=== PATIENT | female | born 1945 | race Hispanic/Latino ===

== ENCOUNTER 2019-03-25 00:47 | Emergency (ER) | payer MEDICARE, BC ==
[~2019-03-25] VITALS: Ht 154.9 cm; Wt 83.5 kg
--- OUTSIDE RECORDS SUMMARY | ~2019-03-25 | XMS | Clinical Summary ---
Demographics + + + | Address | [address] [place] [address] | | | [place], [place] [address] | + + + | Home Phone | | + + + | Preferred Language | Unknown | + + + | Marital Status | D | + + + | Scientologist Affiliation | Unknown | + + + | Race | White | + + + | Ethnic Group | or | + + + Author + + + | Author | [facility] | + + + | Organization | [facility] | + + + | Address | [address] | | | [place] [address] | + + + | Phone | Unavailable | + + + Care Team Providers + + + + | Care Beater Room Supervisor Name | Role | Phone | + + + + Unavailable | Unavailable | + + + + Conditions or Problems +---------+---------+---------+---------+---------+---------+---------+---------+---------+ | Problem | Problem | Onset | Status | Entry | Provide | Comment | Standar | Annotat | | Name | Code | Date | | Date | r | | d | e | | | | | | | | | Descrip | | | | | | | | | | tion | | +---------+---------+---------+---------+---------+---------+---------+---------+---------+ | VOLUME | E86.9 | | Inactiv | | Edward | | Volume | | | DEPLETI | (ICD-10 | /16 | e | /16 | Ottenhe | | depleti | | | ON | -) | | | | sheila MD | | on, | | | UNSPECI | | | | | | | unspeci | | | FIED | | | | | | | fied | | +---------+---------+---------+---------+---------+---------+---------+---------+---------+ | DIABETE | [id number] | | Active | | David | | Periphe | | | S | 05 | /02 | | /02 | [place] | | ral | | | MELLITU | (SNOMED | | | | DO | | circula | | | S, TYPE | CT) | | | | | | tory | | | II | | | | | | | disorde | | | WITH | | | | | | | r | | | PERIPHE | | | | | | | associa | | | RAL | | | | | | | bryce | | | ANGIOPA | | | | | | | with | | | THY, | | | | | | | type 2 | | | WITHOUT | | | | | | | diabete | | | | | | | | | | s | | | GANGREN | | | | | | | mellitu | | | E | | | | | | | s | | +---------+---------+---------+---------+---------+---------+---------+---------+---------+ | NAUSEA | [id number] | | Resolve | | Geetha | | Nausea | | | ALONE | | | d | | Patrick | | | | | | (SNOMED | | | | [facility] | | | | | | CT) | | | | | | | | +---------+---------+---------+---------+---------+---------+---------+---------+---------+ | VACCINA | [id number] | | Resolve | | Geetha | | Medicat | | | TION | 02 | | d | 03 | Patrick | | ion | | | FOR | (SNOMED | | | | [facility] | | given | | | STREP | CT) | | | | | | | | | PNEUMON | | | | | | | | | | IA WITH | | | | | | | | | | | | | | | | | | | | PREVNAR | | | | | | | | | | 13 | | | | | | | | | +---------+---------+---------+---------+---------+---------+---------+---------+---------+ | FLANK | [id number] | | Active | | Geetha | | Flank | | | PAIN | 05 | /01 | | /01 | [place] | | pain | | | | (SNOMED | | | | [facility] | | | | | | CT) | | | | | | | | +---------+---------+---------+---------+---------+---------+---------+---------+---------+ | VACCINA | [id number] | | Removed | | [facility] | | Medicat | | | TION | 02 | /03 | | /03 | [facility] | | ion | | | FOR | (SNOMED | | | | DNP PSYCHOMETRICIAN | | given | | | STREP | CT) | | | | | | | | | PNEUMON | | | | | | | | | | IA WITH | | | | | | | | | | | | | | | | | | | | PREVNAR | | | | | | | | | | 13 | | | | | | | | | +---------+---------+---------+---------+---------+---------+---------+---------+---------+ | OSTEOAR | [id number] | | Active | | Edna | | Osteoar | | | THRITIS | 07 | /16 | | /18 | [facility] | | thritis | | | , KNEE, | (SNOMED | | | | [facility] | | of | | | RIGHT | CT) | | | | | | knee | | +---------+---------+---------+---------+---------+---------+---------+---------+---------+ | CONSTIP | [id number] | | Active | | [facility] | | Constip | | | ATION | 8 | /13 | | /13 | [place] | | ation | | | | (SNOMED | | | | DNP PSYCHOMETRICIAN | | | | | | CT) | | | | | | | | +---------+---------+---------+---------+---------+---------+---------+---------+---------+ | TYPE 2 | E11.21 | | Active | | [facility] | | Type 2 | | | DIABETE | (ICD-10 | /19 | | /19 | [facility] | | diabete | | | S | -CM) | | | | DNP PSYCHOMETRICIAN | | s | | | MELLITU | | | | | | | mellitu | | | S WITH | | | | | | | s with | | | DIABETI | | | | | | | diabeti | | | C | | | | | | | c | | | NEPHROP | | | | | | | nephrop | | | ATHY | | | | | | | athy | | +---------+---------+---------+---------+---------+---------+---------+---------+---------+ | DIABETE | [id number] | | Inactiv | | [facility] | | Type 2 | | | S | 6 | /08 | e | /08 | [place] | | diabete | | | MELLITU | (SNOMED | | | | DNP PSYCHOMETRICIAN | | s | | | S, TYPE | CT) | | | | | | mellitu | | | II, ON | | | | | | | s | | | | | | | | | | | | | INSULIN | | | | | | | | | +---------+---------+---------+---------+---------+---------+---------+---------+---------+ | DEHYDRA | [id number] | | Resolve | | [facility] | | Dehydra | | | TION | 6 | / | d | /08 | [place] | | tion | | | | (SNOMED | | | | DNP PSYCHOMETRICIAN | | | | | | CT) | | | | | | | | +---------+---------+---------+---------+---------+---------+---------+---------+---------+ | DIZZINE | [id number] | | Inactiv | | [facility] | | Dizzine | | | SS | 03 | /08 | e | /08 | [place] | | ss | | | | (SNOMED | | | | DNP PSYCHOMETRICIAN | | | | | | CT) | | | | | | | | +---------+---------+---------+---------+---------+---------+---------+---------+---------+ | ANEMIA | [id number] | | Inactiv | | [facility] | | Anemia | | | | 00 | /10 | e | /10 | [place] | | | | | | (SNOMED | | | | DNP PSYCHOMETRICIAN | | | | | | CT) | | | | | | | | +---------+---------+---------+---------+---------+---------+---------+---------+---------+ | CONSTIP | [id number] | | Inactiv | | [facility] | | Constip | | | ATION | 8 | / | e | /13 | [place] | | ation | | | | (SNOMED | | | | DNP PSYCHOMETRICIAN | | | | | | CT) | | | | | | | | +---------+---------+---------+---------+---------+---------+---------+---------+---------+ | SYNCOPE | [id number] | | Resolve | | [facility] | | Syncope | | | | 07 | /07 | d | /10 | [place] | | | | | | (SNOMED | | | | DNP PSYCHOMETRICIAN | | | | | | CT) | | | | | | | | +---------+---------+---------+---------+---------+---------+---------+---------+---------+ | DYSPHAG | R13.10 | | Resolve | | [facility] | | Dysphag | | | IA | (ICD-10 | / | d | | [place] | | ia, | | | UNSPECI | -CM) | | | | DNP PSYCHOMETRICIAN | | unspeci | | | FIED | | | | | | | fied | | +---------+---------+---------+---------+---------+---------+---------+---------+---------+ | PARESTH | [id number] | | Inactiv | | [facility] | | Paresth | | | ESIA, | | | e | | [place] | | esia of | | | HANDS | (SNOMED | | | | DNP PSYCHOMETRICIAN | | hand | | | | CT) | | | | | | | | +---------+---------+---------+---------+---------+---------+---------+---------+---------+ | DIABETI | [id number] | | Inactiv | | [facility] | | Diabeti | | | C | 06 | | e | | [place] | | c | | | PERIPHE | (SNOMED | | | | DNP PSYCHOMETRICIAN | | periphe | | | RAL | CT) | | | | | | ral | | | NEUROPA | | | | | | | neuropa | | | THY | | | | | | | thy | | +---------+---------+---------+---------+---------+---------+---------+---------+---------+ | DYSPHAG | R13.10 | | Resolve | | [facility] | | Dysphag | | | IA | (ICD-10 | | d | /14 | [place] | | ia, | | | UNSPECI | -CM) | | | | DNP PSYCHOMETRICIAN | | unspeci | | | FIED | | | | | | | fied | | +---------+---------+---------+---------+---------+---------+---------+---------+---------+ | VAGINIT | [id number] | | Resolve | | [facility] | | Vaginit | | | IS | 1 | /31 | d | /31 | [place] | | is | | | | (SNOMED | | | | DNP PSYCHOMETRICIAN | | | | | | CT) | | | | | | | | +---------+---------+---------+---------+---------+---------+---------+---------+---------+ | DYSURIA | [id number] | | Resolve | | [facility] | | Dysuria | | | | 1 | /31 | d | /31 | [place] | | | | | | (SNOMED | | | | DNP PSYCHOMETRICIAN | | | | | | CT) | | | | | | | | +---------+---------+---------+---------+---------+---------+---------+---------+---------+ | EDEMA | [id number] | | Inactiv | | [facility] | | Edema | | | | 08 | | e | / | [place] | | | | | | (SNOMED | | | | DNP PSYCHOMETRICIAN | | | | | | CT) | | | | | | | | +---------+---------+---------+---------+---------+---------+---------+---------+---------+ | RENAL | [id number] | | Inactiv | | [facility] | | Acute | | | FAILURE | | | e | / | [place] | | renal | | | , ACUTE | (SNOMED | | | | DNP PSYCHOMETRICIAN | | failure | | | | CT) | | | | | | | | | | | | | | | | syndrom | | | | | | | | | | e | | +---------+---------+---------+---------+---------+---------+---------+---------+---------+ | DIABETE | [id number] | | Inactiv | | [facility] | | Periphe | | | S | | | e | | [place] | | ral | | | MELLITU | (SNOMED | | | | DNP PSYCHOMETRICIAN | | vascula | | | S, WITH | CT) | | | | | | r | | | | | | | | | | disorde | | | VASCULA | | | | | | | r due | | | R | | | | | | | to | | | COMPLIC | | | | | | | diabete | | | ATIONS | | | | | | | s | | | | | | | | | | mellitu | | | | | | | | | | s | | +---------+---------+---------+---------+---------+---------+---------+---------+---------+ | 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 | | [facility] | | Type 2 | | | ROPATHY | (ICD- | | e | / | [place] | | diabete | | | - | -CM) | | | | DNP PSYCHOMETRICIAN | | s | | | DIABETI | | | | | | | mellitu | | | C | | | | | | | s with | | | | | | | | | | diabeti | | | | | | | | | | c | | | | | | | | | | polyneu | | | | | | | | | | ropathy | | +---------+---------+---------+---------+---------+---------+---------+---------+---------+ | LOCALIZ | [id number] | | Resolve | | [facility] | | Disorde | | | ED | 09 | / | d | / | [place] | | r of | | | SWELLIN | (SNOMED | | | | DNP PSYCHOMETRICIAN | | forearm | | | G ON | CT) | | | | | | | | | BILATER | | | | | | | | | | AL | | | | | | | | | | FOREARM | | | | | | | | | | S | | | | | | | | | +---------+---------+---------+---------+---------+---------+---------+---------+---------+ | UTI | [id number] | | Resolve | | [facility] | | Urinary | | | | 5 | /13 | d | /13 | [place] | | tract | | | | (SNOMED | | | | DNP PSYCHOMETRICIAN | | infecti | | | | CT) | | | | | | ous | | | | | | | | | | disease | | +---------+---------+---------+---------+---------+---------+---------+---------+---------+ | TYPE 2 | E11.21 | | Inactiv | | [facility] | | Type 2 | | | DIABETE | (ICD-10 | / | e | / | [place] | | diabete | | | S | -CM) | | | | DNP PSYCHOMETRICIAN | | s | | | MELLITU | | | | | | | mellitu | | | S WITH | | | | | | | s with | | | DIABETI | | | | | | | diabeti | | | C | | | | | | | c | | | NEPHROP | | | | | | | nephrop | | | ATHY | | | | | | | athy | | +---------+---------+---------+---------+---------+---------+---------+---------+---------+ | DEMENTI | [id number] | | Inactiv | | [facility] | | Procedu | | | A | | | e | | [place] | | re | | | SCREENI | (SNOMED | | | | DNP PSYCHOMETRICIAN | | carried | | | NG | CT) | | | | | | out on | | | | | | | | | | | | | | | | | | | | subject | | +---------+---------+---------+---------+---------+---------+---------+---------+---------+ | CHANGE | [id number] | | Inactiv | | [facility] | | Altered | | | IN | 9 | /13 | e | /13 | [place] | | bowel | | | BOWEL | (SNOMED | | | | DNP PSYCHOMETRICIAN | | functio | | | HABITS | CT) | | | | | | n | | +---------+---------+---------+---------+---------+---------+---------+---------+---------+ | MILD | [id number] | | Inactiv | | [facility] | | Mild | | | COGNITI | | | e | | [place] | | cogniti | | | VE | (SNOMED | | | | DNP PSYCHOMETRICIAN | | ve | | | IMPAIRM | CT) | | | | | | disorde | | | ENT | | | | | | | r | | +---------+---------+---------+---------+---------+---------+---------+---------+---------+ | DIABETE | [id number] | | Inactiv | | [facility] | | Periphe | | | S | [id number] | /11 | e | / | [place] | | ral | | | MELLITU | (SNOMED | | | | DNP PSYCHOMETRICIAN | | neuropa | | | S, TYPE | CT) | | | | | | 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 | | | 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 | | | PERIPHE | | | | | | | diabete | | | RAL | | | | | | | s | | | NEUROPA | | | | | | | | | | THY, | | | | | | | | | | UNCONTR | | | | | | | | | | OLLED | | | | | | | | | +---------+---------+---------+---------+---------+---------+---------+---------+---------+ | IRON | D50.9 | | Active | | Julia | | Iron | | | DEFICIE | (ICD-10 | | | | Gabriele | | deficie | | | NCY | -CM) | | | | | | ncy | | | ANEMIA, | | | | | | | anemia, | | | | | | | | | | | | | UNSPECI | | | | | | | unspeci | | | FIED | | | | | | | fied | | +---------+---------+---------+---------+---------+---------+---------+---------+---------+ | DIABETE | [id number] | | Active | | David Paez | | Periphe | | | S | [id number] | /15 | | /15 | [facility] | | ral | | | MELLITU | (SNOMED | | | | MD FACE | | neuropa | | | S, TYPE | CT) | | | | FACP | | 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 | | | 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 | | | PERIPHE | | | | | | | diabete | | | RAL | | | | | | | s | | | NEUROPA | | | | | | | | | | THY, | | | | | | | | | | UNCONTR | | | | | | | | | | OLLED | | | | | | | | | +---------+---------+---------+---------+---------+---------+---------+---------+---------+ | MUSCLE | [id number] | | Active | | Christen | | Muscle | | | PAIN | 1 | | | / | J. | | pain | | | | (SNOMED | | | | [place] | | | | | | CT) | | | | ta PSYCHOMETRICIAN | | | | +---------+---------+---------+---------+---------+---------+---------+---------+---------+ | DIABETE | [id number] | | Removed | | David W | | Periphe | | | S | [id number] | /11 | | /12 | [facility] | | ral | | | MELLITU | (SNOMED | | | | MD FACE | | neuropa | | | S, TYPE | CT) | | | | FACP | | 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 | | | 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 | | | PERIPHE | | | | | | | diabete | | | RAL | | | | | | | s | | | NEUROPA | | | | | | | | | | THY, | | | | | | | | | | UNCONTR | | | | | | | | | | OLLED | | | | | | | | | +---------+---------+---------+---------+---------+---------+---------+---------+---------+ | MILD | [id number] | | Removed | | Maulik | | Mild | | | COGNITI | 03 | | | | Mendels | | cogniti | | | VE | (SNOMED | | | | on MD | | ve | | | IMPAIRM | CT) | | | | | | disorde | | | ENT | | | | | | | r | | +---------+---------+---------+---------+---------+---------+---------+---------+---------+ | HYSTERE | Z90.710 | | Active | | Maulik | | Acquire | | | CTOMY, | | | | | Mendels | | d | | | SURVEIL | (ICD-10 | | | | on MD | | absence | | | ANDERSON | -CM) | | | | | | of | | | | | | | | | | both | | | | | | | | | | cervix | | | | | | | | | | and | | | | | | | | | | uterus | | +---------+---------+---------+---------+---------+---------+---------+---------+---------+ | COLONIC | [id number] | | Active | | Emeka | | Adenoma | | | | 06 | / | | | Petre | | tous | | | POLYPS, | (SNOMED | | | | MD | | polyp | | | | CT) | | | | | | of | | | ADENOMA | | | | | | | colon | | | TOUS | | | | | | | | | +---------+---------+---------+---------+---------+---------+---------+---------+---------+ | CONSTIP | [id number] | | Removed | | Emeka | | Constip | | | ATION | 8 | / | | / | Petre | | ation | | | | (SNOMED | | | | MD | | | | | | CT) | | | | | | | | +---------+---------+---------+---------+---------+---------+---------+---------+---------+ | CHANGE | [id number] | | Removed | | Emeka | | Altered | | | IN | 9 | /13 | | /13 | Petre | | bowel | | | BOWEL | (SNOMED | | | | MD | | functio | | | HABITS | CT) | | | | | | n | | +---------+---------+---------+---------+---------+---------+---------+---------+---------+ | DECREAS | [id number] | | Active | | Emeka | | Decreas | | | ED | 6 | | | 13 | Petre | | e in | | | APPETIT | (SNOMED | | | | MD | | appetit | | | E | CT) | | | | | | e | | +---------+---------+---------+---------+---------+---------+---------+---------+---------+ | WEIGHT | [id number] | | Active | | Emeka | | Abnorma | | | LOSS | 01 | | | | Petre | | l | | | ABNORMA | (SNOMED | | | | MD | | weight | | | L | CT) | | | | | | loss | | +---------+---------+---------+---------+---------+---------+---------+---------+---------+ | NAUSEA | [id number] | | Removed | | Emeka | | Nausea | | | ALONE | 07 | /13 | | /13 | Petre | | | | | | (SNOMED | | | | MD | | | | | | CT) | | | | | | | | +---------+---------+---------+---------+---------+---------+---------+---------+---------+ | RECTAL | [id number] | | Active | | Emeka | | Rectal | | | BLEEDIN | 2 | | | | Petre | | hemorrh | | | G | (SNOMED | | | | MD | | age | | | | CT) | | | | | | | | +---------+---------+---------+---------+---------+---------+---------+---------+---------+ | DEMENTI | [id number] | | Active | | Christen | | Dementi | | | A | 6 | /10 | | /10 | J. | | a | | | WITHOUT | (SNOMED | | | | [place] | | | | | | CT) | | | | ta PSYCHOMETRICIAN | | | | | BEHAVIO | | | | | | | | | | RAL | | | | | | | | | | DISTURB | | | | | | | | | | ANCE | | | | | | | | | +---------+---------+---------+---------+---------+---------+---------+---------+---------+ | CHRONIC | [id number] | | Active | | Christen | | Chronic | | | | 03 | /10 | | /10 | J. | | | | | PROGRES | (SNOMED | | | | [place] | | progres | | | SIVE | CT) | | | | ta PSYCHOMETRICIAN | | sive | | | RENAL | | | | | | | renal | | | FAILURE | | | | | | | failure | | +---------+---------+---------+---------+---------+---------+---------+---------+---------+ | ANEMIA | [id number] | | Removed | | Christ[facility] | | Anemia | | | | 00 | /10 | | /10 | J. | | | | | | (SNOMED | | | | [place] | | | | | | CT) | | | | ta PSYCHOMETRICIAN | | | | +---------+---------+---------+---------+---------+---------+---------+---------+---------+ | DEMENTI | [id number] | | Removed | | Christen | | Procedu | | | A | 03 | / | | | J. | | re | | | SCREENI | (SNOMED | | | | [place] | | carried | | | NG | CT) | | | | ta PSYCHOMETRICIAN | | out on | | | | | | | | | | | | | | | | | | | | subject | | +---------+---------+---------+---------+---------+---------+---------+---------+---------+ | FALL | [id number] | | Active | | Christen | | At risk | | | RISK | 07 | /21 | | /22 | J. | | for | | | | (SNOMED | | | | [place] | | falls | | | | CT) | | | | ta PSYCHOMETRICIAN | | | | +---------+---------+---------+---------+---------+---------+---------+---------+---------+ | DIABETE | [id number] | | Resolve | | Christen | | Periphe | | | S | [id number] | /14 | d | /15 | J. | | ral | | | MELLITU | (SNOMED | | | | [place] | | neuropa | | | S, TYPE | CT) | | | | ta PSYCHOMETRICIAN | | 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 | | | 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 | | | PERIPHE | | | | | | | diabete | | | RAL | | | | | | | s | | | NEUROPA | | | | | | | | | | THY, | | | | | | | | | | UNCONTR | | | | | | | | | | OLLED | | | | | | | | | +---------+---------+---------+---------+---------+---------+---------+---------+---------+ | CORNS | [id number] | | Inactiv | | Kali | | Corns | | | AND | 00 | / | e | / | [facility] | | and | | | CALLOSI | (SNOMED | | | | DPM | | callus | | | TIES | CT) | | | | | | | | +---------+---------+---------+---------+---------+---------+---------+---------+---------+ | HAMMER | [id number] | | Active | | Kali | | Hammer | | | TOE, | 08 | | | | [facility] | | toe | | | OTHER, | (SNOMED | | | | DPM | | | | | ACQUIRE | CT) | | | | | | | | | D | | | | | | | | | +---------+---------+---------+---------+---------+---------+---------+---------+---------+ | HALLUX | [id number] | | Active | | [facility]ali | | Acquire | | | VALGUS, | | | | | [facility] | | d | | | | (SNOMED | | | | DPM | | hallux | | | ACQUIRE | CT) | | | | | | valgus | | | D | | | | | | | | | +---------+---------+---------+---------+---------+---------+---------+---------+---------+ | POLYNEU | E11.42 | | Removed | | Kali | | 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 | | | | [facility] | | diabete | | | - | -CM) | | | | DPM | | s | | | DIABETI | | | | | | | mellitu | | | C | | | | | | | s with | | | | | | | | | | diabeti | | | | | | | | | | c | | | | | | | | | | polyneu | | | | | | | | | | ropathy | | +---------+---------+---------+---------+---------+---------+---------+---------+---------+ | DIABETE | [id number] | | Removed | | Kali | | Periphe | | | S | 02 | | | | [facility] | | ral | | | MELLITU | (SNOMED | | | | DPM | | vascula | | | S, WITH | CT) | | | | | | r | | | | | | | | | | disorde | | | VASCULA | | | | | | | r due | | | R | | | | | | | to | | | COMPLIC | | | | | | | diabete | | | ATIONS | | | | | | | s | | | | | | | | | | mellitu | | | | | | | | | | s | | +---------+---------+---------+---------+---------+---------+---------+---------+---------+ | ONYCHOM | [id number] | | Active | | Kali | | Onychom | | | YCOSIS | 08 | /01 | | /01 | [facility] | | ycosis | | | | (SNOMED | | | | DPM | | | | | | CT) | | | | | | | | +---------+---------+---------+---------+---------+---------+---------+---------+---------+ | HEARTBU | [id number] | | Active | | Tiesha | | Heartbu | | | RN | 0 | / | | /19 | | | rn | | | | (SNOMED | | | | Maria Isabel | | | | | | CT) | | | | MD | | | | +---------+---------+---------+---------+---------+---------+---------+---------+---------+ | TYPE 2 | [id number] | | Active | | Tiesha | | Disorde | | | DIABETE | 03 | /19 | | /19 | | | r due | | | S | (SNOMED | | | | Maria Isabel | | to type | | | MELLITU | CT) | | | | MD | | 2 | | | S WITH | | | | | | | diabete | | | HYPERGL | | | | | | | s | | | YCEMIA | | | | | | | mellitu | | | | | | | | | | s | | +---------+---------+---------+---------+---------+---------+---------+---------+---------+ | TYPE 2 | E11.21 | | Removed | | Tiesha | | Type 2 | | | DIABETE | (ICD-10 | /19 | | /19 | | | diabete | | | S | -CM) | | | | [place] | | s | | | MELLITU | | | | | MD | | mellitu | | | S WITH | | | | | | | s with | | | DIABETI | | | | | | | diabeti | | | C | | | | | | | c | | | NEPHROP | | | | | | | nephrop | | | ATHY | | | | | | | athy | | +---------+---------+---------+---------+---------+---------+---------+---------+---------+ | UTI | [id number] | | Removed | | [facility] | | Urinary | | | | 5 | /13 | | /13 | [place] | | tract | | | | (SNOMED | | | | auff | | infecti | | | | CT) | | | | PSYCHOMETRICIAN | | ous | | | | | | | | | | disease | | +---------+---------+---------+---------+---------+---------+---------+---------+---------+ | LOCALIZ | [id number] | | Removed | | [place] | | Disorde | | | ED | 09 | | | | [place] | | r of | | | SWELLIN | (SNOMED | | | | RN | | forearm | | | G ON | CT) | | | | | | | | | BILATER | | | | | | | | | | AL | | | | | | | | | | FOREARM | | | | | | | | | | S | | | | | | | | | +---------+---------+---------+---------+---------+---------+---------+---------+---------+ | LIPOMA | [id number] | | Active | | Lauranc | | Lipoma | | | | 2 | /14 | | /14 | e W | | (clinic | | | | (SNOMED | | | | Lila | | al) | | | | CT) | | | | MD | | | | +---------+---------+---------+---------+---------+---------+---------+---------+---------+ | VITAMIN | [id number] | | Active | | David W | | Vitamin | | | D | 6 | /14 | | /15 | [facility] | | D | | | DEFICIE | (SNOMED | | | | MD FACE | | deficie | | | [facility] | CT) | | | | FACP | | ncy | | +---------+---------+---------+---------+---------+---------+---------+---------+---------+ | OBESITY | [id number] | | Active | | David Paez | | Obesity | | | , BMI | 01 | /14 | | /15 | [facility] | | | | | 35-39.9 | (SNOMED | | | | MD FACE | | | | | , ADULT | CT) | | | | FACP | | | | +---------+---------+---------+---------+---------+---------+---------+---------+---------+ | DIABETE | [id number] | | Removed | | David Paez | | Periphe | | | S | [id number] | /14 | | /15 | [facility] | | ral | | | MELLITU | (SNOMED | | | | MD FACE | | neuropa | | | S, TYPE | CT) | | | | FACP | | 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 | | | 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 | | | PERIPHE | | | | | | | diabete | | | RAL | | | | | | | s | | | NEUROPA | | | | | | | | | | THY, | | | | | | | | | | UNCONTR | | | | | | | | | | OLLED | | | | | | | | | +---------+---------+---------+---------+---------+---------+---------+---------+---------+ | HALLUX | [id number] | | Inactiv | | Kali | | Acquire | | | VALGUS, | 1 | / | e | /01 | [facility] | | d | | | | (SNOMED | | | | DPM | | hallux | | | ACQUIRE | CT) | | | | | | valgus | | | D | | | | | | | | | +---------+---------+---------+---------+---------+---------+---------+---------+---------+ | HAMMER | [id number] | | Inactiv | | Kali | | Hammer | | | TOE, | 08 | | e | / | [facility] | | toe | | | OTHER, | (SNOMED | | | | DPM | | | | | ACQUIRE | CT) | | | | | | | | | D | | | | | | | | | +---------+---------+---------+---------+---------+---------+---------+---------+---------+ | ONYCHOM | [id number] | | Inactiv | | Kali | | Onychom | | | YCOSIS | 08 | / | e | / | [facility] | | ycosis | | | | (SNOMED | | | | DPM | | | | | | CT) | | | | | | | | +---------+---------+---------+---------+---------+---------+---------+---------+---------+ | 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 | | Kali | | 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 | / | Palacio | | diabete | | | - | -CM) | | | | DPM | | s | | | DIABETI | | | | | | | mellitu | | | C | | | | | | | s with | | | | | | | | | | diabeti | | | | | | | | | | c | | | | | | | | | | polyneu | | | | | | | | | | ropathy | | +---------+---------+---------+---------+---------+---------+---------+---------+---------+ | DIABETE | [id number] | | Inactiv | | Kali | | Periphe | | | S | 02 | | e | / | Palacio | | ral | | | MELLITU | (SNOMED | | | | DPM | | vascula | | | S, WITH | CT) | | | | | | r | | | | | | | | | | disorde | | | VASCULA | | | | | | | r due | | | R | | | | | | | to | | | COMPLIC | | | | | | | diabete | | | ATIONS | | | | | | | s | | | | | | | | | | mellitu | | | | | | | | | | s | | +---------+---------+---------+---------+---------+---------+---------+---------+---------+ | SCREENI | [id number] | | Resolve | | Lauranc | | Depress | | | NG FOR | 06 | /10 | d | /10 | e W | | ion | | | DEPRESS | (SNOMED | | | | Lila | | screeni | | | ION | CT) | | | | MD | | ng | | +---------+---------+---------+---------+---------+---------+---------+---------+---------+ | SCREENI | [id number] | | Resolve | | Lauranc | | Screeni | | | NG FOR | 05 | /10 | d | /10 | e W | | ng for | | | UNSPECI | (SNOMED | | | | Lila | | disorde | | | FIED | CT) | | | | MD | | r | | | CONDITI | | | | | | | | | | ON | | | | | | | | | +---------+---------+---------+---------+---------+---------+---------+---------+---------+ | SCREENI | [id number] | | Resolve | | Lauranc | | Alcohol | | | NG FOR | 01 | /10 | d | /10 | e W | | | | | ALCOHOL | (SNOMED | | | | Lila | | consump | | | ISM | CT) | | | | MD | | tion | | | | | | | | | | screeni | | | | | | | | | | ng | | +---------+---------+---------+---------+---------+---------+---------+---------+---------+ | SCREENI | [id number] | | Removed | | Geetha | | Alcohol | | | NG FOR | 01 | /10 | | /10 | Patrick | | | | | ALCOHOL | (SNOMED | | | | [facility] | | consump | | | ISM | CT) | | | | | | tion | | | | | | | | | | screeni | | | | | | | | | | ng | | +---------+---------+---------+---------+---------+---------+---------+---------+---------+ | SCREENI | [id number] | | Removed | | Geetha | | Screeni | | | NG FOR | 05 | /10 | | /10 | Patrick | | ng for | | | UNSPECI | (SNOMED | | | | [facility] | | disorde | | | FIED | CT) | | | | | | r | | | CONDITI | | | | | | | | | | ON | | | | | | | | | +---------+---------+---------+---------+---------+---------+---------+---------+---------+ | SCREENI | [id number] | | Removed | 2015/12 | Geetha | | Depress | | | NG FOR | 06 | /10 | | /10 | Patrick | | ion | | | DEPRESS | (SNOMED | | | | [facility] | | screeni | | | ION | CT) | | | | | | ng | | +---------+---------+---------+---------+---------+---------+---------+---------+---------+ | RENAL | [id number] | | Removed | | Lauranc | | Acute | | | FAILURE | 1 | | | | e W | | renal | | | , ACUTE | (SNOMED | | | | Lila | | failure | | | | CT) | | | | MD | | | | | | | | | | | | syndrom | | | | | | | | | | e | | +---------+---------+---------+---------+---------+---------+---------+---------+---------+ | EDEMA | [id number] | | Removed | | Lauranc | | Edema | | | | 08 | / | | / | e W | | | | | | (SNOMED | | | | Lila | | | | | | CT) | | | | MD | | | | +---------+---------+---------+---------+---------+---------+---------+---------+---------+ | RENAL | [id number] | | Active | | Luz | | 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 | | /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 | | | CIENCY | (SNOMED | | | | RN | | | | | | CT) | | | | | | syndrom | | | | | | | | | | e | | +---------+---------+---------+---------+---------+---------+---------+---------+---------+ | PERIPHE | [id number] | | Active | | Lauranc | | Periphe | | | RAL | 06 | /15 | | /15 | e W | | ral | | | VASCULA | (SNOMED | | | | Lila | | vascula | | | R | CT) | | | | MD | | r | | | DISEASE | | | | | | | disease | | +---------+---------+---------+---------+---------+---------+---------+---------+---------+ | CANDIDI | [id number] | | Active | | Susanna | | Candidi | | | ASIS, | 6 | / | | / | Medel | | asis of | | | SKIN | (SNOMED | | | | MD | | skin | | | | CT) | | | | | | | | +---------+---------+---------+---------+---------+---------+---------+---------+---------+ | DYSURIA | [id number] | | Removed | | Erica | | Dysuria | | | | 1 | /31 | | /31 | Paul | | | | | | (SNOMED | | | | MA | | | | | | CT) | | | | | | | | +---------+---------+---------+---------+---------+---------+---------+---------+---------+ | VAGINIT | [id number] | | Removed | | Erica | | Vaginit | | | IS | 1 | / | | / | Paul | | is | | | | (SNOMED | | | | MA | | | | | | CT) | | | | | | | | +---------+---------+---------+---------+---------+---------+---------+---------+---------+ | RLQ | [id number] | | Resolve | | Lauranc | | Right | | | PAIN | 02 | | d | /11 | e W | | lower | | | | (SNOMED | | | | Lila | | quadran | | | | CT) | | | | MD | | t pain | | +---------+---------+---------+---------+---------+---------+---------+---------+---------+ | ABDOMIN | [id number] | | Resolve | | Lauranc | | Abdomin | | | AL | 1 | | d | /11 | e W | | al pain | | | PAIN, | (SNOMED | | | | Lila | | | | | UNSPECI | CT) | | | | MD | | | | | FIED | | | | | | | | | | SITE | | | | | | | | | +---------+---------+---------+---------+---------+---------+---------+---------+---------+ | NEED | Z23 | | Resolve | | Lauranc | | Encount | | | PROPHYL | (ICD-10 | | d | | e W | | er for | | | ACTIC | -CM) | | | | Lila | | immuniz | | | VACCINA | | | | | MD | | ation | | | TION&IN | | | | | | | | | | OCULATI | | | | | | | | | | ON FLU | | | | | | | | | +---------+---------+---------+---------+---------+---------+---------+---------+---------+ | KNEE | [id number] | | Active | | Lauranc | | Knee | | | PAIN | 3 | / | | /14 | e W | | pain | | | | (SNOMED | | | | Lila | | | | | | CT) | | | | MD | | | | +---------+---------+---------+---------+---------+---------+---------+---------+---------+ | Questio | [id number] | | Correct | | Lauranc | | Vertebr | | | n of | 08 | /25 | ion | /25 | e W | | obasila | | | VERTEBR | (SNOMED | | | | Lila | | r | | | OBASILA | CT) | | | | MD | | artery | | | R | | | | | | | syndrom | | | ARTERY | | | | | | | e | | | SYNDROM | | | | | | | | | | E | | | | | | | | | +---------+---------+---------+---------+---------+---------+---------+---------+---------+ | VERTEBR | | | Active | | Lauranc | | Vertebr | | | OBASILA | 08 | /14 | | /14 | e W | | obasila | | | R | (SNOMED | | | | Lila | | r | | | ARTERY | CT) | | | | MD | | artery | | | SYNDROM | | | | | | | 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 | | | | | | | e | | +---------+---------+---------+---------+---------+---------+---------+---------+---------+ | VERTIGO | [id number] | | Active | | Luz | | Vertigo | | | | 01 | /28 | | /03 | Asad | | | | | | (SNOMED | | | | RN | | | | | | CT) | | | | | | | | +---------+---------+---------+---------+---------+---------+---------+---------+---------+ | CHEST | [id number] | | Inactiv | | Genny | | Chest | | | PAIN | 9 | | e | /02 | Kaufman | | pain | | | | (SNOMED | | | | | | | | | | CT) | | | | | | | | +---------+---------+---------+---------+---------+---------+---------+---------+---------+ | CHEST | [id number] | | Inactiv | | Lauranc | | Acute | | | PAIN, | 01 | /14 | e | /14 | e W | | chest | | | ACUTE | (SNOMED | | | | Lila | | pain | | | | CT) | | | | MD | | | | +---------+---------+---------+---------+---------+---------+---------+---------+---------+ | DYSPHAG | R13.10 | | Removed | | Patricia | | Dysphag | | | IA | (ICD-10 | | | /14 | | | ia, | | | UNSPECI | -CM) | | | | Stewart | | unspeci | | | FIED | | | | | [facility] | | fied | | +---------+---------+---------+---------+---------+---------+---------+---------+---------+ | CEREBRO | [id number] | | Active | | Rogers | | Cerebro | | | VASCULA | 0 | / | | | Laith | | vascula | | | R | (SNOMED | | | | MD | | r | | | DISEASE | CT) | | | | | | disease | | +---------+---------+---------+---------+---------+---------+---------+---------+---------+ | History | [id number] | | Active | | Rogers | | Cerebra | | | of | 07 | 16 | | /16 | Laith | | l | | | CEREBRA | (SNOMED | | | | MD | | infarct | | | L | CT) | | | | | | ion due | | | EMBOLIS | | | | | | | to | | | M WITH | | | | | | | embolis | | | CEREBRA | | | | | | | m of | | | L | | | | | | | cerebra | | | INFARCT | | | | | | | l | | | ION | | | | | | | arterie | | | | | | | | | | s | | +---------+---------+---------+---------+---------+---------+---------+---------+---------+ | NEED | Z23 | | Removed | | Lauranc | | Encount | | | PROPHYL | (ICD-10 | | | / | e W | | er for | | | ACTIC | -CM) | | | | Lila | | immuniz | | | VACCINA | | | | | MD | | ation | | | TION&IN | | | | | | | | | | OCULATI | | | | | | | | | | ON FLU | | | | | | | | | +---------+---------+---------+---------+---------+---------+---------+---------+---------+ | DIABETI | [id number] | | Removed | | Rogers | | Diabeti | | | C | | | | | Laith | | c | | | PERIPHE | (SNOMED | | | | MD | | periphe | | | RAL | CT) | | | | | | ral | | | NEUROPA | | | | | | | neuropa | | | THY | | | | | | | thy | | +---------+---------+---------+---------+---------+---------+---------+---------+---------+ | HYPERLI | [id number] | | Active | | Rogers | | Hyperli | | | PIDEMIA | 4 | | | | Laith | | pidemia | | | | (SNOMED | | | | MD | | | | | | CT) | | | | | | | | +---------+---------+---------+---------+---------+---------+---------+---------+---------+ | History | [id number] | | Active | | Rogers | | Brainst | | | of | 05 | /25 | | /25 | Laith | | em | | | BRAIN | (SNOMED | | | | MD | | stroke | | | STEM | CT) | | | | | | syndrom | | | STROKE | | | | | | | e | | +---------+---------+---------+---------+---------+---------+---------+---------+---------+ | CEREBRA | [id number] | | Correct | | Rogers | | Cerebra | | | L | 07 | /16 | ion | /16 | Laith | | l | | | EMBOLIS | (SNOMED | | | | MD | | infarct | | | M WITH | CT) | | | | | | ion due | | | CEREBRA | | | | | | | to | | | L | | | | | | | embolis | | | INFARCT | | | | | | | m of | | | ION | | | | | | | cerebra | | | | | | | | | | l | | | | | | | | | | arterie | | | | | | | | | | s | | +---------+---------+---------+---------+---------+---------+---------+---------+---------+ | ABDOMIN | [id number] | | Removed | | Patricia | | Abdomin | | | AL | 1 | | | /11 | | | al pain | | | PAIN, | (SNOMED | | | | Stewart | | | | | UNSPECI | CT) | | | | [facility] | | | | | FIED | | | | | | | | | | SITE | | | | | | | | | +---------+---------+---------+---------+---------+---------+---------+---------+---------+ | RLQ | [id number] | | Removed | | Patricia | | Right | | | PAIN | 02 | | | /11 | | | lower | | | | (SNOMED | | | | Stewart | | quadran | | | | CT) | | | | [facility] | | t pain | | +---------+---------+---------+---------+---------+---------+---------+---------+---------+ | DYSPHAG | R13.10 | | Removed | | Lauranc | | Dysphag | | | IA | (ICD-10 | | | / | e W | | ia, | | | UNSPECI | -CM) | | | | Lila | | unspeci | | | FIED | | | | | MD | | fied | | +---------+---------+---------+---------+---------+---------+---------+---------+---------+ | CARPAL | [id number] | | Active | | Rogers | | Carpal | | | TUNNEL | 9 | /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 | | | | MD | | 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, LEFT | CT) | | | | | | e | | +---------+---------+---------+---------+---------+---------+---------+---------+---------+ | Questio | [id number] | | Removed | | Rogers | | Vertebr | | | n of | 08 | / | | / | Laith | | obasila | | | VERTEBR | (SNOMED | | | | MD | | r | | | OBASILA | CT) | | | | | | artery | | | R | | | | | | | syndrom | | | ARTERY | | | | | | | e | | | SYNDROM | | | | | | | | | | E | | | | | | | | | +---------+---------+---------+---------+---------+---------+---------+---------+---------+ | GAIT | [id number] | | Active | | Rogers | | Abnorma | | | IMBALAN | 2 | / | | / | Laith | | l gait | | | CE | (SNOMED | | | | MD | | | | | | CT) | | | | | | | | +---------+---------+---------+---------+---------+---------+---------+---------+---------+ | BRAIN | [id number] | | Correct | | Rogers | | Brainst | | | STEM | 05 | | ion | | Laith | | em | | | STROKE | (SNOMED | | | | MD | | stroke | | | | CT) | | | | | | syndrom | | | | | | | | | | e | | +---------+---------+---------+---------+---------+---------+---------+---------+---------+ | PARESTH | [id number] | | Removed | | Rogers | | Paresth | | | ESIA, | | | | | Laith | | esia of | | | HANDS | (SNOMED | | | | MD | | hand | | | | CT) | | | | | | | | +---------+---------+---------+---------+---------+---------+---------+---------+---------+ | PERIPHE | [id number] | | Correct | | Rogers | | Periphe | | | RAL | | | ion | /25 | Laith | | ral | | | NEUROPA | (SNOMED | | | | MD | | nerve | | | THY | CT) | | | | | | disease | | +---------+---------+---------+---------+---------+---------+---------+---------+---------+ | THYROID | [id number] | | Active | | Luz | | Thyroid | | | NODULE | 05 | /20 | | /20 | [place] | | nodule | | | | (SNOMED | | | | [facility] | | | | | | CT) | | | | | | | | +---------+---------+---------+---------+---------+---------+---------+---------+---------+ | TIA | [id number] | | Active | | Lauranc | | Transie | | | | 00 | /07 | | /10 | e W | | nt | | | | (SNOMED | | | | Lila | | cerebra | | | | CT) | | | | MD | | l | | | | | | | | | | ischemi | | | | | | | | | | a | | +---------+---------+---------+---------+---------+---------+---------+---------+---------+ | SYNCOPE | [id number] | | Removed | | Lauranc | | Syncope | | | | 07 | /07 | | /10 | e W | | | | | | (SNOMED | | | | Lila | | | | | | CT) | | | | MD | | | | +---------+---------+---------+---------+---------+---------+---------+---------+---------+ | GASTROP | [id number] | | Active | | Lauranc | | 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 | | | | (SNOMED | | | | Lila | | syndrom | | | | CT) | | | | MD | | e | | +---------+---------+---------+---------+---------+---------+---------+---------+---------+ | CONSTIP | [id number] | | Active | | Lauranc | | Chronic | | | ATION, | | / | | 08 | e W | | | | | CHRONIC | (SNOMED | | | | Lila | | constip | | | | CT) | | | | MD | | ation | | +---------+---------+---------+---------+---------+---------+---------+---------+---------+ | POSTHER | [id number] | | Active | | Lauranc | | Posther | | | 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 | (SNOMED | | | | Lila | | neuralg | | | IA | CT) | | | | MD | | ia | | +---------+---------+---------+---------+---------+---------+---------+---------+---------+ | DIZZINE | [id number] | | Removed | | Lauranc | | Dizzine | | | SS | 03 | /08 | | /08 | e W | | ss | | | | (SNOMED | | | | Lila | | | | | | CT) | | | | MD | | | | +---------+---------+---------+---------+---------+---------+---------+---------+---------+ | DEHYDRA | [id number] | | Removed | | Lauranc | | Dehydra | | | TION | 6 | /08 | | /08 | e W | | tion | | | | (SNOMED | | | | Lila | | | | | | CT) | | | | MD | | | | +---------+---------+---------+---------+---------+---------+---------+---------+---------+ | DIABETE | [id number] | | Removed | | Lauranc | | Type 2 | | | S | 6 | /08 | | /08 | e W | | diabete | | | MELLITU | (SNOMED | | | | Lila | | s | | | S, TYPE | CT) | | | | MD | | mellitu | | | II, ON | | | | | | | s | | | | | | | | | | | | | INSULIN | | | | | | | | | +---------+---------+---------+---------+---------+---------+---------+---------+---------+ | HYPERTE | [id number] | | Active | | Lauranc | | Hyperte | | | NSION | 3 | /08 | | /08 | e W | | nsive | | | | (SNOMED | | | | Lila | | disorde | | | | CT) | | | | MD | | r | | +---------+---------+---------+---------+---------+---------+---------+---------+---------+ Medications + + + + + + + + | Medication | Instructio | Start Date | Stop Date | Generic | NDC | Provider | | | ns | | | Name | | | + + + + + + + + | RELION | Use to | | | INSULIN | [id number] | [facility] | | INSULIN | inject | | | SYRINGE-NE | 2 | Ankur DNP | | SYRINGE | insulin 5 | | | EDLE U-100 | | PSYCHOMETRICIAN | | 31G X | times | | | | | | | 10/09" 0.5 | daily Dx | | | | | | | ML | Code | | | | | | | | E11.40 | | | | | | + + + + + + + + | HUMALOG | 12 Units | | | INSULIN | [id number] | [facility] | | KWIKPEN | before | | | LISPRO | 9 | Ankur DNP | | 100 | meals | | | | | PSYCHOMETRICIAN | | UNIT/ML | SS:150-175 | | | | | | | SOPN | :2U,176-20 | | | | | | | | 0:4U, | | | | | | | | 201-250: | | | | | | | | 6U, | | | | | | | | 251-300: | | | | | | | | 8U, If | | | | | | | | greater | | | | | | | | than 300 | | | | | | | | please | | | | | | | | call. Max | | | | | | | | daily 70 | | | | | | | | units | | | | | | + + + + + + + + | LINZESS | Take one | | | LINACLOTID | [id number] | [facility] | | 145 MCG | tablet | | | E | 0 | Ankur DNP | | CAPS | daily as | | | | | PSYCHOMETRICIAN | | | needed for | | | | | | | | | | | | | | | | constipati | | | | | | | | on. | | | | | | + + + + + + + + | COLACE 100 | 1 pill | | | DOCUSATE | [id number] | [facility] | | MG CAPS | twice | | | SODIUM | 0 | Ankur DNP | | | daily for | | | | | PSYCHOMETRICIAN | | | soft | | | | | | | | stools | | | | | | + + + + + + + + | VITAMIN D | Take one | | | CHOLECALCI | [id number] | [facility] | | 1000 UNIT | tablet | | | FEROL | 1 | Ankur DNP | | TABS | daily in | | | | | PSYCHOMETRICIAN | | | the AM | | | | | | + + + + + + + + | VOLTAREN 1 | apply 3-4 | | | DICLOFENAC | [id number] | [facility] | | % GEL | times QD | | | SODIUM | 7 | Ankur DNP | | | PRN pain, | | | | | PSYCHOMETRICIAN | | | max 4 | | | | | | | | grams per | | | | | | | | applicatio | | | | | | | | n | | | | | | + + + + + + + + | CLONAZEPAM | Take one | | | CLONAZEPAM | [id number] | [facility] | | 0.5 MG | tablet | | | | 1 | Ankur DNP | | TABS | every 24 | | | | | PSYCHOMETRICIAN | | | hours as | | | | | | | | needed for | | | | | | | | anxiety | | | | | | + + + + + + + + | LASIX 80 | 1 tab by | | | FUROSEMIDE | [id number] | [facility] | | MG TABS | mouth one | | | | 5 | Ankur DNP | | | time per | | | | | PSYCHOMETRICIAN | | | day in the | | | | | | | | AM | | | | | | + + + + + + + + | LYRICA 100 | TAKE 1 | | | PREGABALIN | [id number] | [facility] | | MG CAPS | CAPSULE BY | | | | 8 | Ankur DNP | | | MOUTH | | | | | PSYCHOMETRICIAN | | | THREE | | | | | | | | TIMES | | | | | | | | DAILY FOR | | | | | | | | | | | | | | | | NEUROPATHY | | | | | | + + + + + + + + | IRBESARTAN | TAKE 1 | | | IRBESARTAN | [id number] | [facility] | | 300 MG | TABLET BY | | | | 3 | Ankur DNP | | TABS | MOUTH ONCE | | | | | PSYCHOMETRICIAN | | | DAILY | | | | | | + + + + + + + + | EQ STOOL | TAKE 1 | | | DOCUSATE | [id number] | [facility] | | SOFTENER | CAPSULE BY | | | SODIUM | 5 | Ankur DNP | | 100 MG | MOUTH | | | | | PSYCHOMETRICIAN | | CAPS | TWICE | | | | | | | | DAILY FOR | | | | | | | | SOFT | | | | | | | | STOOLS | | | | | | + + + + + + + + | BASAGLAR | INJECT 68 | | | INSULIN | [id number] | [facility] | | KWIKPEN | UNITS | | | GLARGINE | 9 | Ankur DNP | | 100 | SUBCUTANEO | | | | | PSYCHOMETRICIAN | | UNIT/ML | USLY IN | | | | | | | SOPN | THE | | | | | | | | MORNING(34 | | | | | | | | UNITS ON | | | | | | | | EACH SIDE) | | | | | | + + + + + + + + | PANTOPRAZO | Take one | | | PANTOPRAZO | [id number] | [facility] | | LE SODIUM | tablet by | | | LE SODIUM | 8 | Ankur DNP | | 40 MG TBEC | mouth once | | | | | PSYCHOMETRICIAN | | | daily | | | | | | + + + + + + + + | NYSTATIN-T | Apply thin | | | NYSTATIN-T | 9195104976 | [facility] | | RIAMCINOLO | layer to | | | RIAMCINOLO | 5 | Ankur DNP | | NE | affected | | | NE | | PSYCHOMETRICIAN | | 898628-2.1 | area BID | | | | | | | UNIT/GM-% | prn for | | | | | | | CREA | itching | | | | | | + + + + + + + + | LINZESS | Take one | | | LINACLOTID | [id number] | [facility] | | 145 MCG | tablet | | | E | 0 | Ankur DNP | | CAPS | daily for | | | | | PSYCHOMETRICIAN | | | constipati | | | | | | | | on. | | | | | | + + + + + + + + | FUROSEMIDE | TAKE 1 | | | FUROSEMIDE | [id number] | [facility] | | 80 MG | TABLET BY | | | | 5 | Ankur DNP | | TABS | MOUTH ONCE | | | | | PSYCHOMETRICIAN | | | DAILY IN | | | | | | | | THE | | | | | | | | MORNING | | | | | | + + + + + + + + | VOLTAREN 1 | apply 3-4 | | | DICLOFENAC | [id number] | [facility]y | | % GEL | times QD | | | SODIUM | 7 | Attila MD | | | PRN pain, | | | | | | | | max 4 | | | | | | | | grams per | | | | | | | | applicatio | | | | | | | | n | | | | | | + + + + + + + + | VITAMIN D3 | TAKE 1 | | | CHOLECALCI | [id number] | [facility] | | 1000 UNIT | TABLET BY | | | FEROL | 0 | Ankur DNP | | TABS | MOUTH ONCE | | | | | PSYCHOMETRICIAN | | | DAILY IN | | | | | | | | THE | | | | | | | | MORNING | | | | | | + + + + + + + + | ONETOUCH | Use to | | | BLOOD | [id number] | [facility] | | VERIO | test | | | GLUCOSE | 1 | Ankur DNP | | w/Device | glucose | | | MONITORING | | PSYCHOMETRICIAN | | KIT | four times | | | SUPPL | | | | | daily Dx | | | | | | | | 11.65, | | | | | | | | SMITH: 99 | | | | | | | | years | | | | | | + + + + + + + + | RELION | use with | | | BLOOD | [id number] | [facility] | | PRIME | test | | | GLUCOSE | 2 | [facility] | | MONITOR | strips to | | | MONITORING | | | | DYLAN | test BG | | | SUPPL | | | | | daily | | | | | | + + + + + + + + | ONETOUCH | Use strip | | | GLUCOSE | [id number] | [facility] | | ULTRA BLUE | to checl | | | BLOOD | 0 | Ankur DNP | | STRP | glucose | | | | | PSYCHOMETRICIAN | | | four times | | | | | | | | daily. | | | | | | | | Dx: 11.65 | | | | | | | | SMITH: 89 | | | | | | | | years | | | | | | + + + + + + + + | RELION | USE | | | INSULIN | [id number] | [facility] | | INSULIN | SYRINGE 4 | | | SYRINGE-NE | 2 | Ankur DNP | | SYRINGE | TIMES | | | EDLE U-100 | | PSYCHOMETRICIAN | | 31G X | DAILYDx | | | | | | | 10/09" 0.5 | Code | | | | | | | ML | E11.40 | | | | | | + + + + + + + + | BD PEN | USE PEN | | | INSULIN | [id number] | [facility] | | NEEDLE | NEEDLE(S) | | | PEN NEEDLE | 9 | Ankur DNP | | SHORT U/F | 4 TIMES | | | | | PSYCHOMETRICIAN | | 31G X 8 MM | DAILYDx | | | | | | | | Code | | | | | | | | E11.40 | | | | | | + + + + + + + + | ONETOUCH | Use strip | | | GLUCOSE | [id number] | [facility] | | TERRELL STRP | to checl | | | BLOOD | 0 | Ankur DNP | | | glucose | | | | | PSYCHOMETRICIAN | | | four times | | | | | | | | daily. | | | | | | | | Dx: 11.65 | | | | | | | | SMITH: 89 | | | | | | | | years | | | | | | + + + + + + + + | RELION | Use to | | | GLUCOSE | [id number] | [facility] | | BLOOD | check | | | BLOOD | 4 | [facility] | | GLUCOSE | blood | | | | | | | TEST STRP | sugars | | | | | | | | four times | | | | | | | | per day | | | | | | | | DX: | | | | | | | | E11.65 | | | | | | | | SMITH: 99 | | | | | | | | MONTHS | | | | | | + + + + + + + + | IRBESARTAN | Take one | | | IRBESARTAN | [id number] | [facility] | | 300 MG | tablet | | | | 3 | Ankur DNP | | TABS | daily | | | | | PSYCHOMETRICIAN | + + + + + + + + | BD INSULIN | Use to | | | INSULIN | [id number] | [facility] | | SYRINGE | inject | | | SYRINGE-NE | 6 | Ankur DNP | | ULTRAFINE | insulin 5 | | | EDLE U-100 | | PSYCHOMETRICIAN | | 29G X /2" | times per | | | | | | | 0.5 ML | day | | | | | | + + + + + + + + | RELION | Use to | | | GLUCOSE | [id number] | [facility] | | BLOOD | check | | | BLOOD | 4 | Ankur DNP | | GLUCOSE | blood | | | | | PSYCHOMETRICIAN | | TEST STRP | sugars | | | | | | | | four times | | | | | | | | per day | | | | | | | | DX: | | | | | | | | E11.65 | | | | | | | | SMITH: 99 | | | | | | | | MONTHS | | | | | | + + + + + + + + | RELION | use with | | | BLOOD | [id number] | [facility] | | PRIME | test | | | GLUCOSE | 2 | Ankur DNP | | MONITOR | strips to | | | MONITORING | | PSYCHOMETRICIAN | | DYLAN | test BG | | | SUPPL | | | | | daily | | | | | | + + + + + + + + | RELION | use when | | | GLUCOSE | [phone] | [facility] | | BLOOD | testing BG | | | BLOOD | 4 | Ankur DNP | | GLUCOSE | | | | | | PSYCHOMETRICIAN | | TEST STRP | | | | | | | + + + + + + + + | BIOTIN 1 | Take one | | | BIOTIN | [id number] | [facility] | | MG CAPS | daily in | | | | 2 | Prabhakar | | | the AM | | | | | NCMA | + + + + + + + + | BASAGLAR | 68 Units | | | INSULIN | [id number] | [facility] | | KWIKPEN | every | | | GLARGINE | 9 | Ankur DNP | | 100 | morning | | | | | PSYCHOMETRICIAN | | UNIT/ML | (34 units | | | | | | | SOPN | on each | | | | | | | | side) | | | | | | + + + + + + + + | BASAGLAR | 65 Units | | | INSULIN | [id number] | [facility] | | KWIKPEN | every | | | GLARGINE | 9 | Ankur DNP | | 100 | morning | | | | | PSYCHOMETRICIAN | | UNIT/ML | | | | | | | | SOPN | | | | | | | + + + + + + + + | BASAGLAR | 60 Units | | | INSULIN | [id number] | [facility] | | KWIKPEN | every | | | GLARGINE | 9 | Ankur DNP | | 100 | morning | | | | | PSYCHOMETRICIAN | | UNIT/ML | | | | | | | | SOPN | | | | | | | + + + + + + + + | RELION | Use daily | | | GLUCOSE | [id number] | [facility] | | BLOOD | to check | | | BLOOD | 4 | Ankur DNP | | GLUCOSE | blood | | | | | PSYCHOMETRICIAN | | TEST STRP | sugar | | | | | | + + + + + + + + | DIABETIC | 1 pair per | | | DIABETIC | | [facility] | | ORTHOTIC | custom | | | ORTHOTIC | | Ankur DNP | | SHOES | fit from | | | SHOES | | PSYCHOMETRICIAN | | | podiatry | | | | | | | | E11.65, | | | | | | | | e11.21 | | | | | | + + + + + + + + | DIABETIC | 1 pair per | | | FOOT CARE | [phone] | [facility] | | INSOLES | custom | | | PRODUCTS | 1 | Ankur DNP | | | fit from | | | | | PSYCHOMETRICIAN | | | podiatry | | | | | | | | Dx. | | | | | | | | E11.65, | | | | | | | | e11.21 | | | | | | + + + + + + + + | BD INSULIN | Use 5 | | | INSULIN | [id number] | [facility] | | SYRINGE | times | | | SYRINGE-NE | 1 | Ankur DNP | | ULTRAFINE | daily to | | | EDLE U-100 | | PSYCHOMETRICIAN | | 29G X 1/2" | inject | | | | | | | 1 ML | insulin | | | | | | | | Dx: e11.21 | | | | | | | | SMITH: 99 | | | | | | | | months | | | | | | + + + + + + + + | BD PEN | Use daily | | | INSULIN | 9578875977 | [facility] | | NEEDLE | to inject | | | PEN NEEDLE | 0 | Ankur DNP | | ORIGINAL | insulin | | | | | PSYCHOMETRICIAN | | U/F 29G X | | | | | | | | 12.7MM | | | | | | | + + + + + + + + | RELION PEN | | | | INSULIN | [id number] | [facility] | | NEEDLES | | | | PEN NEEDLE | 4 | Ankur DNP | | 31G X 8 MM | | | | | | PSYCHOMETRICIAN | + + + + + + + + | MISC | | | | MISC | | [facility] | | | | | | | | Ankur DNP | | | | | | | | PSYCHOMETRICIAN | + + + + + + + + | NERVE | | | | NERVE | | [facility] | | PAIN | | | | PAIN | | Ankur DNP | | | | | | | | PSYCHOMETRICIAN | + + + + + + + + | HEARTBU | | | | HEARTBU | | [facility] | | RN/NAUSEA* | | | | RN/NAUSEA* | | Ankur DNP | | | | | | | | PSYCHOMETRICIAN | + + + + + + + + | STROKE | | | | STROKE | | [facility] | | PREVENTION | | | | PREVENTION | | Ankur DNP | | | | | | | | PSYCHOMETRICIAN | + + + + + + + + | BLOOD | | | | BLOOD | | [facility] | | PRESSURE | | | | PRESSURE | | Ankur DNP | | * | | | | * | | PSYCHOMETRICIAN | + + + + + + + + | DIABETE | | | | DIABETE | | [facility] | | S | | | | S | | Ankur DNP | | | | | | | | PSYCHOMETRICIAN | + + + + + + + + | MIRALAX | 17 gm | | | POLYETHYLE | [id number] | [facility] | | POWD | daily | | | NE GLYCOL | 2 | Ankur DNP | | | stirred | | | 3350 | | PSYCHOMETRICIAN | | | into 4-8 | | | | | | | | ounces of | | | | | | | | water, | | | | | | | | juice or | | | | | | | | other | | | | | | | | liquid | | | | | | + + + + + + + + | COLACE 100 | 1 pill | | | DOCUSATE | [id number] | [facility] | | MG CAPS | twice | | | SODIUM | 0 | Ankur DNP | | | daily for | | | | | PSYCHOMETRICIAN | | | soft | | | | | | | | stools | | | | | | + + + + + + + + | NOVOLOG | 12 Units | | | INSULIN | [id number] | [facility] | | 100 | before | | | ASPART | 1 | Ankur DNP | | UNIT/ML | meals | | | | | PSYCHOMETRICIAN | | SOLN | SS:150-175 | | | | | | | | :2U,176-20 | | | | | | | | 0:4U, | | | | | | | | 201-250: | | | | | | | | 6U, | | | | | | | | 251-300: | | | | | | | | 8U, If | | | | | | | | greater | | | | | | | | than 300 | | | | | | | | please | | | | | | | | call | | | | | | | | provider | | | | | | + + + + + + + + | LYRICA 100 | 1 capsule | | | PREGABALIN | [id number] | [facility] | | MG CAPS | three | | | | 8 | Ankur DNP | | | times | | | | | PSYCHOMETRICIAN | | | daily for | | | | | | | | neuropathy | | | | | | + + + + + + + + | LYRICA 100 | 1 tab | | | PREGABALIN | 6040399625 | [facility] | | MG CAPS | three | | | | 8 | Ankur DNP | | | times per | | | | | PSYCHOMETRICIAN | | | day. Pt | | | | | | | | states as | | | | | | | | needed | | | | | | + + + + + + + + | PROCHLORPE | Insert one | | | PROCHLORPE | [id number] | [facility] | | RAZINE 25 | | | | RAZINE | 0 | Ankur DNP | | MG SUPP | suppositor | | | | | PSYCHOMETRICIAN | | | y rectally | | | | | | | | every 24 | | | | | | | | hours as | | | | | | | | needed | | | | | | + + + + + + + + | VICTOZA 18 | .6 mg x 1 | | | LIRAGLUTID | [id number] | [facility] | | MG/3ML | week then | | | E | 2 | Ankur DNP | | SOPN | 1.2 mg | | | | | PSYCHOMETRICIAN | | | daily per | | | | | | | | week | | | | | | + + + + + + + + | RELION PEN | | | | INSULIN | 1926799406 | David | | NEEDLES | | | | PEN NEEDLE | 4 | Hoyne DO | | 31G X 8 MM | | | | | | | + + + + + + + + | NOVOLOG | 3U before | | | INSULIN | 2983302140 | Scarlett | | 100 | lunch and | | | ASPART | 1 | Farias | | UNIT/ML | 5U before | | | | | CCMA | | SOLN | Dinner | | | | | | | | SS:150-175 | | | | | | | | :1U,176-20 | | | | | | | | 0:2U, | | | | | | | | 201-225: | | | | | | | | 3U, | | | | | | | | 226-250: | | | | | | | | 4U, | | | | | | | | 251-275: | | | | | | | | 5U, | | | | | | | | 276-300: | | | | | | | | 6U, | | | | | | | | 301-325: | | | | | | | | 7U, | | | | | | | | 326-350: 8 | | | | | | | | U, | | | | | | | | 351-400: | | | | | | | | 9U, over | | | | | | | | 400:10U. | | | | | | + + + + + + + + | LYRICA 100 | 1 tid | | | PREGABALIN | [id number] | Christen Ramirez | | MG CAPS | | | | | 8 | [place] | | | | | | | | PSYCHOMETRICIAN | + + + + + + + + | PROMETHAZI | Take one | | | PROMETHAZI | 5239175345 | [facility] | | NE HCL 25 | tablet by | | | NE HCL | 1 | Hope CCMA | | MG TABS | mouth | | | | | | | | every 4 | | | | | | | | hours as | | | | | | | | needed for | | | | | | | | nausea | | | | | | | | and | | | | | | | | vomiting | | | | | | + + + + + + + + | PROCHLORPE | Insert one | | | PROCHLORPE | 0620179342 | [facility] | | RAZINE 25 | | | | RAZINE | 0 | Charity CCMA | | MG SUPP | suppositor | | | | | | | | y rectally | | | | | | | | every 24 | | | | | | | | hours as | | | | | | | | needed | | | | | | + + + + + + + + | CLONAZEPAM | Take one | | | CLONAZEPAM | [id number] | [facility] | | 0.5 MG | tablet | | | | 1 | Charity PERSAUDA | | TABS | every 24 | | | | | | | | hours as | | | | | | | | needed for | | | | | | | | anxiety | | | | | | + + + + + + + + | PANTOPRAZO | Take one | | | PANTOPRAZO | 8577386313 | [facility] | | LE SODIUM | tablet by | | | LE SODIUM | 8 | Ankur DNP | | 40 MG TBEC | mouth once | | | | | PSYCHOMETRICIAN | | | daily | | | | | | + + + + + + + + | NITROFURAN | Take one | | | NITROFURAN | 2718430459 | [facility] | | TOIN | capsule | | | TOIN | 1 | [facility] | | MONOHYD | every 12 | | | MONOHYD | | | | MACRO 100 | hours | | | MACRO | | | | MG CAPS | until | | | | | | | | completed | | | | | | | | for UTI | | | | | | + + + + + + + + | VICTOZA 18 | .6 mg x 1 | | | LIRAGLUTID | 8849129448 | Christen Ramirez | | MG/3ML | week then | | | E | 2 | [place] | | SOPN | 1.2 mg | | | | | PSYCHOMETRICIAN | | | daily per | | | | | | | | week | | | | | | + + + + + + + + | VICTOZA 18 | Inject 0.6 | | | LIRAGLUTID | [id number] | Christen Escudero. | | MG/3ML | mg daily | | | E | 2 | [place] | | SOPN | | | | | | PSYCHOMETRICIAN | + + + + + + + + | DRAMAMINE | take 1-2 | | | DIMENHYDRI | 6788443603 | Christen Ramirez | | 50 MG TABS | tabs 4 | | | MARCELA | 2 | [place] | | | times per | | | | | PSYCHOMETRICIAN | | | day as | | | | | | | | needed | | | | | | + + + + + + + + | NEURONTIN | take 1 tab | | | GABAPENTIN | 9203222128 | Christen Escudero. | | 300 MG | po tid . | | | | 4 | [place] | | CAPS | Pt states | | | | | PSYCHOMETRICIAN | | | as needed | | | | | | + + + + + + + + | PIOGLITAZO | Take 1 tab | | | PIOGLITAZO | 0210517944 | Christen James | | NE HCL 15 | by mouth | | | NE HCL | 6 | [place] | | MG TABS | one time | | | | | PSYCHOMETRICIAN | | | per day in | | | | | | | | the AM | | | | | | + + + + + + + + | NITROFURAN | Take one | | | NITROFURAN | 2942209047 | [facility] | | TOIN | capsule | | | TOIN | 1 | [facility] | | MONOHYD | every 12 | | | MONOHYD | | | | MACRO 100 | hours | | | MACRO | | | | MG CAPS | until | | | | | | | | completed | | | | | | | | for UTI | | | | | | + + + + + + + + | NITROFURAN | | | | NITROFURAN | 3675813797 | [facility] | | TOIN | | | | TOIN | 1 | [facility] | | MONOHYD | | | | MONOHYD | | | | MACRO 100 | | | | MACRO | | | | MG CAPS | | | | | | | + + + + + + + + | GLIPIZIDE | Take 1 | | | GLIPIZIDE | 3075623114 | [facility] | | XL 2.5 MG | tablet | | | | 1 | Ankur DNP | | [id number] | p.o. | | | | | PSYCHOMETRICIAN | | | q.a.m. | | | | | | + + + + + + + + | NOVOLOG | 3U before | | | INSULIN | 1877191879 | David | | 100 | lunch and | | | ASPART | 1 | Hoyne DO | | UNIT/ML | 5U before | | | | | | | SOLN | Katelynner | | | | | | | | SS:150-175 | | | | | | | | :1U,176-20 | | | | | | | | 0:2U, | | | | | | | | 201-225: | | | | | | | | 3U, | | | | | | | | 226-250: | | | | | | | | 4U, | | | | | | | | 251-275: | | | | | | | | 5U, | | | | | | | | 276-300: | | | | | | | | 6U, | | | | | | | | 301-325: | | | | | | | | 7U, | | | | | | | | 326-350: 8 | | | | | | | | U, | | | | | | | | 351-400: | | | | | | | | 9U, over | | | | | | | | 400:10U | | | | | | + + + + + + + + | HUMALOG | 3U before | | | INSULIN | 9558445309 | Christen J. | | 100 | lunch and | | | LISPRO | 1 | [place] | | UNIT/ML | 5U before | | | | | PSYCHOMETRICIAN | | SOLN | Dinner | | | | | | | | SS:150-175 | | | | | | | | :1U,176-20 | | | | | | | | 0:2U, | | | | | | | | 201-225: | | | | | | | | 3U, | | | | | | | | 226-250: | | | | | | | | 4U, | | | | | | | | 251-275: | | | | | | | | 5U, | | | | | | | | 276-300: | | | | | | | | 6U, | | | | | | | | 301-325: | | | | | | | | 7U, | | | | | | | | 326-350: 8 | | | | | | | | U, | | | | | | | | 351-400: | | | | | | | | 9U, over | | | | | | | | 400:10U | | | | | | + + + + + + + + | HUMALOG | BS <150 - | | | INSULIN | [id number] | Christen Ramirez | | 100 | No insulin | | | LISPRO | 1 | [place] | | UNIT/ML | BS | | | (HUMAN) | | PSYCHOMETRICIAN | | SOLN | 150-200 | | | | | | | | use 3 | | | | | | | | units BS | | | | | | | | 201-250 us | | | | | | | | 4 units | | | | | | | | BS 251-300 | | | | | | | | use 6 | | | | | | | | units BS | | | | | | | | 301-350 | | | | | | | | use 8 | | | | | | | | units BS | | | | | | | | > 350 use | | | | | | | | 10 units | | | | | | | | and call | | | | | | | | PCP | | | | | | + + + + + + + + | BYETTA 5 | Take as | | | EXENATIDE | [id number] | Christen Ramirez | | MCG PEN 5 | directed | | | | 1 | [place] | | MCG/0.02ML | once daily | | | | | PSYCHOMETRICIAN | | SOPN | in the AM | | | | | | + + + + + + + + | BASAGLAR | 1 pen | | | INSULIN | 4264129955 | Christen Ramirez | | KWIKPEN | every 3 | | | GLARGINE | 9 | [place] | | 100 | days 56 | | | | | PSYCHOMETRICIAN | | UNIT/ML | units q | | | | | | | SOPN | Day | | | | | | + + + + + + + + | BASAGLAR | 56 Units | | | INSULIN | 9589849780 | David | | KWIKPEN | every | | | GLARGINE | 9 | Hoyne DO | | 100 | morning | | | | | | | UNIT/ML | | | | | | | | SOPN | | | | | | | + + + + + + + + | VICTOZA 18 | Inject 0.6 | | | LIRAGLUTID | [id number] | Christen J. | | MG/3ML | mg daily | | | E | 2 | [place] | | SOPN | | | | | | PSYCHOMETRICIAN | + + + + + + + + | VICTOZA 18 | 5 unit AM | | | LIRAGLUTID | [id number] | Christen J. | | MG/3ML | and 5 | | | E | 2 | [place] | | SOPN | units PM | | | | | PSYCHOMETRICIAN | + + + + + + + + | BASAGLAR | 1 pen | | | INSULIN | 5589140746 | Christen Ramirez | | KWIKPEN | every 3 | | | GLARGINE | 9 | [place] | | 100 | days 56 | | | | | PSYCHOMETRICIAN | | UNIT/ML | units q | | | | | | | SOPN | Day | | | | | | + + + + + + + + | MECLIZINE | One tab by | | | MECLIZINE | 1870053315 | [facility] | | HCL 25 MG | mouth | | | HCL | 0 | Ankur DNP | | TABS | three | | | | | PSYCHOMETRICIAN | | | times per | | | | | | | | day | | | | | | + + + + + + + + | PEN | Use one | | | PEN | | David | | NEEDLES | pen needle | | | NEEDLES | | Hoyne DO | | FOR | every | | | FOR | | | | BASAGLAR | morning | | | BASAGLAR | | | | KWIKPEN | with | | | KWIKPEN | | | | | Basaglar | | | | | | | | Kwikpen | | | | | | + + + + + + + + | BASAGLAR | 56 Units | | | INSULIN | [id number] | Christen Ramirez | | KWIKPEN | by mouth | | | GLARGINE | 9 | [place] | | 100 | every | | | | | PSYCHOMETRICIAN | | UNIT/ML | morning | | | | | | | SOPN | | | | | | | + + + + + + + + | SUPREP | mix and | | | NA | [phone] | Maulik | | BOWEL PREP | drink one | | | SULFATE-K | 1 | Lilia | | KIT | bottle at | | | SULFATE-MG | | MD | | 17.5-3.13- | 5pm day | | | SULF | | | | 1.6 | before | | | | | | | GM/177ML | procedure. | | | | | | | SOLN | mix and | | | | | | | | drink 2nd | | | | | | | | bottle 4 | | | | | | | | hours | | | | | | | | before | | | | | | | | check in | | | | | | | | time. | | | | | | + + + + + + + + | SUPREP | mix and | | | NA | [phone] | Emeka | | BOWEL PREP | drink one | | | SULFATE-K | 1 | Petre MD | | KIT | bottle at | | | SULFATE-MG | | | | 17.5-3.13- | 5pm day | | | SULF | | | | 1.6 | before | | | | | | | GM/177ML | procedure. | | | | | | | SOLN | mix and | | | | | | | | drink 2nd | | | | | | | | bottle 4 | | | | | | | | hours | | | | | | | | before | | | | | | | | check in | | | | | | | | time. | | | | | | + + + + + + + + | COLACE 100 | 1 pill BID | | | DOCUSATE | [id number] | [facility] | | MG CAPS | | | | SODIUM | 0 | Ankur DNP | | | | | | | | PSYCHOMETRICIAN | + + + + + + + + | RELION | Use daily | | | GLUCOSE | 8455083617 | Tiesha | | BLOOD | to check | | | BLOOD | 4 | Maria Isabel MD | | GLUCOSE | blood | | | | | | | TEST STRP | sugar | | | | | | + + + + + + + + | DIABETIC | 1 pair per | | | DIABETIC | | Tiesha | | ORTHOTIC | custom | | | ORTHOTIC | | [place] MD | | SHOES | fit from | | | SHOES | | | | | podiatry | | | | | | | | E11.65, | | | | | | | | e11.21 | | | | | | + + + + + + + + | DIABETIC | 1 pair per | | | FOOT CARE | [id number] | Tiesha | | INSOLES | custom | | | PRODUCTS | 1 | Maria Isabel MD | | | fit from | | | | | | | | podiatry | | | | | | | | Dx. | | | | | | | | E11.65, | | | | | | | | e11.21 | | | | | | + + + + + + + + | KEFLEX 500 | 1 pill | | | CEPHALEXIN | 2819362838 | Tiesha | | MG CAPS | twice a | | | | 1 | [place] MD | | | day for 7 | | | | | | | | days | | | | | | + + + + + + + + | BD INSULIN | Use 5 | | | INSULIN | 8820773374 | [facility] | | SYRINGE | times | | | SYRINGE-NE | 1 | Ankur DNP | | ULTRAFINE | daily to | | | EDLE U-100 | | PSYCHOMETRICIAN | | 29G X /2" | inject | | | | | | | 1 ML | insulin | | | | | | | | Dx: e11.21 | | | | | | | | SMITH: 99 | | | | | | | | months | | | | | | + + + + + + + + | LANTUS 100 | 56 units | | | INSULIN | 0193272785 | Kaykay | | UNIT/ML | qAM | | | GLARGINE | 3 | Mora DO | | GEOVANI | | | | | | | + + + + + + + + | KEFLEX 500 | 1 pill | | | CEPHALEXIN | 9710214229 | Pako | | MG CAPS | twice a | | | | 1 | Middlekauf | | | day for 7 | | | | | f PSYCHOMETRICIAN | | | days | | | | | | + + + + + + + + | LANTUS 100 | 50 units | | | INSULIN | 8910180484 | [facility] | | UNIT/ML | once per | | | GLARGINE | 3 | [place] | | SOLN | day. Pt | | | | | f PSYCHOMETRICIAN | | | states she | | | | | | | | is taking | | | | | | | | 56 units | | | | | | | | every AM | | | | | | + + + + + + + + | BIOTIN 1 | Take one | | | BIOTIN | 4501489167 | [facility] | | MG CAPS | daily in | | | | 2 | Ankur DNP | | | the AM | | | | | PSYCHOMETRICIAN | + + + + + + + + | VICTOZA 18 | | | | LIRAGLUTID | [id number] | Jesus | | MG/3ML | | | | E | 2 | Ethan MD | | SOPN | | | | | | | + + + + + + + + | BYETTA 5 | Take as | | | EXENATIDE | 4421982316 | Christen Ramirez | | MCG PEN 5 | directed | | | | 1 | [place] | | MCG/0.02ML | once daily | | | | | PSYCHOMETRICIAN | | SOPN | in the AM | | | | | | + + + + + + + + | VITAMIN D | Take one | | | CHOLECALCI | 2459372872 | [facility] | | 1000 UNIT | tablet | | | FEROL | 1 | Ankur DNP | | TABS | daily in | | | | | PSYCHOMETRICIAN | | | the AM | | | | | | + + + + + + + + | POTASSIUM | Take one | | | POTASSIUM | 6669856459 | [facility] | | CHLORIDE | cap daily | | | CHLORIDE | 1 | Ankur DNP | | ER 10 MEQ | in the AM | | | | | PSYCHOMETRICIAN | | CR-CAPS | | | | | | | + + + + + + + + | NEURONTIN | take 1 tab | | | GABAPENTIN | 8148466679 | Jesus | | 300 MG | po tid . | | | | 4 | Ethna MD | | CAPS | Pt states | | | | | | | | as needed | | | | | | + + + + + + + + | LASIX 80 | 1 tab by | | | FUROSEMIDE | 0283061159 | [facility] | | MG TABS | mouth one | | | | 5 | Ankur DNP | | | time per | | | | | PSYCHOMETRICIAN | | | day in the | | | | | | | | AM | | | | | | + + + + + + + + | LYRICA 100 | 1 tab | | | PREGABALIN | 3395787543 | Christen Escudero. | | MG CAPS | three | | | | 8 | [place] | | | times per | | | | | PSYCHOMETRICIAN | | | day. Pt | | | | | | | | states as | | | | | | | | needed | | | | | | + + + + + + + + | OMEPRAZOLE | Take one | | | OMEPRAZOLE | 0465745800 | [facility] | | 40 MG | by mouth | | | | 0 | Ankur DNP | | CPDR | one time | | | | | PSYCHOMETRICIAN | | | per day | | | | | | | | 30-60 | | | | | | | | minutes | | | | | | | | before | | | | | | | | breakfast | | | | | | | | as needed | | | | | | + + + + + + + + | PLAVIX 75 | 1 tab by | | | CLOPIDOGRE | 9976790755 | [facility] | | MG TABS | mouth one | | | L | 1 | Ankur DNP | | | time per | | | BISULFATE | | PSYCHOMETRICIAN | | | day in the | | | | | | | | evening | | | | | | + + + + + + + + | LIPITOR 20 | take 1 | | | ATORVASTAT | 7692415860 | [facility] | | MG TABS | tablet by | | | IN CALCIUM | 3 | Ankur DNP | | | mouth | | | | | PSYCHOMETRICIAN | | | daily in | | | | | | | | the | | | | | | | | evening | | | | | | + + + + + + + + | VALSARTAN | Take one | | | VALSARTAN | 3075139225 | [facility] | | 160 MG | tablet | | | | 7 | Ankur DNP | | TABS | daily in | | | | | PSYCHOMETRICIAN | | | the AM | | | | | | + + + + + + + + | PIOGLITAZO | Take 1 tab | | | PIOGLITAZO | 7665491597 | Jesus | | NE HCL 15 | by mouth | | | NE HCL | 6 | Ethan MD | | MG TABS | one time | | | | | | | | per day in | | | | | | | | the AM | | | | | | + + + + + + + + | LANTUS 100 | 25 units | | | INSULIN | 1768970534 | Jesus | | UNIT/ML | two times | | | GLARGINE | 3 | Ethan MD | | SOLN | per day. | | | | | | | | Pt states | | | | | | | | she is | | | | | | | | taking 56 | | | | | | | | units | | | | | | | | every AM | | | | | | + + + + + + + + | VICTOZA 18 | | | | LIRAGLUTID | [id number] | Bailey W | | MG/3ML | | | | E | 2 | Lila MD | | SOPN | | | | | | | + + + + + + + + | BYETTA 5 | 0.02 ml | | | EXENATIDE | 5593547275 | Bailey W | | MCG PEN 5 | injection | | | | 1 | Lila MD | | MCG/0.02ML | two times | | | | | | | SOPN | per day | | | | | | + + + + + + + + | DRAMAMINE | take 1-2 | | | DIMENHYDRI | 3207202604 | Bailey W | | 50 MG TABS | tabs 4 | | | MARCELA | 2 | Lila MD | | | times per | | | | | | | | day as | | | | | | | | needed | | | | | | + + + + + + + + | BIOTIN 1 | | | | BIOTIN | [id number] | Kali | | MG CAPS | | | | | 2 | Hakeem DPM | + + + + + + + + | VITAMIN D | | | | CHOLECALCI | [id number] | Kali | | 1000 UNIT | | | | FEROL | 1 | Hakeem DPM | | TABS | | | | | | | + + + + + + + + | POTASSIUM | | | | POTASSIUM | [id number] | Kali | | CHLORIDE | | | | CHLORIDE | 1 | Palacio DPM | | ER 10 MEQ | | | | | | | | CR-CAPS | | | | | | | + + + + + + + + | BUSPIRONE | 1 TAB | | | BUSPIRONE | [id number] | Kali | | HCL 7.5 MG | three | | | HCL | 1 | Palacio DPM | | TABS | times per | | | | | | | | day | | | | | | + + + + + + + + | COLACE 100 | 1 tab by | | | DOCUSATE | [id number] | Kali | | MG CAPS | mouth | | | SODIUM | 0 | Palacio DPM | | | daily at | | | | | | | | bedtime | | | | | | + + + + + + + + | RELION | Use to | | | GLUCOSE | [id number] | Kali | | BLOOD | test BG | | | BLOOD | 4 | Palacio DPM | | GLUCOSE | one time | | | | | | | TEST STRP | per day | | | | | | + + + + + + + + | ONDANSETRO | 1 tab | | | ONDANSETRO | [id number] | Kali | | N HCL 4 MG | every 4 | | | N HCL | 3 | Hakeem DPM | | TABS | hours | | | | | | + + + + + + + + | CILOSTAZOL | 1 tab two | | | CILOSTAZOL | [id number] | Kali | | 100 MG | times per | | | | 1 | Hakeem DPM | | TABS | day | | | | | | + + + + + + + + | LANTUS 100 | 25 units | | | INSULIN | [id number] | Laurance W | | UNIT/ML | two times | | | GLARGINE | 3 | Lila MD | | SOLN | per day | | | | | | + + + + + + + + | NEURONTIN | take 1 tab | | | GABAPENTIN | [id number] | Laurance W | | 300 MG | po tid | | | | 4 | Lila MD | | CAPS | | | | | | | + + + + + + + + | CLINDAMYCI | take 1 cap | | | CLINDAMYCI | | Laurance W | | N 300 MG | po q 6 | | | N 300 MG | | Lila MD | | CAP | hrs for 7 | | | CAP | | | | | days | | | | | | + + + + + + + + | LASIX 80 | 1 tab by | | | FUROSEMIDE | [id number] | Laurance W | | MG TABS | mouth one | | | | 5 | Lila MD | | | time per | | | | | | | | day | | | | | | + + + + + + + + | FUROSEMIDE | 1 tab one | | | FUROSEMIDE | [id number] | Laurance W | | 40 MG | time per | | | | 5 | Lila MD | | TABS | day | | | | | | + + + + + + + + | BUSPIRONE | 1 TAB | | | BUSPIRONE | [id number] | Laurance W | | HCL 7.5 MG | three | | | HCL | 1 | Lila MD | | TABS | times per | | | | | | | | day | | | | | | + + + + + + + + | COLACE 100 | 1 tab by | | | DOCUSATE | [id number] | Laurance W | | MG CAPS | mouth | | | SODIUM | 0 | Lila MD | | | daily at | | | | | | | | bedtime | | | | | | + + + + + + + + | LYRICA 100 | 1 tab | | | PREGABALIN | [id number] | Laurance W | | MG CAPS | three | | | | 8 | Lila MD | | | times per | | | | | | | | day | | | | | | + + + + + + + + | GABAPENTIN | Take 2 | | | GABAPENTIN | [id number] | Laurance W | | 300 MG | capsules | | | | 5 | Lila MD | | CAPS | in the | | | | | | | | morning, 2 | | | | | | | | capsules | | | | | | | | in the | | | | | | | | evening, | | | | | | | | and 3 | | | | | | | | capsules | | | | | | | | at bedtime | | | | | | + + + + + + + + | BACTRIM DS | 1 by mouth | | | TRIMETHOPR | [id number] | Laurance W | | 800-160 | twice a | | | IM-SULFAME | 1 | Lila MD | | MG TABS | day for 3 | | | THOXAZOLE | | | | | days | | | | | | + + + + + + + + | BACTRIM DS | 1 by mouth | | | TRIMETHOPR | [id number] | Laurance W | | 800-160 | twice a | | | IM-SULFAME | 1 | Lila MD | | MG TABS | day for 3 | | | THOXAZOLE | | | | | days | | | | | | + + + + + + + + | CLINDAMYCI | take 1 cap | | | CLINDAMYCI | | Laurance W | | N 300 MG | po q 6 | | | N 300 MG | | Lila MD | | CAP | hrs for 7 | | | CAP | | | | | days | | | | | | + + + + + + + + | MECLIZINE | 1 tab | | | MECLIZINE | [id number] | Laurance W | | HCL 25 MG | three | | | HCL | 0 | Lila MD | | TABS | times per | | | | | | | | day | | | | | | + + + + + + + + | GLUCOPHAGE | 1 tab one | | | METFORMIN | [id number] | Laurance W | | XR 500 MG | time per | | | HCL | 3 | Lila MD | | [id number]-MFL | day | | | | | | + + + + + + + + | BD INSULIN | Use 5 | | | INSULIN | [id number] | Bailey W | | SYRINGE | times | | | SYRINGE-NE | 1 | Lila MD | | ULTRAFINE | daily to | | | EDLE U-100 | | | | 29G X 05/28" | inject | | | | | | | 1 ML | insulin | | | | | | | | Dx: 250.00 | | | | | | | | SMITH: 99 | | | | | | | | months | | | | | | + + + + + + + + | MISC | | | | MISC | | Laurance W | | | | | | | | Lila MD | + + + + + + + + | NERVE | | | | NERVE | | Laurance W | | PAIN | | | | PAIN | | Lila MD | + + + + + + + + | HEARTBU | | | | HEARTBU | | Laurance W | | RN/NAUSEA* | | | | RN/NAUSEA* | | Lila MD | | | | | | | | | + + + + + + + + | STROKE | | | | STROKE | | Laurance W | | PREVENTION | | | | PREVENTION | | Lila MD | | | | | | | | | + + + + + + + + | BLOOD | | | | BLOOD | | Laurance W | | PRESSURE | | | | PRESSURE | | Lila MD | | * | | | | * | | | + + + + + + + + | DIABETE | | | | DIABETE | | Bailey W | | S | | | | S | | Lila MD | + + + + + + + + | LYRICA 50 | Take 1 tab | | | PREGABALIN | [id number] | Bailey W | | MG CAPS | by mouth | | | | 8 | Lila MD | | | three | | | | | | | | times per | | | | | | | | day | | | | | | + + + + + + + + | BD PEN | Use daily | | | INSULIN | [id number] | Ambrose | | NEEDLE | to inject | | | PEN NEEDLE | 0 | Ankur DNP | | ORIGINAL | insulin | | | | | PSYCHOMETRICIAN | | U/F 29G X | | | | | | | | 12.7MM | | | | | | | + + + + + + + + | PIOGLITAZO | Take 1 tab | | | PIOGLITAZO | [id number] | Laurance W | | NE HCL 15 | by mouth | | | NE HCL | 6 | Lila MD | | MG TABS | one time | | | | | | | | per day | | | | | | + + + + + + + + | FLUCONAZOL | take one | | | FLUCONAZOL | [id number] | Laurance W | | E 150 MG | tablet PO | | | E | 1 | Lila MD | | TABS | x 1 repeat | | | | | | | | in 3 days | | | | | | + + + + + + + + | LYRICA 50 | TAKE ONE | | | PREGABALIN | [id number] | Kesha | | MG CAPS | CAPSULE BY | | | | 8 | Eric | | | MOUTH | | | | | CCMA | | | THREE | | | | | | | | TIMES | | | | | | | | DAILY | | | | | | + + + + + + + + | GABAPENTIN | Take 2 | | | GABAPENTIN | [id number] | Laurance W | | 300 MG | capsules | | | | 5 | Lila MD | | CAPS | in the | | | | | | | | morning, 2 | | | | | | | | capsules | | | | | | | | in the | | | | | | | | evening, | | | | | | | | and 3 | | | | | | | | capsules | | | | | | | | at bedtime | | | | | | + + + + + + + + | BYETTA 5 | 0.02 ml | | | EXENATIDE | [id number] | Bailey W | | MCG PEN 5 | injection | | | | 1 | Lila MD | | MCG/0.02ML | two times | | | | | | | SOPN | per day | | | | | | + + + + + + + + | BYETTA 5 | 0.2 ml | | | EXENATIDE | [id number] | Bailey W | | MCG PEN 5 | injection | | | | 1 | Lila MD | | MCG/0.02ML | two times | | | | | | | SOPN | per day | | | | | | + + + + + + + + | LYRICA 50 | TAKE ONE | | | PREGABALIN | [id number] | Bailey W | | MG CAPS | CAPSULE BY | | | | 8 | Lila MD | | | MOUTH | | | | | | | | THREE | | | | | | | | TIMES | | | | | | | | DAILY | | | | | | + + + + + + + + | MECLIZINE | 1 tab | | | MECLIZINE | [id number] | Laurance W | | HCL 25 MG | three | | | HCL | 0 | Lila MD | | TABS | times per | | | | | | | | day | | | | | | + + + + + + + + | CILOSTAZOL | 1 tab two | | | CILOSTAZOL | [id number] | Laurance W | | 100 MG | times per | | | | 1 | Lila MD | | TABS | day | | | | | | + + + + + + + + | ONDANSETRO | 1 tab | | | ONDANSETRO | [id number] | Laurance W | | N HCL 4 MG | every 4 | | | N HCL | 3 | Lila MD | | TABS | hours | | | | | | + + + + + + + + | LYRICA 50 | 1 tab | | | PREGABALIN | [id number] | Laurance W | | MG CAPS | three | | | | 8 | Lila MD | | | times per | | | | | | | | day | | | | | | + + + + + + + + | KEFLEX 500 | one po TID | | | CEPHALEXIN | [id number] | Susanna | | MG CAPS | | | | | 1 | Gianfranco MD | + + + + + + + + | NYSTATIN-T | Apply thin | | | NYSTATIN-T | [id number] | Ambrose | | RIAMCINOLO | layer to | | | RIAMCINOLO | 5 | Ankur DNP | | NE | affected | | | NE | | PSYCHOMETRICIAN | | 310125-6.1 | area BID | | | | | | | UNIT/GM-% | prn for | | | | | | | CREA | itching | | | | | | + + + + + + + + | FLUCONAZOL | take one | | | FLUCONAZOL | [id number] | Susanna | | E 150 MG | tablet PO | | | E | 1 | Gianfranco LUIS | | TABS | x 1 repeat | | | | | | | | in 3 days | | | | | | + + + + + + + + | ASPIRIN | take 1 | | | ASPIRIN | [id number] | Bailey W | | 325 MG | tablet by | | | | 1 | Lila LUIS | | TABS | mouth | | | | | | | | daily for | | | | | | | | stroke | | | | | | | | prevention | | | | | | | | . | | | | | | + + + + + + + + | PLAVIX 75 | 1 tab by | | | CLOPIDOGRE | [id number] | Laurance W | | MG TABS | mouth one | | | L | 1 | Lila MD | | | time per | | | BISULFATE | | | | | day | | | | | | + + + + + + + + | LYRICA 50 | 1 tab | | | PREGABALIN | [id number] | Laurance W | | MG CAPS | three | | | | 8 | Lila MD | | | times per | | | | | | | | day | | | | | | + + + + + + + + | GLUCOPHAGE | 1 tab one | | | METFORMIN | 6857710467 | Laurance W | | XR 500 MG | time per | | | HCL | 3 | Lila MD | | [id number] | day | | | | | | + + + + + + + + | MECLIZINE | One tab by | | | MECLIZINE | [id number] | Laurance W | | HCL 25 MG | mouth | | | HCL | 0 | Lila MD | | TABS | every 6 | | | | | | | | hours as | | | | | | | | needed | | | | | | + + + + + + + + | RIOMET 500 | 10ml's two | | | METFORMIN | [id number] | Laurance W | | MG/5ML | times per | | | HCL | 1 | Lila MD | | SOLN | day. | | | | | | | | Liquid | | | | | | | | form due | | | | | | | | to | | | | | | | | dysphagia | | | | | | + + + + + + + + | GABAPENTIN | Take 2 | | | GABAPENTIN | [id number] | Laurance W | | 300 MG | capsules | | | | 5 | Lila MD | | CAPS | in the | | | | | | | | morning, 2 | | | | | | | | capsules | | | | | | | | in the | | | | | | | | evening, | | | | | | | | and 3 | | | | | | | | capsules | | | | | | | | at bedtime | | | | | | + + + + + + + + | VALSARTAN | 1 TAB one | | | VALSARTAN | [id number] | Bailey W | | 160 MG | time per | | | | 8 | Lila MD | | TABS | day | | | | | | + + + + + + + + | DULOXETINE | 1 tab one | | | DULOXETINE | [id number] | Franciscoance W | | HCL 30 MG | time per | | | HCL | 6 | Lila MD | | CPEP | day | | | | | | + + + + + + + + | GABAPENTIN | take 2 | | | GABAPENTIN | [id number] | Laurance W | | 300 MG | caps in | | | | 5 | Lila MD | | CAPS | am, 2 caps | | | | | | | | in pm and | | | | | | | | 3 caps at | | | | | | | | bedtime. | | | | | | + + + + + + + + | DULOXETINE | 1 tab one | | | DULOXETINE | [id number] | Laurance W | | HCL 30 MG | time per | | | HCL | 6 | Lila MD | | CPEP | day | | | | | | + + + + + + + + | VICTOZA 18 | 1.2 mg | | | LIRAGLUTID | 5983414981 | Laurance W | | MG/3ML | injected | | | E | 2 | Lila MD | | SOPN | martin | | | | | | + + + + + + + + | DIOVAN 320 | 1 TAB one | | | VALSARTAN | 5833279168 | Laurance W | | MG TABS | time per | | | | 4 | Lila MD | | | day | | | | | | + + + + + + + + | MECLIZINE | One tab by | | | MECLIZINE | [id number] | Bailey W | | HCL 25 MG | mouth | | | HCL | 0 | Lila MD | | TABS | every 6 | | | | | | | | hours as | | | | | | | | needed | | | | | | + + + + + + + + | DIOVAN 160 | one time | | | VALSARTAN | 8511212111 | Mariano | | MG TABS | per day | | | | 4 | Ariella | | | | | | | | CCMA | + + + + + + + + | GABAPENTIN | take 2 | | | GABAPENTIN | 5106247054 | Mariano | | 300 MG | caps in | | | | 5 | Ariella | | CAPS | am, 2 caps | | | | | CCMA | | | in pm and | | | | | | | | 3 caps at | | | | | | | | bedtime. | | | | | | + + + + + + + + | OMEPRAZOLE | Take one | | | OMEPRAZOLE | [id number] | Laurance W | | 40 MG | by mouth | | | | 0 | Lila MD | | CPDR | one time | | | | | | | | per day | | | | | | | | 30-60 | | | | | | | | minutes | | | | | | | | before | | | | | | | | breakfast | | | | | | + + + + + + + + | CIPRO | 1 p.o. bid | | | CIPRO | | Laurance W | | | unknown | | | | | Lila MD | | | strength | | | | | | + + + + + + + + | GABAPENTIN | take 2 | | | GABAPENTIN | [id number] | Laurance W | | 300 MG | caps in | | | | 5 | Lila MD | | CAPS | am, 2 caps | | | | | | | | in pm and | | | | | | | | 3 caps at | | | | | | | | bedtime. | | | | | | + + + + + + + + | MECLIZINE | two times | | | MECLIZINE | [id number] | Laurance W | | HCL 25 MG | per day | | | HCL | 0 | Lila MD | | TABS | | | | | | | + + + + + + + + | DIOVAN 320 | 1 tab one | | | VALSARTAN | [id number] | Laurance W | | MG TABS | time per | | | | 4 | Lila MD | | | day | | | | | | + + + + + + + + | VICTOZA 18 | 0.6 mg | | | LIRAGLUTID | [id number] | Laurance W | | MG/3ML | injected | | | E | 2 | Lila MD | | SOPN | daily X 1 | | | | | | | | week 1.2 | | | | | | | | mg | | | | | | | | injected | | | | | | | | martin | | | | | | + + + + + + + + | ASPIRIN | take 1 | | | ASPIRIN | [id number] | Rogers | | 325 MG | tablet by | | | | 1 | Laith LUIS | | TABS | mouth | | | | | | | | daily for | | | | | | | | stroke | | | | | | | | prevention | | | | | | | | . | | | | | | + + + + + + + + | JANUVIA | 1 tab one | | | SITAGLIPTI | 5300376166 | Bailey W | | 100 MG | time per | | | N | 2 | Lila MD | | TABS | day | | | PHOSPHATE | | | + + + + + + + + | DIOVAN 160 | 1 by mouth | | | VALSARTAN | [id number] | Laurance W | | MG TABS | every day | | | | 4 | Lila MD | + + + + + + + + | GABAPENTIN | 2 tabs two | | | GABAPENTIN | 3105300346 | Laurance W | | 300 MG | times per | | | | 5 | Lila MD | | CAPS | day | | | | | | + + + + + + + + | LANTUS 100 | 56 units | | | INSULIN | [id number] | Laurance W | | UNIT/ML | in the | | | GLARGINE | 3 | Lila MD | | SOLN | morning | | | | | | + + + + + + + + | RIOMET 500 | 10ml's two | | | METFORMIN | [id number] | Laurance W | | MG/5ML | times per | | | HCL | 1 | Lila MD | | SOLN | day. | | | | | | | | Liquid | | | | | | | | form due | | | | | | | | to | | | | | | | | dysphagia | | | | | | + + + + + + + + | GABAPENTIN | 1 tab at | | | GABAPENTIN | [id number] | Laurance W | | 100 MG | bedtime | | | | 1 | Lila MD | | CAPS | and slowly | | | | | | | | increase | | | | | | | | as | | | | | | | | tolerated | | | | | | | | to 3 tabs | | | | | | | | three | | | | | | | | times per | | | | | | | | day | | | | | | + + + + + + + + | LANTUS 100 | 28 units | | | INSULIN | 7524510012 | Bailey W | | UNIT/ML | two times | | | GLARGINE | 3 | Lila MD | | SOLN | per day | | | | | | + + + + + + + + | LISINOPRIL | take 1 | | | LISINOPRIL | [id number] | Rogers | | 20 MG | tablet by | | | | 1 | Laith LUIS | | TABS | mouth | | | | | | | | daily | | | | | | + + + + + + + + | MECLIZINE | two times | | | MECLIZINE | 8988986788 | Mariano | | HCL 25 MG | per day | | | HCL | 0 | Ariella | | TABS | | | | | | CCMA | + + + + + + + + | ERGOCALCIF | One | | | ERGOCALCIF | 6728328114 | Mariano | | QUANG 16687 | capsule by | | | QUANG | 3 | Ariella | | UNIT CAPS | mouth | | | | | CCMA | | | once a | | | | | | | | week for 8 | | | | | | | | weeks | | | | | | + + + + + + + + | GABAPENTIN | two times | | | GABAPENTIN | 0765446303 | Mariano | | 100 MG | per day | | | | 1 | Ariella | | CAPS | | | | | | CCMA | + + + + + + + + | METFORMIN | two times | | | METFORMIN | [id number] | Mariano | | HCL 1000 | per day | | | HCL | 5 | Ariella | | MG TABS | | | | | | CCMA | + + + + + + + + | RIOMET 500 | 10ml QAM | | | METFORMIN | 7779489488 | Mariano | | MG/5ML | Liquid due | | | HCL | 1 | Ariella | | SOLN | to | | | | | CCMA | | | Dysphagia | | | | | | + + + + + + + + | ASPIRIN EC | take 1 | | | ASPIRIN | 4264408172 | Mariano | | 325 MG | tablet | | | | 1 | Ariella | | TBEC | daily | | | | | CCMA | + + + + + + + + | ASPIRIN 81 | one time | | | ASPIRIN | 4585111157 | Mariano | | MG ORAL | per day | | | | 5 | Ariella | | TABLET | | | | | | CCMA | + + + + + + + + | GABAPENTIN | 1 by mouth | | | GABAPENTIN | 1402807576 | Laurance W | | 100 MG | one time | | | | 1 | Lila MD | | CAPS | per day | | | | | | | | increase | | | | | | | | slowly to | | | | | | | | 3 by mouth | | | | | | | | three | | | | | | | | times per | | | | | | | | day | | | | | | + + + + + + + + | LIPITOR 20 | take 1 | | | ATORVASTAT | [id number] | Laurance W | | MG TABS | tablet by | | | IN CALCIUM | 3 | Lila MD | | | mouth | | | | | | | | daily | | | | | | + + + + + + + + | ASPIRIN EC | take 1 | | | ASPIRIN | 3698245511 | Rogers | | 325 MG | tablet | | | | 1 | Laith MD | | TBEC | daily | | | | | | + + + + + + + + | RELION | Use to | | | GLUCOSE | [id number] | Bailey W | | BLOOD | test BG | | | BLOOD | 4 | Lila MD | | GLUCOSE | one time | | | | | | | TEST STRP | per day | | | | | | + + + + + + + + | RIOMET 500 | 10ml QAM | | | METFORMIN | 1095664779 | Bailey W | | MG/5ML | Liquid due | | | HCL | 1 | Lila MD | | SOLN | to | | | | | | | | Dysphagia | | | | | | + + + + + + + + | ERGOCALCIF | One | | | ERGOCALCIF | 9233726490 | Laurance W | | QUANG 48018 | capsule by | | | QUANG | 3 | Lila MD | | UNIT CAPS | mouth | | | | | | | | once a | | | | | | | | week for 8 | | | | | | | | weeks | | | | | | + + + + + + + + | COLACE 100 | one tablet | | | DOCUSATE | [id number] | Laurance W | | MG CAPS | by mouth | | | SODIUM | 0 | Lila MD | | | at bedtime | | | | | | + + + + + + + + | GABAPENTIN | one tablet | | | GABAPENTIN | 2298334433 | Laurance W | | 100 MG | by mouth | | | | 1 | Lila MD | | CAPS | three | | | | | | | | times | | | | | | | | daily | | | | | | + + + + + + + + | MECLIZINE | 1 by mouth | | | MECLIZINE | 8860320764 | Laurance W | | HCL 25 MG | 3 times a | | | HCL | 0 | Lila MD | | TABS | day as | | | | | | | | needed for | | | | | | | | Vertigo | | | | | | + + + + + + + + | LISINOPRIL | 1 by mouth | | | LISINOPRIL | 1831972101 | Laurance W | | 5 MG TABS | one time | | | | 1 | Lila MD | | | per day | | | | | | + + + + + + + + | COLACE 100 | one tablet | | | DOCUSATE | [id number] | Laurance W | | MG CAPS | by mouth | | | SODIUM | 0 | Lila MD | | | at bedtime | | | | | | + + + + + + + + | MECLIZINE | 1 by mouth | | | MECLIZINE | 7599305769 | Laurance W | | HCL 25 MG | 3 times a | | | HCL | 0 | Lila MD | | TABS | day as | | | | | | | | needed for | | | | | | | | Vertigo | | | | | | + + + + + + + + | GABAPENTIN | one tablet | | | GABAPENTIN | 3329963665 | Franciscoance W | | 100 MG | by mouth | | | | 1 | Lila MD | | CAPS | three | | | | | | | | times | | | | | | | | daily | | | | | | + + + + + + + + | METFORMIN | one tablet | | | METFORMIN | [id number] | Laurance W | | HCL 1000 | by mouth | | | HCL | 5 | Lila MD | | MG TABS | twice a | | | | | | | | day | | | | | | + + + + + + + + | ASPIRIN 81 | 1 by mouth | | | ASPIRIN | 6153698249 | Laurance W | | MG ORAL | every day | | | | 5 | Lila MD | | TABLET | | | | | | | + + + + + + + + | HUMALOG | BS <150 - | | | INSULIN | [id number] | Tiesha | | 100 | No insulin | | | LISPRO | 1 | Maria Isabel MD | | UNIT/ML | BS | | | (HUMAN) | | | | SOLN | 150-200 | | | | | | | | use 3 | | | | | | | | units BS | | | | | | | | 201-250 us | | | | | | | | 4 units | | | | | | | | BS 251-300 | | | | | | | | use 6 | | | | | | | | units BS | | | | | | | | 301-350 | | | | | | | | use 8 | | | | | | | | units BS | | | | | | | | > 350 use | | | | | | | | 10 units | | | | | | | | and call | | | | | | | | PCP | | | | | | + + + + + + + + | LANTUS 100 | 56 units | | | INSULIN | [id number] | Bailey W | | UNIT/ML | daily | | | GLARGINE | 3 | Lila MD | | SOLN | | | | | | | + + + + + + + + Medications Administered No information available. Allergies, Adverse Reactions, Alerts + + + + + + + | Allergy Name | Reaction | Start Date | Severity | Status | Provider | | | Description | | | | | + + + + + + + | CIPRO IV | Pt states | | Critical | | Lorri Prabhakar | | | she had | | | | NCMA | | | redness | | | | | | | going up her | | | | | | | veins and | | | | | | | was told she | | | | | | | may be | | | | | | | having an | | | | | | | allergic | | | | | | | reaction to | | | | | | | the med | | | | | + + + + + + + | CIPRO IV | Pt states | | Critical | No Longer | David Paez | | | she had | | | Active | Clemente LUIS | | | redness | | | | FACE FACP | | | going up her | | | | | | | veins and | | | | | | | was told she | | | | | | | may be | | | | | | | having an | | | | | | | allergic | | | | | | | reaction to | | | | | | | the med | | | | | + + + + + + + | CIPRO | | | Critical | No Longer | Christen Ramirez | | | | | | Active | [place] | | | | | | | PSYCHOMETRICIAN | + + + + + + + | GABAPENTIN | UNKNOWN | | Mild | No Longer | Bailey W | | | | | | Active | Lila MD | + + + + + + + | GABAPENTIN | UNKNOWN | | Mild | No Longer | Moira | | | | | | Active | Cathy CCMA | + + + + + + + | GABAPENTIN | Vertigo | | Moderate | No Longer | Laurance W | | | | | | Active | Lila MD | + + + + + + + | LISINOPRIL | cough | | Moderate | | Laurance W | | | | | | | Lila MD | + + + + + + + | GABAPENTIN | Vertigo | | Moderate | No Longer | Laurance W | | | | | | Active | Lila MD | + + + + + + + | MECLIZINE | Made her | | Moderate | | Laurance W | | | vertigo | | | | Lila MD | | | worse | | | | | + + + + + + + | MORPHINE | hallucinatio | | Critical | | Laurance W | | | ns | | | | Lila MD | + + + + + + + | VICODIN | Hallucinatio | | Critical | | Laurance W | | | ns | | | | Lila MD | + + + + + + + Results +------+------+-------+------+-------+------+ + | Date | Name | Value | Unit | Range | Flag | Descriptio | | | | | | | | n | +------+------+-------+------+-------+------+ + + + | Office Visit: 3 mo DM f/u | + + + + +---+---+---+---+ + | | BLDGLUCMON | 4 | | | | blood | | | IT | | | | | glucose | | | | | | | | monitoring | + + +---+---+---+---+ + Plan of Care + + + + | Type | Date | Detail | + + + + | Appointment | 01:15 PM | Hector Armendariz DPM, [address] | | | | [address] [facility] [address], | | | | [place], [address], | | | | | + + + + | Referral | | Ophthalmology Consult | | | | [facility] Rose, | | | | [address], [place], | | | | [place], [address] | | | | | + + + + | Referral | | Ophthalmology Consult | | | | [facility] Rose, | | | | [address], [place], | | | | [place], [address] | | | | | + + + + | Referral | | Orthopedic Consult | | | | [facility] | | | | [facility], [address], | | | | [place], [address] | | | | | + + + + | Referral | | Ophthalmology Consult | | | | Huong Rose, | | | | [address], [place], | | | | [place], [address] | | | | | + + + + | Referral | | Physical Therapy Evaluation | | | | [facility], [address] | | | [address] | | | | [address], [place], [address] | | | | | | | | | + + + + | Referral | | Podiatry Consult | | | | Hector Armendariz, | | | | [address] | | | | [address], [place], [place], | | | | [address] | | | | | + + + + | Referral | | [facility] | | | | Dian Atkins, [address] | | | [address], | | | | [place], [address] | | | | | + + + + +---+ + | | Referral excluded from report: | +---+ + + + + + | Referral | | [facility] | | | | Dian Atkins, [address] | | | | [address], | | | | [place], [address] | | | | | + + + + | Pending order | | Glyco Hemoglobin, A1C | + + + + | Pending order | | Glyco Hemoglobin, A1C | + + + + | Pending order | | Urinalysis Culture If | | | | Indicat | + + + + | Pending order | | Glyco Hemoglobin, A1C | + + + + | Pending order | | Glyco Hemoglobin, A1C | + + + + | Pending order | | Glyco Hemoglobin, A1C | + + + + | Patient education | | HYPOKALEMIA | + + + + | Patient education | | HYPOKALEMIA | + + + + | Patient education | | FOOT%20CARE%20FOR%20PEOPLE% | | | | 20WITH%20DIABETES | + + + + | Patient education | | type%202%20diabetes%20in%20 | | | | adults | + + + + Procedures + + + + + | Code | Procedure Name | Date | Entry Date | + + + + + | [id number] | Overweight | | | + + + + + | [id number] | Overweight | | | + + + + + | [id number] | Overweight | | | + + + + + | [id number] | Overweight | | | + + + + + | CPT-82362 | Glucose by monitor | | | + + + + + | [id number] | Overweight | | | + + + + + | UA CULT IF MULTIPLE | Urinalysis Culture | | | | | If Indicat | | | + + + + + | GLYCO HGB 27043 | Glyco Hemoglobin, | | | | | A1C | | | + + + + + | CPT-02978 | UA Dipstick | | | + + + + + | CPT-40459 83629 | XR Knee WgtB Bilat | | | | | AP W 1-2V-Rt | | | + + + + + | [id number] | Overweight | | | + + + + + | GLYCO HGB 57193 | Glyco Hemoglobin, | | | | | A1C | | | + + + + + | CPT-21852 | Adm 1st Inj No | | | | | counseling or >18 | | | + + + + + | CPT-87328 | Prevnar 13 | | | | | (Pneumococcal >7 | | | + + + + + | [id number] | Overweight | | | + + + + + | CPT-85457 | Physical Therapy | | | | | Evaluation | | | + + + + + | CPT-09759 | Glucose by monitor | | | + + + + + | [id number] | Overweight | | | + + + + + | [id number] | Overweight | | | + + + + + | GLYCO HGB 54471 | Glyco Hemoglobin, | | | | | A1C | | | + + + + + | GLYCO HGB 05682 | Glyco Hemoglobin, | | | | | A1C | | | + + + + + | SCT-[id number] | Overweight | | | + + + + + | RISK 58379 | Lipid Profile | | | + + + + + | GLYCO HGB 57459 | Glyco Hemoglobin, | | | | | A1C | | | + + + + + | CPT-32335 | IV infusion -1st hr | | | | | (Rehydration) | | | + + + + + | CPT-85931 | Glucose by monitor | | | + + + + + | CPT-47117 | UA Dipstick | | | + + + + + | CPT-45327 | UA Dipstick | | | + + + + + +---+ + | | Order excluded from report: | +---+ + + + + + + | VIT D HYDR 50639 | Vit D, 25 hydroxy | | | + + + + + Vital Signs + + +-------+---------+ + | Date | Name | Value | Unit | Description | + + +-------+---------+ + | | BMI (Body Mass | 36.65 | kg/m2 | Body Mass Index | | | Index) | | | [Ratio] | + + +-------+---------+ + | | BP Diastolic | 64 | mm[Hg] | blood pressure, | | | | | | diastolic | + + +-------+---------+ + | | BP Diastolic | 64 | mm[Hg] | blood pressure, | | | | | | diastolic, | | | | | | second | | | | | | observation | + + +-------+---------+ + | | BP Systolic | 128 | mm[Hg] | blood pressure, | | | | | | systolic, | | | | | | second | | | | | | observation | + + +-------+---------+ + | | BP Systolic | 128 | mm[Hg] | blood pressure, | | | | | | systolic | + + +-------+---------+ + | | Body | 98.7 | [degF] | temperature E&M | | | Temperature | | | | + + +-------+---------+ + | | Heart Rate | 83 | /min | pulse rate E&M | + + +-------+---------+ + | | Height | 60 | [in_us] | height E&M | + + +-------+---------+ + | | Weight Measured | 187 | [lb_av] | weight E&M | + + +-------+---------+ + | | BMI (Body Mass | 35.91 | kg/m2 | Body Mass Index | | | Index) | | | [Ratio] | + + +-------+---------+ + | | BP Diastolic | 70 | mm[Hg] | blood pressure, | | | | | | diastolic | + + +-------+---------+ + | | BP Diastolic | 70 | mm[Hg] | blood pressure, | | | | | | diastolic, | | | | | | second | | | | | | observation | + + +-------+---------+ + | | BP Systolic | 132 | mm[Hg] | blood pressure, | | | | | | systolic | + + +-------+---------+ + | | BP Systolic | 132 | mm[Hg] | blood pressure, | | | | | | systolic, | | | | | | second | | | | | | observation | + + +-------+---------+ + | | Body | 97.7 | [degF] | temperature E&M | | | Temperature | | | | + + +-------+---------+ + | | Heart Rate | 84 | /min | pulse rate E&M | + + +-------+---------+ + | | Height | 60 | [in_us] | height E&M | + + +-------+---------+ + | | Respiratory | 15 | /min | respiratory | | | Rate | | | rate E&M | + + +-------+---------+ + | | Weight Measured | 183.2 | [lb_av] | weight E&M | + + +-------+---------+ + | | BMI (Body Mass | 36.57 | kg/m2 | Body Mass Index | | | Index) | | | [Ratio] | + + +-------+---------+ + | | BP Diastolic | 71 | mm[Hg] | blood pressure, | | | | | | diastolic, | | | | | | second | | | | | | observation | + + +-------+---------+ + | | BP Diastolic | 71 | mm[Hg] | blood pressure, | | | | | | diastolic | + + +-------+---------+ + | | BP Systolic | 126 | mm[Hg] | blood pressure, | | | | | | systolic, | | | | | | second | | | | | | observation | + + +-------+---------+ + | | BP Systolic | 126 | mm[Hg] | blood pressure, | | | | | | systolic | + + +-------+---------+ + | | Heart Rate | 76 | /min | pulse rate E&M | + + +-------+---------+ + | | Height | 60 | [in_us] | height E&M | + + +-------+---------+ + | | Weight Measured | 186.6 | [lb_av] | weight E&M | + + +-------+---------+ + | | BMI (Body Mass | 36.16 | kg/m2 | Body Mass Index | | | Index) | | | [Ratio] | + + +-------+---------+ + | | BP Diastolic | 59 | mm[Hg] | blood pressure, | | | | | | diastolic | + + +-------+---------+ + | | BP Systolic | 134 | mm[Hg] | blood pressure, | | | | | | systolic | + + +-------+---------+ + | | Heart Rate | 75 | /min | pulse rate E&M | + + +-------+---------+ + | | Height | 60 | [in_us] | height E&M | + + +-------+---------+ + | | Weight Measured | 184.5 | [lb_av] | weight E&M | + + +-------+---------+ + | | BMI (Body Mass | 37.12 | kg/m2 | Body Mass Index | | | Index) | | | [Ratio] | + + +-------+---------+ + | | BP Diastolic | 74 | mm[Hg] | blood pressure, | | | | | | diastolic | + + +-------+---------+ + | | BP Systolic | 140 | mm[Hg] | blood pressure, | | | | | | systolic | + + +-------+---------+ + | | Heart Rate | 78 | /min | pulse rate E&M | + + +-------+---------+ + | | Height | 60 | [in_us] | height E&M | + + +-------+---------+ + | | Weight Measured | 189.4 | [lb_av] | weight E&M | + + +-------+---------+ + | | BMI (Body Mass | 36.46 | kg/m2 | Body Mass Index | | | Index) | | | [Ratio] | + + +-------+---------+ + | | BP Diastolic | 66 | mm[Hg] | blood pressure, | | | | | | diastolic | + + +-------+---------+ + | | BP Diastolic | 66 | mm[Hg] | blood pressure, | | | | | | diastolic, | | | | | | second | | | | | | observation | + + +-------+---------+ + | | BP Systolic | 130 | mm[Hg] | blood pressure, | | | | | | systolic | + + +-------+---------+ + | | BP Systolic | 130 | mm[Hg] | blood pressure, | | | | | | systolic, | | | | | | second | | | | | | observation | + + +-------+---------+ + | | Body | 98.2 | [degF] | temperature E&M | | | Temperature | | | | + + +-------+---------+ + | | Heart Rate | 86 | /min | pulse rate E&M | + + +-------+---------+ + | | Height | 60 | [in_us] | height E&M | + + +-------+---------+ + | | Weight Measured | 186.0 | [lb_av] | weight E&M | + + +-------+---------+ + | | BMI (Body Mass | 36.54 | kg/m2 | Body Mass Index | | | Index) | | | [Ratio] | + + +-------+---------+ + | | BP Diastolic | 59 | mm[Hg] | blood pressure, | | | | | | diastolic | + + +-------+---------+ + | | BP Diastolic | 59 | mm[Hg] | blood pressure, | | | | | | diastolic, | | | | | | second | | | | | | observation | + + +-------+---------+ + | | BP Systolic | 118 | mm[Hg] | blood pressure, | | | | | | systolic | + + +-------+---------+ + | | BP Systolic | 118 | mm[Hg] | blood pressure, | | | | | | systolic, | | | | | | second | | | | | | observation | + + +-------+---------+ + | | Body | 97.5 | [degF] | temperature E&M | | | Temperature | | | | + + +-------+---------+ + | | Heart Rate | 88 | /min | pulse rate E&M | + + +-------+---------+ + | | Height | 60 | [in_us] | height E&M | + + +-------+---------+ + | | Respiratory | 16 | /min | respiratory | | | Rate | | | rate E&M | + + +-------+---------+ + | | Weight Measured | 186.4 | [lb_av] | weight E&M | + + +-------+---------+ + | | BMI (Body Mass | 36.03 | kg/m2 | Body Mass Index | | | Index) | | | [Ratio] | + + +-------+---------+ + | | BP Diastolic | 88 | mm[Hg] | blood pressure, | | | | | | diastolic | + + +-------+---------+ + | | BP Systolic | 142 | mm[Hg] | blood pressure, | | | | | | systolic | + + +-------+---------+ + | | Heart Rate | 71 | /min | pulse rate E&M | + + +-------+---------+ + | | Weight Measured | 183.8 | [lb_av] | weight E&M | + + +-------+---------+ + | | BMI (Body Mass | 35.87 | kg/m2 | Body Mass Index | | | Index) | | | [Ratio] | + + +-------+---------+ + | | BP Diastolic | 72 | mm[Hg] | blood pressure, | | | | | | diastolic | + + +-------+---------+ + | | BP Systolic | 130 | mm[Hg] | blood pressure, | | | | | | systolic | + + +-------+---------+ + | | Heart Rate | 94 | /min | pulse rate E&M | + + +-------+---------+ + | | Height | 60 | [in_us] | height E&M | + + +-------+---------+ + | | Weight Measured | 183 | [lb_av] | weight E&M | + + +-------+---------+ + | | BMI (Body Mass | 34.51 | kg/m2 | Body Mass Index | | | Index) | | | [Ratio] | + + +-------+---------+ + | | BP Diastolic | 62 | mm[Hg] | blood pressure, | | | | | | diastolic, | | | | | | second | | | | | | observation | + + +-------+---------+ + | | BP Diastolic | 62 | mm[Hg] | blood pressure, | | | | | | diastolic | + + +-------+---------+ + | | BP Systolic | 106 | mm[Hg] | blood pressure, | | | | | | systolic | + + +-------+---------+ + | | BP Systolic | 106 | mm[Hg] | blood pressure, | | | | | | systolic, | | | | | | second | | | | | | observation | + + +-------+---------+ + | | Body | 98.2 | [degF] | temperature E&M | | | Temperature | | | | + + +-------+---------+ + | | Heart Rate | 84 | /min | pulse rate E&M | + + +-------+---------+ + | | Height | 61 | [in_us] | height E&M | + + +-------+---------+ + | | Respiratory | 19 | /min | respiratory | | | Rate | | | rate E&M | + + +-------+---------+ + | | Weight Measured | 182 | [lb_av] | weight E&M | + + +-------+---------+ + | | BMI (Body Mass | 34.36 | kg/m2 | Body Mass Index | | | Index) | | | [Ratio] | + + +-------+---------+ + | | BP Diastolic | 60 | mm[Hg] | blood pressure, | | | | | | diastolic | + + +-------+---------+ + | | BP Diastolic | 60 | mm[Hg] | blood pressure, | | | | | | diastolic, | | | | | | second | | | | | | observation | + + +-------+---------+ + | | BP Systolic | 108 | mm[Hg] | blood pressure, | | | | | | systolic, | | | | | | second | | | | | | observation | + + +-------+---------+ + | | BP Systolic | 108 | mm[Hg] | blood pressure, | | | | | | systolic | + + +-------+---------+ + | | Height | 61 | [in_us] | height E&M | + + +-------+---------+ + | | Weight Measured | 181.2 | [lb_av] | weight E&M | + + +-------+---------+ + | | BMI (Body Mass | 34.70 | kg/m2 | Body Mass Index | | | Index) | | | [Ratio] | + + +-------+---------+ + | | BP Diastolic | 72 | mm[Hg] | blood pressure, | | | | | | diastolic | + + +-------+---------+ + | | BP Diastolic | 72 | mm[Hg] | blood pressure, | | | | | | diastolic, | | | | | | second | | | | | | observation | + + +-------+---------+ + | | BP Systolic | 126 | mm[Hg] | blood pressure, | | | | | | systolic | + + +-------+---------+ + | | BP Systolic | 126 | mm[Hg] | blood pressure, | | | | | | systolic, | | | | | | second | | | | | | observation | + + +-------+---------+ + | | Body | 97.0 | [degF] | temperature E&M | | | Temperature | | | | + + +-------+---------+ + | | Heart Rate | 84 | /min | pulse rate E&M | + + +-------+---------+ + | | Height | 61 | [in_us] | height E&M | + + +-------+---------+ + | | Respiratory | 15 | /min | respiratory | | | Rate | | | rate E&M | + + +-------+---------+ + | | Weight Measured | 183 | [lb_av] | weight E&M | + + +-------+---------+ + | | BMI (Body Mass | 33.22 | kg/m2 | Body Mass Index | | | Index) | | | [Ratio] | + + +-------+---------+ + | | BP Diastolic | 68 | mm[Hg] | blood pressure, | | | | | | diastolic | + + +-------+---------+ + | | BP Diastolic | 68 | mm[Hg] | blood pressure, | | | | | | diastolic, | | | | | | second | | | | | | observation | + + +-------+---------+ + | | BP Systolic | 128 | mm[Hg] | blood pressure, | | | | | | systolic | + + +-------+---------+ + | | BP Systolic | 128 | mm[Hg] | blood pressure, | | | | | | systolic, | | | | | | second | | | | | | observation | + + +-------+---------+ + | | Body | 97.3 | [degF] | temperature E&M | | | Temperature | | | | + + +-------+---------+ + | | Heart Rate | 82 | /min | pulse rate E&M | + + +-------+---------+ + | | Height | 61 | [in_us] | height E&M | + + +-------+---------+ + | | Respiratory | 16 | /min | respiratory | | | Rate | | | rate E&M | + + +-------+---------+ + | | Weight Measured | 175.2 | [lb_av] | weight E&M | + + +-------+---------+ + Social History + + + +-------+ + | Concept | Observation | Observation | Units | Start Date | | Description | Name | Value | | | + + + +-------+ + | Details of drug | DRUG USE | none | | | | misuse | | | | | | behavior | | | | | + + + +-------+ + | Never smoker | SMOK STATUS | never smoker | | | + + + +-------+ + | Details of drug | DRUG USE | none | | | | misuse | | | | | | behavior | | | | | + + + +-------+ + | Never smoker | SMOK STATUS | never smoker | | | + + + +-------+ + | Never smoker | SMOK STATUS | never smoker | | | + + + +-------+ + | Never smoker | SMOK STATUS | never smoker | | | + + + +-------+ + | Never smoker | SMOK STATUS | never smoker | | | + + + +-------+ + | Details of drug | DRUG USE | none | | | | misuse | | | | | | behavior | | | | | + + + +-------+ + | Never smoker | SMOK STATUS | never smoker | | | + + + +-------+ + | Details of drug | DRUG USE | none | | | | misuse | | | | | | behavior | | | | | + + + +-------+ + | Never smoker | SMOK STATUS | never smoker | | | + + + +-------+ + | Never smoker | SMOK STATUS | never smoker | | | + + + +-------+ + | Never smoker | SMOK STATUS | never smoker | | | + + + +-------+ + | Never smoker | SMOK STATUS | never smoker | | | + + + +-------+ + | Never smoker | SMOK STATUS | never smoker | | | + + + +-------+ + | Details of drug | DRUG USE | none | | | | misuse | | | | | | behavior | | | | | + + + +-------+ + | Never smoker | SMOK STATUS | never smoker | | | + + + +-------+ + | Details of drug | DRUG USE | none | | | | misuse | | | | | | behavior | | | | | + + + +-------+ + | Never smoker | SMOK STATUS | never smoker | | | + + + +-------+ + | Details of drug | DRUG USE | none | | | | misuse | | | | | | behavior | | | | | + + + +-------+ + | Never smoker | SMOK STATUS | never smoker | | | + + + +-------+ + | Never smoker | SMOK STATUS | never smoker | | | + + + +-------+ + | Never smoker | SMOK STATUS | never smoker | | | + + + +-------+ + | Never smoker | SMOK STATUS | never smoker | | | + + + +-------+ + | Never smoker | SMOK STATUS | never smoker | | | + + + +-------+ + | Details of drug | DRUG USE | none | | | | misuse | | | | | | behavior | | | | | + + + +-------+ + | Never smoker | SMOK STATUS | never smoker | | | + + + +-------+ + | Never smoker | SMOK STATUS | never smoker | | | + + + +-------+ + | Never smoker | SMOK STATUS | never smoker | | | + + + +-------+ + | Details of drug | DRUG USE | none | | | | misuse | | | | | | behavior | | | | | + + + +-------+ + | Never smoker | SMOK STATUS | never smoker | | | + + + +-------+ + | Never smoker | SMOK STATUS | never smoker | | | + + + +-------+ + | Never smoker | SMOK STATUS | never smoker | | | + + + +-------+ + | Details of drug | DRUG USE | none | | | | misuse | | | | | | behavior | | | | | + + + +-------+ + | Never smoker | SMOK STATUS | never smoker | | | + + + +-------+ + | Never smoker | SMOK STATUS | never smoker | | | + + + +-------+ + | Never smoker | SMOK STATUS | never smoker | | | + + + +-------+ + | Never smoker | SMOK STATUS | never smoker | | | + + + +-------+ + | Details of drug | DRUG USE | none | | | | misuse | | | | | | behavior | | | | | + + + +-------+ + | Never smoker | SMOK STATUS | never smoker | | | + + + +-------+ + | Never smoker | SMOK STATUS | never smoker | | | + + + +-------+ + | Never smoker | SMOK STATUS | never smoker | | | + + + +-------+ + | Never smoker | SMOK STATUS | never smoker | | | + + + +-------+ + | Never smoker | SMOK STATUS | never smoker | | | + + + +-------+ + | Never smoker | SMOK STATUS | never smoker | | | + + + +-------+ + | Never smoker | SMOK STATUS | never smoker | | | + + + +-------+ + | Never smoker | SMOK STATUS | never smoker | | | + + + +-------+ + | Never smoker | SMOK STATUS | never smoker | | | + + + +-------+ + | Never smoker | SMOK STATUS | never smoker | | | + + + +-------+ + | Never smoker | SMOK STATUS | never smoker | | | + + + +-------+ + | Never smoker | SMOK STATUS | never smoker | | | + + + +-------+ + | Never smoker | SMOK STATUS | never smoker | | | + + + +-------+ + | Never smoker | SMOK STATUS | never smoker | | | + + + +-------+ + | Alcohol use | ETOH USE | never | | | + + + +-------+ + | Details of drug | DRUG USE | none | | | | misuse | | | | | | behavior | | | | | + + + +-------+ + | Feeling down, | PHQ9 Q2 | 0 | | | | depressed, or | | | | | | hopeless? | | | | | + + + +-------+ + | Never smoker | SMOK STATUS | never smoker | | | + + + +-------+ + | Little interest | PHQ9 Q1 | 2 | | | | or pleasure in | | | | | | doing things? | | | | | + + + +-------+ + | Never smoker | SMOK STATUS | never smoker | | | + + + +-------+ + | Never smoker | SMOK STATUS | never smoker | | | + + + +-------+ + | Never smoker | SMOK STATUS | never smoker | | | + + + +-------+ + | Never smoker | SMOK STATUS | never smoker | | | + + + +-------+ +
--- OUTSIDE RECORDS SUMMARY | ~2019-03-25 | XMS ---
Demographics + + + | Address | [facility] [address] | | | [place], [place] [address] | + + + | Home Phone | | + + + | Preferred Language | Unknown | + + + | Marital Status | D | + + + | Zoroastrian Affiliation | Unknown | + + + | Race | White | + + + | Ethnic Group | or | + + + Author + + + | Author | [facility] | + + + | Organization | [facility] | + + + | Address | [address] | | | [place], [place] [address] | + + + | Phone | Unavailable | + + + Care Team Providers + + + + | Care Pattern Developer Name | Role | Phone | + + + + Unavailable | Unavailable | + + + + Reason for Visit + + + | Reason For Visit Description | Start Date | + + + | General Notes | | + + + | | Problem List: (Reviewed) Med List: | | | (Reconciled) BASAGLAR KWIKPEN 100 UNIT/ML | | | SUBCUTANEOUS SOLUTION PEN-INJEC (INSULIN | | | GLARGINE) 68 Units every morning (34 units | | | on each side); Route: SUBCUTANEOUS | | | IRBESARTAN 300 MG ORAL TABLET (IRBESARTAN) | | | Take one tablet daily; Route: ORAL | | | LIPITOR 20 MG ORAL TABLET (ATORVASTATIN | | | CALCIUM) take 1 tablet by mouth daily in | | | the evening PLAVIX 75 MG ORAL TABLET | | | (CLOPIDOGREL BISULFATE) 1 tab by mouth one | | | time per day in the evening OMEPRAZOLE | | | 40 MG ORAL CAPSULE DELAYED RELEASE | | | (OMEPRAZOLE) Take one by mouth one time | | | per day 30-60 minutes before breakfast as | | | needed LASIX 80 MG ORAL TABLET | | | (FUROSEMIDE) 1 tab by mouth one time per | | | day in the AM; Route: ORAL POTASSIUM | | | CHLORIDE ER 10 MEQ ORAL CAPSULE EXTENDED | | | RELEASE (POTASSIUM CHLORIDE) Take one cap | | | daily in the AM; Route: ORAL VITAMIN D | | | 1000 UNIT ORAL TABLET (CHOLECALCIFEROL) | | | Take one tablet daily in the AM; Route: | | | ORAL COLACE 100 MG ORAL CAPSULE (DOCUSATE | | | SODIUM) 1 pill twice daily for soft | | | stools; Route: ORAL MECLIZINE HCL 25 MG | | | ORAL TABLET (MECLIZINE HCL) One tab by | | | mouth three times per day; Route: ORAL | | | NOVOLOG 100 UNIT/ML SUBCUTANEOUS SOLUTION | | | (INSULIN ASPART) 12 Units before meals | | | SS:150-175:2U,176-200:4U, 201-250: 6U, | | | 251-300: 8U, If greater than 300 please | | | call provider; Route: SUBCUTANEOUS | | | GLIPIZIDE XL 2.5 MG ORAL TABLET EXTENDED | | | RELEASE 24 HOUR (GLIPIZIDE) Take 1 tablet | | | p.o. q.a.m.; Route: ORAL CLONAZEPAM 0.5 | | | MG ORAL TABLET (CLONAZEPAM) Take one | | | tablet every 24 hours as needed for | | | anxiety; Route: ORAL PROMETHAZINE HCL 25 | | | MG ORAL TABLET (PROMETHAZINE HCL) Take one | | | tablet by mouth every 4 hours as needed | | | for nausea and vomiting; Route: ORAL | | | LYRICA 100 MG ORAL CAPSULE (PREGABALIN) 1 | | | capsule three times daily for neuropathy; | | | Route: ORAL MIRALAX ORAL POWDER | | | (POLYETHYLENE GLYCOL 3350) 17 gm daily | | | stirred into 4-8 ounces of water, juice or | | | other liquid; Route: ORAL BD INSULIN | | | SYRINGE ULTRAFINE 29G X 1/2" 0.5 ML | | | (INSULIN SYRINGE-NEEDLE U-100) Use to | | | inject insulin 5 times per day; Route: IN | | | VITRO ONETOUCH ULTRA BLUE IN VITRO STRIP | | | (GLUCOSE BLOOD) Use strip to checl glucose | | | four times daily. Dx: 11.65 SMITH: 99 | | | years; Route: IN VITRO BD PEN NEEDLE | | | SHORT U/F 31G X 8 MM (INSULIN PEN NEEDLE) | | | USE PEN NEEDLE(S) 4 TIMES DAILY Dx Code | | | E11.40 RELION INSULIN SYRINGE 31G X 5/16" | | | 0.5 ML (INSULIN SYRINGE-NEEDLE U-100) USE | | | SYRINGE 4 TIMES DAILY Dx Code E11.40 | | | ONETOUCH VERIO W/DEVICE KIT (BLOOD GLUCOSE | | | MONITORING SUPPL) Use to test glucose | | | four times daily Dx 11.65, SMITH: 99 years | | | VITAMIN D3 1000 UNIT TABS | | | (CHOLECALCIFEROL) TAKE 1 TABLET BY MOUTH | | | ONCE DAILY IN THE MORNING VOLTAREN 1 % | | | TRANSDERMAL GEL (DICLOFENAC SODIUM) apply | | | 3-4 times QD PRN pain, max 4 grams per | | | application; Route: TRANSDERMAL | | | FUROSEMIDE 80 MG TABS (FUROSEMIDE) TAKE 1 | | | TABLET BY MOUTH ONCE DAILY IN THE MORNING | | | LINZESS 145 MCG ORAL CAPSULE | | | (LINACLOTIDE) Take one tablet daily for | | | constipation.; Route: ORAL Allergy | | | List: (Reviewed) VICODIN (Critical) | | | MORPHINE (Critical) * CIPRO IV (Critical) | | | * MECLIZINE (Moderate) LISINOPRIL | | | (Moderate) Meaningful Use Med List: | | | (Reconciled) Patient is a | | | 72-year-old single nonsmoker who presents | | | with her daughter today for diabetic shoe | | | evaluation she is neuropathy in both feet. | | | She felt a little bit dizzy today so the | | | nurse checked her sugar and it was 198. | | | Last hemoglobin A1c was 9.6. 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 Patient's blood sugar this | | | morning was 218, but patient states she is | | | extremely dizzy and has not had anything | | | to eat today, due to "just getting up, nor | | | had any of medications today." Patient | | | states she is just dizzy, no other | | | symptoms. | | | .......................................... | | | .........................Geetha Nguyen [facility] | | | February 25, 2018 1:30 PM | | | Risk Factors Tobacco Use: never smoker | | | Alcohol Use:never Drug Use: none | | | Comments: Denies all drug use | | | .......................................... 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 Weight: 186.0 lbs. Temp: | | | 98.2deg.(tympanic) Pulse: 86(regular) | | | BMI: 36.46 Wt ch.20 Pulse | | | Oximetry: O2 sat. at rest is 97% on RA | | | BP #1: 130/66 Position:sitting Site:left | | | arm Time:1:30 PM Vitals entered by: Geetha | | | Patrick AZAR on February 25, 2018 1:30 PM | | | Health Risk Screening 1. Do you now or | | | have you ever used tobacco? Never 2. How | | | many times in the past year have you had 4 | | | or more drinks in a day? | | | None 3. Do | | | you sometimes use drugs recreationally, | | | including marijuana without a Medical | | | Marijuana Card, or prescription drugs more | | | than they are prescribed for or just for | | | the way they make you feel? None In the | | | last two weeks have you been bothered by: | | | 4. A). Little interest or pleasure in | | | doing things? No B). Feeling down, | | | depressed or hopeless? No Physical | | | exam shows an alert white female with | | | stable vital signs Diabetic Foot Exam | | | | | | (VASCULAR) | | | | RIGHT| LEFT| | | | | | | Dorsalis Pedis | | | | diminished| diminished| Posterior | | | Tibial | diminished| | | | diminished| Capillary Refill | | | | diminished| diminished| | | | | | | (SENSORY) | | | | RIGHT| LEFT| | | | | | | Monofilament | | | | diminished| diminished| | | | Temperature | normal| | | | normal| Comments: Foot exam is without | | | lesions, ulcerations, macerations, | | | calluses or corns. Office Labs Blood | | | Tests Glucose (random): 198 mg/dL | | | Comments: | | | .......................................... | | | .........................Geetha Nguyen CCM | | | February 25, 2018 3:00 PM | | | Assessment plan diabetes mellitus 2 under | | | poor control-followup with PCP Lower | | | extremity diabetic peripheral vascular | | | disease-footcare education given Lower | | | extremity diabetic neuropathy-footcare | | | education given him a prescription for | | | diabetic shoes was written. Followup with | | | PCP In 1- 2 months for recheck- | | | | + + + Assessments No information available. Chief Complaint No information available. History of Past Illness No information available.
--- OUTSIDE RECORDS SUMMARY | ~2019-03-25 | XMS | Clinical Summary ---
Demographics + + + | Address | [address] [place] [address] | | | [place] [address] | + + + | Home Phone | | + + + | Preferred Language | Unknown | + + + | Marital Status | D | + + + | Congregational Affiliation | Unknown | + + + | Race | White | + + + | Ethnic Group | or | + + + Author + + + | Author | [facility] | + + + | Organization | [facility] | + + + | Address | [address] | | | [place] [address] | + + + | Phone | Unavailable | + + + Care Team Providers + +------+ + | Care E Business Project Manager Name | Role | Phone | + +------+ + | Christen Pablo | PCP | | + +------+ + Conditions or Problems +---------+---------+---------+---------+---------+---------+---------+---------+---------+ | Problem [...] | | tion | | +---------+---------+---------+---------+---------+---------+---------+---------+---------+ | MUSCLE | [id number] | | Active | | Christen | | Muscle | | | PAIN | 1 | 07 | | /07 | J. | | pain | | | | (SNOMED | | | | [place] | | | | | | CT) | | | | ta INDEPENDENT AGENT MUSIC EDUCATION | | | | +---------+---------+---------+---------+---------+---------+---------+---------+---------+ | DIABETE | [id number] | | Active | | David W | | Diabeti | | | S | [id number] | /11 | | /12 | Theen | | c | | | MELLITU | (SNOMED | | | | MD FACE | | periphe | | | S, TYPE | CT) | | | | FACP | | ral | | | II | | | | | | | neuropa | | | WITH | | | | | | | thy | | | PERIPHE | | | | | | | associa | | | RAL | | | | | | | bryce | | | NEUROPA | | | | | | | with | | | THY, | | | | | | | type 2 | | | UNCONTR | | | | | | | diabete | | | OLLED | | | | | | | s | | | | | | | | | | mellitu | | | | | | | | | | s | | +---------+---------+---------+---------+---------+---------+---------+---------+---------+ | MILD | [id number] | | Active | | Maulik | | Mild | | | COGNITI | | / | | | Mendels | | cogniti [...] uterus | | +---------+---------+---------+---------+---------+---------+---------+---------+---------+ | COLONIC | [id number] | | Active | | Emeka | | Adenoma | | | | 06 | /13 | | /13 | Petre | | tous | | | POLYPS, | (SNOMED | | | | MD | | polyp | | | | CT) | | | | | | of | | | ADENOMA | | | | | | | colon | | | TOUS | | | | | | | | | +---------+---------+---------+---------+---------+---------+---------+---------+---------+ | CONSTIP | [id number] | | Active | | Emeka | | Constip | | | ATION | 8 | /13 | | /13 | Petre | | ation | | | | (SNOMED | | | | MD | | | | | | CT) | | | | | | | | +---------+---------+---------+---------+---------+---------+---------+---------+---------+ | CHANGE | [id number] | | Active | | Emeka | | Altered | | | IN | 9 | /13 | | /13 | Petre | | bowel | | | BOWEL | (SNOMED | | | | MD | | functio | | | HABITS | CT) | | | | | | n | | +---------+---------+---------+---------+---------+---------+---------+---------+---------+ | DECREAS | [id number] | | Active | | Emeka | | Decreas | | | ED | 6 | /13 | | /13 | Petre | | e in | | | APPETIT | (SNOMED | | | | MD | | appetit | | | E | CT) | | | | | | e | | +---------+---------+---------+---------+---------+---------+---------+---------+---------+ | WEIGHT | [id number] | | Active | | Emeka | | Abnorma | | | LOSS | 01 | | | /13 | Petre | | l | | | ABNORMA | (SNOMED | | | | MD | | weight | | | L | CT) | | | | | | loss | | +---------+---------+---------+---------+---------+---------+---------+---------+---------+ | NAUSEA | [id number] | | Active | | Emeka | | Nausea | | | ALONE | 07 | /13 | | /13 | Petre | | | | | | (SNOMED | | | | MD | | | | | | CT) | | | | | | | | +---------+---------+---------+---------+---------+---------+---------+---------+---------+ | RECTAL | [id number] | | Active | | Emeka | | Rectal | | | BLEEDIN | 2 | /13 | | /13 | Petre | | hemorrh | | | G | (SNOMED | | | | MD | | age | | | | CT) | | | | | | | | +---------+---------+---------+---------+---------+---------+---------+---------+---------+ | DEMENTI | [id number] | | Active | | Christen | | Dementi | | | A | 6 | /10 | | /10 | J. | | a | | | WITHOUT | (SNOMED | | | | [place] | | | | | | CT) | | | | ta INDEPENDENT AGENT MUSIC EDUCATION | | | | | BEHAVIO | | | | | | | | | | RAL | | | | | | | | | | DISTURB | | | | | | | | | | ANCE | | | | | | | | | +---------+---------+---------+---------+---------+---------+---------+---------+---------+ | CHRONIC | [id number] | | Active | | Christen | | Chronic | | | | 03 | /10 | | /10 | J. | | | | | PROGRES | (SNOMED | | | | [place] | | progres | | | SIVE | CT) | | | | ta INDEPENDENT AGENT MUSIC EDUCATION | | sive | | | RENAL | | | | | | | renal | | | FAILURE | | | | | | | failure | | +---------+---------+---------+---------+---------+---------+---------+---------+---------+ | ANEMIA | [id number] | | Active | | Christen | | Anemia | | | | 00 | / | | / | J. | | | | | | (SNOMED | | | | [place] | | | | | | CT) | | | | ta INDEPENDENT AGENT MUSIC EDUCATION | | | | +---------+---------+---------+---------+---------+---------+---------+---------+---------+ | DEMENTI | [id number] | | Active | | Christen | | Procedu | | | A | | | | | J. | | re | | | SCREENI | (SNOMED | | | | [place] | | carried | | | NG | CT) | | | | ta INDEPENDENT AGENT MUSIC EDUCATION | | out on | | | | | | | | | | | | | | | | | | | | subject | | +---------+---------+---------+---------+---------+---------+---------+---------+---------+ | FALL | [id number] | | Active | | Christen | | At risk | | | RISK | | | | | J. | | for | | | | (SNOMED | | | | [place] | | falls | | | | CT) | | | | ta INDEPENDENT AGENT MUSIC EDUCATION | | | | +---------+---------+---------+---------+---------+---------+---------+---------+---------+ | DIABETE | [id number] | | Resolve | | Christen | | Diabeti | | | S | [id number] | / | d | / | J. | | c | | | MELLITU | (SNOMED | | | | [place] | | periphe | | | S, TYPE | CT) | | | | ta INDEPENDENT AGENT MUSIC EDUCATION | | ral | | | II | | | | | | | neuropa | | | WITH | | | | | | | thy | | | PERIPHE | | | | | | | associa | | | RAL | | | | | | | bryce | | | NEUROPA | | | | | | | with | | | THY, | | | | | | | type 2 | | | UNCONTR | | | | | | | diabete | | | OLLED | | | | | | | s | | | | | | | | | | mellitu | | | | | | | | | | s | | +---------+---------+---------+---------+---------+---------+---------+---------+---------+ | CORNS | [id number] | | Inactiv | | Kali | | Corns | | | AND | 00 | / | e | / | [place] | | and | | | CALLOSI | (SNOMED | | | | DPM | | callus | | | TIES | CT) | | | | | | | | +---------+---------+---------+---------+---------+---------+---------+---------+---------+ | HAMMER | [id number] | | Active | | Kali | | Hammer | | | TOE, | | | | | [place] | | toe | | | OTHER, | (SNOMED | | | | DPM | | | | | ACQUIRE | CT) | | | | | | | | | D | | | | | | | | | +---------+---------+---------+---------+---------+---------+---------+---------+---------+ | HALLUX | [id number] | | Active | | Kali | [...] +---------+---------+---------+---------+---------+---------+---------+---------+---------+ | POLYNEU | E11.42 | | Active | | Kali | | 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 | | | | Hakeem | | diabete | | | - [...] ropathy | | +---------+---------+---------+---------+---------+---------+---------+---------+---------+ | DIABETE | [id number] | | Active | | Kali | | Periphe | | | S | | | | | [place] | | ral | | | MELLITU | (SNOMED | | | | DPM | | circula | | | S, WITH | CT) | | | | | | tory | | | | | | | | | | disorde | | | VASCULA | | | | | | | r | | | R | | | | | | | associa | | | COMPLIC | | | | | | | bryce | | | ATIONS | | | | | | | with | | | | | | | | | | diabete | | | | | | | | | | s | | | | | | | | | | mellitu | | | | | | | | | | s | | +---------+---------+---------+---------+---------+---------+---------+---------+---------+ | ONYCHOM | [id number] | | Active | | Kali | | Onychom | | | YCOSIS | 08 | /01 | | /01 | [place] | | ycosis | | | | (SNOMED | | | | DPM | | | | | | CT) | | | | | | | | +---------+---------+---------+---------+---------+---------+---------+---------+---------+ | HEARTBU | [id number] | | Active | | Tiesha | | Heartbu | | | RN | 0 | /19 | | /19 | | | rn | | | | (SNOMED | | | | [place] | | | | | | CT) | | | | MD | | | | +---------+---------+---------+---------+---------+---------+---------+---------+---------+ | TYPE 2 | [id number] | | Active | | Tiesha | [...] | E11.21 | | Active | | Tiesha | | Type 2 | | | DIABETE | (ICD-10 | / | | /19 | | | diabete | | | S | -CM) | | | | [place] | | s | | | MELLITU [...] athy | | +---------+---------+---------+---------+---------+---------+---------+---------+---------+ | UTI | [id number] | | Active | | Pako | | Urinary | | | | 5 | /13 | | /13 | Middlek | | tract | | | | (SNOMED | | | | auff | | infecti | | | | CT) | | | | INDEPENDENT AGENT MUSIC EDUCATION | | ous | | | | | | | | | | disease | | +---------+---------+---------+---------+---------+---------+---------+---------+---------+ | LOCALIZ | [id number] | | Active | | [place] | | Disorde | | | ED | 09 | /30 | | /30 | [place] | | r of | [...] | | | +---------+---------+---------+---------+---------+---------+---------+---------+---------+ | LIPOMA | [id number] | | Active | | Lauranc | | Lipoma | | | | 2 | /14 | | /14 | e W | | (clinic | | | | (SNOMED | | | | Lila | | al) | | | | CT) | | | | MD | | | | +---------+---------+---------+---------+---------+---------+---------+---------+---------+ | VITAMIN | [id number] | | Active | | David W | | Vitamin | | | D | 6 | /14 | | /15 | Theen | | D | | | DEFICIE | (SNOMED | | | | MD FACE | | deficie | | | NCY | CT) | | | | FACP | | ncy | | +---------+---------+---------+---------+---------+---------+---------+---------+---------+ | OBESITY | [id number] | | Active | | David Paez | | Obesity | | | , BMI | 01 | /14 | | /15 | Theen | | | | | 35-39.9 | (SNOMED | | | | MD FACE | | | | | , ADULT | CT) | | | | FACP | | | | +---------+---------+---------+---------+---------+---------+---------+---------+---------+ | DIABETE | [id number] | | Removed | | David W | | Diabeti | | | S | [id number] | / | | / | Theen | | c | | | MELLITU | (SNOMED | | | | MD FACE | | periphe | | | S, TYPE | CT) | | | | FACP | | ral | | | II | | | | | | | neuropa | | | WITH | | | | | | | thy | | | PERIPHE | | | | | | | associa | | | RAL | | | | | | | bryce | | | NEUROPA | | | | | | | with | | | THY, | | | | | | | type 2 | | | UNCONTR | | | | | | | diabete | | | OLLED | | | | | | | s | | | | | | | | | | mellitu | | | | | | | | | | s | | +---------+---------+---------+---------+---------+---------+---------+---------+---------+ | HALLUX | [id number] | | Inactiv | | Kali | | Temitope | | | HENRI, | 1 | / | e | | Pal[place] | | d | | | | (SNOMED | | | | DPM | | hallux | | | ACQUIRE | CT) | | | | | | valgus | | | D | | | | | | | | | +---------+---------+---------+---------+---------+---------+---------+---------+---------+ | HAMMER | [id number] | | Inactiv | | Kali | | Abdieler | | | TOE, | | | e | | [place] | | toe | | | OTHER, | (SNOMED | | | | DPM | | | | | ACQUIRE | CT) | | | | | | | | | D | | | | | | | | | +---------+---------+---------+---------+---------+---------+---------+---------+---------+ | ONYCHOM | [id number] | | Inactiv | | Kali | | Onychom | | | YCOSIS | | | e | | [place] | | ycosis | | | | (SNOMED | | | | DPM | | | | | | CT) | | | | | | | | +---------+---------+---------+---------+---------+---------+---------+---------+---------+ | POLYNEU | E11.42 | 2016/04 | Inactiv | | Kali | | 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 | / | e | [...] ropathy | | +---------+---------+---------+---------+---------+---------+---------+---------+---------+ | DIABETE | [id number] | | Inactiv | | Kali | | Periphe | | | S | 02 | | e | /01 | Pal[place] | | ral | | | MELLITU | (SNOMED | | | | DPM | | circula | | | S, WITH | CT) | | | | | | tory | | | | | | | | | | disorde | | | VASCULA | | | | | | | r | | | R | | | | | | | associa | | | COMPLIC | | | | | | | bryce | | | ATIONS | | | | | | | with | | | | | | | | | | diabete | | | | | | | | | | s | | | | | | | | | | mellitu | | | | | | | | | | s | | +---------+---------+---------+---------+---------+---------+---------+---------+---------+ | SCREENI | [id number] | | Resolve | | Lauranc | | Depress | | | NG FOR | 06 | /10 | d | /10 | e W | | ion | | | DEPRESS | (SNOMED | | | | Lila | | screeni | | | ION | CT) | | | | MD | | ng | | +---------+---------+---------+---------+---------+---------+---------+---------+---------+ | SCREENI | [id number] | | Resolve | | Lauranc | [...] | | | +---------+---------+---------+---------+---------+---------+---------+---------+---------+ | SCREENI | [id number] | | Resolve | | Lauranc | [...] ng | | +---------+---------+---------+---------+---------+---------+---------+---------+---------+ | SCREENI | [id number] | | Removed | | Geetha | | Alcohol | | | NG FOR | 01 | / | | /10 | [place] | | | | | ALCOHOL | (SNOMED | | | | [facility] | | consump | | | ISM | CT) | | | | | | tion | | | | | | | | | | screeni | | | | | | | | | | ng | | +---------+---------+---------+---------+---------+---------+---------+---------+---------+ | SCREENI | [id number] | | Removed | | Geetha | | Screeni | | | NG FOR | 05 | / | | / | Patrick | | ng for | | | UNSPECI | (SNOMED | | | | [facility] | | disorde | | | FIED | CT) | | | | | | r | | | CONDITI | | | | | | | | | | ON | | | | | | | | | +---------+---------+---------+---------+---------+---------+---------+---------+---------+ | SCREENI | [id number] | | Removed | | Geetha | | Depress | | | NG FOR | 06 | / | | /10 | [place] | | ion | | | DEPRESS | (SNOMED | | | | [facility] | | screeni | | | ION | CT) | | | | | | ng | | +---------+---------+---------+---------+---------+---------+---------+---------+---------+ | RENAL | [id number] | | Active | | Lauranc | | Acute | | | FAILURE | 1 | /02 | | /02 | e W | | renal | | | , ACUTE | (SNOMED | | | | Lila | | failure | | | | CT) | | | | MD | | | | | | | | | | | | syndrom | | | | | | | | | | e | | +---------+---------+---------+---------+---------+---------+---------+---------+---------+ | EDEMA | [id number] | | Active | | Lauranc | | Edema | | | | 08 | /15 | | /11 | e W | | | | | | (SNOMED | | | | Lila | | | | | | CT) | | | | MD | | | | +---------+---------+---------+---------+---------+---------+---------+---------+---------+ | RENAL | [id number] | | Active | | Luz | [...] e | | +---------+---------+---------+---------+---------+---------+---------+---------+---------+ | PERIPHE | [id number] | | Active | | Lauranc | | Periphe | | | RAL | | / | | / | e W | | ral | | | VASCULA | (SNOMED | | | | Lila | | vascula | | | R | CT) | | | | MD | | r | | | DISEASE | | | | | | | disease | | +---------+---------+---------+---------+---------+---------+---------+---------+---------+ | CANDIDI | [id number] | | Active | | Susanna | | Candidi | | | ASIS, | | | | | Medel | | asis of | | | SKIN | (SNOMED | | | | MD | | skin | | | | CT) | | | | | | | | +---------+---------+---------+---------+---------+---------+---------+---------+---------+ | DYSURIA | [id number] | | Active | | Erica | | Dysuria | | | | 1 | /31 | | /31 | Paul | | | | | | (SNOMED | | | | MA | | | | | | CT) | | | | | | | | +---------+---------+---------+---------+---------+---------+---------+---------+---------+ | VAGINIT | [id number] | | Active | | Erica | | Vaginit | | | IS | 1 | /31 | | /31 | Paul | | is | | | | (SNOMED | | | | MA | | | | | | CT) | | | | | | | | +---------+---------+---------+---------+---------+---------+---------+---------+---------+ | RLQ | [id number] | | Resolve | | Lauranc | | Right | | | PAIN | 02 | | d | /11 | e W | | lower | | | | (SNOMED | | | | Lila | | quadran | | | | CT) | | | | MD | | t pain | | +---------+---------+---------+---------+---------+---------+---------+---------+---------+ | ABDOMIN | [id number] | | Resolve | | Lauranc | [...] | | | +---------+---------+---------+---------+---------+---------+---------+---------+---------+ | KNEE | [id number] | | Active | | Lauranc | | Knee | | | PAIN | 3 | /14 | | /14 | e W | | pain | | | | (SNOMED | | | | Lila | | | | | | CT) | | | | MD | | | | +---------+---------+---------+---------+---------+---------+---------+---------+---------+ | Questio | [id number] | | Correct | | Lauranc | | Vertebr | | | n of | 08 | / | ion | /25 | e W [...] | | | +---------+---------+---------+---------+---------+---------+---------+---------+---------+ | VERTEBR | [id number] | | Active | | Lauranc | [...] e | | +---------+---------+---------+---------+---------+---------+---------+---------+---------+ | VERTIGO | 5442846 | | Active | | Luz | | Vertigo | | | | 01 | / | | /03 | Asad | | | | | | (SNOMED | | | | RN | | | | | | CT) | | | | | | | | +---------+---------+---------+---------+---------+---------+---------+---------+---------+ | CHEST | [id number] | | Inactiv | | Genny | | Chest | | | PAIN | 9 | | e | /02 | [place] | | pain | | | | (SNOMED | | | | | | | | | | CT) | | | | | | | | +---------+---------+---------+---------+---------+---------+---------+---------+---------+ | CHEST | [id number] | | Inactiv | | Lauranc | | Acute | | | PAIN, | 01 | /14 | e | /14 | e W | | chest | | | ACUTE | (SNOMED | | | | Lila | | pain | | | | CT) | | | | MD | | | | +---------+---------+---------+---------+---------+---------+---------+---------+---------+ | DYSPHAG | R13.10 | | Active | | Patricia | | Dysphag | | | IA | (ICD-10 | | | /14 | | | ia, | | | UNSPECI | -CM) | | | | Stewart | | unspeci | | | FIED | | | | | CCMA | | fied | | +---------+---------+---------+---------+---------+---------+---------+---------+---------+ | CEREBRO | [id number] | | Active | | Rogers | | 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 | (SNOMED | | | | MD | | r | | | DISEASE | CT) | | | | | | disease | | +---------+---------+---------+---------+---------+---------+---------+---------+---------+ | History | [id number] | | Active | | Rogers | | Cerebra | | | of | | | | | Laith | | l | | [...] | PROPHYL | (ICD-10 | | | | e W | | er [...] | | | +---------+---------+---------+---------+---------+---------+---------+---------+---------+ | DIABETI | [id number] | | Active | | Rogers | | Diabeti | | | C | 06 | | | | Laith | | [...] thy | | +---------+---------+---------+---------+---------+---------+---------+---------+---------+ | HYPERLI | [id number] | | Active | | Rogers | | Hyperli | | | PIDEMIA | 4 | | | | Laith | | pidemia | | | | (SNOMED | | | | MD | | | | | | CT) | | | | | | | | +---------+---------+---------+---------+---------+---------+---------+---------+---------+ | History | [id number] | | Active | | Rogers | [...] e | | +---------+---------+---------+---------+---------+---------+---------+---------+---------+ | CEREBRA | [id number] | | Correct | | Rogers | | Cerebra | | | L | | | ion | / | Laith | | l | | [...] s | | +---------+---------+---------+---------+---------+---------+---------+---------+---------+ | ABDOMIN | [id number] | | Removed | | Patricai | | Abdomin | | | AL [...] | | | +---------+---------+---------+---------+---------+---------+---------+---------+---------+ | RLQ | [id number] | | Removed | | Patricia | | Right | | | PAIN | 02 | | | /11 | | | lower | | | | (SNOMED | | | | Stewart | | quadran | | | | CT) | | | | [facility] | | t pain | | +---------+---------+---------+---------+---------+---------+---------+---------+---------+ | DYSPHAG | R13.10 | | Active | | Lauranc | | Dysphag | | | IA | (ICD-10 | / | | / | e W | | ia, | | | UNSPECI | -CM) | | | | Lila | | unspeci | | | FIED | | | | | MD | | fied | | +---------+---------+---------+---------+---------+---------+---------+---------+---------+ | CARPAL | [id number] | | Active | | Rogers | | Carpal | | | TUNNEL | 9 | /25 | | /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 | | | | MD | | 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, LEFT | CT) | | | | | | e | | +---------+---------+---------+---------+---------+---------+---------+---------+---------+ | Questio | [id number] | | Removed | | Rogers | [...] | | | +---------+---------+---------+---------+---------+---------+---------+---------+---------+ | GAIT | [id number] | | Active | | Rogers | | Abnorma | | | IMBALAN | 2 | /25 | | /25 | Laith | | l gait | | | CE | (SNOMED | | | | MD | | | | | | CT) | | | | | | | | +---------+---------+---------+---------+---------+---------+---------+---------+---------+ | BRAIN | [id number] | | Correct | | Rogers | | Brainst | | | STEM | 05 | / | ion | /25 | Laith | | em | | | STROKE | (SNOMED | | | | MD | | stroke | | | | CT) | | | | | | syndrom | | | | | | | | | | e | | +---------+---------+---------+---------+---------+---------+---------+---------+---------+ | PARESTH | [id number] | | Active | | Rogers | | Paresth | | | ESIA, | 04 | | | / | Laith | | esia of | | | HANDS | (SNOMED | | | | MD | | hand | | | | CT) | | | | | | | | +---------+---------+---------+---------+---------+---------+---------+---------+---------+ | PERIPHE | [id number] | | Correct | | Rogers | | Periphe | | | RAL | | / | ion | /25 | Laith | | ral | | | NEUROPA | (SNOMED | | | | MD | | nerve | | | THY | CT) | | | | | | disease | | +---------+---------+---------+---------+---------+---------+---------+---------+---------+ | THYROID | [id number] | | Active | | Luz | | Thyroid | | | NODULE | 05 | /20 | | /20 | [place] | | nodule | | | | (SNOMED | | | | [facility] | | | | | | CT) | | | | | | | | +---------+---------+---------+---------+---------+---------+---------+---------+---------+ | TIA | [id number] | | Active | | Lauranc | | Transie | | | | 00 | / | | / | e W | | nt | | | | (SNOMED | | | | Lila | | cerebra | | | | CT) | | | | MD | | l | | | | | | | | | | ischemi | | | | | | | | | | a | | +---------+---------+---------+---------+---------+---------+---------+---------+---------+ | SYNCOPE | [id number] | | Active | | Lauranc | | Syncope | | | | 07 | / | | /10 | e W | | | | | | (SNOMED | | | | Lila | | | | | | CT) | | | | MD | | | | +---------+---------+---------+---------+---------+---------+---------+---------+---------+ | GASTROP | [id number] | | Active | | Lauranc | | 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 | | | | (SNOMED | | | | Lila | | syndrom | | | | CT) | | | | MD | | e | | +---------+---------+---------+---------+---------+---------+---------+---------+---------+ | CONSTIP | [id number] | | Active | | Lauranc | | Chronic | | | ATION, | 09 | /08 | | /08 | e W | | | | | CHRONIC | (SNOMED | | | | Lila | | constip | | | | CT) | | | | MD | | ation | | +---------+---------+---------+---------+---------+---------+---------+---------+---------+ | POSTHER | [id number] | | Active | | Lauranc | | Posther | | | 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 | (SNOMED | | | | Lila | | neuralg | | | IA | CT) | | | | MD | | ia | | +---------+---------+---------+---------+---------+---------+---------+---------+---------+ | DIZZINE | [id number] | | Active | | Lauranc | | Dizzine | | | SS | 03 | /08 | | /08 | e W | | ss | | | | (SNOMED | | | | Lila | | | | | | CT) | | | | MD | | | | +---------+---------+---------+---------+---------+---------+---------+---------+---------+ | DEHYDRA | [id number] | | Active | | Lauranc | | Dehydra | | | TION | 6 | /08 | | /08 | e W | | tion | | | | (SNOMED | | | | Lila | | | | | | CT) | | | | MD | | | | +---------+---------+---------+---------+---------+---------+---------+---------+---------+ | DIABETE | [id number] | | Active | | Lauranc | | Type 2 [...] | | | +---------+---------+---------+---------+---------+---------+---------+---------+---------+ | HYPERTE | [id number] | | Active | | Lauranc | | Hyperte | | | NSION | | | | | e W | | nsive | [...] take 1-2 | | | DIMENHYDRI | [id number] | Christen Ramirez | | 50 MG TABS | tabs 4 | | | MARCELA | 1 | [place] | | | times per | | | | | INDEPENDENT [employer]UCATION | | | day as | | | | | | | | needed | | | | | | + + + + + + + + | VICTOZA 18 | | | | LIRAGLUTID | [id number] | Jesus | | MG/3ML | | | | E | 2 | Ethan MD | | SOPN | | | | | | | + + + + + + + + | BASAGLAR | 1 pen | | | INSULIN | [id number] | Christen Ramirez | | KWIKPEN | every 3 | | | GLARGINE | 9 | [place] | | 100 | days 56 | | | | | INDEPENDENT [employer]UCATION | | UNIT/ML | units q | | | | | | | SOPN | Day | | | | | | + + + + + + + + | NERVE | | | | NERVE | | Bailey W | | PAIN | | | | PAIN | | Lila MD | + + + + + + + + | MECLIZINE | 1 by mouth | | | MECLIZINE | [id number] | Bailey W | | HCL 25 [...] mix and | | | NA | [id number] | Maulik | | BOWEL PREP | drink one | | | SULFATE-K | 1 | Lilia | | SOLN | bottle at | | | SULFATE-MG | | MD | | | 5pm day | | | SULF | | | | | before | | | | | | | | procedure. | | | | | | | | mix and | | | | [...] take 2 | | | GABAPENTIN | [id number] | Bailey W | | 300 MG | caps in | | | | 0 | Lila MD | | CAPS | [...] Inject 0.6 | | | LIRAGLUTID | [id number] | Christen Ramirez | | MG/3ML | mg daily | | | E | 2 | [place] | | SOPN | | | | | | [employer] | + + + + + + + + | ONDANSETRO | 1 tab | | | ONDANSETRO | [id number] | Kali | | N HCL 4 MG | every 4 | | | N HCL | 3 | Palacio DPM | | TABS | hours | | | | | | + + + + + + + + | VICTOZA 18 | | | | LIRAGLUTID | 1035906119 | Bailey W | | MG/3ML | [...] 1 tab | | | GABAPENTIN | 2384535208 | Jesus | | 300 MG | po tid . | | | | 0 | Ethan MD | | CAPS | Pt states | | | | | | | | as needed | | | | | | + + + + + + + + | COLACE 100 | 1 tab by | | | DOCUSATE | [id number] | Kali | | MG CAPS | mouth | | | SODIUM | 0 | Hakeem DPM | | | daily at | | | | | | | | bedtime | | | | | | + + + + + + + + | CLONAZEPAM | Take one | | | CLONAZEPAM | [id number] | Edna | | 0.5 MG | tablet | | | | 8 | Hope CCMA | | TABS | every 24 | | | | | | | | hours as | | | | | | | | needed for | | | | | | | | anxiety | | | | | | + + + + + + + + | ASPIRIN | take 1 | | | ASPIRIN | [id number] | Rogers | | 325 MG | [...] 1 tab | | | PREGABALIN | 0416640327 | Bailey W | | MG CAPS | three | | | | 3 | Lila MD | | | times per | | | | | | | | day | | | | | | + + + + + + + + | GLUCOPHAGE | 1 tab one | | | METFORMIN | 8258168137 | Bailey W | | XR 500 MG | time per | | | HCL | 0 | Lila MD | | [id number] | day | | | | | | + + + + + + + + | HUMALOG | BS <150 - | | | INSULIN | 8398662139 | Christen Ramirez | | 100 | No insulin | | | LISPRO | 1 | [place] | | UNIT/ML | BS | | | (HUMAN) | | [employer] | | SOLN | 150-200 | | [...] bid | | | CIPRO | | Bailey W | | | unknown | | | | | Lila MD | | | strength | | | | | | + + + + + + + + | LANTUS 100 | 50 units | | | INSULIN | 0615874395 | Pako | | UNIT/ML | once per | | | GLARGINE | 3 | Shirauf | | ANGYN | mikaela. Pt | | | | | f [employer]END[employer] | | | states she | | | | | | | | is taking | | | | | | | | 56 units | | | | | | | | every AM | | | | | | + + + + + + + + | NITROFURAN | Take one | | | NITROFURAN | 9673096126 | Edna | | TOIN | capsule [...] | One | | | ERGOCALCIF | 5920334218 | Mariano | | QUANG 01757 | capsule by | | | QUANG | 2 | Ariella | | UNIT CAPS | mouth | | | | | CCMA | | | once a | | | | | | | | week for 8 | | | | | | | | weeks | | | | | | + + + + + + + + | GABAPENTIN | take 2 | | | GABAPENTIN | 4275029058 | Mariano | | 300 MG | caps in | | | | 0 | Ariella | | CAPS | am, [...] 10ml QAM | | | METFORMIN | 5221219081 | Mariano | | MG/5ML | Liquid due | | | HCL | 2 | Ariella | | SOLN | to | | | | | CCMA | | | Dysphagia | | | | | | + + + + + + + + | ASPIRIN EC | take 1 | | | ASPIRIN | 0477746384 | Rogers | | 325 MG | tablet | | | | 0 | Laith LUIS | | TBEC | daily | | | | | | + + + + + + + + | RELION | Use to | | | GLUCOSE | 7643360435 | Kali | | BLOOD | test BG | | | BLOOD | 4 | Palacio DPM | | GLUCOSE | one time | | | | | | | TEST STRP | per day | | | | | | + + + + + + + + | NITROFURAN | | | | NITROFURAN | 7812979654 | Edna | | TOIN | | [...] one tablet | | | DOCUSATE | [id number] | Laurance W | | MG CAPS | by mouth | | | SODIUM | 0 | Lila MD | | | at bedtime | | | | | | + + + + + + + + | BIOTIN 1 | Take one | | | BIOTIN | 4085832946 | Jesus | | MG CAPS | daily in | | | | 2 | Ethan MD | | | the AM | | | | | | + + + + + + + + | BACTRIM DS | 1 by mouth | | | TRIMETHOPR | 4161548955 | Bailey W | | 800-160 | twice a | | | IM-SULFAME | 1 | Lila MD | | MG TABS | day for 3 | | | THOXAZOLE | | | | | days | | | | | | + + + + + + + + | ASPIRIN 81 | one time | | | ASPIRIN | 0410926055 | Mariano | | MG TABS | per day | | | | 5 | Ariella | | | | | | | | CCMA | + + + + + + + + | GABAPENTIN | two times | | | GABAPENTIN | 2642162017 | Mariano | | 100 MG | per day | | | | 1 | Ariella | | CAPS | | | | | | CCMA | + + + + + + + + | BIOTIN 1 | | | | BIOTIN | 2828820829 | Kali | | MG CAPS | | | | | 2 | Palacio DPM | + + + + + + + + | PIOGLITAZO | Take 1 tab | | | PIOGLITAZO | 9342325475 | Jesus | | NE HCL 15 | by mouth | | | NE HCL | 0 | Ethan MD | | MG TABS | one time | | | | | | | | per day in | | | | | | | | the AM | | | | | | + + + + + + + + | MECLIZINE | two times | | | MECLIZINE | 4603783352 | Mariano | | HCL 25 MG | per day | | | HCL | 2 | Ariella | | TABS | | | | | | CCMA | + + + + + + + + | CLINDAMYCI | take 1 cap | | | CLINDAMYCI | | Franciscoance W | | N 300 MG | po q 6 | | | N 300 MG | | Lila MD | | CAP | hrs for 7 | | | CAP | | | | | days | | | | | | + + + + + + + + | ASPIRIN EC | take 1 | | | ASPIRIN | 1857941607 | Mariano | | 325 MG | tablet | | | | 0 | Ariella | | TBEC | daily | | | | | CCMA | + + + + + + + + | PIOGLITAZO | Take 1 tab | | | PIOGLITAZO | 6428965281 | Christen Ramirez | | NE HCL 15 | by mouth | | | NE HCL | 0 | [place] | | MG TABS | one time | | | | | [employer] | | | per day in | | | | | | | | the AM | | | | | | + + + + + + + + | NEURONTIN | take 1 tab | | | GABAPENTIN | 2636642903 | Bailey W | | 300 MG | po tid | | | | 0 | Lila MD | | CAPS | | | | | | | + + + + + + + + | DIOVAN 160 | one time | | | VALSARTAN | 5191132187 | Mariano | | MG TABS | per day | | | | 0 | Ariella | | | | | | | | CCMA | + + + + + + + + | ASPIRIN | take 1 | | | ASPIRIN | 6466360648 | Bailey W | | 325 MG | tablet by | | | | 1 | Lila MD | | TABS | mouth | | [...] Take one | | | POTASSIUM | 6907689705 | Jeuss | | CHLORIDE | cap daily | | | CHLORIDE | 5 | Ethan MD | | ER 10 MEQ | in the AM | | | | | | | CR-CAPS | | | | | | | + + + + + + + + | KEFLEX 500 | 1 pill | | | CEPHALEXIN | 0810525703 | Tiesha | | MG CAPS | twice a | | | | 0 | Maria Isabel MD | | | day for 7 | | | | | | | | days | | | | | | + + + + + + + + | GABAPENTIN | one tablet | | | GABAPENTIN | 1453618197 | Bailey W | | 100 MG | by mouth | | | | 6 | Lila MD | | CAPS | [...] 1 tab | | | MECLIZINE | 8988793148 | Laurance W | | HCL 25 MG | three | | | HCL | 1 | Lila MD | | TABS | times per | | | | | | | | day | | | | | | + + + + + + + + | NITROFURAN | Take one | | | NITROFURAN | 2245059828 | Edna | | TOIN | capsule [...] 0.02 ml | | | EXENATIDE | 0480053902 | Laurance W | | MCG PEN 5 | injection | | | | 1 | Lila MD | | MCG/0.02ML | two times | | | | | | | SOPN | per day | | | | | | + + + + + + + + | FLUCONAZOL | take one | | | FLUCONAZOL | 2076843853 | Laurance W | | E 150 MG | tablet PO | | | E | 0 | Lila MD | | [...] tab two | | | CILOSTAZOL | 8489263573 | Kali | | 100 MG | times per | | | | 1 | Hakeem DPM | | TABS | day | | | | | | + + + + + + + + | RIOMET 500 | 10ml's two | | | METFORMIN | 1903135825 | Bailey W | | MG/5ML | times per | | | HCL | 2 | Lila MD | | SOLN | [...] D | | | | CHOLECALCI | 7912631367 | Kali | | 1000 UNIT | | | | FEROL | 0 | Hakeem DPM | | TABS | | | | | | | + + + + + + + + | NEURONTIN | take 1 tab | | | GABAPENTIN | 8800816654 | Christen Ramirez | | 300 MG | po tid . | | | | 0 | [place] | | CAPS | Pt states | | | | | [employer] | | | as needed | | | | | | + + + + + + + + | PANTOPRAZO | Take one | | | PANTOPRAZO | 5923780839 | Edna | | LE SODIUM | tablet by | | | LE SODIUM | 0 | Hope CCMA | | 40 MG TBEC | mouth once | | | | | | | | daily | | | | | | + + + + + + + + | BYETTA 5 | Take as | | | EXENATIDE | 2313961937 | Christen Ramirez | | MCG PEN 5 | directed | | | | 1 | [place] | | MCG/0.02ML | once daily | | | | | [employer] | | SOPN | in the AM | | | | | | + + + + + + + + | STROKE | | | | STROKE | | Bailey Paez | | PREVENTION | | | | PREVENTION | | Lila LUIS | | | | | | | | | + + + + + + + + | METFORMIN | two times | | | METFORMIN | 4711081903 | Mariano | | HCL 1000 | per day | | | HCL | 1 | Ariella | | MG TABS | | | | | | CCMA | + + + + + + + + | GABAPENTIN | Take 2 | | | GABAPENTIN | 9556104421 | Bailey W | | 300 MG | capsules | | | | 1 | Lila [...] TAKE ONE | | | PREGABALIN | 2468720126 | Eksha | | MG CAPS | CAPSULE BY | | | | 3 | Eric | | | MOUTH | | | | | CCMA | | | THREE | | | | | | | | TIMES | | | | | | | | DAILY | | | | | | + + + + + + + + | BUSPIRONE | 1 TAB | | | BUSPIRONE | 7652720276 | Kali | | HCL 7.5 MG | three | | | HCL | 5 | Palacio DPM | | TABS | times per | | | | | | | | day | | | | | | + + + + + + + + | LANTUS 100 | 25 units | | | INSULIN | 0511623185 | Jesus | | UNIT/ML | two [...] two times | | | MECLIZINE | 5970194842 | Laurance W | | HCL 25 MG | per day | | | HCL | 2 | Lila MD | | TABS | | | | | | | + + + + + + + + | MECLIZINE | One tab by | | | MECLIZINE | 6242906231 | Laurance W | | HCL 25 [...] Take one | | | PROMETHAZI | 3403766314 | Edna | | NE HCL 25 | tablet by | | | NE HCL | 0 | Hope CCMA | | MG TABS [...] Take one | | | CHOLECALCI | 7787649752 | Jesus | | 1000 UNIT | tablet | | | FEROL | 0 | Ethan MD | | TABS | daily in | | | | | | | | the AM | | | | | | + + + + + + + + | POTASSIUM | | | | POTASSIUM | 4125703583 | Kali | | CHLORIDE | | | | CHLORIDE | 5 | Palacio DPM | | ER 10 MEQ | | | | | | | | CR-CAPS | | | | | | | + + + + + + + + | DULOXETINE | 1 tab one | | | DULOXETINE | 4548412486 | Bailey W | | HCL 30 MG | time per | | | HCL | 6 | Lila MD | | CPEP | day | | | | | | + + + + + + + + | PROCHLORPE | Insert one | | | PROCHLORPE | 1177453042 | Edna | | RAZINE 25 | | | | RAZINE | 2 | Hope CCMA | | MG SUPP | suppositor [...] 56 Units | | | INSULIN | 7955245009 | Christen Escudero. | | KWIKPEN | every | | | GLARGINE | 9 | [place] | | 100 | morning | | | | | [employer] | | UNIT/ML | | | | | | | | SOPN | | | | | | | + + + + + + + + | PLAVIX 75 | 1 tab by | | | CLOPIDOGRE | 4930367946 | Christen Ramirez | | MG TABS | mouth one | | | L | 0 | [place] | | | time per | | | BISULFATE | | [employer] | | | day in the | | | | | | | | evening | | | | | | + + + + + + + + | VICTOZA 18 | .6 mg x 1 | | | LIRAGLUTID | 2642153491 | Christen Ramirez | | MG/3ML | week then | | | E | 2 | Raum[place]ita | | SOPN | 1.2 mg | | | | | [employer] | | | daily per | | | | | | | | week | | | | | | + + + + + + + + | LYRICA 100 | 1 tab | | | PREGABALIN | 7350827850 | Christen Escudero. | | MG CAPS | three | | | | 1 | Raum[place]ita | | | times per | | | | | IN[employer] | | | day. Pt | | | | | | | | states as | | | | | | | | needed | | | | | | + + + + + + + + | OMEPRAZOLE | Take one | | | OMEPRAZOLE | 4744729651 | Christen Ramirez | | 40 MG | by mouth | | | | 5 | [place] | | CPDR | one time | | | | | [employer] | | | per day | | [...] Take 1 | | | GLIPIZIDE | 7643027785 | Christen Ramirez | | XL 2.5 MG | tablet | | | | 1 | [place] | | [id number] | p.o. | | | | | [employer] | | | q.a.m. | | | | | | + + + + + + + + | BD INSULIN | Use 5 | | | INSULIN | 3234527091 | Christen Ramirez | | SYRINGE | times | | | SYRINGE-NE | 1 | [place] | | ULTRAFINE | daily to | | | EDLE U-100 | | [employer] | | 29G X 1/2" | inject | | | | | | | 1 ML MISC | insulin | | | | | | | | Dx: e11.21 | | | | | | | | SMITH: 99 | | | | | | | | months | | | | | | + + + + + + + + | NOVOLOG | 3U before | | | INSULIN | 3107541755 | Christen Ramirez | | 100 | lunch and | | | ASPART | 1 | Ra[place] | | UNIT/ML | 5U before | | | | | [employer] | | SOLN | Dinner | | [...] 3U before | | | INSULIN | 7162450417 | Christen Ramirez | | 100 | lunch and | | | LISPRO | 0 | Raum[place]ita | | UNIT/ML | 5U before | | | | | [employer] | | SOLN | Dinner | | [...] Inject 0.6 | | | LIRAGLUTID | 5763807573 | Christen Ramirez | | MG/3ML | mg daily | | | E | 2 | [place] | | SOPN | | | | | | [employer]UC[employer] | + + + + + + + + | LIPITOR 20 | take 1 | | | ATORVASTAT | 9512444342 | Christen J. | | MG TABS | tablet by | | | IN CALCIUM | 0 | [place] | | | mouth | | | | | [employer] | | | daily in | | | | | | | | the | | | | | | | | evening | | | | | | + + + + + + + + | BASAGLAR | 56 Units | | | INSULIN | 4259762874 | Christen J. | | KWIKPEN | by mouth | | | GLARGINE | 9 | Raum[place]ita | | 100 | every | | | | | [employer] | | UNIT/ML | morning | | | | | | | SOPN | | | | | | | + + + + + + + + | VICTOZA 18 | 5 unit AM | | | LIRAGLUTID | 2913740641 | Christen J. | | MG/3ML | and 5 | | | E | 2 | [place]ita | | SOPN | units PM | | | | | [employer]UC[employer] | + + + + + + + + | BASAGLAR | 1 pen | | | INSULIN | 3533795965 | Christen Ramirez | | KWIKPEN | every 3 | | | GLARGINE | 9 | Raum[place]ita | | 100 | days 56 | | | | | IN[employer]UCATION | | UNIT/ML | units q | | | | | | | SOPN | Day | | | | | | + + + + + + + + | MECLIZINE | One tab by | | | MECLIZINE | 7791208397 | Christen Ramirez | | HCL 25 MG | mouth | | | HCL | 0 | Raum[place]ita | | TABS | three | | | | | [employer]END[employer]UC[employer] | | | times per | | | | | | | | day | | | | | | + + + + + + + + | PEN | Use one | | | PEN | | Christen J. | | NEEDLES | pen needle | | | NEEDLES | | [place] | | FOR | every | | | FOR | | [employer] | | BASAGLAR | morning | | | BASAGLAR | | | | KWIKPEN | with | | | KWIKPEN | | | | | Basaglar | | | | | | | | Kwikpen | | | | | | + + + + + + + + | BYETTA 5 | Take as | | | EXENATIDE | 8304062332 | Christen Ramirez | | MCG PEN 5 | directed | | | | 1 | [place] | | MCG/0.02ML | once daily | | | | | IN[employer]UC[employer] | | SOPN | in the AM | | | | | | + + + + + + + + | LANTUS 100 | 56 units | | | INSULIN | 7982264614 | Kaykay | | UNIT/ML | qAM | | | GLARGINE | 3 | Mora DO | | SOLN | | | | | | | + + + + + + + + | VALSARTAN | Take one | | | VALSARTAN | 9570691374 | Christen Ramirez | | 160 MG | tablet | | | | 2 | [place] | | TABS | daily in | | | | | [employer]UC[employer] | | | the AM | | | | | | + + + + + + + + | SUPREP | mix and | | | NA | 5853917219 | Emeka | | BOWEL PREP | drink one | | | SULFATE-K | 1 | Petre MD | | SOLN | bottle at | | | SULFATE-MG | | | | | 5pm day | | | SULF | | | | | before | | | | | | | | procedure. | | | | | | | | mix and | | | | [...] pill BID | | | DOCUSATE | 9907654274 | Christen Ramirez | | MG CAPS | | | | SODIUM | 0 | [place] | | | | | | | | [employer]UC[employer] | + + + + + + + + | HUMALOG | BS <150 - | | | INSULIN | 6028305840 | Tiesha | | 100 | No insulin | | | LISPRO | 1 | Aurora MD | | UNIT/ML | BS | [...] Use daily | | | GLUCOSE | 2691033118 | Tiesha | | BLOOD | to check | | | BLOOD | 4 | Maria Isabel MD | | GLUCOSE | blood | | | | | | | TEST STRP | sugar | | | | | | + + + + + + + + | BD PEN | Use daily | | | INSULIN | 6443390974 | Tiesha | | NEEDLE | to inject | | | PEN NEEDLE | 3 | Maria Isabel MD | | ULTRAFINE | insulin | | | | | | | 29G X | | | | | | | | 12.7MM | | | | | | | | MISC | | | | | | | + + + + + + + + | LASIX 80 | 1 tab by | | | FUROSEMIDE | 8944436560 | Tiesha | | MG TABS | mouth one | | | | 5 | Aurora MD | | | time per | | | | | | | | day in the | | | | | | | | AM | | | | | | + + + + + + + + | DIABETIC | 1 pair per | | | DIABETIC | | Tiesha | | ORTHOTIC | custom | | | ORTHOTIC | | Maria Isabel MD | | SHOES | fit from | | | SHOES | | | | | podiatry | | | | | | | | E11.65, | | | | | | | | e11.21 | | | | | | + + + + + + + + | DIABETIC | 1 pair per | | | FOOT CARE | 2612624026 | Tiesha | | INSOLES | custom | | | PRODUCTS | 2 | Aurora MD | | MISC | fit from | | | | [...] 1 pill | | | CEPHALEXIN | 2677216523 | Pako | | MG CAPS | twice a | | | | 0 | Middlekauf | | | day for 7 | | | | | f [employer]UC[employer] | | | days | | | | | | + + + + + + + + | BYETTA 5 | 0.02 ml | | | EXENATIDE | 7994921213 | Bailey W | | MCG PEN 5 | injection | | | | 1 | Lila MD | | MCG/0.02ML | two times | | | | | | | SOPN | per day | | | | | | + + + + + + + + | LYRICA 100 | 1 tab | | | PREGABALIN | 3122933307 | Bailey W | | MG CAPS | three | | | | 8 | Lila MD | | | times per | | | | | | | | day | | | | | | + + + + + + + + | DRAMAMINE | take 1-2 | | | DIMENHYDRI | 6855730286 | Bailey W | | 50 MG TABS | tabs 4 | | | MARCELA | 1 | Lila MD | | | times per | | | | | | | | day as | | | | | | | | needed | | | | | | + + + + + + + + | BD INSULIN | Use 5 | | | INSULIN | 9401905821 | Bailey W | | SYRINGE | times | | | SYRINGE-NE | 1 | Lila MD | | ULTRAFINE | daily to | | | EDLE U-100 | | | | 29G X /2" | inject | | | | | | | 1 ML MISC | insulin | | | | | | | | Dx: 250.00 | | | | | | | | SMITH: 99 | | | | | | | | months | | | | | | + + + + + + + + | PLAVIX 75 | 1 tab by | | | CLOPIDOGRE | 5709585684 | Laurance W | | MG TABS | mouth one | | | L | 4 | Lila MD | | | time per | | | BISULFATE | | | | | day | | | | | | + + + + + + + + | LANTUS 100 | 25 units | | | INSULIN | 3749321308 | Laurance W | | UNIT/ML | two times | | | GLARGINE | 3 | Lila MD | | SOLN | per day | | | | | | + + + + + + + + | LASIX 80 | 1 tab by | | | FUROSEMIDE | 1883892919 | Laurance W | | MG TABS | mouth one | | | | 5 | Lila MD | | | time per | | | | | | | | day | | | | | | + + + + + + + + | FUROSEMIDE | 1 tab one | | | FUROSEMIDE | 3475351208 | Laurance W | | 40 MG | time per | | | | 0 | Lila MD | | TABS | day | | | | | | + + + + + + + + | BUSPIRONE | 1 TAB | | | BUSPIRONE | 1203232678 | Laurance W | | HCL 7.5 MG | three | | | HCL | 5 | Lila MD | | TABS | times per | | | | | | | | day | | | | | | + + + + + + + + | COLACE 100 | 1 tab by | | | DOCUSATE | 7747808946 | Laurance W | | MG CAPS | mouth | | | SODIUM | 0 | Lila MD | | | daily at | | | | | | | | bedtime | | | | | | + + + + + + + + | BACTRIM DS | 1 by mouth | | | TRIMETHOPR | 7718657582 | Laurance W | | 800-160 | twice a | | | IM-SULFAME | 1 | Lila MD | | MG TABS | day for 3 | | | THOXAZOLE | | | | | days | | | | | | + + + + + + + + | LYRICA 50 | Take 1 tab | | | PREGABALIN | 2761168839 | Bailey W | | MG CAPS | by mouth | | | | 2 | Lila MD | | | three | | | | | | | | times per | | | | | | | | day | | | | | | + + + + + + + + | GLUCOPHAGE | 1 tab one | | | METFORMIN | 1993738197 | Bailey W | | XR 500 MG | time per | | | HCL | 0 | Lila MD | | IH95G-TAC | day | | | | | | + + + + + + + + | PIOGLITAZO | Take 1 tab | | | PIOGLITAZO | 8737934460 | Laurance W | | NE HCL 15 | by mouth | | | NE HCL | 0 | Lila MD | | MG TABS | one time | | | | | | | | per day | | | | | | + + + + + + + + | NYSTATIN-T | Apply thin | | | NYSTATIN-T | [id number] | Laurance W | | RIAMCINOLO | layer to | | | RIAMCINOLO | 0 | Lila MD | | NE | affected | | | NE | | | | 537572-8.1 | area BID | | | | | | | UNIT/GM-% | prn for | | | | | | | CREA | itching | | | | | | + + + + + + + + | CILOSTAZOL | 1 tab two | | | CILOSTAZOL | 7482427157 | Laurance W | | 100 MG | times per | | | | 1 | Lila MD | | TABS | day | | | | | | + + + + + + + + | OMEPRAZOLE | Take one | | | OMEPRAZOLE | 0273387788 | Laurance W | | 40 MG | by mouth | | | | 5 | Lila MD | | CPDR | [...] take 1 | | | ATORVASTAT | 9405098134 | Laurance W | | MG TABS | tablet by | | | IN CALCIUM | 0 | Lila MD | | | mouth | | | | | | | | daily | | | | | | + + + + + + + + | MECLIZINE | 1 tab | | | MECLIZINE | 3769734930 | Laurance W | | HCL 25 MG | three | | | HCL | 1 | Lila MD | | TABS | times per | | | | | | | | day | | | | | | + + + + + + + + | LANTUS 100 | 56 units | | | INSULIN | 3561383773 | Laurance W | | UNIT/ML | in the | | | GLARGINE | 3 | Lila MD | | SOLN | morning | | | | | | + + + + + + + + | ONDANSETRO | 1 tab | | | ONDANSETRO | 8256141083 | Bailey W | | N HCL 4 MG | every 4 | | | N HCL | 3 | Lila MD | | TABS | hours | | | | | | + + + + + + + + | RELION | Use to | | | GLUCOSE | 4451856314 | Bailey W | | BLOOD | test BG | | | BLOOD | 4 | Lila MD | | GLUCOSE | one time | | | | | | | TEST STRP | per day | | | | | | + + + + + + + + | GABAPENTIN | Take 2 | | | GABAPENTIN | [id number] | Franciscoance W | | 300 MG | capsules | | | | 1 | Lila [...] TAB one | | | VALSARTAN | [id number] | Bailey W | | 160 MG | time per | | | | 2 | Lila MD | | TABS | day | | | | | | + + + + + + + + | LYRICA 50 | TAKE ONE | | | PREGABALIN | [id number] | Laurance W | | MG CAPS | CAPSULE BY | | | | 3 | Lila MD | | | MOUTH | | | | | | | | THREE | | | | | | | | TIMES | | | | | | | | DAILY | | | | | | + + + + + + + + | BYETTA 5 | 0.2 ml | | | EXENATIDE | [id number] | Baliey W | | MCG PEN 5 | injection | | | | 1 | Lila MD | | MCG/0.02ML | two times | | | | | | | SOPN | per day | | | | | | + + + + + + + + | VICTOZA 18 | 1.2 mg | | | LIRAGLUTID | [id number] | Bailey W | | MG/3ML | injected | | | E | 3 | Lila MD | | SOPN | martin | | | | | | + + + + + + + + | KEFLEX 500 | one po TID | | | CEPHALEXIN | [id number] | Susanna | | MG CAPS | | | | | 0 | Gianfranco LUIS | + + + + + + + + | FLUCONAZOL | take one | | | FLUCONAZOL | [id number] | Susanna | | E 150 MG | tablet PO | | | E | 0 | Gianfranco LUIS | | TABS | x 1 repeat | | | | | | | | in 3 days | | | | | | + + + + + + + + | LYRICA 50 | 1 tab | | | PREGABALIN | [id number] | Laurance W | | MG CAPS | three | | | | 3 | Lila MD | | | times per | | | | | | | | day | | | | | | + + + + + + + + | GABAPENTIN | Take 2 | | | GABAPENTIN | [id number] | Laurance W | | 300 MG | capsules | | | | 1 | Lila [...] tab one | | | DULOXETINE | [id number] | Laurance W | | HCL 30 MG | time per | | | HCL | 6 | Lila MD | | CPEP | day | | | | | | + + + + + + + + | RIOMET 500 | 10ml's two | | | METFORMIN | [id number] | Laurance W | | MG/5ML | times per | | | HCL | 2 | Lila MD | | SOLN | [...] TAB one | | | VALSARTAN | [id number] | Laurance W | | MG TABS | time per | | | | 0 | Lila MD | | | day | | | | | | + + + + + + + + | MECLIZINE | One tab by | | | MECLIZINE | [id number] | Laurance W | | HCL 25 [...] take 2 | | | GABAPENTIN | [id number] | Bailey W | | 300 MG | caps in | | | | 3 | Lila MD | | CAPS | [...] tab one | | | VALSARTAN | [id number] | Bailey W | | MG TABS | time per | | | | 4 | Lila MD | | | day | | | | | | + + + + + + + + | VICTOZA 18 | 0.6 mg | | | LIRAGLUTID | [id number] | Bailey W | | MG/3ML | injected | | | E | 3 | Lila MD | | SOPN | [...] tab one | | | SITAGLIPTI | [id number] | Laurance W | | 100 MG | time per | | | N | 8 | Lila MD | | TABS | day | | | PHOSPHATE | | | + + + + + + + + | DIOVAN 160 | 1 by mouth | | | VALSARTAN | [id number] | Laurance W | | MG TABS | every day | | | | 0 | Lila MD | + + + + + + + + | GABAPENTIN | 2 tabs two | | | GABAPENTIN | [id number] | Laurance W | | 300 MG | times per | | | | 0 | Lila MD | | CAPS | day | | | | | | + + + + + + + + | GABAPENTIN | 1 tab at | | | GABAPENTIN | 6368784939 | Laurance W | | 100 MG [...] 28 units | | | INSULIN | 2542130853 | Bailey W | | UNIT/ML | two times | | | GLARGINE | 0 | Lila MD | | SOLN | per day | | | | | | + + + + + + + + | LISINOPRIL | take 1 | | | LISINOPRIL | [id number] | Rogers | | 20 MG | tablet by | | | | 1 | Laith MD | | TABS | mouth | | | | | | | | daily | | | | | | + + + + + + + + | LANTUS 100 | 56 units | | | INSULIN | [id number] | Laurance W | | UNIT/ML | daily | | | GLARGINE | 0 | Lila MD | | SOLN | | | | | | | + + + + + + + + | GABAPENTIN | 1 by mouth | | | GABAPENTIN | 4601762547 | Franciscoance W | | 100 MG | one [...] | One | | | ERGOCALCIF | 9286343460 | Laurance W | | QUANG 46247 | capsule by | | | QUANG | 2 | Lila MD | | UNIT CAPS [...] by mouth | | | LISINOPRIL | [id number] | Laurance W | | 5 MG TABS | one time | | | | 0 | Lila MD | | | per day | | | | | | + + + + + + + + | RIOMET 500 | 10ml QAM | | | METFORMIN | [id number] | Laurance W | | MG/5ML | Liquid due | | | HCL | 2 | Lila MD | | SOLN | to | | | | | | | | Dysphagia | | | | | | + + + + + + + + | COLACE 100 | one tablet | | | DOCUSATE | [id number] | Laurance W | | MG CAPS | by mouth | | | SODIUM | 0 | Lila MD | | | at bedtime | | | | | | + + + + + + + + | MECLIZINE | 1 by mouth | | | MECLIZINE | [id number] | Laurance W | | HCL 25 [...] by mouth | | | ASPIRIN | 6870640248 | Laurance W | | MG TABS | every day | | | | 5 | Lila MD | + + + + + + + + | METFORMIN | one tablet | | | METFORMIN | 3176308783 | Laurance W | | HCL 1000 | by mouth | | | HCL | 0 | Lila MD | | MG TABS | twice a | | | | | | | | day | | | | | | + + + + + + + + | GABAPENTIN | one tablet | | | GABAPENTIN | [id number] | Bailey W | | 100 MG | by mouth | | | | 6 | Lila MD | | CAPS | [...] | CIPRO | | | Critical | | Christen Ramirez | | | | | | | Gautam | | | | | | | INDEPENDENT AGENT MUSIC EDUCATION | + + + + + + + | GABAPENTIN | UNKNOWN | | Mild | No Longer | Laurance W | | | | | | Active | Lila MD | + + + + + + + | GABAPENTIN | UNKNOWN | | Mild | No Longer | Moira | | | | | | Active | Morgan CCMA | + + + + + [...] +------+------+-------+------+-------+------+ + + + | Office Visit: Est Care/ Dizzy | + + + + +----+---+---+---+ + | | CULT MRSA | No | | | | Culture, | | | | | | | | Methicilli | | | | | | | | n | | | | | | | | Resistant | | | | | | | | Staphyloco | | | | | | | | ccus | | | | | | | | aureus | + + +----+---+---+---+ + + + | Lab Report: CBC With Differential/Platelet | + + + + + + + +---+ + | | ALB/GLOB | 1.5 | | 1.1-2.5 | | albumin/gl | | | S*R | | | | | obulin | | | | | | | | ratio, | | | | | | | | serum, | | | | | | | | from | | | | | | | | reference | | | | | | | | lab | + + + + + +---+ + | | NEUTRO | 2.6 | 10*3/mm3 | 1.8-7.8 | | neutrophil | | | COUNT | X10E3/UL | | | | count, | | | | | | | | blood | + + + + + +---+ + | | MCHC | 32.9 G/DL | % | 31.5-35.7 | | mean | | | | | | | | corpuscula | | | | | | | | r | | | | | | | | hemoglobin | | | | | | | | | | | | | | | | concentrat | | | | | | | | ion, RBC | + + + + + +---+ + + + | Lab Report: Urinalysis, Routine | + + + + + +--------+ +---+ + | | D-DIMER | 0.74 MG/L | ng/mL | <0.50 | H | FIBRIN | | | TITR | FEU | | | | FRAGMENTS | | | | | | | | (PT; PPP; | | | | | | | | QN; ) | + + + +--------+ +---+ + | | MUCUS | Present | | Not Estab. | | mucus on | | | URINE | | | | | urinalysis | + + + +--------+ +---+ + | | CAST TYP | Hyaline | | N/A | | cast type, | | | URN | casts | | | | | | | | | | | | urinalysis | + + + +--------+ +---+ + | | CASTS | Present | /[LPF] | None seen | A | casts, | | | URINE | | | | | urine | + + + +--------+ +---+ + | | URINE | See below: | | | | urinalysis | | | MICRO | | | | | , | | | | | | | | microscopi | | | | | | | | c | | | | | | | | examinatio | | | | | | | | n | + + + +--------+ +---+ + | | OCC BLD UR | Negative | | Negative | | Occult | | | | | | | | Blood, | | | | | | | | urine | + + + +--------+ +---+ + + + | Lab Report: CBC w/ Diff - w/ platelets | + + + + + +---+--------+---+ + | | PLATELT(ES | Normal | | Normal | | platelet | | | T) | | | | | count, | | | | | | | | estimate | + + + +---+--------+---+ + | | POIKILOCYT | NOT SEEN | | 0-1+ | | poikilocyt | | | E | | | | | osis | + + + +---+--------+---+ + | | ANISOCYTOS | NOT SEEN | | 0-1+ | | ANISOCYTOS | | | IS | | | | | IS | + + + +---+--------+---+ + + + | Lab Report: Platelet Function Assay | + + + + + +---+--------+---+ + | | COLLAGEN | 158 | s | 50-106 | H | collagen | | | ADP | | | | | adenosine | | | | | | | | diphosphat | | | | | | | | e | + + + +---+--------+---+ + | | COLLAGEN | >300 sec | s | 55-207 | H | collagen | | | EPI | | | | | epinephrin | | | | | | | | e | + + + +---+--------+---+ + + + | Lab Report: Erythro Sed RateTerry | + + + +-----+----+------+------+---+ + | | ESR | 34 | mm/h | 0-30 | H | erythrocyt | | | | | | | | e | | | | | | | | sedimentat | | | | | | | | ion rate | + +-----+----+------+------+---+ + + + | Lab Report: SPEP with JESÚS if indicated | + + + + + +------+ +---+ + | | SPE | SEE BELOW | | | | serum | | | COMMENT | | | | | protein | | | | | | | | electropho | | | | | | | | resis, | | | | | | | | interpreta | | | | | | | | tion/comme | | | | | | | | nt | + + + +------+ +---+ + | | GAMMA% | 12.5 | % | 7.5-24.0 | | gamma | | | | | | | | globulin, | | | | | | | | serum as | | | | | | | | percentage | | | | | | | | of total | | | | | | | | serum | | | | | | | | protein | + + + +------+ +---+ + | | ALPHA 2% | 12.3 | % | 6.0-17.0 | | alpha-2 | | | | | | | | globulin, | | | | | | | | serum, as | | | | | | | | percent of | | | | | | | | total | | | | | | | | serum | | | | | | | | protein | + + + +------+ +---+ + | | ALPHA 1% | 2.5 | % | 1.0-6.0 | | alpha 1 | | | | | | | | globulin, | | | | | | | | serum, as | | | | | | | | percent of | | | | | | | | total | | | | | | | | serum | | | | | | | | protein | + + + +------+ +---+ + | | ALBUMIN % | 58.8 | % | 45.0-80.0 | | albumin as | | | | | | | | | | | | | | | | percentage | | | | | | | | of total | | | | | | | | serum | | | | | | | | protein | + + + +------+ +---+ + | | GAMMA SER | 0.8 | g/dL | 0.6-1.5 | | gamma | | | PE | | | | | globulin, | | | | | | | | serum by | | | | | | | | protein | | | | | | | | electropho | | | | | | | | resis | + + + +------+ +---+ + | | [id number] | 0.4 | g/dL | 0.2-0.5 | | beta 2 | | | LN | | | | | globulin | + + + +------+ +---+ + | | [id number] | 0.6 | g/dL | 0.4-0.8 | | beta 1 | | | LN | | | | | globulin | + + + +------+ +---+ + | | ALPH-2 SR | 0.8 | g/dL | 0.5-1.1 | | alpha-2 | | | PE | | | | | globulin, | | | | | | | | serum, by | | | | | | | | protein | | | | | | | | electropho | | | | | | | | resis | + + + +------+ +---+ + | | ALPH-1 SR | 0.2 | g/dL | 0.1-0.4 | | alpha-1 | | | PE | | | | | globulin, | | | | | | | | serum, by | | | | | | | | protein | | | | | | | | electropho | | | | | | | | resis | + + + +------+ +---+ + | | TOT PROT | 6.8 | g/dL | 6.1-7.8 | | protein, | | | PE | | | | | total, | | | | | | | | serum by | | | | | | | | protein | | | | | | | | electropho | | | | | | | | resis | + + + +------+ +---+ + + + | Lab Report: Vitamin D, 25-Hydroxy, Rheumatoid Factor (Quant), Cyclic Cit ... | + + + + + +---------+-----+---+ + | | CYCCITRULP | <16 | U | <20 | | cyclic | | | EP | | | | | citrulline | | | | | | | | peptide, | | | | | | | | IgG | + + + +---------+-----+---+ + | | RA FACTOR | <20 IU/mL | [iU]/mL | <20 | | rheumatoid | | | | | | | | factor | + + + +---------+-----+---+ + + + | Lab Report: Antinuclear Antibodies (IVANA) | + + + +-----+ +---+ +---+ + | | IVANA | Negative | | Negative | | antinuclea | | | | | | | | r antibody | + +-----+ +---+ +---+ + + + | Office Visit: Cardiology Office Visit | + + + + + +---+---+---+ + | | ECHOINTERP | Transesoph | | | | echocardio | | | | ageal | | | | gram | | | | echo:Findi | | | | interpreta | | | | ngs:1. | | | | tion | | | | Thoracic | | | | | | | | aorta: No | | | | | | | | significan | | | | | | | | t | | | | | | | | atheromato | | | | | | | | us | | | | | | | | disease.2. | | | | | | | | Left | | | | | | | | ventricle: | | | | | | | | Normal | | | | | | | | size and | | | | | | | | systolic | | | | | | | | function; | | | | | | | | concentric | | | | | | | | LVH, | | | | | | | | withpromin | | | | | | | | ent | | | | | | | | papillary | | | | | | | | muscles.3. | | | | | | | | Right | | | | | | | | ventricle: | | | | | | | | Normal | | | | | | | | size and | | | | | | | | systolic | | | | | | | | function.4 | | | | | | | | . Left | | | | | | | | atrium: | | | | | | | | Mild | | | | | | | | enlargemen | | | | | | | | t; no left | | | | | | | | atrial or | | | | | | | | left | | | | | | | | atrial | | | | | | | | appendaget | | | | | | | | hrombus; | | | | | | | | preserved | | | | | | | | left | | | | | | | | atrial | | | | | | | | appendage | | | | | | | | contractil | | | | | | | | ity, with | | | | | | | | normalvelo | | | | | | | | cities.5. | | | | | | | | Right | | | | | | | | atrium: | | | | | | | | Normal; | | | | | | | | prominent | | | | | | | | eustachian | | | | | | | | valve | | | | | | | | remnant | | | | | | | | (normalvar | | | | | | | | iant).6. | | | | | | | | Mitral | | | | | | | | valve: | | | | | | | | Trivial | | | | | | | | regurgitat | | | | | | | | ion. There | | | | | | | | is a | | | | | | | | small | | | | | | | | independen | | | | | | | | tlymobile | | | | | | | | highly | | | | | | | | echogenic | | | | | | | | oval-shape | | | | | | | | d mass | | | | | | | | attached | | | | | | | | to the | | | | | | | | ventricula | | | | | | | | r side | | | | | | | | ofthe | | | | | | | | anterior | | | | | | | | mitral | | | | | | | | leaflet.7. | | | | | | | | Tricuspid | | | | | | | | valve: | | | | | | | | Trivial | | | | | | | | regurgitat | | | | | | | | ion.8. | | | | | | | | Aortic | | | | | | | | valve: | | | | | | | | Sclerotic, | | | | | | | | without | | | | | | | | stenosis; | | | | | | | | no | | | | | | | | significan | | | | | | | | t | | | | | | | | regurgitat | | | | | | | | ion.9. | | | | | | | | Pulmonic | | | | | | | | valve: Not | | | | | | | | well | | | | | | | | visualized | | | | | | | | .10. | | | | | | | | Interatria | | | | | | | | l septum: | | | | | | | | No shunts | | | | | | | | by color | | | | | | | | and bubble | | | | | | | | | | | | | | | | studies.*I | | | | | | | | nitial | | | | | | | | Impression | | | | | | | | :Questiona | | | | | | | | ble | | | | | | | | papillary | | | | | | | | fibroelast | | | | | | | | shasta on | | | | | | | | anterior | | | | | | | | mitral | | | | | | | | valve | | | | | | | | leaflet.*A | | | | | | | | ddendum: | | | | | | | | Images | | | | | | | | sent to | | | | | | | | [facility] for a | | | | | | | | | | | | | | | | consultati | | | | | | | | on with | | | | | | | | echocardio | | | | | | | | graphyserv | | | | | | | | ice. The | | | | | | | | preliminar | | | | | | | | y | | | | | | | | impression | | | | | | | | is a | | | | | | | | redundant | | | | | | | | mitral | | | | | | | | valve | | | | | | | | chord | | | | | | | | ratherthan | | | | | | | | a | | | | | | | | papillary | | | | | | | | fibroelast | | | | | | | | shasta; | | | | | | | | official | | | | | | | | reading | | | | | | | | pending.*T | | | | | | | | ransthorac | | | | | | | | ic echo:1. | | | | | | | | Normal LV | | | | | | | | size and | | | | | | | | systolic | | | | | | | | function; | | | | | | | | EF 66%.2. | | | | | | | | There is a | | | | | | | | small | | | | | | | | mobile | | | | | | | | mass | | | | | | | | associated | | | | | | | | with the | | | | | | | | ventricula | | | | | | | | r aspect | | | | | | | | ofthe | | | | | | | | anterior | | | | | | | | mitral | | | | | | | | leaflet, | | | | | | | | suggestive | | | | | | | | of a | | | | | | | | possible | | | | | | | | papillaryf | | | | | | | | ibroelasto | | | | | | | | ma; | | | | | | | | consider | | | | | | | | ANDRE for | | | | | | | | further | | | | | | | | evaluation | | | | | | | | if | | | | | | | | clinically | | | | | | | | | | | | | | | | warranted. | | | | | | | | *Signature | | | | | | | [...] | | | | | | | -- | | | | | | | | Electronic | | | | | | | | ally | | | | | | | | signed by | | | | | | | | Sumeet | | | | | | | | Pelon, | | | | | | | | | | | | | | | | MD(Interpr | | | | | | | | eting | | | | | | | | Physician) | | | | | | | | on | | | | | | | | 01/13/2013 | | | | | | | | 11:53 | | | | | | | | AM-------- | | | | | | | | | | | | | | | | | | | | | | | | ------ | | | | | + + + +---+---+---+ + + + | Replaced Document: CMP (Comprehensive Metabolic Panel), CK with CKMB, Troponin I | + + + +--------+-----+-------+---------+---+ + | | CK/MB | 1.8 | | 0.0-4.0 | | creatine | | | INDEX | | | | | kinase/cre | | | | | | | | atine | | | | | | | | kinase MB | | | | | | | | fraction | | | | | | | | index | + +--------+-----+-------+---------+---+ + | | CK-MB | 1.7 | ng/mL | 0.0-3.6 | | creatine | | | ISOENZ | | | | | kinase MB | | | | | | | | isoenzyme | | | | | | | | (band), | | | | | | | | serum | + +--------+-----+-------+---------+---+ + | | CPK | 94 | U/L | 26-192 | | creatine | | | | | | | | kinase, | | | | | | | | serum | + +--------+-----+-------+---------+---+ + + + | Office Visit: blood sugars elevated | + + + + +---+---+---+---+ + | | BLDGLUCMON | 2 | | | | blood | | | IT | | | | | glucose | | | | | | | | monitoring | + + +---+---+---+---+ + + + | Lab Report: TSH, Triiodothyronine (T3), Free, T4 free | + + + + +------+-------+ +---+ + | | T4, FREE | 0.98 | ng/dL | 0.70-1.60 | | thyroxine, | | | | | | | | serum, | | | | | | | | free | + + +------+-------+ +---+ + | | T3 FREE | 2.97 | pg/mL | 2.18-3.98 | | triiodothy | | | | | | | | ronine, | | | | | | | | free, | | | | | | | | serum | + + +------+-------+ +---+ + + + | Lab Report: Prothrombin Time, PTT-Partial Thromboplastin Time | + + + +---------+------+---+ +---+---------+ | | PTT | 23.4 | s | 25.0-34.0 | L | PTT | | | PATIENT | | | | | patient | + +---------+------+---+ +---+---------+ + + | EKG Report: 12 Lead ECG | + + + + + +---+---+---+ + | | EKG INTERP | Normal | | | | electrocar | | | | sinus | | | | diogram | | | | rhythmNons | | | | interpreta | | | | pecific ST | | | | tion | | | | | | | | | | | | abnormalit | | | | | | | | yAbnormal | | | | | | | | ECGWhen | | | | | | | | compared | | | | | | | | with ECG | | | | | | | | of | | | | | | | | | | | | | | | | 5 | | | | | | | | 22:35,Crit | | | | | | | | eria for | | | | | | | | Inferior | | | | | | | | infarct | | | | | | | | are no | | | | | | | | longer | | | | | | | | Present | | | | | + + + +---+---+---+ + + + | Replaced Document: Urinalysis Culture If Indicat, Urinalysis, Microscopic | + + + + +-----+---+---------+---+ + | | UA | Mod | | 0-Heavy | | urinalysis | | | AMORPHOUS | | | | | , | | | | | | | | amorphous | | | | | | | | material | + + +-----+---+---------+---+ + + + | Lab Report: VITAMIN D,25-HYDROXY | + + + +--------+ +-------+---+---+ + | | VIT D | 10.4 (?) | ng/mL | | L | vitamin D | | | 25-OH | | | | | 25-hydroxy | | | | | | | | , serum | + +--------+ +-------+---+---+ + + + | Lab Report: TSH | + + + + +-------+ + +---+ + | | TSH ULTRA | 1.290 | u[iU]/mL | 0.360-4.80 | | thyroid | | | | | | 0 | | stimulatin | | | | | | | | g hormone | | | | | | | | (TSH), | | | | | | | | ultra | | | | | | | | sensitive | + + +-------+ + +---+ + + + | Append: hospital f/u kidney failure | + + + +--------+ +---+---+---+ + | | PHQ-9 | 11 | | | | PHQ-9 | | | SCORE | | | | | quick | | | | | | | | depression | | | | | | | | | | | | | | | | assessment | | | | | | | | panel | | | | | | | | [Reported. | | | | | | | | PHQ] | + +--------+ +---+---+---+ + | | PHQ-9 | 2|0|3|3||0 | | | | Adolescent | | | | |3|0|0|Not | | | | | | | | difficult | | | | depression | | | | at all | | | | screening | | | | | | | | | | | | | | | | assessment | + +--------+ +---+---+---+ + + + | Office Visit: hospital f/u | + + + + + +---+---+---+ + | | [facility] | [facility] | | | | [facility] | | | IND | 160 MG | | | | Therapy | | | | TABS 1 TAB | | | | Indicated | | | | one time | | | | | | | | per day | | | | | + + + +---+---+---+ + + + | Lab Report: VITAMIN B12, FOLATE, FERRITIN | + + + +--------+-------+-------+---+---+ + | | FOLATE | >24.8 | ng/mL | | | folate, | | | | | | | | serum | + +--------+-------+-------+---+---+ + | | B12 | 528 | pg/mL | | | vitamin | | | | | | | | b12, serum | + +--------+-------+-------+---+---+ + + + | Lab Report: CMP (Comprehensive Metabolic Panel), Magnesium Level | + + + + +-----+-------+---------+---+ + | | MAGNESIUM | 2.0 | mg/dL | 1.6-2.4 | | magnesium, | | | | | | | | serum | + + +-----+-------+---------+---+ + + + | EKG Report | + + + + +---------+ +---+---+ + | | EKG T AXIS | 54 | deg | | | T wave | | | | | | | | axis, | | | | | | | | electrocar | | | | | | | | diogram | + + +---------+ +---+---+ + | | EKG QRS | -28 | deg | | | QRS axis, | | | AXIS | | | | | electrocar | | | | | | | | diogram | + + +---------+ +---+---+ + | | EKG | 69 | deg | | | P wave | | | PWAVAXIS | | | | | axis, | | | | | | | | electrocar | | | | | | | | diogram | + + +---------+ +---+---+ + | | QT/QTC | 512 | ms | | | QT | | | | | | | | interval/Q | | | | | | | | T interval | | | | | | | | | | | | | | | | (corrected | | | | | | | | for heart | | | | | | | | rate), | | | | | | | | electrocar | | | | | | | | diogram | + + +---------+ +---+---+ + | | QT | 390 | ms | | | QT | | | INTERVAL | | | | | interval, | | | | | | | | electrocar | | | | | | | | diogram | + + +---------+ +---+---+ + | | QRS | 88 | ms | | | QRS | | | INTERVAL | | | | | duration, | | | | | | | | electrocar | | | | | | | | diogram | + + +---------+ +---+---+ + | | AR | 156 | ms | | | AR | | | INTERVAL | | | | | interval, | | | | | | | | electrocar | | | | | | | | diogram | + + +---------+ +---+---+ + | | ATRIAL | 104 | {beats}/mi | | | atrial | | | RATE | | n | | | rate, | | | | | | | | electrocar | | | | | | | | diogram | + + +---------+ +---+---+ + | | VENT RATE | 104 BPM | | | | ventilator | | | | | | | | rate | | | | | | | | setting | + + +---------+ +---+---+ + + + | Lab Report: Immunofixation, Serum | + + + + +-----+-------+ +---+ + | | IGM SERUM | 218 | mg/dL | 26-217 | H | IgM, serum | + + +-----+-------+ +---+ + | | IGA SERUM | 249 | mg/dL | 87-352 | | IgA, serum | + + +-----+-------+ +---+ + | | IGG SERUM | 920 | mg/dL | 700-1600 | | IgG, serum | + + +-----+-------+ +---+ + + + | Lab Report: Protein Electro, Random Urine, Immunofixation, Urine | + + + + + +---+ +---+ + | | MNCL SP % | Not | % | Not | | gamma | | | UR | Observed | | Observed | | globulin, | | | | | | | | monoclonal | | | | | | | | spike, | | | | | | | | percent, | | | | | | | | urine | + + + +---+ +---+ + | | BETA UR PE | 11.6 | % | | | beta | | | | | | | | globulin, | | | | | | | | urine, by | | | | | | | | electropho | | | | | | | | resis | + + + +---+ +---+ + | | ALPH-2 UR | 2.7 | % | | | alpha-2 | | | PE | | | | | globulin, | | | | | | | | urine by | | | | | | | | electropho | | | | | | | | resis | + + + +---+ +---+ + | | ALPH-1 UR | 0.8 | % | | | alpha-1 | | | PE | | | | | globulin, | | | | | | | | urine, by | | | | | | | | electropho | | | | | | | | resis | + + + +---+ +---+ + | | ALB UR PE | 76.9 | % | | | albumin, | | | | | | | | urine by | | | | | | | | electropho | | | | | | | | resis | + + + +---+ +---+ + + + | Lab Report: Protein Electro.,S | + + + + +------+-------+ +---+ + | | M.SPIKE | 0.2 | | Not | H | gamma | | | | | | Observed | | globulin, | | | | | | | | serum, | | | | | | | | monoclonal | | | | | | | | spike | + + +------+-------+ +---+ + | | GAMMA GLOB | 1000 | mg/dL | Units | | gamma | | | | | | converted. | | globulin, | | | | | | See lab | | serum | | | | | | report for | | | | | | | | original | | | | | | | | value. | | | + + +------+-------+ +---+ + | | BETA | 1.0 | g/dL | 0.6-1.3 | | beta | | | GLOBUL | | | | | globulin, | | | | | | | | serum | + + +------+-------+ +---+ + | | ALPHA 2 | 0.9 | g/dL | 0.4-1.2 | | alpha-2 | | | GLOB | | | | | globulin, | | | | | | | | serum | + + +------+-------+ +---+ + | | ALPHA 1 | 0.2 | g/dL | 0.1-0.4 | | alpha-1 | | | GLOB | | | | | globulin, | | | | | | | | serum | + + +------+-------+ +---+ + | | ALBUM SER | 3.4 | g/dL | 3.2-5.6 | | albumin, | | | PE | | | | | serum by | | | | | | | | protein | | | | | | | | electropho | | | | | | | | resis | + + +------+-------+ +---+ + + + | Replaced Document: PROTEIN,UR,24 HR | + + + + +-----+--------+-------+---+ + | | ALO PER U | 24 | h | | | collection | | | | | | | | period, | | | | | | | | timed, | | | | | | | | urine | + + +-----+--------+-------+---+ + | | PROT 24H | 738 | mg/24h | 0-150 | H | protein, | | | URN | | | | | total, | | | | | | | | urine, 24 | | | | | | | | hour | + + +-----+--------+-------+---+ + + + | Replaced Document: MICROALBUMIN,UR,24 HR | + + + + +---------+--------+---+---+ + | | MICROALB | 1475 ML | mg/L | | | Microalbum | | | URN | | | | | in | | | | | | | | [Mass/volu | | | | | | | | me] in | | | | | | | | Urine | + + +---------+--------+---+---+ + | | [id number] | 386 | mg/24h | | H | Microalbum | | | U | | | | | in | | | | | | | | [Mass/volu | | | | | | | | me] in 24 | | | | | | | | hour Urine | + + +---------+--------+---+---+ + + + | Lab Report: Coronary Risk Panel | + + + + +-----+-------+--------+---+ + | | C-LDL/C-HD | 1.3 | | | N | LDL/HDL | | | L | | | | | ratio, | | | | | | | | serum | + + +-----+-------+--------+---+ + | | CHOL/HDL | 3.2 | | | N | cholestero | | | | | | | | l/HDL | | | | | | | | ratio, | | | | | | | | serum | + + +-----+-------+--------+---+ + | | VLDL | 47 | mg/dL | 6-32 | H | very low | | | | | | | | density | | | | | | | | lipoprotei | | | | | | | | ns | + + +-----+-------+--------+---+ + | | LDL | 62 | mg/dL | 0-110 | N | Cholestero | | | | | | | | l in LDL | | | | | | | | [Mass/volu | | | | | | | | me] in | | | | | | | | Serum or | | | | | | | | Plasma | + + +-----+-------+--------+---+ + | | HDL | 49 | mg/dL | >39 | N | Cholestero | | | | | | | | l in HDL | | | | | | | | [Mass/volu | | | | | | | | me] in | | | | | | | | Serum or | | | | | | | | Plasma | + + +-----+-------+--------+---+ + | | TRIGLYCERI | 238 | mg/dL | 30-160 | H | Triglyceri | | | DE | | | | | de | | | | | | | | [Mass/volu | | | | | | | | me] in | | | | | | | | Serum or | | | | | | | | Plasma | + + +-----+-------+--------+---+ + | | CHOLESTERO | 159 | mg/dL | 50-200 | N | Cholestero | | | L | | | | | l | | | | | | | | [Mass/volu | | | | | | | | me] in | | | | | | | | Serum or | | | | | | | | Plasma | + + +-----+-------+--------+---+ + + + | Podiatry Visit: Diabetic Foot Care Visit- | + + + +---------+-----+---+---+---+ + | | DIET | yes | | | | Dietary | | | HOME VISITOR | | | | | management | | | | | | | | | | | | | | | | education, | | | | | | | | guidance, | | | | | | | | and | | | | | | | | counseling | | | | | | | | | | | | | | | | (procedure | | | | | | | | ) | + +---------+-----+---+---+---+ + + + | Lab Report: Chem 8 with HGB + HCT (ISTAT) | + + + + +--------+-------+ +---+ + | | CALCIUM | 1.13 | mg/dL | 1.10-1.46 | N | calcium, | | | ION. | MMOL/L | | | | serum, | | | | | | | | ionized | + + +--------+-------+ +---+ + + + | Office Visit: DAISY f/u | + + + +------+----+---+---+---+ + | | MMSE | 23 | | | | Assessment | | | | | | | | and | | | | | | | | interpreta | | | | | | | | tion of | | | | | | | | higher | | | | | | | | cerebral | | | | | | | | function, | | | | | | | | cognitive | | | | | | | | testing | | | | | | | | (procedure | | | | | | | | ) | + +------+----+---+---+---+ + + + | Lab Report: COMPLETE BLOOD COUNT WITH AUTOMATED DIFFERENTIAL | + + + + +-----+ +---------+---+ + | | BASOPH | 0.0 | 10*3/mm3 | 0.0-0.2 | | basophil | | | COUNT | | | | | count, | | | | | | | | blood | + + +-----+ +---------+---+ + | | EOS COUNT | 0.0 | 10*3/mm3 | 0.0-0.5 | | eosinophil | | | | | | | | count, | | | | | | | | blood | + + +-----+ +---------+---+ + | | MONOCYTE | 0.2 | 10*3/mm3 | 0.2-1.0 | | monocyte | | | CNT | | | | | count, | | | | | | | | blood | + + +-----+ +---------+---+ + | | LYMPH | 1.2 | 10*3/mm3 | 1.0-3.5 | | lymphocyte | | | COUNT | | | | | count, | | | | | | | | blood | + + +-----+ +---------+---+ + + + | Lab Report: RENAL FUNCTION PANEL, HEPATIC FUNCTION PANEL, AMYLASE, LIPASE | + + + +---------+----+-----+--------+---+ + | | AMYLASE | 76 | U/L | 23-103 | | amylase, | | | | | | | | serum | + +---------+----+-----+--------+---+ + + + | Lab Report: Prothrombin Time | + + + + +------+---+ +---+ + | | INR | 1.01 | | | N | internatio | | | | | | | | nal | | | | | | | | normalized | | | | | | | | ratio | | | | | | | | (INR) | + + +------+---+ +---+ + | | PT PATIENT | 10.5 | s | 9.7-11.5 | N | prothrombi | | | | | | | | n time | | | | | | | | (patient) | + + +------+---+ +---+ + + + | Lab Report: Comprehensive Metabolic Panel, Troponin I, Lipase, Blood | + + + +---------+-----+-----+--------+---+ + | | LIPASE | 299 | U/L | 73-393 | N | lipase, | | | SERUM | | | | | serum | + +---------+-----+-----+--------+---+ + + + | Lab Report: B-Type Natriuretic Peptide | + + + + +----+-------+-------+---+ + | | BNP PG/ML | 11 | pg/mL | 0-100 | N | B-type | | | | | | | | natriureti | | | | | | | | c peptide | + + +----+-------+-------+---+ + + + | Lab Report: Urinalysis, Culture If Indicat, Urinalysis, Microscopic | + + + + +-----+--------+-----+---+ + | | HYAL CAST | 2-5 | /[LPF] | 0-2 | H | hyaline | | | UR | | | | | casts, | | | | | | | | urine | + + +-----+--------+-----+---+ + + + | Lab Report: RENAL FUNCTION PANEL, HEPATIC FUNCTION PANEL | + + + +--------+-----+-------+---------+---+ + | | BILI | 0.1 | mg/dL | 0.0-0.3 | | bilirubin, | | | DIRECT | | | | | serum, | | | | | | | | direct | + +--------+-----+-------+---------+---+ + + + | Lab Report: HEPATITIS C VIRUS ANTIBODY | + + + + + +---+ +---+ + | | HEP C AB | Negative | | Negative | | hepatitis | | | | | | | | C | | | | | | | | antibody, | | | | | | | | serum | + + + +---+ +---+ + + + | Lab Report: Iron Deficiency Panel | + + + + +------+-------+ +---+ + | | IRON SATUR | 20.6 | % | 15.0-50.0 | N | iron | | | % | | | | | saturation | | | | | | | | percent, | | | | | | | | serum | + + +------+-------+ +---+ + | | TIBC | 296 | ug/dL | 250-450 | N | iron | | | | | | | | binding | | | | | | | | capacity, | | | | | | | | total | + + +------+-------+ +---+ + | | IRON | 61 | ug/dL | 50-170 | N | iron, | | | | | | | | serum | + + +------+-------+ +---+ + + + | Mental Health Visit: Psychiatric Diagnostic Interview Progress Note | + + + + +----+---+---+---+--------+ | | MMSE SCORE | 24 | | | | Total | | | | | | | | score | | | | | | | | [MMSE] | + + +----+---+---+---+--------+ + + | Lab Report: Glyco Hemoglobin, A1C | + + + +--------+-----+---+---------+---+ + | | HGBA1C | 8.6 | % | 4.6-6.2 | H | Hemoglobin | | | | | | | | | | | | | | | | A1c/Hemogl | | | | | | | | obin.total | | | | | | | | in Blood | + +--------+-----+---+---------+---+ + + + | Lab Report: Ammonia | + + + + +----+--------+-------+---+ + | | AMMONIA(BL | 19 | umol/L | 11-35 | N | ammonia, | | | D) | | | | | serum | + + +----+--------+-------+---+ + + + | Lab Report: Ferritin, Serum | + + + + +-----+-------+-------+---+ + | | FERRITIN | 226 | ng/mL | 8-252 | N | ferritin, | | | | | | | | serum | + + +-----+-------+-------+---+ + + + | Replaced Document: Urinalysis, Culture If Indicat | + + + + +-----+---+-----+---+ + | | REFURINCLT | Yes | | No | H | reflex | | | IN | | | | | urine | | | | | | | | culture | | | | | | | | indicated | + + +-----+---+-----+---+ + | | BLOOD | Neg | | Neg | N | RBC, | | | URINE | | | | | urine, | | | | | | | | dipstick | + + +-----+---+-----+---+ + + + | Replaced Document: Urinalysis, Culture If Indicat, Urinalysis, Microscopic | + + + + + + +------+---+ + | | UR | NOTE: | | | H | URINALYSIS | | | COMMENTS | | | | | COMMENTS | + + + + +------+---+ + | | BACTERIA | Mod | | None | H | bacteria, | | | URN | | | | | urine | | | | | | | | microscopy | + + + + +------+---+ + | | EPI | Few | /[HPF] | Few | N | epithelial | | | CELL/HPF | | | | | cells, | | | | | | | | urine, per | | | | | | | | | | | | | | | | microscopy | + + + + +------+---+ + | | RBCS MICRO | 0-2 | | 0-2 | N | RBC urine | | | U | | | | | by | | | | | | | | microscopy | + + + + +------+---+ + | | WBCS MICRO | 2-5 /hpf | {Cells}/[H | 0-5 | N | WBC urine | | | U | | PF] | | | on | | | | | | | | microscopy | + + + + +------+---+ + + + | Office Visit: F/u DM | + + + + + +-------+---+---+ + | | PH URINE | 5.0 | | | | pH, urine, | | | | | | | | | | | | | | | | semiquanti | | | | | | | | tative | + + + +-------+---+---+ + | | SPEC GR | 1.010 | | | | specific | | | URIN | | | | | gravity, | | | | | | | | urine | + + + +-------+---+---+ + | | APPEARANCE | hazy | | | | appearance | | | U | | | | | , urine | + + + +-------+---+---+ + | | UA COLOR | yellow | | | | urine | | | | | | | | color | + + + +-------+---+---+ + | | GLUCOSE, | 1+ | | | | glucose, | | | URN | | | | | urine, | | | | | | | | semiquanti | | | | | | | | tative | + + + +-------+---+---+ + | | BILIRUBIN | negative | | | | bilirubin, | | | UR | | | | | urine | + + + +-------+---+---+ + | | KETONES | negative | | | | ketones, | | | URN | | | | | urine, by | | | | | | | | test strip | + + + +-------+---+---+ + | | BLOOD UR | non-hemoly | | | | blood in | | | DIP | zed trace | | | | urine | | | | | | | | (hemoglobi | | | | | | | | n) by | | | | | | | | dipstick | + + + +-------+---+---+ + | | PROTEIN, | negative | | | | Albumin | | | URN | | | | | [Presence] | | | | | | | | in Urine | + + + +-------+---+---+ + | | UROBILINOG | negative | | | | urobilinog | | | EN | | | | | en, urine, | | | | | | | | | | | | | | | | semiquanti | | | | | | | | tative | | | | | | | | (dipstick) | + + + +-------+---+---+ + | | NITRITE | negative | | | | nitrite, | | | URN | | | | | urine, | | | | | | | | semiquanti | | | | | | | | tative | + + + +-------+---+---+ + | | WBC DIPSTK | 2+ | | | | leukocyte | | | U | | | | | esterase, | | | | | | | | urine, by | | | | | | | | dipstick | + + + +-------+---+---+ + | | BG RANDOM | 224 | mg/dL | | | blood | | | | | | | | glucose, | | | | | | | | random | + + + +-------+---+---+ + + + | Lab Report: CBC with Auto Diff | + + + + +------+ + +---+ + | | ABSOLUTE | 0.03 | 10*3/uL | 0.00-0.23 | N | Absolute | | | BAS | | | | | Basophils | + + +------+ + +---+ + | | EOS ABSLT | 0.24 | 10*3/uL | 0.00-0.68 | N | Eosinophil | | | | | | | | Absolute | | | | | | | | Count | + + +------+ + +---+ + | | ABSOLUTE | 0.23 | 10*3/uL | 0.16-1.47 | N | Absolute | | | MON | | | | | Monocytes | + + +------+ + +---+ + | | LYMPHOCYTA | 1.84 | 10*3/uL | 0.84-5.20 | N | lymphocyte | | | BS | | | | | s, | | | | | | | | absolute | + + +------+ + +---+ + | | ANC | 1.92 | 10*3/mm3 | 1.96-9.15 | L | neutrophil | | | | | | | | count, | | | | | | | | blood | + + +------+ + +---+ + | | NRBCS/100W | 0.0 | % | 0.0-0.2 | N | nucleated | | | BC | | | | | red blood | | | | | | | | cells as | | | | | | | | percent of | | | | | | | | blood | | | | | | | | leukocytes | + + +------+ + +---+ + | | IMM GRANU | 0 | % | 0-1 | N | immature | | | % | | | | | granulocyt | | | | | | | | es, | | | | | | | | percentage | | | | | | | | of total | | | | | | | | cells, | | | | | | | | blood | + + +------+ + +---+ + | | BASOPHIL % | 1 | % | 0-2 | N | basophils | | | | | | | | as percent | | | | | | | | of blood | | | | | | | | leukocytes | + + +------+ + +---+ + | | EOSINOPHIL | 6 | % | 0-6 | N | eosinophil | | | % | | | | | s as | | | | | | | | percent of | | | | | | | | blood | | | | | | | | leukocytes | + + +------+ + +---+ + | | MONOCYTE % | 5 | % | 4-13 | N | monocytes | | | | | | | | as percent | | | | | | | | of blood | | | | | | | | leukocytes | + + +------+ + +---+ + | | LYMPHS % | 43 | % | 21-46 | N | lymphocyte | | | | | | | | s as | | | | | | | | percent of | | | | | | | | blood | | | | | | | | leukocytes | + + +------+ + +---+ + | | PMN % | 45 | % | 41-73 | N | neutrophil | | | | | | | | s as | | | | | | | | percent of | | | | | | | | blood | | | | | | | | leukocytes | + + +------+ + +---+ + | | MPV | 12.2 | fL | 9.1-12.4 | N | mean | | | | | | | | platelet | | | | | | | | volume | + + +------+ + +---+ + | | PLATELETS | 126 | 10*3/mm3 | 150-400 | L | platelet | | | | | | | | count | + + +------+ + +---+ + | | RDW | 13.2 | % | 11.7-14.2 | N | red blood | | | | | | | | cell | | | | | | | | distributi | | | | | | | | on width | + + +------+ + +---+ + | | RDW-SD | 42.2 | fL | 35.1-46.3 | N | red blood | | | | | | | | cell | | | | | | | | distributi | | | | | | | | on width, | | | | | | | | size | | | | | | | | density | + + +------+ + +---+ + | | MCHC RBC | 34.5 | g/dL | 31.5-36.5 | N | mean | | | | | | | | corpuscula | | | | | | | | r | | | | | | | | hemoglobin | | | | | | | | | | | | | | | | concentrat | | | | | | | | ion, RBC | + + +------+ + +---+ + | | MCH | 31.3 | pg | 26.0-34.0 | N | mean | | | | | | | | corpuscula | | | | | | | | r | | | | | | | | hemoglobin | | | | | | | | , RBC | + + +------+ + +---+ + | | MCV | 91 | fL | 80-100 | N | mean | | | | | | | | corpuscula | | | | | | | | r volume, | | | | | | | | RBC | + + +------+ + +---+ + | | HCT | 28.4 | % | 33.0-51.0 | L | hematocrit | | | | | | | | , blood | + + +------+ + +---+ + | | HGB | 9.8 | g/dL | 11.5-16.0 | L | hemoglobin | | | | | | | | , blood | + + +------+ + +---+ + | | RBC | 3.13 | 10*6/mm3 | 3.80-5.20 | L | erythrocyt | | | | | | | | e (RBC) | | | | | | | | count | + + +------+ + +---+ + | | WBC | 4.27 | 10*3/mm3 | 4.00-11.30 | N | leukocyte | | | | | | | | count, | | | | | | | | blood | + + +------+ + +---+ + + + | Lab Report: Comprehensive Metabolic Panel | + + + + +-----+--------+---------+---+ + | | SGPT (ALT) | 43 | U/L | 12-78 | N | alanine | | | | | | | | aminotrans | | | | | | | | ferase | | | | | | | | (SGPT), | | | | | | | | serum | + + +-----+--------+---------+---+ + | | SGOT (AST) | 44 | U/L | 12-37 | H | aspartate | | | | | | | | aminotrans | | | | | | | | ferase | | | | | | | | (SGOT), | | | | | | | | serum | + + +-----+--------+---------+---+ + | | ALK PHOS | 168 | U/L | 50-136 | H | alkaline | | | | | | | | phosphatas | | | | | | | | e, serum | + + +-----+--------+---------+---+ + | | BILI TOTAL | 0.2 | mg/dL | 0.1-1.0 | N | bilirubin, | | | | | | | | serum, | | | | | | | | total | + + +-----+--------+---------+---+ + | | A/G RATIO | 0.9 | | 0.8-1.8 | N | albumin/gl | | | | | | | | obulin | | | | | | | | ratio, | | | | | | | | serum | + + +-----+--------+---------+---+ + | | GLOBULIN | 3.6 | g/dL | 2.2-4.0 | N | globulins, | | | TOT | | | | | serum, | | | | | | | | total | + + +-----+--------+---------+---+ + | | PROTEIN, | 6.9 | g/dL | 6.4-8.2 | N | protein, | | | TOT | | | | | total, | | | | | | | | serum | + + +-----+--------+---------+---+ + | | ANION GAP | 10 | mmol/L | 6-16 | N | anion gap, | | | | | | | | serum | + + +-----+--------+---------+---+ + + + | Lab Report: Troponin I | + + + + +--------+-------+ +---+ + | | TROPONIN I | <0.017 | ng/mL | 0.000-0.04 | N | troponin I | | | | | | 0 | | | + + +--------+-------+ +---+ + + + | Lab Report: COPY RECEIVED FROM:, RENAL FUNCTION PANEL | + + + + + + + +---+ + | | ALBUMIN | 3.8 | g/dL | 3.6-5.1 | N | albumin, | | | | | | | | serum | + + + + + +---+ + | | PO4 | 3.4 | mg/dL | 2.1-4.3 | N | phosphate, | | | | | | | | serum | + + + + + +---+ + | | CALCIUM | 9.5 | mg/dL | 8.6-10.4 | N | calcium, | | | | | | | | serum | + + + + + +---+ + | | CO2 | 26 | mmol/L | 20-31 | N | carbon | | | | | | | | dioxide, | | | | | | | | venous | | | | | | | | blood | + + + + + +---+ + | | CHLORIDE | 106 | mmol/L | 98-110 | N | chloride, | | | | | | | | serum | + + + + + +---+ + | | POTASSIUM | 5.2 | mmol/L | 3.5-5.3 | N | potassium, | | | | | | | | serum | + + + + + +---+ + | | SODIUM | 139 | mmol/L | 135-146 | N | sodium, | | | | | | | | serum | + + + + + +---+ + | | BUN/CREAT | 17 (calc) | | 6-22 | N | urea | | | | | | | | nitrogen/c | | | | | | | | reatinine | | | | | | | | ratio, | | | | | | | | serum | + + + + + +---+ + | | EGFR | 32 | mL/min/1.7 | > OR = 60 | L | Estimated | | | | | 3m2 | | | Glomerular | | | | | | | | | | | | | | | | Filtration | | | | | | | | Rate | | | | | | | | (calc) | + + + + + +---+ + | | GFRC | 28 | mL/min/1.7 | > OR = 60 | L | Glomerular | | | | | 3m2 | | | | | | | | | | | Filtration | | | | | | | | Rate | | | | | | | | Calculatio | | | | | | | | n | + + + + + +---+ + | | CREATININE | 1.80 | mg/dL | 0.60-0.93 | H | creatinine | | | | | | | | , serum | + + + + + +---+ + | | BUN | 31 | mg/dL | 7-25 | H | urea | | | | | | | | nitrogen, | | | | | | | | blood | + + + + + +---+ + | | GLUCOSE | 241 | mg/dL | 65-99 | H | blood | | | SER | | | | | glucose | + + + + + +---+ + | | ZZ-GE-UNK | * | | | | GE use | | | | | | | | only - for | | | | | | | | LinkLogic | | | | | | | | import | | | | | | | | when terms | | | | | | | | are not | | | | | | | | otherwise | | | | | | | | specified | + + + + + +---+ + + + | Rx Refill: eRx Request for CLOPIDOGREL 75MG TAB | + + + +--------+ +---+---+---+ + | | ESM_RR | [id number] | | | B | e-scripts | | | | 2`CLOPIDOG | | | | messenger | | | | REL 75MG | | | | refill | | | | | | | | request | | | | TAB`75MG`` | | | | | | | | 30 | | | | | | | | Tablet`30` | | | | | | | | TAKE ONE | | | | | | | | TABLET BY | | | | | | | | MOUTH ONCE | | | | | | | | DAILY IN | | | | | | | | THE | | | | | | | | EVENING``1 | | | | | | | | `0`08/27/ | | | | | | | | 017`09/30/ | | | | | | | | 2016`Walma | | | | | | | | rt - | | | | | | | | [place]*` | | | | | | | | [id number] | | | | | | | | `[id number] | | | | | | | | 10``CLOPID | | | | | | | | OGREL 75MG | | | | | | | | TAB | | | | | | | | Quantity: | | | | | | | | 30 Tablet | | | | | | | | | | | | | | | | Instructio | | | | | | | | ns: TAKE | | | | | | | | ONE TABLET | | | | | | | | BY MOUTH | | | | | | | | ONCE DAILY | | | | | | | | IN THE | | | | | | | | EVENING | | | | | + +--------+ +---+---+---+ + + + | Office Visit: ED f/u | + + + +--------+--------+---+---+---+ + | | MEDS | Done | | | | Documentat | | | REVIEW | | | | | ion of | | | | | | | | current | | | | | | | | medication | | | | | | | | s | | | | | | | | (procedure | | | | | | | | ) | + +--------+--------+---+---+---+ + | | SMOK | never | | | | Tobacco | | | STATUS | smoker | | | | use [facility] | + +--------+--------+---+---+---+ + Plan of Care + + + + | Type | Date | Detail | + + + + | Appointment | 03:30 PM | David ACEVEDO FACP, | | | | [address], [place], [address], | | | | | + + + + | Appointment | 04:30 PM | David Cornejo MD FACE FACP, | | | | [address], [place], [address], | | | | | + + + + | Appointment | 12:30 PM | Christen GORDON, | | | | [address], [place], [address], | | | | | + + + + | Appointment | 12:30 PM | Christen GORDON, | | | | [address], [place], [address], | | | | | + + + + | Referral | | Physical Therapy Evaluation | + + + + | Referral | | GI Consult | | | | Emeka Clark MD, [address] | | | | [address], | | | | [place], [address] | | | | | + + + + | Referral | | GI Consult | | | | Emeka Clark MD, [address] | | | | [address], | | | | [place], [address] | | | | | + + + + | Referral | | Nephrology Evaluation | | | | Anisa Reeves MD, | | | | [address] [facility] | | | | [address] [place], [address] | | | | | | | | | + + + + | Referral | | Nephrology Evaluation | | | | MD Iraj Juarez, | | | | [address], | | | | [address], [place], [address] | | | | | | | | | + + + + | Referral | | Surgical Consult | | | | Jesus Long, [address] | | | [address], | | | | [place], [address] | | | | | + + + + | Referral | | Surgical Consult | | | | Jesus Long, [address] | | | [address], | | | | [place], [address] | | | | | + + + + | Referral | | Endocrinology Consult | + + + + | Referral | | Podiatry Consult | | | | Kali Palacio, [address] | | | | [place], | | | | [place], [address] | | | | | + + + + | Referral | | Nephrology Evaluation | | | | MD Iraj Juarez, | | | | [address], | | | | [address], [place], [place], [address] | | | | | | | | | + + + + | Referral | | Podiatry Consult | | | | Kali Palacio, [address] | | | | [place], | | | | [place], [address] | | | | | + + + + | Referral | | Nephrology Evaluation | | | | MD Irja Juarez, | | | | [address], | | | | [address], [place], [place], [address] | | | | | | | | | + + + + | Referral | | Neurology Consult | | | | [employer] Phone #, | | | | [address] | | | | , [place], [address] | | | | | + + + + | Referral | | Neurology Consult | | | | [employer] Phone #, | | | | [address] [facility] | | | | [place], [place], [address] | | | | | + + + + | Referral | | MRA Head-WO Con | | | | Dian Atkins, [address] | | | | [facility], | | | | [place], [address] | | | | | + + + + | Referral | | MRA Head-WO Con | | | | Dian Atkins, [address] | | | | [address], | | | | [place], [address] | | | | | + + + + | Referral | | MRA Head-WWO Con | | | | Dian Atkins, [address] | | | | [address], | | | | [place], [address] | | | | | + + + + | Referral | | MRA Head-WWO Con | | | | Dian Atkins, [address] | | | | [address], | | | | [place], [address] | | | | | + + + + +---+ + | | Referral excluded from report: | +---+ + + + + + | Referral | | Physical Therapy Evaluation | | | | [facility], [address] | [address] | | | [address], [place], [address] | | | | | | | | | + + + + | Referral | | Neurology Consult | | | | MD August Bourne, [address] | | | | [address], [place], | | | | [place], [address] | | | | | + + + + | Referral | | Neurology Consult | | | | Rogers Ozuna, [address] | | | | [address], [place], | | | | [place], [address] | | | | | + + + + | Referral | | Cardiology Consult | | | | MD Pelon Fay, | | | | [address] | | | | [address], [place], [address] | | | | | | | | | + + + + | Referral | | GI Consult | | | | [address] | | | | [address], [place], [address] | | | | | | | | | + + + + | Referral | | Physical Therapy Evaluation | | | | [facility], [address] | | | | [address] [email or web address] | | | | [address], [place], [address] | | | | | | | | | + + + + | Referral | | Diabetic Education - | | | | Individual | | | | [facility], | | | | [address], | | | | [place], [address] | | | | | + + + + | Referral | | GI Consult | | | | [address] | | | | [address], [place], [address] | | | | | | | | | + + + + | Referral | | US Soft Tissue Head/Neck | | | | Exam Dian | | | | Scheduling, [address] | | | | [place], [place], | | | | [address] | | | | | + + + + | Referral | | Neurology Consult | | | | [place] [facility] | | | | [facility], [address] [facility], | | | | [place], [address] | | | | | + + + + | Referral | | VL Carotid-Cerebral Duplex | | | | Dian | | | | Milly, [address] | | | | [place], [place], | | | | [address] | | | | | + + + + | Referral | | Holter Monitor | | | | Dian Atkins, [address] | | | | [address], | | | | [place], [address] | | | | | + + + + | Pending order | | Comprehensive Metabolic | | | | Panel | + + + + | Pending order | | Glyco Hemoglobin, A1C | + + + + | Pending order | | Ammonia | + + + + | Pending order | | Ferritin Level | + + + + | Pending order | | EGD | + + + + | Pending order | | Colonoscopy diagnostic | + + + + | Pending order | | Iron Deficiency Panel | | | | (Iron, TIBC, %Sat, | | | | Ferritin) | + + + + | Pending order | | Microalb/Creat Ratio UR, | | | | Sandia | + + + + | Pending order | | CBC w/ Auto Diff | + + + + | Pending order | | Glyco Hemoglobin, A1C | + + + + | Pending order | | Lipid Profile | + + + + | Pending order | | US Extrem-Lt | + + + + | Pending order | | Urinalysis Culture If | | | | Indicat | + + + + | Pending order | | US Extrem-Rt | + + + + | Pending order | | Glyco Hemoglobin, A1C | + + + + | Pending order | | Glyco Hemoglobin, A1C | + + + + | Pending order | | Urinalysis Culture If | | | | Indicat | + + + + | Pending order | | Renal Function | + + + + | Pending order | | Renal Function | + + + + | Pending order | | HgbA1C | + + + + | Pending order | | Renal Function | + + + + | Pending order | | Culture Genital | + + + + | Pending order | | Urinalysis Culture If | | | | Indicat | + + + + | Pending order | | HgbA1C | + + + + | Pending order | | T4 Free | + + + + | Pending order | | T3 Free | + + + + | Pending order | | TSH | + + + + | Pending order | | Barium Swallow MBS with | | | | Speech | + + + + | Pending order | | Barium Swallow MBS with | | | | Speech | + + + + | Pending order | | HgbA1C | + + + + | Pending order | | Glomerular Filtration Rate | + + + + | Pending order | | CMP (Comprehensive | | | | Metabolic Panel) | + + + + | Pending order | | Lipid Profile | + + + + | Pending order | | HgbA1C | + + + + | Pending order | | Vit D, 25 hydroxy | + + + + | Pending order | | Cyclic Citrullinated Pept | | | | IgG | + + + + | Pending order | | Rheumatoid Factor (quant) | + + + + | Pending order | | TSH | + + + + | Pending order | | IVANA | + + + + | Pending order | | ANDRE | + + + + | Pending order | | Holter Monitor 48H Panel | + + + + | Pending order | | Holter Monitor 72H Panel | + + + + | Pending order | | Barium Swallow MBS with | | | | Speech | + + + + | Pending order | | US Abdomen-Cmplt and | | | | Pelvic-Lmtd | + + + + | Pending order | | Motor nerve testing - each | | | | nerve | + + + + | Pending order | | Lipid Profile | + + + + | Pending order | | Sedimentation Rate (ESR) | + + + + | Pending order | | SPEP with JESÚS if indicated | + + + + | Pending order | | B-12 - Folate | + + + + | Pending order | | Platelet Function Assay | + + + + | Pending order | | MRA Head-WO Con | + + + + | Pending order | | MR Head-WO Con | + + + + | Pending order | | Urinalysis | + + + + | Pending order | | D-dimer (tyrese) | + + + + | Pending order | | CT Head-WWO Con | + + + + | Pending order | | Vit D, 25 hydroxy | + + + + | Pending order | | TSH | + + + + | Pending order | | B-12 - Folate | + + + + | Pending order | | CMP (Comprehensive | | | | Metabolic Panel) | + + + + | Pending order | | CBC w/ Diff - w/ platelets | + + + + | Pending order | | HgbA1C | + + + + | Pending order | | TSH | + + + + | Pending order | | Vit D, 25 hydroxy | + + + + Procedures + + + + + | Code | Procedure Name | Date | Entry Date | + + + + + | CPT-19929 | Glucose by monitor | | | + + + + + | CPT-23393 | UA Dipstick | | | + + + + + | CPT-50091 | UA Dipstick | | | + + + + + | CPT-10704 | Initial Psych | | | | | Evaluation | | | + + + + + | CPT-43371 | Debride Nail, 6 or | | | | | more [address] | | | + + + + + | CPT-1036F | Current Non tabacco | | | | | User | | | + + + + + | CPT-G8417 | BMI Above Normal, | | | | | Documented Follow | | | | | Up Plan | | | + + + + + | CPT-G9226 | Foot Examination | | | | | Performed | | | + + + + + | CPT-65724 | Trim Skin Lesions | | | | | [address] | | | + + + + + | CPT-89680 | UA Dipstick | | | + + + + + | CPT-24641 | Pawel Leos or | | | | | more [address] | | | + + + + + | CPT-1036F | Current Non tabacco | | | | | User | | | + + + + + | CPT-G8417 | BMI Above Normal, | | | | | Documented Follow | | | | | Up Plan | | | + + + + + | CPT-G9226 | Foot Examination | | | | | Performed | | | + + + + + | CPT-01879 | [facility], 6 or | | | | | more [address] | | | + + + + + | CPT-1036F | Current Non tabacco | | | | | User | | | + + + + + | CPT-G8417 | BMI Above Normal, | | | | | Documented Follow | | | | | Up Plan | | | + + + + + | CPT-G9226 | Foot Examination | | | | | Performed | | | + + + + + | CPT-G8427 | Current Medications | | | | | Documented | | | + + + + + | CPT-G8427 | Current Medications | | | | | Documented | | | + + + + + | CPT-52174 | MRA Head-WWO Con | | | + + + + + +---+ + | | Order excluded from report: | +---+ + + + + + + | CPT-11634 | Physical Therapy | | | | | Evaluation | | | + + + + + | [id number] | [facility] Generic Patient | | | | | Encounter Service | | | | | (from patch) | | | + + + + + | [id number] | [Recorded for [facility]] | | | | | Documentation of | | | | | current medications | | | | | (procedure) | | | + + + + + | [id number] | [Recorded for [facility]] | | | | | Documentation of | | | | | current medications | | | | | (procedure) | | | + + + + + | [id number] | [Recorded for [facility]] | | | | | Documentation of | | | | | current medications | | | | | (procedure) | | | + + + + + | [id number] | [Recorded for [facility]] | | | | | Documentation of | | | | | current medications | | | | | (procedure) | | | + + + + + | FREE T4 48810 | T4 Free | | | + + + + + | T3 FREE 34795 | T3 Free | | | + + + + + | TSH 40648 | TSH | | | + + + + + | GLYCO HGB 25327 | HgbA1C | | | + + + + + | [id number] | [facility] Generic Patient | | | | | Encounter Service | | | | | (from patch) | | | + + + + + | [id number] | [Recorded for [facility]] | | | | | Documentation of | | | | | current medications | | | | | (procedure) | | | + + + + + | [id number] | [facility] Generic Patient | | | | | Encounter Service | | | | | (from patch) | | | + + + + + | CPT-37724 | EKG- tracing with | | | | | report (55787) | | | + + + + + | [id number] | [Recorded for [facility]] | | | | | Documentation of | | | | | current medications | | | | | (procedure) | | | + + + + + | [id number] | [facility] Generic Patient | | | | | Encounter Service | | | | | (from patch) | | | + + + + + | CPT-Troponin l | Troponin I | | | | 19411 | | | | + + + + + | [id number] | [Recorded for [facility]] | | | | | Documentation of | | | | | current medications | | | | | (procedure) | | | + + + + + | CPT-77705 | Physical Therapy | | | | | Evaluation | | | + + + + + | CPT-G8427 | Current Medications | | | | | Documented | | | + + + + + | [id number] | [Recorded for CQM] | | | | | Documentation of | | | | | current medications | | | | | (procedure) | | | + + + + + | CPT-G8427 | Current Medications | | | | | Documented | | | + + + + + | [id number] | [Recorded for CQM] | | | | | Documentation of | | | | | current medications | | | | | (procedure) | | | + + + + + | CPT-G0008 | Admin of Flu Vac | | | | | (Mdc/Atrio) | | | + + + + + | GFR | Glomerular | | | | | Filtration Rate | | | + + + + + | CHEM PROF 99811 | CMP (Comprehensive | | | | | Metabolic Panel) | | | + + + + + | GLYCO HGB 10765 | HgbA1C | | | + + + + + | CPT-Q2037 | Fluvirin | | | | | (Influenza) | | | | | Med/Atrio | | | + + + + + | RISK 27961 | Lipid Profile | | | + + + + + | VIT D HYDR 92783 | Vit D, 25 hydroxy | | | + + + + + | CYC CITRU 38469 | Cyclic | | | | | Citrullinated Pept | | | | | IgG | | | + + + + + | RA QUANT 24510 | Rheumatoid Factor | | | | | (quant) | | | + + + + + | TSH 67733 | TSH | | | + + + + + | IVANA 57900 | IVANA | | | + + + + + | GLYCO HGB 68677 | HgbA1C | | | + + + + + | CPT-68954 | EKG- tracing with | | | | | report (02293) | | | + + + + + | CPT-33337 | ANDRE | | | + + + + + | 68836 03892 | Holter Monitor 48H | | | | | Panel | | | + + + + + | 85116 23070 | Holter Monitor 72H | | | | | Panel | | | + + + + + | CPT-86331 | Barium Swallow MBS | | | | | with Speech | | | + + + + + | 76862 21168 | US Abdomen-Cmplt | | | | | and Pelvic-Lmtd | | | + + + + + | CPT-24083 | US Soft Tissue | | | | | Head/Neck Exam | | | + + + + + | CPT-47808 | Motor nerve testing | | | | | - each nerve | | | + + + + + | RISK 93063 | Lipid Profile | | | + + + + + | ESR 53289 | Sedimentation Rate | | | | | (ESR) | | | + + + + + | SPEP IF 49743 | SPEP with JESÚS if | | | | | indicated | | | + + + + + | B12+FOLATE MULTIPLE | B-12 - Folate | | | + + + + + | PFA 92339 | Platelet Function | | | | | Assay | | | + + + + + | 09804 | MRA Head-WO Con | | | + + + + + | 44024 | MR Head-WO Con | | | + + + + + | CPT-25075 | VL Carotid-Cerebral | | | | | Duplex | | | + + + + + | CPT-57590 | Holter Monitor | | | + + + + + | D DIMER 65448 | D-dimer (tyrese) | | | + + + + + | 13580 | CT Head-WWO Con | | | + + + + + | VIT D HYDR 99581 | Vit D, 25 hydroxy | | | + + + + + | TSH 57994 | TSH | | | + + + + + | B12+FOLATE MULTIPLE | B-12 - Folate | | | + + + + + | UA 02496 | Urinalysis | | | + + + + + | CHEM PROF 45672 | CMP (Comprehensive | | | | | Metabolic Panel) | | | + + + + + | CBC 41673 | CBC w/ Diff - w/ | | | | | platelets | | | + + + + + | GLYCO HGB 87999 | HgbA1C | | | + + + + + | TSH 98415 | TSH | | | + + + + + | VIT D HYDR 52912 | Vit D, 25 hydroxy | | | + + + + + Vital Signs + + +-------+---------+ + | Date | Name | Value | Unit | Description | + + +-------+---------+ + | | BMI (Body Mass | 32.24 | kg/m2 | Body Mass Index | | | Index) | | | [Ratio] | + + +-------+---------+ + | | BP Diastolic | 80 | mm[Hg] | blood pressure, | | | | | | diastolic, | | | | | | second | | | | | | observation | + + +-------+---------+ + | | BP Diastolic | 80 | mm[Hg] | blood pressure, | | | | | | diastolic - | | | | | | 8462-4 | + + +-------+---------+ + | | BP Systolic | 148 | mm[Hg] | blood pressure, | | | | | | systolic - | | | | | | 8480-6 | + + +-------+---------+ + | | BP Systolic | 148 | mm[Hg] | blood pressure, | | | | | | systolic, | | | | | | second | | | | | | observation | + + +-------+---------+ + | | Body | 97.2 | [degF] | temperature E&M | | | Temperature | | | | + + +-------+---------+ + | | Heart Rate | 82 | /min | pulse rate E&M | | | | | | - 8867-4 | + + +-------+---------+ + | | Height | 61 | [in_us] | height E&M - | | | | | | 8302-2 | + + +-------+---------+ + | | O2 % BldC | 98 | % | oxygen | | | Oximetry | | | saturation, | | | | | | oximetry | + + +-------+---------+ + | | Respiratory | 20 | /min | respiratory | | | Rate | | | rate E&M - | | | | | | 9279-1 | + + +-------+---------+ + | | Weight Measured | 170 | [lb_av] | weight E&M - | | | | | | 3141-9 | + + +-------+---------+ + | | BP Diastolic | 82 | mm[Hg] | blood pressure, | | | | | | diastolic, | | | | | | third | | | | | | observation | + + +-------+---------+ + | | BP Systolic | 141 | mm[Hg] | blood pressure, | | | | | | systolic, | | | | | | third | | | | | | observation | + + +-------+---------+ + | | BSA (Body | 1.84 | | body surface | | | Surface Area) | | | area | + + +-------+---------+ + | | BP Diastolic | 79 | mm[Hg] | blood pressure, | | | | | | diastolic, | | | | | | left arm | + + +-------+---------+ + | | BP Diastolic | 82 | mm[Hg] | blood pressure, | | | | | | diastolic, | | | | | | right arm | + + +-------+---------+ + | | BP Systolic | 118 | mm[Hg] | blood pressure, | | | | | | systolic, left | | | | | | arm | + + +-------+---------+ + | | BP Systolic | 123 | mm[Hg] | blood pressure, | | | | | | systolic, | | | | | | right arm | + + +-------+---------+ + Social History [...] + + + +-------+ + | Alcohol intake | ETOH USE | never | | [...] + + + +-------+ + | Alcohol intake | ETOH USE | previous | | | + + + +-------+ + | Alcohol intake | ALCOHOL COMM | seldom | | | + + + +-------+ + | Alcohol intake | ETOH USE | current | | | + + + +-------+ + | Alcohol intake | ETOH USE | never | | | + + + +-------+ + | Details of drug | DRUG USE | never | | | | misuse | | | | | | behavior | | | | | + + + +-------+ + | Health-related | HIV RSK EVAL | No | | | | behavior | | | | | + + + +-------+ + | Never smoker | SMOK STATUS | never smoker | | | + + + +-------+ +
--- OUTSIDE RECORDS SUMMARY | ~2019-03-25 | XMS | Continuity of Care Document ---
Demographics + + + | Address | [address] | | | [place] [address] | + + + | Home Phone | | + + + | Preferred Language | Unknown | + + + | Marital Status | Unknown | + + + | Episcopalian Affiliation | Unknown | + + + | Race | Unknown | + + + | Ethnic Group | Unknown | + + + Author + + + | Author | [facility] | + + + | Organization | [facility] | + + + | Address | [address] | | | [place] [address] | + + + | Phone | | + + + Support + + + + + | Name | Relationship | Address | Phone | + + + + + | EVAN Florez | Caregiver | [facility] | | | [place] | | Medical | | | | | [place] | | | | | [address] | | + + + + + | Franck Palacio MD | Caregiver | ER | | | | | [place] [address] | | + + + + + | DOLORES DIANA | [facility] | [address] | | | | | [place] [address] | | + + + + + Care Team Providers + + + + | Care Hair Baler Name | Role | Phone | + + + + | EVAN Florez | aTlita | | + + + + Insurance Providers + + + + + | Payer Name | Policy Number | Subscriber Name | Relationship | + + + + + | [employer] | [id number] | JULI DIANA | SELF | | PLAN | | | | + + + + + | [employer] | [id number] | JULI DIANA | SELF | | PPO | | | | + + + + + Chief Complaint and Reason for Visit + + + | Reason for Visit | HIGH BLOOD SUGAR | + + + Problems Active Medical Problems + + + +--------+ | Problem | Onset Date | Recorded Date | Status | + + + +--------+ | Neurological | Unknown | 06/07/14 | Active | | symptoms | | | | + + + +--------+ | Vertigo | Unknown | 07/25/14 | Active | + + + +--------+ | Pyelonephritis | Unknown | 09/14/14 | Active | + + + +--------+ | Constipation | Unknown | 09/19/14 | Active | + + + +--------+ | SOB (shortness of | Unknown | 04/21/15 | Active | | breath) | | | | + + + +--------+ | ARF (acute renal | Unknown | 04/21/15 | Active | | failure) | | | | + + + +--------+ | Acute worsening of | Unknown | 04/22/15 | Active | | stage 3 chronic | | | | | kidney disease | | | | + + + +--------+ | 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, unspecified | | | | + + + +--------+ | Prophylactic use of | Unknown | 04/22/15 | Active | | low molecular | | | | | weight heparin for | | | | | venous | | | | | thromboembolism | | | | + + + +--------+ | GI bleed | Unknown | 04/30/15 | Active | + + + +--------+ | Nausea & vomiting | Unknown | 05/08/15 | Active | + + + +--------+ | Pain due to dental | Unknown | 05/08/15 | Active | | caries | | | | + + + +--------+ | Dizziness | Unknown | 09/09/15 | Active | + + + +--------+ | Dehydration | Unknown | 09/09/15 | Active | + + + +--------+ | UTI (urinary tract | Unknown | 07/11/16 | Active | | infection) | | | | + + + +--------+ | Vomiting | Unknown | 07/16/16 | Active | + + + +--------+ | Altered mental | Unknown | 07/21/16 | Active | | state | | | | + + + +--------+ | Weakness | Unknown | 07/29/16 | Active | + + + +--------+ | Chronic renal | Unknown | 07/29/16 | Active | | disease | | | | + + + +--------+ | Hyperglycemia | Unknown | 10/08/16 | Active | + + + +--------+ | Diabetes mellitus | Unknown | 10/08/16 | Active | + + + +--------+ Medications Current Home Medications + + +-------+ + + + +--------+ | Medicati | Dose | Units | Route | Directio | Days/Qty | Instruct | Start | | on | | | | ns | | ions | Date | + + +-------+ + + + +--------+ | Atorvast | 1 | TAB | ORAL | Daily | 30 | | | | atin | | | | | | | | | (Lipitor | | | | | | | | | ) 20 MG | | | | | | | | | TAB | | | | | | | | + + +-------+ + + + +--------+ | BIOTIN 1 | 1 | MG | ORAL | | | | | | MG | | | | | | | | | CAPSULE | | | | | | | | + + +-------+ + + + +--------+ | Cholecal | 1,000 | UNIT | | | | | | | ciferol | | | | | | | | | (VITAMIN | | | | | | | | | D3) | | | | | | | | | 1,000 | | | | | | | | | UNIT | | | | | | | | | TABLET | | | | | | | | + + +-------+ + + + +--------+ | Clopidog | 75 | MG | ORAL | Daily | | | | | rel | | | | | | | | | Bisulfat | | | | | | | | | e | | | | | | | | | (Plavix) | | | | | | | | | 75 MG | | | | | | | | | TABLET | | | | | | | | + + +-------+ + + + +--------+ | Furosemi | 80 | MG | ORAL | Daily | | | | | de | | | | | | | | | (Lasix) | | | | | | | | | 80 MG | | | | | | | | | TAB | | | | | | | | + + +-------+ + + + +--------+ | INSULIN | | | | | | MEDIUM | | | LISPRO | | | | | | SLIDING | | | (HUMALOG | | | | | | SCALE | | | ) 100 | | | | | | | | | UNIT/1 | | | | | | | | | ML VIAL | | | | | | | | + + +-------+ + + + +--------+ | Insulin | 300 | UNIT | Subcutan | | | | | | Glargine | | | eously | | | | | | ,Hum.rec | | | | | | | | | .anlog | | | | | | | | | (Basagla | | | | | | | | | r | | | | | | | | | Kwikpen | | | | | | | | | U-100) | | | | | | | | | 100 | | | | | | | | | UNIT/1 | | | | | | | | | ML | | | | | | | | | INSULN.P | | | | | | | | | EN | | | | | | | | + + +-------+ + + + +--------+ | Potassiu | 10 | MEQ | ORAL | | | 2-3 TABS | | | m | | | | | | EVERY | | | Chloride | | | | | | WEEK | | | 10 MEQ | | | | | | | | | CAPCR | | | | | | | | + + +-------+ + + + +--------+ | Pregabal | Unknown | | | | | | | | in | Dose | | | | | | | | (Lyrica) | | | | | | | | | | | | | | | | | | (Unknown | | | | | | | | | | | | | | | | | | Strength | | | | | | | | | ) CAP | | | | | | | | + + +-------+ + + + +--------+ | Valsarta | 160 | MG | ORAL | Daily | | | | | n | | | | | | | | | (Diovan) | | | | | | | | | 160 MG | | | | | | | | | TABLET | | | | | | | | + + +-------+ + + + +--------+ Past Home Medications + + + + + | Medication | Directions | Ordered | Status | + + + + + | Albuterol (Ventolin | Every 4 Hours as | 05/30/13 | Discontinued | | Hfa) 90 Mcg Inh | Needed as needed | | | | Inh, 2 Puff | for Difficulty | | | | Inhalation | Breathing | | | + + + + + | Amoxicillin | | Unknown | Discontinued | | (Unknown Strength) | | | | | Cap Cap, Unknown | | | | | Dose | | | | + + + + + | Aspirin 325 Mg Tab | | Unknown | Discontinued | | Tab, | | | | + + + + + | Aspirin 81 Mg Tabec | Daily | Unknown | Discontinued | | Tabec, 325 Mg Oral | | | | + + + + + | Biotin (Unknown | | Unknown | Discontinued | | Strength) Capsule | | | | | Capsule, Unknown | | | | | Dose | | | | + + + + + | Biotin 5 Mg Capsule | Daily | Unknown | Discontinued | | Capsule, 5 Mg Oral | | | | + + + + + | Cilostazol 100 Mg | Twice Each Day | Unknown | Discontinued | | Tablet Tablet, 100 | | | | | Mg Oral | | | | + + + + + | Ciprofloxacin Hcl | Twice Each Day for | 07/11/16 | Discontinued | | (Cipro) 250 Mg | infection | | | | Tablet Tablet, 250 | | | | | Mg Oral | | | | + + + + + | Cefpodoxime | Twice Each Day | 07/16/16 | Discontinued | | Proxetil (Vantin) | | | | | 200 Mg Tab Tab, 200 | | | | | Mg Oral | | | | + + + + + | Cephalexin | Four Times a Day | 09/14/14 | Discontinued | | Monohydrate | | | | | (Keflex) 500 Mg Cap | | | | | Cap, 500 Mg Oral | | | | + + + + + | Ciprofloxacin | Twice Each Day | Unknown | Discontinued | | (Cipro) 250 Mg Tab | | | | | Tab, 250 Mg Oral | | | | + + + + + | Ciprofloxacin | Twice Each Day | 06/28/13 | Discontinued | | (Cipro) 500 Mg Tab | | | | | Tab, 1 Tab Oral | | | | + + + + + | Clindamycin Hcl | Every 6 Hours for | 05/08/15 | Discontinued | | (Cleocin Hcl) 300 | infection | | | | Mg Capsule Capsule, | | | | | 300 Mg Oral | | | | + + + + + | Clindamycin Hcl | Q6H | Unknown | Discontinued | | (Cleocin) 300 Mg | | | | | Cap Cap, 300 Mg | | | | | Oral | | | | + + + + + | Clindamycin Hcl | | Unknown | Discontinued | | (Cleocin) 300 Mg | | | | | Cap Cap, 300 Mg | | | | | Oral | | | | + + + + + | Clonazepam | as needed for | Unknown | Discontinued | | (Klonopin) 0.5 Mg | ANXIETY | | | | Tab Tab, 0.5 Mg | | | | | Oral | | | | + + + + + | Clonazepam | | Unknown | Discontinued | | (Klonopin) 0.5 Mg | | | | | Tab Tab, 0.5 Mg | | | | | Oral | | | | + + + + + | Clopidogrel | Daily | Unknown | Discontinued | | Bisulfate (Plavix) | | | | | 75 Mg Tab Tab, 75 | | | | | Mg Oral | | | | + + + + + | Dipyridamole/Aspiri | Twice Each Day | Unknown | Discontinued | | n (Aggrenox) 200 | | | | | Mg/25 Mg Capcr | | | | | Capcr, 1 Cap Oral | | | | + + + + + | Docusate Sodium | Twice Each Day | Unknown | Discontinued | | (Colace) 100 Mg Cap | | | | | Cap, 200 Mg Oral | | | | + + + + + | Exenatide (Byetta) | Twice Each Day | Unknown | Discontinued | | 600 Mcg/2.4 Ml | | | | | Pensyr Pensyr, 5 | | | | | Mcg Subcutaneously | | | | + + + + + | Furosemide (Lasix) | Daily | Unknown | Discontinued | | 40 Mg Tab Tab, 40 | | | | | Mg Oral | | | | + + + + + | Gabapentin | At Bedtime | Unknown | Discontinued | | (Neurontin) 100 Mg | | | | | Cap Cap, 300 Mg | | | | | Oral | | | | + + + + + | Gabapentin | Twice each day | Unknown | Discontinued | | (Neurontin) 300 Mg | before meals | | | | Cap Cap, 2 Cap Oral | | | | + + + + + | Gabapentin | At Bedtime | Unknown | Discontinued | | (Neurontin) 300 Mg | | | | | Cap Cap, 3 Cap Oral | | | | + + + + + | Glipizide | | Unknown | Discontinued | | (Glucotrol Xl) 5 Mg | | | | | Tabcr Tabcr, 5 Mg | | | | | Oral | | | | + + + + + | Insulin | Once a day in the | Unknown | Discontinued | | Glargine,Hum.rec.an | morning | | | | log (Lantus | | | | | Solostar) 100 | | | | | Unit/Ml Insuln.pen | | | | | Insuln.pen, 50 | | | | | UnitSubcutaneously | | | | + + + + + | Insulin | Daily | Unknown | Discontinued | | Glargine,Hum.rec.an | | | | | log (Lantus) 100 | | | | | Unit/Ml Vial Vial, | | | | | 56 Units | | | | | Subcutaneously | | | | + + + + + | Insulin Human | As Directed | Unknown | Discontinued | | Lispro (Humalog) | | | | | 100 Unit/Ml Inj | | | | | Inj, Units | | | | | Subcutaneously | | | | + + + + + | Liraglutide | Before Dinner | Unknown | Discontinued | | (Victoza 2-Hira) 0.6 | | | | | Mg/0.1 Ml | | | | | Pen.injctr | | | | | Pen.injctr, 0 Mg | | | | | Subcutaneously | | | | + + + + + | Lisinopril | Daily | Unknown | Discontinued | | (Zestril) 5 Mg Tab | | | | | Tab, 1 Tab Oral | | | | + + + + + | Meclizine Hcl | Every 6 Hours as | 12/06/15 | Discontinued | | (Antivert) 25 Mg | needed for | | | | Tablet Tablet, 25 | Dizziness | | | | Mg Oral | | | | + + + + + | Meclizine Hcl | Every 6 Hours for | 09/09/15 | Discontinued | | (Antivert) 25 Mg | vertigo | | | | Tablet Tablet, 25 | | | | | Mg Oral | | | | + + + + + | Meclizine Hcl | Every 6 Hours as | Unknown | Discontinued | | (Antivert) 25 Mg | Needed as needed | | | | Tablet Tablet, 25 | for DIZZINESS | | | | Mg Oral | | | | + + + + + | Meclizine Hcl | Every 6 Hours for | 07/25/14 | Discontinued | | (Antivert) 25 Mg | Dizziness | | | | Tablet Tablet, 25 | | | | | Mg Oral | | | | + + + + + | Meclizine Hcl | Every 6 Hours for | 10/21/13 | Discontinued | | (Antivert) 25 Mg | Dizziness | | | | Tablet Tablet, 25 | | | | | Mg Oral | | | | + + + + + | Meclizine Hcl | Q8H for dizziness | 07/29/16 | Discontinued | | (Motion Sickness) | | | | | 25 Mg Tablet | | | | | Tablet, 25 Mg Oral | | | | + + + + + | Meclizine Hcl | Four Times a Day as | Unknown | Discontinued | | (Antivert) 25 Mg | Needed | | | | Tab Tab, 25 Mg Oral | | | | + + + + + | Metformin | Daily | Unknown | Discontinued | | (Glucophage) | | | | | (Unknown Strength) | | | | | Tab Tab, 500 Mg | | | | | Oral | | | | + + + + + | Metformin | Twice Each Day | Unknown | Discontinued | | (Glucophage) 500 Mg | | | | | Tab Tab, 2 Tab | | | | | Oral | | | | + + + + + | Metformin Hcl | Twice Each Day | Unknown | Discontinued | | (Glucophage Xr) 500 | | | | | Mg Tabcr Tabcr, | | | | | 500 Mg Oral | | | | + + + + + | [place], Disposable | | Unknown | Discontinued | | (B-D | | | | | Precisionglide | | | | | Needle) 1 Each | | | | | Dis.needle | | | | | Dis.needle, 1 Each | | | | | Miscell | | | | + + + + + | Nitrofurantoin/Nitr | Twice Each Day | 10/27/12 | Discontinued | | ofuran Mac | | | | | (Macrobid) 100 Mg | | | | | Cap Cap, 1 Cap Oral | | | | + + + + + | Nystatin/Triamcin | Two Times A Day As | Unknown | Discontinued | | (Mycolog-Ii Cream) | Needed as needed | | | | 30 Gm Cr Cr, 1 | for Fungal | | | | Applic Topical | Infection | | | + + + + + | Ondansetron | Every 6 Hours as | 05/08/15 | Discontinued | | (Zofran) 4 Mg | Needed as needed | | | | Tablet Tablet, 4 Mg | for NAUSEA AND | | | | Oral | VOMITING. | | | + + + + + | Omeprazole | Daily | Unknown | Discontinued | | (Prilosec) 40 Mg | | | | | Capsule.dr | | | | | Capsule.dr, 40 Mg | | | | | Oral | | | | + + + + + | Ondansetron (Zofran | Every 8 Hours as | 07/16/16 | Discontinued | | Odt) 4 Mg | needed for Nausea | | | | Tabdaquan | | | | | Tabdaquan, 1 Tab | | | | | Sublingual | | | | + + + + + | Ondansetron (Zofran | Every 6 Hours as | 09/09/15 | Discontinued | | Odt) 4 Mg | needed for Nausea | | | | Tab.elizabeth | | | | | Tab.elizabeth, 1 Tab | | | | | Sublingual | | | | + + + + + | Ondansetron (Zofran | Every 8 Hours as | 09/14/14 | Discontinued | | Odt) 8 Mg | Needed as needed | | | | Tab.elizabeth | for NAUSEA | | | | Tab.elizabeth, 1 Tab | | | | | Sublingual | | | | + + + + + | Ondansetron Hcl | Every 4 Hours as | Unknown | Discontinued | | (Zofran Tab) 4 Mg | Needed as needed | | | | Tab Tab, 4 Mg Oral | for Nausea & | | | | | Vomiting | | | + + + + + | Oxycodone | Every 6 Hours as | 05/08/15 | Discontinued | | Hcl/Acetaminophen | Needed as needed | | | | (Percocet 5-325 Mg | for PAIN | | | | Tablet) 1 Each | | | | | Tablet Tablet, | | | | | 0.5-1 Tab Oral | | | | + + + + + | Oxycodone | Every 6 Hours as | 09/14/14 | Discontinued | | Hcl/Acetaminophen | Needed as needed | | | | (Percocet 5-325 Mg | for PAIN | | | | Tablet) 1 Each | | | | | Tablet Tablet, 1-2 | | | | | Tab Oral | | | | + + + + + | Potassium Chloride | Daily | Unknown | Discontinued | | 10 Meq Capsule.er | | | | | Capsule.er, 10 Meq | | | | | Oral | | | | + + + + + | Pioglitazone Hcl | | Unknown | Discontinued | | (Actos) 15 Mg Tab | | | | | Tab, 15 Mg Oral | | | | + + + + + | Pregabalin (Lyrica) | Three Times a Day | Unknown | Discontinued | | 100 Mg Cap Cap, | | | | | 100 Mg Oral | | | | + + + + + | Pregabalin (Lyrica) | At Bedtime | Unknown | Discontinued | | 25 Mg Cap Cap, 25 | | | | | Mg Oral | | | | + + + + + | Pregabalin (Lyrica) | Three Times a Day | Unknown | Discontinued | | 50 Mg Cap Cap, 50 | | | | | Mg Oral | | | | + + + + + | Promethazine Hcl | Q4H as needed for | 09/09/15 | Discontinued | | (Phenergan) 25 Mg | Nausea & Vomiting | | | | Tab Tab, 25 Mg Oral | | | | + + + + + | Sitagliptin | | Unknown | Discontinued | | Phosphate (Januvia) | | | | | 50 Mg Tablet | | | | | Tablet, 50 Mg Oral | | | | + + + + + | Tramadol Hcl | | Unknown | Discontinued | | (Ultram) (Unknown | | | | | Strength) Tab Tab, | | | | | Unknown Dose | | | | + + + + + | Valsartan (Diovan) | At Bedtime | Unknown | Discontinued | | 320 Mg Tablet | | | | | Tablet, 320 Mg Oral | | | | + + + + + | Valsartan (Diovan) | Daily | Unknown | Discontinued | | 80 Mg Tab Tab, 1 | | | | | Tab Oral | | | | + + + + + Social History + + + + | Problem | Response | Recorded Date | + + + + | MENTAL HEALTH PROBLEMS/ | No | 08/10/16 | + + + + + + + + + | Query | Response | Start Date | Stop Date | + + + + + | Smoking status/ | Never Smoker | | | + + + + + Hospital Discharge Instructions No hospital discharge instructions. Plan of Care + + + | Discharge Date | 11/06/16 | + + + | Disposition | HOME | + + + | Condition at Discharge | Fair | + + + | Instructions/Education Provided | Hyperglycemia | + + + | Prescriptions | See Medications Section | + + + | Referrals | Christen FlorezP - | + + + Functional Status No functional status results. Allergies, Adverse Reactions, Alerts + +---------+ + +--------+ + | Allergen | Type | Severity | Reaction | Status | Last Updated | + +---------+ + +--------+ + | hydrocodone | Allergy | Mild | HALLUCINATIO | Active | 11/06/16 | | bit | | | NS | | | + +---------+ + +--------+ + | lisinopril | Allergy | Unknown | | Active | 11/06/16 | + +---------+ + +--------+ + | morphine | Allergy | Mild | HALLUCINATIO | Active | 11/06/16 | | | | | N | | | + +---------+ + +--------+ + | ciprofloxaci | Allergy | Unknown | | Active | 11/06/16 | | n | | | | | | + +---------+ + +--------+ + Immunizations No Known History of Immunizations. Vital Signs + + + + | Vital Reading | Collection Date/Time | Result | + + + + | Blood Pressure | 11/06/16 8:28pm | 155/74 | + + + + | Blood Pressure Source | 05/01/15 10:30am | Left Arm | + + + + | Temperature | 11/06/16 8:28pm | 96.8 F | + + + + | Temperature Source | 11/06/16 8:28pm | Temporal | + + + + | Respiratory Rate | 11/06/16 8:28pm | 20 | + + + + | Pulse Rate | 11/06/16 8:28pm | 85 | + + + + | Bedside Pulse Oximetry | 11/06/16 8:28pm | 98 | + + + + | Height | 11/06/16 8:28pm | 5 ft 1 in | + + + + | Height | 11/06/16 8:28pm | 154.94 cm | + + + + | Weight | 11/06/16 8:28pm | 170 lb | + + + + | Weight | 11/06/16 8:28pm | 77.11 kg | + + + + | Body Mass Index | 11/06/16 8:28pm | 32.1 kg/m2 | + + + + Results Laboratory Results + +--------+ +-------+ + + + + | Test | Result | Units | Flags | Referenc | Collecti | Result | Comments | | Name | | | | e | on | Date/Ernesto | | | | | | | | Date/Ernesto | e | | | | | | | | e | | | + +--------+ +-------+ + + + + | POC | 269 | mg/dL | H | 70-99 | 11/06/16 | 11/06/16 | Notified | | Glucose | | | | | 9:50pm | 9:55pm | | | (mg/dL) | | | | | | | [facility] | | | | | | | | | rCAP | + +--------+ +-------+ + + + + | White | 4.77 | K/mm3 | | 4.00-11. | 11/06/16 | 11/06/16 | | | Blood | | | | 30 | 8:50pm | 9:00pm | | | Count | | | | | | | | + +--------+ +-------+ + + + + | Red | 3.68 | M/mm3 | L | 3.80-5.2 | 11/06/16 | 11/06/16 | | | Blood | | | | 0 | 8:50pm | 9:00pm | | | Count | | | | | | | | + +--------+ +-------+ + + + + | Hemoglob | 10.8 | g/dL | L | 11.5-16. | 11/06/16 | 11/06/16 | | | in | | | | 0 | 8:50pm | 9:00pm | | + +--------+ +-------+ + + + + | Hematocr | 32.8 | % | L | 33.0-51. | 11/06/16 | 11/06/16 | | | it | | | | 0 | 8:50pm | 9:00pm | | + +--------+ +-------+ + + + + | Mean | 89 | fL | | 80-100 | 11/06/16 | 11/06/16 | | | Corpuscu | | | | | 8:50pm | 9:00pm | | | lar | | | | | | | | | Volume | | | | | | | | + +--------+ +-------+ + + + + | Mean | 29.3 | pg | | 26.0-34. | 11/06/16 | 11/06/16 | | | Corpuscu | | | | 0 | 8:50pm | 9:00pm | | | lar | | | | | | | | | Hemoglob | | | | | | | | | in | | | | | | | | + +--------+ +-------+ + + + + | Mean | 32.9 | g/dL | | 31.5-36. | 11/06/16 | 11/06/16 | | | Corpuscu | | | | 5 | 8:50pm | 9:00pm | | | lar | | | | | | | | | Hemoglob | | | | | | | | | in | | | | | | | | | Concent | | | | | | | | + +--------+ +-------+ + + + + | RDW | 44.2 | fL | | 35.1-46. | 11/06/16 | 11/06/16 | | | Standard | | | | 3 | 8:50pm | 9:00pm | | | | | | | | | | | | Deviatio | | | | | | | | | n | | | | | | | | + +--------+ +-------+ + + + + | RDW | 14.1 | % | | 11.7-14. | 11/06/16 | 11/06/16 | | | Coeffici | | | | 2 | 8:50pm | 9:00pm | | | ent of | | | | | | | | | Variatio | | | | | | | | | n | | | | | | | | + +--------+ +-------+ + + + + | Platelet | 166 | K/mm3 | | 150-400 | 11/06/16 | 11/06/16 | | | Count | | | | | 8:50pm | 9:00pm | | + +--------+ +-------+ + + + + | Mean | 11.5 | fL | | 9.1-12.4 | 11/06/16 | 11/06/16 | | | Platelet | | | | | 8:50pm | 9:00pm | | | Volume | | | | | | | | + +--------+ +-------+ + + + + | Differen | Auto | | | | 11/06/16 | 11/06/16 | | | tial | | | | | 8:50pm | 9:00pm | | | Method | | | | | | | | + +--------+ +-------+ + + + + | Neutroph | 56 | % | | 41-73 | 11/06/16 | 11/06/16 | | | ils (%) | | | | | 8:50pm | 9:00pm | | | (Auto) | | | | | | | | + +--------+ +-------+ + + + + | Lymphocy | 32 | % | | 21-46 | 11/06/16 | 11/06/16 | | | serge (%) | | | | | 8:50pm | 9:00pm | | | (Auto) | | | | | | | | + +--------+ +-------+ + + + + | Monocyte | 7 | % | | 4-13 | 11/06/16 | 11/06/16 | | | s (%) | | | | | 8:50pm | 9:00pm | | | (Auto) | | | | | | | | + +--------+ +-------+ + + + + | Eosinoph | 4 | % | | 0-6 | 11/06/16 | 11/06/16 | | | ils (%) | | | | | 8:50pm | 9:00pm | | | (Auto) | | | | | | | | + +--------+ +-------+ + + + + | Basophil | 0 | % | | 0-2 | 11/06/16 | 11/06/16 | | | s (%) | | | | | 8:50pm | 9:00pm | | | (Auto) | | | | | | | | + +--------+ +-------+ + + + + | Immature | 0 | % | | 0-1 | 11/06/16 | 11/06/16 | | | | | | | | 8:50pm | 9:00pm | | | Granuloc | | | | | | | | | yte % | | | | | | | | | (Auto) | | | | | | | | + +--------+ +-------+ + + + + | Nucleate | 0.0 | /100 WBC | | 0.0-0.2 | 11/06/16 | 11/06/16 | | | d Red | | | | | 8:50pm | 9:00pm | | | Blood | | | | | | | | | Cells % | | | | | | | | + +--------+ +-------+ + + + + | Absolute | 2.66 | K/mm3 | | 1.96-9.1 | 11/06/16 | 11/06/16 | | | | | | | 5 | 8:50pm | 9:00pm | | | Neutroph | | | | | | | | | ils | | | | | | | | | (auto) | | | | | | | | + +--------+ +-------+ + + + + | Absolute | 1.54 | K/mm3 | | 0.84-5.2 | 11/06/16 | 11/06/16 | | | | | | | 0 | 8:50pm | 9:00pm | | | Lymphocy | | | | | | | | | serge | | | | | | | | | (auto) | | | | | | | | + +--------+ +-------+ + + + + | Absolute | 0.35 | K/mm3 | | 0.16-1.4 | 11/06/16 | 11/06/16 | | | | | | | 7 | 8:50pm | 9:00pm | | | Monocyte | | | | | | | | | s (auto) | | | | | | | | + +--------+ +-------+ + + + + | Absolute | 0.20 | K/mm3 | | 0.00-0.6 | 11/06/16 | 11/06/16 | | | | | | | 8 | 8:50pm | 9:00pm | | | Eosinoph | | | | | | | | | ils | | | | | | | | | (auto) | | | | | | | | + +--------+ +-------+ + + + + | Absolute | 0.02 | K/mm3 | | 0.00-0.2 | 11/06/16 | 11/06/16 | | | | | | | 3 | 8:50pm | 9:00pm | | | Basophil | | | | | | | | | s (auto) | | | | | | | | + +--------+ +-------+ + + + + | Absolute | 0.00 | K/mm3 | | 0.00-0.1 | 11/06/16 | 11/06/16 | | | | | | | 0 | 8:50pm | 9:00pm | | | Immature | | | | | | | | | | | | | | | | | | Granuloc | | | | | | | | | yte | | | | | | | | | (auto | | | | | | | | + +--------+ +-------+ + + + + | Nucleate | 0.00 | K/mm3 | | 0.00-0.0 | 11/06/16 | 11/06/16 | | | d RBC | | | | 2 | 8:50pm | 9:00pm | | | Absolute | | | | | | | | | Count | | | | | | | | | (auto) | | | | | | | | + +--------+ +-------+ + + + + | Sodium | 137 | mmol/L | | 136-145 | 11/06/16 | 11/06/16 | | | Level | | | | | 8:50pm | 9:15pm | | + +--------+ +-------+ + + + + | [place]ass[place] | 4.1 | mmol/L | | 3.5-5.5 | 11/06/16 | 11/06/16 | | | m Level | | | | | 8:50pm | 9:15pm | | + +--------+ +-------+ + + + + | Chloride | 104 | mmol/L | | 98-108 | 11/06/16 | 11/06/16 | | | Level | | | | | 8:50pm | 9:15pm | | + +--------+ +-------+ + + + + | Carbon | 25 | mmol/L | | 21-32 | 11/06/16 | 11/06/16 | | | Dioxide | | | | | 8:50pm | 9:15pm | | | Level | | | | | | | | + +--------+ +-------+ + + + + | Anion | 8 | mmol/L | | 6-16 | 11/06/16 | 11/06/16 | | | Gap | | | | | 8:50pm | 9:15pm | | + +--------+ +-------+ + + + + | Glucose | 354 | mg/dL | H | 70-99 | 11/06/16 | 11/06/16 | | | Level | | | | | 8:50pm | 9:15pm | | + +--------+ +-------+ + + + + | Blood | 47 | mg/dL | H | 8-24 | 11/06/16 | 11/06/16 | | | Urea | | | | | 8:50pm | 9:15pm | | | Nitrogen | | | | | | | | + +--------+ +-------+ + + + + | Creatini | 1.98 | mg/dL | H | 0.40-1.0 | 11/06/16 | 11/06/16 | | | ne | | | | 0 | 8:50pm | 9:15pm | | + +--------+ +-------+ + + + + | BUN/Crea | 23.7 | % | H | 12.0-20. | 11/06/16 | 11/06/16 | | | tinine | | | | 0 | 8:50pm | 9:15pm | | | Ratio | | | | | | | | + +--------+ +-------+ + + + + | Glomerul | 26 | | L | 60- | 11/06/16 | 11/06/16 | Non-Afri | | ar | | | | | 8:50pm | 9:15pm | can | | Filtrati | | | | | | | [place] | | on Rate | | | | | | | GFR | | Calc | | | | | | | CalcFor | | | | | | | | | | | | | | | | | | [place] | | | | | | | | | s, | | | | | | | | | multiply | | | | | | | | | the | | | | | | | | | calculat | | | | | | | | | ed GFR | | | | | | | | | by | | | | | | | | | 1.21Refe | | | | | | | | | rence | | | | | | | | | Range: | | | | | | | | | Above 60 | | | | | | | | | | | | | | | | | | mL/min/1 | | | | | | | | | .73m^2 | + +--------+ +-------+ + + + + | Calcium | 9.2 | mg/dL | | 8.5-10.1 | 11/06/16 | 11/06/16 | | | Level | | | | | 8:50pm | 9:15pm | | + +--------+ +-------+ + + + + | Troponin | <0.017 | ng/mL | | 0.000-0. | 10/29/16 | 10/29/16 | | | | | | | 040 | 3:10pm | 3:35pm | | + +--------+ +-------+ + + + + | Total | 6.9 | g/dL | | 6.4-8.2 | 10/28/16 | 10/28/16 | | | Protein | | | | | 1:00am | 1:24am | | + +--------+ +-------+ + + + + | Albumin | 3.3 | g/dL | L | 3.4-5.0 | 10/28/16 | 10/28/16 | | | | | | | | 1:00am | 1:24am | | + +--------+ +-------+ + + + + | Globulin | 3.6 | g/dL | | 2.2-4.0 | 10/28/16 | 10/28/16 | | | | | | | | 1:00am | 1:24am | | + +--------+ +-------+ + + + + | Albumin/ | 0.9 | | | 0.8-1.8 | 10/28/16 | 10/28/16 | | | Globulin | | | | | 1:00am | 1:24am | | | Ratio | | | | | | | | + +--------+ +-------+ + + + + | Total | 0.2 | mg/dL | | 0.1-1.0 | 10/28/16 | 10/28/16 | | | Bilirubi | | | | | 1:00am | 1:24am | | | n | | | | | | | | + +--------+ +-------+ + + + + | Alkaline | 168 | U/L | H | 50-136 | 10/28/16 | 10/28/16 | | | | | | | | 1:00am | 1:24am | | | Phosphat | | | | | | | | | ase | | | | | | | | + +--------+ +-------+ + + + + | Aspartat | 44 | U/L | H | 12-37 | 10/28/16 | 10/28/16 | | | e Amino | | | | | 1:00am | 1:24am | | | Transf | | | | | | | | | (AST/SGO | | | | | | | | | T) | | | | | | | | + +--------+ +-------+ + + + + | Alanine | 43 | U/L | | 12-78 | 10/28/16 | 10/28/16 | | | Aminotra | | | | | 1:00am | 1:24am | | | nsferase | | | | | | | | | | | | | | | | | | (ALT/SGP | | | | | | | | | T) | | | | | | | | + +--------+ +-------+ + + + + Procedures No Known History of Procedures. Encounters + + + + + + | Encounter | Location | Arrival/Admit | Discharge/Depar | Attending | | | | Date | t Date | Provider | + + + + + + | Departed | [facility] | 11/06/16 8:23pm | 11/06/16 | Franck Palacio | | Emergency | [facility] | | 10:17pm | MD | + + + + + + | Registered | [facility] | 10/29/16 3:12pm | | Abdiel Titus | | Clinical | [facility] | | | DO | + + + + + + | Registered | [facility] | 10/29/16 3:11pm | | Abdiel Titus | | Referral | [facility] | | | DO | + + + + + + | Departed | [facility] | 10/28/16 0:16am | 10/28/16 3:14am | Corky Kay | | Emergency | [facility] | | | E | + + + + + + + + + | Encounter Diagnosis | Onset Date | + + + | Hyperglycemia | | + + +"
--- OUTSIDE RECORDS SUMMARY | ~2019-03-25 | XMS | Clinical Summary ---
Demographics + + + | Address | [facility] [address] | | | [place] [address] | + + + | Home Phone | | + + + | Preferred Language | Unknown | + + + | Marital Status | D | + + + | Yarsanism Affiliation | Unknown | + + + | Race | White | + + + | Ethnic Group | or | + + + Author + + + | Author | [facility] | + + + | Organization | [facility] | + + + | Address | [address] | | | [place] [address] | + + + | Phone | Unavailable | + + + Care Team Providers + + + + | Care Casino Floorperson Name | Role | Phone | + [...] | | tion | | +---------+---------+---------+---------+---------+---------+---------+---------+---------+ | DIABETE | [id number] | | Active | | Davdi | | Periphe | | | S | 05 | / | | / | Hoyne | | ral | | [...] s | | +---------+---------+---------+---------+---------+---------+---------+---------+---------+ | NAUSEA | [id number] | | Resolve | | Geetha | | Nausea | | | ALONE | 07 | /13 | d | /13 | Patrick | | | | | | (SNOMED | | | | [facility] | | | | | | CT) | | | | | | | | +---------+---------+---------+---------+---------+---------+---------+---------+---------+ | VACCINA | [id number] | | Resolve | | Geetha | | Medicat | | | TION | 02 | /03 | d | /03 | Patrick | | ion | | [...] | | | +---------+---------+---------+---------+---------+---------+---------+---------+---------+ | FLANK | [id number] | | Active | | Geetha | | Flank | | | PAIN | 05 | /01 | | /01 | Patrick | | pain | | | | (SNOMED | | | | [facility] | | | | | | CT) | | | | | | | | +---------+---------+---------+---------+---------+---------+---------+---------+---------+ | VACCINA | [id number] | | Removed | 2018/07 | [facility] | | Medicat | | | TION | 02 | /03 | | /03 | [place] | | ion | | | FOR | (SNOMED | | | | DNP 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 | | given | | | STREP [...] | | | +---------+---------+---------+---------+---------+---------+---------+---------+---------+ | OSTEOAR | [id number] | | Active | | Edna | | Osteoar | | | THRITIS | 07 | /16 | | /18 | Hope | | thritis | | | , KNEE, | (SNOMED | | | | [facility] | | of | | | RIGHT | CT) | | | | | | knee | | +---------+---------+---------+---------+---------+---------+---------+---------+---------+ | CONSTIP | [id number] | | Active | | Ambrose | | Constip | | | ATION | 8 | /13 | | /13 | [place] | | ation | | | | (SNOMED | | | | DNP 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 | | | | | | CT) | | | | | | | | +---------+---------+---------+---------+---------+---------+---------+---------+---------+ | TYPE 2 | E11.21 | | Active | | [facility] | | Type 2 | | | DIABETE | (ICD-10 | / | | / | Ank[place] | | diabete | | | S | -CM) | | | | DNP 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 | | s | | | MELLITU [...] athy | | +---------+---------+---------+---------+---------+---------+---------+---------+---------+ | DIABETE | [id number] | | Inactiv | | [facility] | | Type 2 | | | S | 6 | | e | /08 | [place] | | diabete | | | MELLITU | (SNOMED | | | | DNP 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 | | s | | | S, TYPE | CT) | | | | | | mellitu | | | II, ON | | | | | | | s | | | | | | | | | | | | | INSULIN | | | | | | | | | +---------+---------+---------+---------+---------+---------+---------+---------+---------+ | DEHYDRA | [id number] | 2013/05 | Resolve | | [facility] | | Dehydra | | | TION | 6 | /08 | d | /08 | [place] | | tion | | | | (SNOMED | | | | DNP 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 | | | | | | CT) | | | | | | | | +---------+---------+---------+---------+---------+---------+---------+---------+---------+ | DIZZINE | [id number] | | Inactiv | | [facility] | | Dizzine | | | SS | 03 | /08 | e | /08 | [place] | | ss | | | | (SNOMED | | | | DNP 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 | | | | | | CT) | | | | | | | | +---------+---------+---------+---------+---------+---------+---------+---------+---------+ | ANEMIA | [id number] | | Inactiv | | [facility] | | Anemia | | | | 00 | /10 | e | /10 | [place] | | | | | | (SNOMED | | | | DNP 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 | | | | | | CT) | | | | | | | | +---------+---------+---------+---------+---------+---------+---------+---------+---------+ | CONSTIP | [id number] | | Inactiv | | [facility] | | Constip | | | ATION | 8 | /13 | e | /13 | [place] | | ation | | | | (SNOMED | | | | DNP 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 | | | | | | CT) | | | | | | | | +---------+---------+---------+---------+---------+---------+---------+---------+---------+ | SYNCOPE | [id number] | | Resolve | | [facility] | | Syncope | | | | 07 | | d | / | [place] | | | | | | (SNOMED | | | | DNP 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 | | | | | | CT) | | | | | | | | +---------+---------+---------+---------+---------+---------+---------+---------+---------+ | DYSPHAG | R13.10 | | Resolve | | [facility] | | Dysphag | | | IA | (ICD-10 | / | d | | [place] | | ia, | | | UNSPECI | -CM) | | | | DNP 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 | | unspeci | | | FIED | | | | | | | fied | | +---------+---------+---------+---------+---------+---------+---------+---------+---------+ | PARESTH | [id number] | | Inactiv | | [facility]rose | | Paresth | | | ESIA, | 04 | | e | | [place] | | esia of | | | HANDS | (SNOMED | | | | DNP 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 | | hand | | | | CT) | | | | | | | | +---------+---------+---------+---------+---------+---------+---------+---------+---------+ | DIABETI | [id number] | | Inactiv | | [facility] | | Diabeti | | | C | | | e | | [place] | | c | | | PERIPHE | (SNOMED | | | | DNP 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 | | periphe | | | RAL [...] IA | (ICD-10 | | d | / | Ank[place] | | ia, | | | UNSPECI | -CM) | | | | DNP 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 | | unspeci | | | FIED | | | | | | | fied | | +---------+---------+---------+---------+---------+---------+---------+---------+---------+ | VAGINIT | [id number] | | Resolve | | [facility] | | Vaginit | | | IS | 1 | /31 | d | /31 | [place] | | is | | | | (SNOMED | | | | DNP 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 | | | | | | CT) | | | | | | | | +---------+---------+---------+---------+---------+---------+---------+---------+---------+ | DYSURIA | [id number] | | Resolve | | [facility] | | Dysuria | | | | 1 | /31 | d | /31 | [place] | | | | | | (SNOMED | | | | DNP 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 | | | | | | CT) | | | | | | | | +---------+---------+---------+---------+---------+---------+---------+---------+---------+ | EDEMA | [id number] | | Inactiv | | [facility] | | Edema | | | | 08 | /15 | e | /11 | [place] | | | | | | (SNOMED | | | | DNP 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 | | | | | | CT) | | | | | | | | +---------+---------+---------+---------+---------+---------+---------+---------+---------+ | RENAL | [id number] | | Inactiv | | [facility] | | Acute | | | FAILURE | 1 | / | e | /02 | [place] | | renal | | | , ACUTE | (SNOMED | | | | DNP 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 | | failure | | | | CT) | | | | | | | | | | | | | | | | syndrom | | | | | | | | | | e | | +---------+---------+---------+---------+---------+---------+---------+---------+---------+ | DIABETE | [id number] | | Inactiv | | [facility] | | Periphe | | | S | 02 | / | e | /01 | [place] | | ral | | | MELLITU | (SNOMED | | | | DNP 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 | | circula | | | S, [...] | | | ROPATHY | (ICD-10 | /01 | e | /01 | [place] | | diabete | | | - | -CM) | | | | DNP 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 | | s | | | DIABETI [...] ropathy | | +---------+---------+---------+---------+---------+---------+---------+---------+---------+ | LOCALIZ | [id number] | | Resolve | | [facility] | | Disorde | | | ED | 09 | / | d | /30 | [place] | | r of | | | SWELLIN | (SNOMED | | | | DNP 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 | | forearm | | | G [...] | | | +---------+---------+---------+---------+---------+---------+---------+---------+---------+ | UTI | [id number] | | Resolve | | [facility] | | Urinary | | | | 5 | /13 | d | /13 | [place] | | tract | | | | (SNOMED | | | | DNP 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 | | infecti | | | | CT) | | | | | | ous | | | | | | | | | | disease | | +---------+---------+---------+---------+---------+---------+---------+---------+---------+ | TYPE 2 | E11.21 | | Inactiv | | [facility] | | Type 2 | | | DIABETE | (ICD-10 | | e | | [place] | | diabete | | | S | -CM) | | | | DNP 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 | | s | | | MELLITU [...] athy | | +---------+---------+---------+---------+---------+---------+---------+---------+---------+ | DEMENTI | [id number] | | Inactiv | | [facility] | | Procedu | | | A | 03 | | e | | [place] | | re | | | SCREENI | (SNOMED | | | | DNP 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 | | carried | | | NG | CT) | | | | | | out on | | | | | | | | | | | | | | | | | | | | subject | | +---------+---------+---------+---------+---------+---------+---------+---------+---------+ | CHANGE | [id number] | | Inactiv | | [facility] | | Altered | | | IN | 9 | /13 | e | /13 | [place] | | bowel | | | BOWEL | (SNOMED | | | | DNP 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 | | functio | | | HABITS | CT) | | | | | | n | | +---------+---------+---------+---------+---------+---------+---------+---------+---------+ | MILD | [id number] | | Inactiv | | [facility] | | Mild | | | COGNITI | | | e | | [place] | | cogniti | | | VE | (SNOMED | | | | DNP 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 | | ve | | | IMPAIRM | CT) | | | | | | disorde | | | ENT | | | | | | | r | | +---------+---------+---------+---------+---------+---------+---------+---------+---------+ | DIABETE | [id number] | | Inactiv | | [facility] | | Diabeti | | | S | 362215 | /11 | e | / | [place] | | c | | | MELLITU | (SNOMED | | | | DNP 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 | | periphe | | | S, TYPE | CT) | | | | | | ral | | | II [...] | | s | | +---------+---------+---------+---------+---------+---------+---------+---------+---------+ | IRON | D50.9 | | Active | | Julia | | Iron | | | DEFICIE | (ICD-10 | / | | | Gabriele | | deficie | | | NCY | -) | | | | | | ncy | | | ANEMIA, | | | | | | | anemia, | | | | | | | | | | | | | UNSPECI | | | | | | | unspeci | | | FIED | | | | | | | fied | | +---------+---------+---------+---------+---------+---------+---------+---------+---------+ | DIABETE | [id number] | | Active | | David W | | Diabeti | | | S | 001554 | /15 | | | Thepablo | | c | | | MELLITU [...] | | s | | +---------+---------+---------+---------+---------+---------+---------+---------+---------+ | MUSCLE | [id number] | | Active | | Christen | | Muscle | | | PAIN | 1 | /07 | | /07 | J. | | pain | | | | (SNOMED | | | | [place] | | | | | | CT) | | | | ta 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 | | | | +---------+---------+---------+---------+---------+---------+---------+---------+---------+ | DIABETE | [id number] | | Removed | | David W | | Diabeti | | | S | 566960 | /11 | | / | Theen | | [...] s | | +---------+---------+---------+---------+---------+---------+---------+---------+---------+ | MILD | [id number] | | Removed | | Maulik | | Mild | | | COGNITI | | | | | Mendels | [...] Acquire | | | CTOMY, | | /24 | | /24 | Mendels | | d | | [...] uterus | | +---------+---------+---------+---------+---------+---------+---------+---------+---------+ | COLONIC | 6473662 | | Active | | Emeka | [...] | | | +---------+---------+---------+---------+---------+---------+---------+---------+---------+ | CONSTIP | 1769490 | | Removed | | Emeka | | Constip | | | ATION | 8 | /13 | | /13 | Petre | | ation | | | | (SNOMED | | | | MD | | | | | | CT) | | | | | | | | +---------+---------+---------+---------+---------+---------+---------+---------+---------+ | CHANGE | [id number] | | Removed | | Emeka | | Altered | | | IN | 9 | /13 | | /13 | Petre | | bowel | | | BOWEL | (SNOMED | | | | MD | | functio | | | HABITS | CT) | | | | | | n | | +---------+---------+---------+---------+---------+---------+---------+---------+---------+ | DECREAS | 3231809 | | Active | | Emeka | | Decreas | | | ED | 6 | /13 | | /13 | Petre | | e in | | | APPETIT | (SNOMED | | | | MD | | appetit | | | E | CT) | | | | | | e | | +---------+---------+---------+---------+---------+---------+---------+---------+---------+ | WEIGHT | 3111778 | | Active | | Emeka | | Abnorma | | | LOSS | | | | / | Petre | | l | | | ABNORMA | (SNOMED | | | | MD | | weight | | | L | CT) | | | | | | loss | | +---------+---------+---------+---------+---------+---------+---------+---------+---------+ | NAUSEA | 3857468 | | Removed | | Emeka | | Nausea | | | ALONE | 07 | / | | /13 | Petre | | | | | | (SNOMED | | | | MD | | | | | | CT) | | | | | | | | +---------+---------+---------+---------+---------+---------+---------+---------+---------+ | RECTAL | [id number] | | Active | | Emeka | | Rectal | | | BLEEDIN | 2 | /13 | | /13 | Petre | | hemorrh | | | G | (SNOMED | | | | MD | | age | | | | CT) | | | | | | | | +---------+---------+---------+---------+---------+---------+---------+---------+---------+ | DEMENTI | 4705092 | | Active | | Christen | | Dementi | | | A | 6 | /10 | | /10 | J. | | a | | | WITHOUT | (SNOMED | | | | [place] | | | | | | CT) | | | | ta 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 | | | | | BEHAVIO | | | | | | | | | | RAL | | | | | | | | | | DISTURB | | | | | | | | | | ANCE | | | | | | | | | +---------+---------+---------+---------+---------+---------+---------+---------+---------+ | CHRONIC | 1646605 | | Active | | Christen | | Chronic | | | | 03 | /10 | | /10 | J. | | | | | PROGRES | (SNOMED | | | | [place] | | progres | | | SIVE | CT) | | | | ta 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 | | sive | | | RENAL | | | | | | | renal | | | FAILURE | | | | | | | failure | | +---------+---------+---------+---------+---------+---------+---------+---------+---------+ | ANEMIA | [id number] | | Removed | | Christen | | Anemia | | | | 00 | / | | / | J. | | | | | | (SNOMED | | | | [place] | | | | | | CT) | | | | ta 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 | | | | +---------+---------+---------+---------+---------+---------+---------+---------+---------+ | DEMENTI | [id number] | | Removed | | Christen | | Procedu | | | A | 03 | / | | / | J. | | re | | | SCREENI | (SNOMED | | | | [place] | | carried | | | NG | CT) | | | | ta 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 | | out on | | | | | | | | | | | | | | | | | | | | subject | | +---------+---------+---------+---------+---------+---------+---------+---------+---------+ | FALL | 6137916 | | Active | | Christen | | At risk | | | RISK | 07 | /21 | | /22 | J. | | for | | | | (SNOMED | | | | [place] | | falls | | | | CT) | | | | ta 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 | | | | +---------+---------+---------+---------+---------+---------+---------+---------+---------+ | DIABETE | 6206158 | | Resolve | | Christen | | Diabeti | | | S | 082271 | /14 | d | /15 | J. | | c | | | MELLITU | (SNOMED | | | | [place] | | periphe | | | S, TYPE | CT) | | | | ta 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 | | ral | | | II [...] s | | +---------+---------+---------+---------+---------+---------+---------+---------+---------+ | CORNS | [id number] | | Inactiv | | Kali | | Corns | | | AND | 00 | / | e | / | Palacio | | and | | | CALLOSI | (SNOMED | | | | DPM | | callus | | | TIES | CT) | | | | | | | | +---------+---------+---------+---------+---------+---------+---------+---------+---------+ | HAMMER | [id number] | | Active | | Kali | | Kareem | | | TOE, | | | | | Hakeem | | toe | | | OTHER, | (SNOMED | | | | DPM | | | | | ACQUIRE | CT) | | | | | | | | | D | | | | | | | | | +---------+---------+---------+---------+---------+---------+---------+---------+---------+ | HALLUX | 4732035 | | Active | | Kali | [...] ropathy | | +---------+---------+---------+---------+---------+---------+---------+---------+---------+ | DIABETE | [id number] | | Removed | | Kali | | Periphe | | | S | 02 | | | / | Palacio | | ral [...] s | | +---------+---------+---------+---------+---------+---------+---------+---------+---------+ | ONYCHOM | 7158178 | | Active | | Kali | | Onychom | | | YCOSIS | 08 | / | | /01 | Palacio | | ycosis | | | | (SNOMED | | | | DPM | | | | | | CT) | | | | | | | | +---------+---------+---------+---------+---------+---------+---------+---------+---------+ | HEARTBU | 6002797 | | Active | | Tiesha | | Heartbu | | | RN | 0 | / | | / | | | rn | | | | (SNOMED | | | | [place] | | | | | | CT) | | | | MD | | | | +---------+---------+---------+---------+---------+---------+---------+---------+---------+ | TYPE 2 | [id number] | | Active | | Tiesha | | Disorde | | | DIABETE | 03 | / | | / | | | r due | | | S | (SNOMED | | | | [place] | | to type | | | [...] S | -CM) | | | | Maria Isabel | | s | | | MELLITU [...] athy | | +---------+---------+---------+---------+---------+---------+---------+---------+---------+ | UTI | [id number] | | Removed | | Pako | | Urinary | | | | 5 | /13 | | /13 | Middlek | | tract | | | | (SNOMED | | | | auff | | infecti | | | | CT) | | | | 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 | | ous | | | | | | | | | | disease | | +---------+---------+---------+---------+---------+---------+---------+---------+---------+ | LOCALIZ | 1214360 | | Removed | | D'Elena | [...] | | | +---------+---------+---------+---------+---------+---------+---------+---------+---------+ | LIPOMA | 4519282 | | Active | | Lauranc | | Lipoma | | | | 2 | /14 | | /14 | e W | | (clinic | | | | (SNOMED | | | | Lila | | al) | | | | CT) | | | | MD | | | | +---------+---------+---------+---------+---------+---------+---------+---------+---------+ | VITAMIN | 8358388 | | Active | | David W | | Vitamin | | | D | 6 | /14 | | /15 | Theen | | D | | | DEFICIE | (SNOMED | | | | MD FACE | | deficie | | | NCY | CT) | | | | FACP | | ncy | | +---------+---------+---------+---------+---------+---------+---------+---------+---------+ | OBESITY | 1984836 | | Active | | David Paez | | Obesity | | | , BMI | 01 | /14 | | /15 | Theen | | | | | 35-39.9 | (SNOMED | | | | MD FACE | | | | | , ADULT | CT) | | | | FACP | | | | +---------+---------+---------+---------+---------+---------+---------+---------+---------+ | DIABETE | 8118924 | | Removed | | David Paez | | Diabeti | | | S | 235708 | /14 | | /15 | Theen | | c | | [...] s | | +---------+---------+---------+---------+---------+---------+---------+---------+---------+ | HALLUX | 7034765 | | Inactiv | | Kali | [...] | | | +---------+---------+---------+---------+---------+---------+---------+---------+---------+ | HAMMER | 7028515 | | Inactiv | | Kali | | Hammer | | | TOE, | 08 | / | e | / | Palacio | | toe | | | OTHER, | (SNOMED | | | | DPM | | | | | ACQUIRE | CT) | | | | | | | | | D | | | | | | | | | +---------+---------+---------+---------+---------+---------+---------+---------+---------+ | ONYCHOM | 3348235 | | Inactiv | | Kali | [...] ropathy | | +---------+---------+---------+---------+---------+---------+---------+---------+---------+ | DIABETE | 7288555 | | Inactiv | | Kali | | Periphe | | | S | 02 | / | e | / | [...] s | | +---------+---------+---------+---------+---------+---------+---------+---------+---------+ | SCREENI | 3497561 | | Resolve | | Lauranc | | Depress | | | NG FOR | 06 | /10 | d | /10 | e W | | ion | | | DEPRESS | (SNOMED | | | | Lila | | screeni | | | ION | CT) | | | | MD | | ng | | +---------+---------+---------+---------+---------+---------+---------+---------+---------+ | SCREENI | 8572193 | | Resolve | | Lauranc | [...] | | | +---------+---------+---------+---------+---------+---------+---------+---------+---------+ | SCREENI | 7245817 | | Resolve | | Lauranc | [...] ng | | +---------+---------+---------+---------+---------+---------+---------+---------+---------+ | SCREENI | 0548250 | | Removed | | Geetha | [...] ng | | +---------+---------+---------+---------+---------+---------+---------+---------+---------+ | SCREENI | 3382411 | | Removed | | Geetha | [...] | | | +---------+---------+---------+---------+---------+---------+---------+---------+---------+ | SCREENI | 7273342 | | Removed | | Geetha | | Depress | | | NG FOR | 06 | / | | /10 | [place] | | ion | | | DEPRESS | (SNOMED | | | | [facility] | | screeni | | | ION | CT) | | | | | | ng | | +---------+---------+---------+---------+---------+---------+---------+---------+---------+ | RENAL | 2430716 | | Removed | | Lauranc | [...] e | | +---------+---------+---------+---------+---------+---------+---------+---------+---------+ | EDEMA | 4360875 | | Removed | | Lauranc | | Edema | | | | 08 | /15 | | /11 | e W | | | | | | (SNOMED | | | | Lila | | | | | | CT) | | | | MD | | | | +---------+---------+---------+---------+---------+---------+---------+---------+---------+ | RENAL | 3433722 | | Active | | Luz | [...] e | | +---------+---------+---------+---------+---------+---------+---------+---------+---------+ | PERIPHE | 7980220 | | Active | | Lauranc | [...] disease | | +---------+---------+---------+---------+---------+---------+---------+---------+---------+ | CANDIDI | 1498404 | | Active | | Susanna | | Candidi | | | ASIS, | 6 | / | | / | Medel | | asis of | | | SKIN | (SNOMED | | | | MD | | skin | | | | CT) | | | | | | | | +---------+---------+---------+---------+---------+---------+---------+---------+---------+ | DYSURIA | 6748583 | | Removed | | Erica | | Dysuria | | | | 1 | /31 | | /31 | Paul | | | | | | (SNOMED | | | | MA | | | | | | CT) | | | | | | | | +---------+---------+---------+---------+---------+---------+---------+---------+---------+ | VAGINIT | 2463576 | | Removed | | Erica | | Vaginit | | | IS | 1 | /31 | | /31 | Paul | | is | | | | (SNOMED | | | | MA | | | | | | CT) | | | | | | | | +---------+---------+---------+---------+---------+---------+---------+---------+---------+ | RLQ | 4022325 | | Resolve | | Lauranc | | Right | | | PAIN | 02 | | d | /11 | e W | | lower | | | | (SNOMED | | | | Lila | | quadran | | | | CT) | | | | MD | | t pain | | +---------+---------+---------+---------+---------+---------+---------+---------+---------+ | ABDOMIN | 6381244 | | Resolve | | Lauranc | [...] | | | +---------+---------+---------+---------+---------+---------+---------+---------+---------+ | KNEE | [id number] | | Active | | Lauranc | | Knee | | | PAIN | 3 | /14 | | /14 | e W | | pain | | | | (SNOMED | | | | Lila | | | | | | CT) | | | | MD | | | | +---------+---------+---------+---------+---------+---------+---------+---------+---------+ | Questio | 9919238 | | Correct | | Lauranc | [...] e | | +---------+---------+---------+---------+---------+---------+---------+---------+---------+ | VERTIGO | 8024756 | | Active | | Luz | | Vertigo | | | | 01 | /28 | | /03 | Asad | | | | | | (SNOMED | | | | RN | | | | | | CT) | | | | | | | | +---------+---------+---------+---------+---------+---------+---------+---------+---------+ | CHEST | 7761073 | | Inactiv | | Genny | | Chest | | | PAIN | 9 | | e | / | Kaufman | | pain | | | | (SNOMED | | | | | | | | | | CT) | | | | | | | | +---------+---------+---------+---------+---------+---------+---------+---------+---------+ | CHEST | [id number] | | Inactiv | | Lauranc | | Acute | | | PAIN, | | /14 | e | /14 | [...] fied | | +---------+---------+---------+---------+---------+---------+---------+---------+---------+ | CEREBRO | 2470420 | | Active | | Rogers | | 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 | | | R | (SNOMED | | | | MD | | r | | | DISEASE | CT) | | | | | | disease | | +---------+---------+---------+---------+---------+---------+---------+---------+---------+ | History | [id number] | | Active | | Rogers | | Cerebra | | | of | 07 | /16 | | / | Laith | | [...] | Encount | | | PROPHYL | (ICD- | | | e W | | [...] | | | +---------+---------+---------+---------+---------+---------+---------+---------+---------+ | DIABETI | [id number] | | Removed | | Rogers | [...] thy | | +---------+---------+---------+---------+---------+---------+---------+---------+---------+ | HYPERLI | 6161405 | | Active | | Rogers | | Hyperli | | | PIDEMIA | 4 | /30 | | /30 | Laith | | pidemia | | | | (SNOMED | | | | MD | | | | | | CT) | | | | | | | | +---------+---------+---------+---------+---------+---------+---------+---------+---------+ | History | 1489917 | | Active | | Rogers | [...] e | | +---------+---------+---------+---------+---------+---------+---------+---------+---------+ | CEREBRA | 3656426 | | Correct | | Rogers | [...] s | | +---------+---------+---------+---------+---------+---------+---------+---------+---------+ | ABDOMIN | [id number] | | Removed | | Patricia | [...] | | | +---------+---------+---------+---------+---------+---------+---------+---------+---------+ | RLQ | [id number] | | Removed | | Patricia | [...] | | | IA | (ICD-10 | /26 | | /26 | e W | | ia, | | | UNSPECI | -CM) | | | | Lila | | unspeci | | | FIED | | | | | MD | | fied | | +---------+---------+---------+---------+---------+---------+---------+---------+---------+ | CARPAL | [id number] | | Active | | Rogers | | Carpal | | | TUNNEL | 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 | | | | MD | | 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, 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) | | | | | | e | | +---------+---------+---------+---------+---------+---------+---------+---------+---------+ | [facility] | [id number] | | Removed | | Rogers | [...] | | | +---------+---------+---------+---------+---------+---------+---------+---------+---------+ | GAIT | [id number] | | Active | | Rogers | | Abnorma | | | IMBALAN | 2 | | | | Laith | | l gait | | | CE | (SNOMED | | | | MD | | | | | | CT) | | | | | | | | +---------+---------+---------+---------+---------+---------+---------+---------+---------+ | BRAIN | [id number] | | Correct | | Rogers | [...] e | | +---------+---------+---------+---------+---------+---------+---------+---------+---------+ | PARESTH | [id number] | | Removed | | Roegrs | | Paresth | | | ESIA, | 04 | | | | Laith | | esia of | | | HANDS | (SNOMED | | | | MD | | hand | | | | CT) | | | | | | | | +---------+---------+---------+---------+---------+---------+---------+---------+---------+ | PERIPHE | [id number] | | Correct | | Rogers | | Periphe | | | RAL | 06 | /25 | ion | /25 | Laith | | ral | | | NEUROPA | (SNOMED | | | | MD | | nerve | | | THY | CT) | | | | | | disease | | +---------+---------+---------+---------+---------+---------+---------+---------+---------+ | THYROID | [id number] | | Active | | Luz | | Thyroid | | | NODULE | 05 | /20 | | /20 | Eladio | | nodule | | | | (SNOMED | | | | [facility] | | | | | | CT) | | | | | | | | +---------+---------+---------+---------+---------+---------+---------+---------+---------+ | TIA | [id number] | | Active | | Lauranc | [...] a | | +---------+---------+---------+---------+---------+---------+---------+---------+---------+ | SYNCOPE | [id number] | | Removed | | Lauranc | | Syncope | | | | 07 | /07 | | /10 | e W | | | | | | (SNOMED | | | | Lila | | | | | | CT) | | | | MD | | | | +---------+---------+---------+---------+---------+---------+---------+---------+---------+ | GASTROP | [id number] | | Active | | Lauranc | | 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 | | | | Lila | | syndrom | | | | CT) | | | | MD | | e | | +---------+---------+---------+---------+---------+---------+---------+---------+---------+ | CONSTIP | [id number] | | Active | | Lauranc | | Chronic | | | ATION, | 09 | /08 | | /08 | e W | | | | | CHRONIC | (SNOMED | | | | Lila | | constip | | | | CT) | | | | MD | | ation | | +---------+---------+---------+---------+---------+---------+---------+---------+---------+ | POSTHER | [id number] | | Active | | Lauranc | | Posther | | | 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 | (SNOMED | | | | Lila | | neuralg | | | [place] | CT) | | | | MD | | ia | | +---------+---------+---------+---------+---------+---------+---------+---------+---------+ | DIZZINE | [id number] | | Removed | | Lauranc | | Dizzine | | | SS | 03 | /08 | | /08 | e W | | ss | | | | (SNOMED | | | | Lila | | | | | | CT) | | | | MD | | | | +---------+---------+---------+---------+---------+---------+---------+---------+---------+ | DEHYDRA | [id number] | | Removed | | Lauranc | | Dehydra | | | TION | 6 | /08 | | /08 | e W | | tion | | | | (SNOMED | | | | Lila | | | | | | CT) | | | | MD | | | | +---------+---------+---------+---------+---------+---------+---------+---------+---------+ | DIABETE | [id number] | | Removed | | Lauranc | [...] | | | +---------+---------+---------+---------+---------+---------+---------+---------+---------+ | HYPERTE | [id number] | | Active | | Lauranc | [...] Take one | | | PANTOPRAZO | [id number] | [facility] | | LE SODIUM | tablet by | | | LE SODIUM | 8 | Ankur DNP | | 40 MG TBEC | mouth once | | | | | 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 | | | daily | | | | | | + + + + + + + + | NYSTATIN-T | Apply thin | | | NYSTATIN-T | [id number] | [facility] | | RIAMCINOLO | layer to | | | RIAMCINOLO | 5 | Ankur DNP | | NE | affected | | | NE | | 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 | | 920168-4.1 | area BID | | | | | | | UNIT/GM-% | prn for | | | | | | | CREA | itching | | | | | | + + + + + + + + | LINZESS | Take one | | | LINACLOTID | [id number] | [facility] | | 145 MCG | tablet | | | E | 0 | Ankur DNP | | CAPS | daily for | | | | | 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 | | | constipati | | | | | | | | on. | | | | | | + + + + + + + + | FUROSEMIDE | TAKE 1 | | | FUROSEMIDE | [id number] | [facility] | | 80 MG | TABLET BY | | | | 5 | Ankur DNP | | TABS | MOUTH ONCE | | | | | 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 | | | DAILY IN | | | | | | | | THE | | | | | | | | MORNING | | | | | | + + + + + + + + | VOLTAREN 1 | apply 3-4 | | | DICLOFENAC | [id number] | Fredy | | % GEL | [...] + + | VITAMIN D3 | TAKE | | | CHOLECALCI | [id number] | [facility] | | 1000 UNIT | TABLET BY | | | FEROL | 0 | Ankur DNP | | TABS | MOUTH ONCE | | | | | 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 | | | DAILY IN | | | | | | | | THE | | | | | | | | MORNING | | | | | | + + + + + + + + | ONETOUCH | Use to | | | BLOOD | 9236852833 | [facility] | | VERIO | test | | | GLUCOSE | 1 | Ankur DNP | | w/Device | glucose | | | MONITORING | | 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 | | KIT | four times | [...] use with | | | BLOOD | 0180386846 | [facility]na | | PRIME | test [...] Use strip | | | GLUCOSE | 8734979137 | [facility] | | ULTRA BLUE | to checl | | | BLOOD | 0 | Ankur DNP | | STRP | glucose | | | | | 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 | | | four times | | [...] | USE | | | INSULIN | [id number] | [facility] | | INSULIN | SYRINGE 4 | | | SYRINGE-NE | 2 | Ankur DNP | | SYRINGE | TIMES | | | EDLE U-100 | | 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 | | 31G X | DAILYDx | | | | | | | 10/09" 0.5 | Code | | | | | | | ML | E11.40 | | | | | | + + + + + + + + | BD PEN | USE PEN | | | INSULIN | 6102314175 | [facility] | | NEEDLE | NEEDLE(S) | | | PEN NEEDLE | 9 | Ankur DNP | | SHORT U/F | 4 TIMES | | | | | 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 | | 31G X 8 MM | DAILYDx | | | | | | | | Code | | | | | | | | E11.40 | | | | | | + + + + + + + + | ONETOUCH | Use strip | | | GLUCOSE | 1480875677 | [facility] | | VERIO STRP | to checl | | | BLOOD | 0 | Ankur DNP | | | glucose | | | | | 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 | | | four times | | [...] Use to | | | GLUCOSE | 6690360117 | Edna | | BLOOD | check [...] Take one | | | IRBESARTAN | 8298307252 | [facility] | | 300 MG | tablet | | | | 3 | Ankur DNP | | TABS | daily | | | | | 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 | + + + + + + + + | BD INSULIN | Use to | | | INSULIN | 2946292882 | [facility] | | SYRINGE | inject | | | SYRINGE-NE | 6 | Ankur DNP | | ULTRAFINE | insulin 5 | | | EDLE U-100 | | 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 | | 29G X 05/28" | times per | | | | | | | 0.5 ML | day | | | | | | + + + + + + + + | RELION | Use to | | | GLUCOSE | 3043195021 | [facility] | | BLOOD | check | | | BLOOD | 4 | Ankur DNP | | GLUCOSE | blood | | | | | 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 | | TEST STRP | sugars | [...] use with | | | BLOOD | 9611658967 | [facility] | | PRIME | test | | | GLUCOSE | 2 | Ankur DNP | | MONITOR | strips to | | | MONITORING | | 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 | | DYLAN | test BG | | | SUPPL | | | | | daily | | | | | | + + + + + + + + | RELION | use when | | | GLUCOSE | 9895314590 | [facility] | | BLOOD | testing BG | | | BLOOD | 4 | Ankur DNP | | GLUCOSE | | | | | | 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 | | TEST STRP | | | | | | | + + + + + + + + | BIOTIN 1 | Take one | | | BIOTIN | 4071506948 | Lorri | | MG CAPS | daily in | | | | 2 | Prabhakar | | | the AM | | | | | NCMA | + + + + + + + + | BASAGLAR | 68 Units | | | INSULIN | 7835228175 | [facility] | | KWIKPEN | every | | | GLARGINE | 9 | Ankur DNP | | 100 | morning | | | | | 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 | | UNIT/ML | (34 units | | | | | | | SOPN | on each | | | | | | | | side) | | | | | | + + + + + + + + | BASAGLAR | 65 Units | | | INSULIN | 2604749689 | [facility] | | KWIKPEN | every | | | GLARGINE | 9 | Ankur DNP | | 100 | morning | | | | | 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 | | UNIT/ML | | | | | | | | SOPN | | | | | | | + + + + + + + + | BASAGLAR | 60 Units | | | INSULIN | 9886190147 | [facility] | | KWIKPEN | every | | | GLARGINE | 9 | Ankur DNP | | 100 | morning | | | | | 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 | | UNIT/ML | | | | | | | | SOPN | | | | | | | + + + + + + + + | RELION | Use daily | | | GLUCOSE | 9436861513 | [facility] | | BLOOD | to check | | | BLOOD | 4 | Ankur DNP | | GLUCOSE | blood | | | | | 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 | | TEST STRP | sugar | | | | | | + + + + + + + + | DIABETIC | 1 pair per | | | DIABETIC | | [facility] | | ORTHOTIC | custom | | | ORTHOTIC | | Ankur DNP | | SHOES | fit from | | | SHOES | | 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 | | | podiatry | | | | | | | | E11.65, | | | | | | | | e11.21 | | | | | | + + + + + + + + | DIABETIC | 1 pair per | | | FOOT CARE | [id number] | [facility] | | INSOLES | custom | | | PRODUCTS | 1 | Ankur DNP | | | fit from | | | | | 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 | | | podiatry | | | | | | | | Dx. | | | | | | | | E11.65, | | | | | | | | e11.21 | | | | | | + + + + + + + + | BD INSULIN | Use 5 | | | INSULIN | 0893091015 | [facility] | | SYRINGE | times | | | SYRINGE-NE | 1 | Ankur DNP | | ULTRAFINE | daily to | | | EDLE U-100 | | 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 | | 29G X 1/2" | inject [...] Use daily | | | INSULIN | 2106958431 | [facility] | | NEEDLE | to inject | | | PEN NEEDLE | 0 | Ankur DNP | | ULTRAFINE | insulin | | | | | 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 | | 29G X | | | | | | | | 12.7MM | | | | | | | + + + + + + + + | RELION PEN | | | | INSULIN | 6980234006 | [facility] | | NEEDLES | | | | PEN NEEDLE | 4 | Ankur DNP | | 31G X 8 MM | | | | | | 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 | + + + + + + + + | MISC | | | | MISC | | [facility] | | | | | | | | Ankur DNP | | | | | | | | 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 | + + + + + + + + | NERVE | | | | NERVE | | [facility] | | PAIN | | | | PAIN | | Ankur DNP | | | | | | | | 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 | + + + + + + + + | HEARTBU | | | | HEARTBU | | [facility] | | RN/NAUSEA* | | | | RN/NAUSEA* | | Ankur DNP | | | | | | | | 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 | + + + + + + + + | STROKE | | | | STROKE | | [facility] | | PREVENTION | | | | PREVENTION | | Ankur DNP | | | | | | | | 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 | + + + + + + + + | BLOOD | | | | BLOOD | | [facility] | | PRESSURE | | | | PRESSURE | | Ankur DNP | | * | | | | * | | 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 | + + + + + + + + | DIABETE | | | | DIABETE | | [facility] | | S | | | | S | | Ankur DNP | | | | | | | | 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 | + + + + + + + + | MIRALAX | 17 gm | | | POLYETHYLE | 8216228579 | [facility] | | POWD | daily | | | NE GLYCOL | 2 | Ankur DNP | | | stirred | | | 3350 | | 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 | | | into 4-8 | | [...] 1 pill | | | DOCUSATE | [id number] | [facility] | | MG CAPS | twice | | | SODIUM | 0 | Ankur DNP | | | daily for | | | | | 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 | | | soft | | | | | | | | stools | | | | | | + + + + + + + + | NOVOLOG | 12 Units | | | INSULIN | 7345999085 | [facility] | | 100 | before | | | ASPART | 1 | Ankur DNP | | UNIT/ML | meals | | | | | 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 | | SOLN | SS:150-175 | | [...] 1 capsule | | | PREGABALIN | 6974567635 | [facility] | | MG CAPS | three | | | | 8 | Ankur DNP | | | times | | | | | 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 | | | daily for | | | | | | | | neuropathy | | | | | | + + + + + + + + | LYRICA 100 | 1 tab | | | PREGABALIN | 6251224197 | [facility] | | MG CAPS | three | | | | 8 | Ankur DNP | | | times per | | | | | 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 | | | day. Pt | | | | | | | | states as | | | | | | | | needed | | | | | | + + + + + + + + | PROCHLORPE | Insert one | | | PROCHLORPE | 4004238718 | [facility] | | RAZINE 25 | | | | RAZINE | 0 | Ankur DNP | | MG SUPP | suppositor | | | | | 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 | | | y rectally | | | | | | | | every 24 | | | | | | | | hours as | | | | | | | | needed | | | | | | + + + + + + + + | VICTOZA 18 | .6 mg x 1 | | | LIRAGLUTID | [id number] | [facility] | | MG/3ML | week then | | | E | 2 | Ankur DNP | | SOPN | 1.2 mg | | | | | 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 | | | daily per | | | | | | | | week | | | | | | + + + + + + + + | RELION PEN | | | | INSULIN | 1789803269 | David | | NEEDLES | | | | PEN NEEDLE | 4 | Hoyne DO | | 31G X 8 MM | | | | | | | + + + + + + + + | NOVOLOG | 3U before | | | INSULIN | 7268642355 | Scarlett | | 100 | lunch and | | | ASPART | 1 | Farias | | UNIT/ML | 5U before | | | | | CCMA | | SOLN | Katelynner | | [...] 1 tid | | | PREGABALIN | 0823827204 | Christen J. | | MG CAPS | | | | | 8 | Raumakita | | | | | | | | 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 | + + + + + + + + | PROMETHAZI | Take one | | | PROMETHAZI | 9716519574 | [facility] | | NE HCL 25 | tablet by | | | NE HCL | 1 | Charity CCMA | | MG TABS | mouth [...] Insert one | | | PROCHLORPE | 9160524555 | [facility] | | RAZINE 25 | [...] Take one | | | CLONAZEPAM | 4024570911 | [facility] | | 0.5 MG | tablet | | | | 1 | [facility] CCMA | | TABS | every 24 | | | | | | | | hours as | | | | | | | | needed for | | | | | | | | anxiety | | | | | | + + + + + + + + | PANTOPRAZO | Take one | | | PANTOPRAZO | 0262050957 | [facility] | | LE SODIUM | tablet by | | | LE SODIUM | 8 | Ankur DNP | | 40 MG TBEC | mouth once | | | | | 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 | | | daily | | | | | | + + + + + + + + | NITROFURAN | Take one | | | NITROFURAN | 0256261397 | [facility] | | TOIN | capsule [...] x 1 | | | LIRAGLUTID | 3636754566 | Christen J. | | MG/3ML | week then | | | E | 2 | Raumakita | | SOPN | 1.2 mg | | | | | 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 | | | daily per | | | | | | | | week | | | | | | + + + + + + + + | VICTOZA 18 | Inject 0.6 | | | LIRAGLUTID | 3806243085 | Christen J. | | MG/3ML | mg daily | | | E | 2 | Raum[place]ita | | SOPN | | | | | | 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 | + + + + + + + + | DRAMAMINE | take 1-2 | | | DIMENHYDRI | 6679894208 | Christen J. | | 50 MG TABS | tabs 4 | | | MARCELA | 2 | Raumakita | | | times per | | | | | 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 | | | day as | | | | | | | | needed | | | | | | + + + + + + + + | NEURONTIN | take 1 tab | | | GABAPENTIN | 1727110976 | Christen Ramirez | | 300 MG | po tid . | | | | 4 | [place] | | CAPS | Pt states | | | | | 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 | | | as needed | | | | | | + + + + + + + + | PIOGLITAZO | Take 1 tab | | | PIOGLITAZO | 8765820360 | Christen Ramirez | | NE HCL 15 | by mouth | | | NE HCL | 6 | Raumakita | | MG TABS | one time | | | | | 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 | | | per day in | | | | | | | | the AM | | | | | | + + + + + + + + | NITROFURAN | Take one | | | NITROFURAN | 0784890518 | [facility] | | TOIN | capsule [...] NITROFURAN | | | | NITROFURAN | 6541006771 | [facility] | | TOIN | | [...] Take 1 | | | GLIPIZIDE | 3598803636 | [facility] | | XL 2.5 MG | tablet | | | | 1 | Ankur DNP | | [id number] | p.o. | | | | | 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 | | | q.a.m. | | | | | | + + + + + + + + | NOVOLOG | 3U before | | | INSULIN | 2432561939 | David | | 100 | lunch and | | | ASPART | 1 | Hoyne DO | | UNIT/ML | 5U before | | | | | | | SOLN | Dinner | | [...] 3U before | | | INSULIN | 8255498857 | Christen J. | | 100 | lunch and | | | LISPRO | 1 | Raumakita | | UNIT/ML | 5U before | | | | | 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 | | SOLN | Dinner | | [...] <150 - | | | INSULIN | 3717340347 | Christen Ramirez | | 100 | No insulin | | | LISPRO | 1 | Raum[place]ita | | UNIT/ML | BS | | | (HUMAN) | | 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 | | SOLN | 150-200 | | [...] Take as | | | EXENATIDE | 0995359720 | Christen Ramirez | | MCG PEN 5 | directed | | | | 1 | [facility] | | MCG/0.02ML | once daily | | | | | 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 | | SOPN | in the AM | | | | | | + + + + + + + + | BASAGLAR | 1 pen | | | INSULIN | 4243292715 | Christen Ramirez | | KWIKPEN | every 3 | | | GLARGINE | 9 | Raumakita | | 100 | days 56 | | | | | 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 | | UNIT/ML | units q | | | | | | | SOPN | Day | | | | | | + + + + + + + + | BASAGLAR | 56 Units | | | INSULIN | 6306522588 | David | | KWIKPEN | every [...] Inject 0.6 | | | LIRAGLUTID | 4576879989 | Christen Ramirez | | MG/3ML | mg daily | | | E | 2 | [place] | | SOPN | | | | | | 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 | + + + + + + + + | VICTOZA 18 | 5 unit AM | | | LIRAGLUTID | 2508535156 | Christen Ramirez | | MG/3ML | and 5 | | | E | 2 | [place] | | SOPN | units PM | | | | | 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 | + + + + + + + + | BASAGLAR | 1 pen | | | INSULIN | 5575143319 | Christen Ramirez | | KWIKPEN | every 3 | | | GLARGINE | 9 | Ra[facility]ita | | 100 | days 56 | | | | | 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 | | UNIT/ML | units q | | | | | | | SOPN | Day | | | | | | + + + + + + + + | MECLIZINE | One tab by | | | MECLIZINE | 3075402542 | [facility] | | HCL 25 MG | mouth | | | HCL | 0 | Ankur DNP | | TABS | three | | | | | 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 | | | times per | | [...] 56 Units | | | INSULIN | 3739966599 | Christen Ramirez | | KWIKPEN | by mouth | | | GLARGINE | 9 | [place] | | 100 | every | | | | | 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 | | UNIT/ML | morning | | | | | | | SOPN | | | | | | | + + + + + + + + | SUPREP | mix and | | | NA | 9503275134 | Maulik | | BOWEL PREP | drink one | | | SULFATE-K | 1 | Lilia | | KIT | bottle at | | | SULFATE-MG | | MD | | 17.5-3.13- | 5pm day | | | SULF | | | | 1.6 | before | | | | | | | GM/180ML | procedure. | | | | | [...] mix and | | | NA | 8332529248 | Emeka | | BOWEL PREP | drink one | | | SULFATE-K | 1 | Petre MD | | KIT | bottle at | | | SULFATE-MG | | | | 17.5-3.13- | 5pm day | | | SULF | | | | 1.6 | before | | | | | | | GM/180ML | procedure. | | | | | [...] pill BID | | | DOCUSATE | 8672340085 | [facility] | | MG CAPS | | | | SODIUM | 0 | Ankur DNP | | | | | | | | 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 | + + + + + + + + | RELION | Use daily | | | GLUCOSE | 2306499576 | Tiesha | | BLOOD | to [...] per | | | FOOT CARE | 0386526845 | Tiesha | | INSOLES | custom | | | PRODUCTS | 1 | Mulhall MD | | | fit from | [...] 1 pill | | | CEPHALEXIN | 9236842193 | Tiesha | | MG CAPS | twice a | | | | 1 | Maria Isabel MD | | | day for 7 | | | | | | | | days | | | | | | + + + + + + + + | BD INSULIN | Use 5 | | | INSULIN | 2215593291 | [facility] | | SYRINGE | times | | | SYRINGE-NE | 1 | Ankur DNP | | ULTRAFINE | daily to | | | EDLE U-100 | | 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 | | 29G X 1/2" | inject [...] 56 units | | | INSULIN | 9872531015 | Kaykay | | UNIT/ML | qAM | | | GLARGINE | 3 | Mora DO | | SOLN | | | | | | | + + + + + + + + | KEFLEX 500 | 1 pill | | | CEPHALEXIN | 1557546015 | Pako | | MG CAPS | twice a | | | | 1 | Middlekauf | | | day for 7 | | | | | f 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 | | | days | | | | | | + + + + + + + + | LANTUS 100 | 50 units | | | INSULIN | 0643175918 | [facility] | | UNIT/ML | once per | | | GLARGINE | 3 | Middlekauf | | SOLN | day. Pt | | | | | f 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 | | | states she | | | | | | | | is taking | | | | | | | | 56 units | | | | | | | | every AM | | | | | | + + + + + + + + | BIOTIN 1 | Take one | | | BIOTIN | 4846752491 | [facility] | | MG CAPS | daily in | | | | 2 | Ankur DNP | | | the AM | | | | | 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 | + + + + + + + + | VICTOZA 18 | | | | LIRAGLUTID | 2411463575 | Jesus | | MG/3ML | | | | E | 2 | Ethan MD | | SOPN | | | | | | | + + + + + + + + | BYETTA 5 | Take as | | | EXENATIDE | 8606360563 | Christen Ramirez | | MCG PEN 5 | directed | | | | 1 | [facility] | | MCG/0.02ML | once daily | | | | | 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 | | SOPN | in the AM | | | | | | + + + + + + + + | VITAMIN D | Take one | | | CHOLECALCI | 8599911371 | [facility] | | 1000 UNIT | tablet | | | FEROL | 1 | Ankur DNP | | TABS | daily in | | | | | 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 | | | the AM | | | | | | + + + + + + + + | POTASSIUM | Take one | | | POTASSIUM | 8692511717 | [facility] | | CHLORIDE | cap daily | | | CHLORIDE | 1 | Ankur DNP | | ER 10 MEQ | in the AM | | | | | 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 | | CR-CAPS | | | | | | | + + + + + + + + | NEURONTIN | take 1 tab | | | GABAPENTIN | 8445610336 | Jesus | | 300 MG | po tid . | | | | 4 | Ethan MD | | CAPS | Pt states | | | | | | | | as needed | | | | | | + + + + + + + + | LASIX 80 | 1 tab by | | | FUROSEMIDE | 9443811226 | [facility] | | MG TABS | mouth one | | | | 5 | Ankur DNP | | | time per | | | | | 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 | | | day in the | | | | | | | | AM | | | | | | + + + + + + + + | LYRICA 100 | 1 tab | | | PREGABALIN | 4358598723 | Christen Ramirez | | MG CAPS | three | | | | 8 | [place] | | | times per | | | | | 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 | | | day. Pt | | | | | | | | states as | | | | | | | | needed | | | | | | + + + + + + + + | OMEPRAZOLE | Take one | | | OMEPRAZOLE | 4265455829 | [facility] | | 40 MG | by mouth | | | | 0 | Ankur DNP | | CPDR | one time | | | | | 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 | | | per day | | [...] tab by | | | CLOPIDOGRE | 2971882455 | [facility] | | MG TABS | mouth one | | | L | 1 | Ankur DNP | | | time per | | | BISULFATE | | 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 | | | day in the | | | | | | | | evening | | | | | | + + + + + + + + | LIPITOR 20 | take 1 | | | ATORVASTAT | 3866739798 | [facility] | | MG TABS | tablet by | | | IN CALCIUM | 3 | Ankur DNP | | | mouth | | | | | 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 | | | daily in | | | | | | | | the | | | | | | | | evening | | | | | | + + + + + + + + | VALSARTAN | Take one | | | VALSARTAN | 6652411074 | [facility] | | 160 MG | tablet | | | | 7 | Ankur DNP | | TABS | daily in | | | | | 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 | | | the AM | | | | | | + + + + + + + + | PIOGLITAZO | Take 1 tab | | | PIOGLITAZO | [id number] | Jesus | | NE HCL 15 [...] 25 units | | | INSULIN | [id number] | Jesus | | UNIT/ML | two [...] 18 | | | | LIRAGLUTID | [id number] | Franciscoance W | | MG/3ML | | | | E | 2 | Lila MD | | SOPN | | | | | | | + + + + + + + + | BYETTA 5 | 0.02 ml | | | EXENATIDE | [id number] | Laurance W | | MCG PEN 5 | injection | | | | 1 | Lila MD | | MCG/0.02ML | two times | | | | | | | SOPN | per day | | | | | | + + + + + + + + | DRAMAMINE | take 1-2 | | | DIMENHYDRI | [id number] | Franciscoance W | | 50 MG TABS | [...] 1 | | | | BIOTIN | [id number] | Kali | | MG CAPS | | | | | 2 | Palacio DPM | + + + + + + + + | VITAMIN D | | | | CHOLECALCI | [id number] | Kali | | 1000 UNIT | | | | FEROL | 1 | Hakeem DPM | | TABS | | | | | | | + + + + + + + + | POTASSIUM | | | | POTASSIUM | [id number] | Kali | | CHLORIDE | | | | CHLORIDE | 1 | Hakeem DPM | | ER 10 MEQ | | | | | | | | CR-CAPS | | | | | | | + + + + + + + + | BUSPIRONE | 1 TAB | | | BUSPIRONE | [id number] | Kali | | HCL 7.5 MG | three | | | HCL | 1 | Hakeem DICKEYM | | TABS | times per | | | | | | | | day | | | | | | + + + + + + + + | COLACE 100 | 1 tab by | | | DOCUSATE | [id number] | Kali | | MG CAPS | mouth | | | SODIUM | 0 | Palacio DPM | | | daily at | | | | | | | | bedtime | | | | | | + + + + + + + + | RELION | Use to | | | GLUCOSE | [id number] | Kali | | BLOOD | test BG | | | BLOOD | 4 | Palacio DPM | | GLUCOSE | one time | | | | | | | TEST STRP | per day | | | | | | + + + + + + + + | ONDANSETRO | 1 tab | | | ONDANSETRO | [id number] | Kali | | N HCL 4 MG | every 4 | | | N HCL | 3 | Palacio DPM | | TABS | hours | | | | | | + + + + + + + + | CILOSTAZOL | 1 tab two | | | CILOSTAZOL | [id number] | Kali | | 100 MG | times per | | | | 1 | Palacio DPM | | TABS | day | | | | | | + + + + + + + + | LANTUS 100 | 25 units | | | INSULIN | [id number] | Laurance W | | UNIT/ML | two times | | | GLARGINE | 3 | Lila MD | | SOLN | per day | | | | | | + + + + + + + + | NEURONTIN | take 1 tab | | | GABAPENTIN | [id number] | Laurance W | | 300 MG [...] tab by | | | FUROSEMIDE | 6214187145 | Laurance W | | MG TABS | mouth one | | | | 5 | Lila MD | | | time per | | | | | | | | day | | | | | | + + + + + + + + | FUROSEMIDE | 1 tab one | | | FUROSEMIDE | [id number] | Laurance W | | 40 MG | time per | | | | 5 | Lila MD | | TABS | day | | | | | | + + + + + + + + | BUSPIRONE | 1 TAB | | | BUSPIRONE | [id number] | Laurance W | | HCL 7.5 MG | three | | | HCL | 1 | Lila MD | | TABS | times per | | | | | | | | day | | | | | | + + + + + + + + | COLACE 100 | 1 tab by | | | DOCUSATE | [id number] | Laurance W | | MG CAPS | mouth | | | SODIUM | 0 | Lila MD | | | daily at | | | | | | | | bedtime | | | | | | + + + + + + + + | LYRICA 100 | 1 tab | | | PREGABALIN | [id number] | Laurance W | | MG CAPS | three | | | | 8 | Lila MD | | | times per | | | | | | | | day | | | | | | + + + + + + + + | GABAPENTIN | Take 2 | | | GABAPENTIN | [id number] | Laurance W | | 300 MG [...] by mouth | | | TRIMETHOPR | [id number] | Laurance W | | 800-160 | twice a | | | IM-SULFAME | 1 | Lila MD | | MG TABS | day for 3 | | | THOXAZOLE | | | | | days | | | | | | + + + + + + + + | BACTRIM DS | 1 by mouth | | | TRIMETHOPR | 1546898033 | Laurance W | | 800-160 | [...] 1 tab | | | MECLIZINE | [id number] | Laurance W | | HCL 25 MG | three | | | HCL | 0 | Lila MD | | TABS | times per | | | | | | | | day | | | | | | + + + + + + + + | GLUCOPHAGE | 1 tab one | | | METFORMIN | [id number] | Franciscoance W | | XR 500 MG | time per | | | HCL | 3 | Lila MD | | [id number] | day | | | | | | + + + + + + + + | BD INSULIN | Use 5 | | | INSULIN | [id number] | Bailey W | | SYRINGE | times | | | SYRINGE-NE | 1 | Lila MD | | ULTRAFINE | daily to | | | EDLE U-100 | | | | 29G X 1/2" | inject [...] | | | | DIABETE | | Laurance W | | S | | | | S | | Lila MD | + + + + + + + + | LYRICA 50 | Take 1 tab | | | PREGABALIN | [id number] | Bailey W | | MG CAPS [...] Use daily | | | INSULIN | [id number] | [facility] | | NEEDLE | to inject | | | PEN NEEDLE | 0 | Ankur DNP | | ULTRAFINE | insulin | | | | | 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.] 0.02 ml | | | EXENATIDE | [id number] | Laurance W | | MCG PEN 5 | injection | | | | 1 | Lila MD | | MCG/0.02ML | two times | | | | | | | SOPN | per day | | | | | | + + + + + + + + | BYETTA 5 | 0.2 ml | | | EXENATIDE | [id number] | Laurance W | | MCG PEN 5 | injection | | | | 1 | Lila MD | | MCG/0.02ML | two times | | | | | | | SOPN | per day | | | | | | + + + + + + + + | LYRICA 50 | TAKE ONE | | | PREGABALIN | 7255550050 | Bailey W | | MG CAPS [...] 1 tab | | | MECLIZINE | 4357396449 | Laurance W | | HCL 25 MG | three | | | HCL | 0 | Lila MD | | TABS | times per | | | | | | | | day | | | | | | + + + + + + + + | CILOSTAZOL | 1 tab two | | | CILOSTAZOL | 1096760808 | Laurance W | | 100 MG | times per | | | | 1 | Lila MD | | TABS | day | | | | | | + + + + + + + + | ONDANSETRO | 1 tab | | | ONDANSETRO | [id number] | Laurance W | | N HCL 4 MG | every 4 | | | N HCL | 3 | Lila MD | | TABS | hours | | | | | | + + + + + + + + | LYRICA 50 | 1 tab | | | PREGABALIN | [id number] | Bailey W | | MG CAPS | three | | | | 8 | Lila MD | | | times per | | | | | | | | day | | | | | | + + + + + + + + | KEFLEX 500 | one po TID | | | CEPHALEXIN | [id number] | Susanna | | MG CAPS | | | | | 1 | Gianfranco LUIS | + + + + + + + + | NYSTATIN-T | Apply thin | | | NYSTATIN-T | [id number] | Ambrose | | RIAMCINOLO | layer to | | | RIAMCINOLO | 5 | Ankur DNP | | NE | affected | | | NE | | 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 | | 122013-2.1 | area BID | | | | | | | UNIT/GM-% | prn for | | | | | | | CREA | itching | | | | | | + + + + + + + + | FLUCONAZOL | take one | | | FLUCONAZOL | [id number] | Susanna | | E 150 MG | tablet PO | | | E | 1 | Gianfranco MD | | TABS | x 1 repeat | | | | | | | | in 3 days | | | | | | + + + + + + + + | ASPIRIN | take 1 | | | ASPIRIN | [id number] | Bailey W | | 325 MG [...] tab by | | | CLOPIDOGRE | 4160495012 | Bailey W | | MG TABS | mouth one | | | L | 1 | Lila MD | | | time per | | | BISULFATE | | | | | day | | | | | | + + + + + + + + | LYRICA 50 | 1 tab | | | PREGABALIN | 8254597363 | Laurance W | | MG CAPS | three | | | | 8 | Lila MD | | | times per | | | | | | | | day | | | | | | + + + + + + + + | GLUCOPHAGE | 1 tab one | | | METFORMIN | 8181497078 | Laurance W | | XR 500 MG | time per | | | HCL | 3 | Lila MD | | [id number] | day | | | | | | + + + + + + + + | MECLIZINE | One tab by | | | MECLIZINE | 2558656502 | Laurance W | | HCL 25 [...] 10ml's two | | | METFORMIN | 0496277394 | Laurance W | | MG/5ML | [...] Take 2 | | | GABAPENTIN | 2634578725 | Laurance W | | 300 MG [...] TAB one | | | VALSARTAN | 9063160106 | Laurance W | | 160 MG | time per | | | | 8 | Lila MD | | TABS | day | | | | | | + + + + + + + + | DULOXETINE | 1 tab one | | | DULOXETINE | 0126487868 | Laurance W | | HCL 30 MG | time per | | | HCL | 6 | Lila MD | | CPEP | day | | | | | | + + + + + + + + | GABAPENTIN | take 2 | | | GABAPENTIN | 1044385971 | Laurance W | | 300 MG [...] tab one | | | DULOXETINE | 4696934956 | Laurance W | | HCL 30 MG | time per | | | HCL | 6 | Lila MD | | CPEP | day | | | | | | + + + + + + + + | VICTOZA 18 | 1.2 mg | | | LIRAGLUTID | 3182743990 | Laurance W | | MG/3ML | injected | | | E | 2 | Lila MD | | SOPN | martin | | | | | | + + + + + + + + | DIOVAN 320 | 1 TAB one | | | VALSARTAN | 4121966347 | Laurance W | | MG TABS | time per | | | | 4 | Lila MD | | | day | | | | | | + + + + + + + + | MECLIZINE | One tab by | | | MECLIZINE | 0909286363 | Laurance W | | HCL 25 [...] one time | | | VALSARTAN | 0482158953 | Mariano | | MG TABS | per day | | | | 4 | Ariella | | | | | | | | CCMA | + + + + + + + + | GABAPENTIN | take 2 | | | GABAPENTIN | 2591167789 | Mariano | | 300 MG | [...] Take one | | | OMEPRAZOLE | 1719355651 | Bailey W | | 40 MG | by [...] take 2 | | | GABAPENTIN | 4206143802 | Bailey W | | 300 MG [...] two times | | | MECLIZINE | 2059993574 | Laurance W | | HCL 25 MG | per day | | | HCL | 0 | Lila MD | | TABS | | | | | | | + + + + + + + + | DIOVAN 320 | 1 tab one | | | VALSARTAN | 5700033170 | Bailey W | | MG TABS | time per | | | | 4 | Lila MD | | | day | | | | | | + + + + + + + + | VICTOZA 18 | 0.6 mg | | | LIRAGLUTID | 2318644401 | Bailey W | | MG/3ML | [...] take 1 | | | ASPIRIN | 2823809813 | Rogers | | 325 MG | [...] tab one | | | SITAGLIPTI | 1038106849 | Laurance W | | 100 MG | time per | | | N | 2 | Lila MD | | TABS | day | | | PHOSPHATE | | | + + + + + + + + | DIOVAN 160 | 1 by mouth | | | VALSARTAN | 4104168891 | Laurance W | | MG TABS | every day | | | | 4 | Lila MD | + + + + + + + + | GABAPENTIN | 2 tabs two | | | GABAPENTIN | 3933466718 | Laurance W | | 300 MG | times per | | | | 5 | Lila MD | | CAPS | day | | | | | | + + + + + + + + | LANTUS 100 | 56 units | | | INSULIN | 7876426537 | Laurance W | | UNIT/ML | in the | | | GLARGINE | 3 | Lila MD | | SOLN | morning | | | | | | + + + + + + + + | RIOMET 500 | 10ml's two | | | METFORMIN | 1010410358 | Laurance W | | MG/5ML | [...] tab at | | | GABAPENTIN | 7004446946 | Laurance W | | 100 MG [...] 28 units | | | INSULIN | 8597389733 | Bailey W | | UNIT/ML | two times | | | GLARGINE | 3 | Lila MD | | SOLN | per day | | | | | | + + + + + + + + | LISINOPRIL | take 1 | | | LISINOPRIL | 9856412928 | Rogers | | 20 MG | tablet by | | | | 1 | Laith LUIS | | TABS | mouth | | | | | | | | daily | | | | | | + + + + + + + + | MECLIZINE | two times | | | MECLIZINE | 3270642250 | Mariano | | HCL 25 MG | per day | | | HCL | 0 | Ariella | | TABS | | | | | | CCMA | + + + + + + + + | ERGOCALCIF | One | | | ERGOCALCIF | 9499751798 | Mariano | | QUANG 95519 | capsule by | | | QUANG [...] two times | | | GABAPENTIN | 2900496355 | Mariano | | 100 MG | per day | | | | 1 | Ariella | | CAPS | | | | | | CCMA | + + + + + + + + | METFORMIN | two times | | | METFORMIN | 8214521910 | Mariano | | HCL 1000 | per day | | | HCL | 5 | Ariella | | MG TABS | | | | | | CCMA | + + + + + + + + | RIOMET 500 | 10ml QAM | | | METFORMIN | 6549281260 | Mariano | | MG/5ML | Liquid due | | | HCL | 1 | Ariella | | SOLN | to | | | | | CCMA | | | Dysphagia | | | | | | + + + + + + + + | ASPIRIN EC | take 1 | | | ASPIRIN | 5274160003 | Mariano | | 325 MG | tablet | | | | 1 | Ariella | | TBEC | daily | | | | | CCMA | + + + + + + + + | ASPIRIN 81 | one time | | | ASPIRIN | 3213751823 | Mariano | | MG ORAL | per day | | | | 5 | Ariella | | TABLET | | | | | | CCMA | + + + + + + + + | GABAPENTIN | 1 by mouth | | | GABAPENTIN | 1667222772 | Bailey W | | 100 MG | one [...] take 1 | | | ATORVASTAT | 9292095702 | Bailey W | | MG TABS | tablet by | | | IN CALCIUM | 3 | Lila MD | | | mouth | | | | | | | | daily | | | | | | + + + + + + + + | ASPIRIN EC | take 1 | | | ASPIRIN | 4906558099 | Rogers | | 325 MG | tablet | | | | 1 | Laith MD | | TBEC | daily | | | | | | + + + + + + + + | RELION | Use to | | | GLUCOSE | 7959553193 | Bailey W | | BLOOD | test BG | | | BLOOD | 4 | Lila MD | | GLUCOSE | one time | | | | | | | TEST STRP | per day | | | | | | + + + + + + + + | RIOMET 500 | 10ml QAM | | | METFORMIN | 4694315765 | Laurance W | | MG/5ML | Liquid due | | | HCL | 1 | Lila MD | | SOLN | to | | | | | | | | Dysphagia | | | | | | + + + + + + + + | ERGOCALCIF | One | | | ERGOCALCIF | 3238223239 | Laurance W | | QUANG 64388 | capsule by | | | QUANG [...] one tablet | | | DOCUSATE | [id number] | Laurance W | | MG CAPS | by mouth | | | SODIUM | 0 | Lila MD | | | at bedtime | | | | | | + + + + + + + + | GABAPENTIN | one tablet | | | GABAPENTIN | 6876736204 | Laurance W | | 100 MG [...] by mouth | | | MECLIZINE | 3239823343 | Laurance W | | HCL 25 [...] by mouth | | | LISINOPRIL | 8349663496 | Laurance W | | 5 MG TABS | one time | | | | 1 | Lila MD | | | per day | | | | | | + + + + + + + + | COLACE 100 | one tablet | | | DOCUSATE | 7735690937 | Laurance W | | MG CAPS | by mouth | | | SODIUM | 0 | Lila MD | | | at bedtime | | | | | | + + + + + + + + | MECLIZINE | 1 by mouth | | | MECLIZINE | 0146782523 | Laurance W | | HCL 25 [...] one tablet | | | GABAPENTIN | 0305181752 | Laurance W | | 100 MG [...] one tablet | | | METFORMIN | 2639701490 | Laurance W | | HCL 1000 | by mouth | | | HCL | 5 | Lila MD | | MG TABS | twice a | | | | | | | | day | | | | | | + + + + + + + + | ASPIRIN 81 | 1 by mouth | | | ASPIRIN | 6982973928 | Laurance W | | MG ORAL | every day | | | | 5 | Lila MD | | TABLET | | | | | | | + + + + + + + + | HUMALOG | BS <150 - | | | INSULIN | 3559806559 | Tiesha | | 100 | No insulin | | | LISPRO | 1 | Mulhall MD | | UNIT/ML | BS | [...] 56 units | | | INSULIN | 1958770878 | Bailey W | | UNIT/ML | daily | | | GLARGINE | 3 | Lila MD | | GEOVANI | | | | [...] + + + + + + | VINCENT IV | Pt states | | Critical [...] she had | | | Active | Theen MD | | | redness | | | [...] | | | | | | | 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 | + + + + + + [...] +------+------+-------+------+-------+------+ + + + | Office Visit: Diabetic Foot Exam- Ambrose Pascual 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 Pt | + + + + +-----+-------+---+---+ + | | BG RANDOM | 198 | mg/dL | | | blood | | | | | | | | glucose, | | | | | | | | random | + + +-----+-------+---+---+ + + + | Lab Report: Glyco Hemoglobin, A1C | + + + +--------+-----+---+---------+---+ + | | HGBA1C | 9.6 | % | 4.6-6.2 | H | Hemoglobin | | | | | | | | | | | | | | | | A1c/Hemogl | | | | | | | | obin.total | | | | | | | | in Blood | + +--------+-----+---+---------+---+ + + + | Lab Report: Urinalysis, Culture If Indicat, Urinalysis, Microscopic | + + + + + + + +---+ + | | BACTERIA | Few | | None | H | bacteria, | | | URN | | | | | urine | | | | | | | | microscopy | + + + + + +---+ + | | EPI | Few | /[HPF] | Few | N | epithelial | | | CELL/HPF | | | | | cells, | | | | | | | | urine, per | | | | | | | | | | | | | | | | microscopy | + + + + + +---+ + | | RBCS MICRO | 0-2 | | 0-2 | N | RBC urine | | | U | | | | | by | | | | | | | | microscopy | + + + + + +---+ + | | WBCS MICRO | 0-2 /hpf | {Cells}/[H | 0-5 | N | WBC urine | | | U | | PF] | | | on | | | | | | | | microscopy | + + + + + +---+ + | | BLOOD | Neg | | Neg | N | RBC, | | | URINE | | | | | urine, | | | | | | | | dipstick | + + + + + +---+ + | | BILIRUBIN | Neg | | Neg | N | bilirubin, | | | UR | | | | | urine | + + + + + +---+ + | | UROBILINOG | NORM | | Normal | N | urobilinog | | | EN | | | | | en, urine, | | | | | | | | | | | | | | | | semiquanti | | | | | | | | tative | | | | | | | | (dipstick) | + + + + + +---+ + | | KETONES | Neg | | Neg | N | ketones, | | | URN | | | | | urine, by | | | | | | | | test strip | + + + + + +---+ + | | GLUCOSE, | 1+ | | Neg | H | glucose, | | | URN | | | | | urine, | | | | | | | | semiquanti | | | | | | | | tative | + + + + + +---+ + | | PROTEIN, | 2+ | | Neg | H | Albumin | | | URN | | | | | [Presence] | | | | | | | | in Urine | + + + + + +---+ + | | NITRITE | Neg | | Neg | N | nitrite, | | | URN | | | | | urine, | | | | | | | | semiquanti | | | | | | | | tative | + + + + + +---+ + | | WBC DIPSTK | 1+ | | Neg | H | leukocyte | | | U | | | | | esterase, | | | | | | | | urine, by | | | | | | | | dipstick | + + + + + +---+ + | | PH URINE | 6.0 | | 5.0-8.0 | N | pH, urine, | | | | | | | | | | | | | | | | semiquanti | | | | | | | | tative | + + + + + +---+ + | | SPEC GR | 1.020 | | 1.003-1.02 | N | specific | | | URIN | | | 2 | | gravity, | | | | | | | | urine | + + + + + +---+ + | | APPEARANCE | Clear | | Clear | N | appearance | | | U | | | | | , urine | + + + + + +---+ + | | UA COLOR | Yellow | | P-Yellow | N | urine | | | | | | | | color | + + + + + +---+ + + + | Lab Report: COPY RECEIVED FROM:, IRON AND TOTAL IRON BINDING CAPACITY, F ... | + + + + + +-------+ +---+ + | | B12 | 471 | pg/mL | 200-1100 | N | vitamin | | | | | | | | b12, serum | + + + +-------+ +---+ + | | FOLATE | 12.8 | ng/mL | | N | folate, | | | | | | | | serum | + + + +-------+ +---+ + | | FERRITIN | 1172 | ng/mL | 20-288 | H | ferritin, | | | | | | | | serum | + + + +-------+ +---+ + | | IRON SATUR | 55 % | % | 11-50 | H | iron | | | % | (CALC) | | | | saturation | | | | | | | | percent, | | | | | | | | serum | + + + +-------+ +---+ + | | TIBC | 269 MCG/DL | ug/dL | 250-450 | N | iron | | | | (CALC) | | | | binding | | | | | | | | capacity, | | | | | | | | total | + + + +-------+ +---+ + | | IRON | 149 | ug/dL | 45-160 | N | iron, | | | | | | | | serum | + + + +-------+ +---+ + + + | Lab Report: COPY RECEIVED FROM:, RENAL FUNCTION PANEL | + + + + + + + +---+ + | | ALBUMIN | 3.7 | g/dL | 3.6-5.1 | N | albumin, | | | | | | | | serum | + + + + + +---+ + | | PO4 | 3.5 | mg/dL | 2.1-4.3 | N | phosphate, | | | | | | | | serum | + + + + + +---+ + | | CALCIUM | 8.9 | mg/dL | 8.6-10.4 | N | calcium, | | | | | | | | serum | + + + + + +---+ + | | CO2 | 22 | mmol/L | 20-32 | N | carbon | | | | | | | | dioxide, | | | | | | | | venous | | | | | | | | blood | + + + + + +---+ + | | CHLORIDE | 110 | mmol/L | 98-110 | N | chloride, | | | | | | | | serum | + + + + + +---+ + | | POTASSIUM | 4.6 | mmol/L | 3.5-5.3 | N | potassium, | | | | | | | | serum | + + + + + +---+ + | | SODIUM | 139 | mmol/L | 135-146 | N | sodium, | | | | | | | | serum | + + + + + +---+ + | | BUN/CREAT | 18 (calc) | | 6-22 | N | urea | | | | | | | | nitrogen/c | | | | | | | | reatinine | | | | | | | | ratio, | | | | | | | | serum | + + + + + +---+ + | | EGFR | 25 | mL/min/1.7 | > OR = 60 [...] + +---+ + | | GFRC | 22 | mL/min/1.7 | > OR = 60 [...] + +---+ + | | CREATININE | 2.21 | mg/dL | 0.60-0.93 | H | creatinine | | | | | | | | , serum | + + + + + +---+ + | | BUN | 40 | mg/dL | 7-25 | H | urea | | | | | | | | nitrogen, | | | | | | | | blood | + + + + + +---+ + | | GLUCOSE | 200 | mg/dL | 65-139 | H | blood | | | SER | | | | | glucose | + + + + + +---+ + + + | Lab Report: Urinalysis, Urinalysis, Microscopic | + + + + + + + +---+ + | | GRAN CAST | 2-5 | /[LPF] | 0 | H | granular | | | UR | | | | | casts, | | | | | | | | urine | + + + + + +---+ + | | TRANS CELL | Rare | | 0-Rare | N | transition | | | U | | | | | al | | | | | | | | epithelial | | | | | | | | cells, | | | | | | | | urine, by | | | | | | | | microscopy | + + + + + +---+ + | | MUCUS | Light | | 0-Heavy | N | mucus on | | | URINE | | | | | urinalysis | + + + + + +---+ + | | BACTERIA | Mod | | None | H | bacteria, | | | URN | | | | | urine | | | | | | | | microscopy | + + + + + +---+ + | | EPI | Few | /[HPF] | Few | N | epithelial | | | CELL/HPF | | | | | cells, | | | | | | | | urine, per | | | | | | | | | | | | | | | | microscopy | + + + + + +---+ + | | RBCS MICRO | 0-2 | | 0-2 | N | RBC urine | | | U | | | | | by | | | | | | | | microscopy | + + + + + +---+ + | | WBCS MICRO | 0-2 /hpf | {Cells}/[H | 0-5 | N | WBC urine | | | U | | PF] | | | on | | | | | | | | microscopy | + + + + + +---+ + | | BLOOD | 1+ | | Neg | H | RBC, | | | URINE | | | | | urine, | | | | | | | | dipstick | + + + + + +---+ + | | BILIRUBIN | Neg | | Neg | N | bilirubin, | | | UR | | | | | urine | + + + + + +---+ + | | UROBILINOG | NORM | | Normal | N | urobilinog | | | EN | | | | | en, urine, | | | | | | | | | | | | | | | | semiquanti | | | | | | | | tative | | | | | | | | (dipstick) | + + + + + +---+ + | | KETONES | Neg | | Neg | N | ketones, | | | URN | | | | | urine, by | | | | | | | | test strip | + + + + + +---+ + | | GLUCOSE, | 2+ | | Neg | H | glucose, | | | URN | | | | | urine, | | | | | | | | semiquanti | | | | | | | | tative | + + + + + +---+ + | | PROTEIN, | 2+ | | Neg | H | Albumin | | | URN | | | | | [Presence] | | | | | | | | in Urine | + + + + + +---+ + | | NITRITE | Neg | | Neg | N | nitrite, | | | URN | | | | | urine, | | | | | | | | semiquanti | | | | | | | | tative | + + + + + +---+ + | | WBC DIPSTK | Neg | | Neg | N | leukocyte | | | U | | | | | esterase, | | | | | | | | urine, by | | | | | | | | dipstick | + + + + + +---+ + | | PH URINE | 5.0 | | 5.0-8.0 | N | pH, urine, | | | | | | | | | | | | | | | | semiquanti | | | | | | | | tative | + + + + + +---+ + | | SPEC GR | 1.015 | | 1.003-1.02 | N | specific | | | URIN | | | 2 | | gravity, | | | | | | | | urine | + + + + + +---+ + | | APPEARANCE | Clear | | Clear | N | appearance | | | U | | | | | , urine | + + + + + +---+ + | | UA COLOR | Yellow | | P-Yellow | N | urine | | | | | | | | color | + + + + + +---+ + + + | Lab Report: CBC without Diff (Hemogram) | + + + + + + + +---+ + | | PLATELT(ES | Mod Dec: | | Normal | L | platelet | | | T) | 50-100 | | | | count, | | | | | | | | estimate | + + + + + +---+ + | | NRBCS/100W | [...] | | | leukocytes | + + + + + +---+ + | | MPV | 14.0 | fL | 9.1-12.4 | H | mean | | | | | | | | platelet | | | | | | | | volume | + + + + + +---+ + | | PLATELETS | 90 | 10*3/mm3 | 150-400 | L | platelet | | | | | | | | count | + + + + + +---+ + | | RDW | 14.3 | % | 11.7-14.2 | H | red blood | | | | | | | | cell | | | | | | | | distributi | | | | | | | | on width | + + + + + +---+ + | | RDW-SD | 46.5 | fL | 35.1-46.3 | H | red blood | | | | | | | | cell | | | | | | | | distributi | | | | | | | | on width, | | | | | | | | size | | | | | | | | density | + + + + + +---+ + | | MCHC RBC | 31.6 | g/dL | 31.5-36.5 | N | [...] + + + +---+ + | | MCH | 28.6 | pg | 26.0-34.0 | N | mean | | | | | | | | corpuscula | | | | | | | | r | | | | | | | | hemoglobin | | | | | | | | , RBC | + + + + + +---+ + | | MCV | 91 | fL | 80-100 | N | mean | | | | | | | | corpuscula | | | | | | | | r volume, | | | | | | | | RBC | + + + + + +---+ + | | HCT | 32.3 | % | 33.0-51.0 | L | hematocrit | | | | | | | | , blood | + + + + + +---+ + | | HGB | 10.2 | g/dL | 11.5-16.0 | L | hemoglobin | | | | | | | | , blood | + + + + + +---+ + | | RBC | 3.57 | 10*6/mm3 | 3.80-5.20 | L | erythrocyt | | | | | | | | e (RBC) | | | | | | | | count | + + + + + +---+ + | | WBC | 4.77 | 10*3/mm3 | 4.00-11.30 | N | leukocyte | | | | | | | | count, | | | | | | | | blood | + + + + + +---+ + + + | Lab Report: Comprehensive Metabolic Panel | + + + + +--------+ + +---+ + | | SGPT (ALT) | 51 | U/L | 12-78 | N | alanine | | | | | | | | aminotrans | | | | | | | | ferase | | | | | | | | (SGPT), | | | | | | | | serum | + + +--------+ + +---+ + | | SGOT (AST) | 34 | U/L | 12-37 | N | aspartate | | | | | | | | aminotrans | | | | | | | | ferase | | | | | | | | (SGOT), | | | | | | | | serum | + + +--------+ + +---+ + | | ALK PHOS | 70 | U/L | 50-136 | N | alkaline | | | | | | | | phosphatas | | | | | | | | e, serum | + + +--------+ + +---+ + | | BILI TOTAL | 0.2 | mg/dL | 0.1-1.0 | N | bilirubin, | | | | | | | | serum, | | | | | | | | total | + + +--------+ + +---+ + | | A/G RATIO | 0.8 | | 0.8-1.8 | N | albumin/gl | | | | | | | | obulin | | | | | | | | ratio, | | | | | | | | serum | + + +--------+ + +---+ + | | GLOBULIN | 3.4 | g/dL | 2.2-4.0 | N | globulins, | | | TOT | | | | | serum, | | | | | | | | total | + + +--------+ + +---+ + | | ALBUMIN | 2.6 | g/dL | 3.4-5.0 | L | albumin, | | | | | | | | serum | + + +--------+ + +---+ + | | PROTEIN, | 6.0 | g/dL | 6.4-8.2 | L | protein, | | | TOT | | | | | total, | | | | | | | | serum | + + +--------+ + +---+ + | | CALCIUM | 7.9 | mg/dL | 8.5-10.1 | L | calcium, | | | | | | | | serum | + + +--------+ + +---+ + | | GFRC | 15 (?) | mL/min/1.7 | 60- | L | Glomerular | | | | | 3m2 | | | | | | | | | | | Filtration | | | | | | | | Rate | | | | | | | | Calculatio | | | | | | | | n | + + +--------+ + +---+ + | | BUN/CREAT | 18.9 % | | 12.0-20.0 | N | urea | | | | | | | | nitrogen/c | | | | | | | | reatinine | | | | | | | | ratio, | | | | | | | | serum | + + +--------+ + +---+ + | | CREATININE | 3.17 | mg/dL | 0.40-1.00 | H | creatinine | | | | | | | | , serum | + + +--------+ + +---+ + | | BUN | 60 | mg/dL | 8-24 | H | urea | | | | | | | | nitrogen, | | | | | | | | blood | + + +--------+ + +---+ + | | GLUCOSE | 172 | mg/dL | 70-99 | H | blood | | | SER | | | | | glucose | + + +--------+ + +---+ + | | ANION GAP | 7 | mmol/L | 6-16 | N | anion gap, | | | | | | | | serum | + + +--------+ + +---+ + | | CO2 | 23 | mmol/L | 21-32 | N | carbon | | | | | | | | dioxide, | | | | | | | | venous | | | | | | | | blood | + + +--------+ + +---+ + | | CHLORIDE | 113 | mmol/L | 98-108 | H | chloride, | | | | | | | | serum | + + +--------+ + +---+ + | | POTASSIUM | 4.4 | mmol/L | 3.5-5.5 | N | potassium, | | | | | | | | serum | + + +--------+ + +---+ + | | SODIUM | 143 | mmol/L | 136-145 | N | sodium, | | | | | | | | serum | + + +--------+ + +---+ + + + | Lab Report: Urinalysis, Culture If Indicat, Urinalysis, Microscopic | + + + + + + + +---+ + | | BACTERIA | Mod | | None | H | bacteria, | | | URN | | | | | urine | | | | | | | | microscopy | + + + + + +---+ + | | EPI | Mod | /[HPF] | Few | H | epithelial | | | CELL/HPF | | | | | cells, | | | | | | | | urine, per | | | | | | | | | | | | | | | | microscopy | + + + + + +---+ + | | RBCS MICRO | 25-50 | | 0-2 | H | RBC urine | | | U | | | | | by | | | | | | | | microscopy | + + + + + +---+ + | | WBCS MICRO | 2-5 /hpf | {Cells}/[H | 0-5 | N | WBC urine | | | U | | PF] | | | on | | | | | | | | microscopy | + + + + + +---+ + | | BLOOD | 4+ | | Neg | H | RBC, | | | URINE | | | | | urine, | | | | | | | | dipstick | + + + + + +---+ + | | BILIRUBIN | 2+ | | Neg | H | bilirubin, | | | UR | | | | | urine | + + + + + +---+ + | | UROBILINOG | NORM | | Normal | N | urobilinog | | | EN | | | | | en, urine, | | | | | | | | | | | | | | | | semiquanti | | | | | | | | tative | | | | | | | | (dipstick) | + + + + + +---+ + | | KETONES | 1+ | | Neg | H | ketones, | | | URN | | | | | urine, by | | | | | | | | test strip | + + + + + +---+ + | | GLUCOSE, | Neg | | Neg | N | glucose, | | | URN | | | | | urine, | | | | | | | | semiquanti | | | | | | | | tative | + + + + + +---+ + | | PROTEIN, | 2+ | | Neg | H | Albumin | | | URN | | | | | [Presence] | | | | | | | | in Urine | + + + + + +---+ + | | NITRITE | Neg | | Neg | N | nitrite, | | | URN | | | | | urine, | | | | | | | | semiquanti | | | | | | | | tative | + + + + + +---+ + | | WBC DIPSTK | 1+ | | Neg | H | leukocyte | | | U | | | | | esterase, | | | | | | | | urine, by | | | | | | | | dipstick | + + + + + +---+ + | | PH URINE | 5.0 | | 5.0-8.0 | N | pH, urine, | | | | | | | | | | | | | | | | semiquanti | | | | | | | | tative | + + + + + +---+ + | | SPEC GR | 1.020 | | 1.003-1.02 | N | specific | | | URIN | | | 2 | | gravity, | | | | | | | | urine | + + + + + +---+ + | | APPEARANCE | Clear | | Clear | N | appearance | | | U | | | | | , urine | + + + + + +---+ + | | UA COLOR | Yellow | | P-Yellow | N | urine | | | | | | | | color | + + + + + +---+ + + + | Lab Report: Toxicology Screen, Urine | + + + + + +---+---+---+ + | | PROPOX | Not | | | N | propoxyphe | | | SCRN | Detected | | | | ne screen, | | | | | | | | urine | + + + +---+---+---+ + | | OXYCODONE | Not | | | N | Oxycodone | | | | Detected | | | | urine | | | | | | | | screening | + + + +---+---+---+ + | | TRICYCLIC | Not | | | N | tricyclic | | | UR | Detected | | | | antidrepre | | | | | | | | ssants, | | | | | | | | urine | + + + +---+---+---+ + | | CANNABIN, | Not | | | N | cannabinoi | | | UR | Detected | | | | ds, urine | + + + +---+---+---+ + | | PHENCY SCR | Not | | | N | phencyclid | | | U | Detected | | | | ine | | | | | | | | screen, | | | | | | | | urine | + + + +---+---+---+ + | | OPIATE | Not | | | N | opiate | | | URINE | Detected | | | | screen, | | | | | | | | urine | + + + +---+---+---+ + | | METHADONEU | Not | | | N | Methadone | | | RN | Detected | | | | screen, | | | | | | | | urine | + + + +---+---+---+ + | | COCAINE UR | Not | | | N | cocaine, | | | | Detected | | | | urine | + + + +---+---+---+ + | | BENZODIAZ | Not | | | N | benzodiaze | | | UR | Detected | | | | pine | | | | | | | | screen, | | | | | | | | urine | + + + +---+---+---+ + | | BARBITURA | Not | | | N | barbiturat | | | UR | Detected | | | | es screen, | | | | | | | | urine | + + + +---+---+---+ + | | METHAMP | Not | | | N | methamphet | | | SCR | Detected | | | | amine | | | | | | | | screen, | | | | | | | | urine | + + + +---+---+---+ + | | AMPHETAMI | Not | | | N | amphetamin | | | UR | Detected | | | | e screen, | | | | | | | | urine | + + + +---+---+---+ + + + | Lab Report: Lactate (Lactic Acid), Blood | + + + + +-----+--------+---------+---+ + | | LACTATE | 1.3 | mmol/L | 0.4-2.0 | N | lactate, | | | BLD | | | | | blood | + + +-----+--------+---------+---+ + + + | Lab Report: CBC with Auto Diff | + + + + + + + +---+ + | | PLATELT(ES | Mod Dec: | | Normal | L | platelet | | | T) | 50-100 | | | | count, | | | | | | | | estimate | + + + + + +---+ + | | ABSOLUTE | 0.02 | 10*3/uL | 0.00-0.23 | N | Absolute | | | BAS | | | | | Basophils | + + + + + +---+ + | | EOS ABSLT | 0.29 | 10*3/uL | 0.00-0.68 | N | Eosinophil | | | | | | | | Absolute | | | | | | | | Count | + + + + + +---+ + | | ABSOLUTE | 0.50 | 10*3/uL | 0.16-1.47 | N | Absolute | | | MON | | | | | Monocytes | + + + + + +---+ + | | LYMPHOCYTA | 0.95 | 10*3/uL | 0.84-5.20 | N | lymphocyte | | | BS | | | | | s, | | | | | | | | absolute | + + + + + +---+ + | | ANC | 4.38 | 10*3/mm3 | 1.96-9.15 | N | neutrophil | | | | | | | | count, | | | | | | | | blood | + + + + + +---+ + | | NRBCS/100W | [...] | | | leukocytes | + + + + + +---+ + | | IMM GRANU [...] + + + +---+ + | | BASOPHIL % | 0 | % | 0-2 | N | basophils | | | | | | | | as percent | | | | | | | | of blood | | | | | | | | leukocytes | + + + + + +---+ + | | EOSINOPHIL | 5 | % | 0-6 | N | eosinophil | | | % | | | | | s as | | | | | | | | percent of | | | | | | | | blood | | | | | | | | leukocytes | + + + + + +---+ + | | MONOCYTE % | 8 | % | 4-13 | N | monocytes | | | | | | | | as percent | | | | | | | | of blood | | | | | | | | leukocytes | + + + + + +---+ + | | LYMPHS % | 15 | % | 21-46 | L | lymphocyte | | | | | | | | s as | | | | | | | | percent of | | | | | | | | blood | | | | | | | | leukocytes | + + + + + +---+ + | | PMN % | 71 | % | 41-73 | N | neutrophil | | | | | | | | s as | | | | | | | | percent of | | | | | | | | blood | | | | | | | | leukocytes | + + + + + +---+ + | | MPV | 13.2 | fL | 9.1-12.4 | H | mean | | | | | | | | platelet | | | | | | | | volume | + + + + + +---+ + | | PLATELETS | 99 | 10*3/mm3 | 150-400 | L | platelet | | | | | | | | count | + + + + + +---+ + | | RDW | 14.3 | % | 11.7-14.2 | H | red blood | | | | | | | | cell | | | | | | | | distributi | | | | | | | | on width | + + + + + +---+ + | | RDW-SD | 47.6 | fL | 35.1-46.3 | H | red blood | | | | | | | | cell | | | | | | | | distributi | | | | | | | | on width, | | | | | | | | size | | | | | | | | density | + + + + + +---+ + | | MCHC RBC | 32.0 | g/dL | 31.5-36.5 | N | [...] + + + +---+ + | | MCH | 29.4 | pg | 26.0-34.0 | N | mean | | | | | | | | corpuscula | | | | | | | | r | | | | | | | | hemoglobin | | | | | | | | , RBC | + + + + + +---+ + | | MCV | 92 | fL | 80-100 | N | mean | | | | | | | | corpuscula | | | | | | | | r volume, | | | | | | | | RBC | + + + + + +---+ + | | HCT | 36.9 | % | 33.0-51.0 | N | hematocrit | | | | | | | | , blood | + + + + + +---+ + | | HGB | 11.8 | g/dL | 11.5-16.0 | N | hemoglobin | | | | | | | | , blood | + + + + + +---+ + | | RBC | 4.01 | 10*6/mm3 | 3.80-5.20 | N | erythrocyt | | | | | | | | e (RBC) | | | | | | | | count | + + + + + +---+ + | | WBC | 6.16 | 10*3/mm3 | 4.00-11.30 | N | leukocyte | | | | | | | | count, | | | | | | | | blood | + + + + + +---+ + + + | Lab Report: Comprehensive Metabolic Panel, Ethanol (Alcohol), Blood, Med | + + + + +--------+ + +---+ + | | ALCOHOL, | <3 | mg/dL | | N | alcohol, | | | BLD | | | | | blood | + + +--------+ + +---+ + | | SGPT (ALT) | 62 | U/L | 12-78 | N | alanine | | | | | | | | aminotrans | | | | | | | | ferase | | | | | | | | (SGPT), | | | | | | | | serum | + + +--------+ + +---+ + | | SGOT (AST) | 44 | U/L | 12-37 | H | aspartate | | | | | | | | aminotrans | | | | | | | | ferase | | | | | | | | (SGOT), | | | | | | | | serum | + + +--------+ + +---+ + | | ALK PHOS | 83 | U/L | 50-136 | N | alkaline | | | | | | | | phosphatas | | | | | | | | e, serum | + + +--------+ + +---+ + | | BILI TOTAL | 0.2 | mg/dL | 0.1-1.0 | N | bilirubin, | | | | | | | | serum, | | | | | | | | total | + + +--------+ + +---+ + | | A/G RATIO | 0.9 | | 0.8-1.8 | N | albumin/gl | | | | | | | | obulin | | | | | | | | ratio, | | | | | | | | serum | + + +--------+ + +---+ + | | GLOBULIN | 3.7 | g/dL | 2.2-4.0 | N | globulins, | | | TOT | | | | | serum, | | | | | | | | total | + + +--------+ + +---+ + | | ALBUMIN | 3.2 | g/dL | 3.4-5.0 | L | albumin, | | | | | | | | serum | + + +--------+ + +---+ + | | PROTEIN, | 6.9 | g/dL | 6.4-8.2 | N | protein, | | | TOT | | | | | total, | | | | | | | | serum | + + +--------+ + +---+ + | | CALCIUM | 8.7 | mg/dL | 8.5-10.1 | N | calcium, | | | | | | | | serum | + + +--------+ + +---+ + | | GFRC | 11 (?) | mL/min/1.7 | 60- | L | Glomerular | | | | | 3m2 | | | | | | | | | | | Filtration | | | | | | | | Rate | | | | | | | | Calculatio | | | | | | | | n | + + +--------+ + +---+ + | | BUN/CREAT | 15.8 % | | 12.0-20.0 | N | urea | | | | | | | | nitrogen/c | | | | | | | | reatinine | | | | | | | | ratio, | | | | | | | | serum | + + +--------+ + +---+ + | | CREATININE | 4.23 | mg/dL | 0.40-1.00 | H | creatinine | | | | | | | | , serum | + + +--------+ + +---+ + | | BUN | 67 | mg/dL | 8-24 | H | urea | | | | | | | | nitrogen, | | | | | | | | blood | + + +--------+ + +---+ + | | GLUCOSE | 72 | mg/dL | 70-99 | N | blood | | | SER | | | | | glucose | + + +--------+ + +---+ + | | ANION GAP | 12 | mmol/L | 6-16 | N | anion gap, | | | | | | | | serum | + + +--------+ + +---+ + | | CO2 | 21 | mmol/L | 21-32 | N | carbon | | | | | | | | dioxide, | | | | | | | | venous | | | | | | | | blood | + + +--------+ + +---+ + | | CHLORIDE | 110 | mmol/L | 98-108 | H | chloride, | | | | | | | | serum | + + +--------+ + +---+ + | | POTASSIUM | 3.5 | mmol/L | 3.5-5.5 | N | potassium, | | | | | | | | serum | + + +--------+ + +---+ + | | SODIUM | 143 | mmol/L | 136-145 | N | sodium, | | | | | | | | serum | + + +--------+ + +---+ + + + | Lab Report: Prothrombin Time | + + + + +------+---+ +---+ + | | INR | 0.99 | | | N | internatio | | | | | | | | nal | | | | | | | | normalized | | | | | | | | ratio | | | | | | | | (INR) | + + +------+---+ +---+ + | | PT PATIENT | 10.2 | s | 9.7-11.5 | N | prothrombi | | | | | | | | n time | | | | | | | | (patient) | + + +------+---+ +---+ + + + | Lab Report: (P) Urinalysis, Culture If Indicat | + + + + +--------+---+ +---+ + | | BLOOD | Neg | | Neg | N | RBC, | | | URINE | | | | | urine, | | | | | | | | dipstick | + + +--------+---+ +---+ + | | BILIRUBIN | Neg | | Neg | N | bilirubin, | | | UR | | | | | urine | + + +--------+---+ +---+ + | | UROBILINOG | NORM | | Normal | N | urobilinog | | | EN | | | | | en, urine, | | | | | | | | | | | | | | | | semiquanti | | | | | | | | tative | | | | | | | | (dipstick) | + + +--------+---+ +---+ + | | KETONES | Neg | | Neg | N | ketones, | | | URN | | | | | urine, by | | | | | | | | test strip | + + +--------+---+ +---+ + | | GLUCOSE, | 3+ | | Neg | H | glucose, | | | URN | | | | | urine, | | | | | | | | semiquanti | | | | | | | | tative | + + +--------+---+ +---+ + | | PROTEIN, | 1+ | | Neg | H | Albumin | | | URN | | | | | [Presence] | | | | | | | | in Urine | + + +--------+---+ +---+ + | | NITRITE | Neg | | Neg | N | nitrite, | | | URN | | | | | urine, | | | | | | | | semiquanti | | | | | | | | tative | + + +--------+---+ +---+ + | | WBC DIPSTK | 1+ | | Neg | H | leukocyte | | | U | | | | | esterase, | | | | | | | | urine, by | | | | | | | | dipstick | + + +--------+---+ +---+ + | | PH URINE | 5.0 | | 5.0-8.0 | N | pH, urine, | | | | | | | | | | | | | | | | semiquanti | | | | | | | | tative | + + +--------+---+ +---+ + | | SPEC GR | 1.010 | | 1.003-1.02 | N | specific | | | URIN | | | 2 | | gravity, | | | | | | | | urine | + + +--------+---+ +---+ + | | APPEARANCE | Clear | | Clear | N | appearance | | | U | | | | | , urine | + + +--------+---+ +---+ + | | UA COLOR | Yellow | | P-Yellow | N | urine | | | | | | | | color | + + +--------+---+ +---+ + + + | Lab Report: Urinalysis, Culture If Indicat, Urinalysis, Microscopic | + + + + + + +------+---+ + | | BACTERIA | Many | | None | H | bacteria, [...] + + +------+---+ + + + | Lab Report: CBC with Auto Diff | + + + + + + + +---+ + | | PLATELT(ES | Mod Dec: | | Normal | L | platelet | | | T) | 50-100 | | | | count, | | | | | | | | estimate | + + + + + +---+ + | | ABSOLUTE | 0.01 | 10*3/uL | 0.00-0.23 | N | Absolute | | | BAS | | | | | Basophils | + + + + + +---+ + | | EOS ABSLT | 0.38 | 10*3/uL | 0.00-0.68 | N | Eosinophil | | | | | | | | Absolute | | | | | | | | Count | + + + + + +---+ + | | ABSOLUTE | 0.39 | 10*3/uL | 0.16-1.47 | N | Absolute | | | MON | | | | | Monocytes | + + + + + +---+ + | | LYMPHOCYTA | 0.99 | 10*3/uL | 0.84-5.20 | N | lymphocyte | | | BS | | | | | s, | | | | | | | | absolute | + + + + + +---+ + | | ANC | 3.43 | 10*3/mm3 | 1.96-9.15 | N | neutrophil | | | | | | | | count, | | | | | | | | blood | + + + + + +---+ + | | NRBCS/100W | [...] | | | leukocytes | + + + + + +---+ + | | IMM GRANU [...] + + + +---+ + | | BASOPHIL % | 0 | % | 0-2 | N | basophils | | | | | | | | as percent | | | | | | | | of blood | | | | | | | | leukocytes | + + + + + +---+ + | | EOSINOPHIL | 7 | % | 0-6 | H | eosinophil | | | % | | | | | s as | | | | | | | | percent of | | | | | | | | blood | | | | | | | | leukocytes | + + + + + +---+ + | | MONOCYTE % | 8 | % | 4-13 | N | monocytes | | | | | | | | as percent | | | | | | | | of blood | | | | | | | | leukocytes | + + + + + +---+ + | | LYMPHS % | 19 | % | 21-46 | L | lymphocyte | | | | | | | | s as | | | | | | | | percent of | | | | | | | | blood | | | | | | | | leukocytes | + + + + + +---+ + | | PMN % | 66 | % | 41-73 | N | neutrophil | | | | | | | | s as | | | | | | | | percent of | | | | | | | | blood | | | | | | | | leukocytes | + + + + + +---+ + | | MPV | 13.7 | fL | 9.1-12.4 | H | mean | | | | | | | | platelet | | | | | | | | volume | + + + + + +---+ + | | PLATELETS | 97 | 10*3/mm3 | 150-400 | L | platelet | | | | | | | | count | + + + + + +---+ + | | RDW | 14.0 | % | 11.7-14.2 | N | red blood | | | | | | | | cell | | | | | | | | distributi | | | | | | | | on width | + + + + + +---+ + | | RDW-SD | 46.5 | fL | 35.1-46.3 | H | red blood | | | | | | | | cell | | | | | | | | distributi | | | | | | | | on width, | | | | | | | | size | | | | | | | | density | + + + + + +---+ + | | MCHC RBC | 31.8 | g/dL | 31.5-36.5 | N | [...] + + + +---+ + | | MCH | 29.0 | pg | 26.0-34.0 | N | mean | | | | | | | | corpuscula | | | | | | | | r | | | | | | | | hemoglobin | | | | | | | | , RBC | + + + + + +---+ + | | MCV | 91 | fL | 80-100 | N | mean | | | | | | | | corpuscula | | | | | | | | r volume, | | | | | | | | RBC | + + + + + +---+ + | | HCT | 36.8 | % | 33.0-51.0 | N | hematocrit | | | | | | | | , blood | + + + + + +---+ + | | HGB | 11.7 | g/dL | 11.5-16.0 | N | hemoglobin | | | | | | | | , blood | + + + + + +---+ + | | RBC | 4.03 | 10*6/mm3 | 3.80-5.20 | N | erythrocyt | | | | | | | | e (RBC) | | | | | | | | count | + + + + + +---+ + | | WBC | 5.22 | 10*3/mm3 | 4.00-11.30 | N | leukocyte | | | | | | | | count, | | | | | | | | blood | + + + + + +---+ + + + | Lab Report: Comprehensive Metabolic Panel, Troponin I | + + + + +--------+ + +---+ + | | TROPONIN I | <0.015 | ng/mL | 0.000-0.04 | N | troponin I | | | | | | 0 | | | + + +--------+ + +---+ + | | SGPT (ALT) | 64 | U/L | 12-78 | N | alanine | | | | | | | | aminotrans | | | | | | | | ferase | | | | | | | | (SGPT), | | | | | | | | serum | + + +--------+ + +---+ + | | SGOT (AST) | 53 | U/L | 12-37 | H | aspartate | | | | | | | | aminotrans | | | | | | | | ferase | | | | | | | | (SGOT), | | | | | | | | serum | + + +--------+ + +---+ + | | ALK PHOS | 139 | U/L | 50-136 | H | alkaline | | | | | | | | phosphatas | | | | | | | | e, serum | + + +--------+ + +---+ + | | BILI TOTAL | 0.3 | mg/dL | 0.1-1.0 | N | bilirubin, | | | | | | | | serum, | | | | | | | | total | + + +--------+ + +---+ + | | A/G RATIO | 0.8 | | 0.8-1.8 | N | albumin/gl | | | | | | | | obulin | | | | | | | | ratio, | | | | | | | | serum | + + +--------+ + +---+ + | | GLOBULIN | 4.0 | g/dL | 2.2-4.0 | N | globulins, | | | TOT | | | | | serum, | | | | | | | | total | + + +--------+ + +---+ + | | ALBUMIN | 3.3 | g/dL | 3.4-5.0 | L | albumin, | | | | | | | | serum | + + +--------+ + +---+ + | | PROTEIN, | 7.3 | g/dL | 6.4-8.2 | N | protein, | | | TOT | | | | | total, | | | | | | | | serum | + + +--------+ + +---+ + | | CALCIUM | 9.1 | mg/dL | 8.5-10.1 | N | calcium, | | | | | | | | serum | + + +--------+ + +---+ + | | GFRC | 23 (?) | mL/min/1.7 | 60- | L | Glomerular | | | | | 3m2 | | | | | | | | | | | Filtration | | | | | | | | Rate | | | | | | | | Calculatio | | | | | | | | n | + + +--------+ + +---+ + | | BUN/CREAT | 23.8 % | | 12.0-20.0 | H | urea | | | | | | | | nitrogen/c | | | | | | | | reatinine | | | | | | | | ratio, | | | | | | | | serum | + + +--------+ + +---+ + | | CREATININE | 2.23 | mg/dL | 0.40-1.00 | H | creatinine | | | | | | | | , serum | + + +--------+ + +---+ + | | BUN | 53 | mg/dL | 8-24 | H | urea | | | | | | | | nitrogen, | | | | | | | | blood | + + +--------+ + +---+ + | | GLUCOSE | 318 | mg/dL | 70-99 | H | blood | | | SER | | | | | glucose | + + +--------+ + +---+ + | | ANION GAP | 10 | mmol/L | 6-16 | N | anion gap, | | | | | | | | serum | + + +--------+ + +---+ + | | CO2 | 23 | mmol/L | 21-32 | N | carbon | | | | | | | | dioxide, | | | | | | | | venous | | | | | | | | blood | + + +--------+ + +---+ + | | CHLORIDE | 107 | mmol/L | 98-108 | N | chloride, | | | | | | | | serum | + + +--------+ + +---+ + | | POTASSIUM | 4.0 | mmol/L | 3.5-5.5 | N | potassium, | | | | | | | | serum | + + +--------+ + +---+ + | | SODIUM | 140 | mmol/L | 136-145 | N | sodium, | | | | | | | | serum | + + +--------+ + +---+ + Plan of Care + + + + | Type | Date | Detail | + + + + | Appointment | 01:00 PM | Hector Armendariz DP, [address] | | | | Souleymane Gamitchel [facility] [address], | | | | [place], [address], | | | | | + + + + | Appointment | 02:15 PM | Ambrose Pascual DNP [facility], [address] | | | | [facility] [address], | | | | [place], [address], | | | | | + + + + | Referral | | Ophthalmology Consult | | | | Huong Rose, | | | | [facility], [place], | | | | [place], [address] | | | | | + + + + | Referral | | Ophthalmology Consult | | | | Huong Rose, | | | | [address], [place], | | | | [place], [address] | | | | | + + + + | Referral | | Orthopedic Consult | | | | [facility] [place] [facility] | | | | Surg, [address], | | | | [place], [address] | | | | | + + + + | Referral | | Physical Therapy Evaluation | | | | [facility], [address] | | | | [address] [facility] | | | | [address], [place], [address] | | | | | | | | | + + + + | Referral | | Physical Therapy Evaluation | | | | [facility], [address] | | | | [address] | | | | [address], [place], [address] | | | | | | | | | + + + + | Referral | | Podiatry Consult | | | | Hectorrenetta Armendariz, | | | | [address] [facility] | | | | [address], [place], [place], | | | | [address] | | | | | + + + + | Referral | | Podiatry Consult | | | | Hector Armendariz, | | | | [address] [facility] | | | | [address], [place], [place], | | | | [address] | | | | | + + + + | Referral | | Ophthalmology Consult | | | | Huong Rose, | | | | [address], [place], | | | | [place], [address] | | | | | + + + + | Referral | | Nephrology Evaluation | | | | Larry Galo, | | | | [address], | | | | [address], [place], [address] | | | | | | | | | + + + + | Referral | | Nephrology Evaluation | | | | Larry Galo, | | | | [address], | | | | [address], [place], [address] | | | | | | | | | + + + + | Referral | | Ophthalmology Consult | | | | Huong Rose, | | | | [address], [place], | | | | [place], [address] | | | | | + + + + | Referral | | JUAN FRANCISCO [facility]s-[facility] Leigh | | | | Dian Atkins, [address] | | | [address], | | | | [place], [address] | | | | | + + + + +---+ + | | Referral excluded from report: | +---+ + + + + + | Referral | | [facility] | | | | Dian Atkins, [address] | | | | [address] [facility], | | | | [place], [address] | | | | | + + [...] + + | Pending order | | Microalbumin, Random Urine | + + + + | Pending order | | Glyco Hemoglobin, A1C | + + + + | Pending order | | Lipid Profile | + + + + | Patient education | | type%[id number]%20in%20 | | | | adults | + + + + Procedures + + + + + | Code | Procedure Name | Date | Entry Date | + + + + + | [id number] | Overweight | | | + + + + + | CPT-75646 | Glucose by monitor | | | + + + + + | [id number] | Overweight | | | + + + + + | CPT-33171 | UA Dipstick | | | + + + + + | CPT-66990 17465 | XR Knee WgtB Bilat | | | | | AP W 1-2V-Rt | | | + + + + + | [id number] | Overweight | | | + + + + + | CPT-54658 | Adm 1st Inj No | | | | | counseling or >18 | | | + + + + + | CPT-80825 | Prevnar 13 | | | | | (Pneumococcal >7 | | | + + + + + | [id number] | Overweight | | | + + + + + | CPT-13555 | Glucose by monitor | | | + + + + + | [id number] | Overweight | | | + + + + + | [id number] | Overweight | | | + + + + + | [id number] | Overweight | | | + + + + + | CPT-81877 | IV infusion -1st hr | | | | | (Rehydration) | | | + + + + + | CPT-83507 | Glucose by monitor | | | + + + + + | CPT-45881 | UA Dipstick | | | + + + + + | CPT-66122 | UA Dipstick | | | + + + + + | CPT-17629 | Initial Psych | | | | | Evaluation | | | + + + + + +---+ + | | Order excluded from report: | +---+ + + + + + + | VIT D HYDR 11533 | Vit D, 25 hydroxy | | [...] + | | BMI (Body Mass | 31.37 | kg/m2 | Body Mass Index | [...] +-------+---------+ + | | BP Systolic | 120 | mm[Hg] | blood pressure, | | | | | | systolic | + + +-------+---------+ + | | BP Systolic | 120 | mm[Hg] | blood pressure, | | | | | | systolic, | | | | | | second | | | | | | observation | + + +-------+---------+ + | | Body | 97.3 | [degF] | temperature E&M | | | Temperature | | | | + + +-------+---------+ + | | Heart Rate | 80 | /min | pulse rate E&M | + + +-------+---------+ + | | Respiratory | 14 | /min | respiratory | | | Rate | | | rate E&M | + + +-------+---------+ + | | Weight Measured | 165.4 | [lb_av] | weight E&M | + + +-------+---------+ + | | BMI (Body Mass | 31.86 | kg/m2 | Body Mass Index | | | Index) | | | [Ratio] | + + +-------+---------+ + | | BP Diastolic | 78 | mm[Hg] | blood pressure, | | | | | | diastolic | + + +-------+---------+ + | | BP Diastolic | 78 | mm[Hg] | blood pressure, | | | | | | diastolic, | | | | | | second | | | | | | observation | + + +-------+---------+ + | | BP Systolic | 138 | mm[Hg] | blood pressure, | | | | | | systolic | + + +-------+---------+ + | | BP Systolic | 138 | mm[Hg] | blood pressure, | | | | | | systolic, | | | | | | second | | | | | | observation | + + +-------+---------+ + | | Body | 97.4 | [degF] | temperature E&M | | | Temperature | | | | + + +-------+---------+ + | | Heart Rate | 85 | /min | pulse rate E&M | + + +-------+---------+ + | | Respiratory | 16 | /min | respiratory | | | Rate | | | rate E&M | + + +-------+---------+ + | | Weight Measured | 168 | [lb_av] | weight E&M | + [...] | Alcohol use | ETOH USE | previous | | | + + + +-------+ +
--- OUTSIDE RECORDS SUMMARY | ~2019-03-25 | XMS ---
Demographics + + + | Address | [address] [place] [address] | | | [place] [address] | + + + | Home Phone | | + + + | Preferred Language | Unknown | + + + | Marital Status | D | + + + | Voodoo Affiliation | Unknown | + + + | Race | White | + + + | Ethnic Group | or | + + + Author + + + | Author | [facility] | + + + | Organization | [facility] | + + + | Address | [address] | | | [place] [address] | + + + | Phone | Unavailable | + + + Care Team Providers + + + + | Care Drying Oven Attendant Name | Role | Phone | + + + + Unavailable | Unavailable | + + + + Reason for Visit + + + | Reason For Visit Description | Start Date | + + + | General Notes | | + + + | | Impression & Plan Problem 1: TYPE | | | 2 DIABETES MELLITUS WITH HYPERGLYCEMIA | | | (RMU61-F72.65) Related | | | Problem: TYPE 2 DIABETES MELLITUS WITH | | | DIABETIC NEPHROPATHY (ICD-250.40) | | | (OIV71-P66.21) Related | | | Problem: DIABETES MELLITUS- TYPE II | | | WITH PERIPHERAL NEUROPATHY- UNCONTROLLED | | | (ICD-250.62) (WYA94-Y16.40) Pt is in | | | better control of her diabetes now that | | | she has her medications. We are working | | | hard to keep her in good supply. She has | | | been directed to call the clinic if she | | | ever cannot get medications appropriately. | | | Card with contact information of the | | | clinic again given to pt. Will also | | | increase her basaglar insulin as she is | | | not quite down far enough with her fasting | | | glucoses. She does not have any episodes | | | of hypoglycemia to report at the current | | | dosing. She is directed to come back into | | | the office if she begins to develop any | | | complications with this new regimen. | | | Otherwise she will be seen in 2 months | | | again with a check of her A1C. | | | Basaglar kwikpen 100 unit/ml subcutaneous | | | solution pen-injec 68 Units every morning | | | (34 units on each side), Novolog 100 | | | unit/ml subcutaneous solution 12 Units | | | before meals SS:150-175:2U;176-200:4U; | | | 201-250: 6U; 251-300: 8U; If greater than | | | 300 please call provider, Glipizide xl 2.5 | | | mg oral tablet extended release 24 hour | | | Take 1 tablet p.o. q.a.m., Lyrica 100 mg | | | oral capsule 1 capsule three times daily | | | for neuropathy | | | ........................ Problem 2: | | | OSTEOARTHRITIS- KNEE- RIGHT (ICD-715.96) | | | (DFW68-R47.9) Pt has been referred to | | | physical therapy for futher strengthening | | | and stretching exercises. | | | ........................ Med List: | | | (Reconciled) BASAGLAR KWIKPEN 100 UNIT/ML | | | SUBCUTANEOUS SOLUTION PEN-INJEC (INSULIN | | | GLARGINE) 68 Units every morning (34 units | | | on each side) VALSARTAN 160 MG ORAL | | | TABLET (VALSARTAN) Take one tablet daily | | | in the AM LIPITOR 20 MG ORAL TABLET | | | (ATORVASTATIN CALCIUM) take 1 tablet by | | | mouth daily in the evening PLAVIX 75 MG | | | ORAL TABLET (CLOPIDOGREL BISULFATE) 1 tab | | | by mouth one time per day in the evening | | | OMEPRAZOLE 40 MG ORAL CAPSULE DELAYED | | | RELEASE (OMEPRAZOLE) Take one by mouth one | | | time per day 30-60 minutes before | | | breakfast as needed | | | NYSTATIN-TRIAMCINOLONE 853331-2.1 | | | UNIT/GM-% EXTERNAL CREAM | | | (NYSTATIN-TRIAMCINOLONE) Apply thin layer | | | to affected area BID prn for itching | | | LASIX 80 MG ORAL TABLET (FUROSEMIDE) 1 tab | | | by mouth one time per day in the AM | | | POTASSIUM CHLORIDE ER 10 MEQ ORAL CAPSULE | | | EXTENDED RELEASE (POTASSIUM CHLORIDE) Take | | | one cap daily in the AM VITAMIN D 1000 | | | UNIT ORAL TABLET (CHOLECALCIFEROL) Take | | | one tablet daily in the AM BIOTIN 1 MG | | | ORAL CAPSULE (BIOTIN) Take one daily in | | | the AM COLACE 100 MG ORAL CAPSULE | | | (DOCUSATE SODIUM) 1 pill twice daily for | | | soft stools MECLIZINE HCL 25 MG ORAL | | | TABLET (MECLIZINE HCL) One tab by mouth | | | three times per day NOVOLOG 100 UNIT/ML | | | SUBCUTANEOUS SOLUTION (INSULIN ASPART) 12 | | | Units before meals | | | SS:150-175:2U,176-200:4U, 201-250: 6U, | | | 251-300: 8U, If greater than 300 please | | | call provider GLIPIZIDE XL 2.5 MG ORAL | | | TABLET EXTENDED RELEASE 24 HOUR | | | (GLIPIZIDE) Take 1 tablet p.o. q.a.m. | | | PANTOPRAZOLE SODIUM 40 MG ORAL TABLET | | | DELAYED RELEASE (PANTOPRAZOLE SODIUM) Take | | | one tablet by mouth once daily | | | CLONAZEPAM 0.5 MG ORAL TABLET (CLONAZEPAM) | | | Take one tablet every 24 hours as needed | | | for anxiety PROMETHAZINE HCL 25 MG ORAL | | | TABLET (PROMETHAZINE HCL) Take one tablet | | | by mouth every 4 hours as needed for | | | nausea and vomiting LYRICA 100 MG ORAL | | | CAPSULE (PREGABALIN) 1 capsule three times | | | daily for neuropathy MIRALAX ORAL POWDER | | | (POLYETHYLENE GLYCOL 3350) 17 gm daily | | | stirred into 4-8 ounces of water, juice or | | | other liquid Allergy List: (Reviewed) | | | VICODIN (Critical) MORPHINE (Critical) | | | * CIPRO IV (Critical) * MECLIZINE | | | (Moderate) LISINOPRIL (Moderate) | | | Meaningful Use Med List: (Reconciled) | | | HPI Chronic A 72-year-old female | | | non-smoker here for f/u DM. Daughter | | | states her sugars were out of control | | | because she ran out of Novolog, but as | | | soon as she got it back on board her | | | sugars became under better control. Today | | | BS is 254 two hours postprandial. | | | Reports right knee pain has been worse | | | lately. Having difficulty | | | ambulating................................ | | | ....................................Edna | | | Hope CCMA September 23, 2017 4:39 PM | | | 72-year-old female non-smoker here for f/u | | | DM. Daughter states her sugars were out | | | of control because she ran out of [employer], | | | but as soon as she got it back on board | | | her sugars became under better control. | | | Today BS is 254 two hours postprandial. | | | Reports right knee pain has been worse | | | lately. Having difficulty ambulating. Her | | | knee pops and sometimes almost locks up on | | | her. | | | .......................................... | | | .........................Ambrose Pascual DNP | | | TRAINING INTERN September 23, 2017 4:53 PM | | | Diabetes: Glucoses are running in the high | | | 100s to low 200s recently. Taking | | | between 16-20 units of insulin with meals. | | | The patient's compliance with the | | | treatment plan is good. The | | | patient's compliance with the diet | | | management plan is good. The patient's | | | average fasting blood sugar is 180. | | | Previous HgbA1c: 8.8 % 08/27/2017 High | | | Previous Microalb Urn: 168.000 mg/L | | | 04/12/2017 High Medical History | | | Type 2 diabetes mellitus, probably | | | diagnosed in her 40s. Initial oral agent | | | therapy with Amaryl and possibly | | | metformin, details somewhat vague. She | | | has been on insulin for many years, | | | currently with Lantus/Basaglar and a.c. | | | meal Humalog Peripheral neuropathy, | | | painful, initially treated with gabapentin | | | but now reasonable results with p.r.n. | | | Lyrica Diabetic retinopathy with multiple | | | interventions Diabetic nephropathy with | | | renal insufficiency Hypertension, treated | | | Hyperlipidemia Hx of abnormal pap | | | Anemia Swelling Feet/Ankles Stroke | | | Memory loss Surgical History 3 | | | surgeries b/l eye Bladder lift | | | Hysterectomy rt knee repair Low back x | | | 2 colonscopy 05/10, Dr. Clark, repeat | | | 2019 Family History: Family History | | | reviewed during this update. Family | | | History of Hypertension - Mother (biol.): | | | - 08/26/2015 8:14:25 AM Family History of | | | Hypertension - Father (biol.): - | | | 08/26/2015 8:14:31 AM Family Hx General | | | Comments: Father (D) Diabetes, Heart | | | Failure Mother (D) Diabetes, Hypertension | | | No family history of colon or breast | | | cancer Social History Occupation: | | | retired person Lives At: home Lives | | | with: Daughter and Granddaughter Marital | | | Status: Number of Children: 7 | | | Mandaeism/Anabaptism: Taoism Primary | | | Language: Panamanian Use of Panamanian | | | Language: Fluent Risk Factors | | | Tobacco Use: never smoker Alcohol | | | Use:never Drug Use: none Comments: | | | Denies all drug | | | use....................................... 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 Weight: 183 lbs. | | | Temp: 97.0deg.(tympanic) Pulse: | | | 84(regular) Resp: 15 BMI: 34.70 Wt chg: | | | 7.80 Pulse Oximetry: O2 sat. at rest is | | | 98% on RA BP #1: 126/72 | | | Position:sitting Site:left arm Time:4:40 | | | PM Vitals entered by: Edna AZAR on | | | September 23, 2017 4:40 PM Physical Exam | | | General: Well developed, well nourished, | | | in no apparent distress Head: | | | Normocephalic, atraumatic Eyes: | | | conjunctiva and sclera clear, lids normal | | | Ears: Grossly normal hearing Mouth: | | | Oropharynx without deformities or lesions, | | | normal mucosa. Lungs: Clear bilaterally | | | with normal respiratory effort. Heart: | | | Regular rate and rhythm, normal S1, S2, no | | | obvious murmur Abdomen: Soft, | | | non-tender, overweight, bowel sounds | | | present MSK: No deformity to right knee | | | when compared to left. Range of motion is | | | within normal limits, Negative drawer | | | testing, normal gait and station. Skin: | | | Intact without significant lesions, or | | | rashes. Psych: Alert and oriented to | | | time, person, place. Normal mood and | | | affect, intact judgement and insight. | | | Office Labs Blood Tests Date | | | Collected: 09/23/2017 Glucose (2 hour | | | PP): 254 mg/dL Prescriptions: | | | BASAGLAR KWIKPEN 100 UNIT/ML SUBCUTANEOUS | | | SOLUTION PEN-INJEC (INSULIN GLARGINE) 68 | | | Units every morning (34 units on each | | | side) #7 x 3 Entered and Authorized by: | | | Ambrose Pascual DNP TRAINING INTERN Signed by: Ambrose | | | Ankur RAMIREZ TRAINING INTERN on 09/23/2017 Method used: | | | Electronically to [facility]* | | | (retail) [address] | | | [place], [place] [address] Ph: [phone] | | | Fax: [phone] RxID: [id number] | | | ] | + + + Assessments No information available. Chief Complaint No information available. History of Past Illness No information available."
--- OUTSIDE RECORDS SUMMARY | ~2019-03-25 | XMS | Clinical Summary ---
Demographics + + + | Address | [address] [place] [address] | | | [place] [address] | + + + | Home Phone | | + + + | Preferred Language | Unknown | + + + | Marital Status | D | + + + | Christian Affiliation | Unknown | + + + | Race | White | + + + | Ethnic Group | or | + + + Author + + + | Author | [facility] | + + + | Organization | [facility] | + + + | Address | [address] | | | [place], [place] [address] | + + + | Phone | Unavailable | + + + Care Team Providers + +------+ + | Care Refueling Ramp Supervisor Name | Role | Phone | + +------+ + | Christen Pablo | PCP | Unavailable | + +------+ + Conditions or Problems +---------+---------+---------+--------+---------+---------+---------+---------+---------+ | Problem | Problem | Onset | Status | Entry | Provide | Comment | Standar | Annotat | | Name | Code | Date | | Date | r | | d | e | | | | | | | | | Descrip | | | | | | | | | | tion | | +---------+---------+---------+--------+---------+---------+---------+---------+---------+ | CONSTIP | [id number] | | Active | | Ambrose | | Constip | | | ATION | 8 | /13 | | /13 | Ankur | | ation | | | | (SNOMED | | | | DNP PROGRAM MANUFACTURING LEADER | | | | | | CT) | | | | | | | | +---------+---------+---------+--------+---------+---------+---------+---------+---------+ | TYPE 2 | E11.21 | | Active | | Ambrose | | Type 2 | | | DIABETE | (ICD-10 | /19 | | /19 | Ankur | | diabete | | | S | -CM) | | | | DNP PROGRAM MANUFACTURING LEADER | | s | | | MELLITU [...] | | | | athy | | +---------+---------+---------+--------+---------+---------+---------+---------+---------+ | IRON | D50.9 | | Active | | Julia | | Iron | | | DEFICIE | (ICD-10 | /26 | | /07 | Gabriele | | deficie | | [...] | | | | fied | | +---------+---------+---------+--------+---------+---------+---------+---------+---------+ | DIABETE | [id number] | | Active | | David W | | Diabeti | | | S | [id number] | /15 | | /15 | Theen [...] | | | | s | | +---------+---------+---------+--------+---------+---------+---------+---------+---------+ | MUSCLE | [id number] | | Active | | Christen | | Muscle | | | PAIN | 1 | | | / | J. | | pain | | | | (SNOMED | | | | [place] | | | | | | CT) | | | | ta PROGRAM MANUFACTURING LEADER | | | | +---------+---------+---------+--------+---------+---------+---------+---------+---------+ | HYSTERE | Z90.710 | | Active [...] | | | | uterus | | +---------+---------+---------+--------+---------+---------+---------+---------+---------+ | COLONIC | [id number] | | Active | | Emeka | | Adenoma | | | | 06 | | | | Petre | | tous | | | POLYPS, | (SNOMED | | | | MD | | polyp | | | | CT) | | | | | | of | | | ADENOMA | | | | | | | colon | | | TOUS | | | | | | | | | +---------+---------+---------+--------+---------+---------+---------+---------+---------+ | DECREAS | [id number] | | Active | | Emeka | | Decreas | | | ED | 6 | / | | /13 | Petre | | e in | | | APPETIT | (SNOMED | | | | MD | | appetit | | | E | CT) | | | | | | e | | +---------+---------+---------+--------+---------+---------+---------+---------+---------+ | WEIGHT | [id number] | | Active | | Emeka | | Abnorma | | | LOSS | | | | | Petre | | l | | | ABNORMA | (SNOMED | | | | MD | | weight | | | L | CT) | | | | | | loss | | +---------+---------+---------+--------+---------+---------+---------+---------+---------+ | NAUSEA | [id number] | | Active | | Emeka | | Nausea | | | ALONE | 07 | | | /13 | Petre | | | | | | (SNOMED | | | | MD | | | | | | CT) | | | | | | | | +---------+---------+---------+--------+---------+---------+---------+---------+---------+ | RECTAL | 1440185 | | Active | | Emeka | | Rectal | | | BLEEDIN | 2 | /13 | | /13 | Petre | | hemorrh | | | G | (SNOMED | | | | MD | | age | | | | CT) | | | | | | | | +---------+---------+---------+--------+---------+---------+---------+---------+---------+ | DEMENTI | [id number] | | Active | | Christen | | Dementi | | | A | 6 | /10 | | /10 | J. | | a | | | WITHOUT | (SNOMED | | | | [place] | | | | | | CT) | | | | ta PROGRAM MANUFACTURING LEADER | | | | | BEHAVIO | | | | | | | | | | RAL | | | | | | | | | | DISTURB | | | | | | | | | | ANCE | | | | | | | | | +---------+---------+---------+--------+---------+---------+---------+---------+---------+ | CHRONIC | [id number] | | Active | | Christen | | Chronic | | | | 03 | /10 | | /10 | J. | | | | | PROGRES | (SNOMED | | | | [place] | | progres | | | SIVE | CT) | | | | ta PROGRAM MANUFACTURING LEADER | | sive | | | RENAL | | | | | | | renal | | | FAILURE | | | | | | | failure | | +---------+---------+---------+--------+---------+---------+---------+---------+---------+ | FALL | [id number] | | Active | | Christen | | At risk | | | RISK | 07 | / | | | J. | | for | | | | (SNOMED | | | | [place] | | falls | | | | CT) | | | | ta PROGRAM MANUFACTURING LEADER | | | | +---------+---------+---------+--------+---------+---------+---------+---------+---------+ | HAMMER | [id number] | | Active | | Kali | | Kareem | | | DAYNA, | 08 | / | | / | Hakeem | | toe | | | OTHER, | (SNOMED | | | | DPM | | | | | ACQUIRE | CT) | | | | | | | | | D | | | | | | | | | +---------+---------+---------+--------+---------+---------+---------+---------+---------+ | HALLUX | 4603297 | | Active | | Kali | | Acquire | | | VALGUS, | 1 | / | | / | Palacio | | d | | | | (SNOMED | | | | DPM | | hallux | | | ACQUIRE | CT) | | | | | | valgus | | | D | | | | | | | | | +---------+---------+---------+--------+---------+---------+---------+---------+---------+ | ONYCHOM | 5320084 | | Active | | Kali | | Onychom | | | YCOSIS | 08 | | | | Hakeem | | ycosis | | | | (SNOMED | | | | DPM | | | | | | CT) | | | | | | | | +---------+---------+---------+--------+---------+---------+---------+---------+---------+ | HEARTBU | [id number] | | Active | | Tiesha | | Heartbu | | | RN | 0 | /19 | | /19 | | | rn | | | | (SNOMED | | | | Maria Isabel | | | | | | CT) | | | | MD | | | | +---------+---------+---------+--------+---------+---------+---------+---------+---------+ | TYPE 2 | [id number] | | Active | | Tiesha | | Disorde | | | DIABETE | 03 | / | | / | | | r due | | | S | (SNOMED | | | | [place] | | to type | | | [...] | | | | s | | +---------+---------+---------+--------+---------+---------+---------+---------+---------+ | LIPOMA | [id number] | | Active | | Lauranc | | Lipoma | | | | 2 | /14 | | /14 | e W | | (clinic | | | | (SNOMED | | | | Lila | | al) | | | | CT) | | | | MD | | | | +---------+---------+---------+--------+---------+---------+---------+---------+---------+ | VITAMIN | [id number] | | Active | | David W | | Vitamin | | | D | 6 | /14 | | /15 | Theen | | D | | | DEFICIE | (SNOMED | | | | MD FACE | | deficie | | | NCY | CT) | | | | FACP | | ncy | | +---------+---------+---------+--------+---------+---------+---------+---------+---------+ | OBESITY | 8047403 | | Active | | David W | | Obesity | | | , BMI | 01 | /14 | | /15 | Theen | | | | | 35-39.9 | (SNOMED | | | | MD FACE | | | | | , ADULT | CT) | | | | FACP | | | | +---------+---------+---------+--------+---------+---------+---------+---------+---------+ | RENAL | 1113888 | | Active | | Luz | | 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 | | /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 | | | CIENCY | (SNOMED | | | | RN | | | | | | CT) | | | | | | syndrom | | | | | | | | | | e | | +---------+---------+---------+--------+---------+---------+---------+---------+---------+ | PERIPHE | 7468160 | | Active | | Lauranc | [...] | | | | disease | | +---------+---------+---------+--------+---------+---------+---------+---------+---------+ | CANDIDI | 7422717 | | Active | | Susanna | | Candidi | | | ASIS, | 6 | /31 | | /03 | Medel | | asis of | | | SKIN | (SNOMED | | | | MD | | skin | | | | CT) | | | | | | | | +---------+---------+---------+--------+---------+---------+---------+---------+---------+ | KNEE | 8204801 | | Active | | Lauranc | | Knee | | | PAIN | 3 | | | | e W | | pain | | | | (SNOMED | | | | Lila | | | | | | CT) | | | | MD | | | | +---------+---------+---------+--------+---------+---------+---------+---------+---------+ | VERTEBR | [id number] | | Active | | Lauranc | | Vertebr | | | OBASILA | 08 | / | | /14 | e [...] | | | | e | | +---------+---------+---------+--------+---------+---------+---------+---------+---------+ | VERTIGO | 9647113 | | Active | | Luz | | Vertigo | | | | | | | | Asad | | | | | | (SNOMED | | | | RN | | | | | | CT) | | | | | | | | +---------+---------+---------+--------+---------+---------+---------+---------+---------+ | CEREBRO | 8289431 | | Active | | Rogers | | 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 | | | R | (SNOMED | | | | MD | | r | | | DISEASE | CT) | | | | | | disease | | +---------+---------+---------+--------+---------+---------+---------+---------+---------+ | History | [id number] | | Active | | Rogers | [...] | | | | s | | +---------+---------+---------+--------+---------+---------+---------+---------+---------+ | HYPERLI | 1996740 | | Active | | Rogers | | Hyperli | | | PIDEMIA | 4 | /30 | | /30 | Laith | | pidemia | | | | (SNOMED | | | | MD | | | | | | CT) | | | | | | | | +---------+---------+---------+--------+---------+---------+---------+---------+---------+ | History | 4408751 | | Active | | Rogers | [...] | | | | e | | +---------+---------+---------+--------+---------+---------+---------+---------+---------+ | CARPAL | 0697641 | | Active | | Rogers | | Carpal | | | 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 | /25 | | /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 | | | | MD | | 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, LEFT | CT) | | | | | | e | | +---------+---------+---------+--------+---------+---------+---------+---------+---------+ | GAIT | 3646711 | | Active | | Rogers | | Abnorma | | | IMBALAN | 2 | /25 | | /25 | Laith | | l gait | | | CE | (SNOMED | | | | MD | | | | | | CT) | | | | | | | | +---------+---------+---------+--------+---------+---------+---------+---------+---------+ | THYROID | [id number] | | Active | | Luz | | Thyroid | | | NODULE | 05 | /20 | | /20 | Nemo | | nodule | | | | (SNOMED | | | | CCMA | | | | | | CT) | | | | | | | | +---------+---------+---------+--------+---------+---------+---------+---------+---------+ | TIA | 5077752 | | Active | | Lauranc | [...] | | | | a | | +---------+---------+---------+--------+---------+---------+---------+---------+---------+ | GASTROP | 0610411 | | Active | | Lauranc | | 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 | | | | (SNOMED | | | | Lila | | syndrom | | | | CT) | | | | MD | | e | | +---------+---------+---------+--------+---------+---------+---------+---------+---------+ | CONSTIP | 5789086 | | Active | | Lauranc | | Chronic | | | ATION, | | / | | | e W | | | | | CHRONIC | (SNOMED | | | | Lila | | constip | | | | CT) | | | | MD | | ation | | +---------+---------+---------+--------+---------+---------+---------+---------+---------+ | POSTHER | 2218391 | | Active | | Lauranc | | Posther | | | 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 | (SNOMED | | | | Lila | | neuralg | | | IA | CT) | | | | MD | | ia | | +---------+---------+---------+--------+---------+---------+---------+---------+---------+ | HYPERTE | 6071283 | | Active | | Lauranc | | Hyperte | | | NSION | 3 | /08 | | /08 | e W | | nsive | | | | (SNOMED | | | | Lila | | disorde | | | | CT) | | | | MD | | r | | +---------+---------+---------+--------+---------+---------+---------+---------+---------+ Medications + + + + + + + + | Medication | Instructio | Start Date | Stop Date | Generic | NDC | Provider | | | ns | | | Name | | | + + + + + + + + | CLONAZEPAM | Take one | | | CLONAZEPAM | [id number] | Edna | | 0.5 MG | tablet | | | | 1 | Hope CCMA | | TABS | every 24 | | | | | | | | hours as | | | | | | | | needed for | | | | | | | | anxiety | | | | | | + + + + + + + + | PROMETHAZI | Take one | | | PROMETHAZI | [id number] | Edna | | NE HCL 25 [...] 17 gm | | | POLYETHYLE | [id number] | Ambrose | | POWD | daily | | | NE GLYCOL | 2 | Ankur DNP | | | stirred | | | 3350 | | PROGRAM MANUFACTURING LEADER | | | into 4-8 | | [...] 1 pill | | | DOCUSATE | [id number] | Ambrose | | MG CAPS | twice | | | SODIUM | 0 | Ankur DNP | | | daily for | | | | | PROGRAM MANUFACTURING LEADER | | | soft | | | | | | | | stools | | | | | | + + + + + + + + | NOVOLOG | 12 Units | | | INSULIN | [id number] | Ambrose | | 100 | before | | | ASPART | 1 | Ankur DNP | | UNIT/ML | meals | | | | | PROGRAM MANUFACTURING LEADER | | SOLN | SS:150-175 | | [...] 1 capsule | | | PREGABALIN | [id number] | Ambrose | | MG CAPS | three | | | | 8 | Ankur DNP | | | times | | | | | PROGRAM MANUFACTURING LEADER | | | daily for | | | | | | | | neuropathy | | | | | | + + + + + + + + | VALSARTAN | Take one | | | VALSARTAN | [id number] | Ambrose | | 160 MG | tablet | | | | 7 | Ankur DNP | | TABS | daily in | | | | | PROGRAM MANUFACTURING LEADER | | | the AM | | | | | | + + + + + + + + | LIPITOR 20 | take 1 | | | ATORVASTAT | [id number] | Ambrose | | MG TABS | tablet by | | | IN CALCIUM | 3 | Ankur DNP | | | mouth | | | | | PROGRAM MANUFACTURING LEADER | | | daily in | | | | | | | | the | | | | | | | | evening | | | | | | + + + + + + + + | PLAVIX 75 | 1 tab by | | | CLOPIDOGRE | [id number] | Ambrose | | MG TABS | mouth one | | | L | 1 | Ankur DNP | | | time per | | | BISULFATE | | PROGRAM MANUFACTURING LEADER | | | day in the | | | | | | | | evening | | | | | | + + + + + + + + | OMEPRAZOLE | Take one | | | OMEPRAZOLE | [id number] | Ambrose | | 40 MG | by mouth | | | | 0 | Ankur DNP | | CPDR | one time | | | | | PROGRAM MANUFACTURING LEADER | | | per day | | [...] tab by | | | FUROSEMIDE | [id number] | Ambrose | | MG TABS | mouth one | | | | 5 | Ankur DNP | | | time per | | | | | PROGRAM MANUFACTURING LEADER | | | day in the | | | | | | | | AM | | | | | | + + + + + + + + | POTASSIUM | Take one | | | POTASSIUM | [id number] | Ambrose | | CHLORIDE | cap daily | | | CHLORIDE | 1 | Ankur DNP | | ER 10 MEQ | in the AM | | | | | PROGRAM MANUFACTURING LEADER | | CR-CAPS | | | | | | | + + + + + + + + | VITAMIN D | Take one | | | CHOLECALCI | 2424967239 | Ambrose | | 1000 UNIT | tablet | | | FEROL | 1 | Ankur DNP | | TABS | daily in | | | | | PROGRAM MANUFACTURING LEADER | | | the AM | | | | | | + + + + + + + + | MECLIZINE | One tab by | | | MECLIZINE | [id number] | Ambrose | | HCL 25 MG | mouth | | | HCL | 0 | Ankur DNP | | TABS | three | | | | | PROGRAM MANUFACTURING LEADER | | | times per | | | | | | | | day | | | | | | + + + + + + + + | GLIPIZIDE | Take 1 | | | GLIPIZIDE | [id number] | Ambrose | | XL 2.5 MG | tablet | | | | 1 | Ankur DNP | | [id number] | p.o. | | | | | PROGRAM MANUFACTURING LEADER | | | q.a.m. | | | | | | + + + + + + + + | PANTOPRAZO | Take one | | | PANTOPRAZO | [id number] | Ambrose | | LE SODIUM | tablet by | | | LE SODIUM | 8 | Ankur DNP | | 40 MG TBEC | mouth once | | | | | PROGRAM MANUFACTURING LEADER | | | daily | | | | | | + + + + + + + + | BIOTIN 1 | Take one | | | BIOTIN | [id number] | Ambrose | | MG CAPS | daily in | | | | 2 | Ankur DNP | | | the AM | | | | | PROGRAM MANUFACTURING LEADER | + + + + + + + + | NYSTATIN-T | Apply thin | | | NYSTATIN-T | [id number] | Ambrose | | RIAMCINOLO | layer to | | | RIAMCINOLO | 5 | Ankur DNP | | NE | affected | | | NE | | PROGRAM MANUFACTURING LEADER | | 621997-7.1 | area BID | | | | | | | UNIT/GM-% | prn for | | | | | | | CREA | itching | | | | | | + + + + + + + + | BASAGLAR | 56 Units | | | INSULIN | [id number] | David | | GRACEIKPEN | every | | | GLARGINE | 9 | Rayyne DO | | 100 | morning | | | | | | | UNIT/ML | | | | | | | | SOPN | | | | | | | + + + + + + + + Medications Administered No information available. Allergies, Adverse Reactions, Alerts + + + + +--------+ + | Allergy Name | Reaction | Start Date | Severity | Status | Provider | | | Description | | | | | + + + + +--------+ + | CIPRO IV | Pt states | | Critical | | David W | | | she had | | | | Clemente LUIS | | | redness [...] | | | + + + + +--------+ + | LISINOPRIL | cough | | Moderate | | Bailey W | | | | | | | Lila MD | + + + + +--------+ + | MECLIZINE | Made her | | Moderate | | Bailey W | | | vertigo | | | | Lila MD | | | worse | | | | | + + + + +--------+ + | MORPHINE | hallucinatio | | Critical | | Laurance W | | | ns | | | | Lila MD | + + + + +--------+ + | VICODIN | Hallucinatio | | Critical | | Laurance W | | | ns | | | | Lila MD | + + + + +--------+ + Results +------+------+-------+------+-------+------+ + | Date | Name | Value | Unit | Range | Flag | Descriptio | | | | | | | | n | +------+------+-------+------+-------+------+ + + + | Lab Report: Glyco Hemoglobin, A1C | + + + +--------+-----+---+---------+---+ + | | HGBA1C | 8.8 | % | 4.6-6.2 | H | Hemoglobin | | | | | | | | | | | | | | | | A1c/Hemogl | | | | | | | | obin.total | | | | | | | | in Blood | + +--------+-----+---+---------+---+ + + + | Office Visit: F/u DM & memory | + + + +--------+--------+---+---+---+ + | | SMOK | never | | | | Tobacco | | | STATUS | smoker | | | | use CPHS | + +--------+--------+---+---+---+ + | | MEDS | [...] | | ) | + +--------+--------+---+---+---+ + + + | Rx Refill: eRx Request for OMEPRAZOLE 40 MG ORAL CAPSULE DELAYED RELEASE | + + + +--------+ +---+---+---+ + | | ESM_RR | [id number] | | | B | e-scripts | | | | 93`OMEPRANigel | | | | messenger | | | | OLE 40 MG | | | | refill | | | | ORAL | | | | request | | | | CAPSULE | | | | | | | | DELAYED | | | | | | | | RELEASE`40 | | | | | | | | ``30 | | | | | | | | Unspecifie | | | | | | | | d``Take | | | | | | | | one by | | | | | | | | mouth one | | | | | | | | time per | | | | | | | | day 30-60 | | | | | | | | minutes | | | | | | | | before | | | | | | | | breakfast | | | | | | | | as | | | | | | | | needed``1` | | | | | | | | 0`07/15/19 | | | | | | | | 18` | | | | | | | | 018`Tyler | | | | | | | | t - | | | | | | | | [place]*` | | | | | | | | [id number] | | | | | | | | `[id number] | | | | | | | | 10`48089`O | | | | | | | | MEPRAZOLE | | | | | | | | DR 40MG | | | | | | | | CAP | | | | | | | | Quantity: | | | | | | | | 30 Capsule | | | | | | | | | | | | | | | | Instructio | | | | | | | | ns: TAKE 1 | | | | | | | | CAPSULE | | | | | | | | BY MOUTH | | | | | | | | ONCE DAILY | | | | | | | | 30 TO | | | | | | | | 60 | | | | | | | | MINUTES | | | | | | | | BEFORE | | | | | | | | BREAKFAST | | | | | | | | | | | | | | | | NEEDED. | | | | | | | | PLEASE | | | | | | | | MAKE | | | | | | | | APPOINTMEN | | | | | | | | T. | | | | | + +--------+ +---+---+---+ + + + | Rx Refill: Taryn Request for VALSARTAN 160MG TAB | + + + +--------+ +---+---+---+ + | | ESM_RR | [id number] | | | B | e-scripts | | | | 13`VALSART | | | | messenger | | | | AN 160MG | | | | refill | | | | TAB`160MG` | | | | request | | | | `30 | | | | | | | | Tablet``TA | | | | | | | | KE ONE | | | | | | | | TABLET BY | | | | | | | | MOUTH | | | | | | | | DAILY IN | | | | | | | | THE | | | | | | | | MORNING. | | | | | | | | NEEDS TO | | | | | | | | MAKE | | | | | | | | APPOINTMEN | | | | | | | | T WITH | | | | | | | | CLINIC``1` | | | | | | | | 0`07/02/19 | | | | | | | | 18` | | | | | | | | 018`Walmar | | | | | | | | t - | | | | | | | | [place]*` | | | | | | | | [id number] | | | | | | | | `[id number] | | | | | | | | 09``VALSAR | | | | | | | | RIVAS 160MG | | | | | | | [...] | | | | | | | MORNING. | | | | | | | | NEEDS TO | | | | | | | | MAKE | | | | | | | | APPOINTMEN | | | | | | | | T WITH | | | | | | | | CLINIC | | | | | + +--------+ +---+---+---+ + Plan of Care + + + + | Type | Date | Detail | + + + + | Appointment | 01:00 PM | Ambrose Pascual DNP [facility], [address] | | | | [facility] [address], | | | | [place], [address], | | | | | + + + + | Referral | | Podiatry Consult | + + + + | Referral | | Ophthalmology Consult | | | | Huong Rose, | | | | [address], [place], | | | | [place], [address] | | | | | + + + + | Referral | | Nephrology Evaluation | | | | Larry Galo, | | | | [address], | | | | [address], [place], [address] | | | | | | | | | + + + + | Referral | | Physical Therapy Evaluation | | | | [facility], [address] | [address], [place], [address] | | | | | | | | | + + + + | Referral | | GI Consult | | | | Emeka Clark MD, [address] | | [address], | | | | [place], [address] | | | | | + + + + | Referral | | Nephrology Evaluation | | | | Larry Galo, | | | | [address], | | | | [address], [place], [address] | | | | | | | | | + + + + | Referral | | Surgical Consult | | | | Jesus Long, [address] | | | [address] [address], | | | | [place], [address] | | | | | + + + + | Referral | | Podiatry Consult | | | | Kali Palacio, [address] | | | | [place], | | | | [place], [address] | | | | | + + + + | Referral | | Nephrology Evaluation | | | | Larry Galo, | | | | [address], | | | | [address], [place], [address] | | | | | | | | | + + + + | Referral | | Neurology Consult | | | | RAUL Gen Phone #, | | | | [address] | | | [address], [place], [address] | | | | | + + + + | Referral | | MRA Head-WO Con | | | | Dian Atkins, [address] | | [address], | | | | [place], [place], [address] | | | | | + + + + | Referral | | Neurology Consult | | | | Rogers Ozuna, [address] | | | [address] [place], | | | | [place], [address] | | | | | + + [...] Microalb/Creat Ratio UR, | | | | [place]rop | + + + + | Pending [...] | Speech | + + + + Procedures + + + + + | Code | Procedure Name | Date | Entry Date | + + + + + | [id number] | Overweight | | | + + + + + | [id number] | Overweight | | | + + + + + | CPT-58851 | IV infusion -1st hr | | | | | (Rehydration) | | | + + + + + | CPT-30554 | Glucose by monitor | | | + + + + + | CPT-03591 | UA Dipstick | | | + + + + + | CPT-20247 | DAISY Dipick | | | + + + + + | CPT-25426 | Initial Psych | | | | | Evaluation | | | + + + + + | CPT-62137 | [facility], [address] | | | | | more [address] | | | + + + + [...] | + + + + + | CPT-72735 | [facility]ions | | | | | 73493 | | | + + + + + | CPT-82990 | [facility] Dipstick | | | + + + + + | CPT-23610 | [facility] Leos or | | | | | more [address] | | | + + + + [...] | + + + + + | CPT-14033 | [facility], 6 or | | | | | more [address] | | | + + + + [...] | + + + + + | CPT-45077 | Physical Therapy | | | | | Evaluation | | | + + + + + | [id number] | [facility] Generic Patient | | | | | Encounter Service | | | | | (from patch) | | | + + + + + | [id number] | [Recorded for CQM] | | | | | Documentation of | | | | | current medications | | | | | (procedure) | | | + + + + + | [id number] | [Recorded for CQM] | | | | | Documentation of | | | | | current medications | | | | | (procedure) | | | + + + + + | [id number] | [Recorded for CQM] | | | | | Documentation of | | | | | current medications | | | | | (procedure) | | | + + + + + | [id number] | [Recorded for CQM] | | | | | Documentation of | | | | | current medications | | | | | (procedure) | | | + + + + + | FREE T4 41950 | T4 Free | | | + + + + + | T3 FREE 57729 | T3 Free | | | + + + + + | TSH 90330 | TSH | | | + + + + + | GLYCO HGB 51362 | HgbA1C | | | + + + + + | [id number] | [facility] Generic Patient | | | | | Encounter Service | | | | | (from patch) | | | + + + + + | [id number] | [Recorded for CQM] | | | | | Documentation of | | | | | current medications | | | | | (procedure) | | | + + + + + | [id number] | [facility] Generic Patient | | | | | Encounter Service | | | | | (from patch) | | | + + + + + | CPT-41238 | EKG- tracing with | | | | | report (79407) | | | + + + + + | [id number] | [Recorded for CQM] | | | | | Documentation of | | | | | current medications | | | | | (procedure) | | | + + + + + | [id number] | [facility] Generic Patient | | | | | Encounter Service | | | | | (from patch) | | | + + + + + | CPT-Troponin l | Troponin I | | | | 97533 | | | | + + + + + | [id number] | [Recorded for CQM] | | | | | Documentation of | | | | | current medications | | | | | (procedure) | | | + + + + + | CPT-37988 | Physical Therapy | | | | | Evaluation | | | + + + + + | CPT-G8427 | Current Medications | | | | | Documented | | | + + + + + | [id number] | [Recorded for CQM] | | | | | Documentation of | | | | | current medications | | | | | (procedure) | | | + + + + + | CPT-G8427 | Current Medications | | | | | Documented | | | + + + + + | [id number] | [Recorded for CQ] | | | | | Documentation of [...] + + + + | CHEM PROF 20783 | CMP (Comprehensive | | | | | Metabolic Panel) | | | + + + + + | GLYCO HGB 82343 | HgbA1C | | | + + + + + | CPT-Q2037 | Fluvirin | | | | | (Influenza) | | | | | Med/Atrio | | | + + + + + | RISK 93475 | Lipid Profile | | | + + + + + | VIT D HYDR 17714 | Vit D, 25 hydroxy | | | + + + + + | CYC CITRU 78951 | Cyclic | | | | | Citrullinated Pept | | | | | IgG | | | + + + + + | RA QUANT 86116 | Rheumatoid Factor | | | | | (quant) | | | + + + + + | TSH 11456 | TSH | | | + + + + + | IVANA 83134 | IVANA | | | + + + + + | GLYCO HGB 18362 | HgbA1C | | | + + + + + | CPT-11734 | EKG- tracing with | | | | | report (76127) | | | + + + + + | CPT-54174 | ANDRE | | | + + + + + | 50058 63686 | Holter Monitor 48H | | | | | Panel | | | + + + + + | 42925 99346 | Holter Monitor 72H | | | | | Panel | | | + + + + + | CPT-16227 | Barium Swallow MBS | | | | | with Speech | | | + + + + + | 82403 17622 | US Abdomen-Cmplt | | | | | and Pelvic-Lmtd | | | + + + + + | CPT-73420 | US Soft Tissue | | | | | Head/Neck Exam | | | + + + + + | CPT-48234 | Motor nerve testing | | | | | - each nerve | | | + + + + + | RISK 46212 | Lipid Profile | | | + + + + + | ESR 54576 | Sedimentation Rate | | | | | (ESR) | | | + + + + + | SPEP IF 75812 | SPEP with JESÚS if | | | | | indicated | | | + + + + + | B12+FOLATE MULTIPLE | B-12 - Folate | | | + + + + + | PFA 56052 | Platelet Function | | | | | Assay | | | + + + + + | 64110 | MRA Head-WO Con | | | + + + + + | 54554 | MR Head-WO Con | | | + + + + + | CPT-53362 | VL Carotid-Cerebral | | | | | Duplex | | | + + + + + | CPT-24105 | Holter Monitor | | | + + + + + | D DIMER 43721 | D-dimer (tyrese) | | | + + + + + | 39535 | CT Head-WWO Con | | | + + + + + | VIT D HYDR 52942 | Vit D, 25 hydroxy | | | + + + + + | TSH 74775 | TSH | | | + + + + + | B12+FOLATE MULTIPLE | B-12 - Folate | | | + + + + + | UA 21820 | Urinalysis | | | + + + + + | CHEM PROF 85327 | CMP (Comprehensive | | | | | Metabolic Panel) | | | + + + + + | CBC 34762 | CBC w/ Diff - w/ | | | | | platelets | | | + + + + + | GLYCO HGB 40306 | HgbA1C | | | + + + + + | TSH 68716 | TSH | | | + + + + + | VIT D HYDR 47634 | Vit D, 25 hydroxy | | [...] +-------+---------+ + | | Weight Measured | 171.6 | [lb_av] | weight E&M | + + +-------+---------+ + | | BP Diastolic | 84 | mm[Hg] | blood pressure, | | | | | | diastolic | + + +-------+---------+ + | | BP Systolic | 158 | mm[Hg] | blood pressure, | | | | | | systolic | + + +-------+---------+ + | | Heart Rate | 75 | /min | pulse rate E&M | + + +-------+---------+ + | | Height | 61 | [in_us] | height E&M | + + +-------+---------+ + | | Weight Measured | 174.2 | [lb_av] | weight E&M | + + +-------+---------+ + | | BMI (Body Mass | 32.65 | kg/m2 | Body Mass Index | [...] + +-------+---------+ + | | Body | 97.6 | [degF] | temperature E&M | | | Temperature | | | | + + +-------+---------+ + | | Heart Rate | 76 | /min | pulse rate E&M | + + +-------+---------+ + | | Respiratory | 16 | /min | respiratory | | | Rate | | | rate E&M | + + +-------+---------+ + | | Weight Measured | 172.2 | [lb_av] | weight E&M | + [...] | 170 | [lb_av] | weight E&M | + [...] + +-------+---------+ + | | Body | 97.6 | [degF] | temperature E&M | | | Temperature | | | | + + +-------+---------+ + | | Heart Rate | 86 | /min | pulse rate E&M | + + +-------+---------+ + | | Height | 61 | [in_us] | height E&M | + + +-------+---------+ + | | Respiratory | 21 | /min | respiratory | | | Rate | | | rate E&M | + + +-------+---------+ + | | Weight Measured | 170 | [lb_av] | weight E&M | + + +-------+---------+ + | | BMI (Body Mass | 32.69 | kg/m2 | Body Mass Index | [...] +-------+---------+ + | | Weight Measured | 172.4 | [lb_av] | weight E&M | + + +-------+---------+ + | | BMI (Body Mass | 31.63 | kg/m2 | Body Mass Index | [...] +-------+---------+ + | | BP Systolic | 124 | mm[Hg] | blood pressure, | | | | | | systolic, | | | | | | second | | | | | | observation | + + +-------+---------+ + | | BP Systolic | 124 | mm[Hg] | blood pressure, | | | | | | systolic | + + +-------+---------+ + | | Body | 96.8 | [degF] | temperature E&M | | | Temperature | | | | + + +-------+---------+ + | | Heart Rate | 80 | /min | pulse rate E&M | + + +-------+---------+ + | | Height | 61 | [in_us] | height E&M | + + +-------+---------+ + | | Weight Measured | 166.8 | [lb_av] | weight E&M | + + +-------+---------+ + | | BMI (Body Mass | 31.78 | kg/m2 | Body Mass Index | [...] +-------+---------+ + | | BP Systolic | 150 | mm[Hg] | blood pressure, | | [...] +-------+---------+ + | | Weight Measured | 167.6 | [lb_av] | weight E&M | + [...] | Alcohol use | ETOH USE | current | | [...] | | | + + + +-------+ +"
--- OUTSIDE RECORDS SUMMARY | ~2019-03-25 | XMS | Clinical Summary ---
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 | Phone | + [...] +---------+---------+---------+---------+---------+---------+---------+---------+---------+ | VOLUME | E86.9 | | Active | | Julia | | Volume | | | DEPLETI | (ICD-10 | | | | Gabriele | | depleti | | | ON | -CM) | | | | | | on, | | | UNSPECI | | | | | | | unspeci | | | FIED | | | | | | | fied | | +---------+---------+---------+---------+---------+---------+---------+---------+---------+ | XEROSIS | [id number] | | Active | | Hector | | Asteato | | | , SKIN | 0 | /16 | | | Armendariz | | sis | | | OF FOOT | (SNOMED | | | | DPM | | cutis | | | | CT) | | | | | | | | +---------+---------+---------+---------+---------+---------+---------+---------+---------+ | VOLUME | E86.9 | | Inactiv | | Edward | | Volume | | | DEPLETI | (ICD-10 | /16 | e | /16 | Ottenhe | | depleti | | | ON | -CM) | | | | sheila MD | | on, | | | UNSPECI | | | | | | | unspeci | | | FIED | | | | | | | fied | | +---------+---------+---------+---------+---------+---------+---------+---------+---------+ | DIABETE | [id number] | | Active | | David | [...] s | | +---------+---------+---------+---------+---------+---------+---------+---------+---------+ | NAUSEA | [id number] | | Resolve | | Geetha | | Nausea | | | ALONE | 07 | /13 | d | /13 | Sparks | | | | | | (SNOMED | | | | [facility] | | | | | | CT) | | | | | | | | +---------+---------+---------+---------+---------+---------+---------+---------+---------+ | VACCINA | [id number] | | Resolve | | Geetha | | Medicat | | | TION | 02 | / | d | /03 | Sparks | | ion | | | FOR [...] | | | +---------+---------+---------+---------+---------+---------+---------+---------+---------+ | FLANK | [id number] | | Active | | Geetha | | Flank | | | PAIN | 05 | /01 | | /01 | Sparks | | pain | | | | (SNOMED | | | | [facility] | | | | | | CT) | | | | | | | | +---------+---------+---------+---------+---------+---------+---------+---------+---------+ | VACCINA | [id number] | | Removed | | Ambrose | | Medicat | | | TION | 02 | | | /03 | Ankur | | ion | | | FOR | (SNOMED | | | | DNP PALLIATIVE CARE COORDINATOR | | given | | | STREP [...] | | | +---------+---------+---------+---------+---------+---------+---------+---------+---------+ | OSTEOAR | [id number] | | Active | | Edna | | Osteoar | | | THRITIS | 07 | /16 | | /18 | Hope | | thritis | | | , KNEE, | (SNOMED | | | | [facility] | | of | | | RIGHT | CT) | | | | | | knee | | +---------+---------+---------+---------+---------+---------+---------+---------+---------+ | CONSTIP | [id number] | | Active | | Ambrose | | Constip | | | ATION | 8 | /13 | | /13 | Ankur | | ation | | | | (SNOMED | | | | DNP PALLIATIVE CARE COORDINATOR | | | | | | CT) | | | | | | | | +---------+---------+---------+---------+---------+---------+---------+---------+---------+ | TYPE 2 | E11.21 | | Active | | Ambrose | | Type 2 | | | DIABETE | (ICD-10 | /19 | | /19 | Ankur | | diabete | | | S | -CM) | | | | DNP PALLIATIVE CARE COORDINATOR | | s | | | MELLITU [...] athy | | +---------+---------+---------+---------+---------+---------+---------+---------+---------+ | DIABETE | [id number] | | Inactiv | | Ambrose | | Type 2 | | | S | 6 | /08 | e | /08 | Ankur | | diabete | | | MELLITU | (SNOMED | | | | DNP PALLIATIVE CARE COORDINATOR | | s | | | S, TYPE | CT) | | | | | | mellitu | | | II, ON | | | | | | | s | | | | | | | | | | | | | INSULIN | | | | | | | | | +---------+---------+---------+---------+---------+---------+---------+---------+---------+ | DEHYDRA | [id number] | | Resolve | | Ambrose | | Dehydra | | | TION | 6 | /08 | d | /08 | Ankur | | tion | | | | (SNOMED | | | | DNP PALLIATIVE CARE COORDINATOR | | | | | | CT) | | | | | | | | +---------+---------+---------+---------+---------+---------+---------+---------+---------+ | DIZZINE | [id number] | | Inactiv | | Ambrose | | Dizzine | | | SS | 03 | /08 | e | /08 | Ankur | | ss | | | | (SNOMED | | | | DNP PALLIATIVE CARE COORDINATOR | | | | | | CT) | | | | | | | | +---------+---------+---------+---------+---------+---------+---------+---------+---------+ | ANEMIA | [id number] | | Inactiv | | Mabrose | | Anemia | | | | 00 | /10 | e | /10 | Ankur | | | | | | (SNOMED | | | | DNP PALLIATIVE CARE COORDINATOR | | | | | | CT) | | | | | | | | +---------+---------+---------+---------+---------+---------+---------+---------+---------+ | CONSTIP | [id number] | | Inactiv | | Ambrose | | Constip | | | ATION | 8 | / | e | /13 | Ankur | | ation | | | | (SNOMED | | | | DNP PALLIATIVE CARE COORDINATOR | | | | | | CT) | | | | | | | | +---------+---------+---------+---------+---------+---------+---------+---------+---------+ | SYNCOPE | [id number] | | Resolve | | Ambrose | | Syncope | | | | 07 | | d | / | Ankur | | | | | | (SNOMED | | | | DNP PALLIATIVE CARE COORDINATOR | | | | | | CT) | | | | | | | | +---------+---------+---------+---------+---------+---------+---------+---------+---------+ | DYSPHAG | R13.10 | | Resolve | | Ambrose | | Dysphag | | | IA | (ICD-10 | | d | | Ankur | | ia, | | | UNSPECI | -CM) | | | | DNP PALLIATIVE CARE COORDINATOR | | unspeci | | | FIED | | | | | | | fied | | +---------+---------+---------+---------+---------+---------+---------+---------+---------+ | PARESTH | [id number] | | Inactiv | | Ambrose | | Paresth | | | ESIA, | | | e | / | Ankur | | esia of | | | HANDS | (SNOMED | | | | DNP PALLIATIVE CARE COORDINATOR | | hand | | | | CT) | | | | | | | | +---------+---------+---------+---------+---------+---------+---------+---------+---------+ | DIABETI | [id number] | | Inactiv | | Ambrose | | Diabeti | | | C | | | e | | Ankur | | c | | | PERIPHE | (SNOMED | | | | DNP PALLIATIVE CARE COORDINATOR | | periphe | | | RAL [...] | -CM) | | | | DNP PALLIATIVE CARE COORDINATOR | | unspeci | | | FIED | | | | | | | fied | | +---------+---------+---------+---------+---------+---------+---------+---------+---------+ | VAGINIT | [id number] | | Resolve | | Ambrose | | Vaginit | | | IS | 1 | /31 | d | /31 | Ankur | | is | | | | (SNOMED | | | | DNP PALLIATIVE CARE COORDINATOR | | | | | | CT) | | | | | | | | +---------+---------+---------+---------+---------+---------+---------+---------+---------+ | DYSURIA | [id number] | | Resolve | | Ambrose | | Dysuria | | | | 1 | /31 | d | /31 | Ankur | | | | | | (SNOMED | | | | DNP PALLIATIVE CARE COORDINATOR | | | | | | CT) | | | | | | | | +---------+---------+---------+---------+---------+---------+---------+---------+---------+ | EDEMA | [id number] | | Inactiv | | Ambrose | | Edema | | | | 08 | /15 | e | /11 | Ankur | | | | | | (SNOMED | | | | DNP PALLIATIVE CARE COORDINATOR | | | | | | CT) | | | | | | | | +---------+---------+---------+---------+---------+---------+---------+---------+---------+ | RENAL | [id number] | | Inactiv | | Ambrose | | Acute | | | FAILURE | 1 | /02 | e | /02 | Ankur | | renal | | | , ACUTE | (SNOMED | | | | DNP PALLIATIVE CARE COORDINATOR | | failure | | | | CT) | | | | | | | | | | | | | | | | syndrom | | | | | | | | | | e | | +---------+---------+---------+---------+---------+---------+---------+---------+---------+ | DIABETE | [id number] | | Inactiv | | Ambrose | | Periphe | | | S | 02 | /01 | e | /01 | Ankur | | ral | | | MELLITU | (SNOMED | | | | DNP PALLIATIVE CARE COORDINATOR | | vascula | | | S, [...] | -CM) | | | | DNP PALLIATIVE CARE COORDINATOR | | s | | | DIABETI [...] ropathy | | +---------+---------+---------+---------+---------+---------+---------+---------+---------+ | LOCALIZ | [id number] | | Resolve | | Ambrose | | Disorde | | | ED | 09 | /30 | d | /30 | Ankur | | r of | | | SWELLIN | (SNOMED | | | | DNP PALLIATIVE CARE COORDINATOR | | forearm | | | G [...] | | | +---------+---------+---------+---------+---------+---------+---------+---------+---------+ | UTI | [id number] | | Resolve | | Ambrose | | Urinary | | | | 5 | /13 | d | /13 | Ankur | | tract | | | | (SNOMED | | | | DNP PALLIATIVE CARE COORDINATOR | | infecti | | | | [...] | -CM) | | | | DNP PALLIATIVE CARE COORDINATOR | | s | | | MELLITU [...] athy | | +---------+---------+---------+---------+---------+---------+---------+---------+---------+ | DEMENTI | [id number] | | Inactiv | | Ambrose | | Procedu | | | A | 03 | / | e | / | Ankur | | re | | | SCREENI | (SNOMED | | | | DNP PALLIATIVE CARE COORDINATOR | | carried | | | NG | CT) | | | | | | out on | | | | | | | | | | | | | | | | | | | | subject | | +---------+---------+---------+---------+---------+---------+---------+---------+---------+ | CHANGE | [id number] | | Inactiv | | Ambrose | | Altered | | | IN | 9 | /13 | e | /13 | Ankur | | bowel | | | BOWEL | (SNOMED | | | | DNP PALLIATIVE CARE COORDINATOR | | functio | | | HABITS | CT) | | | | | | n | | +---------+---------+---------+---------+---------+---------+---------+---------+---------+ | MILD | [id number] | | Inactiv | | Ambrose | | Mild | | | COGNITI | 03 | / | e | /24 | Ankur | | cogniti | | | VE | (SNOMED | | | | DNP PALLIATIVE CARE COORDINATOR | | ve | | | IMPAIRM | CT) | | | | | | disorde | | | ENT | | | | | | | r | | +---------+---------+---------+---------+---------+---------+---------+---------+---------+ | DIABETE | [id number] | | Inactiv | | Ambrose | | Periphe | | | S | [id number] | /11 | e | /12 | Ankur | | ral | | | MELLITU | (SNOMED | | | | DNP PALLIATIVE CARE COORDINATOR | | neuropa | | | S, [...] DEFICIE | (ICD-10 | / | | / | Gabriele | | deficie | | [...] fied | | +---------+---------+---------+---------+---------+---------+---------+---------+---------+ | DIABETE | [id number] | | Active | | David W | | Periphe | | | S | [id number] | /15 | | /15 | Theen [...] | | | +---------+---------+---------+---------+---------+---------+---------+---------+---------+ | MUSCLE | [id number] | | Active | | Christen | | Muscle | | | PAIN | 1 | /07 | | /07 | J. | | pain | | | | (SNOMED | | | | [place] | | | | | | CT) | | | | ta PALLIATIVE CARE COORDINATOR | | | | +---------+---------+---------+---------+---------+---------+---------+---------+---------+ | DIABETE | [id number] | | Removed | | David W | | Periphe | | | S | 549427 | /11 | | /12 | Theen [...] | | | +---------+---------+---------+---------+---------+---------+---------+---------+---------+ | MILD | [id number] | | Removed | | Maulik | | Mild | | | COGNITI | 03 | / | | 24 | Mendels | | cogniti | | [...] uterus | | +---------+---------+---------+---------+---------+---------+---------+---------+---------+ | COLONIC | [id number] | | Active | | Emeka | [...] | | | +---------+---------+---------+---------+---------+---------+---------+---------+---------+ | CONSTIP | [id number] | | Removed | | Emeka | | Constip | | | ATION | 8 | /13 | | /13 | Petre | | ation | | | | (SNOMED | | | | MD | | | | | | CT) | | | | | | | | +---------+---------+---------+---------+---------+---------+---------+---------+---------+ | CHANGE | [id number] | | Removed | | Emeka | | Altered | | | IN | 9 | /13 | | /13 | Petre | | bowel | | | BOWEL | (SNOMED | | | | MD | | functio | | | HABITS | CT) | | | | | | n | | +---------+---------+---------+---------+---------+---------+---------+---------+---------+ | DECREAS | [id number] | | Active | | Emeka | | Decreas | | | ED | 6 | /13 | | /13 | Petre | | e in | | | APPETIT | (SNOMED | | | | MD | | appetit | | | E | CT) | | | | | | e | | +---------+---------+---------+---------+---------+---------+---------+---------+---------+ | WEIGHT | 6118987 | | Active | | Emeka | | Abnorma | | | LOSS | 01 | | | 13 | Petre | | l | | | ABNORMA | (SNOMED | | | | MD | | weight | | | L | CT) | | | | | | loss | | +---------+---------+---------+---------+---------+---------+---------+---------+---------+ | NAUSEA | [id number] | | Removed | | Emeka | | Nausea | | | ALONE | 07 | /13 | | /13 | Petre | | | | | | (SNOMED | | | | MD | | | | | | CT) | | | | | | | | +---------+---------+---------+---------+---------+---------+---------+---------+---------+ | RECTAL | [id number] | | Active | | Emeka | | Rectal | | | BLEEDIN | 2 | /13 | | /13 | Petre | | hemorrh | | | G | (SNOMED | | | | MD | | age | | | | CT) | | | | | | | | +---------+---------+---------+---------+---------+---------+---------+---------+---------+ | DEMENTI | 2358660 | | Active | | Christen | | Dementi | | | A | 6 | /10 | | /10 | J. | | a | | | WITHOUT | (SNOMED | | | | [place] | | | | | | CT) | | | | ta PALLIATIVE CARE COORDINATOR | | | | | BEHAVIO | | | | | | | | | | RAL | | | | | | | | | | DISTURB | | | | | | | | | | ANCE | | | | | | | | | +---------+---------+---------+---------+---------+---------+---------+---------+---------+ | CHRONIC | [id number] | | Active | | Christen | | Chronic | | | | 03 | /10 | | /10 | J. | | | | | PROGRES | (SNOMED | | | | Raum[place] | | progres | | | SIVE | CT) | | | | ta PALLIATIVE CARE COORDINATOR | | sive | | | RENAL | | | | | | | renal | | | FAILURE | | | | | | | failure | | +---------+---------+---------+---------+---------+---------+---------+---------+---------+ | ANEMIA | 1139505 | | Removed | | Christen | | Anemia | | | | 00 | /10 | | /10 | J. | | | | | | (SNOMED | | | | [place] | | | | | | CT) | | | | ta PALLIATIVE CARE COORDINATOR | | | | +---------+---------+---------+---------+---------+---------+---------+---------+---------+ | DEMENTI | [id number] | | Removed | | Christen | | Procedu | | | A | | / | | | J. | | re | | | SCREENI | (SNOMED | | | | [place] | | carried | | | NG | CT) | | | | ta PALLIATIVE CARE COORDINATOR | | out on | | | | | | | | | | | | | | | | | | | | subject | | +---------+---------+---------+---------+---------+---------+---------+---------+---------+ | FALL | [id number] | | Active | | Christen | | At risk | | | RISK | | / | | | J. | | for | | | | (SNOMED | | | | [place] | | falls | | | | CT) | | | | ta PALLIATIVE CARE COORDINATOR | | | | +---------+---------+---------+---------+---------+---------+---------+---------+---------+ | DIABETE | [id number] | | Resolve | | Christen | | Periphe | | | S | [id number] | /14 | d | /15 | J. | | ral | | | MELLITU | (SNOMED | | | | [place] | | neuropa | | | S, TYPE | CT) | | | | ta PALLIATIVE CARE COORDINATOR | | thy | | | II [...] | | | +---------+---------+---------+---------+---------+---------+---------+---------+---------+ | CORNS | [id number] | | Inactiv | | Kali | | Naveen | | | AND | 00 | / | e | / | Palacio | | and | | | CALLOSI | (SNOMED | | | | DPM | | callus | | | TIES | CT) | | | | | | | | +---------+---------+---------+---------+---------+---------+---------+---------+---------+ | HAMMER | [id number] | | Active | | Kali | | Hammer | | | TOE, | 08 | | | / | Palacio | | toe | | | OTHER, | (SNOMED | | | | DPM | | | | | ACQUIRE | CT) | | | | | | | | | D | | | | | | | | | +---------+---------+---------+---------+---------+---------+---------+---------+---------+ | HALLUX | [id number] | | Active | | Kali | | Acquire | | | VALGUS, | 1 | | | | Palacio | | [...] ropathy | | +---------+---------+---------+---------+---------+---------+---------+---------+---------+ | DIABETE | [id number] | | Removed | | Kali | [...] s | | +---------+---------+---------+---------+---------+---------+---------+---------+---------+ | ONYCHOM | 4095143 | | Active | | Kali | | Onychom | | | YCOSIS | | | Palacio | | ycosis | | | | (SNOMED | | | | DPM | | | | | | CT) | | | | | | | | +---------+---------+---------+---------+---------+---------+---------+---------+---------+ | HEARTBU | 6492723 | | Active | | Tiesha | | Heartbu | | | RN | 0 | /19 | | /19 | | | rn | | | | (SNOMED | | | | Hollister | | | | | | CT) | | | | MD | | | | +---------+---------+---------+---------+---------+---------+---------+---------+---------+ | TYPE 2 | [id number] | | Active | | Tiesha | [...] DIABETE | (ICD-10 | /19 | | / | | | diabete | | | S | -CM) | | | | Hollister | | s | | | MELLITU [...] athy | | +---------+---------+---------+---------+---------+---------+---------+---------+---------+ | UTI | [id number] | | Removed | | Pako | | Urinary | | | | 5 | /13 | | /13 | Middlek | | tract | | | | (SNOMED | | | | auff | | infecti | | | | CT) | | | | PALLIATIVE CARE COORDINATOR | | ous | | | | | | | | | | disease | | +---------+---------+---------+---------+---------+---------+---------+---------+---------+ | LOCALIZ | [id number] | | Removed | | D'Elena | | Disorde | | | ED | 09 | /30 | | /30 | Parker | | r of | | | URIELLLIN | (SNOMED | | | | RN [...] | | | +---------+---------+---------+---------+---------+---------+---------+---------+---------+ | LIPOMA | [id number] | | Active | | Lauranc | | Lipoma | | | | 2 | /14 | | /14 | e W | | (clinic | | | | (SNOMED | | | | Lila | | al) | | | | CT) | | | | MD | | | | +---------+---------+---------+---------+---------+---------+---------+---------+---------+ | VITAMIN | 0099812 | | Active | | David Paez | | Vitamin | | | D | 6 | /14 | | /15 | Theen | | D | | | DEFICIE | (SNOMED | | | | MD FACE | | deficie | | | NCY | CT) | | | | FACP | | ncy | | +---------+---------+---------+---------+---------+---------+---------+---------+---------+ | OBESITY | 7954937 | | Active | | David W | | Obesity | | | , BMI | 01 | /14 | | /15 | Theen | | | | | 35-39.9 | (SNOMED | | | | MD FACE | | | | | , ADULT | CT) | | | | FACP | | | | +---------+---------+---------+---------+---------+---------+---------+---------+---------+ | DIABETE | 9299241 | | Removed | | David W | | Periphe | | | S | 656251 | /14 | | /15 | Theen [...] | | | +---------+---------+---------+---------+---------+---------+---------+---------+---------+ | HALLUX | 1675311 | | Inactiv | | Kali | | Acquire | | | VALGUS, | 1 | / | e | /01 | Hakeem | | d | | | | (SNOMED | | | | DPM | | hallux | | | ACQUIRE | CT) | | | | | | valgus | | | D | | | | | | | | | +---------+---------+---------+---------+---------+---------+---------+---------+---------+ | HAMMER | 3009607 | | Inactiv | | Kali | | Hammer | | | TOE, | | | e | / | Palacio | | toe | | | OTHER, | (SNOMED | | | | DPM | | | | | ACQUIRE | CT) | | | | | | | | | D | | | | | | | | | +---------+---------+---------+---------+---------+---------+---------+---------+---------+ | ONYCHOM | 1041491 | | Inactiv | | Kali | | Onychom | | | YCOSIS | | | e | / | Palacio | | ycosis | | | | (SNOMED | | | | DPM | | | | | | CT) | | | | | | | | +---------+---------+---------+---------+---------+---------+---------+---------+---------+ | 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 | | Kali | | Type 2 | | | ROPATHY | (ICD- | | e | / | Palacio [...] ropathy | | +---------+---------+---------+---------+---------+---------+---------+---------+---------+ | DIABETE | [id number] | | Inactiv | | Kali | [...] s | | +---------+---------+---------+---------+---------+---------+---------+---------+---------+ | SCREENI | 2896698 | | Resolve | | Lauranc | | Depress | | | NG FOR | 06 | /10 | d | /10 | e W | | ion | | | DEPRESS | (SNOMED | | | | Lila | | screeni | | | ION | CT) | | | | MD | | ng | | +---------+---------+---------+---------+---------+---------+---------+---------+---------+ | SCREENI | 4115355 | | Resolve | | Lauranc | [...] | | | +---------+---------+---------+---------+---------+---------+---------+---------+---------+ | SCREENI | 7717422 | | Resolve | | Lauranc | [...] ng | | +---------+---------+---------+---------+---------+---------+---------+---------+---------+ | SCREENI | 4232278 | | Removed | | Geetha | [...] ng | | +---------+---------+---------+---------+---------+---------+---------+---------+---------+ | SCREENI | [id number] | | Removed | | Geetha | | Screeni | | | NG FOR | | / | | | Sparks | | ng for | | | UNSPECI | (SNOMED | | | | [facility] | | disorde | | | FIED | CT) | | | | | | r | | | CONDITI | | | | | | | | | | ON | | | | | | | | | +---------+---------+---------+---------+---------+---------+---------+---------+---------+ | SCREENI | [id number] | | Removed | | Geetha | | Depress | | | NG FOR | | / | | | Sparks | | ion | | | DEPRESS | (SNOMED | | | | [facility] | | screeni | | | ION | CT) | | | | | | ng | | +---------+---------+---------+---------+---------+---------+---------+---------+---------+ | RENAL | [id number] | | Removed | | Lauranc | [...] e | | +---------+---------+---------+---------+---------+---------+---------+---------+---------+ | EDEMA | 8984891 | | Removed | | Lauranc | | Edema | | | | 08 | /15 | | /11 | e W | | | | | | (SNOMED | | | | Lila | | | | | | CT) | | | | MD | | | | +---------+---------+---------+---------+---------+---------+---------+---------+---------+ | RENAL | 4220250 | | Active | | Luz | [...] e | | +---------+---------+---------+---------+---------+---------+---------+---------+---------+ | PERIPHE | 4463856 | | Active | | Lauranc | | Periphe | | | RAL | 06 | / | | / | e W | | ral | | | VASCULA | (SNOMED | | | | Lila | | vascula | | | R | CT) | | | | MD | | r | | | DISEASE | | | | | | | disease | | +---------+---------+---------+---------+---------+---------+---------+---------+---------+ | CANDIDI | [id number] | | Active | | Susanna | | Candidi | | | ASIS, | 6 | | | | Medel | | asis of | | | SKIN | (SNOMED | | | | MD | | skin | | | | CT) | | | | | | | | +---------+---------+---------+---------+---------+---------+---------+---------+---------+ | DYSURIA | [id number] | | Removed | | Erica | | Dysuria | | | | 1 | /31 | | / | Paul | | | | | | (SNOMED | | | | MA | | | | | | CT) | | | | | | | | +---------+---------+---------+---------+---------+---------+---------+---------+---------+ | VAGINIT | [id number] | | Removed | | Erica | | Vaginit | | | IS | 1 | /31 | | /31 | Paul | | is | | | | (SNOMED | | | | MA | | | | | | CT) | | | | | | | | +---------+---------+---------+---------+---------+---------+---------+---------+---------+ | RLQ | 3759698 | | Resolve | | Lauranc | | Right | | | PAIN | 02 | | d | /11 | e W | | lower | | | | (SNOMED | | | | Lila | | quadran | | | | CT) | | | | MD | | t pain | | +---------+---------+---------+---------+---------+---------+---------+---------+---------+ | ABDOMIN | [id number] | | Resolve | | Lauranc | [...] | | | PROPHYL | (ICD-10 | / | d | / | e W | | [...] | | | +---------+---------+---------+---------+---------+---------+---------+---------+---------+ | KNEE | [id number] | | Active | | Lauranc | | Knee | | | PAIN | 3 | /14 | | /14 | e W | | pain | | | | (SNOMED | | | | Lila | | | | | | CT) | | | | MD | | | | +---------+---------+---------+---------+---------+---------+---------+---------+---------+ | Questio | 6078940 | | Correct | | Lauranc | | Vertebr | | | n of | 08 | | ion | | e W | | obasila | [...] | | | +---------+---------+---------+---------+---------+---------+---------+---------+---------+ | VERTEBR | [id number] | | Active | | Lauranc | | Vertebr | | | OBASILA | | | | e W | | obasila | [...] e | | +---------+---------+---------+---------+---------+---------+---------+---------+---------+ | VERTIGO | 3295885 | | Active | | Luz | | Vertigo | | | | 01 | / | | / | Asad | | | | | | (SNOMED | | | | RN | | | | | | CT) | | | | | | | | +---------+---------+---------+---------+---------+---------+---------+---------+---------+ | CHEST | [id number] | | Inactiv | | Genny | | Chest | | | PAIN | 9 | | e | /02 | Kaufman | | pain | | | | (SNOMED | | | | | | | | | | CT) | | | | | | | | +---------+---------+---------+---------+---------+---------+---------+---------+---------+ | CHEST | [id number] | | Inactiv | | Lauranc | | Acute | | | PAIN, | | | e | / | e W | | chest | | | ACUTE | (SNOMED | | | | Lila | | pain | | | | CT) | | | | MD | | | | +---------+---------+---------+---------+---------+---------+---------+---------+---------+ | DYSPHAG | R13.10 | | Removed | | Patricia | | Dysphag | | | IA | (ICD-10 | | | | | | ia, | | | UNSPECI | -CM) | | | | Stewart | | unspeci | | | FIED | | | | | CCMA | | fied | | +---------+---------+---------+---------+---------+---------+---------+---------+---------+ | CEREBRO | [id number] | | Active | | Rogers | | Cerebro | | | 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 | | /28 | Liath | | vascula | | | R | (SNOMED | | | | MD | | r | | | DISEASE | CT) | | | | | | disease | | +---------+---------+---------+---------+---------+---------+---------+---------+---------+ | History | [id number] | | Active | | Rogers | | Cerebra | | | of | | | | / | Laith | [...] | | | +---------+---------+---------+---------+---------+---------+---------+---------+---------+ | DIABETI | [id number] | | Removed | | Rogers | | Diabeti | | | C | 06 | / | | / | Laith | | c | | | PERIPHE | (SNOMED | | | | MD | | periphe | | | RAL | CT) | | | | | | ral | | | NEUROPA | | | | | | | neuropa | | | THY | | | | | | | thy | | +---------+---------+---------+---------+---------+---------+---------+---------+---------+ | HYPERLI | [id number] | | Active | | Rogers | | Hyperli | | | PIDEMIA | 4 | /30 | | /30 | Laith | | pidemia | | | | (SNOMED | | | | MD | | | | | | CT) | | | | | | | | +---------+---------+---------+---------+---------+---------+---------+---------+---------+ | History | [id number] | | Active | | Rogers | [...] e | | +---------+---------+---------+---------+---------+---------+---------+---------+---------+ | CEREBRA | [id number] | | Correct | | Rogers | [...] s | | +---------+---------+---------+---------+---------+---------+---------+---------+---------+ | ABDOMIN | [id number] | | Removed | | Patricia | [...] | | | +---------+---------+---------+---------+---------+---------+---------+---------+---------+ | RLQ | [id number] | | Removed | | Patricia | [...] fied | | +---------+---------+---------+---------+---------+---------+---------+---------+---------+ | CARPAL | [id number] | | Active | | Rogers | | Carpal | | | TUNNEL | 9 | /25 | | /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 | | | | MD | | 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, LEFT | CT) | | | | | | e | | +---------+---------+---------+---------+---------+---------+---------+---------+---------+ | Questio | [id number] | | Removed | | Rogers | [...] | | | +---------+---------+---------+---------+---------+---------+---------+---------+---------+ | GAIT | [id number] | | Active | | Rogers | | Abnorma | | | IMBALAN | 2 | | | | Laith | | l gait | | | CE | (SNOMED | | | | MD | | | | | | CT) | | | | | | | | +---------+---------+---------+---------+---------+---------+---------+---------+---------+ | BRAIN | [id number] | | Correct | | Rogers | | 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 | | | STROKE | (SNOMED | | | | MD | | stroke | | | | CT) | | | | | | syndrom | | | | | | | | | | e | | +---------+---------+---------+---------+---------+---------+---------+---------+---------+ | PARESTH | [id number] | | Removed | | Rogers | | Paresth | | | ESIA, | | | | / | Laith | | esia of | | | HANDS | (SNOMED | | | | MD | | hand | | | | CT) | | | | | | | | +---------+---------+---------+---------+---------+---------+---------+---------+---------+ | PERIPHE | [id number] | | Correct | | Rogers | | Periphe | | | RAL | | | ion | /25 | Laith | | ral | | | NEUROPA | (SNOMED | | | | MD | | nerve | | | THY | CT) | | | | | | disease | | +---------+---------+---------+---------+---------+---------+---------+---------+---------+ | THYROID | [id number] | | Active | | Luz | | Thyroid | | | NODULE | 05 | /20 | | /20 | Eladio | | nodule | | | | (SNOMED | | | | [facility] | | | | | | CT) | | | | | | | | +---------+---------+---------+---------+---------+---------+---------+---------+---------+ | TIA | [id number] | | Active | | Lauranc | | Transie | | | | 00 | / | | | e W | | nt | | | | (SNOMED | | | | Lila | | cerebra | | | | CT) | | | | MD | | l | | | | | | | | | | ischemi | | | | | | | | | | a | | +---------+---------+---------+---------+---------+---------+---------+---------+---------+ | SYNCOPE | [id number] | | Removed | | Lauranc | | Syncope | | | | 07 | / | | / | e W | | | | | | (SNOMED | | | | Lila | | | | | | CT) | | | | MD | | | | +---------+---------+---------+---------+---------+---------+---------+---------+---------+ | GASTROP | [id number] | | Active | | Lauranc | | 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 | | | | (SNOMED | | | | Lila | | syndrom | | | | CT) | | | | MD | | e | | +---------+---------+---------+---------+---------+---------+---------+---------+---------+ | CONSTIP | [id number] | | Active | | Lauranc | | Chronic | | | ATION, | | / | | 08 | e W | | | | | CHRONIC | (SNOMED | | | | Lila | | constip | | | | CT) | | | | MD | | ation | | +---------+---------+---------+---------+---------+---------+---------+---------+---------+ | POSTHER | [id number] | | Active | | Lauranc | | Posther | | | 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 | (SNOMED | | | | Lila | | neuralg | | | IA | CT) | | | | MD | | ia | | +---------+---------+---------+---------+---------+---------+---------+---------+---------+ | DIZZINE | [id number] | | Removed | | Lauranc | | Dizzine | | | SS | 03 | /08 | | /08 | e W | | ss | | | | (SNOMED | | | | Lila | | | | | | CT) | | | | MD | | | | +---------+---------+---------+---------+---------+---------+---------+---------+---------+ | DEHYDRA | [id number] | | Removed | | Lauranc | | Dehydra | | | TION | 6 | /08 | | | e W | | tion | | | | (SNOMED | | | | Lila | | | | | | CT) | | | | MD | | | | +---------+---------+---------+---------+---------+---------+---------+---------+---------+ | DIABETE | [id number] | | Removed | | Lauranc | [...] | | | +---------+---------+---------+---------+---------+---------+---------+---------+---------+ | HYPERTE | [id number] | | Active | | Lauranc | [...] Take one | | | POTASSIUM | [id number] | [facility] | | CHLORIDE | tab daily | | | CHLORIDE | 5 | Ankur DNP | | ER 10 MEQ | in the AM | | | | | PALLIATIVE CARE COORDINATOR | | CR-TABS | | | | | | | + + + + + + + + | RELION | Use to | | | INSULIN | [id number] | [facility] | | INSULIN | inject | | | SYRINGE-NE | 2 | Ankur DNP | | SYRINGE | insulin 5 | | | EDLE U-100 | | PALLIATIVE CARE COORDINATOR | | 31G X | times | | | | | | | 10/09" 0.5 | daily Dx | | | | | | | ML | Code | | | | | | | | E11.40 | | | | | | + + + + + + + + | HUMALOG | 12 Units | | | INSULIN | [id number] | [facility] | | KWIKPEN | before | | | LISPRO | 9 | Ankur DNP | | 100 | meals | | | | | PALLIATIVE CARE COORDINATOR | | UNIT/ML | SS:150-175 | | [...] Take one | | | LINACLOTID | [id number] | [facility] | | 145 MCG | tablet | | | E | 0 | Ankur DNP | | CAPS | daily as | | | | | PALLIATIVE CARE COORDINATOR | | | needed for | | | | | | | | | | | | | | | | constipati | | | | | | | | on. | | | | | | + + + + + + + + | COLACE 100 | 1 pill | | | DOCUSATE | [id number] | [facility] | | MG CAPS | twice | | | SODIUM | 0 | Ankur DNP | | | daily for | | | | | PALLIATIVE CARE COORDINATOR | | | soft | | | | | | | | stools | | | | | | + + + + + + + + | VITAMIN D | Take one | | | CHOLECALCI | [id number] | [facility] | | 1000 UNIT | tablet | | | FEROL | 1 | Ankur DNP | | TABS | daily in | | | | | PALLIATIVE CARE COORDINATOR | | | the AM | | | | | | + + + + + + + + | VOLTAREN 1 | apply 3-4 | | | DICLOFENAC | 5566231886 | [facility] | | % GEL | times QD | | | SODIUM | 7 | Ankur DNP | | | PRN pain, | | | | | PALLIATIVE CARE COORDINATOR | | | max 4 | | | | | | | | grams per | | | | | | | | applicatio | | | | | | | | n | | | | | | + + + + + + + + | CLONAZEPAM | Take one | | | CLONAZEPAM | 8914148825 | [facility] | | 0.5 MG | tablet | | | | 1 | Ankur DNP | | TABS | every 24 | | | | | PALLIATIVE CARE COORDINATOR | | | hours as | | | | | | | | needed for | | | | | | | | anxiety | | | | | | + + + + + + + + | LASIX 80 | 1 tab by | | | FUROSEMIDE | 9286929865 | [facility] | | MG TABS | mouth one | | | | 5 | Ankur DNP | | | time per | | | | | PALLIATIVE CARE COORDINATOR | | | day in the | | | | | | | | AM | | | | | | + + + + + + + + | LYRICA 100 | TAKE 1 | | | PREGABALIN | 8415952312 | [facility] | | MG CAPS | CAPSULE BY | | | | 8 | Ankur DNP | | | MOUTH | | | | | PALLIATIVE CARE COORDINATOR | | | THREE | | | [...] TAKE 1 | | | IRBESARTAN | 1307504836 | [facility] | | 300 MG | TABLET BY | | | | 3 | Ankur DNP | | TABS | MOUTH ONCE | | | | | PALLIATIVE CARE COORDINATOR | | | DAILY | | | | | | + + + + + + + + | EQ STOOL | TAKE 1 | | | DOCUSATE | [id number] | [facility] | | SOFTENER | CAPSULE BY | | | SODIUM | 5 | Ankur DNP | | 100 MG | MOUTH | | | | | PALLIATIVE CARE COORDINATOR | | CAPS | TWICE | | | | | | | | DAILY FOR | | | | | | | | SOFT | | | | | | | | STOOLS | | | | | | + + + + + + + + | BASAGLAR | INJECT 68 | | | INSULIN | 1493538317 | [facility] | | KWIKPEN | UNITS | | | GLARGINE | 9 | Ankur DNP | | 100 | SUBCUTANEO | | | | | PALLIATIVE CARE COORDINATOR | | UNIT/ML | USLY IN | [...] Take one | | | PANTOPRAZO | 0387058792 | [facility] | | LE SODIUM | tablet by | | | LE SODIUM | 8 | Ankur DNP | | 40 MG TBEC | mouth once | | | | | PALLIATIVE CARE COORDINATOR | | | daily | | | | | | + + + + + + + + | NYSTATIN-T | Apply thin | | | NYSTATIN-T | 9409547014 | [facility] | | RIAMCINOLO | layer to | | | RIAMCINOLO | 5 | Ankur DNP | | NE | affected | | | NE | | PALLIATIVE CARE COORDINATOR | | 881116-1.1 | area BID | | | | | | | UNIT/GM-% | prn for | | | | | | | CREA | itching | | | | | | + + + + + + + + | LINZESS | Take one | | | LINACLOTID | [id number] | [facility] | | 145 MCG | tablet | | | E | 0 | Ankur DNP | | CAPS | daily for | | | | | PALLIATIVE CARE COORDINATOR | | | constipati | | | | | | | | on. | | | | | | + + + + + + + + | FUROSEMIDE | TAKE 1 | | | FUROSEMIDE | 9572650695 | [facility] | | 80 MG | TABLET BY | | | | 5 | Ankur DNP | | TABS | MOUTH ONCE | | | | | PALLIATIVE CARE COORDINATOR | | | DAILY IN | | | | | | | | THE | | | | | | | | MORNING | | | | | | + + + + + + + + | VOLTAREN 1 | apply 3-4 | | | DICLOFENAC | 8329037048 | Fredy | | % GEL | [...] TAKE 1 | | | CHOLECALCI | 2581727810 | [facility] | | 1000 UNIT | TABLET BY | | | FEROL | 0 | Ankur DNP | | TABS | MOUTH ONCE | | | | | PALLIATIVE CARE COORDINATOR | | | DAILY IN | | | | | | | | THE | | | | | | | | MORNING | | | | | | + + + + + + + + | ONETOUCH | Use to | | | BLOOD | 1927673497 | [facility] | | VERIO | test | | | GLUCOSE | 1 | Ankur DNP | | w/Device | glucose | | | MONITORING | | PALLIATIVE CARE COORDINATOR | | KIT | four times | | | SUPPL | | | | | daily Dx | | | | | | | | , | | | | | | | | SMITH: 99 | | | | | | | | years | | | | | | + + + + + + + + | RELION | use with | | | BLOOD | 3767163783 | [facility] | | PRIME | test [...] Use strip | | | GLUCOSE | 6554072305 | [facility] | | ULTRA BLUE | to checl | | | BLOOD | 0 | Ankur DNP | | STRP | glucose | | | | | PALLIATIVE CARE COORDINATOR | | | four times | | | | | | | | daily. | | | | | | | | Dx: 11 | | | | | | | | SMITH: 99 | | | | | | | | years | | | | | | + + + + + + + + | RELION | USE | | | INSULIN | 4201685375 | [facility] | | INSULIN | SYRINGE 4 | | | SYRINGE-NE | 2 | Ankur DNP | | SYRINGE | TIMES | | | EDLE U-100 | | PALLIATIVE CARE COORDINATOR | | 31G X | DAILYDx | | | | | | | 10/09" 0.5 | Code | | | | | | | ML | E11.40 | | | | | | + + + + + + + + | BD PEN | USE PEN | | | INSULIN | 3670269648 | [facility] | | NEEDLE | NEEDLE(S) | | | PEN NEEDLE | 9 | Ankur DNP | | SHORT U/F | 4 TIMES | | | | | PALLIATIVE CARE COORDINATOR | | 31G X 8 MM | DAILYDx | | | | | | | | Code | | | | | | | | E11.40 | | | | | | + + + + + + + + | ONETOUCH | Use strip | | | GLUCOSE | 6833655628 | [facility] | | TERRELL STRP | to checl | | | BLOOD | 0 | Ankur DNP | | | glucose | | | | | PALLIATIVE CARE COORDINATOR | | | four times | | [...] Use to | | | GLUCOSE | 3510363587 | [facility] | | BLOOD | check [...] Take one | | | IRBESARTAN | 4627294657 | [facility] | | 300 MG | tablet | | | | 3 | Ankur DNP | | TABS | daily | | | | | PALLIATIVE CARE COORDINATOR | + + + + + + + + | BD INSULIN | Use to | | | INSULIN | 2688471058 | [facility] | | SYRINGE | inject | | | SYRINGE-NE | 6 | Ankur DNP | | ULTRAFINE | insulin 5 | | | EDLE U-100 | | PALLIATIVE CARE COORDINATOR | | 29G X 1/2" | times per | | | | | | | 0.5 ML | day | | | | | | + + + + + + + + | RELION | Use to | | | GLUCOSE | 3395146372 | [facility] | | BLOOD | check | | | BLOOD | 4 | Ankur DNP | | GLUCOSE | blood | | | | | PALLIATIVE CARE COORDINATOR | | TEST STRP | sugars | [...] use with | | | BLOOD | 1737630493 | [facility] | | PRIME | test | | | GLUCOSE | 2 | Ankur DNP | | MONITOR | strips to | | | MONITORING | | PALLIATIVE CARE COORDINATOR | | DYLAN | test BG | | | SUPPL | | | | | daily | | | | | | + + + + + + + + | RELION | use when | | | GLUCOSE | 0379112487 | [facility] | | BLOOD | testing BG | | | BLOOD | 4 | Ankur DNP | | GLUCOSE | | | | | | PALLIATIVE CARE COORDINATOR | | TEST STRP | | | | | | | + + + + + + + + | BIOTIN 1 | Take one | | | BIOTIN | 8488089251 | Lorri | | MG CAPS | daily in | | | | 2 | Prabhakar | | | the AM | | | | | NCMA | + + + + + + + + | BASAGLAR | 68 Units | | | INSULIN | 9712745965 | [facility] | | KWIKPEN | every | | | GLARGINE | 9 | Ankur DNP | | 100 | morning | | | | | PALLIATIVE CARE COORDINATOR | | UNIT/ML | (34 units | | | | | | | SOPN | on each | | | | | | | | side) | | | | | | + + + + + + + + | BASAGLAR | 65 Units | | | INSULIN | 4874240600 | [facility] | | KWIKPEN | every | | | GLARGINE | 9 | Ankur DNP | | 100 | morning | | | | | PALLIATIVE CARE COORDINATOR | | UNIT/ML | | | | | | | | SOPN | | | | | | | + + + + + + + + | BASAGLAR | 60 Units | | | INSULIN | 9094842038 | [facility] | | KWIKPEN | every | | | GLARGINE | 9 | Ankur DNP | | 100 | morning | | | | | PALLIATIVE CARE COORDINATOR | | UNIT/ML | | | | | | | | SOPN | | | | | | | + + + + + + + + | RELION | Use daily | | | GLUCOSE | 4150055646 | [facility] | | BLOOD | to check | | | BLOOD | 4 | Ankur DNP | | GLUCOSE | blood | | | | | PALLIATIVE CARE COORDINATOR | | TEST STRP | sugar | | | | | | + + + + + + + + | DIABETIC | 1 pair per | | | DIABETIC | | [facility] | | ORTHOTIC | custom | | | ORTHOTIC | | Ankur DNP | | SHOES | fit from | | | SHOES | | PALLIATIVE CARE COORDINATOR | | | podiatry | | | | | | | | E11.65, | | | | | | | | e11.21 | | | | | | + + + + + + + + | DIABETIC | 1 pair per | | | FOOT CARE | 1847384987 | [facility] | | INSOLES | custom | | | PRODUCTS | 1 | Ankur DNP | | | fit from | | | | | PALLIATIVE CARE COORDINATOR | | | podiatry | | | | | | | | Dx. | | | | | | | | E11.65, | | | | | | | | e11.21 | | | | | | + + + + + + + + | BD INSULIN | Use 5 | | | INSULIN | 7264079737 | [facility] | | SYRINGE | times | | | SYRINGE-NE | 1 | Ankur DNP | | ULTRAFINE | daily to | | | EDLE U-100 | | PALLIATIVE CARE COORDINATOR | | 29G X 1/2" | inject [...] Use daily | | | INSULIN | 4744567698 | [facility] | | NEEDLE | to inject | | | PEN NEEDLE | 0 | Ankur DNP | | ORIGINAL | insulin | | | | | PALLIATIVE CARE COORDINATOR | | U/F 29G X | | | | | | | | 12.7MM | | | | | | | + + + + + + + + | RELION PEN | | | | INSULIN | 3855158715 | [facility] | | NEEDLES | | | | PEN NEEDLE | 4 | Ankur DNP | | 31G X 8 MM | | | | | | PALLIATIVE CARE COORDINATOR | + + + + + + + + | MISC | | | | MISC | | [facility] | | | | | | | | Ankur DNP | | | | | | | | PALLIATIVE CARE COORDINATOR | + + + + + + + + | NERVE | | | | NERVE | | [facility] | | PAIN | | | | PAIN | | Ankur DNP | | | | | | | | PALLIATIVE CARE COORDINATOR | + + + + + + + + | HEARTBU | | | | HEARTBU | | [facility] | | RN/NAUSEA* | | | | RN/NAUSEA* | | Ankur DNP | | | | | | | | PALLIATIVE CARE COORDINATOR | + + + + + + + + | STROKE | | | | STROKE | | [facility] | | PREVENTION | | | | PREVENTION | | Ankur DNP | | | | | | | | PALLIATIVE CARE COORDINATOR | + + + + + + + + | BLOOD | | | | BLOOD | | [facility] | | PRESSURE | | | | PRESSURE | | Ankur DNP | | * | | | | * | | PALLIATIVE CARE COORDINATOR | + + + + + + + + | DIABETE | | | | DIABETE | | [facility] | | S | | | | S | | Ankur DNP | | | | | | | | PALLIATIVE CARE COORDINATOR | + + + + + + + + | MIRALAX | 17 gm | | | POLYETHYLE | 7334708024 | [facility] | | POWD | daily | | | NE GLYCOL | 2 | Ankur DNP | | | stirred | | | 3350 | | PALLIATIVE CARE COORDINATOR | | | into 4-8 | | [...] 1 pill | | | DOCUSATE | 0455906366 | [facility] | | MG CAPS | twice | | | SODIUM | 0 | Ankur DNP | | | daily for | | | | | PALLIATIVE CARE COORDINATOR | | | soft | | | | | | | | stools | | | | | | + + + + + + + + | NOVOLOG | 12 Units | | | INSULIN | 6399362196 | [facility] | | 100 | before | | | ASPART | 1 | Ankur DNP | | UNIT/ML | meals | | | | | PALLIATIVE CARE COORDINATOR | | SOLN | SS:150-175 | | [...] 1 capsule | | | PREGABALIN | 8945337889 | [facility] | | MG CAPS | three | | | | 8 | Ankur DNP | | | times | | | | | PALLIATIVE CARE COORDINATOR | | | daily for | | | | | | | | neuropathy | | | | | | + + + + + + + + | LYRICA 100 | 1 tab | | | PREGABALIN | 0903127777 | [facility] | | MG CAPS | three | | | | 8 | Ankur DNP | | | times per | | | | | PALLIATIVE CARE COORDINATOR | | | day. Pt | | | | | | | | states as | | | | | | | | needed | | | | | | + + + + + + + + | PROCHLORPE | Insert one | | | PROCHLORPE | 1434967977 | [facility] | | RAZINE 25 | | | | RAZINE | 0 | Ankur DNP | | MG SUPP | suppositor | | | | | PALLIATIVE CARE COORDINATOR | | | y rectally | | | | | | | | every 24 | | | | | | | | hours as | | | | | | | | needed | | | | | | + + + + + + + + | VICTOZA 18 | .6 mg x 1 | | | LIRAGLUTID | 2453667253 | [facility] | | MG/3ML | week then | | | E | 2 | Ankur DNP | | SOPN | 1.2 mg | | | | | PALLIATIVE CARE COORDINATOR | | | daily per | | | | | | | | week | | | | | | + + + + + + + + | RELION PEN | | | | INSULIN | 5222520676 | David | | NEEDLES | | | | PEN NEEDLE | 4 | Mark DO | | 31G X 8 MM | | | | | | | + + + + + + + + | NOVOLOG | 3U before | | | INSULIN | 1785702971 | Scarlett | | 100 | lunch [...] 1 tid | | | PREGABALIN | 6123979161 | Christen Ramirez | | MG CAPS | | | | | 8 | [place] | | | | | | | | PALLIATIVE CARE COORDINATOR | + + + + + + + + | PROMETHAZI | Take one | | | PROMETHAZI | 6031481947 | [facility] | | NE HCL 25 [...] Insert one | | | PROCHLORPE | 5768529799 | [facility] | | RAZINE 25 | | | | RAZINE | 0 | Charity PERSAUDA | | MG SUPP | suppositor | [...] Take one | | | CLONAZEPAM | 9035249971 | [facility] | | 0.5 MG | [...] Take one | | | PANTOPRAZO | 7536009137 | [facility] | | LE SODIUM | tablet by | | | LE SODIUM | 8 | Ankur DNP | | 40 MG TBEC | mouth once | | | | | PALLIATIVE CARE COORDINATOR | | | daily | | | | | | + + + + + + + + | NITROFURAN | Take one | | | NITROFURAN | 8385886501 | [facility] | | TOIN | capsule [...] x 1 | | | LIRAGLUTID | 7270740587 | Christen J. | | MG/3ML | week then | | | E | 2 | [place] | | SOPN | 1.2 mg | | | | | PALLIATIVE CARE COORDINATOR | | | daily per | | | | | | | | week | | | | | | + + + + + + + + | VICTOZA 18 | Inject 0.6 | | | LIRAGLUTID | 0683873746 | Christen Ramirez | | MG/3ML | mg daily | | | E | 2 | [place] | | SOPN | | | | | | PALLIATIVE CARE COORDINATOR | + + + + + + + + | DRAMAMINE | take 1-2 | | | DIMENHYDRI | 6637524906 | Christen Ramirez | | 50 MG TABS | tabs 4 | | | MARCELA | 2 | [place] | | | times per | | | | | PALLIATIVE CARE COORDINATOR | | | day as | | | | | | | | needed | | | | | | + + + + + + + + | NEURONTIN | take 1 tab | | | GABAPENTIN | 6172933183 | Christen Escudero. | | 300 MG | po tid . | | | | 4 | [place] | | CAPS | Pt states | | | | | PALLIATIVE CARE COORDINATOR | | | as needed | | | | | | + + + + + + + + | PIOGLITAZO | Take 1 tab | | | PIOGLITAZO | 2925245007 | Christen Ramirez | | NE HCL 15 | by mouth | | | NE HCL | 6 | [place] | | MG TABS | one time | | | | | PALLIATIVE CARE COORDINATOR | | | per day in | | | | | | | | the AM | | | | | | + + + + + + + + | NITROFURAN | Take one | | | NITROFURAN | 0921516349 | [facility] | | TOIN | capsule [...] NITROFURAN | | | | NITROFURAN | 2690276722 | [facility] | | TOIN | | [...] Take 1 | | | GLIPIZIDE | 1290849655 | [facility] | | XL 2.5 MG | tablet | | | | 1 | Ankur DNP | | [id number] | p.o. | | | | | PALLIATIVE CARE COORDINATOR | | | q.a.m. | | | | | | + + + + + + + + | NOVOLOG | 3U before | | | INSULIN | 3381460851 | David | | 100 | lunch and | | | ASPART | 1 | Hoyne DO | | UNIT/ML | 5U before | | | | | | | ANGYN | Rona | | | | | | | [...] 3U before | | | INSULIN | 8886734913 | Christen J. | | 100 | lunch and | | | LISPRO | 1 | [place] | | UNIT/ML | 5U before | | | | | PALLIATIVE CARE COORDINATOR | | SOLN | Dinner | | [...] <150 - | | | INSULIN | 9032003487 | Christen Ramirez | | 100 | No insulin | | | LISPRO | 1 | [place] | | UNIT/ML | BS | | | (HUMAN) | | PALLIATIVE CARE COORDINATOR | | SOLN | 150-200 | | [...] Take as | | | EXENATIDE | 6666638923 | Christen Ramirez | | MCG PEN 5 | directed | | | | 1 | [place] | | MCG/0.02ML | once daily | | | | | PALLIATIVE CARE COORDINATOR | | SOPN | in the AM | | | | | | + + + + + + + + | BASAGLAR | 1 pen | | | INSULIN | [id number] | Christen Ramirez | | KWIKPEN | every 3 | | | GLARGINE | 9 | [place] | | 100 | days 56 | | | | | PALLIATIVE CARE COORDINATOR | | UNIT/ML | units q | | | | | | | SOPN | Day | | | | | | + + + + + + + + | BASAGLAR | 56 Units | | | INSULIN | [id number] Thien Hernandez | | KWIKPEN | every | | | GLARGINE | 9 | Hoyne DO | | 100 | morning | | | | | | | UNIT/ML | | | | | | | | SOPN | | | | | | | + + + + + + + + | VICTOZA 18 | Inject 0.6 | | | LIRAGLUTID | [id number] | Christen Ramirez | | MG/3ML | mg daily | | | E | 2 | [place] | | SOPN | | | | | | PALLIATIVE CARE COORDINATOR | + + + + + + + + | VICTOZA 18 | 5 unit AM | | | LIRAGLUTID | [id number] | Christen Ramirez | | MG/3ML | and 5 | | | E | 2 | [place] | | SOPN | units PM | | | | | PALLIATIVE CARE COORDINATOR | + + + + + + + + | BASAGLAR | 1 pen | | | INSULIN | [id number] | Christen Ramirez | | KWIKPEN | every 3 | | | GLARGINE | 9 | [place] | | 100 | days 56 | | | | | PALLIATIVE CARE COORDINATOR | | UNIT/ML | units q | | | | | | | SOPN | Day | | | | | | + + + + + + + + | MECLIZINE | One tab by | | | MECLIZINE | [id number] | Ambrose | | HCL 25 MG | mouth | | | HCL | 0 | Ankur DNP | | TABS | three | | | | | PALLIATIVE CARE COORDINATOR | | | times per | | [...] 56 Units | | | INSULIN | [id number] | Christen Ramirez | | KWIKPEN | by mouth | | | GLARGINE | 9 | [place] | | 100 | every | | | | | PALLIATIVE CARE COORDINATOR | | UNIT/ML | morning | | | | | | | SOPN | | | | | | | + + + + + + + + | SUPREP | mix and | | | NA | [id number] | Maulik | | BOWEL PREP | [...] mix and | | | NA | [id number] | Emeka | | BOWEL PREP | [...] pill BID | | | DOCUSATE | [id number] | Mabrose | | MG CAPS | | | | SODIUM | 0 | Ankur DNP | | | | | | | | PALLIATIVE CARE COORDINATOR | + + + + + + + + | RELION | Use daily | | | GLUCOSE | [id number] | Tiesha | | BLOOD | to check | | | BLOOD | 4 | Hollister MD | | GLUCOSE | blood | | | | | | | TEST STRP | sugar | | | | | | + + + + + + + + | DIABETIC | 1 pair per | | | DIABETIC | | Tiesha | | ORTHOTIC | custom | | | ORTHOTIC | | Hollister MD | | SHOES | fit from | | | SHOES | | | | | podiatry | | | | | | | | E11.65, | | | | | | | | e11.21 | | | | | | + + + + + + + + | DIABETIC | 1 pair per | | | FOOT CARE | [id number] | Tiesha | | INSOLES | custom | | | PRODUCTS | 1 | Hollister MD | | | fit from | [...] 1 pill | | | CEPHALEXIN | [id number] | Tiesha | | MG CAPS | twice a | | | | 1 | Hollister MD | | | day for 7 | | | | | | | | days | | | | | | + + + + + + + + | BD INSULIN | Use 5 | | | INSULIN | [id number] | Ambrose | | SYRINGE | times | | | SYRINGE-NE | 1 | Ankur DNP | | ULTRAFINE | daily to | | | EDLE U-100 | | PALLIATIVE CARE COORDINATOR | | 29G X 1/2" | inject [...] 56 units | | | INSULIN | [id number] | Kaykay | | UNIT/ML | qAM | | | GLARGINE | 3 | Mora DO | | SOLN | | | | | | | + + + + + + + + | KEFLEX 500 | 1 pill | | | CEPHALEXIN | [id number] | Pako | | MG CAPS | twice a | | | | 1 | Middlekauf | | | day for 7 | | | | | f PALLIATIVE CARE COORDINATOR | | | days | | | | | | + + + + + + + + | LANTUS 100 | 50 units | | | INSULIN | [id number] | Pako | | UNIT/ML | once per | | | GLARGINE | 3 | Middlekauf | | SOLN | day. Pt | | | | | f PALLIATIVE CARE COORDINATOR | | | states she | | | | | | | | is taking | | | | | | | | 56 units | | | | | | | | every AM | | | | | | + + + + + + + + | BIOTIN 1 | Take one | | | BIOTIN | [id number] | Ambrose | | MG CAPS | daily in | | | | 2 | Ankur DNP | | | the AM | | | | | PALLIATIVE CARE COORDINATOR | + + + + + + + + | VICTOZA 18 | | | | LIRAGLUTID | [id number] | Jesus | | MG/3ML | | | | E | 2 | Ethan MD | | SOPN | | | | | | | + + + + + + + + | BYETTA 5 | Take as | | | EXENATIDE | [id number] | Christen Ramirez | | MCG PEN 5 | directed | | | | 1 | [place]ita | | MCG/0.02ML | once daily | | | | | PALLIATIVE CARE COORDINATOR | | SOPN | in the AM | | | | | | + + + + + + + + | VITAMIN D | Take one | | | CHOLECALCI | [id number] | Ambrose | | 1000 UNIT | tablet | | | FEROL | 1 | Ankur DNP | | TABS | daily in | | | | | PALLIATIVE CARE COORDINATOR | | | the AM | | | | | | + + + + + + + + | POTASSIUM | Take one | | | POTASSIUM | [id number] | Ambrose | | CHLORIDE | cap daily | | | CHLORIDE | 1 | Ankur DNP | | ER 10 MEQ | in the AM | | | | | PALLIATIVE CARE COORDINATOR | | CR-CAPS | | | | | | | + + + + + + + + | NEURONTIN | take 1 tab | | | GABAPENTIN | 6773113886 | Jesus | | 300 MG | po tid . | | | | 4 | Ethan MD | | CAPS | Pt states | | | | | | | | as needed | | | | | | + + + + + + + + | LASIX 80 | 1 tab by | | | FUROSEMIDE | [id number] | Ambrose | | MG TABS | mouth one | | | | 5 | Ankur DNP | | | time per | | | | | PALLIATIVE CARE COORDINATOR | | | day in the | | | | | | | | AM | | | | | | + + + + + + + + | LYRICA 100 | 1 tab | | | PREGABALIN | 1471378494 | Christen J. | | MG CAPS | three | | | | 8 | [place]um[place]ita | | | times per | | | | | PALLIATIVE CARE COORDINATOR | | | day. Pt | | | | | | | | states as | | | | | | | | needed | | | | | | + + + + + + + + | OMEPRAZOLE | Take one | | | OMEPRAZOLE | 9164811380 | Ambrose | | 40 MG | by mouth | | | | 0 | Ankur DNP | | CPDR | one time | | | | | PALLIATIVE CARE COORDINATOR | | | per day | | [...] tab by | | | CLOPIDOGRE | 5965928335 | Ambrose | | MG TABS | mouth one | | | L | 1 | Ankur DNP | | | time per | | | BISULFATE | | PALLIATIVE CARE COORDINATOR | | | day in the | | | | | | | | evening | | | | | | + + + + + + + + | LIPITOR 20 | take 1 | | | ATORVASTAT | 2387890294 | Ambrose | | MG TABS | tablet by | | | IN CALCIUM | 3 | Ankur DNP | | | mouth | | | | | PALLIATIVE CARE COORDINATOR | | | daily in | | | | | | | | the | | | | | | | | evening | | | | | | + + + + + + + + | VALSARTAN | Take one | | | VALSARTAN | 4541535181 | Ambrose | | 160 MG | tablet | | | | 7 | Ankur DNP | | TABS | daily in | | | | | PALLIATIVE CARE COORDINATOR | | | the AM | | | | | | + + + + + + + + | PIOGLITAZO | Take 1 tab | | | PIOGLITAZO | 7419432216 | Jesus | | NE HCL 15 [...] 25 units | | | INSULIN | 4522444598 | Jesus | | UNIT/ML | two [...] 18 | | | | LIRAGLUTID | [id number] | Bailey W | | MG/3ML | | | | E | 2 | Lila MD | | SOPN | | | | | | | + + + + + + + + | BYETTA 5 | 0.02 ml | | | EXENATIDE | 9984905778 | Bailey W | | MCG PEN 5 | injection | | | | 1 | Lila MD | | MCG/0.02ML | two times | | | | | | | SOPN | per day | | | | | | + + + + + + + + | DRAMAMINE | take 1-2 | | | DIMENHYDRI | 1458051860 | Bailey W | | 50 MG [...] 1 | | | | BIOTIN | 7580616165 | Kali | | MG CAPS | | | | | 2 | Hakeem DPM | + + + + + + + + | VITAMIN D | | | | CHOLECALCI | 4356101943 | Kali | | 1000 UNIT | | | | FEROL | 1 | Hakeem DPM | | TABS | | | | | | | + + + + + + + + | POTASSIUM | | | | POTASSIUM | 7290068696 | Kali | | CHLORIDE | | | | CHLORIDE | 1 | Palacio DPM | | ER 10 MEQ | | | | | | | | CR-CAPS | | | | | | | + + + + + + + + | BUSPIRONE | 1 TAB | | | BUSPIRONE | 8307136245 | Kali | | HCL 7.5 MG | three | | | HCL | 1 | Palacio DPM | | TABS | times per | | | | | | | | day | | | | | | + + + + + + + + | COLACE 100 | 1 tab by | | | DOCUSATE | [id number] | Kali | | MG CAPS | mouth | | | SODIUM | 0 | Palacio DPM | | | daily at | | | | | | | | bedtime | | | | | | + + + + + + + + | RELION | Use to | | | GLUCOSE | 9320403032 | Kali | | BLOOD | test BG | | | BLOOD | 4 | Palacio DPM | | GLUCOSE | one time | | | | | | | TEST STRP | per day | | | | | | + + + + + + + + | ONDANSETRO | 1 tab | | | ONDANSETRO | 0396375836 | Kali | | N HCL 4 MG | every 4 | | | N HCL | 3 | Palacio DPM | | TABS | hours | | | | | | + + + + + + + + | CILOSTAZOL | 1 tab two | | | CILOSTAZOL | 2200231170 | Kali | | 100 MG | times per | | | | 1 | Palacio DPM | | TABS | day | | | | | | + + + + + + + + | LANTUS 100 | 25 units | | | INSULIN | 4882730652 | Laurance W | | UNIT/ML | two times | | | GLARGINE | 3 | Lila MD | | SOLN | per day | | | | | | + + + + + + + + | NEURONTIN | take 1 tab | | | GABAPENTIN | 7557630483 | Laurance W | | 300 MG [...] tab by | | | FUROSEMIDE | 0148709750 | Laurance W | | MG TABS | mouth one | | | | 5 | Lila MD | | | time per | | | | | | | | day | | | | | | + + + + + + + + | FUROSEMIDE | 1 tab one | | | FUROSEMIDE | 4537247772 | Laurance W | | 40 MG | time per | | | | 5 | Lila MD | | TABS | day | | | | | | + + + + + + + + | BUSPIRONE | 1 TAB | | | BUSPIRONE | 0594641114 | Laurance W | | HCL 7.5 MG | three | | | HCL | 1 | Lila MD | | TABS | times per | | | | | | | | day | | | | | | + + + + + + + + | COLACE 100 | 1 tab by | | | DOCUSATE | [id number] | Laurance W | | MG CAPS | mouth | | | SODIUM | 0 | Lila MD | | | daily at | | | | | | | | bedtime | | | | | | + + + + + + + + | LYRICA 100 | 1 tab | | | PREGABALIN | 5949759367 | Laurance W | | MG CAPS | three | | | | 8 | Lila MD | | | times per | | | | | | | | day | | | | | | + + + + + + + + | GABAPENTIN | Take 2 | | | GABAPENTIN | 5413045455 | Laurance W | | 300 MG [...] by mouth | | | TRIMETHOPR | 1548755087 | Laurance W | | 800-160 | twice a | | | IM-SULFAME | 1 | Lila MD | | MG TABS | day for 3 | | | THOXAZOLE | | | | | days | | | | | | + + + + + + + + | BACTRIM DS | 1 by mouth | | | TRIMETHOPR | 5785172327 | Laurance W | | 800-160 | [...] 1 tab | | | MECLIZINE | 3276339114 | Laurance W | | HCL 25 MG | three | | | HCL | 0 | Lila MD | | TABS | times per | | | | | | | | day | | | | | | + + + + + + + + | GLUCOPHAGE | 1 tab one | | | METFORMIN | 0089530719 | Bailey W | | XR 500 MG | time per | | | HCL | 3 | Lila MD | | [id number] | day | | | | | | + + + + + + + + | BD INSULIN | Use 5 | | | INSULIN | 2489909595 | Bailey W | | SYRINGE | [...] | | | | MISC | | Bailey W | | | [...] 1 tab | | | PREGABALIN | 0359200331 | Bailey W | | MG CAPS [...] Use daily | | | INSULIN | 0248086774 | Ambrose | | NEEDLE | to inject | | | PEN NEEDLE | 0 | Ankur DNP | | ORIGINAL | insulin | | | | | PALLIATIVE CARE COORDINATOR | | U/F 29G X | | | | | | | | 12.7MM | | | | | | | + + + + + + + + | PIOGLITAZO | Take 1 tab | | | PIOGLITAZO | 9797117643 | Laurance W | | NE HCL 15 | by mouth | | | NE HCL | 6 | Lila MD | | MG TABS | one time | | | | | | | | per day | | | | | | + + + + + + + + | FLUCONAZOL | take one | | | FLUCONAZOL | 9669394033 | Franciscoance W | | E 150 MG | tablet PO | | | E | 1 | Lila MD | | TABS | x 1 repeat | | | | | | | | in 3 days | | | | | | + + + + + + + + | LYRICA 50 | TAKE ONE | | | PREGABALIN | 9561228964 | Kesha | | MG CAPS | [...] Take 2 | | | GABAPENTIN | 2006917514 | Laurance W | | 300 MG [...] 0.02 ml | | | EXENATIDE | 5450074487 | Laurance W | | MCG PEN 5 | injection | | | | 1 | Lila MD | | MCG/0.02ML | two times | | | | | | | SOPN | per day | | | | | | + + + + + + + + | BYETTA 5 | 0.2 ml | | | EXENATIDE | 2257244196 | Laurance W | | MCG PEN 5 | injection | | | | 1 | Lila MD | | MCG/0.02ML | two times | | | | | | | SOPN | per day | | | | | | + + + + + + + + | LYRICA 50 | TAKE ONE | | | PREGABALIN | 9972489939 | Laurance W | | MG CAPS [...] 1 tab | | | MECLIZINE | 9327650474 | Laurance W | | HCL 25 MG | three | | | HCL | 0 | Lila MD | | TABS | times per | | | | | | | | day | | | | | | + + + + + + + + | CILOSTAZOL | 1 tab two | | | CILOSTAZOL | 2769287992 | Laurance W | | 100 MG | times per | | | | 1 | Lila MD | | TABS | day | | | | | | + + + + + + + + | ONDANSETRO | 1 tab | | | ONDANSETRO | 2085695956 | Laurance W | | N HCL 4 MG | every 4 | | | N HCL | 3 | Lila MD | | TABS | hours | | | | | | + + + + + + + + | LYRICA 50 | 1 tab | | | PREGABALIN | 5467511744 | Laurance W | | MG CAPS | three | | | | 8 | Lila MD | | | times per | | | | | | | | day | | | | | | + + + + + + + + | KEFLEX 500 | one po TID | | | CEPHALEXIN | 9233623257 | Susanna | | MG CAPS | | | | | 1 | Medel MD | + + + + + + + + | NYSTATIN-T | Apply thin | | | NYSTATIN-T | 0515201399 | Ambrose | | RIAMCINOLO | layer to | | | RIAMCINOLO | 5 | Ankur DNP | | NE | affected | | | NE | | PALLIATIVE CARE COORDINATOR | | 797239-5.1 | area BID | | | | | | | UNIT/GM-% | prn for | | | | | | | CREA | itching | | | | | | + + + + + + + + | FLUCONAZOL | take one | | | FLUCONAZOL | 8022134792 | Susanna | | E 150 MG | tablet PO | | | E | 1 | Gianfranco LUIS | | TABS | x 1 repeat | | | | | | | | in 3 days | | | | | | + + + + + + + + | ASPIRIN | take 1 | | | ASPIRIN | 7016925178 | Bailey W | | 325 MG [...] tab by | | | CLOPIDOGRE | 6775361719 | Laurance W | | MG TABS | mouth one | | | L | 1 | Lila MD | | | time per | | | BISULFATE | | | | | day | | | | | | + + + + + + + + | LYRICA 50 | 1 tab | | | PREGABALIN | 7292797548 | Laurance W | | MG CAPS | three | | | | 8 | Lila MD | | | times per | | | | | | | | day | | | | | | + + + + + + + + | GLUCOPHAGE | 1 tab one | | | METFORMIN | 2720107067 | Laurance W | | XR 500 MG | time per | | | HCL | 3 | Lila MD | | [id number] | day | | | | | | + + + + + + + + | MECLIZINE | One tab by | | | MECLIZINE | 3416802547 | Laurance W | | HCL 25 [...] 10ml's two | | | METFORMIN | 2144646431 | Laurance W | | MG/5ML | [...] Take 2 | | | GABAPENTIN | 3621784102 | Laurance W | | 300 MG [...] TAB one | | | VALSARTAN | 7256515495 | Bailey W | | 160 MG | time per | | | | 8 | Lila MD | | TABS | day | | | | | | + + + + + + + + | DULOXETINE | 1 tab one | | | DULOXETINE | 3609268032 | Bailey W | | HCL 30 MG | time per | | | HCL | 6 | Lila MD | | CPEP | day | | | | | | + + + + + + + + | GABAPENTIN | take 2 | | | GABAPENTIN | 4381038047 | Laurance W | | 300 MG [...] tab one | | | DULOXETINE | 3868955460 | Laurance W | | HCL 30 MG | time per | | | HCL | 6 | Lila MD | | CPEP | day | | | | | | + + + + + + + + | VICTOZA 18 | 1.2 mg | | | LIRAGLUTID | 9838276990 | Laurance W | | MG/3ML | injected | | | E | 2 | Lila MD | | SOPN | martin | | | | | | + + + + + + + + | DIOVAN 320 | 1 TAB one | | | VALSARTAN | 0865521123 | Laurance W | | MG TABS | time per | | | | 4 | Lila MD | | | day | | | | | | + + + + + + + + | MECLIZINE | One tab by | | | MECLIZINE | 9390111166 | Laurance W | | HCL 25 [...] one time | | | VALSARTAN | 7320594877 | Mariano | | MG TABS | per day | | | | 4 | Ariella | | | | | | | | CCMA | + + + + + + + + | GABAPENTIN | take 2 | | | GABAPENTIN | 9348209413 | Mariano | | 300 MG | [...] Take one | | | OMEPRAZOLE | 7751082238 | Laurance W | | 40 MG [...] take 2 | | | GABAPENTIN | 7989072332 | Laurance W | | 300 MG [...] two times | | | MECLIZINE | 1360724666 | Laurance W | | HCL 25 MG | per day | | | HCL | 0 | Lila MD | | TABS | | | | | | | + + + + + + + + | DIOVAN 320 | 1 tab one | | | VALSARTAN | 3367265061 | Laurance W | | MG TABS | time per | | | | 4 | Lila MD | | | day | | | | | | + + + + + + + + | VICTOZA 18 | 0.6 mg | | | LIRAGLUTID | 9699295467 | Laurance W | | MG/3ML | [...] take 1 | | | ASPIRIN | 5089416976 | Rogers | | 325 MG | [...] tab one | | | SITAGLIPTI | 1616800557 | Bailey W | | 100 MG | time per | | | N | 2 | Lila MD | | TABS | day | | | PHOSPHATE | | | + + + + + + + + | DIOVAN 160 | 1 by mouth | | | VALSARTAN | 9425176171 | Bailey W | | MG TABS | every day | | | | 4 | Lila MD | + + + + + + + + | GABAPENTIN | 2 tabs two | | | GABAPENTIN | 1620417651 | Laurance W | | 300 MG | times per | | | | 5 | Lila MD | | CAPS | day | | | | | | + + + + + + + + | LANTUS 100 | 56 units | | | INSULIN | 4292851266 | Laurance W | | UNIT/ML | in the | | | GLARGINE | 3 | Lila MD | | SOLN | morning | | | | | | + + + + + + + + | RIOMET 500 | 10ml's two | | | METFORMIN | 2396244085 | Laurance W | | MG/5ML | [...] tab at | | | GABAPENTIN | 6288708053 | Franciscoance W | | 100 MG | bedtime [...] 28 units | | | INSULIN | 4741204896 | Bailey W | | UNIT/ML | two times | | | GLARGINE | 3 | Lila MD | | SOLN | per day | | | | | | + + + + + + + + | LISINOPRIL | take 1 | | | LISINOPRIL | 0926847676 | Rogers | | 20 MG | tablet by | | | | 1 | Laith LUIS | | TABS | mouth | | | | | | | | daily | | | | | | + + + + + + + + | MECLIZINE | two times | | | MECLIZINE | 4752533630 | Mariano | | HCL 25 MG | per day | | | HCL | 0 | Ariella | | TABS | | | | | | CCMA | + + + + + + + + | ERGOCALCIF | One | | | ERGOCALCIF | 9909007286 | Mariano | | QUANG 26850 | capsule by | | | QUANG [...] two times | | | GABAPENTIN | 9981154407 | Mariano | | 100 MG | per day | | | | 1 | Ariella | | CAPS | | | | | | CCMA | + + + + + + + + | METFORMIN | two times | | | METFORMIN | 6953429297 | Mariano | | HCL 1000 | per day | | | HCL | 5 | Ariella | | MG TABS | | | | | | CCMA | + + + + + + + + | RIOMET 500 | 10ml QAM | | | METFORMIN | 1493833564 | Mariano | | MG/5ML | Liquid due | | | HCL | 1 | Ariella | | SOLN | to | | | | | CCMA | | | Dysphagia | | | | | | + + + + + + + + | ASPIRIN EC | take 1 | | | ASPIRIN | 7163746273 | Mariano | | 325 MG | tablet | | | | 1 | Ariella | | TBEC | daily | | | | | CCMA | + + + + + + + + | ASPIRIN 81 | one time | | | ASPIRIN | 5515779781 | Mariano | | MG ORAL | per day | | | | 5 | Ariella | | TABLET | | | | | | CCMA | + + + + + + + + | GABAPENTIN | 1 by mouth | | | GABAPENTIN | 4700268192 | Laurance W | | 100 MG [...] take 1 | | | ATORVASTAT | 5464184406 | Laurance W | | MG TABS | tablet by | | | IN CALCIUM | 3 | Lila MD | | | mouth | | | | | | | | daily | | | | | | + + + + + + + + | ASPIRIN EC | take 1 | | | ASPIRIN | 7105000381 | Rogers | | 325 MG | tablet | | | | 1 | Laith MD | | TBEC | daily | | | | | | + + + + + + + + | RELION | Use to | | | GLUCOSE | 4260194912 | Bailey W | | BLOOD | test BG | | | BLOOD | 4 | Lila MD | | GLUCOSE | one time | | | | | | | TEST STRP | per day | | | | | | + + + + + + + + | RIOMET 500 | 10ml QAM | | | METFORMIN | 7359273823 | Laurance W | | MG/5ML | Liquid due | | | HCL | 1 | Lila MD | | SOLN | to | | | | | | | | Dysphagia | | | | | | + + + + + + + + | ERGOCALCIF | One | | | ERGOCALCIF | 8739574208 | Laurance W | | QUANG 00097 | capsule by | | | QUANG [...] one tablet | | | DOCUSATE | 4910001384 | Laurance W | | MG CAPS | by mouth | | | SODIUM | 0 | Lila MD | | | at bedtime | | | | | | + + + + + + + + | GABAPENTIN | one tablet | | | GABAPENTIN | 4660228887 | Laurance W | | 100 MG [...] by mouth | | | MECLIZINE | 0027780424 | Laurance W | | HCL 25 [...] by mouth | | | LISINOPRIL | 8771177850 | Laurance W | | 5 MG TABS | one time | | | | 1 | Lila MD | | | per day | | | | | | + + + + + + + + | COLACE 100 | one tablet | | | DOCUSATE | 4646631483 | Laurance W | | MG CAPS | by mouth | | | SODIUM | 0 | Lila MD | | | at bedtime | | | | | | + + + + + + + + | MECLIZINE | 1 by mouth | | | MECLIZINE | 3433444309 | Laurance W | | HCL 25 [...] one tablet | | | GABAPENTIN | 1936734623 | Laurance W | | 100 MG [...] one tablet | | | METFORMIN | 1889186170 | Laurance W | | HCL 1000 | by mouth | | | HCL | 5 | Lila MD | | MG TABS | twice a | | | | | | | | day | | | | | | + + + + + + + + | ASPIRIN 81 | 1 by mouth | | | ASPIRIN | 7327363840 | Laurance W | | MG ORAL | every day | | | | 5 | Lila MD | | TABLET | | | | | | | + + + + + + + + | HUMALOG | BS <150 - | | | INSULIN | 7980204166 | Tiesha | | 100 | No [...] 56 units | | | INSULIN | 5206334109 | Bailey W | | UNIT/ML | [...] | | | | | Active | Donkita | | | | | | | PALLIATIVE CARE COORDINATOR | + + + + + + [...] +------+------+-------+------+-------+------+ + + + | Lab Report: COPY RECEIVED FROM:, IRON AND TOTAL IRON BINDING CAPACITY, C ... | + + + + + + + +---+ + | | FERRITIN | 1057 | ng/mL | 16-288 | H | ferritin, | | | | | | | | serum | + + + + + +---+ + | | POTASSIUM | 4.7 | mmol/L | 3.5-5.3 | N | potassium, | | | | | | | | serum | + + + + + +---+ + | | EGFR | 23 | mL/min/1.7 | > OR = 60 [...] + +---+ + | | GFRC | 20 | mL/min/1.7 | > OR = 60 [...] + +---+ + | | CREATININE | 2.37 | mg/dL | 0.60-0.93 | H | creatinine | | | | | | | | , serum | + + + + + +---+ + | | IRON SATUR | 50 % | % | 16-45 | H | iron | | | % | (CALC) | | | | saturation | | | | | | | | percent, | | | | | | | | serum | + + + + + +---+ + | | TIBC | 278 MCG/DL | ug/dL | 250-450 | N | iron | | | | (CALC) | | | | binding | | | | | | | | capacity, | | | | | | | | total | + + + + + +---+ + | | IRON | 139 | ug/dL | 45-160 | N | iron, | | | | | | | | serum | + + + + + +---+ + + + | Lab Report: COPY RECEIVED FROM:, PROTEIN, TOTAL AND PROTEIN ELECTROPHORE ... | + + + + + +-------+ +---+ + | | IVANA | NEGATIVE | | NEGATIVE | N | antinuclea | | | | | | | | r antibody | + + + +-------+ +---+ + | | APO B/A1 | 48 | mg/dL | 20-275 | N | apolipopro | | | | | | | | tein | | | | | | | | B/apolipop | | | | | | | | rotein A-1 | | | | | | | | ratio, | | | | | | | | serum | + + + +-------+ +---+ + | | GAMMA SER | 0.8 | g/dL | 0.8-1.7 | N | gamma | | | PE | | | | | globulin, | | | | | | | | serum by | | | | | | | | protein | | | | | | | | electropho | | | | | | | | resis | + + + +-------+ +---+ + | | ALPH-1 SR | 0.2 | g/dL | 0.2-0.3 | N | alpha-1 | | | IE | | | | | globulin, | | | | | | | | serum, by | | | | | | | | immunoelec | | | | | | | | trophoresi | | | | | | | | s | + + + +-------+ +---+ + | | ALBUM SER | 3.8 | g/dL | 3.8-4.8 | N | albumin, | | | PE | | | | | serum by | | | | | | | | protein | | | | | | | | electropho | | | | | | | | resis | + + + +-------+ +---+ + | | IGA SERUM | * | mg/dL | | | IgA, serum | + + + +-------+ +---+ + | | PROTEIN, | 6.4 | g/dL | 6.1-8.1 | N | protein, | | | TOT | | | | | total, | | | | | | | | serum | + + + +-------+ +---+ + + + | Lab Report: COPY RECEIVED FROM:, RENAL FUNCTION PANEL, HEMOGLOBIN | + + + + + + + +---+ + | | HGB | 11.0 | g/dL | 11.7-15.5 | L | hemoglobin | | | | | | | | , blood | + + + + + +---+ + | | ALBUMIN | 3.9 | g/dL | 3.6-5.1 | N | albumin, | | | | | | | | serum | + + + + + +---+ + | | PO4 | 2.7 | mg/dL | 2.1-4.3 | N | phosphate, | | | | | | | | serum | + + + + + +---+ + | | CALCIUM | 9.2 | mg/dL | 8.6-10.4 | N | calcium, | | | | | | | | serum | + + + + + +---+ + | | CO2 | 25 | mmol/L | 20-32 | N | [...] + +---+ + | | POTASSIUM | 5.1 | mmol/L | 3.5-5.3 | N | potassium, | | | | | | | | serum | + + + + + +---+ + | | SODIUM | 137 | mmol/L | 135-146 | N | sodium, | | | | | | | | serum | + + + + + +---+ + | | BUN/CREAT | 16 (calc) | | 6-22 | N | urea | | | | | | | | nitrogen/c | | | | | | | | reatinine | | | | | | | | ratio, | | | | | | | | serum | + + + + + +---+ + | | EGFR | 22 | mL/min/1.7 | > OR [...] + +---+ + | | GFRC | 19 | mL/min/1.7 | > OR = 60 [...] + +---+ + | | CREATININE | 2.48 | mg/dL | 0.60-0.93 | H | [...] + +---+ + | | GLUCOSE | 263 | mg/dL | 65-99 | H | blood | | | SER | | | | | glucose | + + + + + +---+ + | | HGB | 11.3 | g/dL | 11.7-15.5 | L | hemoglobin | | | | | | | | , blood | + + + + + +---+ + | | ALBUMIN | 4.1 | g/dL | 3.6-5.1 | N | albumin, | | | | | | | | serum | + + + + + +---+ + | | PO4 | 3.1 | mg/dL | 2.1-4.3 | N | phosphate, | | | | | | | | serum | + + + + + +---+ + | | CALCIUM | 9.7 | mg/dL | 8.6-10.4 | N | calcium, | | | | | | | | serum | + + + + + +---+ + | | CO2 | 28 | mmol/L | 20-32 | N | carbon | | | | | | | | dioxide, | | | | | | | | venous | | | | | | | | blood | + + + + + +---+ + | | CHLORIDE | 105 | mmol/L | 98-110 | N | chloride, | | | | | | | | serum | + + + + + +---+ + | | POTASSIUM | 4.3 | mmol/L | 3.5-5.3 | N | potassium, | | | | | | | | serum | + + + + + +---+ + | | SODIUM | 140 | mmol/L | 135-146 | N | sodium, | | | | | | | | serum | + + + + + +---+ + | | BUN/CREAT | 15 (calc) | | 6-22 | N | urea | | | | | | | | nitrogen/c | | | | | | | | reatinine | | | | | | | | ratio, | | | | | | | | serum | + + + + + +---+ + | | EGFR | 21 | mL/min/1.7 | > OR = 60 [...] + +---+ + | | GFRC | 18 | mL/min/1.7 | > OR = 60 [...] + +---+ + | | CREATININE | 2.54 | mg/dL | 0.60-0.93 | H | creatinine | | | | | | | | , serum | + + + + + +---+ + | | BUN | 37 | mg/dL | 7-25 | H | urea | | | | | | | | nitrogen, | | | | | | | | blood | + + + + + +---+ + | | GLUCOSE | 194 | mg/dL | 65-99 | H | blood | | | SER | | | | | glucose | + + + + + +---+ + Plan of Care + + + + | Type | Date | Detail | + + + + | Appointment | 01:00 PM | Hector DICKEY, [address] | | | | [address] [facility] [address], | | | | [place], [address], | | | | | + + + + | Referral | | Ophthalmology Consult | | | | Huong Rose, | | | | [address], [place], | | | | [place], [address] | | | | | + + + + | Referral | | Ophthalmology Consult | | | | Huong Rose, | | | | [address], [place], | | | | [place], [address] | | | | | + + + + | Referral | | [facility] | | | | Dian Atkins, [address] | | | [address], | | | | [place], [address] | | | | | + + + + +---+ + | | Referral excluded from report: | +---+ + + + + + | Referral | | [facility] | | | | Dian Milly, [address] | | | [address] [facility], | | | | [place], [address] | | | | | + + [...] | adults | + + + + | Patient education | | IRON%[id number] | + + + + Procedures + + + + + | Code | Procedure Name | Date | Entry Date | + + + + + | [id number] | Depression | | | | | Screening | | | + + + + + | [id number] | Overweight | | | + + + + + | [id number] | Overweight | | | + + + + + | [id number] | Overweight | | | + + + + + | [id number] | Overweight | | | + + + + + | [id number] | Overweight | | | + + + + + | CPT-99518 | Glucose by monitor | | | + + + + + | [id number] | Overweight | | | + + + + + | UA CULT IF MULTIPLE | Urinalysis Culture | | | | | If Indicat | | | + + + + + | GLYCO HGB 65268 | Glyco Hemoglobin, | | | | | A1C | | | + + + + + | CPT-37596 | UA Dipstick | | | + + + + + | CPT-27150 46953 | XR Knee WgtB Bilat | | | | | AP W 1-2V-Rt | | | + + + + + | [id number] | Overweight | | | + + + + + | GLYCO HGB 34894 | Glyco Hemoglobin, | | | | | A1C | | | + + + + + | CPT-78563 | Adm 1st Inj No | | | | | counseling or >18 | | | + + + + + | CPT-05953 | Prevnar 13 | | | | | (Pneumococcal >7 | | | + + + + + | [id number] | Overweight | | | + + + + + | CPT-00504 | Physical Therapy | | | | | Evaluation | | | + + + + + | CPT-73706 | Glucose by monitor | | | + + + + + | [id number] | Overweight | | | + + + + + | [id number] | Overweight | | | + + + + + | GLYCO HGB 85547 | Glyco Hemoglobin, | | | | | A1C | | | + + + + + | GLYCO HGB 42309 | Glyco Hemoglobin, | | | | | A1C | | | + + + + + | [id number] | Overweight | | | + + + + + | RISK 76998 | Lipid Profile | | | + + + + + | GLYCO HGB 02724 | Glyco Hemoglobin, | | | | | A1C | | | + + + + + +---+ + | | Order excluded from report: | +---+ + + + + + + | VIT D HYDR 69670 | Vit D, 25 hydroxy | | | + + + + + Vital Signs + + +-------+---------+ + | Date | Name | Value | Unit | Description | + + +-------+---------+ + | | BMI (Body Mass | 36.81 | kg/m2 | Body Mass Index | | | Index) | | | [Ratio] | + + +-------+---------+ + | | BP Diastolic | 63 | mm[Hg] | blood pressure, | | [...] +-------+---------+ + | | Weight Measured | 187.8 | [lb_av] | weight E&M | + + +-------+---------+ + | | BMI (Body Mass | 36.77 | kg/m2 | Body Mass Index | [...] +-------+---------+ + | | BSA (Body | 1.82 | | body surface | | | Surface Area) | | | area | + + +-------+---------+ + | | Heart Rate | 78 | /min | pulse rate E&M | + + +-------+---------+ + | | Height | 60 | [in_us] | height E&M | + + +-------+---------+ + | | Weight Measured | 187.6 | [lb_av] | weight E&M | + + +-------+---------+ + | | BMI (Body Mass | 37.44 | kg/m2 | Body Mass Index | [...] +-------+---------+ + | | BP Systolic | 122 | mm[Hg] | blood pressure, | | | | | | systolic, | | | | | | second | | | | | | observation | + + +-------+---------+ + | | BP Systolic | 122 | mm[Hg] | blood pressure, | | | | | | systolic | + + +-------+---------+ + | | Height | 60 | [in_us] | height E&M | + + +-------+---------+ + | | Weight Measured | 191 | [lb_av] | weight E&M | + [...] | Little interest | PHQ9 Q1 | 0 | | | | or pleasure in [...]
--- OUTSIDE RECORDS SUMMARY | ~2019-03-25 | XMS ---
Demographics + + + | Address | [address] [place] [address] | | | [place] [address] | + + + | Home Phone | | + + + | Preferred Language | Unknown | + + + | Marital Status | D | + + + | Restorationism Affiliation | Unknown | + + + | Race | White | + + + | Ethnic Group | or | + + + Author + + + | Author | [facility] | + + + | Organization | [facility] | + + + | Address | [address] | | | [place] [address] | + + + | Phone | Unavailable | + + + Care Team Providers + + + + | Care Fire Support Man Name | Role | Phone | + + + + Unavailable | Unavailable | + + + + Conditions or Problems No information available. Medications + + + + + + + + | Medication | Instructio | Start Date | Stop Date | Generic | NDC | Provider | | | ns | | | Name | | | + + + + + + + + | BASAGLAR | 68 Units | | | INSULIN | [id number] | Ambrose | | KWIKPEN | every | | | GLARGINE | 9 | Ankur DNP | | 100 | morning | | | | | PARA MACHINE OPERATOR | | UNIT/ML | (34 units | | | | | | | SOPN | on each | | | | | | | | side) | | | | | | + + + + + + + + Medications Administered No information available. Allergies, Adverse Reactions, Alerts No information available. Results +------+------+-------+------+-------+------+ + | Date | Name | Value | Unit | Range | Flag | Descriptio | | | | | | | | n | +------+------+-------+------+-------+------+ + + + | Office Visit: F/u DM | + + + + +--------+-------+---+---+ + | | BG 2H PP | 254 | mg/dL | | | blood | | | | | | | | glucose, 2 | | | | | | | | hours | | | | | | | | postprandi | | | | | | | | al | + + +--------+-------+---+---+ + | | SMOK | never | | | | Tobacco | | | STATUS | smoker | | | | use status | | | | | | | | CPHS | + + +--------+-------+---+---+ + | | MEDS | Done | [...] | | | | ) | + + +--------+-------+---+---+ + Plan of Care + + + + | Type | Date | Detail | + + + + | Appointment | 01:00 PM | Hector DPM, [address] | | | | [address], | | | | [place], [address], | | | | | + + + + | Appointment | 01:00 PM | Ambrose Pascual DNP PARA MACHINE OPERATOR, [address] | | | | [address], | | | | [place], [address], | | | | | + + + + Procedures + + + + + | Code | Procedure Name | Date | Entry Date | + + + + + | CPT-26579 | Glucose by monitor | | | + + + + + | [facility]-[id number] | Overweight | | | + + [...] weight E&M | + + +-------+---------+ + Immunizations No information available. Reason for Visit + + + | Reason For Visit Description | Start Date | + + + | General Notes | | + + + | | Impression & Plan Problem 1: TYPE | | | 2 DIABETES MELLITUS WITH HYPERGLYCEMIA | | | (GMG63-E41.65) Related | | | Problem: TYPE 2 DIABETES MELLITUS WITH | | | DIABETIC NEPHROPATHY (ICD-250.40) | | | (QDS30-Y57.21) Related | | | Problem: DIABETES MELLITUS- TYPE II | | | WITH PERIPHERAL NEUROPATHY- UNCONTROLLED | | | (ICD-250.62) (EOK64-K48.40) Pt is in | | | better [...] OSTEOARTHRITIS- KNEE- RIGHT (ICD-715.96) | | | (PRZ12-S60.9) Pt has been referred to | | [...] breakfast as needed | | | NYSTATIN-TRIAMCINOLONE 251323-4.1 | | | UNIT/GM-% EXTERNAL CREAM | [...] | | because she ran out of [employer] but as | | | soon as she got it back on board her | | | sugars became under better control. Today | | | BS is 254 two hours postprandial. | | | Reports right knee pain has been worse | | | lately. Having difficulty | | | ambulating................................ | | | ....................................Edna | | | Hope [facility] September 23, 2017 4:39 PM | | | 72-year-old female non-smoker here for f/u | | | DM. Daughter states her sugars were out | | | of control because she ran out of Novolog, | | | but as soon as [...] | .........................Ambrose Pascual DNP | | | PARA MACHINE OPERATOR September 23, 2017 4:53 PM | | [...] Number of Children: 7 | | | Roman Catholic/Zoroastrianism: Taoism Primary | | | Language: Chilean Use of Chilean | | | Language: Fluent Risk Factors | | | Tobacco Use: never smoker Alcohol | | | Use:never Drug Use: none Comments: | | | Denies all drug | | | use....................................... | | | .............................Edna Hope | | | [facility], 2017 4:25 PM [...] | | PM Vitals entered by: Edna Nash [facility] on | | | September 23, 2017 [...] by: | | | Ambrose Pascual DNP PARA MACHINE OPERATOR Signed by: Ambrose | | | Ankur RAMIREZ PARA MACHINE OPERATOR on 09/23/2017 Method used: | | | Electronically to [facility] [place]* | | | (retail) [address] | | | [place] [address] Ph: [phone] | | | Fax: [phone] RxID: [id number] | | | ] | + + + Reason for Referral No information available. Advance Directives No information available. Assessments No information available. Chief Complaint No information available. Encounters + + + + + + | Code | Encounter | Date | Provider | Facility | + + + + + + | CPT-50576 | [facility] - Est | | Ambrose Pascual DNP | [facility] | | | Level III | | PARA MACHINE OPERATOR | [place] | | | ([id number]) | | | | + + + + + + Family History No information available. Functional Status Assessment No information available. History of Past Illness No information available. History of Present Illness No information available. Instructions No information available. Medical (General) History No information available. Payers + + + + | Payer | Policy | Covered [employer] Party | + + + + | [employer]OSS BLUE SHIELD | [id number] | [place] | | [phone] | | | + + + + | HEALTH NET COMMERCIAL AFTER | [id number] | [place] | | 1--18 | | | + + + + | HEALTH NET ADVANTAGE AFTER | [id number] | [place] | | 118 | | | + + + + | [place] | [id number] | [place] | | ADVANTAGE BEFORE 1- | | | + + + + | [facility] | | [place] | | SERVICES | | | + + + + | BLUE CROSS BLUE SHIELD | | [place] | | ([id number]) | | | + + + + | [place]ALTH NET [place] | [id number] | [place] | | ADVANTAGE | | | + + + + | [employer] BLUE SHIELD | [id number] | [place] | | [phone] | | | + + + + | HEALTH NET USE FOR | [id number] | [place] | | [place]([id number]) | | | + + + + | BLUE CROSS BLUE SHIELD | [id number] | [place] | | [phone] | | | + + + + | HEALTH NET ([id number]) | [id number] | [place] | + + + + | BLUE CROSS BLUE SHIELD | [id number] | [place] | | [phone] | | | + + + + | HEALTH NET MEDICARE | [id number] | [place] | | ADVANTAGE | | | + + + + | BLUE CROSS BLUE SHIELD | [id number] | [place] | | [phone] &9 | | | + + + + | HEALTH NET ([id number]) &73 | [id number] | [place] | + + + + | BLUE CROSS BLUE SHIELD | [id number] | [place] | | [phone] &9 | | | + + + + | HEALTH NET MEDICARE | [id number] | [place] | | ADVANTAGE &1821 | | | + + + + | [facility] | | [place] | | SERVICES &1145 | | | + + + + | [place] BLUE CROSS | [id number] | [place] | | &[phone] | | | + + + + | MEDICARE PART B &[id number] | | [place] | + + + + | BLUE CROSS BLUE SHIELD | [id number] | [place] | | [address] &9 | | | + + + + | BL[employer] BLUE SHIELD | | [place] | | ([phone]) | | | + + + + | MEDICARE PART B [place] | | [place] | + + + + | [facility] MEDICARE PART B | | [place] | | &3 | | | + + + + | BLUE CROSS BLUE SHIELD | [id number] | [place] | | [address] &9 | | | + + + + | MEDICARE PART B [place] | | [place] | | &3 | | | + + + + | [facility] | | [place] | | SERVICES &[phone] | | | + + + + | BLUE CROSS BLUE SHIELD | [id number] | [place] | | SECONDARY | | | + + + + | MEDICARE PART B | | [place] | + + + + | [facility] Medicare Part B | | [place] | + + + + | Medicare Part B [place] | | [place] | + + + + | Blue Cross Blue Shield | [id number] | [place] | | [address] | | | + + + + | [facility] | | [place] | | Services | | | + + + + | [facility] | | [place] | | Services | | | + + + + | HEALTH NET ADVANTAGE AFTER | | [place] | | 1-1-18 | | | + + + + | BLUE CROSS BLUE SHIELD | [id number] | [place] | | [address] | | | + + + + Physical Examination + + + + + | Date | Exam | Name | Description | + + + + + | | BP DIASTOLIC | Diastolic blood | 72 | | | | pressure | | + + + + + | | BP DIASTOLIC | BP Diastolic | 72 | + + + + + | | BP SYSTOLIC | Systolic blood | 126 | | | | pressure | | + + + + + | | BP SYSTOLIC | BP Systolic | 126 | + + + + + | | BP JOEL #2 | Diastolic blood | 72 | | | | pressure | | + + + + + | | BP JOEL #2 | BP Diastolic | 72 | + + + + + | | BP SYS #2 | Systolic blood | 126 | | | | pressure | | + + + + + | | BP SYS #2 | BP Systolic | 126 | + + + + + | | RESP RATE | Respiratory Rate | 15 | + + + + + | | PULSE RATE | Heart rate | 84 | + + + + + | | PULSE RATE | Heart Rate | 84 | + + + + + | | TEMPERATURE | Body Temperature | 97.0 | + + + + + | | BMI | Body mass index | 34.70 | | | | (BMI) [Ratio] | | + + + + + | | BMI | Body mass index | 34.70 | | | | (BMI) [Percentile] | | | | | Per age and gender | | + + + + + | | BMI | BMI (Body Mass | 34.70 | | | | Index) | | + + + + + | | WEIGHT | Body weight | 183 | | | | Measured | | + + + + + | | WEIGHT | Weight Measured | 183 | + + + + + | | HEIGHT | Body height | 61 | + + + + + | | HEIGHT | Height | 61 | + + + + + Review of Systems No information available. Social History + + + +-------+ + [...]
--- OUTSIDE RECORDS SUMMARY | ~2019-03-25 | XMS ---
Demographics + + + | Address | [address] [place] [address] | | | [place] [address] | + + + | Home Phone | | + + + | Preferred Language | Unknown | + + + | Marital Status | D | + + + | Anglican Affiliation | Unknown | + + + | Race | White | + + + | Ethnic Group | or | + + + Author + + + | Author | [facility] | + + + | Organization | [facility] | + + + | Address | [address] | | | [place] [address] | + + + | Phone | Unavailable | + + + Care Team Providers + + + + | Care Floor Coverer Apprentice Name | Role | Phone | + + + + Unavailable | Unavailable | + + + + Reason for Visit + + + | Reason For Visit Description | Start Date | + + + | General Notes | | + + + | | Impression & Plan Problem 1: TYPE 2 | | | DIABETES MELLITUS WITH DIABETIC | | | NEPHROPATHY (ICD-250.40) (ZDJ17-U12.21) | | | Related Problem: | | | DIABETES MELLITUS- TYPE II 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- UNCONTROLLED (ICD-250.62) | | | (BVZ95-V38.40) Pt is to continue her | | | modified insulin regimen per Dr. Cornejo's | | | recommendations last Fall. She was unable | | | to get some of her medications recently | | | which will cause her A1C to be elevated on | | | this next check but pt states her | | | glucoses are running between 150 & 300 | | | most of the time. She would just like to | | | make sure she has enough insulin to last | | | her all month as the current orders do not | | | support the amount that she is actually | | | taking. These were modified and pt is | | | instructed to call the office if she has | | | further difficulty getting her medications | | | when shee needs them. Will re-order | | | the lyrica which had been quite useful in | | | managing her peripheral neuropathy in the | | | past but due to insurance changes, she has | | | not had any of this in a while. Pt | | | would like to get diabetic shoes again | | | this year if possible. Will refer to | | | podiatry for evaluation of this. | | | Basaglar kwikpen 100 unit/ml subcutaneous | | | solution pen-injec 56 Units every morning, | | | Relion pen needles 31g x 8 mm, Bd pen | | | needle ultrafine 29g x 12.7mm Use daily to | | | inject insulin, Bd insulin syringe | | | ultrafine 29g x 1/2" 1 ml Use 5 times | | | daily to inject insulin Dx: e11.21 SMITH: | | | 99 months, Relion blood glucose test in | | | vitro strip Use daily to check blood | | | sugar, Novolog 100 unit/ml subcutaneous | | | solution 12 Units before meals | | | SS:150-175:2U;176-200:4U; 201-250: 6U; | | | 251-300: 8U; If greater than 300 please | | | call provider, Glipizide xl 2.5 mg oral | | | tablet extended release 24 hour Take 1 | | | tablet p.o. q.a.m., Lyrica 100 mg oral | | | capsule 1 capsule three times daily for | | | neuropathy Glyco Hemoglobin; A1C, | | | Podiatry Consult ........................ | | | Problem 2: HEARTBURN (ICD-787.1) | | | (SBB29-S65) Omeprazole 40 mg oral capsule | | | delayed release Take one by mouth one | | | time per day 30-60 minutes before | | | breakfast as needed, Pantoprazole sodium | | | 40 mg oral tablet delayed release Take one | | | tablet by mouth once daily | | | ........................ Problem 3: | | | HYPERTENSION (ICD-401.9) (ZSK41-V36) | | | Status: Controlled Valsartan 160 mg oral | | | tablet Take one tablet daily in the AM, | | | Lasix 80 mg oral tablet 1 tab by mouth one | | | time per day in the AM, Potassium | | | chloride er 10 meq oral capsule extended | | | release Take one cap daily in the AM | | | ........................ Problem 4: | | | HYPERLIPIDEMIA (ICD-272.4) | | | (PBD85-R01.5) Lipitor 20 mg oral tablet | | | take 1 tablet by mouth daily in the | | | evening ........................ | | | Problem 5: CEREBROVASCULAR DISEASE | | | (ICD-437.9) (WUT51-T12.9) Plavix 75 mg | | | oral tablet 1 tab by mouth one time per | | | day in the evening | | | ........................ Problem 6: | | | CONSTIPATION (ICD-564.00) (GXA33-U09.00) | | | Recommended pt use the colace and miralax | | | to help her have regular bowel movements. | | | She should also get into the habit of | | | sitting on the toilet and trying to have a | | | BM at least once daily to retrain her | | | body, if possible. Colace 100 mg oral | | | capsule 1 pill twice daily for soft | | | stools, Miralax oral powder 17 gm daily | | | stirred into 4-8 ounces of water; juice or | | | other liquid | | | ........................ Problem 7: | | | DEMENTIA WITHOUT BEHAVIORAL DISTURBANCE | | | (ICD-294.20) (IHF66-N07.90) Living with | | | her daughter. Things are going well for | | | now but daughter has to help with her | | | mediations. | | | ........................ Med List: | | | (Reconciled) BASAGLAR KWIKPEN 100 UNIT/ML | | | SUBCUTANEOUS SOLUTION PEN-INJEC (INSULIN | | | GLARGINE) 56 Units every morning | | | VALSARTAN 160 MG ORAL TABLET (VALSARTAN) | | | Take one tablet daily in the AM LIPITOR | | | 20 MG ORAL TABLET (ATORVASTATIN CALCIUM) | | | take 1 tablet by mouth daily in the | | | evening PLAVIX 75 MG ORAL TABLET | | | (CLOPIDOGREL BISULFATE) 1 tab by mouth one | | | time per day in the evening OMEPRAZOLE | | | 40 MG ORAL CAPSULE DELAYED RELEASE | | | (OMEPRAZOLE) Take one by mouth one time | | | per day 30-60 minutes before breakfast as | | | needed NYSTATIN-TRIAMCINOLONE 207286-9.1 | | | UNIT/GM-% EXTERNAL CREAM | [...] Med List: (Reconciled) | | | HPI Acute A 71-year-old female | | | here tof/u DM. She was recently seen in | | | the ED for Blood sugar of 511 after | | | running out of Novolog for 3 days. Pt | | | needs refills of Novolog, Basaglar and | | | Lyrica. She has not been able to get the | | | Lyrica and is unsure why. Also | | | requesting more testing | | | supplies.................................. | | | ..................................Edna | | | Hope CCMA August 27, 2017 1:50 PM | | | 71-year-old female here to f/u DM. She was | | | recently seen in the ED for Blood sugar | | | of 511 after running out of Novolog for 3 | | | days. Pt needs refills of Novolog, | | | Basaglar and Lyrica. She has not been able | | | to get the Lyrica and is unsure why. | | | Also requesting more testing supplies | | | because [facility] does not carry the right | | | needles anymore. Also having sharp | | | pains in her right knee when she steps. | | | Nothing seems to make the pain worse or | | | better. Sometimes the pain is there and | | | sometimes it is not. Pt's daughter says | | | this has been going on for about a month | | | now. | | | .......................................... | | | .........................Ambrose Pascual DNP | | | CATEGORY MANAGER August 27, 2017 1:59 PM | | | Medical History Type 2 diabetes mellitus, | | | probably diagnosed in her 40s. Initial | | | oral agent therapy with Amaryl and | | | possibly metformin, details somewhat | | | vague. She has been on insulin for many | | | years, currently with Lantus/Basaglar and | | | a.c. meal Humalog Peripheral neuropathy, | | | [...] Number of Children: 7 | | | Bahai/Quaker: Orthodoxy Primary | | | Language: Faroese Use of Faroese | | | Language: Fluent Review of Systems | | | General: History reveals negative for | | | fevers, chills, sweats, anorexia, fatigue, | | | malaise. Eyes: Saw opthalmologist last | | | month. History reveals negative for | | | blurring, diplopia, irritation. | | | Ears/Nose/Throat: History reveals negative | | | for earache, nasal congestion, sore | | | throat, hoarseness. Breast: Unknown | | | when last mammogram was. History reveals | | | negative for change in shape, swelling, | | | masses, nipple discharge, pain, skin | | | changes. Cardiovascular: History | | | reveals positive for peripheral edema. | | | History reveals negative for chest pain, | | | palpitations. Respiratory: History | | | reveals negative for cough, dyspnea, | | | wheezing. Gastrointestinal: History | | | reveals positive for constipation, | | | heartburn. Colonoscopy about a year or so | | | ago. History reveals negative for | | | nausea, vomiting, diarrhea, abdominal | | | pain, melena, hematochezia. | | | Genitourinary: History reveals positive | | | for stress incontinence. History reveals | | | negative for nocturia, dysuria, vaginal | | | discharge, vaginal puritis, vaginal odor. | | | Musculoskeletal: History reveals | | | positive for joint pain. History reveals | | | negative for back pain, joint swelling. | | | Skin: History reveals positive for | | | itching. Back and arms are itchy | | | especially at night. History reveals | | | negative for rash, dryness, suspicious | | | lesions. Neurologic: History reveals | | | positive for paresthesias. Feet are numb | | | and tingly at times. History reveals | | | negative for seizures, headaches. | | | Psychiatric: History reveals positive for | | | anxiety. Sometimes has anxiety at night | | | and has a hard time sleeping. History | | | reveals negative for depression, suicidal | | | ideation. Endocrine: History reveals | | | positive for heat intolerance. History | | | reveals negative for cold intolerance. | | | Hematologic: History reveals negative for | | | abnormal bruising, bleeding, enlarged | | | lymph nodes. Risk Factors Tobacco | | | Use: never smoker Alcohol Use:never | | | Drug Use: none Comments: Pt denies all | | | drug | | | use....................................... | | | .............................Edna Nash | | | [facility] August 27, 2017 11:44 AM Other | | | Risk Factors Caffeine use (drinks/day): 1 | | | cup coffee/soda a week Exercise | | | (times/week): 0 Seatbelt use (%): 100 | | | Sun exposure: occasionally HX of MRSA: No | | | HIV high risk behavior: No Women | | | Health Risk Factors Contraception | | | Hysterectomy Nurse Intake Height: | | | 61in. Weight: 175.2 lbs. Temp: | | | 97.3deg.(tympanic) Pulse: 82(regular) | | | Resp: 16 BMI: 33.22 Wt ch.80 | | | Pulse Oximetry: O2 sat. at rest is 98% on | | | RA BP #1: 128/68 Position:sitting | | | Site:left arm Time:1:47 PM Vitals entered | | | by: Edna Nahs [facility] on August 27, 2017 | | | 1:47 PM Neurovascular Foot Exam | | | | | | (VASCULAR) | | | | RIGHT| LEFT| | | | | | | Dorsalis Pedis | | | | normal| normal| Posterior | | | Tibial | normal| normal| | | | Capillary Refill | diminished| | | | diminished| | | | | | | (SENSORY) | | | | RIGHT| LEFT| | | | | | | Monofilament | | | | diminished| diminished| | | | Temperature | normal| | | | normal| Proprio/Vibrat | diminished| | | | diminished| Comments: No corns, | | | callouses, lacerations or ulcerations. | | | Discussed the importance of daily foot | | | exams with pt. She states she does this | | | with her bath daily. Physical Exam | | | General: Well developed, well nourished, | | | in no apparent distress Head: | | | Normocephalic, atraumatic Eyes: | | | conjunctiva and sclera clear, lids normal | | | Ears: Grossly normal hearing Lungs: | | | Clear bilaterally with normal respiratory | | | effort. Heart: Regular rate and rhythm, | | | normal S1, S2, no obvious murmur Abdomen: | | | Soft, non-tender, overweight, bowel | | | sounds present MSK: Normal gait and | | | station. Pulses: Pulses normal in all | | | extremities Skin: Intact without | | | significant lesions, or rashes. Psych: | | | Alert and oriented to time, person, place. | | | Normal mood and affect, intact judgement | | | and insight. Prescriptions: | | | MIRALAX ORAL POWDER (POLYETHYLENE GLYCOL | | | 3350) 17 gm daily stirred into 4-8 ounces | | | of water, juice or other liquid #1 x 3 | | | Entered and Authorized by: Ambrose Pascual DNP | | | CATEGORY MANAGER Signed by: Ambrose GORDON on | | | 08/27/2017 Method used: Electronically | | | to [facility]* (retail) [address] | | [place] [address] | | | Ph: [phone] Fax: [phone] RxID: | | | [id number] COLACE 100 MG ORAL | | | CAPSULE (DOCUSATE SODIUM) 1 pill twice | | | daily for soft stools #60 x 3 Entered | | | and Authorized by: Ambrose Ankur DNP CATEGORY MANAGER | | | Signed by: Ambrose Pascual DNP CATEGORY MANAGER on | | | 08/27/2017 Method used: Electronically | | | to [facility] ([facility]) [address] | [place] [address] | | | Ph: [phone] Fax: [phone] RxID: | | | [id number] NOVOLOG 100 UNIT/ML | | | SUBCUTANEOUS SOLUTION (INSULIN ASPART) 12 | | | Units before meals | | | SS:150-175:2U,176-200:4U, 201-250: 6U, | | | 251-300: 8U, If greater than 300 please | | | call provider #1 x 3 Entered and | | | Authorized by: Ambrose Pascual DNP CATEGORY MANAGER | | | Signed by: Ambrose Pascual DNP CATEGORY MANAGER on | | | 08/27/2017 Method used: Electronically | | | to [facility] ([facility]) [address] | | [address] [place] [address] | | | Ph: [phone] Fax: [phone] RxID: | | | [id number] LYRICA 100 MG ORAL | | | CAPSULE (PREGABALIN) 1 capsule three times | | | daily for neuropathy #90 Capsule x 3 | | | Entered and Authorized by: Ambrose Pascual DNP | | | CATEGORY MANAGER Signed by: Ambrose Pascual DNP CATEGORY MANAGER on | | | 08/27/2017 Method used: Printed then | | | faxed to ... [facility] [place]* | | | (retail) [address] | | | [place] [address] Ph: [phone] | | | Fax: [phone] RxID: [id number] | | | PANTOPRAZOLE SODIUM 40 MG ORAL TABLET | | | DELAYED RELEASE (PANTOPRAZOLE SODIUM) Take | | | one tablet by mouth once daily | | | #30[Tablet] x 3 Entered and Authorized | | | by: Ambrose Pascual DNP CATEGORY MANAGER Signed by: | | | Ambrose Pascual DNP CATEGORY MANAGER on 08/27/2017 Method | | | used: Electronically to [facility] - | | | [facility]) [address] | | | [place] [address] Ph: [phone] | | | Fax: [phone] RxID: [id number] | | | GLIPIZIDE XL 2.5 MG ORAL TABLET EXTENDED | | | RELEASE 24 HOUR (GLIPIZIDE) Take 1 tablet | | | p.o. q.a.m. #30[Tablet] x 6 Entered and | | | Authorized by: Ambrose Pascual DNP CATEGORY MANAGER | | | Signed by: Ambrose Pascual DNP CATEGORY MANAGER on | | | 08/27/2017 Method used: Electronically | | | to [facility]) [address] | | [place] [address] | | | Ph: [phone] Fax: [phone] RxID: | | | [id number] MECLIZINE HCL 25 MG ORAL | | | TABLET (MECLIZINE HCL) One tab by mouth | | | three times per day #90[Tablet] x 2 | | | Entered and Authorized by: Ambrose Pascual DNP | | | CATEGORY MANAGER Signed by: Ambrose Pascual DNP CATEGORY MANAGER on | | | 08/27/2017 Method used: Electronically | | | to [facility]) [address] | [place] [address] | | | Ph: [phone] Fax: [phone] RxID: | | | [id number] VITAMIN D 1000 UNIT ORAL | | | TABLET (CHOLECALCIFEROL) Take one tablet | | | daily in the AM #30[Tablet] x 3 Entered | | | and Authorized by: Ambrose Pascual DNP CATEGORY MANAGER | | | Signed by: Ambrose Pascual DNP CATEGORY MANAGER on | | | 08/27/2017 Method used: Electronically | | | to [facility]) [address] | | [place] [address] | | | Ph: [phone] Fax: [phone] RxID: | | | [id number] POTASSIUM CHLORIDE ER 10 | | | MEQ ORAL CAPSULE EXTENDED RELEASE | | | (POTASSIUM CHLORIDE) Take one cap daily in | | | the AM #30 x 3 Entered and Authorized | | | by: Ambrose Pascual DNP CATEGORY MANAGER Signed by: | | | Ambrose Pascual DNP CATEGORY MANAGER on 08/27/2017 Method | | | used: Electronically to [facility] - | | | [place]* (retail) [address] | | | [place] [address] Ph: [phone] | | | Fax: [phone] RxID: [id number] | | | LASIX 80 MG ORAL TABLET (FUROSEMIDE) 1 tab | | | by mouth one time per day in the AM | | | #30[Tablet] x 3 Entered and Authorized | | | by: Ambrose Pascual DNP CATEGORY MANAGER Signed by: | | | Ambrose Pascual DNP CATEGORY MANAGER on 08/27/2017 Method | | | used: Electronically to [facility] - | | | [place]* ([facility]) [address] | | | [place] [address] Ph: [phone] | | | Fax: [phone] Indications: EDEMA | | | RxID: [id number] BD INSULIN SYRINGE | | | ULTRAFINE 29G X 1/2" 1 ML (INSULIN | | | SYRINGE-NEEDLE U-100) Use 5 times daily to | | | inject insulin Dx: e11.21 SMITH: 99 months | | | #100 x 0 Entered and Authorized by: | | | Ambrose Pascual DNP CATEGORY MANAGER Signed by: Ambrose | | | Ankur DNP CATEGORY MANAGER on 08/27/2017 Method used: | | | Electronically to [facility]* | | | (retail) [address] | | | [place] [address] Ph: [phone] | | | Fax: [phone] RxID: [id number] | | | BD PEN NEEDLE ULTRAFINE 29G X 12.7MM | | | (INSULIN PEN NEEDLE) Use daily to inject | | | insulin #100 x 0 Entered and Authorized | | | by: Ambrose Pascual DNP CATEGORY MANAGER Signed by: | | | Ambrose Pascual DNP CATEGORY MANAGER on 08/27/2017 Method | | | used: Electronically to [facility] - | | | [place]* (retail) [address] | | | [place] [address] Ph: [phone] | | | Fax: [phone] RxID: [id number] | | | OMEPRAZOLE 40 MG ORAL CAPSULE DELAYED | | | RELEASE (OMEPRAZOLE) Take one by mouth one | | | time per day 30-60 minutes before | | | breakfast as needed #30 x 6 Entered and | | | Authorized by: Ambrose Pascual DNP CATEGORY MANAGER | | | Signed by: Ambrose Pascual DNP CATEGORY MANAGER on | | | 08/27/2017 Method used: Electronically | | | to [facility]) [address] | [place] [address] | | | Ph: [phone] Fax: [phone] RxID: | | | [id number] PLAVIX 75 MG ORAL TABLET | | | (CLOPIDOGREL BISULFATE) 1 tab by mouth | | | one time per day in the evening | | | #90[Tablet] x 3 Entered and Authorized | | | by: Ambrose Pascual DNP CATEGORY MANAGER Signed by: | | | Ambrose Pascual DNP CATEGORY MANAGER on 08/27/2017 Method | | | used: Electronically to [facility] - | | | [facility]) [address] | | | [place] [address] Ph: [phone] | | | Fax: [phone] RxID: [id number] | | | LIPITOR 20 MG ORAL TABLET (ATORVASTATIN | | | CALCIUM) take 1 tablet by mouth daily in | | | the evening #30[Tablet] x 5 Entered and | | | Authorized by: Ambrose Pascual DNP CATEGORY MANAGER | | | Signed by: Ambrose Pascual DNP CATEGORY MANAGER on | | | 08/27/2017 Method used: Electronically | | | to [facility] ([facility]) [address] [address] | | | Ph: [phone] Fax: [phone] RxID: | | | [id number] VALSARTAN 160 MG ORAL | | | TABLET (VALSARTAN) Take one tablet daily | | | in the AM #30[Tablet] x 3 Entered and | | | Authorized by: Ambrose GORDON | | | Signed by: Ambrose GORDON on | | | 08/27/2017 Method used: Electronically | | | to [facility]* (retail) [address] | | [address], [place] [address] | | | Ph: [phone] Fax: [phone] | | | Indications: DIABETES MELLITUS, TYPE II, | | | ON INSULIN;HYPERTENSION RxID: | | | [id number] ] Diabetic Rx | | | Is your patient using insulin? Yes | | | Sliding Scale: Yes # of tests per day: 3 | | | Length of need: 99 yrs Refill: x1 Year | | | Diagnosis: TYPE 2 DIABETES MELLITUS WITH | | | DIABETIC NEPHROPATHY (ICD-250.40) | | | (XDR95-D08.21), DIABETES MELLITUS- TYPE | | | II WITH PERIPHERAL NEUROPATHY- | | | UNCONTROLLED (ICD-250.62) (JTO03-V00.40), | | | TYPE 2 DIABETES MELLITUS WITH | | | HYPERGLYCEMIA (TQM41-C34.65) Test Strips: | | | 200 Syringes: 200 [place]: 100 | | | Lancets: 200 Medicare testing frequency | | | guidelines are 1 time per day if | | | non-insulin, or no more than 3 times per | | | day if using insulin. If your patient's | | | prescribed testing frequency is above | | | Medicare guidelines, it is required that | | | you have seen the patient and evaluated | | | their diabetes control within six months | | | prior to this order. Please indicate the | | | medical condition that supports the above | | | guidelines testing. Medical Conditions: | | | Hyperglycemia | + + + Assessments No information available. Chief Complaint No information available. History of Past Illness No information available.
--- OUTSIDE RECORDS SUMMARY | ~2019-03-25 | XMS ---
Demographics + + + | Address | [address] | | | [place] [address] | + + + | Home Phone [...] + + + | Author | [facility] | + + + | Organization | [facility] | + + + | Address | [address] | | | [place] [address] | + + + | Phone | Unavailable | + + + Care Team Providers + + + + | Care Machine Tool Designer Name | Role | Phone | + + + + Unavailable | Unavailable | + + + + Reason for Visit + + + | Reason For Visit Description | Start Date | + + + | General Notes | | + + + | | Chief complaint: Hydration History Of | | | Present Illness: She's here with | | | problems of volume depletion. She's been | | | seen by nephrology and recommended to | | | receive 1 L normal saline. She's had a | | | decreased oral intake recently medication | | | list is reviewed she denies any diarrhea | | | nausea vomiting she has had some | | | gastrointestinal upset recently with | | | decreased oral intake no fevers or chills | | | or night sweats seen recently by Dr. Galo | | | recommended to receive IV hydration. | | | Status post infusion yesterday overall | | | feels better less gastrointestinal | | | distress Medication list is reviewed . | | | Her past medical and surgical history are | | | reviewed and updated 12 point system | | | review is obtained and otherwise | | | unremarkable as except as noted. Physical | | | examination: General appearance alert and | | | oriented no acute distress HEENT scalp | | | unremarkable eyes pupils equal round | | | reactive oropharynx clear dry mucosal | | | membrane neck supple without adenopathy no | | | JVD lungs clear percussion auscultation | | | heart regular rate dry axillary folds | | | rhythm abdomen soft nontender no palpable | | | abnormal masses no hepatosplenomegaly | | | extremities without cyanosis clubbing or | | | edema Impression volume depletion #2 | | | chronic renal insufficiency #3 | | | gastrointestinal upset plan IV normal | | | saline 1 L Risk Factors Tobacco | | | Use: never smoker Alcohol Use:never | | | Drug Use: none Comments: Pt denies all | | | drug use. | | | .......................................... | | | .........................Anupama Isaac LUNA | | | August 26, 2018 3:30 PM Other Risk | | | Factors Caffeine use (drinks/day): 1 cup | | | coffee/soda a week Exercise (times/week): | | | 0 Seatbelt use (%): 100 Sun exposure: | | | occasionally HX of MRSA: No HIV high | | | risk behavior: No Medical History | | | Type 2 [...] | | Memory loss Surgical History 3 surgeries | | | b/l eye Bladder lift Hysterectomy rt | | | knee repair Low back x 2 colonscopy | | | 05/10, Dr. 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 Clark, repeat | | | 2020 Family History: Family History | | | reviewed during this update. Family | | | History of Hypertension - Father: - | | | 08/26/2015 8:14:31 AM Family History of | | | Hypertension - Mother: - 08/26/2015 | | | 8:14:25 AM Family Hx General | | | [...] Number of Children: 7 | | | Baptism/Voodoo: Religious Primary | | | Language: Argentine Use of Argentine | | | Language: Fluent Vital Signs | | | Height: 60in Weight: 187.8lbs Pulse: 76 | | | BP: 120/63 BMI: 36.81 Pulse Oximetry | | | O2 Sat: 98% RA Vitals entered by: Marian | | | Melony AZAR on December 10, 2018 10:52 AM | | | Meaningful Use Med List: (Reconciled) | | | | + + + Assessments No information available. Chief Complaint + + + | Chief Complaint Description | Start Date | + + + | Hydration | | + + + History of Past Illness No information available."
--- OUTSIDE RECORDS SUMMARY | ~2019-03-25 | XMS | Clinical Summary ---
Demographics + + + | Address | [address] [place] [address] | | | [place] [address] | + + + | Home Phone | | + + + | Preferred Language | Unknown | + + + | Marital Status | D | + + + | Temple Affiliation | Unknown | + + + | Race | White | + + + | Ethnic Group | or | + + + Author + + + | Author | [facility] | + + + | Organization | [facility] | + + + | Address | [address] | | | [place], [place] [address] | + + + | Phone | Unavailable | + + + Care Team Providers + +------+ + | Care Magnetic Prospector Name | Role | Phone | + [...] tion | | +---------+---------+---------+---------+---------+---------+---------+---------+---------+ | DIABETE | [id number] | | Inactiv | | Ambrose | | Type 2 | | | S | 6 | /08 | e | /08 | Ankur | | diabete | | | MELLITU | (SNOMED | | | | DNP PRESS OPERATOR PRINTING | | s | | | S, TYPE | CT) | | | | | | mellitu | | | II, ON | | | | | | | s | | | | | | | | | | | | | INSULIN | | | | | | | | | +---------+---------+---------+---------+---------+---------+---------+---------+---------+ | DEHYDRA | [id number] | | Resolve | | Ambrose | | Dehydra | | | TION | 6 | /08 | d | /08 | Ank[place] | | tion | | | | (SNOMED | | | | DNP PRESS OPERATOR PRINTING | | | | | | CT) | | | | | | | | +---------+---------+---------+---------+---------+---------+---------+---------+---------+ | DIZZINE | [id number] | | Inactiv | | Ambrose | | Dizzine | | | SS | 03 | /08 | e | /08 | Ankur | | ss | | | | (SNOMED | | | | DNP PRESS OPERATOR PRINTING | | | | | | CT) | | | | | | | | +---------+---------+---------+---------+---------+---------+---------+---------+---------+ | ANEMIA | [id number] | | Inactiv | | Ambrose | | Anemia | | | | 00 | / | e | /10 | Ankur | | | | | | (SNOMED | | | | DNP PRESS OPERATOR PRINTING | | | | | | CT) | | | | | | | | +---------+---------+---------+---------+---------+---------+---------+---------+---------+ | CONSTIP | [id number] | | Inactiv | | Ambrose | | Constip | | | ATION | 8 | /13 | e | /13 | Ankur | | ation | | | | (SNOMED | | | | DNP PRESS OPERATOR PRINTING | | | | | | CT) | | | | | | | | +---------+---------+---------+---------+---------+---------+---------+---------+---------+ | SYNCOPE | [id number] | | Resolve | | Ambrose | | Syncope | | | | 07 | / | d | /10 | Ank[place] | | | | | | (SNOMED | | | | DNP PRESS OPERATOR PRINTING | | | | | | CT) | | | | | | | | +---------+---------+---------+---------+---------+---------+---------+---------+---------+ | DYSPHAG | R13.10 | | Resolve | | Ambrose | | Dysphag | | | IA | (ICD-10 | | d | | Ankur | | ia, | | | UNSPECI | -CM) | | | | DNP PRESS OPERATOR PRINTING | | unspeci | | | FIED | | | | | | | fied | | +---------+---------+---------+---------+---------+---------+---------+---------+---------+ | PARESTH | [id number] | | Inactiv | | Ambrose | | Paresth | | | ESIA, | 04 | | e | | Ankur | | esia of | | | HANDS | (SNOMED | | | | DNP PRESS OPERATOR PRINTING | | hand | | | | CT) | | | | | | | | +---------+---------+---------+---------+---------+---------+---------+---------+---------+ | DIABETI | [id number] | | Inactiv | | Ambrose | | Diabeti | | | C | 06 | / | e | / | Ankur | | c | | | PERIPHE | (SNOMED | | | | DNP PRESS OPERATOR PRINTING | | periphe | | | RAL [...] | -CM) | | | | DNP PRESS OPERATOR PRINTING | | unspeci | | | FIED | | | | | | | fied | | +---------+---------+---------+---------+---------+---------+---------+---------+---------+ | VAGINIT | [id number] | | Resolve | | Ambrose | | Vaginit | | | IS | 1 | /31 | d | /31 | [place] | | is | | | | (SNOMED | | | | DNP PRESS OPERATOR PRINTING | | | | | | CT) | | | | | | | | +---------+---------+---------+---------+---------+---------+---------+---------+---------+ | DYSURIA | [id number] | | Resolve | | Ambrose | | Dysuria | | | | 1 | / | d | | Ankur | | | | | | (SNOMED | | | | DNP PRESS OPERATOR PRINTING | | | | | | CT) | | | | | | | | +---------+---------+---------+---------+---------+---------+---------+---------+---------+ | EDEMA | [id number] | | Inactiv | | Ambrose | | Edema | | | | 08 | | e | | Ank[place] | | | | | | (SNOMED | | | | DNP PRESS OPERATOR PRINTING | | | | | | CT) | | | | | | | | +---------+---------+---------+---------+---------+---------+---------+---------+---------+ | RENAL | [id number] | | Inactiv | | Ambrose | | Acute | | | FAILURE | 1 | / | e | /02 | Ankur | | renal | | | , ACUTE | (SNOMED | | | | DNP PRESS OPERATOR PRINTING | | failure | | | | CT) | | | | | | | | | | | | | | | | syndrom | | | | | | | | | | e | | +---------+---------+---------+---------+---------+---------+---------+---------+---------+ | DIABETE | [id number] | | Inactiv | | Ambrose | | Periphe | | | S | 02 | / | e | /01 | Ankur | | ral | | | MELLITU | (SNOMED | | | | DNP PRESS OPERATOR PRINTING | | circula | | | S, [...] (ICD-10 | | e | / | Ankur | | diabete | | | - | -CM) | | | | DNP PRESS OPERATOR PRINTING | | s | | | DIABETI [...] ropathy | | +---------+---------+---------+---------+---------+---------+---------+---------+---------+ | LOCALIZ | [id number] | | Resolve | | Ambrose | | Disorde | | | ED | 09 | /30 | d | /30 | Ankur | | r of | | | SWELLIN | (SNOMED | | | | DNP PRESS OPERATOR PRINTING | | forearm | | | G [...] | | | +---------+---------+---------+---------+---------+---------+---------+---------+---------+ | UTI | [id number] | | Resolve | | Ambrose | | Urinary | | | | 5 | / | d | /13 | Ankur | | tract | | | | (SNOMED | | | | DNP PRESS OPERATOR PRINTING | | infecti | | | | CT) | | | | | | ous | | | | | | | | | | disease | | +---------+---------+---------+---------+---------+---------+---------+---------+---------+ | TYPE 2 | E11.21 | | Inactiv | | Ambrose | | Type 2 | | | DIABETE | (ICD-10 | /19 | e | /19 | Ankur | | diabete | | | S | -CM) | | | | DNP PRESS OPERATOR PRINTING | | s | | | MELLITU [...] athy | | +---------+---------+---------+---------+---------+---------+---------+---------+---------+ | DEMENTI | [id number] | | Inactiv | | Ambrose | | Procedu | | | A | | | | | Ankur | | re | | | SCREENI | (SNOMED | | | | DNP PRESS OPERATOR PRINTING | | carried | | | NG | CT) | | | | | | out on | | | | | | | | | | | | | | | | | | | | subject | | +---------+---------+---------+---------+---------+---------+---------+---------+---------+ | CHANGE | [id number] | | Inactiv | | Ambrose | | Altered | | | IN | | | e | | Ankur | | bowel | | | BOWEL | (SNOMED | | | | DNP PRESS OPERATOR PRINTING | | functio | | | HABITS | CT) | | | | | | n | | +---------+---------+---------+---------+---------+---------+---------+---------+---------+ | MILD | [id number] | | Inactiv | | Ambrose | | Mild | | | COGNITI | 03 | /24 | e | /24 | Ankur | | cogniti | | | VE | (SNOMED | | | | DNP PRESS OPERATOR PRINTING | | ve | | | IMPAIRM | CT) | | | | | | disorde | | | ENT | | | | | | | r | | +---------+---------+---------+---------+---------+---------+---------+---------+---------+ | DIABETE | [id number] | | Inactiv | | Ambrose | | Diabeti | | | S | 224582 | /11 | e | / | Ankur | | c | | | MELLITU | (SNOMED | | | | DNP PRESS OPERATOR PRINTING | | periphe | | | S, [...] fied | | +---------+---------+---------+---------+---------+---------+---------+---------+---------+ | DIABETE | [id number] | | Active | | David W | | Diabeti | | | S | 538816 | /15 | | /15 | Theen [...] s | | +---------+---------+---------+---------+---------+---------+---------+---------+---------+ | MUSCLE | [id number] | | Active | | Christen | | Muscle | | | PAIN | 1 | /07 | | /07 | J. | | pain | | | | (SNOMED | | | | [place] | | | | | | CT) | | | | ta PRESS OPERATOR PRINTING | | | | +---------+---------+---------+---------+---------+---------+---------+---------+---------+ | DIABETE | [id number] | | Removed | | David W | | Diabeti | | | S | 905219 | /11 | | /12 | Theen [...] s | | +---------+---------+---------+---------+---------+---------+---------+---------+---------+ | MILD | [id number] | | Removed | | Maulik | [...] uterus | | +---------+---------+---------+---------+---------+---------+---------+---------+---------+ | COLONIC | [id number] | | Active | | Emeka | [...] | | | +---------+---------+---------+---------+---------+---------+---------+---------+---------+ | CONSTIP | [id number] | | Removed | | Emeka | | Constip | | | ATION | 8 | /13 | | /13 | Petre | | ation | | | | (SNOMED | | | | MD | | | | | | CT) | | | | | | | | +---------+---------+---------+---------+---------+---------+---------+---------+---------+ | CHANGE | [id number] | | Removed | | Emeka | | Altered | | | IN | 9 | /13 | | /13 | Petre | | bowel | | | BOWEL | (SNOMED | | | | MD | | functio | | | HABITS | CT) | | | | | | n | | +---------+---------+---------+---------+---------+---------+---------+---------+---------+ | DECREAS | [id number] | | Active | | Emeka | | Decreas | | | ED | 6 | /13 | | /13 | Petre | | e in | | | APPETIT | (SNOMED | | | | MD | | appetit | | | E | CT) | | | | | | e | | +---------+---------+---------+---------+---------+---------+---------+---------+---------+ | WEIGHT | [id number] | | Active | | Emeka | | Abnorma | | | LOSS | 01 | / | | /13 | Petre | | l | | | ABNORMA | (SNOMED | | | | MD | | weight | | | L | CT) | | | | | | loss | | +---------+---------+---------+---------+---------+---------+---------+---------+---------+ | NAUSEA | [id number] | | Active | | Emeka | | Nausea | | | ALONE | | | | | Petre | | | | | | (SNOMED | | | | MD | | | | | | CT) | | | | | | | | +---------+---------+---------+---------+---------+---------+---------+---------+---------+ | RECTAL | [id number] | | Active | | Emeka | | Rectal | | | BLEEDIN | 2 | /13 | | /13 | Petre | | hemorrh | | | G | (SNOMED | | | | MD | | age | | | | CT) | | | | | | | | +---------+---------+---------+---------+---------+---------+---------+---------+---------+ | DEMENTI | 4372809 | | Active | | Christen | | Dementi | | | A | 6 | /10 | | /10 | J. | | a | | | WITHOUT | (SNOMED | | | | [place] | | | | | | CT) | | | | ta PRESS OPERATOR PRINTING | | | | | BEHAVIO | | | | | | | | | | RAL | | | | | | | | | | DISTURB | | | | | | | | | | ANCE | | | | | | | | | +---------+---------+---------+---------+---------+---------+---------+---------+---------+ | CHRONIC | [id number] | | Active | | Christen | | Chronic | | | | 03 | /10 | | /10 | J. | | | | | PROGRES | (SNOMED | | | | [place] | | progres | | | SIVE | CT) | | | | ta PRESS OPERATOR PRINTING | | sive | | | RENAL | | | | | | | renal | | | FAILURE | | | | | | | failure | | +---------+---------+---------+---------+---------+---------+---------+---------+---------+ | ANEMIA | [id number] | | Removed | | Christen | | Anemia | | | | 00 | /10 | | /10 | J. | | | | | | (SNOMED | | | | [place] | | | | | | CT) | | | | ta PRESS OPERATOR PRINTING | | | | +---------+---------+---------+---------+---------+---------+---------+---------+---------+ | DEMENTI | [id number] | | Removed | | Christen | | Procedu | | | A | 03 | / | | | J. | | re | | | SCREENI | (SNOMED | | | | [place] | | carried | | | NG | CT) | | | | ta PRESS OPERATOR PRINTING | | out on | | | | | | | | | | | | | | | | | | | | subject | | +---------+---------+---------+---------+---------+---------+---------+---------+---------+ | FALL | [id number] | | Active | | Christen | | At risk | | | RISK | | / | | | J. | | for | | | | (SNOMED | | | | [place] | | falls | | | | CT) | | | | ta PRESS OPERATOR PRINTING | | | | +---------+---------+---------+---------+---------+---------+---------+---------+---------+ | DIABETE | [id number] | | Resolve | | Christen | | Diabeti | | | S | 703935 | /14 | d | / | J. | | c | | | MELLITU | (SNOMED | | | | [place] | | periphe | | | S, TYPE | CT) | | | | ta PRESS OPERATOR PRINTING | | ral | | | II [...] s | | +---------+---------+---------+---------+---------+---------+---------+---------+---------+ | CORNS | [id number] | | Inactiv | | Kali | | Corns | | | AND | 00 | | e | | Palacio | | and | | | CALLOSI | (SNOMED | | | | DPM | | callus | | | TIES | CT) | | | | | | | | +---------+---------+---------+---------+---------+---------+---------+---------+---------+ | ELHAM | [id number] | | Active | | Kali | [...] | | | +---------+---------+---------+---------+---------+---------+---------+---------+---------+ | HALLUX | 3082983 | | Active | | Kali | | Acquire | | | VALGUS, | 1 | | | | Hakeem | | d | | [...] ropathy | | +---------+---------+---------+---------+---------+---------+---------+---------+---------+ | DIABETE | [id number] | | Removed | | Kali | | Periphe | | | S | 02 | / | | / | Palacio [...] s | | +---------+---------+---------+---------+---------+---------+---------+---------+---------+ | ONYCHOM | 5675893 | | Active | | Kali | | Onychom | | | YCOSIS | | | | | Palacio | | ycosis | | | | (SNOMED | | | | DPM | | | | | | CT) | | | | | | | | +---------+---------+---------+---------+---------+---------+---------+---------+---------+ | HEARTBU | [id number] | | Active | | Tiesha | | Heartbu | | | RN | 0 | / | | / | | | rn | | | | (SNOMED | | | | Maria Isabel | | | | | | CT) | | | | MD | | | | +---------+---------+---------+---------+---------+---------+---------+---------+---------+ | TYPE 2 | [id number] | | Active | | Tiesha | | Disorde | | | DIABETE | 03 | | | | | | r [...] (ICD-10 | / | | / | | | diabete | | | S | -CM) | | | | [place] | | s | | | MELLITU [...] athy | | +---------+---------+---------+---------+---------+---------+---------+---------+---------+ | UTI | [id number] | | Removed | | Pako | | Urinary | | | | 5 | / | | /13 | Middlek | | tract | | | | (SNOMED | | | | auff | | infecti | | | | CT) | | | | PRESS OPERATOR PRINTING | | ous | | | | | | | | | | disease | | +---------+---------+---------+---------+---------+---------+---------+---------+---------+ | LOCALIZ | [id number] | | Removed | | D'Elena | [...] | | | +---------+---------+---------+---------+---------+---------+---------+---------+---------+ | LIPOMA | 3050906 | | Active | | Lauranc | | Lipoma | | | | 2 | /14 | | /14 | e W | | (clinic | | | | (SNOMED | | | | Lila | | al) | | | | CT) | | | | MD | | | | +---------+---------+---------+---------+---------+---------+---------+---------+---------+ | VITAMIN | 7330370 | | Active | | David Paez | | Vitamin | | | D | 6 | /14 | | /15 | Theen | | D | | | DEFICIE | (SNOMED | | | | MD FACE | | deficie | | | NCY | CT) | | | | FACP | | ncy | | +---------+---------+---------+---------+---------+---------+---------+---------+---------+ | OBESITY | 2767831 | | Active | | David Paez | | Obesity | | | , BMI | 01 | /14 | | /15 | Theen | | | | | 35-39.9 | (SNOMED | | | | MD FACE | | | | | , ADULT | CT) | | | | FACP | | | | +---------+---------+---------+---------+---------+---------+---------+---------+---------+ | DIABETE | 0968638 | | Removed | | David W | | Diabeti | | | S | 945002 | /14 | | /15 | Theen [...] s | | +---------+---------+---------+---------+---------+---------+---------+---------+---------+ | HALLUX | [id number] | | Inactiv | | Kali | | Acquire | | | VALGUS, | 1 | /01 | e | /01 | Palacio | | d | | | | (SNOMED | | | | DPM | | hallux | | | ACQUIRE | CT) | | | | | | valgus | | | D | | | | | | | | | +---------+---------+---------+---------+---------+---------+---------+---------+---------+ | HAMMER | [id number] | | Inactiv | | Kali | [...] | | | +---------+---------+---------+---------+---------+---------+---------+---------+---------+ | ONYCHOM | 8240068 | | Inactiv | | Kali | | Onychom | | | YCOSIS | 08 | | e | / [...] ropathy | | +---------+---------+---------+---------+---------+---------+---------+---------+---------+ | DIABETE | [id number] | | Inactiv | | Kali | | Periphe | | | S | | | e | / | [...] s | | +---------+---------+---------+---------+---------+---------+---------+---------+---------+ | SCREENI | 2849177 | | Resolve | | Lauranc | | Depress | | | NG FOR | | / | d | | e W | | ion | | | DEPRESS | (SNOMED | | | | Lila | | screeni | | | ION | CT) | | | | MD | | ng | | +---------+---------+---------+---------+---------+---------+---------+---------+---------+ | SCREENI | 8467031 | | Resolve | | Lauranc | [...] | | | +---------+---------+---------+---------+---------+---------+---------+---------+---------+ | SCREENI | [id number] | | Resolve | | Lauranc | [...] ng | | +---------+---------+---------+---------+---------+---------+---------+---------+---------+ | SCREENI | [id number] | | Removed | | Geetha | [...] ng | | +---------+---------+---------+---------+---------+---------+---------+---------+---------+ | SCREENI | 7379109 | | Removed | | Geetha | | Screeni | | | NG FOR | | / | | /10 | [place] | | ng for | | | UNSPECI | (SNOMED | | | | [facility] | | disorde | | | FIED | CT) | | | | | | r | | | CONDITI | | | | | | | | | | ON | | | | | | | | | +---------+---------+---------+---------+---------+---------+---------+---------+---------+ | SCREENI | [id number] | | Removed | | Geetha | | Depress | | | NG FOR | 06 | / | | /10 | Patrick | | ion | | | DEPRESS | (SNOMED | | | | CCMA | | screeni | | | ION | CT) | | | | | | ng | | +---------+---------+---------+---------+---------+---------+---------+---------+---------+ | RENAL | 5633446 | | Removed | | Lauranc | [...] e | | +---------+---------+---------+---------+---------+---------+---------+---------+---------+ | EDEMA | [id number] | | Removed | | Lauranc | | Edema | | | | 08 | /15 | | /11 | e W | | | | | | (SNOMED | | | | Llia | | | | | | CT) | | | | MD | | | | +---------+---------+---------+---------+---------+---------+---------+---------+---------+ | RENAL | 1574850 | | Active | | Luz | [...] e | | +---------+---------+---------+---------+---------+---------+---------+---------+---------+ | PERIPHE | 8939006 | | Active | | Lauranc | [...] disease | | +---------+---------+---------+---------+---------+---------+---------+---------+---------+ | CANDIDI | 9569965 | | Active | | Susanna | | Candidi | | | ASIS, | 6 | / | | / | Medel | | asis of | | | SKIN | (SNOMED | | | | MD | | skin | | | | CT) | | | | | | | | +---------+---------+---------+---------+---------+---------+---------+---------+---------+ | DYSURIA | 3753370 | | Removed | | Erica | | Dysuria | | | | 1 | / | | / | Paul | | | | | | (SNOMED | | | | MA | | | | | | CT) | | | | | | | | +---------+---------+---------+---------+---------+---------+---------+---------+---------+ | VAGINIT | 7113581 | | Removed | | Erica | | Vaginit | | | IS | 1 | /31 | | /31 | Paul | | is | | | | (SNOMED | | | | MA | | | | | | CT) | | | | | | | | +---------+---------+---------+---------+---------+---------+---------+---------+---------+ | RLQ | 0513323 | | Resolve | | Lauranc | | Right | | | PAIN | 02 | | d | /11 | e W | | lower | | | | (SNOMED | | | | Lila | | quadran | | | | CT) | | | | MD | | t pain | | +---------+---------+---------+---------+---------+---------+---------+---------+---------+ | ABDOMIN | 8541336 | | Resolve | | Lauranc | [...] | | | +---------+---------+---------+---------+---------+---------+---------+---------+---------+ | KNEE | 2375664 | | Active | | Lauranc | | Knee | | | PAIN | 3 | /14 | | /14 | e W | | pain | | | | (SNOMED | | | | Lila | | | | | | CT) | | | | MD | | | | +---------+---------+---------+---------+---------+---------+---------+---------+---------+ | Questio | 5210408 | | Correct | | Lauranc | [...] | | | +---------+---------+---------+---------+---------+---------+---------+---------+---------+ | VERTEBR | 0387550 | | Active | | Lauranc | | Vertebr | | | OBASILA | | | | | e W [...] e | | +---------+---------+---------+---------+---------+---------+---------+---------+---------+ | VERTIGO | 9340732 | | Active | | Luz | | Vertigo | | | | | / | | / | Asad | | | | | | (SNOMED | | | | RN | | | | | | CT) | | | | | | | | +---------+---------+---------+---------+---------+---------+---------+---------+---------+ | CHEST | 9181425 | | Inactiv | | Genny | | Chest | | | PAIN | 9 | | e | /02 | Kaufman | | pain | | | | (SNOMED | | | | | | | | | | CT) | | | | | | | | +---------+---------+---------+---------+---------+---------+---------+---------+---------+ | CHEST | 1233219 | | Inactiv | | Lauranc | [...] fied | | +---------+---------+---------+---------+---------+---------+---------+---------+---------+ | CEREBRO | 9026446 | | Active | | Rogers | | 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 | | | R | (SNOMED | | | | MD | | r | | | DISEASE | CT) | | | | | | disease | | +---------+---------+---------+---------+---------+---------+---------+---------+---------+ | History | 2379879 | | Active | | Rogers | | Cerebra | | | of | 07 | /16 | | /16 | Laith | | [...] | | | +---------+---------+---------+---------+---------+---------+---------+---------+---------+ | DIABETI | [id number] | | Removed | | Rogers | | Diabeti | | | C | 06 | / | | | Laith | | c [...] thy | | +---------+---------+---------+---------+---------+---------+---------+---------+---------+ | HYPERLI | 9883815 | | Active | | Rogers | | Hyperli | | | PIDEMIA | 4 | /30 | | /30 | Laith | | pidemia | | | | (SNOMED | | | | MD | | | | | | CT) | | | | | | | | +---------+---------+---------+---------+---------+---------+---------+---------+---------+ | History | [id number] | | Active | | Rogers | [...] e | | +---------+---------+---------+---------+---------+---------+---------+---------+---------+ | CEREBRA | [id number] | | Correct | | Rogers | [...] s | | +---------+---------+---------+---------+---------+---------+---------+---------+---------+ | ABDOMIN | 2732406 | | Removed | | Patricia | [...] | | | +---------+---------+---------+---------+---------+---------+---------+---------+---------+ | RLQ | [id number] | | Removed | | Patricia | [...] fied | | +---------+---------+---------+---------+---------+---------+---------+---------+---------+ | CARPAL | 3287132 | | Active | | Rogers | | Carpal | | | TUNNEL | 9 | /25 | | /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 | | | | MD | | 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, LEFT | CT) | | | | | | e | | +---------+---------+---------+---------+---------+---------+---------+---------+---------+ | Questio | [id number] | | Removed | | Rogers | | Vertebr | | | n of | 08 | | | | Laith | | obasila | | [...] | | | +---------+---------+---------+---------+---------+---------+---------+---------+---------+ | GAIT | [id number] | | Active | | Rogers | | Abnorma | | | IMBALAN | 2 | | | | Liath | | l gait | | | CE | (SNOMED | | | | MD | | | | | | CT) | | | | | | | | +---------+---------+---------+---------+---------+---------+---------+---------+---------+ | BRAIN | [id number] | | Correct | | Rogers | | Brainst | | | STEM | 05 | | ion | / | Laith | | em | | | STROKE | (SNOMED | | | | MD | | stroke | | | | CT) | | | | | | syndrom | | | | | | | | | | e | | +---------+---------+---------+---------+---------+---------+---------+---------+---------+ | PARESTH | 1783669 | | Removed | | Rogers | | Paresth | | | ESIA, | | | | | Laith | | esia of | | | HANDS | (SNOMED | | | | MD | | hand | | | | CT) | | | | | | | | +---------+---------+---------+---------+---------+---------+---------+---------+---------+ | PERIPHE | 4798195 | | Correct | | Rogers | | Periphe | | | RAL | | | ion | / | Laith | | ral | | | NEUROPA | (SNOMED | | | | MD | | nerve | | | THY | CT) | | | | | | disease | | +---------+---------+---------+---------+---------+---------+---------+---------+---------+ | THYROID | 5386092 | | Active | | Luz | | Thyroid | | | NODULE | 05 | /20 | | /20 | [place] | | nodule | | | | (SNOMED | | | | CCMA | | | | | | CT) | | | | | | | | +---------+---------+---------+---------+---------+---------+---------+---------+---------+ | TIA | 4854996 | | Active | | Lauranc | [...] a | | +---------+---------+---------+---------+---------+---------+---------+---------+---------+ | SYNCOPE | 2838672 | | Removed | | Lauranc | | Syncope | | | | 07 | /07 | | /10 | e W | | | | | | (SNOMED | | | | Lila | | | | | | CT) | | | | MD | | | | +---------+---------+---------+---------+---------+---------+---------+---------+---------+ | GASTROP | [id number] | | Active | | Lauranc | | 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 | | | | (SNOMED | | | | Lila | | syndrom | | | | CT) | | | | MD | | e | | +---------+---------+---------+---------+---------+---------+---------+---------+---------+ | CONSTIP | [id number] | | Active | | Lauranc | | Chronic | | | ATION, | 09 | /08 | | /08 | e W | | | | | CHRONIC | (SNOMED | | | | Lila | | constip | | | | CT) | | | | MD | | ation | | +---------+---------+---------+---------+---------+---------+---------+---------+---------+ | POSTHER | [id number] | | Active | | Lauranc | | Posther | | | 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 | (SNOMED | | | | Lila | | neuralg | | | [place] | CT) | | | | MD | | ia | | +---------+---------+---------+---------+---------+---------+---------+---------+---------+ | DIZZINE | [id number] | | Removed | | Lauranc | | Dizzine | | | SS | 03 | /08 | | /08 | e W | | ss | | | | (SNOMED | | | | Lila | | | | | | CT) | | | | MD | | | | +---------+---------+---------+---------+---------+---------+---------+---------+---------+ | DEHYDRA | [id number] | | Removed | | Lauranc | | Dehydra | | | TION | 6 | /08 | | /08 | e W | | tion | | | | (SNOMED | | | | Lila | | | | | | CT) | | | | MD | | | | +---------+---------+---------+---------+---------+---------+---------+---------+---------+ | DIABETE | [id number] | | Removed | | Lauranc | [...] | | | +---------+---------+---------+---------+---------+---------+---------+---------+---------+ | HYPERTE | [id number] | | Active | | Lauranc | | Hyperte | | | NSION | 3 | / | | /08 | e W | [...] tab one | | | DULOXETINE | [id number] | Laurance W | | HCL 30 MG | time per | | | HCL | 6 | Lila MD | | CPEP | day | | | | | | + + + + + + + + | PROCHLORPE | Insert one | | | PROCHLORPE | [id number] | Edna | | RAZINE 25 | | | | RAZINE | 0 | Hope CCMA | | MG SUPP [...] take 1-2 | | | DIMENHYDRI | 1566312312 | Christen Ramirez | | 50 MG TABS | tabs 4 | | | MARCELA | 2 | Raumakita | | | times per | | | | | PRESS OPERATOR PRINTING | | | day as | | | | | | | | needed | | | | | | + + + + + + + + | VICTOZA 18 | | | | LIRAGLUTID | 2630242169 | Jesus | | MG/3ML | | | | E | 2 | Ethan MD | | SOPN | | | | | | | + + + + + + + + | BASAGLAR | 1 pen | | | INSULIN | 3523831323 | Christen Ramirez | | KWIKPEN | every 3 | | | GLARGINE | 9 | Raumakita | | 100 | days 56 | | | | | PRESS OPERATOR PRINTING | | UNIT/ML | units q | | | | | | | SOPN | Day | | | | | | + + + + + + + + | NERVE | | | | NERVE | | Franciscoance W | | PAIN | | | | PAIN | | Lila MD | + + + + + + + + | MECLIZINE | 1 by mouth | | | MECLIZINE | 8720901706 | Bailey W | | HCL 25 [...] mix and | | | NA | [id number] | Maulik | | BOWEL PREP | [...] take 2 | | | GABAPENTIN | 5626818462 | Bailey W | | 300 MG [...] Inject 0.6 | | | LIRAGLUTID | [id number] | Christen Ramirez | | MG/3ML | mg daily | | | E | 2 | Raumakita | | SOPN | | | | | | PRESS OPER[employer] PRINTING | + + + + + + + + | ONDANSETRO | 1 tab | | | ONDANSETRO | 6386961188 | Kali | | N HCL 4 MG | every 4 | | | N HCL | 3 | Palacio DPM | | TABS | hours | | | | | | + + + + + + + + | VICTOZA 18 | | | | LIRAGLUTID | 5078208985 | Bailey W | | MG/3ML | [...] 1 tab | | | GABAPENTIN | 1760636483 | Jesus | | 300 MG | po tid . | | | | 4 | Ethan MD | | CAPS | Pt states | | | | | | | | as needed | | | | | | + + + + + + + + | COLACE 100 | 1 tab by | | | DOCUSATE | [id number] | Kali | | MG CAPS | mouth | | | SODIUM | 0 | Palacio DPM | | | daily at | | | | | | | | bedtime | | | | | | + + + + + + + + | CLONAZEPAM | Take one | | | CLONAZEPAM | 6993597797 | Edna | | 0.5 MG | [...] take 1 | | | ASPIRIN | 6683795167 | Rogers | | 325 MG | [...] 1 tab | | | PREGABALIN | 0842256400 | Bailey W | | MG CAPS | three | | | | 8 | Lila LUIS | | | times per | | | | | | | | day | | | | | | + + + + + + + + | GLUCOPHAGE | 1 tab one | | | METFORMIN | 2012797998 | Bailey W | | XR 500 MG | time per | | | HCL | 3 | Lila MD | | [id number] | day | | | | | | + + + + + + + + | HUMALOG | BS <150 - | | | INSULIN | 1125907677 | Christen Ramirez | | 100 | No insulin | | | LISPRO | 1 | Raum[place]ita | | UNIT/ML | BS | | | (HUMAN) | | PRESS OPERATOR PRINTING | | SOLN | 150-200 | | [...] 50 units | | | INSULIN | 5792054470 | Pako | | UNIT/ML | once per | | | GLARGINE | 3 | Middlekauf | | SOLN | day. Pt | | | | | f PRESS OPERATOR PRINTING | | | states she | | | | | | | | is taking | | | | | | | | 56 units | | | | | | | | every AM | | | | | | + + + + + + + + | NITROFURAN | Take one | | | NITROFURAN | 6892250357 | Edna | | TOIN | capsule [...] | One | | | ERGOCALCIF | 6370395061 | Mariano | | QUANG 51708 | capsule by | | | QUANG [...] take 2 | | | GABAPENTIN | 5299809549 | Mariano | | 300 MG | [...] 10ml QAM | | | METFORMIN | 7207438748 | Mariano | | MG/5ML | Liquid due | | | HCL | 1 | Ariella | | SOLN | to | | | | | CCMA | | | Dysphagia | | | | | | + + + + + + + + | ASPIRIN EC | take 1 | | | ASPIRIN | 7056223086 | Rogers | | 325 MG | tablet | | | | 1 | Laith MD | | TBEC | daily | | | | | | + + + + + + + + | RELION | Use to | | | GLUCOSE | 5827129071 | Kali | | BLOOD | test BG | | | BLOOD | 4 | Palacio DPM | | GLUCOSE | one time | | | | | | | TEST STRP | per day | | | | | | + + + + + + + + | NITROFURAN | | | | NITROFURAN | 0510152556 | Edna | | TOIN | | [...] one tablet | | | DOCUSATE | 7763894632 | Franciscoance W | | MG CAPS | by mouth | | | SODIUM | 0 | Lila MD | | | at bedtime | | | | | | + + + + + + + + | BACTRIM DS | 1 by mouth | | | TRIMETHOPR | 5772591892 | Franciscoance W | | 800-160 | twice a | | | IM-SULFAME | 1 | Lila MD | | MG TABS | day for 3 | | | THOXAZOLE | | | | | days | | | | | | + + + + + + + + | VICTOZA 18 | .6 mg x 1 | | | LIRAGLUTID | 0559052152 | Ambrose | | MG/3ML | week then | | | E | 2 | Ankur DNP | | SOPN | 1.2 mg | | | | | PRESS OPERATOR PRINTING | | | daily per | | | | | | | | week | | | | | | + + + + + + + + | ASPIRIN 81 | one time | | | ASPIRIN | 3057487661 | Mariano | | MG TABS | per day | | | | 5 | Ariella | | | | | | | | CCMA | + + + + + + + + | GABAPENTIN | two times | | | GABAPENTIN | 7899060799 | Mariano | | 100 MG | per day | | | | 1 | Ariella | | CAPS | | | | | | CCMA | + + + + + + + + | BIOTIN 1 | | | | BIOTIN | 4460922498 | Kali | | MG CAPS | | | | | 2 | Palacio DPM | + + + + + + + + | PIOGLITAZO | Take 1 tab | | | PIOGLITAZO | 1423109708 | Jesus | | NE HCL 15 [...] two times | | | MECLIZINE | 8679179476 | Mariano | | HCL 25 MG [...] take 1 | | | ASPIRIN | 6286581004 | Mariano | | 325 MG | tablet | | | | 1 | Ariella | | TBEC | daily | | | | | CCMA | + + + + + + + + | PIOGLITAZO | Take 1 tab | | | PIOGLITAZO | 6478599574 | Christen Ramirez | | NE HCL 15 | by mouth | | | NE HCL | 6 | Raum[place]ita | | MG TABS | one time | | | | | PRESS OPERATOR PRINTING | | | per day in | | | | | | | | the AM | | | | | | + + + + + + + + | NEURONTIN | take 1 tab | | | GABAPENTIN | 0206779656 | Bailey W | | 300 MG | po tid | | | | 4 | Lila MD | | CAPS | | | | | | | + + + + + + + + | DIOVAN 160 | one time | | | VALSARTAN | 1335633277 | Mariano | | MG TABS | per day | | | | 4 | Ariella | | | | | | | | CCMA | + + + + + + + + | ASPIRIN | take 1 | | | ASPIRIN | 4168838104 | Bailey W | | 325 MG [...] Take one | | | POTASSIUM | 8834331376 | Jesus | | CHLORIDE | cap daily | | | CHLORIDE | 1 | Ethan LUIS | | ER 10 MEQ | in the AM | | | | | | | CR-CAPS | | | | | | | + + + + + + + + | KEFLEX 500 | 1 pill | | | CEPHALEXIN | 3043962157 | Tiesha | | MG CAPS | twice a | | | | 1 | Maria Isabel LUIS | | | day for 7 | | | | | | | | days | | | | | | + + + + + + + + | GABAPENTIN | one tablet | | | GABAPENTIN | 3915299616 | Laurance W | | 100 MG | by mouth | | | | 1 | Illa MD | | CAPS | three | [...] 1 tab | | | MECLIZINE | 0695008501 | Laurance W | | HCL 25 MG | three | | | HCL | 0 | Lila MD | | TABS | times per | | | | | | | | day | | | | | | + + + + + + + + | NITROFURAN | Take one | | | NITROFURAN | 6899891322 | Edna | | TOIN | capsule [...] 0.02 ml | | | EXENATIDE | 4363003588 | Bailey W | | MCG PEN 5 | injection | | | | 1 | Lila MD | | MCG/0.02ML | two times | | | | | | | SOPN | per day | | | | | | + + + + + + + + | FLUCONAZOL | take one | | | FLUCONAZOL | 2483152714 | Bailey W | | E 150 MG | tablet PO | | | E | 1 | Lila MD | | TABS | x 1 repeat | | | | | | | | in 3 days | | | | | | + + + + + + + + | PROCHLORPE | Insert one | | | PROCHLORPE | 2888483928 | Ambrose | | RAZINE 25 | | | | RAZINE | 0 | Ankur DNP | | MG SUPP | suppositor | | | | | PRESS OPERATOR PRINTING | | | y rectally | | | | | | | | every 24 | | | | | | | | hours as | | | | | | | | needed | | | | | | + + + + + + + + | HEARTBU | | | | HEARTBU | | Bailey W | | RN/NAUSEA* | | | [...] tab two | | | CILOSTAZOL | 2583133860 | Kali | | 100 MG | times per | | | | 1 | Hakeem DPM | | TABS | day | | | | | | + + + + + + + + | RIOMET 500 | 10ml's two | | | METFORMIN | 1256833979 | Bailey W | | MG/5ML | [...] D | | | | CHOLECALCI | 4938116390 | Kali | | 1000 UNIT | | | | FEROL | 1 | Hakeem DPM | | TABS | | | | | | | + + + + + + + + | NEURONTIN | take 1 tab | | | GABAPENTIN | 6053495010 | Christen Ramirez | | 300 MG | po tid . | | | | 4 | Raum[place]ita | | CAPS | Pt states | | | | | PRESS OPERATOR PRINTING | | | as needed | | | | | | + + + + + + + + | PANTOPRAZO | Take one | | | PANTOPRAZO | 6092540344 | Edna | | LE SODIUM | tablet by | | | LE SODIUM | 1 | Hope CCMA | | 40 MG TBEC | mouth once | | | | | | | | daily | | | | | | + + + + + + + + | BYETTA 5 | Take as | | | EXENATIDE | 5369680434 | Christen Ramirez | | MCG PEN 5 | directed | | | | 1 | Raumakita | | MCG/0.02ML | once daily | | | | | PRESS OPERATOR PRINTING | | SOPN | in the AM [...] two times | | | METFORMIN | 7179488093 | Mariano | | HCL 1000 | per day | | | HCL | 5 | Ariella | | MG TABS | | | | | | CCMA | + + + + + + + + | GABAPENTIN | Take 2 | | | GABAPENTIN | 8834193701 | Bailey W | | 300 MG [...] TAKE ONE | | | PREGABALIN | 7508809726 | Kesha | | MG CAPS | [...] 1 TAB | | | BUSPIRONE | 2457524469 | Kali | | HCL 7.5 MG | three | | | HCL | 1 | Palacio DPM | | TABS | times per | | | | | | | | day | | | | | | + + + + + + + + | LANTUS 100 | 25 units | | | INSULIN | 7541880362 | Jesus | | UNIT/ML | two [...] two times | | | MECLIZINE | 1810997111 | Laurance W | | HCL 25 MG | per day | | | HCL | 0 | Lila MD | | TABS | | | | | | | + + + + + + + + | MECLIZINE | One tab by | | | MECLIZINE | 1144136432 | Laurance W | | HCL 25 [...] Take one | | | PROMETHAZI | 9080289782 | Edna | | NE HCL 25 [...] 3U before | | | INSULIN | 6670659670 | Scarlett | | 100 | lunch [...] Take one | | | CHOLECALCI | 6987146827 | Jesus | | 1000 UNIT | tablet | | | FEROL | 1 | Ethan MD | | TABS | daily in | | | | | | | | the AM | | | | | | + + + + + + + + | POTASSIUM | | | | POTASSIUM | 1152893844 | Kali | | CHLORIDE | | | | CHLORIDE | 1 | Hakeem DPM | | ER 10 MEQ | | | | | | | | CR-CAPS | | | | | | | + + + + + + + + | COLACE 100 | 1 pill BID | | | DOCUSATE | 1975696082 | Ambrose | | MG CAPS | | | | SODIUM | 0 | Ankur DNP | | | | | | | | PRESS OPERATOR PRINTING | + + + + + + + + | BIOTIN 1 | Take one | | | BIOTIN | 3125755428 | Ambrose | | MG CAPS | daily in | | | | 2 | Ankur DNP | | | the AM | | | | | PRESS OPERATOR PRINTING | + + + + + + + + | NYSTATIN-T | Apply thin | | | NYSTATIN-T | 3503987550 | Ambrose | | RIAMCINOLO | layer to | | | RIAMCINOLO | 5 | Ankur DNP | | NE | affected | | | NE | | PRESS OPERATOR PRINTING | | 852767-6.1 | area BID | | | | | | | UNIT/GM-% | prn for | | | | | | | CREA | itching | | | | | | + + + + + + + + | LASIX 80 | 1 tab by | | | FUROSEMIDE | 5669330702 | Ambrose | | MG TABS | mouth one | | | | 5 | Ankur DNP | | | time per | | | | | PRESS OPERATOR PRINTING | | | day in the | | | | | | | | AM | | | | | | + + + + + + + + | BD INSULIN | Use 5 | | | INSULIN | 2453274717 | David | | SYRINGE | times | | | SYRINGE-NE | 1 | Mark DO | | ULTRAFINE | daily to | [...] Take one | | | VALSARTAN | 4307920467 | Fela | | 160 MG | tablet | | | | 8 | Rl MARKS | | TABS | daily in | | | | | | | | the AM | | | | | | + + + + + + + + | RELION PEN | | | | INSULIN | 0601611923 | David | | NEEDLES | | | | PEN NEEDLE | 4 | Rayyne DO | | 31G X 8 MM | | | | | | | + + + + + + + + | MECLIZINE | One tab by | | | MECLIZINE | 1976114763 | David | | HCL 25 MG | mouth | | | HCL | 0 | Hoyne DO | | TABS | three | | | | | | | | times per | | | | | | | | day | | | | | | + + + + + + + + | NOVOLOG | 3U before | | | INSULIN | 7060666474 | David | | 100 | lunch [...] 56 Units | | | INSULIN | 4205006132 | David | | KWIKPEN | every [...] tab by | | | CLOPIDOGRE | 6569754978 | Christen Ramirez | | MG TABS | mouth one | | | L | 1 | Raumakita | | | time per | | | BISULFATE | | PRESS OPERATOR PRINTING | | | day in the | | | | | | | | evening | | | | | | + + + + + + + + | LYRICA 100 | 1 tab | | | PREGABALIN | 5218256984 | Christen J. | | MG CAPS | three | | | | 8 | Raumakita | | | times per | | | | | PRESS OPERATOR PRINTING | | | day. Pt | | | | | | | | states as | | | | | | | | needed | | | | | | + + + + + + + + | LYRICA 100 | 1 tid | | | PREGABALIN | 3879705374 | Christen J. | | MG CAPS | | | | | 8 | Raum[place]ita | | | | | | | | PRESS OPERATOR PRINTING | + + + + + + + + | VICTOZA 18 | .6 mg x 1 | | | LIRAGLUTID | 9662724225 | Christen J. | | MG/3ML | week then | | | E | 2 | Raumakita | | SOPN | 1.2 mg | | | | | PRESS OPERATOR PRINTING | | | daily per | | | | | | | | week | | | | | | + + + + + + + + | OMEPRAZOLE | Take one | | | OMEPRAZOLE | 3215856223 | Christen Ramirez | | 40 MG | by mouth | | | | 0 | Raum[place]ita | | CPDR | one time | | | | | PRESS OPERATOR PRINTING | | | per day | | [...] Take 1 | | | GLIPIZIDE | 9156379692 | Christen Ramirez | | XL 2.5 MG | tablet | | | | 1 | Raumakita | | [id number] | p.o. | | | | | PRESS OPERATOR PRINTING | | | q.a.m. | | | | | | + + + + + + + + | HUMALOG | 3U before | | | INSULIN | 8998927981 | Christen J. | | 100 | lunch and | | | LISPRO | 1 | Raumakita | | UNIT/ML | 5U before | | | | | PRESS OPERATOR PRINTING | | SOLN | Dinner | | [...] Inject 0.6 | | | LIRAGLUTID | 3420078069 | Christen J. | | MG/3ML | mg daily | | | E | 2 | Raumakita | | SOPN | | | | | | PRESS OPERATOR PRINTING | + + + + + + + + | LIPITOR 20 | take 1 | | | ATORVASTAT | 0514830593 | Christen Ramirez | | MG TABS | tablet by | | | IN CALCIUM | 3 | Raumakita | | | mouth | | | | | PRESS OPERATOR PRINTING | | | daily in | | | | | | | | the | | | | | | | | evening | | | | | | + + + + + + + + | BASAGLAR | 56 Units | | | INSULIN | 3021362442 | Christen Ramirez | | KWIKPEN | by mouth | | | GLARGINE | 9 | Raumakita | | 100 | every | | | | | PRESS OPERATOR PRINTING | | UNIT/ML | morning | | | | | | | SOPN | | | | | | | + + + + + + + + | VICTOZA 18 | 5 unit AM | | | LIRAGLUTID | 6179740757 | Christen Ramirez | | MG/3ML | and 5 | | | E | 2 | Raumakita | | SOPN | units PM | | | | | PRESS OPERATOR PRINTING | + + + + + + + + | BASAGLAR | 1 pen | | | INSULIN | 1756324749 | Christen Ramirez | | KWIKPEN | every 3 | | | GLARGINE | 9 | Raumakita | | 100 | days 56 | | | | | PRESS OPERATOR PRINTING | | UNIT/ML | units q | | | | | | | SOPN | Day | | | | | | + + + + + + + + | BYETTA 5 | Take as | | | EXENATIDE | 8276700101 | Christen Ramirez | | MCG PEN 5 | directed | | | | 1 | Raumakita | | MCG/0.02ML | once daily | | | | | PRESS OPERATOR PRINTING | | SOPN | in the AM | | | | | | + + + + + + + + | LANTUS 100 | 56 units | | | INSULIN | 5965270829 Thien Mccracken | | UNIT/ML | qAM | | | GLARGINE | 3 | Mora DO | | SOLN | | | | | | | + + + + + + + + | SUPREP | mix and | | | NA | 8479835603 | Emeka | | BOWEL PREP | [...] <150 - | | | INSULIN | 6115234955 | Tiesha | | 100 | No insulin | | | LISPRO | 1 | Gotebo MD | | UNIT/ML | BS | [...] Use daily | | | INSULIN | 1658328112 | Tiesha | | NEEDLE | to inject | | | PEN NEEDLE | 0 | Maria Isabel MD | | ULTRAFINE | insulin | | | | | | | 29G X | | | | | | | | 12.7MM | | | | | | | + + + + + + + + | RELION | Use daily | | | GLUCOSE | 3094644044 | Tiesha | | BLOOD | to check | | | BLOOD | 4 | Maria Isabel MD | | GLUCOSE | blood | | | | | | | TEST STRP | sugar | | | | | | + + + + + + + + | DIABETIC | 1 pair per | | | FOOT CARE | 0668001845 | Tiesha | | INSOLES | custom | | | PRODUCTS | 1 | Gotebo MD | | | fit from | [...] custom | | | ORTHOTIC | | Gotebo MD | | SHOES | fit from | | | SHOES | | | | | podiatry | | | | | | | | E11.65, | | | | | | | | e11.21 | | | | | | + + + + + + + + | KEFLEX 500 | 1 pill | | | CEPHALEXIN | 4427300932 | Pako | | MG CAPS | twice a | | | | 1 | Middlekauf | | | day for 7 | | | | | f PRESS OPERATOR PRINTING | | | days | | | | | | + + + + + + + + | BYETTA 5 | 0.02 ml | | | EXENATIDE | 1202067753 | Bailey W | | MCG PEN 5 | injection | | | | 1 | Lila MD | | MCG/0.02ML | two times | | | | | | | SOPN | per day | | | | | | + + + + + + + + | LYRICA 100 | 1 tab | | | PREGABALIN | 9272118981 | Laurance W | | MG CAPS | three | | | | 8 | Lila MD | | | times per | | | | | | | | day | | | | | | + + + + + + + + | DRAMAMINE | take 1-2 | | | DIMENHYDRI | 9617675389 | Laurance W | | 50 MG TABS | [...] Use 5 | | | INSULIN | 7921623713 | Laurance W | | SYRINGE | times | [...] tab by | | | CLOPIDOGRE | 1280575935 | Laurance W | | MG TABS | mouth one | | | L | 1 | Lila MD | | | time per | | | BISULFATE | | | | | day | | | | | | + + + + + + + + | LANTUS 100 | 25 units | | | INSULIN | 7361539117 | Laurance W | | UNIT/ML | two times | | | GLARGINE | 3 | Lila MD | | SOLN | per day | | | | | | + + + + + + + + | LASIX 80 | 1 tab by | | | FUROSEMIDE | 6805505848 | Laurance W | | MG TABS | mouth one | | | | 5 | Lila MD | | | time per | | | | | | | | day | | | | | | + + + + + + + + | FUROSEMIDE | 1 tab one | | | FUROSEMIDE | 5715902889 | Laurance W | | 40 MG | time per | | | | 5 | Lila MD | | TABS | day | | | | | | + + + + + + + + | BUSPIRONE | 1 TAB | | | BUSPIRONE | 6306509416 | Laurance W | | HCL 7.5 MG | three | | | HCL | 1 | Lila MD | | TABS | times per | | | | | | | | day | | | | | | + + + + + + + + | COLACE 100 | 1 tab by | | | DOCUSATE | 0979520764 | Laurance W | | MG CAPS | mouth | | | SODIUM | 0 | Lila MD | | | daily at | | | | | | | | bedtime | | | | | | + + + + + + + + | BACTRIM DS | 1 by mouth | | | TRIMETHOPR | 7913757961 | Laurance W | | 800-160 | twice a | | | IM-SULFAME | 1 | Lila MD | | MG TABS | day for 3 | | | THOXAZOLE | | | | | days | | | | | | + + + + + + + + | LYRICA 50 | Take 1 tab | | | PREGABALIN | 7082516021 | Laurance W | | MG CAPS [...] tab one | | | METFORMIN | 1337830501 | Laurance W | | XR 500 MG | time per | | | HCL | 3 | Lila MD | | [id number] | day | | | | | | + + + + + + + + | CILOSTAZOL | 1 tab two | | | CILOSTAZOL | 5263332434 | Laurance W | | 100 MG | times per | | | | 1 | Lila MD | | TABS | day | | | | | | + + + + + + + + | OMEPRAZOLE | Take one | | | OMEPRAZOLE | 1293018166 | Laurance W | | 40 MG [...] take 1 | | | ATORVASTAT | 5805992174 | Laurance W | | MG TABS | tablet by | | | IN CALCIUM | 3 | Lila MD | | | mouth | | | | | | | | daily | | | | | | + + + + + + + + | MECLIZINE | 1 tab | | | MECLIZINE | 5354713956 | Laurance W | | HCL 25 MG | three | | | HCL | 0 | Lila MD | | TABS | times per | | | | | | | | day | | | | | | + + + + + + + + | LANTUS 100 | 56 units | | | INSULIN | 5734170269 | Laurance W | | UNIT/ML | in the | | | GLARGINE | 3 | Lila MD | | SOLN | morning | | | | | | + + + + + + + + | ONDANSETRO | 1 tab | | | ONDANSETRO | 9373281704 | Laurance W | | N HCL 4 MG | every 4 | | | N HCL | 3 | Lila MD | | TABS | hours | | | | | | + + + + + + + + | PIOGLITAZO | Take 1 tab | | | PIOGLITAZO | 4218670890 | Bailey W | | NE HCL 15 | by mouth | | | NE HCL | 6 | Lila MD | | MG TABS | one time | | | | | | | | per day | | | | | | + + + + + + + + | RELION | Use to | | | GLUCOSE | 8706797514 | Bailey W | | BLOOD | test BG | | | BLOOD | 4 | Lila MD | | GLUCOSE | one time | | | | | | | TEST STRP | per day | | | | | | + + + + + + + + | GABAPENTIN | Take 2 | | | GABAPENTIN | 1917973695 | Bailey W | | 300 MG [...] TAB one | | | VALSARTAN | 9432690457 | Laurance W | | 160 MG | time per | | | | 8 | Lila MD | | TABS | day | | | | | | + + + + + + + + | LYRICA 50 | TAKE ONE | | | PREGABALIN | 2646045137 | Laurance W | | MG CAPS [...] 0.2 ml | | | EXENATIDE | 0676870187 | Laurance W | | MCG PEN 5 | injection | | | | 1 | Llia MD | | MCG/0.02ML | two times | | | | | | | SOPN | per day | | | | | | + + + + + + + + | VICTOZA 18 | 1.2 mg | | | LIRAGLUTID | 3960286088 | Laurance W | | MG/3ML | injected | | | E | 2 | Lila MD | | SOPN | martin | | | | | | + + + + + + + + | KEFLEX 500 | one po TID | | | CEPHALEXIN | [id number] | Susanna | | MG CAPS | | | | | 1 | Gianfranco LUIS | + + + + + + + + | FLUCONAZOL | take one | | | FLUCONAZOL | [id number] | Susanna | | E 150 MG | tablet PO | | | E | 1 | Gianfranco LUIS | | TABS | x 1 repeat | | | | | | | | in 3 days | | | | | | + + + + + + + + | LYRICA 50 | 1 tab | | | PREGABALIN | [id number] | Laurance W | | MG CAPS | three | | | | 8 | Lila MD | | | times per | | | | | | | | day | | | | | | + + + + + + + + | GABAPENTIN | Take 2 | | | GABAPENTIN | [id number] | Laurance W | | 300 MG [...] tab one | | | DULOXETINE | [id number] | Laurance W | | HCL 30 MG | time per | | | HCL | 6 | Lila MD | | CPEP | day | | | | | | + + + + + + + + | RIOMET 500 | 10ml's two | | | METFORMIN | [id number] | Laurance W | | MG/5ML | [...] TAB one | | | VALSARTAN | [id number] | Laurance W | | MG TABS | time per | | | | 4 | Lila MD | | | day | | | | | | + + + + + + + + | MECLIZINE | One tab by | | | MECLIZINE | 6472381317 | Laurance W | | HCL 25 [...] take 2 | | | GABAPENTIN | 1498119360 | Bailey W | | 300 MG [...] tab one | | | VALSARTAN | [id number] | Bailey W | | MG TABS | time per | | | | 4 | Lila MD | | | day | | | | | | + + + + + + + + | VICTOZA 18 | 0.6 mg | | | LIRAGLUTID | [id number] | Bailey W | | MG/3ML | [...] tab one | | | SITAGLIPTI | 7299203066 | Laurance W | | 100 MG | time per | | | N | 2 | Lila MD | | TABS | day | | | PHOSPHATE | | | + + + + + + + + | GABAPENTIN | 2 tabs two | | | GABAPENTIN | [id number] | Laurance W | | 300 MG | times per | | | | 5 | Lila MD | | CAPS | day | | | | | | + + + + + + + + | DIOVAN 160 | 1 by mouth | | | VALSARTAN | 4146109069 | Laurance W | | MG TABS | every day | | | | 4 | Lila MD | + + + + + + + + | GABAPENTIN | 1 tab at | | | GABAPENTIN | 9109471706 | Laurance W | | 100 MG [...] 28 units | | | INSULIN | [id number] | Bailey W | | UNIT/ML | two times | | | GLARGINE | 3 | Lila MD | | SOLN | per day | | | | | | + + + + + + + + | LISINOPRIL | take 1 | | | LISINOPRIL | 6074092054 | Rogers | | 20 MG | tablet by | | | | 1 | Laith LUIS | | TABS | mouth | | | | | | | | daily | | | | | | + + + + + + + + | LANTUS 100 | 56 units | | | INSULIN | [id number] | Laurance W | | UNIT/ML | daily | | | GLARGINE | 3 | Lila MD | | SOLN | | | | | | | + + + + + + + + | GABAPENTIN | 1 by mouth | | | GABAPENTIN | 0856936451 | Laurance W | | 100 MG [...] | One | | | ERGOCALCIF | [id number] | Laurance W | | QUANG 13914 | capsule by | | | QUANG [...] by mouth | | | LISINOPRIL | 5928829442 | Laurance W | | 5 MG TABS | one time | | | | 1 | Lila MD | | | per day | | | | | | + + + + + + + + | RIOMET 500 | 10ml QAM | | | METFORMIN | 0645618137 | Laurance W | | MG/5ML | Liquid due | | | HCL | 1 | Lila MD | | SOLN | to | | | | | | | | Dysphagia | | | | | | + + + + + + + + | COLACE 100 | one tablet | | | DOCUSATE | [id number] | Laurance W | | MG CAPS | by mouth | | | SODIUM | 0 | Lila MD | | | at bedtime | | | | | | + + + + + + + + | MECLIZINE | 1 by mouth | | | MECLIZINE | 4131291916 | Laurance W | | HCL 25 [...] one tablet | | | METFORMIN | 3855651048 | Laurance W | | HCL 1000 | by mouth | | | HCL | 5 | Lila MD | | MG TABS | twice a | | | | | | | | day | | | | | | + + + + + + + + | ASPIRIN 81 | 1 by mouth | | | ASPIRIN | 6827253768 | Laurance W | | MG TABS | every day | | | | 5 | Lila MD | + + + + + + + + | GABAPENTIN | one tablet | | | GABAPENTIN | 7976497457 | Bailey W | | 100 MG [...] she had | | | | Clemente MD | | | redness | | [...] | | | | | | | [employer]ING | + + + + + + [...] +------+------+-------+------+-------+------+ + + + | Office Visit: DM f/u | + + + +--------+--------+---+---+---+ + [...] | + +--------+--------+---+---+---+ + + + | Office Visit: Transfer Care: DM 2 | + + + +--------+--------+---+---+---+ + | | MMSE | 20 | | | | Assessment | | [...] ) | + +--------+--------+---+---+---+ + | | MEDS [...] | use CPH[facility] | + +--------+--------+---+---+---+ + + + | Lab Report: Comprehensive Metabolic Panel | + + + + +--------+ + +---+ + | | SGPT (ALT) | 55 | U/L | 12-78 | N | alanine | | | | | | | | aminotrans | | | | | | | | ferase | | | | | | | | (SGPT), | | | | | | | | serum | + + +--------+ + +---+ + | | SGOT (AST) | 47 | U/L | 12-37 | H | aspartate | | | | | | | | aminotrans | | | | | | | | ferase | | | | | | | | (SGOT), | | | | | | | | serum | + + +--------+ + +---+ + | | ALK PHOS | 184 | U/L | 50-136 | H | [...] +---+ + | | A/G RATIO | 1.0 | | 0.8-1.8 | N | albumin/gl | | | | | | | | obulin | | | | | | | | ratio, | | | | | | | | serum | + + +--------+ + +---+ + | | GLOBULIN | 3.3 | g/dL | 2.2-4.0 | N | [...] + +---+ + | | PROTEIN, | 6.5 | g/dL | 6.4-8.2 | N | protein, | | | TOT | | | | | total, | | | | | | | | serum | + + +--------+ + +---+ + | | CALCIUM | 8.2 | mg/dL | 8.5-10.1 | L | calcium, | | | | | | | | serum | + + +--------+ + +---+ + | | GFRC | 24 (?) | mL/min/1.7 | 60- | L [...] + +---+ + | | BUN/CREAT | 16.1 % | | 12.0-20.0 | N | urea | | | | | | | | nitrogen/c | | | | | | | | reatinine | | | | | | | | ratio, | | | | | | | | serum | + + +--------+ + +---+ + | | CREATININE | 2.17 | mg/dL | 0.40-1.00 | H | creatinine | | | | | | | | , serum | + + +--------+ + +---+ + | | BUN | 35 | mg/dL | 8-24 | H | urea | | | | | | | | nitrogen, | | | | | | | | blood | + + +--------+ + +---+ + | | GLUCOSE | 217 | mg/dL | 70-99 | H | blood | | | SER | | | | | glucose | + + +--------+ + +---+ + | | ANION GAP | 9 | mmol/L | 6-16 | N | anion gap, | | | | | | | | serum | + + +--------+ + +---+ + | | CO2 | 27 | mmol/L | 21-32 | N | carbon | | | | | | | | dioxide, | | | | | | | | venous | | | | | | | | blood | + + +--------+ + +---+ + | | CHLORIDE | 106 | mmol/L | 98-108 | N | chloride, | | | | | | | | serum | + + +--------+ + +---+ + | | POTASSIUM | 3.9 | mmol/L | 3.5-5.5 | N | potassium, | | | | | | | | serum | + + +--------+ + +---+ + | | SODIUM | 142 | mmol/L | 136-145 | N | sodium, | | | | | | | | serum | + + +--------+ + +---+ + + + | Lab Report: Prothrombin Time | + + + + +------+---+ +---+ + | | INR | 0.95 | | | N | internatio | | | | | | | | nal | | | | | | | | normalized | | | | | | | | ratio | | | | | | | | (INR) | + + +------+---+ +---+ + | | PT PATIENT | 9.9 | s | 9.7-11.5 | N | prothrombi | | | | | | | | n time | | | | | | | | (patient) | + + +------+---+ +---+ + + + | Lab Report: CBC with Auto Diff | + + + + + + + +---+ + | | ZZ-GE-UNK | 0.04 K/mm3 | | 0.00-0.02 | H | GE use | | | | [...] +---+ + | | EOS ABSLT | 0.12 | 10*3/uL | 0.00-0.68 | N | Eosinophil | | | | | | | | Absolute | | | | | | | | Count | + + + + + +---+ + | | ABSOLUTE | 0.43 | 10*3/uL | 0.16-1.47 | N | Absolute | | | MON | | | | | Monocytes | + + + + + +---+ + | | LYMPHOCYTA | 1.56 | 10*3/uL | 0.84-5.20 | N | lymphocyte | | | BS | | | | | s, | | | | | | | | absolute | + + + + + +---+ + | | ANC | 2.60 | 10*3/mm3 | 1.96-9.15 | N | neutrophil | | | | | | | | count, | | | | | | | | blood | + + + + + +---+ + | | NRBCS/100W | 0.8 | % | 0.0-0.2 | H | nucleated | | | BC | [...] +---+ + | | IMM GRANU | 1 | % | 0-1 | N | [...] + +---+ + | | EOSINOPHIL | 3 | % | 0-6 | N | eosinophil | | | % | | | | | s as | | | | | | | | percent of | | | | | | | | blood | | | | | | | | leukocytes | + + + + + +---+ + | | MONOCYTE % | 9 | % | 4-13 | N | monocytes | | | | | | | | as percent | | | | | | | | of blood | | | | | | | | leukocytes | + + + + + +---+ + | | LYMPHS % | 33 | % | 21-46 | N | lymphocyte | | | | | | | | s as | | | | | | | | percent of | | | | | | | | blood | | | | | | | | leukocytes | + + + + + +---+ + | | PMN % | 55 | % | 41-73 | N | neutrophil | | | | | | | | s as | | | | | | | | percent of | | | | | | | | blood | | | | | | | | leukocytes | + + + + + +---+ + | | MPV | 12.0 | fL | 9.1-12.4 | N | mean | | | | | | | | platelet | | | | | | | | volume | + + + + + +---+ + | | PLATELETS | 118 | 10*3/mm3 | 150-400 | L | platelet | | | | | | | | count | + + + + + +---+ + | | RDW | 13.6 | % | 11.7-14.2 | N | red blood | | | | | | | | cell | | | | | | | | distributi | | | | | | | | on width | + + + + + +---+ + | | RDW-SD | 44.2 | fL | 35.1-46.3 | N | [...] +---+ + | | MCHC RBC | 33.4 | g/dL | 31.5-36.5 | N | [...] + +---+ + | | MCH | 29.8 | pg | 26.0-34.0 | N | mean | | | | | | | | corpuscula | | | | | | | | r | | | | | | | | hemoglobin | | | | | | | | , RBC | + + + + + +---+ + | | MCV | 89 | fL | 80-100 | N | mean | | | | | | | | corpuscula | | | | | | | | r volume, | | | | | | | | RBC | + + + + + +---+ + | | HCT | 30.2 | % | 33.0-51.0 | L | hematocrit | | | | | | | | , blood | + + + + + +---+ + | | HGB | 10.1 | g/dL | 11.5-16.0 | L | hemoglobin | | | | | | | | , blood | + + + + + +---+ + | | RBC | 3.39 | 10*6/mm3 | 3.80-5.20 | L | erythrocyt | | | | | | | | e (RBC) | | | | | | | | count | + + + + + +---+ + | | WBC | 4.75 | 10*3/mm3 | 4.00-11.30 | N | leukocyte | | | | | | | | count, | | | | | | | | blood | + + + + + +---+ + + + | Rx Refill: eRx Request for VALSARTAN 160MG TAB | + + + +--------+ +---+---+---+ + | | ESM_RR | [phone] | | | B | e-scripts | | | | 4`VALSARTA | | | | messenger | | | | N 160MG | | | | refill | [...] | | | | | | | 0`02/15/20 | | | | | | | | 17` | | | | | | | | 017`[facility] | | | | | | | | t - | | | | | | | | [place]*` | | | | | | | | [phone] | | | | | | | | `[id number] | | | | | | | [...] +---+---+---+ + + + | Rx Refill: eRx Request for RELION PEN NEEDLE 31G/8MM MIS | + + + +--------+ +---+---+---+ + | | E[facility]_RR | [id number] | | | B | e-scripts | | | | 5`RELION | | | | messenger | | | | PEN NEEDLE | | | | refill | | | | 31G/8MM | | | | request | | | | MIS`31G/8M | | | | | | | | M``50 | | | | | | | | Unspecifie | | | | | | | | d``USE ONE | | | | | | | | PEN | | | | | | | | NEEDLE | | | | | | | | DAILY IN | | | | | | | | THE | | | | | | | | MORNING | | | | | | | | WITH | | | | | | | | BASAGLAR | | | | | | | | KWIKPEN``1 | | | | | | | | `0`01/18/ | | | | | | | | 017`01/18/ | | | | | | | | 2017`[facility] | | | | | | | | rt - | | | | | | | | [place]*` | | | | | | | | [id number] | | | | | | | | `[id number] | | | | | | | | 34`42945`R | | | | | | | | ELION PEN | | | | | | | | NEEDLE | | | | | | | | 31G/8MM | | | | | | | | MIS | | | | | | | | Quantity: | | | | | | | | 50 | | | | | | | | Unspecifie | | | | | | | | d | | | | | | | | Instructio | | | | | | | | ns: USE | | | | | | | | ONE PEN | | | | | | | | NEEDLE | | | | | | | | DAILY IN | | | | | | | | THE | | | | | | | | MORNING | | | | | | | | WITH | | | | | | | | BASAGLAR | | | | | | | | KWIKPEN | | | | | + +--------+ +---+---+---+ + + + | Rx Refill: eRx Request for VALSARTAN 160 MG TABS | + + + +--------+ +---+---+---+ + | | ESM_RR | [phone] | | | B | e-scripts | | | | 3`VALSARTA | | | | messenger | | | | N 160 MG | | | | refill | | | | TABS`160`` | | | | request | | | | 30 | | | | | | | | Unspecifie | | | | | | | | d`30`Take | | | | | | | | one tablet | | | | | | | | daily in | | | | | | | | the | | | | | | | | AM``1`0`08 | | | | | | | | `0 | | | | | | | | 01/18/2017` | | | | | | | | [facility] - | | | | | | | | [place]*` | | | | | | | | [phone] | | | | | | | | `[phone] | | | | | | | | 90`36848`V | | | | | | | | ALSARTAN | | | | | | | | 160MG TAB | | | | | | [...] | | | | | | | MORNING, | | | | | | | | PATEINT | | | | | | | | NEEDS TO | | | | | | | | MAKE | | | | | | | | APPOINTMEN | | | | | | | | T WITH | | | | | | | | CLINIC | | | | | + +--------+ +---+---+---+ + + + | Rx Refill: eRx Request for MECLIZINE 25MG TAB | + + + +--------+ +---+---+---+ + | | ESM_RR | [id number] | | | B | e-scripts | | | | 9`MECLIZIN | | | | messenger | | | | E 25MG | | | | refill | | | | | | | | request | | | | TAB`25MG`` | | | | | | | | 90 | | | | | | | [...] | | | | | | | DAILY``1`0 | | | | | | | | ` | | | | | | | | 7`09/18/19 | | | | | | | | 17`T[facility]ert | | | | | | | | - | | | | | | | | [place]*` | | | | | | | | [phone] | | | | | | | | `[id number] | | | | | | | | 06``MECLIZ | | | | | | | | INE 25MG | | | | | | | | TAB | | | | | | | | Quantity: | | | | | | | | 90 Tablet | | | | | | [...] | DAILY | | | | | + +--------+ +---+---+---+ + + + | Rx Nighat: Taryn Request for RELION ALETHA 10IJ66HT MIS | + + + +--------+ +---+---+---+ + | | ESM_RR | [id number] | | | B | e-scripts | | | | 9`RELION | | | | messenger | | | | PEN | | | | refill | | | | [id number] | | | | request | | | | MIS```50 | | | | | | | | Unspecifie | | | | | | | | d`50`USE | | | | | | | | ONE PEN | | | | | | | | NEEDLE | | | | | | | | EVERY | | | | | | | | MORNING | | | | | | | | WITH | | | | | | | | BASAGLAR | | | | | | | | KWIKPEN.`` | | | | | | | | 1`0`09/04/ | | | | | | | | 2016`10/15 | | | | | | | | /2016`[facility] | | | | | | | | art - | | | | | | | | [place]*` | | | | | | | | [phone] | | | | | | | | `[phone] | | | | | | | | 34`[id number]` | | | | | | | | RELION PEN | | | | | | | | [id number] | | | | | | | | MIS | | | | | | | | Quantity: | | | | | | | | 50 | | | | | | | | Unspecifie | | | | | | | | d | | | | | | | | Instructio | | | | | | | | ns: USE | | | | | | | | ONE PEN | | | | | | | | NEEDLE | | | | | | | | EVERY | | | | | | | | MORNING | | | | | | | | WITH | | | | | | | | BASAGLAR | | | | | | | | KWIKPEN. | | | | | + +--------+ +---+---+---+ + + + | Rx Refill: eRx Request for VALSARTAN 160MG TAB | + + + +--------+ +---+---+---+ + | | ESM_RR | [id number] | | | B | e-scripts | | | | 8`VALSARTA | | | | messenger | | | | N 160MG | | | | refill | | | | TAB`160MG` | | | | request | | | | `30 | | | | | | | | Tablet`30` | | | | | | | | TAKE ONE | | | | | | | | TABLET BY | | | | | | | | MOUTH IN | | | | | | | | THE | | | | | | | | MORNING. | | | | | | | | LAST | | | | | | | | REFILL | | | | | | | | UNTIL | | | | | | | | APPT.``1`0 | | | | | | | | `08/14/ | | | | | | | | 7`11/01/19 | | | | | | | | 17`[facility] | | | | | | | | - | | | | | | | | [place]*` | | | | | | | | [phone] | | | | | | | | `[phone] | | | | | | | [...] | | | | | | | LAST | | | | | | | | REFILL | | | | | | | | UNTIL | | | | | | | | APPT. | | | | | + +--------+ +---+---+---+ + + + | Office Visit: Office Visit/Injectafer | + + + +--------+--------+---+---+---+ + | [...] | use [facility] | + +--------+--------+---+---+---+ + + + | Rx Refill: eRx Request for CLOPIDOGREL 75MG TAB | + + + +--------+ +---+---+---+ + | | ESM_RR | [phone] | | | B | e-scripts | | | | 9`CLOPIDOG | | | | messenger | | [...] | | | | | | | `0`10/31/2 | | | | | | | | 017`10/31/ | | | | | | | | 2016`[facility]yn | | | | | | | | rt - | | | | | | | | [place]*` | | | | | | | | [phone] | | | | | | | | `[id number] | | | | | | | [...] +---+---+---+ + + + | Rx Refill: eRx Request for RELION PEN [id number] MIS | + + + +--------+ +---+---+---+ + | | E[facility]_RR | [phone] | | | B | e-scripts | | | | 0`RELION | | | | messenger | | | | PEN | | | | refill | | | | [id number] | | | | request | | | | MIS```50 | | | | | | | | Unspecifie | | | | | | | | d`50`USE | | | | | | | | ONE PEN | | | | | | | | NEEDLE | | | | | | | | EVERY | | | | | | | | MORNING | | | | | | | | WITH | | | | | | | | BASRAJI | | | | | | | | JOÃOPEN.`` | | | | | | | | 1`0`04/11/ | | | | | | | | 2016`10/15 | | | | | | | | /2016`[facility] | | | | | | | | art - | | | | | | | | [place]*` | | | | | | | | [phone] | | | | | | | | `[phone] | | | | | | | | 34`[id number]` | | | | | | | | RELION PEN | | | | | | | | [id number] | | | | | | | | MIS | | | | | | | | Quantity: | | | | | | | | 50 | | | | | | | | Unspecifie | | | | | | | | d | | | | | | | | Instructio | | | | | | | | ns: USE | | | | | | | | ONE PEN | | | | | | | | NEEDLE | | | | | | | | EVERY | | | | | | | | MORNING | | | | | | | | WITH | | | | | | | | BASAGLAR | | | | | | | | KWIKPEN. | | | | | + +--------+ +---+---+---+ + + + | Office Visit: Office Visit/Injectafer | + + + +--------+--------+---+---+---+ + | [...] | use [facility]PH[facility] | + +--------+--------+---+---+---+ + + + | Office Visit: Office Visit/Consult/Eli/Dr. Galo | + + + +--------+--------+---+---+---+ + | [...] | use [facility] | + +--------+--------+---+---+---+ + + + | Office Visit: F/U- DM2 | + + + +--------+--------+---+---+---+ + | [...] | + +--------+--------+---+---+---+ + + + | Lab Report: Basic Metabolic Panel | + + + + +--------+ + +---+ + | | CALCIUM | 9.2 | mg/dL | 8.5-10.1 | N | calcium, | | | | | | | | serum | + + +--------+ + +---+ + | | GFRC | 26 (?) | mL/min/1.7 | 60- | L [...] + +---+ + | | BUN/CREAT | 23.7 % | | 12.0-20.0 | H | urea | | | | | | | | nitrogen/c | | | | | | | | reatinine | | | | | | | | ratio, | | | | | | | | serum | + + +--------+ + +---+ + | | CREATININE | 1.98 | mg/dL | 0.40-1.00 | H | creatinine | | | | | | | | , serum | + + +--------+ + +---+ + | | BUN | 47 | mg/dL | 8-24 | H | urea | | | | | | | | nitrogen, | | | | | | | | blood | + + +--------+ + +---+ + | | GLUCOSE | 354 | mg/dL | 70-99 | H | blood | | | SER | | | | | glucose | + + +--------+ + +---+ + | | ANION GAP | 8 | mmol/L | 6-16 | N | anion gap, | | | | | | | | serum | + + +--------+ + +---+ + | | CO2 | 25 | mmol/L | 21-32 | N | carbon | | | | | | | | dioxide, | | | | | | | | venous | | | | | | | | blood | + + +--------+ + +---+ + | | CHLORIDE | 104 | mmol/L | 98-108 | N | chloride, | | | | | | | | serum | + + +--------+ + +---+ + | | POTASSIUM | 4.1 | mmol/L | 3.5-5.5 | N | potassium, | | | | | | | | serum | + + +--------+ + +---+ + | | SODIUM | 137 | mmol/L | 136-145 | N | sodium, | | | | | | | | serum | + + +--------+ + +---+ + + + | Lab Report: CBC with Auto Diff | + + + + + + + +---+ + | | ZZ-GE-UNK | 0.00 K/mm3 | | 0.00-0.02 | N | GE use | | | | [...] +---+ + | | EOS ABSLT | 0.20 | 10*3/uL | 0.00-0.68 | N | Eosinophil | | | | | | | | Absolute | | | | | | | | Count | + + + + + +---+ + | | ABSOLUTE | 0.35 | 10*3/uL | 0.16-1.47 | N | Absolute | | | MON | | | | | Monocytes | + + + + + +---+ + | | LYMPHOCYTA | 1.54 | 10*3/uL | 0.84-5.20 | N | lymphocyte | | | BS | | | | | s, | | | | | | | | absolute | + + + + + +---+ + | | ANC | 2.66 | 10*3/mm3 | 1.96-9.15 | N | [...] + +---+ + | | EOSINOPHIL | 4 | % | 0-6 | N | eosinophil | | | % | | | | | s as | | | | | | | | percent of | | | | | | | | blood | | | | | | | | leukocytes | + + + + + +---+ + | | MONOCYTE % | 7 | % | 4-13 | N | monocytes | | | | | | | | as percent | | | | | | | | of blood | | | | | | | | leukocytes | + + + + + +---+ + | | LYMPHS % | 32 | % | 21-46 | N | lymphocyte | | | | | | | | s as | | | | | | | | percent of | | | | | | | | blood | | | | | | | | leukocytes | + + + + + +---+ + | | PMN % | 56 | % | 41-73 | N | neutrophil | | | | | | | | s as | | | | | | | | percent of | | | | | | | | blood | | | | | | | | leukocytes | + + + + + +---+ + | | MPV | 11.5 | fL | 9.1-12.4 | N | mean | | | | | | | | platelet | | | | | | | | volume | + + + + + +---+ + | | PLATELETS | 166 | 10*3/mm3 | 150-400 | N | platelet | | | | | | | | count | + + + + + +---+ + | | RDW | 14.1 | % | 11.7-14.2 | N | red blood | | | | | | | | cell | | | | | | | | distributi | | | | | | | | on width | + + + + + +---+ + | | RDW-SD | 44.2 | fL | 35.1-46.3 | N | [...] +---+ + | | MCHC RBC | 32.9 | g/dL | 31.5-36.5 | N | [...] + +---+ + | | MCH | 29.3 | pg | 26.0-34.0 | N | mean | | | | | | | | corpuscula | | | | | | | | r | | | | | | | | hemoglobin | | | | | | | | , RBC | + + + + + +---+ + | | MCV | 89 | fL | 80-100 | N | mean | | | | | | | | corpuscula | | | | | | | | r volume, | | | | | | | | RBC | + + + + + +---+ + | | HCT | 32.8 | % | 33.0-51.0 | L | hematocrit | | | | | | | | , blood | + + + + + +---+ + | | HGB | 10.8 | g/dL | 11.5-16.0 | L | hemoglobin | | | | | | | | , blood | + + + + + +---+ + | | RBC | 3.68 | 10*6/mm3 | 3.80-5.20 | L | [...] + + +---+ + + + | Office Visit: ED [...] | use [facility] | + +--------+--------+---+---+---+ + + + | Rx Refill: eRx Request for CLOPIDOGREL 75MG TAB | + + + +--------+ +---+---+---+ + | | ESM_RR | [id number] | | | B | e-scripts | [...] | | | | | | | 2017`[facility] | | | | | | | | rt - | | | | | | | | [place]*` | | | | | | | | [phone] | | | | | | | | `[phone] | | | | | | | [...] + +--------+ +---+---+---+ + + + | Lab Report: COPY [...] +---+ + + + | Lab Report: Troponin [...] +---+ + | | SGPT (ALT) | 43 [...] +---+ + | | ALK PHOS | 168 [...] + +---+ + | | GLOBULIN | 3.6 | [...] + +---+ + | | CALCIUM | 9.0 | mg/dL | 8.5-10.1 | N | calcium, | | | | | | | | serum | + + +--------+ + +---+ + | | GFRC | 24 (?) | mL/min/1.7 | 60- | L [...] + +---+ + | | BUN/CREAT | 18.4 % | | 12.0-20.0 | N | urea | | | | | | | | nitrogen/c | | | | | | | | reatinine | | | | | | | | ratio, | | | | | | | | serum | + + +--------+ + +---+ + | | CREATININE | 2.12 | mg/dL | 0.40-1.00 | H | creatinine | | | | | | | | , serum | + + +--------+ + +---+ + | | BUN | 39 | mg/dL | 8-24 | H | urea | | | | | | | | nitrogen, | | | | | | | | blood | + + +--------+ + +---+ + | | GLUCOSE | 375 | mg/dL | 70-99 | H | blood | | | SER | | | | | glucose | + + +--------+ + +---+ + | | ANION GAP | 10 | mmol/L | 6-16 | N | anion gap, | | | | | | | | serum | + + +--------+ + +---+ + | | CO2 | 24 | mmol/L | 21-32 | N | carbon | | | | | | | | dioxide, | | | | | | | | venous | | | | | | | | blood | + + +--------+ + +---+ + | | CHLORIDE | 106 | mmol/L | 98-108 | N | chloride, | | | | | | | | serum | + + +--------+ + +---+ + | | POTASSIUM | 4.5 | mmol/L | 3.5-5.5 | N | [...] + +---+ + | | ZZ-GE-UNK | 0.00 K/mm3 | | 0.00-0.02 | N | GE use | | | | [...] + + +---+ + + + | Office Visit: F/u [...] random | + + + +-------+---+---+ + | | SMOK | never | | | | Tobacco | | | STATUS | smoker | | | | use [facility] | + + + +-------+---+---+ + | | MEDS | Done | [...] | | | ) | + + + +-------+---+---+ + + + | Phone Note: Rx humalog change | + + + +--------+------+---+---+---+ + | | MEDS | Done | [...] | | | | ) | + +--------+------+---+---+---+ + + + | Rx Refill: Added Humalog | + + + +--------+------+---+---+---+ + | | MEDS | Done | [...] | | | | ) | + +--------+------+---+---+---+ + + + | Rx Refill: eRx Request for DADA HERNANDEZ 100 UNIT/ML SOPN | + + + +--------+ +---+---+---+ + | | E[facility]_RR | [id number] | | | B | e-scripts | | | | 6`BASAGLAR | | | | messenger | | | | KWIKPEN | | | | refill | | | | 100 | | | | request | | | | UNIT/ML | | | | | | | | SOPN`100`` | | | | | | | | 3 | | | | | | | | Unspecifie | | | | | | | | d`26`56 | | | | | | | | Units by | | | | | | | | mouth | | | | | | | | every | | | | | | | | morning``1 | | | | | | | | `0` | | | | | | | | 017`09/14/ | | | | | | | | 2016`[facility] | | | | | | | | rt - | | | | | | | | [place]*` | | | | | | | | [phone] | | | | | | | | `[phone] | | | | | | | | 59`[id number]` | | | | | | | | BASAGLAR | | | | | | | | 100UNIT | | | | | | | | INJ | | | | | | | | Quantity: | | | | | | | | 15 | | | | | | | | Unspecifie | | | | | | | | d | | | | | | | | Instructio | | | | | | | | ns: INJECT | | | | | | | | 56 UNITS | | | | | | | | SUBCUTANEO | | | | | | | | USLY IN | | | | | | | | THE | | | | | | | | MORNING | | | | | + +--------+ +---+---+---+ + + + | Lab Report: Urinalysis, Culture If Indicat, Urinalysis, Microscopic | + + + + + + + +---+ + | | UR | NOTE: | | | H | URINALYSIS | | | COMMENTS | | | | | COMMENTS | + + + + + +---+ [...] + + + +---+ + | | REFURINCLT | Yes | | No | H | reflex | | | IN | | | | | urine | | | | | | | | culture | | | | | | | | indicated | + + + + + +---+ [...] + +---+ + | | GLUCOSE, | 4+ | | Neg | H | glucose, | | | URN | | | | | urine, | | | | | | | | semiquanti | | | | | | | | tative | + + + + + +---+ + | | PROTEIN, | 1+ [...] + +---+ + | | ZZ-GE-UNK | Clean | | | N | GE use | | | | Catch | | | | only - for [...] + | Lab Report: Comprehensive Metabolic Panel, Beta-hydroxybutyrate | + + + + +--------+ + +---+ + | | ZZ-GE-UNK | 0.8 | mg/dL | 0.2-2.8 | N | GE use | | | | [...] | | | specified | + + +--------+ + +---+ + | | SGPT (ALT) | 44 | U/L | 12-78 | N | alanine | | | | | | | | aminotrans | | | | | | | | ferase | | | | | | | | (SGPT), | | | | | | | | serum | + + +--------+ + +---+ + | | SGOT (AST) | 54 | U/L | 12-37 | H | aspartate | | | | | | | | aminotrans | | | | | | | | ferase | | | | | | | | (SGOT), | | | | | | | | serum | + + +--------+ + +---+ + | | ALK PHOS | 122 | U/L | 50-136 | N | [...] +---+ + | | A/G RATIO | 1.0 | | 0.8-1.8 | N | albumin/gl | | | | | | | | obulin | | | | | | | | ratio, | | | | | | | | serum | + + +--------+ + +---+ + | | GLOBULIN | 3.6 | g/dL | 2.2-4.0 | N | globulins, | | | TOT | | | | | serum, | | | | | | | | total | + + +--------+ + +---+ + | | ALBUMIN | 3.7 | g/dL | 3.4-5.0 | N | albumin, | | | | | | | | serum | + + +--------+ + +---+ + | | PROTEIN, | 7.3 | g/dL | 6.4-8.2 | N | protein, | | | TOT | | | | | total, | | | | | | | | serum | + + +--------+ + +---+ + | | CALCIUM | 8.8 | mg/dL | 8.5-10.1 | N | calcium, | | | | | | | | serum | + + +--------+ + +---+ + | | GFRC | 26 (?) | mL/min/1.7 | 60- | L [...] + +---+ + | | BUN/CREAT | 17.1 % | | 12.0-20.0 | N | urea | | | | | | | | nitrogen/c | | | | | | | | reatinine | | | | | | | | ratio, | | | | | | | | serum | + + +--------+ + +---+ + | | CREATININE | 1.99 | mg/dL | 0.40-1.00 | H | creatinine | | | | | | | | , serum | + + +--------+ + +---+ + | | BUN | 34 | mg/dL | 8-24 | H | urea | | | | | | | | nitrogen, | | | | | | | | blood | + + +--------+ + +---+ + | | GLUCOSE | 319 | mg/dL | 70-99 | H | blood | | | SER | | | | | glucose | + + +--------+ + +---+ + | | ANION GAP | 8 | mmol/L | 6-16 | N | anion gap, | | | | | | | | serum | + + +--------+ + +---+ + | | CO2 | 25 | mmol/L | 21-32 | N | carbon | | | | | | | | dioxide, | | | | | | | | venous | | | | | | | | blood | + + +--------+ + +---+ + | | CHLORIDE | 105 | mmol/L | 98-108 | N | chloride, | | | | | | | | serum | + + +--------+ + +---+ + | | POTASSIUM | 4.4 | mmol/L | 3.5-5.5 | N | potassium, | | | | | | | | serum | + + +--------+ + +---+ + | | SODIUM | 138 | mmol/L | 136-145 | N | [...] +---+ + | | EOS ABSLT | 0.11 | 10*3/uL | 0.00-0.68 | N | Eosinophil | | | | | | | | Absolute | | | | | | | | Count | + + +------+ + +---+ + | | ABSOLUTE | 0.36 | 10*3/uL | 0.16-1.47 | N | Absolute | | | MON | | | | | Monocytes | + + +------+ + +---+ + | | LYMPHOCYTA | 1.89 | 10*3/uL | 0.84-5.20 | N | lymphocyte | | | BS | | | | | s, | | | | | | | | absolute | + + +------+ + +---+ + | | ANC | 2.71 | 10*3/mm3 | 1.96-9.15 | N | [...] + +---+ + | | EOSINOPHIL | 2 | % | 0-6 | N | eosinophil | | | % | | | | | s as | | | | | | | | percent of | | | | | | | | blood | | | | | | | | leukocytes | + + +------+ + +---+ + | | MONOCYTE % | 7 | % | 4-13 | N | monocytes | | | | | | | | as percent | | | | | | | | of blood | | | | | | | | leukocytes | + + +------+ + +---+ + | | LYMPHS % | 37 | % | 21-46 | N | lymphocyte | | | | | | | | s as | | | | | | | | percent of | | | | | | | | blood | | | | | | | | leukocytes | + + +------+ + +---+ + | | PMN % | 53 | % | 41-73 | N | neutrophil | | | | | | | | s as | | | | | | | | percent of | | | | | | | | blood | | | | | | | | leukocytes | + + +------+ + +---+ + | | MPV | 12.7 | fL | 9.1-12.4 | H | mean | | | | | | | | platelet | | | | | | | | volume | + + +------+ + +---+ + | | PLATELETS | 146 | 10*3/mm3 | 150-400 | L | [...] + +---+ + | | RDW-SD | 42.3 | fL | 35.1-46.3 | N | [...] +---+ + | | MCHC RBC | 34.6 | g/dL | 31.5-36.5 | N | [...] + +---+ + | | MCH | 31.1 | pg | 26.0-34.0 | N | mean | | | | | | | | corpuscula | | | | | | | | r | | | | | | | | hemoglobin | | | | | | | | , RBC | + + +------+ + +---+ + | | MCV | 90 | fL | 80-100 | N | mean | | | | | | | | corpuscula | | | | | | | | r volume, | | | | | | | | RBC | + + +------+ + +---+ + | | HCT | 32.7 | % | 33.0-51.0 | L | hematocrit | | | | | | | | , blood | + + +------+ + +---+ + | | HGB | 11.3 | g/dL | 11.5-16.0 | L | hemoglobin | | | | | | | | , blood | + + +------+ + +---+ + | | RBC | 3.63 | 10*6/mm3 | 3.80-5.20 | L | erythrocyt | | | | | | | | e (RBC) | | | | | | | | count | + + +------+ + +---+ + | | WBC | 5.10 | 10*3/mm3 | 4.00-11.30 | N | leukocyte | | | | | | | | count, | | | | | | | | blood | + + +------+ + +---+ + + + | Office Visit: Endo Consult: JOSE II | + + + +--------+--------+---+---+---+ + | [...] | + +--------+--------+---+---+---+ + + + | Office Visit: F/u DM | + + + + + +---+---+---+ + | | PH URINE | 5.0 | | | | pH, urine, | | | | | | | | | | | | | | | | semiquanti | | | | | | | | tative | + + + +---+---+---+ + | | SPEC GR | 1.015 | | | | specific | | | URIN | | | | | gravity, | | | | | | | | urine | + + + +---+---+---+ + | | APPEARANCE | hazy | | | | appearance | | | U | | | | | , urine | + + + +---+---+---+ + | | UA COLOR | yellow | | | | urine | | | | | | | | color | + + + +---+---+---+ + | | GLUCOSE, | 2+ | | | | glucose, | | | URN | | | | | urine, | | | | | | | | semiquanti | | | | | | | | tative | + + + +---+---+---+ + | | BILIRUBIN | 1+ | | | | bilirubin, | | | UR | | | | | urine | + + + +---+---+---+ + | | KETONES | negative | | | | ketones, | | | URN | | | | | urine, by | | | | | | | | test strip | + + + +---+---+---+ + | | BLOOD UR | negative | | | | blood in | | | DIP | | | | | urine | | | | | | | | (hemoglobi | | | | | | | | n) by | | | | | | | | dipstick | + + + +---+---+---+ + | | PROTEIN, | 1+ | | | | Albumin | | | URN | | | | | [Presence] | | | | | | | | in Urine | + + + +---+---+---+ + | | UROBILINOG | negative | | | | urobilinog | | | EN | | | | | en, urine, | | | | | | | | | | | | | | | | semiquanti | | | | | | | | tative | | | | | | | | (dipstick) | + + + +---+---+---+ + | | NITRITE | positive | | | | nitrite, | | | URN | | | | | urine, | | | | | | | | semiquanti | | | | | | | | tative | + + + +---+---+---+ + | | WBC DIPSTK | trace | | | | leukocyte | | | U | | | | | esterase, | | | | | | | | urine, by | | | | | | | | dipstick | + + + +---+---+---+ + | | SMOK | never | | | | Tobacco | | | STATUS | smoker | | | | use [facility] | + + + +---+---+---+ + + + | Lab Report: Ferritin, Serum | + + + + +-----+-------+-------+---+ + | | FERRITIN | 226 | ng/mL | 8-252 | N | ferritin, | | | | | | | | serum | + + +-----+-------+-------+---+ + + + | Lab Report: Comprehensive Metabolic Panel | + + + + +--------+ + +---+ + | | SGPT (ALT) | 47 | U/L | 12-78 | N | alanine | | | | | | | | aminotrans | | | | | | | | ferase | | | | | | | | (SGPT), | | | | | | | | serum | + + +--------+ + +---+ + | | SGOT (AST) | 46 | U/L | 12-37 | H | aspartate | | | | | | | | aminotrans | | | | | | | | ferase | | | | | | | | (SGOT), | | | | | | | | serum | + + +--------+ + +---+ + | | ALK PHOS | 100 | U/L | 50-136 | N | [...] +---+ + | | A/G RATIO | 1.1 | | 0.8-1.8 | N | albumin/gl | | | | | | | | obulin | | | | | | | | ratio, | | | | | | | | serum | + + +--------+ + +---+ + | | GLOBULIN | 3.6 | g/dL | 2.2-4.0 | N | globulins, | | | TOT | | | | | serum, | | | | | | | | total | + + +--------+ + +---+ + | | ALBUMIN | 4.1 | g/dL | 3.4-5.0 | N | albumin, | | | | | | | | serum | + + +--------+ + +---+ + | | PROTEIN, | 7.7 | g/dL | 6.4-8.2 | N | protein, | | | TOT | | | | | total, | | | | | | | | serum | + + +--------+ + +---+ + | | CALCIUM | 9.2 | mg/dL | 8.5-10.1 | N | calcium, | | | | | | | | serum | + + +--------+ + +---+ + | | GFRC | 31 (?) | mL/min/1.7 | 60- | L [...] + +---+ + | | BUN/CREAT | 12.8 % | | 12.0-20.0 | N | urea | | | | | | | | nitrogen/c | | | | | | | | reatinine | | | | | | | | ratio, | | | | | | | | serum | + + +--------+ + +---+ + | | CREATININE | 1.72 | mg/dL | 0.40-1.00 | H | creatinine | | | | | | | | , serum | + + +--------+ + +---+ + | | BUN | 22 | mg/dL | 8-24 | N | urea | | | | | | | | nitrogen, | | | | | | | | blood | + + +--------+ + +---+ + | | GLUCOSE | 161 | mg/dL | 70-99 | H | blood | | | SER | | | | | glucose | + + +--------+ + +---+ + | | ANION GAP | 9 | mmol/L | 6-16 | N | anion gap, | | | | | | | | serum | + + +--------+ + +---+ + | | CO2 | 28 | mmol/L | 21-32 | N | carbon | | | | | | | | dioxide, | | | | | | | | venous | | | | | | | | blood | + + +--------+ + +---+ + | | CHLORIDE | 105 | mmol/L | 98-108 | N | chloride, | | | | | | | | serum | + + +--------+ + +---+ + | | POTASSIUM | 3.9 | mmol/L | 3.5-5.5 | N | potassium, | | | | | | | | serum | + + +--------+ + +---+ + | | SODIUM | 142 | mmol/L | 136-145 | N | sodium, | | | | | | | | serum | + + +--------+ + +---+ + + + | Lab Report: Ammonia | + + + + +----+--------+-------+---+ + | | AMMONIA(BL | 19 | umol/L | 11-35 | N | ammonia, | | | D) | | | | | serum | + + +----+--------+-------+---+ + + + | Lab Report: Glyco [...] +--------+-----+---+---------+---+ + + + | Office Visit: Transfer care | + + + +--------+--------+---+---+---+ + | [...] +--------+--------+---+---+---+ + + + | Rx Refill: Meclizine | + + + +--------+------+---+---+---+ + | | MEDS | Done | [...] | | | | ) | + +--------+------+---+---+---+ + + + | Phone Note: [place] formulary | + + + +--------+------+---+---+---+ + | | MEDS | Done | [...] | | | | ) | + +--------+------+---+---+---+ + + + | Rx Refill: eRx Request for CLOPIDOGREL 75MG TAB | + + + +--------+ +---+---+---+ + | | ESM_RR | [phone] | | | B | e-scripts | [...] | | | | | | | `0` | | | | | | | | 017`07/19/ | | | | | | | | 2016`[facility] | | | | | | | | rt - | | | | | | | | [place]*` | | | | | | | | [phone] | | | | | | | | `[phone] | | | | | | | [...] + +--------+ +---+---+---+ + + + | Lab Report: SODIUM, POTASSIUM, CREATININE | + + + + +------+ + +---+ + | | ZZ-GE-UNK | 30 | mL/min/1.7 | >=60 | L | GE use | | | | | 3m2 | | | only - for | [...] | | | specified | + + +------+ + +---+ + | | CREATININE | 1.91 | mg/dL | 0.44-1.03 | H | creatinine | | | | | | | | , serum | + + +------+ + +---+ + | | POTASSIUM | 4.7 | mmol/L | 3.5-5.2 | | potassium, | | | | | | | | serum | + + +------+ + +---+ + | | SODIUM | 136 | mmol/L | 135-145 | | sodium, | | | | | | | | serum | + + +------+ + +---+ + + + | Lab Report: HEMOGLOBIN | + + + +-----+------+------+ +---+ + | | HGB | 10.6 | g/dL | 11.5-15.0 | L | hemoglobin | | | | | | | | , blood | + +-----+------+------+ +---+ + + + | Mental Health Visit: Psychiatric Diagnostic Interview Progress Note | + + + + +--------+---+---+---+ + | | MMSE SCORE | 24 | | | | Total | | | | | | | | score | | | | | | | | [MMSE] | + + +--------+---+---+---+ + | | MEDS | Done | [...] | | | ) | + + +--------+---+---+---+ + | | SMOK | never | | | | Tobacco | | | STATUS | smoker | | | | use [facility] | + + +--------+---+---+---+ + + + | Rx Refill: eRx Request for OMEPRAZOLE DR 40MG CAP | + + + +--------+ +---+---+---+ + | | ESM_RR | [phone] | | | B | e-scripts | | | | 1`OMEPRAZO | | | | messenger | | | | LE DR 40MG | | | | refill | | | | | | | | request | | | | CAP`40MG`` | | | | | | | | 30 | | | | | | | | Capsule`30 | | | | | | | | `TAKE ONE | | | | | | | | CAPSULE BY | | | | | | | | MOUTH | | | | | | | | ONCE DAILY | | | | | | | | 30 TO 60 | | | | | | | | MINUTES | | | | | | | | BEFORE | | | | | | | | BREAKFAST | | | | | | | | NEEDED. | | | | | | | | NEEDS TO | | | | | | | | SCHEDULE | | | | | | | | | | | | | | | | APPOINTMEN | | | | | | | | T FOR | | | | | | | | REFILLS.`` | | | | | | | | 1`0`04/09/ | | | | | | | | 2015`06/11 | | | | | | | | /2016`[facility] | | | | | | | | art - | | | | | | | | [place]*` | | | | | | | | [phone] | | | | | | | | `[id number] | | | | | | | | 00``OMEPRA | | | | | | | | ZOLE DR | | | | | | | | 40MG CAP | | | | | | | | Quantity: | | | | | | | | 30 | | | | | | | | Capsule | | | | | | | | Instructio | | | | | | | | ns: TAKE | | | | | | | | ONE | | | | | | | | CAPSULE BY | | | | | | | | MOUTH | | | | | | | | ONCE DAILY | | | | | | | | 30 TO 60 | | | | | | | | MINUTES | | | | | | | | BEFORE | | | | | | | | BREAKFAST | | | | | | | | NEEDED. | | | | | | | | NEEDS TO | | | | | | | | SCHEDULE | | | | | | | | | | | | | | | | APPOINTMEN | | | | | | | | T FOR | | | | | | | | REFILLS. | | | | | + +--------+ +---+---+---+ + + + | Rx Refill: eRx Request for VALSARTAN 160MG TAB | + + + +--------+ +---+---+---+ + | | ESM_RR | [phone] | | | B | e-scripts | | | | 7`VALSARTA | | | | messenger | | | | N 160MG | | | | refill | [...] | | | | | | | MORNING``1 | | | | | | | | `0` | | | | | | | | 017`07/09/ | | | | | | | | 2016`[place] | | | | | | | | rt - | | | | | | | | [place]*` | | | | | | | | [phone] | | | | | | | | `[phone] | | | | | | | [...] | | | | | | | LAST | | | | | | | | REFILL | | | | | | | | UNTIL | | | | | | | | APPT. | | | | | + +--------+ +---+---+---+ + + + | Office Visit | + + + +--------+--------+---+---+---+ + | [...] | use [facility] | + +--------+--------+---+---+---+ + + + | Lab Report: Iron Deficiency Panel | + + + + +------+-------+ +---+ + | | FERRITIN | 178 | ng/mL | 8-252 | N | [...] +---+ + + + | Lab Report: HBS AG CONFIRMATION | + + + + + +---+ +---+ + | | ZZ-GE-UNK | Non | | Non | | GE use | | | | Confirmed | | Confirmed | | only - for | | [...] | | specified | + + + +---+ +---+ + + + | Office Visit: ER follow up | + + + +--------+--------+---+---+---+ + | [...] | + +--------+--------+---+---+---+ + + + | Lab Report: HEPATITIS [...] +---+ + + + | Lab Report: RENAL FUNCTION PANEL, HEPATIC FUNCTION PANEL | + + + + +------+--------+ +---+ + | | SGOT (AST) | 28 | U/L | 15-41 | | aspartate | | | | | | | | aminotrans | | | | | | | | ferase | | | | | | | | (SGOT), | | | | | | | | serum | + + +------+--------+ +---+ + | | SGPT (ALT) | 25 | U/L | 15-54 | | alanine | | | | | | | | aminotrans | | | | | | | | ferase | | | | | | | | (SGPT), | | | | | | | | serum | + + +------+--------+ +---+ + | | ALK PHOS | 66 | U/L | 30-110 | | alkaline | | | | | | | | phosphatas | | | | | | | | e, serum | + + +------+--------+ +---+ + | | BILI | 0.1 | mg/dL | 0.0-0.3 | | bilirubin, | | | DIRECT | | | | | serum, | | | | | | | | direct | + + +------+--------+ +---+ + | | BILI TOTAL | 0.6 | mg/dL | 0.1-1.2 | | bilirubin, | | | | | | | | serum, | | | | | | | | total | + + +------+--------+ +---+ + | | PROTEIN, | 7.2 | g/dL | 6.2-8.4 | | protein, | | | TOT | | | | | total, | | | | | | | | serum | + + +------+--------+ +---+ + | | PO4 | 2.8 | mg/dL | 2.4-4.7 | | phosphate, | | | | | | | | serum | + + +------+--------+ +---+ + | | CALCIUM | 9.0 | mg/dL | 8.6-10.2 | | calcium, | | | | | | | | serum | + + +------+--------+ +---+ + | | ALBUMIN | 3.7 | g/dL | 3.5-5.0 | | albumin, | | | | | | | | serum | + + +------+--------+ +---+ + | | CREATININE | 1.52 | mg/dL | 0.44-1.03 | H | creatinine | | | | | | | | , serum | + + +------+--------+ +---+ + | | BUN | 23 | mg/dL | 6-20 | H | urea | | | | | | | | nitrogen, | | | | | | | | blood | + + +------+--------+ +---+ + | | GLUCOSE | 94 | mg/dL | 70-99 | | blood | | | SER | | | | | glucose | + + +------+--------+ +---+ + | | ANION GAP | 7 | mmol/L | 3-12 | | anion gap, | | | | | | | | serum | + + +------+--------+ +---+ + | | CO2 | 28 | mmol/L | 22-32 | | carbon | | | | | | | | dioxide, | | | | | | | | venous | | | | | | | | blood | + + +------+--------+ +---+ + | | CHLORIDE | 107 | mmol/L | 95-109 | | chloride, | | | | | | | | serum | + + +------+--------+ +---+ + | | POTASSIUM | 4.4 | mmol/L | 3.5-5.2 | | potassium, | | | | | | | | serum | + + +------+--------+ +---+ + | | SODIUM | 142 | mmol/L | 135-145 | | sodium, | | | | | | | | serum | + + +------+--------+ +---+ + + + | Lab Report: HEMOGLOBIN | + + + +-----+------+------+ +---+ + | | HGB | 10.9 | g/dL | 11.5-15.0 | L | hemoglobin | | | | | | | | , blood | + +-----+------+------+ +---+ + + + | Office Visit: Office Visit/Hydration | + + + +--------+--------+---+---+---+ + | [...] | use [facility] | + +--------+--------+---+---+---+ + + + | Lab Report: Urinalysis, Culture If Indicat, Urinalysis, Microscopic | + + + + + + + +---+ + | | HYAL CAST | 2-5 | /[LPF] | 0-2 | H | hyaline | | | UR | | | | | casts, | | | | | | | | urine | + + + + + +---+ + | | BACTERIA | Many | [...] + + + +---+ + | | REFURINCLT | Yes | | No | H | reflex | | | IN | | | | | urine | | | | | | | | culture | | | | | | | | indicated | + + + + + +---+ + | | BLOOD | 2+ | | Neg | H | RBC, [...] +---+ + | | WBC DIPSTK | 2+ | | Neg | H | leukocyte [...] + +---+ + | | ZZ-GE-UNK | Unknown | | | N | GE use | | | | [...] +---+ + + + | Lab Report: B-Type Natriuretic Peptide | + + + + +----+-------+-------+---+ + | | BNP PG/ML | 11 | pg/mL | 0-100 | N | B-type | | | | | | | | natriureti | | | | | | | | c peptide | + + +----+-------+-------+---+ + + + | Lab Report: Comprehensive Metabolic Panel, Troponin I, Lipase, Blood | + + + + +--------+ + +---+ + | | LIPASE | 299 | [...] +---+ + | | SGPT (ALT) | 46 | U/L | 12-78 | N | alanine | | | | | | | | aminotrans | | | | | | | | ferase | | | | | | | | (SGPT), | | | | | | | | serum | + + +--------+ + +---+ + | | SGOT (AST) | 51 | U/L | 12-37 | H | aspartate | | | | | | | | aminotrans | | | | | | | | ferase | | | | | | | | (SGOT), | | | | | | | | serum | + + +--------+ + +---+ + | | ALK PHOS | 88 | U/L | 50-136 | N | alkaline | | | | | | | | phosphatas | | | | | | | | e, serum | + + +--------+ + +---+ + | | BILI TOTAL | 0.5 | mg/dL | 0.1-1.0 | N | bilirubin, | | | | | | | | serum, | | | | | | | | total | + + +--------+ + +---+ + | | A/G RATIO | 1.1 | | 0.8-1.8 | N | albumin/gl [...] + +---+ + | | ALBUMIN | 4.0 | g/dL | 3.4-5.0 | N | albumin, | | | | | | | | serum | + + +--------+ + +---+ + | | PROTEIN, | 7.7 | g/dL | 6.4-8.2 | N | protein, | | | TOT | | | | | total, | | | | | | | | serum | + + +--------+ + +---+ + | | CALCIUM | 9.8 | mg/dL | 8.5-10.1 | N | [...] + +---+ + | | BUN/CREAT | 19.2 % | | 12.0-20.0 | N | urea | | | | | | | | nitrogen/c | | | | | | | | reatinine | | | | | | | | ratio, | | | | | | | | serum | + + +--------+ + +---+ + | | CREATININE | 2.24 | mg/dL | 0.40-1.00 | H | creatinine | | | | | | | | , serum | + + +--------+ + +---+ + | | BUN | 43 | mg/dL | 8-24 | H | urea | | | | | | | | nitrogen, | | | | | | | | blood | + + +--------+ + +---+ + | | GLUCOSE | 169 | mg/dL | 70-99 | H | [...] | CO2 | 28 | mmol/L | 21-32 | N | carbon | | | | | | | | dioxide, | | | | | | | | venous | | | | | | | | blood | + + +--------+ + +---+ + | | CHLORIDE | 102 | mmol/L | 98-108 | N | chloride, | | | | | | | | serum | + + +--------+ + +---+ + | | POTASSIUM | 3.8 | mmol/L | 3.5-5.5 | N | potassium, | | | | | | | | serum | + + +--------+ + +---+ + | | SODIUM | 142 | mmol/L | 136-145 | N | [...] + +---+ + | | ZZ-GE-UNK | 0.00 K/mm3 | | 0.00-0.02 | N | GE use | | | | [...] +---+ + | | EOS ABSLT | 0.06 | 10*3/uL | 0.00-0.68 | N | Eosinophil | | | | | | | | Absolute | | | | | | | | Count | + + + + + +---+ + | | ABSOLUTE | 0.66 | 10*3/uL | 0.16-1.47 | N | Absolute | | | MON | | | | | Monocytes | + + + + + +---+ + | | LYMPHOCYTA | 1.51 | 10*3/uL | 0.84-5.20 | N | lymphocyte | | | BS | | | | | s, | | | | | | | | absolute | + + + + + +---+ + | | ANC | 6.85 | 10*3/mm3 | 1.96-9.15 | N | [...] + +---+ + | | EOSINOPHIL | 1 | % | 0-6 | N | eosinophil | | | % | | | | | s as | | | | | | | | percent of | | | | | | | | blood | | | | | | | | leukocytes | + + + + + +---+ + | | MONOCYTE % | 7 | % | 4-13 | N | monocytes | | | | | | | | as percent | | | | | | | | of blood | | | | | | | | leukocytes | + + + + + +---+ + | | LYMPHS % | 17 | % | 21-46 | L | lymphocyte | | | | | | | | s as | | | | | | | | percent of | | | | | | | | blood | | | | | | | | leukocytes | + + + + + +---+ + | | PMN % | 75 | % | 41-73 | H | neutrophil | | | | | [...] + +---+ + | | PLATELETS | 192 | 10*3/mm3 | 150-400 | N | platelet | | | | | | | | count | + + + + + +---+ + | | RDW | 13.5 | % | 11.7-14.2 | N | red blood | | | | | | | | cell | | | | | | | | distributi | | | | | | | | on width | + + + + + +---+ + | | RDW-SD | 42.9 | fL | 35.1-46.3 | N | [...] +---+ + | | MCHC RBC | 33.8 | g/dL | 31.5-36.5 | N | [...] + +---+ + | | MCH | 29.7 | pg | 26.0-34.0 | N | mean | | | | | | | | corpuscula | | | | | | | | r | | | | | | | | hemoglobin | | | | | | | | , RBC | + + + + + +---+ + | | MCV | 88 | fL | 80-100 | D | mean | | | | | | | | corpuscula | | | | | | | | r volume, | | | | | | | | RBC | + + + + + +---+ + | | HCT | 36.4 | % | 33.0-51.0 | N | hematocrit | | | | | | | | , blood | + + + + + +---+ + | | HGB | 12.3 | g/dL | 11.5-16.0 | N | hemoglobin | | | | | | | | , blood | + + + + + +---+ + | | RBC | 4.14 | 10*6/mm3 | 3.80-5.20 | N | erythrocyt | | | | | | | | e (RBC) | | | | | | | | count | + + + + + +---+ + | | WBC | 9.11 | 10*3/mm3 | 4.00-11.30 | N | [...] +---+ + | | SGOT (AST) | 68 | U/L | 12-37 | H | aspartate | | | | | | | | aminotrans | | | | | | | | ferase | | | | | | | | (SGOT), | | | | | | | | serum | + + +--------+ + +---+ + | | ALK PHOS | 74 | U/L | 50-136 | N | [...] +---+ + | | A/G RATIO | 1.0 | | 0.8-1.8 | N | albumin/gl | | | | | | | | obulin | | | | | | | | ratio, | | | | | | | | serum | + + +--------+ + +---+ + | | GLOBULIN | 3.2 | g/dL | 2.2-4.0 | N | globulins, | | | TOT | | | | | serum, | | | | | | | | total | + + +--------+ + +---+ + | | ALBUMIN | 3.1 | g/dL | 3.4-5.0 | L | albumin, | | | | | | | | serum | + + +--------+ + +---+ + | | PROTEIN, | 6.3 | g/dL | 6.4-8.2 | L | [...] + +---+ + | | GFRC | 29 (?) | mL/min/1.7 | 60- | L [...] + +---+ + | | BUN/CREAT | 11.7 % | | 12.0-20.0 | L | urea | | | | | | | | nitrogen/c | | | | | | | | reatinine | | | | | | | | ratio, | | | | | | | | serum | + + +--------+ + +---+ + | | CREATININE | 1.80 | mg/dL | 0.40-1.00 | H | creatinine | | | | | | | | , serum | + + +--------+ + +---+ + | | BUN | 21 | mg/dL | 8-24 | N | urea | | | | | | | | nitrogen, | | | | | | | | blood | + + +--------+ + +---+ + | | GLUCOSE | 246 | mg/dL | 70-99 | H | blood | | | SER | | | | | glucose | + + +--------+ + +---+ + | | ANION GAP | 7 | mmol/L | 6-16 | N | anion gap, | | | | | | | | serum | + + +--------+ + +---+ + | | CO2 | 24 | mmol/L | 21-32 | N | [...] | POTASSIUM | 4.3 | mmol/L | 3.5-5.5 | N | potassium, | | | | | | | | serum | + + +--------+ + +---+ + | | SODIUM | 144 | mmol/L | 136-145 | N | sodium, | | | | | | | | serum | + + +--------+ + +---+ + + + | Lab Report: CBC with Auto Diff | + + + + + + + +---+ + | | ZZ-GE-UNK | 0.00 K/mm3 | | 0.00-0.02 | N | GE use | | | | [...] +---+ + | | EOS ABSLT | 0.08 | 10*3/uL | 0.00-0.68 | N | Eosinophil | | | | | | | | Absolute | | | | | | | | Count | + + + + + +---+ + | | ABSOLUTE | 0.42 | 10*3/uL | 0.16-1.47 | N | Absolute | | | MON | | | | | Monocytes | + + + + + +---+ + | | LYMPHOCYTA | 1.43 | 10*3/uL | 0.84-5.20 | N | lymphocyte | | | BS | | | | | s, | | | | | | | | absolute | + + + + + +---+ + | | ANC | 2.91 | 10*3/mm3 | 1.96-9.15 | N | [...] + +---+ + | | EOSINOPHIL | 2 | % | 0-6 | N | eosinophil | | | % | | | | | s as | | | | | | | | percent of | | | | | | | | blood | | | | | | | | leukocytes | + + + + + +---+ + | | MONOCYTE % | 9 | % | 4-13 | N | monocytes | | | | | | | | as percent | | | | | | | | of blood | | | | | | | | leukocytes | + + + + + +---+ + | | LYMPHS % | 29 | % | 21-46 | N | lymphocyte | | | | | | | | s as | | | | | | | | percent of | | | | | | | | blood | | | | | | | | leukocytes | + + + + + +---+ + | | PMN % | 60 | % | 41-73 | N | neutrophil | | | | | | | | s as | | | | | | | | percent of | | | | | | | | blood | | | | | | | | leukocytes | + + + + + +---+ + | | MPV | 11.9 | fL | 9.1-12.4 | N | mean | | | | | | | | platelet | | | | | | | | volume | + + + + + +---+ + | | PLATELETS | 131 | 10*3/mm3 | 150-400 | L | [...] + +---+ + | | RDW-SD | 39.9 | fL | 35.1-46.3 | N | [...] +---+ + | | MCHC RBC | 33.5 | g/dL | 31.5-36.5 | N | [...] + +---+ + | | MCH | 28.5 | pg | 26.0-34.0 | N | mean | | | | | | | | corpuscula | | | | | | | | r | | | | | | | | hemoglobin | | | | | | | | , RBC | + + + + + +---+ + | | MCV | 85 | fL | 80-100 | N | mean | | | | | | | | corpuscula | | | | | | | | r volume, | | | | | | | | RBC | + + + + + +---+ + | | HCT | 31.6 | % | 33.0-51.0 | L | hematocrit | | | | | | | | , blood | + + + + + +---+ + | | HGB | 10.6 | g/dL | 11.5-16.0 | L | hemoglobin | | | | | | | | , blood | + + + + + +---+ + | | RBC | 3.72 | 10*6/mm3 | 3.80-5.20 | L | erythrocyt | | | | | | | | e (RBC) | | | | | | | | count | + + + + + +---+ + | | WBC | 4.86 | 10*3/mm3 | 4.00-11.30 | N | leukocyte | | | | | | | | count, | | | | | | | | blood | + + + + + +---+ + + + | Lab Report: URINE CULTURE | + + + + + +---+---+---+ + | | ZZ-GE-UNK | See Report | | | | GE use | [...] | | specified | + + + +---+---+---+ + + + | Lab Report: Comprehensive Metabolic Panel | + + + + +--------+ + +---+ + | | SGPT (ALT) | 53 | U/L | 12-78 | N | alanine | | | | | | | | aminotrans | | | | | | | | ferase | | | | | | | | (SGPT), | | | | | | | | serum | + + +--------+ + +---+ + | | SGOT (AST) | 64 | U/L | 12-37 | H | aspartate | | | | | | | | aminotrans | | | | | | | | ferase | | | | | | | | (SGOT), | | | | | | | | serum | + + +--------+ + +---+ + | | ALK PHOS | 89 | U/L | 40-126 | N | alkaline | | | | | | | | phosphatas | | | | | | | | e, serum | + + +--------+ + +---+ + | | BILI TOTAL | 0.4 | mg/dL | 0.1-1.0 | N | bilirubin, | | | | | | | | serum, | | | | | | | | total | + + +--------+ + +---+ + | | A/G RATIO | 1.0 | | 0.8-1.8 | N | albumin/gl | | | | | | | | obulin | | | | | | | | ratio, | | | | | | | | serum | + + +--------+ + +---+ + | | GLOBULIN | 3.8 | g/dL | 2.2-4.0 | N | globulins, | | | TOT | | | | | serum, | | | | | | | | total | + + +--------+ + +---+ + | | ALBUMIN | 3.8 | g/dL | 3.4-5.0 | N | albumin, | | | | | | | | serum | + + +--------+ + +---+ + | | PROTEIN, | 7.6 | g/dL | 6.4-8.2 | N | protein, | | | TOT | | | | | total, | | | | | | | | serum | + + +--------+ + +---+ + | | CALCIUM | 9.0 | mg/dL | 8.5-10.1 | N | calcium, | | | | | | | | serum | + + +--------+ + +---+ + | | GFRC | 30 (?) | mL/min/1.7 | 60- | L [...] + +---+ + | | BUN/CREAT | 0.6 % | | 12.0-20.0 | L | urea | | | | | | | | nitrogen/c | | | | | | | | reatinine | | | | | | | | ratio, | | | | | | | | serum | + + +--------+ + +---+ + | | CREATININE | 1.69 | mg/dL | 0.40-1.00 | H | creatinine | | | | | | | | , serum | + + +--------+ + +---+ + | | BUN | 1 | mg/dL | 8-24 | L | urea | | | | | | | | nitrogen, | | | | | | | | blood | + + +--------+ + +---+ + | | GLUCOSE | 198 | mg/dL | 70-99 | H | blood | | | SER | | | | | glucose | + + +--------+ + +---+ + | | ANION GAP | 11 | mmol/L | 6-16 | N | anion gap, | | | | | | | | serum | + + +--------+ + +---+ + | | CO2 | 26 | mmol/L | 21-32 | N | carbon | | | | | | | | dioxide, | | | | | | | | venous | | | | | | | | blood | + + +--------+ + +---+ + | | CHLORIDE | 105 | mmol/L | 98-108 | N | chloride, | | | | | | | | serum | + + +--------+ + +---+ + | | POTASSIUM | 4.3 | mmol/L | 3.5-5.5 | N | potassium, | | | | | | | | serum | + + +--------+ + +---+ + | | SODIUM | 142 | mmol/L | 136-145 | N | sodium, | | | | | | | | serum | + + +--------+ + +---+ + + + | Lab Report: CBC with Auto Diff | + + + + + + + +---+ + | | ZZ-GE-UNK | 0.00 K/mm3 | | 0.00-0.02 | N | GE use | | | | [...] +---+ + | | EOS ABSLT | 0.08 | 10*3/uL | 0.00-0.68 | N | Eosinophil | | | | | | | | Absolute | | | | | | | | Count | + + + + + +---+ + | | ABSOLUTE | 0.27 | 10*3/uL | 0.16-1.47 | N | Absolute | | | MON | | | | | Monocytes | + + + + + +---+ + | | LYMPHOCYTA | 1.29 | 10*3/uL | 0.84-5.20 | N | lymphocyte | | | BS | | | | | s, | | | | | | | | absolute | + + + + + +---+ + | | ANC | 3.31 | 10*3/mm3 | 1.96-9.15 | N | [...] + +---+ + | | EOSINOPHIL | 2 | % | 0-6 | N | [...] +---+ + | | LYMPHS % | 26 | % | 21-46 | N | [...] + +---+ + | | PLATELETS | 150 | 10*3/mm3 | 150-400 | N | platelet | | | | | | | | count | + + + + + +---+ + | | RDW | 12.8 | % | 11.7-14.2 | N | red blood | | | | | | | | cell | | | | | | | | distributi | | | | | | | | on width | + + + + + +---+ + | | RDW-SD | 38.5 | fL | 35.1-46.3 | N | [...] +---+ + | | MCHC RBC | 34.1 | g/dL | 31.5-36.5 | N | [...] + +---+ + | | MCH | 28.7 | pg | 26.0-34.0 | N | mean | | | | | | | | corpuscula | | | | | | | | r | | | | | | | | hemoglobin | | | | | | | | , RBC | + + + + + +---+ + | | MCV | 84 | fL | 80-100 | N | mean | | | | | | | | corpuscula | | | | | | | | r volume, | | | | | | | | RBC | + + + + + +---+ + | | HCT | 35.8 | % | 33.0-51.0 | N | hematocrit | | | | | | | | , blood | + + + + + +---+ + | | HGB | 12.2 | g/dL | 11.5-16.0 | N | hemoglobin | | | | | | | | , blood | + + + + + +---+ + | | RBC | 4.25 | 10*6/mm3 | 3.80-5.20 | N | erythrocyt | | | | | | | | e (RBC) | | | | | | | | count | + + + + + +---+ + | | WBC | 5.00 | 10*3/mm3 | 4.00-11.30 | N | leukocyte | | | | | | | | count, | | | | | | | | blood | + + + + + +---+ + + + | Lab Report: RENAL FUNCTION PANEL, HEPATIC FUNCTION PANEL, AMYLASE, LIPASE | + + + + +------+--------+ +---+ + | | MARLENY-GE-SHANKARK | 48 | U/L | 22-51 | | GE use | | | [...] | | | specified | + + +------+--------+ +---+ + | | AMYLASE | 76 | U/L | 23-103 | | amylase, | | | | | | | | serum | + + +------+--------+ +---+ + | | SGOT (AST) | 63 | U/L | 15-41 | H | aspartate | | | | | | | | aminotrans | | | | | | | | ferase | | | | | | | | (SGOT), | | | | | | | | serum | + + +------+--------+ +---+ + | | SGPT (ALT) | 46 | U/L | 15-54 | | alanine | | | | | | | | aminotrans | | | | | | | | ferase | | | | | | | | (SGPT), | | | | | | | | serum | + + +------+--------+ +---+ + | | ALK PHOS | 84 | U/L | 30-110 | | alkaline | | | | | | | | phosphatas | | | | | | | | e, serum | + + +------+--------+ +---+ + | | BILI | 0.1 | mg/dL | 0.0-0.3 | | bilirubin, | | | DIRECT | | | | | serum, | | | | | | | | direct | + + +------+--------+ +---+ + | | BILI TOTAL | 0.9 | mg/dL | 0.1-1.2 | | bilirubin, | | | | | | | | serum, | | | | | | | | total | + + +------+--------+ +---+ + | | PROTEIN, | 8.1 | g/dL | 6.2-8.4 | | protein, | | | TOT | | | | | total, | | | | | | | | serum | + + +------+--------+ +---+ + | | PO4 | 2.6 | mg/dL | 2.4-4.7 | | phosphate, | | | | | | | | serum | + + +------+--------+ +---+ + | | CALCIUM | 9.5 | mg/dL | 8.6-10.2 | | calcium, | | | | | | | | serum | + + +------+--------+ +---+ + | | ALBUMIN | 4.5 | g/dL | 3.5-5.0 | | albumin, | | | | | | | | serum | + + +------+--------+ +---+ + | | CREATININE | 1.90 | mg/dL | 0.44-1.03 | H | creatinine | | | | | | | | , serum | + + +------+--------+ +---+ + | | BUN | 25 | mg/dL | 6-20 | H | urea | | | | | | | | nitrogen, | | | | | | | | blood | + + +------+--------+ +---+ + | | GLUCOSE | 223 | mg/dL | 70-99 | H | blood | | | SER | | | | | glucose | + + +------+--------+ +---+ + | | ANION GAP | 10 | mmol/L | 3-12 | | anion gap, | | | | | | | | serum | + + +------+--------+ +---+ + | | CO2 | 27 | mmol/L | 22-32 | | carbon | | | | | | | | dioxide, | | | | | | | | venous | | | | | | | | blood | + + +------+--------+ +---+ + | | CHLORIDE | 101 | mmol/L | 95-109 | | chloride, | | | | | | | | serum | + + +------+--------+ +---+ + | | POTASSIUM | 4.5 | mmol/L | 3.5-5.2 | | potassium, | | | | | | | | serum | + + +------+--------+ +---+ + | | SODIUM | 138 | mmol/L | 135-145 | | sodium, | | | | | | | | serum | + + +------+--------+ +---+ + + + | Lab Report: COMPLETE BLOOD COUNT WITH AUTOMATED DIFFERENTIAL | + + + + + + + +---+ + | | BASOPH | 0.0 | 10*3/mm3 | 0.0-0.2 | | basophil | | | COUNT | | | | | count, | | | | | | | | blood | + + + + + +---+ + | | EOS COUNT | 0.0 | 10*3/mm3 | 0.0-0.5 | | eosinophil | | | | | | | | count, | | | | | | | | blood | + + + + + +---+ + | | MONOCYTE | 0.2 | 10*3/mm3 | 0.2-1.0 | | monocyte | | | CNT | | | | | count, | | | | | | | | blood | + + + + + +---+ + | | LYMPH | 1.2 | 10*3/mm3 | 1.0-3.5 | | lymphocyte | | | COUNT | | | | | count, | | | | | | | | blood | + + + + + +---+ + | | ANC | 3.6 | 10*3/mm3 | 1.5-8.0 | | neutrophil | | | | | | | | count, | | | | | | | | blood | + + + + + +---+ + | | BASOPHIL % | 0.6 | % | | | basophils | | | | | | | | as percent | | | | | | | | of blood | | | | | | | | leukocytes | + + + + + +---+ + | | EOSINOPHIL | 0.4 | % | | | eosinophil | | | % | | | | | s as | | | | | | | | percent of | | | | | | | | blood | | | | | | | | leukocytes | + + + + + +---+ + | | MONOCYTE % | 3.2 | % | | | monocytes | | | | | | | | as percent | | | | | | | | of blood | | | | | | | | leukocytes | + + + + + +---+ + | | LYMPHS % | 23.4 | % | | | lymphocyte | | | | | | | | s as | | | | | | | | percent of | | | | | | | | blood | | | | | | | | leukocytes | + + + + + +---+ + | | PMN % | 72.2 | % | | | neutrophil | | | | | | | | s as | | | | | | | | percent of | | | | | | | | blood | | | | | | | | leukocytes | + + + + + +---+ + | | MPV | 12.0 | fL | 8.5-12.4 | | mean | | | | | | | | platelet | | | | | | | | volume | + + + + + +---+ + | | PLATELETS | 129 | 10*3/mm3 | 150-400 | L | platelet | | | | | | | | count | + + + + + +---+ + | | RDW | 12.9 | % | 11.5-14.2 | | red blood | | | | | | | | cell | | | | | | | | distributi | | | | | | | | on width | + + + + + +---+ + | | MCHC RBC | 34.0 | g/dL | 31.5-36.5 | | mean | | | | [...] + +---+ + | | MCH | 29.1 | pg | 25.9-34.2 | | mean | | | | | | | | corpuscula | | | | | | | | r | | | | | | | | hemoglobin | | | | | | | | , RBC | + + + + + +---+ + | | MCV | 85.6 | fL | 80.0-100.0 | | mean | | | | | | | | corpuscula | | | | | | | | r volume, | | | | | | | | RBC | + + + + + +---+ + | | HCT | 36.8 | % | 34.8-45.0 | | hematocrit | | | | | | | | , blood | + + + + + +---+ + | | HGB | 12.5 | g/dL | 11.5-15.0 | | hemoglobin | | | | | | | | , blood | + + + + + +---+ + | | RBC | 4.30 M/UL | 10*6/mm3 | 3.75-5.07 | | erythrocyt | | | | | | | | e (RBC) | | | | | | | | count | + + + + + +---+ + | | WBC | 5.0 | 10*3/mm3 | 4.0-11.0 | | leukocyte | | | | | | | | count, | | | | | | | | blood | + + + + + +---+ + + + | Office Visit: DAISY araya/hammad | + + + +--------+--------+---+---+---+ + | | [facility] | 23 | [...] | + +--------+--------+---+---+---+ + + + | Lab Report: Urinalysis, Culture If Indicat, Urinalysis, Microscopic | + + + + + + + +---+ + | | BACTERIA | Rare | | None | H | bacteria, [...] + + + +---+ + | | REFURINCLT | Yes | | No | H | reflex | | | IN | | | | | urine | | | | | | | | culture | | | | | | | | indicated | + + + + + +---+ [...] + +---+ + | | GLUCOSE, | 3+ | | Neg | H | glucose, | | | URN | | | | | urine, | | | | | | | | semiquanti | | | | | | | | tative | + + + + + +---+ + | | PROTEIN, | 3+ | | Neg | H | Albumin [...] +---+ + | | PH URINE | 8.0 | | 5.0-8.0 | H | pH, urine, | | | | [...] +---+ + | | UA COLOR | Pale | | P-Yellow | N | urine | | | | Yellow | | | | color | + + + + + +---+ + | | ZZ-GE-UNK | Voided | | | N | GE use | | | | [...] +---+ + | | SGPT (ALT) | 49 | U/L | 12-78 | N | alanine | | | | | | | | aminotrans | | | | | | | | ferase | | | | | | | | (SGPT), | | | | | | | | serum | + + +--------+ + +---+ + | | SGOT (AST) | 46 | U/L | 12-37 | H | aspartate | | | | | | | | aminotrans | | | | | | | | ferase | | | | | | | | (SGOT), | | | | | | | | serum | + + +--------+ + +---+ + | | ALK PHOS | 113 | U/L | 50-136 | N | [...] +---+ + | | A/G RATIO | 1.0 | | 0.8-1.8 | N | albumin/gl | | | | | | | | obulin | | | | | | | | ratio, | | | | | | | | serum | + + +--------+ + +---+ + | | GLOBULIN | 4.1 | g/dL | 2.2-4.0 | H | globulins, | | | TOT | | | | | serum, | | | | | | | | total | + + +--------+ + +---+ + | | ALBUMIN | 4.0 | g/dL | 3.4-5.0 | N | albumin, | | | | | | | | serum | + + +--------+ + +---+ + | | PROTEIN, | 8.1 | g/dL | 6.4-8.2 | N | protein, | | | TOT | | | | | total, | | | | | | | | serum | + + +--------+ + +---+ + | | CALCIUM | 9.3 | mg/dL | 8.5-10.1 | N | calcium, | | | | | | | | serum | + + +--------+ + +---+ + | | GFRC | 27 (?) | mL/min/1.7 | 60- | L [...] + +---+ + | | BUN/CREAT | 19.7 % | | 12.0-20.0 | N | urea | | | | | | | | nitrogen/c | | | | | | | | reatinine | | | | | | | | ratio, | | | | | | | | serum | + + +--------+ + +---+ + | | CREATININE | 1.93 | mg/dL | 0.40-1.00 | H | creatinine | | | | | | | | , serum | + + +--------+ + +---+ + | | BUN | 38 | mg/dL | 8-24 | H | urea | | | | | | | | nitrogen, | | | | | | | | blood | + + +--------+ + +---+ + | | GLUCOSE | 175 | mg/dL | 70-99 | H | blood | | | SER | | | | | glucose | + + +--------+ + +---+ + | | ANION GAP | 11 | mmol/L | 6-16 | N | anion gap, | | | | | | | | serum | + + +--------+ + +---+ + | | CO2 | 25 | mmol/L | 21-32 | N | carbon | | | | | | | | dioxide, | | | | | | | | venous | | | | | | | | blood | + + +--------+ + +---+ + | | CHLORIDE | 104 | mmol/L | 98-108 | N | chloride, | | | | | | | | serum | + + +--------+ + +---+ + | | POTASSIUM | 4.3 | mmol/L | 3.5-5.5 | N | [...] + +---+ + | | ZZ-GE-UNK | 0.00 K/mm3 | | 0.00-0.02 | N | GE use | | | | [...] +---+ + | | EOS ABSLT | 0.09 | 10*3/uL | 0.00-0.68 | N | Eosinophil | | | | | | | | Absolute | | | | | | | | Count | + + + + + +---+ + | | ABSOLUTE | 0.33 | 10*3/uL | 0.16-1.47 | N | Absolute | | | MON | | | | | Monocytes | + + + + + +---+ + | | LYMPHOCYTA | 1.59 | 10*3/uL | 0.84-5.20 | N | lymphocyte | | | BS | | | | | s, | | | | | | | | absolute | + + + + + +---+ + | | ANC | 3.64 | 10*3/mm3 | 1.96-9.15 | N | [...] + +---+ + | | EOSINOPHIL | 2 | % | 0-6 | N | eosinophil | | | % | | | | | s as | | | | | | | | percent of | | | | | | | | blood | | | | | | | | leukocytes | + + + + + +---+ + | | MONOCYTE % | 6 | % | 4-13 | N | monocytes | | | | | | | | as percent | | | | | | | | of blood | | | | | | | | leukocytes | + + + + + +---+ + | | LYMPHS % | 28 | % | 21-46 | N | lymphocyte | | | | | | | | s as | | | | | | | | percent of | | | | | | | | blood | | | | | | | | leukocytes | + + + + + +---+ + | | PMN % | 64 | % | 41-73 | N | neutrophil | | | | | | | | s as | | | | | | | | percent of | | | | | | | | blood | | | | | | | | leukocytes | + + + + + +---+ + | | MPV | 12.7 | fL | 9.1-12.4 | H | mean | | | | | | | | platelet | | | | | | | | volume | + + + + + +---+ + | | PLATELETS | 138 | 10*3/mm3 | 150-400 | L | platelet | | | | | | | | count | + + + + + +---+ + | | RDW | 13.1 | % | 11.7-14.2 | N | red blood | | | | | | | | cell | | | | | | | | distributi | | | | | | | | on width | + + + + + +---+ + | | RDW-SD | 39.8 | fL | 35.1-46.3 | N | [...] +---+ + | | MCHC RBC | 34.0 | g/dL | 31.5-36.5 | N | [...] + +---+ + | | MCH | 28.9 | pg | 26.0-34.0 | N | mean | | | | | | | | corpuscula | | | | | | | | r | | | | | | | | hemoglobin | | | | | | | | , RBC | + + + + + +---+ + | | MCV | 85 | fL | 80-100 | N | mean | | | | | | | | corpuscula | | | | | | | | r volume, | | | | | | | | RBC | + + + + + +---+ + | | HCT | 37.9 | % | 33.0-51.0 | N | hematocrit | | | | | | | | , blood | + + + + + +---+ + | | HGB | 12.9 | g/dL | 11.5-16.0 | N | hemoglobin | | | | | | | | , blood | + + + + + +---+ + | | RBC | 4.47 | 10*6/mm3 | 3.80-5.20 | N | erythrocyt | | | | | | | | e (RBC) | | | | | | | | count | + + + + + +---+ + | | WBC | 5.69 | 10*3/mm3 | 4.00-11.30 | N | leukocyte | | | | | | | | count, | | | | | | | | blood | + + + + + +---+ + + + | Lab Report: Chem 8 with HGB + HCT (ISTAT) | + + + + +--------+-------+ +---+ + | | ZZ-GE-UNK | 34.0 % | | 36.0-46.0 | L | GE use | | | | [...] | | | specified | + + +--------+-------+ +---+ + | | [...] + +---+ + | | BACTERIA | Many | | None | H | bacteria, | | | URN | | | | | urine | | | | | | | | microscopy | + + + + + +---+ + | | EPI | Rare | /[HPF] | Few | N | [...] +---+ + | | WBCS MICRO | 10-25 /hpf | {Cells}/[H | 0-5 | H | WBC urine | | | U | | PF] | | | on | | | | | | | | microscopy | + + + + + +---+ + | | REFURINCLT | Yes | | No | H | reflex | | | IN | | | | | urine | | | | | | | | culture | | | | | | | | indicated | + + + + + +---+ [...] + +---+ + | | GLUCOSE, | 4+ | | Neg | H | glucose, | | | URN | | | | | urine, | | | | | | | | semiquanti | | | | | | | | tative | + + + + + +---+ + | | PROTEIN, | Neg | | Neg | N | Albumin | | | URN | | | | | [Presence] | | | | | | | | in Urine | + + + + + +---+ + | | NITRITE | Pos | | Neg | H | nitrite, | | | URN | [...] + +---+ + | | APPEARANCE | Hazy | | Clear | H | appearance | | | U | | | | | , urine | + + + + + +---+ + | | UA COLOR | Pale | | P-Yellow | N | urine | | | | Yellow | | | | color | + + + + + +---+ + | | ZZ-GE-UNK | Clean | | | N | GE use | | | | Catch | | | | only - for [...] +---+ + + + | Lab Report: Ammonia | + + + + +----+--------+-------+---+ + | | AMMONIA(BL | 27 | umol/L | 11-35 | N | ammonia, | | | D) | | | | | serum | + + +----+--------+-------+---+ + + + | Lab Report: Comprehensive Metabolic Panel | + + + + +--------+ + +---+ + | | SGPT (ALT) | 63 | U/L | 12-78 | N | alanine | | | | | | | | aminotrans | | | | | | | | ferase | | | | | | | | (SGPT), | | | | | | | | serum | + + +--------+ + +---+ + | | SGOT (AST) | 67 | U/L | 12-37 | H | aspartate | | | | | | | | aminotrans | | | | | | | | ferase | | | | | | | | (SGOT), | | | | | | | | serum | + + +--------+ + +---+ + | | ALK PHOS | 116 | U/L | 50-136 | N | [...] + +---+ + | | GLOBULIN | 3.8 | g/dL | 2.2-4.0 | N | globulins, | | | TOT | | | | | serum, | | | | | | | | total | + + +--------+ + +---+ + | | ALBUMIN | 3.4 | g/dL | 3.4-5.0 | N | albumin, | | | | | | | | serum | + + +--------+ + +---+ + | | PROTEIN, | 7.2 | g/dL | 6.4-8.2 | N | protein, | | | TOT | | | | | total, | | | | | | | | serum | + + +--------+ + +---+ + | | CALCIUM | 9.5 | mg/dL | 8.5-10.1 | N | calcium, | | | | | | | | serum | + + +--------+ + +---+ + | | GFRC | 25 (?) | mL/min/1.7 | 60- | L [...] + +---+ + | | BUN/CREAT | 20.0 % | | 12.0-20.0 | N | urea | | | | | | | | nitrogen/c | | | | | | | | reatinine | | | | | | | | ratio, | | | | | | | | serum | + + +--------+ + +---+ + | | CREATININE | 2.10 | mg/dL | 0.40-1.00 | H | creatinine | | | | | | | | , serum | + + +--------+ + +---+ + | | BUN | 42 | mg/dL | 8-24 | H | urea | | | | | | | | nitrogen, | | | | | | | | blood | + + +--------+ + +---+ + | | GLUCOSE | 333 | mg/dL | 70-99 | H | blood | | | SER | | | | | glucose | + + +--------+ + +---+ + | | ANION GAP | 11 | mmol/L | 6-16 | N | anion gap, | | | | | | | | serum | + + +--------+ + +---+ + | | CO2 | 27 | mmol/L | 21-32 | N | carbon | | | | | | | | dioxide, | | | | | | | | venous | | | | | | | | blood | + + +--------+ + +---+ + | | CHLORIDE | 102 | mmol/L | 98-108 | N | chloride, | | | | | | | | serum | + + +--------+ + +---+ + | | POTASSIUM | 4.3 | mmol/L | 3.5-5.5 | N | [...] + +---+ + | | ZZ-GE-UNK | 0.00 K/mm3 | | 0.00-0.02 | N | GE use | | | | [...] +---+ + | | EOS ABSLT | 0.14 | 10*3/uL | 0.00-0.68 | N | Eosinophil | | | | | | | | Absolute | | | | | | | | Count | + + + + + +---+ + | | ABSOLUTE | 0.32 | 10*3/uL | 0.16-1.47 | N | Absolute | | | MON | | | | | Monocytes | + + + + + +---+ + | | LYMPHOCYTA | 1.33 | 10*3/uL | 0.84-5.20 | N | lymphocyte | | | BS | | | | | s, | | | | | | | | absolute | + + + + + +---+ + | | ANC | 2.41 | 10*3/mm3 | 1.96-9.15 | N | [...] + +---+ + | | EOSINOPHIL | 3 | % | 0-6 | N | [...] +---+ + | | LYMPHS % | 32 | % | 21-46 | N | lymphocyte | | | | | | | | s as | | | | | | | | percent of | | | | | | | | blood | | | | | | | | leukocytes | + + + + + +---+ + | | PMN % | 57 | % | 41-73 | N | neutrophil | | | | | | | | s as | | | | | | | | percent of | | | | | | | | blood | | | | | | | | leukocytes | + + + + + +---+ + | | MPV | 12.9 | fL | 9.1-12.4 | H | mean | | | | | | | | platelet | | | | | | | | volume | + + + + + +---+ + | | PLATELETS | 118 | 10*3/mm3 | 150-400 | L | platelet | | | | | | | | count | + + + + + +---+ + | | RDW | 13.3 | % | 11.7-14.2 | N | red blood | | | | | | | | cell | | | | | | | | distributi | | | | | | | | on width | + + + + + +---+ + | | RDW-SD | 41.1 | fL | 35.1-46.3 | N | [...] +---+ + | | MCHC RBC | 33.6 | g/dL | 31.5-36.5 | N | [...] + +---+ + | | MCH | 28.9 | pg | 26.0-34.0 | N | mean | | | | | | | | corpuscula | | | | | | | | r | | | | | | | | hemoglobin | | | | | | | | , RBC | + + + + + +---+ + | | MCV | 86 | fL | 80-100 | N | mean | | | | | | | | corpuscula | | | | | | | | r volume, | | | | | | | | RBC | + + + + + +---+ + | | HCT | 34.8 | % | 33.0-51.0 | N | hematocrit | | | | | | | | , blood | + + + + + +---+ + | | HGB | 11.7 | g/dL | 11.5-16.0 | N | hemoglobin | | | | | | | | , blood | + + + + + +---+ + | | RBC | 4.05 | 10*6/mm3 | 3.80-5.20 | N | erythrocyt | | | | | | | | e (RBC) | | | | | | | | count | + + + + + +---+ + | | WBC | 4.22 | 10*3/mm3 | 4.00-11.30 | N | leukocyte | | | | | | | | count, | | | | | | | | blood | + + + + + +---+ + + + | Rx Refill: eRx Request for VALSARTAN 160MG TAB | + + + +--------+ +---+---+---+ + | | [facility] | [id number] | | | B | e-scripts | | | | 6`CATHYSASUSSY | | | | messenger | | | | N 160MG | | | | refill | [...] | | | | | | | MORNING``1 | | | | | | | | `0`04/30/ | | | | | | | | 016`05/10/ | | | | | | | | 2015`[facility] | | | | | | | | rt - | | | | | | | | [place]*` | | | | | | | | [phone] | | | | | | | | `[phone] | | | | | | | [...] | MORNING | | | | | + +--------+ +---+---+---+ + + + | Rx Refill: eRx Request for INSULIN [id number] MIS | + + + +--------+ +---+---+---+ + | | [facility] | [id number] | | | B | e-scripts | | | | 7`INSULIN | | | | messenger | | | | [id number] | | | | refill | | | | G | | | | request | | | | MIS`1ML/29 | | | | | | | | G``100 | | | | | | | | Unspecifie | | | | | | | | d`20`USE | | | | | | | | SYRINGES | | | | | | | | TO INJECT | | | | | | | | INSULIN 5 | | | | | | | | TIMES | | | | | | | | DAILY.``1` | | | | | | | | 0`04/30/20 | | | | | | | | 16` | | | | | | | | 016`[facility] | | | | | | | | t - | | | | | | | | [place]*` | | | | | | | | [id number] | | | | | | | | `[id number] | | | | | | | | 01`05812`I | | | | | | | | NSULIN | | | | | | | | [id number]/ | | | | | | | | G MIS | | | | | | | | Quantity: | | | | | | | | 100 | | | | | | | | Unspecifie | | | | | | | | d | | | | | | | | Instructio | | | | | | | | ns: USE | | | | | | | | SYRINGES | | | | | | | | TO INJECT | | | | | | | | INSULIN 5 | | | | | | | | TIMES | | | | | | | | DAILY. | | | | | + +--------+ +---+---+---+ + + + | Rx Refill: eRx Request for LYRICA 100MG CAP | + + + +--------+ +---+---+---+ + | | [facility] | [phone] | | | B | e-scripts | | | | 9`LYRICA | | | | messenger | | | | 100MG | | | | refill | | | | | | | | request | | | | CAP`100MG` | | | | | | | | `90 | | | | | | | | Capsule`30 | | | | | | | | `TAKE ONE | | | | | | | | CAPSULE BY | | | | | | | | MOUTH | | | | | | | | THREE | | | | | | | | TIMES PER | | | | | | | | DAY. | | | | | | | | PATIENT | | | | | | | | STATES | | | | | | | | NEEDED.``1 | | | | | | | | `0`// | | | | | | | | 016`/18/ | | | | | | | | 2016`Walma | | | | | | | | rt - | | | | | | | | [place]*` | | | | | | | | [phone] | | | | | | | | `[id number] | | | | | | | | 568`[id number]` | | | | | | | | LYRICA | | | | | | | | 100MG | | | | | | | | CAP | | | | | | | | Quantity: | | | | | | | | 90 Capsule | | | | | | | | | | | | | | | | Instructio | | | | | | | | ns: TAKE | | | | | | | | ONE | | | | | | | | CAPSULE BY | | | | | | | | MOUTH | | | | | | | | THREE | | | | | | | | TIMES PER | | | | | | | | DAY. | | | | | | | | PATIENT | | | | | | | | STATES | | | | | | | | NEEDED. | | | | | + +--------+ +---+---+---+ + + + | Rx Refill: eRx Request for ATORVASTATIN 20MG TAB | + + + +--------+ +---+---+---+ + | | [facility] | [phone] | | | B | e-scripts | | | | 1`ATORVAST | | | | messenger | | | | ATIN 20MG | | | | refill | | | | | | | | request | | | | TAB`20MG`` | | | | | | | [...] | | | | | | | `0`12/25/ | | | | | | | | 016`04/18/ | | | | | | | | 2015`[facility] | | | | | | | | rt - | | | | | | | | [place]*` | | | | | | | | [id number] | | | | | | | | `[id number] | | | | | | | | 70``ATORVA | | | | | | | | STATIN | | | | | | | | 20MG TAB | | | | | | [...] Detail | + + + + | Referral | | Ophthalmology Consult | | | | Huong Rose, | | | | [address], [place], | | | | [place], [address] | | | | | + + + + | Referral | | Ophthalmology Consult | | | | Huong Rose, | | | | [address], [place], | | | | [place], [address] | | | | | + + + + | Referral | | Physical Therapy Evaluation | | | | [facility], [address] | | | [address] | | | | [address], [place], [address] | | | | | | | | | + + + + | Referral | | Physical Therapy Evaluation | | | | [facility], [address] | | | | [address] | | | | [address], [place], [address] | | | | | | | | | + + + + | Referral | | GI Consult | | | | Emeka Clark MD, [address] | | | | [address], | | | | [place], [address] | | | | | + + + + | Referral | | GI Consult | | | | Emeka Clark MD, [address] | | | | [address], | | | | [place], [address] | | | | | + + + + | Referral | | Nephrology Evaluation | | | | Anisa Reeves, | | | | [address] [facility] | | | | [address], [place], [address] | | | | | | | | | + + + + | Referral | | Nephrology Evaluation | | | | Larry Galo, | | | | [address], | | | | [address], [place], [address] | | | | | | | | | + + + + | Referral | | Surgical Consult | | | | Jesus Long, [address] | | | [address], | | | | [place], [address] | | | | | + + + + | Referral | | Surgical Consult | | | | Jesus Long, [address] | | | | [address], | | | | [place], [address] | | | | | + + + + | Referral | | Endocrinology Consult | + + + + | Referral | | Podiatry Consult | | | | Kali Palacio, [address] | | | | [place], | | | | [place], [address] | | | | | + + + + | Referral | | Nephrology Evaluation | | | | Larry Galo, | | | | [address], | | | | [address], [place], [address] | | | | | | | | | + + + + | Referral | | Podiatry Consult | | | | Kali Palacio, [address] | | | | [place], | | | | [place], [address] | | | | | + + + + | Referral | | Nephrology Evaluation | | | | Larry Galo, | | | | [address], | | | | [address], [place], [address] | | | | | | | | | + + + + | Referral | | Neurology Consult | | | | [employer] Gen Phone #, | | | | [phone] [facility] | | | | , [place], [address] | | | | | + + + + | Referral | | Neurology Consult | | | | [employer] Gen Phone #, | | | | [address] [facility] | | | | , [place], [address] | | | | | + + + + | Referral | | MRA Head-WO Con | | | | Dian Atkins, [address] | | | | [address], | | | | [place], [address] | | | | | + + + + | Referral | | MRA Head-WO Con | | | | Dian Scheduling, [address] | | | | [address], | | | | [place], [address] | | | | | + + + + | Referral | | MRA Head-WWO Con | | | | Mercy Scheduling, [address] | | | | [address], | | | | [place], [address] | | | | | + + + + | Referral | | MRA Head-WWO Con | | | | Dian Scheduling, [address] | | | | [address], | | | | [place], [address] | | | | | + + + + +---+ + | | Referral excluded from report: | +---+ + + + + + | Referral | | Physical Therapy Evaluation | | | | [facility], [address] | | | | [address] | | | | [address], [place], [address] | | | | | | | | | + + + + | Referral | | Neurology Consult | | | | MD August Bourne, [address] | | | | [address] [place], | | | | [place], [address] | | | | | + + + + | Referral | | Neurology Consult | | | | Rogers Ozuna, [address] | | | | [address] [place], | | | | [place], [address] | | | | | + + + + | Referral | | Cardiology Consult | | | | MD Pelon Fay, | | | | [address] | | | | [address], [place], [address] | | | | | | | | | + + + + | Referral | | GI Consult | | | | [address] | | | | [address], [place], [address] | | | | | | | | | + + + + | Referral | | Physical Therapy Evaluation | | | | [facility], [address] | | | | [address] | | | | [address], [place], [address] | | | | | | | | | + + + + | Referral | | Diabetic Education - | | | | Individual | | | | [facility], | | | | [address], | | | | [place], [address] | | | | | + + + + | Referral | | GI Consult | | | | [address] | | | | [address], [place], [address] | | | | | | | | | + + + + | Referral | | US Soft Tissue Head/Neck | | | | Exam Dian | | | | Scheduling, [address] | | | | [address], [place], [place], | | | | [address] | | | | | + + + + | Referral | | Neurology Consult | | | | [place] [facility] | | | | [facility], [address] [facility], | | | | [place], [address] | | | | | + + + + | Referral | | VL Carotid-Cerebral Duplex | | | | Dian | | | | Scheduling, [address] [facility] | | | | [place], [place], | | | | [address] | | | | | + + + + | Referral | | Holter Monitor | | | | Dian Scheduling, [address] | | | | [address] [facility], | | | | [place], [address] | | | | | + + [...] Microalb/Creat Ratio UR, | | | | Katy | + + + + | Pending [...] | + + + + + | [id number] | Overweight | | | + + + + + | CPT-28075 | IV infusion -1st hr | | | | | (Rehydration) | | | + + + + + | CPT-48286 | Glucose by monitor | | | + + + + + | CPT-56772 | UA Dipstick | | | + + + + + | CPT-05118 | UA Dipstick | | | + + + + + | CPT-80112 | Initial Psych | | | | | Evaluation | | | + + + + + | CPT-23497 | Debride Nail, [address] or | | | | | more [address] | | | + + + + [...] | + + + + + | CPT-29898 | Trim Skin Lesions | | | | | [address] | | | + + + + + | CPT-81144 | UA Dipstick | | | + + + + + | CPT-55392 | [facility], [address] or | | | | | more [address] | | | + + + + [...] | + + + + + | CPT-60065 | [facility], [address] | | | | | more [address] | | | + + + + [...] | + + + + + | CPT-29873 | MRA Head-WWO Con | | | + + + + + +---+ + | | Order excluded from report: | +---+ + + + + + + | CPT-98153 | Physical Therapy | | | | | Evaluation | | | + + + + + | [id number] | [facility] Generic Patient | | | | | Encounter Service | | | | | (from patch) | | | + + + + + | [id number] | [Recorded for [facility]] | | | | | Documentation of | | | | | current medications | | | | | (procedure) | | | + + + + + | [id number] | [Recorded for [facility]] | | | | | Documentation of | | | | | current medications | | | | | (procedure) | | | + + + + + | [id number] | [Recorded for [facility]] | | | | | Documentation of | | | | | current medications | | | | | (procedure) | | | + + + + + | [id number] | [Recorded for [facility]] | | | | | Documentation of | | | | | current medications | | | | | (procedure) | | | + + + + + | FREE T4 70010 | T4 Free | | | + + + + + | T3 FREE 93392 | T3 Free | | | + + + + + | TSH 53974 | TSH | | | + + + + + | GLYCO HGB 10814 | HgbA1C | | | + + + + + | [id number] | [facility] Generic Patient | | | | | Encounter Service | | | | | (from patch) | | | + + + + + | [id number] | [Recorded for [facility]] | | | | | Documentation of | | | | | current medications | | | | | (procedure) | | | + + + + + | [id number] | [facility] Generic Patient | | | | | Encounter Service | | | | | (from patch) | | | + + + + + | CPT-33458 | EKG- tracing with | | | | | report (40904) | | | + + + + + | [id number] | [Recorded for [facility]] | | | | | Documentation of | | | | | current medications | | | | | (procedure) | | | + + + + + | [id number] | [facility] Generic Patient | | | | | Encounter Service | | | | | (from patch) | | | + + + + + | CPT-Troponin l | Troponin I | | | | 54419 | | | | + + + + + | [id number] | [Recorded for [facility]] | | | | | Documentation of | | | | | current medications | | | | | (procedure) | | | + + + + + | CPT-47124 | Physical Therapy | | | | | Evaluation | | | + + + + + | CPT-G8427 | Current Medications | | | | | Documented | | | + + + + + | [id number] | [Recorded for [facility]] | | | | | Documentation of | | | | | current medications | | | | | (procedure) | | | + + + + + | CPT-G8427 | Current Medications | | | | | Documented | | | + + + + + | [id number] | [Recorded for [facility]] | | | [...] + + + + | CHEM PROF 62313 | CMP (Comprehensive | | | | | Metabolic Panel) | | | + + + + + | GLYCO HGB 26612 | HgbA1C | | | + + + + + | CPT-Q2037 | Fluvirin | | | | | (Influenza) | | | | | Med/Atrio | | | + + + + + | RISK 32708 | Lipid Profile | | | + + + + + | VIT D HYDR 02184 | Vit D, 25 hydroxy | | | + + + + + | CYC CITRU 00664 | Cyclic | | | | | Citrullinated Pept | | | | | IgG | | | + + + + + | RA QUANT 52219 | Rheumatoid Factor | | | | | (quant) | | | + + + + + | TSH 79186 | TSH | | | + + + + + | IVANA 61179 | IVANA | | | + + + + + | GLYCO HGB 93380 | HgbA1C | | | + + + + + | CPT-85192 | EKG- tracing with | | | | | report (81396) | | | + + + + + | CPT-15869 | ANDRE | | | + + + + + | 48105 15439 | Holter Monitor 48H | | | | | Panel | | | + + + + + | 31137 37041 | Holter Monitor 72H | | | | | Panel | | | + + + + + | CPT-21764 | Barium Swallow MBS | | | | | with Speech | | | + + + + + | 19214 28477 | US Abdomen-Cmplt | | | | | and Pelvic-Lmtd | | | + + + + + | CPT-73914 | US Soft Tissue | | | | | Head/Neck Exam | | | + + + + + | CPT-72850 | Motor nerve testing | | | | | - each nerve | | | + + + + + | RISK 47661 | Lipid Profile | | | + + + + + | ESR 94134 | Sedimentation Rate | | | | | (ESR) | | | + + + + + | SPEP IF 45963 | SPEP with JESÚS if | | | | | indicated | | | + + + + + | B12+FOLATE MULTIPLE | B-12 - Folate | | | + + + + + | PFA 57132 | Platelet Function | | | | | Assay | | | + + + + + | 76274 | MRA Head-WO Con | | | + + + + + | 88490 | MR Head-WO Con | | | + + + + + | CPT-05528 | VL Carotid-Cerebral | | | | | Duplex | | | + + + + + | CPT-45576 | Holter Monitor | | | + + + + + | D DIMER 64921 | D-dimer (tyrese) | | | + + + + + | 66146 | CT Head-WWO Con | | | + + + + + | VIT D HYDR 98970 | Vit D, 25 hydroxy | | | + + + + + | TSH 35431 | TSH | | | + + + + + | B12+FOLATE MULTIPLE | B-12 - Folate | | | + + + + + | UA 13210 | Urinalysis | | | + + + + + | CHEM PROF 90262 | CMP (Comprehensive | | | | | Metabolic Panel) | | | + + + + + | CBC 49192 | CBC w/ Diff - w/ | | | | | platelets | | | + + + + + | GLYCO HGB 02869 | HgbA1C | | | + + + + + | TSH 68514 | TSH | | | + + + + + | VIT D HYDR 31410 | Vit D, 25 hydroxy | | [...] + | | BMI (Body Mass | 32.12 | kg/m2 | Body Mass Index | [...] +-------+---------+ + | | Weight Measured | 169.4 | [lb_av] | weight E&M | + + +-------+---------+ + | | BMI (Body Mass | 32.24 | kg/m2 | Body Mass Index | | | Index) | | | [Ratio] | + + +-------+---------+ + | | BP Diastolic | 701 | mm[Hg] | blood pressure, | | | | | | diastolic | + + +-------+---------+ + | | BP Systolic | 132 | mm[Hg] | blood pressure, | | | | | | systolic | + + +-------+---------+ + | | Heart Rate | 68 | /min | pulse rate E&M | + + +-------+---------+ + | | Height | 61 | [in_us] | height E&M | + + +-------+---------+ + | | Weight Measured | 170 | [lb_av] | weight E&M | + + +-------+---------+ + | | BMI (Body Mass | 32.46 | kg/m2 | Body Mass Index | | | Index) | | | [Ratio] | + + +-------+---------+ + | | BP Diastolic | 76 | mm[Hg] | blood pressure, | | | | | | diastolic | + + +-------+---------+ + | | BP Diastolic | 76 | mm[Hg] | blood pressure, | | [...] + +-------+---------+ + | | Body | 97.8 | [degF] | temperature E&M | | | Temperature | | | | + + +-------+---------+ + | | Heart Rate | 87 | /min | pulse rate E&M | + + +-------+---------+ + | | Weight Measured | 171.2 | [lb_av] | weight E&M | + + +-------+---------+ + | | BMI (Body Mass | 34.51 | kg/m2 | Body Mass Index | | | Index) | | | [Ratio] | + + +-------+---------+ + | | BP Diastolic | 76 | mm[Hg] | blood pressure, | | | | | | diastolic, | | | | | | second | | | | | | observation | + + +-------+---------+ + | | BP Diastolic | 76 | mm[Hg] | blood pressure, | | [...] + +-------+---------+ + | | Body | 96.7 | [degF] | temperature E&M | | [...]
--- OUTSIDE RECORDS SUMMARY | ~2019-03-25 | XMS | Continuity of Care Document ---
Demographics + + + | Address | [address] | | | [place] [address] | + + + | Home Phone | | + + + | Preferred Language | Unknown | + + + | Marital Status | Unknown | + + + | Church Affiliation | Unknown | + + + | Race | Unknown | + + + | Ethnic Group | Unknown | + + + Author + + + | Author | [facility] | + + + | Organization | [facility] | + + + | Address | [address] | | | [place] [address] | + + + | Phone | | + + + Support + + + + + | Name | Relationship | Address | Phone | + + + + + | Dhaval Flores DO | Caregiver | [address] | | | | | [place] | | | | | [address] | | + + + + + | Larry Galo MD | Caregiver | Kidney & | | | | | Hypertension | | | | | [place] | | | | | [address] | | + + + + + | DOLORES DIANA | Next Of Wilfred | [address] | | | | | [place] [address] | | + + + + + Care Team Providers + + + + | Care Single Needle 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 Machine 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 Name | Role | Phone | + + + + | Larry Galo MD | Unavailable | | + + + + Insurance Providers + + + + + | Payer Name | Policy Number | Subscriber Name | Relationship | + + + + + | [employer] | [id number] | JULI DIANA | SELF | | PLAN | | | | + + + + + | [employer] | [id number] | JULI DIANA | SELF | | PPO | | | | + + + + + Chief Complaint and Reason for Visit + + + | Reason for Visit | BLURRY VISION IN R EYE CANT SEE | + + + Problems Active Medical [...] Active | + + + +--------+ | Blurred vision, | Unknown | 03/17/17 | Active | | right eye | | | | + + + +--------+ | Diabetic | Unknown | 03/17/17 | Active | | retinopathy | | | | + + + +--------+ Medications Current Home Medications + +------+-------+ + + + +--------+ | Medicati | Dose | Units | Route | Directio | Days/Qty | Instruct | Start | | on | | | | ns | | ions | Date | + +------+-------+ + + + +--------+ | Atorvast | 1 | TAB | ORAL | Daily | 30 | | | | atin | | | | | | | | | (Lipitor | | | | | | | | | ) 20 MG | | | | | | | | | TAB | | | | | | | | + +------+-------+ + + + +--------+ | Insulin | | | Subcutan | Three | | | | | Aspart | | | eously | Times a | | | | | (Novolog | | | | Day with | | | | | Flex | | | | Meals | | | | | Pen) 100 | | | | | | | | | UNIT/1 | | | | | | | | | ML | | | | | | | | | INSULN.P | | | | | | | | | EN | | | | | | | | + +------+-------+ + + + +--------+ | Insulin | [...] | | | | | | + +------+-------+ + + + +--------+ | Potassiu | 10 | MEQ | ORAL | | | 2-3 TABS | | | m | | | | | | EVERY | | | Chloride | | | | | | WEEK | | | 10 MEQ | | | | | | | | | CAPCR | | | | | | | | + +------+-------+ + + + +--------+ | Valsarta | 160 | MG | ORAL | Daily | | | | | n | | | | | | | | | (Ynes) | | | | | | | | | 160 MG | | | | | | | | | TABLET | | | | | | | | + +------+-------+ + + + +--------+ Past Home Medications [...] + + + + + | Biotin 1 Mg Capsule | | Unknown | Discontinued | | Capsule, 1 Mg Oral | | | | + [...] | + + + + + | Cholecalciferol | | Unknown | Discontinued | | (Vitamin D3) 1,000 | | | | | Unit Tablet Tablet, | | | | | 1,000 Unit | | | | + + + [...] | | | | | 75 Mg Tablet | | | | | Tablet, 75 Mg Oral | | | | + [...] Discontinued | | 80 Mg Tab Tab, 80 | | | | | Mg Oral [...] | + + + + + | [place], Disposable | | Unknown | Discontinued | [...] | Tabdaquan | | | | | Haw[place], 1 Tab | | | | | Sublingual | | | | + + + + + | Ondansetron (Zofran | Every 8 Hours as | 09/14/14 | Discontinued | | Odt) 8 Mg | Needed as needed | | | | Tab.rapdis | for NAUSEA | | | | Tab.rapdis, 1 Tab | | | | | [...] + + + | Pregabalin (Lyrica) | | Unknown | Discontinued | | [...] + + + | Discharge Date | 03/17/17 | + + + | Disposition | HOME | + + + | Condition at Discharge | Good | + + + | Instructions/Education Provided | Diabetic Retinopathy | | | Hyperglycemia | + + + | Forms Provided | ARCHITRAVE CONSENT | + + + | Prescriptions | See Medications Section | + + + | Referrals | Larry Galo MD - | + + + | Additional Instructions/Education | 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 Allergies, Adverse Reactions, Alerts + +---------+ + +--------+ + | Allergen | Type | Severity | Reaction | Status | Last Updated | + +---------+ + +--------+ + | hydrocodone | Allergy | Mild | HALLUCINATIO | Active | 03/16/17 | | bit | | | NS | | | + +---------+ + +--------+ + | lisinopril | Allergy | Unknown | | Active | 03/16/17 | + +---------+ + +--------+ + | morphine | Allergy | Mild | HALLUCINATIO | Active | 03/16/17 | | | | | N | | | + +---------+ + +--------+ + | ciprofloxaci | Allergy | Unknown | | Active | 03/16/17 | | n | | | | | | + +---------+ + +--------+ + Immunizations No Known History of Immunizations. Vital Signs + + + + | Vital Reading | Collection Date/Time | Result | + + + + | Blood Pressure | 03/17/17 0:28am | 135/83 | + + + + | Blood Pressure Source | 05/01/15 10:30am | Left Arm | + + + + | Temperature | 03/17/17 0:28am | 98.8 F | + + + + | Temperature Source | 03/16/17 10:13pm | Temporal | + + + + | Respiratory Rate | 03/17/17 0:28am | 14 | + + + + | Pulse Rate | 03/17/17 0:28am | 91 | + + + + | Bedside Pulse Oximetry | 03/17/17 0:28am | 95 | + + + + | Height | 03/16/17 10:13pm | 5 ft 1 in | + + + + | Height | 03/16/17 10:13pm | 154.94 cm | + + + + | Weight | 03/16/17 10:13pm | 175 lb | + + + + | Weight | 03/16/17 10:13pm | 79.38 kg | + + + + | Body Mass Index | 03/16/17 10:13pm | 33.1 kg/m2 | + + + + Results [...] + + + + | White | 4.75 | K/mm3 | | 4.00-11. | 03/16/17 | 03/16/17 | | | Blood | | | | 30 | 10:45pm | 11:03pm | | | Count | | | | | | | | + +--------+ +-------+ + + + + | Red | 3.39 | M/mm3 | L | 3.80-5.2 | 03/16/17 | 03/16/17 | | | Blood | | | | 0 | 10:45pm | 11:03pm | | | Count | | | | | | | | + +--------+ +-------+ + + + + | Hemoglob | 10.1 | g/dL | L | 11.5-16. | 03/16/17 | 03/16/17 | | | in | | | | 0 | 10:45pm | 11:03pm | | + +--------+ +-------+ + + + + | Hematocr | 30.2 | % | L | 33.0-51. | 03/16/17 | 03/16/17 | | | it | | | | 0 | 10:45pm | 11:03pm | | + +--------+ +-------+ + + + + | Mean | 89 | fL | | 80-100 | 03/16/17 | 03/16/17 | | | Corpuscu | | | | | 10:45pm | 11:03pm | | | lar | | | | | | | | | Volume | | | | | | | | + +--------+ +-------+ + + + + | Mean | 29.8 | pg | | 26.0-34. | 03/16/17 | 03/16/17 | | | Corpuscu | | | | 0 | 10:45pm | 11:03pm | | | lar | | | | | | | | | Hemoglob | | | | | | | | | in | | | | | | | | + +--------+ +-------+ + + + + | Mean | 33.4 | g/dL | | 31.5-36. | 03/16/17 | 03/16/17 | | | Corpuscu | | | | 5 | 10:45pm | 11:03pm | | | lar | | | | | | | | | Hemoglob | | | | | | | | | in | | | | | | | | | Concent | | | | | | | | + +--------+ +-------+ + + + + | RDW | 44.2 | fL | | 35.1-46. | 03/16/17 | 03/16/17 | | | Standard | | | | 3 | 10:45pm | 11:03pm | | | | | | | | | | | | Deviatio | | | | | | | | | n | | | | | | | | + +--------+ +-------+ + + + + | RDW | 13.6 | % | | 11.7-14. | 03/16/17 | 03/16/17 | | | Coeffici | | | | 2 | 10:45pm | 11:03pm | | | ent of | | | | | | | | | Variatio | | | | | | | | | n | | | | | | | | + +--------+ +-------+ + + + + | Platelet | 118 | K/mm3 | L | 150-400 | 03/16/17 | 03/16/17 | | | Count | | | | | 10:45pm | 11:03pm | | + +--------+ +-------+ + + + + | Mean | 12.0 | fL | | 9.1-12.4 | 03/16/17 | 03/16/17 | | | Platelet | | | | | 10:45pm | 11:03pm | | | Volume | | | | | | | | + +--------+ +-------+ + + + + | Differen | Auto | | | | 03/16/17 | 03/16/17 | | | tial | | | | | 10:45pm | 11:03pm | | | Method | | | | | | | | + +--------+ +-------+ + + + + | Neutroph | 55 | % | | 41-73 | 03/16/17 | 03/16/17 | | | ils (%) | | | | | 10:45pm | 11:03pm | | | (Auto) | | | | | | | | + +--------+ +-------+ + + + + | Lymphocy | 33 | % | | 21-46 | 03/16/17 | 03/16/17 | | | serge (%) | | | | | 10:45pm | 11:03pm | | | (Auto) | | | | | | | | + +--------+ +-------+ + + + + | Monocyte | 9 | % | | 4-13 | 03/16/17 | 03/16/17 | | | s (%) | | | | | 10:45pm | 11:03pm | | | (Auto) | | | | | | | | + +--------+ +-------+ + + + + | Eosinoph | 3 | % | | 0-6 | 17 | 17 | | | ils (%) | | | | | 10:45pm | 11:03pm | | | (Auto) | | | | | | | | + +--------+ +-------+ + + + + | Basophil | 0 | % | | 0-2 | 03/16/ | 03/16/17 | | | s (%) | | | | | 10:45pm | 11:03pm | | | (Auto) | | | | | | | | + +--------+ +-------+ + + + + | Immature | 1 | % | | 0-1 | 03/16/17 | 03/16/17 | | | | | | | | 10:45pm | 11:03pm | | | Granuloc | | | | | | | | | yte % | | | | | | | | | (Auto) | | | | | | | | + +--------+ +-------+ + + + + | Nucleate | 0.8 | /100 WBC | H | 0.0-0.2 | 03/16/17 | 03/16/17 | | | d Red | | | | | 10:45pm | 11:03pm | | | Blood | | | | | | | | | Cells % | | | | | | | | + +--------+ +-------+ + + + + | Absolute | 2.60 | K/mm3 | | 1.96-9.1 | 03/16/17 | 03/16/17 | | | | | | | 5 | 10:45pm | 11:03pm | | | Neutroph | | | | | | | | | ils | | | | | | | | | (auto) | | | | | | | | + +--------+ +-------+ + + + + | Absolute | 1.56 | K/mm3 | | 0.84-5.2 | 03/16/17 | 03/16/17 | | | | | | | 0 | 10:45pm | 11:03pm | | | Lymphocy | | | | | | | | | serge | | | | | | | | | (auto) | | | | | | | | + +--------+ +-------+ + + + + | Absolute | 0.43 | K/mm3 | | 0.16-1.4 | 03/16/17 | 03/16/17 | | | | | | | 7 | 10:45pm | 11:03pm | | | Monocyte | | | | | | | | | s (auto) | | | | | | | | + +--------+ +-------+ + + + + | Absolute | 0.12 | K/mm3 | | 0.00-0.6 | 03/16/17 | 03/16/17 | | | | | | | 8 | 10:45pm | 11:03pm | | | Eosinoph | | | | | | | | | ils | | | | | | | | | (auto) | | | | | | | | + +--------+ +-------+ + + + + | Absolute | 0.01 | K/mm3 | | 0.00-0.2 | 03/16/17 | 03/16/17 | | | | | | | 3 | 10:45pm | 11:03pm | | | Basophil | | | | | | | | | s (auto) | | | | | | | | + +--------+ +-------+ + + + + | Absolute | 0.03 | K/mm3 | | 0.00-0.1 | 03/16/17 | 03/16/17 | | | | | | | 0 | 10:45pm | 11:03pm | | | Immature | | | | | | | | | | | | | | | | | | Granuloc | | | | | | | | | yte | | | | | | | | | (auto | | | | | | | | + +--------+ +-------+ + + + + | Nucleate | 0.04 | K/mm3 | H | 0.00-0.0 | 03/16/17 | 03/16/17 | | | d RBC | | | | 2 | 10:45pm | 11:03pm | | | Absolute | | | | | | | | | Count | | | | | | | | | (auto) | | | | | | | | + +--------+ +-------+ + + + + | Prothrom | 9.9 | Sec | | 9.7-11.5 | 03/16/17 | 03/16/17 | | | bin Time | | | | | 10:45pm | 11:09pm | | + +--------+ +-------+ + + + + | INR | 0.95 | | | | 03/16/17 | 03/16/17 | RECOMMEN | | Internat | | | | | 10:45pm | 11:09pm | DED | | ional | | | | | | | RANGES | | Normaliz | | | | | | | FOR | | ed Ratio | | | | | | | PROTIME | | | | | | | | | INR: | | | | | | | | | 2.0 - | | | | | | | | | 3.0 for | | | | | | | | | most | | | | | | | | | medical | | | | | | | | | and | | | | | | | | | surgical | | | | | | | | | | | | | | | | | | thromboe | | | | | | | | | mbolic | | | | | | | | | states. | | | | | | | | | 2.5 - | | | | | | | | | 3.5 for | | | | | | | | | artifici | | | | | | | | | al heart | | | | | | | | | valves | | | | | | | | | and | | | | | | | | | recurren | | | | | | | | | t | | | | | | | | | embolism | | | | | | | | | . | + +--------+ +-------+ + + + + | Sodium | 142 | mmol/L | | 136-145 | 03/16/17 | 03/16/17 | | | Level | | | | | 10:45pm | 11:18pm | | + +--------+ +-------+ + + + + | Potassiu | 3.9 | mmol/L | | 3.5-5.5 | 03/16/17 | 03/16/17 | 1+ | | m Level | | | | | 10:45pm | 11:18pm | hemolysi | | | | | | | | | s:Subopt | | | | | | | | | imal | | | | | | | | | specimen | | | | | | | | | due to | | | | | | | | | the | | | | | | | | | presence | | | | | | | | | of | | | | | | | | | 1+hemoly | | | | | | | | | sis. | | | | | | | | | Results | | | | | | | | | may be | | | | | | | | | falsely | | | | | | | | | increase | | | | | | | | | d. | + +--------+ +-------+ + + + + | Chloride | 106 | mmol/L | | 98-108 | 03/16/17 | 03/16/17 | | | Level | | | | | 10:45pm | 11:18pm | | + +--------+ +-------+ + + + + | Carbon | 27 | mmol/L | | 21-32 | 03/16/17 | 03/16/17 | | | Dioxide | | | | | 10:45pm | 11:18pm | | | Level | | | | | | | | + +--------+ +-------+ + + + + | Anion | 9 | mmol/L | | 6-16 | 03/16/17 | 03/16/17 | | | Gap | | | | | 10:45pm | 11:18pm | | + +--------+ +-------+ + + + + | Glucose | 217 | mg/dL | H | 70-99 | 03/16/17 | 03/16/17 | | | Level | | | | | 10:45pm | 11:18pm | | + +--------+ +-------+ + + + + | Blood | 35 | mg/dL | H | 8-24 | 03/16/17 | 03/16/17 | | | Urea | | | | | 10:45pm | 11:18pm | | | Nitrogen | | | | | | | | + +--------+ +-------+ + + + + | Creatini | 2.17 | mg/dL | H | 0.40-1.0 | 03/16/17 | 03/16/17 | | | ne | | | | 0 | 10:45pm | 11:18pm | | + +--------+ +-------+ + + + + | BUN/Crea | 16.1 | % | | 12.0-20. | 03/16/17 | 03/16/17 | | | tinine | | | | 0 | 10:45pm | 11:18pm | | | Ratio | | | | | | | | + +--------+ +-------+ + + + + | Glomerul | 24 | | L | 60- | 03/16/17 | 03/16/17 | Non-Afri | | ar | | | | | 10:45pm | 11:18pm | can | | Filtrati | | | | | | | [place] | | on Rate | | | | | | | GFR | | Calc | | | | | | | CalcFor | | | | | | | | | | | | | | | | | | [place] | | | | | | | [...] + + + + | Calcium | 8.2 | mg/dL | L | 8.5-10.1 | 03/16/17 | 03/16/17 | | | Level | | | | | 10:45pm | 11:18pm | | + +--------+ +-------+ + + + + | Total | 6.5 | g/dL | | 6.4-8.2 | 03/16/17 | 03/16/17 | | | Protein | | | | | 10:45pm | 11:18pm | | + +--------+ +-------+ + + + + | Albumin | 3.2 | g/dL | L | 3.4-5.0 | 03/16/17 | 03/16/17 | | | | | | | | 10:45pm | 11:18pm | | + +--------+ +-------+ + + + + | Globulin | 3.3 | g/dL | | 2.2-4.0 | 03/16/17 | 03/16/17 | | | | | | | | 10:45pm | 11:18pm | | + +--------+ +-------+ + + + + | Albumin/ | 1.0 | | | 0.8-1.8 | 03/16/17 | 03/16/17 | | | Globulin | | | | | 10:45pm | 11:18pm | | | Ratio | | | | | | | | + +--------+ +-------+ + + + + | Total | 0.2 | mg/dL | | 0.1-1.0 | 03/16/17 | 03/16/17 | | | Bilirubi | | | | | 10:45pm | 11:18pm | | | n | | | | | | | | + +--------+ +-------+ + + + + | Alkaline | 184 | U/L | H | 50-136 | 03/16/17 | 03/16/17 | | | | | | | | 10:45pm | 11:18pm | | | Phosphat | | | | | | | | | ase | | | | | | | | + +--------+ +-------+ + + + + | Aspartat | 47 | U/L | H | 12-37 | 03/16/17 | 03/16/17 | 1+ | | e Amino | | | | | 10:45pm | 11:18pm | hemolysi | | Transf | | | | | | | s:Subopt | | (AST/SGO | | | | | | | imal | | T) | | | | | | | specimen | | | | | | | | | due to | | | | | | | | | the | | | | | | | | | presence | | | | | | | | | of | | | | | | | | | 1+hemoly | | | | | | | | | sis. | | | | | | | | | Results | | | | | | | | | may be | | | | | | | | | falsely | | | | | | | | | increase | | | | | | | | | d. | + +--------+ +-------+ + + + + | Alanine | 55 | U/L | | 12-78 | 03/16/17 | 03/16/17 | | | Aminotra | | | | | 10:45pm | 11:18pm | | | nsferase | | | [...] + + + + | Departed | [facility] | 03/16/17 | 03/17/17 0:29am | Dhaval Flores | | Emergency | [facility] | 10:09pm | | D DO | + + + + + + + + + | Encounter Diagnosis | Onset Date | + + + | Chronic renal disease | | + + + | Hyperglycemia | | + + + | Blurred vision, right eye | | + + + | Diabetic retinopathy | | + + +"
--- OUTSIDE RECORDS SUMMARY | ~2019-03-25 | XMS ---
Demographics + + + | Address | [address] [place] [address] | | | [place] [address] | + + + | Home Phone | | + + + | Preferred Language | Unknown | + + + | Marital Status | D | + + + | Christianity Affiliation | Unknown | + + + | Race | Unspecified | + + + | Ethnic Group | or | + + + Author + + + | Author | [facility] | + + + | Organization | [facility] | + + + | Address | [address] [facility] [place] | | | [place], [place] [address] | + + + | Phone | Unavailable | + + + Care Team Providers + + + + | Care Carpenter Repair Name | Role | Phone | + + + + Unavailable | Unavailable | + + + + Reason for Visit + + + | Reason For Visit Description | Start Date | + + + | General Notes | | + + + | | HPI Chief Complaint: Diabetic Foot Exam | | | Referring Provider: Ankur GORDON | | | HgbA1c: 7.8% Patient is Diabetic Current | | | Shoe Gear: [employer] Susanna is here | | | with her son today for a diabetic foot | | | check. Her last A1C was 8.8 on 05/28/18. She | | | says she is doing well. She saw Dr. Galo | | | yesterday and her kidneys are improving. | | | Her glucose has been between 100-200. She | | | checks this 3 times daily. The numbness | | | does not bother her when she takes the | | | Lyrica. They state that they are moving to | | | [place], [place] but are not sure when. It | | | will be as soon as they are able to sell | | | her house. Current Medications | | | BASAGLAR 100UNIT INJ (INSULIN GLARGINE) | | | INJECT 68 UNITS SUBCUTANEOUSLY IN THE | | | MORNING(34 UNITS ON EACH SIDE) IRBESARTAN | | | 300MG TAB (IRBESARTAN) TAKE 1 TABLET | | | BY MOUTH ONCE DAILY LIPITOR 20 MG ORAL | | | TABLET (ATORVASTATIN CALCIUM) take 1 | | | tablet by mouth daily in the evening | | | PLAVIX 75 MG ORAL TABLET (CLOPIDOGREL | | | BISULFATE) 1 tab by mouth one time per day | | | in the evening OMEPRAZOLE 40 MG ORAL | | | CAPSULE DELAYED RELEASE (OMEPRAZOLE) Take | | | one by mouth one time per day 30-60 | | | minutes before breakfast as needed | | | POTASSIUM CHLORIDE ER 10 MEQ ORAL CAPSULE | | | EXTENDED RELEASE (POTASSIUM CHLORIDE) Take | | | one cap daily in the AM; Route: ORAL | | | MECLIZINE HCL 25 MG ORAL TABLET (MECLIZINE | | | HCL) One tab by mouth three times per | | | day; Route: ORAL HUMALOG KWIKPEN 100 | | | UNIT/ML SUBCUTANEOUS SOLUTION PEN-INJECTOR | | | (INSULIN LISPRO) 12 Units before meals | | | SS:150-175:2U,176-200:4U, 201-250: 6U, | | | 251-300: 8U, If greater than 300 please | | | call. Max daily 70 units; Route: | | | SUBCUTANEOUS GLIPIZIDE XL 2.5 MG ORAL | | | TABLET EXTENDED RELEASE 24 HOUR | | | (GLIPIZIDE) Take 1 tablet p.o. q.a.m.; | | | Route: ORAL PROMETHAZINE HCL 25 MG ORAL | | | TABLET (PROMETHAZINE HCL) Take one tablet | | | by mouth every 4 hours as needed for | | | nausea and vomiting; Route: ORAL LYRICA | | | 100 MG CAPS (PREGABALIN) TAKE 1 CAPSULE BY | | | MOUTH THREE TIMES DAILY FOR NEUROPATHY | | | MIRALAX ORAL POWDER (POLYETHYLENE GLYCOL | | | 3350) 17 gm daily stirred into 4-8 ounces | | | of water, juice or other liquid; Route: | | | ORAL BD INSULIN SYRINGE ULTRAFINE 29G X | | | 1/2" 0.5 ML (INSULIN SYRINGE-NEEDLE U-100) | | | Use to inject insulin 5 times per day; | | | Route: IN VITRO ONETOUCH ULTRA BLUE IN | | | VITRO STRIP (GLUCOSE BLOOD) Use strip to | | | checl glucose four times daily. Dx: 11.65 | | | SMITH: 89 years; Route: IN VITRO BD PEN | | | NEEDLE SHORT U/F 31G X 8 MM (INSULIN PEN | | | NEEDLE) USE PEN NEEDLE(S) 4 TIMES DAILY | | | Dx Code E11.40 RELION INSULIN SYRINGE 31G | | | X 5/16" 0.5 ML (INSULIN SYRINGE-NEEDLE | | | U-100) Use to inject insulin 5 times daily | | | Dx Code E11.40 ONETOUCH VERIO W/DEVICE | | | KIT (BLOOD GLUCOSE MONITORING SUPPL) Use | | | to test glucose four times daily Dx 11.65, | | | SMITH: 89 years VITAMIN D3 1000 UNIT TABS | | | (CHOLECALCIFEROL) TAKE 1 TABLET BY MOUTH | | | ONCE DAILY IN THE MORNING FUROSEMIDE 80 | | | MG TABS (FUROSEMIDE) TAKE 1 TABLET BY | | | MOUTH ONCE DAILY IN THE MORNING LINZESS | | | 145 MCG ORAL CAPSULE (LINACLOTIDE) Take | | | one tablet daily as needed for | | | constipation.; Route: ORAL EQ STOOL | | | SOFTENER 100 MG CAPS (DOCUSATE SODIUM) | | | TAKE 1 CAPSULE BY MOUTH TWICE DAILY FOR | | | SOFT STOOLS Current Allergies VICODIN | | | (Critical) MORPHINE (Critical) * CIPRO | | | IV (Critical) * MECLIZINE (Moderate) | | | LISINOPRIL (Moderate) | | | .......................................... | | | .........................Ambrose Peña [employer] | | | October 09, 2018 10:02 AM Medical | | | History Type 2 [...] Number of Children: 7 | | | [employer]: [employer] | | | Language: Lithuanian Use of Lithuanian | | | Language: Fluent Nurse Intake | | | Height: 60in. Weight: 191 lbs. BMI: | | | 37.44 Wt ch Nutrition and Physical | | | Activity Counseling - Nutrition BMI | | | Recommendation: Nutrition Counseling BP | | | #1: 122/66 Position:sitting Site:left arm | | | Vitals entered by: Ambrose Peña [facility] on | | | October 09, 2018 10:03 AM Review of | | | Symptoms None marked. All other systems | | | are reviewed and are negative. Risk | | | Factors Tobacco Use: never smoker | | | Alcohol Use:never Drug Use: none | | | Comments: Pt denies all drug use. | | | .......................................... | | | .........................Anupama Gray LPN | | | August 26, 2018 3:30 PM Other Risk | | | Factors Caffeine use (drinks/day): 1 cup | | | coffee/soda a week Exercise (times/week): | | | 0 Seatbelt use (%): 100 Sun exposure: | | | occasionally HX of MRSA: No HIV high | | | risk behavior: No Physical Exam | | | General: Well developed, well nourished, | | | in no apparent distress Pysch: Alert and | | | cooperative, normal mood and affect, | | | normal attention span and concentration | | | Cardiovascular: Dorsalis pedis and | | | posterior tibial arteries are palpable and | | | normal. Capillary filling time is less | | | than three seconds. Temperature is warm | | | to the touch, and is normal to the foot | | | and ankle. There is normal hair growth to | | | the digits and dorsal foot. Neurologic: | | | She felt 6/10 via SWMF to the RIGHT foot. | | | She felt 10/10 via SWMF to the LEFT foot. | | | Decreased sensation of dorsum of feet | | | pinprick, decreased sensation to light | | | touch bilaterally. MSK: There are no | | | signs of infection. There is no erythema | | | or cellulitis BILATERALLY. There is no | | | ecchymosis BILATERALLY. There is 1+ | | | pitting edema BILATERALLY to the pretibial | | | area. Arthritis to the RIGHT STJ. Hallux | | | valgus deformity noted to the RIGHT foot. | | | Skin: Skin is xerotic but intact with no | | | unusual lesions or changes. Toe Nails | | | Patient nails appear with discoloration, | | | thickening, thick/yellow/mycotic, | | | subungal debris, elongated bilaterally on | | | digits 1-5. Fungal changes noted | | | BILATERALLY. Diabetic shoe insole | | | qualifying conditions: Peripheral | | | neuropathy with eveidence of callus | | | formation of either foot, Poor circulation | | | in either foot, Foot deformity | | | Assessment/Plan Diagnosis: DIABETES | | | MELLITUS- TYPE II 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- UNCONTROLLED (ICD-250.62) | | | (QQK67-Y66.40) Related Problem: XEROSIS- | | | SKIN OF FOOT (ICD-706.8) (RTC00-M53.3) | | | The patient will be weightbearing The | | | patient was told to ice their affected | | | foot for 20 minutes at least twice daily. | | | The patient was told to elevate their | | | affected foot while at rest. The | | | patient was told to wear good, supportive | | | shoes. The patient was told to avoid | | | flip-flop sandals, high heels, and other | | | non-supportive shoes at all times while | | | ambulating. The patient was told to | | | avoid barefoot walking. The patient was | | | also told to maintain optimal blood | | | glucose control. The patient was told to | | | check their feet daily. If that cannot be | | | done, they should have someone else check | | | their feet daily for any abnormalities, | | | sores or infections. We have discussed | | | non-surgical options such as lotion daily, | | | wear supportive shoes, avoid barefoot | | | walking, control diabetes, check feet | | | daily, vitamin D. She says she is | | | moving to [place], [place]. I have given her | | | the name of a provider to see once she | | | gets there. Dr. Pedro Kraus. I have told | | | her to make sure and sign consent to send | | | medical records before she leaves so we | | | can send them once she is established | | | there. She expressed understanding. | | | She will follow up in 3 months for | | | re-evaluation. No radiographs needed. | | | Meaningful Use Med List: (Reconciled) | | | Sood Fall Scale 1. History of | | | falling; immediate or within 3 months. No | | | 2. Secondary diagnosis. No 4. | | | IV/Heparin Lock. No 6. Mental status. | | | Oriented to own ability MFS Score: 0 | | | Risk Level: No Risk | | | .......................................... | | | ............................Alicia | | | Mikel DELANEY is transcribing for Hector | | | ENA Armendariz. | + + + Assessments No information available. Chief Complaint + + + | Chief Complaint Description | Start Date | + + + | Diabetic Foot Exam | | + + + History of Past Illness No information available.
--- OUTSIDE RECORDS SUMMARY | ~2019-03-25 | XMS | Clinical Summary ---
Demographics + + + | Address | [address] | | | [place] [address] | + + + | Home Phone | | + + + | Preferred Language | Unknown | + + + | Marital Status | D | + + + | Uatsdin Affiliation | Unknown | + + + | Race | Unspecified | + + + | Ethnic Group | or | + + + Author + + + | Author | [facility] | + + + | Organization | [facility] | + + + | Address | [address] | | | [place], [place] [address] | + + + | Phone | Unavailable | + + + Care Team Providers + +------+ + | Care Director Of District Office Name | Role | Phone | + [...] | | tion | | +---------+---------+---------+---------+---------+---------+---------+---------+---------+ | OSTEOAR | [phone] | | Active | | Edna | | Osteoar | | | THRITIS | | | | /18 | Hope | | thritis | | | , KNEE, | (SNOMED | | | | CCMA | | of | | | RIGHT | CT) | | | | | | knee | | +---------+---------+---------+---------+---------+---------+---------+---------+---------+ | CONSTIP | [id number] | | Active | | [place] | | Constip | | | ATION | 8 | /13 | | /13 | [place] | | ation | | | | (SNOMED | | | | DNP CARPET INSTALLER HELPER | | | | | | CT) | | | | | | | | +---------+---------+---------+---------+---------+---------+---------+---------+---------+ | TYPE 2 | E11.21 | | Active | | [place] | | Type 2 | | | DIABETE | (ICD-10 | /19 | | /19 | Ankur | | diabete | | | S | -CM) | | | | DNP CARPET INSTALLER HELPER | | s | | | MELLITU [...] athy | | +---------+---------+---------+---------+---------+---------+---------+---------+---------+ | DIABETE | [id number] | | Inactiv | | [place]rose | | Type 2 | | | S | 6 | / | e | /08 | Ankur | | diabete | | | MELLITU | (SNOMED | | | | DNP CARPET INSTALLER HELPER | | s | | | S, TYPE | CT) | | | | | | mellitu | | | II, ON | | | | | | | s | | | | | | | | | | | | | INSULIN | | | | | | | | | +---------+---------+---------+---------+---------+---------+---------+---------+---------+ | DEHYDRA | [id number] | | Resolve | | [place] | | Dehydra | | | TION | 6 | /08 | d | /08 | [place] | | tion | | | | (SNOMED | | | | DNP CARPET INSTALLER HELPER | | | | | | CT) | | | | | | | | +---------+---------+---------+---------+---------+---------+---------+---------+---------+ | DIZZINE | [id number] | | Inactiv | | [place] | | Dizzine | | | SS | 03 | /08 | e | /08 | [place] | | ss | | | | (SNOMED | | | | DNP CARPET INSTALLER HELPER | | | | | | CT) | | | | | | | | +---------+---------+---------+---------+---------+---------+---------+---------+---------+ | ANEMIA | [id number] | | Inactiv | | [place] | | Anemia | | | | 00 | /10 | e | /10 | Ank[place] | | | | | | (SNOMED | | | | DNP CARPET INSTALLER HELPER | | | | | | CT) | | | | | | | | +---------+---------+---------+---------+---------+---------+---------+---------+---------+ | CONSTIP | [id number] | | Inactiv | | [place]rose | | Constip | | | ATION | 8 | /13 | e | /13 | Ank[place] | | ation | | | | (SNOMED | | | | DNP CARPET INSTALLER HELPER | | | | | | CT) | | | | | | | | +---------+---------+---------+---------+---------+---------+---------+---------+---------+ | SYNCOPE | [id number] | | Resolve | | [place] | | Syncope | | | | 07 | / | d | /10 | [place] | | | | | | (SNOMED | | | | DNP CARPET INSTALLER HELPER | | | | | | CT) | | | | | | | | +---------+---------+---------+---------+---------+---------+---------+---------+---------+ | DYSPHAG | R13.10 | | Resolve | | [place] | | Dysphag | | | IA | (ICD-10 | | d | / | [place] | | ia, | | | UNSPECI | -CM) | | | | DNP CARPET INSTALLER HELPER | | unspeci | | | FIED | | | | | | | fied | | +---------+---------+---------+---------+---------+---------+---------+---------+---------+ | PARESTH | [id number] | | Inactiv | | [place]rose | | Paresth | | | ESIA, | 04 | | e | | [place] | | esia of | | | HANDS | (SNOMED | | | | DNP CARPET INSTALLER HELPER | | hand | | | | CT) | | | | | | | | +---------+---------+---------+---------+---------+---------+---------+---------+---------+ | DIABETI | [id number] | | Inactiv | | [place] | | Diabeti | | | C | 06 | /25 | e | / | [place] | | c | | | PERIPHE | (SNOMED | | | | DNP CARPET INSTALLER HELPER | | periphe | | | RAL [...] | -CM) | | | | DNP CARPET INSTALLER HELPER | | unspeci | | | FIED | | | | | | | fied | | +---------+---------+---------+---------+---------+---------+---------+---------+---------+ | VAGINIT | [id number] | | Resolve | | [place] | | Vaginit | | | IS | 1 | /31 | d | /31 | [place] | | is | | | | (SNOMED | | | | DNP CARPET INSTALLER HELPER | | | | | | CT) | | | | | | | | +---------+---------+---------+---------+---------+---------+---------+---------+---------+ | DYSURIA | [id number] | | Resolve | | [place] | | Dysuria | | | | 1 | / | d | | [place] | | | | | | (SNOMED | | | | DNP CARPET INSTALLER HELPER | | | | | | CT) | | | | | | | | +---------+---------+---------+---------+---------+---------+---------+---------+---------+ | EDEMA | [id number] | | Inactiv | | [place] | | Edema | | | | 08 | / | e | | [place] | | | | | | (SNOMED | | | | DNP CARPET INSTALLER HELPER | | | | | | CT) | | | | | | | | +---------+---------+---------+---------+---------+---------+---------+---------+---------+ | RENAL | [id number] | | Inactiv | | [place] | | Acute | | | FAILURE | 1 | / | e | / | [place] | | renal | | | , ACUTE | (SNOMED | | | | DNP CARPET INSTALLER HELPER | | failure | | | | CT) | | | | | | | | | | | | | | | | syndrom | | | | | | | | | | e | | +---------+---------+---------+---------+---------+---------+---------+---------+---------+ | DIABETE | [id number] | | Inactiv | | [place] | | Periphe | | | S | 02 | | e | | [place] | | ral | | | MELLITU | (SNOMED | | | | DNP CARPET INSTALLER HELPER | | circula | | | S, [...] ROPATHY | (ICD-10 | | e | | Ankur | | diabete | | | - | -CM) | | | | DNP CARPET INSTALLER HELPER | | s | | | DIABETI [...] ropathy | | +---------+---------+---------+---------+---------+---------+---------+---------+---------+ | LOCALIZ | [id number] | | Resolve | | [place] | | Disorde | | | ED | 09 | | d | | [place] | | r of | | | SWELLIN | (SNOMED | | | | DNP CARPET INSTALLER HELPER | | forearm | | | G [...] | | | +---------+---------+---------+---------+---------+---------+---------+---------+---------+ | UTI | [id number] | | Resolve | | [place] | | Urinary | | | | 5 | /13 | d | /13 | [place] | | tract | | | | (SNOMED | | | | DNP CARPET INSTALLER HELPER | | infecti | | | | [...] | -CM) | | | | DNP CARPET INSTALLER HELPER | | s | | | MELLITU [...] athy | | +---------+---------+---------+---------+---------+---------+---------+---------+---------+ | DEMENTI | [id number] | | Inactiv | | [place] | | Procedu | | | A | | | e | | [place] | | re | | | SCREENI | (SNOMED | | | | DNP CARPET INSTALLER HELPER | | carried | | | NG | CT) | | | | | | out on | | | | | | | | | | | | | | | | | | | | subject | | +---------+---------+---------+---------+---------+---------+---------+---------+---------+ | CHANGE | [id number] | | Inactiv | | [place] | | Altered | | | IN | 9 | /13 | e | /13 | [place] | | bowel | | | BOWEL | (SNOMED | | | | DNP CARPET INSTALLER HELPER | | functio | | | HABITS | CT) | | | | | | n | | +---------+---------+---------+---------+---------+---------+---------+---------+---------+ | MILD | [id number] | | Inactiv | | [place] | | Mild | | | COGNITI | | | e | / | Ankur | | cogniti | | | VE | (SNOMED | | | | DNP CARPET INSTALLER HELPER | | ve | | | IMPAIRM | CT) | | | | | | disorde | | | ENT | | | | | | | r | | +---------+---------+---------+---------+---------+---------+---------+---------+---------+ | DIABETE | [id number] | | Inactiv | | [place]rose | | Diabeti | | | S | 861180 | /11 | e | / | [place] | | c | | | MELLITU | (SNOMED | | | | DNP CARPET INSTALLER HELPER | | periphe | | | S, [...] fied | | +---------+---------+---------+---------+---------+---------+---------+---------+---------+ | DIABETE | [id number] | | Active | | David W | | Diabeti | | | S | 823982 | /15 | | /15 | Theen [...] s | | +---------+---------+---------+---------+---------+---------+---------+---------+---------+ | MUSCLE | [id number] | | Active | | Christen | | Muscle | | | PAIN | 1 | | | /07 | J. | | pain | | | | (SNOMED | | | | [place] | | | | | | CT) | | | | ta CARPET INSTALLER HELPER | | | | +---------+---------+---------+---------+---------+---------+---------+---------+---------+ | DIABETE | [id number] | | Removed | | David W | | Diabeti | | | S | 646273 | /11 | | /12 | Theen [...] s | | +---------+---------+---------+---------+---------+---------+---------+---------+---------+ | MILD | [id number] | | Removed | | Maulik | [...] uterus | | +---------+---------+---------+---------+---------+---------+---------+---------+---------+ | COLONIC | 5566114 | | Active | | Emeka | [...] | | | +---------+---------+---------+---------+---------+---------+---------+---------+---------+ | CONSTIP | [id number] | | Removed | | Emeka | | Constip | | | ATION | 8 | | | | Petre | | ation | | | | (SNOMED | | | | MD | | | | | | CT) | | | | | | | | +---------+---------+---------+---------+---------+---------+---------+---------+---------+ | CHANGE | 5806217 | | Removed | | Emeka | | Altered | | | IN | 9 | /13 | | /13 | Petre | | bowel | | | BOWEL | (SNOMED | | | | MD | | functio | | | HABITS | CT) | | | | | | n | | +---------+---------+---------+---------+---------+---------+---------+---------+---------+ | DECREAS | [id number] | | Active | | Emeka | | Decreas | | | ED | 6 | | | /13 | Petre | | e in | | | APPETIT | (SNOMED | | | | MD | | appetit | | | E | CT) | | | | | | e | | +---------+---------+---------+---------+---------+---------+---------+---------+---------+ | WEIGHT | 3468936 | | Active | | Emeka | | Abnorma | | | LOSS | 01 | | | | Petre | | l | | | ABNORMA | (SNOMED | | | | MD | | weight | | | L | CT) | | | | | | loss | | +---------+---------+---------+---------+---------+---------+---------+---------+---------+ | NAUSEA | 5624626 | | Active | | Emeka | | Nausea | | | ALONE | | | | /13 | Petre | | | | | | (SNOMED | | | | MD | | | | | | CT) | | | | | | | | +---------+---------+---------+---------+---------+---------+---------+---------+---------+ | RECTAL | 4409207 | | Active | | Emeka | | Rectal | | | BLEEDIN | 2 | /13 | | /13 | Petre | | hemorrh | | | G | (SNOMED | | | | MD | | age | | | | CT) | | | | | | | | +---------+---------+---------+---------+---------+---------+---------+---------+---------+ | DEMENTI | 5781505 | | Active | | Christen | | Dementi | | | A | 6 | /10 | | /10 | J. | | a | | | WITHOUT | (SNOMED | | | | [place] | | | | | | CT) | | | | ta CARPET INSTALLER HELPER | | | | | BEHAVIO | | | | | | | | | | RAL | | | | | | | | | | DISTURB | | | | | | | | | | ANCE | | | | | | | | | +---------+---------+---------+---------+---------+---------+---------+---------+---------+ | CHRONIC | 9883372 | | Active | | Christen | | Chronic | | | | 03 | /10 | | /10 | J. | | | | | PROGRES | (SNOMED | | | | [place] | | progres | | | SIVE | CT) | | | | ta CARPET INSTALLER HELPER | | sive | | | RENAL | | | | | | | renal | | | FAILURE | | | | | | | failure | | +---------+---------+---------+---------+---------+---------+---------+---------+---------+ | ANEMIA | 4954958 | | Removed | | Hcristen | | Anemia | | | | 00 | /10 | | /10 | J. | | | | | | (SNOMED | | | | [place] | | | | | | CT) | | | | ta CARPET INSTALLER HELPER | | | | +---------+---------+---------+---------+---------+---------+---------+---------+---------+ | DEMENTI | 5476190 | | Removed | | Christen | | Procedu | | | A | | / | | | J. | | re | | | SCREENI | (SNOMED | | | | [place] | | carried | | | NG | CT) | | | | ta CARPET INSTALLER HELPER | | out on | | | | | | | | | | | | | | | | | | | | subject | | +---------+---------+---------+---------+---------+---------+---------+---------+---------+ | FALL | 5535044 | | Active | | Christen | | At risk | | | RISK | | | | | J. | | for | | | | (SNOMED | | | | [place] | | falls | | | | CT) | | | | ta CARPET INSTALLER HELPER | | | | +---------+---------+---------+---------+---------+---------+---------+---------+---------+ | DIABETE | 4502476 | | Resolve | | Christen | | Diabeti | | | S | 165919 | /14 | d | / | J. | | c | | | MELLITU | (SNOMED | | | | [place] | | periphe | | | S, TYPE | CT) | | | | ta CARPET INSTALLER HELPER | | ral | | | II [...] s | | +---------+---------+---------+---------+---------+---------+---------+---------+---------+ | CORNS | [id number] | | Inactiv | | Kali | | Corns | | | AND | 00 | | e | | Palacio | | and | | | CALLOSI | (SNOMED | | | | DPM | | callus | | | TIES | CT) | | | | | | | | +---------+---------+---------+---------+---------+---------+---------+---------+---------+ | HAMMER | 6805330 | | Active | | Kali | [...] | | | +---------+---------+---------+---------+---------+---------+---------+---------+---------+ | HALLUX | 8877894 | | Active | | Kali | [...] | ROPATHY | (ICD-10 | | | / | Palacio | | diabete [...] ropathy | | +---------+---------+---------+---------+---------+---------+---------+---------+---------+ | DIABETE | [id number] | | Removed | | Kali | | Periphe | | | S | | | | | Hakeem | | ral | | | MELLITU [...] s | | +---------+---------+---------+---------+---------+---------+---------+---------+---------+ | ONYCHOM | 5920844 | | Active | | Kali | | Onychom | | | YCOSIS | | | | | Hakeem | | ycosis | | | | (SNOMED | | | | DPM | | | | | | CT) | | | | | | | | +---------+---------+---------+---------+---------+---------+---------+---------+---------+ | HEARTBU | 5956107 | | Active | | Tiesha | | Heartbu | | | RN | 0 | /19 | | /19 | | | rn | | | | (SNOMED | | | | Kihei | | | | | | CT) | | | | MD | | | | +---------+---------+---------+---------+---------+---------+---------+---------+---------+ | TYPE 2 | 6697514 | | Active | | Tiesha | | Disorde | | | DIABETE | 03 | / | | | | | r due | | | S | (SNOMED | | | | Kihei | | to type | | | [...] S | -CM) | | | | Kihei | | s | | | MELLITU [...] athy | | +---------+---------+---------+---------+---------+---------+---------+---------+---------+ | UTI | 1702278 | | Removed | | Pako | | Urinary | | | | 5 | /13 | | /13 | Middlek | | tract | | | | (SNOMED | | | | auff | | infecti | | | | CT) | | | | CARPET INSTALLER HELPER | | ous | | | | | | | | | | disease | | +---------+---------+---------+---------+---------+---------+---------+---------+---------+ | LOCALIZ | 1698908 | | Removed | | D'Elena | | Disorde | | | ED | 09 | | | /30 | Canales | | [...] | | | +---------+---------+---------+---------+---------+---------+---------+---------+---------+ | LIPOMA | 4000864 | | Active | | Lauranc | | Lipoma | | | | 2 | /14 | | /14 | e W | | (clinic | | | | (SNOMED | | | | Lila | | al) | | | | CT) | | | | MD | | | | +---------+---------+---------+---------+---------+---------+---------+---------+---------+ | VITAMIN | 9557787 | | Active | | David Paez | | Vitamin | | | D | 6 | /14 | | /15 | Theen | | D | | | DEFICIE | (SNOMED | | | | MD FACE | | deficie | | | NCY | CT) | | | | FACP | | ncy | | +---------+---------+---------+---------+---------+---------+---------+---------+---------+ | OBESITY | 4943460 | | Active | | David Paez | | Obesity | | | , BMI | 01 | /14 | | /15 | Theen | | | | | 35-39.9 | (SNOMED | | | | MD FACE | | | | | , ADULT | CT) | | | | FACP | | | | +---------+---------+---------+---------+---------+---------+---------+---------+---------+ | DIABETE | 0757984 | | Removed | | David W | | Diabeti | | | S | 756674 | /14 | | /15 | Theen [...] s | | +---------+---------+---------+---------+---------+---------+---------+---------+---------+ | HALLUX | 1748074 | | Inactiv | | Kali | | Acquire | | | VALGUS, | 1 | / | e | / | Hakeem | | d | | | | (SNOMED | | | | DPM | | hallux | | | ACQUIRE | CT) | | | | | | valgus | | | D | | | | | | | | | +---------+---------+---------+---------+---------+---------+---------+---------+---------+ | HAMMER | 7547306 | | Inactiv | | Kali | [...] | | | +---------+---------+---------+---------+---------+---------+---------+---------+---------+ | ONYCHOM | 0565801 | | Inactiv | | Kali | | Onychom | | | YCOSIS | | e | | Palacio | | ycosis | | | | (SNOMED | | | | DPM | | | | | | CT) | | | | | | | | +---------+---------+---------+---------+---------+---------+---------+---------+---------+ | 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 | | Kali | | Type 2 | | | ROPATHY | (ICD- | e | / | Palacio | [...] ropathy | | +---------+---------+---------+---------+---------+---------+---------+---------+---------+ | DIABETE | 7609672 | | Inactiv | | Kali | [...] s | | +---------+---------+---------+---------+---------+---------+---------+---------+---------+ | SCREENI | 0393089 | | Resolve | 2015/12 | Lauranc | | Depress | | | NG FOR | 06 | /10 | d | /10 | e W | | ion | | | DEPRESS | (SNOMED | | | | Lila | | screeni | | | ION | CT) | | | | MD | | ng | | +---------+---------+---------+---------+---------+---------+---------+---------+---------+ | SCREENI | 9728274 | | Resolve | | Lauranc | [...] | | | +---------+---------+---------+---------+---------+---------+---------+---------+---------+ | SCREENI | 4410672 | | Resolve | | Lauranc | [...] ng | | +---------+---------+---------+---------+---------+---------+---------+---------+---------+ | SCREENI | 3381452 | | Removed | | Geetha | | Alcohol | | | NG FOR | 01 | /10 | | /10 | [place] | | | | | ALCOHOL | (SNOMED | | | | [facility] | | consump | | | ISM | CT) | | | | | | tion | | | | | | | | | | screeni | | | | | | | | | | ng | | +---------+---------+---------+---------+---------+---------+---------+---------+---------+ | SCREENI | [id number] | | Removed | | Geetha | | Screeni | | | NG FOR | 05 | /10 | | /10 | [place] | | ng for | | | UNSPECI | (SNOMED | | | | [facility]MA | | disorde | | | FIED | CT) | | | | | | r | | | CONDITI | | | | | | | | | | ON | | | | | | | | | +---------+---------+---------+---------+---------+---------+---------+---------+---------+ | SCREENI | [id number] | | Removed | | Geetha | | Depress | | | NG FOR | 06 | /10 | | /10 | Patrick | | ion | | | DEPRESS | (SNOMED | | | | CCMA | | screeni | | | ION | CT) | | | | | | ng | | +---------+---------+---------+---------+---------+---------+---------+---------+---------+ | RENAL | 6120855 | | Removed | | Lauranc | [...] e | | +---------+---------+---------+---------+---------+---------+---------+---------+---------+ | EDEMA | 9761930 | | Removed | | Lauranc | | Edema | | | | 08 | /15 | | / | e W | | | | | | (SNOMED | | | | Lila | | | | | | CT) | | | | MD | | | | +---------+---------+---------+---------+---------+---------+---------+---------+---------+ | RENAL | 0476513 | | Active | | Luz | [...] e | | +---------+---------+---------+---------+---------+---------+---------+---------+---------+ | PERIPHE | 7374215 | | Active | | Lauranc | | Periphe | | | RAL | | | | | e W | | ral | | | VASCULA | (SNOMED | | | | Lila | | vascula | | | R | CT) | | | | MD | | r | | | DISEASE | | | | | | | disease | | +---------+---------+---------+---------+---------+---------+---------+---------+---------+ | CANDIDI | 8638814 | | Active | | Susanna | | Candidi | | | ASIS, | | | | | Medel | | asis of | | | SKIN | (SNOMED | | | | MD | | skin | | | | CT) | | | | | | | | +---------+---------+---------+---------+---------+---------+---------+---------+---------+ | DYSURIA | 7755311 | | Removed | | Erica | | Dysuria | | | | 1 | /31 | | /31 | Paul | | | | | | (SNOMED | | | | MA | | | | | | CT) | | | | | | | | +---------+---------+---------+---------+---------+---------+---------+---------+---------+ | VAGINIT | 6458805 | | Removed | | Erica | | Vaginit | | | IS | 1 | /31 | | /31 | Paul | | is | | | | (SNOMED | | | | MA | | | | | | CT) | | | | | | | | +---------+---------+---------+---------+---------+---------+---------+---------+---------+ | RLQ | 8494566 | | Resolve | | Lauranc | | Right | | | PAIN | 02 | | d | /11 | e W | | lower | | | | (SNOMED | | | | Lila | | quadran | | | | CT) | | | | MD | | t pain | | +---------+---------+---------+---------+---------+---------+---------+---------+---------+ | ABDOMIN | 5693427 | | Resolve | | Lauranc | [...] | | | +---------+---------+---------+---------+---------+---------+---------+---------+---------+ | KNEE | 5855927 | | Active | | Lauranc | | Knee | | | PAIN | 3 | /14 | | /14 | e W | | pain | | | | (SNOMED | | | | Lila | | | | | | CT) | | | | MD | | | | +---------+---------+---------+---------+---------+---------+---------+---------+---------+ | [facility] | 5271187 | | Correct | | Lauranc | | Vertebr | | | n of | 08 | / | ion | / | e W | | obasila | [...] e | | +---------+---------+---------+---------+---------+---------+---------+---------+---------+ | VERTIGO | 0999221 | | Active | | Luz | | Vertigo | | | | | / | | /03 | Asad | | | | | | (SNOMED | | | | RN | | | | | | CT) | | | | | | | | +---------+---------+---------+---------+---------+---------+---------+---------+---------+ | CHEST | 1203200 | | Inactiv | | Genny | | Chest | | | PAIN | 9 | | e | /02 | Kaufman | | pain | | | | (SNOMED | | | | | | | | | | CT) | | | | | | | | +---------+---------+---------+---------+---------+---------+---------+---------+---------+ | CHEST | 3325199 | | Inactiv | | Lauranc | [...] fied | | +---------+---------+---------+---------+---------+---------+---------+---------+---------+ | CEREBRO | 5112795 | | Active | | Rogers | | 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 | (SNOMED | | | | MD | | r | | | DISEASE | CT) | | | | | | disease | | +---------+---------+---------+---------+---------+---------+---------+---------+---------+ | History | 2080175 | | Active | | Rogers | [...] | | | +---------+---------+---------+---------+---------+---------+---------+---------+---------+ | DIABETI | [id number] | | Removed | | Rogers | [...] thy | | +---------+---------+---------+---------+---------+---------+---------+---------+---------+ | HYPERLI | 6391081 | | Active | | Rogers | | Hyperli | | | PIDEMIA | | | | | Laith | | pidemia | | | | (SNOMED | | | | MD | | | | | | CT) | | | | | | | | +---------+---------+---------+---------+---------+---------+---------+---------+---------+ | History | [id number] | | Active | | Rogers | [...] e | | +---------+---------+---------+---------+---------+---------+---------+---------+---------+ | CEREBRA | [id number] | | Correct | | Rogers | [...] s | | +---------+---------+---------+---------+---------+---------+---------+---------+---------+ | ABDOMIN | 1821626 | | Removed | | Patricia | [...] | | | +---------+---------+---------+---------+---------+---------+---------+---------+---------+ | RLQ | [id number] | | Removed | | Patricia | [...] IA | (ICD-10 | / | | /26 | e W | | ia, | | | UNSPECI | -CM) | | | | Lila | | unspeci | | | FIED | | | | | MD | | fied | | +---------+---------+---------+---------+---------+---------+---------+---------+---------+ | CARPAL | 5108011 | | Active | | Rogers | | Carpal | | | TUNNEL | 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 | | | | MD | | 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, LEFT | CT) | | | | | | e | | +---------+---------+---------+---------+---------+---------+---------+---------+---------+ | [facility] | [id number] | | Removed | | Rogers | [...] | | | +---------+---------+---------+---------+---------+---------+---------+---------+---------+ | GAIT | 0099492 | | Active | | Rogers | | Abnorma | | | IMBALAN | 2 | / | | / | Laith | | l gait | | | CE | (SNOMED | | | | MD | | | | | | CT) | | | | | | | | +---------+---------+---------+---------+---------+---------+---------+---------+---------+ | BRAIN | 6670602 | | Correct | | Rogers | [...] e | | +---------+---------+---------+---------+---------+---------+---------+---------+---------+ | PARESTH | 0585975 | | Removed | | Rogers | | Paresth | | | ESIA, | 04 | | | / | Laith | | esia of | | | HANDS | (SNOMED | | | | MD | | hand | | | | CT) | | | | | | | | +---------+---------+---------+---------+---------+---------+---------+---------+---------+ | PERIPHE | [id number] | | Correct | | Rogers | | Periphe | | | RAL | | | ion | /25 | Laith | | ral | | | NEUROPA | (SNOMED | | | | MD | | nerve | | | THY | CT) | | | | | | disease | | +---------+---------+---------+---------+---------+---------+---------+---------+---------+ | THYROID | [id number] | | Active | | Luz | | Thyroid | | | NODULE | 05 | /20 | | /20 | Childs | | nodule | | | | (SNOMED | | | | [facility] | | | | | | CT) | | | | | | | | +---------+---------+---------+---------+---------+---------+---------+---------+---------+ | TIA | [id number] | | Active | | Lauranc | [...] a | | +---------+---------+---------+---------+---------+---------+---------+---------+---------+ | SYNCOPE | [id number] | | Removed | | Lauranc | | Syncope | | | | 07 | /07 | | /10 | e W | | | | | | (SNOMED | | | | Lila | | | | | | CT) | | | | MD | | | | +---------+---------+---------+---------+---------+---------+---------+---------+---------+ | GASTROP | [id number] | | Active | | Lauranc | | 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 | | | | (SNOMED | | | | Lila | | syndrom | | | | CT) | | | | MD | | e | | +---------+---------+---------+---------+---------+---------+---------+---------+---------+ | CONSTIP | [id number] | | Active | | Lauranc | | Chronic | | | ATION, | 09 | /08 | | /08 | e W | | | | | CHRONIC | (SNOMED | | | | Lila | | constip | | | | CT) | | | | MD | | ation | | +---------+---------+---------+---------+---------+---------+---------+---------+---------+ | POSTHER | [id number] | | Active | | Lauranc | | Posther | | | 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 | (SNOMED | | | | Lila | | neuralg | | | [place] | CT) | | | | MD | | ia | | +---------+---------+---------+---------+---------+---------+---------+---------+---------+ | DIZZINE | [id number] | | Removed | | Lauranc | | Dizzine | | | SS | 03 | /08 | | /08 | e W | | ss | | | | (SNOMED | | | | Lila | | | | | | CT) | | | | MD | | | | +---------+---------+---------+---------+---------+---------+---------+---------+---------+ | DEHYDRA | [id number] | | Removed | | Lauranc | | Dehydra | | | TION | 6 | /08 | | /08 | e W | | tion | | | | (SNOMED | | | | Lila | | | | | | CT) | | | | MD | | | | +---------+---------+---------+---------+---------+---------+---------+---------+---------+ | DIABETE | [id number] | | Removed | | Lauranc | [...] | | | +---------+---------+---------+---------+---------+---------+---------+---------+---------+ | HYPERTE | [id number] | | Active | | Lauranc | | Hyperte | | | NSION | 3 | | | | e [...] 1 TAB | | | BUSPIRONE | [id number] | Kali | | HCL 7.5 MG | three | | | HCL | 1 | Palacio DPM | | TABS | times per | | | | | | | | day | | | | | | + + + + + + + + | LANTUS 100 | 25 units | | | INSULIN | 3467733101 | Jesus | | UNIT/ML | two [...] two times | | | MECLIZINE | 6173958409 | Bailey W | | HCL 25 MG | per day | | | HCL | 0 | Lila MD | | TABS | | | | | | | + + + + + + + + | MECLIZINE | One tab by | | | MECLIZINE | 5820165785 | Bailey W | | HCL 25 [...] 1 tab | | | PREGABALIN | 5010380014 | Ambrose | | MG CAPS | three | | | | 8 | Ankur DNP | | | times per | | | | | CARPET INSTALLER HELPER | | | day. Pt | | | | | | | | states as | | | | | | | | needed | | | | | | + + + + + + + + | PROMETHAZI | Take one | | | PROMETHAZI | 9378741607 | Edna | | NE HCL 25 [...] 3U before | | | INSULIN | 3490759401 | Scarlett | | 100 | lunch [...] POTASSIUM | | | | POTASSIUM | [id number] | Kali | | CHLORIDE | | | | CHLORIDE | 1 | Palacio DPM | | ER 10 MEQ | | | | | | | | CR-CAPS | | | | | | | + + + + + + + + | DULOXETINE | 1 tab one | | | DULOXETINE | 1311922858 | Bailey W | | HCL 30 MG | time per | | | HCL | 6 | Lila MD | | CPEP | day | | | | | | + + + + + + + + | PROCHLORPE | Insert one | | | PROCHLORPE | [id number] | Edna | | RAZINE 25 | [...] Use daily | | | INSULIN | 0680364770 | [facility] | | NEEDLE | to inject | | | PEN NEEDLE | 0 | Ankur DNP | | ULTRAFINE | insulin | | | | | CARPET INSTALLER HELPER | | 29G X | | | | | | | | 12.7MM | | | | | | | + + + + + + + + | DRAMAMINE | take 1-2 | | | DIMENHYDRI | 3423430913 | Christen Ramirez | | 50 MG TABS | tabs 4 | | | MARCELA | 2 | [place] | | | times per | | | | | CARPET INSTALLER HELPER | | | day as | | | | | | | | needed | | | | | | + + + + + + + + | MADISONZA 18 | | | | LIRAGLUTID | [id number] | Jesus | | MG/3ML | | [...] | | | | * | | CARPET INSTALLER HELPER | + + + + + + + + | BASAGLAR | 1 pen | | | INSULIN | 7249895090 | Christen Ramirez | | KWIKPEN | every 3 | | | GLARGINE | 9 | [place] | | 100 | days 56 | | | | | CARPET INSTALLER HELPER | | UNIT/ML | units q | | | | | | | SOPN | Day | | | | | | + + + + + + + + | NERVE | | | | NERVE | | Bailey Paez | | PAIN | | | | PAIN | | Lila MD | + + + + + + + + | MECLIZINE | 1 by mouth | | | MECLIZINE | 8087986620 | Bailey W | | HCL 25 [...] mix and | | | NA | [id number] | Maulik | | BOWEL PREP | [...] take 2 | | | GABAPENTIN | 1697367038 | Bailey W | | 300 MG [...] Inject 0.6 | | | LIRAGLUTID | 7565933840 | Christen Ramirez | | MG/3ML | mg daily | | | E | 2 | [place] | | SOPN | | | | | | CARPET INSTALLER HELPER | + + + + + + + + | ONDANSETRO | 1 tab | | | ONDANSETRO | 9524719394 | Kali | | N HCL 4 MG | every 4 | | | N HCL | 3 | Palacio DPM | | TABS | hours | | | | | | + + + + + + + + | VICTOZA 18 | | | | LIRAGLUTID | 2947651164 | Bailey W | | MG/3ML | | | | E | 2 | Lila MD | | SOPN | | | | | | | + + + + + + + + | DIABETE | | | | DIABETE | | Franciscoance W | | S | | | | S | | Lila MD | + + + + + + + + | NEURONTIN | take 1 tab | | | GABAPENTIN | 9109217328 | Jesus | | 300 MG | po tid . | | | | 4 | Ethan MD | | CAPS | Pt states | | | | | | | | as needed | | | | | | + + + + + + + + | COLACE 100 | 1 tab by | | | DOCUSATE | 1464281785 | Kali | | MG CAPS | mouth | | | SODIUM | 0 | Palacio DPM | | | daily at | | | | | | | | bedtime | | | | | | + + + + + + + + | CLONAZEPAM | Take one | | | CLONAZEPAM | 0640777004 | Edna | | 0.5 MG | [...] | | | | | | | CARPET INSTALLER HELPER | + + + + + + + + | ASPIRIN | take 1 | | | ASPIRIN | 2686952601 | Rogers | | 325 MG | [...] per | | | FOOT CARE | 0908042315 | [facility] | | INSOLES | custom | | | PRODUCTS | 1 | Ankur DNP | | | fit from | | | | | CARPET INSTALLER HELPER | | | podiatry | | | | | | | | Dx. | | | | | | | | E11.65, | | | | | | | | e11.21 | | | | | | + + + + + + + + | LYRICA 50 | 1 tab | | | PREGABALIN | 1349618397 | Bailey W | | MG CAPS | three | | | | 8 | Lila MD | | | times per | | | | | | | | day | | | | | | + + + + + + + + | GLUCOPHAGE | 1 tab one | | | METFORMIN | 6972181917 | Bailey W | | XR 500 MG | time per | | | HCL | 3 | Lila MD | | [id number] | day | | | | | | + + + + + + + + | HUMALOG | BS <150 - | | | INSULIN | 0738176662 | Christen Ramirez | | 100 | No insulin | | | LISPRO | 1 | [place] | | UNIT/ML | BS | | | (HUMAN) | | CARPET INSTALLER HELPER | | SOLN | 150-200 | | [...] Use 5 | | | INSULIN | 8864945045 | Ambrose | | SYRINGE | times | | | SYRINGE-NE | 1 | Ankur DNP | | ULTRAFINE | daily to | | | EDLE U-100 | | CARPET INSTALLER HELPER | | 29G X 05/28" | inject [...] 50 units | | | INSULIN | 1865283086 | Pako | | UNIT/ML | once per | | | GLARGINE | 3 | Francoiskauf | | SOLN | day. Pt | | | | | f CARPET INSTALLER HELPER | | | states she | | [...] | | | | | | | CARPET INSTALLER HELPER | + + + + + + + + | NITROFURAN | Take one | | | NITROFURAN | 2015066896 | Edna | | TOIN | capsule [...] Use daily | | | GLUCOSE | 2350386837 | Ambrose | | BLOOD | to check | | | BLOOD | 4 | Ankur DNP | | GLUCOSE | blood | | | | | CARPET INSTALLER HELPER | | TEST STRP | sugar | | | | | | + + + + + + + + | ERGOCALCIF | One | | | ERGOCALCIF | 7952529829 | Mariano | | QUANG 14157 | capsule by | | | QUANG [...] take 2 | | | GABAPENTIN | 9238616631 | Mariano | | 300 MG | [...] 10ml QAM | | | METFORMIN | 6246289148 | Mariano | | MG/5ML | Liquid due | | | HCL | 1 | Ariella | | SOLN | to | | | | | CCMA | | | Dysphagia | | | | | | + + + + + + + + | ASPIRIN EC | take 1 | | | ASPIRIN | 7152683863 | Rogers | | 325 MG | tablet | | | | 1 | Laith MD | | TBEC | daily | | | | | | + + + + + + + + | RELION | Use to | | | GLUCOSE | 0309906657 | Kali | | BLOOD | test BG | | | BLOOD | 4 | Palacio DPM | | GLUCOSE | one time | | | | | | | TEST STRP | per day | | | | | | + + + + + + + + | NITROFURAN | | | | NITROFURAN | 3382157982 | Edna | | TOIN | | [...] one tablet | | | DOCUSATE | 5564495152 | Laurance W | | MG CAPS | by mouth | | | SODIUM | 0 | Lila MD | | | at bedtime | | | | | | + + + + + + + + | BACTRIM DS | 1 by mouth | | | TRIMETHOPR | 1983546237 | Laurance W | | 800-160 | twice a | | | IM-SULFAME | 1 | Lila MD | | MG TABS | day for 3 | | | THOXAZOLE | | | | | days | | | | | | + + + + + + + + | RELION PEN | | | | INSULIN | 4174799755 | Ambrose | | NEEDLES | | | | PEN NEEDLE | 4 | Ankur DNP | | 31G X 8 MM | | | | | | CARPET INSTALLER HELPER | + + + + + + + + | VICTOZA 18 | .6 mg x 1 | | | LIRAGLUTID | 5667180156 | Ambrose | | MG/3ML | week then | | | E | 2 | Ankur DNP | | SOPN | 1.2 mg | | | | | CARPET INSTALLER HELPER | | | daily per | | | | | | | | week | | | | | | + + + + + + + + | ASPIRIN 81 | one time | | | ASPIRIN | 1411158128 | Mariano | | MG TABS | [...] | | | | | | | CARPET INSTALLER HELPER | + + + + + + + + | DIABETIC | 1 pair per | | | DIABETIC | | [facility] | | ORTHOTIC | custom | | | ORTHOTIC | | Ankur DNP | | SHOES | fit from | | | SHOES | | CARPET INSTALLER HELPER | | | podiatry | | | | | | | | E11.65, | | | | | | | | e11.21 | | | | | | + + + + + + + + | GABAPENTIN | two times | | | GABAPENTIN | 9658124205 | Mariano | | 100 MG | per day | | | | 1 | Ariella | | CAPS | | | | | | CCMA | + + + + + + + + | MISC | | | | MISC | | Ambrose | | | | | | | | Ankur DNP | | | | | | | | CARPET INSTALLER HELPER | + + + + + + + + | BIOTIN 1 | | | | BIOTIN | 3458256499 | Kali | | MG CAPS | | | | | 2 | Palacio DPM | + + + + + + + + | PIOGLITAZO | Take 1 tab | | | PIOGLITAZO | 5082365706 | Jesus | | NE HCL 15 [...] two times | | | MECLIZINE | 3143025546 | Mariano | | HCL 25 MG | per day | | | HCL | 0 | Ariella | | TABS | | | | | | CCMA | + + + + + + + + | CLINDAMYCI | take 1 cap | | | CLINDAMYCI | | Bailey W | | N 300 MG | po q 6 | | | N 300 MG | | Lila MD | | CAP | hrs for 7 | | | CAP | | | | | days | | | | | | + + + + + + + + | ASPIRIN EC | take 1 | | | ASPIRIN | 9715948145 | Mariano | | 325 MG | tablet | | | | 1 | Ariella | | TBEC | daily | | | | | CCMA | + + + + + + + + | PIOGLITAZO | Take 1 tab | | | PIOGLITAZO | 3199920669 | Christen Ramirez | | NE HCL 15 | by mouth | | | NE HCL | 6 | [place] | | MG TABS | one time | | | | | CARPET INSTALLER HELPER | | | per day in | | | | | | | | the AM | | | | | | + + + + + + + + | NEURONTIN | take 1 tab | | | GABAPENTIN | 2424698819 | Bailey W | | 300 MG | po tid | | | | 4 | Lila MD | | CAPS | | | | | | | + + + + + + + + | DIOVAN 160 | one time | | | VALSARTAN | 5320628532 | Mariano | | MG TABS | per day | | | | 4 | Ariella | | | | | | | | CCMA | + + + + + + + + | ASPIRIN | take 1 | | | ASPIRIN | 6371912151 | Bailey W | | 325 MG [...] 1 pill | | | CEPHALEXIN | 6826805991 | Tiesha | | MG CAPS | twice a | | | | 1 | Kihei MD | | | day for 7 | | | | | | | | days | | | | | | + + + + + + + + | GABAPENTIN | one tablet | | | GABAPENTIN | 1158270394 | Laurance W | | 100 MG [...] 1 tab | | | MECLIZINE | 3576268125 | Laurance W | | HCL 25 MG | three | | | HCL | 0 | Lila MD | | TABS | times per | | | | | | | | day | | | | | | + + + + + + + + | NITROFURAN | Take one | | | NITROFURAN | 6609630821 | Edna | | TOIN | capsule [...] 0.02 ml | | | EXENATIDE | 4529911797 | Bailey W | | MCG PEN 5 | injection | | | | 1 | Lila MD | | MCG/0.02ML | two times | | | | | | | SOPN | per day | | | | | | + + + + + + + + | FLUCONAZOL | take one | | | FLUCONAZOL | 7110095539 | Bailey W | | E 150 MG | tablet PO | | | E | 1 | Lila MD | | TABS | x 1 repeat | | | | | | | | in 3 days | | | | | | + + + + + + + + | PROCHLORPE | Insert one | | | PROCHLORPE | 3550897210 | Ambrose | | RAZINE 25 | | | | RAZINE | 0 | Ankur DNP | | MG SUPP | suppositor | | | | | CARPET INSTALLER HELPER | | | y rectally | | [...] tab two | | | CILOSTAZOL | 8509859984 | Kali | | 100 MG | times per | | | | 1 | Hakeem DPM | | TABS | day | | | | | | + + + + + + + + | RIOMET 500 | 10ml's two | | | METFORMIN | 2826664282 | Franciscoance W | | MG/5ML | times per [...] D | | | | CHOLECALCI | 3000626676 | Kali | | 1000 UNIT | | | | FEROL | 1 | Hakeem DICKEYM | | TABS | | | | | | | + + + + + + + + | NEURONTIN | take 1 tab | | | GABAPENTIN | 6772370881 | Christen Ramirez | | 300 MG | po tid . | | | | 4 | [place] | | CAPS | Pt states | | | | | CARPET INSTALLER HELPER | | | as needed | | | | | | + + + + + + + + | BYETTA 5 | Take as | | | EXENATIDE | 9257415122 | Christen Ramirez | | MCG PEN 5 | directed | | | | 1 | [place] | | MCG/0.02ML | once daily | | | | | CARPET INSTALLER HELPER | | SOPN | in the AM | | | | | | + + + + + + + + | STROKE | | | | STROKE | | Bailey W | | PREVENTION | | | | PREVENTION | | Lila LUIS | | | | | | | | | + + + + + + + + | METFORMIN | two times | | | METFORMIN | 6460160581 | Mariano | | HCL 1000 | per day | | | HCL | 5 | Ariella | | MG TABS | | | | | | CCMA | + + + + + + + + | GABAPENTIN | Take 2 | | | GABAPENTIN | 4837820293 | Bailey W | | 300 MG [...] | | | | | | | CARPET INSTALLER HELPER | + + + + + + + + | LYRICA 50 | TAKE ONE | | | PREGABALIN | 3374046805 | Kesha | | MG CAPS | [...] Take one | | | BIOTIN | 6404678811 | Lorri | | MG CAPS | daily in | | | | 2 | Prabhakar | | | the AM | | | | | NCMA | + + + + + + + + | VALSARTAN | Take one | | | VALSARTAN | 0550413166 | Ambrose | | 160 MG | tablet | | | | 7 | Ankur DNP | | TABS | daily in | | | | | CARPET INSTALLER HELPER | | | the AM | | | | | | + + + + + + + + | BASAGLAR | 68 Units | | | INSULIN | 9451723401 | Ambrose | | KWIKPEN | every | | | GLARGINE | 9 | Ankur DNP | | 100 | morning | | | | | CARPET INSTALLER HELPER | | UNIT/ML | (34 units | | | | | | | SOPN | on each | | | | | | | | side) | | | | | | + + + + + + + + | NOVOLOG | 12 Units | | | INSULIN | 6422455578 | Ambrose | | 100 | before | | | ASPART | 1 | Ankur DNP | | UNIT/ML | meals | | | | | CARPET INSTALLER HELPER | | SOLN | [id number] | | [...] 65 Units | | | INSULIN | 0739162689 | Ambrose | | KWIKPEN | every | | | GLARGINE | 9 | Ankur DNP | | 100 | morning | | | | | CARPET INSTALLER HELPER | | UNIT/ML | | | | | | | | SOPN | | | | | | | + + + + + + + + | BASAGLAR | 60 Units | | | INSULIN | 7187109008 | Ambrose | | GRACEIKPEN | every | | | GLARGINE | 9 | Ankur DNP | | 100 | morning | | | | | CARPET INSTALLER HELPER | | UNIT/ML | | | | | | | | SOPN | | | | | | | + + + + + + + + | MIRALAX | 17 gm | | | POLYETHYLE | 0904804598 | Ambrose | | POWD | daily | | | NE GLYCOL | 2 | Ankur DNP | | | stirred | | | 3350 | | CARPET INSTALLER HELPER | | | into 4-8 | | [...] 1 pill | | | DOCUSATE | 1155481613 | Ambrose | | MG CAPS | twice | | | SODIUM | 0 | Ankur DNP | | | daily for | | | | | CARPET INSTALLER HELPER | | | soft | | | | | | | | stools | | | | | | + + + + + + + + | LYRICA 100 | 1 capsule | | | PREGABALIN | 4458376316 | Ambrose | | MG CAPS | three | | | | 8 | Ankur DNP | | | times | | | | | CARPET INSTALLER HELPER | | | daily for | | | | | | | | neuropathy | | | | | | + + + + + + + + | LASIX 80 | 1 tab by | | | FUROSEMIDE | 1135862202 | Ambrose | | MG TABS | mouth one | | | | 5 | Ankur DNP | | | time per | | | | | CARPET INSTALLER HELPER | | | day in the | | | | | | | | AM | | | | | | + + + + + + + + | POTASSIUM | Take one | | | POTASSIUM | 8417512464 | Ambrose | | CHLORIDE | cap daily | | | CHLORIDE | 1 | Ankur DNP | | ER 10 MEQ | in the AM | | | | | CARPET INSTALLER HELPER | | CR-CAPS | | | | | | | + + + + + + + + | VITAMIN D | Take one | | | CHOLECALCI | 8051794520 | Ambrose | | 1000 UNIT | tablet | | | FEROL | 1 | Ankur DNP | | TABS | daily in | | | | | CARPET INSTALLER HELPER | | | the AM | | | | | | + + + + + + + + | PLAVIX 75 | 1 tab by | | | CLOPIDOGRE | 0575018407 | Ambrose | | MG TABS | mouth one | | | L | 1 | Ankur DNP | | | time per | | | BISULFATE | | CARPET INSTALLER HELPER | | | day in the | | | | | | | | evening | | | | | | + + + + + + + + | BD PEN | Use daily | | | INSULIN | 9805839164 | Ambrose | | NEEDLE | to inject | | | PEN NEEDLE | 0 | Ankur DNP | | ULTRAFINE | insulin | | | | | CARPET INSTALLER HELPER | | 29G X | | | | | | | | 12.7MM | | | | | | | + + + + + + + + | MECLIZINE | One tab by | | | MECLIZINE | 8525768839 | Ambrose | | HCL 25 MG | mouth | | | HCL | 0 | Ankur DNP | | TABS | three | | | | | CARPET INSTALLER HELPER | | | times per | | | | | | | | day | | | | | | + + + + + + + + | PANTOPRAZO | Take one | | | PANTOPRAZO | 4949030756 | Ambrose | | LE SODIUM | tablet by | | | LE SODIUM | 8 | Ankur DNP | | 40 MG TBEC | mouth once | | | | | CARPET INSTALLER HELPER | | | daily | | | | | | + + + + + + + + | GLIPIZIDE | Take 1 | | | GLIPIZIDE | 2649945326 | Ambrose | | XL 2.5 MG | tablet | | | | 1 | Ankur DNP | | [id number] | p.o. | | | | | CARPET INSTALLER HELPER | | | q.a.m. | | | | | | + + + + + + + + | LIPITOR 20 | take 1 | | | ATORVASTAT | 9649853016 | Ambrose | | MG TABS | tablet by | | | IN CALCIUM | 3 | Ankur DNP | | | mouth | | | | | CARPET INSTALLER HELPER | | | daily in | | | | | | | | the | | | | | | | | evening | | | | | | + + + + + + + + | BD INSULIN | Use 5 | | | INSULIN | 1122320992 | Ambrose | | SYRINGE | times | | | SYRINGE-NE | 1 | Ankur DNP | | ULTRAFINE | daily to | | | EDLE U-100 | | CARPET INSTALLER HELPER | | 29G X 2" | inject | | | | | [...] Take one | | | OMEPRAZOLE | 7741238054 | Ambrose | | 40 MG | by mouth | | | | 0 | Ankur DNP | | CPDR | one time | | | | | CARPET INSTALLER HELPER | | | per day | | [...] pill BID | | | DOCUSATE | 1837613706 | Ambrose | | MG CAPS | | | | SODIUM | 0 | Ankur DNP | | | | | | | | CARPET INSTALLER HELPER | + + + + + + + + | BIOTIN 1 | Take one | | | BIOTIN | 0460893596 | Ambrose | | MG CAPS | daily in | | | | 2 | Ankur DNP | | | the AM | | | | | CARPET INSTALLER HELPER | + + + + + + + + | NYSTATIN-T | Apply thin | | | NYSTATIN-T | 5742055629 | Ambrose | | RIAMCINOLO | layer to | | | RIAMCINOLO | 5 | Ankur DNP | | NE | affected | | | NE | | CARPET INSTALLER HELPER | | 449443-4.1 | area BID | | | | | | | UNIT/GM-% | prn for | | | | | | | CREA | itching | | | | | | + + + + + + + + | RELION PEN | | | | INSULIN | 0006002439 | David | | NEEDLES | | | | PEN NEEDLE | 4 | Mark DO | | 31G X 8 MM | | | | | | | + + + + + + + + | NOVOLOG | 3U before | | | INSULIN | 7776828064 | David | | 100 | lunch [...] 56 Units | | | INSULIN | 2396012790 | David | | KWIKPEN | every [...] 1 tab | | | PREGABALIN | 7716658923 | Christen J. | | MG CAPS | three | | | | 8 | [place]um[place]ita | | | times per | | | | | CARPET INSTALLER HELPER | | | day. Pt | | | | | | | | states as | | | | | | | | needed | | | | | | + + + + + + + + | LYRICA 100 | 1 tid | | | PREGABALIN | 1431814146 | Christen J. | | MG CAPS | | | | | 8 | [place] | | | | | | | | CARPET INSTALLER HELPER | + + + + + + + + | VICTOZA 18 | .6 mg x 1 | | | LIRAGLUTID | 0762638298 | Christen J. | | MG/3ML | week then | | | E | 2 | [place] | | SOPN | 1.2 mg | | | | | CARPET INSTALLER HELPER | | | daily per | | | | | | | | week | | | | | | + + + + + + + + | HUMALOG | 3U before | | | INSULIN | 5665171891 | Christen Ramirez | | 100 | lunch and | | | LISPRO | 1 | [place] | | UNIT/ML | 5U before | | | | | CARPET INSTALLER HELPER | | SOLN | Dinner | | [...] Inject 0.6 | | | LIRAGLUTID | 9159406064 | Christen Ramirez | | MG/3ML | mg daily | | | E | 2 | [place] | | SOPN | | | | | | CARPET INSTALLER HELPER | + + + + + + + + | BASAGLAR | 56 Units | | | INSULIN | 3006624507 | Christen J. | | KWIKPEN | by mouth | | | GLARGINE | 9 | [place] | | 100 | every | | | | | CARPET INSTALLER HELPER | | UNIT/ML | morning | | | | | | | SOPN | | | | | | | + + + + + + + + | VICTOZA 18 | 5 unit AM | | | LIRAGLUTID | 2125958748 | Christen Escudero. | | MG/3ML | and 5 | | | E | 2 | [place] | | SOPN | units PM | | | | | CARPET INSTALLER HELPER | + + + + + + + + | BASAGLAR | 1 pen | | | INSULIN | 8537610187 | Christen J. | | KWIKPEN | every 3 | | | GLARGINE | 9 | [place] | | 100 | days 56 | | | | | CARPET INSTALLER HELPER | | UNIT/ML | units q | | | | | | | SOPN | Day | | | | | | + + + + + + + + | BYETTA 5 | Take as | | | EXENATIDE | 5811617097 | Christen Ramirez | | MCG PEN 5 | directed | | | | 1 | [place] | | MCG/0.02ML | once daily | | | | | CARPET INSTALLER HELPER | | SOPN | in the AM | | | | | | + + + + + + + + | LANTUS 100 | 56 units | | | INSULIN | 2639808254 | Kaykay | | UNIT/ML | qAM | | | GLARGINE | 3 | Mora DO | | SOLN | | | | | | | + + + + + + + + | SUPREP | mix and | | | NA | [id number] | Emeka | | BOWEL PREP | [...] <150 - | | | INSULIN | 3911724180 | Tiesha | | 100 | No [...] Use daily | | | GLUCOSE | [id number] | Tiesha | | BLOOD | to check | | | BLOOD | 4 | Maria Isabel MD | | GLUCOSE | blood | | | | | | | TEST STRP | sugar | | | | | | + + + + + + + + | DIABETIC | 1 pair per | | | FOOT CARE | [id number] | Tiesha | | INSOLES | custom [...] custom | | | ORTHOTIC | | Kihei MD | | SHOES | fit from | | | SHOES | | | | | podiatry | | | | | | | | E11.65, | | | | | | | | e11.21 | | | | | | + + + + + + + + | KEFLEX 500 | 1 pill | | | CEPHALEXIN | [id number] | Pako | | MG CAPS | twice a | | | | 1 | Middlekauf | | | day for 7 | | | | | f [employer] | | | days | | | | | | + + + + + + + + | BYETTA 5 | 0.02 ml | | | EXENATIDE | [id number] | Bailey W | | MCG PEN 5 | injection | | | | 1 | Lila MD | | MCG/0.02ML | two times | | | | | | | SOPN | per day | | | | | | + + + + + + + + | LYRICA 100 | 1 tab | | | PREGABALIN | 1496317365 | Bailey W | | MG CAPS | three | | | | 8 | Lila MD | | | times per | | | | | | | | day | | | | | | + + + + + + + + | DRAMAMINE | take 1-2 | | | DIMENHYDRI | 7129543757 | Laurance W | | 50 MG [...] Use 5 | | | INSULIN | 8095570323 | Laurance W | | SYRINGE | [...] tab by | | | CLOPIDOGRE | 3620380048 | Laurance W | | MG TABS | mouth one | | | L | 1 | Lila MD | | | time per | | | BISULFATE | | | | | day | | | | | | + + + + + + + + | LANTUS 100 | 25 units | | | INSULIN | [id number] | Laurance W | | UNIT/ML | two times | | | GLARGINE | 3 | Lila MD | | SOLN | per day | | | | | | + + + + + + + + | LASIX 80 | 1 tab by | | | FUROSEMIDE | 7845464171 | Laurance W | | MG TABS | mouth one | | | | 5 | Lila MD | | | time per | | | | | | | | day | | | | | | + + + + + + + + | FUROSEMIDE | 1 tab one | | | FUROSEMIDE | 2752271026 | Laurance W | | 40 MG | time per | | | | 5 | Lila MD | | TABS | day | | | | | | + + + + + + + + | BUSPIRONE | 1 TAB | | | BUSPIRONE | 2006986089 | Laurance W | | HCL 7.5 MG | three | | | HCL | 1 | Lila MD | | TABS | times per | | | | | | | | day | | | | | | + + + + + + + + | COLACE 100 | 1 tab by | | | DOCUSATE | [id number] | Laurance W | | MG CAPS | mouth | | | SODIUM | 0 | Lila MD | | | daily at | | | | | | | | bedtime | | | | | | + + + + + + + + | BACTRIM DS | 1 by mouth | | | TRIMETHOPR | 5735579580 | Laurance W | | 800-160 | twice a | | | IM-SULFAME | 1 | Lila MD | | MG TABS | day for 3 | | | THOXAZOLE | | | | | days | | | | | | + + + + + + + + | LYRICA 50 | Take 1 tab | | | PREGABALIN | 2278882146 | Laurance W | | MG CAPS [...] tab one | | | METFORMIN | 5897614236 | Laurance W | | XR 500 MG | time per | | | HCL | 3 | Lila MD | | [id number] | day | | | | | | + + + + + + + + | CILOSTAZOL | 1 tab two | | | CILOSTAZOL | 0362475376 | Laurance W | | 100 MG | times per | | | | 1 | Lila MD | | TABS | day | | | | | | + + + + + + + + | OMEPRAZOLE | Take one | | | OMEPRAZOLE | 9312133521 | Laurance W | | 40 MG [...] take 1 | | | ATORVASTAT | 2808063807 | Bailey W | | MG TABS | tablet by | | | IN CALCIUM | 3 | Lila MD | | | mouth | | | | | | | | daily | | | | | | + + + + + + + + | MECLIZINE | 1 tab | | | MECLIZINE | 8866459368 | Laurance W | | HCL 25 MG | three | | | HCL | 0 | Lila MD | | TABS | times per | | | | | | | | day | | | | | | + + + + + + + + | LANTUS 100 | 56 units | | | INSULIN | 0930940777 | Laurance W | | UNIT/ML | in the | | | GLARGINE | 3 | Lila MD | | SOLN | morning | | | | | | + + + + + + + + | ONDANSETRO | 1 tab | | | ONDANSETRO | 3183434852 | Bailey W | | N HCL 4 MG | every 4 | | | N HCL | 3 | Lila MD | | TABS | hours | | | | | | + + + + + + + + | PIOGLITAZO | Take 1 tab | | | PIOGLITAZO | 5333809315 | Bailey W | | NE HCL 15 | by mouth | | | NE HCL | 6 | Lila MD | | MG TABS | one time | | | | | | | | per day | | | | | | + + + + + + + + | RELION | Use to | | | GLUCOSE | 1612932418 | Bailey W | | BLOOD | test BG | | | BLOOD | 4 | Lila MD | | GLUCOSE | one time | | | | | | | TEST STRP | per day | | | | | | + + + + + + + + | GABAPENTIN | Take 2 | | | GABAPENTIN | [id number] | Laurance W | | 300 MG [...] TAB one | | | VALSARTAN | [id number] | Laurance W | | 160 MG | time per | | | | 8 | Lila MD | | TABS | day | | | | | | + + + + + + + + | LYRICA 50 | TAKE ONE | | | PREGABALIN | [id number] | Laurance W | | MG CAPS [...] 0.2 ml | | | EXENATIDE | [id number] | Bailey W | | MCG PEN 5 | injection | | | | 1 | Lila MD | | MCG/0.02ML | two times | | | | | | | SOPN | per day | | | | | | + + + + + + + + | VICTOZA 18 | 1.2 mg | | | LIRAGLUTID | [id number] | Bailey W | | MG/3ML | injected | | | E | 2 | Lila MD | | SOPN | martin | | | | | | + + + + + + + + | KEFLEX 500 | one po TID | | | CEPHALEXIN | [id number] | Susanna | | MG CAPS | | | | | 1 | Gianfranco MD | + + + + + + + + | FLUCONAZOL | take one | | | FLUCONAZOL | [id number] | Susanna | | E 150 MG | tablet PO | | | E | 1 | Gianfranco MD | | TABS | x 1 repeat | | | | | | | | in 3 days | | | | | | + + + + + + + + | LYRICA 50 | 1 tab | | | PREGABALIN | [id number] | Bailey W | | MG CAPS | three | | | | 8 | Lila MD | | | times per | | | | | | | | day | | | | | | + + + + + + + + | GABAPENTIN | Take 2 | | | GABAPENTIN | 7326039426 | Laurance W | | 300 MG [...] tab one | | | DULOXETINE | [id number] | Laurance W | | HCL 30 MG | time per | | | HCL | 6 | Lila MD | | CPEP | day | | | | | | + + + + + + + + | RIOMET 500 | 10ml's two | | | METFORMIN | [id number] | Laurance W | | MG/5ML | [...] TAB one | | | VALSARTAN | [id number] | Laurance W | | MG TABS | time per | | | | 4 | Lila MD | | | day | | | | | | + + + + + + + + | MECLIZINE | One tab by | | | MECLIZINE | [id number] | Laurance W | | HCL 25 [...] take 2 | | | GABAPENTIN | 7661340705 | Franciscoance W | | 300 MG | caps [...] tab one | | | VALSARTAN | [id number] | Laurance W | | MG TABS | time per | | | | 4 | Lila MD | | | day | | | | | | + + + + + + + + | VICTOZA 18 | 0.6 mg | | | LIRAGLUTID | [id number] | Laurance W | | MG/3ML | [...] tab one | | | SITAGLIPTI | 2194926943 | Laurance W | | 100 MG | time per | | | N | 2 | Lila MD | | TABS | day | | | PHOSPHATE | | | + + + + + + + + | GABAPENTIN | 2 tabs two | | | GABAPENTIN | 2979429624 | Laurance W | | 300 MG | times per | | | | 5 | Lila MD | | CAPS | day | | | | | | + + + + + + + + | DIOVAN 160 | 1 by mouth | | | VALSARTAN | [id number] | Laurance W | | MG TABS | every day | | | | 4 | Lila MD | + + + + + + + + | GABAPENTIN | 1 tab at | | | GABAPENTIN | 5561869830 | Laurance W | | 100 MG [...] 28 units | | | INSULIN | 1916926044 | Laurance W | | UNIT/ML | two times | | | GLARGINE | 3 | Lila MD | | SOLN | per day | | | | | | + + + + + + + + | LISINOPRIL | take 1 | | | LISINOPRIL | 1032219924 | Rogers | | 20 MG | tablet by | | | | 1 | Laith LUIS | | TABS | mouth | | | | | | | | daily | | | | | | + + + + + + + + | LANTUS 100 | 56 units | | | INSULIN | 7028030768 | Laurporfirio W | | UNIT/ML | daily | | | GLARGINE | 3 | Lila MD | | SOLN | | | | | | | + + + + + + + + | GABAPENTIN | 1 by mouth | | | GABAPENTIN | 6657916257 | Laurance W | | 100 MG [...] | One | | | ERGOCALCIF | 6082965030 | Laurance W | | QUANG 85066 | capsule by | | | QUANG [...] by mouth | | | LISINOPRIL | 1223990126 | Laurance W | | 5 MG TABS | one time | | | | 1 | Lila MD | | | per day | | | | | | + + + + + + + + | RIOMET 500 | 10ml QAM | | | METFORMIN | 4504141901 | Laurance W | | MG/5ML | Liquid due | | | HCL | 1 | Lila MD | | SOLN | to | | | | | | | | Dysphagia | | | | | | + + + + + + + + | COLACE 100 | one tablet | | | DOCUSATE | [id number] | Laurance W | | MG CAPS | by mouth | | | SODIUM | 0 | Lila MD | | | at bedtime | | | | | | + + + + + + + + | MECLIZINE | 1 by mouth | | | MECLIZINE | 5740069060 | Laurance W | | HCL 25 [...] one tablet | | | METFORMIN | 9457395668 | Laurance W | | HCL 1000 | by mouth | | | HCL | 5 | Lila MD | | MG TABS | twice a | | | | | | | | day | | | | | | + + + + + + + + | ASPIRIN 81 | 1 by mouth | | | ASPIRIN | 0587506560 | Laurance W | | MG TABS | every day | | | | 5 | Lila MD | + + + + + + + + | GABAPENTIN | one tablet | | | GABAPENTIN | 6566400137 | Laurance W | | 100 MG [...] she had | | | Active | Santosen MD | | | redness | | [...] | | | | | | | [employer] | + + + + + + [...] + + + | MECLIZINE | Made | | Moderate | | Laurance W [...] n | +------+------+-------+------+-------+------+ + + + | Podiatry Visit: [facility] Diabetic Foot Exam | + + + +--------+--------+---+---+---+ + | [...] | | | | CPHS | + +--------+--------+---+---+---+ + + + [...] | ) | + + +--------+-------+---+---+ + + + | Rx Refill: eRx Request for VALSARTAN 160MG TAB | + + + +--------+ +---+---+---+ + | | ESM_RR | [id number] | | | B | e-scripts | | | | 31`VALSART | | | | messenger | | [...] | | | | | | | 0`08/06/19 | | | | | | | | 18` | | | | | | | | 018`Tyler | | | | | | | | t - | | | | | | | | [place]*` | | | | | | | | [phone] | | | | | | | | `[id number] | | | | | | | [...] +---+---+---+ + + + | Lab Report: Glyco [...] | | | | CPHS | + +--------+--------+---+---+---+ + | | [...] | | ) | + +--------+--------+---+---+---+ + Plan of Care + + + + | Type | Date | Detail | + + + + | Appointment | 01:00 PM | Hector DPM, [address] | | | | [address], | | | | [place], [address], | | | | | + + + + | Appointment | 01:00 PM | Ambrose Pascual DNP [facility], [address] | | | | [facility] [address], | | | | [place], [address], | | | | | + + + + | Referral | | Physical Therapy Evaluation | | | | [facility], [address] | | | [address], [place], [address] | | | | | | | | | + + + + | Referral | | Physical Therapy Evaluation | | | | [facility], [address] | | | | [address], [place], [address] | | | | | | | | | + + + + | Referral | | Podiatry Consult | | | | Hector Armendariz, | | | | [address] [facility] | | | | [address], [place], [place], | | | | [address] | | | | | + + + + | Referral | | Podiatry Consult | | | | Hector Armendariz, | | | | [address] [facility] | | | | [address], [place], [place], | | | | [address] | | | | | + + + + | Referral | | Ophthalmology Consult | | | | Huong Rose, | | | | [address], [place], | | | | [place], [address] | | | | | + + + + | Referral | | Nephrology Evaluation | | | | Larry Galo, | | | | [address], | | | | [address], [place], [address] | | | | | | | | | + + + + | Referral | | Nephrology Evaluation | | | | Larry Galo, | | | | [address], | | | | [address], [place], [address] | | | | | | | | | + + + + | Referral | | Ophthalmology Consult | | | | Huong Rose, | | | | [address], [place], | | | | [place], [address] | | | | | + + + + | Referral | | Physical Therapy Evaluation | | | | [facility], [address] | | | [address] | | | | [address], [place], [address] | | | | | | | | | + + + + | Referral | | Physical Therapy Evaluation | | | | [facility], [address] | | | | [address] | | | | [address], [place], [address] | | | | | | | | | + + + + | Referral | | [facility] | | | | Dian Atkins, [address] | | | [facility], | | | | [place], [address] | | | | | + + + + | Referral | | [facility] | | | | Dian Atkins, [address] | | | | [facility], | | | | [place], [address] | | | | | + + + + +---+ + | | Referral excluded from report: | +---+ + + + + + | Pending order [...] | + + + + + | [id number] | Overweight | | | + + + + + | CPT-90376 | Glucose by monitor | | | + + + + + | [id number] | Overweight | | | + + + + + | [id number] | Overweight | | | + + + + + | [id number] | Overweight | | | + + + + + | CPT-98396 | IV infusion -1st hr | | | | | (Rehydration) | | | + + + + + | CPT-68721 | Glucose by monitor | | | + + + + + | CPT-83843 | UA Dipstick | | | + + + + + | CPT-89815 | UA Dipstick | | | + + + + + | CPT-89910 | Initial Psych | | | | | Evaluation | | | + + + + + | CPT-89567 | Debride Nail, [address] or | | | | | more [address] | | | + + + + [...] | + + + + + | CPT-31463 | Trim Skin Lesions | | | | | [address] | | | + + + + + | CPT-13760 | DAISY Linick | | | + + + + + | CPT-19604 | [facility], [address] or | | | | | more [address] | | | + + + + [...] + + + | VIT D HYDR 35205 | Vit D, 25 hydroxy | | [...]
--- OUTSIDE RECORDS SUMMARY | ~2019-03-25 | XMS | Clinical Summary ---
Demographics + + + | Address | [address] [place] [address] | | | [place], [place] [address] | + + + | Home Phone | | + + + | Preferred Language | Unknown | + + + | Marital Status | S | + + + | Cheondoism Affiliation | Unknown | + + + | Race | White | + + + | Ethnic Group | or | + + + Author + + + | Author | [facility] | + + + | Organization | [facility] | + + + | Address | [address] | | | [place] [address] | + + + | Phone | Unavailable | + + + Care Team Providers + +------+ + | Care Fusing Machine Tender Name | Role | Phone | + +------+ + | Ambrose Doyle DNP | PCP | | + +------+ + [...] | | tion | | +---------+---------+---------+---------+---------+---------+---------+---------+---------+ | VACCINA | [id number] | | Active | | Ambrose | | Medicat | | | TION | 02 | /03 | | /03 | Ankur | | ion | | | FOR | (SNOMED | | | | DNP EVP | | given | | | STREP [...] | | | +---------+---------+---------+---------+---------+---------+---------+---------+---------+ | OSTEOAR | [id number] | | Active | | Edna | | Osteoar | | | THRITIS | 07 | /16 | | /18 | Hope | | thritis | | | , KNEE, | (SNOMED | | | | CCMA | | of | | | RIGHT | CT) | | | | | | knee | | +---------+---------+---------+---------+---------+---------+---------+---------+---------+ | CONSTIP | [id number] | | Active | | Ambrose | | Constip | | | ATION | 8 | /13 | | /13 | Ankur | | ation | | | | (SNOMED | | | | DNP EVP | | | | | | CT) | | | | | | | | +---------+---------+---------+---------+---------+---------+---------+---------+---------+ | TYPE 2 | E11.21 | | Active | | Ambrose | | Type 2 | | | DIABETE | (ICD-10 | / | | | Ankur | | diabete | | | S | -CM) | | | | DNP EVP | | s | | | MELLITU [...] athy | | +---------+---------+---------+---------+---------+---------+---------+---------+---------+ | DIABETE | [id number] | | Inactiv | | Ambrose | | Type 2 | | | S | 6 | / | e | /08 | Ankur | | diabete | | | MELLITU | (SNOMED | | | | DNP EVP | | s | | | S, TYPE | CT) | | | | | | mellitu | | | II, ON | | | | | | | s | | | | | | | | | | | | | INSULIN | | | | | | | | | +---------+---------+---------+---------+---------+---------+---------+---------+---------+ | DEHYDRA | [id number] | | Resolve | | Ambrose | | Dehydra | | | TION | 6 | | d | | [place] | | tion | | | | (SNOMED | | | | DNP EVP | | | | | | CT) | | | | | | | | +---------+---------+---------+---------+---------+---------+---------+---------+---------+ | DIZZINE | [id number] | | Inactiv | | Ambrose | | Dizzine | | | SS | 03 | | e | | Ank[place] | | ss | | | | (SNOMED | | | | DNP EVP | | | | | | CT) | | | | | | | | +---------+---------+---------+---------+---------+---------+---------+---------+---------+ | ANEMIA | [id number] | | Inactiv | | Ambrose | | Anemia | | | | 00 | /10 | e | /10 | Ank[place] | | | | | | (SNOMED | | | | DNP EVP | | | | | | CT) | | | | | | | | +---------+---------+---------+---------+---------+---------+---------+---------+---------+ | CONSTIP | [id number] | | Inactiv | | Ambrose | | Constip | | | ATION | 8 | | e | | Ankur | | ation | | | | (SNOMED | | | | DNP EVP | | | | | | CT) | | | | | | | | +---------+---------+---------+---------+---------+---------+---------+---------+---------+ | SYNCOPE | [id number] | | Resolve | | Ambrose | | Syncope | | | | 07 | / | d | / | [place] | | | | | | (SNOMED | | | | DNP EVP | | | | | | CT) | | | | | | | | +---------+---------+---------+---------+---------+---------+---------+---------+---------+ | DYSPHAG | R13.10 | | Resolve | | Ambrose | | Dysphag | | | IA | (ICD-10 | / | d | / | Ankur | | ia, | | | UNSPECI | -CM) | | | | DNP EVP | | unspeci | | | FIED | | | | | | | fied | | +---------+---------+---------+---------+---------+---------+---------+---------+---------+ | PARESTH | [id number] | | Inactiv | | Ambrose | | Paresth | | | ESIA, | | | e | | Ankur | | esia of | | | HANDS | (SNOMED | | | | DNP EVP | | hand | | | | CT) | | | | | | | | +---------+---------+---------+---------+---------+---------+---------+---------+---------+ | DIABETI | [id number] | | Inactiv | | Ambrose | | Diabeti | | | C | | | e | | Ankur | | c | | | PERIPHE | (SNOMED | | | | DNP EVP | | periphe | | | RAL [...] | -CM) | | | | DNP EVP | | unspeci | | | FIED | | | | | | | fied | | +---------+---------+---------+---------+---------+---------+---------+---------+---------+ | VAGINIT | [id number] | | Resolve | | Ambrose | | Vaginit | | | IS | 1 | /31 | d | /31 | [place] | | is | | | | (SNOMED | | | | DNP EVP | | | | | | CT) | | | | | | | | +---------+---------+---------+---------+---------+---------+---------+---------+---------+ | DYSURIA | [id number] | | Resolve | | Ambrose | | Dysuria | | | | 1 | /31 | d | /31 | Ank[place] | | | | | | (SNOMED | | | | DNP EVP | | | | | | CT) | | | | | | | | +---------+---------+---------+---------+---------+---------+---------+---------+---------+ | EDEMA | [id number] | | Inactiv | | Ambrose | | Edema | | | | 08 | / | e | / | [place] | | | | | | (SNOMED | | | | DNP EVP | | | | | | CT) | | | | | | | | +---------+---------+---------+---------+---------+---------+---------+---------+---------+ | RENAL | [id number] | | Inactiv | | Ambrose | | Acute | | | FAILURE | 1 | / | e | / | Ankur | | renal | | | , ACUTE | (SNOMED | | | | DNP EVP | | failure | | | | CT) | | | | | | | | | | | | | | | | syndrom | | | | | | | | | | e | | +---------+---------+---------+---------+---------+---------+---------+---------+---------+ | DIABETE | [id number] | | Inactiv | | Ambrose | | Periphe | | | S | 02 | / | e | / | Ankur | | ral | | | MELLITU | (SNOMED | | | | DNP EVP | | circula | | | S, [...] | -CM) | | | | DNP EVP | | s | | | DIABETI [...] ropathy | | +---------+---------+---------+---------+---------+---------+---------+---------+---------+ | LOCALIZ | [id number] | | Resolve | | Ambrose | | Disorde | | | ED | 09 | / | d | / | [place] | | r of | | | SWELLIN | (SNOMED | | | | DNP EVP | | forearm | | | G [...] | | | +---------+---------+---------+---------+---------+---------+---------+---------+---------+ | UTI | [id number] | | Resolve | | Ambrose | | Urinary | | | | 5 | /13 | d | /13 | Ankur | | tract | | | | (SNOMED | | | | DNP EVP | | infecti | | | | CT) | | | | | | ous | | | | | | | | | | disease | | +---------+---------+---------+---------+---------+---------+---------+---------+---------+ | TYPE 2 | E11.21 | | Inactiv | | Ambrose | | Type 2 | | | DIABETE | (ICD-10 | | e | / | Ankur | | diabete | | | S | -CM) | | | | DNP EVP | | s | | | MELLITU [...] athy | | +---------+---------+---------+---------+---------+---------+---------+---------+---------+ | DEMENTI | [id number] | | Inactiv | | Ambrose | | Procedu | | | A | | | e | | Ankur | | re | | | SCREENI | (SNOMED | | | | DNP EVP | | carried | | | NG | CT) | | | | | | out on | | | | | | | | | | | | | | | | | | | | subject | | +---------+---------+---------+---------+---------+---------+---------+---------+---------+ | CHANGE | [id number] | | Inactiv | | Ambrose | | Altered | | | IN | 9 | /13 | e | /13 | [place] | | bowel | | | BOWEL | (SNOMED | | | | DNP EVP | | functio | | | HABITS | CT) | | | | | | n | | +---------+---------+---------+---------+---------+---------+---------+---------+---------+ | MILD | [id number] | | Inactiv | | Ambrose | | Mild | | | COGNITI | | | e | | Ankur | | cogniti | | | VE | (SNOMED | | | | DNP EVP | | ve | | | IMPAIRM | CT) | | | | | | disorde | | | ENT | | | | | | | r | | +---------+---------+---------+---------+---------+---------+---------+---------+---------+ | DIABETE | [id number] | | Inactiv | | Ambrose | | Diabeti | | | S | 929110 | /11 | e | /12 | Ankur | | c | | | MELLITU | (SNOMED | | | | DNP EVP | | periphe | | | S, [...] fied | | +---------+---------+---------+---------+---------+---------+---------+---------+---------+ | DIABETE | 2999360 | | Active | | David W | | Diabeti | | | S | 731674 | /15 | | /15 | Theen [...] s | | +---------+---------+---------+---------+---------+---------+---------+---------+---------+ | MUSCLE | [id number] | | Active | | Christen | | Muscle | | | PAIN | 1 | /07 | | /07 | J. | | pain | | | | (SNOMED | | | | [place] | | | | | | CT) | | | | ta EVP | | | | +---------+---------+---------+---------+---------+---------+---------+---------+---------+ | DIABETE | [id number] | | Removed | | David W | | Diabeti | | | S | 638750 | | | | Theen | | c | | [...] s | | +---------+---------+---------+---------+---------+---------+---------+---------+---------+ | MILD | [id number] | | Removed | | Maulik | [...] uterus | | +---------+---------+---------+---------+---------+---------+---------+---------+---------+ | COLONIC | 3097910 | | Active | | Emeka | [...] | | | +---------+---------+---------+---------+---------+---------+---------+---------+---------+ | CONSTIP | [id number] | | Removed | | Emeka | | Constip | | | ATION | 8 | /13 | | /13 | Petre | | ation | | | | (SNOMED | | | | MD | | | | | | CT) | | | | | | | | +---------+---------+---------+---------+---------+---------+---------+---------+---------+ | CHANGE | 0005497 | | Removed | | Emeka | | Altered | | | IN | 9 | /13 | | /13 | Petre | | bowel | | | BOWEL | (SNOMED | | | | MD | | functio | | | HABITS | CT) | | | | | | n | | +---------+---------+---------+---------+---------+---------+---------+---------+---------+ | DECREAS | 5012094 | | Active | | Emeka | | Decreas | | | ED | 6 | | | | Petre | | e in | | | APPETIT | (SNOMED | | | | MD | | appetit | | | E | CT) | | | | | | e | | +---------+---------+---------+---------+---------+---------+---------+---------+---------+ | WEIGHT | 8086259 | | Active | | Emeka | | Abnorma | | | LOSS | 01 | | | | Petre | | l | | | ABNORMA | (SNOMED | | | | MD | | weight | | | L | CT) | | | | | | loss | | +---------+---------+---------+---------+---------+---------+---------+---------+---------+ | NAUSEA | 8729146 | | Active | | Emeka | | Nausea | | | ALONE | 07 | /13 | | /13 | Petre | | | | | | (SNOMED | | | | MD | | | | | | CT) | | | | | | | | +---------+---------+---------+---------+---------+---------+---------+---------+---------+ | RECTAL | 6693672 | | Active | | Emeka | | Rectal | | | BLEEDIN | 2 | / | | / | Petre | | hemorrh | | | G | (SNOMED | | | | MD | | age | | | | CT) | | | | | | | | +---------+---------+---------+---------+---------+---------+---------+---------+---------+ | DEMENTI | 0189185 | | Active | | Christen | | Dementi | | | A | 6 | /10 | | /10 | J. | | a | | | WITHOUT | (SNOMED | | | | [place] | | | | | | CT) | | | | ta EVP | | | | | BEHAVIO | | | | | | | | | | RAL | | | | | | | | | | DISTURB | | | | | | | | | | ANCE | | | | | | | | | +---------+---------+---------+---------+---------+---------+---------+---------+---------+ | CHRONIC | 0124469 | | Active | | Christen | | Chronic | | | | 03 | / | | /10 | J. | | | | | PROGRES | (SNOMED | | | | [place] | | progres | | | SIVE | CT) | | | | ta EVP | | sive | | | RENAL | | | | | | | renal | | | FAILURE | | | | | | | failure | | +---------+---------+---------+---------+---------+---------+---------+---------+---------+ | ANEMIA | 6784328 | | Removed | | Christen | | Anemia | | | | 00 | / | | / | J. | | | | | | (SNOMED | | | | [place] | | | | | | CT) | | | | ta EVP | | | | +---------+---------+---------+---------+---------+---------+---------+---------+---------+ | DEMENTI | 2324976 | | Removed | | Christen | | Procedu | | | A | 03 | / | | / | J. | | re | | | SCREENI | (SNOMED | | | | [place] | | carried | | | NG | CT) | | | | ta EVP | | out on | | | | | | | | | | | | | | | | | | | | subject | | +---------+---------+---------+---------+---------+---------+---------+---------+---------+ | FALL | [id number] | | Active | | Christen | | At risk | | | RISK | | | | | J. | | for | | | | (SNOMED | | | | [place] | | falls | | | | CT) | | | | ta EVP | | | | +---------+---------+---------+---------+---------+---------+---------+---------+---------+ | DIABETE | 3118365 | | Resolve | | Christen | | Diabeti | | | S | 409042 | /14 | d | /15 | J. | | c | | | MELLITU | (SNOMED | | | | [place] | | periphe | | | S, TYPE | CT) | | | | ta EVP | | ral | | | II [...] s | | +---------+---------+---------+---------+---------+---------+---------+---------+---------+ | CORNS | [id number] | | Inactiv | | Kali | | Corns | | | AND | | | e | | Palacio | | and | | | CALLOSI | (SNOMED | | | | DPM | | callus | | | TIES | CT) | | | | | | | | +---------+---------+---------+---------+---------+---------+---------+---------+---------+ | HAMMER | [id number] | | Active | | Kali | | Kareem | | | TOE, | 08 | / | | / | [place] | | toe | | | OTHER, | (SNOMED | | | | DPM | | | | | ACQUIRE | CT) | | | | | | | | | D | | | | | | | | | +---------+---------+---------+---------+---------+---------+---------+---------+---------+ | ETIENNE | 4909240 | | Active | | Kali | | Acquire | | | VALGUS, | 1 | / | | | Hakeem | | d [...] ropathy | | +---------+---------+---------+---------+---------+---------+---------+---------+---------+ | DIABETE | 7383996 | | Removed | | Kali | | Periphe | | | S | 02 | | | | Hakeem | | [...] s | | +---------+---------+---------+---------+---------+---------+---------+---------+---------+ | ONYCHOM | 2764020 | | Active | | Kali | | Onychom | | | YCOSIS | 08 | /01 | | /01 | Palacio | | ycosis | | | | (SNOMED | | | | DPM | | | | | | CT) | | | | | | | | +---------+---------+---------+---------+---------+---------+---------+---------+---------+ | HEARTBU | 6732193 | | Active | | Tiesha | | Heartbu | | | RN | 0 | /19 | | /19 | | | rn | | | | (SNOMED | | | | Maria Isabel | | | | | | CT) | | | | MD | | | | +---------+---------+---------+---------+---------+---------+---------+---------+---------+ | TYPE 2 | 5577571 | | Active | | Tiesha | | Disorde | | | DIABETE | 03 | / | | | | | r due | | | S | (SNOMED | | | | [place] | | to type | | | [...] athy | | +---------+---------+---------+---------+---------+---------+---------+---------+---------+ | UTI | 1465695 | | Removed | | Pako | | Urinary | | | | 5 | /13 | | /13 | Middlek | | tract | | | | (SNOMED | | | | auff | | infecti | | | | CT) | | | | EVP | | ous | | | | | | | | | | disease | | +---------+---------+---------+---------+---------+---------+---------+---------+---------+ | LOCALIZ | 1490291 | | Removed | | [place]lena | [...] | | | +---------+---------+---------+---------+---------+---------+---------+---------+---------+ | LIPOMA | 9658360 | | Active | | Lauranc | | Lipoma | | | | 2 | /14 | | /14 | e W | | (clinic | | | | (SNOMED | | | | Lila | | al) | | | | CT) | | | | MD | | | | +---------+---------+---------+---------+---------+---------+---------+---------+---------+ | VITAMIN | 0433039 | | Active | | David Paez | | Vitamin | | | D | 6 | /14 | | /15 | Theen | | D | | | DEFICIE | (SNOMED | | | | MD FACE | | deficie | | | NCY | CT) | | | | FACP | | ncy | | +---------+---------+---------+---------+---------+---------+---------+---------+---------+ | OBESITY | 2179811 | | Active | | David Paez | | Obesity | | | , BMI | 01 | /14 | | /15 | Theen | | | | | 35-39.9 | (SNOMED | | | | MD FACE | | | | | , ADULT | CT) | | | | FACP | | | | +---------+---------+---------+---------+---------+---------+---------+---------+---------+ | DIABETE | 7879234 | | Removed | | David Paez | | Diabeti | | | S | 236819 | /14 | | /15 | Theen [...] s | | +---------+---------+---------+---------+---------+---------+---------+---------+---------+ | HALLUX | 9077976 | | Inactiv | | Kali | | Acquire | | | VALGUS, | 1 | / | e | / | Palacio | | d | | | | (SNOMED | | | | DPM | | hallux | | | ACQUIRE | CT) | | | | | | valgus | | | D | | | | | | | | | +---------+---------+---------+---------+---------+---------+---------+---------+---------+ | HAMMER | 6356721 | | Inactiv | | Kali | | Hammer | | | TOE, | 08 | / | e | /01 | Palacio | | toe | | | OTHER, | (SNOMED | | | | DPM | | | | | ACQUIRE | CT) | | | | | | | | | D | | | | | | | | | +---------+---------+---------+---------+---------+---------+---------+---------+---------+ | ONYCHOM | [id number] | | Inactiv | | Kali | [...] | (ICD-10 | | e | | Palacio | | diabete | [...] ropathy | | +---------+---------+---------+---------+---------+---------+---------+---------+---------+ | DIABETE | [id number] | | Inactiv | | Kali | | Periphe | | | S | | | e | | Palacio | | ral | [...] s | | +---------+---------+---------+---------+---------+---------+---------+---------+---------+ | SCREENI | 6060730 | | Resolve | | Lauranc | | Depress | | | NG FOR | | | d | /10 | e W | | ion | | | DEPRESS | (SNOMED | | | | Lila | | screeni | | | ION | CT) | | | | MD | | ng | | +---------+---------+---------+---------+---------+---------+---------+---------+---------+ | SCREENI | 7679550 | | Resolve | | Lauranc | [...] | | | +---------+---------+---------+---------+---------+---------+---------+---------+---------+ | SCREENI | 2876943 | | Resolve | | Lauranc | [...] ng | | +---------+---------+---------+---------+---------+---------+---------+---------+---------+ | SCREENI | 0717397 | | Removed | | Geetha | | Alcohol | | | NG FOR | 01 | /10 | | /10 | [place] | | | | | ALCOHOL | (SNOMED | | | | [facility] | | consump | | | ISM | CT) | | | | | | tion | | | | | | | | | | screeni | | | | | | | | | | ng | | +---------+---------+---------+---------+---------+---------+---------+---------+---------+ | SCREENI | 7125440 | | Removed | | Geetha | [...] | | | +---------+---------+---------+---------+---------+---------+---------+---------+---------+ | SCREENI | 3245072 | | Removed | | Geetha | | Depress | | | NG FOR | 06 | /10 | | /10 | [place] | | ion | | | DEPRESS | (SNOMED | | | | [facility]MA | | screeni | | | ION | CT) | | | | | | ng | | +---------+---------+---------+---------+---------+---------+---------+---------+---------+ | RENAL | 9705431 | | Removed | | Lauranc | [...] e | | +---------+---------+---------+---------+---------+---------+---------+---------+---------+ | EDEMA | 2677596 | | Removed | | Lauranc | | Edema | | | | 08 | /15 | | /11 | e W | | | | | | (SNOMED | | | | Lila | | | | | | CT) | | | | MD | | | | +---------+---------+---------+---------+---------+---------+---------+---------+---------+ | RENAL | 7358148 | | Active | | Luz | [...] e | | +---------+---------+---------+---------+---------+---------+---------+---------+---------+ | PERIPHE | 9393535 | | Active | | Lauranc | [...] disease | | +---------+---------+---------+---------+---------+---------+---------+---------+---------+ | CANDIDI | 4636465 | | Active | | Susanna | | Candidi | | | ASIS, | 6 | / | | /03 | Medel | | asis of | | | SKIN | (SNOMED | | | | MD | | skin | | | | CT) | | | | | | | | +---------+---------+---------+---------+---------+---------+---------+---------+---------+ | DYSURIA | 2276950 | | Removed | | Erica | | Dysuria | | | | 1 | / | | /31 | Paul | | | | | | (SNOMED | | | | MA | | | | | | CT) | | | | | | | | +---------+---------+---------+---------+---------+---------+---------+---------+---------+ | VAGINIT | 5565724 | | Removed | | Erica | | Vaginit | | | IS | 1 | /31 | | /31 | Paul | | is | | | | (SNOMED | | | | MA | | | | | | CT) | | | | | | | | +---------+---------+---------+---------+---------+---------+---------+---------+---------+ | RLQ | 2458823 | | Resolve | | Lauranc | | Right | | | PAIN | 02 | | d | /11 | e W | | lower | | | | (SNOMED | | | | Lila | | quadran | | | | CT) | | | | MD | | t pain | | +---------+---------+---------+---------+---------+---------+---------+---------+---------+ | ABDOMIN | 4658778 | | Resolve | | Lauranc | [...] (ICD-10 | / | d | | e [...] | | | +---------+---------+---------+---------+---------+---------+---------+---------+---------+ | KNEE | [id number] | | Active | | Lauranc | | Knee | | | PAIN | 3 | /14 | | /14 | e W | | pain | | | | (SNOMED | | | | Lila | | | | | | CT) | | | | MD | | | | +---------+---------+---------+---------+---------+---------+---------+---------+---------+ | Questio | 5964020 | | Correct | | Lauranc | [...] e | | +---------+---------+---------+---------+---------+---------+---------+---------+---------+ | VERTIGO | 2085863 | | Active | | Luz | | Vertigo | | | | | / | | /03 | Asad | | | | | | (SNOMED | | | | RN | | | | | | CT) | | | | | | | | +---------+---------+---------+---------+---------+---------+---------+---------+---------+ | CHEST | 6783345 | | Inactiv | | Genny | | Chest | | | PAIN | 9 | | e | /02 | Kaufman | | pain | | | | (SNOMED | | | | | | | | | | CT) | | | | | | | | +---------+---------+---------+---------+---------+---------+---------+---------+---------+ | CHEST | 4609870 | | Inactiv | | Lauranc | [...] fied | | +---------+---------+---------+---------+---------+---------+---------+---------+---------+ | CEREBRO | 7611130 | | Active | | Rogers | | 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 | (SNOMED | | | | MD | | r | | | DISEASE | CT) | | | | | | disease | | +---------+---------+---------+---------+---------+---------+---------+---------+---------+ | History | 7071170 | | Active | | Rogers | [...] | | | +---------+---------+---------+---------+---------+---------+---------+---------+---------+ | DIABETI | 4575538 | | Removed | | Rogers | [...] thy | | +---------+---------+---------+---------+---------+---------+---------+---------+---------+ | HYPERLI | 3415197 | | Active | | Rogers | | Hyperli | | | PIDEMIA | 4 | / | | /30 | Laith | | pidemia | | | | (SNOMED | | | | MD | | | | | | CT) | | | | | | | | +---------+---------+---------+---------+---------+---------+---------+---------+---------+ | History | 3393025 | | Active | | Rogers | | Brainst | | | of | 05 | / | | / | Laith | | em | | | BRAIN | (SNOMED | | | | MD | | stroke | | | STEM | CT) | | | | | | syndrom | | | STROKE | | | | | | | e | | +---------+---------+---------+---------+---------+---------+---------+---------+---------+ | CEREBRA | 5957075 | | Correct | | Rogers | [...] s | | +---------+---------+---------+---------+---------+---------+---------+---------+---------+ | ABDOMIN | 0612658 | | Removed | | Patricia | [...] | | | +---------+---------+---------+---------+---------+---------+---------+---------+---------+ | RLQ | 8756868 | | Removed | | Patricia | [...] IA | (ICD-10 | | | | e W | | ia, | | | UNSPECI | -CM) | | | | Lila | | unspeci | | | FIED | | | | | MD | | fied | | +---------+---------+---------+---------+---------+---------+---------+---------+---------+ | CARPAL | [id number] | | Active | | Rogers | | Carpal | | | 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 | | | | MD | | 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, LEFT | CT) | | | | | | e | | +---------+---------+---------+---------+---------+---------+---------+---------+---------+ | Questio | 4549718 | | Removed | | Rogers | [...] | | | +---------+---------+---------+---------+---------+---------+---------+---------+---------+ | GAIT | 8523045 | | Active | | Rogers | | Abnorma | | | IMBALAN | 2 | | | / | Laith | | l gait | | | CE | (SNOMED | | | | MD | | | | | | CT) | | | | | | | | +---------+---------+---------+---------+---------+---------+---------+---------+---------+ | BRAIN | 9677092 | | Correct | | Rogers | [...] e | | +---------+---------+---------+---------+---------+---------+---------+---------+---------+ | PARESTH | 4588419 | | Removed | | Rogers | | Paresth | | | ESIA, | 04 | /25 | | /25 | Laith | | esia of | | | HANDS | (SNOMED | | | | MD | | hand | | | | CT) | | | | | | | | +---------+---------+---------+---------+---------+---------+---------+---------+---------+ | PERIPHE | 4951158 | | Correct | | Rogers | | Periphe | | | RAL | | | ion | /25 | Laith | | ral | | | NEUROPA | (SNOMED | | | | MD | | nerve | | | THY | CT) | | | | | | disease | | +---------+---------+---------+---------+---------+---------+---------+---------+---------+ | THYROID | [id number] | | Active | | Luz | | Thyroid | | | NODULE | 05 | /20 | | /20 | [place] | | nodule | | | | (SNOMED | | | | [facility] | | | | | | CT) | | | | | | | | +---------+---------+---------+---------+---------+---------+---------+---------+---------+ | TIA | [id number] | | Active | | Lauranc | [...] a | | +---------+---------+---------+---------+---------+---------+---------+---------+---------+ | SYNCOPE | [id number] | | Removed | | Lauranc | | Syncope | | | | | | | /10 | e W | | | | | | (SNOMED | | | | Lila | | | | | | CT) | | | | MD | | | | +---------+---------+---------+---------+---------+---------+---------+---------+---------+ | GASTROP | [id number] | | Active | | Lauranc | | 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 | | | | (SNOMED | | | | Lila | | syndrom | | | | CT) | | | | MD | | e | | +---------+---------+---------+---------+---------+---------+---------+---------+---------+ | CONSTIP | [id number] | | Active | | Lauranc | | Chronic | | | ATION, | 09 | /08 | | /08 | e W | | | | | CHRONIC | (SNOMED | | | | Lila | | constip | | | | CT) | | | | MD | | ation | | +---------+---------+---------+---------+---------+---------+---------+---------+---------+ | POSTHER | [id number] | | Active | | Lauranc | | Posther | | | 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 | (SNOMED | | | | Lila | | neuralg | | | [place] | CT) | | | | MD | | ia | | +---------+---------+---------+---------+---------+---------+---------+---------+---------+ | DIZZINE | [id number] | | Removed | | Lauranc | | Dizzine | | | SS | 03 | /08 | | /08 | e W | | ss | | | | (SNOMED | | | | Lila | | | | | | CT) | | | | MD | | | | +---------+---------+---------+---------+---------+---------+---------+---------+---------+ | DEHYDRA | [id number] | | Removed | | Lauranc | | Dehydra | | | TION | 6 | /08 | | /08 | e W | | tion | | | | (SNOMED | | | | Lila | | | | | | CT) | | | | MD | | | | +---------+---------+---------+---------+---------+---------+---------+---------+---------+ | DIABETE | [id number] | | Removed | | Lauranc | [...] | | | +---------+---------+---------+---------+---------+---------+---------+---------+---------+ | HYPERTE | [id number] | | Active | | Lauranc | [...] 1 TAB | | | BUSPIRONE | [id number] | Kali | | HCL 7.5 MG | three | | | HCL | 1 | Palacio DPM | | TABS | times per | | | | | | | | day | | | | | | + + + + + + + + | LANTUS 100 | 25 units | | | INSULIN | [id number] | Jesus | | UNIT/ML | two [...] two times | | | MECLIZINE | 8537600672 | Laurance W | | HCL 25 MG | per day | | | HCL | 0 | Lila MD | | TABS | | | | | | | + + + + + + + + | MECLIZINE | One tab by | | | MECLIZINE | 9610457624 | Laurance W | | HCL 25 [...] 1 tab | | | PREGABALIN | 9900044585 | Ambrose | | MG CAPS | three | | | | 8 | Ankur DNP | | | times per | | | | | EVP | | | day. Pt | | | | | | | | states as | | | | | | | | needed | | | | | | + + + + + + + + | PROMETHAZI | Take one | | | PROMETHAZI | 2540746511 | Edna | | NE HCL 25 [...] 3U before | | | INSULIN | 6343700812 | Scarlett | | 100 | lunch [...] POTASSIUM | | | | POTASSIUM | [id number] | Kali | | CHLORIDE | | | | CHLORIDE | 1 | Palacio DPM | | ER 10 MEQ | | | | | | | | CR-CAPS | | | | | | | + + + + + + + + | DULOXETINE | 1 tab one | | | DULOXETINE | 9013729599 | Franciscoporfirio W | | HCL 30 MG | time per | | | HCL | 6 | Lila MD | | CPEP | day | | | | | | + + + + + + + + | PROCHLORPE | Insert one | | | PROCHLORPE | 0875655132 | Edna | | RAZINE 25 | [...] Use daily | | | INSULIN | 7657535996 | Ambrose | | NEEDLE | to inject | | | PEN NEEDLE | 0 | Ankur DNP | | ULTRAFINE | insulin | | | | | EVP | | 29G X | | | | | | | | 12.7MM | | | | | | | + + + + + + + + | DRAMAMINE | take 1-2 | | | TAYLER | 9623181459 | Christen Ramirez | | 50 MG TABS | tabs 4 | | | MARCELA | 2 | [place] | | | times per | | | | | EVP | | | day as | | | | | | | | needed | | | | | | + + + + + + + + | VICTOZA 18 | | | | LIRAGLUTID | 3565696542 | Jesus | | MG/3ML | | | | E | 2 | Ethan LUIS | | SOPN | | | | | | | + + + + + + + + | BLOOD | | | | BLOOD | | Ambrose | | PRESSURE | | | | PRESSURE | | Ankur DNP | | * | | | | * | | EVP | + + + + + + + + | BASAGLAR | 1 pen | | | INSULIN | 9603271070 | Christen Ramirez | | KWIKPEN | every 3 | | | GLARGINE | 9 | [place] | | 100 | days 56 | | | | | EVP | | UNIT/ML | units q | [...] by mouth | | | MECLIZINE | 7215800589 | Bailey W | | HCL 25 [...] mix and | | | NA | [id number] | Maulik | | BOWEL PREP | [...] take 2 | | | GABAPENTIN | 1625578579 | Bailey W | | 300 MG [...] Inject 0.6 | | | LIRAGLUTID | 8122957591 | Christen Ramirez | | MG/3ML | mg daily | | | E | 2 | [place] | | SOPN | | | | | | EVP | + + + + + + + + | ONDANSETRO | 1 tab | | | ONDANSETRO | 7395239902 | Kali | | N HCL 4 MG | every 4 | | | N HCL | 3 | Palacio DPM | | TABS | hours | | | | | | + + + + + + + + | MADISONZA 18 | | | | LIRAGLUTID | 0190292124 | Laurance W | | MG/3ML | | | [...] 1 tab | | | GABAPENTIN | 7106172013 | Jesus | | 300 MG | po tid . | | | | 4 | Ethan MD | | CAPS | Pt states | | | | | | | | as needed | | | | | | + + + + + + + + | COLACE 100 | 1 tab by | | | DOCUSATE | 7316519493 | Kali | | MG CAPS | mouth | | | SODIUM | 0 | Palacio DPM | | | daily at | | | | | | | | bedtime | | | | | | + + + + + + + + | CLONAZEPAM | Take one | | | CLONAZEPAM | 7299455800 | Edna | | 0.5 MG | [...] | | | | | | | EVP | + + + + + + + + | ASPIRIN | take 1 | | | ASPIRIN | 2090591638 | Rogers | | 325 MG | [...] per | | | FOOT CARE | 1248716237 | [facility] | | INSOLES | custom | | | PRODUCTS | 1 | Ankur DNP | | | fit from | | | | | EVP | | | podiatry | | | | | | | | Dx. | | | | | | | | E11.65, | | | | | | | | e11.21 | | | | | | + + + + + + + + | LYRICA 50 | 1 tab | | | PREGABALIN | 4631127425 | Laurance W | | MG CAPS | three | | | | 8 | Lila MD | | | times per | | | | | | | | day | | | | | | + + + + + + + + | GLUCOPHAGE | 1 tab one | | | METFORMIN | 0090871996 | Franciscoance W | | XR 500 MG | time per | | | HCL | 3 | Lila MD | | [id number] | day | | | | | | + + + + + + + + | HUMALOG | BS <150 - | | | INSULIN | 6637439310 | Christen Ramirez | | 100 | No insulin | | | LISPRO | 1 | [place] | | UNIT/ML | BS | | | (HUMAN) | | EVP | | SOLN | 150-200 | | [...] Use 5 | | | INSULIN | 3969404880 | Ambrose | | SYRINGE | times | | | SYRINGE-NE | 1 | Ankur DNP | | ULTRAFINE | daily to | | | EDLE U-100 | | EVP | | 29G X 05/28" | inject [...] 50 units | | | INSULIN | 9698239440 | Pako | | UNIT/ML | once per | | | GLARGINE | 3 | Middlekauf | | SOLN | day. Pt | | | | | f EVP | | | states she | | [...] | | | | | | | EVP | + + + + + + + + | NITROFURAN | Take one | | | NITROFURAN | 7202162043 | Edna | | TOIN | capsule [...] Use daily | | | GLUCOSE | 5792905727 | Ambrose | | BLOOD | to check | | | BLOOD | 4 | Ankur DNP | | GLUCOSE | blood | | | | | EVP | | TEST STRP | sugar | | | | | | + + + + + + + + | ERGOCALCIF | One | | | ERGOCALCIF | 0223217328 | Mariano | | QUANG 04275 | capsule by | | | QUANG [...] take 2 | | | GABAPENTIN | 3015388693 | Mariano | | 300 MG | [...] 10ml QAM | | | METFORMIN | 2227371574 | Mariano | | MG/5ML | Liquid due | | | HCL | 1 | Ariella | | SOLN | to | | | | | CCMA | | | Dysphagia | | | | | | + + + + + + + + | ASPIRIN EC | take 1 | | | ASPIRIN | 1496587932 | Rogers | | 325 MG | tablet | | | | 1 | Laith LUIS | | TBEC | daily | | | | | | + + + + + + + + | RELION | Use to | | | GLUCOSE | 1721313685 | Kali | | BLOOD | test BG | | | BLOOD | 4 | Palacio DPM | | GLUCOSE | one time | | | | | | | TEST STRP | per day | | | | | | + + + + + + + + | NITROFURAN | | | | NITROFURAN | 4405571865 | Edna | | TOIN | | [...] one tablet | | | DOCUSATE | 3306070726 | Laurance W | | MG CAPS | by mouth | | | SODIUM | 0 | Lila MD | | | at bedtime | | | | | | + + + + + + + + | BACTRIM DS | 1 by mouth | | | TRIMETHOPR | 4039635294 | Laurance W | | 800-160 | twice a | | | IM-SULFAME | 1 | Lila MD | | MG TABS | day for 3 | | | THOXAZOLE | | | | | days | | | | | | + + + + + + + + | RELION PEN | | | | INSULIN | 2246363225 | Ambrose | | NEEDLES | | | | PEN NEEDLE | 4 | Ankur DNP | | 31G X 8 MM | | | | | | EVP | + + + + + + + + | VICTOZA 18 | .6 mg x 1 | | | LIRAGLUTID | 9429984172 | Ambrose | | MG/3ML | week then | | | E | 2 | Ankur DNP | | SOPN | 1.2 mg | | | | | EVP | | | daily per | | | | | | | | week | | | | | | + + + + + + + + | ASPIRIN 81 | one time | | | ASPIRIN | 8021760230 | Mariano | | MG ORAL | [...] | | | | | | | EVP | + + + + + + + + | DIABETIC | 1 pair per | | | DIABETIC | | [facility] | | ORTHOTIC | custom | | | ORTHOTIC | | Ankur DNP | | SHOES | fit from | | | SHOES | | EVP | | | podiatry | | | | | | | | E11.65, | | | | | | | | e11.21 | | | | | | + + + + + + + + | GABAPENTIN | two times | | | GABAPENTIN | 9865470201 | Mariano | | 100 MG | per day | | | | 1 | Ariella | | CAPS | | | | | | CCMA | + + + + + + + + | MISC | | | | MISC | | Ambrose | | | | | | | | Ankur DNP | | | | | | | | EVP | + + + + + + + + | BIOTIN 1 | | | | BIOTIN | 1899209362 | Kali | | MG CAPS | | | | | 2 | Hakeem DPM | + + + + + + + + | PIOGLITAZO | Take 1 tab | | | PIOGLITAZO | 8767499294 | Jesus | | NE HCL 15 [...] two times | | | MECLIZINE | 3973110910 | Mariano | | HCL 25 MG [...] take 1 | | | ASPIRIN | 7519249787 | Mariano | | 325 MG | tablet | | | | 1 | Ariella | | TBEC | daily | | | | | CCMA | + + + + + + + + | PIOGLITAZO | Take 1 tab | | | PIOGLITAZO | 8235743716 | Christen Ramirez | | NE HCL 15 | by mouth | | | NE HCL | 6 | [place] | | MG TABS | one time | | | | | EVP | | | per day in | | | | | | | | the AM | | | | | | + + + + + + + + | NEURONTIN | take 1 tab | | | GABAPENTIN | 8389324218 | Bailey W | | 300 MG | po tid | | | | 4 | Lila MD | | CAPS | | | | | | | + + + + + + + + | DIOVAN 160 | one time | | | VALSARTAN | 2270578149 | Mariano | | MG TABS | per day | | | | 4 | Ariella | | | | | | | | CCMA | + + + + + + + + | ASPIRIN | take 1 | | | ASPIRIN | 1016518757 | Laurance W | | 325 MG | tablet [...] 1 pill | | | CEPHALEXIN | 1995893664 | Tiesha | | MG CAPS | twice a | | | | 1 | Maria Isabel MD | | | day for 7 | | | | | | | | days | | | | | | + + + + + + + + | GABAPENTIN | one tablet | | | GABAPENTIN | 2495901483 | Laurance W | | 100 MG [...] 1 tab | | | MECLIZINE | 3377961799 | Franciscoance W | | HCL 25 MG | three | | | HCL | 0 | Lila MD | | TABS | times per | | | | | | | | day | | | | | | + + + + + + + + | NITROFURAN | Take one | | | NITROFURAN | 7967780664 | Edna | | TOIN | capsule [...] 0.02 ml | | | EXENATIDE | 9395688686 | Bailey W | | MCG PEN 5 | injection | | | | 1 | Lila MD | | MCG/0.02ML | two times | | | | | | | SOPN | per day | | | | | | + + + + + + + + | FLUCONAZOL | take one | | | FLUCONAZOL | 9442304093 | Franciscoance W | | E 150 MG | tablet PO | | | E | 1 | Lila MD | | TABS | x 1 repeat | | | | | | | | in 3 days | | | | | | + + + + + + + + | PROCHLORPE | Insert one | | | PROCHLORPE | 2999145538 | Ambrose | | RANDYINE 25 | | | | RAZINE | 0 | Ankur DNP | | MG SUPP | suppositor | | | | | EVP | | | y rectally | | [...] tab two | | | CILOSTAZOL | 3818101724 | Kali | | 100 MG | times per | | | | 1 | Palacio DPM | | TABS | day | | | | | | + + + + + + + + | RIOMET 500 | 10ml's two | | | METFORMIN | 8652343883 | Bailey W | | MG/5ML | [...] D | | | | CHOLECALCI | 9280941633 | Kali | | 1000 UNIT | | | | FEROL | 1 | Palacio DPM | | TABS | | | | | | | + + + + + + + + | NEURONTIN | take 1 tab | | | GABAPENTIN | 8196776463 | Christen Ramirez | | 300 MG | po tid . | | | | 4 | [place] | | CAPS | Pt states | | | | | EVP | | | as needed | | | | | | + + + + + + + + | BYETTA 5 | Take as | | | EXENATIDE | 5302762543 | Christen Ramirez | | MCG PEN 5 | directed | | | | 1 | [place] | | MCG/0.02ML | once daily | | | | | EVP | | SOPN | in the AM | | | | | | + + + + + + + + | STROKE | | | | STROKE | | Franciscoance W | | PREVENTION | | | | PREVENTION | | Lila MD | | | | | | | | | + + + + + + + + | METFORMIN | two times | | | METFORMIN | 0926538694 | Mariano | | HCL 1000 | per day | | | HCL | 5 | Ariella | | MG TABS | | | | | | CCMA | + + + + + + + + | GABAPENTIN | Take 2 | | | GABAPENTIN | 4052336240 | Bailey W | | 300 MG [...] | | | | | | | EVP | + + + + + + + + | LYRICA 50 | TAKE ONE | | | PREGABALIN | 9039750240 | Kesha | | MG CAPS | [...] Take one | | | BIOTIN | 1603151538 | Lorri | | MG CAPS | daily in | | | | 2 | Prabhakar | | | the AM | | | | | NCMA | + + + + + + + + | LIPITOR 20 | take 1 | | | ATORVASTAT | 5659911596 | Ambrose | | MG TABS | tablet by | | | IN CALCIUM | 3 | Ankur DNP | | | mouth | | | | | EVP | | | daily in | | | | | | | | the | | | | | | | | evening | | | | | | + + + + + + + + | BD INSULIN | Use to | | | INSULIN | 4810360647 | Ambrose | | SYRINGE | inject | | | SYRINGE-NE | 6 | Ankur DNP | | ULTRAFINE | insulin 5 | | | EDLE U-100 | | EVP | | 29G X 1/2" | times per | | | | | | | 0.5 ML | day | | | | | | + + + + + + + + | RELION | Use to | | | GLUCOSE | 1725688338 Thien Boggs | | BLOOD | check | | | BLOOD | 4 | Ankur DNP | | GLUCOSE | blood | | | | | EVP | | TEST STRP | sugars | [...] use with | | | BLOOD | 3524709491 | Ambrose | | PRIME | test | | | GLUCOSE | 2 | Ankur DNP | | MONITOR | strips to | | | MONITORING | | EVP | | DYLAN | test BG | | | SUPPL | | | | | daily | | | | | | + + + + + + + + | RELION | use when | | | GLUCOSE | 9049736217 | Ambrose | | BLOOD | testing BG | | | BLOOD | 4 | Ankur DNP | | GLUCOSE | | | | | | EVP | | TEST STRP | | | | | | | + + + + + + + + | VALSARTAN | Take one | | | VALSARTAN | 7194464127 | Ambrose | | 160 MG | tablet | | | | 7 | Ankur DNP | | TABS | daily in | | | | | EVP | | | the AM | | | | | | + + + + + + + + | BASAGLAR | 68 Units | | | INSULIN | 5308893685 | Ambrose | | KWIKPEN | every | | | GLARGINE | 9 | Ankur DNP | | 100 | morning | | | | | EVP | | UNIT/ML | (34 units | | | | | | | SOPN | on each | | | | | | | | side) | | | | | | + + + + + + + + | NOVOLOG | 12 Units | | | INSULIN | 3926313662 | Ambrose | | 100 | before | | | ASPART | 1 | Ankur DNP | | UNIT/ML | meals | | | | | EVP | | SOLN | [id number] | | [...] 65 Units | | | INSULIN | 6044024925 | Amb[facility] | | KWIKPEN | every | | | GLARGINE | 9 | Ankur DNP | | 100 | morning | | | | | EVP | | UNIT/ML | | | | | | | | SOPN | | | | | | | + + + + + + + + | BASAGLAR | 60 Units | | | INSULIN | 1764333606 | Ambrose | | KWIKPEN | every | | | GLARGINE | 9 | Ankur DNP | | 100 | morning | | | | | EVP | | UNIT/ML | | | | | | | | SOPN | | | | | | | + + + + + + + + | MIRALAX | 17 gm | | | POLYETHYLE | 5837811796 | Ambrose | | POWD | daily | | | NE GLYCOL | 2 | Ankur DNP | | | stirred | | | 3350 | | EVP | | | into 4-8 | | [...] 1 pill | | | DOCUSATE | 9797895674 | Ambrose | | MG CAPS | twice | | | SODIUM | 0 | Ankur DNP | | | daily for | | | | | EVP | | | soft | | | | | | | | stools | | | | | | + + + + + + + + | LYRICA 100 | 1 capsule | | | PREGABALIN | 8952046196 | Ambrose | | MG CAPS | three | | | | 8 | Ankur DNP | | | times | | | | | EVP | | | daily for | | | | | | | | neuropathy | | | | | | + + + + + + + + | LASIX 80 | 1 tab by | | | FUROSEMIDE | 9524090635 | Ambrose | | MG TABS | mouth one | | | | 5 | Ankur DNP | | | time per | | | | | EVP | | | day in the | | | | | | | | AM | | | | | | + + + + + + + + | VITAMIN D | Take one | | | CHOLECALCI | 3528063883 | Ambrose | | 1000 UNIT | tablet | | | FEROL | 1 | Ankur DNP | | TABS | daily in | | | | | EVP | | | the AM | | | | | | + + + + + + + + | PLAVIX 75 | 1 tab by | | | CLOPIDOGRE | 8058206133 | Ambrose | | MG TABS | mouth one | | | L | 1 | Ankur DNP | | | time per | | | BISULFATE | | EVP | | | day in the | | | | | | | | evening | | | | | | + + + + + + + + | MECLIZINE | One tab by | | | MECLIZINE | 2210264754 | Ambrose | | HCL 25 MG | mouth | | | HCL | 0 | Ankur DNP | | TABS | three | | | | | EVP | | | times per | | | | | | | | day | | | | | | + + + + + + + + | POTASSIUM | Take one | | | POTASSIUM | 2292476052 | Ambrose | | CHLORIDE | cap daily | | | CHLORIDE | 1 | Ankur DNP | | ER 10 MEQ | in the AM | | | | | EVP | | CR-CAPS | | | | | | | + + + + + + + + | GLIPIZIDE | Take 1 | | | GLIPIZIDE | 9897738886 | Ambrose | | XL 2.5 MG | tablet | | | | 1 | Ankur DNP | | [id number] | p.o. | | | | | EVP | | | q.a.m. | | | | | | + + + + + + + + | BD INSULIN | Use 5 | | | INSULIN | 1053417621 | [facility]rose | | SYRINGE | times | | | SYRINGE-NE | 1 | Ankur DNP | | ULTRAFINE | daily to | | | EDLE U-100 | | EVP | | 29G X 1/2" | inject [...] Use daily | | | INSULIN | 8804665031 | Ambrose | | NEEDLE | to inject | | | PEN NEEDLE | 0 | Ankur DNP | | ULTRAFINE | insulin | | | | | EVP | | 29G X | | | | | | | | 12.7MM | | | | | | | + + + + + + + + | PANTOPRAZO | Take one | | | PANTOPRAZO | 5110083908 | Ambrose | | LE SODIUM | tablet by | | | LE SODIUM | 8 | Ankur DNP | | 40 MG TBEC | mouth once | | | | | EVP | | | daily | | | | | | + + + + + + + + | OMEPRAZOLE | Take one | | | OMEPRAZOLE | 7348084781 | Ambrose | | 40 MG | by mouth | | | | 0 | Ankur DNP | | CPDR | one time | | | | | EVP | | | per day | | [...] Take one | | | BIOTIN | 6842879577 | Ambrose | | MG CAPS | daily in | | | | 2 | Ankur DNP | | | the AM | | | | | EVP | + + + + + + + + | COLACE 100 | 1 pill BID | | | DOCUSATE | 9172395178 | Ambrose | | MG CAPS | | | | SODIUM | 0 | Ankur DNP | | | | | | | | EVP | + + + + + + + + | NYSTATIN-T | Apply thin | | | NYSTATIN-T | 0131634019 | Ambrose | | RIAMCINOLO | layer to | | | RIAMCINOLO | 5 | Ankur DNP | | NE | affected | | | NE | | EVP | | 690271-3.1 | area BID | | | | | | | UNIT/GM-% | prn for | | | | | | | CREA | itching | | | | | | + + + + + + + + | RELION PEN | | | | INSULIN | 0182389195 | David | | NEEDLES | | | | PEN NEEDLE | 4 | Mark DO | | 31G X 8 MM | | | | | | | + + + + + + + + | NOVOLOG | 3U before | | | INSULIN | 2575439397 | David | | 100 | lunch [...] 56 Units | | | INSULIN | 3208755053 | David | | GRACEIKPEN | every | | | GLARGINE | 9 | Mark SRIVASTAVA | | 100 | morning | | | | | | | UNIT/ML | | | | | | | | SOPN | | | | | | | + + + + + + + + | PEN | Use one | | | PEN | | David | | NEEDLES | pen needle | | | NEEDLES | | Mark DO | | FOR | every | [...] 1 tab | | | PREGABALIN | 4484148243 | Christen Escudero. | | MG CAPS | three | | | | 8 | [place] | | | times per | | | | | EVP | | | day. Pt | | | | | | | | states as | | | | | | | | needed | | | | | | + + + + + + + + | LYRICA 100 | 1 tid | | | PREGABALIN | 4380420580 | Christen Escudero. | | MG CAPS | | | | | 8 | [place] | | | | | | | | EVP | + + + + + + + + | VICTOZA 18 | .6 mg x 1 | | | LIRAGLUTID | 9830054078 | Christen Escudero. | | MG/3ML | week then | | | E | 2 | [place] | | SOPN | 1.2 mg | | | | | EVP | | | daily per | | | | | | | | week | | | | | | + + + + + + + + | HUMALOG | 3U before | | | INSULIN | 3934039780 | Christen Ramirez | | 100 | lunch and | | | LISPRO | 1 | [place] | | UNIT/ML | 5U before | | | | | EVP | | SOLN | Dinner | | [...] Inject 0.6 | | | LIRAGLUTID | 5857539381 | Christen Ramirez | | MG/3ML | mg daily | | | E | 2 | [place] | | SOPN | | | | | | EVP | + + + + + + + + | BASAGLAR | 56 Units | | | INSULIN | 6246949846 | Christen Ramirez | | KWIKPEN | by mouth | | | GLARGINE | 9 | [place] | | 100 | every | | | | | EVP | | UNIT/ML | morning | | | | | | | SOPN | | | | | | | + + + + + + + + | VICTOZA 18 | 5 unit AM | | | LIRAGLUTID | 7332195443 | Christen Ramirez | | MG/3ML | and 5 | | | E | 2 | [place] | | SOPN | units PM | | | | | EVP | + + + + + + + + | BASAGLAR | 1 pen | | | INSULIN | 6148088010 | Christen Ramirez | | KWIKPEN | every 3 | | | GLARGINE | 9 | [place] | | 100 | days 56 | | | | | EVP | | UNIT/ML | units q | | | | | | | SOPN | Day | | | | | | + + + + + + + + | BYETTA 5 | Take as | | | EXENATIDE | 9792826213 | Christen Ramirez | | MCG PEN 5 | directed | | | | 1 | [place] | | MCG/0.02ML | once daily | | | | | EVP | | SOPN | in the AM | | | | | | + + + + + + + + | LANTUS 100 | 56 units | | | INSULIN | 5733073026 | Kaykay | | UNIT/ML | qAM | | | GLARGINE | 3 | Mora DO | | SOLN | | | | | | | + + + + + + + + | SUPREP | mix and | | | NA | 0628104732 | Emeka | | BOWEL PREP | [...] <150 - | | | INSULIN | 9892391525 | Tiesha | | 100 | No [...] Use daily | | | GLUCOSE | 2657895834 | Tiesha | | BLOOD | to [...] per | | | FOOT CARE | 9566902937 | Tiesha | | INSOLES | custom [...] 1 pill | | | CEPHALEXIN | 6689564991 | Pako | | MG CAPS | twice a | | | | 1 | Middlekauf | | | day for 7 | | | | | f EVP | | | days | | | | | | + + + + + + + + | BYETTA 5 | 0.02 ml | | | EXENATIDE | [id number] | Bailey W | | MCG PEN 5 | injection | | | | 1 | Lila MD | | MCG/0.02ML | two times | | | | | | | SOPN | per day | | | | | | + + + + + + + + | LYRICA 100 | 1 tab | | | PREGABALIN | [id number] | Bailey W | | MG CAPS | three | | | | 8 | Lila MD | | | times per | | | | | | | | day | | | | | | + + + + + + + + | DRAMAMINE | take 1-2 | | | DIMENHYDRI | [id number] | Bailey W | | 50 MG [...] Use 5 | | | INSULIN | [id number] | Bailey W | | SYRINGE | times | | | SYRINGE-NE | 1 | Lila MD | | ULTRAFINE | daily to | | | EDLE U-100 | | | | 29G X /" | inject | | | | | [...] tab by | | | CLOPIDOGRE | [id number] | Bailey W | | MG TABS | mouth one | | | L | 1 | Lila MD | | | time per | | | BISULFATE | | | | | day | | | | | | + + + + + + + + | LANTUS 100 | 25 units | | | INSULIN | [id number] | Laurance W | | UNIT/ML | two times | | | GLARGINE | 3 | Lila MD | | SOLN | per day | | | | | | + + + + + + + + | LASIX 80 | 1 tab by | | | FUROSEMIDE | [id number] | Laurance W | | MG TABS | mouth one | | | | 5 | Lila MD | | | time per | | | | | | | | day | | | | | | + + + + + + + + | FUROSEMIDE | 1 tab one | | | FUROSEMIDE | 2051658731 | Laurance W | | 40 MG | time per | | | | 5 | Lila MD | | TABS | day | | | | | | + + + + + + + + | BUSPIRONE | 1 TAB | | | BUSPIRONE | 7831129724 | Laurance W | | HCL 7.5 MG | three | | | HCL | 1 | Lila MD | | TABS | times per | | | | | | | | day | | | | | | + + + + + + + + | COLACE 100 | 1 tab by | | | DOCUSATE | [id number] | Laurance W | | MG CAPS | mouth | | | SODIUM | 0 | Lila MD | | | daily at | | | | | | | | bedtime | | | | | | + + + + + + + + | BACTRIM DS | 1 by mouth | | | TRIMETHOPR | 1269796810 | Laurance W | | 800-160 | twice a | | | IM-SULFAME | 1 | Lila MD | | MG TABS | day for 3 | | | THOXAZOLE | | | | | days | | | | | | + + + + + + + + | LYRICA 50 | Take 1 tab | | | PREGABALIN | [id number] | Laurance W | | MG CAPS [...] tab one | | | METFORMIN | 4417612563 | Laurance W | | XR 500 MG | time per | | | HCL | 3 | Lila MD | | VY27G-FEG | day | | | | | | + + + + + + + + | CILOSTAZOL | 1 tab two | | | CILOSTAZOL | [id number] | Laurance W | | 100 MG | times per | | | | 1 | Lila MD | | TABS | day | | | | | | + + + + + + + + | OMEPRAZOLE | Take one | | | OMEPRAZOLE | 1583285498 | Laurance W | | 40 MG [...] take 1 | | | ATORVASTAT | 8192356607 | Laurance W | | MG TABS | tablet by | | | IN CALCIUM | 3 | Lila MD | | | mouth | | | | | | | | daily | | | | | | + + + + + + + + | MECLIZINE | 1 tab | | | MECLIZINE | 2485213706 | Laurance W | | HCL 25 MG | three | | | HCL | 0 | Lila MD | | TABS | times per | | | | | | | | day | | | | | | + + + + + + + + | LANTUS 100 | 56 units | | | INSULIN | [id number] | Laurance W | | UNIT/ML | in the | | | GLARGINE | 3 | Lila MD | | SOLN | morning | | | | | | + + + + + + + + | ONDANSETRO | 1 tab | | | ONDANSETRO | 2461219356 | Laurance W | | N HCL 4 MG | every 4 | | | N HCL | 3 | Lila MD | | TABS | hours | | | | | | + + + + + + + + | PIOGLITAZO | Take 1 tab | | | PIOGLITAZO | 1040827730 | Franciscoance W | | NE HCL 15 | by mouth | | | NE HCL | 6 | Lila MD | | MG TABS | one time | | | | | | | | per day | | | | | | + + + + + + + + | RELION | Use to | | | GLUCOSE | [id number] | Bailey W | | BLOOD | test BG | | | BLOOD | 4 | Lila MD | | GLUCOSE | one time | | | | | | | TEST STRP | per day | | | | | | + + + + + + + + | GABAPENTIN | Take 2 | | | GABAPENTIN | 5263029924 | Laurance W | | 300 MG | capsules | | | | 5 | Lial MD | | CAPS | in the [...] TAB one | | | VALSARTAN | 8438945489 | Franciscoance W | | 160 MG | time per | | | | 8 | Lila MD | | TABS | day | | | | | | + + + + + + + + | LYRICA 50 | TAKE ONE | | | PREGABALIN | 0196369539 | Laurance W | | MG CAPS [...] 0.2 ml | | | EXENATIDE | 8660502972 | Laurance W | | MCG PEN 5 | injection | | | | 1 | Lila MD | | MCG/0.02ML | two times | | | | | | | SOPN | per day | | | | | | + + + + + + + + | VICTOZA 18 | 1.2 mg | | | LIRAGLUTID | [id number] | Laurance W | | MG/3ML | injected | | | E | 2 | Lila MD | | SOPN | martin | | | | | | + + + + + + + + | KEFLEX 500 | one po TID | | | CEPHALEXIN | [id number] | Susanna | | MG CAPS | | | | | 1 | Gianfranco MD | + + + + + + + + | FLUCONAZOL | take one | | | FLUCONAZOL | 5784792081 | Susanna | | E 150 MG | tablet PO | | | E | 1 | Gianfranco MD | | TABS | x 1 repeat | | | | | | | | in 3 days | | | | | | + + + + + + + + | LYRICA 50 | 1 tab | | | PREGABALIN | [id number] | Bailey W | | MG CAPS | three | | | | 8 | Lila MD | | | times per | | | | | | | | day | | | | | | + + + + + + + + | GABAPENTIN | Take 2 | | | GABAPENTIN | [id number] | Bailey W | | 300 MG [...] tab one | | | DULOXETINE | [id number] | Laurance W | | HCL 30 MG | time per | | | HCL | 6 | Lila MD | | CPEP | day | | | | | | + + + + + + + + | RIOMET 500 | 10ml's two | | | METFORMIN | [id number] | Laurance W | | MG/5ML | [...] TAB one | | | VALSARTAN | [id number] | Laurance W | | MG TABS | time per | | | | 4 | Lila MD | | | day | | | | | | + + + + + + + + | MECLIZINE | One tab by | | | MECLIZINE | [id number] | Laurance W | | HCL 25 [...] take 2 | | | GABAPENTIN | [id number] | Laurance W | | 300 MG [...] tab one | | | VALSARTAN | [id number] | Laurance W | | MG TABS | time per | | | | 4 | Lila MD | | | day | | | | | | + + + + + + + + | VICTOZA 18 | 0.6 mg | | | LIRAGLUTID | [id number] | Laurance W | | MG/3ML | [...] tab one | | | SITAGLIPTI | [id number] | Laurance W | | 100 MG | time per | | | N | 2 | Lila MD | | TABS | day | | | PHOSPHATE | | | + + + + + + + + | GABAPENTIN | 2 tabs two | | | GABAPENTIN | [id number] | Laurance W | | 300 MG | times per | | | | 5 | Lila MD | | CAPS | day | | | | | | + + + + + + + + | DIOVAN 160 | 1 by mouth | | | VALSARTAN | [id number] | Laurance W | | MG TABS | every day | | | | 4 | Lila MD | + + + + + + + + | GABAPENTIN | 1 tab at | | | GABAPENTIN | [id number] | Laurance W | | 100 MG [...] 28 units | | | INSULIN | 7992276817 | Laurance W | | UNIT/ML | two times | | | GLARGINE | 3 | Llia MD | | SOLN | per day | | | | | | + + + + + + + + | LISINOPRIL | take 1 | | | LISINOPRIL | [id number] | Rogers | | 20 MG | tablet by | | | | 1 | Laith LUIS | | TABS | mouth | | | | | | | | daily | | | | | | + + + + + + + + | LANTUS 100 | 56 units | | | INSULIN | [id number] | Bailey W | | UNIT/ML | daily | | | GLARGINE | 3 | Lila MD | | SOLN | | | | | | | + + + + + + + + | GABAPENTIN | 1 by mouth | | | GABAPENTIN | 9036976261 | Bailey W | | 100 MG [...] | One | | | ERGOCALCIF | [id number] | Laurance W | | QUANG 87456 | capsule by | | | QUANG [...] by mouth | | | LISINOPRIL | [id number] | Laurance W | | 5 MG TABS | one time | | | | 1 | Lila MD | | | per day | | | | | | + + + + + + + + | RIOMET 500 | 10ml QAM | | | METFORMIN | [id number] | Laurance W | | MG/5ML | Liquid due | | | HCL | 1 | Lila MD | | SOLN | to | | | | | | | | Dysphagia | | | | | | + + + + + + + + | COLACE 100 | one tablet | | | DOCUSATE | [id number] | Laurance W | | MG CAPS | by mouth | | | SODIUM | 0 | Lila MD | | | at bedtime | | | | | | + + + + + + + + | MECLIZINE | 1 by mouth | | | MECLIZINE | 2532963046 | Laurance W | | HCL 25 [...] one tablet | | | METFORMIN | [id number] | Laurance W | | HCL 1000 | by mouth | | | HCL | 5 | Lila MD | | MG TABS | twice a | | | | | | | | day | | | | | | + + + + + + + + | ASPIRIN 81 | 1 by mouth | | | ASPIRIN | [id number] | Laurance W | | MG ORAL | every day | | | | 5 | Lila MD | | TABLET | | | | | | | + + + + + + + + | GABAPENTIN | one tablet | | | GABAPENTIN | [id number] | Laurance W | | 100 MG [...] states | | Critical | | Lorri Aki | | | she had | | [...] | | | | | Active | Raumakitcarolyn | | | | | | | EVP | + + + + + + [...] +------+------+-------+------+-------+------+ + + + | Office Visit: Ortho [facility] R Knee Pain | + + + + + +---+---+---+ + | | ULTRASNDRS | [facility] | | | | Ultrasound | | | LT | Orthopedic | | | | | | | | s EXAM: | | | | (unspecifi | | | | Right Knee | | | | ed) | | | | | | | | results | | | | Ultrasound | | | | | | | | Guided | | | | | | | | InjectionI | | | | | | | | NDICATION: | | | | | | | | Right | | | | | | | | knee pain | | | | | | | | secondary | | | | | | | | to OA | | | | | | | | PROCEDURE: | | | | | | | | The | | | | | | | | risks, | | | | | | | | benefits, | | | | | | | | alternativ | | | | | | | | es and the | | | | | | | | | | | | | | | | complicati | | | | | | | | ons of the | | | | | | | | | | | | | | | | injections | | | | | | | | were | | | | | | | | discussed | | | | | | | | with | | | | | | | | patient. | | | | | | | | The area | | | | | | | | was | | | | | | | | cleaned | | | | | | | | with | | | | | | | | chlorhexid | | | | | | | | ine and | | | | | | | | alcohol. | | | | | | | | Under the | | | | | | | | ultrasound | | | | | | | | guidance | | | | | | | | about 25 | | | | | | | | cc of the | | | | | | | | normal | | | | | | | | synovial | | | | | | | | fluid was | | | | | | | | aspirated | | | | | | | | and then | | | | | | | | 8-cc of | | | | | | | | 0.5 % | | | | | | | | bupivacain | | | | | | | | e without | | | | | | | | epinephrin | | | | | | | | e and 2-cc | | | | | | | | of | | | | | | | | Kenalog 40 | | | | | | | | mg per mL | | | | | | | | | | | | | | | | (total-10c | | | | | | | | c) was | | | | | | | | injected | | | | | | | | in the | | | | | | | | right knee | | | | | | | | joint by | | | | | | | | a lateral | | | | | | | | approach. | | | | | | | | Patient | | | | | | | | tolerated | | | | | | | | the | | | | | | | | procedure | | | | | | | | without | | | | | | | | any | | | | | | | | complicati | | | | | | | | ons. | | | | | + + + +---+---+---+ + | | SMOK | never | | | | Tobacco | | | STATUS | smoker | | | | use status | | | | | | | | CPHS | + + + +---+---+---+ + | | MEDS | Done | [...] | | ) | + + + +---+---+---+ + | | ORTHIMAGIN | [facility] | | | | Imaging | | | G | Orthopedic | | | | test | | | | s XR | | | | results | | | | 12/26/2017 | | | | pertinent | | | | Right | | | | to | | | | Knee | | | | orthopedic | | | | 4VINDICATI | | | | s | | | | ON: Right | | | | | | | | Knee | | | | | | | | PainFINDIN | | | | | | | | GS:No | | | | | | | | acute | | | | | | | | fractures/ | | | | | | | | dislocatio | | | | | | | | ns are | | | | | | | | identified | | | | | | | | .No opaque | | | | | | | | | | | | | | | | intraartic | | | | | | | | ular loose | | | | | | | | body is | | | | | | | | seenThere | | | | | | | | is | | | | | | | | ___moderat | | | | | | | | e__ joint | | | | | | | | space | | | | | | | | narrowing | | | | | | | | mainly | | | | | | | | over the | | | | | | | | ____medial | | | | | | | | __ | | | | | | | | compartmen | | | | | | | | t of the | | | | | | | | right | | | | | | | | knee.No | | | | | | | | acute soft | | | | | | | | tissue | | | | | | | | abnormalit | | | | | | | | ies are | | | | | | | | detected.N | | | | | | | | o definite | | | | | | | | | | | | | | | | suprapatel | | | | | | | | lar | | | | | | | | effusion | | | | | | | | of the | | | | | | | | ___right__ | | | | | | | | _ knee is | | | | | | | | seen on | | | | | | | | lateral | | | | | | | | view.IMPRE | | | | | | | | SSION: | | | | | | | | __There is | | | | | | | | | | | | | | | | moderate__ | | | | | | | | _ | | | | | | | | degenerati | | | | | | | | ve changes | | | | | | | | in the | | | | | | | | right knee | | | | | | | | as | | | | | | | | discussed | | | | | | | | above... | | | | | + + + +---+---+---+ + + + | Rx Refill: eRx Request for ATORVASTATIN 20MG TAB | + + + +--------+ +---+---+---+ + | | ESM_RR | [id number] | | | B | e-scripts | | | | 43`ATORVAS | | | | messenger | | | | TATIN 20MG | | | | refill | [...] | | | | | | | `0`05/21/ | | | | | | | | 017`11/12/ | | | | | | | | 2017`Madisyn | | | | | | | | rt - | | | | | | | | [place]*` | | | | | | | | [id number] | | | | | | | | `[id number] | | | | | | | | 54``ATORVA | | | | | | | [...] + +--------+-----+---+---------+---+ + | | HGBA1C | 7.1 | % | 4.6-6.2 | H | Hemoglobin | | | | | | | | | | | | | | | | A1c/Hemogl | | | | | | | | obin.total | | | | | | | | in Blood | + +--------+-----+---+---------+---+ + + + | Office Visit: 3 mo f/u DM | + + + + +--------+---+---+---+ + | | MMSE | 0 | | | | Assessment | | [...] | + + +--------+---+---+---+ + | | BLDGLUCMON | 4 | | | | blood | | | IT | | | | | glucose | | | | | | | | monitoring | + + +--------+---+---+---+ + | | SMOK | never | | | | Tobacco | | | STATUS | smoker | | | | use status | | | | | | | | CPHS | + + +--------+---+---+---+ + Plan of Care + + + + | Type | Date | Detail | + + + + | Appointment | 01:00 PM | Hector Armendariz DPM, [address] | | | | [address], | | | | [place], [address], | | | | | + + + + | Appointment | 02:15 PM | Ambrose Pascual DNP EVP, [address] | | | | [facility] [address], | | | | [place], [address], | | | | | + + + + | Referral | | Ophthalmology Consult | | | | Huong Rose, | | | | [address] [place] [address], | | | | [place], [address] | | | | | + + + + | Referral | | Orthopedic Consult | | | | Jae Osullivan | | | | Surg, [address], | | | | [place], [address] | | | | | + + + + | Referral | | Ophthalmology Consult | | | | Huong Rose, | | | | [address], [place], | | | | [place], [address] | | | | | + + + + | Referral | | Orthopedic Consult | | | | [facility] [place] [facility] | | | | Surg, [address], | | | | [place], [address] | | | | | + + + + | Referral | | Physical Therapy Evaluation | | | | [facility], [address] | [address], [place], [address] | | | | | | | | | + + + + | Referral | | Physical Therapy Evaluation | | | | [facility], [address] | | | [address], [place], [address] | | | | | | | | | + + + + | Referral | | Podiatry Consult | | | | Hector Armendariz, | | | | [address] | | | | [address], [place], [place], | | | | [address] | | | | | + + + + | Referral | | Podiatry Consult | | | | Hector Armendariz, | | | | [address] | | | | [address], [place], [place], | | | | [address] | | | | | + + + + | Referral | | Ophthalmology Consult | | | | Huong Rose, | | | | [address], [place], | | | | [place], [address] | | | | | + + + + | Referral | | Nephrology Evaluation | | | | Larry Galo, | | | | [address], | | | | [address], [place], [address] | | | | | | | | | + + + + | Referral | | Nephrology Evaluation | | | | Larry Galo, | | | | [address], | | | | [address], [place], [address] | | | | | | | | | + + + + | Referral | | Ophthalmology Consult | | | | Huong Rose, | | | | [address], [place], | | | | [place], [address] | | | | | + + + + | Referral | | [facility] Head-WWO Con | | | | Dian Atkins, [address], | | | | [place], [address] | | | | | + + + + | Referral | | JUAN FRANCISCO Leigh | | | | Dian Atkins, [address] | | | [address], | | | | [place], [address] | | | | | + + [...] | + + + + + | CPT-80661 10429 | XR Knee WgtB Bilat | | | | | AP W 1-2V-Rt | | | + + + + + | [id number] | Overweight | | | + + + + + | CPT-05706 | Adm 1st Inj No | | | | | counseling or >18 | | | + + + + + | CPT-10146 | Prevnar 13 | | | | | (Pneumococcal >7 | | | + + + + + | [id number] | Overweight | | | + + + + + | CPT-09751 | Glucose by monitor | | | + + + + + | [id number] | Overweight | | | + + + + + | [id number] | Overweight | | | + + + + + | [id number] | Overweight | | | + + + + + | CPT-97202 | IV infusion -1st hr | | | | | (Rehydration) | | | + + + + + | CPT-64181 | Glucose by monitor | | | + + + + + | CPT-72999 | UA Dipstick | | | + + + + + | CPT-36476 | UA Dipstick | | | + + + + + | CPT-35584 | Initial Psych | | | | | Evaluation | | | + + + + + | CPT-87479 | [facility], [address] or | | | | | more [address] | | | + + + + [...] | + + + + + | CPT-25518 | Trim Skin Lesions | | | | | [address] | | | + + + + + +---+ + | | Order excluded from report: | +---+ + + + + + + | VIT D HYDR 52462 | Vit D, 25 hydroxy | | [...]
--- OUTSIDE RECORDS SUMMARY | ~2019-03-25 | XMS | Continuity of Care Document ---
Demographics + + + | Address | [address] | | | [place] [address] | + + + | Home Phone | | + + + | Preferred Language | Unknown | + + + | Marital Status | Unknown | + + + | Roman Catholic Affiliation | Unknown | + + + | Race | Unknown | + + + | Ethnic Group | Unknown | + + + Author + + + | Author | [facility] | + + + | Organization | [facility] | + + + | Address | [address] | | | [place] [address] | + + + | Phone | Unavailable | + + + Support + + + + + | Name | Relationship | Address | Phone | + + + + + | Provider, ED | Caregiver | [address] | | | | [place] | | | | | [address] | | + + + + + | Mahamed Duke | Caregiver | Emergency | | | DO | | [facility], | | | | | [place] [address] | | + + + + + | EVAN Florez | Caregiver | [facility] | | | [place] | | Medical | | | | | [facility], [place] | | | | | [address] | | + + + + + | DOLORES DIANA | Next Of Kin | [address] | | | | | [place] [address] | | + + + + + Care Team Providers + + + + | Care Screed Person Name | Role | Phone | + + + + | EVAN Florez | Unavailable | | + + + + Insurance Providers + + + + + | Payer Name | Policy Number | Subscriber Name | Relationship | + + + + + | [employer] | [id number] | JULI DIANA | SELF | | PLAN | | | | + + + + + | [employer] | [id number] | JULI DIANA | SELF | | PPO | | | | + + + + + Chief Complaint and Reason for Visit + + + | Reason for Visit | SUGAR LEVELS KEEP JUMPING HIGH | + + + Problems Active Medical [...] + +--------+ Medications Current Home Medications + +------+-------+-------+ + + +--------+ | Medicati | Dose | Units | Route | Directio | Days/Qty | Instruct | Start | | on | | | | ns | | ions | Date | + +------+-------+-------+ + + +--------+ | Atorvast | 1 | TAB | PO | Daily | 30 | | | | atin | | | | | | | | | (Lipitor | | | | | | | | | ) 20 MG | | | | | | | | | TAB | | | | | | | | + +------+-------+-------+ + + +--------+ | Clopidog | 75 | MG | PO | Daily | | | | | [...] | | | | | | + +------+-------+-------+ + + +--------+ | Furosemi | 80 | MG | PO | Daily | | | | | de | | | | | | | | | (Lasix) | | | | | | | | | 80 MG | | | | | | | | | TAB | | | | | | | | + +------+-------+-------+ + + +--------+ | Gabapent | 2 | CAP | PO | Twice | | | | | in | | | | each day | | | | | (Neuront | | | | before | | | | | in) 300 | | | | meals | | | | | MG CAP | | | | | | | | + +------+-------+-------+ + + +--------+ | INSULIN | | [...] | | | | | | + +------+-------+-------+ + + +--------+ | Insulin | 50 | UNIT | SC | Once a | | | | | Glargine | | | | day in | | | | | ,Hum.Rec | | | | the | | | | | .Anlog | | | | morning | | | | | (LANTUS | | | | | | | | | SOLOSTAR | | | | | | | | | ) 100 | | | | | | | | | UNIT/ML | | | | | | | | | INSULN.P | | | | | | | | | EN | | | | | | | | + +------+-------+-------+ + + +--------+ | Potassiu | 10 | MEQ | PO | | | 2-3 TABS | | | m | | | | | | EVERY | | | Chloride | | | | | | WEEK | | | 10 MEQ | | | | | | | | | CAPCR | | | | | | | | + +------+-------+-------+ + + +--------+ | Pregabal | 100 | MG | PO | Three | | | | | in | | | | Times a | | | | | (Lyrica) | | | | Day | | | | | 100 MG | | | | | | | | | CAP | | | | | | | | + +------+-------+-------+ + + +--------+ | Valsarta | 160 | MG | PO | Daily | | | | | n | | | | | | | | | (Diovan) | | | | | | | | | 160 MG | | | | | | | | | TABLET | | | | | | | | + +------+-------+-------+ + + +--------+ Past Home Medications + + + + + | Medication | Directions | Ordered | Status | + + + + + | Albuterol (Ventolin | Every 4 Hours as | 05/30/13 | Discontinued | | Hfa) 90 Mcg Inh | Needed PRN | | | | Inh, 2 Puff Inh | Difficulty | | | | | Breathing | | | + + [...] | Discontinued | | Tabec, 325 Mg Po | | | | + + + + + | Biotin (Unknown | | Unknown | Discontinued | | Strength) Capsule | | | | | Capsule, Unknown | | | | | Dose | | | | + + + + + | Biotin 5 Mg Capsule | Daily | Unknown | Discontinued | | Capsule, 5 Mg Po | | | | + + + + + | Cilostazol 100 Mg | Twice Each Day | Unknown | Discontinued | | Tablet Tablet, 100 | | | | | Mg Po | | | | + + + + + | Ciprofloxacin Hcl | Twice Each Day For | 07/11/16 | Discontinued | | (Cipro) 250 Mg | infection | | | | Tablet Tablet, 250 | | | | | Mg Po | | | | + + + + + | Cefpodoxime | Twice Each Day | 07/16/16 | Discontinued | | Proxetil (Vantin) | | | | | 200 Mg Tab Tab, 200 | | | | | Mg Po | | | | + + + + + | Cephalexin | Four Times a Day | 09/14/14 | Discontinued | | Monohydrate | | | | | (Keflex) 500 Mg Cap | | | | | Cap, 500 Mg Po | | | | + + + + + | Ciprofloxacin | Twice Each Day | Unknown | Discontinued | | (Cipro) 250 Mg Tab | | | | | Tab, 250 Mg Po | | | | + + + + + | Ciprofloxacin | Twice Each Day | 06/28/13 | Discontinued | | (Cipro) 500 Mg Tab | | | | | Tab, 1 Tab Po | | | | + + + + + | Clindamycin Hcl | Every 6 Hours For | 05/08/15 | Discontinued | | (Cleocin Hcl) 300 | infection | | | | Mg Capsule Capsule, | | | | | 300 Mg Po | | | | + + + + + | Clindamycin Hcl | Q6H | Unknown | Discontinued | | (Cleocin) 300 Mg | | | | | Cap Cap, 300 Mg Po | | | | + + + + + | Clindamycin Hcl | | Unknown | Discontinued | | (Cleocin) 300 Mg | | | | | Cap Cap, 300 Mg Po | | | | + + + + + | Clonazepam | PRN ANXIETY | Unknown | Discontinued | | (Klonopin) 0.5 Mg | | | | | Tab Tab, 0.5 Mg Po | | | | + + + + + | Clonazepam | | Unknown | Discontinued | | (Klonopin) 0.5 Mg | | | | | Tab Tab, 0.5 Mg Po | | | | + + + + + | Dipyridamole/Aspiri | Twice Each Day | Unknown | Discontinued | | n (Aggrenox) 200 | | | | | Mg/25 Mg Capcr | | | | | Capcr, 1 Cap Po | | | | + + + + + | Docusate Sodium | Twice Each Day | Unknown | Discontinued | | (Colace) 100 Mg Cap | | | | | Cap, 200 Mg Po | | | | + + + + + | Exenatide (Byetta) | Twice Each Day | Unknown | Discontinued | | 600 Mcg/2.4 Ml | | | | | Pensyr Pensyr, 5 | | | | | Mcg Sc | | | | + + + + + | Furosemide (Lasix) | Daily | Unknown | Discontinued | | 40 Mg Tab Tab, 40 | | | | | Mg Po | | | | + + + + + | Gabapentin | At Bedtime | Unknown | Discontinued | | (Neurontin) 100 Mg | | | | | Cap Cap, 300 Mg Po | | | | + + + + + | Gabapentin | At Bedtime | Unknown | Discontinued | | (Neurontin) 300 Mg | | | | | Cap Cap, 3 Cap Po | | | | + + + + + | Insulin | Daily | Unknown | Discontinued | | Glargine,Hum.rec.an | | | | | log (Lantus) 100 | | | | | Unit/Ml Vial Vial, | | | | | 56 Units Subq | | | | + + + + + | Insulin Human | As Directed | Unknown | Discontinued | | Lispro (Humalog) | | | | | 100 Unit/Ml Inj | | | | | Inj, Units Subq | | | | + + + + + | Liraglutide | Before Dinner | Unknown | Discontinued | | (Victoza 2-Hira) 0.6 | | | | | Mg/0.1 Ml | | | | | Pen.injctr | | | | | Pen.injctr, 0 Mg Sc | | | | + + + + + | Lisinopril | Daily | Unknown | Discontinued | | (Zestril) 5 Mg Tab | | | | | Tab, 1 Tab Po | | | | + + + + + | Meclizine Hcl | Every 6 Hours PRN | 12/06/15 | Discontinued | | (Antivert) 25 Mg | Dizziness | | | | Tablet Tablet, 25 | | | | | Mg Po | | | | + + + + + | Meclizine Hcl | Every 6 Hours For | 09/09/15 | Discontinued | | (Antivert) 25 Mg | vertigo | | | | Tablet Tablet, 25 | | | | | Mg Po | | | | + + + + + | Meclizine Hcl | Every 6 Hours as | Unknown | Discontinued | | (Antivert) 25 Mg | Needed PRN | | | | Tablet Tablet, 25 | DIZZINESS | | | | Mg Po | | | | + + + + + | Meclizine Hcl | Every 6 Hours For | 07/25/14 | Discontinued | | (Antivert) 25 Mg | Dizziness | | | | Tablet Tablet, 25 | | | | | Mg Po | | | | + + + + + | Meclizine Hcl | Every 6 Hours For | 10/21/13 | Discontinued | | (Antivert) 25 Mg | Dizziness | | | | Tablet Tablet, 25 | | | | | Mg Po | | | | + + + + + | Meclizine Hcl | Q8H For dizziness | 07/29/16 | Discontinued | | (Motion Sickness) | | | | | 25 Mg Tablet | | | | | Tablet, 25 Mg Po | | | | + + + + + | Meclizine Hcl | Four Times a Day as | Unknown | Discontinued | | (Antivert) 25 Mg | Needed | | | | Tab Tab, 25 Mg Po | | | | + + + + + | Metformin | Daily | Unknown | Discontinued | | (Glucophage) | | | | | (Unknown Strength) | | | | | Tab Tab, 500 Mg Po | | | | + + + + + | Metformin | Twice Each Day | Unknown | Discontinued | | (Glucophage) 500 Mg | | | | | Tab Tab, 2 Tab Po | | | | + + + + + | Metformin Hcl | Twice Each Day | Unknown | Discontinued | | (Glucophage Xr) 500 | | | | | Mg Tabcr Tabcr, | | | | | 500 Mg Po | | | | + + + + + | [place], Disposable | | Unknown | Discontinued | | (B-D | | | | | Precisionglide | | | | | Needle) 1 Each | | | | | Dis.needle | | | | | Dis.needle, 1 Each | | | | | Mc | | | | + + + + + | Nitrofurantoin/Nitr | Twice Each Day | 10/27/12 | Discontinued | | ofuran Mac | | | | | (Macrobid) 100 Mg | | | | | Cap Cap, 1 Cap Po | | | | + + + + + | Nystatin/Triamcin | Two Times A Day As | Unknown | Discontinued | | (Mycolog-Ii Cream) | Needed PRN Fungal | | | | 30 Gm Cr Cr, 1 | Infection | | | | Applic Top | | | | + + + + + | Ondansetron | Every 6 Hours as | 05/08/15 | Discontinued | | (Zofran) 4 Mg | Needed PRN NAUSEA | | | | Tablet Tablet, 4 Mg | AND VOMITING. | | | | Po | | | | + + + + + | Omeprazole | Daily | Unknown | Discontinued | | (Prilosec) 40 Mg | | | | | Capsule.dr | | | | | Capsule.dr, 40 Mg | | | | | Po | | | | + + + + + | Ondansetron (Zofran | Every 8 Hours PRN | 07/16/16 | Discontinued | | Odt) 4 Mg | Nausea | | | | Tab.elizabeth | | | | | Tab.elizabeth, 1 Tab | | | | | Sl | | | | + + + + + | Ondansetron (Zofran | Every 6 Hours PRN | 09/09/15 | Discontinued | | Odt) 4 Mg | Nausea | | | | Tab.elizabeth | | | | | Tabdaquan, 1 Tab | | | | | Sl | | | | + + + + + | Ondansetron (Zofran | Every 8 Hours as | 09/14/14 | Discontinued | | Odt) 8 Mg | Needed PRN NAUSEA | | | | Tab.rapdis | | | | | Tab.elizabeth, 1 Tab | | | | | Sl | | | | + + + + + | Ondansetron Hcl | Every 4 Hours as | Unknown | Discontinued | | (Zofran Tab) 4 Mg | Needed PRN Nausea & | | | | Tab Tab, 4 Mg Po | Vomiting | | | + + + + + | Oxycodone | Every 6 Hours as | 05/08/15 | Discontinued | | Hcl/Acetaminophen | Needed PRN PAIN | | | | (Percocet 5-325 Mg | | | | | Tablet) 1 Each | | | | | Tablet Tablet, | | | | | 0.5-1 Tab Po | | | | + + + + + | Oxycodone | Every 6 Hours as | 09/14/14 | Discontinued | | Hcl/Acetaminophen | Needed PRN PAIN | | | | (Percocet 5-325 Mg | | | | | Tablet) 1 Each | | | | | Tablet Tablet, 1-2 | | | | | Tab Po | | | | + + + + + | Potassium Chloride | Daily | Unknown | Discontinued | | 10 Meq Capsule.er | | | | | Capsule.er, 10 Meq | | | | | Po | | | | + + + + + | Pioglitazone Hcl | | Unknown | Discontinued | | (Actos) 15 Mg Tab | | | | | Tab, 15 Mg Po | | | | + + + + + | Pregabalin (Lyrica) | At Bedtime | Unknown | Discontinued | | 25 Mg Cap Cap, 25 | | | | | Mg Po | | | | + + + + + | Pregabalin (Lyrica) | Three Times a Day | Unknown | Discontinued | | 50 Mg Cap Cap, 50 | | | | | Mg Po | | | | + + + + + | Promethazine Hcl | Q4H PRN Nausea & | 09/09/15 | Discontinued | | (Phenergan) 25 Mg | Vomiting | | | | Tab Tab, 25 Mg Po | | | | + + + + + | Sitagliptin | | Unknown | Discontinued | | Phosphate (Januvia) | | | | | 50 Mg Tablet | | | | | Tablet, 50 Mg Po | | | | + + + [...] | | | | Tablet, 320 Mg Po | | | | + + + + + | Valsartan (Diovan) | Daily | Unknown | Discontinued | | 80 Mg Tab Tab, 1 | | | | | Tab Po | | | | + + + [...] + + + | Discharge Date | 10/08/16 | + + + | Disposition | HOME | + + + | Condition at Discharge | Good | + + + | Instructions/Education Provided | Hyperglycemia | | | Diabetes Mellitus and Food | + + + | Forms Provided | ARCHITRAVE CONSENT | + + + | Prescriptions | See Medications Section | + + + | Referrals | DoncharlesChristen leon Kena DOG BOARDER - | + + + | Additional Instructions/Education | aloe up with PMD as planned tomorrow | | | morning. Return to ED if | | | worseningsymptoms. Drink plenty of fluids. | | | Avoid sugary food and drinks. | + + + Functional Status No functional status results. Allergies, Adverse Reactions, Alerts + +---------+ + +--------+ + | Allergen | Type | Severity | Reaction | Status | Last Updated | + +---------+ + +--------+ + | hydrocodone | Allergy | Mild | HALLUCINATIO | Active | 10/07/16 | | bit | | | NS | | | + +---------+ + +--------+ + | lisinopril | Allergy | Unknown | | Active | 10/07/16 | + +---------+ + +--------+ + | morphine | Allergy | Mild | HALLUCINATIO | Active | 10/07/16 | | | | | N | | | + +---------+ + +--------+ + | ciprofloxaci | Allergy | Unknown | | Active | 10/07/16 | | n | | | | | | + +---------+ + +--------+ + Immunizations No Known History of Immunizations. Vital Signs + + + + | Vital Reading | Collection Date/Time | Result | + + + + | Blood Pressure | 10/08/16 1:04am | 134/76 | + + + + | Blood Pressure Source | 05/01/15 10:30am | Left Arm | + + + + | Patient Temperature | 10/07/16 9:51pm | 97.0 | + + + + | Temperature Source | 10/07/16 9:51pm | Tympanic | + + + + | Respiratory Rate | 10/08/16 1:04am | 20 | + + + + | Pulse Rate | 10/08/16 1:04am | 80 | + + + + | Bedside Pulse Oximetry | 10/08/16 1:04am | 99 | + + + + | Height | 10/07/16 9:51pm | 5 ft 1 in | + + + + | Weight | 10/07/16 9:51pm | 79.83 kg | + + + + | Weight | 10/07/16 9:51pm | 176 lb | + + + + | Body Mass Index | 10/07/16 9:51pm | 33.3 | + + + + Results Laboratory [...] +--------+ +-------+ + + + + | Urine | Clean | | | | 10/07/16 | 10/08/16 | | | Source | Catch | | | | 11:42pm | 2:12am | | + +--------+ +-------+ + + + + | Urine | Yellow | | | P-Yellow | 10/07/16 | 10/08/16 | | | Color | | | | | 11:42pm | 2:12am | | + +--------+ +-------+ + + + + | Urine | Clear | | | Clear | 10/07/16 | 10/08/16 | | | Appearan | | | | | 11:42pm | 2:12am | | | ce | | | | | | | | + +--------+ +-------+ + + + + | Urine | 1.010 | | | 1.003-1. | 10/07/16 | 10/08/16 | | | Specific | | | | 022 | 11:42pm | 2:12am | | | [place] | | | | | | | | + +--------+ +-------+ + + + + | Urine pH | 5.0 | | | 5.0-8.0 | 10/07/16 | 10/08/16 | | | | | | | | 11:42pm | 2:12am | | + +--------+ +-------+ + + + + | Urine | 1+ | | * | Neg | 10/07/16 | 10/08/16 | | | Leukocyt | | | | | 11:42pm | 2:12am | | | e | | | | | | | | | Esterase | | | | | | | | + +--------+ +-------+ + + + + | Urine | Neg | | | Neg | 10/07/16 | 10/08/16 | | | Nitrite | | | | | 11:42pm | 2:12am | | + +--------+ +-------+ + + + + | Urine | 1+ | | * | Neg | 10/07/16 | 10/08/16 | | | Protein | | | | | 11:42pm | 2:12am | | + +--------+ +-------+ + + + + | Urine | 4+ | | * | Neg | 10/07/16 | 10/08/16 | | | Glucose | | | | | 11:42pm | 2:12am | | + +--------+ +-------+ + + + + | Urine | Neg | | | Neg | 10/07/16 | 10/08/16 | | | Ketones | | | | | 11:42pm | 2:12am | | + +--------+ +-------+ + + + + | Urine | NORM | | | Normal | 10/07/16 | 10/08/16 | | | Urobilin | | | | | 11:42pm | 2:12am | | | ogen | | | | | | | | + +--------+ +-------+ + + + + | Urine | Neg | | | Neg | 10/07/16 | 10/08/16 | | | Bilirubi | | | | | 11:42pm | 2:12am | | | n | | | | | | | | + +--------+ +-------+ + + + + | Urine | Neg | | | Neg | 10/07/16 | 10/08/16 | | | Blood | | | | | 11:42pm | 2:12am | | + +--------+ +-------+ + + + + | Urine | 2-5 | /hpf | | 0-5 | 10/07/16 | 10/08/16 | | | WBC | | | | | 11:42pm | 2:13am | | + +--------+ +-------+ + + + + | Urine | 0-2 | /hpf | | 0-2 | 17 | 17 | | | RBC | | | | | 11:42pm | 2:13am | | + +--------+ +-------+ + + + + | Urine | Few | /hpf | | Few | 10/07/16 | 10/08/16 | | | Squamous | | | | | 11:42pm | 2:13am | | | | | | | | | | | | Epitheli | | | | | | | | | al Cells | | | | | | | | + +--------+ +-------+ + + + + | Urine | Mod | /hpf | * | None | 10/07/16 | 10/08/16 | | | Bacteria | | | | | 11:42pm | 2:13am | | + +--------+ +-------+ + + + + | Urine | Yes | | * | No | 10/07/16 | 10/08/16 | | | Culture | | | | | 11:42pm | 2:12am | | | Indicate | | | | | | | | | d | | | | | | | | + +--------+ +-------+ + + + + | Urine | NOTE: | | * | | 10/07/16 | 10/08/16 | The | | Comment | | | | | 11:42pm | 2:13am | specimen | | | | | | | | | is | | | | | | | | | suboptim | | | | | | | | | al | | | | | | | | | because | | | | | | | | | 6 mLs of | | | | | | | | | urine | | | | | | | | | wassubmi | | | | | | | | | tted | | | | | | | | | versus | | | | | | | | | the | | | | | | | | | recommen | | | | | | | | | ded 12 | | | | | | | | | mls. | | | | | | | | | Interpre | | | | | | | | | t | | | | | | | | | resultsw | | | | | | | | | ith | | | | | | | | | caution. | + +--------+ +-------+ + + + + | White | 5.10 | K/mm3 | | 4.00-11. | 10/07/16 | 10/07/16 | | | Blood | | | | 30 | 10:20pm | 11:25pm | | | Count | | | | | | | | + +--------+ +-------+ + + + + | Red | 3.63 | M/mm3 | L | 3.80-5.2 | 10/07/16 | 10/07/16 | | | Blood | | | | 0 | 10:20pm | 11:25pm | | | Count | | | | | | | | + +--------+ +-------+ + + + + | Hemoglob | 11.3 | g/dL | L | 11.5-16. | 10/07/16 | 10/07/16 | | | in | | | | 0 | 10:20pm | 11:25pm | | + +--------+ +-------+ + + + + | Hematocr | 32.7 | % | L | 33.0-51. | 10/07/16 | 10/07/16 | | | it | | | | 0 | 10:20pm | 11:25pm | | + +--------+ +-------+ + + + + | Mean | 90 | fL | | 80-100 | 10/07/16 | 10/07/16 | | | Corpuscu | | | | | 10:20pm | 11:25pm | | | lar | | | | | | | | | Volume | | | | | | | | + +--------+ +-------+ + + + + | Mean | 31.1 | pg | | 26.0-34. | 10/07/16 | 10/07/16 | | | Corpuscu | | | | 0 | 10:20pm | 11:25pm | | | lar | | | | | | | | | Hemoglob | | | | | | | | | in | | | | | | | | + +--------+ +-------+ + + + + | Mean | 34.6 | g/dL | | 31.5-36. | 10/07/16 | 10/07/16 | | | Corpuscu | | | | 5 | 10:20pm | 11:25pm | | | lar | | | | | | | | | Hemoglob | | | | | | | | | in | | | | | | | | | Concent | | | | | | | | + +--------+ +-------+ + + + + | RDW | 42.3 | fL | | 35.1-46. | 10/07/16 | 10/07/16 | | | Standard | | | | 3 | 10:20pm | 11:25pm | | | | | | | | | | | | Deviatio | | | | | | | | | n | | | | | | | | + +--------+ +-------+ + + + + | RDW | 13.2 | % | | 11.7-14. | 10/07/16 | 10/07/16 | | | Coeffici | | | | 2 | 10:20pm | 11:25pm | | | ent of | | | | | | | | | Variatio | | | | | | | | | n | | | | | | | | + +--------+ +-------+ + + + + | Platelet | 146 | K/mm3 | L | 150-400 | 10/07/16 | 10/07/16 | | | Count | | | | | 10:20pm | 11:25pm | | + +--------+ +-------+ + + + + | Mean | 12.7 | fL | H | 9.1-12.4 | 10/07/16 | 10/07/16 | | | Platelet | | | | | 10:20pm | 11:25pm | | | Volume | | | | | | | | + +--------+ +-------+ + + + + | Differen | Auto | | | | 10/07/16 | 10/07/16 | | | tial | | | | | 10:20pm | 11:25pm | | | Method | | | | | | | | + +--------+ +-------+ + + + + | Neutroph | 53 | % | | 41-73 | 10/07/16 | 10/07/16 | | | ils (%) | | | | | 10:20pm | 11:25pm | | | (Auto) | | | | | | | | + +--------+ +-------+ + + + + | Lymphocy | 37 | % | | 21-46 | 10/07/16 | 10/07/16 | | | serge (%) | | | | | 10:20pm | 11:25pm | | | (Auto) | | | | | | | | + +--------+ +-------+ + + + + | Monocyte | 7 | % | | 4-13 | 10/07/16 | 10/07/16 | | | s (%) | | | | | 10:20pm | 11:25pm | | | (Auto) | | | | | | | | + +--------+ +-------+ + + + + | Eosinoph | 2 | % | | 0-6 | 10/07/16 | 10/07/16 | | | ils (%) | | | | | 10:20pm | 11:25pm | | | (Auto) | | | | | | | | + +--------+ +-------+ + + + + | Basophil | 0 | % | | 0-2 | 10/07/16 | 10/07/16 | | | s (%) | | | | | 10:20pm | 11:25pm | | | (Auto) | | | | | | | | + +--------+ +-------+ + + + + | Immature | 0 | % | | 0-1 | 10/07/16 | 10/07/16 | | | | | | | | 10:20pm | 11:25pm | | | Granuloc | | | | | | | | | yte % | | | | | | | | | (Auto) | | | | | | | | + +--------+ +-------+ + + + + | Nucleate | 0.0 | /100 WBC | | 0.0-0.2 | 10/07/16 | 10/07/16 | | | d Red | | | | | 10:20pm | 11:25pm | | | Blood | | | | | | | | | Cells % | | | | | | | | + +--------+ +-------+ + + + + | Absolute | 2.71 | K/mm3 | | 1.96-9.1 | 10/07/16 | 10/07/16 | | | | | | | 5 | 10:20pm | 11:25pm | | | Neutroph | | | | | | | | | ils | | | | | | | | | (auto) | | | | | | | | + +--------+ +-------+ + + + + | Absolute | 1.89 | K/mm3 | | 0.84-5.2 | 10/07/16 | 10/07/16 | | | | | | | 0 | 10:20pm | 11:25pm | | | Lymphocy | | | | | | | | | serge | | | | | | | | | (auto) | | | | | | | | + +--------+ +-------+ + + + + | Absolute | 0.36 | K/mm3 | | 0.16-1.4 | 10/07/16 | 10/07/16 | | | | | | | 7 | 10:20pm | 11:25pm | | | Monocyte | | | | | | | | | s (auto) | | | | | | | | + +--------+ +-------+ + + + + | Absolute | 0.11 | K/mm3 | | 0.00-0.6 | 10/07/16 | 10/07/16 | | | | | | | 8 | 10:20pm | 11:25pm | | | Eosinoph | | | | | | | | | ils | | | | | | | | | (auto) | | | | | | | | + +--------+ +-------+ + + + + | Absolute | 0.02 | K/mm3 | | 0.00-0.2 | 10/07/16 | 10/07/16 | | | | | | | 3 | 10:20pm | 11:25pm | | | Basophil | | | | | | | | | s (auto) | | | | | | | | + +--------+ +-------+ + + + + | Absolute | 0.01 | K/mm3 | | 0.00-0.1 | 05/14/17 | 10/07/16 | | | | | | | 0 | 10:20pm | 11:25pm | | | Immature | | | [...] 0.00 | K/mm3 | | 0.00-0.0 | 10/07/16 | 10/07/16 | | | d RBC | | | | 2 | 10:20pm | 11:25pm | | | Absolute | | | | | | | | | Count | | | | | | | | | (auto) | | | | | | | | + +--------+ +-------+ + + + + | Sodium | 138 | mmol/L | | 136-145 | 10/07/16 | 10/07/16 | | | Level | | | | | 10:20pm | 11:49pm | | + +--------+ +-------+ + + + + | Potassiu | 4.4 | mmol/L | | 3.5-5.5 | 10/07/16 | 10/07/16 | | | m Level | | | | | 10:20pm | 11:49pm | | + +--------+ +-------+ + + + + | Chloride | 105 | mmol/L | | 98-108 | 10/07/16 | 10/07/16 | | | Level | | | | | 10:20pm | 11:49pm | | + +--------+ +-------+ + + + + | Carbon | 25 | mmol/L | | 21-32 | 10/07/16 | 10/07/16 | | | Dioxide | | | | | 10:20pm | 11:49pm | | | Level | | | | | | | | + +--------+ +-------+ + + + + | Anion | 8 | mmol/L | | 6-16 | 10/07/16 | 10/07/16 | | | Gap | | | | | 10:20pm | 11:49pm | | + +--------+ +-------+ + + + + | Glucose | 319 | mg/dL | H | 70-99 | 10/07/16 | 10/07/16 | | | Level | | | | | 10:20pm | 11:49pm | | + +--------+ +-------+ + + + + | Blood | 34 | mg/dL | H | 8-24 | 10/07/16 | 10/07/16 | | | Urea | | | | | 10:20pm | 11:49pm | | | Nitrogen | | | | | | | | + +--------+ +-------+ + + + + | Creatini | 1.99 | mg/dL | H | 0.40-1.0 | 10/07/16 | 10/07/16 | | | ne | | | | 0 | 10:20pm | 11:49pm | | + +--------+ +-------+ + + + + | BUN/Crea | 17.1 | % | | 12.0-20. | 10/07/16 | 10/07/16 | | | tinine | | | | 0 | 10:20pm | 11:49pm | | | Ratio | | | | | | | | + +--------+ +-------+ + + + + | Glomerul | 26 | | L | 60- | 10/07/16 | 10/07/16 | Non-Afri | | ar | | | | | 10:20pm | 11:49pm | can | | Filtrati | | | | | | | [place] | | on Rate | | | | | | | GFR | | Calc | | | | | | | CalcFor | | | | | | | | | | | | | | | | | | [place] | | | | | | | [...] + + + + | Calcium | 8.8 | mg/dL | | 8.5-10.1 | 10/07/16 | 10/07/16 | | | Level | | | | | 10:20pm | 11:49pm | | + +--------+ +-------+ + + + + | Total | 7.3 | g/dL | | 6.4-8.2 | 10/07/16 | 10/07/16 | | | Protein | | | | | 10:20pm | 11:49pm | | + +--------+ +-------+ + + + + | Albumin | 3.7 | g/dL | | 3.4-5.0 | 10/07/16 | 10/07/16 | | | | | | | | 10:20pm | 11:49pm | | + +--------+ +-------+ + + + + | Globulin | 3.6 | g/dL | | 2.2-4.0 | 10/07/16 | 10/07/16 | | | | | | | | 10:20pm | 11:49pm | | + +--------+ +-------+ + + + + | Albumin/ | 1.0 | | | 0.8-1.8 | 10/07/16 | 10/07/16 | | | Globulin | | | | | 10:20pm | 11:49pm | | | Ratio | | | | | | | | + +--------+ +-------+ + + + + | Total | 0.2 | mg/dL | | 0.1-1.0 | 10/07/16 | 10/07/16 | | | Bilirubi | | | | | 10:20pm | 11:49pm | | | n | | | | | | | | + +--------+ +-------+ + + + + | Alkaline | 122 | U/L | | 50-136 | 10/07/16 | 10/07/16 | | | | | | | | 10:20pm | 11:49pm | | | Phosphat | | | | | | | | | ase | | | | | | | | + +--------+ +-------+ + + + + | Aspartat | 54 | U/L | H | 12-37 | 10/07/16 | 10/07/16 | | | e Amino | | | | | 10:20pm | 11:49pm | | | Transf | | | | | | | | | (AST/SGO | | | | | | | | | T) | | | | | | | | + +--------+ +-------+ + + + + | Alanine | 44 | U/L | | 12-78 | 10/07/16 | 10/07/16 | | | Aminotra | | | | | 10:20pm | 11:49pm | | | nsferase | | | | | | | | | | | | | | | | | | (ALT/SGP | | | | | | | | | T) | | | | | | | | + +--------+ +-------+ + + + + | Beta-Hyd | 0.8 | mg/dL | | 0.2-2.8 | 10/07/16 | 10/07/16 | | | roxybuty | | | | | 10:20pm | 11:49pm | | | rate | | | | | | | | | (Chem | | | | | | | | | panel) | | | | | | | | + +--------+ +-------+ + + + + | POC | 337 | mg/dL | H | 70-99 | 10/07/16 | 10/07/16 | TITI | | Glucose | | | | | 10:17pm | 10:20pm | | | (mg/dL) | | | | | | | | + +--------+ +-------+ + + + + Procedures No Known History of Procedures. Encounters + + + + + + | Encounter | Location | Arrival/Admit | Discharge/Depar | Attending | | | | Date | t Date | Provider | + + + + + + | Departed | [facility] | 10/07/16 9:34pm | 10/08/16 2:24am | [facility] | | Emergency | [facility] | | | J DO | + + + + + + + + | Encounter Diagnosis | + + | Hyperglycemia | + + | Diabetes mellitus | + +"
--- OUTSIDE RECORDS SUMMARY | ~2019-03-25 | XMS | Continuity of Care Document ---
Demographics + + + | Address | [address] | | | [place] [address] | + + + | Home Phone | | + + + | Preferred Language | Unknown | + + + | Marital Status | Unknown | + + + | Denominational Affiliation | Unknown | + + + | Race | Unknown | + + + | Ethnic Group | Unknown | + + + Author + + + | Author | [facility] | + + + | Organization | [facility] | + + + | Address | [address] | | | [place] [address] | + + + | Phone | | + + + Support + + + + + | Name | Relationship | Address | Phone | + + + + + | Corky Kay MD | Caregiver | Emergency Services | | | | | [place] [address] | | + + + + + | EVAN Florez | Caregiver | [facility] | | | [place] | | Medical | | | | | [place] | | | | | [phone] | | + + + + + | DOLORES DIANA | Next Of Wilfred | [address] | | | | | [place] [address] | | + + + + + Care Team Providers + + + + | Care Exhibit Specialist Name | Role | Phone | + + + + | EVAN Florez | Unavailable | | + + + + Insurance Providers + + + + + | Payer Name | Policy Number | Subscriber Name | Relationship | + + + + + | [employer] | [id number] | JULI DIANA | SELF | | PLAN | | | | + + + + + | [employer] | [id number] | JULI DIANA | SELF | | PPO | | | | + + + + + Chief Complaint and Reason for Visit + + + | Reason for Visit | HIGH BLOOD SUGAR PAIN ON RIGHT SIDE | + + + Problems Active Medical [...] + +--------+ Medications Current Home Medications + +-------+-------+ + + + +--------+ | Medicati | Dose | Units | Route | Directio | Days/Qty | Instruct | Start | | on | | | | ns | | ions | Date | + +-------+-------+ + + + +--------+ | Atorvast | 1 | TAB | ORAL | Daily | 30 | | | | atin | | | | | | | | | (Lipitor | | | | | | | | | ) 20 MG | | | | | | | | | TAB | | | | | | | | + +-------+-------+ + + + +--------+ | BIOTIN 1 | 1 | MG | ORAL | | | | | | MG | | | | | | | | | CAPSULE | | | | | | | | + +-------+-------+ + + + +--------+ | Cholecal | [...] | | | | | | + +-------+-------+ + + + +--------+ | Clopidog | [...] | | | | | | + +-------+-------+ + + + +--------+ | Furosemi | 80 | MG | ORAL | Daily | | | | | de | | | | | | | | | (Lasix) | | | | | | | | | 80 MG | | | | | | | | | TAB | | | | | | | | + +-------+-------+ + + + +--------+ | Gabapent | 2 | CAP | ORAL | Twice | | | | | in | | | | each day | | | | | (Neuront | | | | before | | | | | in) 300 | | | | meals | | | | | MG CAP | | | | | | | | + +-------+-------+ + + + +--------+ | Glipizid | 5 | MG | ORAL | | | | | | e | | | | | | | | | (Glucotr | | | | | | | | | ol Xl) 5 | | | | | | | | | MG | | | | | | | | | TABCR | | | | | | | | + +-------+-------+ + + + +--------+ | INSULIN | [...] | | | | | | + +-------+-------+ + + + +--------+ | Insulin | [...] | | | | | | + +-------+-------+ + + + +--------+ | Potassiu | 10 | MEQ | ORAL | | | 2-3 TABS | | | m | | | | | | EVERY | | | Chloride | | | | | | WEEK | | | 10 MEQ | | | | | | | | | CAPCR | | | | | | | | + +-------+-------+ + + + +--------+ | Valsarta | 160 | MG | ORAL | Daily | | | | | n | | | | | | | | | (Diovan) | | | | | | | | | 160 MG | | | | | | | | | TABLET | | | | | | | | + +-------+-------+ + + + +--------+ Past Home Medications [...] | + + + + + | [place], Disposable | | Unknown | Discontinued | [...] + + + | Discharge Date | 10/28/16 | + + + | Disposition | HOME | + + + | Condition at Discharge | Fair | + + + | Instructions/Education Provided | Hyperglycemia | | | Dehydration, Adult | + + + | Prescriptions | See Medications Section | + + + | Referrals | Christen Florez [facility] - | + + + | Additional Instructions/Education | Please follow up with your PCP as soon as | | | possible and return to the ER forworsening | | | symptoms. Check your blood sugar | | | regularly and drink plenty of fluids. | + + + Functional Status No functional status results. Allergies, Adverse Reactions, Alerts + +---------+ + +--------+ + | Allergen | Type | Severity | Reaction | Status | Last Updated | + +---------+ + +--------+ + | hydrocodone | Allergy | Mild | HALLUCINATIO | Active | 10/28/16 | | bit | | | NS | | | + +---------+ + +--------+ + | lisinopril | Allergy | Unknown | | Active | 10/28/16 | + +---------+ + +--------+ + | morphine | Allergy | Mild | HALLUCINATIO | Active | 10/28/16 | | | | | N | | | + +---------+ + +--------+ + | ciprofloxaci | Allergy | Unknown | | Active | 10/28/16 | | n | | | | | | + +---------+ + +--------+ + Immunizations No Known History of Immunizations. Vital Signs + + + + | Vital Reading | Collection Date/Time | Result | + + + + | Blood Pressure | 10/28/16 3:00am | 189/84 | + + + + | Blood Pressure Source | 05/01/15 10:30am | Left Arm | + + + + | Temperature | 10/28/16 3:00am | 97.1 F | + + + + | Temperature Source | 10/28/16 0:34am | Temporal | + + + + | Respiratory Rate | 10/28/16 3:00am | 16 | + + + + | Pulse Rate | 17 3:00am | 82 | + + + + | Bedside Pulse Oximetry | 10/28/16 3:00am | 99 | + + + + | Height | 10/28/16 0:34am | 5 ft 1 in | + + + + | Height | 10/28/16 0:34am | 154.94 cm | + + + + | Weight | 10/28/16 0:34am | 170 lb | + + + + | Weight | 10/28/16 0:34am | 77.11 kg | + + + + | Body Mass Index | 10/28/16 0:34am | 32.1 kg/m2 | + + + [...] + + + + | POC | 257 | mg/dL | H | 70-99 | 10/28/16 | 10/28/16 | Notified | | Glucose | | | | | 2:57am | 3:00am | | | (mg/dL) | | | | | | | [facility] | | | | | | | | | rMonitor | | | | | | | | | per | | | | | | | | | orderCAP | + +--------+ +-------+ + + + + | White | 4.27 | K/mm3 | | 4.00-11. | 10/28/16 | 10/28/16 | | | Blood | | | | 30 | 1:00am | 1:20am | | | Count | | | | | | | | + +--------+ +-------+ + + + + | Red | 3.13 | M/mm3 | L | 3.80-5.2 | 10/28/16 | 10/28/16 | | | Blood | | | | 0 | 1:00am | 1:20am | | | Count | | | | | | | | + +--------+ +-------+ + + + + | Hemoglob | 9.8 | g/dL | L | 11.5-16. | 10/28/16 | 10/28/16 | | | in | | | | 0 | 1:00am | 1:20am | | + +--------+ +-------+ + + + + | Hematocr | 28.4 | % | L | 33.0-51. | 10/28/16 | 10/28/16 | | | it | | | | 0 | 1:00am | 1:20am | | + +--------+ +-------+ + + + + | Mean | 91 | fL | | 80-100 | 10/28/16 | 10/28/16 | | | Corpuscu | | | | | 1:00am | 1:20am | | | lar | | | | | | | | | Volume | | | | | | | | + +--------+ +-------+ + + + + | Mean | 31.3 | pg | | 26.0-34. | 10/28/16 | 10/28/16 | | | Corpuscu | | | | 0 | 1:00am | 1:20am | | | lar | | | | | | | | | Hemoglob | | | | | | | | | in | | | | | | | | + +--------+ +-------+ + + + + | Mean | 34.5 | g/dL | | 31.5-36. | 10/28/16 | 10/28/16 | | | Corpuscu | | | | 5 | 1:00am | 1:20am | | | lar | | | | | | | | | Hemoglob | | | | | | | | | in | | | | | | | | | Concent | | | | | | | | + +--------+ +-------+ + + + + | RDW | 42.2 | fL | | 35.1-46. | 10/28/16 | 10/28/16 | | | Standard | | | | 3 | 1:00am | 1:20am | | | | | | | | | | | | Deviatio | | | | | | | | | n | | | | | | | | + +--------+ +-------+ + + + + | RDW | 13.2 | % | | 11.7-14. | 10/28/16 | 10/28/16 | | | Coeffici | | | | 2 | 1:00am | 1:20am | | | ent of | | | | | | | | | Variatio | | | | | | | | | n | | | | | | | | + +--------+ +-------+ + + + + | Platelet | 126 | K/mm3 | L | 150-400 | 10/28/16 | 10/28/16 | | | Count | | | | | 1:00am | 1:20am | | + +--------+ +-------+ + + + + | Mean | 12.2 | fL | | 9.1-12.4 | 10/28/16 | 10/28/16 | | | Platelet | | | | | 1:00am | 1:20am | | | Volume | | | | | | | | + +--------+ +-------+ + + + + | Differen | Auto | | | | 10/28/16 | 10/28/16 | | | tial | | | | | 1:00am | 1:20am | | | Method | | | | | | | | + +--------+ +-------+ + + + + | Neutroph | 45 | % | | 41-73 | 10/28/16 | 10/28/16 | | | ils (%) | | | | | 1:00am | 1:20am | | | (Auto) | | | | | | | | + +--------+ +-------+ + + + + | Lymphocy | 43 | % | | 21-46 | 10/28/16 | 10/28/16 | | | serge (%) | | | | | 1:00am | 1:20am | | | (Auto) | | | | | | | | + +--------+ +-------+ + + + + | Monocyte | 5 | % | | 4-13 | 10/28/16 | 10/28/16 | | | s (%) | | | | | 1:00am | 1:20am | | | (Auto) | | | | | | | | + +--------+ +-------+ + + + + | Eosinoph | 6 | % | | 0-6 | 10/28/16 | 10/28/16 | | | ils (%) | | | | | 1:00am | 1:20am | | | (Auto) | | | | | | | | + +--------+ +-------+ + + + + | Basophil | 1 | % | | 0-2 | 10/28/16 | 10/28/16 | | | s (%) | | | | | 1:00am | 1:20am | | | (Auto) | | | | | | | | + +--------+ +-------+ + + + + | Immature | 0 | % | | 0-1 | 10/28/16 | 10/28/16 | | | | | | | | 1:00am | 1:20am | | | Granuloc | | | | | | | | | yte % | | | | | | | | | (Auto) | | | | | | | | + +--------+ +-------+ + + + + | Nucleate | 0.0 | /100 WBC | | 0.0-0.2 | 10/28/16 | 10/28/16 | | | d Red | | | | | 1:00am | 1:20am | | | Blood | | | | | | | | | Cells % | | | | | | | | + +--------+ +-------+ + + + + | Absolute | 1.92 | K/mm3 | L | 1.96-9.1 | 10/28/16 | 10/28/16 | | | | | | | 5 | 1:00am | 1:20am | | | Neutroph | | | | | | | | | ils | | | | | | | | | (auto) | | | | | | | | + +--------+ +-------+ + + + + | Absolute | 1.84 | K/mm3 | | 0.84-5.2 | 10/28/16 | 10/28/16 | | | | | | | 0 | 1:00am | 1:20am | | | Lymphocy | | | | | | | | | serge | | | | | | | | | (auto) | | | | | | | | + +--------+ +-------+ + + + + | Absolute | 0.23 | K/mm3 | | 0.16-1.4 | 10/28/16 | 10/28/16 | | | | | | | 7 | 1:00am | 1:20am | | | Monocyte | | | | | | | | | s (auto) | | | | | | | | + +--------+ +-------+ + + + + | Absolute | 0.24 | K/mm3 | | 0.00-0.6 | 10/28/16 | 10/28/16 | | | | | | | 8 | 1:00am | 1:20am | | | Eosinoph | | | | | | | | | ils | | | | | | | | | (auto) | | | | | | | | + +--------+ +-------+ + + + + | Absolute | 0.03 | K/mm3 | | 0.00-0.2 | 10/28/16 | 10/28/16 | | | | | | | 3 | 1:00am | 1:20am | | | Basophil | | | | | | | | | s (auto) | | | | | | | | + +--------+ +-------+ + + + + | Absolute | 0.01 | K/mm3 | | 0.00-0.1 | 10/28/16 | 10/28/16 | | | | | | | 0 | 1:00am | 1:20am | | | Immature | | | [...] 0.00 | K/mm3 | | 0.00-0.0 | 10/28/16 | 10/28/16 | | | d RBC | | | | 2 | 1:00am | 1:20am | | | Absolute | | | | | | | | | Count | | | | | | | | | (auto) | | | | | | | | + +--------+ +-------+ + + + + | Sodium | 140 | mmol/L | | 136-145 | 10/28/16 | 10/28/16 | | | Level | | | | | 1:00am | 1:24am | | + +--------+ +-------+ + + + + | Potassiu | 4.5 | mmol/L | | 3.5-5.5 | 10/28/16 | 10/28/16 | | | m Level | | | | | 1:00am | 1:24am | | + +--------+ +-------+ + + + + | Chloride | 106 | mmol/L | | 98-108 | 10/28/16 | 10/28/16 | | | Level | | | | | 1:00am | 1:24am | | + +--------+ +-------+ + + + + | Carbon | 24 | mmol/L | | 21-32 | 10/28/16 | 10/28/16 | | | Dioxide | | | | | 1:00am | 1:24am | | | Level | | | | | | | | + +--------+ +-------+ + + + + | Anion | 10 | mmol/L | | 6-16 | 10/28/16 | 10/28/16 | | | Gap | | | | | 1:00am | 1:24am | | + +--------+ +-------+ + + + + | Glucose | 375 | mg/dL | H | 70-99 | 10/28/16 | 10/28/16 | | | Level | | | | | 1:00am | 1:24am | | + +--------+ +-------+ + + + + | Blood | 39 | mg/dL | H | 8-24 | 10/28/16 | 10/28/16 | | | Urea | | | | | 1:00am | 1:24am | | | Nitrogen | | | | | | | | + +--------+ +-------+ + + + + | Creatini | 2.12 | mg/dL | H | 0.40-1.0 | 10/28/16 | 10/28/16 | | | ne | | | | 0 | 1:00am | 1:24am | | + +--------+ +-------+ + + + + | BUN/Crea | 18.4 | % | | 12.0-20. | 10/28/16 | 10/28/16 | | | tinine | | | | 0 | 1:00am | 1:24am | | | Ratio | | | | | | | | + +--------+ +-------+ + + + + | Glomerul | 24 | | L | 60- | 10/28/16 | 10/28/16 | Non-Afri | | ar | | | | | 1:00am | 1:24am | can | | Filtrati | | | | | | | Serbian | | on Rate | | | | | | | GFR | | Calc | | | | | | | CalcFor | | | | | | | | | | | | | | | | | | Serbian | | | | | | | [...] + + + + | Calcium | 9.0 | mg/dL | | 8.5-10.1 | 10/28/16 | 10/28/16 | | | Level | | | | | 1:00am | [...] + + + + | Departed | [facility] | 10/28/16 0:16am | 10/28/16 3:14am | Corky Kay | | Emergency | [facility] [place] | | | E MD | + + + + + + + + + | Encounter Diagnosis | Onset Date | + + + | Dehydration | | + + + | Hyperglycemia | | + + +"
--- OUTSIDE RECORDS SUMMARY | ~2019-03-25 | XMS ---
Demographics + + + | Address | [address] | | | [place] [address] | + + + | Home Phone | | + + + | Preferred Language | Unknown | + + + | Marital Status | D | + + + | Denominational Affiliation | Unknown | + + + | Race | Unspecified | + + + | Ethnic Group | or | + + + Author + + + | Author | [facility] | + + + | Organization | [facility] | + + + | Address | [address] | | | [place] [address] | + + + | Phone | Unavailable | + + + Care Team Providers + + + + | Care Blood Tester Name | Role | Phone | + + + + Unavailable | Unavailable | + + + + Reason for Visit + + + | Reason For Visit Description | Start Date | + + + | General Notes | | + + + | | Chief complaint: OV/Hydration/Iraj | | | History Of Present Illness: She's here | | | with problems of volume depletion. She's | | | been seen by nephrology and recommended to | [...] | | | recommended to receive IV hydration | | | Medication list is reviewed . Her past | | | medical and surgical history are reviewed | | | and updated 12 point system review is | | | obtained and otherwise unremarkable as | | | except as noted. Physical examination: | | | General appearance alert and oriented no | | | acute distress HEENT scalp unremarkable | | | eyes pupils equal round reactive | | | oropharynx clear dry mucosal membrane neck | | | supple without adenopathy no JVD lungs | | | clear percussion auscultation heart | | | regular rate dry axillary folds rhythm | | | abdomen soft nontender no palpable | | | abnormal masses no hepatosplenomegaly | | | extremities without cyanosis clubbing or | | | edema Impression volume depletion #2 | | | chronic renal insufficiency #3 | | | gastrointestinal upset plan IV normal | | | saline 1 L Review of Systems General: | | | Patient complains of: weight loss. | | | Eyes: Patient complains of: blurring. | | | Skin: Patient complains of: itching, dry | | | skin. Review of systems was | | | self-reported by the patient, entered by | | | staff, and reviewed by the physician | | | during the encounter, with additional | | | information added as appropriate. Risk | | | Factors Tobacco Use: [...] high | | | risk behavior: No Patient Health | | | Questionnaire-9 Over the last 2 weeks, | | | how often have you been bothered by any of | | | the following problems: 1. Little | | | interest or pleasure in doing things? 0 | | | 2. Feeling down, depressed, or hopeless? | | | 0 3. Trouble falling or staying asleep, | | | or sleeping too much? 0 4. Feeling | | | tired or having little energy? 2 5. | | | Poor appetite or overeating? 0 6. | | | Feeling bad about yourself/or that you are | | | a failure or have let yourself or your | | | family down? 0 7. Trouble concentrating | | | on things, such as reading the newspaper | | | or watching television? 3 8. Moving or | | | speaking so slowly that other people could | | | have noticed? Or the opposite---being so | | | fidgety or restless that you have been | | | moving around a lot more than usual? 0 | | | 9. Thoughts that you would be better off | | | or of hurting yourself in some way? | | | 0 If you checked off any problems, how | | | difficult have these problems made it for | | | you to do your work, take care of things | | | at home, or get along with other people? | | | Somewhat Difficult PHQ-9 Score: 5 | | | Score Interpretation: Mild Depression | | | Intervention: No Intervention Medical | | | History Type 2 [...] Number of Children: 7 | | | Jewish/Restorationist: Religious Primary | | | Language: Hungarian Use of Hungarian | | | Language: Fluent Vital Signs | | | Height: 60in Weight: 187.6lbs Pulse: 78 | | | BP: 128/78 BMI: 36.77 Pulse Oximetry | | | O2 Sat: 96% RA Vitals entered by: Marian | | | Melony AZAR on December 09, 2018 12:54 PM | | | Meaningful Use Med List: (Reconciled) | | | | + + + Assessments No information available. Chief Complaint + + + | Chief Complaint Description | Start Date | + + + | BISI/Hira/Iraj | | + + + History of Past Illness No information available."
--- OUTSIDE RECORDS SUMMARY | ~2019-03-25 | XMS | Clinical Summary ---
Demographics + + + | Address | [address] [place] [address] | | | [place] [address] | + + + | Home Phone | | + + + | Preferred Language | Unknown | + + + | Marital Status | D | + + + | Latter-Day Affiliation | Unknown | + + + | Race | White | + + + | Ethnic Group | or | + + + Author + + + | Author | [facility] | + + + | Organization | [facility] | + + + | Address | [address] | | | [place], [place] [address] | + + + | Phone | Unavailable | + + + Care Team Providers + +------+ + | Care Cad Design Engineer Name | Role | Phone | + [...] tion | | +---------+---------+---------+---------+---------+---------+---------+---------+---------+ | VACCINA | [id number] | | Active | | [facility] | | Medicat | | | TION | 02 | / | | /03 | [place] | | ion | | | FOR | (SNOMED | | | | DNP 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 | | given | | | STREP [...] | | | +---------+---------+---------+---------+---------+---------+---------+---------+---------+ | OSTEOAR | [id number] | | Active | | Edna | | Osteoar | | | THRITIS | 07 | /16 | | /18 | Hope | | thritis | | | , KNEE, | (SNOMED | | | | [facility]MA | | of | | | RIGHT | CT) | | | | | | knee | | +---------+---------+---------+---------+---------+---------+---------+---------+---------+ | CONSTIP | [id number] | | Active | | [facility]rose | | Constip | | | ATION | 8 | / | | /13 | [place] | | ation | | | | (SNOMED | | | | DNP 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 | | | | | | CT) | | | | | | | | +---------+---------+---------+---------+---------+---------+---------+---------+---------+ | TYPE 2 | E11.21 | | Active | | [facility] | | Type 2 | | | DIABETE | (ICD-10 | / | | | [place]ur | | diabete | | | S | -CM) | | | | DNP 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 | | s | | | MELLITU [...] athy | | +---------+---------+---------+---------+---------+---------+---------+---------+---------+ | DIABETE | [id number] | | Inactiv | | Ambrose | | Type 2 | | | S | 6 | /08 | e | /08 | [place] | | diabete | | | MELLITU | (SNOMED | | | | DNP 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 | | s | | | S, TYPE | CT) | | | | | | mellitu | | | II, ON | | | | | | | s | | | | | | | | | | | | | INSULIN | | | | | | | | | +---------+---------+---------+---------+---------+---------+---------+---------+---------+ | DEHYDRA | [id number] | | Resolve | | Ambrose | | Dehydra | | | TION | 6 | / | d | /08 | [place] | | tion | | | | (SNOMED | | | | DNP 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 | | | | | | CT) | | | | | | | | +---------+---------+---------+---------+---------+---------+---------+---------+---------+ | DIZZINE | [id number] | | Inactiv | | Ambrose | | Dizzine | | | SS | 03 | /08 | e | /08 | [place] | | ss | | | | (SNOMED | | | | DNP 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 | | | | | | CT) | | | | | | | | +---------+---------+---------+---------+---------+---------+---------+---------+---------+ | ANEMIA | [id number] | | Inactiv | | [facility] | | Anemia | | | | 00 | /10 | e | /10 | [place] | | | | | | (SNOMED | | | | DNP 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 | | | | | | CT) | | | | | | | | +---------+---------+---------+---------+---------+---------+---------+---------+---------+ | CONSTIP | [id number] | | Inactiv | | Ambrose | | Constip | | | ATION | 8 | / | e | / | [place] | | ation | | | | (SNOMED | | | | DNP 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 | | | | | | CT) | | | | | | | | +---------+---------+---------+---------+---------+---------+---------+---------+---------+ | SYNCOPE | [id number] | | Resolve | | Ambrose | | Syncope | | | | 07 | | d | / | [place] | | | | | | (SNOMED | | | | DNP 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 | | | | | | CT) | | | | | | | | +---------+---------+---------+---------+---------+---------+---------+---------+---------+ | DYSPHAG | R13.10 | | Resolve | | Ambrose | | Dysphag | | | IA | (ICD-10 | | d | /26 | [place] | | ia, | | | UNSPECI | -CM) | | | | DNP 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 | | unspeci | | | FIED | | | | | | | fied | | +---------+---------+---------+---------+---------+---------+---------+---------+---------+ | PARESTH | [id number] | | Inactiv | | Ambrose | | Paresth | | | ESIA, | | | e | | [place] | | esia of | | | HANDS | (SNOMED | | | | DNP 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 | | hand | | | | CT) | | | | | | | | +---------+---------+---------+---------+---------+---------+---------+---------+---------+ | DIABETI | [id number] | | Inactiv | | Ambrose | | Diabeti | | | C | | | e | | [place] | | c | | | PERIPHE | (SNOMED | | | | DNP 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 | | periphe | | | RAL [...] | -CM) | | | | DNP 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 | | unspeci | | | FIED | | | | | | | fied | | +---------+---------+---------+---------+---------+---------+---------+---------+---------+ | VAGINIT | [id number] | | Resolve | | Ambrose | | Vaginit | | | IS | 1 | /31 | d | /31 | [place] | | is | | | | (SNOMED | | | | DNP 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 | | | | | | CT) | | | | | | | | +---------+---------+---------+---------+---------+---------+---------+---------+---------+ | DYSURIA | [id number] | | Resolve | | Ambrose | | Dysuria | | | | 1 | /31 | d | /31 | Ank[place] | | | | | | (SNOMED | | | | DNP 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 | | | | | | CT) | | | | | | | | +---------+---------+---------+---------+---------+---------+---------+---------+---------+ | EDEMA | [id number] | | Inactiv | | Ambrose | | Edema | | | | 08 | | e | / | [place] | | | | | | (SNOMED | | | | DNP 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 | | | | | | CT) | | | | | | | | +---------+---------+---------+---------+---------+---------+---------+---------+---------+ | RENAL | [id number] | | Inactiv | | [facility] | | Acute | | | FAILURE | 1 | | e | / | [place] | | renal | | | , ACUTE | (SNOMED | | | | DNP 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 | | failure | | | | CT) | | | | | | | | | | | | | | | | syndrom | | | | | | | | | | e | | +---------+---------+---------+---------+---------+---------+---------+---------+---------+ | DIABETE | [id number] | | Inactiv | | Ambrose | | Periphe | | | S | 02 | / | e | / | [place] | | ral | | | MELLITU | (SNOMED | | | | DNP 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 | | circula | | | S, [...] | -CM) | | | | DNP 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 | | s | | | DIABETI [...] ropathy | | +---------+---------+---------+---------+---------+---------+---------+---------+---------+ | LOCALIZ | [id number] | | Resolve | | [facility] | | Disorde | | | ED | 09 | /30 | d | /30 | [place] | | r of | | | SWELLIN | (SNOMED | | | | DNP 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 | | forearm | | | G [...] | | | +---------+---------+---------+---------+---------+---------+---------+---------+---------+ | UTI | [id number] | | Resolve | | [facility] | | Urinary | | | | 5 | /13 | d | /13 | [place] | | tract | | | | (SNOMED | | | | DNP 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 | | infecti | | | | [...] | -CM) | | | | DNP 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 | | s | | | MELLITU [...] athy | | +---------+---------+---------+---------+---------+---------+---------+---------+---------+ | DEMENTI | [id number] | | Inactiv | | [facility]rose | | Procedu | | | A | | / | e | | [place] | | re | | | SCREENI | (SNOMED | | | | DNP 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 | | carried | | | NG | CT) | | | | | | out on | | | | | | | | | | | | | | | | | | | | subject | | +---------+---------+---------+---------+---------+---------+---------+---------+---------+ | CHANGE | [id number] | | Inactiv | | [facility] | | Altered | | | IN | 9 | / | e | /13 | [place] | | bowel | | | BOWEL | (SNOMED | | | | DNP 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 | | functio | | | HABITS | CT) | | | | | | n | | +---------+---------+---------+---------+---------+---------+---------+---------+---------+ | MILD | [id number] | | Inactiv | | [facility] | | Mild | | | COGNITI | | | e | | [place] | | cogniti | | | VE | (SNOMED | | | | DNP 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 | | ve | | | IMPAIRM | CT) | | | | | | disorde | | | ENT | | | | | | | r | | +---------+---------+---------+---------+---------+---------+---------+---------+---------+ | DIABETE | [id number] | | Inactiv | | Ambrose | | Diabeti | | | S | 884933 | /11 | e | / | [place] | | c | | | MELLITU | (SNOMED | | | | DNP 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 | | periphe | | | S, [...] fied | | +---------+---------+---------+---------+---------+---------+---------+---------+---------+ | DIABETE | [id number] | | Active | | David W | | Diabeti | | | S | [id number] | /15 | | /15 | Theen [...] s | | +---------+---------+---------+---------+---------+---------+---------+---------+---------+ | MUSCLE | 1429723 | | Active | | Christen | | Muscle | | | PAIN | 1 | 07 | | /07 | J. | | pain | | | | (SNOMED | | | | [place] | | | | | | CT) | | | | ta 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 | | | | +---------+---------+---------+---------+---------+---------+---------+---------+---------+ | DIABETE | [id number] | | Removed | | David W | | Diabeti | | | S | 940950 | | | | Theen | | [...] s | | +---------+---------+---------+---------+---------+---------+---------+---------+---------+ | MILD | [id number] | | Removed | | Maulik | | Mild | | | COGNITI | | | | Mendels | | [...] | | CTOMY, | | | | / | Marks | | d | | | SURVEIL [...] uterus | | +---------+---------+---------+---------+---------+---------+---------+---------+---------+ | COLONIC | [id number] | | Active | | Emeka | | Adenoma | | | | 06 | / | | /13 | Petre [...] | | | +---------+---------+---------+---------+---------+---------+---------+---------+---------+ | CONSTIP | [id number] | | Removed | | Emeka | | Constip | | | ATION | 8 | /13 | | /13 | Petre | | ation | | | | (SNOMED | | | | MD | | | | | | CT) | | | | | | | | +---------+---------+---------+---------+---------+---------+---------+---------+---------+ | CHANGE | [id number] | | Removed | | Emeka | | Altered | | | IN | 9 | /13 | | /13 | Petre | | bowel | | | BOWEL | (SNOMED | | | | MD | | functio | | | HABITS | CT) | | | | | | n | | +---------+---------+---------+---------+---------+---------+---------+---------+---------+ | DECREAS | [id number] | | Active | | Emeka | | Decreas | | | ED | 6 | 13 | | 13 | Petre | | e in | | | APPETIT | (SNOMED | | | | MD | | appetit | | | E | CT) | | | | | | e | | +---------+---------+---------+---------+---------+---------+---------+---------+---------+ | WEIGHT | [id number] | | Active | | Emeka | | Abnorma | | | LOSS | 01 | | | 13 | Petre | | l | | | ABNORMA | (SNOMED | | | | MD | | weight | | | L | CT) | | | | | | loss | | +---------+---------+---------+---------+---------+---------+---------+---------+---------+ | NAUSEA | 8693122 | | Active | | Emeka | | Nausea | | | ALONE | 07 | /13 | | /13 | Petre | | | | | | (SNOMED | | | | MD | | | | | | CT) | | | | | | | | +---------+---------+---------+---------+---------+---------+---------+---------+---------+ | RECTAL | 7885764 | | Active | | Emeka | | Rectal | | | BLEEDIN | 2 | /13 | | /13 | Petre | | hemorrh | | | G | (SNOMED | | | | MD | | age | | | | CT) | | | | | | | | +---------+---------+---------+---------+---------+---------+---------+---------+---------+ | DEMENTI | 8377419 | | Active | | Christen | | Dementi | | | A | 6 | /10 | | /10 | J. | | a | | | WITHOUT | (SNOMED | | | | [place] | | | | | | CT) | | | | ta 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 | | | | | BEHAVIO | | | | | | | | | | RAL | | | | | | | | | | DISTURB | | | | | | | | | | ANCE | | | | | | | | | +---------+---------+---------+---------+---------+---------+---------+---------+---------+ | CHRONIC | 7430125 | | Active | | Christen | | Chronic | | | | 03 | /10 | | /10 | J. | | | | | PROGRES | (SNOMED | | | | [place] | | progres | | | SIVE | CT) | | | | ta 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 | | sive | | | RENAL | | | | | | | renal | | | FAILURE | | | | | | | failure | | +---------+---------+---------+---------+---------+---------+---------+---------+---------+ | ANEMIA | [id number] | | Removed | | Christen | | Anemia | | | | 00 | /10 | | /10 | J. | | | | | | (SNOMED | | | | [place] | | | | | | CT) | | | | ta 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 | | | | +---------+---------+---------+---------+---------+---------+---------+---------+---------+ | DEMENTI | [id number] | | Removed | | Christen | | Procedu | | | A | 03 | / | | / | J. | | re | | | SCREENI | (SNOMED | | | | [place] | | carried | | | NG | CT) | | | | ta 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 | | out on | | | | | | | | | | | | | | | | | | | | subject | | +---------+---------+---------+---------+---------+---------+---------+---------+---------+ | FALL | [id number] | | Active | | Christen | | At risk | | | RISK | | | | | J. | | for | | | | (SNOMED | | | | [place] | | falls | | | | CT) | | | | ta 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 | | | | +---------+---------+---------+---------+---------+---------+---------+---------+---------+ | DIABETE | [id number] | | Resolve | | Christen | | Diabeti | | | S | 710122 | /14 | d | /15 | J. | | c | | | MELLITU | (SNOMED | | | | [place] | | periphe | | | S, TYPE | CT) | | | | ta 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 | | ral | | | II [...] s | | +---------+---------+---------+---------+---------+---------+---------+---------+---------+ | CORNS | [id number] | | Inactiv | | Kali | | Corns | | | AND | | | e | | Palacio | | and | | | CALLOSI | (SNOMED | | | | DPM | | callus | | | TIES | CT) | | | | | | | | +---------+---------+---------+---------+---------+---------+---------+---------+---------+ | HAMMER | [id number] | | Active | | Kali | | Abdieler | | | TOE, | 08 | / | | /01 | Hakeem | | toe | | | OTHER, | (SNOMED | | | | DPM | | | | | ACQUIRE | CT) | | | | | | | | | D | | | | | | | | | +---------+---------+---------+---------+---------+---------+---------+---------+---------+ | ETIENNE | 8630296 | | Active | | Kali | | Acquire | | | VALGUS, | 1 | / | | / | Hakeem | | d [...] ropathy | | +---------+---------+---------+---------+---------+---------+---------+---------+---------+ | DIABETE | 5483668 | | Removed | | Kali | [...] s | | +---------+---------+---------+---------+---------+---------+---------+---------+---------+ | ONYCHOM | 7882358 | | Active | | Kali | | Onychom | | | YCOSIS | 08 | /01 | | /01 | Palacio | | ycosis | | | | (SNOMED | | | | DPM | | | | | | CT) | | | | | | | | +---------+---------+---------+---------+---------+---------+---------+---------+---------+ | HEARTBU | 5601614 | | Active | | Tiesha | | Heartbu | | | RN | 0 | /19 | | /19 | | | rn | | | | (SNOMED | | | | [place] | | | | | | CT) | | | | MD | | | | +---------+---------+---------+---------+---------+---------+---------+---------+---------+ | TYPE 2 | [id number] | | Active | | Tiesha | | Disorde | | | DIABETE | 03 | /19 | | /19 | | | r due | | | S | (SNOMED | | | | [place] | | to type | | | [...] athy | | +---------+---------+---------+---------+---------+---------+---------+---------+---------+ | UTI | [id number] | | Removed | | Pako | | Urinary | | | | 5 | /13 | | /13 | Middlek | | tract | | | | (SNOMED | | | | auff | | infecti | | | | CT) | | | | 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 | | ous | | | | | | | | | | disease | | +---------+---------+---------+---------+---------+---------+---------+---------+---------+ | LOCALIZ | 3404896 | | Removed | | [place] | [...] | | | +---------+---------+---------+---------+---------+---------+---------+---------+---------+ | LIPOMA | 3768625 | | Active | | Lauranc | | Lipoma | | | | 2 | /14 | | /14 | e W | | (clinic | | | | (SNOMED | | | | Lila | | al) | | | | CT) | | | | MD | | | | +---------+---------+---------+---------+---------+---------+---------+---------+---------+ | VITAMIN | 2401089 | | Active | | David Paez | | Vitamin | | | D | 6 | / | | / | Theen | | D | | | DEFICIE | (SNOMED | | | | MD FACE | | deficie | | | NCY | CT) | | | | FACP | | ncy | | +---------+---------+---------+---------+---------+---------+---------+---------+---------+ | OBESITY | 4793928 | | Active | | David Paez | | Obesity | | | , BMI | 01 | | | | Theen | | | | | 35-39.9 | (SNOMED | | | | MD FACE | | | | | , ADULT | CT) | | | | FACP | | | | +---------+---------+---------+---------+---------+---------+---------+---------+---------+ | DIABETE | 5690354 | | Removed | | David aPez | | Diabeti | | | S | 138388 | /14 | | | Theen | | c [...] s | | +---------+---------+---------+---------+---------+---------+---------+---------+---------+ | HALLUX | 9464763 | | Inactiv | | Kali | [...] | | | +---------+---------+---------+---------+---------+---------+---------+---------+---------+ | HAMMER | 3563692 | | Inactiv | | Kali | [...] | | | +---------+---------+---------+---------+---------+---------+---------+---------+---------+ | ONYCHOM | 8025645 | | Inactiv | | Kali | [...] ropathy | | +---------+---------+---------+---------+---------+---------+---------+---------+---------+ | DIABETE | 9688349 | | Inactiv | | Kali | | Periphe | | | S | 02 | | e | | Palacio | [...] s | | +---------+---------+---------+---------+---------+---------+---------+---------+---------+ | SCREENI | 8070723 | | Resolve | | Lauranc | | Depress | | | NG FOR | 06 | /10 | d | /10 | e W | | ion | | | DEPRESS | (SNOMED | | | | Lila | | screeni | | | ION | CT) | | | | MD | | ng | | +---------+---------+---------+---------+---------+---------+---------+---------+---------+ | SCREENI | 4728769 | | Resolve | | Lauranc | [...] | | | +---------+---------+---------+---------+---------+---------+---------+---------+---------+ | SCREENI | 7027363 | | Resolve | | Lauranc | [...] ng | | +---------+---------+---------+---------+---------+---------+---------+---------+---------+ | SCREENI | 9900378 | | Removed | | Geetha | | Alcohol | | | NG FOR | 01 | /10 | | /10 | [facility] | | | | | ALCOHOL | (SNOMED | | | | [facility] | | consump | | | ISM | CT) | | | | | | tion | | | | | | | | | | screeni | | | | | | | | | | ng | | +---------+---------+---------+---------+---------+---------+---------+---------+---------+ | SCREENI | 9781578 | | Removed | | Geetha | | Screeni | | | NG FOR | 05 | / | | /10 | Patrick [...] | | | +---------+---------+---------+---------+---------+---------+---------+---------+---------+ | SCREENI | 8812598 | | Removed | | Geetha | | Depress | | | NG FOR | 06 | | | | [place] | | ion | | | DEPRESS | (SNOMED | | | | [facility] | | screeni | | | ION | CT) | | | | | | ng | | +---------+---------+---------+---------+---------+---------+---------+---------+---------+ | RENAL | 2700413 | | Removed | | Lauranc | | Acute | | | FAILURE | 1 | / | | / | e W | | renal | | | , ACUTE | (SNOMED | | | | Lila | | failure | | | | CT) | | | | MD | | | | | | | | | | | | syndrom | | | | | | | | | | e | | +---------+---------+---------+---------+---------+---------+---------+---------+---------+ | EDEMA | 5751687 | | Removed | | Lauranc | | Edema | | | | 08 | /15 | | /11 | e W | | | | | | (SNOMED | | | | Lila | | | | | | CT) | | | | MD | | | | +---------+---------+---------+---------+---------+---------+---------+---------+---------+ | RENAL | 0743318 | | Active | | Luz | [...] e | | +---------+---------+---------+---------+---------+---------+---------+---------+---------+ | PERIPHE | 1165169 | | Active | | Lauranc | [...] disease | | +---------+---------+---------+---------+---------+---------+---------+---------+---------+ | CANDIDI | 7175137 | | Active | | Susanna | | Candidi | | | ASIS, | 6 | / | | / | Medel | | asis of | | | SKIN | (SNOMED | | | | MD | | skin | | | | CT) | | | | | | | | +---------+---------+---------+---------+---------+---------+---------+---------+---------+ | DYSURIA | 2377021 | | Removed | | Erica | | Dysuria | | | | 1 | / | | | Paul | | | | | | (SNOMED | | | | MA | | | | | | CT) | | | | | | | | +---------+---------+---------+---------+---------+---------+---------+---------+---------+ | VAGINIT | 9634203 | | Removed | | Erica | | Vaginit | | | IS | 1 | / | | / | Paul | | is | | | | (SNOMED | | | | MA | | | | | | CT) | | | | | | | | +---------+---------+---------+---------+---------+---------+---------+---------+---------+ | RLQ | 8725981 | | Resolve | | Lauranc | | Right | | | PAIN | 02 | | d | /11 | e W | | lower | | | | (SNOMED | | | | Lila | | quadran | | | | CT) | | | | MD | | t pain | | +---------+---------+---------+---------+---------+---------+---------+---------+---------+ | ABDOMIN | 3731632 | | Resolve | | Lauranc | | Abdomin | | | AL | 1 | | d | 11 | e W | | al pain [...] | | | +---------+---------+---------+---------+---------+---------+---------+---------+---------+ | KNEE | 0003206 | | Active | | Lauranc | | Knee | | | PAIN | 3 | /14 | | /14 | e W | | pain | | | | (SNOMED | | | | Lila | | | | | | CT) | | | | MD | | | | +---------+---------+---------+---------+---------+---------+---------+---------+---------+ | Questio | 4721266 | | Correct | | Lauranc | [...] e | | +---------+---------+---------+---------+---------+---------+---------+---------+---------+ | VERTIGO | 1240457 | | Active | | Luz | | Vertigo | | | | | / | | / | Asad | | | | | | (SNOMED | | | | RN | | | | | | CT) | | | | | | | | +---------+---------+---------+---------+---------+---------+---------+---------+---------+ | CHEST | [id number] | | Inactiv | | Genny | | Chest | | | PAIN | 9 | | e | / | [place] | | pain | | | | (SNOMED | | | | | | | | | | CT) | | | | | | | | +---------+---------+---------+---------+---------+---------+---------+---------+---------+ | CHEST | [id number] | | Inactiv | | Lauranc | | Acute | | | PAIN, | | | e | /14 | e W [...] fied | | +---------+---------+---------+---------+---------+---------+---------+---------+---------+ | CEREBRO | [id number] | | Active | | Rogers | | 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 | | | R | (SNOMED | | | | MD | | r | | | DISEASE | CT) | | | | | | disease | | +---------+---------+---------+---------+---------+---------+---------+---------+---------+ | History | [id number] | | Active | | Rogers | | Cerebra | | | of | | /16 | | /16 | Laith [...] | PROPHYL | (ICD-10 | / | | | e W [...] | | | +---------+---------+---------+---------+---------+---------+---------+---------+---------+ | DIABETI | [id number] | | Removed | | Rogers | [...] thy | | +---------+---------+---------+---------+---------+---------+---------+---------+---------+ | HYPERLI | 3576807 | | Active | | Rogers | | Hyperli | | | PIDEMIA | 4 | /30 | | /30 | Laith | | pidemia | | | | (SNOMED | | | | MD | | | | | | CT) | | | | | | | | +---------+---------+---------+---------+---------+---------+---------+---------+---------+ | History | [id number] | | Active | | Rogers | [...] e | | +---------+---------+---------+---------+---------+---------+---------+---------+---------+ | CEREBRA | 4632137 | | Correct | | Rogers | [...] s | | +---------+---------+---------+---------+---------+---------+---------+---------+---------+ | ABDOMIN | 4270041 | | Removed | | Patricia | [...] | | | +---------+---------+---------+---------+---------+---------+---------+---------+---------+ | RLQ | 9814232 | | Removed | | Patricia | [...] fied | | +---------+---------+---------+---------+---------+---------+---------+---------+---------+ | CARPAL | 6337735 | | Active | | Rogers | | Carpal | | | 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 | | | | MD | | 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, LEFT | CT) | | | | | | e | | +---------+---------+---------+---------+---------+---------+---------+---------+---------+ | Questio | [id number] | | Removed | | Rogers | [...] | | | +---------+---------+---------+---------+---------+---------+---------+---------+---------+ | GAIT | 3314210 | | Active | | Rogers | | Abnorma | | | IMBALAN | | | | | Laith | | l gait | | | CE | (SNOMED | | | | MD | | | | | | CT) | | | | | | | | +---------+---------+---------+---------+---------+---------+---------+---------+---------+ | BRAIN | 2004729 | | Correct | | Rogers | | Brainst | | | STEM | | | ion | | Laith | | em | | | STROKE | (SNOMED | | | | MD | | stroke | | | | CT) | | | | | | syndrom | | | | | | | | | | e | | +---------+---------+---------+---------+---------+---------+---------+---------+---------+ | PARESTH | [id number] | | Removed | | Rogers | | Paresth | | | ESIA, | 04 | /25 | | /25 | Laith | | esia of | | | HANDS | (SNOMED | | | | MD | | hand | | | | CT) | | | | | | | | +---------+---------+---------+---------+---------+---------+---------+---------+---------+ | PERIPHE | [id number] | | Correct | | Rogers | | Periphe | | | RAL | 06 | / | ion | /25 | Laith | | ral | | | NEUROPA | (SNOMED | | | | MD | | nerve | | | THY | CT) | | | | | | disease | | +---------+---------+---------+---------+---------+---------+---------+---------+---------+ | THYROID | [id number] | | Active | | Luz | | Thyroid | | | NODULE | 05 | /20 | | /20 | Eladio | | nodule | | | | (SNOMED | | | | [facility] | | | | | | CT) | | | | | | | | +---------+---------+---------+---------+---------+---------+---------+---------+---------+ | TIA | [id number] | | Active | | Lauranc | [...] a | | +---------+---------+---------+---------+---------+---------+---------+---------+---------+ | SYNCOPE | [id number] | | Removed | | Lauranc | | Syncope | | | | | | | | e W | | | | | | (SNOMED | | | | Lila | | | | | | CT) | | | | MD | | | | +---------+---------+---------+---------+---------+---------+---------+---------+---------+ | GASTROP | [id number] | | Active | | Lauranc | | 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 | | | | (SNOMED | | | | Lila | | syndrom | | | | CT) | | | | MD | | e | | +---------+---------+---------+---------+---------+---------+---------+---------+---------+ | CONSTIP | [id number] | | Active | | Lauranc | | Chronic | | | ATION, | 09 | /08 | | /08 | e W | | | | | CHRONIC | (SNOMED | | | | Lila | | constip | | | | CT) | | | | MD | | ation | | +---------+---------+---------+---------+---------+---------+---------+---------+---------+ | POSTHER | [id number] | | Active | | Lauranc | | Posther | | | 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 | (SNOMED | | | | Lila | | neuralg | | | [place] | CT) | | | | MD | | ia | | +---------+---------+---------+---------+---------+---------+---------+---------+---------+ | DIZZINE | [id number] | | Removed | | Lauranc | | Dizzine | | | SS | 03 | /08 | | /08 | e W | | ss | | | | (SNOMED | | | | Lila | | | | | | CT) | | | | MD | | | | +---------+---------+---------+---------+---------+---------+---------+---------+---------+ | DEHYDRA | [id number] | | Removed | | Lauranc | | Dehydra | | | TION | 6 | /08 | | /08 | e W | | tion | | | | (SNOMED | | | | Lila | | | | | | CT) | | | | MD | | | | +---------+---------+---------+---------+---------+---------+---------+---------+---------+ | DIABETE | [id number] | | Removed | | Lauranc | [...] | | | +---------+---------+---------+---------+---------+---------+---------+---------+---------+ | HYPERTE | [id number] | | Active | | Lauranc | [...] 1 TAB | | | BUSPIRONE | [id number] | Kali | | HCL 7.5 MG | three | | | HCL | 1 | Palacio DPM | | TABS | times per | | | | | | | | day | | | | | | + + + + + + + + | LANTUS 100 | 25 units | | | INSULIN | 1616990997 | Jesus | | UNIT/ML | two [...] two times | | | MECLIZINE | 5364080334 | Laurance W | | HCL 25 MG | per day | | | HCL | 0 | Lila MD | | TABS | | | | | | | + + + + + + + + | MECLIZINE | One tab by | | | MECLIZINE | 9841190358 | Laurance W | | HCL 25 [...] 1 tab | | | PREGABALIN | 6062700842 | Ambrose | | MG CAPS | three | | | | 8 | Ankur DNP | | | times per | | | | | 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 | | | day. Pt | | | | | | | | states as | | | | | | | | needed | | | | | | + + + + + + + + | PROMETHAZI | Take one | | | PROMETHAZI | 3285141831 | Edna | | NE HCL 25 [...] 3U before | | | INSULIN | 5655659880 | Scarlett | | 100 | lunch [...] POTASSIUM | | | | POTASSIUM | [id number] | Kali | | CHLORIDE | | | | CHLORIDE | 1 | Palacio DPM | | ER 10 MEQ | | | | | | | | CR-CAPS | | | | | | | + + + + + + + + | DULOXETINE | 1 tab one | | | DULOXETINE | 1288851272 | Bailey W | | HCL 30 MG | time per | | | HCL | 6 | Lila MD | | CPEP | day | | | | | | + + + + + + + + | PROCHLORPE | Insert one | | | PROCHLORPE | 8903742761 | Edna | | RAZINE 25 | [...] Use daily | | | INSULIN | 1498759703 | Ambrose | | NEEDLE | to inject | | | PEN NEEDLE | 0 | Ankur DNP | | ULTRAFINE | insulin | | | | | 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 | | 29G X | | | | | | | | 12.7MM | | | | | | | + + + + + + + + | DRAMAMINE | take 1-2 | | | TAYLER | 8731350916 | Christen Ramirez | | 50 MG TABS | tabs 4 | | | MARCELA | 2 | Raumakita | | | times per | | | | | 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 | | | day as | | | | | | | | needed | | | | | | + + + + + + + + | VICTOZA 18 | | | | LIRAGLUTID | [id number] | Jesus | | MG/3ML | | [...] | | | | * | | 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 | + + + + + + + + | BASAGLAR | 1 pen | | | INSULIN | 9666704797 | Christen Ramirez | | KWIKPEN | every 3 | | | GLARGINE | 9 | Raumakita | | 100 | days 56 | | | | | 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 | | UNIT/ML | units q | [...] by mouth | | | MECLIZINE | 0711003650 | Bailey W | | HCL 25 [...] mix and | | | NA | 6626122043 | Maulik | | BOWEL PREP | [...] take 2 | | | GABAPENTIN | 8501951828 | Bailey W | | 300 MG [...] Inject 0.6 | | | LIRAGLUTID | 7857151210 | Christen Ramirez | | MG/3ML | mg daily | | | E | 2 | Raumakita | | SOPN | | | | | | 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 | + + + + + + + + | ONDANSETRO | 1 tab | | | ONDANSETRO | 8167743996 | Kali | | N HCL 4 MG | every 4 | | | N HCL | 3 | Palacio DPM | | TABS | hours | | | | | | + + + + + + + + | VICTOZA 18 | | | | LIRAGLUTID | 7522778318 | Bailey W | | MG/3ML | [...] 1 tab | | | GABAPENTIN | 8918182341 | Jesus | | 300 MG | po tid . | | | | 4 | Ethan MD | | CAPS | Pt states | | | | | | | | as needed | | | | | | + + + + + + + + | COLACE 100 | 1 tab by | | | DOCUSATE | 6905537196 | Kali | | MG CAPS | mouth | | | SODIUM | 0 | Palacio DPM | | | daily at | | | | | | | | bedtime | | | | | | + + + + + + + + | CLONAZEPAM | Take one | | | CLONAZEPAM | 0025869039 | Edna | | 0.5 MG | [...] | | | | | | | 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 | + + + + + + + + | ASPIRIN | take 1 | | | ASPIRIN | 7090792469 | Rogers | | 325 MG | [...] per | | | FOOT CARE | 1948374873 | Ambrose | | INSOLES | custom | | | PRODUCTS | 1 | Ankur DNP | | | fit from | | | | | 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 | | | podiatry | | | | | | | | Dx. | | | | | | | | E11.65, | | | | | | | | e11.21 | | | | | | + + + + + + + + | LYRICA 50 | 1 tab | | | PREGABALIN | 4622613072 | Bailey W | | MG CAPS | three | | | | 8 | Lila MD | | | times per | | | | | | | | day | | | | | | + + + + + + + + | GLUCOPHAGE | 1 tab one | | | METFORMIN | 1649672315 | Bailey W | | XR 500 MG | time per | | | HCL | 3 | Lila MD | | [id number] | day | | | | | | + + + + + + + + | HUMALOG | BS <150 - | | | INSULIN | 1123686829 | Christen Ramirez | | 100 | No insulin | | | LISPRO | 1 | Raum[place]ita | | UNIT/ML | BS | | | (HUMAN) | | 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 | | SOLN | 150-200 | | [...] Use 5 | | | INSULIN | 1929375388 | Ambrose | | SYRINGE | times | | | SYRINGE-NE | 1 | Ankur DNP | | ULTRAFINE | daily to | | | EDLE U-100 | | 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 | | 29G X /" | inject [...] 50 units | | | INSULIN | 9110105636 | Pako | | UNIT/ML | once per | | | GLARGINE | 3 | Middlekauf | | SOLN | day. Pt | | | | | f 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 | | | states she | | [...] | | | | | | | 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 | + + + + + + + + | NITROFURAN | Take one | | | NITROFURAN | 8780187954 | Edna | | TOIN | capsule [...] Use daily | | | GLUCOSE | 3955453737 | Ambrose | | BLOOD | to check | | | BLOOD | 4 | Ankur DNP | | GLUCOSE | blood | | | | | 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 | | TEST STRP | sugar | | | | | | + + + + + + + + | ERGOCALCIF | One | | | ERGOCALCIF | 6293337929 | Mariano | | QUANG 51517 | capsule by | | | QUANG [...] take 2 | | | GABAPENTIN | 1664838894 | Mariano | | 300 MG | [...] 10ml QAM | | | METFORMIN | 0008664557 | Mariano | | MG/5ML | Liquid due | | | HCL | 1 | Ariella | | ANGYN | to | | | | | CCMA | | | Dysphagia | | | | | | + + + + + + + + | ASPIRIN EC | take 1 | | | ASPIRIN | 3448926165 | Rogers | | 325 MG | tablet | | | | 1 | Laith MD | | TBEC | daily | | | | | | + + + + + + + + | RELION | Use to | | | GLUCOSE | 6607112536 | Kali | | BLOOD | test BG | | | BLOOD | 4 | Palacio DPM | | GLUCOSE | one time | | | | | | | TEST STRP | per day | | | | | | + + + + + + + + | NITROFURAN | | | | NITROFURAN | 9550221391 | Edna | | TOIN | | [...] one tablet | | | DOCUSATE | 0993494100 | Laurance W | | MG CAPS | by mouth | | | SODIUM | 0 | Lila MD | | | at bedtime | | | | | | + + + + + + + + | BACTRIM DS | 1 by mouth | | | TRIMETHOPR | 4060091102 | Laurance W | | 800-160 | twice a | | | IM-SULFAME | 1 | Lila MD | | MG TABS | day for 3 | | | THOXAZOLE | | | | | days | | | | | | + + + + + + + + | RELION PEN | | | | INSULIN | 4853177730 | Ambrose | | NEEDLES | | | | PEN NEEDLE | 4 | Ankur DNP | | 31G X 8 MM | | | | | | 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 | + + + + + + + + | VICTOZA 18 | .6 mg x 1 | | | LIRAGLUTID | 0151228102 | Ambrose | | MG/3ML | week then | | | E | 2 | Ankur DNP | | SOPN | 1.2 mg | | | | | 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 | | | daily per | | | | | | | | week | | | | | | + + + + + + + + | ASPIRIN 81 | one time | | | ASPIRIN | 5289680380 | Mariano | | MG ORAL | [...] | | | | | | | 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 | + + + + + + + + | DIABETIC | 1 pair per | | | DIABETIC | | [facility]rose | | ORTHOTIC | custom | | | ORTHOTIC | | Ankur DNP | | SHOES | fit from | | | SHOES | | 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 | | | podiatry | | | | | | | | E11.65, | | | | | | | | e11.21 | | | | | | + + + + + + + + | GABAPENTIN | two times | | | GABAPENTIN | 2727949901 | Mariano | | 100 MG | per day | | | | 1 | Ariella | | CAPS | | | | | | CCMA | + + + + + + + + | MISC | | | | MISC | | Ambrose | | | | | | | | Ankur DNP | | | | | | | | 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 | + + + + + + + + | BIOTIN 1 | | | | BIOTIN | 7463375350 | Kali | | MG CAPS | | | | | 2 | Palacio DPM | + + + + + + + + | PIOGLITAZO | Take 1 tab | | | PIOGLITAZO | 0354320511 | Jesus | | NE HCL 15 [...] two times | | | MECLIZINE | 8505582468 | Mariano | | HCL 25 MG [...] take 1 | | | ASPIRIN | 4737183116 | Mariano | | 325 MG | tablet | | | | 1 | Ariella | | TBEC | daily | | | | | CCMA | + + + + + + + + | PIOGLITAZO | Take 1 tab | | | PIOGLITAZO | 2844718458 | Christen Ramirez | | NE HCL 15 | by mouth | | | NE HCL | 6 | Raumakita | | MG TABS | one time | | | | | 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 | | | per day in | | | | | | | | the AM | | | | | | + + + + + + + + | NEURONTIN | take 1 tab | | | GABAPENTIN | 8334999544 | Bailey W | | 300 MG | po tid | | | | 4 | Lila MD | | CAPS | | | | | | | + + + + + + + + | DIOVAN 160 | one time | | | VALSARTAN | 8821051518 | Mariano | | MG TABS | per day | | | | 4 | Ariella | | | | | | | | CCMA | + + + + + + + + | ASPIRIN | take 1 | | | ASPIRIN | 9405261146 | Franciscoance W | | 325 MG | tablet [...] 1 pill | | | CEPHALEXIN | 9368162549 | Tiesha | | MG CAPS | twice a | | | | 1 | Maria Isabel MD | | | day for 7 | | | | | | | | days | | | | | | + + + + + + + + | GABAPENTIN | one tablet | | | GABAPENTIN | 2414178995 | Franciscoance W | | 100 MG [...] 1 tab | | | MECLIZINE | 2665802512 | Laurance W | | HCL 25 MG | three | | | HCL | 0 | Lila MD | | TABS | times per | | | | | | | | day | | | | | | + + + + + + + + | NITROFURAN | Take one | | | NITROFURAN | 0162540704 | Edna | | TOIN | capsule [...] 0.02 ml | | | EXENATIDE | 2636678722 | Laurance W | | MCG PEN 5 | injection | | | | 1 | Lila MD | | MCG/0.02ML | two times | | | | | | | SOPN | per day | | | | | | + + + + + + + + | FLUCONAZOL | take one | | | FLUCONAZOL | 8301662705 | Franciscoance W | | E 150 MG | tablet PO | | | E | 1 | Lila MD | | TABS | x 1 repeat | | | | | | | | in 3 days | | | | | | + + + + + + + + | PROCHLORPE | Insert one | | | PROCHLORPE | 4367741139 | Ambrose | | RAZINE 25 | | | | RAZINE | 0 | Ankur DNP | | MG SUPP | suppositor | | | | | 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 | | | y rectally | | | | | | | | every 24 | | | | | | | | hours as | | | | | | | | needed | | | | | | + + + + + + + + | HEARTBU | | | | HEARTBU | | Franciscoance W | | RN/NAUSEA* | | | [...] tab two | | | CILOSTAZOL | 6719500885 | Kali | | 100 MG | times per | | | | 1 | Palacio DPM | | TABS | day | | | | | | + + + + + + + + | RIOMET 500 | 10ml's two | | | METFORMIN | 3929207054 | Laurance W | | MG/5ML | [...] D | | | | CHOLECALCI | 0141388192 | Kali | | 1000 UNIT | | | | FEROL | 1 | Palacio DPM | | TABS | | | | | | | + + + + + + + + | NEURONTIN | take 1 tab | | | GABAPENTIN | 3055597813 | Christen Ramirez | | 300 MG | po tid . | | | | 4 | Raumakita | | CAPS | Pt states | | | | | 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 | | | as needed | | | | | | + + + + + + + + | BYETTA 5 | Take as | | | EXENATIDE | 1757623524 | Christen Ramirez | | MCG PEN 5 | directed | | | | 1 | Raumakita | | MCG/0.02ML | once daily | | | | | 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 | | SOPN | in the AM [...] two times | | | METFORMIN | 4161880765 | Mariano | | HCL 1000 | per day | | | HCL | 5 | Ariella | | MG TABS | | | | | | CCMA | + + + + + + + + | GABAPENTIN | Take 2 | | | GABAPENTIN | 1458337762 | Bailey W | | 300 MG [...] | | | | | | | 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 | + + + + + + + + | LYRICA 50 | TAKE ONE | | | PREGABALIN | 3589448623 | Kesha | | MG CAPS | [...] Take one | | | BIOTIN | 3813986461 | Lorri | | MG CAPS | daily in | | | | 2 | Prabhakar | | | the AM | | | | | NCMA | + + + + + + + + | BD INSULIN | Use to | | | INSULIN | 4098168087 | Ambrose | | SYRINGE | inject | | | SYRINGE-NE | 6 | Ankur DNP | | ULTRAFINE | insulin 5 | | | EDLE U-100 | | 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 | | 29G X /2" | times per | | | | | | | 0.5 ML | day | | | | | | + + + + + + + + | RELION | Use to | | | GLUCOSE | 0112238826 | Ambrose | | BLOOD | check | | | BLOOD | 4 | Ankur DNP | | GLUCOSE | blood | | | | | 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 | | TEST STRP | sugars | [...] use with | | | BLOOD | 1204121296 | Ambrose | | PRIME | test | | | GLUCOSE | 2 | Ankur DNP | | MONITOR | strips to | | | MONITORING | | 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 | | DYLNA | test BG | | | SUPPL | | | | | daily | | | | | | + + + + + + + + | RELION | use when | | | GLUCOSE | 4852589160 | Ambrose | | BLOOD | testing BG | | | BLOOD | 4 | Ankur DNP | | GLUCOSE | | | | | | 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 | | TEST STRP | | | | | | | + + + + + + + + | VALSARTAN | Take one | | | VALSARTAN | 5512801865 | Ambrose | | 160 MG | tablet | | | | 7 | Ankur DNP | | TABS | daily in | | | | | 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 | | | the AM | | | | | | + + + + + + + + | BASAGLAR | 68 Units | | | INSULIN | 4541119953 | Ambrose | | KWIKPEN | every | | | GLARGINE | 9 | Ankur DNP | | 100 | morning | | | | | 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 | | UNIT/ML | (34 units | | | | | | | SOPN | on each | | | | | | | | side) | | | | | | + + + + + + + + | NOVOLOG | 12 Units | | | INSULIN | 9680626097 | Ambrose | | 100 | before | | | ASPART | 1 | Ankur DNP | | UNIT/ML | meals | | | | | 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 | | SOLN | [id number] | | [...] 65 Units | | | INSULIN | 6584545043 | Ambrose | | KWIKPEN | every | | | GLARGINE | 9 | Ankur DNP | | 100 | morning | | | | | 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 | | UNIT/ML | | | | | | | | SOPN | | | | | | | + + + + + + + + | BASAGLAR | 60 Units | | | INSULIN | 7188904119 | Ambrose | | KWIKPEN | every | | | GLARGINE | 9 | Ankur DNP | | 100 | morning | | | | | 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 | | UNIT/ML | | | | | | | | SOPN | | | | | | | + + + + + + + + | MIRALAX | 17 gm | | | POLYETHYLE | 3800468950 | Ambrose | | POWD | daily | | | NE GLYCOL | 2 | Ankur DNP | | | stirred | | | 3350 | | 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 | | | into 4-8 | | [...] 1 pill | | | DOCUSATE | 6123642161 | Ambrose | | MG CAPS | twice | | | SODIUM | 0 | Ankur DNP | | | daily for | | | | | 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 | | | soft | | | | | | | | stools | | | | | | + + + + + + + + | LYRICA 100 | 1 capsule | | | PREGABALIN | 8211446679 | Ambrose | | MG CAPS | three | | | | 8 | Ankur DNP | | | times | | | | | 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 | | | daily for | | | | | | | | neuropathy | | | | | | + + + + + + + + | LIPITOR 20 | take 1 | | | ATORVASTAT | 1223173876 | Ambrose | | MG TABS | tablet by | | | IN CALCIUM | 3 | Aknur DNP | | | mouth | | | | | 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 | | | daily in | | | | | | | | the | | | | | | | | evening | | | | | | + + + + + + + + | GLIPIZIDE | Take 1 | | | GLIPIZIDE | 2519759490 | Ambrose | | XL 2.5 MG | tablet | | | | 1 | Ankur DNP | | [id number]-TOO | p.o. | | | | | 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 | | | q.a.m. | | | | | | + + + + + + + + | OMEPRAZOLE | Take one | | | OMEPRAZOLE | 4710902381 | Ambrose | | 40 MG | by mouth | | | | 0 | Ankur DNP | | CPDR | one time | | | | | 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 | | | per day | | [...] tab by | | | MECLIZINE | 6582373671 | Ambrose | | HCL 25 MG | mouth | | | HCL | 0 | Ankur DNP | | TABS | three | | | | | 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 | | | times per | | | | | | | | day | | | | | | + + + + + + + + | PLAVIX 75 | 1 tab by | | | CLOPIDOGRE | 3937656144 | Ambrose | | MG TABS | mouth one | | | L | 1 | Ankur DNP | | | time per | | | BISULFATE | | 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 | | | day in the | | | | | | | | evening | | | | | | + + + + + + + + | VITAMIN D | Take one | | | CHOLECALCI | 9564393614 | Ambrose | | 1000 UNIT | tablet | | | FEROL | 1 | Ankur DNP | | TABS | daily in | | | | | 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 | | | the AM | | | | | | + + + + + + + + | PANTOPRAZO | Take one | | | PANTOPRAZO | 7185761224 | Ambrose | | LE SODIUM | tablet by | | | LE SODIUM | 8 | Ankur DNP | | 40 MG TBEC | mouth once | | | | | 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 | | | daily | | | | | | + + + + + + + + | LASIX 80 | 1 tab by | | | FUROSEMIDE | 6609415173 | Ambrose | | MG TABS | mouth one | | | | 5 | Ankur DNP | | | time per | | | | | 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 | | | day in the | | | | | | | | AM | | | | | | + + + + + + + + | POTASSIUM | Take one | | | POTASSIUM | 0102125485 | Ambrose | | CHLORIDE | cap daily | | | CHLORIDE | 1 | Ankur DNP | | ER 10 MEQ | in the AM | | | | | 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 | | CR-CAPS | | | | | | | + + + + + + + + | BD PEN | Use daily | | | INSULIN | 2607272479 | Ambrose | | NEEDLE | to inject | | | PEN NEEDLE | 0 | Ankur DNP | | ULTRAFINE | insulin | | | | | 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 | | 29G X | | | | | | | | 12.7MM | | | | | | | + + + + + + + + | BD INSULIN | Use 5 | | | INSULIN | 8171893119 | Ambrose | | SYRINGE | times | | | SYRINGE-NE | 1 | Ankur DNP | | ULTRAFINE | daily to | | | EDLE U-100 | | 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 | | 29G X 1/2" | inject [...] Take one | | | BIOTIN | 2639726018 | Ambrose | | MG CAPS | daily in | | | | 2 | Ankur DNP | | | the AM | | | | | 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 | + + + + + + + + | COLACE 100 | 1 pill BID | | | DOCUSATE | 5518766959 | Ambrose | | MG CAPS | | | | SODIUM | 0 | Aknur DNP | | | | | | | | 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 | + + + + + + + + | NYSTATIN-T | Apply thin | | | NYSTATIN-T | 6184921217 | Ambrose | | RIAMCINOLO | layer to | | | RIAMCINOLO | 5 | Ankur DNP | | NE | affected | | | NE | | 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 | | 448241-2.1 | area BID | | | | | | | UNIT/GM-% | prn for | | | | | | | CREA | itching | | | | | | + + + + + + + + | RELION PEN | | | | INSULIN | 2748000013 | David | | NEEDLES | | | | PEN NEEDLE | 4 | Mark DO | | 31G X 8 MM | | | | | | | + + + + + + + + | NOVOLOG | 3U before | | | INSULIN | 4155692518 | David | | 100 | lunch and | | | ASPART | 1 | Mark DO | | UNIT/ML | 5U before [...] 56 Units | | | INSULIN | 4201114146 | David | | GRACEIKPEN | every | | | GLARGINE | 9 | Mark DO | | 100 | morning | | | | | | | UNIT/ML | | | | | | | | SOPN | | | | | | | + + + + + + + + | PEN | Use one | | | PEN | | David | | NEEDLES | pen needle | | | NEEDLES | | Rayyne DO | | FOR | every | [...] 1 tid | | | PREGABALIN | 6030096812 | Christen Escudero. | | MG CAPS | | | | | 8 | Raumakita | | | | | | | | 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 | + + + + + + + + | LYRICA 100 | 1 tab | | | PREGABALIN | 3157346590 | Christen Ramirez | | MG CAPS | three | | | | 8 | Raumakita | | | times per | | | | | 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 | | | day. Pt | | | | | | | | states as | | | | | | | | needed | | | | | | + + + + + + + + | VICTOZA 18 | .6 mg x 1 | | | LIRAGLUTID | 3073742635 | Christen Ramirez | | MG/3ML | week then | | | E | 2 | Raumakita | | SOPN | 1.2 mg | | | | | 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 | | | daily per | | | | | | | | week | | | | | | + + + + + + + + | HUMALOG | 3U before | | | INSULIN | 2012739652 | Christen Ramirez | | 100 | lunch and | | | LISPRO | 1 | Raumakita | | UNIT/ML | 5U before | | | | | 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 | | SOLN | Dinner | | [...] Inject 0.6 | | | LIRAGLUTID | 1005767594 | Christen Ramirez | | MG/3ML | mg daily | | | E | 2 | Raumakita | | SOPN | | | | | | 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 | + + + + + + + + | BASAGLAR | 56 Units | | | INSULIN | 9159246801 | Christen Ramirez | | KWIKPEN | by mouth | | | GLARGINE | 9 | [place] | | 100 | every | | | | | 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 | | UNIT/ML | morning | | | | | | | SOPN | | | | | | | + + + + + + + + | VICTOZA 18 | 5 unit AM | | | LIRAGLUTID | [id number] | Christen Ramirez | | MG/3ML | and 5 | | | E | 2 | [place] | | SOPN | units PM | | | | | 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 | + + + + + + + + | BASAGLAR | 1 pen | | | INSULIN | [id number] | Christen Ramirez | | KWIKPEN | every 3 | | | GLARGINE | 9 | [place] | | 100 | days 56 | | | | | 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 | | UNIT/ML | units q | | | | | | | SOPN | Day | | | | | | + + + + + + + + | BYETTA 5 | Take as | | | EXENATIDE | [id number] | Christen Ramirez | | MCG PEN 5 | directed | | | | 1 | [place] | | MCG/0.02ML | once daily | | | | | 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 | | SOPN | in the AM | | | | | | + + + + + + + + | LANTUS 100 | 56 units | | | INSULIN | [id number] | Kaykay | | UNIT/ML | qAM | | | GLARGINE | 3 | Mora DO | | SOLN | | | | | | | + + + + + + + + | SUPREP | mix and | | | NA | [phone] | Emeka | | BOWEL PREP | [...] <150 - | | | INSULIN | [id number] | Tiesha | | 100 | No [...] Use daily | | | GLUCOSE | [id number] | Tiesha | | BLOOD | to check | | | BLOOD | 4 | [place] MD | | GLUCOSE | blood | | | | | | | TEST STRP | sugar | | | | | | + + + + + + + + | DIABETIC | 1 pair per | | | DIABETIC | | Tiesha | | ORTHOTIC | custom | | | ORTHOTIC | | [place] MD | | SHOES | fit from | | | SHOES | | | | | podiatry | | | | | | | | E11.65, | | | | | | | | e11.21 | | | | | | + + + + + + + + | DIABETIC | 1 pair per | | | FOOT CARE | [id number] | Tiesha | | INSOLES | custom [...] 1 pill | | | CEPHALEXIN | [id number] | Pako | | MG CAPS | twice a | | | | 1 | [place] | | | day for 7 | | | | | f 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 | | | days | | | | | | + + + + + + + + | BYETTA 5 | 0.02 ml | | | EXENATIDE | [id number] | Laurance W | | MCG PEN 5 | injection | | | | 1 | Lila MD | | MCG/0.02ML | two times | | | | | | | SOPN | per day | | | | | | + + + + + + + + | LYRICA 100 | 1 tab | | | PREGABALIN | [id number] | Laurance W | | MG CAPS | three | | | | 8 | Lila MD | | | times per | | | | | | | | day | | | | | | + + + + + + + + | DRAMAMINE | take 1-2 | | | DIMENHYDRI | [id number] | Laurance W | | 50 MG TABS | tabs 4 | | | MARCELA | 2 | Illa MD | | | times per | | | | | | | | day as | | | | | | | | needed | | | | | | + + + + + + + + | BD INSULIN | Use 5 | | | INSULIN | [id number] | Bailey W | | SYRINGE | [...] tab by | | | CLOPIDOGRE | [phone] | Bailey W | | MG TABS | mouth one | | | L | 1 | Lila MD | | | time per | | | BISULFATE | | | | | day | | | | | | + + + + + + + + | LANTUS 100 | 25 units | | | INSULIN | [id number] | Laurance W | | UNIT/ML | two times | | | GLARGINE | 3 | Lila MD | | SOLN | per day | | | | | | + + + + + + + + | LASIX 80 | 1 tab by | | | FUROSEMIDE | 8649763902 | Laurance W | | MG TABS | mouth one | | | | 5 | Lila MD | | | time per | | | | | | | | day | | | | | | + + + + + + + + | FUROSEMIDE | 1 tab one | | | FUROSEMIDE | 7204650272 | Laurance W | | 40 MG | time per | | | | 5 | Lila MD | | TABS | day | | | | | | + + + + + + + + | BUSPIRONE | 1 TAB | | | BUSPIRONE | 4597789240 | Laurance W | | HCL 7.5 MG | three | | | HCL | 1 | Lila MD | | TABS | times per | | | | | | | | day | | | | | | + + + + + + + + | COLACE 100 | 1 tab by | | | DOCUSATE | [id number] | Laurance W | | MG CAPS | mouth | | | SODIUM | 0 | Lila MD | | | daily at | | | | | | | | bedtime | | | | | | + + + + + + + + | BACTRIM DS | 1 by mouth | | | TRIMETHOPR | [id number] | Laurance W | | 800-160 | twice a | | | IM-SULFAME | 1 | Lila MD | | MG TABS | day for 3 | | | THOXAZOLE | | | | | days | | | | | | + + + + + + + + | LYRICA 50 | Take 1 tab | | | PREGABALIN | [id number] | Laurance W | | MG CAPS [...] tab one | | | METFORMIN | [phone] | Laurance W | | XR 500 MG | time per | | | HCL | 3 | Lila MD | | [id number] | day | | | | | | + + + + + + + + | CILOSTAZOL | 1 tab two | | | CILOSTAZOL | [id number] | Laurance W | | 100 MG | times per | | | | 1 | Lila MD | | TABS | day | | | | | | + + + + + + + + | OMEPRAZOLE | Take one | | | OMEPRAZOLE | [phone] | Laurance W | | 40 MG [...] take 1 | | | ATORVASTAT | [id number] | Laurance W | | MG TABS | tablet by | | | IN CALCIUM | 3 | Lila MD | | | mouth | | | | | | | | daily | | | | | | + + + + + + + + | MECLIZINE | 1 tab | | | MECLIZINE | [id number] | Laurance W | | HCL 25 MG | three | | | HCL | 0 | Lila MD | | TABS | times per | | | | | | | | day | | | | | | + + + + + + + + | LANTUS 100 | 56 units | | | INSULIN | [id number] | Laurance W | | UNIT/ML | in the | | | GLARGINE | 3 | Lila MD | | SOLN | morning | | | | | | + + + + + + + + | ONDANSETRO | 1 tab | | | ONDANSETRO | [id number] | Laurance W | | N HCL 4 MG | every 4 | | | N HCL | 3 | Lila MD | | TABS | hours | | | | | | + + + + + + + + | PIOGLITAZO | Take 1 tab | | | PIOGLITAZO | [id number] | Franciscoance W | | NE HCL 15 | by mouth | | | NE HCL | 6 | Lila MD | | MG TABS | one time | | | | | | | | per day | | | | | | + + + + + + + + | RELION | Use to | | | GLUCOSE | [id number] | Bailey W | | BLOOD | test BG | | | BLOOD | 4 | Lila MD | | GLUCOSE | one time | | | | | | | TEST STRP | per day | | | | | | + + + + + + + + | GABAPENTIN | Take 2 | | | GABAPENTIN | [id number] | Laurance W | | 300 MG [...] TAB one | | | VALSARTAN | [id number] | Bailey W | | 160 MG | time per | | | | 8 | Lila MD | | TABS | day | | | | | | + + + + + + + + | LYRICA 50 | TAKE ONE | | | PREGABALIN | [id number] | Laurance W | | MG CAPS [...] 0.2 ml | | | EXENATIDE | [id number] | Laurance W | | MCG PEN 5 | injection | | | | 1 | Lila MD | | MCG/0.02ML | two times | | | | | | | SOPN | per day | | | | | | + + + + + + + + | VICTOZA 18 | 1.2 mg | | | LIRAGLUTID | [id number] | Laurance W | | MG/3ML | injected | | | E | 2 | Lila MD | | SOPN | martin | | | | | | + + + + + + + + | KEFLEX 500 | one po TID | | | CEPHALEXIN | [id number] | Susanna | | MG CAPS | | | | | 1 | Gianfranco MD | + + + + + + + + | FLUCONAZOL | take one | | | FLUCONAZOL | [id number] | Susanna | | E 150 MG | tablet PO | | | E | 1 | Gianfranco MD | | TABS | x 1 repeat | | | | | | | | in 3 days | | | | | | + + + + + + + + | LYRICA 50 | 1 tab | | | PREGABALIN | [id number] | Bailey W | | MG CAPS | three | | | | 8 | Lila MD | | | times per | | | | | | | | day | | | | | | + + + + + + + + | GABAPENTIN | Take 2 | | | GABAPENTIN | 4489585375 | Bailey W | | 300 MG [...] tab one | | | DULOXETINE | [id number] | Laurance W | | HCL 30 MG | time per | | | HCL | 6 | Lila MD | | CPEP | day | | | | | | + + + + + + + + | RIOMET 500 | 10ml's two | | | METFORMIN | [id number] | Laurance W | | MG/5ML | [...] TAB one | | | VALSARTAN | [id number] | Laurance W | | MG TABS | time per | | | | 4 | Lila MD | | | day | | | | | | + + + + + + + + | MECLIZINE | One tab by | | | MECLIZINE | [id number] | Laurance W | | HCL 25 [...] take 2 | | | GABAPENTIN | 9827909333 | Laurance W | | 300 MG [...] tab one | | | VALSARTAN | [id number] | Laurance W | | MG TABS | time per | | | | 4 | Lila MD | | | day | | | | | | + + + + + + + + | VICTOZA 18 | 0.6 mg | | | LIRAGLUTID | 5952483939 | Laurance W | | MG/3ML | [...] tab one | | | SITAGLIPTI | [id number] | Laurance W | | 100 MG | time per | | | N | 2 | Lila MD | | TABS | day | | | PHOSPHATE | | | + + + + + + + + | GABAPENTIN | 2 tabs two | | | GABAPENTIN | 1666159158 | Laurance W | | 300 MG | times per | | | | 5 | Lila MD | | CAPS | day | | | | | | + + + + + + + + | DIOVAN 160 | 1 by mouth | | | VALSARTAN | 4475495273 | Laurance W | | MG TABS | every day | | | | 4 | Lila MD | + + + + + + + + | GABAPENTIN | 1 tab at | | | GABAPENTIN | 5747842296 | Laurance W | | 100 MG [...] 28 units | | | INSULIN | 6193506430 | Laurance W | | UNIT/ML | two times | | | GLARGINE | 3 | Lila MD | | SOLN | per day | | | | | | + + + + + + + + | LISINOPRIL | take 1 | | | LISINOPRIL | 3137434182 | Rogers | | 20 MG | tablet by | | | | 1 | Laith LUIS | | TABS | mouth | | | | | | | | daily | | | | | | + + + + + + + + | LANTUS 100 | 56 units | | | INSULIN | 1128052938 | Bailey W | | UNIT/ML | daily | | | GLARGINE | 3 | Lila MD | | SOLN | | | | | | | + + + + + + + + | GABAPENTIN | 1 by mouth | | | GABAPENTIN | 3912371347 | Bailey W | | 100 MG [...] | One | | | ERGOCALCIF | 6177522033 | Laurance W | | QUANG 58533 | capsule by | | | QUANG [...] by mouth | | | LISINOPRIL | 7410421167 | Laurance W | | 5 MG TABS | one time | | | | 1 | Lila MD | | | per day | | | | | | + + + + + + + + | RIOMET 500 | 10ml QAM | | | METFORMIN | 9946316060 | Laurance W | | MG/5ML | Liquid due | | | HCL | 1 | Lila MD | | SOLN | to | | | | | | | | Dysphagia | | | | | | + + + + + + + + | COLACE 100 | one tablet | | | DOCUSATE | [id number] | Laurance W | | MG CAPS | by mouth | | | SODIUM | 0 | Lila MD | | | at bedtime | | | | | | + + + + + + + + | MECLIZINE | 1 by mouth | | | MECLIZINE | 8948051054 | Laurance W | | HCL 25 [...] one tablet | | | METFORMIN | 5128832136 | Laurance W | | HCL 1000 | by mouth | | | HCL | 5 | Lila MD | | MG TABS | twice a | | | | | | | | day | | | | | | + + + + + + + + | ASPIRIN 81 | 1 by mouth | | | ASPIRIN | 0363629301 | Laurance W | | MG ORAL | every day | | | | 5 | Lila MD | | TABLET | | | | | | | + + + + + + + + | GABAPENTIN | one tablet | | | GABAPENTIN | 9230792151 | Laurance W | | 100 MG [...] had | | | Active | Clemente MD | | | redness [...] | | | | | | | 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 | + + + + + + [...] | CPHS | + + +--------+---+---+---+ + + + | Rx Refill: eRx Request for INSULIN [id number]/29G MIS | + + + +--------+ +---+---+---+ + | | ESM_RR | [id number] | | | B | e-scripts | | | | 82`INSULIN | | | | messenger | | | | | | | | refill | | | | [id number]/29 | | | | request | | | | G | | | | | | | | MIS`1ML/29 | | | | | | | | G``100 | | | | | | | | Unspecifie | | | | | | | | d``USE | | | | | | | | SYRINGE 5 | | | | | | | | TIMES | | | | | | | | DAILY TO | | | | | | | | INJECT | | | | | | | | INSULIN``1 | | | | | | | | `0`08/27/2 | | | | | | | | 018`08/27/ | | | | | | | | 2017`Walma | | | | | | | | rt - | | | | | | | | [place]*` | | | | | | | | [id number] | | | | | | | | `[id number] | | | | | | | | 01``INSULI | | | | | | | | N | | | | | | | | MPCX9GA/29 | | | | | | | [...] | | | | | | | SYRINGE 5 | | | | | | | | TIMES | | | | | | | | DAILY TO | | | | | | | | INJECT | | | | | | | | INSULIN | | | | | + +--------+ +---+---+---+ + Plan of Care + + + + | Type | Date | Detail | + + + + | Appointment | 01:00 PM | Hector Armendariz DPM, [address] | | | [address], | | | | [place], [address], | | | | | + + + + | Appointment | 02:15 PM | Ambrose Pascual [facility], [address] | | | | [facility] [address], | | | | [place], [address], | | | | | + + + + | Referral | | Ophthalmology Consult | + + + + | Referral | | Orthopedic Consult | + + + + | Referral | | Physical Therapy Evaluation | | | | [facility], [address] | | | [address] | | | | [address], [place], [address] | | | | | | | | | + + + + | Referral | | Physical Therapy Evaluation | | | | [facility], [address] | | | | [address] | | | | [address], [place], [address] | | | | | | | | | + + + + | Referral | | Podiatry Consult | | | | Hector Armendariz, | | | | [address] [facility] | | | | [address], [place], [place], | | | | [address] | | | | | + + + + | Referral | | Podiatry Consult | | | | Hector Armendariz, | | | | [address] [facility] | | | | [address], [place], [place], | | | | [address] | | | | | + + + + | Referral | | Ophthalmology Consult | | | | Huong Rose, | | | | [address] [facility] | | | | [place], [address] | | | | | + + + + | Referral | | Nephrology Evaluation | | | | Larry Galo, | | | | [address], | | | | [address], [place], [address] | | | | | | | | | + + + + | Referral | | Nephrology Evaluation | | | | Larry Galo, | | | | [address], | | | | [address], [place], [address] | | | | | | | | | + + + + | Referral | | Ophthalmology Consult | | | | Huong Rose, | | | | [address], [place], | | | | [place], [address] | | | | | + + + + | Referral | | [facility] Head-[facility] Con | | | | Dian Atkins, [address] | | | | [address], | | | | [place], [address] | | | | | + + + + | Referral | | JUAN FRANCISCO Griffiths-PAL[facility] Leigh | | | | Dian Milly, [address] | | | | [address] [place], | | | | [place], [address] | | | | | + + [...] | + + + + + | [id number] | Overweight | | | + + + + + | CPT-22676 | Adm 1st Inj No | | | | | counseling or >18 | | | + + + + + | CPT-14016 | Prevnar 13 | | | | | (Pneumococcal >7 | | | + + + + + | [id number] | Overweight | | | + + + + + | CPT-80111 | Glucose by monitor | | | + + + + + | [id number] | Overweight | | | + + + + + | [id number] | Overweight | | | + + + + + | [id number] | Overweight | | | + + + + + | CPT-43550 | IV infusion -1st hr | | | | | (Rehydration) | | | + + + + + | CPT-75635 | Glucose by monitor | | | + + + + + | CPT-75199 | UA Dipstick | | | + + + + + | CPT-50288 | DAISY Linick | | | + + + + + | CPT-85749 | Initial Psych | | | | | Evaluation | | | + + + + + | CPT-33536 | [facility], [address] or | | | | | more [address] | | | + + + + [...] | + + + + + | CPT-35316 | Trim Skin Lesions | | | | | [address] | | | + + + + + | CPT-48237 | UA Dipstick | | | + + + + + +---+ + | | Order excluded from report: | +---+ + + + + + + | VIT D HYDR 31898 | Vit D, 25 hydroxy | | [...]
--- OUTSIDE RECORDS SUMMARY | ~2019-03-25 | XMS | Continuity of Care Document ---
Demographics + + + | Address | [address] | | | [place] [address] | + + + | Home Phone | | + + + | Preferred Language | Unknown | + + + | Marital Status | Unknown | + + + | Catholic Affiliation | Unknown | + + + | Race | Unknown | + + + | Ethnic Group | Unknown | + + + Author + + + | Author | [facility] | + + + | Organization | [facility] | + + + | Address | [address] | | | [place] [address] | + + + | Phone | | + + + Support + + + + + | Name | Relationship | Address | Phone | + + + + + | EVAN Pascual | Caregiver | [address] | | | | | [place] [address] | | + + + + + | EVAN Pascual | Caregiver | [address] | | | | | [place] [address] | | + + + + + | DOLORES DIANA | [facility] | [address] | | | | | [place] [address] | | + + + + + Care Team Providers + + + + | Care Mycology Teacher Name | Role | Phone | + + + + | EVAN Pascual | Talita | | + + + + Insurance Providers + + + + + | Payer Name | Policy Number | Subscriber Name | Relationship | + + + + + | [employer] | [id number] | JULI DIANA | SELF | | CLAIMS | | | | + + + + + | [employer] | [id number] | JULI DIANA | SELF | | PPO | | | | + + + + + Problems Active Medical Problems [...] + + + +--------+ | Atorvast | Unknown | | ORAL | Daily | | | | | atin | Dose | | | | | | | | (Lipitor | | | | | | | | | ) | | | | | | | | | (Unknown | | | | | | | | | | | | | | | | | | Strength | | | | | | | | | ) TAB | | | | | | | | + + +-------+ + + + +--------+ | Clonazep | Unknown | | ORAL | | | | | | am | Dose | | | | | | | | (Klonopi | | | | | | | | | n) | | | | | | | | | (Unknown | | | | | | | | | | | | | | | | | | Strength | | | | | | | | | ) TAB | | | | | | [...] | + + + + + | Atorvastatin | Daily | Unknown | Discontinued | | (Lipitor) 20 Mg Tab | | | | | [...] | + + + + + | [place], Disposable | | Unknown | Discontinued | [...] 40 Mg | | | | | Capsule. | | | | | Capsule., 40 Mg | | | | | [...] No hospital discharge instructions. Plan of Care No plan of care. Functional Status No functional status results. Allergies, Adverse Reactions, Alerts + +---------+ + +--------+ + | Allergen | Type | Severity | Reaction | Status | Last Updated | + +---------+ + +--------+ + | hydrocodone | Allergy | Mild | HALLUCINATIO | Active | 08/25/17 | | bit | | | NS | | | + +---------+ + +--------+ + | lisinopril | Allergy | Unknown | | Active | 08/25/17 | + +---------+ + +--------+ + | morphine | Allergy | Mild | HALLUCINATIO | Active | 08/25/17 | | | | | N | | | + +---------+ + +--------+ + | ciprofloxaci | Allergy | Unknown | | Active | 08/25/17 | | n | | | | | | + +---------+ + +--------+ + Immunizations No Known History of Immunizations. Vital Signs No Known Vital Signs Results. Results No known relevant diagnostic tests, laboratory data and/or discharge summary. Procedures No Known History of Procedures. Encounters + + + + + + | Encounter | Location | Arrival/Admit | Discharge/Depar | Attending | | | | Date | t Date | Provider | + + + + + + | Discharged | [facility] | 10/15/17 | 10/24/17 | EVAN Pascual | | Recurring | [facility] [place] | 12:16pm | | Ambrose | + + + + + +"
--- OUTSIDE RECORDS SUMMARY | ~2019-03-25 | XMS ---
Demographics + + + | Address | [address] [place] [address] | | | [place] [address] | + + + | Home Phone | | + + + | Preferred Language | Unknown | + + + | Marital Status | D | + + + | Gnosticism Affiliation | Unknown | + + + | Race | White | + + + | Ethnic Group | or | + + + Author + + + | Author | [facility] | + + + | Organization | [facility] | + + + | Address | [address] | | | [place] [address] | + + + | Phone | Unavailable | + + + Care Team Providers + + + + | Care Parent Coach Name | Role | Phone | + + + + Unavailable | Unavailable | + + + + Reason for Visit + + + | Reason For Visit Description | Start Date | + + + | General Notes | | + + + | | Impression & Plan Problem 1: | | | DIABETES MELLITUS- TYPE II WITH PERIPHERAL | | | ANGIOPATHY- WITHOUT GANGRENE (ICD-250.70) | | | (LUV58-B74.51) Status: Unchanged Pt | | | checks her glucoses regularly and follows | | | the recommended scale for correction | | | insulin. She is not a reliable historian | | | but her children monitor her closely. Will | | | check an A1C to see where her glucose | | | control has been over the last 3 months | | | and let her know the results when they | | | become available. I have re-ordered all | | | her medications to [facility] as her family | | | has been unhappy with the service at | | | [facility] and they will be moving soon. | | | [facility] has a location in the [facility] town they | | | will be living in . Basaglar 100unit | | | inj INJECT 68 UNITS SUBCUTANEOUSLY IN | | | THE MORNING(34 UNITS ON EACH SIDE), | | | Humalog kwikpen 100 unit/ml subcutaneous | | | solution pen-injector 12 Units before | | | meals SS:150-175:2U;176-200:4U; 201-250: | | | 6U; 251-300: 8U; If greater than 300 | | | please call. Max daily 70 units, Glipizide | | | xl 2.5 mg oral tablet extended release 24 | | | hour Take 1 tablet p.o. q.a.m., Lyrica | | | 100 mg caps TAKE 1 CAPSULE BY MOUTH THREE | | | TIMES DAILY FOR NEUROPATHY, Bd insulin | | | syringe ultrafine 29g x 1/2" 0.5 ml Use to | | | inject insulin 5 times per day, Onetouch | | | ultra blue in vitro strip Use strip to | | | checl glucose four times daily. Dx: 11.65 | | | SMITH: 89 years, Bd pen needle short u/f 31g | | | x 8 mm USE PEN NEEDLE(S) 4 TIMES DAILY | | | Dx Code E11.40, Relion insulin syringe 31g | | | x 5/16" 0.5 ml Use to inject insulin 5 | | | times daily Dx Code E11.40, Onetouch | | | verio w/device kit Use to test glucose | | | four times daily Dx 11.65; SMITH: 89 years | | | Glyco Hemoglobin; A1C, Ofc Vst - | | | Est Level III (24934) | | | ........................ Problem 2: | | | CONSTIPATION (ICD-564.00) (SCG31-O22.00) | | | Recommended that pt only use the stool | | | softners as needed but especially she | | | should only use the Linzess if she has not | | | had a BM in a couple days. She is | | | over-correcting her tendency to | | | constipation by using these medications | | | daily Miralax oral powder 17 gm daily | | | stirred into 4-8 ounces of water; juice or | | | other liquid, Linzess 145 mcg oral | | | capsule Take one tablet daily as needed | | | for constipation., Eq stool softener 100 | | | mg caps TAKE 1 CAPSULE BY MOUTH TWICE | | | DAILY FOR SOFT STOOLS Ofc Vst - | | | Est Level III (30493) | | | ........................ Pt's has been | | | seeing Dr. Galo and has begun discussing | | | what may happen if her kidney function | | | continues to decline. She is thinking | | | that she will go on hemodialysis, though | | | her son is encouraging her to consider | | | peritoneal dialysis but this would require | | | her to move in with him and his and | | | she is not willing to do this. I also | | | offered up another alternative which would | | | be hospice if she chose to do neither. | | | She and her son are not at the point of | | | making this decision yet but she will be | | | needing to make some difficulty decision | | | in the near future regarding her kidney | | | function. Cutting salt out of her diet | | | will help preserve her kidney function for | | | a time and she should focus on this as | | | her immediate goal but then discuss with | | | her family and clergy and other health | | | care providers what her goals of care are | | | and will be in the future. - Labs | | | Reviewed Problem List: (Reviewed) | | | Med List: (Reconciled) BASAGLAR 100UNIT | | | INJ (INSULIN GLARGINE) INJECT 68 UNITS | | | SUBCUTANEOUSLY IN THE MORNING(34 UNITS ON | | | EACH SIDE) IRBESARTAN 300MG TAB | | | (IRBESARTAN) TAKE 1 TABLET BY MOUTH ONCE | | | DAILY LIPITOR 20 MG ORAL TABLET | | [...] before | | | breakfast as needed POTASSIUM CHLORIDE ER | | | 10 MEQ ORAL CAPSULE EXTENDED RELEASE | | | (POTASSIUM CHLORIDE) Take one cap daily in | | | the AM; Route: ORAL MECLIZINE HCL 25 MG | | | ORAL TABLET (MECLIZINE HCL) One tab by | | | mouth three times per day; Route: ORAL | | | HUMALOG KWIKPEN 100 UNIT/ML SUBCUTANEOUS | | | SOLUTION PEN-INJECTOR (INSULIN LISPRO) 12 | | | Units before meals [...] DAILY FOR | | | SOFT STOOLS Allergy List: (Reviewed) | | | VICODIN (Critical) MORPHINE (Critical) * | | | CIPRO IV (Critical) * MECLIZINE | | | (Moderate) LISINOPRIL (Moderate) | | | Meaningful Use Med List: (Reconciled) | | | HPI Chronic 72 y/o female | | | non-smoker is here tody for 3 mo DM f/u. | | | Pt reports her b/s this morning was 139. | | | but she forgot to bring b/s log with her | | | today. Pt wants to know if she needs to | | | contimue taking stool softerner. She | | | requests if there is small pill for | | | Potassiu becuase it it difficult for her | | | to | | | swollen................................... | | | .................................Aree | | | Isaac LUNA August 26, 2018 3:33 PM 72 | | | year old female non-smoker here to follow | | | up diabetes. Her glucose this morning | | | was 139 but she did not bring in her log | | | of glucoses and she has early dementia. | | | Her family monitors her medications quite | | | closely. She has been having some | | | difficulty with diarrhea at times lately | | | and wonders which medications she should | | | take every day and which she should only | | | take as needed for constipation. She | | | generally has constipation. She also | | | requests a smaller pill of potassium as | | | the one she has is difficult to swallow. | | | .......................................... | | | .........................Ambrose Pascual DNP | | | NURSERYMAN ASSISTANT August 26, 2018 4:43 PM Diabetes: | | | Trying to get in with another dentist as | | | she has missed too many appointments. | | | Saw Dr. Washington last month. The diabetes | | | type is Type II: Insulin dependent. The | | | patient's compliance with the treatment | | | plan is good. The patient's compliance | | | with the diet management plan is good. | | | The patient does a blood sugar check 4 | | | times per day. The patient denies all | | | symptoms of hypoglycemia. Symptoms of | | | hyperglycemia include polyuria, blurred | | | vision and occur fairly frequently. | | | Previous HgbA1c: 8.8 % 05/28/2018 High | | | Previous Microalb Urn: [...] | | | Number of Children: 7 Baptism/Bahai: | | | Jewish Primary Language: Icelandic Use | | | of Icelandic Language: Fluent Review of | | | Systems General: History reveals | | | negative for fevers, chills, sweats, | | | anorexia, fatigue, malaise. | | | Ears/Nose/Throat: Got hearing aids | | | recently. History reveals negative for | | | earache, nasal congestion, sore throat, | | | hoarseness. Cardiovascular: History | | | reveals negative for chest pain, | | | palpitations, peripheral edema. | | | Respiratory: History reveals negative for | | | cough, dyspnea, wheezing. | | | Gastrointestinal: History reveals negative | | | for nausea, vomiting, diarrhea, | | | constipation. Genitourinary: History | | | reveals negative for dysuria, hematuria, | | | vaginal discharge, vaginal puritis, | | | vaginal odor. Musculoskeletal: History | | | reveals negative for back pain, joint | | | pain, joint swelling. Skin: History | | | reveals negative for rash, itching, | | | dryness. Risk Factors Tobacco Use: | | | never smoker Alcohol Use:never Drug | | | Use: none Comments: Pt denies all drug | | | use. | | | .......................................... | | [...] high | | | risk behavior: No Nurse Intake | | | Height: 60in. Weight: 187 lbs. Temp: | | | 98.7deg.(tympanic) Pulse: 83(regular) | | | BMI: 36.65 Wt ch.80 Pulse | | | Oximetry: O2 sat. at rest is 95% on RA | | | BP #1: 128/64 Position:sitting Site:left | | | arm Physical Exam General: Well | | | developed, well nourished, in no apparent | | | distress Head: Normocephalic, atraumatic | | | Eyes: conjunctiva and sclera clear, lids | | | normal Ears: Grossly normal hearing | | | Mouth: Oropharynx without deformities or | | | lesions, normal mucosa. Neck: No masses, | | | no thyromegaly, no abnormal cervical | | | nodes, trachea midline. Lungs: Clear | | | bilaterally with normal respiratory | | | effort. Heart: Regular rate and rhythm, | | | normal S1, S2, no obvious murmur Abdomen: | | | Soft, non-tender, bowel sounds present | | | MSK: grossly normal gait and station. | | | Pulses: Pulses normal in all extremities | | | Neurologic: Pt is forgetful Skin: Visible | | | skin is intact without significant | | | lesions, or rashes. Psych: Alert and | | | oriented to person, place. Normal mood and | | | affect. Mini Mental State | | | Examination Total Score 0 | | | Diabetic Support Tools *EXAMS* DM Foot | | | Exam: Abnormal (02/25/2018) *BLOOD | | | PRESSURE* BP Systolic: 128 (08/26/2018) | | | BP Diastolic: 64 (08/26/2018) *LABS* | | | Cholesterol: 144 (04/12/2017) LDL: 55 | | | (04/12/2017) HDL: 49 (04/12/2017) | | | Triglycerides: 202 (04/12/2017) | | | Creatinine: 2.37 (06/13/2018) HgbA1c: | | | 8.8 (05/28/2018) Urine Micro Alb: | | | 168.000 (04/12/2017) *RENAL* On | | | CRISTINO/ARB? Yes VALSARTAN 160 MG TABS 1 TAB | | | one time per day Was a Trauma Coordinator | | | Consulted? Yes Medications: EQ | | | STOOL SOFTENER 100 MG CAPS (DOCUSATE | | | SODIUM) TAKE 1 CAPSULE BY MOUTH TWICE | | | DAILY FOR SOFT STOOLS #180[Capsule] x 3 | | | Entered and Authorized by: Ambrose Pascual | | | DNP NURSERYMAN ASSISTANT Signed by: Ambrose Pascual DNP NURSERYMAN ASSISTANT | | | on 08/26/2018 Method used: | | | Electronically to [facility] [place]* | | | (retail) [address] [place] [address] BLVD | | | [place], [place] [facility] Ph: [phone] | | | Fax: [phone] RxID: [id number] | | | LINZESS 145 MCG ORAL CAPSULE (LINACLOTIDE) | | | Take one tablet daily as needed for | | | constipation. #45[Capsule] x 0 | | | Route:ORAL Entered and Authorized by: | | | Ambrose Pascual DNP NURSERYMAN ASSISTANT Signed by: Ambrose | | | Ankur DNP NURSERYMAN ASSISTANT on 08/26/2018 Method used: | | | Electronically to [facility] [place]* | | | (retail) [address] [place] [address] BLVD | | | [place], [place] [facility] Ph: [phone] | | | Fax: [phone] Note to Pharmacy: Route: | | | ORAL; RxID: [id number] | | | FUROSEMIDE 80 MG TABS (FUROSEMIDE) TAKE 1 | | | TABLET BY MOUTH ONCE DAILY IN THE MORNING | | | #90[Tablet] x 3 Entered and Authorized | | | by: Ambrose Pascual DNP NURSERYMAN ASSISTANT Signed by: | | | Ambrose Pascual DNP NURSERYMAN ASSISTANT on 08/26/2018 Method | | | used: Electronically to [facility] | | | [place]* (retail) [address] [place] [address] | | | [place] [address] Ph: | | | [phone] Fax: [phone] RxID: | | | [id number] VITAMIN D3 1000 UNIT | | | TABS (CHOLECALCIFEROL) TAKE 1 TABLET BY | | | MOUTH ONCE DAILY IN THE MORNING | | | #90[Tablet] x 3 Entered and Authorized | | | by: Ambrose Pascual DNP NURSERYMAN ASSISTANT Signed by: | | | Ambrose Pascual DNP NURSERYMAN ASSISTANT on 08/26/2018 Method | | | used: Electronically to [facility] | | | [place]* (retail) [address] | | | [place] [address] Ph: | | | [phone] Fax: [phone] RxID: | | | [id number] ONETOUCH VERIO W/DEVICE | | | KIT (BLOOD GLUCOSE MONITORING SUPPL) Use | | | to test glucose four times daily Dx 11.65, | | | SMITH: 89 years #1[Kit] x 0 Entered and | | | Authorized by: Ambrose Pascual DNP NURSERYMAN ASSISTANT | | | Signed by: Ambrose Pascual DNP NURSERYMAN ASSISTANT on | | | 08/26/2018 Method used: Electronically | | | to [facility]* (retail) [address] | | | [place] [address] | | | Ph: [phone] Fax: [phone] RxID: | | | [id number] RELION INSULIN SYRINGE | | | 31G X 5/16" 0.5 ML (INSULIN SYRINGE-NEEDLE | | | U-100) Use to inject insulin 5 times | | | daily Dx Code E11.40 #360[Unspecified] | | | x 3 Entered and Authorized by: Ambrose | | | Ankur RAMIREZ NURSERYMAN ASSISTANT Signed by: Ambrose Pascual DNP | | | NURSERYMAN ASSISTANT on 08/26/2018 Method used: | | | [facility] | | | (retail) [address] [facility] | | | [place] [address] Ph: [phone] | | | Fax: [phone] RxID: [id number] | | | BD PEN NEEDLE SHORT U/F 31G X 8 MM | | | (INSULIN PEN NEEDLE) USE PEN NEEDLE(S) 4 | | | TIMES DAILY Dx Code E11.40 | | | #360[Unspecified] x 3 Entered and | | | Authorized by: Ambrose Pascual DNP NURSERYMAN ASSISTANT | | | Signed by: Ambrose Pascual DNP NURSERYMAN ASSISTANT on | | | 08/26/2018 Method used: Electronically | | | to [facility]* (retail) [address] | | | [place] [address] | | | Ph: [phone] Fax: [phone] RxID: | | | [id number] ONETOUCH ULTRA BLUE IN | | | VITRO STRIP (GLUCOSE BLOOD) Use strip to | | | checl glucose four times daily. Dx: 11.65 | | | SMITH: 89 years #200[Strip] x 4 Route:IN | | | VITRO Entered and Authorized by: Ambrose | | | Ankur DNP NURSERYMAN ASSISTANT Signed by: Ambrose Pascual DNP | | | NURSERYMAN ASSISTANT on 08/26/2018 Method used: | | | Electronically to [facility]* | | | (retail) [address] | | | [facility] [place] [address] Ph: [phone] | | | Fax: [phone] Note to Pharmacy: Route: | | | INVITR; RxID: [id number] BD | | | INSULIN SYRINGE ULTRAFINE 29G X 1/2" 0.5 | | | ML (INSULIN SYRINGE-NEEDLE U-100) Use to | | | inject insulin 5 times per day | | | #100[Unspecified] x 4 Route:IN VITRO | | | Entered and Authorized by: Ambrose Pascual DNP | | | NURSERYMAN ASSISTANT Signed by: Ambrose Pascual DNP NURSERYMAN ASSISTANT on | | | 08/26/2018 Method used: Electronically | | | to [facility]* (retail) [address] | | | [address] [facility] [place] [address] | | | Ph: [phone] Fax: [phone] Note | | | to Pharmacy: Route: INVITR; RxID: | | | [id number] MIRALAX ORAL POWDER | | | (POLYETHYLENE GLYCOL 3350) 17 gm daily | | | stirred into 4-8 ounces of water, juice or | | | other liquid #1[Container] x 3 | | | Route:ORAL Entered and Authorized by: | | | Ambrose Pascual DNP NURSERYMAN ASSISTANT Signed by: Ambrose | | | Ankur DNP NURSERYMAN ASSISTANT on 08/26/2018 Method used: | | | Electronically to [facility]* | | | (retail) [address] | | | [facility] [place] [address] Ph: [phone] | | | Fax: [phone] Note to Pharmacy: Route: | | | ORAL; RxID: [id number] LYRICA | | | 100 MG CAPS (PREGABALIN) TAKE 1 CAPSULE BY | | | MOUTH THREE TIMES DAILY FOR NEUROPATHY | | | #90 x 3 Entered and Authorized by: | | | Ambrose Pascual DNP NURSERYMAN ASSISTANT Signed by: Ambrose | | | Ankur RAMIREZ NURSERYMAN ASSISTANT on 08/26/2018 Method used: | | | Print then Give to Patient RxID: | | | [id number] GLIPIZIDE XL 2.5 MG ORAL | | | TABLET EXTENDED RELEASE 24 HOUR | | | (GLIPIZIDE) Take 1 tablet p.o. q.a.m. | | | #30[Tablet] x 6 Route:ORAL Entered and | | | Authorized by: Ambrose Pascual DNP NURSERYMAN ASSISTANT | | | Signed by: Ambrose aPscual DNP NURSERYMAN ASSISTANT on | | | 08/26/2018 Method used: [facility] | [facility] [address] | | | [place] [address] | | | Ph: [phone] Fax: [phone] Note | | | to Pharmacy: Route: ORAL; RxID: | | | [id number] HUMALOG KWIKPEN 100 | | | UNIT/ML SUBCUTANEOUS SOLUTION PEN-INJECTOR | | | (INSULIN LISPRO) 12 Units before meals | | | SS:150-175:2U,176-200:4U, 201-250: 6U, | | | 251-300: 8U, If greater than 300 please | | | call. Max daily 70 units #20[Prefilled | | | Pen Syrnge] x 3 Route:SUBCUTANEOUS | | | Entered and Authorized by: Ambrose Pascual DNP | | | NURSERYMAN ASSISTANT Signed by: Ambrose Pascual DNP NURSERYMAN ASSISTANT on | | | 08/26/2018 Method used: Electronically | | | to [facility]) [address] | | | [place] [address] | | | Ph: [phone] Fax: [phone] Note | | | to Pharmacy: Route: SC; RxID: | | | [id number] MECLIZINE HCL 25 MG ORAL | | | TABLET (MECLIZINE HCL) One tab by mouth | | | three times per day #90[Tablet] x 2 | | | Route:ORAL Entered and Authorized by: | | | Ambrose Pascual DNP NURSERYMAN ASSISTANT Signed by: Ambrose | | | Ankur RAMIREZ NURSERYMAN ASSISTANT on 08/26/2018 Method used: | | | Electronically to [facility]* | | | (retail) [address] | | | [place] [address] Ph: [phone] | | | Fax: [phone] Note to Pharmacy: Route: | | | ORAL; RxID: [id number] | | | POTASSIUM CHLORIDE ER 10 MEQ ORAL CAPSULE | | | EXTENDED RELEASE (POTASSIUM CHLORIDE) Take | | | one cap daily in the AM #30[Capsule] x 3 | | | Route:ORAL Entered and Authorized by: | | | Ambrose Pascual DNP NURSERYMAN ASSISTANT Signed by: Ambrose | | | Ankur RAMIREZ NURSERYMAN ASSISTANT on 08/26/2018 Method used: | | | Electronically to [facility]* | | | (retail) [address] [facility] | | | [place], [place] [facility] Ph: [phone] | | | Fax: [phone] Note to Pharmacy: Route: | | | ORAL; RxID: [id number] | | | OMEPRAZOLE 40 MG ORAL CAPSULE DELAYED | | | RELEASE (OMEPRAZOLE) Take one by mouth one | | | time per day 30-60 minutes before | | | breakfast as needed #30[Capsule] x 6 | | | Entered and Authorized by: Ambrose Pascual DNP | | | NURSERYMAN ASSISTANT Signed by: Ambrose Pascual DNP NURSERYMAN ASSISTANT on | | | 08/26/2018 Method used: Electronically | | | to [facility]* (retail) [address] | | | [place] [address] | | | Ph: [phone] Fax: [phone] RxID: | | | [id number] PLAVIX 75 MG ORAL TABLET | | | (CLOPIDOGREL BISULFATE) 1 tab by mouth | | | one time per day in the evening | | | #90[Tablet] x 3 Entered and Authorized | | | by: Ambrose Pascual DNP NURSERYMAN ASSISTANT Signed by: | | | Ambrose Pascual DNP NURSERYMAN ASSISTANT on 08/26/2018 Method | | | used: Electronically to [facility] | | | [place]* (retail) [address] | | | [place] [address] Ph: | | | [phone] Fax: [phone] RxID: | | | [id number] LIPITOR 20 MG ORAL | | | TABLET (ATORVASTATIN CALCIUM) take 1 | | | tablet by mouth daily in the evening | | | #90[Tablet] x 2 Entered and Authorized | | | by: Ambrose Pascual DNP NURSERYMAN ASSISTANT Signed by: | | | Ambrose Pascual DNP NURSERYMAN ASSISTANT on 08/26/2018 Method | | | used: Electronically to [facility] | | | [place]* (retail) [address] [place] [address] | | | [facility] [place] [address] Ph: | | | [phone] Fax: [phone] RxID: | | | [id number] IRBESARTAN 300MG TAB | | | (IRBESARTAN) TAKE 1 TABLET BY MOUTH ONCE | | | DAILY #90[Tablet] x 3 Entered and | | | Authorized by: Ambrose Pascual DNP NURSERYMAN ASSISTANT | | | Signed by: Ambrose Pascual DNP NURSERYMAN ASSISTANT on | | | 08/26/2018 Method used: Electronically | | | to [facility]* (retail) [address] | | | [facility] [place] [facility] | | | Ph: [phone] Fax: [phone] RxID: | | | [id number] BASAGLAR 100UNIT INJ | | | (INSULIN GLARGINE) INJECT 68 UNITS | | | SUBCUTANEOUSLY IN THE MORNING(34 UNITS ON | | | EACH SIDE) #21[Prefilled Pen Syrnge] x 3 | | | Entered and Authorized by: Ambrose Pascual | | | DNP NURSERYMAN ASSISTANT Signed by: Ambrose Pascual DNP NURSERYMAN ASSISTANT | | | on 08/26/2018 Method used: | | | Electronically to [facility]* | | | (retail) [address] [place] [address] | | | [place] [address] Ph: [phone] | | | Fax: [phone] RxID: [id number] | | | | + + + Assessments No information available. Chief Complaint No information available. History of Past Illness No information available.
--- OUTSIDE RECORDS SUMMARY | ~2019-03-25 | XMS ---
Demographics + + + | Address | [address] | | | [place] [address] | + + + | Home Phone | | + + + | Preferred Language | Unknown | + + + | Marital Status | D | + + + | Oriental Orthodox Affiliation | Unknown | + + + | Race | Unspecified | + + + | Ethnic Group | or | + + + Author + + + | Author | [facility] | + + + | Organization | [facility] | + + + | Address | [address] | | | [place] [address] | + + + | Phone | Unavailable | + + + Care Team Providers + + + + | Care Email Operations Manager Name | Role | Phone | [...] | NEUROPATHY- UNCONTROLLED (ICD-250.62) | | | (OWN61-Z25.40) Status: Unchanged | | | Encouraged pt to take the glipizide daily | | | as ordered instead of only if her glucoses | | | get above 400. Otherwise, she should | | | continue on as she has been doing. We | | | will check her A1C today and let her know | | | the results when they are available. would | | | like to get another pair of diabetic | | | shoes. She will have to make an | | | appointment with Dr. 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 Jean Marie | | | kwikpen 100 unit/ml subcutaneous solution | | | pen-injec 68 Units every morning (34 units | | | on each side), Novolog 100 unit/ml | | | subcutaneous solution 12 Units before | | | meals SS:150-175:2U;176-200:4U; 201-250: | | | 6U; 251-300: 8U; If greater than 300 | | | please call provider, Glipizide xl 2.5 mg | | | oral tablet extended release 24 hour Take | | | 1 tablet p.o. q.a.m., Lyrica 100 mg oral | | | capsule 1 capsule three times daily for | | | neuropathy, Bd insulin syringe ultrafine | | | 29g x 1/2" 0.5 ml Use to inject insulin 5 | | | times per day, Onetouch ultra blue in | | | vitro strip Use strip to checl glucose | | | four times daily. Dx: 11. SMITH: 89 years, | | | Bd pen needle short u/f 31g x 8 mm USE | | | PEN NEEDLE(S) 4 TIMES DAILY Dx Code | | | E11.40, Relion insulin syringe 31g x 5/16" | | | 0.5 ml USE SYRINGE 4 TIMES DAILY Dx Code | | | E11.40, Onetouch verio w/device kit Use | | | to test glucose four times daily Dx 11.65; | | | SMITH: 89 years Glyco Hemoglobin; | | | A1C ........................ Problem | | | 2: FLANK PAIN (ICD-789.09) (YAK65-W06.9) | | | Pt has been experiencing a bit of flank | | | pain and would like to rule out a UTI. | | | Will check and sent off for culture. When | | | the culture comes back, will order | | | antibiotics if needed. Otherwise, she is | | | encouraged to drink plenty of water and | | | may use over the counter AZO until the | | | antibiotics are available. UA | | | Dipstick, Urinalysis Culture If Indicat | | | ........................ Problem 3: | | | CONSTIPATION (ICD-564.00) (IQW25-W85.00) | | | Will add Linzess as she is doing all the | | | other options I would have suggested to | | | her. She really needs to make sure she is | | | getting enough fiber and fluid in her | | | system but the Linzess should help. | | | Colace 100 mg oral capsule 1 pill twice | | | daily for soft stools, Miralax oral powder | | | 17 gm daily stirred into 4-8 ounces of | | | water; juice or other liquid, Linzess 145 | | | mcg oral capsule Take one tablet daily for | | | constipation. | | | ........................ Med List: | [...] | | | four times daily. Dx: SMITH: 89 | | | years; Route: [...] | | | four times daily Dx , SMITH: 89 years | | | VITAMIN [...] Use Med List: | | | (Reconciled) HPI Chronic A | | | 72-year-old female, never smoker, here for | | | hospital f/u after being admitted for | | | encephalopathy and increased blood sugars. | | | Patient notes she is dizzy "all the | | | time", except while sitting. Notes she | | | has been severely constipated, even with | | | taking Miralax, Docusate, laxatives and | | | coffee "day and | | | night".................................... | | | ................................Edna | | | [facility] February 24, 2018 2:20 PM | | | 72-year-old female, never smoker, here for | | | hospital follow up after being admitted | | | for encephalopathy and increased blood | | | sugars. Patient notes she is dizzy | | | "all the time", except while sitting. She | | | uses a walker when she walks outside. | | | Pt's daughter is requesting a bath bench | | | to help with showering. 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 Previous HgbA1c: 7.1 % | | | 11/26/2017 High Previous Microalb Urn: | | | 168.000 mg/L 04/12/2017 High | | | Medical History Type 2 [...] | | | Number of Children: 7 Latter-Day/Sikhism: | | | Hinduism Primary Language: [place] Use | | | of [place] Language: Fluent Review of | | | Systems General: History reveals | | | positive for fatigue, malaise. History | | | reveals negative for fevers, chills, | | | sweats, anorexia. Ears/Nose/Throat: | | | History reveals positive for dysphagia. | | | Cardiovascular: History reveals positive | | | for chest pain. History reveals negative | | | for palpitations, peripheral edema. | | | Respiratory: History reveals positive for | | | dyspnea. History reveals negative for | | | cough, wheezing. Gastrointestinal: | | | History reveals positive for constipation. | | | History reveals negative for nausea, | | | vomiting, diarrhea. Risk Factors | | | Tobacco Use: never smoker Alcohol | | | Use:never Drug Use: none Comments: | | | Denies all drug | | | use....................................... | | | .............................Edna Nash | | | [facility] February 24, 2018 2:05 PM Other | | | Risk Factors Caffeine [...] Intake Height: | | | 60in. Weight: 186.4 lbs. Temp: | | | 97.5deg.(tympanic) Pulse: 88(regular) | | | Resp: 16 BMI: 36.54 Wt ch.60 | | | Pulse Oximetry: O2 sat. at rest is 98% on | | | RA BP #1: 118/59 Position:sitting | | | Site:left arm Time:2:18 PM Vitals entered | | | by: Edna Nash [facility] on February 24, 2018 | | | 2:18 PM Health Risk Screening 1. Do you | | | now or have you ever used tobacco? Never | | | 2. How many times in the past year have | | | you had 4 or more drinks in a day? | | | | | | None 3. Do you sometimes use drugs | | | recreationally, including marijuana | | | without a Medical Marijuana Card, or | | | prescription drugs more than they are | | | prescribed for or just for the way they | | | make you feel? None In the last two | | | weeks have you been bothered by: 4. A). | | | Little interest or pleasure in doing | | | things? No B). Feeling down, depressed | | | or hopeless? No Physical Exam | | | General: [...] murmur Abdomen: Soft, | | | non-tender, bowel sounds present MSK: | | | walks with assistance of her daughter | | | Neurologic: Pt is forgetful Skin: Intact | | | without significant lesions, or rashes. | | | Psych: Alert and oriented to time, person, | | | place. Normal mood and affect, intact | | | judgement and insight. Office Labs | | | Routine Urinalysis Date Collected: | | | 02/24/2018 Color: yellow Appearance: | | | clear Spec. [place]: 1.025 pH: 5.0 | | | Leukocytes: 1+ Nitrite: negative | | | Protein: 1+ Glucose: negative Ketone: | | | negative Urobilinogen: negative | | | Bilirubin: negative Blood: negative | | | Diabetic Support Tools *EXAMS* DM | | | Foot Exam: Abnormal (08/27/2017) | | | *BLOOD PRESSURE* BP Systolic: 118 | | | (02/24/2018) BP Diastolic: 59 | | | (02/24/2018) *LABS* Cholesterol: 144 | | | (04/12/2017) LDL: 55 (04/12/2017) HDL: | | | 49 (04/12/2017) Triglycerides: 202 | | | (04/12/2017) Creatinine: 2.21 | | | (02/21/2018) HgbA1c: 7.1 (11/26/2017) | | | Urine Micro Alb: 168.000 (04/12/2017) | | | *RENAL* On CRISTINO/ARB? Yes VALSARTAN 160 | | | MG TABS 1 TAB one time per day Was a | | | Perfect Binder Feeder Offbearer Consulted? Yes | | | Medications: LINZESS 145 MCG ORAL CAPSULE | | | (LINACLOTIDE) Take one tablet daily for | | | constipation. #30[Capsule] x 3 | | | Route:ORAL Entered and Authorized by: | | | Ambrose Pascual DNP FILM MASKER Signed by: Ambrose | | | nAkur RAMIREZ FILM MASKER on 02/24/2018 Method used: | | | Electronically to [facility]* | | | (retail) [address] [place] [address] [address] | | | [place] [address] Ph: [phone] | | | Fax: [phone] Note to Pharmacy: Route: | | | ORAL; RxID: [id number] | | | General Rx Order #1 Supplies: bath | | | bench Length of need: 89 yrs Diagnosis: | | | DEMENTIA WITHOUT BEHAVIORAL DISTURBANCE | | | (ICD-294.20) (JHF86-C69.90), FALL RISK | | | (ICD-V15.88) (UZR43-M73.81) | | | | + + + Assessments No information available. Chief Complaint No information available. History of Past Illness No information available.
--- OUTSIDE RECORDS SUMMARY | ~2019-03-25 | XMS | Clinical Summary ---
Demographics + + + | Address | [address] [place] [address] | | | [place] [address] | + + + | Home Phone | | + + + | Preferred Language | Unknown | + + + | Marital Status | D | + + + | Restorationist Affiliation | Unknown | + + + | Race | Unspecified | + + + | Ethnic Group | or | + + + Author + + + | Author | [facility] | + + + | Organization | [facility] | + + + | Address | [address] | | | [place] [address] | + + + | Phone | Unavailable | + + + Care Team Providers + + + + | Care Hadoop Infrastructure Architect Name | Role | Phone | + [...] | | tion | | +---------+---------+---------+---------+---------+---------+---------+---------+---------+ | XEROSIS | [id number] | | Active | | Hector | | Asteato | | | , SKIN | 0 | | | | Armendariz | | sis | | | OF FOOT | (SNOMED | | | | DPM | | cutis | | | | CT) | | | | | | | | +---------+---------+---------+---------+---------+---------+---------+---------+---------+ | VOLUME | E86.9 | | Inactiv | | Edward | | Volume | | | DEPLETI | (ICD-10 | | e | | Ottcandacee | | depleti | | | ON | -CM) | | | | sheila MD | | on, | | | UNSPECI | | | | | | | unspeci | | | FIED | | | | | | | fied | | +---------+---------+---------+---------+---------+---------+---------+---------+---------+ | DIABETE | [id number] | | Active | | David | [...] s | | +---------+---------+---------+---------+---------+---------+---------+---------+---------+ | NAUSEA | [id number] | | Resolve | | Geetha | | Nausea | | | ALONE | | | d | | Patrick | | | | | | (SNOMED | | | | CCMA | | | | | | CT) | | | | | | | | +---------+---------+---------+---------+---------+---------+---------+---------+---------+ | VACCINA | [id number] | | Resolve | | Geetha | | Medicat | | | TION | 02 | | d | | Superior | | ion | | | FOR [...] | | | +---------+---------+---------+---------+---------+---------+---------+---------+---------+ | FLANK | [id number] | | Active | | Geetha | | Flank | | | PAIN | 05 | /01 | | /01 | Patrick | | pain | | | | (SNOMED | | | | CCMA | | | | | | CT) | | | | | | | | +---------+---------+---------+---------+---------+---------+---------+---------+---------+ | VACCINA | [id number] | | Removed | | Ambrose | | Medicat | | | TION | 02 | /03 | | /03 | Ankur | | ion | | | FOR | (SNOMED | | | | DNP FUTURES TRADER | | given | | | STREP [...] | | | +---------+---------+---------+---------+---------+---------+---------+---------+---------+ | OSTEOAR | [id number] | | Active | | Edna | | Osteoar | | | THRITIS | 07 | /16 | | /18 | Hope | | thritis | | | , KNEE, | (SNOMED | | | | CCMA | | of | | | RIGHT | CT) | | | | | | knee | | +---------+---------+---------+---------+---------+---------+---------+---------+---------+ | CONSTIP | [id number] | | Active | | Ambrose | | Constip | | | ATION | 8 | /13 | | /13 | Ankur | | ation | | | | (SNOMED | | | | DNP FUTURES TRADER | | | | | | CT) | | | | | | | | +---------+---------+---------+---------+---------+---------+---------+---------+---------+ | TYPE 2 | E11.21 | | Active | | Ambrose | | Type 2 | | | DIABETE | (ICD-10 | / | | / | Ankur | | diabete | | | S | -CM) | | | | DNP FUTURES TRADER | | s | | | MELLITU [...] athy | | +---------+---------+---------+---------+---------+---------+---------+---------+---------+ | DIABETE | [id number] | | Inactiv | | Ambrose | | Type 2 | | | S | 6 | /08 | e | /08 | Ankur | | diabete | | | MELLITU | (SNOMED | | | | DNP FUTURES TRADER | | s | | | S, TYPE | CT) | | | | | | mellitu | | | II, ON | | | | | | | s | | | | | | | | | | | | | INSULIN | | | | | | | | | +---------+---------+---------+---------+---------+---------+---------+---------+---------+ | DEHYDRA | [id number] | | Resolve | | Ambrose | | Dehydra | | | TION | 6 | /08 | d | /08 | Ankur | | tion | | | | (SNOMED | | | | DNP FUTURES TRADER | | | | | | CT) | | | | | | | | +---------+---------+---------+---------+---------+---------+---------+---------+---------+ | DIZZINE | [id number] | | Inactiv | | Ambrose | | Dizzine | | | SS | 03 | /08 | e | /08 | Ankur | | ss | | | | (SNOMED | | | | DNP FUTURES TRADER | | | | | | CT) | | | | | | | | +---------+---------+---------+---------+---------+---------+---------+---------+---------+ | ANEMIA | [id number] | | Inactiv | | Ambrose | | Anemia | | | | 00 | /10 | e | /10 | Aknur | | | | | | (SNOMED | | | | DNP FUTURES TRADER | | | | | | CT) | | | | | | | | +---------+---------+---------+---------+---------+---------+---------+---------+---------+ | CONSTIP | [id number] | | Inactiv | | Ambrose | | Constip | | | ATION | 8 | /13 | e | /13 | Ankur | | ation | | | | (SNOMED | | | | DNP FUTURES TRADER | | | | | | CT) | | | | | | | | +---------+---------+---------+---------+---------+---------+---------+---------+---------+ | SYNCOPE | [id number] | | Resolve | | Ambrose | | Syncope | | | | 07 | | d | /10 | Ank[facility] | | | | | | (SNOMED | | | | DNP FUTURES TRADER | | | | | | CT) | | | | | | | | +---------+---------+---------+---------+---------+---------+---------+---------+---------+ | DYSPHAG | R13.10 | | Resolve | | Ambrose | | Dysphag | | | IA | (ICD-10 | | d | | Ankur | | ia, | | | UNSPECI | -CM) | | | | DNP FUTURES TRADER | | unspeci | | | FIED | | | | | | | fied | | +---------+---------+---------+---------+---------+---------+---------+---------+---------+ | PARESTH | [id number] | | Inactiv | | Ambrose | | Paresth | | | ESIA, | 04 | | e | | Ankur | | esia of | | | HANDS | (SNOMED | | | | DNP FUTURES TRADER | | hand | | | | CT) | | | | | | | | +---------+---------+---------+---------+---------+---------+---------+---------+---------+ | DIABETI | [id number] | | Inactiv | | Ambrose | | Diabeti | | | C | 06 | /25 | e | / | Ankur | | c | | | PERIPHE | (SNOMED | | | | DNP FUTURES TRADER | | periphe | | | RAL [...] | -CM) | | | | DNP FUTURES TRADER | | unspeci | | | FIED | | | | | | | fied | | +---------+---------+---------+---------+---------+---------+---------+---------+---------+ | VAGINIT | [id number] | | Resolve | | Ambrose | | Vaginit | | | IS | 1 | /31 | d | /31 | Ankur | | is | | | | (SNOMED | | | | DNP FUTURES TRADER | | | | | | CT) | | | | | | | | +---------+---------+---------+---------+---------+---------+---------+---------+---------+ | DYSURIA | [id number] | | Resolve | | Ambrose | | Dysuria | | | | 1 | /31 | d | / | Ankur | | | | | | (SNOMED | | | | DNP FUTURES TRADER | | | | | | CT) | | | | | | | | +---------+---------+---------+---------+---------+---------+---------+---------+---------+ | EDEMA | [id number] | | Inactiv | | Ambrose | | Edema | | | | 08 | | e | / | Ankur | | | | | | (SNOMED | | | | DNP FUTURES TRADER | | | | | | CT) | | | | | | | | +---------+---------+---------+---------+---------+---------+---------+---------+---------+ | RENAL | [id number] | | Inactiv | | Ambrose | | Acute | | | FAILURE | 1 | / | e | /02 | Ankur | | renal | | | , ACUTE | (SNOMED | | | | DNP FUTURES TRADER | | failure | | | | CT) | | | | | | | | | | | | | | | | syndrom | | | | | | | | | | e | | +---------+---------+---------+---------+---------+---------+---------+---------+---------+ | DIABETE | [id number] | | Inactiv | | Ambrose | | Periphe | | | S | 02 | / | e | /01 | Ankur | | ral | | | MELLITU | (SNOMED | | | | DNP FUTURES TRADER | | vascula | | | S, [...] | -CM) | | | | DNP FUTURES TRADER | | s | | | DIABETI [...] ropathy | | +---------+---------+---------+---------+---------+---------+---------+---------+---------+ | LOCALIZ | [id number] | | Resolve | | Ambrose | | Disorde | | | ED | 09 | /30 | d | /30 | Ank[facility] | | r of | | | SWELLIN | (SNOMED | | | | DNP FUTURES TRADER | | forearm | | | G [...] | | | +---------+---------+---------+---------+---------+---------+---------+---------+---------+ | UTI | [id number] | | Resolve | | Ambrose | | Urinary | | | | 5 | / | d | /13 | Ank[facility] | | tract | | | | (SNOMED | | | | DNP FUTURES TRADER | | infecti | | | | [...] | -CM) | | | | DNP FUTURES TRADER | | s | | | MELLITU [...] athy | | +---------+---------+---------+---------+---------+---------+---------+---------+---------+ | DEMENTI | [id number] | | Inactiv | | Ambrose | | Procedu | | | A | | / | e | | Ankur | | re | | | SCREENI | (SNOMED | | | | DNP FUTURES TRADER | | carried | | | NG | CT) | | | | | | out on | | | | | | | | | | | | | | | | | | | | subject | | +---------+---------+---------+---------+---------+---------+---------+---------+---------+ | CHANGE | 5094489 | | Inactiv | | Ambrose | | Altered | | | IN | 9 | / | e | / | Ankur | | bowel | | | BOWEL | (SNOMED | | | | DNP FUTURES TRADER | | functio | | | HABITS | CT) | | | | | | n | | +---------+---------+---------+---------+---------+---------+---------+---------+---------+ | MILD | [id number] | | Inactiv | | Amb[facility] | | Mild | | | COGNITI | 03 | /24 | e | /24 | Ankur | | cogniti | | | VE | (SNOMED | | | | DNP FUTURES TRADER | | ve | | | IMPAIRM | CT) | | | | | | disorde | | | ENT | | | | | | | r | | +---------+---------+---------+---------+---------+---------+---------+---------+---------+ | DIABETE | [id number] | | Inactiv | | Ambrose | | Periphe | | | S | 830308 | /11 | e | /12 | Ankur | | ral | | | MELLITU | (SNOMED | | | | DNP FUTURES TRADER | | neuropa | | | S, [...] fied | | +---------+---------+---------+---------+---------+---------+---------+---------+---------+ | DIABETE | [id number] | | Active | | David W | | Periphe | | | S | 385766 | /15 | | / | Theen | | ral | | [...] | | | +---------+---------+---------+---------+---------+---------+---------+---------+---------+ | MUSCLE | 9865800 | | Active | | Christen | | Muscle | | | PAIN | 1 | /07 | | /07 | J. | | pain | | | | (SNOMED | | | | [place] | | | | | | CT) | | | | ta FUTURES TRADER | | | | +---------+---------+---------+---------+---------+---------+---------+---------+---------+ | DIABETE | 7303374 | | Removed | | David W | | Periphe | | | S | 566687 | | | | Theen | | ral | | [...] | | | +---------+---------+---------+---------+---------+---------+---------+---------+---------+ | MILD | 2188076 | | Removed | | Maulik | [...] Acquire | | | CTOMY, | | / | | / | Mendels | | d | | [...] uterus | | +---------+---------+---------+---------+---------+---------+---------+---------+---------+ | COLONIC | 0234207 | | Active | | Emeka | | Adenoma | | | | 06 | / | | / | Petre | | tous | | | POLYPS, | (SNOMED | | | | MD | | polyp | | | | CT) | | | | | | of | | | ADENOMA | | | | | | | colon | | | TOUS | | | | | | | | | +---------+---------+---------+---------+---------+---------+---------+---------+---------+ | CONSTIP | 9125770 | | Removed | | Emeka | | Constip | | | ATION | 8 | /13 | | /13 | Petre | | ation | | | | (SNOMED | | | | MD | | | | | | CT) | | | | | | | | +---------+---------+---------+---------+---------+---------+---------+---------+---------+ | CHANGE | [id number] | | Removed | | Emeka | | Altered | | | IN | 9 | /13 | | /13 | Petre | | bowel | | | BOWEL | (SNOMED | | | | MD | | functio | | | HABITS | CT) | | | | | | n | | +---------+---------+---------+---------+---------+---------+---------+---------+---------+ | DECREAS | 3882075 | | Active | | Emeka | | Decreas | | | ED | 6 | /13 | | /13 | Petre | | e in | | | APPETIT | (SNOMED | | | | MD | | appetit | | | E | CT) | | | | | | e | | +---------+---------+---------+---------+---------+---------+---------+---------+---------+ | WEIGHT | 5470845 | | Active | | Emeka | | Abnorma | | | LOSS | 01 | / | | /13 | Petre | | l | | | ABNORMA | (SNOMED | | | | MD | | weight | | | L | CT) | | | | | | loss | | +---------+---------+---------+---------+---------+---------+---------+---------+---------+ | NAUSEA | 8128851 | | Removed | | Emeka | | Nausea | | | ALONE | 07 | | | 13 | Petre | | | | | | (SNOMED | | | | MD | | | | | | CT) | | | | | | | | +---------+---------+---------+---------+---------+---------+---------+---------+---------+ | RECTAL | 6243628 | | Active | | Emeka | | Rectal | | | BLEEDIN | 2 | | | | Petre | | hemorrh | | | G | (SNOMED | | | | MD | | age | | | | CT) | | | | | | | | +---------+---------+---------+---------+---------+---------+---------+---------+---------+ | DEMENTI | 8874681 | | Active | | Christen | | Dementi | | | A | 6 | / | | /10 | J. | | a | | | WITHOUT | (SNOMED | | | | [place] | | | | | | CT) | | | | ta FUTURES TRADER | | | | | BEHAVIO | | | | | | | | | | RAL | | | | | | | | | | DISTURB | | | | | | | | | | ANCE | | | | | | | | | +---------+---------+---------+---------+---------+---------+---------+---------+---------+ | CHRONIC | 0587630 | | Active | | Christen | | Chronic | | | | 03 | | | / | J. | | | | | PROGRES | (SNOMED | | | | [place] | | progres | | | SIVE | CT) | | | | ta FUTURES TRADER | | sive | | | RENAL | | | | | | | renal | | | FAILURE | | | | | | | failure | | +---------+---------+---------+---------+---------+---------+---------+---------+---------+ | ANEMIA | 0865315 | | Removed | | Christen | | Anemia | | | | 00 | / | | / | J. | | | | | | (SNOMED | | | | [place] | | | | | | CT) | | | | ta FUTURES TRADER | | | | +---------+---------+---------+---------+---------+---------+---------+---------+---------+ | DEMENTI | 2176336 | | Removed | | Christen | | Procedu | | | A | 03 | / | | / | J. | | re | | | SCREENI | (SNOMED | | | | [place] | | carried | | | NG | CT) | | | | ta FUTURES TRADER | | out on | | | | | | | | | | | | | | | | | | | | subject | | +---------+---------+---------+---------+---------+---------+---------+---------+---------+ | FALL | 5344180 | | Active | | Christen | | At risk | | | RISK | | | | | J. | | for | | | | (SNOMED | | | | [place] | | falls | | | | CT) | | | | ta FUTURES TRADER | | | | +---------+---------+---------+---------+---------+---------+---------+---------+---------+ | DIABETE | 3824176 | | Resolve | | Christen | | Periphe | | | S | 358581 | /14 | d | /15 | J. | | ral | | | MELLITU | (SNOMED | | | | [place] | | neuropa | | | S, TYPE | CT) | | | | ta FUTURES TRADER | | thy | | | II [...] | | | +---------+---------+---------+---------+---------+---------+---------+---------+---------+ | CORNS | [id number] | | Inactiv | | Kali | | Corns | | | AND | | | e | | Palacio | | and | | | CALLOSI | (SNOMED | | | | DPM | | callus | | | TIES | CT) | | | | | | | | +---------+---------+---------+---------+---------+---------+---------+---------+---------+ | HAMMER | 3049043 | | Active | | Kali | | Abdieler | | | TOE, | 08 | | | / | Hakeem | | toe | | | OTHER, | (SNOMED | | | | DPM | | | | | ACQUIRE | CT) | | | | | | | | | D | | | | | | | | | +---------+---------+---------+---------+---------+---------+---------+---------+---------+ | HALLUX | 5425773 | | Active | | Kali | [...] ropathy | | +---------+---------+---------+---------+---------+---------+---------+---------+---------+ | DIABETE | 2665968 | | Removed | | Kali | [...] s | | +---------+---------+---------+---------+---------+---------+---------+---------+---------+ | ONYCHOM | 8747342 | | Active | | Kali | | Onychom | | | YCOSIS | 08 | /01 | | /01 | Palacio | | ycosis | | | | (SNOMED | | | | DPM | | | | | | CT) | | | | | | | | +---------+---------+---------+---------+---------+---------+---------+---------+---------+ | HEARTBU | 7553813 | | Active | | Tiesha | | Heartbu | | | RN | 0 | /19 | | /19 | | | rn | | | | (SNOMED | | | | Maria Isabel | | | | | | CT) | | | | MD | | | | +---------+---------+---------+---------+---------+---------+---------+---------+---------+ | TYPE 2 | 5279295 | | Active | | Tiesha | | Disorde | | | DIABETE | 03 | / | | /19 | | | r due | | | S | (SNOMED | | | | [place] | | to type | | | [...] athy | | +---------+---------+---------+---------+---------+---------+---------+---------+---------+ | UTI | 4367500 | | Removed | | Pako | | Urinary | | | | 5 | /13 | | /13 | Middlek | | tract | | | | (SNOMED | | | | auff | | infecti | | | | CT) | | | | FUTURES TRADER | | ous | | | | | | | | | | disease | | +---------+---------+---------+---------+---------+---------+---------+---------+---------+ | LOCALIZ | 8543458 | | Removed | | D'Elena | [...] | | | +---------+---------+---------+---------+---------+---------+---------+---------+---------+ | LIPOMA | 1172310 | | Active | | Lauranc | | Lipoma | | | | 2 | /14 | | /14 | e W | | (clinic | | | | (SNOMED | | | | Lila | | al) | | | | CT) | | | | MD | | | | +---------+---------+---------+---------+---------+---------+---------+---------+---------+ | VITAMIN | 0593963 | | Active | | David Paez | | Vitamin | | | D | 6 | /14 | | /15 | Theen | | D | | | DEFICIE | (SNOMED | | | | MD FACE | | deficie | | | NCY | CT) | | | | FACP | | ncy | | +---------+---------+---------+---------+---------+---------+---------+---------+---------+ | OBESITY | 2662136 | | Active | | David Paez | | Obesity | | | , BMI | 01 | /14 | | /15 | Theen | | | | | 35-39.9 | (SNOMED | | | | MD FACE | | | | | , ADULT | CT) | | | | FACP | | | | +---------+---------+---------+---------+---------+---------+---------+---------+---------+ | DIABETE | 8936837 | | Removed | | David Paez | | Periphe | | | S | 105909 | /14 | | /15 | Theen [...] | | | +---------+---------+---------+---------+---------+---------+---------+---------+---------+ | HALLUX | 1853779 | | Inactiv | | Kali | [...] | | | +---------+---------+---------+---------+---------+---------+---------+---------+---------+ | HAMMER | 5356137 | | Inactiv | | Kali | [...] | | | +---------+---------+---------+---------+---------+---------+---------+---------+---------+ | ONYCHOM | 3697689 | | Inactiv | | Kali | [...] ropathy | | +---------+---------+---------+---------+---------+---------+---------+---------+---------+ | DIABETE | 5889331 | | Inactiv | | Kali | [...] s | | +---------+---------+---------+---------+---------+---------+---------+---------+---------+ | SCREENI | 2094046 | | Resolve | | Lauranc | | Depress | | | NG FOR | 06 | / | d | /10 | e W | | ion | | | DEPRESS | (SNOMED | | | | Lila | | screeni | | | ION | CT) | | | | MD | | ng | | +---------+---------+---------+---------+---------+---------+---------+---------+---------+ | SCREENI | 8541285 | | Resolve | | Lauranc | [...] | | | +---------+---------+---------+---------+---------+---------+---------+---------+---------+ | SCREENI | 9358668 | | Resolve | | Lauranc | [...] ng | | +---------+---------+---------+---------+---------+---------+---------+---------+---------+ | SCREENI | 1572936 | | Removed | | Geetha | | Alcohol | | | NG FOR | 01 | /10 | | /10 | Superior | | | | | ALCOHOL | (SNOMED | | | | [facility] | | consump | | | ISM | CT) | | | | | | tion | | | | | | | | | | screeni | | | | | | | | | | ng | | +---------+---------+---------+---------+---------+---------+---------+---------+---------+ | SCREENI | 8253166 | | Removed | | Geetha | [...] | | | +---------+---------+---------+---------+---------+---------+---------+---------+---------+ | SCREENI | 8329460 | | Removed | | Geetha | | Depress | | | NG FOR | | | | | Superior | | ion | | | DEPRESS | (SNOMED | | | | [facility]MA | | screeni | | | ION | CT) | | | | | | ng | | +---------+---------+---------+---------+---------+---------+---------+---------+---------+ | RENAL | 1130081 | | Removed | | Lauranc | | Acute | | | FAILURE | 1 | / | | | e W [...] e | | +---------+---------+---------+---------+---------+---------+---------+---------+---------+ | EDEMA | 2106969 | | Removed | | Lauranc | | Edema | | | | 08 | /15 | | /11 | e W | | | | | | (SNOMED | | | | Lila | | | | | | CT) | | | | MD | | | | +---------+---------+---------+---------+---------+---------+---------+---------+---------+ | RENAL | 5787956 | | Active | | Luz | [...] e | | +---------+---------+---------+---------+---------+---------+---------+---------+---------+ | PERIPHE | 3245525 | | Active | | Lauranc | [...] disease | | +---------+---------+---------+---------+---------+---------+---------+---------+---------+ | CANDIDI | 8787026 | | Active | | Susanna | | Candidi | | | ASIS, | 6 | | | | Medel | | asis of | | | SKIN | (SNOMED | | | | MD | | skin | | | | CT) | | | | | | | | +---------+---------+---------+---------+---------+---------+---------+---------+---------+ | DYSURIA | 8758568 | | Removed | | Erica | | Dysuria | | | | 1 | | | | Paul | | | | | | (SNOMED | | | | MA | | | | | | CT) | | | | | | | | +---------+---------+---------+---------+---------+---------+---------+---------+---------+ | VAGINIT | 0436542 | | Removed | | Erica | | Vaginit | | | IS | 1 | | | | Paul | | is | | | | (SNOMED | | | | MA | | | | | | CT) | | | | | | | | +---------+---------+---------+---------+---------+---------+---------+---------+---------+ | RLQ | 4718476 | | Resolve | | Lauranc | | Right | | | PAIN | 02 | | d | /11 | e W | | lower | | | | (SNOMED | | | | Lila | | quadran | | | | CT) | | | | MD | | t pain | | +---------+---------+---------+---------+---------+---------+---------+---------+---------+ | ABDOMIN | 8850312 | | Resolve | | Lauranc | | Abdomin | | | AL | 1 | | d | | e W | | al pain [...] | | | +---------+---------+---------+---------+---------+---------+---------+---------+---------+ | KNEE | 3625589 | | Active | | Lauranc | | Knee | | | PAIN | 3 | /14 | | /14 | e W | | pain | | | | (SNOMED | | | | Lila | | | | | | CT) | | | | MD | | | | +---------+---------+---------+---------+---------+---------+---------+---------+---------+ | Questio | 6707474 | | Correct | | Lauranc | [...] e | | +---------+---------+---------+---------+---------+---------+---------+---------+---------+ | VERTIGO | 0656985 | | Active | | Luz | | Vertigo | | | | | | | | Asad | | | | | | (SNOMED | | | | RN | | | | | | CT) | | | | | | | | +---------+---------+---------+---------+---------+---------+---------+---------+---------+ | CHEST | 6539694 | | Inactiv | | Genny | | Chest | | | PAIN | 9 | | e | / | Kaufman | | pain | | | | (SNOMED | | | | | | | | | | CT) | | | | | | | | +---------+---------+---------+---------+---------+---------+---------+---------+---------+ | CHEST | 5785754 | | Inactiv | | Lauranc | | Acute | | | PAIN, | | | e | | e W | | chest | [...] fied | | +---------+---------+---------+---------+---------+---------+---------+---------+---------+ | CEREBRO | 3430711 | | Active | | Rogers | | Cerebro | | | VASCULA | 0 | / | | / | Laith | | vascula | | | R | (SNOMED | | | | MD | | r | | | DISEASE | CT) | | | | | | disease | | +---------+---------+---------+---------+---------+---------+---------+---------+---------+ | History | [id number] | | Active | | Rogers | [...] | PROPHYL | (ICD- | | | | e W | [...] | | | +---------+---------+---------+---------+---------+---------+---------+---------+---------+ | DIABETI | [id number] | | Removed | | Rogers | [...] thy | | +---------+---------+---------+---------+---------+---------+---------+---------+---------+ | HYPERLI | 9200438 | | Active | | Rogers | [...] of | 05 | / | | /25 | Laith | | em | | | BRAIN | (SNOMED | | | | MD | | stroke | | | STEM | CT) | | | | | | syndrom | | | STROKE | | | | | | | e | | +---------+---------+---------+---------+---------+---------+---------+---------+---------+ | CEREBRA | 5321297 | | Correct | | Rogers | | Cerebra | | | L | 07 | / | ion | /16 | Laith | [...] s | | +---------+---------+---------+---------+---------+---------+---------+---------+---------+ | ABDOMIN | 1800503 | | Removed | | Patricia | [...] | | | +---------+---------+---------+---------+---------+---------+---------+---------+---------+ | RLQ | 7593429 | | Removed | | Patricia | [...] IA | (ICD-10 | /26 | | / | e W | | ia, | | | UNSPECI | -CM) | | | | Lila | | unspeci | | | FIED | | | | | MD | | fied | | +---------+---------+---------+---------+---------+---------+---------+---------+---------+ | CARPAL | 4770647 | | Active | | Rogers | | Carpal | | | 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 | | | | MD | | 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, LEFT | CT) | | | | | | e | | +---------+---------+---------+---------+---------+---------+---------+---------+---------+ | Questio | [id number] | | Removed | | Rogers | [...] | | | +---------+---------+---------+---------+---------+---------+---------+---------+---------+ | GAIT | [phone] | | Active | | Rogers | | Abnorma | | | IMBALAN | 2 | / | | / | Laith | | l gait | | | CE | (SNOMED | | | | MD | | | | | | CT) | | | | | | | | +---------+---------+---------+---------+---------+---------+---------+---------+---------+ | BRAIN | [id number] | | Correct | | Rogers | [...] e | | +---------+---------+---------+---------+---------+---------+---------+---------+---------+ | PARESTH | [id number] | | Removed | | Rogers | | Paresth | | | ESIA, | 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 | Laith | | esia of | | | HANDS | (SNOMED | | | | MD | | hand | | | | CT) | | | | | | | | +---------+---------+---------+---------+---------+---------+---------+---------+---------+ | PERIPHE | [id number] | | Correct | | Rogers | | Periphe | | | RAL | | | ion | /25 | Laith | | ral | | | NEUROPA | (SNOMED | | | | MD | | nerve | | | THY | CT) | | | | | | disease | | +---------+---------+---------+---------+---------+---------+---------+---------+---------+ | THYROID | [id number] | | Active | | Luz | | Thyroid | | | NODULE | 05 | /20 | | /20 | Eladio | | nodule | | | | (SNOMED | | | | [facility] | | | | | | CT) | | | | | | | | +---------+---------+---------+---------+---------+---------+---------+---------+---------+ | TIA | [id number] | | Active | | Lauranc | | Transie | | | | 00 | / | | /10 | e [...] a | | +---------+---------+---------+---------+---------+---------+---------+---------+---------+ | SYNCOPE | [id number] | | Removed | | Lauranc | | Syncope | | | | | | | / | e W | | | | | | (SNOMED | | | | Lila | | | | | | CT) | | | | MD | | | | +---------+---------+---------+---------+---------+---------+---------+---------+---------+ | GASTROP | [id number] | | Active | | Lauranc | | 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 | | | | (SNOMED | | | | Lila | | syndrom | | | | CT) | | | | MD | | e | | +---------+---------+---------+---------+---------+---------+---------+---------+---------+ | CONSTIP | [id number] | | Active | | Lauranc | | Chronic | | | ATION, | 09 | /08 | | /08 | e W | | | | | CHRONIC | (SNOMED | | | | Lila | | constip | | | | CT) | | | | MD | | ation | | +---------+---------+---------+---------+---------+---------+---------+---------+---------+ | POSTHER | [id number] | | Active | | Lauranc | | Posther | | | 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 | (SNOMED | | | | Lila | | neuralg | | | [place] | CT) | | | | MD | | ia | | +---------+---------+---------+---------+---------+---------+---------+---------+---------+ | DIZZINE | [id number] | | Removed | | Lauranc | | Dizzine | | | SS | 03 | /08 | | /08 | e W | | ss | | | | (SNOMED | | | | Lila | | | | | | CT) | | | | MD | | | | +---------+---------+---------+---------+---------+---------+---------+---------+---------+ | DEHYDRA | [id number] | | Removed | | Lauranc | | Dehydra | | | TION | 6 | /08 | | /08 | e W | | tion | | | | (SNOMED | | | | Lila | | | | | | CT) | | | | MD | | | | +---------+---------+---------+---------+---------+---------+---------+---------+---------+ | DIABETE | [id number] | | Removed | | Lauranc | [...] | | | +---------+---------+---------+---------+---------+---------+---------+---------+---------+ | HYPERTE | [id number] | | Active | | Lauranc | [...] Use to | | | INSULIN | [id number] | [facility] | | INSULIN | inject | | | SYRINGE-NE | 2 | Ankur DNP | | SYRINGE | insulin 5 | | | EDLE U-100 | | FUTURES TRADER | | 31G X | times | | | | | | | 10/09" 0.5 | daily Dx | | | | | | | ML | Code | | | | | | | | E11.40 | | | | | | + + + + + + + + | HUMALOG | 12 Units | | | INSULIN | [id number] | [facility] | | KWIKPEN | before | | | LISPRO | 9 | Ankur DNP | | 100 | meals | | | | | FUTURES TRADER | | UNIT/ML | SS:150-175 | | [...] Take one | | | LINACLOTID | [id number] | [facility] | | 145 MCG | tablet | | | E | 0 | Ankur DNP | | CAPS | daily as | | | | | FUTURES TRADER | | | needed for | | | | | | | | | | | | | | | | constipati | | | | | | | | on. | | | | | | + + + + + + + + | COLACE 100 | 1 pill | | | DOCUSATE | [id number] | [facility] | | MG CAPS | twice | | | SODIUM | 0 | Ankur DNP | | | daily for | | | | | FUTURES TRADER | | | soft | | | | | | | | stools | | | | | | + + + + + + + + | VITAMIN D | Take one | | | CHOLECALCI | [id number] | [facility] | | 1000 UNIT | tablet | | | FEROL | 1 | Ankur DNP | | TABS | daily in | | | | | FUTURES TRADER | | | the AM | | | | | | + + + + + + + + | VOLTAREN 1 | apply 3-4 | | | DICLOFENAC | [id number] | [facility] | | % GEL | times QD | | | SODIUM | 7 | Ankur DNP | | | PRN pain, | | | | | FUTURES TRADER | | | max 4 | | | | | | | | grams per | | | | | | | | applicatio | | | | | | | | n | | | | | | + + + + + + + + | CLONAZEPAM | Take one | | | CLONAZEPAM | [id number] | [facility] | | 0.5 MG | tablet | | | | 1 | Ankur DNP | | TABS | every 24 | | | | | FUTURES TRADER | | | hours as | | | | | | | | needed for | | | | | | | | anxiety | | | | | | + + + + + + + + | LASIX 80 | 1 tab by | | | FUROSEMIDE | [id number] | [facility] | | MG TABS | mouth one | | | | 5 | Ankur DNP | | | time per | | | | | FUTURES TRADER | | | day in the | | | | | | | | AM | | | | | | + + + + + + + + | LYRICA 100 | TAKE 1 | | | PREGABALIN | 3640259465 | [facility] | | MG CAPS | CAPSULE BY | | | | 8 | Ankur DNP | | | MOUTH | | | | | FUTURES TRADER | | | THREE | | | [...] TAKE 1 | | | IRBESARTAN | 7127939578 | [facility] | | 300 MG | TABLET BY | | | | 3 | Ankur DNP | | TABS | MOUTH ONCE | | | | | FUTURES TRADER | | | DAILY | | | | | | + + + + + + + + | EQ STOOL | TAKE 1 | | | DOCUSATE | [id number] | [facility] | | SOFTENER | CAPSULE BY | | | SODIUM | 5 | Ankur DNP | | 100 MG | MOUTH | | | | | FUTURES TRADER | | CAPS | TWICE | | | | | | | | DAILY FOR | | | | | | | | SOFT | | | | | | | | STOOLS | | | | | | + + + + + + + + | BASAGLAR | INJECT 68 | | | INSULIN | 1356348507 | [facility] | | KWIKPEN | UNITS | | | GLARGINE | 9 | Ankur DNP | | 100 | SUBCUTANEO | | | | | FUTURES TRADER | | UNIT/ML | USLY IN | [...] Take one | | | PANTOPRAZO | 0547424880 | [facility] | | LE SODIUM | tablet by | | | LE SODIUM | 8 | Ankur DNP | | 40 MG TBEC | mouth once | | | | | FUTURES TRADER | | | daily | | | | | | + + + + + + + + | NYSTATIN-T | Apply thin | | | NYSTATIN-T | 3025230926 | [facility] | | RIAMCINOLO | layer to | | | RIAMCINOLO | 5 | Ankur DNP | | NE | affected | | | NE | | FUTURES TRADER | | 845108-7.1 | area BID | | | | | | | UNIT/GM-% | prn for | | | | | | | CREA | itching | | | | | | + + + + + + + + | LINZESS | Take one | | | LINACLOTID | [id number] | [facility] | | 145 MCG | tablet | | | E | 0 | Ankur DNP | | CAPS | daily for | | | | | FUTURES TRADER | | | constipati | | | | | | | | on. | | | | | | + + + + + + + + | FUROSEMIDE | TAKE 1 | | | FUROSEMIDE | 6292935174 | [facility] | | 80 MG | TABLET BY | | | | 5 | Ankur DNP | | TABS | MOUTH ONCE | | | | | FUTURES TRADER | | | DAILY IN | | | | | | | | THE | | | | | | | | MORNING | | | | | | + + + + + + + + | VOLTAREN 1 | apply 3-4 | | | DICLOFENAC | 1903804135 | Fredy | | % GEL | [...] TAKE 1 | | | CHOLECALCI | 1765561431 | [facility] | | 1000 UNIT | TABLET BY | | | FEROL | 0 | Ankur DNP | | TABS | MOUTH ONCE | | | | | FUTURES TRADER | | | DAILY IN | | | | | | | | THE | | | | | | | | MORNING | | | | | | + + + + + + + + | ONETOUCH | Use to | | | BLOOD | 0708574838 | [facility] | | VERIO | test | | | GLUCOSE | 1 | Ankur DNP | | w/Device | glucose | | | MONITORING | | FUTURES TRADER | | KIT | four times | [...] use with | | | BLOOD | 9845865627 | [facility] | | PRIME | test [...] Use strip | | | GLUCOSE | 2852626944 | [facility] | | ULTRA BLUE | to checl | | | BLOOD | 0 | Ankur DNP | | STRP | glucose | | | | | FUTURES TRADER | | | four times | | [...] | USE | | | INSULIN | [id number] | [facility] | | INSULIN | SYRINGE 4 | | | SYRINGE-NE | 2 | Ankur DNP | | SYRINGE | TIMES | | | EDLE U-100 | | FUTURES TRADER | | 31G X | DAILYDx | | | | | | | 10/09" 0.5 | Code | | | | | | | ML | E11.40 | | | | | | + + + + + + + + | BD PEN | USE PEN | | | INSULIN | 1384482575 | [facility] | | NEEDLE | NEEDLE(S) | | | PEN NEEDLE | 9 | Ankur DNP | | SHORT U/F | 4 TIMES | | | | | FUTURES TRADER | | 31G X 8 MM | DAILYDx | | | | | | | | Code | | | | | | | | E11.40 | | | | | | + + + + + + + + | ONETOUCH | Use strip | | | GLUCOSE | 7598475141 | [facility] | | VERIO STRP | to checl | | | BLOOD | 0 | Ankur DNP | | | glucose | | | | | FUTURES TRADER | | | four times | | [...] Use to | | | GLUCOSE | 3561360717 | [facility] | | BLOOD | check [...] Take one | | | IRBESARTAN | 2230420786 | [facility] | | 300 MG | tablet | | | | 3 | Ankur DNP | | TABS | daily | | | | | FUTURES TRADER | + + + + + + + + | BD INSULIN | Use to | | | INSULIN | 4247404674 | [facility] | | SYRINGE | inject | | | SYRINGE-NE | 6 | Ankur DNP | | ULTRAFINE | insulin 5 | | | EDLE U-100 | | FUTURES TRADER | | 29G X 05/28" | times per | | | | | | | 0.5 ML | day | | | | | | + + + + + + + + | RELION | Use to | | | GLUCOSE | 5780104583 | [facility] | | BLOOD | check | | | BLOOD | 4 | Ankur DNP | | GLUCOSE | blood | | | | | FUTURES TRADER | | TEST STRP | sugars | [...] use with | | | BLOOD | 4018371587 | [facility] | | PRIME | test | | | GLUCOSE | 2 | Ankur DNP | | MONITOR | strips to | | | MONITORING | | FUTURES TRADER | | DYLAN | test BG | | | SUPPL | | | | | daily | | | | | | + + + + + + + + | RELION | use when | | | GLUCOSE | 4810135874 | [facility] | | BLOOD | testing BG | | | BLOOD | 4 | Ankur DNP | | GLUCOSE | | | | | | FUTURES TRADER | | TEST STRP | | | | | | | + + + + + + + + | BIOTIN 1 | Take one | | | BIOTIN | 7416267991 | Lorri | | MG CAPS | daily in | | | | 2 | Prabhakar | | | the AM | | | | | NCMA | + + + + + + + + | BASAGLAR | 68 Units | | | INSULIN | 7205452943 | [facility] | | KWIKPEN | every | | | GLARGINE | 9 | Ankur DNP | | 100 | morning | | | | | FUTURES TRADER | | UNIT/ML | (34 units | | | | | | | SOPN | on each | | | | | | | | side) | | | | | | + + + + + + + + | BASAGLAR | 65 Units | | | INSULIN | 4161686426 | [facility] | | KWIKPEN | every | | | GLARGINE | 9 | Ankur DNP | | 100 | morning | | | | | FUTURES TRADER | | UNIT/ML | | | | | | | | SOPN | | | | | | | + + + + + + + + | BASAGLAR | 60 Units | | | INSULIN | 8250316871 | [facility] | | KWIKPEN | every | | | GLARGINE | 9 | Ankur DNP | | 100 | morning | | | | | FUTURES TRADER | | UNIT/ML | | | | | | | | SOPN | | | | | | | + + + + + + + + | RELION | Use daily | | | GLUCOSE | 7013674416 | [facility] | | BLOOD | to check | | | BLOOD | 4 | Ankur DNP | | GLUCOSE | blood | | | | | FUTURES TRADER | | TEST STRP | sugar | | | | | | + + + + + + + + | DIABETIC | 1 pair per | | | DIABETIC | | [facility] | | ORTHOTIC | custom | | | ORTHOTIC | | Ankur DNP | | SHOES | fit from | | | SHOES | | FUTURES TRADER | | | podiatry | | | | | | | | E11.65, | | | | | | | | e11.21 | | | | | | + + + + + + + + | DIABETIC | 1 pair per | | | FOOT CARE | [id number] | [facility] | | INSOLES | custom | | | PRODUCTS | 1 | Ankur DNP | | | fit from | | | | | FUTURES TRADER | | | podiatry | | | | | | | | Dx. | | | | | | | | E11.65, | | | | | | | | e11.21 | | | | | | + + + + + + + + | BD INSULIN | Use 5 | | | INSULIN | 7535766120 | [facility] | | SYRINGE | times | | | SYRINGE-NE | 1 | Ankur DNP | | ULTRAFINE | daily to | | | EDLE U-100 | | FUTURES TRADER | | 29G X 1/2" | inject [...] Use daily | | | INSULIN | 5048778782 | [facility] | | NEEDLE | to inject | | | PEN NEEDLE | 0 | Ankur DNP | | ORIGINAL | insulin | | | | | FUTURES TRADER | | U/F 29G X | | | | | | | | 12.7MM | | | | | | | + + + + + + + + | RELION PEN | | | | INSULIN | 2825536200 Thien Boggs | | NEEDLES | | | | PEN NEEDLE | 4 | Ankur DNP | | 31G X 8 MM | | | | | | FUTURES TRADER | + + + + + + + + | MISC | | | | MISC | | [facility] | | | | | | | | Ankur DNP | | | | | | | | FUTURES TRADER | + + + + + + + + | NERVE | | | | NERVE | | [facility] | | PAIN | | | | PAIN | | Ankur DNP | | | | | | | | FUTURES TRADER | + + + + + + + + | HEARTBU | | | | HEARTBU | | [facility] | | RN/NAUSEA* | | | | RN/NAUSEA* | | Ankur DNP | | | | | | | | FUTURES TRADER | + + + + + + + + | STROKE | | | | STROKE | | [facility] | | PREVENTION | | | | PREVENTION | | Ankur DNP | | | | | | | | FUTURES TRADER | + + + + + + + + | BLOOD | | | | BLOOD | | [facility] | | PRESSURE | | | | PRESSURE | | Ankur DNP | | * | | | | * | | FUTURES TRADER | + + + + + + + + | DIABETE | | | | DIABETE | | [facility] | | S | | | | S | | Ankur DNP | | | | | | | | FUTURES TRADER | + + + + + + + + | MIRALAX | 17 gm | | | POLYETHYLE | 8346866124 | [facility] | | POWD | daily | | | NE GLYCOL | 2 | Ankur DNP | | | stirred | | | 3350 | | FUTURES TRADER | | | into 4-8 | | [...] 1 pill | | | DOCUSATE | 4573780908 | [facility] | | MG CAPS | twice | | | SODIUM | 0 | Ankur DNP | | | daily for | | | | | FUTURES TRADER | | | soft | | | | | | | | stools | | | | | | + + + + + + + + | NOVOLOG | 12 Units | | | INSULIN | 9253156492 | [facility] | | 100 | before | | | ASPART | 1 | Ankur DNP | | UNIT/ML | meals | | | | | FUTURES TRADER | | SOLN | SS:150-175 | | [...] 1 capsule | | | PREGABALIN | 1714148100 | [facility] | | MG CAPS | three | | | | 8 | Ankur DNP | | | times | | | | | FUTURES TRADER | | | daily for | | | | | | | | neuropathy | | | | | | + + + + + + + + | LYRICA 100 | 1 tab | | | PREGABALIN | 8619028978 | [facility] | | MG CAPS | three | | | | 8 | Ankur DNP | | | times per | | | | | FUTURES TRADER | | | day. Pt | | | | | | | | states as | | | | | | | | needed | | | | | | + + + + + + + + | PROCHLORPE | Insert one | | | PROCHLORPE | 0634183441 | [facility] | | RAZINE 25 | | | | RAZINE | 0 | Ankur DNP | | MG SUPP | suppositor | | | | | FUTURES TRADER | | | y rectally | | | | | | | | every 24 | | | | | | | | hours as | | | | | | | | needed | | | | | | + + + + + + + + | VICTOZA 18 | .6 mg x 1 | | | LIRAGLUTID | 3963026136 | [facility] | | MG/3ML | week then | | | E | 2 | Ankur DNP | | SOPN | 1.2 mg | | | | | FUTURES TRADER | | | daily per | | | | | | | | week | | | | | | + + + + + + + + | RELION PEN | | | | INSULIN | 3056644016 | David | | NEEDLES | | | | PEN NEEDLE | 4 | Mark DO | | 31G X 8 MM | | | | | | | + + + + + + + + | NOVOLOG | 3U before | | | INSULIN | 4609572981 | Scarlett | | 100 | lunch [...] 1 tid | | | PREGABALIN | 3534469625 | Christen Ramirez | | MG CAPS | | | | | 8 | [place] | | | | | | | | FUTURES TRADER | + + + + + + + + | PROMETHAZI | Take one | | | PROMETHAZI | 9627463401 | [facility] | | NE HCL 25 [...] Insert one | | | PROCHLORPE | 5436908589 | [facility] | | RAZINE 25 | [...] Take one | | | CLONAZEPAM | 9029697382 | [facility] | | 0.5 MG | [...] Take one | | | PANTOPRAZO | 5440514251 | [facility] | | LE SODIUM | tablet by | | | LE SODIUM | 8 | Ankur DNP | | 40 MG TBEC | mouth once | | | | | FUTURES TRADER | | | daily | | | | | | + + + + + + + + | NITROFURAN | Take one | | | NITROFURAN | 7977651754 | [facility] | | TOIN | capsule | | | TOIN | 1 | [facility] | | MONOHYD | every 12 [...] x 1 | | | LIRAGLUTID | [id number] | Christen Kena. | | MG/3ML | week then | | | E | 2 | [place] | | SOPN | 1.2 mg | | | | | FUTURES TRADER | | | daily per | | | | | | | | week | | | | | | + + + + + + + + | VICTOZA 18 | Inject 0.6 | | | LIRAGLUTID | 4565771135 | Christen J. | | MG/3ML | mg daily | | | E | 2 | [place] | | SOPN | | | | | | FUTURES TRADER | + + + + + + + + | DRAMAMINE | take 1-2 | | | DIMENHYDRI | 8964724485 | Christen Kena. | | 50 MG TABS | tabs 4 | | | MARCELA | 2 | [place] | | | times per | | | | | FUTURES TRADER | | | day as | | | | | | | | needed | | | | | | + + + + + + + + | NEURONTIN | take 1 tab | | | GABAPENTIN | 3835813129 | Christen Ramirez | | 300 MG | po tid . | | | | 4 | [place] | | CAPS | Pt states | | | | | FUTURES TRADER | | | as needed | | | | | | + + + + + + + + | PIOGLITAZO | Take 1 tab | | | PIOGLITAZO | 2401352533 | Christen Ramirez | | NE HCL 15 | by mouth | | | NE HCL | 6 | [place] | | MG TABS | one time | | | | | FUTURES TRADER | | | per day in | | | | | | | | the AM | | | | | | + + + + + + + + | NITROFURAN | Take one | | | NITROFURAN | 3280695147 | [facility] | | TOIN | capsule [...] NITROFURAN | | | | NITROFURAN | 6579097826 | [facility] | | TOIN | | [...] Take 1 | | | GLIPIZIDE | 7294387928 | [facility] | | XL 2.5 MG | tablet | | | | 1 | Ankur DNP | | [id number] | p.o. | | | | | FUTURES TRADER | | | q.a.m. | | | | | | + + + + + + + + | NOVOLOG | 3U before | | | INSULIN | 6314178169 | David | | 100 | lunch [...] 3U before | | | INSULIN | 4062348511 | Christen Ramirez | | 100 | lunch and | | | LISPRO | 1 | [place] | | UNIT/ML | 5U before | | | | | FUTURES TRADER | | SOLN | Dinner | | [...] <150 - | | | INSULIN | 5298705196 | Christen Ramirez | | 100 | No insulin | | | LISPRO | 1 | [place] | | UNIT/ML | BS | | | (HUMAN) | | FUTURES TRADER | | SOLN | 150-200 | | [...] Take as | | | EXENATIDE | 9705869973 | Christen Ramirez | | MCG PEN 5 | directed | | | | 1 | [place] | | MCG/0.02ML | once daily | | | | | FUTURES TRADER | | SOPN | in the AM | | | | | | + + + + + + + + | BASAGLAR | 1 pen | | | INSULIN | 6174917427 | Christen Ramirez | | KWIKPEN | every 3 | | | GLARGINE | 9 | [place] | | 100 | days 56 | | | | | FUTURES TRADER | | UNIT/ML | units q | | | | | | | SOPN | Day | | | | | | + + + + + + + + | BASAGLAR | 56 Units | | | INSULIN | 8596760367 | David | | KWIKPEN | every [...] Inject 0.6 | | | LIRAGLUTID | 4392841830 | Christen Ramirez | | MG/3ML | mg daily | | | E | 2 | [place] | | SOPN | | | | | | FUTURES TRADER | + + + + + + + + | VICTOZA 18 | 5 unit AM | | | LIRAGLUTID | [id number] | Christen Escudero. | | MG/3ML | and 5 | | | E | 2 | [place] | | SOPN | units PM | | | | | FUTURES TRADER | + + + + + + + + | BASAGLAR | 1 pen | | | INSULIN | 5370037581 | Christen Ramirez | | KWIKPEN | every 3 | | | GLARGINE | 9 | [place] | | 100 | days 56 | | | | | FUTURES TRADER | | UNIT/ML | units q | | | | | | | SOPN | Day | | | | | | + + + + + + + + | MECLIZINE | One tab by | | | MECLIZINE | 0277679115 | [facility] | | HCL 25 MG | mouth | | | HCL | 0 | Ankur DNP | | TABS | three | | | | | FUTURES TRADER | | | times per | | [...] 56 Units | | | INSULIN | 0114640301 | Christen Ramirez | | KWIKPEN | by mouth | | | GLARGINE | 9 | [place] | | 100 | every | | | | | FUTURES TRADER | | UNIT/ML | morning | | | | | | | SOPN | | | | | | | + + + + + + + + | SUPREP | mix and | | | NA | 4748426824 | Maulik | | BOWEL PREP | [...] mix and | | | NA | 7280912760 | Emeka | | BOWEL PREP | [...] pill BID | | | DOCUSATE | [id number] | [facility] | | MG CAPS | | | | SODIUM | 0 | Ankur DNP | | | | | | | | FUTURES TRADER | + + + + + + + + | RELION | Use daily | | | GLUCOSE | 9797588550 | Tiesha | | BLOOD | to [...] custom | | | ORTHOTIC | | [place] MD | | SHOES | fit from | | | SHOES | | | | | podiatry | | | | | | | | E11.65, | | | | | | | | e11.21 | | | | | | + + + + + + + + | DIABETIC | 1 pair per | | | FOOT CARE | 8063526938 | Tiesha | | INSOLES | custom [...] 1 pill | | | CEPHALEXIN | 3841336599 | Tiesha | | MG CAPS | twice a | | | | 1 | Maria Isabel MD | | | day for 7 | | | | | | | | days | | | | | | + + + + + + + + | BD INSULIN | Use 5 | | | INSULIN | 5819652346 | [facility] | | SYRINGE | times | | | SYRINGE-NE | 1 | Ankur DNP | | ULTRAFINE | daily to | | | EDLE U-100 | | FUTURES TRADER | | 29G X /2" | inject [...] 56 units | | | INSULIN | 9357522900 | Kaykay | | UNIT/ML | qAM | | | GLARGINE | 3 | Mora DO | | SOLN | | | | | | | + + + + + + + + | KEFLEX 500 | 1 pill | | | CEPHALEXIN | 6699248099 | Pako | | MG CAPS | twice a | | | | 1 | Middlekauf | | | day for 7 | | | | | f FUTURES TRADER | | | days | | | | | | + + + + + + + + | LANTUS 100 | 50 units | | | INSULIN | 7579640536 | [facility] | | UNIT/ML | once per | | | GLARGINE | 3 | Middlekauf | | SOLN | day. Pt | | | | | f FUTURES TRADER | | | states she | | | | | | | | is taking | | | | | | | | 56 units | | | | | | | | every AM | | | | | | + + + + + + + + | BIOTIN 1 | Take one | | | BIOTIN | 9817317359 | [facility] | | MG CAPS | daily in | | | | 2 | Ankur DNP | | | the AM | | | | | FUTURES TRADER | + + + + + + + + | VICTOZA 18 | | | | LIRAGLUTID | 3813482827 | Jesus | | MG/3ML | | | | E | 2 | Ethan MD | | SOPN | | | | | | | + + + + + + + + | BYETTA 5 | Take as | | | EXENATIDE | 5894588160 | Christen Ramirez | | MCG PEN 5 | directed | | | | 1 | [place] | | MCG/0.02ML | once daily | | | | | FUTURES TRADER | | SOPN | in the AM | | | | | | + + + + + + + + | VITAMIN D | Take one | | | CHOLECALCI | 3268810160 | [facility] | | 1000 UNIT | tablet | | | FEROL | 1 | Ankur DNP | | TABS | daily in | | | | | FUTURES TRADER | | | the AM | | | | | | + + + + + + + + | POTASSIUM | Take one | | | POTASSIUM | [id number] | Ambrose | | CHLORIDE | cap daily | | | CHLORIDE | 1 | Ankur DNP | | ER 10 MEQ | in the AM | | | | | FUTURES TRADER | | CR-CAPS | | | | | | | + + + + + + + + | NEURONTIN | take 1 tab | | | GABAPENTIN | [id number] | Jesus | | 300 MG | po tid . | | | | 4 | Ethan MD | | CAPS | Pt states | | | | | | | | as needed | | | | | | + + + + + + + + | LASIX 80 | 1 tab by | | | FUROSEMIDE | [id number] | Ambrose | | MG TABS | mouth one | | | | 5 | Ankur DNP | | | time per | | | | | FUTURES TRADER | | | day in the | | | | | | | | AM | | | | | | + + + + + + + + | LYRICA 100 | 1 tab | | | PREGABALIN | [id number] | Christen Ramirez | | MG CAPS | three | | | | 8 | [place]um[place]ita | | | times per | | | | | FUTURES TRADER | | | day. Pt | | | | | | | | states as | | | | | | | | needed | | | | | | + + + + + + + + | OMEPRAZOLE | Take one | | | OMEPRAZOLE | [id number] | Ambrose | | 40 MG | by mouth | | | | 0 | Ankur DNP | | CPDR | one time | | | | | FUTURES TRADER | | | per day | | [...] tab by | | | CLOPIDOGRE | [phone] | Ambrose | | MG TABS | mouth one | | | L | 1 | Ankur DNP | | | time per | | | BISULFATE | | FUTURES TRADER | | | day in the | | | | | | | | evening | | | | | | + + + + + + + + | LIPITOR 20 | take 1 | | | ATORVASTAT | [phone] | Ambrose | | MG TABS | tablet by | | | IN CALCIUM | 3 | Ankur DNP | | | mouth | | | | | FUTURES TRADER | | | daily in | | | | | | | | the | | | | | | | | evening | | | | | | + + + + + + + + | VALSARTAN | Take one | | | VALSARTAN | [phone] | Ambrose | | 160 MG | tablet | | | | 7 | Ankur DNP | | TABS | daily in | | | | | FUTURES TRADER | | | the AM | | | | | | + + + + + + + + | PIOGLITAZO | Take 1 tab | | | PIOGLITAZO | [id number] | Jesus | | NE HCL 15 [...] 25 units | | | INSULIN | [id number] | Jesus | | UNIT/ML | two [...] 18 | | | | LIRAGLUTID | [phone] | Bailey W | | MG/3ML | | | | E | 2 | Lila MD | | SOPN | | | | | | | + + + + + + + + | BYETTA 5 | 0.02 ml | | | EXENATIDE | [id number] | Laurance W | | MCG PEN 5 | injection | | | | 1 | Lila MD | | MCG/0.02ML | two times | | | | | | | SOPN | per day | | | | | | + + + + + + + + | DRAMAMINE | take 1-2 | | | DIMENHYDRI | [id number] | Laurance W | | 50 MG [...] 1 | | | | BIOTIN | [id number] | Kali | | MG CAPS | | | | | 2 | Palacio DPM | + + + + + + + + | VITAMIN D | | | | CHOLECALCI | [id number] | Kali | | 1000 UNIT | | | | FEROL | 1 | Hakeem DPM | | TABS | | | | | | | + + + + + + + + | POTASSIUM | | | | POTASSIUM | [phone] | Kali | | CHLORIDE | | | | CHLORIDE | 1 | Hakeem DICKEYM | | ER 10 MEQ | | | | | | | | CR-CAPS | | | | | | | + + + + + + + + | BUSPIRONE | 1 TAB | | | BUSPIRONE | [phone] | Kali | | HCL 7.5 MG | three | | | HCL | 1 | Hakeem DICKEYM | | TABS | times per | | | | | | | | day | | | | | | + + + + + + + + | COLACE 100 | 1 tab by | | | DOCUSATE | [phone] | Kali | | MG CAPS | mouth | | | SODIUM | 0 | Palacio DPM | | | daily at | | | | | | | | bedtime | | | | | | + + + + + + + + | RELION | Use to | | | GLUCOSE | [id number] | Kali | | BLOOD | test BG | | | BLOOD | 4 | Palacio DPM | | GLUCOSE | one time | | | | | | | TEST STRP | per day | | | | | | + + + + + + + + | ONDANSETRO | 1 tab | | | ONDANSETRO | [phone] | Kali | | N HCL 4 MG | every 4 | | | N HCL | 3 | Palacio DPM | | TABS | hours | | | | | | + + + + + + + + | CILOSTAZOL | 1 tab two | | | CILOSTAZOL | [id number] | Kali | | 100 MG | times per | | | | 1 | Palacio DPM | | TABS | day | | | | | | + + + + + + + + | LANTUS 100 | 25 units | | | INSULIN | [id number] | Laurance W | | UNIT/ML | two times | | | GLARGINE | 3 | Lila MD | | SOLN | per day | | | | | | + + + + + + + + | NEURONTIN | take 1 tab | | | GABAPENTIN | 3110662961 | Laurance W | | 300 MG [...] tab by | | | FUROSEMIDE | [id number] | Laurance W | | MG TABS | mouth one | | | | 5 | Lila MD | | | time per | | | | | | | | day | | | | | | + + + + + + + + | FUROSEMIDE | 1 tab one | | | FUROSEMIDE | [phone] | Laurance W | | 40 MG | time per | | | | 5 | Lila MD | | TABS | day | | | | | | + + + + + + + + | BUSPIRONE | 1 TAB | | | BUSPIRONE | [id number] | Laurance W | | HCL 7.5 MG | three | | | HCL | 1 | Lila MD | | TABS | times per | | | | | | | | day | | | | | | + + + + + + + + | COLACE 100 | 1 tab by | | | DOCUSATE | [id number] | Franciscoance W | | MG CAPS | mouth | | | SODIUM | 0 | Lila MD | | | daily at | | | | | | | | bedtime | | | | | | + + + + + + + + | LYRICA 100 | 1 tab | | | PREGABALIN | 8954370111 | Franciscoance W | | MG CAPS | three | | | | 8 | Lila MD | | | times per | | | | | | | | day | | | | | | + + + + + + + + | GABAPENTIN | Take 2 | | | GABAPENTIN | 6017578183 | Laurance W | | 300 MG [...] by mouth | | | TRIMETHOPR | 5283655742 | Laurance W | | 800-160 | twice a | | | IM-SULFAME | 1 | Lila MD | | MG TABS | day for 3 | | | THOXAZOLE | | | | | days | | | | | | + + + + + + + + | BACTRIM DS | 1 by mouth | | | TRIMETHOPR | 5365527548 | Laurance W | | 800-160 | [...] 1 tab | | | MECLIZINE | 8049857778 | Bailey W | | HCL 25 MG | three | | | HCL | 0 | Lila MD | | TABS | times per | | | | | | | | day | | | | | | + + + + + + + + | GLUCOPHAGE | 1 tab one | | | METFORMIN | 8663595163 | Bailey W | | XR 500 MG | time per | | | HCL | 3 | Lila MD | | [id number] | day | | | | | | + + + + + + + + | BD INSULIN | Use 5 | | | INSULIN | 4310307423 | Bailey W | | SYRINGE | [...] 1 tab | | | PREGABALIN | 4911853522 | Bailey W | | MG CAPS [...] Use daily | | | INSULIN | [id number] | Ambrose | | NEEDLE | to inject | | | PEN NEEDLE | 0 | Ankur DNP | | ORIGINAL | insulin | | | | | FUTURES TRADER | | U/F 29G X | | | | | | | | 12.7MM | | | | | | | + + + + + + + + | PIOGLITAZO | Take 1 tab | | | PIOGLITAZO | 9570209828 | Franciscoance W | | NE HCL 15 | by mouth | | | NE HCL | 6 | Lila MD | | MG TABS | one time | | | | | | | | per day | | | | | | + + + + + + + + | FLUCONAZOL | take one | | | FLUCONAZOL | 2432959704 | Laurance W | | E 150 MG | tablet PO | | | E | 1 | Lila MD | | TABS | x 1 repeat | | | | | | | | in 3 days | | | | | | + + + + + + + + | LYRICA 50 | TAKE ONE | | | PREGABALIN | 9962617088 | Kesha | | MG CAPS | [...] Take 2 | | | GABAPENTIN | 9201911790 | Bailey W | | 300 MG [...] 0.02 ml | | | EXENATIDE | 4119797413 | Laurance W | | MCG PEN 5 | injection | | | | 1 | Lila MD | | MCG/0.02ML | two times | | | | | | | SOPN | per day | | | | | | + + + + + + + + | BYETTA 5 | 0.2 ml | | | EXENATIDE | 8567880850 | Bailey W | | MCG PEN 5 | injection | | | | 1 | Lila MD | | MCG/0.02ML | two times | | | | | | | SOPN | per day | | | | | | + + + + + + + + | LYRICA 50 | TAKE ONE | | | PREGABALIN | 5135466629 | Bailey W | | MG CAPS [...] 1 tab | | | MECLIZINE | 4152643786 | Laurance W | | HCL 25 MG | three | | | HCL | 0 | Lila MD | | TABS | times per | | | | | | | | day | | | | | | + + + + + + + + | CILOSTAZOL | 1 tab two | | | CILOSTAZOL | 3660450592 | Laurance W | | 100 MG | times per | | | | 1 | Lila MD | | TABS | day | | | | | | + + + + + + + + | ONDANSETRO | 1 tab | | | ONDANSETRO | 5015096056 | Laurance W | | N HCL 4 MG | every 4 | | | N HCL | 3 | Lila MD | | TABS | hours | | | | | | + + + + + + + + | LYRICA 50 | 1 tab | | | PREGABALIN | 0409144597 | Laurance W | | MG CAPS | three | | | | 8 | Lila MD | | | times per | | | | | | | | day | | | | | | + + + + + + + + | KEFLEX 500 | one po TID | | | CEPHALEXIN | 4776181765 | Susanna | | MG CAPS | | | | | 1 | Gianfranco LUIS | + + + + + + + + | NYSTATIN-T | Apply thin | | | NYSTATIN-T | 0646156814 | Ambrose | | RIAMCINOLO | layer to | | | RIAMCINOLO | 5 | Ankur DNP | | NE | affected | | | NE | | FUTURES TRADER | | 670411-2.1 | area BID | | | | | | | UNIT/GM-% | prn for | | | | | | | CREA | itching | | | | | | + + + + + + + + | FLUCONAZOL | take one | | | FLUCONAZOL | 8770921497 | Susanna | | E 150 MG | tablet PO | | | E | 1 | Gianfranco LUIS | | TABS | x 1 repeat | | | | | | | | in 3 days | | | | | | + + + + + + + + | ASPIRIN | take 1 | | | ASPIRIN | 4137032044 | Laurance W | | 325 MG [...] tab by | | | CLOPIDOGRE | 0885092109 | Laurance W | | MG TABS | mouth one | | | L | 1 | Lila MD | | | time per | | | BISULFATE | | | | | day | | | | | | + + + + + + + + | LYRICA 50 | 1 tab | | | PREGABALIN | 7122735509 | Laurance W | | MG CAPS | three | | | | 8 | Lila MD | | | times per | | | | | | | | day | | | | | | + + + + + + + + | GLUCOPHAGE | 1 tab one | | | METFORMIN | 6836688489 | Laurance W | | XR 500 MG | time per | | | HCL | 3 | Lila MD | | [id number] | day | | | | | | + + + + + + + + | MECLIZINE | One tab by | | | MECLIZINE | 9320322255 | Laurance W | | HCL 25 [...] 10ml's two | | | METFORMIN | 0509313740 | Laurance W | | MG/5ML | [...] Take 2 | | | GABAPENTIN | 3440744332 | Laurance W | | 300 MG [...] TAB one | | | VALSARTAN | 4056278612 | Bailey W | | 160 MG | time per | | | | 8 | Lila MD | | TABS | day | | | | | | + + + + + + + + | DULOXETINE | 1 tab one | | | DULOXETINE | 5667735830 | Laurance W | | HCL 30 MG | time per | | | HCL | 6 | Lila MD | | CPEP | day | | | | | | + + + + + + + + | GABAPENTIN | take 2 | | | GABAPENTIN | 5556371262 | Franciscoance W | | 300 MG [...] tab one | | | DULOXETINE | 0301769136 | Laurance W | | HCL 30 MG | time per | | | HCL | 6 | Lila MD | | CPEP | day | | | | | | + + + + + + + + | VICTOZA 18 | 1.2 mg | | | LIRAGLUTID | 6621584747 | Laurance W | | MG/3ML | injected | | | E | 2 | Lila MD | | SOPN | martin | | | | | | + + + + + + + + | DIOVAN 320 | 1 TAB one | | | VALSARTAN | 2007854921 | Laurance W | | MG TABS | time per | | | | 4 | Lila MD | | | day | | | | | | + + + + + + + + | MECLIZINE | One tab by | | | MECLIZINE | 9445099730 | Laurance W | | HCL 25 [...] one time | | | VALSARTAN | 5129515519 | Mariano | | MG TABS | per day | | | | 4 | Ariella | | | | | | | | CCMA | + + + + + + + + | GABAPENTIN | take 2 | | | GABAPENTIN | 3260933259 | Mariano | | 300 MG | [...] Take one | | | OMEPRAZOLE | 0836799887 | Bailey W | | 40 MG [...] | | | CIPRO | | Bailey Paez | | | unknown | | | | | Lila MD | | | strength | | | | | | + + + + + + + + | GABAPENTIN | take 2 | | | GABAPENTIN | 3320382472 | Laurance W | | 300 MG [...] two times | | | MECLIZINE | 9480666544 | Laurance W | | HCL 25 MG | per day | | | HCL | 0 | Lila MD | | TABS | | | | | | | + + + + + + + + | DIOVAN 320 | 1 tab one | | | VALSARTAN | 0407591874 | Laurance W | | MG TABS | time per | | | | 4 | Lila MD | | | day | | | | | | + + + + + + + + | VICTOZA 18 | 0.6 mg | | | LIRAGLUTID | 5037119705 | Laurance W | | MG/3ML | [...] take 1 | | | ASPIRIN | 0277219789 | Rogers | | 325 MG | [...] tab one | | | SITAGLIPTI | 0419750972 | Bailey W | | 100 MG | time per | | | N | 2 | Lila MD | | TABS | day | | | PHOSPHATE | | | + + + + + + + + | DIOVAN 160 | 1 by mouth | | | VALSARTAN | 1307544100 | Laurance W | | MG TABS | every day | | | | 4 | Lila MD | + + + + + + + + | GABAPENTIN | 2 tabs two | | | GABAPENTIN | 1763356891 | Laurance W | | 300 MG | times per | | | | 5 | Lila MD | | CAPS | day | | | | | | + + + + + + + + | LANTUS 100 | 56 units | | | INSULIN | 8550710958 | Laurance W | | UNIT/ML | in the | | | GLARGINE | 3 | Lila MD | | SOLN | morning | | | | | | + + + + + + + + | RIOMET 500 | 10ml's two | | | METFORMIN | 2283994022 | Laurance W | | MG/5ML | [...] tab at | | | GABAPENTIN | 9973307926 | Laurance W | | 100 MG [...] 28 units | | | INSULIN | 0506203986 | Laurance W | | UNIT/ML | two times | | | GLARGINE | 3 | Lila MD | | SOLN | per day | | | | | | + + + + + + + + | LISINOPRIL | take 1 | | | LISINOPRIL | 8733857484 | Rogers | | 20 MG | tablet by | | | | 1 | Laith MD | | TABS | mouth | | | | | | | | daily | | | | | | + + + + + + + + | MECLIZINE | two times | | | MECLIZINE | 3781550130 | Mariano | | HCL 25 MG | per day | | | HCL | 0 | Ariella | | TABS | | | | | | CCMA | + + + + + + + + | ERGOCALCIF | One | | | ERGOCALCIF | 2581141963 | Mariano | | QUANG 54724 | capsule by | | | QUANG [...] two times | | | GABAPENTIN | 6275988499 | Mariano | | 100 MG | per day | | | | 1 | Ariella | | CAPS | | | | | | CCMA | + + + + + + + + | METFORMIN | two times | | | METFORMIN | 6037869281 | Mariano | | HCL 1000 | per day | | | HCL | 5 | Ariella | | MG TABS | | | | | | CCMA | + + + + + + + + | RIOMET 500 | 10ml QAM | | | METFORMIN | 4428517352 | Mariano | | MG/5ML | Liquid due | | | HCL | 1 | Ariella | | SOLN | to | | | | | CCMA | | | Dysphagia | | | | | | + + + + + + + + | ASPIRIN EC | take 1 | | | ASPIRIN | 3662912299 | Mariano | | 325 MG | tablet | | | | 1 | Ariella | | TBEC | daily | | | | | CCMA | + + + + + + + + | ASPIRIN 81 | one time | | | ASPIRIN | 5832119081 | Mariano | | MG ORAL | per day | | | | 5 | Ariella | | TABLET | | | | | | CCMA | + + + + + + + + | GABAPENTIN | 1 by mouth | | | GABAPENTIN | 6715757349 | Bailey W | | 100 MG [...] take 1 | | | ATORVASTAT | 5862773797 | Bailey Paez | | MG TABS | tablet by | | | IN CALCIUM | 3 | Lila MD | | | mouth | | | | | | | | daily | | | | | | + + + + + + + + | ASPIRIN EC | take 1 | | | ASPIRIN | 7783610414 | Rogers | | 325 MG | tablet | | | | 1 | Laith MD | | TBEC | daily | | | | | | + + + + + + + + | RELION | Use to | | | GLUCOSE | 4712902183 | Bailey W | | BLOOD | test BG | | | BLOOD | 4 | Lila MD | | GLUCOSE | one time | | | | | | | TEST STRP | per day | | | | | | + + + + + + + + | RIOMET 500 | 10ml QAM | | | METFORMIN | 1470481934 | Laurance W | | MG/5ML | Liquid due | | | HCL | 1 | Lila MD | | SOLN | to | | | | | | | | Dysphagia | | | | | | + + + + + + + + | ERGOCALCIF | One | | | ERGOCALCIF | 3522496620 | Laurance W | | QUANG 05791 | capsule by | | | QUANG [...] one tablet | | | DOCUSATE | 6678348280 | Laurance W | | MG CAPS | by mouth | | | SODIUM | 0 | Lila MD | | | at bedtime | | | | | | + + + + + + + + | GABAPENTIN | one tablet | | | GABAPENTIN | 7142217671 | Laurance W | | 100 MG [...] by mouth | | | MECLIZINE | 1902801266 | Laurance W | | HCL 25 [...] by mouth | | | LISINOPRIL | 4452002735 | Laurance W | | 5 MG TABS | one time | | | | 1 | Lila MD | | | per day | | | | | | + + + + + + + + | COLACE 100 | one tablet | | | DOCUSATE | 8173024810 | Laurance W | | MG CAPS | by mouth | | | SODIUM | 0 | Lila MD | | | at bedtime | | | | | | + + + + + + + + | MECLIZINE | 1 by mouth | | | MECLIZINE | 2316071052 | Laurance W | | HCL 25 [...] one tablet | | | GABAPENTIN | 4135922967 | Laurance W | | 100 MG | by mouth | | | | 1 | Llia MD | | CAPS | three | | | | | | | | times | | | | | | | | daily | | | | | | + + + + + + + + | METFORMIN | one tablet | | | METFORMIN | 2917997766 | Laurance W | | HCL 1000 | by mouth | | | HCL | 5 | Lila MD | | MG TABS | twice a | | | | | | | | day | | | | | | + + + + + + + + | ASPIRIN 81 | 1 by mouth | | | ASPIRIN | 3243610698 | Laurance W | | MG ORAL | every day | | | | 5 | Lila MD | | TABLET | | | | | | | + + + + + + + + | HUMALOG | BS <150 - | | | INSULIN | 5021167120 | Tiesha | | 100 | No [...] 56 units | | | INSULIN | 8108901497 | Bailey W | | UNIT/ML | [...] | Critical | No Longer | David W | | | she [...] | | | | | | | FUTURES TRADER | + + + + + + + | GABAPENTIN | UNKNOWN | | Mild | No Longer | Bailey Paez | | | | | | Active [...] | hallucinatio | | Critical | | Franciscoance W | | | ns | | [...] | HGB | 12.2 | g/dL | 11.7-15.5 | N | hemoglobin | | | | | | | | , blood | + + + + + +---+ + | | ALBUMIN | 4.3 | g/dL | 3.6-5.1 | N | [...] | CO2 | 21 | mmol/L | 20-32 | N | carbon | | | | | | | | dioxide, | | | | | | | | venous | | | | | | | | blood | + + + + + +---+ + | | CHLORIDE | 109 | mmol/L | 98-110 | N | chloride, | | | | | | | | serum | + + + + + +---+ + | | POTASSIUM | 5.2 | mmol/L | 3.5-5.3 | N | potassium, | | | | | | | | serum | + + + + + +---+ + | | SODIUM | 138 | mmol/L | 135-146 | N | sodium, | | | | | | | | serum | + + + + + +---+ + | | BUN/CREAT | 23 (calc) | | 6-22 | H | urea | | | | | | | | nitrogen/c | | | | | | | | reatinine | | | | | | | | ratio, | | | | | | | | serum | + + + + + +---+ + | | EGFR | 30 | mL/min/1.7 | > OR = 60 [...] +---+ + | | GFRC | 26 | mL/min/1.7 | > OR = 60 [...] + +---+ + | | CREATININE | 1.90 | mg/dL | 0.60-0.93 | H | creatinine | | | | | | | | , serum | + + + + + +---+ + | | BUN | 43 | mg/dL | 7-25 | H | urea | | | | | | | | nitrogen, | | | | | | | | blood | + + + + + +---+ + | | GLUCOSE | 175 | mg/dL | 65-99 | H | blood | | | SER | | | | | glucose | + + + + + +---+ + Plan of Care + + + + | Type | Date | Detail | + + + + | Appointment | 01:00 PM | Hector Armendariz DPM, [address] | | | | [address], | | | | [place], [address], | | | | | + + + + | Referral | | Ophthalmology Consult | | | | Huong Rose, | | | | [address], [place], | | | | [place], [address] | | | | | + + + + | Referral | | Ophthalmology Consult | | | | Huong Rose, | | | | [address], [place], | | | | [place], [address] | | | | | + + + + | Referral | | Orthopedic Consult | | | | Jae Osullivan | | | | Surg, [address] , | | | | [place], [address] | | | | | + + + + | Referral | | Ophthalmology Consult | | | | Huong Rose, | | | | [address], [place], | | | | [place], [address] | | | | | + + + + | Referral | | [facility] | | | | Dian Atkins, [address] | | | [address], | | | | [place], [address] | | | | | + + + + +---+ + | | Referral excluded from report: | +---+ + + + + + | Referral | | [facility] | | | | Dian Atkins, [address] | | | | [address] [facility], | | | | [place], [address] | | | | | + + [...] | + + + + + | [id number] | Overweight | | | + + + + + | [id number] | Overweight | | | + + + + + | [id number] | Overweight | | | + + + + + | [id number] | Overweight | | | + + + + + | [id number] | Overweight | | | + + + + + | CPT-84783 | Glucose by monitor | | | + + + + + | [id number] | Overweight | | | + + + + + | UA CULT IF MULTIPLE | Urinalysis Culture | | | | | If Indicat | | | + + + + + | GLYCO HGB 60413 | Glyco Hemoglobin, | | | | | A1C | | | + + + + + | CPT-60695 | UA Dipstick | | | + + + + + | CPT-11401 05154 | XR Knee WgtB Bilat | | | | | AP W 1-2V-Rt | | | + + + + + | [id number] | Overweight | | | + + + + + | GLYCO HGB 04366 | Glyco Hemoglobin, | | | | | A1C | | | + + + + + | CPT-98594 | Adm 1st Inj No | | | | | counseling or >18 | | | + + + + + | CPT-99893 | Prevnar 13 | | | | | (Pneumococcal >7 | | | + + + + + | [id number] | Overweight | | | + + + + + | CPT-39975 | Physical Therapy | | | | | Evaluation | | | + + + + + | CPT-92002 | Glucose by monitor | | | + + + + + | [id number] | Overweight | | | + + + + + | [id number] | Overweight | | | + + + + + | GLYCO HGB 53127 | Glyco Hemoglobin, | | | | | A1C | | | + + + + + | GLYCO HGB 34867 | Glyco Hemoglobin, | | | | | A1C | | | + + + + + | [facility]-[id number] | Overweight | | | + + + + + | RISK 77951 | Lipid Profile | | | + + + + + | GLYCO HGB 63082 | Glyco Hemoglobin, | | | | | A1C | | | + + + + + | CPT-70161 | IV infusion -1st hr | | | | | (Rehydration) | | | + + + + + | CPT-28788 | Glucose by monitor | | | + + + + + | CPT-32497 | UA Dipstick | | | + + + + + +---+ + | | Order excluded from report: | +---+ + + + + + + | VIT D HYDR 80871 | Vit D, 25 hydroxy | | [...]
--- OUTSIDE RECORDS SUMMARY | ~2019-03-25 | XMS ---
Demographics + + + | Address | [address] [place] [address] | | | [place] [address] | + + + | Home Phone | | + + + | Preferred Language | Unknown | + + + | Marital Status | S | + + + | Catholic Affiliation | Unknown | + + + | Race | Unspecified | + + + | Ethnic Group | or | + + + Author + + + | Author | [facility] | + + + | Organization | [facility] | + + + | Address | [address] | | | [place] [address] | + + + | Phone | Unavailable | + + + Care Team Providers + + + + | Care Linker Up Name | Role | Phone | + + + + Unavailable | Unavailable | + + + + Reason for Visit + + + | Reason For Visit Description | Start Date | + + + | General Notes | | + + + | | HPI Chronic 73 year old female | | | presents in office today for VIELKA from | | | Ambrose NOELP. At patients request she | | | was fit in to Dr. Sandy's schedule | | | due to preferring a female provider. | | | Patient was informed she would be seen | | | after the patient who arrived before her. | | | Shortly after patient left clinic without | | | any notification. No services rendered. | | | .......................................... | | | .........................Mariano Blanco MA | | | March 17, 2019 3:34 PM Per Mariano | | | notes above. I had no contact with this | | | patient. Nurse Intake | | | Height: 60in. Weight: 193.4 lbs. Pulse: | | | 78(regular) BMI: 37.91 Wt ch.60 | | | Pulse Oximetry: O2 sat. at rest is 96% on | | | RA BP #1: 126/72 Position:sitting | | | Pulse:78 Site:left arm Time:3:35 PM | | | Vitals entered by: Mariano Blanco MA on | | | March 17, 2019 3:35 PM | | | | + + + Assessments No information available. Chief Complaint No information available. History of Past Illness No information available."
--- OUTSIDE RECORDS SUMMARY | ~2019-03-25 | XMS | Clinical Summary ---
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 | Phone [...] | E86.9 | | Active | | Edward | | Volume | | | DEPLETI | (ICD-10 | /16 | | /16 | Ottenhe | | depleti | | | ON | -) | | | | sheila MD | | on, | | | UNSPECI | | | | | | | unspeci | | | FIED | | | | | | | fied | | +---------+---------+---------+---------+---------+---------+---------+---------+---------+ | DIABETE | [id number] | | Active | | David | [...] s | | +---------+---------+---------+---------+---------+---------+---------+---------+---------+ | NAUSEA | [id number] | | Resolve | | Geetha | | Nausea | | | ALONE | | | d | | Patrick | | | | | | (SNOMED | | | | [facility] | | | | | | CT) | | | | | | | | +---------+---------+---------+---------+---------+---------+---------+---------+---------+ | VACCINA | [id number] | | Resolve | | Geetha | | Medicat | | | TION | 02 | | d | /03 | Posen | | ion | | | FOR [...] | | | +---------+---------+---------+---------+---------+---------+---------+---------+---------+ | FLANK | [id number] | | Active | | Geetha | | Flank | | | PAIN | 05 | /01 | | /01 | Patrick | | pain | | | | (SNOMED | | | | [facility]MA | | | | | | CT) | | | | | | | | +---------+---------+---------+---------+---------+---------+---------+---------+---------+ | VACCINA | [id number] | | Removed | | Ambrose | | Medicat | | | TION | 02 | /03 | | /03 | Ankur | | ion | | | FOR | (SNOMED | | | | DNP BRUSH CLEANER | | given | | | STREP [...] | | | +---------+---------+---------+---------+---------+---------+---------+---------+---------+ | OSTEOAR | [id number] | | Active | | Edna | | Osteoar | | | THRITIS | 07 | /16 | | /18 | Hope | | thritis | | | , KNEE, | (SNOMED | | | | [facility] | | of | | | RIGHT | CT) | | | | | | knee | | +---------+---------+---------+---------+---------+---------+---------+---------+---------+ | CONSTIP | [id number] | | Active | | Ambrose | | Constip | | | ATION | 8 | /13 | | /13 | Ankur | | ation | | | | (SNOMED | | | | DNP BRUSH CLEANER | | | | | | CT) | | | | | | | | +---------+---------+---------+---------+---------+---------+---------+---------+---------+ | TYPE 2 | E11.21 | | Active | | Ambrose | | Type 2 | | | DIABETE | (ICD-10 | /19 | | /19 | Ankur | | diabete | | | S | -CM) | | | | DNP BRUSH CLEANER | | s | | | MELLITU [...] athy | | +---------+---------+---------+---------+---------+---------+---------+---------+---------+ | DIABETE | [id number] | | Inactiv | | Ambrose | | Type 2 | | | S | 6 | /08 | e | /08 | Ankur | | diabete | | | MELLITU | (SNOMED | | | | DNP BRUSH CLEANER | | s | | | S, TYPE | CT) | | | | | | mellitu | | | II, ON | | | | | | | s | | | | | | | | | | | | | INSULIN | | | | | | | | | +---------+---------+---------+---------+---------+---------+---------+---------+---------+ | DEHYDRA | [id number] | | Resolve | | Ambrose | | Dehydra | | | TION | 6 | /08 | d | /08 | [place] | | tion | | | | (SNOMED | | | | DNP BRUSH CLEANER | | | | | | CT) | | | | | | | | +---------+---------+---------+---------+---------+---------+---------+---------+---------+ | DIZZINE | [id number] | | Inactiv | | Ambrose | | Dizzine | | | SS | 03 | /08 | e | /08 | Ankur | | ss | | | | (SNOMED | | | | DNP BRUSH CLEANER | | | | | | CT) | | | | | | | | +---------+---------+---------+---------+---------+---------+---------+---------+---------+ | ANEMIA | [id number] | | Inactiv | | Ambrose | | Anemia | | | | 00 | /10 | e | /10 | Ankur | | | | | | (SNOMED | | | | DNP BRUSH CLEANER | | | | | | CT) | | | | | | | | +---------+---------+---------+---------+---------+---------+---------+---------+---------+ | CONSTIP | [id number] | | Inactiv | | Ambrose | | Constip | | | ATION | 8 | /13 | e | /13 | Ankur | | ation | | | | (SNOMED | | | | DNP BRUSH CLEANER | | | | | | CT) | | | | | | | | +---------+---------+---------+---------+---------+---------+---------+---------+---------+ | SYNCOPE | [id number] | | Resolve | | Ambrose | | Syncope | | | | 07 | /07 | d | /10 | Ankur | | | | | | (SNOMED | | | | DNP BRUSH CLEANER | | | | | | CT) | | | | | | | | +---------+---------+---------+---------+---------+---------+---------+---------+---------+ | DYSPHAG | R13.10 | | Resolve | | Ambrose | | Dysphag | | | IA | (ICD-10 | | d | | Ankur | | ia, | | | UNSPECI | -CM) | | | | DNP BRUSH CLEANER | | unspeci | | | FIED | | | | | | | fied | | +---------+---------+---------+---------+---------+---------+---------+---------+---------+ | PARESTH | [id number] | | Inactiv | | Ambrose | | Paresth | | | ESIA, | | | e | | Ankur | | esia of | | | HANDS | (SNOMED | | | | DNP BRUSH CLEANER | | hand | | | | CT) | | | | | | | | +---------+---------+---------+---------+---------+---------+---------+---------+---------+ | DIABETI | [id number] | | Inactiv | | Ambrose | | Diabeti | | | C | | | e | | Ankur | | c | | | PERIPHE | (SNOMED | | | | DNP BRUSH CLEANER | | periphe | | | RAL [...] | -CM) | | | | DNP BRUSH CLEANER | | unspeci | | | FIED | | | | | | | fied | | +---------+---------+---------+---------+---------+---------+---------+---------+---------+ | VAGINIT | [id number] | | Resolve | | Ambrose | | Vaginit | | | IS | 1 | /31 | d | /31 | Ank[place] | | is | | | | (SNOMED | | | | DNP BRUSH CLEANER | | | | | | CT) | | | | | | | | +---------+---------+---------+---------+---------+---------+---------+---------+---------+ | DYSURIA | [id number] | | Resolve | | Ambrose | | Dysuria | | | | 1 | /31 | d | /31 | Ankur | | | | | | (SNOMED | | | | DNP BRUSH CLEANER | | | | | | CT) | | | | | | | | +---------+---------+---------+---------+---------+---------+---------+---------+---------+ | EDEMA | [id number] | | Inactiv | | Ambrose | | Edema | | | | 08 | / | e | / | Ankur | | | | | | (SNOMED | | | | DNP BRUSH CLEANER | | | | | | CT) | | | | | | | | +---------+---------+---------+---------+---------+---------+---------+---------+---------+ | RENAL | [id number] | | Inactiv | | Ambrose | | Acute | | | FAILURE | 1 | / | e | / | Ankur | | renal | | | , ACUTE | (SNOMED | | | | DNP BRUSH CLEANER | | failure | | | | CT) | | | | | | | | | | | | | | | | syndrom | | | | | | | | | | e | | +---------+---------+---------+---------+---------+---------+---------+---------+---------+ | DIABETE | [id number] | | Inactiv | | Ambrose | | Periphe | | | S | 02 | / | e | / | Ankur | | ral | | | MELLITU | (SNOMED | | | | DNP BRUSH CLEANER | | vascula | | | S, [...] | -CM) | | | | DNP BRUSH CLEANER | | s | | | DIABETI [...] ropathy | | +---------+---------+---------+---------+---------+---------+---------+---------+---------+ | LOCALIZ | [id number] | | Resolve | | Ambrose | | Disorde | | | ED | 09 | /30 | d | /30 | Ankur | | r of | | | SWELLIN | (SNOMED | | | | DNP BRUSH CLEANER | | forearm | | | G [...] | | | +---------+---------+---------+---------+---------+---------+---------+---------+---------+ | UTI | [id number] | | Resolve | | Ambrose | | Urinary | | | | 5 | /13 | d | /13 | Ank[place] | | tract | | | | (SNOMED | | | | DNP BRUSH CLEANER | | infecti | | | | [...] | -CM) | | | | DNP BRUSH CLEANER | | s | | | MELLITU [...] athy | | +---------+---------+---------+---------+---------+---------+---------+---------+---------+ | DEMENTI | [id number] | | Inactiv | | Ambrose | | Procedu | | | A | | | e | | Ankur | | re | | | SCREENI | (SNOMED | | | | DNP BRUSH CLEANER | | carried | | | NG | CT) | | | | | | out on | | | | | | | | | | | | | | | | | | | | subject | | +---------+---------+---------+---------+---------+---------+---------+---------+---------+ | CHANGE | [id number] | | Inactiv | | Ambrose | | Altered | | | IN | 9 | /13 | e | /13 | Ankur | | bowel | | | BOWEL | (SNOMED | | | | DNP BRUSH CLEANER | | functio | | | HABITS | CT) | | | | | | n | | +---------+---------+---------+---------+---------+---------+---------+---------+---------+ | MILD | [id number] | | Inactiv | | Ambrose | | Mild | | | COGNITI | | | e | | Ankur | | cogniti | | | VE | (SNOMED | | | | DNP BRUSH CLEANER | | ve | | | IMPAIRM | CT) | | | | | | disorde | | | ENT | | | | | | | r | | +---------+---------+---------+---------+---------+---------+---------+---------+---------+ | DIABETE | [id number] | | Inactiv | | Ambrose | | Periphe | | | S | 536445 | /11 | e | / | [place] | | ral | | | MELLITU | (SNOMED | | | | DNP BRUSH CLEANER | | neuropa | | | S, [...] fied | | +---------+---------+---------+---------+---------+---------+---------+---------+---------+ | DIABETE | [id number] | | Active | | David Paez | | Periphe | | | S | 807203 | /15 | | /15 | Theen [...] | | | +---------+---------+---------+---------+---------+---------+---------+---------+---------+ | MUSCLE | 6004145 | | Active | | Christen | | Muscle | | | PAIN | 1 | | | | J. | | pain | | | | (SNOMED | | | | [place] | | | | | | CT) | | | | ta BRUSH CLEANER | | | | +---------+---------+---------+---------+---------+---------+---------+---------+---------+ | DIABETE | 6578646 | | Removed | | David W | | Periphe | | | S | 654752 | /11 | | /12 | Theen [...] | | | +---------+---------+---------+---------+---------+---------+---------+---------+---------+ | MILD | 5965399 | | Removed | | Maulik | [...] uterus | | +---------+---------+---------+---------+---------+---------+---------+---------+---------+ | COLONIC | 7336594 | | Active | | Emeka | [...] | | | +---------+---------+---------+---------+---------+---------+---------+---------+---------+ | CONSTIP | 5707851 | | Removed | | Emeka | | Constip | | | ATION | 8 | | | | Petre | | ation | | | | (SNOMED | | | | MD | | | | | | CT) | | | | | | | | +---------+---------+---------+---------+---------+---------+---------+---------+---------+ | CHANGE | 7573733 | | Removed | | Emeka | | Altered | | | IN | 9 | /13 | | /13 | Petre | | bowel | | | BOWEL | (SNOMED | | | | MD | | functio | | | HABITS | CT) | | | | | | n | | +---------+---------+---------+---------+---------+---------+---------+---------+---------+ | DECREAS | 5182184 | | Active | | Emeka | | Decreas | | | ED | 6 | | | 13 | Petre | | e in | | | APPETIT | (SNOMED | | | | MD | | appetit | | | E | CT) | | | | | | e | | +---------+---------+---------+---------+---------+---------+---------+---------+---------+ | WEIGHT | 7086765 | | Active | | Emeka | | Abnorma | | | LOSS | 01 | | | 13 | Petre | | l | | | ABNORMA | (SNOMED | | | | MD | | weight | | | L | CT) | | | | | | loss | | +---------+---------+---------+---------+---------+---------+---------+---------+---------+ | NAUSEA | 6118763 | | Removed | | Emeka | | Nausea | | | ALONE | 07 | / | | /13 | Petre | | | | | | (SNOMED | | | | MD | | | | | | CT) | | | | | | | | +---------+---------+---------+---------+---------+---------+---------+---------+---------+ | RECTAL | 3392788 | | Active | | Emeka | | Rectal | | | BLEEDIN | 2 | | | | Petre | | hemorrh | | | G | (SNOMED | | | | MD | | age | | | | CT) | | | | | | | | +---------+---------+---------+---------+---------+---------+---------+---------+---------+ | DEMENTI | 0583911 | | Active | | Christen | | Dementi | | | A | 6 | /10 | | /10 | J. | | a | | | WITHOUT | (SNOMED | | | | [place] | | | | | | CT) | | | | ta BRUSH CLEANER | | | | | BEHAVIO | | | | | | | | | | RAL | | | | | | | | | | DISTURB | | | | | | | | | | ANCE | | | | | | | | | +---------+---------+---------+---------+---------+---------+---------+---------+---------+ | CHRONIC | 9462071 | | Active | | Christen | | Chronic | | | | 03 | /10 | | /10 | J. | | | | | PROGRES | (SNOMED | | | | [place] | | progres | | | SIVE | CT) | | | | ta BRUSH CLEANER | | sive | | | RENAL | | | | | | | renal | | | FAILURE | | | | | | | failure | | +---------+---------+---------+---------+---------+---------+---------+---------+---------+ | ANEMIA | [id number] | | Removed | | Christen | | Anemia | | | | 00 | /10 | | /10 | J. | | | | | | (SNOMED | | | | [place] | | | | | | CT) | | | | ta BRUSH CLEANER | | | | +---------+---------+---------+---------+---------+---------+---------+---------+---------+ | DEMENTI | 6285088 | | Removed | | Christen | | Procedu | | | A | 03 | / | | / | J. | | re | | | SCREENI | (SNOMED | | | | [place] | | carried | | | NG | CT) | | | | ta BRUSH CLEANER | | out on | | | | | | | | | | | | | | | | | | | | subject | | +---------+---------+---------+---------+---------+---------+---------+---------+---------+ | FALL | [id number] | | Active | | Christen | | At risk | | | RISK | 07 | /21 | | /22 | J. | | for | | | | (SNOMED | | | | [place] | | falls | | | | CT) | | | | ta BRUSH CLEANER | | | | +---------+---------+---------+---------+---------+---------+---------+---------+---------+ | DIABETE | [id number] | | Resolve | | Christen | | Periphe | | | S | 733927 | /14 | d | /15 | J. | | ral | | | MELLITU | (SNOMED | | | | [place] | | neuropa | | | S, TYPE | CT) | | | | ta BRUSH CLEANER | | thy | | | II [...] | | | +---------+---------+---------+---------+---------+---------+---------+---------+---------+ | CORNS | [id number] | | Inactiv | | Kali | | Corns | | | AND | 00 | / | e | | Palacio | | and | | | CALLOSI | (SNOMED | | | | DPM | | callus | | | TIES | CT) | | | | | | | | +---------+---------+---------+---------+---------+---------+---------+---------+---------+ | HAMMER | 7555381 | | Active | | Kali | [...] | | | +---------+---------+---------+---------+---------+---------+---------+---------+---------+ | HALLUX | 1232693 | | Active | | Kali | | Acquire | | | VALGUS, | | | | | Hakeem | [...] ropathy | | +---------+---------+---------+---------+---------+---------+---------+---------+---------+ | DIABETE | 8506348 | | Removed | | Kali | | Periphe | | | S | 02 | | | /01 | Palacio | | ral [...] s | | +---------+---------+---------+---------+---------+---------+---------+---------+---------+ | ONYCHOM | 4118988 | | Active | | Kali | | Onychom | | | YCOSIS | 08 | /01 | | /01 | Palacio | | ycosis | | | | (SNOMED | | | | DPM | | | | | | CT) | | | | | | | | +---------+---------+---------+---------+---------+---------+---------+---------+---------+ | HEARTBU | 5588400 | | Active | | Tiesha | | Heartbu | | | RN | 0 | / | | /19 | | | rn | | | | (SNOMED | | | | [place] | | | | | | CT) | | | | MD | | | | +---------+---------+---------+---------+---------+---------+---------+---------+---------+ | TYPE 2 | [id number] | | Active | | Tiesha | | Disorde | | | DIABETE | 03 | /19 | | / | | | r [...] S | -CM) | | | | [place] | | s | | | MELLITU [...] athy | | +---------+---------+---------+---------+---------+---------+---------+---------+---------+ | UTI | [id number] | | Removed | | Pako | | Urinary | | | | 5 | /13 | | /13 | Middlek | | tract | | | | (SNOMED | | | | auff | | infecti | | | | CT) | | | | BRUSH CLEANER | | ous | | | | | | | | | | disease | | +---------+---------+---------+---------+---------+---------+---------+---------+---------+ | LOCALIZ | 7876715 | | Removed | | D'Elena | | Disorde | | | ED | | | | | Canales | | [...] | | | +---------+---------+---------+---------+---------+---------+---------+---------+---------+ | LIPOMA | 5978955 | | Active | | Lauranc | | Lipoma | | | | 2 | /14 | | /14 | e W | | (clinic | | | | (SNOMED | | | | Lila | | al) | | | | CT) | | | | MD | | | | +---------+---------+---------+---------+---------+---------+---------+---------+---------+ | VITAMIN | 0825299 | | Active | | David W | | Vitamin | | | D | 6 | /14 | | /15 | Theen | | D | | | DEFICIE | (SNOMED | | | | MD FACE | | deficie | | | NCY | CT) | | | | FACP | | ncy | | +---------+---------+---------+---------+---------+---------+---------+---------+---------+ | OBESITY | 9231733 | | Active | | Davdi Paez | | Obesity | | | , BMI | 01 | /14 | | /15 | Theen | | | | | 35-39.9 | (SNOMED | | | | MD FACE | | | | | , ADULT | CT) | | | | FACP | | | | +---------+---------+---------+---------+---------+---------+---------+---------+---------+ | DIABETE | 0285107 | | Removed | | David Paez | | Periphe | | | S | 746865 | /14 | | /15 | Theen [...] | | | +---------+---------+---------+---------+---------+---------+---------+---------+---------+ | HALLUX | 0632604 | | Inactiv | | Kali | [...] | | | +---------+---------+---------+---------+---------+---------+---------+---------+---------+ | HAMMER | 5755824 | | Inactiv | | Kali | [...] | | | +---------+---------+---------+---------+---------+---------+---------+---------+---------+ | ONYCHOM | 8675062 | | Inactiv | | Kali | | Onychom | | | YCOSIS | 08 | | e | /01 | Palacio | | ycosis [...] ropathy | | +---------+---------+---------+---------+---------+---------+---------+---------+---------+ | DIABETE | 9529504 | | Inactiv | | Kali | [...] s | | +---------+---------+---------+---------+---------+---------+---------+---------+---------+ | SCREENI | 8317903 | | Resolve | | Lauranc | | Depress | | | NG FOR | 06 | /10 | d | /10 | e W | | ion | | | DEPRESS | (SNOMED | | | | Lila | | screeni | | | ION | CT) | | | | MD | | ng | | +---------+---------+---------+---------+---------+---------+---------+---------+---------+ | SCREENI | 7535841 | | Resolve | | Lauranc | [...] | | | +---------+---------+---------+---------+---------+---------+---------+---------+---------+ | SCREENI | 2180598 | | Resolve | | Lauranc | [...] ng | | +---------+---------+---------+---------+---------+---------+---------+---------+---------+ | SCREENI | 3619280 | | Removed | | Geetha | [...] ng | | +---------+---------+---------+---------+---------+---------+---------+---------+---------+ | SCREENI | 0851849 | | Removed | | Geetha | [...] | | | +---------+---------+---------+---------+---------+---------+---------+---------+---------+ | SCREENI | 5609073 | | Removed | | Geetha | | Depress | | | NG FOR | 06 | /10 | | /10 | Patrick | | ion | | | DEPRESS | (SNOMED | | | | [facility] | | screeni | | | ION | CT) | | | | | | ng | | +---------+---------+---------+---------+---------+---------+---------+---------+---------+ | RENAL | 3862172 | | Removed | | Lauranc | | Acute | | | FAILURE | | | | | e W [...] e | | +---------+---------+---------+---------+---------+---------+---------+---------+---------+ | EDEMA | 1922324 | | Removed | | Lauranc | | Edema | | | | 08 | / | | | e W | | | | | | (SNOMED | | | | Lila | | | | | | CT) | | | | MD | | | | +---------+---------+---------+---------+---------+---------+---------+---------+---------+ | RENAL | 4197859 | | Active | | Luz | [...] e | | +---------+---------+---------+---------+---------+---------+---------+---------+---------+ | PERIPHE | 6251976 | | Active | | Lauranc | [...] disease | | +---------+---------+---------+---------+---------+---------+---------+---------+---------+ | CANDIDI | 1902359 | | Active | | Susanna | | Candidi | | | ASIS, | | | | / | Medel | | asis of | | | SKIN | (SNOMED | | | | MD | | skin | | | | CT) | | | | | | | | +---------+---------+---------+---------+---------+---------+---------+---------+---------+ | DYSURIA | 5552646 | | Removed | | Erica | | Dysuria | | | | 1 | /31 | | /31 | Paul | | | | | | (SNOMED | | | | MA | | | | | | CT) | | | | | | | | +---------+---------+---------+---------+---------+---------+---------+---------+---------+ | VAGINIT | 0357086 | | Removed | | Erica | | Vaginit | | | IS | 1 | /31 | | /31 | Palu | | is | | | | (SNOMED | | | | MA | | | | | | CT) | | | | | | | | +---------+---------+---------+---------+---------+---------+---------+---------+---------+ | RLQ | 3899816 | | Resolve | | Lauranc | | Right | | | PAIN | 02 | | d | /11 | e W | | lower | | | | (SNOMED | | | | Lila | | quadran | | | | CT) | | | | MD | | t pain | | +---------+---------+---------+---------+---------+---------+---------+---------+---------+ | ABDOMIN | 2964088 | | Resolve | | Lauranc | [...] ACTIC | -CM) | | | | Lial | | immuniz | | | VACCINA | | | | | MD | | ation | | | TION&IN | | | | | | | | | | OCULATI | | | | | | | | | | ON FLU | | | | | | | | | +---------+---------+---------+---------+---------+---------+---------+---------+---------+ | KNEE | 7075586 | | Active | | Lauranc | | Knee | | | PAIN | 3 | /14 | | /14 | e W | | pain | | | | (SNOMED | | | | Lila | | | | | | CT) | | | | MD | | | | +---------+---------+---------+---------+---------+---------+---------+---------+---------+ | Questio | 7108078 | | Correct | | Lauranc | [...] | | | +---------+---------+---------+---------+---------+---------+---------+---------+---------+ | VERTEBR | 9602597 | | Active | | Lauranc | [...] e | | +---------+---------+---------+---------+---------+---------+---------+---------+---------+ | VERTIGO | 2252591 | | Active | | Luz | | Vertigo | | | | 01 | /28 | | /03 | Asad | | | | | | (SNOMED | | | | RN | | | | | | CT) | | | | | | | | +---------+---------+---------+---------+---------+---------+---------+---------+---------+ | CHEST | 4802371 | | Inactiv | | Genny | | Chest | | | PAIN | 9 | | e | /02 | Kaufman | | pain | | | | (SNOMED | | | | | | | | | | CT) | | | | | | | | +---------+---------+---------+---------+---------+---------+---------+---------+---------+ | CHEST | 3062429 | | Inactiv | | Lauranc | | Acute | | | PAIN, | 01 | / | e | /14 | e W | | chest | | | ACUTE | (SNOMED | | | | Lila | | pain | | | | CT) | | | | MD | | | | +---------+---------+---------+---------+---------+---------+---------+---------+---------+ | DYSPHAG | R13.10 | | Removed | | Aptricia | | Dysphag | | | IA | (ICD-10 | | | /14 | | | ia, | | | UNSPECI | -CM) | | | | Stewart | | unspeci | | | FIED | | | | | CCMA | | fied | | +---------+---------+---------+---------+---------+---------+---------+---------+---------+ | CEREBRO | [id number] | | Active | | Rogers | | Cerebro | | | VASCULA | 0 | / | | | Laith | | vascula | | | R | (SNOMED | | | | MD | | r | | | DISEASE | CT) | | | | | | disease | | +---------+---------+---------+---------+---------+---------+---------+---------+---------+ | History | 1379759 | | Active | | Rogers | [...] PROPHYL | (ICD-10 | / | | / [...] | | | +---------+---------+---------+---------+---------+---------+---------+---------+---------+ | DIABETI | [id number] | | Removed | | Rogers | [...] thy | | +---------+---------+---------+---------+---------+---------+---------+---------+---------+ | HYPERLI | 6835744 | | Active | | Rogers | | Hyperli | | | PIDEMIA | 4 | /30 | | /30 | Laith | | pidemia | | | | (SNOMED | | | | MD | | | | | | CT) | | | | | | | | +---------+---------+---------+---------+---------+---------+---------+---------+---------+ | History | 7341936 | | Active | | Rogers | [...] e | | +---------+---------+---------+---------+---------+---------+---------+---------+---------+ | CEREBRA | [id number] | | Correct | | Rogers | [...] s | | +---------+---------+---------+---------+---------+---------+---------+---------+---------+ | ABDOMIN | 4399557 | | Removed | | Patricia | [...] | | | +---------+---------+---------+---------+---------+---------+---------+---------+---------+ | RLQ | 7069519 | | Removed | | Patricia | [...] fied | | +---------+---------+---------+---------+---------+---------+---------+---------+---------+ | CARPAL | 7298181 | | Active | | Rogers | | Carpal | | | TUNNEL | 9 | /25 | | /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 | | | | MD | | 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, LEFT | CT) | | | | | | e | | +---------+---------+---------+---------+---------+---------+---------+---------+---------+ | Quest[facility] | [id number] | | Removed | | Rogers | [...] | | | +---------+---------+---------+---------+---------+---------+---------+---------+---------+ | GAIT | 4321681 | | Active | | Rogers | | Abnorma | | | IMBALAN | 2 | / | | / | Laith | | l gait | | | CE | (SNOMED | | | | MD | | | | | | CT) | | | | | | | | +---------+---------+---------+---------+---------+---------+---------+---------+---------+ | BRAIN | [id number] | | Correct | | Rogers | [...] e | | +---------+---------+---------+---------+---------+---------+---------+---------+---------+ | PARESTH | [id number] | | Removed | | Rogers | | Paresth | | | ESIA, | | | | | Laith | | esia of | | | HANDS | (SNOMED | | | | MD | | hand | | | | CT) | | | | | | | | +---------+---------+---------+---------+---------+---------+---------+---------+---------+ | PERIPHE | [id number] | | Correct | | Rogers | | Periphe | | | RAL | | | ion | /25 | Laith | | ral | | | NEUROPA | (SNOMED | | | | MD | | nerve | | | THY | CT) | | | | | | disease | | +---------+---------+---------+---------+---------+---------+---------+---------+---------+ | THYROID | [id number] | | Active | | Luz | | Thyroid | | | NODULE | 05 | /20 | | /20 | Eladio | | nodule | | | | (SNOMED | | | | [facility] | | | | | | CT) | | | | | | | | +---------+---------+---------+---------+---------+---------+---------+---------+---------+ | TIA | [id number] | | Active | | Lauranc | [...] a | | +---------+---------+---------+---------+---------+---------+---------+---------+---------+ | SYNCOPE | [id number] | | Removed | | Lauranc | | Syncope | | | | 07 | /07 | | /10 | e W | | | | | | (SNOMED | | | | Lila | | | | | | CT) | | | | MD | | | | +---------+---------+---------+---------+---------+---------+---------+---------+---------+ | GASTROP | [id number] | | Active | | Lauranc | | 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 | | | | Lila | | syndrom | | | | CT) | | | | MD | | e | | +---------+---------+---------+---------+---------+---------+---------+---------+---------+ | CONSTIP | [id number] | | Active | | Lauranc | | Chronic | | | ATION, | 09 | /08 | | /08 | e W | | | | | CHRONIC | (SNOMED | | | | Lila | | constip | | | | CT) | | | | MD | | ation | | +---------+---------+---------+---------+---------+---------+---------+---------+---------+ | POSTHER | [id number] | | Active | | Lauranc | | Posther | | | 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 | (SNOMED | | | | Lila | | neuralg | | | [place] | CT) | | | | MD | | ia | | +---------+---------+---------+---------+---------+---------+---------+---------+---------+ | DIZZINE | [id number] | | Removed | | Lauranc | | Dizzine | | | SS | 03 | /08 | | /08 | e W | | ss | | | | (SNOMED | | | | Lila | | | | | | CT) | | | | MD | | | | +---------+---------+---------+---------+---------+---------+---------+---------+---------+ | DEHYDRA | [id number] | | Removed | | Lauranc | | Dehydra | | | TION | 6 | /08 | | /08 | e W | | tion | | | | (SNOMED | | | | Lila | | | | | | CT) | | | | MD | | | | +---------+---------+---------+---------+---------+---------+---------+---------+---------+ | DIABETE | [id number] | | Removed | | Lauranc | [...] | | | +---------+---------+---------+---------+---------+---------+---------+---------+---------+ | HYPERTE | [id number] | | Active | | Lauranc | [...] Take one | | | PANTOPRAZO | [id number] | [facility] | | LE SODIUM | tablet by | | | LE SODIUM | 8 | Ankur DNP | | 40 MG TBEC | mouth once | | | | | BRUSH CLEANER | | | daily | | | | | | + + + + + + + + | NYSTATIN-T | Apply thin | | | NYSTATIN-T | [id number] | [facility] | | RIAMCINOLO | layer to | | | RIAMCINOLO | 5 | Ankur DNP | | NE | affected | | | NE | | BRUSH CLEANER | | [id number] | area BID | | | | | | | UNIT/GM-% | prn for | | | | | | | CREA | itching | | | | | | + + + + + + + + | LINZESS | Take one | | | LINACLOTID | [id number] | [facility] | | 145 MCG | tablet | | | E | 0 | Ankur DNP | | CAPS | daily for | | | | | BRUSH CLEANER | | | constipati | | | | | | | | on. | | | | | | + + + + + + + + | FUROSEMIDE | TAKE 1 | | | FUROSEMIDE | [id number] | [facility] | | 80 MG | TABLET BY | | | | 5 | Ankur DNP | | TABS | MOUTH ONCE | | | | | BRUSH CLEANER | | | DAILY IN | | | | | | | | THE | | | | | | | | MORNING | | | | | | + + + + + + + + | VOLTAREN 1 | apply 3-4 | | | DICLOFENAC | [id number] | Fredy | | % GEL | [...] TAKE 1 | | | CHOLECALCI | 7986973680 | [facility] | | 1000 UNIT | TABLET BY | | | FEROL | 0 | Ankur DNP | | TABS | MOUTH ONCE | | | | | BRUSH CLEANER | | | DAILY IN | | | | | | | | THE | | | | | | | | MORNING | | | | | | + + + + + + + + | ONETOUCH | Use to | | | BLOOD | 6069531813 | [facility] | | VERIO | test | | | GLUCOSE | 1 | Ankur DNP | | w/Device | glucose | | | MONITORING | | BRUSH CLEANER | | KIT | four times | [...] use with | | | BLOOD | 6546838143 | Edna | | PRIME | test [...] Use strip | | | GLUCOSE | 0553491128 | [facility] | | ULTRA BLUE | to checl | | | BLOOD | 0 | Ankur DNP | | STRP | glucose | | | | | BRUSH CLEANER | | | four times | | [...] | USE | | | INSULIN | 7660308890 | [facility] | | INSULIN | SYRINGE 4 | | | SYRINGE-NE | 2 | Ankur DNP | | SYRINGE | TIMES | | | EDLE U-100 | | BRUSH CLEANER | | 31G X | DAILYDx | | | | | | | 10/09" 0.5 | Code | | | | | | | ML | E11.40 | | | | | | + + + + + + + + | BD PEN | USE PEN | | | INSULIN | 5628907227 | [facility] | | NEEDLE | NEEDLE(S) | | | PEN NEEDLE | 9 | Ankur DNP | | SHORT U/F | 4 TIMES | | | | | BRUSH CLEANER | | 31G X 8 MM | DAILYDx | | | | | | | | Code | | | | | | | | E11.40 | | | | | | + + + + + + + + | ONETOUCH | Use strip | | | GLUCOSE | 1680274341 | [facility] | | VERIO STRP | to checl | | | BLOOD | 0 | Ankur DNP | | | glucose | | | | | BRUSH CLEANER | | | four times | | [...] Use to | | | GLUCOSE | 2376542959 | Edna | | BLOOD | check [...] Take one | | | IRBESARTAN | 6971569613 | [facility] | | 300 MG | tablet | | | | 3 | Ankur DNP | | TABS | daily | | | | | BRUSH CLEANER | + + + + + + + + | BD INSULIN | Use to | | | INSULIN | 6052009727 Thien Boggs | | SYRINGE | inject | | | SYRINGE-NE | 6 | Ankur DNP | | ULTRAFINE | insulin 5 | | | EDLE U-100 | | BRUSH CLEANER | | 29G X 05/28" | times per | | | | | | | 0.5 ML | day | | | | | | + + + + + + + + | RELION | Use to | | | GLUCOSE | 6036137696 Thien Boggs | | BLOOD | check | | | BLOOD | 4 | Ankur DNP | | GLUCOSE | blood | | | | | BRUSH CLEANER | | TEST STRP | sugars | [...] use with | | | BLOOD | 0151342899 | [facility] | | PRIME | test | | | GLUCOSE | 2 | Ankur DNP | | MONITOR | strips to | | | MONITORING | | BRUSH CLEANER | | DYLAN | test BG | | | SUPPL | | | | | daily | | | | | | + + + + + + + + | RELION | use when | | | GLUCOSE | 7314787027 | [facility] | | BLOOD | testing BG | | | BLOOD | 4 | Ankur DNP | | GLUCOSE | | | | | | BRUSH CLEANER | | TEST STRP | | | | | | | + + + + + + + + | BIOTIN 1 | Take one | | | BIOTIN | 1825044168 | Lorri | | MG CAPS | daily in | | | | 2 | Prabhakar | | | the AM | | | | | NCMA | + + + + + + + + | BASAGLAR | 68 Units | | | INSULIN | 5074394321 | [facility] | | KWIKPEN | every | | | GLARGINE | 9 | Ankur DNP | | 100 | morning | | | | | BRUSH CLEANER | | UNIT/ML | (34 units | | | | | | | SOPN | on each | | | | | | | | side) | | | | | | + + + + + + + + | BASAGLAR | 65 Units | | | INSULIN | 7158900196 | [facility] | | KWIKPEN | every | | | GLARGINE | 9 | Ankur DNP | | 100 | morning | | | | | BRUSH CLEANER | | UNIT/ML | | | | | | | | SOPN | | | | | | | + + + + + + + + | BASAGLAR | 60 Units | | | INSULIN | 8571936230 | [facility] | | KWIKPEN | every | | | GLARGINE | 9 | Ankur DNP | | 100 | morning | | | | | BRUSH CLEANER | | UNIT/ML | | | | | | | | SOPN | | | | | | | + + + + + + + + | RELION | Use daily | | | GLUCOSE | 6892999110 | [facility] | | BLOOD | to check | | | BLOOD | 4 | Ankur DNP | | GLUCOSE | blood | | | | | BRUSH CLEANER | | TEST STRP | sugar | | | | | | + + + + + + + + | DIABETIC | 1 pair per | | | DIABETIC | | [facility] | | ORTHOTIC | custom | | | ORTHOTIC | | Ankur DNP | | SHOES | fit from | | | SHOES | | BRUSH CLEANER | | | podiatry | | | | | | | | E11.65, | | | | | | | | e11.21 | | | | | | + + + + + + + + | DIABETIC | 1 pair per | | | FOOT CARE | 8508997983 | [facility] | | INSOLES | custom | | | PRODUCTS | 1 | Ankur DNP | | | fit from | | | | | BRUSH CLEANER | | | podiatry | | | | | | | | Dx. | | | | | | | | E11.65, | | | | | | | | e11.21 | | | | | | + + + + + + + + | BD INSULIN | Use 5 | | | INSULIN | 2918350726 | [facility] | | SYRINGE | times | | | SYRINGE-NE | 1 | Ankur DNP | | ULTRAFINE | daily to | | | EDLE U-100 | | BRUSH CLEANER | | 29G X /2" | inject [...] Use daily | | | INSULIN | 5100008120 | [facility] | | NEEDLE | to inject | | | PEN NEEDLE | 0 | Ankur DNP | | ULTRAFINE | insulin | | | | | BRUSH CLEANER | | 29G X | | | | | | | | 12.7MM | | | | | | | + + + + + + + + | RELION PEN | | | | INSULIN | 6490486042 | [facility] | | NEEDLES | | | | PEN NEEDLE | 4 | Ankur DNP | | 31G X 8 MM | | | | | | BRUSH CLEANER | + + + + + + + + | MISC | | | | MISC | | [facility] | | | | | | | | Ankur DNP | | | | | | | | BRUSH CLEANER | + + + + + + + + | NERVE | | | | NERVE | | [facility] | | PAIN | | | | PAIN | | Ankur DNP | | | | | | | | BRUSH CLEANER | + + + + + + + + | HEARTBU | | | | HEARTBU | | [facility] | | RN/NAUSEA* | | | | RN/NAUSEA* | | Ankur DNP | | | | | | | | BRUSH CLEANER | + + + + + + + + | STROKE | | | | STROKE | | [facility] | | PREVENTION | | | | PREVENTION | | Ankur DNP | | | | | | | | BRUSH CLEANER | + + + + + + + + | BLOOD | | | | BLOOD | | [facility] | | PRESSURE | | | | PRESSURE | | Ankur DNP | | * | | | | * | | BRUSH CLEANER | + + + + + + + + | DIABETE | | | | DIABETE | | [facility] | | S | | | | S | | Ankur DNP | | | | | | | | BRUSH CLEANER | + + + + + + + + | MIRALAX | 17 gm | | | POLYETHYLE | 0736469011 | [facility] | | POWD | daily | | | NE GLYCOL | 2 | Ankur DNP | | | stirred | | | 3350 | | BRUSH CLEANER | | | into 4-8 | | [...] 1 pill | | | DOCUSATE | [id number] | [facility] | | MG CAPS | twice | | | SODIUM | 0 | Ankur DNP | | | daily for | | | | | BRUSH CLEANER | | | soft | | | | | | | | stools | | | | | | + + + + + + + + | NOVOLOG | 12 Units | | | INSULIN | 6038332317 | [facility] | | 100 | before | | | ASPART | 1 | Ankur DNP | | UNIT/ML | meals | | | | | BRUSH CLEANER | | SOLN | SS:150-175 | | [...] 1 capsule | | | PREGABALIN | 1117076861 | [facility] | | MG CAPS | three | | | | 8 | Ankur DNP | | | times | | | | | BRUSH CLEANER | | | daily for | | | | | | | | neuropathy | | | | | | + + + + + + + + | LYRICA 100 | 1 tab | | | PREGABALIN | 4586018552 | [facility] | | MG CAPS | three | | | | 8 | Ankur DNP | | | times per | | | | | BRUSH CLEANER | | | day. Pt | | | | | | | | states as | | | | | | | | needed | | | | | | + + + + + + + + | PROCHLORPE | Insert one | | | PROCHLORPE | 8075913870 | [facility] | | RAZINE 25 | | | | RAZINE | 0 | Ankur DNP | | MG SUPP | suppositor | | | | | BRUSH CLEANER | | | y rectally | | | | | | | | every 24 | | | | | | | | hours as | | | | | | | | needed | | | | | | + + + + + + + + | VICTOZA 18 | .6 mg x 1 | | | LIRAGLUTID | 7731959623 | [facility] | | MG/3ML | week then | | | E | 2 | Ankur DNP | | SOPN | 1.2 mg | | | | | BRUSH CLEANER | | | daily per | | | | | | | | week | | | | | | + + + + + + + + | RELION PEN | | | | INSULIN | 2423410253 | David | | NEEDLES | | | | PEN NEEDLE | 4 | Rayyne DO | | 31G X 8 MM | | | | | | | + + + + + + + + | NOVOLOG | 3U before | | | INSULIN | 5136921950 | Scarlett | | 100 | lunch [...] 1 tid | | | PREGABALIN | 8535086801 | Christen Ramirez | | MG CAPS | | | | | 8 | [place] | | | | | | | | BRUSH CLEANER | + + + + + + + + | PROMETHAZI | Take one | | | PROMETHAZI | 5623710790 | Edna | | NE HCL 25 [...] Insert one | | | PROCHLORPE | 8440088542 | Edna | | RAZINE 25 | [...] Take one | | | CLONAZEPAM | 7903146594 | Edna | | 0.5 MG | tablet | | | | 1 | Charity [facility] | | TABS | every 24 | | | | | | | | hours as | | | | | | | | needed for | | | | | | | | anxiety | | | | | | + + + + + + + + | PANTOPRAZO | Take one | | | PANTOPRAZO | 7567057929 | [facility] | | LE SODIUM | tablet by | | | LE SODIUM | 8 | Ankur DNP | | 40 MG TBEC | mouth once | | | | | BRUSH CLEANER | | | daily | | | | | | + + + + + + + + | NITROFURAN | Take one | | | NITROFURAN | 1525710135 | Edna | | TOIN | capsule | | | TOIN | 1 | [facility] | | MONOHYD | every 12 | [...] .6 mg x 1 | | | ZION | 6187702777 | Christen Ramirez | | MG/3ML | week then | | | E | 2 | [place] | | SOPN | 1.2 mg | | | | | BRUSH CLEANER | | | daily per | | | | | | | | week | | | | | | + + + + + + + + | VICTOZA 18 | Inject 0.6 | | | LIRAGLUTID | 0585489092 | Christen Escudero. | | MG/3ML | mg daily | | | E | 2 | [place] | | SOPN | | | | | | BRUSH CLEANER | + + + + + + + + | DRAMAMINE | take 1-2 | | | DIMENHYDRI | 5860315524 | Christen Ramirez | | 50 MG TABS | tabs 4 | | | MARCELA | 2 | [place] | | | times per | | | | | BRUSH CLEANER | | | day as | | | | | | | | needed | | | | | | + + + + + + + + | NEURONTIN | take 1 tab | | | GABAPENTIN | 8050450776 | Christen Ramirez | | 300 MG | po tid . | | | | 4 | [place] | | CAPS | Pt states | | | | | BRUSH CLEANER | | | as needed | | | | | | + + + + + + + + | PIOGLITAZO | Take 1 tab | | | PIOGLITAZO | 2295775736 | Christen Ramirez | | NE HCL 15 | by mouth | | | NE HCL | 6 | [place] | | MG TABS | one time | | | | | BRUSH CLEANER | | | per day in | | | | | | | | the AM | | | | | | + + + + + + + + | NITROFURAN | Take one | | | NITROFURAN | 8818123462 | Edna | | TOIN | capsule [...] NITROFURAN | | | | NITROFURAN | 9001427751 | Edna | | TOIN | | [...] Take 1 | | | GLIPIZIDE | 7985064562 | [facility] | | XL 2.5 MG | tablet | | | | 1 | Ankur DNP | | [id number] | p.o. | | | | | BRUSH CLEANER | | | q.a.m. | | | | | | + + + + + + + + | NOVOLOG | 3U before | | | INSULIN | 4382098903 | David | | 100 | lunch [...] 3U before | | | INSULIN | 9880283480 | Christen J. | | 100 | lunch and | | | LISPRO | 1 | [place] | | UNIT/ML | 5U before | | | | | BRUSH CLEANER | | SOLN | Dinner | | [...] <150 - | | | INSULIN | 3771909883 | Christen Ramirez | | 100 | No insulin | | | LISPRO | 1 | [place] | | UNIT/ML | BS | | | (HUMAN) | | BRUSH CLEANER | | SOLN | 150-200 | | [...] Take as | | | EXENATIDE | 1310140506 | Christen Ramirez | | MCG PEN 5 | directed | | | | 1 | [place] | | MCG/0.02ML | once daily | | | | | BRUSH CLEANER | | SOPN | in the AM | | | | | | + + + + + + + + | BASAGLAR | 1 pen | | | INSULIN | 9695767785 | Christen Ramirez | | KWIKPEN | every 3 | | | GLARGINE | 9 | [place] | | 100 | days 56 | | | | | BRUSH CLEANER | | UNIT/ML | units q | | | | | | | SOPN | Day | | | | | | + + + + + + + + | BASAGLAR | 56 Units | | | INSULIN | 4819800127 | David | | KWIKPEN | every [...] Inject 0.6 | | | LIRAGLUTID | 8368665770 | Christen Ramirez | | MG/3ML | mg daily | | | E | 2 | [place] | | SOPN | | | | | | BRUSH CLEANER | + + + + + + + + | VICTOZA 18 | 5 unit AM | | | LIRAGLUTID | 5070227102 | Christen Ramirez | | MG/3ML | and 5 | | | E | 2 | [place] | | SOPN | units PM | | | | | BRUSH CLEANER | + + + + + + + + | BASAGLAR | 1 pen | | | INSULIN | 1864962174 | Christen Ramirez | | KWIKPEN | every 3 | | | GLARGINE | 9 | [place] | | 100 | days 56 | | | | | BRUSH CLEANER | | UNIT/ML | units q | | | | | | | SOPN | Day | | | | | | + + + + + + + + | MECLIZINE | One tab by | | | MECLIZINE | 6026039816 | [facility] | | HCL 25 MG | mouth | | | HCL | 0 | Ankur DNP | | TABS | three | | | | | BRUSH CLEANER | | | times per | | [...] 56 Units | | | INSULIN | 6441635950 | Christen Ramirez | | KWIKPEN | by mouth | | | GLARGINE | 9 | [place] | | 100 | every | | | | | BRUSH CLEANER | | UNIT/ML | morning | | | | | | | SOPN | | | | | | | + + + + + + + + | SUPREP | mix and | | | NA | 6542353331 | Maulik | | BOWEL PREP | [...] mix and | | | NA | 6061609248 | Emeka | | BOWEL PREP | [...] pill BID | | | DOCUSATE | [id number] | [facility] | | MG CAPS | | | | SODIUM | 0 | Ankur DNP | | | | | | | | BRUSH CLEANER | + + + + + + + + | RELION | Use daily | | | GLUCOSE | 2729493571 | Tiesha | | BLOOD | to [...] custom | | | ORTHOTIC | | [place] MD | | SHOES | fit from | | | SHOES | | | | | podiatry | | | | | | | | E11.65, | | | | | | | | e11.21 | | | | | | + + + + + + + + | DIABETIC | 1 pair per | | | FOOT CARE | 3509504961 | Tiesha | | INSOLES | custom [...] 1 pill | | | CEPHALEXIN | 9519311162 | Tiesha | | MG CAPS | twice a | | | | 1 | [place] MD | | | day for 7 | | | | | | | | days | | | | | | + + + + + + + + | BD INSULIN | Use 5 | | | INSULIN | 8778433757 | [facility] | | SYRINGE | times | | | SYRINGE-NE | 1 | Ankur DNP | | ULTRAFINE | daily to | | | EDLE U-100 | | BRUSH CLEANER | | 29G X /" | inject [...] 56 units | | | INSULIN | 4968709343 | Kaykay | | UNIT/ML | qAM | | | GLARGINE | 3 | Mora DO | | SOLN | | | | | | | + + + + + + + + | KEFLEX 500 | 1 pill | | | CEPHALEXIN | 3660807230 | Pako | | MG CAPS | twice a | | | | 1 | Middlekauf | | | day for 7 | | | | | f BRUSH CLEANER | | | days | | | | | | + + + + + + + + | LANTUS 100 | 50 units | | | INSULIN | 3536632444 | Pako | | UNIT/ML | once per | | | GLARGINE | 3 | Middlekauf | | SOLN | day. Pt | | | | | f BRUSH CLEANER | | | states she | | | | | | | | is taking | | | | | | | | 56 units | | | | | | | | every AM | | | | | | + + + + + + + + | BIOTIN 1 | Take one | | | BIOTIN | 6637474246 | [facility] | | MG CAPS | daily in | | | | 2 | Ankur DNP | | | the AM | | | | | BRUSH CLEANER | + + + + + + + + | VICTOZA 18 | | | | LIRAGLUTID | 1101417692 | Jesus | | MG/3ML | | | | E | 2 | Ethan MD | | SOPN | | | | | | | + + + + + + + + | BYETTA 5 | Take as | | | EXENATIDE | 1225813548 | Christen Ramirez | | MCG PEN 5 | directed | | | | 1 | [place] | | MCG/0.02ML | once daily | | | | | BRUSH CLEANER | | SOPN | in the AM | | | | | | + + + + + + + + | VITAMIN D | Take one | | | CHOLECALCI | 3565003521 | [facility] | | 1000 UNIT | tablet | | | FEROL | 1 | Ankur DNP | | TABS | daily in | | | | | BRUSH CLEANER | | | the AM | | | | | | + + + + + + + + | POTASSIUM | Take one | | | POTASSIUM | 9727277162 | [facility] | | CHLORIDE | cap daily | | | CHLORIDE | 1 | Ankur DNP | | ER 10 MEQ | in the AM | | | | | BRUSH CLEANER | | CR-CAPS | | | | | | | + + + + + + + + | NEURONTIN | take 1 tab | | | GABAPENTIN | 8903348540 | Jesus | | 300 MG | po tid . | | | | 4 | Ethan MD | | CAPS | Pt states | | | | | | | | as needed | | | | | | + + + + + + + + | LASIX 80 | 1 tab by | | | FUROSEMIDE | 0492079518 | [facility] | | MG TABS | mouth one | | | | 5 | Ankur DNP | | | time per | | | | | BRUSH CLEANER | | | day in the | | | | | | | | AM | | | | | | + + + + + + + + | LYRICA 100 | 1 tab | | | PREGABALIN | 8277551587 | Christen Ramirez | | MG CAPS | three | | | | 8 | [place] | | | times per | | | | | BRUSH CLEANER | | | day. Pt | | | | | | | | states as | | | | | | | | needed | | | | | | + + + + + + + + | OMEPRAZOLE | Take one | | | OMEPRAZOLE | 7065189590 | [facility] | | 40 MG | by mouth | | | | 0 | Ankur DNP | | CPDR | one time | | | | | BRUSH CLEANER | | | per day | | [...] tab by | | | CLOPIDOGRE | 3025069473 | [facility] | | MG TABS | mouth one | | | L | 1 | Ankur DNP | | | time per | | | BISULFATE | | BRUSH CLEANER | | | day in the | | | | | | | | evening | | | | | | + + + + + + + + | LIPITOR 20 | take 1 | | | ATORVASTAT | 6570046784 | [facility] | | MG TABS | tablet by | | | IN CALCIUM | 3 | Ankur DNP | | | mouth | | | | | BRUSH CLEANER | | | daily in | | | | | | | | the | | | | | | | | evening | | | | | | + + + + + + + + | VALSARTAN | Take one | | | VALSARTAN | 7643760071 | [facility] | | 160 MG | tablet | | | | 7 | Ankur DNP | | TABS | daily in | | | | | BRUSH CLEANER | | | the AM | | | | | | + + + + + + + + | PIOGLITAZO | Take 1 tab | | | PIOGLITAZO | 9396110931 | Jesus | | NE HCL 15 [...] 25 units | | | INSULIN | 4610598215 | Jesus | | UNIT/ML | two [...] 18 | | | | LIRAGLUTID | 4808319265 | Franciscoance W | | MG/3ML | | | | E | 2 | Lila MD | | SOPN | | | | | | | + + + + + + + + | BYETTA 5 | 0.02 ml | | | EXENATIDE | 0098927640 | Laurance W | | MCG PEN 5 | injection | | | | 1 | Lila MD | | MCG/0.02ML | two times | | | | | | | SOPN | per day | | | | | | + + + + + + + + | DRAMAMINE | take 1-2 | | | DIMENHYDRI | 3805431054 | Laurance W | | 50 MG [...] 1 | | | | BIOTIN | 2405206651 | Kali | | MG CAPS | | | | | 2 | Palacio DPM | + + + + + + + + | VITAMIN D | | | | CHOLECALCI | 3214919382 | Kali | | 1000 UNIT | | | | FEROL | 1 | Hakeem DICKEYM | | TABS | | | | | | | + + + + + + + + | POTASSIUM | | | | POTASSIUM | 8641173111 | Kali | | CHLORIDE | | | | CHLORIDE | 1 | Hakeem DICKEYM | | ER 10 MEQ | | | | | | | | CR-CAPS | | | | | | | + + + + + + + + | BUSPIRONE | 1 TAB | | | BUSPIRONE | 9520098431 | Kali | | HCL 7.5 MG | three | | | HCL | 1 | Hakeem DICKEYM | | TABS | times per | | | | | | | | day | | | | | | + + + + + + + + | COLACE 100 | 1 tab by | | | DOCUSATE | [id number] | Kali | | MG CAPS | mouth | | | SODIUM | 0 | Palacio DPM | | | daily at | | | | | | | | bedtime | | | | | | + + + + + + + + | RELION | Use to | | | GLUCOSE | [id number] | Kali | | BLOOD | test BG | | | BLOOD | 4 | Palacio DPM | | GLUCOSE | one time | | | | | | | TEST STRP | per day | | | | | | + + + + + + + + | ONDANSETRO | 1 tab | | | ONDANSETRO | [id number] | Kali | | N HCL 4 MG | every 4 | | | N HCL | 3 | Palacio DPM | | TABS | hours | | | | | | + + + + + + + + | CILOSTAZOL | 1 tab two | | | CILOSTAZOL | [id number] | Kali | | 100 MG | times per | | | | 1 | Palacio DPM | | TABS | day | | | | | | + + + + + + + + | LANTUS 100 | 25 units | | | INSULIN | [id number] | Laurance W | | UNIT/ML | two times | | | GLARGINE | 3 | Lila MD | | SOLN | per day | | | | | | + + + + + + + + | NEURONTIN | take 1 tab | | | GABAPENTIN | 5338740405 | Laurance W | | 300 MG [...] tab by | | | FUROSEMIDE | [id number] | Laurance W | | MG TABS | mouth one | | | | 5 | Lila MD | | | time per | | | | | | | | day | | | | | | + + + + + + + + | FUROSEMIDE | 1 tab one | | | FUROSEMIDE | [id number] | Laurance W | | 40 MG | time per | | | | 5 | Lila MD | | TABS | day | | | | | | + + + + + + + + | BUSPIRONE | 1 TAB | | | BUSPIRONE | [id number] | Laurance W | | HCL 7.5 MG | three | | | HCL | 1 | Lila MD | | TABS | times per | | | | | | | | day | | | | | | + + + + + + + + | COLACE 100 | 1 tab by | | | DOCUSATE | [id number] | Franciscoance W | | MG CAPS | mouth | | | SODIUM | 0 | Lila MD | | | daily at | | | | | | | | bedtime | | | | | | + + + + + + + + | LYRICA 100 | 1 tab | | | PREGABALIN | [id number] | Franciscoance W | | MG CAPS | three | | | | 8 | Lila MD | | | times per | | | | | | | | day | | | | | | + + + + + + + + | GABAPENTIN | Take 2 | | | GABAPENTIN | [id number] | Laurance W | | 300 MG [...] by mouth | | | TRIMETHOPR | [id number] | Laurance W | | 800-160 | twice a | | | IM-SULFAME | 1 | Lila MD | | MG TABS | day for 3 | | | THOXAZOLE | | | | | days | | | | | | + + + + + + + + | BACTRIM DS | 1 by mouth | | | TRIMETHOPR | 1048833572 | Laurance W | | 800-160 | [...] 1 tab | | | MECLIZINE | 0575372072 | Bailey W | | HCL 25 MG | three | | | HCL | 0 | Lila MD | | TABS | times per | | | | | | | | day | | | | | | + + + + + + + + | GLUCOPHAGE | 1 tab one | | | METFORMIN | 7653425020 | Bailey W | | XR 500 MG | time per | | | HCL | 3 | Lila MD | | GL60C-QMW | day | | | | | | + + + + + + + + | BD INSULIN | Use 5 | | | INSULIN | [id number] | Bailey W | | SYRINGE | [...] 1 tab | | | PREGABALIN | 9982076530 | Bailey W | | MG CAPS [...] Use daily | | | INSULIN | 6295972452 | Ambrose | | NEEDLE | to inject | | | PEN NEEDLE | 0 | Ankur DNP | | ULTRAFINE | insulin | | | | | BRUSH CLEANER | | 29G X | | | | | | | | 12.7MM | | | | | | | + + + + + + + + | PIOGLITAZO | Take 1 tab | | | PIOGLITAZO | 6981105933 | Bailey W | | NE HCL 15 | by mouth | | | NE HCL | 6 | Lila MD | | MG TABS | one time | | | | | | | | per day | | | | | | + + + + + + + + | FLUCONAZOL | take one | | | FLUCONAZOL | 8453397839 | Bailey W | | E 150 MG | tablet PO | | | E | 1 | Lila MD | | TABS | x 1 repeat | | | | | | | | in 3 days | | | | | | + + + + + + + + | LYRICA 50 | TAKE ONE | | | PREGABALIN | 2141438784 | Kesha | | MG CAPS | [...] Take 2 | | | GABAPENTIN | 6177013269 | Laurance W | | 300 MG [...] 0.02 ml | | | EXENATIDE | 5686901209 | Laurance W | | MCG PEN 5 | injection | | | | 1 | Lila MD | | MCG/0.02ML | two times | | | | | | | SOPN | per day | | | | | | + + + + + + + + | BYETTA 5 | 0.2 ml | | | EXENATIDE | 7768764850 | Laurance W | | MCG PEN 5 | injection | | | | 1 | Lila MD | | MCG/0.02ML | two times | | | | | | | SOPN | per day | | | | | | + + + + + + + + | LYRICA 50 | TAKE ONE | | | PREGABALIN | 5690890096 | Laurance W | | MG CAPS [...] 1 tab | | | MECLIZINE | 8013801708 | Laurance W | | HCL 25 MG | three | | | HCL | 0 | Lila MD | | TABS | times per | | | | | | | | day | | | | | | + + + + + + + + | CILOSTAZOL | 1 tab two | | | CILOSTAZOL | [id number] | Laurance W | | 100 MG | times per | | | | 1 | Lila MD | | TABS | day | | | | | | + + + + + + + + | ONDANSETRO | 1 tab | | | ONDANSETRO | [id number] | Laurance W | | N HCL 4 MG | every 4 | | | N HCL | 3 | Lila MD | | TABS | hours | | | | | | + + + + + + + + | LYRICA 50 | 1 tab | | | PREGABALIN | [id number] | Laurance W | | MG CAPS | three | | | | 8 | Lila MD | | | times per | | | | | | | | day | | | | | | + + + + + + + + | KEFLEX 500 | one po TID | | | CEPHALEXIN | [id number] | Susanna | | MG CAPS | | | | | 1 | Gianfranco LUIS | + + + + + + + + | NYSTATIN-T | Apply thin | | | NYSTATIN-T | [id number] | Ambrose | | RIAMCINOLO | layer to | | | RIAMCINOLO | 5 | Ankur DNP | | NE | affected | | | NE | | BRUSH CLEANER | | [phone] | area BID | | | | | | | UNIT/GM-% | prn for | | | | | | | CREA | itching | | | | | | + + + + + + + + | FLUCONAZOL | take one | | | FLUCONAZOL | [id number] | Susanna | | E 150 MG | tablet PO | | | E | 1 | Medel MD | | TABS | x 1 repeat | | | | | | | | in 3 days | | | | | | + + + + + + + + | ASPIRIN | take 1 | | | ASPIRIN | [id number] | Laurance W | | 325 MG [...] tab by | | | CLOPIDOGRE | [id number] | Franciscoance W | | MG TABS | mouth one | | | L | 1 | Lila MD | | | time per | | | BISULFATE | | | | | day | | | | | | + + + + + + + + | LYRICA 50 | 1 tab | | | PREGABALIN | 5081501253 | Bailey W | | MG CAPS | three | | | | 8 | Lila MD | | | times per | | | | | | | | day | | | | | | + + + + + + + + | GLUCOPHAGE | 1 tab one | | | METFORMIN | 3311389849 | Laurance W | | XR 500 MG | time per | | | HCL | 3 | Lila MD | | [id number] | day | | | | | | + + + + + + + + | MECLIZINE | One tab by | | | MECLIZINE | 5408343244 | Franciscoance W | | HCL 25 [...] 10ml's two | | | METFORMIN | 2489118746 | Laurance W | | MG/5ML | [...] Take 2 | | | GABAPENTIN | 3605782627 | Laurance W | | 300 MG [...] TAB one | | | VALSARTAN | 6554811887 | Laurance W | | 160 MG | time per | | | | 8 | Lila MD | | TABS | day | | | | | | + + + + + + + + | DULOXETINE | 1 tab one | | | DULOXETINE | 0153494383 | Laurance W | | HCL 30 MG | time per | | | HCL | 6 | Lila MD | | CPEP | day | | | | | | + + + + + + + + | GABAPENTIN | take 2 | | | GABAPENTIN | 5524673044 | Laurance W | | 300 MG [...] tab one | | | DULOXETINE | 8409716059 | Laurance W | | HCL 30 MG | time per | | | HCL | 6 | Lila MD | | CPEP | day | | | | | | + + + + + + + + | VICTOZA 18 | 1.2 mg | | | LIRAGLUTID | 6309715729 | Laurance W | | MG/3ML | injected | | | E | 2 | Lila MD | | SOPN | martin | | | | | | + + + + + + + + | DIOVAN 320 | 1 TAB one | | | VALSARTAN | 4583007378 | Laurance W | | MG TABS | time per | | | | 4 | Lila MD | | | day | | | | | | + + + + + + + + | MECLIZINE | One tab by | | | MECLIZINE | 3084841502 | Laurance W | | HCL 25 [...] one time | | | VALSARTAN | 2125675563 | Mariano | | MG TABS | per day | | | | 4 | Ariella | | | | | | | | CCMA | + + + + + + + + | GABAPENTIN | take 2 | | | GABAPENTIN | 4048924650 | Mariano | | 300 MG | [...] Take one | | | OMEPRAZOLE | 3851809588 | Bailey W | | 40 MG [...] bid | | | CIPRO | | Franciscoance W | | | unknown | | | | | Lila MD | | | strength | | | | | | + + + + + + + + | GABAPENTIN | take 2 | | | GABAPENTIN | 2262281691 | Franciscoance W | | 300 MG [...] two times | | | MECLIZINE | 6269780234 | Bailey W | | HCL 25 MG | per day | | | HCL | 0 | Lila MD | | TABS | | | | | | | + + + + + + + + | DIOVAN 320 | 1 tab one | | | VALSARTAN | 9418249608 | Bailey W | | MG TABS | time per | | | | 4 | Lila MD | | | day | | | | | | + + + + + + + + | VICTOZA 18 | 0.6 mg | | | LIRAGLUTID | 0934511724 | Laurance W | | MG/3ML | [...] take 1 | | | ASPIRIN | 6799525452 | Rogers | | 325 MG | [...] tab one | | | SITAGLIPTI | 7249701897 | Laurance W | | 100 MG | time per | | | N | 2 | Lila MD | | TABS | day | | | PHOSPHATE | | | + + + + + + + + | DIOVAN 160 | 1 by mouth | | | VALSARTAN | 3941117735 | Laurance W | | MG TABS | every day | | | | 4 | Lila MD | + + + + + + + + | GABAPENTIN | 2 tabs two | | | GABAPENTIN | 6163908817 | Laurance W | | 300 MG | times per | | | | 5 | Lila MD | | CAPS | day | | | | | | + + + + + + + + | LANTUS 100 | 56 units | | | INSULIN | 6871639310 | Laurance W | | UNIT/ML | in the | | | GLARGINE | 3 | Lila MD | | SOLN | morning | | | | | | + + + + + + + + | RIOMET 500 | 10ml's two | | | METFORMIN | 8355221968 | Laurance W | | MG/5ML | [...] tab at | | | GABAPENTIN | 5631760772 | Laurance W | | 100 MG [...] 28 units | | | INSULIN | 8726627040 | Laurance W | | UNIT/ML | two times | | | GLARGINE | 3 | Lila MD | | SOLN | per day | | | | | | + + + + + + + + | LISINOPRIL | take 1 | | | LISINOPRIL | 5844146140 | Rogers | | 20 MG | tablet by | | | | 1 | Laith MD | | TABS | mouth | | | | | | | | daily | | | | | | + + + + + + + + | MECLIZINE | two times | | | MECLIZINE | 0403754015 | Mariano | | HCL 25 MG | per day | | | HCL | 0 | Ariella | | TABS | | | | | | CCMA | + + + + + + + + | ERGOCALCIF | One | | | ERGOCALCIF | 4697378660 | Mariano | | QUANG 25495 | capsule by | | | QUANG [...] two times | | | GABAPENTIN | 4257982330 | Mariano | | 100 MG | per day | | | | 1 | Ariella | | CAPS | | | | | | CCMA | + + + + + + + + | METFORMIN | two times | | | METFORMIN | 1212867590 | Mariano | | HCL 1000 | per day | | | HCL | 5 | Ariella | | MG TABS | | | | | | CCMA | + + + + + + + + | RIOMET 500 | 10ml QAM | | | METFORMIN | 5857699462 | Mariano | | MG/5ML | Liquid due | | | HCL | 1 | Ariella | | SOLN | to | | | | | CCMA | | | Dysphagia | | | | | | + + + + + + + + | ASPIRIN EC | take 1 | | | ASPIRIN | 4803361113 | Mariano | | 325 MG | tablet | | | | 1 | Ariella | | TBEC | daily | | | | | CCMA | + + + + + + + + | ASPIRIN 81 | one time | | | ASPIRIN | 8631320329 | Mariano | | MG ORAL | per day | | | | 5 | Ariella | | TABLET | | | | | | CCMA | + + + + + + + + | GABAPENTIN | 1 by mouth | | | GABAPENTIN | 2064842961 | Bailey W | | 100 MG [...] take 1 | | | ATORVASTAT | 2266742102 | Bailey W | | MG TABS | tablet by | | | IN CALCIUM | 3 | Lila MD | | | mouth | | | | | | | | daily | | | | | | + + + + + + + + | ASPIRIN EC | take 1 | | | ASPIRIN | 9024399627 | Rogers | | 325 MG | tablet | | | | 1 | Laith MD | | TBEC | daily | | | | | | + + + + + + + + | RELION | Use to | | | GLUCOSE | 1493478008 | Bailey W | | BLOOD | test BG | | | BLOOD | 4 | Lila MD | | GLUCOSE | one time | | | | | | | TEST STRP | per day | | | | | | + + + + + + + + | RIOMET 500 | 10ml QAM | | | METFORMIN | 5786144498 | Laurance W | | MG/5ML | Liquid due | | | HCL | 1 | Lila MD | | SOLN | to | | | | | | | | Dysphagia | | | | | | + + + + + + + + | ERGOCALCIF | One | | | ERGOCALCIF | 6520454263 | Laurance W | | QUANG 33026 | capsule by | | | QUANG [...] one tablet | | | DOCUSATE | 3970745102 | Laurance W | | MG CAPS | by mouth | | | SODIUM | 0 | Lila MD | | | at bedtime | | | | | | + + + + + + + + | GABAPENTIN | one tablet | | | GABAPENTIN | 2377162621 | Laurance W | | 100 MG [...] by mouth | | | MECLIZINE | 3727200910 | Laurance W | | HCL 25 [...] by mouth | | | LISINOPRIL | 0601010948 | Laurance W | | 5 MG TABS | one time | | | | 1 | Lila MD | | | per day | | | | | | + + + + + + + + | COLACE 100 | one tablet | | | DOCUSATE | 4668796372 | Laurance W | | MG CAPS | by mouth | | | SODIUM | 0 | Lila MD | | | at bedtime | | | | | | + + + + + + + + | MECLIZINE | 1 by mouth | | | MECLIZINE | 9294507225 | Laurance W | | HCL 25 [...] one tablet | | | GABAPENTIN | 9452293843 | Laurance W | | 100 MG [...] one tablet | | | METFORMIN | 7711341897 | Bailey W | | HCL 1000 | by mouth | | | HCL | 5 | Lila MD | | MG TABS | twice a | | | | | | | | day | | | | | | + + + + + + + + | ASPIRIN 81 | 1 by mouth | | | ASPIRIN | 8651720033 | Bailey W | | MG ORAL | every day | | | | 5 | Lila MD | | TABLET | | | | | | | + + + + + + + + | HUMALOG | BS <150 - | | | INSULIN | 9393850796 | Tiesha | | 100 | No [...] 56 units | | | INSULIN | 6969932637 | Laurance W | | UNIT/ML | [...] | | | | | | | BRUSH CLEANER | + + + + + + [...] | | Moderate | No Longer | Franciscoance W | | | | | | Active | Lila MD | + + + + + + + | LISINOPRIL | cough | | Moderate | | Laurance W | | | | | | | Lila MD | + + + + + + + | GABAPENTIN | Vertigo | | Moderate | No Longer | Franciscoance W | | | | | | [...] + + | Office Visit: Diabetic Foot [facility] | + + + + +-----+-------+---+---+ [...] +---+ + + + | Office Visit: Hospital f/u, DM | + + + + + +---+---+---+ + | | PH URINE | 5.0 | | | | pH, urine, | | | | | | | | | | | | | | | | semiquanti | | | | | | | | tative | + + + +---+---+---+ + | | SPEC GR | 1.025 | | | | specific | | | URIN | | | | | gravity, | | | | | | | | urine | + + + +---+---+---+ + | | APPEARANCE | clear | | | | appearance | | | U | | | | | , urine | + + + +---+---+---+ + | | UA COLOR | yellow | | | | urine | | | | | | | | color | + + + +---+---+---+ + | | GLUCOSE, | negative | | | | glucose, | | | URN | | | | | urine, | | | | | | | | semiquanti | | | | | | | | tative | + + + +---+---+---+ + | | BILIRUBIN | negative | [...] + +---+---+---+ + | | NITRITE | negative | | | | nitrite, | | | URN | | | | | urine, | | | | | | | | semiquanti | | | | | | | | tative | + + + +---+---+---+ + | | WBC DIPSTK | 1+ | | | | leukocyte | | | U | | | | | esterase, | | | | | | | | urine, by | | | | | | | | dipstick | + + + +---+---+---+ + + [...] DPM, [address] | | | | [facility] [address], | | | | [place], [address], | | | | | + + + + | Appointment | 02:15 PM | Ambrose Pascual DNP BRUSH CLEANER, [address] | | | | [facility] [address], | | | | [place], [address], | | | | | + + + + | Referral | | Orthopedic Consult | | | | Jae Osullivan | | | | Surg, [address] , | | | | [place], [address] | | | | | + + + + | Referral | | Ophthalmology Consult | | | | Huong Rose, | | | | [address], | | | | [place] | | | | | + + + + | Referral | | Physical Therapy Evaluation | | | | [facility], [address] | | | | [address], [address] | | | [address], [place], [address] | | | | | | | | | + + + + | Referral | | Physical Therapy Evaluation | | | | [facility], [address] | | | | [address], [address] | | | | [address], [place], [address] | | | | | | | | | + + + + | Referral | | Podiatry Consult | | | | Hector Armendariz, | | | | [address] | | | | [address], [place], [place], | | | | [address] | | | | | + + + + | Referral | | Podiatry Consult | | | | Hector Armendariz, | | | | [address] | | | | [address], [place], [place], | | | | [address] | | | | | + + + + | Referral | | Ophthalmology Consult | | | | Huong Rose, | | | | [address], [place], | | | | [place], [address] | | | | | + + + + | Referral | | Nephrology Evaluation | | | | Larry Galo, | | | | [address], | | | | [address], [place], [address] | | | | | | | | | + + + + | Referral | | Nephrology Evaluation | | | | Larry Galo, | | | | [address], | | | | [address], [place], [address] | | | | | | | | | + + + + | Referral | | Ophthalmology Consult | | | | Huong Rose, | | | | [address], | | | | [place], [address] | | | | | + + + + | Referral | | [facility] Head-[facility] Con | | | | Dian Atkins, [address] | | | [address], | | | | [place], [address] | | | | | + + + + +---+ + | | Referral excluded from report: | +---+ + + + + + | Referral | | [facility] Head[facility] Con | | | | Dian Atkins, [address] | | | | [address], | | | | [place], [address] | | | | | + + [...] | + + + + + | [id number] | Overweight | | | + + + + + | [id number] | Overweight | | | + + + + + | CPT-17089 | Glucose by monitor | | | + + + + + | [id number] | Overweight | | | + + + + + | CPT-32573 | DAISY Finney | | | + + + + + | CPT-37512 66902 | XR Knee WgtB Bilat | | | | | AP W 1-2V-Rt | | | + + + + + | [id number] | Overweight | | | + + + + + | CPT-96311 | Adm 1st Inj No | | | | | counseling or >18 | | | + + + + + | CPT-71869 | Prevnar 13 | | | | | (Pneumococcal >7 | | | + + + + + | [id number] | Overweight | | | + + + + + | CPT-72688 | Glucose by monitor | | | + + + + + | [id number] | Overweight | | | + + + + + | [id number] | Overweight | | | + + + + + | [id number] | Overweight | | | + + + + + | CPT-25033 | IV infusion -1st hr | | | | | (Rehydration) | | | + + + + + | CPT-74512 | Glucose by monitor | | | + + + + + | CPT-16959 | UA Dipstick | | | + + + + + | CPT-94635 | UA Dipstick | | | + + + + + | CPT-34744 | Initial Psych | | | | | Evaluation | | | + + + + + +---+ + | | Order excluded from report: | +---+ + + + + + + | VIT D HYDR 12354 | Vit D, 25 hydroxy | | [...]
--- OUTSIDE RECORDS SUMMARY | ~2019-03-25 | XMS | Clinical Summary ---
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 | | pain | | | | (SNOMED | | | | [place] | | | | | | CT) | | | | ta LINE SERVICE PERSON | | | | +---------+---------+---------+---------+---------+---------+---------+---------+---------+ | DIABETE | [id number] | | Active | | David W | | Diabeti | | | S | [id number] | /11 | | /12 | Theen [...] s | | +---------+---------+---------+---------+---------+---------+---------+---------+---------+ | MILD | [id number] | | Active | | Maulik | [...] uterus | | +---------+---------+---------+---------+---------+---------+---------+---------+---------+ | COLONIC | [id number] | | Active | | Emeka | [...] | | | +---------+---------+---------+---------+---------+---------+---------+---------+---------+ | CONSTIP | [id number] | | Active | | Emeka | | Constip | | | ATION | 8 | /13 | | /13 | Petre | | ation | | | | (SNOMED | | | | MD | | | | | | CT) | | | | | | | | +---------+---------+---------+---------+---------+---------+---------+---------+---------+ | CHANGE | [id number] | | Active | | Emeka | | Altered | | | IN | 9 | /13 | | /13 | Petre | | bowel | | | BOWEL | (SNOMED | | | | MD | | functio | | | HABITS | CT) | | | | | | n | | +---------+---------+---------+---------+---------+---------+---------+---------+---------+ | DECREAS | 6603011 | | Active | | Emeka | | Decreas | | | ED | 6 | / | | /13 | Petre | | e in | | | APPETIT | (SNOMED | | | | MD | | appetit | | | E | CT) | | | | | | e | | +---------+---------+---------+---------+---------+---------+---------+---------+---------+ | WEIGHT | [id number] | | Active | | Emeka | | Abnorma | | | LOSS | 01 | | | | Petre | | l | | | ABNORMA | (SNOMED | | | | MD | | weight | | | L | CT) | | | | | | loss | | +---------+---------+---------+---------+---------+---------+---------+---------+---------+ | NAUSEA | 7856583 | | Active | | Emeka | | Nausea | | | ALONE | 07 | /13 | | /13 | Petre | | | | | | (SNOMED | | | | MD | | | | | | CT) | | | | | | | | +---------+---------+---------+---------+---------+---------+---------+---------+---------+ | RECTAL | 3782779 | | Active | | Emeka | | Rectal | | | BLEEDIN | 2 | /13 | | /13 | Petre | | hemorrh | | | G | (SNOMED | | | | MD | | age | | | | CT) | | | | | | | | +---------+---------+---------+---------+---------+---------+---------+---------+---------+ | DEMENTI | 0160392 | | Active | | Christen | | Dementi | | | A | 6 | /10 | | /10 | J. | | a | | | WITHOUT | (SNOMED | | | | [place] | | | | | | CT) | | | | ta LINE SERVICE PERSON | | | | | BEHAVIO | | | | | | | | | | RAL | | | | | | | | | | DISTURB | | | | | | | | | | ANCE | | | | | | | | | +---------+---------+---------+---------+---------+---------+---------+---------+---------+ | CHRONIC | 7125959 | | Active | | Christen | | Chronic | | | | 03 | /10 | | /10 | J. | | | | | PROGRES | (SNOMED | | | | [place] | | progres | | | SIVE | CT) | | | | ta LINE SERVICE PERSON | | sive | | | RENAL | | | | | | | renal | | | FAILURE | | | | | | | failure | | +---------+---------+---------+---------+---------+---------+---------+---------+---------+ | ANEMIA | [id number] | | Active | | Christen | | Anemia | | | | 00 | /10 | | /10 | J. | | | | | | (SNOMED | | | | [place] | | | | | | CT) | | | | ta LINE SERVICE PERSON | | | | +---------+---------+---------+---------+---------+---------+---------+---------+---------+ | DEMENTI | 1114049 | | Active | | Christen | | Procedu | | | A | | / | | | J. | | re | | | SCREENI | (SNOMED | | | | [place] | | carried | | | NG | CT) | | | | ta LINE SERVICE PERSON | | out on | | | | | | | | | | | | | | | | | | | | subject | | +---------+---------+---------+---------+---------+---------+---------+---------+---------+ | FALL | [id number] | | Active | | Christen | | At risk | | | RISK | | / | | | J. | | for | | | | (SNOMED | | | | [place] | | falls | | | | CT) | | | | ta LINE SERVICE PERSON | | | | +---------+---------+---------+---------+---------+---------+---------+---------+---------+ | DIABETE | 7124930 | | Resolve | | Christen | | Diabeti | | | S | 925753 | /14 | d | / | J. | | c | | | MELLITU | (SNOMED | | | | [place] | | periphe | | | S, TYPE | CT) | | | | ta LINE SERVICE PERSON | | ral | | | II [...] s | | +---------+---------+---------+---------+---------+---------+---------+---------+---------+ | CORNS | [id number] | | Inactiv | | Kali | | Corns | | | AND | 00 | | e | | Palacio | | and | | | CALLOSI | (SNOMED | | | | DPM | | callus | | | TIES | CT) | | | | | | | | +---------+---------+---------+---------+---------+---------+---------+---------+---------+ | HAMMER | 5087930 | | Active | | Kali | [...] | | | +---------+---------+---------+---------+---------+---------+---------+---------+---------+ | HALLUX | 9082943 | | Active | | Kali | [...] ropathy | | +---------+---------+---------+---------+---------+---------+---------+---------+---------+ | DIABETE | 2264627 | | Active | | Kali | [...] s | | +---------+---------+---------+---------+---------+---------+---------+---------+---------+ | ONYCHOM | 7939897 | | Active | | Kali | | Onychom | | | YCOSIS | | | | | Hakeem | | ycosis | | | | (SNOMED | | | | DPM | | | | | | CT) | | | | | | | | +---------+---------+---------+---------+---------+---------+---------+---------+---------+ | HEARTBU | 0743661 | | Active | | Tiesha | | Heartbu | | | RN | 0 | /19 | | /19 | | | rn | | | | (SNOMED | | | | [place] | | | | | | CT) | | | | MD | | | | +---------+---------+---------+---------+---------+---------+---------+---------+---------+ | TYPE 2 | 5673196 | | Active | | Tiesha | [...] athy | | +---------+---------+---------+---------+---------+---------+---------+---------+---------+ | UTI | 4279295 | | Active | | Pako | | Urinary | | | | 5 | /13 | | /13 | Middlek | | tract | | | | (SNOMED | | | | auff | | infecti | | | | CT) | | | | LINE SERVICE PERSON | | ous | | | | | | | | | | disease | | +---------+---------+---------+---------+---------+---------+---------+---------+---------+ | LOCALIZ | 1518712 | | Active | | [place] | [...] | | | +---------+---------+---------+---------+---------+---------+---------+---------+---------+ | LIPOMA | 7056788 | | Active | | Lauranc | | Lipoma | | | | 2 | /14 | | /14 | e W | | (clinic | | | | (SNOMED | | | | Lila | | al) | | | | CT) | | | | MD | | | | +---------+---------+---------+---------+---------+---------+---------+---------+---------+ | VITAMIN | 2585482 | | Active | | David Paez | | Vitamin | | | D | 6 | /14 | | /15 | Theen | | D | | | DEFICIE | (SNOMED | | | | MD FACE | | deficie | | | NCY | CT) | | | | FACP | | ncy | | +---------+---------+---------+---------+---------+---------+---------+---------+---------+ | OBESITY | 3522265 | | Active | | aDvid Paez | | Obesity | | | , BMI | 01 | /14 | | /15 | Theen | | | | | 35-39.9 | (SNOMED | | | | MD FACE | | | | | , ADULT | CT) | | | | FACP | | | | +---------+---------+---------+---------+---------+---------+---------+---------+---------+ | DIABETE | 4752057 | | Removed | | David W | | Diabeti | | | S | 107133 | /14 | | /15 | Theen [...] s | | +---------+---------+---------+---------+---------+---------+---------+---------+---------+ | HALLUX | 2335007 | | Inactiv | | Kali | [...] | | | +---------+---------+---------+---------+---------+---------+---------+---------+---------+ | HAMMER | 8617109 | | Inactiv | | Kali | [...] | | | +---------+---------+---------+---------+---------+---------+---------+---------+---------+ | ONYCHOM | 8182124 | | Inactiv | | Kali | [...] | | | ROPATHY | (ICD-10 | e | / | Palacio | [...] ropathy | | +---------+---------+---------+---------+---------+---------+---------+---------+---------+ | DIABETE | 4325851 | | Inactiv | | Kali | [...] s | | +---------+---------+---------+---------+---------+---------+---------+---------+---------+ | SCREENI | 6390601 | | Resolve | | Lauranc | | Depress | | | NG FOR | 06 | /10 | d | /10 | e W | | ion | | | DEPRESS | (SNOMED | | | | Lila | | screeni | | | ION | CT) | | | | MD | | ng | | +---------+---------+---------+---------+---------+---------+---------+---------+---------+ | SCREENI | 8534981 | | Resolve | | Lauranc | [...] | | | +---------+---------+---------+---------+---------+---------+---------+---------+---------+ | SCREENI | 2848349 | | Resolve | | Lauranc | [...] ng | | +---------+---------+---------+---------+---------+---------+---------+---------+---------+ | SCREENI | 8898381 | | Removed | | Geetha | [...] ng | | +---------+---------+---------+---------+---------+---------+---------+---------+---------+ | SCREENI | 9852934 | | Removed | | Geetha | [...] | | | +---------+---------+---------+---------+---------+---------+---------+---------+---------+ | SCREENI | 2916856 | | Removed | | Geetha | | Depress | | | NG FOR | 06 | /10 | | /10 | Revere | | ion | | | DEPRESS | (SNOMED | | | | [facility] | | screeni | | | ION | CT) | | | | | | ng | | +---------+---------+---------+---------+---------+---------+---------+---------+---------+ | RENAL | 8284035 | | Active | | Lauranc | [...] e | | +---------+---------+---------+---------+---------+---------+---------+---------+---------+ | EDEMA | 1989527 | | Active | | Lauranc | | Edema | | | | 08 | /15 | | /11 | e W | | | | | | (SNOMED | | | | Lila | | | | | | CT) | | | | MD | | | | +---------+---------+---------+---------+---------+---------+---------+---------+---------+ | RENAL | 7131133 | | Active | | Luz | [...] e | | +---------+---------+---------+---------+---------+---------+---------+---------+---------+ | PERIPHE | 0389315 | | Active | | Lauranc | | Periphe | | | RAL | | / | | | e W | | ral | | | VASCULA | (SNOMED | | | | Lila | | vascula | | | R | CT) | | | | MD | | r | | | DISEASE | | | | | | | disease | | +---------+---------+---------+---------+---------+---------+---------+---------+---------+ | CANDIDI | 4893906 | | Active | | Susanna | | Candidi | | | ASIS, | | | | | Medel | | asis of | | | SKIN | (SNOMED | | | | MD | | skin | | | | CT) | | | | | | | | +---------+---------+---------+---------+---------+---------+---------+---------+---------+ | DYSURIA | 8993537 | | Active | | Erica | | Dysuria | | | | 1 | /31 | | /31 | Paul | | | | | | (SNOMED | | | | MA | | | | | | CT) | | | | | | | | +---------+---------+---------+---------+---------+---------+---------+---------+---------+ | VAGINIT | 8587435 | | Active | | Erica | | Vaginit | | | IS | 1 | /31 | | /31 | Paul | | is | | | | (SNOMED | | | | MA | | | | | | CT) | | | | | | | | +---------+---------+---------+---------+---------+---------+---------+---------+---------+ | RLQ | 2842715 | | Resolve | | Lauranc | | Right | | | PAIN | 02 | | d | /11 | e W | | lower | | | | (SNOMED | | | | Lila | | quadran | | | | CT) | | | | MD | | t pain | | +---------+---------+---------+---------+---------+---------+---------+---------+---------+ | ABDOMIN | 7613226 | | Resolve | | Lauranc | [...] | | | +---------+---------+---------+---------+---------+---------+---------+---------+---------+ | KNEE | 8372645 | | Active | | Lauranc | | Knee | | | PAIN | 3 | /14 | | /14 | e W | | pain | | | | (SNOMED | | | | Lila | | | | | | CT) | | | | MD | | | | +---------+---------+---------+---------+---------+---------+---------+---------+---------+ | Questio | 1691340 | | Correct | | Lauranc | [...] e | | +---------+---------+---------+---------+---------+---------+---------+---------+---------+ | VERTIGO | 7595701 | | Active | | Luz | | Vertigo | | | | 01 | / | | /03 | Asad | | | | | | (SNOMED | | | | RN | | | | | | CT) | | | | | | | | +---------+---------+---------+---------+---------+---------+---------+---------+---------+ | CHEST | 6750712 | | Inactiv | | Genny | | Chest | | | PAIN | 9 | | e | /02 | Kaufman | | pain | | | | (SNOMED | | | | | | | | | | CT) | | | | | | | | +---------+---------+---------+---------+---------+---------+---------+---------+---------+ | CHEST | 3397611 | | Inactiv | | Lauranc | [...] fied | | +---------+---------+---------+---------+---------+---------+---------+---------+---------+ | CEREBRO | 7054970 | | Active | | Rogers | | 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 | (SNOMED | | | | MD | | r | | | DISEASE | CT) | | | | | | disease | | +---------+---------+---------+---------+---------+---------+---------+---------+---------+ | History | 7762143 | | Active | | Rogers | [...] | | | +---------+---------+---------+---------+---------+---------+---------+---------+---------+ | DIABETI | 4945643 | | Active | | Rogers | [...] thy | | +---------+---------+---------+---------+---------+---------+---------+---------+---------+ | HYPERLI | 3436867 | | Active | | Rogers | | Hyperli | | | PIDEMIA | | | | | Laith | | pidemia | | | | (SNOMED | | | | MD | | | | | | CT) | | | | | | | | +---------+---------+---------+---------+---------+---------+---------+---------+---------+ | History | 0893117 | | Active | | Rogers | [...] e | | +---------+---------+---------+---------+---------+---------+---------+---------+---------+ | CEREBRA | 9136524 | | Correct | | Rogers | [...] s | | +---------+---------+---------+---------+---------+---------+---------+---------+---------+ | ABDOMIN | 6934677 | | Removed | | Patricia | [...] | | | +---------+---------+---------+---------+---------+---------+---------+---------+---------+ | RLQ | 5590079 | | Removed | | Patricia | [...] fied | | +---------+---------+---------+---------+---------+---------+---------+---------+---------+ | CARPAL | 2976515 | | Active | | Rogers | | Carpal | | | TUNNEL | 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 | | | | MD | | 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, LEFT | CT) | | | | | | e | | +---------+---------+---------+---------+---------+---------+---------+---------+---------+ | Questio | 7727513 | | Removed | | Rogers | [...] | | | +---------+---------+---------+---------+---------+---------+---------+---------+---------+ | GAIT | 4527021 | | Active | | Rogers | | Abnorma | | | IMBALAN | 2 | / | | / | Laith | | l gait | | | CE | (SNOMED | | | | MD | | | | | | CT) | | | | | | | | +---------+---------+---------+---------+---------+---------+---------+---------+---------+ | BRAIN | 6908330 | | Correct | | Rogers | | Brainst | | | STEM | 05 | | ion | /25 | Laith | | em | | | STROKE | (SNOMED | | | | MD | | stroke | | | | CT) | | | | | | syndrom | | | | | | | | | | e | | +---------+---------+---------+---------+---------+---------+---------+---------+---------+ | PARESTH | 6732182 | | Active | | Rogers | | Paresth | | | ESIA, | | | | | Laith | | esia of | | | HANDS | (SNOMED | | | | MD | | hand | | | | CT) | | | | | | | | +---------+---------+---------+---------+---------+---------+---------+---------+---------+ | PERIPHE | 1465168 | | Correct | | Rogers | | Periphe | | | RAL | | | ion | /25 | Laith | | ral | | | NEUROPA | (SNOMED | | | | MD | | nerve | | | THY | CT) | | | | | | disease | | +---------+---------+---------+---------+---------+---------+---------+---------+---------+ | THYROID | 9856965 | | Active | | Luz | | Thyroid | | | NODULE | 05 | /20 | | /20 | Eladio | | nodule | | | | (SNOMED | | | | [facility] | | | | | | CT) | | | | | | | | +---------+---------+---------+---------+---------+---------+---------+---------+---------+ | TIA | 4453442 | | Active | | Lauranc | [...] a | | +---------+---------+---------+---------+---------+---------+---------+---------+---------+ | SYNCOPE | 5707136 | | Active | | Lauranc | | Syncope | | | | 07 | /07 | | /10 | e W | | | | | | (SNOMED | | | | Lila | | | | | | CT) | | | | MD | | | | +---------+---------+---------+---------+---------+---------+---------+---------+---------+ | GASTROP | 7750770 | | Active | | Lauranc | | 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 | | | | (SNOMED | | | | Lila | | syndrom | | | | CT) | | | | MD | | e | | +---------+---------+---------+---------+---------+---------+---------+---------+---------+ | CONSTIP | 9294263 | | Active | | Lauranc | | Chronic | | | ATION, | 09 | /08 | | /08 | e W | | | | | CHRONIC | (SNOMED | | | | Lila | | constip | | | | CT) | | | | MD | | ation | | +---------+---------+---------+---------+---------+---------+---------+---------+---------+ | POSTHER | 2029807 | | Active | | Lauranc | | Posther | | | 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 | (SNOMED | | | | Lila | | neuralg | | | IA | CT) | | | | MD | | ia | | +---------+---------+---------+---------+---------+---------+---------+---------+---------+ | DIZZINE | 0410860 | | Active | | Lauranc | | Dizzine | | | SS | 03 | /08 | | /08 | e W | | ss | | | | (SNOMED | | | | Lila | | | | | | CT) | | | | MD | | | | +---------+---------+---------+---------+---------+---------+---------+---------+---------+ | DEHYDRA | 5296751 | | Active | | Lauranc | | Dehydra | | | TION | 6 | /08 | | /08 | e W | | tion | | | | (SNOMED | | | | Lila | | | | | | CT) | | | | MD | | | | +---------+---------+---------+---------+---------+---------+---------+---------+---------+ | DIABETE | 2077354 | | Active | | Lauranc | [...] | | | +---------+---------+---------+---------+---------+---------+---------+---------+---------+ | HYPERTE | 5469482 | | Active | | Lauranc | [...] take 1-2 | | | DIMENHYDRI | [id number] | Christen Ramirez | | 50 MG TABS | tabs 4 | | | MARCELA | 1 | [place] | | | times per | | | | | LINE SERVICE PERSON | | | day as | | | | | | | | needed | | | | | | + + + + + + + + | VICTOZA 18 | | | | LIRAGLUTID | 7696263394 | Jesus | | MG/3ML | | | | E | 2 | Ethan MD | | SOPN | | | | | | | + + + + + + + + | BASAGLAR | 1 pen | | | INSULIN | 6563050750 | Christen Ramirez | | KWIKPEN | every 3 | | | GLARGINE | 9 | [place] | | 100 | days 56 | | | | | LINE SERVICE PERSON | | UNIT/ML | units q | [...] by mouth | | | MECLIZINE | [id number] | Franciscoance W | | HCL 25 [...] mix and | | | NA | [id number] | Maulik | | BOWEL PREP | [...] take 2 | | | GABAPENTIN | 0284948122 | Bailey W | | 300 MG [...] Inject 0.6 | | | LIRAGLUTID | 9247686799 | Christen Ramirez | | MG/3ML | mg daily | | | E | 2 | [place] | | SOPN | | | | | | LINE SERVICE PERSON | + + + + + + + + | ONDANSETRO | 1 tab | | | ONDANSETRO | 8603732707 | Kali | | N HCL 4 MG | every 4 | | | N HCL | 3 | Palacio DPM | | TABS | hours | | | | | | + + + + + + + + | VICTOZA 18 | | | | LIRAGLUTID | 4642074759 | Bailey W | | MG/3ML | [...] 1 tab | | | GABAPENTIN | 1607963055 | Ejsus | | 300 MG | po tid . | | | | 0 | Ethan MD | | CAPS | Pt states | | | | | | | | as needed | | | | | | + + + + + + + + | COLACE 100 | 1 tab by | | | DOCUSATE | 8201158392 | Kali | | MG CAPS | mouth | | | SODIUM | 0 | Hakeem DPM | | | daily at | | | | | | | | bedtime | | | | | | + + + + + + + + | CLONAZEPAM | Take one | | | CLONAZEPAM | 5564724192 | Edna | | 0.5 MG | [...] take 1 | | | ASPIRIN | 5506022949 | Rogers | | 325 MG | [...] 1 tab | | | PREGABALIN | 8156741163 | Bailey W | | MG CAPS | three | | | | 3 | Lila MD | | | times per | | | | | | | | day | | | | | | + + + + + + + + | GLUCOPHAGE | 1 tab one | | | METFORMIN | 1585356970 | Bailey W | | XR 500 MG | time per | | | HCL | 0 | Lila MD | | DE19T-SXC | day | | | | | | + + + + + + + + | HUMALOG | BS <150 - | | | INSULIN | 2727785532 | Christen Ramirez | | 100 | No insulin | | | LISPRO | 1 | [place] | | UNIT/ML | BS | | | (HUMAN) | | LINE SERVICE PERSON | | SOLN | 150-200 | | [...] 50 units | | | INSULIN | 4739727269 | Pako | | UNIT/ML | once per | | | GLARGINE | 3 | Shirauf | | ANGYN | mikaela. Pt | | | | | f LINE SERVICE PERSON | | | states she | | | | | | | | is taking | | | | | | | | 56 units | | | | | | | | every AM | | | | | | + + + + + + + + | NITROFURAN | Take one | | | NITROFURAN | 3350918011 | Edna | | TOIN | capsule [...] | One | | | ERGOCALCIF | 7118586435 | Mariano | | QUANG 14155 | capsule by | | | QUANG [...] take 2 | | | GABAPENTIN | 6605617295 | Mariano | | 300 MG | [...] 10ml QAM | | | METFORMIN | 3445404032 | Mariano | | MG/5ML | Liquid due | | | HCL | 2 | Ariella | | SOLN | to | | | | | CCMA | | | Dysphagia | | | | | | + + + + + + + + | ASPIRIN EC | take 1 | | | ASPIRIN | 2096499124 | Rogers | | 325 MG | tablet | | | | 0 | Laith LUIS | | TBEC | daily | | | | | | + + + + + + + + | RELION | Use to | | | GLUCOSE | 2734759028 | Kali | | BLOOD | test BG | | | BLOOD | 4 | Palacio DPM | | GLUCOSE | one time | | | | | | | TEST STRP | per day | | | | | | + + + + + + + + | NITROFURAN | | | | NITROFURAN | 5313907813 | Edna | | TOIN | | [...] one tablet | | | DOCUSATE | 7344449768 | Laurance W | | MG CAPS | by mouth | | | SODIUM | 0 | Lila MD | | | at bedtime | | | | | | + + + + + + + + | BIOTIN 1 | Take one | | | BIOTIN | 9843013831 | Jesus | | MG CAPS | daily in | | | | 2 | Ethan MD | | | the AM | | | | | | + + + + + + + + | BACTRIM DS | 1 by mouth | | | TRIMETHOPR | 1265933701 | Bailey W | | 800-160 | twice a | | | IM-SULFAME | 1 | Lila MD | | MG TABS | day for 3 | | | THOXAZOLE | | | | | days | | | | | | + + + + + + + + | ASPIRIN 81 | one time | | | ASPIRIN | 3940208223 | Mariano | | MG TABS | per day | | | | 5 | Ariella | | | | | | | | CCMA | + + + + + + + + | GABAPENTIN | two times | | | GABAPENTIN | 7251558640 | Mariano | | 100 MG | per day | | | | 1 | Ariella | | CAPS | | | | | | CCMA | + + + + + + + + | BIOTIN 1 | | | | BIOTIN | 1779301937 | Kali | | MG CAPS | | | | | 2 | Palacio DPM | + + + + + + + + | PIOGLITAZO | Take 1 tab | | | PIOGLITAZO | 6901494789 | Jesus | | NE HCL 15 [...] two times | | | MECLIZINE | 2578037725 | Mariano | | HCL 25 MG [...] take 1 | | | ASPIRIN | 8972134783 | Mariano | | 325 MG | tablet | | | | 0 | Ariella | | TBEC | daily | | | | | CCMA | + + + + + + + + | PIOGLITAZO | Take 1 tab | | | PIOGLITAZO | 6175778472 | Christen Ramirez | | NE HCL 15 | by mouth | | | NE HCL | 0 | [place] | | MG TABS | one time | | | | | LINE SERVICE PERSON | | | per day in | | | | | | | | the AM | | | | | | + + + + + + + + | NEURONTIN | take 1 tab | | | GABAPENTIN | 0023056917 | Bailey W | | 300 MG | po tid | | | | 0 | Lila MD | | CAPS | | | | | | | + + + + + + + + | DIOVAN 160 | one time | | | VALSARTAN | 1756523746 | Mariano | | MG TABS | per day | | | | 0 | Ariella | | | | | | | | CCMA | + + + + + + + + | ASPIRIN | take 1 | | | ASPIRIN | 9573143650 | Bailey W | | 325 MG [...] Take one | | | POTASSIUM | 3621597744 | Jesus | | CHLORIDE | cap daily | | | CHLORIDE | 5 | Ethan MD | | ER 10 MEQ | in the AM | | | | | | | CR-CAPS | | | | | | | + + + + + + + + | KEFLEX 500 | 1 pill | | | CEPHALEXIN | [id number] | Tiesha | | MG CAPS | twice a | | | | 0 | Maria Isabel MD | | | day for 7 | | | | | | | | days | | | | | | + + + + + + + + | GABAPENTIN | one tablet | | | GABAPENTIN | [id number] | Bailey W | | 100 MG [...] 1 tab | | | MECLIZINE | [id number] | Laurance W | | HCL 25 MG | three | | | HCL | 1 | Lila MD | | TABS | times per | | | | | | | | day | | | | | | + + + + + + + + | NITROFURAN | Take one | | | NITROFURAN | [id number] | Edna | | TOIN | capsule [...] 0.02 ml | | | EXENATIDE | [id number] | Bailey W | | MCG PEN 5 | injection | | | | 1 | Lila MD | | MCG/0.02ML | two times | | | | | | | SOPN | per day | | | | | | + + + + + + + + | FLUCONAZOL | take one | | | FLUCONAZOL | 6611594500 | Franciscoance W | | E 150 [...] tab two | | | CILOSTAZOL | 5825694921 | Kali | | 100 MG | times per | | | | 1 | Hakeem DPM | | TABS | day | | | | | | + + + + + + + + | RIOMET 500 | 10ml's two | | | METFORMIN | 2241182171 | Bailey W | | MG/5ML | [...] D | | | | CHOLECALCI | 9606642195 | Kali | | 1000 UNIT | | | | FEROL | 0 | Hakeem DPM | | TABS | | | | | | | + + + + + + + + | NEURONTIN | take 1 tab | | | GABAPENTIN | 0443748531 | Christen Ramirez | | 300 MG | po tid . | | | | 0 | [place] | | CAPS | Pt states | | | | | LINE SERVICE PERSON | | | as needed | | | | | | + + + + + + + + | PANTOPRAZO | Take one | | | PANTOPRAZO | 2021460659 | Edna | | LE SODIUM | tablet by | | | LE SODIUM | 0 | Hope CCMA | | 40 MG TBEC | mouth once | | | | | | | | daily | | | | | | + + + + + + + + | BYETTA 5 | Take as | | | EXENATIDE | 4825181910 | Christen Ramirez | | MCG PEN 5 | directed | | | | 1 | [place] | | MCG/0.02ML | once daily | | | | | LINE SERVICE PERSON | | SOPN | in the AM [...] two times | | | METFORMIN | 3845935420 | Mariano | | HCL 1000 | per day | | | HCL | 1 | Ariella | | MG TABS | | | | | | CCMA | + + + + + + + + | GABAPENTIN | Take 2 | | | GABAPENTIN | 1230887355 | Bailey W | | 300 MG [...] TAKE ONE | | | PREGABALIN | 5549829841 | Kesha | | MG CAPS | [...] 1 TAB | | | BUSPIRONE | 1121376544 | Kali | | HCL 7.5 MG | three | | | HCL | 5 | Palacio DPM | | TABS | times per | | | | | | | | day | | | | | | + + + + + + + + | LANTUS 100 | 25 units | | | INSULIN | 2151063384 | Jesus | | UNIT/ML | two [...] two times | | | MECLIZINE | 1522801283 | Laurance W | | HCL 25 MG | per day | | | HCL | 2 | Lila MD | | TABS | | | | | | | + + + + + + + + | MECLIZINE | One tab by | | | MECLIZINE | 3470467661 | Laurance W | | HCL 25 [...] Take one | | | PROMETHAZI | 8412523077 | Edna | | NE HCL 25 [...] Take one | | | CHOLECALCI | 9009386545 | Jesus | | 1000 UNIT | tablet | | | FEROL | 0 | Ethan MD | | TABS | daily in | | | | | | | | the AM | | | | | | + + + + + + + + | POTASSIUM | | | | POTASSIUM | 0559039850 | Kali | | CHLORIDE | | | | CHLORIDE | 5 | Palacio DPM | | ER 10 MEQ | | | | | | | | CR-CAPS | | | | | | | + + + + + + + + | DULOXETINE | 1 tab one | | | DULOXETINE | 0645602923 | Bailey W | | HCL 30 MG | time per | | | HCL | 6 | Lila MD | | CPEP | day | | | | | | + + + + + + + + | PROCHLORPE | Insert one | | | PROCHLORPE | 7977516158 | Edna | | RAZINE 25 | [...] tab by | | | CLOPIDOGRE | 1231266148 | Christen Ramirez | | MG TABS | mouth one | | | L | 0 | [place] | | | time per | | | BISULFATE | | LINE SERVICE PERSON | | | day in the | | | | | | | | evening | | | | | | + + + + + + + + | LYRICA 100 | 1 tab | | | PREGABALIN | 2963825371 | Christen Escudero. | | MG CAPS | three | | | | 1 | [place] | | | times per | | | | | LINE SERVICE PERSON | | | day. Pt | | | | | | | | states as | | | | | | | | needed | | | | | | + + + + + + + + | LYRICA 100 | 1 tid | | | PREGABALIN | 9535338706 | Christen Escudero. | | MG CAPS | | | | | 1 | [place] | | | | | | | | LINE SERVICE PERSON | + + + + + + + + | MECLIZINE | One tab by | | | MECLIZINE | 7367989628 | Christen Escudero. | | HCL 25 MG | mouth | | | HCL | 0 | [place] | | TABS | three | | | | | LINE SERVICE PERSON | | | times per | | | | | | | | day | | | | | | + + + + + + + + | VALSARTAN | Take one | | | VALSARTAN | 2935719275 | Christen Escudero. | | 160 MG | tablet | | | | 2 | [place] | | TABS | daily in | | | | | LINE SERVICE PERSON | | | the AM | | | | | | + + + + + + + + | BASAGLAR | 56 Units | | | INSULIN | 3322678173 | Christen Escudero. | | KWIKPEN | every | | | GLARGINE | 9 | [place] | | 100 | morning | | | | | LINE SERVICE PERSON | | UNIT/ML | | | | | | | | SOPN | | | | | | | + + + + + + + + | LASIX 80 | 1 tab by | | | FUROSEMIDE | 5707779450 | Christen J. | | MG TABS | mouth one | | | | 5 | [place] | | | time per | | | | | LINE SERVICE PERSON | | | day in the | [...] every | | | FOR | | LINE SERVICE PERSON | | BASAGLAR | morning | | | BASAGLAR | | | | KWIKPEN | with | | | KWIKPEN | | | | | Basaglar | | | | | | | | Kwikpen | | | | | | + + + + + + + + | NOVOLOG | 3U before | | | INSULIN | 6198284706 | Christen J. | | 100 | lunch and | | | ASPART | 1 | [place] | | UNIT/ML | 5U before | | | | | LINE SERVICE PERSON | | SOLN | Dinner | | [...] x 1 | | | LIRAGLUTID | 8133132334 | Christen Ramirez | | MG/3ML | week then | | | E | 2 | [place] | | SOPN | 1.2 mg | | | | | LINE SERVICE PERSON | | | daily per | | | | | | | | week | | | | | | + + + + + + + + | OMEPRAZOLE | Take one | | | OMEPRAZOLE | 5765805855 | Christen Ramirez | | 40 MG | by mouth | | | | 5 | [place] | | CPDR | one time | | | | | LINE SERVICE PERSON | | | per day | | [...] Take 1 | | | GLIPIZIDE | 5579495922 | Christen Ramirez | | XL 2.5 MG | tablet | | | | 1 | [place] | | [id number] | p.o. | | | | | LINE SERVICE PERSON | | | q.a.m. | | | | | | + + + + + + + + | BD INSULIN | Use 5 | | | INSULIN | 8374860142 | Christen Ramirez | | SYRINGE | times | | | SYRINGE-NE | 1 | [place] | | ULTRAFINE | daily to | | | EDLE U-100 | | LINE SERVICE PERSON | | 29G X 1/2" | inject [...] 3U before | | | INSULIN | 0968065326 | Christen Ramirez | | 100 | lunch and | | | LISPRO | 0 | [place] | | UNIT/ML | 5U before | | | | | LINE SERVICE PERSON | | SOLN | Dinner | | [...] Inject 0.6 | | | LIRAGLUTID | 8961131776 | Christen Ramirez | | MG/3ML | mg daily | | | E | 2 | [place] | | SOPN | | | | | | LINE SERVICE PERSON | + + + + + + + + | LIPITOR 20 | take 1 | | | ATORVASTAT | 9050394016 | Christen Ramirez | | MG TABS | tablet by | | | IN CALCIUM | 0 | [place] | | | mouth | | | | | LINE SERVICE PERSON | | | daily in | | | | | | | | the | | | | | | | | evening | | | | | | + + + + + + + + | BASAGLAR | 56 Units | | | INSULIN | 4906830277 | Christen Escudero. | | KWIKPEN | by mouth | | | GLARGINE | 9 | [place] | | 100 | every | | | | | LINE SERVICE PERSON | | UNIT/ML | morning | | | | | | | SOPN | | | | | | | + + + + + + + + | VICTOZA 18 | 5 unit AM | | | LIRAGLUTID | 7747796924 | Christen Ramirez | | MG/3ML | and 5 | | | E | 2 | [place] | | SOPN | units PM | | | | | LINE SERVICE PERSON | + + + + + + + + | BASAGLAR | 1 pen | | | INSULIN | 1366707543 | Christen J. | | KWIKPEN | every 3 | | | GLARGINE | 9 | [place] | | 100 | days 56 | | | | | LINE SERVICE PERSON | | UNIT/ML | units q | | | | | | | SOPN | Day | | | | | | + + + + + + + + | BYETTA 5 | Take as | | | EXENATIDE | 1233182334 | Christen Ramirez | | MCG PEN 5 | directed | | | | 1 | [place] | | MCG/0.02ML | once daily | | | | | LINE SERVICE PERSON | | SOPN | in the AM | | | | | | + + + + + + + + | LANTUS 100 | 56 units | | | INSULIN | 5956205271 | Kaykay | | UNIT/ML | qAM | | | GLARGINE | 3 | Mora DO | | SOLN | | | | | | | + + + + + + + + | SUPREP | mix and | | | NA | 9816150844 | Emeka | | BOWEL PREP | [...] pill BID | | | DOCUSATE | 8593683968 | Christen Ramirez | | MG CAPS | | | | SODIUM | 0 | [place] | | | | | | | | LINE SERVICE PERSON | + + + + + + + + | BD PEN | Use daily | | | INSULIN | 2379658523 | Tiesha | | NEEDLE | to [...] <150 - | | | INSULIN | 0503937810 | Tiesha | | 100 | No [...] Use daily | | | GLUCOSE | 7568168914 | Tiesha | | BLOOD | to check | | | BLOOD | 4 | Maria Isabel MD | | GLUCOSE | blood | | | | | | | TEST STRP | sugar | | | | | | + + + + + + + + | DIABETIC | 1 pair per | | | FOOT CARE | 5309239974 | Tiesha | | INSOLES | custom | | | PRODUCTS | 2 | Maria Isabel MD | | MISC | fit from [...] custom | | | ORTHOTIC | | [place] MD | | SHOES | fit from | | | SHOES | | | | | podiatry | | | | | | | | E11.65, | | | | | | | | e11.21 | | | | | | + + + + + + + + | KEFLEX 500 | 1 pill | | | CEPHALEXIN | 2190254565 | Pako | | MG CAPS | twice a | | | | 0 | Shirauf | | | day for 7 | | | | | f LINE SERVICE PERSON | | | days | | | | | | + + + + + + + + | BYETTA 5 | 0.02 ml | | | EXENATIDE | 6846930947 | Laurance W | | MCG PEN 5 | injection | | | | 1 | Lila MD | | MCG/0.02ML | two times | | | | | | | SOPN | per day | | | | | | + + + + + + + + | LYRICA 100 | 1 tab | | | PREGABALIN | 9816913774 | Laurance W | | MG CAPS | three | | | | 8 | Lila MD | | | times per | | | | | | | | day | | | | | | + + + + + + + + | DRAMAMINE | take 1-2 | | | DIMENHYDRI | 0108412181 | Laurance W | | 50 MG [...] Use 5 | | | INSULIN | 0532102773 | Franciscoance W | | SYRINGE | times | [...] tab by | | | CLOPIDOGRE | 6179126217 | Bailey W | | MG TABS | mouth one | | | L | 4 | Lila MD | | | time per | | | BISULFATE | | | | | day | | | | | | + + + + + + + + | LANTUS 100 | 25 units | | | INSULIN | 0009626736 | Laurance W | | UNIT/ML | two times | | | GLARGINE | 3 | Lila MD | | SOLN | per day | | | | | | + + + + + + + + | LASIX 80 | 1 tab by | | | FUROSEMIDE | 1119269294 | Laurance W | | MG TABS | mouth one | | | | 5 | Lila MD | | | time per | | | | | | | | day | | | | | | + + + + + + + + | FUROSEMIDE | 1 tab one | | | FUROSEMIDE | 3656329354 | Laurance W | | 40 MG | time per | | | | 0 | Lila MD | | TABS | day | | | | | | + + + + + + + + | BUSPIRONE | 1 TAB | | | BUSPIRONE | 3545732698 | Laurance W | | HCL 7.5 MG | three | | | HCL | 5 | Lila MD | | TABS | times per | | | | | | | | day | | | | | | + + + + + + + + | COLACE 100 | 1 tab by | | | DOCUSATE | 7839746125 | Laurance W | | MG CAPS | mouth | | | SODIUM | 0 | Lila MD | | | daily at | | | | | | | | bedtime | | | | | | + + + + + + + + | BACTRIM DS | 1 by mouth | | | TRIMETHOPR | 8421426291 | Laurance W | | 800-160 | twice a | | | IM-SULFAME | 1 | Lila MD | | MG TABS | day for 3 | | | THOXAZOLE | | | | | days | | | | | | + + + + + + + + | LYRICA 50 | Take 1 tab | | | PREGABALIN | 3856444627 | Laurance W | | MG CAPS [...] tab one | | | METFORMIN | 8664040896 | Laurance W | | XR 500 MG | time per | | | HCL | 0 | Lila MD | | MI19I-WIL | day | | | | | | + + + + + + + + | PIOGLITAZO | Take 1 tab | | | PIOGLITAZO | 8675604562 | Bailey W | | NE HCL 15 | by mouth | | | NE HCL | 0 | Lila MD | | MG TABS | one time | | | | | | | | per day | | | | | | + + + + + + + + | NYSTATIN-T | Apply thin | | | NYSTATIN-T | 5469187313 | Bailey W | | RIAMCINOLO | layer to | | | RIAMCINOLO | 0 | Lila MD | | NE | affected | | | NE | | | | 275854-4.1 | area BID | | | | | | | UNIT/GM-% | prn for | | | | | | | CREA | itching | | | | | | + + + + + + + + | OMEPRAZOLE | Take one | | | OMEPRAZOLE | 4564102657 | Laurance W | | 40 MG [...] take 1 | | | ATORVASTAT | 1304632214 | Laurance W | | MG TABS | tablet by | | | IN CALCIUM | 0 | Lila MD | | | mouth | | | | | | | | daily | | | | | | + + + + + + + + | MECLIZINE | 1 tab | | | MECLIZINE | 5511903828 | Laurance W | | HCL 25 MG | three | | | HCL | 1 | Lila MD | | TABS | times per | | | | | | | | day | | | | | | + + + + + + + + | LANTUS 100 | 56 units | | | INSULIN | 6978062824 | Laurance W | | UNIT/ML | in the | | | GLARGINE | 3 | Lila MD | | SOLN | morning | | | | | | + + + + + + + + | ONDANSETRO | 1 tab | | | ONDANSETRO | 2575550009 | Laurance W | | N HCL 4 MG | every 4 | | | N HCL | 3 | Lila MD | | TABS | hours | | | | | | + + + + + + + + | CILOSTAZOL | 1 tab two | | | CILOSTAZOL | 8069351867 | Laurance W | | 100 MG | times per | | | | 1 | Lila MD | | TABS | day | | | | | | + + + + + + + + | RELION | Use to | | | GLUCOSE | 4328298206 | Laurance W | | BLOOD | test BG | | | BLOOD | 4 | Lila MD | | GLUCOSE | one time | | | | | | | TEST STRP | per day | | | | | | + + + + + + + + | GABAPENTIN | Take 2 | | | GABAPENTIN | 4014111074 | Franciscoance W | | 300 MG [...] TAB one | | | VALSARTAN | 2775995329 | Bailey W | | 160 MG | time per | | | | 2 | Lila MD | | TABS | day | | | | | | + + + + + + + + | LYRICA 50 | TAKE ONE | | | PREGABALIN | 3728236127 | Laurance W | | MG CAPS [...] 0.2 ml | | | EXENATIDE | 5355140572 | Bailey W | | MCG PEN 5 | injection | | | | 1 | Lila MD | | MCG/0.02ML | two times | | | | | | | SOPN | per day | | | | | | + + + + + + + + | VICTOZA 18 | 1.2 mg | | | LIRAGLUTID | 7268108209 | Bailey W | | MG/3ML | injected | | | E | 3 | Lila MD | | SOPN | martin | | | | | | + + + + + + + + | KEFLEX 500 | one po TID | | | CEPHALEXIN | 5957847298 | Susanna | | MG CAPS | | | | | 0 | Medel MD | + + + + + + + + | FLUCONAZOL | take one | | | FLUCONAZOL | 2137529823 | Susanna | | E 150 MG | tablet PO | | | E | 0 | Gianfranco MD | | TABS | x 1 repeat | | | | | | | | in 3 days | | | | | | + + + + + + + + | LYRICA 50 | 1 tab | | | PREGABALIN | 5073818955 | Laurance W | | MG CAPS | three | | | | 3 | Lila MD | | | times per | | | | | | | | day | | | | | | + + + + + + + + | GABAPENTIN | Take 2 | | | GABAPENTIN | 7629704313 | Laurance W | | 300 MG [...] tab one | | | DULOXETINE | 2797009746 | Franciscoance W | | HCL 30 MG | time per | | | HCL | 6 | Lila MD | | CPEP | day | | | | | | + + + + + + + + | RIOMET 500 | 10ml's two | | | METFORMIN | 4946398487 | Franciscoance W | | MG/5ML | times per | | | HCL | 2 | Lial MD | | SOLN | day. | [...] TAB one | | | VALSARTAN | 3591875157 | Bailey W | | MG TABS | time per | | | | 0 | Lila MD | | | day | | | | | | + + + + + + + + | MECLIZINE | One tab by | | | MECLIZINE | 9829147005 | Franciscoance W | | HCL 25 [...] take 2 | | | GABAPENTIN | 5857619685 | Bailey W | | 300 MG [...] tab one | | | VALSARTAN | 5626385542 | Laurance W | | MG TABS | time per | | | | 4 | Lila MD | | | day | | | | | | + + + + + + + + | VICTOZA 18 | 0.6 mg | | | LIRAGLUTID | 4387349454 | Laurance W | | MG/3ML | [...] tab one | | | SITAGLIPTI | 6471832477 | Laurance W | | 100 MG | time per | | | N | 8 | Lila MD | | TABS | day | | | PHOSPHATE | | | + + + + + + + + | GABAPENTIN | 2 tabs two | | | GABAPENTIN | 3350135521 | Laurance W | | 300 MG | times per | | | | 0 | Lila MD | | CAPS | day | | | | | | + + + + + + + + | DIOVAN 160 | 1 by mouth | | | VALSARTAN | 0150302417 | Laurance W | | MG TABS | every day | | | | 0 | Lila MD | + + + + + + + + | GABAPENTIN | 1 tab at | | | GABAPENTIN | 5557447688 | Laurance W | | 100 MG [...] 28 units | | | INSULIN | 8572903077 | Laurance W | | UNIT/ML | two times | | | GLARGINE | 0 | Lila MD | | SOLN | per day | | | | | | + + + + + + + + | LISINOPRIL | take 1 | | | LISINOPRIL | 8131145231 | Rogers | | 20 MG | tablet by | | | | 1 | Laith LUIS | | TABS | mouth | | | | | | | | daily | | | | | | + + + + + + + + | LANTUS 100 | 56 units | | | INSULIN | 2950030199 | Laurance W | | UNIT/ML | daily | | | GLARGINE | 0 | Lila MD | | SOLN | | | | | | | + + + + + + + + | GABAPENTIN | 1 by mouth | | | GABAPENTIN | 9041476364 | Laurance W | | 100 MG [...] | One | | | ERGOCALCIF | 0288030758 | Laurance W | | QUANG 15744 | capsule by | | | QUANG [...] by mouth | | | LISINOPRIL | 0811759975 | Laurance W | | 5 MG TABS | one time | | | | 0 | Lila MD | | | per day | | | | | | + + + + + + + + | RIOMET 500 | 10ml QAM | | | METFORMIN | 7353329898 | Laurance W | | MG/5ML | Liquid due | | | HCL | 2 | Lila MD | | SOLN | to | | | | | | | | Dysphagia | | | | | | + + + + + + + + | COLACE 100 | one tablet | | | DOCUSATE | 4916694722 | Laurance W | | MG CAPS | by mouth | | | SODIUM | 0 | Lila MD | | | at bedtime | | | | | | + + + + + + + + | MECLIZINE | 1 by mouth | | | MECLIZINE | 7535392452 | Laurance W | | HCL 25 [...] by mouth | | | ASPIRIN | 8234574554 | Laurance W | | MG TABS | every day | | | | 5 | Lila MD | + + + + + + + + | METFORMIN | one tablet | | | METFORMIN | 5413978891 | Laurance W | | HCL 1000 | by mouth | | | HCL | 0 | Lila MD | | MG TABS | twice a | | | | | | | | day | | | | | | + + + + + + + + | GABAPENTIN | one tablet | | | GABAPENTIN | 0334391090 | Laurance W | | 100 MG [...] | she had | | | | Thepablo MD | | | redness | | [...] | | | | | | | LINE SERVICE PERSON | + + + + + + [...] n | +------+------+-------+------+-------+------+ + + + | Rx Refill: Lorix Request for MECLIZINE 25MG TAB | + + + +--------+ +---+---+---+ + | | ESM_RR | [id number] | | | B | e-scripts | | | | 9`BREA | | | | messenger | | [...] | | | | | | | [id number] | | | | | | | | `[id number] | | | | | | | | 06``ELLIE | | | | | | | [...] Rx Refill: eRx Request for RELION PEN [id number] MIS | + + + +--------+ +---+---+---+ + | | ESM_RR | [id number] | | | B | e-scripts | | | | 9`RELION | | | | messenger | | | | PEN | | | | refill | | | | [id number] | | | | request | | [...] | | | | | | | KWJOSELINPEN.`` | | | | | | | | 1`0`09/04/ | | | | | | | | | | | | | | | | /2016`Walm | | | | | | | | art - | | | | | | | | [place]*` | | | | | | | | [id number] | | | | | | | | `[id number] | | | | | | | | 34`945865` | | | | | | | | RELION PEN | | | | | | | | [id number] | | | | | | | [...] +--------+ +---+---+---+ + + + | Rx Emmanuelill: Taryn Request for VALSARTAN 160MG TAB | + + + +--------+ +---+---+---+ + | | ESM_RR | [id number] | | | B | e-scripts | [...] | | | | | | | [place]*` | | | | | | | | [id number] | | | | | | | | `[id number] | | | | | | | [...] +--------+ +---+---+---+ + | | ESM_RR | [id number] | | | B | e-scripts | [...] | | | | | | | [place]*` | | | | | | | | [phone] | | | | | | | | `[id number] | | | | | | | [...] Rx Refill: eRx Request for RELION PEN [id number] MIS | + + + +--------+ +---+---+---+ + | | ESM_RR | [id number] | | | B | e-scripts | | | | 0`RELION | | | | messenger | | | | PEN | | | | refill | | | | [id number] | | | | request | | [...] | | | | | | | 1`0`11/ | | | | | | | | 2016`10/15 | | | | | | | | /2016`Walm | | | | | | | | art - | | | | | | | | [place]*` | | | | | | | | [phone] | | | | | | | | `[phone] | | | | | | | | 34`263274` | | | | | | | | RELION PEN | | | | | | | | [id number] | | | | | | | [...] | | | | | | | MARY. | | | | | + +--------+ [...] +--------+ +---+---+---+ + | | ESM_RR | [id number] | | | B | e-scripts | [...] | | | | | | | [id number] | | | | | | | | `[id number] | | | | | | | [...] + | Rx Refill: eRx Request for BASAGLAR KWIKPEN 100 UNIT/ML SOPN | + + + +--------+ +---+---+---+ + | | ESM_RR | [id number] | | | B | e-scripts | | | | 6`DADA | | | | messenger | | [...] | | | | | | | `0`09/14/ | | | | | | | | 017`09/14/ | | | | | | | | 2016`Madisyn | | | | | | | | rt - | | | | | | | | [place]*` | | | | | | | | [phone] | | | | | | | | `[phone] | | | | | | | | 59`417422` | | | | | | | [...] | | | | | | | LY IN | | | | | | [...] + + | Office Visit: Endo Consult: DM II | + + + +--------+--------+---+---+---+ + [...] +--------+------+---+---+---+ + + + | Rx Refill: Taryn Request for CLOPIDOGREL 75MG TAB | + + + +--------+ +---+---+---+ + | | ESM_RR | [id number] | | | B | e-scripts | [...] | | | | | | | `0`07/19/ | | | | | | | | 017`07/19/ | | | | | | | | 2016`Walma | | | | | | | | rt - | | | | | | | | [place]*` | | | | | | | | [phone] | | | | | | | | `[phone] | | | | | | | [...] +--------+ +---+---+---+ + | | ESM_RR | [id number] | | | B | e-scripts | [...] | | | | | | | /2016`August | | | | | | | | art - | | | | | | | | [place]*` | | | | | | | | [phone] | | | | | | | | `[phone] | | | | | | | [...] +--------+ +---+---+---+ + | | ESM_RR | [id number] | | | B | e-scripts | [...] | | | | | | | [place]*` | | | | | | | | [phone] | | | | | | | | `[id number] | | | | | | | [...] + + +------+--------+ +---+ + | | ZZ-GE-UNK | 48 | U/L | 22-51 | [...] + + + | Office Visit: ER f/u | + + + +--------+--------+---+---+---+ + [...] +--------+ +---+---+---+ + | | ESM_RR | [id number] | | | B | e-scripts | | | | 6`VALSARTA | | | | messenger | | [...] | | | | | | | [phone] | | | | | | | | `[id number] | | | | | | | [...] | Rx Refill: eRx Request for INSULIN [id number]/29G MIS | + + + +--------+ +---+---+---+ + | | ESM_RR | [id number] | | | B | e-scripts | | | | 7`INSULIN | | | | messenger | | | | [id number] | | | | refill | | [...] | | | | | | | 016`Tyler | | | | | | | | t - | | | | | | | | [place]*` | | | | | | | | [phone] | | | | | | | | `[phone] | | | | | | | | 01`29568`I | | | | | | | | NSULIN | | | | | | | | [id number] | | | | | | | [...] +--------+ +---+---+---+ + | | ESM_RR | [phone] | | | B | e-scripts | [...] | | | | | | | 016`04/13/ | | | | | | | | 2015`Walma | | | | | | | | rt - | | | | | | | | [place]*` | | | | | | | | [phone] | | | | | | | | `[id number] | | | | | | | | 568`[id number]` | | | | | | | [...] + | Rx Refill: Taryn Request for ATORVASTATIN 20MG TAB | + + + +--------+ +---+---+---+ + | | [facility]_RR | [id number] | | | B | e-scripts | [...] | | | | | | | [place]*` | | | | | | | | [id number] | | | | | | | | `[id number] | | | | | | | [...] + +---+ + | | ZZ-GE-UNK | 38 | mL/min/1.7 | >=60 | L | [...] + +---+ + | | CREATININE | 1.59 | mg/dL | 0.44-1.03 | H | [...] + + | Lab Report: RENAL FUNCTION PANEL | + + + + +------+ + +---+ + | | PO4 | 3.4 | mg/dL | 2.4-4.7 | | phosphate, | | | | | | | | serum | + + +------+ + +---+ + | | CALCIUM | 8.9 | mg/dL | 8.6-10.2 | | calcium, | | | | | | | | serum | + + +------+ + +---+ + | | ALBUMIN | 3.7 | g/dL | 3.5-5.0 | | albumin, | | | | | | | | serum | + + +------+ + +---+ + | | ZZ-GE-UNK | 32 | mL/min/1.7 | >=60 | L | [...] | CREATININE | 1.80 | mg/dL | 0.44-1.03 | H | creatinine | | | | | | | | , serum | + + +------+ + +---+ + | | BUN | 37 | mg/dL | 6-20 | H | urea | | | | | | | | nitrogen, | | | | | | | | blood | + + +------+ + +---+ + | | GLUCOSE | 365 | mg/dL | 70-99 | H | blood | | | SER | | | | | glucose | + + +------+ + +---+ + | | ANION GAP | 8 | mmol/L | 3-12 | | anion gap, | | | | | | | | serum | + + +------+ + +---+ + | | CO2 | 25 | mmol/L | 22-32 | | carbon | | | | | | | | dioxide, | | | | | | | | venous | | | | | | | | blood | + + +------+ + +---+ + | | CHLORIDE | 103 | mmol/L | 95-109 | | chloride, | | | | | | | | serum | + + +------+ + +---+ + | | POTASSIUM | 4.8 | mmol/L | 3.5-5.2 | | potassium, [...] +-----+------+------+ +---+ + | | HGB | 10.7 | g/dL | 11.5-15.0 | L | hemoglobin | | | | | | | | , blood | + +-----+------+------+ +---+ + + + | Podiatry Visit: Diabetic Foot Care Visit- | + + + +---------+--------+---+---+---+ + | | DIET | yes | | | | Dietary | | | 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 | | | | | management | [...] | | | | ) | + +---------+--------+---+---+---+ + | | MEDS | Done | [...] | | | | ) | + +---------+--------+---+---+---+ + | | SMOK | never | | | | Tobacco | | | STATUS | smoker | | | | use [facility] | + +---------+--------+---+---+---+ + Plan of Care + + + + | Type | Date | Detail | + + + + | Appointment | 03:30 PM | David Cornejo MD [facility], | | | | [address] [facility] | | | | [address], [place], [address], | | | | | + + + + | Referral | | Physical Therapy Evaluation | | | | [facility], [address] | | | | Fernando Arellano | | | | [address] [place] [address], [address] | | | | | | | | | + + + + | Referral | | Physical Therapy Evaluation | | | | [facility], [address] | | | | Fernando Arellano | | | | [place], [address] | | | | | | | | | + + + + | Referral | | GI Consult | | | | Emeka Clark MD, [address] | | | | [address] [employer] [address], | | | | [place], [address] | | | | | + + + + | Referral | | GI Consult | | | | Emeka Clark MD, [address] | | | | [address] [employer] [address], | | | | [place], [address] | | | | | + + + + | Referral | | Nephrology Evaluation | | | | Anisa Reeves, | | | | [address] [facility] | | | | [place], [address] | | | | | | | | | + + + + | Referral | | Nephrology Evaluation | | | | Larry Galo, | | | | [address], | | | | [address], [place], [address] | | | | | | | | | + + + + | Referral | | Surgical Consult | | | | Jesus Long, [address] | | | [address], | | | | [place], [address] | | | | | + + + + | Referral | | Surgical Consult | | | | Jesus Long, [address] | | | [address], | | | | [place], [address] | | | | | + + + + | Referral | | Endocrinology Consult | + + + + | Referral | | Podiatry Consult | | | | Kali Palacio, [address] | | | | [place], | | | | [place], [address] | | | | | + + + + | Referral | | Nephrology Evaluation | | | | Larry Galo, | | | | [address], | | | | [address], [place], [address] | | | | | | | | | + + + + | Referral | | Podiatry Consult | | | | Kali Palacio, [address] | | | | [place], | | | | [place], [address] | | | | | + + + + | Referral | | Nephrology Evaluation | | | | Larry Galo, | | | | [address], | | | | [address], [place], [address] | | | | | | | | | + + + + | Referral | | Neurology Consult | | | | Sure Chill Phone #, | | | | [address] | [address], [place], [address] | | | | | + + + + | Referral | | Neurology Consult | | | | Sure Chill Phone #, | | | | [address] | [address], [place], [address] | | | | | + + + + | Referral | | MRA Head-WO Con | | | | Dian Atkins, [address] | | | | [address], | | | | [place], [address] | | | | | + + + + | Referral | | MRA Head-WO Con | | | | Dian Atkins, [address] | | | | [address], | | | | [place], [address] | | | | | + + + + | Referral | | MRA Head-WWO Con | | | | Dian Atkins, [address] | | | | [address], | | | | [place], [address] | | | | | + + + + | Referral | | MRA Head-WWO Con | | | | Dian Scheduling, [address] | | | | [address], | | | | [place], [address] | | | | | + + + + +---+ + | | Referral excluded from report: | +---+ + + + + + | Referral | | Physical Therapy Evaluation | | | | [facility], [address] | | | | [address] | | | | [address], [place], [address] | | | | | | | | | + + + + | Referral | | Neurology Consult | | | | MD August Bourne, [address] | | | | [address], | | | | [place], [address] | | | | | + + + + | Referral | | Neurology Consult | | | | Rogers Ozuna, [address] | | | | [address] [place], | | | | [place], [address] | | | | | + + + + | Referral | | Cardiology Consult | | | | MD Pelon Fay, | | | | [address] | | | | [address], [place], [address] | | | | | | | | | + + + + | Referral | | GI Consult | | | | [address] | | | | [address], [place], [address] | | | | | | | | | + + + + | Referral | | Physical Therapy Evaluation | | | | [facility], [address] | | | | [address] | | | | [address], [place], [address] | | | | | | | | | + + + + | Referral | | Diabetic Education - | | | | Individual | | | | Dian [facility], | | | | [address], | | | | [place], [address] | | | | | + + + + | Referral | | GI Consult | | | | [address] | | | | [address], [place], [address] | | | | | | | | | + + + + | Referral | | US Soft Tissue Head/Neck | | | | Exam Dian | | | | Scheduling, [address] | | | | [address], [place], [place], | | | | [address] | | | | | + + + + | Referral | | Neurology Consult | | | | [facility] | | | | Claudia, [address], | | | | [place], [address] | | | | | + + + + | Referral | | VL Carotid-Cerebral Duplex | | | | Dian | | | | Milly [address] | | | | [place], [place], | | | | [address] | | | | | + + + + | Referral | | Holter Monitor | | | | Dian Atkins, [address] | | | | [address], | | | | [place], [address] | | | | | + + [...] Microalb/Creat Ratio UR, | | | | [place] | + + + + | Pending [...] | + + + + + | CPT-45417 | IV infusion -1st hr | | | | | (Rehydration) | | | + + + + + | CPT-19443 | Glucose by monitor | | | + + + + + | CPT-43507 | UA Dipstick | | | + + + + + | CPT-34235 | UA Dipstick | | | + + + + + | CPT-85485 | Initial Psych | | | | | Evaluation | | | + + + + + | CPT-16245 | [facility], 6 or | | | | | more [address] | | | + + + + [...] | + + + + + | CPT-51327 | Trim Skin Lesions | | | | | [address] | | | + + + + + | CPT-20530 | UA Dipstick | | | + + + + + | CPT-67874 | [facility], 6 or | | | | | more [address] | | | + + + + [...] | + + + + + | CPT-27020 | [facility], 6 or | | | | | more [address] | | | + + + + [...] | + + + + + | CPT-51752 | MRA Head-WWO Con | | | + + + + + +---+ + | | Order excluded from report: | +---+ + + + + + + | CPT-88873 | Physical Therapy | | | | | Evaluation | | | + + + + + | [id number] | [facility] Generic Patient | | | | | Encounter Service | | | | | (from patch) | | | + + + + + | [id number] | [Recorded for CQM] | | | | | Documentation of | | | | | current medications | | | | | (procedure) | | | + + + + + | [id number] | [Recorded for CQM] | | | | | Documentation of | | | | | current medications | | | | | (procedure) | | | + + + + + | [id number] | [Recorded for CQM] | | | | | Documentation of | | | | | current medications | | | | | (procedure) | | | + + + + + | [id number] | [Recorded for CQM] | | | | | Documentation of | | | | | current medications | | | | | (procedure) | | | + + + + + | FREE T4 21255 | T4 Free | | | + + + + + | T3 FREE 41920 | T3 Free | | | + + + + + | TSH 02933 | TSH | | | + + + + + | GLYCO HGB 40365 | HgbA1C | | | + + + + + | [id number] | [facility] Generic Patient | | | | | Encounter Service | | | | | (from patch) | | | + + + + + | [id number] | [Recorded for [facility]] | | | | | Documentation of | | | | | current medications | | | | | (procedure) | | | + + + + + | [id number] | [facility] Generic Patient | | | | | Encounter Service | | | | | (from patch) | | | + + + + + | CPT-79870 | EKG- tracing with | | | | | report (72253) | | | + + + + + | [id number] | [Recorded for CQM] | | | | | Documentation of | | | | | current medications | | | | | (procedure) | | | + + + + + | [id number] | [facility] Generic Patient | | | | | Encounter Service | | | | | (from patch) | | | + + + + + | CPT-Troponin l | Troponin I | | | | 23473 | | | | + + + + + | [id number] | [Recorded for CQM] | | | | | Documentation of | | | | | current medications | | | | | (procedure) | | | + + + + + | CPT-86907 | Physical Therapy | | | | | Evaluation | | | + + + + + | CPT-G8427 | Current Medications | | | | | Documented | | | + + + + + | [id number] | [Recorded for CQ] | | | | | Documentation of | | | | | current medications | | | | | (procedure) | | | + + + + + | CPT-G8427 | Current Medications | | | | | Documented | | | + + + + + | [id number] | [Recorded for CQM] | | | [...] + + + + | CHEM PROF 89226 | CMP (Comprehensive | | | | | Metabolic Panel) | | | + + + + + | GLYCO HGB 71389 | HgbA1C | | | + + + + + | CPT-Q2037 | Fluvirin | | | | | (Influenza) | | | | | Med/Atrio | | | + + + + + | RISK 76443 | Lipid Profile | | | + + + + + | VIT D HYDR 78959 | Vit D, 25 hydroxy | | | + + + + + | CYC CITRU 95952 | Cyclic | | | | | Citrullinated Pept | | | | | IgG | | | + + + + + | RA QUANT 37457 | Rheumatoid Factor | | | | | (quant) | | | + + + + + | TSH 21805 | TSH | | | + + + + + | IVANA 15074 | IVANA | | | + + + + + | GLYCO HGB 13324 | HgbA1C | | | + + + + + | CPT-65265 | EKG- tracing with | | | | | report (30064) | | | + + + + + | CPT-85269 | ANDRE | | | + + + + + | 69457 08340 | Holter Monitor 48H | | | | | Panel | | | + + + + + | 99701 26449 | Holter Monitor 72H | | | | | Panel | | | + + + + + | CPT-17857 | Barium Swallow MBS | | | | | with Speech | | | + + + + + | 82745 98070 | US Abdomen-Cmplt | | | | | and Pelvic-Lmtd | | | + + + + + | CPT-70909 | US Soft Tissue | | | | | Head/Neck Exam | | | + + + + + | CPT-31952 | Motor nerve testing | | | | | - each nerve | | | + + + + + | RISK 25867 | Lipid Profile | | | + + + + + | ESR 63332 | Sedimentation Rate | | | | | (ESR) | | | + + + + + | SPEP IF 30635 | SPEP with JESÚS if | | | | | indicated | | | + + + + + | B12+FOLATE MULTIPLE | B-12 - Folate | | | + + + + + | PFA 96810 | Platelet Function | | | | | Assay | | | + + + + + | 22394 | MRA Head-WO Con | | | + + + + + | 37379 | MR Head-WO Con | | | + + + + + | CPT-21887 | VL Carotid-Cerebral | | | | | Duplex | | | + + + + + | CPT-44586 | Holter Monitor | | | + + + + + | D DIMER 45282 | D-dimer (tyrese) | | | + + + + + | 30723 | CT Head-WWO Con | | | + + + + + | VIT D HYDR 43687 | Vit D, 25 hydroxy | | | + + + + + | TSH 71609 | TSH | | | + + + + + | B12+FOLATE MULTIPLE | B-12 - Folate | | | + + + + + | UA 90560 | Urinalysis | | | + + + + + | CHEM PROF 11702 | CMP (Comprehensive | | | | | Metabolic Panel) | | | + + + + + | CBC 01837 | CBC w/ Diff - w/ | | | | | platelets | | | + + + + + | GLYCO HGB 64233 | HgbA1C | | | + + + + + | TSH 42449 | TSH | | | + + + + + | VIT D HYDR 89661 | Vit D, 25 hydroxy | | [...]
--- OUTSIDE RECORDS SUMMARY | ~2019-03-25 | XMS | Clinical Summary ---
Demographics + + + | Address | [address] | | | [place] [address] | + + + | Home Phone | | + + + | Preferred Language | Unknown | + + + | Marital Status | D | + + + | Evangelical Affiliation | Unknown | + + + | Race | Unspecified | + + + | Ethnic Group | or | + + + Author + + + | Author | [facility] | + + + | Organization | [facility] | + + + | Address | [address] | | | [place] [address] | + + + | Phone | Unavailable | + + + Care Team Providers + +------+ + | Care Search Marketing Specialist Name | Role | Phone | [...] fied | | +---------+---------+---------+---------+---------+---------+---------+---------+---------+ | DIABETE | [id number] | | Active | | David W | | Diabeti | | | S | [id number] | /15 | | /15 | Theen [...] s | | +---------+---------+---------+---------+---------+---------+---------+---------+---------+ | MUSCLE | [id number] | | Active | | Christen | | Muscle | | | PAIN | 1 | | | /07 | J. 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 | | | | +---------+---------+---------+---------+---------+---------+---------+---------+---------+ | DIABETE | [id number] | | Active | | David W | | Diabeti | | | S | 228084 | /11 | | /12 | Theen [...] s | | +---------+---------+---------+---------+---------+---------+---------+---------+---------+ | MILD | 7592545 | | Active | | Maulik | [...] | CTOMY, | | / | | | Mendels | | d [...] uterus | | +---------+---------+---------+---------+---------+---------+---------+---------+---------+ | COLONIC | [id number] | | Active | | Emeka | [...] | | | +---------+---------+---------+---------+---------+---------+---------+---------+---------+ | CONSTIP | 8446271 | | Active | | Emeka | | Constip | | | ATION | 8 | /13 | | /13 | Petre | | ation | | | | (SNOMED | | | | MD | | | | | | CT) | | | | | | | | +---------+---------+---------+---------+---------+---------+---------+---------+---------+ | CHANGE | 5635862 | | Active | | Emeka | | Altered | | | IN | 9 | /13 | | /13 | Petre | | bowel | | | BOWEL | (SNOMED | | | | MD | | functio | | | HABITS | CT) | | | | | | n | | +---------+---------+---------+---------+---------+---------+---------+---------+---------+ | DECREAS | 4807105 | | Active | | Emeka | | Decreas | | | ED | 6 | /13 | | /13 | Petre | | e in | | | APPETIT | (SNOMED | | | | MD | | appetit | | | E | CT) | | | | | | e | | +---------+---------+---------+---------+---------+---------+---------+---------+---------+ | WEIGHT | 3631359 | | Active | | Emeka | | Abnorma | | | LOSS | 01 | /13 | | /13 | Petre | | l | | | ABNORMA | (SNOMED | | | | MD | | weight | | | L | CT) | | | | | | loss | | +---------+---------+---------+---------+---------+---------+---------+---------+---------+ | NAUSEA | 9849194 | | Active | | Emeka | | Nausea | | | ALONE | 07 | /13 | | /13 | Petre | | | | | | (SNOMED | | | | MD | | | | | | CT) | | | | | | | | +---------+---------+---------+---------+---------+---------+---------+---------+---------+ | RECTAL | [id number] | | Active | | Emeka | | Rectal | | | BLEEDIN | 2 | /13 | | /13 | Petre | | hemorrh | | | G | (SNOMED | | | | MD | | age | | | | CT) | | | | | | | | +---------+---------+---------+---------+---------+---------+---------+---------+---------+ | DEMENTI | 8492925 | | Active | | Christen | | Dementi | | | A | 6 | / | | /10 | J. | | a | | | WITHOUT | (SNOMED | | | | [place] | | | | | | CT) | | | | ta BROKE BEATER MACHINE OPERATOR | | | | | BEHAVIO | | | | | | | | | | RAL | | | | | | | | | | DISTURB | | | | | | | | | | ANCE | | | | | | | | | +---------+---------+---------+---------+---------+---------+---------+---------+---------+ | CHRONIC | 2258091 | | Active | | Christen | | Chronic | | | | 03 | /10 | | /10 | J. | | | | | PROGRES | (SNOMED | | | | [place] | | progres | | | SIVE | CT) | | | | ta BROKE BEATER MACHINE OPERATOR | | sive | | | RENAL | | | | | | | renal | | | FAILURE | | | | | | | failure | | +---------+---------+---------+---------+---------+---------+---------+---------+---------+ | ANEMIA | 4841686 | | Active | | Christen | | Anemia | | | | 00 | / | | | J. | | | | | | (SNOMED | | | | [place] | | | | | | CT) | | | | ta BROKE BEATER MACHINE OPERATOR | | | | +---------+---------+---------+---------+---------+---------+---------+---------+---------+ | DEMENTI | 4292489 | | Active | | Christen | | Procedu | | | A | | | | | J. | | re | | | SCREENI | (SNOMED | | | | [place] | | carried | | | NG | CT) | | | | ta BROKE BEATER MACHINE OPERATOR | | out on | | | | | | | | | | | | | | | | | | | | subject | | +---------+---------+---------+---------+---------+---------+---------+---------+---------+ | FALL | [id number] | | Active | | Christen | | At risk | | | RISK | 07 | /21 | | /22 | J. 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 | | c | | | MELLITU | (SNOMED | | | | [place] | | periphe | | | S, TYPE | CT) | | | | ta BROKE BEATER MACHINE OPERATOR | | ral | | | II [...] s | | +---------+---------+---------+---------+---------+---------+---------+---------+---------+ | CORNS | [id number] | | Inactiv | | Kali | | Corns | | | AND | 00 | / | e | / | Palacio | | and | | | CALLOSI | (SNOMED | | | | DPM | | callus | | | TIES | CT) | | | | | | | | +---------+---------+---------+---------+---------+---------+---------+---------+---------+ | HAMMER | 4636506 | | Active | | Kali | [...] | | | +---------+---------+---------+---------+---------+---------+---------+---------+---------+ | HALLUX | 9249940 | | Active | | Kali | [...] | (ICD-10 | | | / | Hakeem | | diabete | | [...] ropathy | | +---------+---------+---------+---------+---------+---------+---------+---------+---------+ | DIABETE | 4829697 | | Active | | Kali | | Periphe | | | S | 02 | / | | /01 | Palacio [...] s | | +---------+---------+---------+---------+---------+---------+---------+---------+---------+ | ONYCHOM | 7396264 | | Active | | Kali | | Onychom | | | YCOSIS | 08 | /01 | | /01 | Palacio | | ycosis | | | | (SNOMED | | | | DPM | | | | | | CT) | | | | | | | | +---------+---------+---------+---------+---------+---------+---------+---------+---------+ | HEARTBU | 1007957 | | Active | | Tiesha | | Heartbu | | | RN | 0 | / | | / | | | rn | | | | (SNOMED | | | | [place] | | | | | | CT) | | | | MD | | | | +---------+---------+---------+---------+---------+---------+---------+---------+---------+ | TYPE 2 | 0070190 | | Active | | Tiesha | [...] S | -CM) | | | | [place] | | s | | | MELLITU [...] athy | | +---------+---------+---------+---------+---------+---------+---------+---------+---------+ | UTI | 6294327 | | Active | | Pako | | Urinary | | | | 5 | /13 | | /13 | Middlek | | tract | | | | (SNOMED | | | | auff | | infecti | | | | CT) | | | | BROKE BEATER MACHINE OPERATOR | | ous | | | | | | | | | | disease | | +---------+---------+---------+---------+---------+---------+---------+---------+---------+ | LOCALIZ | 6398750 | | Active | | D'Elena | [...] | | | +---------+---------+---------+---------+---------+---------+---------+---------+---------+ | LIPOMA | 5333599 | | Active | | Lauranc | | Lipoma | | | | 2 | /14 | | /14 | e W | | (clinic | | | | (SNOMED | | | | Lila | | al) | | | | CT) | | | | MD | | | | +---------+---------+---------+---------+---------+---------+---------+---------+---------+ | VITAMIN | 6115592 | | Active | | David W | | Vitamin | | | D | 6 | /14 | | /15 | Theen | | D | | | DEFICIE | (SNOMED | | | | MD FACE | | deficie | | | NCY | CT) | | | | FACP | | ncy | | +---------+---------+---------+---------+---------+---------+---------+---------+---------+ | OBESITY | 7347731 | | Active | | David W | | Obesity | | | , BMI | 01 | /14 | | /15 | Theen | | | | | 35-39.9 | (SNOMED | | | | MD FACE | | | | | , ADULT | CT) | | | | FACP | | | | +---------+---------+---------+---------+---------+---------+---------+---------+---------+ | DIABETE | 8321142 | | Removed | | David W | | Diabeti | | | S | 473252 | /14 | | /15 | Theen [...] s | | +---------+---------+---------+---------+---------+---------+---------+---------+---------+ | HALLUX | 9032816 | | Inactiv | | Kali | [...] | | | +---------+---------+---------+---------+---------+---------+---------+---------+---------+ | HAMMER | 4518654 | | Inactiv | | Kali | [...] | | | +---------+---------+---------+---------+---------+---------+---------+---------+---------+ | ONYCHOM | 2646057 | | Inactiv | | Kali | [...] ropathy | | +---------+---------+---------+---------+---------+---------+---------+---------+---------+ | DIABETE | 2104148 | | Inactiv | | Kali | [...] s | | +---------+---------+---------+---------+---------+---------+---------+---------+---------+ | SCREENI | 7953852 | | Resolve | | Lauranc | | Depress | | | NG FOR | 06 | /10 | d | /10 | e W | | ion | | | DEPRESS | (SNOMED | | | | Lila | | screeni | | | ION | CT) | | | | MD | | ng | | +---------+---------+---------+---------+---------+---------+---------+---------+---------+ | SCREENI | 1168145 | | Resolve | | Lauranc | [...] | | | +---------+---------+---------+---------+---------+---------+---------+---------+---------+ | SCREENI | 8405296 | | Resolve | | Lauranc | [...] ng | | +---------+---------+---------+---------+---------+---------+---------+---------+---------+ | SCREENI | 5877358 | | Removed | | Geetha | | Alcohol | | | NG FOR | | / | | / | Patrick | | | | | ALCOHOL | (SNOMED | | | | [facility] | | consump | | | ISM | CT) | | | | | | tion | | | | | | | | | | screeni | | | | | | | | | | ng | | +---------+---------+---------+---------+---------+---------+---------+---------+---------+ | SCREENI | 3092707 | | Removed | | Geetha | | Screeni | | | NG FOR | | / | | | [place] | | ng for | | | UNSPECI | (SNOMED | | | | [facility]MA | | disorde | | | FIED | CT) | | | | | | r | | | CONDITI | | | | | | | | | | ON | | | | | | | | | +---------+---------+---------+---------+---------+---------+---------+---------+---------+ | SCREENI | 4237925 | | Removed | | Geetha | | Depress | | | NG FOR | | | | /10 | [place] | | ion | | | DEPRESS | (SNOMED | | | | [facility]MA | | screeni | | | ION | CT) | | | | | | ng | | +---------+---------+---------+---------+---------+---------+---------+---------+---------+ | RENAL | 6896350 | | Active | | Lauranc | [...] e | | +---------+---------+---------+---------+---------+---------+---------+---------+---------+ | EDEMA | 1166153 | | Active | | Lauranc | | Edema | | | | 08 | /15 | | / | e W | | | | | | (SNOMED | | | | Lila | | | | | | CT) | | | | MD | | | | +---------+---------+---------+---------+---------+---------+---------+---------+---------+ | RENAL | 8699741 | | Active | | Luz | [...] e | | +---------+---------+---------+---------+---------+---------+---------+---------+---------+ | PERIPHE | 0813431 | | Active | | Lauranc | [...] disease | | +---------+---------+---------+---------+---------+---------+---------+---------+---------+ | CANDIDI | 9388956 | | Active | | Susanna | | Candidi | | | ASIS, | | / | | / | Medel | | asis of | | | SKIN | (SNOMED | | | | MD | | skin | | | | CT) | | | | | | | | +---------+---------+---------+---------+---------+---------+---------+---------+---------+ | DYSURIA | 6058586 | | Active | | Erica | | Dysuria | | | | 1 | /31 | | /31 | Paul | | | | | | (SNOMED | | | | [place] | | | | | | CT) | | | | | | | | +---------+---------+---------+---------+---------+---------+---------+---------+---------+ | VAGINIT | 7657114 | | Active | | Erica | | Vaginit | | | IS | 1 | / | | /31 | Paul | | is | | | | (SNOMED | | | | MA | | | | | | CT) | | | | | | | | +---------+---------+---------+---------+---------+---------+---------+---------+---------+ | RLQ | 0467785 | | Resolve | | Lauranc | | Right | | | PAIN | 02 | | d | /11 | e W | | lower | | | | (SNOMED | | | | Lila | | quadran | | | | CT) | | | | MD | | t pain | | +---------+---------+---------+---------+---------+---------+---------+---------+---------+ | ABDOMIN | 3054473 | | Resolve | | Lauranc | [...] | | | +---------+---------+---------+---------+---------+---------+---------+---------+---------+ | KNEE | 0164835 | | Active | | Lauranc | | Knee | | | PAIN | 3 | /14 | | /14 | e W | | pain | | | | (SNOMED | | | | Lila | | | | | | CT) | | | | MD | | | | +---------+---------+---------+---------+---------+---------+---------+---------+---------+ | Questio | 7288297 | | Correct | | Lauranc | [...] | | | +---------+---------+---------+---------+---------+---------+---------+---------+---------+ | VERTEBR | 7450745 | | Active | | Lauranc | [...] e | | +---------+---------+---------+---------+---------+---------+---------+---------+---------+ | VERTIGO | 4674952 | | Active | | Luz | | Vertigo | | | | 01 | / | | /03 | Asad | | | | | | (SNOMED | | | | RN | | | | | | CT) | | | | | | | | +---------+---------+---------+---------+---------+---------+---------+---------+---------+ | CHEST | 0749160 | | Inactiv | | Genny | | Chest | | | PAIN | 9 | | e | /02 | Kaufman | | pain | | | | (SNOMED | | | | | | | | | | CT) | | | | | | | | +---------+---------+---------+---------+---------+---------+---------+---------+---------+ | CHEST | 6441302 | | Inactiv | | Lauranc | | Acute | | | PAIN, | 01 | | e | /14 | e [...] fied | | +---------+---------+---------+---------+---------+---------+---------+---------+---------+ | CEREBRO | 5513637 | | Active | | Rogers | | 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 | (SNOMED | | | | MD | | r | | | DISEASE | CT) | | | | | | disease | | +---------+---------+---------+---------+---------+---------+---------+---------+---------+ | History | 4683682 | | Active | | Rogers | | Cerebra | | | of | | / | | | Laith | | l [...] | | | +---------+---------+---------+---------+---------+---------+---------+---------+---------+ | DIABETI | 8481437 | | Active | | Rogers | [...] thy | | +---------+---------+---------+---------+---------+---------+---------+---------+---------+ | HYPERLI | 5504414 | | Active | | Rogers | | Hyperli | | | PIDEMIA | 4 | 30 | | | Laith | | pidemia | | | | (SNOMED | | | | MD | | | | | | CT) | | | | | | | | +---------+---------+---------+---------+---------+---------+---------+---------+---------+ | History | 7585898 | | Active | | Rogers | [...] e | | +---------+---------+---------+---------+---------+---------+---------+---------+---------+ | CEREBRA | 1957565 | | Correct | | Rogers | | Cerebra | | | L | | | ion | /16 | Laith | [...] s | | +---------+---------+---------+---------+---------+---------+---------+---------+---------+ | ABDOMIN | 9373038 | | Removed | | Patricia | [...] | | | +---------+---------+---------+---------+---------+---------+---------+---------+---------+ | RLQ | 5610474 | | Removed | | Patricia | [...] fied | | +---------+---------+---------+---------+---------+---------+---------+---------+---------+ | CARPAL | 8216748 | | Active | | Rogers | | Carpal | | | TUNNEL | 9 | /25 | | /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 | | | | MD | | 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, LEFT | CT) | | | | | | e | | +---------+---------+---------+---------+---------+---------+---------+---------+---------+ | Questio | 7492972 | | Removed | | Rogers | | Vertebr | | | n of | 08 | | | / | Laith | [...] | | | +---------+---------+---------+---------+---------+---------+---------+---------+---------+ | GAIT | 2525450 | | Active | | Rogers | | Abnorma | | | IMBALAN | 2 | /25 | | / | Laith | | l gait | | | CE | (SNOMED | | | | MD | | | | | | CT) | | | | | | | | +---------+---------+---------+---------+---------+---------+---------+---------+---------+ | BRAIN | 3182854 | | Correct | | Rogers | [...] e | | +---------+---------+---------+---------+---------+---------+---------+---------+---------+ | PARESTH | 4188046 | | Active | | Rogers | | Paresth | | | ESIA, | 04 | | | / | Laith | | esia of | | | HANDS | (SNOMED | | | | MD | | hand | | | | CT) | | | | | | | | +---------+---------+---------+---------+---------+---------+---------+---------+---------+ | PERIPHE | 8978162 | | Correct | | Rogers | | Periphe | | | RAL | 06 | | ion | /25 | Laith | | ral | | | NEUROPA | (SNOMED | | | | MD | | nerve | | | THY | CT) | | | | | | disease | | +---------+---------+---------+---------+---------+---------+---------+---------+---------+ | THYROID | 5863207 | | Active | | Luz | | Thyroid | | | NODULE | 05 | /20 | | /20 | Runnemede | | nodule | | | | (SNOMED | | | | [facility] | | | | | | CT) | | | | | | | | +---------+---------+---------+---------+---------+---------+---------+---------+---------+ | TIA | 5931766 | | Active | | Lauranc | [...] a | | +---------+---------+---------+---------+---------+---------+---------+---------+---------+ | SYNCOPE | 0807302 | | Active | | Lauranc | | Syncope | | | | 07 | / | | /10 | e W | | | | | | (SNOMED | | | | Lila | | | | | | CT) | | | | MD | | | | +---------+---------+---------+---------+---------+---------+---------+---------+---------+ | GASTROP | 9875988 | | Active | | Lauranc | | 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 | | | | (SNOMED | | | | Lila | | syndrom | | | | CT) | | | | MD | | e | | +---------+---------+---------+---------+---------+---------+---------+---------+---------+ | CONSTIP | 4449719 | | Active | | Lauranc | | Chronic | | | ATION, | 09 | /08 | | /08 | e W | | | | | CHRONIC | (SNOMED | | | | Lila | | constip | | | | CT) | | | | MD | | ation | | +---------+---------+---------+---------+---------+---------+---------+---------+---------+ | POSTHER | 0375041 | | Active | | Lauranc | | Posther | | | 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 | (SNOMED | | | | Lila | | neuralg | | | IA | CT) | | | | MD | | ia | | +---------+---------+---------+---------+---------+---------+---------+---------+---------+ | DIZZINE | 6519462 | | Active | | Lauranc | | Dizzine | | | SS | 03 | /08 | | /08 | e W | | ss | | | | (SNOMED | | | | Lila | | | | | | CT) | | | | MD | | | | +---------+---------+---------+---------+---------+---------+---------+---------+---------+ | DEHYDRA | 3321143 | | Active | | Lauranc | | Dehydra | | | TION | 6 | /08 | | /08 | e W | | tion | | | | (SNOMED | | | | Lila | | | | | | CT) | | | | MD | | | | +---------+---------+---------+---------+---------+---------+---------+---------+---------+ | DIABETE | 1648331 | | Active | | Lauranc | [...] | | | +---------+---------+---------+---------+---------+---------+---------+---------+---------+ | HYPERTE | 7132040 | | Active | | Lauranc | [...] take 1-2 | | | DIMENHYDRI | 5256798678 | Christen Ramirez | | 50 MG TABS | tabs 4 | | | MARCELA | 1 | [place] | | | times per | | | | | BROKE BEATER MACHINE OPERATOR | | | day as | | | | | | | | needed | | | | | | + + + + + + + + | VICTOZA 18 | | | | LIRAGLUTID | 8310488214 | Jesus | | MG/3ML | | | | E | 2 | Ethan MD | | SOPN | | | | | | | + + + + + + + + | BASAGLAR | 1 pen | | | INSULIN | 5085311833 | Christen Ramirez | | KWIKPEN | every 3 | | | GLARGINE | 9 | [place] | | 100 | days 56 | | | | | BROKE BEATER MACHINE OPERATOR | | UNIT/ML | units q | [...] by mouth | | | MECLIZINE | 4367799714 | Bailey W | | HCL 25 [...] mix and | | | NA | [id number] | Maulik | | BOWEL PREP | [...] take 2 | | | GABAPENTIN | 4732317849 | Bailey W | | 300 MG [...] Inject 0.6 | | | LIRAGLUTID | 5780258047 | Christen Ramirez | | MG/3ML | mg daily | | | E | 2 | [place] | | SOPN | | | | | | BROKE BEATER MACHINE OPERATOR | + + + + + + + + | ONDANSETRO | 1 tab | | | ONDANSETRO | 4145332927 | Kali | | N HCL 4 MG | every 4 | | | N HCL | 3 | Palacio DPM | | TABS | hours | | | | | | + + + + + + + + | VICTOZA 18 | | | | LIRAGLUTID | 8977185116 | Bailey W | | MG/3ML | [...] 1 tab | | | GABAPENTIN | 2521801784 | Jesus | | 300 MG | po tid . | | | | 0 | Ethan MD | | CAPS | Pt states | | | | | | | | as needed | | | | | | + + + + + + + + | COLACE 100 | 1 tab by | | | DOCUSATE | 1693010477 | Kali | | MG CAPS | mouth | | | SODIUM | 0 | Palacio DPM | | | daily at | | | | | | | | bedtime | | | | | | + + + + + + + + | CLONAZEPAM | Take one | | | CLONAZEPAM | 1329106507 | Edna | | 0.5 MG | [...] take 1 | | | ASPIRIN | 1666332707 | Rogers | | 325 MG | [...] 1 tab | | | PREGABALIN | 0710953656 | Laurance W | | MG CAPS | three | | | | 3 | Lila MD | | | times per | | | | | | | | day | | | | | | + + + + + + + + | GLUCOPHAGE | 1 tab one | | | METFORMIN | 9382147289 | Laurance W | | XR 500 MG | time per | | | HCL | 0 | Lila MD | | [id number] | day | | | | | | + + + + + + + + | HUMALOG | BS <150 - | | | INSULIN | 2215531872 | Christen Ramirez | | 100 | No insulin | | | LISPRO | 1 | [place] | | UNIT/ML | BS | | | (HUMAN) | | BROKE BEATER MACHINE OPERATOR | | SOLN | 150-200 | | [...] 50 units | | | INSULIN | 9820495773 | Pako | | UNIT/ML | once per | | | GLAVERNA | 3 | Ramesh | | GEOVANI | mikaela. Pt | | | | | f BROKE BEATER MACHINE OPERATOR | | | states she | | | | | | | | is taking | | | | | | | | 56 units | | | | | | | | every AM | | | | | | + + + + + + + + | NITROFURAN | Take one | | | NITROFURAN | 3753738499 | Edna | | TOIN | capsule [...] | One | | | ERGOCALCIF | 9606543032 | Mariano | | QUANG 49417 | capsule by | | | QUANG [...] take 2 | | | GABAPENTIN | 9286645266 | Mariano | | 300 MG | [...] 10ml QAM | | | METFORMIN | 1820852671 | Mariano | | MG/5ML | Liquid due | | | HCL | 2 | Ariella | | SOLN | to | | | | | CCMA | | | Dysphagia | | | | | | + + + + + + + + | ASPIRIN EC | take 1 | | | ASPIRIN | 4674676193 | Rogers | | 325 MG | tablet | | | | 0 | Laith MD | | TBEC | daily | | | | | | + + + + + + + + | RELION | Use to | | | GLUCOSE | 2950662605 | Kali | | BLOOD | test BG | | | BLOOD | 4 | Palacio DPM | | GLUCOSE | one time | | | | | | | TEST STRP | per day | | | | | | + + + + + + + + | NITROFURAN | | | | NITROFURAN | 6206340609 | Edna | | TOIN | | [...] one tablet | | | DOCUSATE | 2824769222 | Bailey W | | MG CAPS | by mouth | | | SODIUM | 0 | Lila MD | | | at bedtime | | | | | | + + + + + + + + | BIOTIN 1 | Take one | | | BIOTIN | 7780534417 | Jesus | | MG CAPS | daily in | | | | 2 | Ethan MD | | | the AM | | | | | | + + + + + + + + | BACTRIM DS | 1 by mouth | | | TRIMETHOPR | 0100018242 | Bailey W | | 800-160 | twice a | | | IM-SULFAME | 1 | Lila MD | | MG TABS | day for 3 | | | THOXAZOLE | | | | | days | | | | | | + + + + + + + + | ASPIRIN 81 | one time | | | ASPIRIN | 6343554745 | Mariano | | MG TABS | per day | | | | 5 | Ariella | | | | | | | | CCMA | + + + + + + + + | GABAPENTIN | two times | | | GABAPENTIN | 0052641738 | Mariano | | 100 MG | per day | | | | 1 | Ariella | | CAPS | | | | | | CCMA | + + + + + + + + | BIOTIN 1 | | | | BIOTIN | 1869836563 | Kali | | MG CAPS | | | | | 2 | Palacio DPM | + + + + + + + + | PIOGLITAZO | Take 1 tab | | | PIOGLITAZO | 4149286699 | Jesus | | NE HCL 15 [...] two times | | | MECLIZINE | 7525324394 | Mariano | | HCL 25 MG [...] take 1 | | | ASPIRIN | 0907334585 | Mariano | | 325 MG | tablet | | | | 0 | Ariella | | TBEC | daily | | | | | CCMA | + + + + + + + + | PIOGLITAZO | Take 1 tab | | | PIOGLITAZO | 0886666885 | Christen Ramirez | | NE HCL 15 | by mouth | | | NE HCL | 0 | [place] | | MG TABS | one time | | | | | BROKE BEATER MACHINE OPERATOR | | | per day in | | | | | | | | the AM | | | | | | + + + + + + + + | NEURONTIN | take 1 tab | | | GABAPENTIN | [id number] | Franciscoance W | | 300 MG | po tid | | | | 0 | Lila MD | | CAPS | | | | | | | + + + + + + + + | DIOVAN 160 | one time | | | VALSARTAN | [id number] | Mariano | | MG TABS | per day | | | | 0 | Ariella | | | | | | | | CCMA | + + + + + + + + | ASPIRIN | take 1 | | | ASPIRIN | [id number] | Bailey W | | 325 MG | tablet by | | | | 1 | Llia MD | | TABS | mouth | [...] Take one | | | POTASSIUM | [id number] | Jesus | | CHLORIDE | cap daily | | | CHLORIDE | 5 | Ethan MD | | ER 10 MEQ | in the AM | | | | | | | CR-CAPS | | | | | | | + + + + + + + + | KEFLEX 500 | 1 pill | | | CEPHALEXIN | [id number] | Tiesha | | MG CAPS | twice a | | | | 0 | Ligonier MD | | | day for 7 | | | | | | | | days | | | | | | + + + + + + + + | GABAPENTIN | one tablet | | | GABAPENTIN | [id number] | Bailey W | | 100 MG [...] | | | | BLOOD | | Bailey W | | PRESSURE | | | | PRESSURE | | Lila MD | | * | | | | * | | | + + + + + + + + | MECLIZINE | 1 tab | | | MECLIZINE | 2910440437 | Franciscoance W | | HCL 25 MG | three | | | HCL | 1 | Lila MD | | TABS | times per | | | | | | | | day | | | | | | + + + + + + + + | NITROFURAN | Take one | | | NITROFURAN | [id number] | Edna | | TOIN | capsule [...] 0.02 ml | | | EXENATIDE | 5024674346 | Bailey W | | MCG PEN 5 | injection | | | | 1 | Lila MD | | MCG/0.02ML | two times | | | | | | | SOPN | per day | | | | | | + + + + + + + + | FLUCONAZOL | take one | | | FLUCONAZOL | 4338357599 | Franciscoance W | | E 150 [...] tab two | | | CILOSTAZOL | 0780871337 | Kali | | 100 MG | times per | | | | 1 | Hakeem DPM | | TABS | day | | | | | | + + + + + + + + | RIOMET 500 | 10ml's two | | | METFORMIN | 2073071471 | Laurance W | | MG/5ML | [...] D | | | | CHOLECALCI | 0851530670 | Kali | | 1000 UNIT | | | | FEROL | 0 | Hakeem DICKEYM | | TABS | | | | | | | + + + + + + + + | NEURONTIN | take 1 tab | | | GABAPENTIN | 7548797453 | Christen Ramirez | | 300 MG | po tid . 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 | | | as needed | | | | | | + + + + + + + + | PANTOPRAZO | Take one | | | PANTOPRAZO | 4191796407 | Edna | | LE SODIUM | tablet by | | | LE SODIUM | 0 | Hope CCMA | | 40 MG TBEC | mouth once | | | | | | | | daily | | | | | | + + + + + + + + | BYETTA 5 | Take as | | | EXENATIDE | 4751945982 | Christen Ramirez | | MCG PEN 5 | directed | | | | 1 | [place] | | MCG/0.02ML | once daily | | | | | BROKE BEATER MACHINE OPERATOR | | SOPN | in the AM [...] two times | | | METFORMIN | 4644399939 | Mariano | | HCL 1000 | per day | | | HCL | 1 | Ariella | | MG TABS | | | | | | CCMA | + + + + + + + + | GABAPENTIN | Take 2 | | | GABAPENTIN | 7993497820 | Bailey W | | 300 MG [...] TAKE ONE | | | PREGABALIN | 0082007411 | Kesha | | MG CAPS | [...] 1 TAB | | | BUSPIRONE | 6974495596 | Kali | | HCL 7.5 MG | three | | | HCL | 5 | Palacio DPM | | TABS | times per | | | | | | | | day | | | | | | + + + + + + + + | LANTUS 100 | 25 units | | | INSULIN | 6996800714 | Jesus | | UNIT/ML | two [...] two times | | | MECLIZINE | 9316591860 | Laurance W | | HCL 25 MG | per day | | | HCL | 2 | Lila MD | | TABS | | | | | | | + + + + + + + + | MECLIZINE | One tab by | | | MECLIZINE | 5021907871 | Laurance W | | HCL 25 [...] Take one | | | PROMETHAZI | 8843607468 | Edna | | NE HCL 25 [...] Take one | | | CHOLECALCI | 6413366004 | Jesus | | 1000 UNIT | tablet | | | FEROL | 0 | Ethan MD | | TABS | daily in | | | | | | | | the AM | | | | | | + + + + + + + + | POTASSIUM | | | | POTASSIUM | 4546854178 | Kali | | CHLORIDE | | | | CHLORIDE | 5 | Palacio DPM | | ER 10 MEQ | | | | | | | | CR-CAPS | | | | | | | + + + + + + + + | DULOXETINE | 1 tab one | | | DULOXETINE | 5475157661 | Bailey W | | HCL 30 MG | time per | | | HCL | 6 | Lila MD | | CPEP | day | | | | | | + + + + + + + + | PROCHLORPE | Insert one | | | PROCHLORPE | 0554291394 | Edna | | RAZINE 25 | [...] tab by | | | MECLIZINE | 6305742673 | Christen Ramirez | | HCL 25 MG | mouth | | | HCL | 0 | [place] | | TABS | three | | | | | BROKE BEATER MACHINE OPERATOR | | | times per | | | | | | | | day | | | | | | + + + + + + + + | VALSARTAN | Take one | | | VALSARTAN | 5684036449 | Christen Ramirez | | 160 MG | tablet | | | | 2 | [place] | | TABS | daily in | | | | | BROKE BEATER MACHINE OPERATOR | | | the AM | | | | | | + + + + + + + + | BASAGLAR | 56 Units | | | INSULIN | 0735314797 | Christen Ramirez | | KWIKPEN | every | | | GLARGINE | 9 | [place] | | 100 | morning | | | | | BROKE BEATER MACHINE OPERATOR | | UNIT/ML | | | | | | | | SOPN | | | | | | | + + + + + + + + | LASIX 80 | 1 tab by | | | FUROSEMIDE | 8291789935 | Christen Kena. | | MG TABS | mouth one | | | | 5 | [place] | | | time per | | | | | BROKE BEATER MACHINE OPERATOR | | | day in the | [...] every | | | FOR | | BROKE BEATER MACHINE OPERATOR | | BASAGLAR | morning | | | BASAGLAR | | | | KWIKPEN | with | | | KWIKPEN | | | | | Basaglar | | | | | | | | Kwikpen | | | | | | + + + + + + + + | PLAVIX 75 | 1 tab by | | | CLOPIDOGRE | 4310306456 | Christen J. | | MG TABS | mouth one | | | L | 0 | [place] | | | time per | | | BISULFATE | | BROKE BEATER MACHINE OPERATOR | | | day in the | | | | | | | | evening | | | | | | + + + + + + + + | NOVOLOG | 3U before | | | INSULIN | 2061569766 | Christen J. | | 100 | lunch and | | | ASPART | 1 | [place] | | UNIT/ML | 5U before | | | | | BROKE BEATER MACHINE OPERATOR | | SOLN | Dinner | | [...] x 1 | | | LIRAGLUTID | 6282747451 | Christen Ramirez | | MG/3ML | week then | | | E | 2 | [place] | | SOPN | 1.2 mg | | | | | BROKE BEATER MACHINE OPERATOR | | | daily per | | | | | | | | week | | | | | | + + + + + + + + | LYRICA 100 | 1 tab | | | PREGABALIN | 7330461982 | Christen Ramirez | | MG CAPS | three | | | | 1 | [place] | | | times per | | | | | BROKE BEATER MACHINE OPERATOR | | | day. Pt | | | | | | | | states as | | | | | | | | needed | | | | | | + + + + + + + + | OMEPRAZOLE | Take one | | | OMEPRAZOLE | 0133975149 | Christen Ramirez | | 40 MG | by mouth | | | | 5 | [place] | | CPDR | one time | | | | | BROKE BEATER MACHINE OPERATOR | | | per day | | [...] Take 1 | | | GLIPIZIDE | 5897570556 | Christen Ramirez | | XL 2.5 MG | tablet | | | | 1 | [place] | | [id number] | p.o. | | | | | BROKE BEATER MACHINE OPERATOR | | | q.a.m. | | | | | | + + + + + + + + | BD INSULIN | Use 5 | | | INSULIN | 1233231503 | Christen Ramirez | | SYRINGE | times | | | SYRINGE-NE | 1 | [place] | | ULTRAFINE | daily to | | | EDLE U-100 | | BROKE BEATER MACHINE OPERATOR | | 29G X 1/2" | inject [...] 3U before | | | INSULIN | 8654209296 | Christen Ramirez | | 100 | lunch and | | | LISPRO | 0 | [place] | | UNIT/ML | 5U before | | | | | BROKE BEATER MACHINE OPERATOR | | SOLN | Dinner | | [...] Inject 0.6 | | | LIRAGLUTID | 2342346455 | Christen Ramirez | | MG/3ML | mg daily | | | E | 2 | [place] | | SOPN | | | | | | BROKE BEATER MACHINE OPERATOR | + + + + + + + + | LIPITOR 20 | take 1 | | | ATORVASTAT | 1883314695 | Christen Ramirez | | MG TABS | tablet by | | | IN CALCIUM | 0 | [place] | | | mouth | | | | | BROKE BEATER MACHINE OPERATOR | | | daily in | | | | | | | | the | | | | | | | | evening | | | | | | + + + + + + + + | BASAGLAR | 56 Units | | | INSULIN | 9028346817 | Christen Ramirez | | KWIKPEN | by mouth | | | GLARGINE | 9 | [place] | | 100 | every | | | | | BROKE BEATER MACHINE OPERATOR | | UNIT/ML | morning | | | | | | | SOPN | | | | | | | + + + + + + + + | VICTOZA 18 | 5 unit AM | | | LIRAGLUTID | 4290152803 | Christen Ramirez | | MG/3ML | and 5 | | | E | 2 | [place] | | SOPN | units PM | | | | | BROKE BEATER MACHINE OPERATOR | + + + + + + + + | BASAGLAR | 1 pen | | | INSULIN | 4216322655 | Christen Ramirez | | KWIKPEN | every 3 | | | GLARGINE | 9 | [place] | | 100 | days 56 | | | | | BROKE BEATER MACHINE OPERATOR | | UNIT/ML | units q | | | | | | | SOPN | Day | | | | | | + + + + + + + + | BYETTA 5 | Take as | | | EXENATIDE | 8772312768 | Christen Ramirez | | MCG PEN 5 | directed | | | | 1 | [place] | | MCG/0.02ML | once daily | | | | | BROKE BEATER MACHINE OPERATOR | | SOPN | in the AM | | | | | | + + + + + + + + | LANTUS 100 | 56 units | | | INSULIN | 6216943105 | Kaykay | | UNIT/ML | qAM | | | GLARGINE | 3 | Mora DO | | SOLN | | | | | | | + + + + + + + + | SUPREP | mix and | | | NA | 0027167336 | Emeka | | BOWEL PREP | [...] pill BID | | | DOCUSATE | [id number] | Christen Ramirez | | MG CAPS | | | | SODIUM | 0 | [place] | | | | | | | | BROKE BEATER MACHINE OPERATOR | + + + + + + + + | HUMALOG | BS <150 - | | | INSULIN | 4598781508 | Tiesha | | 100 | No [...] Use daily | | | INSULIN | 4584561055 | Tiesha | | NEEDLE | to [...] Use daily | | | GLUCOSE | 1713032707 | Tiesha | | BLOOD | to check | | | BLOOD | 4 | Ligonier MD | | GLUCOSE | blood | | | | | | | TEST STRP | sugar | | | | | | + + + + + + + + | DIABETIC | 1 pair per | | | FOOT CARE | 0016694480 | Tiesha | | INSOLES | custom [...] 1 pill | | | CEPHALEXIN | 8734073673 | Pako | | MG CAPS | twice a | | | | 0 | Middlekauf | | | day for 7 | | | | | f BROKE BEATER MACHINE OPERATOR | | | days | | | | | | + + + + + + + + | BYETTA 5 | 0.02 ml | | | EXENATIDE | 3523843474 | Bailey W | | MCG PEN 5 | injection | | | | 1 | Lila MD | | MCG/0.02ML | two times | | | | | | | SOPN | per day | | | | | | + + + + + + + + | LYRICA 100 | 1 tab | | | PREGABALIN | 3016743552 | Franciscoance W | | MG CAPS | three | | | | 8 | Lila MD | | | times per | | | | | | | | day | | | | | | + + + + + + + + | DRAMAMINE | take 1-2 | | | DIMENHYDRI | 5640664253 | Bailey W | | 50 MG [...] Use 5 | | | INSULIN | 1814353503 | Bailey W | | SYRINGE | [...] tab by | | | CLOPIDOGRE | 3585489350 | Laurance W | | MG TABS | mouth one | | | L | 4 | Lila MD | | | time per | | | BISULFATE | | | | | day | | | | | | + + + + + + + + | LANTUS 100 | 25 units | | | INSULIN | 0111147517 | Laurance W | | UNIT/ML | two times | | | GLARGINE | 3 | Lila MD | | SOLN | per day | | | | | | + + + + + + + + | LASIX 80 | 1 tab by | | | FUROSEMIDE | 2179301040 | Laurance W | | MG TABS | mouth one | | | | 5 | Lila MD | | | time per | | | | | | | | day | | | | | | + + + + + + + + | FUROSEMIDE | 1 tab one | | | FUROSEMIDE | 7761403417 | Laurance W | | 40 MG | time per | | | | 0 | Lila MD | | TABS | day | | | | | | + + + + + + + + | BUSPIRONE | 1 TAB | | | BUSPIRONE | 7226253399 | Laurance W | | HCL 7.5 MG | three | | | HCL | 5 | Lila MD | | TABS | times per | | | | | | | | day | | | | | | + + + + + + + + | COLACE 100 | 1 tab by | | | DOCUSATE | 2423926285 | Laurance W | | MG CAPS | mouth | | | SODIUM | 0 | Lila MD | | | daily at | | | | | | | | bedtime | | | | | | + + + + + + + + | BACTRIM DS | 1 by mouth | | | TRIMETHOPR | 4942148318 | Laurance W | | 800-160 | twice a | | | IM-SULFAME | 1 | Lila MD | | MG TABS | day for 3 | | | THOXAZOLE | | | | | days | | | | | | + + + + + + + + | LYRICA 50 | Take 1 tab | | | PREGABALIN | 5305156973 | Laurance W | | MG CAPS [...] tab one | | | METFORMIN | 6588185656 | Laurance W | | XR 500 MG | time per | | | HCL | 0 | Lila MD | | [id number] | day | | | | | | + + + + + + + + | NYSTATIN-T | Apply thin | | | NYSTATIN-T | 0361040684 | Laurance W | | RIAMCINOLO | layer to | | | RIAMCINOLO | 0 | Lila MD | | NE | affected | | | NE | | | | 862470-2.1 | area BID | | | | | | | UNIT/GM-% | prn for | | | | | | | CREA | itching | | | | | | + + + + + + + + | CILOSTAZOL | 1 tab two | | | CILOSTAZOL | 8089325689 | Laurance W | | 100 MG | times per | | | | 1 | Lila MD | | TABS | day | | | | | | + + + + + + + + | OMEPRAZOLE | Take one | | | OMEPRAZOLE | 6704246600 | Laurance W | | 40 MG [...] take 1 | | | ATORVASTAT | 7458863380 | Laurance W | | MG TABS | tablet by | | | IN CALCIUM | 0 | Lila MD | | | mouth | | | | | | | | daily | | | | | | + + + + + + + + | MECLIZINE | 1 tab | | | MECLIZINE | 0143794318 | Laurance W | | HCL 25 MG | three | | | HCL | 1 | Lila MD | | TABS | times per | | | | | | | | day | | | | | | + + + + + + + + | LANTUS 100 | 56 units | | | INSULIN | 6540555356 | Laurance W | | UNIT/ML | in the | | | GLARGINE | 3 | Lila MD | | SOLN | morning | | | | | | + + + + + + + + | ONDANSETRO | 1 tab | | | ONDANSETRO | 8909830091 | Bailey W | | N HCL 4 MG | every 4 | | | N HCL | 3 | Lila MD | | TABS | hours | | | | | | + + + + + + + + | PIOGLITAZO | Take 1 tab | | | PIOGLITAZO | 5211535247 | Franciscoance W | | NE HCL 15 | by mouth | | | NE HCL | 0 | Lila MD | | MG TABS | one time | | | | | | | | per day | | | | | | + + + + + + + + | RELION | Use to | | | GLUCOSE | 6611151772 | Bailey W | | BLOOD | test BG | | | BLOOD | 4 | Lila MD | | GLUCOSE | one time | | | | | | | TEST STRP | per day | | | | | | + + + + + + + + | GABAPENTIN | Take 2 | | | GABAPENTIN | 7681785540 | Bailey W | | 300 MG [...] TAB one | | | VALSARTAN | 8041603693 | Bailey W | | 160 MG | time per | | | | 2 | Lila MD | | TABS | day | | | | | | + + + + + + + + | LYRICA 50 | TAKE ONE | | | PREGABALIN | 1215989365 | Bailey W | | MG CAPS [...] 0.2 ml | | | EXENATIDE | 4362380607 | Laurance W | | MCG PEN 5 | injection | | | | 1 | Lila MD | | MCG/0.02ML | two times | | | | | | | SOPN | per day | | | | | | + + + + + + + + | VICTOZA 18 | 1.2 mg | | | LIRAGLUTID | 6662122535 | Laurance W | | MG/3ML | injected | | | E | 3 | Lila MD | | SOPN | martin | | | | | | + + + + + + + + | KEFLEX 500 | one po TID | | | CEPHALEXIN | 9871356589 | Susanna | | MG CAPS | | | | | 0 | Gianfranco MD | + + + + + + + + | FLUCONAZOL | take one | | | FLUCONAZOL | 3311252344 | Susanna | | E 150 MG | tablet PO | | | E | 0 | Gianfranco MD | | TABS | x 1 repeat | | | | | | | | in 3 days | | | | | | + + + + + + + + | LYRICA 50 | 1 tab | | | PREGABALIN | 7337980174 | Laurance W | | MG CAPS | three | | | | 3 | Lila MD | | | times per | | | | | | | | day | | | | | | + + + + + + + + | GABAPENTIN | Take 2 | | | GABAPENTIN | 6361207681 | Laurance W | | 300 MG [...] tab one | | | DULOXETINE | 2229898016 | Laurance W | | HCL 30 MG | time per | | | HCL | 6 | Lila MD | | CPEP | day | | | | | | + + + + + + + + | RIOMET 500 | 10ml's two | | | METFORMIN | 0182344044 | Laurance W | | MG/5ML | [...] TAB one | | | VALSARTAN | 8439656436 | Laurance W | | MG TABS | time per | | | | 0 | Lila MD | | | day | | | | | | + + + + + + + + | MECLIZINE | One tab by | | | MECLIZINE | 2135976896 | Laurance W | | HCL 25 [...] take 2 | | | GABAPENTIN | 3802179901 | Laurance W | | 300 MG [...] tab one | | | VALSARTAN | 1846602977 | Laurance W | | MG TABS | time per | | | | 4 | Lila MD | | | day | | | | | | + + + + + + + + | VICTOZA 18 | 0.6 mg | | | LIRAGLUTID | 9962197832 | Laurance W | | MG/3ML | [...] tab one | | | SITAGLIPTI | 0833350754 | Laurance W | | 100 MG | time per | | | N | 8 | Lila MD | | TABS | day | | | PHOSPHATE | | | + + + + + + + + | GABAPENTIN | 2 tabs two | | | GABAPENTIN | 2453539749 | Laurance W | | 300 MG | times per | | | | 0 | Lila MD | | CAPS | day | | | | | | + + + + + + + + | DIOVAN 160 | 1 by mouth | | | VALSARTAN | 8514426427 | Laurance W | | MG TABS | every day | | | | 0 | Lila MD | + + + + + + + + | GABAPENTIN | 1 tab at | | | GABAPENTIN | 0133101676 | Laurance W | | 100 MG [...] 28 units | | | INSULIN | 1187498993 | Laurance W | | UNIT/ML | two times | | | GLARGINE | 0 | Lila MD | | SOLN | per day | | | | | | + + + + + + + + | LISINOPRIL | take 1 | | | LISINOPRIL | 8679409849 | Rogers | | 20 MG | tablet by | | | | 1 | Laith LUIS | | TABS | mouth | | | | | | | | daily | | | | | | + + + + + + + + | LANTUS 100 | 56 units | | | INSULIN | 9727894972 | Bailey W | | UNIT/ML | daily | | | GLARGINE | 0 | Lila LUIS | | SOLN | | | | | | | + + + + + + + + | GABAPENTIN | 1 by mouth | | | GABAPENTIN | 1971208131 | Bailey W | | 100 MG | one time | | | | 1 | Lila LUIS | | CAPS | per day | [...] | One | | | ERGOCALCIF | 2076407240 | Laurance W | | QUANG 35379 | capsule by | | | QUANG [...] by mouth | | | LISINOPRIL | 3886669594 | Laurance W | | 5 MG TABS | one time | | | | 0 | Lila MD | | | per day | | | | | | + + + + + + + + | RIOMET 500 | 10ml QAM | | | METFORMIN | 7880698250 | Laurance W | | MG/5ML | Liquid due | | | HCL | 2 | Lila MD | | SOLN | to | | | | | | | | Dysphagia | | | | | | + + + + + + + + | COLACE 100 | one tablet | | | DOCUSATE | 6784648373 | Laurance W | | MG CAPS | by mouth | | | SODIUM | 0 | Lila MD | | | at bedtime | | | | | | + + + + + + + + | MECLIZINE | 1 by mouth | | | MECLIZINE | 7150176749 | Laurance W | | HCL 25 [...] one tablet | | | METFORMIN | 6845872693 | Laurance W | | HCL 1000 | by mouth | | | HCL | 0 | Lila MD | | MG TABS | twice a | | | | | | | | day | | | | | | + + + + + + + + | ASPIRIN 81 | 1 by mouth | | | ASPIRIN | 1532614367 | Bailey W | | MG TABS | every day | | | | 5 | Lila MD | + + + + + + + + | GABAPENTIN | one tablet | | | GABAPENTIN | 4947874038 | Bailey W | | 100 MG [...] | | | | | | | BROKE BEATER MACHINE OPERATOR | + + + + + + [...] +------+------+-------+------+-------+------+ + + + | Rx Refill: Taryn Request for MECLIZINE 25MG TAB | + + + +--------+ +---+---+---+ + | | ESM_RR | [id number] | | | B | e-scripts | [...] | | | | | | | [place]*` | | | | | | | | [id number] | | | | | | | | `[id number] | | | | | | | [...] +---+---+---+ + + + | Rx Refill: Daisyx Request for RELION PEN [id number] MIS | + + + +--------+ +---+---+---+ + | | ESM_RR | [phone] | | | B | e-scripts | | | | 9`RELION | | | | messenger | | | | PEN | | | | refill | | | | [id number] | | | | request | | [...] | | | | | | | BASNATASHAAR | | | | | | | | MARY.`` | | | | | | | | 1`0`09/04/ | | | | | | | | 2016`10/15 | | | | | | | | /2016`[facility] | | | | | | | | art - | | | | | | | | [place]*` | | | | | | | | [phone] | | | | | | | | `[id number] | | | | | | | | 34`851218` | | | | | | | | RELION PEN | | | | | | | | [id number] | | | | | | | [...] | | | | | | | BASNATASHAAR | | | | | | | | MARY. | | | | | + +--------+ +---+---+---+ + + + | Rx Refill: eRx Request for VALSARTAN 160MG TAB | + + + +--------+ +---+---+---+ + | | ESM_RR | [id number] | | | B | e-scripts | [...] | | | | | | | [place]*` | | | | | | | | [id number] | | | | | | | | `[id number] | | | | | | | [...] +--------+ +---+---+---+ + | | E[facility]_RR | [phone] | | | B | e-scripts | [...] | | | | | | | [place]*` | | | | | | | | [id number] | | | | | | | | `[id number] | | | | | | | [...] Rx Refill: eRx Request for RELION PEN [id number] MIS | + + + +--------+ +---+---+---+ + | | ESM_RR | [phone] | | | B | e-scripts | | | | 0`RELION | | | | messenger | | | | PEN | | | | refill | | | | [id number] | | | | request | | [...] | | | | | | | 1``09/04/ | | | | | | | | 2016`10/15 | | | | | | | | /2016`[facility] | | | | | | | | art - | | | | | | | | [place]*` | | | | | | | | [id number] | | | | | | | | `[id number] | | | | | | | | 34`186893` | | | | | | | | RELION PEN | | | | | | | | [id number] | | | | | | | [...] +--------+ +---+---+---+ + | | ESM_RR | [phone] | | | B | e-scripts | [...] | | | | | | | [place]*` | | | | | | | | [id number] | | | | | | | | `[id number] | | | | | | | [...] +--------+ +---+---+---+ + | | E[facility]_RR | [id number] | | | B | e-scripts | [...] | | | | | | | [id number] | | | | | | | | `[id number] | | | | | | | | 59`619568` | | | | | | | [...] +--------+ +---+---+---+ + | | ESM_RR | [id number] | | | B | e-scripts | [...] | | | | | | | [id number] | | | | | | | | `[id number] | | | | | | | [...] +--------+ +---+---+---+ + | | ESM_RR | [id number] | | | B | e-scripts | [...] | | | | | | | 2016`06/11 | | | | | | | | /2016`[facility] | | | | | | | | art - | | | | | | | | [place]*` | | | | | | | | [phone] | | | | | | | | `[phone] | | | | | | | [...] +--------+ +---+---+---+ + | | ESM_RR | [phone] | | | B | e-scripts | [...] | | | | | | | `0`07/09/ | | | | | | | | 017`07/09/ | | | | | | | | 2017`[facility] | | | | | | | | rt - | | | | | | | | [place]*` | | | | | | | | [phone] | | | | | | | | `[phone] | | | | | | | [...] Visit: DAISY f/u | + + + +--------+--------+---+---+---+ + [...] +--------+ +---+---+---+ + | | ESM_RR | [phone] | | | B | e-scripts | [...] | | | | | | | `0`//2 | | | | | | | | 016`05/10/ | | | | | | | | 2016`Roland[facility] | | | | | | | | rt - | | | | | | | | [place]*` | | | | | | | | [phone] | | | | | | | | `[phone] | | | | | | | [...] | Rx Refill: eRx Request for INSULIN [id number] MIS | + + + +--------+ +---+---+---+ + | | ESM_RR | [phone] | | | B | e-scripts | | | | 7`INSULIN | | | | messenger | | | | [id number] | | | | refill | | | | G | | | | request | | | | MIS`L29 | | | | | | | [...] | | | | | | | 016`Walmar | | | | | | | | t - | | | | | | | | [place]*` | | | | | | | | [id number] | | | | | | | | `[id number] | | | | | | | | 01`24936`I | | | | | | | | NSULIN | | | | | | | | [id number] | | | | | | | [...] +---+---+---+ + + + | Rx Refill: Daisyx Request for LYRICA 100MG CAP | + + + +--------+ +---+---+---+ + | | ESM_RR | [id number] | | | B | e-scripts | [...] | | | | | | | [place]*` | | | | | | | | [id number] | | | | | | | | `[id number] | | | | | | | | 568`25885` | | | | | | | [...] +--------+ +---+---+---+ + | | ESM_RR | [id number] | | | B | e-scripts | [...] | | | | | | | `0`08//2 | | | | | | | | 016`04/18/ | | | | | | | | 2016`Madisyn | | | | | | | | rt - | | | | | | | | [place]*` | | | | | | | | [id number] | | | | | | | | `[id number] | | | | | | | [...] | | | 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 | [...] | 03:30 PM | David Cornejo MD [facility], | | | | [address] [facility] | | | | [address], [place], [address], | | | | | + + + + | Referral | | Physical Therapy Evaluation | | | | [facility], [address] | | | | [address], [place], [address] | | | | | | | | | + + + + | Referral | | Physical Therapy Evaluation | | | | [facility], [address] | [address] | | | | [address], [place], [address] | | | | | | | | | + + + + | Referral | | GI Consult | | | | Emeka Clark MD, [address] | | | [address], | | | | [place], [address] | | | | | + + + + | Referral | | GI Consult | | | | Emeka Clark MD, [address] | | | [address], | | | | [place], [address] | | | | | + + + + | Referral | | Nephrology Evaluation | | | | Anisa Reeves, | | | | [address] | | | | [address], [place], [address] | | | | | | | | | + + + + | Referral | | Nephrology Evaluation | | | | Larry Galo, | | | | [address], | | | | [address], [place], [address] | | | | | | | | | + + + + | Referral | | Surgical Consult | | | | Jesus Long, [address] | | | [address], | | | | [place], [address] | | | | | + + + + | Referral | | Surgical Consult | | | | Jesus Long, [address] | | | | [address], | | | | [place], [address] | | | | | + + + + | Referral | | Endocrinology Consult | + + + + | Referral | | Podiatry Consult | | | | Kali Palacio, [address] | | | | [place], | | | | [place], [address] | | | | | + + + + | Referral | | Nephrology Evaluation | | | | Larry Galo, | | | | [address], | | | | [address], [place], [address] | | | | | | | | | + + + + | Referral | | Podiatry Consult | | | | Kali Palacio, [address] | | | | [place], | | | | [place], [address] | | | | | + + + + | Referral | | Nephrology Evaluation | | | | Larry Galo, | | | | [address], | | | | #[place], [place], [address] | | | | | | | | | + + + + | Referral | | Neurology Consult | | | | Magazino Phone #, | | | | [address] [facility] | | | | [place], [address] | | | | | + + + + | Referral | | Neurology Consult | | | | Magazino Phone #, | | | | [address] [facility] | | | | , [place], [address] | | | | | + + + + | Referral | | [facility] | | | | Dian Atkins, [address] | | | | [address], | | | | [place], [address] | | | | | + + + + | Referral | | [facility] | | | | Dian Scheduling, [address] | | | | [facility], | | | | [place], [address] | | | | | + + + + | Referral | | [facility] | | | | Dian Atkins, [address] | | | | [facility], | | | | [place], [address] | | | | | + + + + | Referral | | [facility] | | | | Dian Atkins, [address] | | | | [facility], | | | | [place], [address] | | | | | + + + + +---+ + | | Referral excluded from report: | +---+ + + + + + | Referral | | Physical Therapy Evaluation | | | | [facility], [address] | | | [address] | | | | [address], [place], [address] | | | | | | | | | + + + + | Referral | | Neurology Consult | | | | MD August Bourne, [address] | | | | [address], [place], | | | | [place], [address] | | | | | + + + + | Referral | | Neurology Consult | | | | Rogers MD Ozuna, [address] | | | | [address], [place], | | | | [place], [address] | | | | | + + + + | Referral | | Cardiology Consult | | | | MD Pelon Fay, | | | | [address] [facility] | | | | [address], [place], [address] | | | | | | | | | + + + + | Referral | | GI Consult | | | | [address] | | | | [address], [place], [place], [address] | | | | | | | | | + + + + | Referral | | Physical Therapy Evaluation | | | | [facility], [address] | | | [address] | | | | [address], [place], [address] | | | | | | | | | + + + + | Referral | | Diabetic Education - | | | | Individual | | | | [facility] Diabetes [facility], | | | | [address], | | | | [place], [address] | | | | | + + + + | Referral | | GI Consult | | | | [address] | | | | [address], [place], [place], [address] | | | | | | | | | + + + + | Referral | | US Soft Tissue Head/Neck | | | | Exam Dian | | | | Scheduling, [address] | | | | [place], [place], [place], | | | | [address] | | | | | + + + + | Referral | | Neurology Consult | | | | [place] [facility] | | | | [facility], [address] [facility], | | | | [place], [address] | | | | | + + + + | Referral | | VL Carotid-Cerebral Duplex | | | | Dian | | | | Scheduling, [address] | | | | [place], [place], | | | | [address] | | | | | + + + + | Referral | | Holter Monitor | | | | Dian Scheduling, [address] | | | | [address], | | | | [place], [address] | | | | | + + [...] Microalb/Creat Ratio UR, | | | | [place] | + + + + | Pending [...] | + + + + + | CPT-61501 | IV infusion -1st hr | | | | | (Rehydration) | | | + + + + + | CPT-80130 | Glucose by monitor | | | + + + + + | CPT-78366 | UA Dipstick | | | + + + + + | CPT-68122 | UA Dipstick | | | + + + + + | CPT-42511 | Initial Psych | | | | | Evaluation | | | + + + + + | CPT-57047 | Debride Nail, 6 or | | | | | more [address] | | | + + + + [...] | + + + + + | CPT-48848 | Trim Skin Lesions | | | | | [address] | | | + + + + + | CPT-23001 | UA Dipstick | | | + + + + + | CPT-05861 | Barbie Berry, 6 or | | | | | more [address] | | | + + + + [...] | + + + + + | CPT-74707 | [facility], 6 or | | | | | more [address] | | | + + + + [...] | + + + + + | CPT-79252 | MRA Head-WWO Con | | | + + + + + +---+ + | | Order excluded from report: | +---+ + + + + + + | CPT-09411 | Physical Therapy | | | | | Evaluation | | | + + + + + | [id number] | MU Generic Patient | | | | | Encounter Service | | | | | (from patch) | | | + + + + + | [id number] | [Recorded for CQM] | | | | | Documentation of | | | | | current medications | | | | | (procedure) | | | + + + + + | [id number] | [Recorded for CQM] | | | | | Documentation of | | | | | current medications | | | | | (procedure) | | | + + + + + | [id number] | [Recorded for CQM] | | | | | Documentation of | | | | | current medications | | | | | (procedure) | | | + + + + + | [id number] | [Recorded for CQM] | | | | | Documentation of | | | | | current medications | | | | | (procedure) | | | + + + + + | FREE T4 28603 | T4 Free | | | + + + + + | T3 FREE 60060 | T3 Free | | | + + + + + | TSH 20050 | TSH | | | + + + + + | GLYCO HGB 30922 | HgbA1C | | | + + + + + | [id number] | MU Generic Patient | | | | | Encounter Service | | | | | (from patch) | | | + + + + + | [id number] | [Recorded for [facility]] | | | | | Documentation of | | | | | current medications | | | | | (procedure) | | | + + + + + | [id number] | MU Generic Patient | | | | | Encounter Service | | | | | (from patch) | | | + + + + + | CPT-43822 | EKG- tracing with | | | | | report (88877) | | | + + + + + | [id number] | [Recorded for CQM] | | | | | Documentation of | | | | | current medications | | | | | (procedure) | | | + + + + + | [id number] | MU Generic Patient | | | | | Encounter Service | | | | | (from patch) | | | + + + + + | CPT-Troponin l | Troponin I | | | | 66968 | | | | + + + + + | [id number] | [Recorded for CQM] | | | | | Documentation of | | | | | current medications | | | | | (procedure) | | | + + + + + | CPT-38645 | Physical Therapy | | | | | Evaluation | | | + + + + + | CPT-G8427 | Current Medications | | | | | Documented | | | + + + + + | [id number] | [Recorded for CQM] | | | | | Documentation of | | | | | current medications | | | | | (procedure) | | | + + + + + | CPT-G8427 | Current Medications | | | | | Documented | | | + + + + + | [id number] | [Recorded for CQ] | | | [...] + + + + | CHEM PROF 46664 | CMP (Comprehensive | | | | | Metabolic Panel) | | | + + + + + | GLYCO HGB 40661 | HgbA1C | | | + + + + + | CPT-Q2037 | Fluvirin | | | | | (Influenza) | | | | | Med/Atrio | | | + + + + + | RISK 77699 | Lipid Profile | | | + + + + + | VIT D HYDR 10930 | Vit D, 25 hydroxy | | | + + + + + | CYC CITRU 04171 | Cyclic | | | | | Citrullinated Pept | | | | | IgG | | | + + + + + | RA QUANT 11062 | Rheumatoid Factor | | | | | (quant) | | | + + + + + | TSH 87911 | TSH | | | + + + + + | IVANA 25314 | IVANA | | | + + + + + | GLYCO HGB 48785 | HgbA1C | | | + + + + + | CPT-98323 | EKG- tracing with | | | | | report (94890) | | | + + + + + | CPT-13363 | ANDRE | | | + + + + + | 98656 98424 | Holter Monitor 48H | | | | | Panel | | | + + + + + | 11566 42563 | Holter Monitor 72H | | | | | Panel | | | + + + + + | CPT-64144 | Barium Swallow MBS | | | | | with Speech | | | + + + + + | 30250 36731 | US Abdomen-Cmplt | | | | | and Pelvic-Lmtd | | | + + + + + | CPT-58954 | US Soft Tissue | | | | | Head/Neck Exam | | | + + + + + | CPT-25154 | Motor nerve testing | | | | | - each nerve | | | + + + + + | RISK 27662 | Lipid Profile | | | + + + + + | ESR 53796 | Sedimentation Rate | | | | | (ESR) | | | + + + + + | SPEP IF 77545 | SPEP with JESÚS if | | | | | indicated | | | + + + + + | B12+FOLATE MULTIPLE | B-12 - Folate | | | + + + + + | PFA 78793 | Platelet Function | | | | | Assay | | | + + + + + | 18240 | MRA Head-WO Con | | | + + + + + | 97731 | MR Head-WO Con | | | + + + + + | CPT-17960 | VL Carotid-Cerebral | | | | | Duplex | | | + + + + + | CPT-26529 | Holter Monitor | | | + + + + + | D DIMER 88351 | D-dimer (tyrese) | | | + + + + + | 58933 | CT Head-WWO Con | | | + + + + + | VIT D HYDR 41208 | Vit D, 25 hydroxy | | | + + + + + | TSH 66808 | TSH | | | + + + + + | B12+FOLATE MULTIPLE | B-12 - Folate | | | + + + + + | UA 52943 | Urinalysis | | | + + + + + | CHEM PROF 52693 | CMP (Comprehensive | | | | | Metabolic Panel) | | | + + + + + | CBC 82413 | CBC w/ Diff - w/ | | | | | platelets | | | + + + + + | GLYCO HGB 57598 | HgbA1C | | | + + + + + | TSH 56640 | TSH | | | + + + + + | VIT D HYDR 12686 | Vit D, 25 hydroxy | | [...]
--- OUTSIDE RECORDS SUMMARY | ~2019-03-25 | XMS ---
Demographics + + + | Address | [address] [place] [address] | | | [place], [place] [address] | + + + | Home Phone | | + + + | Preferred Language | Unknown | + + + | Marital Status | D | + + + | Holiness Affiliation | Unknown | + + + | Race | White | + + + | Ethnic Group | or | + + + Author + + + | Author | [facility] | + + + | Organization | [facility] | + + + | Address | [address] | | | [place] [address] | + + + | Phone | Unavailable | + + + Care Team Providers + + + + | Care Jig Fitter Name | Role | Phone | + [...] | NEUROPATHY- UNCONTROLLED (ICD-250.62) | | | (UGN36-O63.40) Status: Inadequately | | | Controlled Pt states she is doing well | | | with her diabetes. Has with her a log of | | | her glucoses though it is not extensive. | | | She appears to be checking 3-4 times daily | | | and dosing appropriately, though her | | | glucoses do tend to creep up over the day. | | | She has most of her diabetic neuropathy | | | pain at night but finds Lyrica helps some | | | with this problem. She is frustrated that | | | she seems to be gaining more weight but | | | does not feel safe walking as much on her | | | own due to feeling dizzy at times and is | | | not walking as much as before. | | | Basaglar 100unit inj INJECT 68 UNITS | | | SUBCUTANEOUSLY IN THE MORNING(34 UNITS ON | | | EACH SIDE), Novolog 100 unit/ml | | | subcutaneous solution 12 Units before | | | meals SS:150-175:2U;176-200:4U; 201-250: | | | 6U; 251-300: 8U; If greater than 300 | | | please call provider, Glipizide xl 2.5 mg | | | oral tablet extended release 24 hour Take | | | 1 tablet p.o. q.a.m., Lyrica 100 mg caps | | | TAKE 1 CAPSULE BY MOUTH THREE TIMES DAILY | | | FOR NEUROPATHY, Bd insulin syringe | | | ultrafine 29g x 1/2" 0.5 ml Use to inject | | | insulin 5 times per day, Onetouch ultra | | | blue in vitro strip Use strip to checl | | | glucose four times daily. Dx: 11.65 SMITH: | | | 89 years, Bd pen needle short u/f 31g x 8 | | | mm USE PEN NEEDLE(S) 4 TIMES DAILY Dx | | | Code E11.40, Relion insulin syringe 31g x | | | 10/09" 0.5 ml USE SYRINGE 4 TIMES DAILY Dx | | | Code E11.40, Onetouch verio w/device kit | | | Use to test glucose four times daily Dx | | | 11.65; SMITH: 89 years Glyco | | | Hemoglobin; A1C, Ofc Vst - Est Level III | | | (01237) ........................ | | | Problem 2: CONSTIPATION (ICD-564.00) | | | (IUK23-Y91.00) Status: Inadequately | | | Controlled Pt has problems with | | | constipation if she does not manage her | | | bowels carefully. She also notes she | | | struggles to get to a bathroom if she is | | | out and about so she will often make sure | | | she has an empty stomach when she has | | | appointments or shopping to do outside her | | | home. Miralax oral powder 17 gm | | | daily stirred into 4-8 ounces of water; | | | juice or other liquid, Linzess 145 mcg | | | oral capsule Take one tablet daily for | | | constipation., Eq stool softener 100 mg | | | caps TAKE 1 CAPSULE BY MOUTH TWICE DAILY | | | FOR SOFT STOOLS Ofc Vst - Est | | | Level III (73276) | | | ........................ Problem 3: | | | HYPERTENSION (ICD-401.9) (YJD37-B10) | | | Status: Controlled Irbesartan 300mg | | | tab TAKE 1 TABLET BY MOUTH ONCE DAILY, | | | Potassium chloride er 10 meq oral capsule | | | extended release Take one cap daily in the | | | AM, Furosemide 80 mg tabs TAKE 1 TABLET | | | BY MOUTH ONCE DAILY IN THE MORNING | | | Ofc Vst - Est Level III (45474) | | | ........................ Med List: | | | (Reconciled) BASAGLAR 100UNIT INJ | | | (INSULIN [...] | | | p.o. q.a.m.; Route: ORAL PROMETHAZINE HCL | | | 25 MG ORAL TABLET (PROMETHAZINE HCL) Take | | | one tablet by mouth every 4 hours as | | | needed for nausea and vomiting; Route: | | | ORAL LYRICA 100 MG CAPS (PREGABALIN) TAKE | | | 1 CAPSULE BY MOUTH THREE TIMES DAILY FOR | | | NEUROPATHY MIRALAX ORAL POWDER | | | (POLYETHYLENE [...] | | | four times daily. Dx: 11 SMITH: 89 | | | years; Route: [...] Take | | | one tablet daily for constipation.; Route: | | | ORAL EQ STOOL SOFTENER 100 MG CAPS | | | (DOCUSATE SODIUM) TAKE 1 CAPSULE BY MOUTH | | | TWICE DAILY FOR SOFT STOOLS | | | Meaningful Use Med List: (Reconciled) | | | HPI Chronic A 72-year-old | | | female, never smoker, here for 3 mo f/u | | | DM. She is here with her son who reports | | | they will be moving in approximately 3 | | | months back to [place]. He would like a list | | | of all her medications because he sets up | | | her pill box. Sugars have been running | | | fairly well. She brings in a small list | | | of | | | these..................................... | | | ...............................Edna Nash | | | CCMA May 28, 2018 2:19 PM | | | 72-year-old female, never smoker, here for | | | 3 month follow up regarding diabetes. She | | | is here with her son who reports they | | | will be moving in approximately 3 months | | | back to [place]. He would like a list of all | | | her medications because he sets up her | | | pill | | | box....................................... | | | .............................Ambrose Pascual | | | DNP PERINATAL NURSE May 28, 2018 3:01 PM | | | Diabetes: Sees Dr. Washington regularly for eye | | | injections. She feels really shaky and | | | weak anytime her glucose goes below 150. | | | She checks between 3 & 4 times per day. | | | The diabetes type is Type II: Insulin | | | dependent. The patient's compliance with | | | the treatment plan is good. The patient's | | | compliance with the diet management plan | | | is good. The patient does a blood sugar | | | check 4 times per day. The patient's | | | average fasting blood sugar is 121-310. | | | The patient denies all symptoms of | | | hyperglycemia. An eye exam is not due at | | | this time. Previous HgbA1c: 9.6 % | | | 02/24/2018 High Previous Microalb Urn: | | | [...] | | | Number of Children: 7 Zoroastrianism/Islam: | | | Anglican Primary Language: Lithuanian Use | | | of Lithuanian Language: Fluent Review of | | | Systems General: History reveals | | | positive for fatigue, malaise. History | | | reveals negative for fevers, chills, | | | sweats, anorexia. Ears/Nose/Throat: | | | History reveals negative for earache, | | | nasal congestion, sore throat, hoarseness. | | | Cardiovascular: History reveals | | | negative for chest pain, palpitations, | | | peripheral edema. Respiratory: History | | | reveals negative for cough, dyspnea, | | | wheezing. Gastrointestinal: History | | | reveals positive for constipation. Has to | | | use Linzess History reveals negative | | | for nausea, vomiting, diarrhea. | | | Genitourinary: History reveals negative | | | for dysuria, hematuria. | | | Musculoskeletal: History reveals negative | | | for back pain, joint pain, joint swelling. | | | Skin: History reveals positive for | | | itching. Risk Factors Tobacco Use: | | | never smoker Alcohol Use:never Drug | | | Use: none Comments: Denies all drug | | | use....................................... | | | .............................Edna Nash | | | [facility] May 28, 2018 2:03 PM Other | | | Risk Factors [...] Intake Height: | | | 60in. Weight: 183.2 lbs. Temp: | | | 97.7deg.(tympanic) Pulse: 84(regular) | | | Resp: 15 BMI: 35.91 Wt chg: -3.40 | | | Pulse Oximetry: O2 sat. at rest is 97% on | | | RA BP #1: 132/70 Position:sitting | | | Site:left arm Time:2:20 PM Vitals entered | | | by: Edna Nash [facility] on May 28, 2018 | | | 2:20 PM Physical Exam General: Well | | | developed, well nourished, in no apparent | | | distress Head: Normocephalic, atraumatic | | | Eyes: conjunctiva and sclera clear, lids | | | normal Ears: Grossly normal hearing | | | Lungs: Clear bilaterally with normal | | | respiratory effort. Heart: Regular rate | | | and rhythm, normal S1, S2, no obvious | | | murmur Abdomen: Soft, non-tender, bowel | | | sounds present MSK: grossly normal gait | | | and station. Pulses: Pulses normal in all | | | extremities Neurologic: Pt is forgetful | | | Skin: Visible skin is intact without | | | significant lesions, or rashes. Psych: | | | Alert and oriented to time, person, place. | | | Normal mood and affect, intact judgement | | | and insight. Diabetic Support Tools | | | *EXAMS* DM Foot Exam: Abnormal | | | (02/25/2018) *BLOOD PRESSURE* BP | | | Systolic: 132 (05/28/2018) BP Diastolic: | | | 70 (05/28/2018) *LABS* Cholesterol: | | | 144 (04/12/2017) LDL: 55 (04/12/2017) | | | HDL: 49 (04/12/2017) Triglycerides: 202 | | | (04/12/2017) Creatinine: 2.60 | | | (04/21/2018) HgbA1c: 9.6 (02/24/2018) | | | Urine Micro Alb: 168.000 (04/12/2017) | | | *RENAL* On CRISTINO/ARB? 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 Yes | | | Medications: EQ STOOL SOFTENER 100 MG | | | CAPS (DOCUSATE SODIUM) TAKE 1 CAPSULE BY | | | MOUTH TWICE DAILY FOR SOFT STOOLS | | | #180[Capsule] x 3 Entered and Authorized | | | by: Ambrose GORDON Signed by: | | | Ambrose GORDON on 05/28/2018 Method | | | used: Electronically to [facility] - | | | [place]* [place]) [address] | | | [place] [address] Ph: [phone] | | | Fax: [phone] RxID: [id number] | | | LINZESS 145 MCG ORAL CAPSULE (LINACLOTIDE) | | | Take one tablet daily for constipation. | | | #30[Capsule] x 3 Route:ORAL Entered | | | and Authorized by: Ambrose GORDON | | | Signed by: Ambrose GORDON on | | | 05/28/2018 Method used: Electronically | | | to [facility]* (retail) [address] [place] [address] | | | Ph: [phone] Fax: [phone] Note to | | | Pharmacy: Route: ORAL; RxID: | | | [id number] FUROSEMIDE 80 MG TABS | | | (FUROSEMIDE) TAKE 1 TABLET BY MOUTH ONCE | | | DAILY IN THE MORNING #90[Tablet] x 3 | | | Entered and Authorized by: Ambrose Pascual DNP | | | PERINATAL NURSE Signed by: Ambrose Pascual DNP PERINATAL NURSE on | | | 05/28/2018 Method used: Electronically | | | to [facility]) [address] | | [place] [address] | | | Ph: [phone] Fax: [phone] RxID: | | | [id number] GLIPIZIDE XL 2.5 MG ORAL | | | TABLET EXTENDED RELEASE 24 HOUR | | | (GLIPIZIDE) Take 1 tablet p.o. q.a.m. | | | #30[Tablet] x 6 Route:ORAL Entered and | | | Authorized by: Ambrose NOELP | | | Signed by: Ambrose NOELP on | | | 05/28/2018 Method used: Electronically | | | to [facility]) [address] | [place] [address] | | | Ph: [phone] Fax: [phone] Note to | | | Pharmacy: Route: ORAL; RxID: | | | [id number] NOVOLOG 100 UNIT/ML | | | SUBCUTANEOUS SOLUTION (INSULIN ASPART) 12 | | | Units before meals | | | SS:150-175:2U,176-200:4U, 201-250: 6U, | | | 251-300: 8U, If greater than 300 please | | | call provider #100[Milliliter] x 3 | | | Route:SUBCUTANEOUS Entered and | | | Authorized by: Ambrose NOELP | | | Signed by: Ambrose NOELP on | | | 05/28/2018 Method used: Electronically | | | to [facility]) [address] | [place] [address] | | | Ph: [phone] Fax: [phone] Note to | | | Pharmacy: Route: SC; RxID: | | | [id number] MECLIZINE HCL 25 MG ORAL | | | TABLET (MECLIZINE HCL) One tab by mouth | | | three times per day #90[Tablet] x 2 | | | Route:ORAL Entered and Authorized by: | | | Ambrose Pascual DNP PERINATAL NURSE Signed by: Ambrose | | | Ankur DNP PERINATAL NURSE on 05/28/2018 Method used: | | | Electronically to [facility] | | | (retail) [address] | | | [place] [address] Ph: [phone] | | | Fax: [phone] Note to Pharmacy: Route: | | | ORAL; RxID: [id number] | | | POTASSIUM CHLORIDE ER 10 MEQ ORAL CAPSULE | | | EXTENDED RELEASE (POTASSIUM CHLORIDE) Take | | | one cap daily in the AM #30[Capsule] x 3 | | | Route:ORAL Entered and Authorized by: | | | Ambrose Pascual DNP PERINATAL NURSE Signed by: Ambrose | | | Ankur RAMIREZ PERINATAL NURSE on 05/28/2018 Method used: | | | Electronically to [facility]* | | | (retail) [address] | | | [place] [address] Ph: [phone] | | | Fax: [phone] Note to Pharmacy: Route: | | | ORAL; RxID: [id number] | | | OMEPRAZOLE 40 MG ORAL CAPSULE DELAYED | | | RELEASE (OMEPRAZOLE) Take one by mouth one | | | time per day 30-60 minutes before | | | breakfast as needed #30[Capsule] x 6 | | | Entered and Authorized by: Ambrose Pascual DNP | | | PERINATAL NURSE Signed by: Ambrose Pascual DNP PERINATAL NURSE on | | | 05/28/2018 Method used: Electronically | | | to [facility] (retail) [address] | | [address] [place] [address] | | | Ph: [phone] Fax: [phone] RxID: | | | [id number] PLAVIX 75 MG ORAL TABLET | | | (CLOPIDOGREL BISULFATE) 1 tab by mouth | | | one time per day in the evening | | | #90[Tablet] x 3 Entered and Authorized | | | by: Ambrose Pascual DNP PERINATAL NURSE Signed by: | | | Ambrose Pascual DNP PERINATAL NURSE on 05/28/2018 Method | | | used: Electronically to [facility] - | | | [place]* (retail) [address] | | | [place] [address] Ph: [phone] | | | Fax: [phone] RxID: [id number] | | | LIPITOR 20 MG ORAL TABLET (ATORVASTATIN | | | CALCIUM) take 1 tablet by mouth daily in | | | the evening #90[Tablet] x 2 Entered and | | | Authorized by: Ambrose Pascual DNP PERINATAL NURSE | | | Signed by: Ambrose Pascual DNP PERINATAL NURSE on | | | 05/28/2018 Method used: Electronically | | | to [facility]* (retail) [address] | | [place] [address] | | | Ph: [phone] Fax: [phone] RxID: | | | [id number] IRBESARTAN 300MG TAB | | | (IRBESARTAN) TAKE 1 TABLET BY MOUTH ONCE | | | DAILY #90[Tablet] x 3 Entered and | | | Authorized by: Ambrose Pascual DNP PERINATAL NURSE | | | Signed by: Ambrose Pascual DNP PERINATAL NURSE on | | | 05/28/2018 Method used: Electronically | | | to [facility]* (retail) [address] | [place] [address] | | | Ph: [phone] Fax: [phone] RxID: | | | [id number] BASAGLAR 100UNIT INJ | | | (INSULIN GLARGINE) INJECT 68 UNITS | | | SUBCUTANEOUSLY IN THE MORNING(34 UNITS ON | | | EACH SIDE) #21[Prefilled Pen Syrnge] x 3 | | | Entered and Authorized by: Ambrose Pascual | | | DNP PERINATAL NURSE Signed by: Ambrose Pascual DNP PERINATAL NURSE | | | on 05/28/2018 Method used: | | | Electronically to [facility]* | | | (retail) [address] | | | [place] [address] Ph: [phone] | | | Fax: [phone] RxID: [id number] | | | LYRICA 100 MG CAPS (PREGABALIN) TAKE 1 | | | CAPSULE BY MOUTH THREE TIMES DAILY FOR | | | NEUROPATHY #90 x 3 Entered and | | | Authorized by: Ambrose Pascual DNP PERINATAL NURSE | | | Signed by: Ambrose Pascual DNP [facility] on | | | 05/28/2018 Method used: Print then Give | | | to Patient RxID: [id number] | | | Denied I have already responded to this | | | request by other means (e.g. phone or | | | fax), LYRICA 100 MG CAPS (PREGABALIN) TAKE | | | 1 CAPSULE BY MOUTH THREE TIMES DAILY FOR | | | NEUROPATHY #90[Capsule] x 3 Entered | | | and Authorized by: Ambrose Pascual DNP PERINATAL NURSE | | | Signed by: Ambrose Pascual DNP [facility] on | | | 05/28/2018 Method used: Electronically | | | to [facility] ([facility]) [address] | | [place] [address] | | | Ph: [phone] Fax: [phone] RxID: | | | [id number] | + + + Assessments No information available. Chief Complaint No information available. History of Past Illness No information available.
--- OUTSIDE RECORDS SUMMARY | ~2019-03-25 | XMS | Clinical Summary ---
Demographics + + + | Address | [address] [place] [address] | | | [place] [address] | + + + | Home Phone | | + + + | Preferred Language | Unknown | + + + | Marital Status | S | + + + | Worship Affiliation | Unknown | + + + | Race | Unspecified | + + + | Ethnic Group | or | + + + Author + + + | Author | [facility] | + + + | Organization | [facility] | + + + | Address | [address] | | | [place] [address] | + + + | Phone | Unavailable | + + + Care Team Providers + + + + | Care Cobol Application Developer Name | Role | Phone | [...] fied | | +---------+---------+---------+---------+---------+---------+---------+---------+---------+ | XEROSIS | [id number] | | Active | | Hector | [...] fied | | +---------+---------+---------+---------+---------+---------+---------+---------+---------+ | DIABETE | [id number] | | Active | | David | | Periphe | | | S | 05 | / | | /02 | Hoyne | | [...] s | | +---------+---------+---------+---------+---------+---------+---------+---------+---------+ | NAUSEA | [id number] | | Resolve | | Geetha | | Nausea | | | ALONE | 07 | /13 | d | /13 | Nixon | | | | | | (SNOMED | | | | CCMA | | | | | | CT) | | | | | | | | +---------+---------+---------+---------+---------+---------+---------+---------+---------+ | VACCINA | [id number] | | Resolve | | Geetha | | Medicat | | | TION | 02 | | d | /03 | Nixon | | ion | | | FOR [...] | | | +---------+---------+---------+---------+---------+---------+---------+---------+---------+ | FLANK | [id number] | | Active | | Geetha | | Flank | | | PAIN | 05 | /01 | | /01 | Nixon | | pain | | | | (SNOMED | | | | CCMA | | | | | | CT) | | | | | | | | +---------+---------+---------+---------+---------+---------+---------+---------+---------+ | VACCINA | [id number] | | Removed | | Ambrose | | Medicat | | | TION | 02 | /03 | | / | [facility] | | ion | | | FOR | (SNOMED | | | | DNP LABORATORY [facility] | | given | | | STREP [...] | | | +---------+---------+---------+---------+---------+---------+---------+---------+---------+ | OSTEOAR | [id number] | | Active | | Edna | | Osteoar | | | THRITIS | 07 | /16 | | /18 | Hope | | thritis | | | , KNEE, | (SNOMED | | | | CCMA | | of | | | RIGHT | CT) | | | | | | knee | | +---------+---------+---------+---------+---------+---------+---------+---------+---------+ | CONSTIP | [id number] | | Active | | Ambrose | | Constip | | | ATION | 8 | /13 | | /13 | Ankur | | ation | | | | (SNOMED | | | | DNP LABORATORY [facility] | | | | | | CT) | | | | | | | | +---------+---------+---------+---------+---------+---------+---------+---------+---------+ | TYPE 2 | E11.21 | | Active | | Ambrose | | Type 2 | | | DIABETE | (ICD-10 | /19 | | /19 | Ankur | | diabete | | | S | -CM) | | | | DNP LABORATORY [facility] | | s | | | MELLITU [...] athy | | +---------+---------+---------+---------+---------+---------+---------+---------+---------+ | DIABETE | [id number] | | Inactiv | | Ambrose | | Type 2 | | | S | 6 | /08 | e | /08 | [facility] | | diabete | | | MELLITU | (SNOMED | | | | DNP LABORATORY [facility] | | s | | | S, TYPE | CT) | | | | | | mellitu | | | II, ON | | | | | | | s | | | | | | | | | | | | | INSULIN | | | | | | | | | +---------+---------+---------+---------+---------+---------+---------+---------+---------+ | DEHYDRA | [id number] | | Resolve | | Ambrose | | Dehydra | | | TION | 6 | /08 | d | /08 | [facility] | | tion | | | | (SNOMED | | | | DNP LABORATORY [facility] | | | | | | CT) | | | | | | | | +---------+---------+---------+---------+---------+---------+---------+---------+---------+ | DIZZINE | [id number] | | Inactiv | | Ambrose | | Dizzine | | | SS | 03 | /08 | e | /08 | Ank[facility] | | ss | | | | (SNOMED | | | | DNP LABORATORY [facility] | | | | | | CT) | | | | | | | | +---------+---------+---------+---------+---------+---------+---------+---------+---------+ | ANEMIA | [id number] | | Inactiv | | Ambrose | | Anemia | | | | 00 | /10 | e | /10 | [facility] | | | | | | (SNOMED | | | | DNP LABORATORY [facility] | | | | | | CT) | | | | | | | | +---------+---------+---------+---------+---------+---------+---------+---------+---------+ | CONSTIP | [id number] | | Inactiv | | Ambrose | | Constip | | | ATION | 8 | / | e | /13 | Ank[facility] | | ation | | | | (SNOMED | | | | DNP LABORATORY [facility] | | | | | | CT) | | | | | | | | +---------+---------+---------+---------+---------+---------+---------+---------+---------+ | SYNCOPE | [id number] | | Resolve | | Ambrose | | Syncope | | | | 07 | | d | / | [facility] | | | | | | (SNOMED | | | | DNP LABORATORY [facility] | | | | | | CT) | | | | | | | | +---------+---------+---------+---------+---------+---------+---------+---------+---------+ | DYSPHAG | R13.10 | | Resolve | | Ambrose | | Dysphag | | | IA | (ICD-10 | | d | / | Ankur | | ia, | | | UNSPECI | -CM) | | | | DNP LABORATORY [facility] | | unspeci | | | FIED | | | | | | | fied | | +---------+---------+---------+---------+---------+---------+---------+---------+---------+ | PARESTH | [id number] | | Inactiv | | Ambrose | | Paresth | | | ESIA, | | | e | | Ankur | | esia of | | | HANDS | (SNOMED | | | | DNP LABORATORY [facility] | | hand | | | | CT) | | | | | | | | +---------+---------+---------+---------+---------+---------+---------+---------+---------+ | DIABETI | [id number] | | Inactiv | | Ambrose | | Diabeti | | | C | | | e | | Ank[facility] | | c | | | PERIPHE | (SNOMED | | | | DNP LABORATORY [facility] | | periphe | | | RAL [...] | -CM) | | | | DNP LABORATORY [facility] | | unspeci | | | FIED | | | | | | | fied | | +---------+---------+---------+---------+---------+---------+---------+---------+---------+ | VAGINIT | [id number] | | Resolve | | Ambrose | | Vaginit | | | IS | 1 | /31 | d | /31 | [facility] | | is | | | | (SNOMED | | | | DNP LABORATORY [facility] | | | | | | CT) | | | | | | | | +---------+---------+---------+---------+---------+---------+---------+---------+---------+ | DYSURIA | [id number] | | Resolve | | Ambrose | | Dysuria | | | | 1 | /31 | d | /31 | [facility] | | | | | | (SNOMED | | | | DNP LABORATORY [facility] | | | | | | CT) | | | | | | | | +---------+---------+---------+---------+---------+---------+---------+---------+---------+ | EDEMA | [id number] | | Inactiv | | Ambrose | | Edema | | | | 08 | /15 | e | /11 | [facility] | | | | | | (SNOMED | | | | DNP LABORATORY [facility] | | | | | | CT) | | | | | | | | +---------+---------+---------+---------+---------+---------+---------+---------+---------+ | RENAL | [id number] | | Inactiv | | Ambrose | | Acute | | | FAILURE | 1 | /02 | e | /02 | Ank[facility] | | renal | | | , ACUTE | (SNOMED | | | | DNP LABORATORY [facility] | | failure | | | | CT) | | | | | | | | | | | | | | | | syndrom | | | | | | | | | | e | | +---------+---------+---------+---------+---------+---------+---------+---------+---------+ | DIABETE | [id number] | | Inactiv | | Ambrose | | Periphe | | | S | 02 | / | e | /01 | [facility] | | ral | | | MELLITU | (SNOMED | | | | DNP LABORATORY [facility] | | vascula | | | S, [...] | (ICD-10 | / | e | /01 | Ankur | | diabete | | | - | -CM) | | | | DNP LABORATORY [facility] | | s | | | DIABETI [...] ropathy | | +---------+---------+---------+---------+---------+---------+---------+---------+---------+ | LOCALIZ | [id number] | | Resolve | | Ambrose | | Disorde | | | ED | 09 | /30 | d | /30 | [facility] | | r of | | | SWELLIN | (SNOMED | | | | DNP LABORATORY [facility] | | forearm | | | G [...] | | | +---------+---------+---------+---------+---------+---------+---------+---------+---------+ | UTI | [id number] | | Resolve | | Ambrose | | Urinary | | | | 5 | /13 | d | /13 | [facility] | | tract | | | | (SNOMED | | | | DNP LABORATORY [facility] | | infecti | | | | [...] | -CM) | | | | DNP LABORATORY [facility] | | s | | | MELLITU [...] athy | | +---------+---------+---------+---------+---------+---------+---------+---------+---------+ | DEMENTI | [id number] | | Inactiv | | Ambrose | | Procedu | | | A | 03 | / | e | / | Ank[facility] | | re | | | SCREENI | (SNOMED | | | | DNP LABORATORY [facility] | | carried | | | NG | CT) | | | | | | out on | | | | | | | | | | | | | | | | | | | | subject | | +---------+---------+---------+---------+---------+---------+---------+---------+---------+ | CHANGE | [id number] | | Inactiv | | Ambrose | | Altered | | | IN | 9 | /13 | e | /13 | [facility] | | bowel | | | BOWEL | (SNOMED | | | | DNP LABORATORY [facility] | | functio | | | HABITS | CT) | | | | | | n | | +---------+---------+---------+---------+---------+---------+---------+---------+---------+ | MILD | [id number] | | Inactiv | | Ambrose | | Mild | | | COGNITI | 03 | / | e | /24 | [facility] | | cogniti | | | VE | (SNOMED | | | | DNP LAB[facility]ATORY [facility] | | ve | | | IMPAIRM | CT) | | | | | | disorde | | | ENT | | | | | | | r | | +---------+---------+---------+---------+---------+---------+---------+---------+---------+ | DIABETE | [id number] | | Inactiv | | Ambrose | | Periphe | | | S | [id number] | /11 | e | /12 | [facility] | | ral | | | MELLITU | (SNOMED | | | | DNP LABORATORY [facility] | | neuropa | | | S, [...] fied | | +---------+---------+---------+---------+---------+---------+---------+---------+---------+ | DIABETE | [id number] | | Active | | David W | | Periphe | | | S | 458450 | /15 | | / | Theen [...] | | | +---------+---------+---------+---------+---------+---------+---------+---------+---------+ | MUSCLE | 5164784 | | Active | | Christen | | Muscle | | | PAIN | 1 | | | /07 | J. | | pain | | | | (SNOMED | | | | [place] | | | | | | CT) | | | | ta LABORATORY [facility] | | | | +---------+---------+---------+---------+---------+---------+---------+---------+---------+ | DIABETE | [id number] | | Removed | | David W | | Periphe | | | S | [id number] | /11 | | /12 | Theen [...] | | | +---------+---------+---------+---------+---------+---------+---------+---------+---------+ | MILD | [id number] | | Removed | | Maulik | | Mild | | | COGNITI | 03 | /24 | | 24 | Mendels | | [...] | | CTOMY, | | | | /24 | Mendels | | [...] uterus | | +---------+---------+---------+---------+---------+---------+---------+---------+---------+ | COLONIC | 4815497 | | Active | | Emeka | [...] | | | +---------+---------+---------+---------+---------+---------+---------+---------+---------+ | CONSTIP | [id number] | | Removed | | Emeka | | Constip | | | ATION | 8 | /13 | | /13 | Petre | | ation | | | | (SNOMED | | | | MD | | | | | | CT) | | | | | | | | +---------+---------+---------+---------+---------+---------+---------+---------+---------+ | CHANGE | 5463875 | | Removed | | Emeka | | Altered | | | IN | 9 | /13 | | /13 | Petre | | bowel | | | BOWEL | (SNOMED | | | | MD | | functio | | | HABITS | CT) | | | | | | n | | +---------+---------+---------+---------+---------+---------+---------+---------+---------+ | DECREAS | 4852336 | | Active | | Emeka | | Decreas | | | ED | 6 | /13 | | /13 | Petre | | e in | | | APPETIT | (SNOMED | | | | MD | | appetit | | | E | CT) | | | | | | e | | +---------+---------+---------+---------+---------+---------+---------+---------+---------+ | WEIGHT | [id number] | | Active | | Emeka | | Abnorma | | | LOSS | 01 | / | | /13 | Petre | | l | | | ABNORMA | (SNOMED | | | | MD | | weight | | | L | CT) | | | | | | loss | | +---------+---------+---------+---------+---------+---------+---------+---------+---------+ | NAUSEA | 5941820 | | Removed | | Emeka | | Nausea | | | ALONE | 07 | /13 | | /13 | Petre | | | | | | (SNOMED | | | | MD | | | | | | CT) | | | | | | | | +---------+---------+---------+---------+---------+---------+---------+---------+---------+ | RECTAL | [id number] | | Active | | Emeka | | Rectal | | | BLEEDIN | 2 | /13 | | /13 | Petre | | hemorrh | | | G | (SNOMED | | | | MD | | age | | | | CT) | | | | | | | | +---------+---------+---------+---------+---------+---------+---------+---------+---------+ | DEMENTI | [id number] | | Active | | Christen | | Dementi | | | A | 6 | /10 | | / | J. | | a | | | WITHOUT | (SNOMED | | | | [place] | | | | | | CT) | | | | ta LAB[facility]ATORY [facility] | | | | | BEHAVIO | | | | | | | | | | RAL | | | | | | | | | | DISTURB | | | | | | | | | | ANCE | | | | | | | | | +---------+---------+---------+---------+---------+---------+---------+---------+---------+ | CHRONIC | [id number] | | Active | | Christen | | Chronic | | | | 03 | /10 | | /10 | J. | | | | | PROGRES | (SNOMED | | | | [place] | | progres | | | SIVE | CT) | | | | ta [facility]ATORY [facility] | | sive | | | RENAL | | | | | | | renal | | | FAILURE | | | | | | | failure | | +---------+---------+---------+---------+---------+---------+---------+---------+---------+ | ANEMIA | [id number] | | Removed | | Christen | | Anemia | | | | 00 | /10 | | /10 | J. | | | | | | (SNOMED | | | | [place] | | | | | | CT) | | | | ta [facility]ORATORY [facility] | | | | +---------+---------+---------+---------+---------+---------+---------+---------+---------+ | DEMENTI | 1127249 | | Removed | | Christen | | Procedu | | | A | | / | | | J. | | re | | | SCREENI | (SNOMED | | | | [place] | | carried | | | NG | CT) | | | | ta LABORATORY [facility] | | out on | | | | | | | | | | | | | | | | | | | | subject | | +---------+---------+---------+---------+---------+---------+---------+---------+---------+ | FALL | 7793276 | | Active | | Christen | | At risk | | | RISK | | | | | J. | | for | | | | (SNOMED | | | | [place] | | falls | | | | CT) | | | | ta LABORATORY [facility] | | | | +---------+---------+---------+---------+---------+---------+---------+---------+---------+ | DIABETE | [id number] | | Resolve | | Christen | | Periphe | | | S | 894807 | /14 | d | / | J. | | ral | | | MELLITU | (SNOMED | | | | [place] | | neuropa | | | S, TYPE | CT) | | | | ta [facility]ORATORY [facility] | | thy | | | II [...] | | | +---------+---------+---------+---------+---------+---------+---------+---------+---------+ | CORNS | [id number] | | Inactiv | | Kali | | Dantes | | | AND | 00 | | e | | Palacio | | and | | | MICHELLEOSI | (SNOMED | | | | DPM | | callus | | | TIES | CT) | | | | | | | | +---------+---------+---------+---------+---------+---------+---------+---------+---------+ | HAMMER | 5132619 | | Active | | Kali | [...] | | | +---------+---------+---------+---------+---------+---------+---------+---------+---------+ | HALLUX | 4796213 | | Active | | Kali | [...] ropathy | | +---------+---------+---------+---------+---------+---------+---------+---------+---------+ | DIABETE | [id number] | | Removed | | Kali | [...] s | | +---------+---------+---------+---------+---------+---------+---------+---------+---------+ | ONYCHOM | 4640192 | | Active | | Kali | | Onychom | | | YCOSIS | | | | Palacio | | ycosis | | | | (SNOMED | | | | DPM | | | | | | CT) | | | | | | | | +---------+---------+---------+---------+---------+---------+---------+---------+---------+ | HEARTBU | 3148734 | | Active | | Tiesha | | Heartbu | | | RN | 0 | /19 | | /19 | | | rn | | | | (SNOMED | | | | Maria Isabel | | | | | | CT) | | | | MD | | | | +---------+---------+---------+---------+---------+---------+---------+---------+---------+ | TYPE 2 | 6855245 | | Active | | Tiesha | | Disorde | | | DIABETE | 03 | / | | /19 | | | r due | | | S | (SNOMED | | | | [place] | | to type | | | [...] S | -CM) | | | | [place] | | s | | | MELLITU [...] athy | | +---------+---------+---------+---------+---------+---------+---------+---------+---------+ | UTI | [id number] | | Removed | | Pako | | Urinary | | | | 5 | /13 | | /13 | Middlek | | tract | | | | (SNOMED | | | | auff | | infecti | | | | CT) | | | | LABORATORY [facility] | | ous | | | | | | | | | | disease | | +---------+---------+---------+---------+---------+---------+---------+---------+---------+ | LOCALIZ | 6445323 | | Removed | | D'Elena | [...] | | | +---------+---------+---------+---------+---------+---------+---------+---------+---------+ | LIPOMA | 6804339 | | Active | | Lauranc | | Lipoma | | | | 2 | /14 | | /14 | e W | | (clinic | | | | (SNOMED | | | | Lila | | al) | | | | CT) | | | | MD | | | | +---------+---------+---------+---------+---------+---------+---------+---------+---------+ | VITAMIN | 5908915 | | Active | | David W | | Vitamin | | | D | 6 | /14 | | /15 | Theen | | D | | | DEFICIE | (SNOMED | | | | MD FACE | | deficie | | | NCY | CT) | | | | FACP | | ncy | | +---------+---------+---------+---------+---------+---------+---------+---------+---------+ | OBESITY | 5424519 | | Active | | David W | | Obesity | | | , BMI | 01 | /14 | | /15 | Theen | | | | | 35-39.9 | (SNOMED | | | | MD FACE | | | | | , ADULT | CT) | | | | FACP | | | | +---------+---------+---------+---------+---------+---------+---------+---------+---------+ | DIABETE | 9354358 | | Removed | | David W | | Periphe | | | S | 255365 | /14 | | /15 | Theen [...] | | | +---------+---------+---------+---------+---------+---------+---------+---------+---------+ | HALLUX | 4228161 | | Inactiv | | Kali | [...] | | | +---------+---------+---------+---------+---------+---------+---------+---------+---------+ | HAMMER | 9073633 | | Inactiv | | Kali | [...] | | | +---------+---------+---------+---------+---------+---------+---------+---------+---------+ | ONYCHOM | 8861910 | | Inactiv | | Kali | [...] ropathy | | +---------+---------+---------+---------+---------+---------+---------+---------+---------+ | DIABETE | 5842678 | | Inactiv | | Kali | [...] s | | +---------+---------+---------+---------+---------+---------+---------+---------+---------+ | SCREENI | 0722484 | | Resolve | | Lauranc | | Depress | | | NG FOR | | / | d | /10 | e W | | ion | | | DEPRESS | (SNOMED | | | | Lila | | screeni | | | ION | CT) | | | | MD | | ng | | +---------+---------+---------+---------+---------+---------+---------+---------+---------+ | SCREENI | 8350647 | | Resolve | | Lauranc | [...] | | | +---------+---------+---------+---------+---------+---------+---------+---------+---------+ | SCREENI | [id number] | | Resolve | | Lauranc | [...] ng | | +---------+---------+---------+---------+---------+---------+---------+---------+---------+ | SCREENI | 6322169 | | Removed | | Geetha | | Alcohol | | | NG FOR | 01 | /10 | | /10 | Nixon | | | | | ALCOHOL | (SNOMED | | | | [facility] | | consump | | | ISM | CT) | | | | | | tion | | | | | | | | | | screeni | | | | | | | | | | ng | | +---------+---------+---------+---------+---------+---------+---------+---------+---------+ | SCREENI | 6047297 | | Removed | | Geetha | | Screeni | | | NG FOR | | | | | Nixon | | ng for | | | UNSPECI | (SNOMED | | | | [facility]MA | | disorde | | | FIED | CT) | | | | | | r | | | CONDITI | | | | | | | | | | ON | | | | | | | | | +---------+---------+---------+---------+---------+---------+---------+---------+---------+ | SCREENI | 2646766 | | Removed | | Geetha | | Depress | | | NG FOR | | / | | / | Nixon | | ion | | | DEPRESS | (SNOMED | | | | [facility]MA | | screeni | | | ION | CT) | | | | | | ng | | +---------+---------+---------+---------+---------+---------+---------+---------+---------+ | RENAL | 2333743 | | Removed | | Lauranc | [...] e | | +---------+---------+---------+---------+---------+---------+---------+---------+---------+ | EDEMA | 9531423 | | Removed | | Lauranc | | Edema | | | | 08 | /15 | | /11 | e W | | | | | | (SNOMED | | | | Lila | | | | | | CT) | | | | MD | | | | +---------+---------+---------+---------+---------+---------+---------+---------+---------+ | RENAL | 9986129 | | Active | | Luz | [...] e | | +---------+---------+---------+---------+---------+---------+---------+---------+---------+ | PERIPHE | 9600823 | | Active | | Lauranc | [...] disease | | +---------+---------+---------+---------+---------+---------+---------+---------+---------+ | CANDIDI | 6265221 | | Active | | Susanna | | Candidi | | | ASIS, | 6 | | | / | Medel | | asis of | | | SKIN | (SNOMED | | | | MD | | skin | | | | CT) | | | | | | | | +---------+---------+---------+---------+---------+---------+---------+---------+---------+ | DYSURIA | 7853846 | | Removed | | Erica | | Dysuria | | | | 1 | /31 | | / | Paul | | | | | | (SNOMED | | | | MA | | | | | | CT) | | | | | | | | +---------+---------+---------+---------+---------+---------+---------+---------+---------+ | VAGINIT | 0016434 | | Removed | | Erica | | Vaginit | | | IS | 1 | /31 | | /31 | Paul | | is | | | | (SNOMED | | | | MA | | | | | | CT) | | | | | | | | +---------+---------+---------+---------+---------+---------+---------+---------+---------+ | RLQ | 8993272 | | Resolve | | Lauranc | | Right | | | PAIN | 02 | | d | /11 | e W | | lower | | | | (SNOMED | | | | Lila | | quadran | | | | CT) | | | | MD | | t pain | | +---------+---------+---------+---------+---------+---------+---------+---------+---------+ | ABDOMIN | 3913973 | | Resolve | | Lauranc | [...] | | | +---------+---------+---------+---------+---------+---------+---------+---------+---------+ | KNEE | 9106506 | | Active | | Lauranc | | Knee | | | PAIN | 3 | /14 | | /14 | e W | | pain | | | | (SNOMED | | | | Lila | | | | | | CT) | | | | MD | | | | +---------+---------+---------+---------+---------+---------+---------+---------+---------+ | [facility] | 2533384 | | Correct | | Lauranc | [...] | | | +---------+---------+---------+---------+---------+---------+---------+---------+---------+ | VERTEBR | 3226724 | | Active | | Lauranc | [...] e | | +---------+---------+---------+---------+---------+---------+---------+---------+---------+ | VERTIGO | 2372519 | | Active | | Luz | | Vertigo | | | | 01 | / | | / | Asad | | | | | | (SNOMED | | | | RN | | | | | | CT) | | | | | | | | +---------+---------+---------+---------+---------+---------+---------+---------+---------+ | CHEST | 4375647 | | Inactiv | | Genny | | Chest | | | PAIN | 9 | | e | /02 | Kaufman | | pain | | | | (SNOMED | | | | | | | | | | CT) | | | | | | | | +---------+---------+---------+---------+---------+---------+---------+---------+---------+ | CHEST | 7389320 | | Inactiv | | Lauranc | [...] fied | | +---------+---------+---------+---------+---------+---------+---------+---------+---------+ | CEREBRO | 4603921 | | Active | 2014/01 | Rogers | | 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 | (SNOMED | | | | MD | | r | | | DISEASE | CT) | | | | | | disease | | +---------+---------+---------+---------+---------+---------+---------+---------+---------+ | History | 6145852 | | Active | | Rogers | [...] | | | +---------+---------+---------+---------+---------+---------+---------+---------+---------+ | DIABETI | 4097751 | | Removed | | Rogers | | Diabeti | | | C | | / | | | Laith [...] thy | | +---------+---------+---------+---------+---------+---------+---------+---------+---------+ | HYPERLI | 2703783 | | Active | | Rogers | | Hyperli | | | PIDEMIA | 4 | /30 | | /30 | Laith | | pidemia | | | | (SNOMED | | | | MD | | | | | | CT) | | | | | | | | +---------+---------+---------+---------+---------+---------+---------+---------+---------+ | History | 4620473 | | Active | | Rogers | [...] e | | +---------+---------+---------+---------+---------+---------+---------+---------+---------+ | CEREBRA | 7833210 | | Correct | | Rogers | [...] s | | +---------+---------+---------+---------+---------+---------+---------+---------+---------+ | ABDOMIN | 6960797 | | Removed | | Patricia | [...] | | | +---------+---------+---------+---------+---------+---------+---------+---------+---------+ | RLQ | 5500982 | | Removed | | Patricia | [...] fied | | +---------+---------+---------+---------+---------+---------+---------+---------+---------+ | CARPAL | 0486918 | | Active | | Rogers | | Carpal | | | TUNNEL | 9 | /25 | | /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 | | | | MD | | 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, LEFT | CT) | | | | | | e | | +---------+---------+---------+---------+---------+---------+---------+---------+---------+ | [facility] | [id number] | | Removed | | Rogers | [...] | | | +---------+---------+---------+---------+---------+---------+---------+---------+---------+ | GAIT | [id number] | | Active | | Rogers | | Abnorma | | | IMBALAN | 2 | | | | Laith | | l gait | | | CE | (SNOMED | | | | MD | | | | | | CT) | | | | | | | | +---------+---------+---------+---------+---------+---------+---------+---------+---------+ | BRAIN | [id number] | | Correct | | Rogers | [...] e | | +---------+---------+---------+---------+---------+---------+---------+---------+---------+ | PARESTH | [id number] | | Removed | | Rogers | | Paresth | | | ESIA, | | | | / | Laith | | esia of | | | HANDS | (SNOMED | | | | MD | | hand | | | | CT) | | | | | | | | +---------+---------+---------+---------+---------+---------+---------+---------+---------+ | PERIPHE | [id number] | | Correct | | Rogers | | Periphe | | | RAL | | | ion | /25 | Laith | | ral | | | NEUROPA | (SNOMED | | | | MD | | nerve | | | THY | CT) | | | | | | disease | | +---------+---------+---------+---------+---------+---------+---------+---------+---------+ | THYROID | [id number] | | Active | | Luz | | Thyroid | | | NODULE | 05 | /20 | | /20 | [place] | | nodule | | | | (SNOMED | | | | [facility] | | | | | | CT) | | | | | | | | +---------+---------+---------+---------+---------+---------+---------+---------+---------+ | TIA | [id number] | | Active | | Lauranc | [...] a | | +---------+---------+---------+---------+---------+---------+---------+---------+---------+ | SYNCOPE | [id number] | | Removed | | Lauranc | | Syncope | | | | 07 | / | | /10 | e W | | | | | | (SNOMED | | | | Lila | | | | | | CT) | | | | MD | | | | +---------+---------+---------+---------+---------+---------+---------+---------+---------+ | GASTROP | [id number] | | Active | | Lauranc | | 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 | | | | (SNOMED | | | | Lila | | syndrom | | | | CT) | | | | MD | | e | | +---------+---------+---------+---------+---------+---------+---------+---------+---------+ | CONSTIP | [id number] | | Active | | Lauranc | | Chronic | | | ATION, | 09 | /08 | | /08 | e W | | | | | CHRONIC | (SNOMED | | | | Lila | | constip | | | | CT) | | | | MD | | ation | | +---------+---------+---------+---------+---------+---------+---------+---------+---------+ | POSTHER | [id number] | | Active | | Lauranc | | Posther | | | 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 | (SNOMED | | | | Lila | | neuralg | | | [place] | CT) | | | | MD | | ia | | +---------+---------+---------+---------+---------+---------+---------+---------+---------+ | DIZZINE | [id number] | | Removed | | Lauranc | | Dizzine | | | SS | 03 | /08 | | /08 | e W | | ss | | | | (SNOMED | | | | Lila | | | | | | CT) | | | | MD | | | | +---------+---------+---------+---------+---------+---------+---------+---------+---------+ | DEHYDRA | [id number] | | Removed | | Lauranc | | Dehydra | | | TION | 6 | /08 | | /08 | e W | | tion | | | | (SNOMED | | | | Lila | | | | | | CT) | | | | MD | | | | +---------+---------+---------+---------+---------+---------+---------+---------+---------+ | DIABETE | [id number] | | Removed | | Lauranc | [...] | | | +---------+---------+---------+---------+---------+---------+---------+---------+---------+ | HYPERTE | [id number] | | Active | | Lauranc | | Hyperte | | | NSION | 3 | | | /08 | e W | [...] Take one | | | POTASSIUM | [id number] | [facility] | | CHLORIDE | tab daily | | | CHLORIDE | 5 | [facility] DNP | | ER 10 MEQ | in the AM | | | | | [facility] | | CR-TABS | | | | | | | + + + + + + + + | RELION | Use to | | | INSULIN | [id number] | [facility] | | INSULIN | inject | | | SYRINGE-NE | 2 | [facility] D[facility] | | SYRINGE | insulin 5 | | | EDLE U-100 | | [facility] | | 31G X | times | | | | | | | 10/09" 0.5 | daily Dx | | | | | | | ML | Code | | | | | | | | E11.40 | | | | | | + + + + + + + + | HUMALOG | 12 Units | | | INSULIN | [id number] | [facility] | | KWIKPEN | before | | | LISPRO | 9 | Ank[facility] DNP | | 100 | meals | | | | | [facility] | | UNIT/ML | SS:150-175 | | [...] Take one | | | LINACLOTID | [id number] | [facility] | | 145 MCG | tablet | | | E | 0 | Ankur DNP | | CAPS | daily as | | | | | [facility] | | | needed for | | | | | | | | | | | | | | | | constipati | | | | | | | | on. | | | | | | + + + + + + + + | COLACE 100 | 1 pill | | | DOCUSATE | [id number] | [facility] | | MG CAPS | twice | | | SODIUM | 0 | [facility] DNP | | | daily for | | | | | [facility] | | | soft | | | | | | | | stools | | | | | | + + + + + + + + | VITAMIN D | Take one | | | CHOLECALCI | 7625643654 | [facility] | | 1000 UNIT | tablet | | | FEROL | 1 | [facility] DNP | | TABS | daily in | | | | | [facility] | | | the AM | | | | | | + + + + + + + + | VOLTAREN 1 | apply 3-4 | | | DICLOFENAC | 4369124595 | [facility] | | % GEL | times QD | | | SODIUM | 7 | [facility] DNP | | | PRN pain, | | | | | [facility] | | | max 4 | | | | | | | | grams per | | | | | | | | applicatio | | | | | | | | n | | | | | | + + + + + + + + | CLONAZEPAM | Take one | | | CLONAZEPAM | [id number] | [facility] | | 0.5 MG | tablet | | | | 1 | Ankur DNP | | TABS | every 24 | | | | | [facility] | | | hours as | | | | | | | | needed for | | | | | | | | anxiety | | | | | | + + + + + + + + | LASIX 80 | 1 tab by | | | FUROSEMIDE | 5843173659 | [facility] | | MG TABS | mouth one | | | | 5 | [facility] DNP | | | time per | | | | | [facility] | | | day in the | | | | | | | | AM | | | | | | + + + + + + + + | LYRICA 100 | TAKE 1 | | | PREGABALIN | 4134533492 | [facility] | | MG CAPS | CAPSULE BY | | | | 8 | [facility] | | | MOUTH | | | | | [facility] | | | THREE | | | [...] TAKE 1 | | | IRBESARTAN | 4985670746 | [facility] | | 300 MG | TABLET BY | | | | 3 | [facility] | | TABS | MOUTH ONCE | | | | | [facility] | | | DAILY | | | | | | + + + + + + + + | EQ STOOL | TAKE 1 | | | DOCUSATE | [id number] | [facility] | | SOFTENER | CAPSULE BY | | | SODIUM | 5 | [facility] | | 100 MG | MOUTH | | | | | [facility] | | CAPS | TWICE | | | | | | | | DAILY FOR | | | | | | | | SOFT | | | | | | | | STOOLS | | | | | | + + + + + + + + | BASAGLAR | INJECT 68 | | | INSULIN | 7893868098 | [facility] | | KWIKPEN | UNITS | | | GLARGINE | 9 | Ankur DNP | | 100 | SUBCUTANEO | | | | | [facility] | | UNIT/ML | USLY IN | [...] Take one | | | PANTOPRAZO | 6777294210 | [facility] | | LE SODIUM | tablet by | | | LE SODIUM | 8 | [facility] DNP | | 40 MG TBEC | mouth once | | | | | [facility] | | | daily | | | | | | + + + + + + + + | NYSTATIN-T | Apply thin | | | NYSTATIN-T | 2137931631 | [facility] | | RIAMCINOLO | layer to | | | RIAMCINOLO | 5 | [facility] DNP | | NE | affected | | | NE | | [facility] | | 376476-5.1 | area BID | | | | | | | UNIT/GM-% | prn for | | | | | | | CREA | itching | | | | | | + + + + + + + + | LINZESS | Take one | | | LINACLOTID | [id number] | [facility] | | 145 MCG | tablet | | | E | 0 | Ank[facility] DNP | | CAPS | daily for | | | | | [facility] | | | constipati | | | | | | | | on. | | | | | | + + + + + + + + | FUROSEMIDE | TAKE 1 | | | FUROSEMIDE | 2553858596 | [facility] | | 80 MG | TABLET BY | | | | 5 | [facility] | | TABS | MOUTH ONCE | | | | | [facility] | | | DAILY IN | | | | | | | | THE | | | | | | | | MORNING | | | | | | + + + + + + + + | VOLTAREN 1 | apply 3-4 | | | DICLOFENAC | 9820040934 | Fredy | | % GEL | [...] TAKE 1 | | | CHOLECALCI | 8228523253 | [facility] | | 1000 UNIT | TABLET BY | | | FEROL | 0 | [facility] | | TABS | MOUTH ONCE | | | | | [facility] | | | DAILY IN | | | | | | | | THE | | | | | | | | MORNING | | | | | | + + + + + + + + | ONETOUCH | Use to | | | BLOOD | 2034184931 | [facility] | | VERIO | test | | | GLUCOSE | 1 | [facility] D[facility] | | w/Device | glucose | | | MONITORING | | [facility] | | KIT | four times | [...] use with | | | BLOOD | 8828710227 | [facility] | | PRIME | test [...] Use strip | | | GLUCOSE | 2912911496 | Be | | ULTRA BLUE | to checl | | | BLOOD | 0 | [place] | | STRP | glucose | | | | | d [facility] | | | four times | | | | | | | | daily. | | | | | | | | Dx: | | | | | | | | SMITH: 89 | | | | | | | | years | | | | | | + + + + + + + + | RELION | USE | | | INSULIN | 6222313916 | [facility] | | INSULIN | SYRINGE 4 | | | SYRINGE-NE | 2 | [facility] | | SYRINGE | TIMES | | | EDLE U-100 | | [facility] | | 31G X | DAILYDx | | | | | | | 10/09" 0.5 | Code | | | | | | | ML | E11.40 | | | | | | + + + + + + + + | BD PEN | USE PEN | | | INSULIN | 5306500380 | [facility] | | NEEDLE | NEEDLE(S) | | | PEN NEEDLE | 9 | [facility] DNP | | SHORT U/F | 4 TIMES | | | | | [facility] | | 31G X 8 MM | DAILYDx | | | | | | | | Code | | | | | | | | E11.40 | | | | | | + + + + + + + + | ONETOUCH | Use strip | | | GLUCOSE | 2787909932 | [facility] | | VERIO STRP | to checl | | | BLOOD | 0 | [facility] | | | glucose | | | | | [facility] | | | four times | | [...] Use to | | | GLUCOSE | 0288000252 | [facility] | | BLOOD | check [...] Take one | | | IRBESARTAN | 1968487295 | [facility] | | 300 MG | tablet | | | | 3 | [facility] D[facility] | | TABS | daily | | | | | [facility] | + + + + + + + + | BD INSULIN | Use to | | | INSULIN | 2261619379 | [facility] | | SYRINGE | inject | | | SYRINGE-NE | 6 | [facility] | | ULTRAFINE | insulin 5 | | | EDLE U-100 | | [facility] | | 29G X 1/2" | times per | | | | | | | 0.5 ML | day | | | | | | + + + + + + + + | RELION | Use to | | | GLUCOSE | 6605776855 | [facility] | | BLOOD | check | | | BLOOD | 4 | [facility] | | GLUCOSE | blood | | | | | [facility] | | TEST STRP | sugars | [...] use with | | | BLOOD | 8908592689 | [facility] | | PRIME | test | | | GLUCOSE | 2 | [facility] | | MONITOR | strips to | | | MONITORING | | [facility] | | DYLAN | test BG | | | SUPPL | | | | | daily | | | | | | + + + + + + + + | RELION | use when | | | GLUCOSE | 9892242576 | [facility] | | BLOOD | testing BG | | | BLOOD | 4 | [facility] | | GLUCOSE | | | | | | [facility] | | TEST STRP | | | | | | | + + + + + + + + | BIOTIN 1 | Take one | | | BIOTIN | 2186479453 | [facility] | | MG CAPS | daily in | | | | 2 | Pr[facility] | | | the AM | | | | | NCMA | + + + + + + + + | BASAGLAR | 68 Units | | | INSULIN | 9029058536 | [facility] | | KWIKPEN | every | | | GLARGINE | 9 | [facility] D[facility] | | 100 | morning | | | | | [facility] | | UNIT/ML | (34 units | | | | | | | SOPN | on each | | | | | | | | side) | | | | | | + + + + + + + + | BASAGLAR | 65 Units | | | INSULIN | 8044996471 | [facility] | | KWIKPEN | every | | | GLARGINE | 9 | [facility] D[facility] | | 100 | morning | | | | | [facility] | | UNIT/ML | | | | | | | | SOPN | | | | | | | + + + + + + + + | BASAGLAR | 60 Units | | | INSULIN | 2038182745 | [facility] | | KWIKPEN | every | | | GLARGINE | 9 | [facility] | | 100 | morning | | | | | [facility] | | UNIT/ML | | | | | | | | SOPN | | | | | | | + + + + + + + + | RELION | Use daily | | | GLUCOSE | 6886132220 | [facility] | | BLOOD | to check | | | BLOOD | 4 | [facility] | | GLUCOSE | blood | | | | | [facility] | | TEST STRP | sugar | | | | | | + + + + + + + + | DIABETIC | 1 pair per | | | DIABETIC | | [facility] | | ORTHOTIC | custom | | | ORTHOTIC | | [facility] | | SHOES | fit from | | | SHOES | | [facility] | | | podiatry | | | | | | | | E11.65, | | | | | | | | e11.21 | | | | | | + + + + + + + + | DIABETIC | 1 pair per | | | FOOT CARE | [id number] | [facility] | | INSOLES | custom | | | PRODUCTS | 1 | [facility] | | | fit from | | | | | [facility] | | | podiatry | | | | | | | | Dx. | | | | | | | | E11.65, | | | | | | | | e11.21 | | | | | | + + + + + + + + | BD INSULIN | Use 5 | | | INSULIN | 3904333818 | [facility] | | SYRINGE | times | | | SYRINGE-NE | 1 | [facility] | | ULTRAFINE | daily to | | | EDLE U-100 | | [facility] | | 29G X /2" | inject [...] Use daily | | | INSULIN | 1333278594 | [facility] | | NEEDLE | to inject | | | PEN NEEDLE | 0 | [facility] | | ORIGINAL | insulin | | | | | [facility] | | U/F 29G X | | | | | | | | 12.7MM | | | | | | | + + + + + + + + | RELION PEN | | | | INSULIN | 2337805397 | [facility] | | NEEDLES | | | | PEN NEEDLE | 4 | [facility] D[facility] | | 31G X 8 MM | | | | | | [facility] | + + + + + + + + | MISC | | | | MISC | | [facility] | | | | | | | | [facility] | | | | | | | | [facility] | + + + + + + + + | NERVE | | | | NERVE | | [facility] | | PAIN | | | | PAIN | | [facility] | | | | | | | | [facility] | + + + + + + + + | HEARTBU | | | | HEARTBU | | [facility] | | RN/NAUSEA* | | | | RN/NAUSEA* | | [facility] | | | | | | | | [facility] | + + + + + + + + | STROKE | | | | STROKE | | [facility] | | PREVENTION | | | | PREVENTION | | [facility] | | | | | | | | [facility] | + + + + + + + + | BLOOD | | | | BLOOD | | [facility] | | PRESSURE | | | | PRESSURE | | [facility] | | * | | | | * | | [facility] | + + + + + + + + | DIABETE | | | | DIABETE | | [facility] | | S | | | | S | | [facility] | | | | | | | | [facility] | + + + + + + + + | MIRALAX | 17 gm | | | POLYETHYLE | 1244663192 | [facility] | | POWD | daily | | | NE GLYCOL | 2 | [facility] | | | stirred | | | 3350 | | [facility] | | | into 4-8 | | [...] 1 pill | | | DOCUSATE | 4154014099 | [facility] | | MG CAPS | twice | | | SODIUM | 0 | [facility] | | | daily for | | | | | [facility] | | | soft | | | | | | | | stools | | | | | | + + + + + + + + | NOVOLOG | 12 Units | | | INSULIN | 2997412047 | [facility] | | 100 | before | | | ASPART | 1 | [facility] | | UNIT/ML | meals | | | | | [facility] | | SOLN | SS:150-175 | | [...] 1 capsule | | | PREGABALIN | 5889350271 | [facility] | | MG CAPS | three | | | | 8 | [facility] DNP | | | times | | | | | [facility] | | | daily for | | | | | | | | neuropathy | | | | | | + + + + + + + + | LYRICA 100 | 1 tab | | | PREGABALIN | 5707162941 | [facility] | | MG CAPS | three | | | | 8 | [facility] D[facility] | | | times per | | | | | [facility] | | | day. Pt | | | | | | | | states as | | | | | | | | needed | | | | | | + + + + + + + + | PROCHLORPE | Insert one | | | PROCHLORPE | 3565036305 | [facility] | | RAZINE 25 | | | | RAZINE | 0 | [facility] | | MG SUPP | suppositor | | | | | [facility] | | | y rectally | | | | | | | | every 24 | | | | | | | | hours as | | | | | | | | needed | | | | | | + + + + + + + + | VICTOZA 18 | .6 mg x 1 | | | LIRAGLUTID | 8584337527 | [facility] | | MG/3ML | week then | | | E | 2 | [facility] D[facility] | | SOPN | 1.2 mg | | | | | [facility] | | | daily per | | | | | | | | week | | | | | | + + + + + + + + | RELION PEN | | | | INSULIN | 7127619848 | [facility] | | NEEDLES | | | | PEN NEEDLE | 4 | Mark DO | | 31G X 8 MM | | | | | | | + + + + + + + + | NOVOLOG | 3U before | | | INSULIN | 0671604580 | Scarlett | | 100 | lunch [...] 1 tid | | | PREGABALIN | 5827995452 | Christen Ramirez | | MG CAPS | | | | | 8 | [place] | | | | | | | | [facility] | + + + + + + + + | PROMETHAZI | Take one | | | PROMETHAZI | 2110349147 | [facility] | | NE HCL 25 [...] Insert one | | | PROCHLORPE | 6425454667 | [facility] | | RAZINE 25 | [...] Take one | | | CLONAZEPAM | 6482424808 | [facility] | | 0.5 MG | [...] Take one | | | PANTOPRAZO | 1611142108 | [facility] | | LE SODIUM | tablet by | | | LE SODIUM | 8 | [facility] | | 40 MG TBEC | mouth once | | | | | [facility] | | | daily | | | | | | + + + + + + + + | NITROFURAN | Take one | | | NITROFURAN | 5862507788 | [facility] | | TOIN | capsule [...] x 1 | | | LIRAGLUTID | 6880239390 | Christen Escudero. | | MG/3ML | week then | | | E | 2 | [facility] | | SOPN | 1.2 mg | | | | | [facility] | | | daily per | | | | | | | | week | | | | | | + + + + + + + + | VICTOZA 18 | Inject 0.6 | | | LIRAGLUTID | 6628837753 | Christen Escudero. | | MG/3ML | mg daily | | | E | 2 | [facility] | | SOPN | | | | | | [facility] | + + + + + + + + | DRAMAMINE | take 1-2 | | | DIMENHYDRI | 0891922073 | Christen Escudero. | | 50 MG TABS | tabs 4 | | | MARCELA | 2 | [facility] | | | times per | | | | | [facility] | | | day as | | | | | | | | needed | | | | | | + + + + + + + + | NEURONTIN | take 1 tab | | | GABAPENTIN | 5972660519 | Christen J. | | 300 MG | po tid . | | | | 4 | [place] | | CAPS | Pt states | | | | | [facility] | | | as needed | | | | | | + + + + + + + + | PIOGLITAZO | Take 1 tab | | | PIOGLITAZO | 3636440374 | Christen Ramirez | | NE HCL 15 | by mouth | | | NE HCL | 6 | [facility] | | MG TABS | one time | | | | | [facility] | | | per day in | | | | | | | | the AM | | | | | | + + + + + + + + | NITROFURAN | Take one | | | NITROFURAN | 8031566604 | [facility] | | TOIN | capsule [...] NITROFURAN | | | | NITROFURAN | 8994403111 | [facility] | | TOIN | | [...] Take 1 | | | GLIPIZIDE | 4832754734 | [facility] | | XL 2.5 MG | tablet | | | | 1 | [facility] D[facility] | | [id number] | p.o. | | | | | [facility] | | | q.a.m. | | | | | | + + + + + + + + | NOVOLOG | 3U before | | | INSULIN | 9326417068 | David | | 100 | lunch [...] 3U before | | | INSULIN | 9943174002 | Christen J. | | 100 | lunch and | | | LISPRO | 1 | [facility] | | UNIT/ML | 5U before | | | | | [facility] | | SOLN | Dinner | | [...] <150 - | | | INSULIN | 4609117155 | Christen Ramirez | | 100 | No insulin | | | LISPRO | 1 | [facility] | | UNIT/ML | BS | | | (HUMAN) | | [facility] | | SOLN | 150-200 | | [...] Take as | | | EXENATIDE | 5162820607 | Christen Ramirez | | MCG PEN 5 | directed | | | | 1 | [facility] | | MCG/0.02ML | once daily | | | | | [facility] | | SOPN | in the AM | | | | | | + + + + + + + + | BASAGLAR | 1 pen | | | INSULIN | 0726021760 | Christen Ramirze | | KWIKPEN | every 3 | | | GLARGINE | 9 | [facility] | | 100 | days 56 | | | | | [facility] | | UNIT/ML | units q | | | | | | | SOPN | Day | | | | | | + + + + + + + + | BASAGLAR | 56 Units | | | INSULIN | 3403869279 | [facility] | | KWIKPEN | every [...] Inject 0.6 | | | LIRAGLUTID | [id number] | Christen Ramirez | | MG/3ML | mg daily | | | E | 2 | [place] | | SOPN | | | | | | [facility] | + + + + + + + + | VICTOZA 18 | 5 unit AM | | | LIRAGLUTID | 8273617942 | Christen Ramirez | | MG/3ML | and 5 | | | E | 2 | [facility] | | SOPN | units PM | | | | | [facility] | + + + + + + + + | BASAGLAR | 1 pen | | | INSULIN | 7391558517 | Christen Escudero. | | KWIKPEN | every 3 | | | GLARGINE | 9 | [facility] | | 100 | days 56 | | | | | [facility] | | UNIT/ML | units q | | | | | | | SOPN | Day | | | | | | + + + + + + + + | MECLIZINE | One tab by | | | MECLIZINE | 7946041551 | [facility] | | HCL 25 MG | mouth | | | HCL | 0 | [facility] | | TABS | three | | | | | [facility] | | | times per | | [...] 56 Units | | | INSULIN | 3921974497 | Christen Ramirez | | KWIKPEN | by mouth | | | GLARGINE | 9 | [place] | | 100 | every | | | | | [facility] | | UNIT/ML | morning | | | | | | | SOPN | | | | | | | + + + + + + + + | SUPREP | mix and | | | NA | 0227699247 | Maulik | | BOWEL PREP | [...] mix and | | | NA | 8595335715 | Emeka | | BOWEL PREP | [...] pill BID | | | DOCUSATE | 4043427465 | [facility] | | MG CAPS | | | | SODIUM | 0 | [facility] | | | | | | | | [facility] | + + + + + + + + | RELION | Use daily | | | GLUCOSE | 8338853226 | Tiesha | | BLOOD | to [...] per | | | FOOT CARE | [id number] | T[facility] | | INSOLES | custom | | | PRODUCTS | 1 | [place] MD | | | fit from | [...] 1 pill | | | CEPHALEXIN | [id number] | Tiesha | | MG CAPS | twice a | | | | 1 | [place] MD | | | day for 7 | | | | | | | | days | | | | | | + + + + + + + + | BD INSULIN | Use 5 | | | INSULIN | [id number] | [facility] | | SYRINGE | times | | | SYRINGE-NE | 1 | Aknur DNP | | ULTRAFINE | daily to | | | EDLE U-100 | | [facility] | | 29G X 1/2" | inject [...] 56 units | | | INSULIN | [id number] | Kaykay | | UNIT/ML | qAM | | | GLARGINE | 3 | Mora DO | | ANGYN | | | | | | | + + + + + + + + | KEFLEX 500 | 1 pill | | | CEPHALEXIN | [id number] | Pako | | MG CAPS | twice a | | | | 1 | Middlekauf | | | day for 7 | | | | | f [facility] | | | days | | | | | | + + + + + + + + | LANTUS 100 | 50 units | | | INSULIN | [id number] | Pako | | UNIT/ML | once per | | | GLARGINE | 3 | [facility]kauf | | SOLN | day. Pt | | | | | f [facility] | | | states she | | | | | | | | is taking | | | | | | | | 56 units | | | | | | | | every AM | | | | | | + + + + + + + + | BIOTIN 1 | Take one | | | BIOTIN | [id number] | [facility] | | [facility] CAP[facility] | daily in | | | | 2 | Ankur DNP | | | the AM | | | | | [facility] | + + + + + + + + | VICTOZA 18 | | | | LIRAGLUTID | [id number] | [facility] | | MG/3ML | | | | E | 2 | Ethan MD | | SOPN | | | | | | | + + + + + + + + | BYETTA 5 | Take as | | | EXENATIDE | [id number] | Christen Ramirez | | MCG PEN 5 | directed | | | | 1 | [place] | | MCG/0.02ML | once daily | | | | | [facility] | | SOPN | in the AM | | | | | | + + + + + + + + | VITAMIN D | Take one | | | CHOLECALCI | [id number] | [facility] | | 1000 UNIT | tablet | | | FEROL | 1 | Ankur DNP | | TABS | daily in | | | | | [facility] | | | the AM | | | | | | + + + + + + + + | POTASSIUM | Take one | | | POTASSIUM | [id number] | [facility] | | CHLORIDE | cap daily | | | CHLORIDE | 1 | Ankur DNP | | ER 10 MEQ | in the AM | | | | | [facility] | | CR-CAPS | | | | | | | + + + + + + + + | NEURONTIN | take 1 tab | | | GABAPENTIN | [id number] | [facility] | | 300 MG | po tid . | | | | 4 | Ethan MD | | CAPS | Pt states | | | | | | | | as needed | | | | | | + + + + + + + + | LASIX 80 | 1 tab by | | | FUROSEMIDE | [id number] | [facility] | | MG TABS | mouth one | | | | 5 | Ankur DNP | | | time per | | | | | [facility] | | | day in the | | | | | | | | AM | | | | | | + + + + + + + + | LYRICA 100 | 1 tab | | | PREGABALIN | [id number] | Christen Ramirez | | MG CAPS | three | | | | 8 | [place] | | | times per | | | | | [facility] | | | day. Pt | | | | | | | | states as | | | | | | | | needed | | | | | | + + + + + + + + | OMEPRAZOLE | Take one | | | OMEPRAZOLE | [id number] | [facility] | | 40 MG | by mouth | | | | 0 | Ankur DNP | | CPDR | one time | | | | | [facility] | | | per day | | [...] tab by | | | CLOPIDOGRE | [phone] | [facility] | | MG TABS | mouth one | | | L | 1 | Ankur DNP | | | time per | | | BISULFATE | | [facility] | | | day in the | | | | | | | | evening | | | | | | + + + + + + + + | LIPITOR 20 | take 1 | | | ATORVASTAT | [phone] | [facility] | | MG TABS | tablet by | | | IN CALCIUM | 3 | Ankur DNP | | | mouth | | | | | [facility] | | | daily in | | | | | | | | the | | | | | | | | evening | | | | | | + + + + + + + + | VALSARTAN | Take one | | | VALSARTAN | [phone] | [facility] | | 160 MG | tablet | | | | 7 | Ankur DNP | | TABS | daily in | | | | | [facility] | | | the AM | | | | | | + + + + + + + + | PIOGLITAZO | Take 1 tab | | | PIOGLITAZO | 7164304458 | [facility] | | NE HCL 15 [...] 25 units | | | INSULIN | [id number] | [facility] | | UNIT/ML | two [...] 18 | | | | LIRAGLUTID | [id number] | Bailey W | | MG/3ML | | | | E | 2 | Lila MD | | SOPN | | | | | | | + + + + + + + + | BYETTA 5 | 0.02 ml | | | EXENATIDE | [id number] | Bailey W | | MCG PEN 5 | injection | | | | 1 | Lila MD | | MCG/0.02ML | two times | | | | | | | SOPN | per day | | | | | | + + + + + + + + | DRAMAMINE | take 1-2 | | | DIMENHYDRI | 0991726469 | Bailey W | | 50 MG [...] 1 | | | | BIOTIN | [id number] | Kali | | MG CAPS | | | | | 2 | Hakeem DPM | + + + + + + + + | VITAMIN D | | | | CHOLECALCI | 9037277824 | Kali | | 1000 UNIT | | | | FEROL | 1 | Hakeem DPM | | TABS | | | | | | | + + + + + + + + | POTASSIUM | | | | POTASSIUM | 2930952340 | Kali | | CHLORIDE | | | | CHLORIDE | 1 | Palacio DPM | | ER 10 MEQ | | | | | | | | CR-CAPS | | | | | | | + + + + + + + + | BUSPIRONE | 1 TAB | | | BUSPIRONE | 2108740289 | Kali | | HCL 7.5 MG | three | | | HCL | 1 | Hakeem DPM | | TABS | times per | | | | | | | | day | | | | | | + + + + + + + + | COLACE 100 | 1 tab by | | | DOCUSATE | [id number] | Kali | | MG CAPS | mouth | | | SODIUM | 0 | Palacio DPM | | | daily at | | | | | | | | bedtime | | | | | | + + + + + + + + | RELION | Use to | | | GLUCOSE | [id number] | Kali | | BLOOD | test BG | | | BLOOD | 4 | Palacio DPM | | GLUCOSE | one time | | | | | | | TEST STRP | per day | | | | | | + + + + + + + + | ONDANSETRO | 1 tab | | | ONDANSETRO | 8967490480 | Kali | | N HCL 4 MG | every 4 | | | N HCL | 3 | Palacio DPM | | TABS | hours | | | | | | + + + + + + + + | CILOSTAZOL | 1 tab two | | | CILOSTAZOL | 1873048055 | Kali | | 100 MG | times per | | | | 1 | Palacio DPM | | TABS | day | | | | | | + + + + + + + + | LANTUS 100 | 25 units | | | INSULIN | 8820914252 | Franciscoance W | | UNIT/ML | two times | | | GLARGINE | 3 | Lila MD | | SOLN | per day | | | | | | + + + + + + + + | NEURONTIN | take 1 tab | | | GABAPENTIN | 0712340488 | Laurance W | | 300 MG [...] tab by | | | FUROSEMIDE | 4295796045 | Laurance W | | MG TABS | mouth one | | | | 5 | Lila MD | | | time per | | | | | | | | day | | | | | | + + + + + + + + | FUROSEMIDE | 1 tab one | | | FUROSEMIDE | 8853229851 | Laurance W | | 40 MG | time per | | | | 5 | Lila MD | | TABS | day | | | | | | + + + + + + + + | BUSPIRONE | 1 TAB | | | BUSPIRONE | 6284660209 | Laurance W | | HCL 7.5 MG | three | | | HCL | 1 | Lila MD | | TABS | times per | | | | | | | | day | | | | | | + + + + + + + + | COLACE 100 | 1 tab by | | | DOCUSATE | [id number] | Laurance W | | MG CAPS | mouth | | | SODIUM | 0 | Lila MD | | | daily at | | | | | | | | bedtime | | | | | | + + + + + + + + | LYRICA 100 | 1 tab | | | PREGABALIN | 6377186056 | Laurance W | | MG CAPS | three | | | | 8 | Lila MD | | | times per | | | | | | | | day | | | | | | + + + + + + + + | GABAPENTIN | Take 2 | | | GABAPENTIN | 3201444487 | Laurance W | | 300 MG [...] by mouth | | | TRIMETHOPR | 9006056153 | Laurance W | | 800-160 | twice a | | | IM-SULFAME | 1 | Lila MD | | MG TABS | day for 3 | | | THOXAZOLE | | | | | days | | | | | | + + + + + + + + | BACTRIM DS | 1 by mouth | | | TRIMETHOPR | 2458486955 | Laurance W | | 800-160 | [...] 1 tab | | | MECLIZINE | 8199494345 | Laurance W | | HCL 25 MG | three | | | HCL | 0 | Lila MD | | TABS | times per | | | | | | | | day | | | | | | + + + + + + + + | GLUCOPHAGE | 1 tab one | | | METFORMIN | 2569324365 | Laurance W | | XR 500 MG | time per | | | HCL | 3 | Lila MD | | [id number] | day | | | | | | + + + + + + + + | BD INSULIN | Use 5 | | | INSULIN | 1868685985 | Bailey W | | SYRINGE | [...] 1 tab | | | PREGABALIN | 0020011056 | Bailey W | | MG CAPS [...] Use daily | | | INSULIN | 3765443174 | Ambrose | | NEEDLE | to inject | | | PEN NEEDLE | 0 | Ankur DNP | | ORIGINAL | insulin | | | | | LABORATORY [facility] | | U/F 29G X | | | | | | | | 12.7MM | | | | | | | + + + + + + + + | PIOGLITAZO | Take 1 tab | | | PIOGLITAZO | 9122892358 | Laurance W | | NE HCL 15 | by mouth | | | NE HCL | 6 | Lila MD | | MG TABS | one time | | | | | | | | per day | | | | | | + + + + + + + + | FLUCONAZOL | take one | | | FLUCONAZOL | 3160872894 | Franciscoance W | | E 150 MG | tablet PO | | | E | 1 | Lila MD | | TABS | x 1 repeat | | | | | | | | in 3 days | | | | | | + + + + + + + + | LYRICA 50 | TAKE ONE | | | PREGABALIN | 5159038710 | Kesha | | MG CAPS | [...] Take 2 | | | GABAPENTIN | 6256462619 | Laurance W | | 300 MG [...] 0.02 ml | | | EXENATIDE | 0078549701 | Bailey W | | MCG PEN 5 | injection | | | | 1 | Lila MD | | MCG/0.02ML | two times | | | | | | | SOPN | per day | | | | | | + + + + + + + + | BYETTA 5 | 0.2 ml | | | EXENATIDE | 1052985145 | Bailey W | | MCG PEN 5 | injection | | | | 1 | Lila MD | | MCG/0.02ML | two times | | | | | | | SOPN | per day | | | | | | + + + + + + + + | LYRICA 50 | TAKE ONE | | | PREGABALIN | 4860129973 | Bailey W | | MG CAPS [...] 1 tab | | | MECLIZINE | 3613644765 | Bailey W | | HCL 25 MG | three | | | HCL | 0 | Lila MD | | TABS | times per | | | | | | | | day | | | | | | + + + + + + + + | CILOSTAZOL | 1 tab two | | | CILOSTAZOL | 8536669948 | Franciscoance W | | 100 MG | times per | | | | 1 | Lila MD | | TABS | day | | | | | | + + + + + + + + | ONDANSETRO | 1 tab | | | ONDANSETRO | 8570957719 | Laurance W | | N HCL 4 MG | every 4 | | | N HCL | 3 | Lila MD | | TABS | hours | | | | | | + + + + + + + + | LYRICA 50 | 1 tab | | | PREGABALIN | 0039332943 | Laurance W | | MG CAPS | three | | | | 8 | Lila MD | | | times per | | | | | | | | day | | | | | | + + + + + + + + | KEFLEX 500 | one po TID | | | CEPHALEXIN | 8184489787 | Susanna | | MG CAPS | | | | | 1 | Medel MD | + + + + + + + + | NYSTATIN-T | Apply thin | | | NYSTATIN-T | 9387927730 | Ambrose | | RIAMCINOLO | layer to | | | RIAMCINOLO | 5 | Ankur DNP | | NE | affected | | | NE | | LABORATORY [facility] | | 066032-9.1 | area BID | | | | | | | UNIT/GM-% | prn for | | | | | | | CREA | itching | | | | | | + + + + + + + + | FLUCONAZOL | take one | | | FLUCONAZOL | 7816650717 | Susanna | | E 150 MG | tablet PO | | | E | 1 | Gianfranco LUIS | | TABS | x 1 repeat | | | | | | | | in 3 days | | | | | | + + + + + + + + | ASPIRIN | take 1 | | | ASPIRIN | 2987628100 | Bailey W | | 325 MG [...] tab by | | | CLOPIDOGRE | 2797464367 | Laurance W | | MG TABS | mouth one | | | L | 1 | Lila MD | | | time per | | | BISULFATE | | | | | day | | | | | | + + + + + + + + | LYRICA 50 | 1 tab | | | PREGABALIN | 5739476489 | Laurance W | | MG CAPS | three | | | | 8 | Lila MD | | | times per | | | | | | | | day | | | | | | + + + + + + + + | GLUCOPHAGE | 1 tab one | | | METFORMIN | 8919055062 | Laurance W | | XR 500 MG | time per | | | HCL | 3 | Lila MD | | [id number] | day | | | | | | + + + + + + + + | MECLIZINE | One tab by | | | MECLIZINE | 7508947957 | Laurance W | | HCL 25 [...] 10ml's two | | | METFORMIN | 1965943644 | Laurance W | | MG/5ML | [...] Take 2 | | | GABAPENTIN | 8572464675 | Laurance W | | 300 MG [...] TAB one | | | VALSARTAN | 2429800962 | Bailey W | | 160 MG | time per | | | | 8 | Lila MD | | TABS | day | | | | | | + + + + + + + + | DULOXETINE | 1 tab one | | | DULOXETINE | 7548873387 | Bailey W | | HCL 30 MG | time per | | | HCL | 6 | Lila MD | | CPEP | day | | | | | | + + + + + + + + | GABAPENTIN | take 2 | | | GABAPENTIN | 3707090619 | Laurance W | | 300 MG [...] tab one | | | DULOXETINE | 8681475625 | Laurance W | | HCL 30 MG | time per | | | HCL | 6 | Lila MD | | CPEP | day | | | | | | + + + + + + + + | VICTOZA 18 | 1.2 mg | | | LIRAGLUTID | 7575800859 | Laurance W | | MG/3ML | injected | | | E | 2 | Lila MD | | SOPN | martin | | | | | | + + + + + + + + | DIOVAN 320 | 1 TAB one | | | VALSARTAN | 1937234943 | Laurance W | | MG TABS | time per | | | | 4 | Lila MD | | | day | | | | | | + + + + + + + + | MECLIZINE | One tab by | | | MECLIZINE | 8784453216 | Laurance W | | HCL 25 [...] one time | | | VALSARTAN | 4787440658 | Mariano | | MG TABS | per day | | | | 4 | Ariella | | | | | | | | CCMA | + + + + + + + + | GABAPENTIN | take 2 | | | GABAPENTIN | 2513073709 | Mariano | | 300 MG | [...] Take one | | | OMEPRAZOLE | 1888946709 | Laurance W | | 40 MG [...] take 2 | | | GABAPENTIN | 6348765880 | Laurance W | | 300 MG [...] two times | | | MECLIZINE | 6946712692 | Laurance W | | HCL 25 MG | per day | | | HCL | 0 | Lila MD | | TABS | | | | | | | + + + + + + + + | DIOVAN 320 | 1 tab one | | | VALSARTAN | 6944739036 | Laurance W | | MG TABS | time per | | | | 4 | Lila MD | | | day | | | | | | + + + + + + + + | VICTOZA 18 | 0.6 mg | | | LIRAGLUTID | 0949728276 | Laurance W | | MG/3ML | [...] take 1 | | | ASPIRIN | 8428002954 | Rogers | | 325 MG | [...] tab one | | | SITAGLIPTI | 7795280604 | Bailey W | | 100 MG | time per | | | N | 2 | Lila LUIS | | TABS | day | | | PHOSPHATE | | | + + + + + + + + | DIOVAN 160 | 1 by mouth | | | VALSARTAN | 0930992517 | Bailey W | | MG TABS | every day | | | | 4 | Lila MD | + + + + + + + + | GABAPENTIN | 2 tabs two | | | GABAPENTIN | 7381285681 | Laurance W | | 300 MG | times per | | | | 5 | Lila MD | | CAPS | day | | | | | | + + + + + + + + | LANTUS 100 | 56 units | | | INSULIN | 9564328593 | Laurance W | | UNIT/ML | in the | | | GLARGINE | 3 | Lila MD | | SOLN | morning | | | | | | + + + + + + + + | RIOMET 500 | 10ml's two | | | METFORMIN | 2509971005 | Laurance W | | MG/5ML | [...] tab at | | | GABAPENTIN | 2233278325 | Laurance W | | 100 MG [...] 28 units | | | INSULIN | 2746107139 | Bailey W | | UNIT/ML | two times | | | GLARGINE | 3 | Lila MD | | SOLN | per day | | | | | | + + + + + + + + | LISINOPRIL | take 1 | | | LISINOPRIL | 3196992094 | Rogers | | 20 MG | tablet by | | | | 1 | Laith LUIS | | TABS | mouth | | | | | | | | daily | | | | | | + + + + + + + + | MECLIZINE | two times | | | MECLIZINE | 9369747319 | Mariano | | HCL 25 MG | per day | | | HCL | 0 | Ariella | | TABS | | | | | | CCMA | + + + + + + + + | ERGOCALCIF | One | | | ERGOCALCIF | 8090461000 | Mariano | | QUANG 85552 | capsule by | | | QUANG [...] two times | | | GABAPENTIN | 3960115943 | Mariano | | 100 MG | per day | | | | 1 | Ariella | | CAPS | | | | | | CCMA | + + + + + + + + | METFORMIN | two times | | | METFORMIN | 2671818286 | Mariano | | HCL 1000 | per day | | | HCL | 5 | Ariella | | MG TABS | | | | | | CCMA | + + + + + + + + | RIOMET 500 | 10ml QAM | | | METFORMIN | 4335772651 | Mariano | | MG/5ML | Liquid due | | | HCL | 1 | Ariella | | SOLN | to | | | | | CCMA | | | Dysphagia | | | | | | + + + + + + + + | ASPIRIN EC | take 1 | | | ASPIRIN | 0045062466 | Mariano | | 325 MG | tablet | | | | 1 | Ariella | | TBEC | daily | | | | | CCMA | + + + + + + + + | ASPIRIN 81 | one time | | | ASPIRIN | 2360245874 | Mariano | | MG ORAL | per day | | | | 5 | Ariella | | TABLET | | | | | | CCMA | + + + + + + + + | GABAPENTIN | 1 by mouth | | | GABAPENTIN | 3618804312 | Laurance W | | 100 MG [...] take 1 | | | ATORVASTAT | 4865397047 | Laurance W | | MG TABS | tablet by | | | IN CALCIUM | 3 | Lila MD | | | mouth | | | | | | | | daily | | | | | | + + + + + + + + | ASPIRIN EC | take 1 | | | ASPIRIN | 4580847201 | Rogers | | 325 MG | tablet | | | | 1 | Laith MD | | TBEC | daily | | | | | | + + + + + + + + | RELION | Use to | | | GLUCOSE | 2789136167 | Bailey W | | BLOOD | test BG | | | BLOOD | 4 | Lila MD | | GLUCOSE | one time | | | | | | | TEST STRP | per day | | | | | | + + + + + + + + | RIOMET 500 | 10ml QAM | | | METFORMIN | 2036702980 | Laurance W | | MG/5ML | Liquid due | | | HCL | 1 | Lila MD | | SOLN | to | | | | | | | | Dysphagia | | | | | | + + + + + + + + | ERGOCALCIF | One | | | ERGOCALCIF | 4565689284 | Laurance W | | QUANG 90640 | capsule by | | | QUANG [...] one tablet | | | DOCUSATE | 3854007058 | Laurance W | | MG CAPS | by mouth | | | SODIUM | 0 | Lila MD | | | at bedtime | | | | | | + + + + + + + + | GABAPENTIN | one tablet | | | GABAPENTIN | 4165749969 | Laurance W | | 100 MG [...] by mouth | | | MECLIZINE | 6389994351 | Laurance W | | HCL 25 [...] by mouth | | | LISINOPRIL | 7981977831 | Laurance W | | 5 MG TABS | one time | | | | 1 | Lila MD | | | per day | | | | | | + + + + + + + + | COLACE 100 | one tablet | | | DOCUSATE | 7461984008 | Laurance W | | MG CAPS | by mouth | | | SODIUM | 0 | Lila MD | | | at bedtime | | | | | | + + + + + + + + | MECLIZINE | 1 by mouth | | | MECLIZINE | 1647877417 | Laurance W | | HCL 25 [...] one tablet | | | GABAPENTIN | 3071814254 | Laurance W | | 100 MG [...] one tablet | | | METFORMIN | 0109437058 | Laurance W | | HCL 1000 | by mouth | | | HCL | 5 | Lila MD | | MG TABS | twice a | | | | | | | | day | | | | | | + + + + + + + + | ASPIRIN 81 | 1 by mouth | | | ASPIRIN | 3873726346 | Laurance W | | MG ORAL | every day | | | | 5 | Lila MD | | TABLET | | | | | | | + + + + + + + + | HUMALOG | BS <150 - | | | INSULIN | 1750328775 | Tiesha | | 100 | No insulin | | | LISPRO | 1 | [place] MD | | UNIT/ML | BS | [...] 56 units | | | INSULIN | 1875082726 | Laurance W | | UNIT/ML | [...] she had | | | Active | Thepablo MD | | | redness [...] | | | | | | | LABORATORY [facility] | + + + + + + [...] + + + + + + Results No information available. Plan of Care + + + + | Type | Date | Detail | + + + + | Referral | | Ophthalmology Consult | | | | [facility], | | | | [address], [place], | | | | [place], [address] | | | | | + + + + | Referral | | Ophthalmology Consult | | | | [facility], | | | | [address], [place], | | | | [place], [address] | | | | | + + + + | Referral | | [facility] | | | | Dian Atkins, [address] | | | | [address], | | | | [place], [address] | | | | | + + + + +---+ + | | Referral excluded from report: | +---+ + + + + + | Referral | | [facility] | | | | Dian Atkins, [address] | | | | [address], | | | | [place], [address] | | | | | + + [...] | + + + + + | [id number] | Overweight | | | + + + + + | [id number] | Depression | | | | | Screening | | | + + + + + | [id number] | Overweight | | | + + + + + | [id number] | Overweight | | | + + + + + | [id number] | Overweight | | | + + + + + | [id number] | Overweight | | | + + + + + | [id number] | Overweight | | | + + + + + | CPT-07234 | Glucose by monitor | | | + + + + + | [id number] | Overweight | | | + + + + + | UA CULT IF MULTIPLE | Urinalysis Culture | | | | | If Indicat | | | + + + + + | GLYCO HGB 01627 | Glyco Hemoglobin, | | | | | A1C | | | + + + + + | CPT-64434 | UA Dipstick | | | + + + + + | CPT-34904 45537 | XR Knee WgtB Bilat | | | | | AP W 1-2V-Rt | | | + + + + + | [id number] | Overweight | | | + + + + + | GLYCO HGB 93255 | Glyco Hemoglobin, | | | | | A1C | | | + + + + + | CPT-03702 | Adm 1st Inj No | | | | | counseling or >18 | | | + + + + + | CPT-62841 | Prevnar 13 | | | | | (Pneumococcal >7 | | | + + + + + | [id number] | Overweight | | | + + + + + | CPT-82275 | Physical Therapy | | | | | Evaluation | | | + + + + + | CPT-25962 | Glucose by monitor | | | + + + + + | [id number] | Overweight | | | + + + + + | [id number] | Overweight | | | + + + + + | GLYCO HGB 51350 | Glyco Hemoglobin, | | | | | A1C | | | + + + + + | GLYCO HGB 14074 | Glyco Hemoglobin, | | | | | A1C | | | + + + + + | [id number] | Overweight | | | + + + + + | RISK 93034 | Lipid Profile | | | + + + + + | GLYCO HGB 22797 | Glyco Hemoglobin, | | | | | A1C | | | + + + + + +---+ + | | Order excluded from report: | +---+ + + + + + + | VIT D HYDR 82573 | Vit D, 25 hydroxy | | | + + + + + Vital Signs + + +-------+---------+ + | Date | Name | Value | Unit | Description | + + +-------+---------+ + | | BMI (Body Mass | 37.91 | kg/m2 | Body Mass Index | [...] +-------+---------+ + | | Weight Measured | 193.4 | [lb_av] | weight E&M | + [...]
--- OUTSIDE RECORDS SUMMARY | ~2019-03-25 | XMS | Clinical Summary ---
Demographics + + + | Address | [address] | | | [place] [address] | + + + | Home Phone | | + + + | Preferred Language | Unknown | + + + | Marital Status | D | + + + | Religion Affiliation | Unknown | + + + | Race | Unspecified | + + + | Ethnic Group | or | + + + Author + + + | Author | [facility] | + + + | Organization | [facility] | + + + | Address | [address] | | | [place] [address] | + + + | Phone | Unavailable | + + + Care Team Providers + +------+ + | Care Classifying Machine Operator Name | Role | Phone [...] fied | | +---------+---------+---------+---------+---------+---------+---------+---------+---------+ | DIABETE | [id number] | | Active | | David W | | Diabeti | | | S | [id number] | /15 | | /15 | Theen [...] s | | +---------+---------+---------+---------+---------+---------+---------+---------+---------+ | MUSCLE | [id number] | | Active | | Christen | | Muscle | | | PAIN | 1 | | | /07 | J. | | pain | | | | (SNOMED | | | | [place] | | | | | | CT) | | | | ta BATH MIXER | | | | +---------+---------+---------+---------+---------+---------+---------+---------+---------+ | DIABETE | [id number] | | Active | | David W | | Diabeti | | | S | 838329 | /11 | | /12 | Theen [...] s | | +---------+---------+---------+---------+---------+---------+---------+---------+---------+ | MILD | 1307391 | | Active | | Maulik | [...] uterus | | +---------+---------+---------+---------+---------+---------+---------+---------+---------+ | COLONIC | 9990494 | | Active | | Emeka | [...] | | | +---------+---------+---------+---------+---------+---------+---------+---------+---------+ | CONSTIP | 6945649 | | Active | | Emeka | | Constip | | | ATION | 8 | /13 | | /13 | Petre | | ation | | | | (SNOMED | | | | MD | | | | | | CT) | | | | | | | | +---------+---------+---------+---------+---------+---------+---------+---------+---------+ | CHANGE | 1948556 | | Active | | Emeka | | Altered | | | IN | 9 | /13 | | /13 | Petre | | bowel | | | BOWEL | (SNOMED | | | | MD | | functio | | | HABITS | CT) | | | | | | n | | +---------+---------+---------+---------+---------+---------+---------+---------+---------+ | DECREAS | 4263581 | | Active | | Emeka | | Decreas | | | ED | 6 | /13 | | /13 | Petre | | e in | | | APPETIT | (SNOMED | | | | MD | | appetit | | | E | CT) | | | | | | e | | +---------+---------+---------+---------+---------+---------+---------+---------+---------+ | WEIGHT | [id number] | | Active | | Emeka | | Abnorma | | | LOSS | 01 | /13 | | /13 | Petre | | l | | | ABNORMA | (SNOMED | | | | MD | | weight | | | L | CT) | | | | | | loss | | +---------+---------+---------+---------+---------+---------+---------+---------+---------+ | NAUSEA | 7051849 | | Active | | Emeka | | Nausea | | | ALONE | 07 | /13 | | /13 | Petre | | | | | | (SNOMED | | | | MD | | | | | | CT) | | | | | | | | +---------+---------+---------+---------+---------+---------+---------+---------+---------+ | RECTAL | 9994287 | | Active | | Emeka | | Rectal | | | BLEEDIN | 2 | /13 | | /13 | Petre | | hemorrh | | | G | (SNOMED | | | | MD | | age | | | | CT) | | | | | | | | +---------+---------+---------+---------+---------+---------+---------+---------+---------+ | DEMENTI | 2665358 | | Active | | Christen | | Dementi | | | A | 6 | / | | /10 | J. | | a | | | WITHOUT | (SNOMED | | | | [place] | | | | | | CT) | | | | ta BATH MIXER | | | | | BEHAVIO | | | | | | | | | | RAL | | | | | | | | | | DISTURB | | | | | | | | | | ANCE | | | | | | | | | +---------+---------+---------+---------+---------+---------+---------+---------+---------+ | CHRONIC | 2071975 | | Active | | Christen | | Chronic | | | | 03 | /10 | | /10 | J. | | | | | PROGRES | (SNOMED | | | | [place] | | progres | | | SIVE | CT) | | | | ta BATH MIXER | | sive | | | RENAL | | | | | | | renal | | | FAILURE | | | | | | | failure | | +---------+---------+---------+---------+---------+---------+---------+---------+---------+ | ANEMIA | [id number] | | Active | | Christen | | Anemia | | | | 00 | / | | | J. | | | | | | (SNOMED | | | | [place] | | | | | | CT) | | | | ta BATH MIXER | | | | +---------+---------+---------+---------+---------+---------+---------+---------+---------+ | DEMENTI | 0928410 | | Active | | Christen | | Procedu | | | A | | | | | J. | | re | | | SCREENI | (SNOMED | | | | [place] | | carried | | | NG | CT) | | | | ta BATH MIXER | | out on | | | | | | | | | | | | | | | | | | | | subject | | +---------+---------+---------+---------+---------+---------+---------+---------+---------+ | FALL | 2121718 | | Active | | Christen | | At risk | | | RISK | 07 | /21 | | /22 | J. | | for | | | | (SNOMED | | | | [place] | | falls | | | | CT) | | | | ta BATH MIXER | | | | +---------+---------+---------+---------+---------+---------+---------+---------+---------+ | DIABETE | 4701185 | | Resolve | | Christen | | Diabeti | | | S | 532437 | /14 | d | /15 | J. | | c | | | MELLITU | (SNOMED | | | | [place] | | periphe | | | S, TYPE | CT) | | | | ta BATH MIXER | | ral | | | II [...] s | | +---------+---------+---------+---------+---------+---------+---------+---------+---------+ | CORNS | 0293831 | | Inactiv | | Kali | | Corns | | | AND | 00 | / | e | / | Palacio | | and | | | CALLOSI | (SNOMED | | | | DPM | | callus | | | TIES | CT) | | | | | | | | +---------+---------+---------+---------+---------+---------+---------+---------+---------+ | HAMMER | 6351442 | | Active | | Kali | [...] | | | +---------+---------+---------+---------+---------+---------+---------+---------+---------+ | HALLUX | 9797030 | | Active | | Kali | [...] ropathy | | +---------+---------+---------+---------+---------+---------+---------+---------+---------+ | DIABETE | 6098542 | | Active | | Kali | [...] s | | +---------+---------+---------+---------+---------+---------+---------+---------+---------+ | ONYCHOM | 0770451 | | Active | | Kali | | Onychom | | | YCOSIS | 08 | /01 | | /01 | Palacio | | ycosis | | | | (SNOMED | | | | DPM | | | | | | CT) | | | | | | | | +---------+---------+---------+---------+---------+---------+---------+---------+---------+ | HEARTBU | 8101866 | | Active | | Tiesha | | Heartbu | | | RN | 0 | / | | / | | | rn | | | | (SNOMED | | | | [place] | | | | | | CT) | | | | MD | | | | +---------+---------+---------+---------+---------+---------+---------+---------+---------+ | TYPE 2 | 7588860 | | Active | | Tiesha | [...] S | -CM) | | | | [place] | | s | | | MELLITU [...] athy | | +---------+---------+---------+---------+---------+---------+---------+---------+---------+ | UTI | 2879390 | | Active | | Pako | | Urinary | | | | 5 | /13 | | /13 | [place] | | tract | | | | (SNOMED | | | | auff | | infecti | | | | CT) | | | | BATH MIXER | | ous | | | | | | | | | | disease | | +---------+---------+---------+---------+---------+---------+---------+---------+---------+ | LOCALIZ | 6590293 | | Active | | [place] | [...] | | | +---------+---------+---------+---------+---------+---------+---------+---------+---------+ | LIPOMA | 9660633 | | Active | | Lauranc | | Lipoma | | | | 2 | /14 | | /14 | e W | | (clinic | | | | (SNOMED | | | | Lila | | al) | | | | CT) | | | | MD | | | | +---------+---------+---------+---------+---------+---------+---------+---------+---------+ | VITAMIN | 6118488 | | Active | | David W | | Vitamin | | | D | 6 | /14 | | /15 | Theen | | D | | | DEFICIE | (SNOMED | | | | MD FACE | | deficie | | | NCY | CT) | | | | FACP | | ncy | | +---------+---------+---------+---------+---------+---------+---------+---------+---------+ | OBESITY | 9952056 | | Active | | David W | | Obesity | | | , BMI | 01 | /14 | | /15 | Theen | | | | | 35-39.9 | (SNOMED | | | | MD FACE | | | | | , ADULT | CT) | | | | FACP | | | | +---------+---------+---------+---------+---------+---------+---------+---------+---------+ | DIABETE | 1471181 | | Removed | | David W | | Diabeti | | | S | 240368 | /14 | | /15 | Theen [...] s | | +---------+---------+---------+---------+---------+---------+---------+---------+---------+ | HALLUX | 2800535 | | Inactiv | | Kali | [...] | | | +---------+---------+---------+---------+---------+---------+---------+---------+---------+ | HAMMER | 8471001 | | Inactiv | | Kali | [...] | | | +---------+---------+---------+---------+---------+---------+---------+---------+---------+ | ONYCHOM | 9360129 | | Inactiv | | Kali | [...] ropathy | | +---------+---------+---------+---------+---------+---------+---------+---------+---------+ | DIABETE | 0011503 | | Inactiv | | Kali | [...] s | | +---------+---------+---------+---------+---------+---------+---------+---------+---------+ | SCREENI | 2680977 | | Resolve | | Lauranc | | Depress | | | NG FOR | 06 | /10 | d | /10 | e W | | ion | | | DEPRESS | (SNOMED | | | | Lila | | screeni | | | ION | CT) | | | | MD | | ng | | +---------+---------+---------+---------+---------+---------+---------+---------+---------+ | SCREENI | 7684656 | | Resolve | | Lauranc | [...] | | | +---------+---------+---------+---------+---------+---------+---------+---------+---------+ | SCREENI | 2066434 | | Resolve | | Lauranc | [...] ng | | +---------+---------+---------+---------+---------+---------+---------+---------+---------+ | SCREENI | 7517004 | | Removed | | Geetha | [...] ng | | +---------+---------+---------+---------+---------+---------+---------+---------+---------+ | SCREENI | 1827649 | | Removed | | Geetha | | Screeni | | | NG FOR | | / | | | [place] | | ng for | | | UNSPECI | (SNOMED | | | | [facility] | | disorde | | | FIED | CT) | | | | | | r | | | CONDITI | | | | | | | | | | ON | | | | | | | | | +---------+---------+---------+---------+---------+---------+---------+---------+---------+ | SCREENI | 4386305 | | Removed | | Geetha | | Depress | | | NG FOR | | | | /10 | [place] | | ion | | | DEPRESS | (SNOMED | | | | [facility] | | screeni | | | ION | CT) | | | | | | ng | | +---------+---------+---------+---------+---------+---------+---------+---------+---------+ | RENAL | 2179247 | | Active | | Lauranc | [...] e | | +---------+---------+---------+---------+---------+---------+---------+---------+---------+ | EDEMA | 9224697 | | Active | | Lauranc | | Edema | | | | 08 | /15 | | / | e W | | | | | | (SNOMED | | | | Lila | | | | | | CT) | | | | MD | | | | +---------+---------+---------+---------+---------+---------+---------+---------+---------+ | RENAL | 9520644 | | Active | | Luz | [...] e | | +---------+---------+---------+---------+---------+---------+---------+---------+---------+ | PERIPHE | 4620956 | | Active | | Lauranc | [...] disease | | +---------+---------+---------+---------+---------+---------+---------+---------+---------+ | CANDIDI | 8289062 | | Active | | Susanna | | Candidi | | | ASIS, | | / | | / | Medel | | asis of | | | SKIN | (SNOMED | | | | MD | | skin | | | | CT) | | | | | | | | +---------+---------+---------+---------+---------+---------+---------+---------+---------+ | DYSURIA | 1032877 | | Active | | Erica | | Dysuria | | | | 1 | /31 | | /31 | Paul | | | | | | (SNOMED | | | | MA | | | | | | CT) | | | | | | | | +---------+---------+---------+---------+---------+---------+---------+---------+---------+ | VAGINIT | 3565649 | | Active | | Erica | | Vaginit | | | IS | 1 | / | | /31 | Paul | | is | | | | (SNOMED | | | | MA | | | | | | CT) | | | | | | | | +---------+---------+---------+---------+---------+---------+---------+---------+---------+ | RLQ | 7005034 | | Resolve | | Lauranc | | Right | | | PAIN | 02 | | d | /11 | e W | | lower | | | | (SNOMED | | | | Lila | | quadran | | | | CT) | | | | MD | | t pain | | +---------+---------+---------+---------+---------+---------+---------+---------+---------+ | ABDOMIN | 9544987 | | Resolve | | Lauranc | [...] | | | +---------+---------+---------+---------+---------+---------+---------+---------+---------+ | KNEE | 8861942 | | Active | | Lauranc | | Knee | | | PAIN | 3 | /14 | | /14 | e W | | pain | | | | (SNOMED | | | | Lila | | | | | | CT) | | | | MD | | | | +---------+---------+---------+---------+---------+---------+---------+---------+---------+ | Questio | 0511412 | | Correct | | Lauranc | [...] | | | +---------+---------+---------+---------+---------+---------+---------+---------+---------+ | VERTEBR | 1954009 | | Active | | Lauranc | [...] e | | +---------+---------+---------+---------+---------+---------+---------+---------+---------+ | VERTIGO | 0275409 | | Active | | Luz | | Vertigo | | | | 01 | / | | /03 | Asad | | | | | | (SNOMED | | | | RN | | | | | | CT) | | | | | | | | +---------+---------+---------+---------+---------+---------+---------+---------+---------+ | CHEST | 5893826 | | Inactiv | | Genny | | Chest | | | PAIN | 9 | | e | /02 | Kaufman | | pain | | | | (SNOMED | | | | | | | | | | CT) | | | | | | | | +---------+---------+---------+---------+---------+---------+---------+---------+---------+ | CHEST | 9425150 | | Inactiv | | Lauranc | [...] fied | | +---------+---------+---------+---------+---------+---------+---------+---------+---------+ | CEREBRO | 6953350 | | Active | | Rogers | | 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 | (SNOMED | | | | MD | | r | | | DISEASE | CT) | | | | | | disease | | +---------+---------+---------+---------+---------+---------+---------+---------+---------+ | History | 8202744 | | Active | | Rogers | [...] | | | +---------+---------+---------+---------+---------+---------+---------+---------+---------+ | DIABETI | 3186636 | | Active | | Rogers | [...] thy | | +---------+---------+---------+---------+---------+---------+---------+---------+---------+ | HYPERLI | 4335295 | | Active | | Rogers | | Hyperli | | | PIDEMIA | 4 | 30 | | | Laith | | pidemia | | | | (SNOMED | | | | MD | | | | | | CT) | | | | | | | | +---------+---------+---------+---------+---------+---------+---------+---------+---------+ | History | 9587044 | | Active | | Rogers | [...] e | | +---------+---------+---------+---------+---------+---------+---------+---------+---------+ | CEREBRA | 3343002 | | Correct | | Rogers | [...] s | | +---------+---------+---------+---------+---------+---------+---------+---------+---------+ | ABDOMIN | 7404802 | | Removed | | Patricia | [...] | | | +---------+---------+---------+---------+---------+---------+---------+---------+---------+ | RLQ | 9210860 | | Removed | | Patricia | [...] fied | | +---------+---------+---------+---------+---------+---------+---------+---------+---------+ | CARPAL | 8556760 | | Active | | Rogers | | Carpal | | | TUNNEL | 9 | /25 | | /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 | | | | MD | | 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, LEFT | CT) | | | | | | e | | +---------+---------+---------+---------+---------+---------+---------+---------+---------+ | Questio | 5363162 | | Removed | | Rogers | [...] | | | +---------+---------+---------+---------+---------+---------+---------+---------+---------+ | GAIT | 0837415 | | Active | | Rogers | | Abnorma | | | IMBALAN | 2 | /25 | | / | Laith | | l gait | | | CE | (SNOMED | | | | MD | | | | | | CT) | | | | | | | | +---------+---------+---------+---------+---------+---------+---------+---------+---------+ | BRAIN | 1465727 | | Correct | | Rogers | [...] e | | +---------+---------+---------+---------+---------+---------+---------+---------+---------+ | PARESTH | 7717929 | | Active | | Rogers | | Paresth | | | ESIA, | 04 | | | / | Laith | | esia of | | | HANDS | (SNOMED | | | | MD | | hand | | | | CT) | | | | | | | | +---------+---------+---------+---------+---------+---------+---------+---------+---------+ | PERIPHE | 9181266 | | Correct | | Rogers | | Periphe | | | RAL | 06 | | ion | /25 | Laith | | ral | | | NEUROPA | (SNOMED | | | | MD | | nerve | | | THY | CT) | | | | | | disease | | +---------+---------+---------+---------+---------+---------+---------+---------+---------+ | THYROID | 9240050 | | Active | | Luz | | Thyroid | | | NODULE | 05 | /20 | | /20 | [place] | | nodule | | | | (SNOMED | | | | [facility] | | | | | | CT) | | | | | | | | +---------+---------+---------+---------+---------+---------+---------+---------+---------+ | TIA | 6840472 | | Active | | Lauranc | [...] a | | +---------+---------+---------+---------+---------+---------+---------+---------+---------+ | SYNCOPE | 6652035 | | Active | | Lauranc | | Syncope | | | | 07 | / | | /10 | e W | | | | | | (SNOMED | | | | Lila | | | | | | CT) | | | | MD | | | | +---------+---------+---------+---------+---------+---------+---------+---------+---------+ | GASTROP | 2016095 | | Active | | Lauranc | | 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 | | | | (SNOMED | | | | Lila | | syndrom | | | | CT) | | | | MD | | e | | +---------+---------+---------+---------+---------+---------+---------+---------+---------+ | CONSTIP | 6915949 | | Active | | Lauranc | | Chronic | | | ATION, | 09 | /08 | | /08 | e W | | | | | CHRONIC | (SNOMED | | | | Lila | | constip | | | | CT) | | | | MD | | ation | | +---------+---------+---------+---------+---------+---------+---------+---------+---------+ | POSTHER | 4665229 | | Active | | Lauranc | | Posther | | | 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 | (SNOMED | | | | Lila | | neuralg | | | IA | CT) | | | | MD | | ia | | +---------+---------+---------+---------+---------+---------+---------+---------+---------+ | DIZZINE | 3903237 | | Active | | Lauranc | | Dizzine | | | SS | 03 | /08 | | /08 | e W | | ss | | | | (SNOMED | | | | Lila | | | | | | CT) | | | | MD | | | | +---------+---------+---------+---------+---------+---------+---------+---------+---------+ | DEHYDRA | 0196703 | | Active | | Lauranc | | Dehydra | | | TION | 6 | /08 | | /08 | e W | | tion | | | | (SNOMED | | | | Lila | | | | | | CT) | | | | MD | | | | +---------+---------+---------+---------+---------+---------+---------+---------+---------+ | DIABETE | 0847211 | | Active | | Lauranc | [...] | | | +---------+---------+---------+---------+---------+---------+---------+---------+---------+ | HYPERTE | 6356925 | | Active | | Lauranc | [...] take 1-2 | | | DIMENHYDRI | 6123114778 | Christen Ramirez | | 50 MG TABS | tabs 4 | | | MARCELA | 1 | [place] | | | times per | | | | | BATH MIXER | | | day as | | | | | | | | needed | | | | | | + + + + + + + + | VICTOZA 18 | | | | LIRAGLUTID | 6351033189 | Jesus | | MG/3ML | | | | E | 2 | Ethan MD | | SOPN | | | | | | | + + + + + + + + | BASAGLAR | 1 pen | | | INSULIN | 9259210991 | Christen Ramirez | | KWIKPEN | every 3 | | | GLARGINE | 9 | [place] | | 100 | days 56 | | | | | BATH MIXER | | UNIT/ML | units q | [...] by mouth | | | MECLIZINE | 2099834896 | Bailey W | | HCL 25 [...] mix and | | | NA | 2638906303 | Maulik | | BOWEL PREP | [...] take 2 | | | GABAPENTIN | 1246431491 | Bailey W | | 300 MG [...] Inject 0.6 | | | LIRAGLUTID | 9118577628 | Christen Ramirez | | MG/3ML | mg daily | | | E | 2 | [place] | | SOPN | | | | | | BATH MIXER | + + + + + + + + | ONDANSETRO | 1 tab | | | ONDANSETRO | 1682663460 | Kali | | N HCL 4 MG | every 4 | | | N HCL | 3 | Palacio DPM | | TABS | hours | | | | | | + + + + + + + + | VICTOZA 18 | | | | LIRAGLUTID | 6952118232 | Bailey W | | MG/3ML | [...] 1 tab | | | GABAPENTIN | 6345090401 | Jesus | | 300 MG | po tid . | | | | 0 | Ethan MD | | CAPS | Pt states | | | | | | | | as needed | | | | | | + + + + + + + + | COLACE 100 | 1 tab by | | | DOCUSATE | 5393459197 | Kali | | MG CAPS | mouth | | | SODIUM | 0 | Palacio DPM | | | daily at | | | | | | | | bedtime | | | | | | + + + + + + + + | CLONAZEPAM | Take one | | | CLONAZEPAM | 9364079031 | Edna | | 0.5 MG | [...] take 1 | | | ASPIRIN | 1971558242 | Rogers | | 325 MG | [...] 1 tab | | | PREGABALIN | 2489701945 | Laurance W | | MG CAPS | three | | | | 3 | Lila MD | | | times per | | | | | | | | day | | | | | | + + + + + + + + | GLUCOPHAGE | 1 tab one | | | METFORMIN | 0314905829 | Laurance W | | XR 500 MG | time per | | | HCL | 0 | Lila MD | | [id number] | day | | | | | | + + + + + + + + | HUMALOG | BS <150 - | | | INSULIN | 9071742154 | Christen Ramirez | | 100 | No insulin | | | LISPRO | 1 | [place] | | UNIT/ML | BS | | | (HUMAN) | | BATH MIXER | | SOLN | 150-200 | | [...] 50 units | | | INSULIN | 0561439962 | Pako | | UNIT/ML | once per | | | GLAVERNA | 3 | Ramesh | | GEOVANI | mikaela. Pt | | | | | f BATH MIXER | | | states she | | | | | | | | is taking | | | | | | | | 56 units | | | | | | | | every AM | | | | | | + + + + + + + + | NITROFURAN | Take one | | | NITROFURAN | 5829004557 | Edna | | TOIN | capsule [...] | One | | | ERGOCALCIF | 9940977312 | Mariano | | QUANG 16860 | capsule by | | | QUANG [...] take 2 | | | GABAPENTIN | 0810813892 | Mariano | | 300 MG | [...] 10ml QAM | | | METFORMIN | 7585060534 | Mariano | | MG/5ML | Liquid due | | | HCL | 2 | Ariella | | SOLN | to | | | | | CCMA | | | Dysphagia | | | | | | + + + + + + + + | ASPIRIN EC | take 1 | | | ASPIRIN | 0840934919 | Rogers | | 325 MG | tablet | | | | 0 | Laith MD | | TBEC | daily | | | | | | + + + + + + + + | RELION | Use to | | | GLUCOSE | 2932919149 | Kali | | BLOOD | test BG | | | BLOOD | 4 | Palacio DPM | | GLUCOSE | one time | | | | | | | TEST STRP | per day | | | | | | + + + + + + + + | NITROFURAN | | | | NITROFURAN | 8128300874 | Edna | | TOIN | | [...] one tablet | | | DOCUSATE | 6709618831 | Bailey W | | MG CAPS | by mouth | | | SODIUM | 0 | Lila MD | | | at bedtime | | | | | | + + + + + + + + | BIOTIN 1 | Take one | | | BIOTIN | 3046294095 | Jesus | | MG CAPS | daily in | | | | 2 | Ethan MD | | | the AM | | | | | | + + + + + + + + | BACTRIM DS | 1 by mouth | | | TRIMETHOPR | 3074190012 | Bailey W | | 800-160 | twice a | | | IM-SULFAME | 1 | Lila MD | | MG TABS | day for 3 | | | THOXAZOLE | | | | | days | | | | | | + + + + + + + + | ASPIRIN 81 | one time | | | ASPIRIN | 9572583758 | Mariano | | MG TABS | per day | | | | 5 | Ariella | | | | | | | | CCMA | + + + + + + + + | GABAPENTIN | two times | | | GABAPENTIN | 2126591045 | Mariano | | 100 MG | per day | | | | 1 | Ariella | | CAPS | | | | | | CCMA | + + + + + + + + | BIOTIN 1 | | | | BIOTIN | 8033341007 | Kali | | MG CAPS | | | | | 2 | Palacio DPM | + + + + + + + + | PIOGLITAZO | Take 1 tab | | | PIOGLITAZO | 2203857260 | Jesus | | NE HCL 15 [...] two times | | | MECLIZINE | 4704284928 | Mariano | | HCL 25 MG [...] take 1 | | | ASPIRIN | 6306087097 | Mariano | | 325 MG | tablet | | | | 0 | Ariella | | TBEC | daily | | | | | CCMA | + + + + + + + + | PIOGLITAZO | Take 1 tab | | | PIOGLITAZO | 3477597096 | Christen Ramirez | | NE HCL 15 | by mouth | | | NE HCL | 0 | [place] | | MG TABS | one time | | | | | BATH MIXER | | | per day in | | | | | | | | the AM | | | | | | + + + + + + + + | NEURONTIN | take 1 tab | | | GABAPENTIN | 6118347721 | Franciscoance W | | 300 MG | po tid | | | | 0 | Lila MD | | CAPS | | | | | | | + + + + + + + + | DIOVAN 160 | one time | | | VALSARTAN | 5401266413 | Mariano | | MG TABS | per day | | | | 0 | Ariella | | | | | | | | CCMA | + + + + + + + + | ASPIRIN | take 1 | | | ASPIRIN | 9936057577 | Bailey W | | 325 MG [...] Take one | | | POTASSIUM | 7506301129 | Jesus | | CHLORIDE | cap daily | | | CHLORIDE | 5 | Ethan MD | | ER 10 MEQ | in the AM | | | | | | | CR-CAPS | | | | | | | + + + + + + + + | KEFLEX 500 | 1 pill | | | CEPHALEXIN | 0418976406 | Tiesha | | MG CAPS | twice a | | | | 0 | [place] MD | | | day for 7 | | | | | | | | days | | | | | | + + + + + + + + | GABAPENTIN | one tablet | | | GABAPENTIN | [id number] | Bailey W | | 100 MG [...] 1 tab | | | MECLIZINE | [id number] | Franciscoance W | | HCL 25 MG | three | | | HCL | 1 | Lila MD | | TABS | times per | | | | | | | | day | | | | | | + + + + + + + + | NITROFURAN | Take one | | | NITROFURAN | [id number] | Edna | | TOIN | capsule [...] 0.02 ml | | | EXENATIDE | [id number] | Bailey W | | MCG PEN 5 | injection | | | | 1 | Lila MD | | MCG/0.02ML | two times | | | | | | | SOPN | per day | | | | | | + + + + + + + + | FLUCONAZOL | take one | | | FLUCONAZOL | [id number] | Franciscoance W | | E 150 [...] tab two | | | CILOSTAZOL | [id number] | Kali | | 100 MG | times per | | | | 1 | Hakeem DPM | | TABS | day | | | | | | + + + + + + + + | RIOMET 500 | 10ml's two | | | METFORMIN | [id number] | Laurance W | | MG/5ML | [...] D | | | | CHOLECALCI | 6095936848 | Kali | | 1000 UNIT | | | | FEROL | 0 | Hakeem DICKEYM | | TABS | | | | | | | + + + + + + + + | NEURONTIN | take 1 tab | | | GABAPENTIN | 3294524297 | Christen Ramirez | | 300 MG | po tid . | | | | 0 | [place] | | CAPS | Pt states | | | | | BATH MIXER | | | as needed | | | | | | + + + + + + + + | PANTOPRAZO | Take one | | | PANTOPRAZO | [id number] | Edna | | LE SODIUM | tablet by | | | LE SODIUM | 0 | Hope CCMA | | 40 MG TBEC | mouth once | | | | | | | | daily | | | | | | + + + + + + + + | BYETTA 5 | Take as | | | EXENATIDE | 6997674666 | Christen Ramirez | | MCG PEN 5 | directed | | | | 1 | [place] | | MCG/0.02ML | once daily | | | | | BATH MIXER | | SOPN | in the AM [...] two times | | | METFORMIN | 0565490447 | Mariano | | HCL 1000 | per day | | | HCL | 1 | Ariella | | MG TABS | | | | | | CCMA | + + + + + + + + | GABAPENTIN | Take 2 | | | GABAPENTIN | 4538676864 | Bailey W | | 300 MG [...] TAKE ONE | | | PREGABALIN | 6977340104 | Kesha | | MG CAPS | [...] 1 TAB | | | BUSPIRONE | 9414967098 | Kali | | HCL 7.5 MG | three | | | HCL | 5 | Palacio DPM | | TABS | times per | | | | | | | | day | | | | | | + + + + + + + + | LANTUS 100 | 25 units | | | INSULIN | 7613861538 | Jesus | | UNIT/ML | two [...] two times | | | MECLIZINE | 3896895754 | Laurance W | | HCL 25 MG | per day | | | HCL | 2 | Lila MD | | TABS | | | | | | | + + + + + + + + | MECLIZINE | One tab by | | | MECLIZINE | 9970358305 | Laurance W | | HCL 25 [...] Take one | | | PROMETHAZI | 8270884615 | Edna | | NE HCL 25 [...] Take one | | | CHOLECALCI | 0259257650 | Jesus | | 1000 UNIT | tablet | | | FEROL | 0 | Ethan MD | | TABS | daily in | | | | | | | | the AM | | | | | | + + + + + + + + | POTASSIUM | | | | POTASSIUM | 7150827487 | Kali | | CHLORIDE | | | | CHLORIDE | 5 | Palacio DPM | | ER 10 MEQ | | | | | | | | CR-CAPS | | | | | | | + + + + + + + + | DULOXETINE | 1 tab one | | | DULOXETINE | 6268357164 | Franciscoance W | | HCL 30 MG | time per | | | HCL | 6 | Lila MD | | CPEP | day | | | | | | + + + + + + + + | PROCHLORPE | Insert one | | | PROCHLORPE | 7222251860 | Edna | | RAZINE 25 | [...] every | | | FOR | | BATH MIXER | | BASAGLAR | morning | | | BASAGLAR | | | | KWIKPEN | with | | | KWIKPEN | | | | | Basaglar | | | | | | | | Kwikpen | | | | | | + + + + + + + + | BASAGLAR | 56 Units | | | INSULIN | 0187157614 | Christen Ramirez | | KWIKPEN | every | | | GLARGINE | 9 | [place] | | 100 | morning | | | | | BATH MIXER | | UNIT/ML | | | | | | | | SOPN | | | | | | | + + + + + + + + | NOVOLOG | 3U before | | | INSULIN | 6632486955 | Christen Ramirez | | 100 | lunch and | | | ASPART | 1 | [place] | | UNIT/ML | 5U before | | | | | BATH MIXER | | SOLN | Dinner | | [...] tab by | | | CLOPIDOGRE | 1005108890 | Christen J. | | MG TABS | mouth one | | | L | 0 | [place] | | | time per | | | BISULFATE | | BATH MIXER | | | day in the | | | | | | | | evening | | | | | | + + + + + + + + | VICTOZA 18 | .6 mg x 1 | | | LIRAGLUTID | 0755989280 | Christen J. | | MG/3ML | week then | | | E | 2 | [place] | | SOPN | 1.2 mg | | | | | BATH MIXER | | | daily per | | | | | | | | week | | | | | | + + + + + + + + | LYRICA 100 | 1 tab | | | PREGABALIN | 3351325168 | Christen J. | | MG CAPS | three | | | | 1 | [place] | | | times per | | | | | BATH MIXER | | | day. Pt | | | | | | | | states as | | | | | | | | needed | | | | | | + + + + + + + + | OMEPRAZOLE | Take one | | | OMEPRAZOLE | 1311506011 | Christen Ramirez | | 40 MG | by mouth | | | | 5 | [place] | | CPDR | one time | | | | | BATH MIXER | | | per day | | [...] Take 1 | | | GLIPIZIDE | 9817363519 | Christen Ramirez | | XL 2.5 MG | tablet | | | | 1 | [place] | | [id number] | p.o. | | | | | BATH MIXER | | | q.a.m. | | | | | | + + + + + + + + | BD INSULIN | Use 5 | | | INSULIN | 9688146622 | Christen Ramirez | | SYRINGE | times | | | SYRINGE-NE | 1 | [place] | | ULTRAFINE | daily to | | | EDLE U-100 | | BATH MIXER | | 29G X 1/2" | inject [...] 3U before | | | INSULIN | 0794036096 | Christen Ramirez | | 100 | lunch and | | | LISPRO | 0 | [place] | | UNIT/ML | 5U before | | | | | BATH MIXER | | SOLN | Dinner | | [...] Inject 0.6 | | | LIRAGLUTID | 4509075781 | Christen Ramirez | | MG/3ML | mg daily | | | E | 2 | [place] | | SOPN | | | | | | BATH MIXER | + + + + + + + + | LIPITOR 20 | take 1 | | | ATORVASTAT | 4399482392 | Christen Ramirez | | MG TABS | tablet by | | | IN CALCIUM | 0 | [place] | | | mouth | | | | | BATH MIXER | | | daily in | | | | | | | | the | | | | | | | | evening | | | | | | + + + + + + + + | BASAGLAR | 56 Units | | | INSULIN | 5801908669 | Christen Ramirez | | KWIKPEN | by mouth | | | GLARGINE | 9 | [place] | | 100 | every | | | | | BATH MIXER | | UNIT/ML | morning | | | | | | | SOPN | | | | | | | + + + + + + + + | VICTOZA 18 | 5 unit AM | | | LIRAGLUTID | 2533258043 | Christen Ramirez | | MG/3ML | and 5 | | | E | 2 | [place] | | SOPN | units PM | | | | | BATH MIXER | + + + + + + + + | BASAGLAR | 1 pen | | | INSULIN | 8628144882 | Christen Ramirez | | KWIKPEN | every 3 | | | GLARGINE | 9 | [place] | | 100 | days 56 | | | | | BATH MIXER | | UNIT/ML | units q | | | | | | | SOPN | Day | | | | | | + + + + + + + + | MECLIZINE | One tab by | | | MECLIZINE | 7723528517 | Christen Ramirez | | HCL 25 MG | mouth | | | HCL | 0 | [place] | | TABS | three | | | | | BATH MIXER | | | times per | | | | | | | | day | | | | | | + + + + + + + + | BYETTA 5 | Take as | | | EXENATIDE | 6487955942 | Christen Ramierz | | MCG PEN 5 | directed | | | | 1 | [place] | | MCG/0.02ML | once daily | | | | | BATH MIXER | | SOPN | in the AM | | | | | | + + + + + + + + | LANTUS 100 | 56 units | | | INSULIN | 8924654906 | Kaykay | | UNIT/ML | qAM | | | GLARGINE | 3 | Mora DO | | SOLN | | | | | | | + + + + + + + + | VALSARTAN | Take one | | | VALSARTAN | 2365521373 | Christen Ramirez | | 160 MG | tablet | | | | 2 | [place] | | TABS | daily in | | | | | BATH MIXER | | | the AM | | | | | | + + + + + + + + | SUPREP | mix and | | | NA | 0740330046 | Emeka | | BOWEL PREP | [...] pill BID | | | DOCUSATE | [id number] | Christen Ramirez | | MG CAPS | | | | SODIUM | 0 | [place] | | | | | | | | BATH MIXER | + + + + + + + + | RELION | Use daily | | | GLUCOSE | 4146468256 | Tiesha | | BLOOD | to check | | | BLOOD | 4 | Maria Isabel MD | | GLUCOSE | blood | | | | | | | TEST STRP | sugar | | | | | | + + + + + + + + | HUMALOG | BS <150 - | | | INSULIN | 6473431173 | Tiesha | | 100 | No [...] Use daily | | | INSULIN | 2552406577 | Tiesha | | NEEDLE | to [...] tab by | | | FUROSEMIDE | 5578924286 | Tiesha | | MG TABS | mouth one | | | | 5 | Maria Isabel MD | | | time per | [...] per | | | FOOT CARE | 6847094283 | Tiesha | | INSOLES | custom | | | PRODUCTS | 2 | [place] MD | | MISC | fit from [...] 1 pill | | | CEPHALEXIN | 8306719446 | Pako | | MG CAPS | twice a | | | | 0 | Middle[place]auf | | | day for 7 | | | | | f BATH MIXER | | | days | | | | | | + + + + + + + + | BYETTA 5 | 0.02 ml | | | EXENATIDE | 0198460713 | Bailey W | | MCG PEN 5 | injection | | | | 1 | Lila MD | | MCG/0.02ML | two times | | | | | | | SOPN | per day | | | | | | + + + + + + + + | LYRICA 100 | 1 tab | | | PREGABALIN | 5956700016 | Bailey W | | MG CAPS | three | | | | 8 | Lila MD | | | times per | | | | | | | | day | | | | | | + + + + + + + + | DRAMAMINE | take 1-2 | | | DIMENHYDRI | 3082271740 | Bailey W | | 50 MG [...] Use 5 | | | INSULIN | 1065736161 | Bailey W | | SYRINGE | [...] tab by | | | CLOPIDOGRE | 2305482557 | Laurance W | | MG TABS | mouth one | | | L | 4 | Lila MD | | | time per | | | BISULFATE | | | | | day | | | | | | + + + + + + + + | LANTUS 100 | 25 units | | | INSULIN | 4814622649 | Laurance W | | UNIT/ML | two times | | | GLARGINE | 3 | Lila MD | | SOLN | per day | | | | | | + + + + + + + + | LASIX 80 | 1 tab by | | | FUROSEMIDE | 5141063446 | Laurance W | | MG TABS | mouth one | | | | 5 | Lila MD | | | time per | | | | | | | | day | | | | | | + + + + + + + + | FUROSEMIDE | 1 tab one | | | FUROSEMIDE | 5446806458 | Laurance W | | 40 MG | time per | | | | 0 | Lila MD | | TABS | day | | | | | | + + + + + + + + | BUSPIRONE | 1 TAB | | | BUSPIRONE | 7898994669 | Laurance W | | HCL 7.5 MG | three | | | HCL | 5 | Lila MD | | TABS | times per | | | | | | | | day | | | | | | + + + + + + + + | COLACE 100 | 1 tab by | | | DOCUSATE | 1637632325 | Laurance W | | MG CAPS | mouth | | | SODIUM | 0 | Lila MD | | | daily at | | | | | | | | bedtime | | | | | | + + + + + + + + | BACTRIM DS | 1 by mouth | | | TRIMETHOPR | 3477287184 | Laurance W | | 800-160 | twice a | | | IM-SULFAME | 1 | Lila MD | | MG TABS | day for 3 | | | THOXAZOLE | | | | | days | | | | | | + + + + + + + + | LYRICA 50 | Take 1 tab | | | PREGABALIN | 5953708415 | Laurance W | | MG CAPS [...] tab one | | | METFORMIN | 8903401484 | Laurance W | | XR 500 MG | time per | | | HCL | 0 | Lila MD | | [id number]-LBC | day | | | | | | + + + + + + + + | CILOSTAZOL | 1 tab two | | | CILOSTAZOL | 4022594734 | Laurance W | | 100 MG | times per | | | | 1 | Lila MD | | TABS | day | | | | | | + + + + + + + + | NYSTATIN-T | Apply thin | | | NYSTATIN-T | 8878609926 | Laurance W | | RIAMCINOLO | layer to | | | RIAMCINOLO | 0 | Lila MD | | NE | affected | | | NE | | | | [phone] | area BID | | | | | | | UNIT/GM-% | prn for | | | | | | | CREA | itching | | | | | | + + + + + + + + | PIOGLITAZO | Take 1 tab | | | PIOGLITAZO | 0155017990 | Laurance W | | NE HCL 15 | by mouth | | | NE HCL | 0 | Lila MD | | MG TABS | one time | | | | | | | | per day | | | | | | + + + + + + + + | ONDANSETRO | 1 tab | | | ONDANSETRO | 1457887386 | Laurance W | | N HCL 4 MG | every 4 | | | N HCL | 3 | Lila MD | | TABS | hours | | | | | | + + + + + + + + | LANTUS 100 | 56 units | | | INSULIN | 3541221608 | Laurance W | | UNIT/ML | in the | | | GLARGINE | 3 | Lila MD | | SOLN | morning | | | | | | + + + + + + + + | OMEPRAZOLE | Take one | | | OMEPRAZOLE | 0083342095 | Laurance W | | 40 MG [...] take 1 | | | ATORVASTAT | 5750097287 | Bailey W | | MG TABS | tablet by | | | IN CALCIUM | 0 | Lila MD | | | mouth | | | | | | | | daily | | | | | | + + + + + + + + | MECLIZINE | 1 tab | | | MECLIZINE | 5646070423 | Bailey W | | HCL 25 MG | three | | | HCL | 1 | Lila MD | | TABS | times per | | | | | | | | day | | | | | | + + + + + + + + | RELION | Use to | | | GLUCOSE | 3874374047 | Bailey W | | BLOOD | test BG | | | BLOOD | 4 | Lila MD | | GLUCOSE | one time | | | | | | | TEST STRP | per day | | | | | | + + + + + + + + | GABAPENTIN | Take 2 | | | GABAPENTIN | 3887506070 | Bailey W | | 300 MG [...] TAB one | | | VALSARTAN | 6548898247 | Bailey W | | 160 MG | time per | | | | 2 | Lila MD | | TABS | day | | | | | | + + + + + + + + | LYRICA 50 | TAKE ONE | | | PREGABALIN | 2660021435 | Bailey W | | MG CAPS [...] 0.2 ml | | | EXENATIDE | 5602428857 | Laurance W | | MCG PEN 5 | injection | | | | 1 | Lila MD | | MCG/0.02ML | two times | | | | | | | SOPN | per day | | | | | | + + + + + + + + | VICTOZA 18 | 1.2 mg | | | LIRAGLUTID | 9392242588 | Laurance W | | MG/3ML | injected | | | E | 3 | Lila MD | | SOPN | martin | | | | | | + + + + + + + + | KEFLEX 500 | one po TID | | | CEPHALEXIN | 5678527899 | Susanna | | MG CAPS | | | | | 0 | Gianfranco MD | + + + + + + + + | FLUCONAZOL | take one | | | FLUCONAZOL | 7535044234 | Susanna | | E 150 MG | tablet PO | | | E | 0 | Gianfranco MD | | TABS | x 1 repeat | | | | | | | | in 3 days | | | | | | + + + + + + + + | LYRICA 50 | 1 tab | | | PREGABALIN | 2098037208 | Laurance W | | MG CAPS | three | | | | 3 | Lila MD | | | times per | | | | | | | | day | | | | | | + + + + + + + + | GABAPENTIN | Take 2 | | | GABAPENTIN | 8240401042 | Laurance W | | 300 MG [...] tab one | | | DULOXETINE | 1024122996 | Laurance W | | HCL 30 MG | time per | | | HCL | 6 | Lila MD | | CPEP | day | | | | | | + + + + + + + + | RIOMET 500 | 10ml's two | | | METFORMIN | 2509357996 | Laurance W | | MG/5ML | [...] TAB one | | | VALSARTAN | 4560013070 | Laurance W | | MG TABS | time per | | | | 0 | Lila MD | | | day | | | | | | + + + + + + + + | MECLIZINE | One tab by | | | MECLIZINE | 5405138789 | Bailey W | | HCL 25 [...] take 2 | | | GABAPENTIN | 1527699884 | Bailey W | | 300 MG [...] tab one | | | VALSARTAN | 7828577141 | Bailey W | | MG TABS | time per | | | | 4 | Lila MD | | | day | | | | | | + + + + + + + + | VICTOZA 18 | 0.6 mg | | | LIRAGLUTID | 6404232737 | Laurance W | | MG/3ML | [...] tab one | | | SITAGLIPTI | 7261051176 | Laurance W | | 100 MG | time per | | | N | 8 | Lila MD | | TABS | day | | | PHOSPHATE | | | + + + + + + + + | GABAPENTIN | 2 tabs two | | | GABAPENTIN | 7311653400 | Laurance W | | 300 MG | times per | | | | 0 | Lila MD | | CAPS | day | | | | | | + + + + + + + + | DIOVAN 160 | 1 by mouth | | | VALSARTAN | 7533923238 | Franciscoance W | | MG TABS | every day | | | | 0 | Lila MD | + + + + + + + + | GABAPENTIN | 1 tab at | | | GABAPENTIN | 8205285762 | Laurance W | | 100 MG [...] 28 units | | | INSULIN | 5874483187 | Laurance W | | UNIT/ML | two times | | | GLARGINE | 0 | Lila MD | | SOLN | per day | | | | | | + + + + + + + + | LISINOPRIL | take 1 | | | LISINOPRIL | 8399330655 | Rogers | | 20 MG | tablet by | | | | 1 | Laith LUIS | | TABS | mouth | | | | | | | | daily | | | | | | + + + + + + + + | LANTUS 100 | 56 units | | | INSULIN | 1251322108 | Bailey W | | UNIT/ML | daily | | | GLARGINE | 0 | Lila MD | | SOLN | | | | | | | + + + + + + + + | GABAPENTIN | 1 by mouth | | | GABAPENTIN | 6286090146 | Laurance W | | 100 MG [...] | One | | | ERGOCALCIF | 2349708089 | Laurance W | | QUANG 97923 | capsule by | | | QUANG [...] by mouth | | | LISINOPRIL | 5006031142 | Laurance W | | 5 MG TABS | one time | | | | 0 | Lila MD | | | per day | | | | | | + + + + + + + + | RIOMET 500 | 10ml QAM | | | METFORMIN | 4884768280 | Laurance W | | MG/5ML | Liquid due | | | HCL | 2 | Lila MD | | SOLN | to | | | | | | | | Dysphagia | | | | | | + + + + + + + + | COLACE 100 | one tablet | | | DOCUSATE | 1098397169 | Laurance W | | MG CAPS | by mouth | | | SODIUM | 0 | Lila MD | | | at bedtime | | | | | | + + + + + + + + | MECLIZINE | 1 by mouth | | | MECLIZINE | 2668038127 | Laurance W | | HCL 25 [...] one tablet | | | METFORMIN | 8630550560 | Laurance W | | HCL 1000 | by mouth | | | HCL | 0 | Lila MD | | MG TABS | twice a | | | | | | | | day | | | | | | + + + + + + + + | ASPIRIN 81 | 1 by mouth | | | ASPIRIN | 5140242177 | Bailey W | | MG TABS | every day | | | | 5 | Lila MD | + + + + + + + + | GABAPENTIN | one tablet | | | GABAPENTIN | 6497474089 | Bailey W | | 100 MG [...] | | | | | | | BATH MIXER | + + + + + + [...] | +------+------+-------+------+-------+------+ + + + | Rx Emmanuelill: Taryn Request for MIRZA POMPA [id number] MIS | + + + +--------+ +---+---+---+ + | | ESM_RR | [id number] | | | B | e-scripts | | | | 0`RELION | | | | messenger | | | | PEN | | | | refill | | | | [id number] | | | | request | | [...] | | | | | | | [place]*` | | | | | | | | [id number] | | | | | | | | `[id number] | | | | | | | | 34`605136` | | | | | | | | RELION PEN | | | | | | | | [id number] | | | | | | | [...] +---+---+---+ + + + | Office Visit: F/U- [...] +--------+ +---+---+---+ + | | ESM_RR | [id number] | | | B | e-scripts | [...] | | | | | | | [place]*` | | | | | | | | 3608497301 | | | | | | | | `[id number] | | | | | | | [...] +--------+ +---+---+---+ + | | ESM_RR | [id number] | | | B | e-scripts | | | | 6`DADA | | | | messenger | | | | MARY | | | | refill | | [...] | | | | | | | [id number] | | | | | | | | `[id number] | | | | | | | | 59`342386` | | | | | | | [...] + + + | Phone Note: Kiki craig | + + + +--------+------+---+---+---+ + | [...] +--------+ +---+---+---+ + | | ESM_RR | [id number] | | | B | e-scripts | [...] | | | | | | | [id number] | | | | | | | | `[id number] | | | | | | | [...] +--------+ +---+---+---+ + | | ESM_RR | [id number] | | | B | e-scripts | [...] | | | | | | | [place]*` | | | | | | | | 5429706296 | | | | | | | | `[id number] | | | | | | | [...] +--------+ +---+---+---+ + | | ESM_RR | [id number] | | | B | e-scripts | [...] | | | | | | | `0`07/09/2 | | | | | | | | 017`07/09/ | | | | | | | | 2017`Walma | | | | | | | | rt - | | | | | | | | [place]*` | | | | | | | | 9311301140 | | | | | | | | `[id number] | | | | | | | [...] +--------+ +---+---+---+ + | | ESM_RR | [id number] | | | B | e-scripts | [...] | | | | | | | `0`04/30/2 | | | | | | | | 016`05/10/ | | | | | | | | 2016`Madisyn | | | | | | | | rt - | | | | | | | | [place]*` | | | | | | | | [id number] | | | | | | | | `[id number] | | | | | | | [...] | Rx Refill: eRx Request for INSULIN [id number] MIS | + + + +--------+ +---+---+---+ + | | ESM_RR | [id number] | | | B | e-scripts | | | | 7`INSULIN | | | | messenger | | | | [id number]/29 | | | | refill | | [...] | | | | | | | 16`05/08/ | | | | | | | | 016`Tyler | | | | | | | | t - | | | | | | | | [place]*` | | | | | | | | [id number] | | | | | | | | `[id number] | | | | | | | | 01`61323`I | | | | | | | | NSULIN | | | | | | | | [id number]/29 | | | | | | | [...] +--------+ +---+---+---+ + | | ESM_RR | [id number] | | | B | e-scripts | [...] | | | | | | | [place]*` | | | | | | | | 4148379616 | | | | | | | | `[id number] | | | | | | | | 568`19672` | | | | | | | [...] +--------+ +---+---+---+ + | | ESM_RR | [id number] | | | B | e-scripts | [...] | | | | | | | 7054911361 | | | | | | | | `[id number] | | | | | | | [...] | | | Dietary | | | DIGITAL MANAGER | | | | | management | [...] | use CPHS | + +---------+--------+---+---+---+ + + + | Office Visit: Office Visit | + + + +--------+------+---+---+---+ + | [...] | + +--------+------+---+---+---+ + + + | Lab Report: Glyco Hemoglobin, A1C | + + + +--------+-----+---+---------+---+ + | | HGBA1C | 7.9 | % | 4.6-6.2 | H | Hemoglobin | | | | | | | | | | | | | | | | A1c/Hemogl | | | | | | | | obin.total | | | | | | | | in Blood | + +--------+-----+---+---------+---+ + + + | Lab Report: Coronary Risk Panel | + + + + +---------+-------+--------+---+ + | | C-LDL/C-HD | 1.3 | | | N | LDL/HDL | | | L | | | | | ratio, | | | | | | | | serum | + + +---------+-------+--------+---+ + | | CHOL/HDL | 3.2 | | | N | cholestero | | | | | | | | l/HDL | | | | | | | | ratio, | | | | | | | | serum | + + +---------+-------+--------+---+ + | | VLDL | 47 | mg/dL | 6-32 | H | very low | | | | | | | | density | | | | | | | | lipoprotei | | | | | | | | ns | + + +---------+-------+--------+---+ + | | LDL | 62 | [...] | | | Plasma | + + +---------+-------+--------+---+ + | | HDL | 49 | [...] | | | Plasma | + + +---------+-------+--------+---+ + | | TRIGLYCERI | 238 | [...] | | | Plasma | + + +---------+-------+--------+---+ + | | CHOLESTERO | 159 | [...] | | | Plasma | + + +---------+-------+--------+---+ + | | ZZ-GE-UNK | Unknown | [...] | | | specified | + + +---------+-------+--------+---+ + + + | Office Visit: Est care/DM shoes | + + + +--------+--------+---+---+---+ + | [...] 03:30 PM | David Cornejo MD [facility], | | | | [address], [place], [address], | | | | | + + + + | Appointment | 09:50 AM | Matt Saucedo MD, [address], | | | | [place], [address], | | | | | + + + + | Appointment | 09:30 AM | Matt Saucedo MD, [address], | | | | [place], [address], | | | | | + + + + | Referral | | Physical Therapy Evaluation | | | | [facility], [address], [place], [address] | | | | | | | | | + + + + | Referral | | Physical Therapy Evaluation | | | | [facility], [address] | | | | [address], [place], [address] | | | | | | | | | + + + + | Referral | | GI Consult | | | | Emeka Clark MD, [address] | | [address], | | | | [place], [address] | | | | | + + + + | Referral | | GI Consult | | | | Emeka Clark MD, [address] | | | | [address], | | | | [place], [address] | | | | | + + + + | Referral | | Nephrology Evaluation | | | | Anisa Reeves, | | | | [address] [facility] [address] | | | | [address], [place], [address] | | | | | | | | | + + + + | Referral | | Nephrology Evaluation | | | | Larry Galo, | | | | [address], | | | | [address], [place], [address] | | | | | | | | | + + + + | Referral | | Surgical Consult | | | | Jesus Long, [address] | | | | [address], | | | | [place], [address] | | | | | + + + + | Referral | | Surgical Consult | | | | Jesus Long, [address] | | | | [address], | | | | [place], [address] | | | | | + + + + | Referral | | Endocrinology Consult | + + + + | Referral | | Podiatry Consult | | | | Kali Palacio, [address] | | | | [place], | | | | [place], [address] | | | | | + + + + | Referral | | Nephrology Evaluation | | | | Larry Galo, | | | | [address], | | | | [address], [place], [place], [address] | | | | | | | | | + + + + | Referral | | Podiatry Consult | | | | Kali Palacio, [address] | | | | [place], | | | | [place], [address] | | | | | + + + + | Referral | | Nephrology Evaluation | | | | Larry Galo, | | | | [address], | | | | [address], [place], [place], [address] | | | | | | | | | + + + + | Referral | | Neurology Consult | | | | FolkstrYADIRA Gen Phone #, | | | | [phone] [facility] | | | | Rd, [place], [address] | | | | | + + + + | Referral | | Neurology Consult | | | | RAUL Gen Phone #, | | | | [phone] [facility] | | | | Rd, [place], [address] | | | | | + + + + | Referral | | MRA Head-WO Con | | | | Dian Atkins, [address] | | | | [facility], | | | | [place], [address] | | | | | + + + + | Referral | | MRA Head-WO Con | | | | Dian Atkins, [address] | | | | [facility], | | | | [place], [address] | | | | | + + + + | Referral | | MRA Head-WWO Con | | | | Dian Scheduling, [address] | | | | [address], | | | | [place], [address] | | | | | + + + + | Referral | | MRA Head-WWO Con | | | | Dian Atkins, [address] | | | | [address], | | | | [place], [address] | | | | | + + + + +---+ + | | Referral excluded from report: | +---+ + + + + + | Referral | | Physical Therapy Evaluation | | | | [facility], [address] | | | | [address] | | | | [place], [address] | | | | | | | | | + + + + | Referral | | Neurology Consult | | | | MD August Bourne, [address] | | | | [address] [place], | | | | [place], [address] | | | | | + + + + | Referral | | Neurology Consult | | | | Rogers Ozuna, [address] | | | | [address], [place], | | | | [place], [address] | | | | | + + + + | Referral | | Cardiology Consult | | | | MD Pelon Fay, | | | | [address] | | | | [address], [place], [address] | | | | | | | | | + + + + | Referral | | GI Consult | | | | [address] | | | | [address], [place], [address] | | | | | | | | | + + + + | Referral | | Physical Therapy Evaluation | | | | [facility], [address] | | | | [address] | | | | [address], [place], [place], [address] | | | | | | | | | + + + + | Referral | | Diabetic Education - | | | | Individual | | | | [facility], | | | | [address], | | | | [place], [address] | | | | | + + + + | Referral | | GI Consult | | | | [address] | | | | [address], [place], [address] | | | | | | | | | + + + + | Referral | | US Soft Tissue Head/Neck | | | | Exam Dian | | | | Scheduling, [address] | | | | [address], [place], [place], | | | | [address] | | | | | + + + + | Referral | | Neurology Consult | | | | [place] [facility] | | | | [facility], [address], | | | | [place], [address] | | | | | + + + + | Referral | | VL Carotid-Cerebral Duplex | | | | Dian | | | | [address] | | | | [place], [place], | | | | [address] | | | | | + + + + | Referral | | Holter Monitor | | | | Dian Atkins, [address] | | | | [address], | | | | [place], [address] | | | | | + + [...] Microalb/Creat Ratio UR, | | | | Campbell | + + + + | Pending [...] | + + + + + | CPT-87875 | Glucose by monitor | | | + + + + + | CPT-78018 | UA Dipstick | | | + + + + + | CPT-08480 | UA Dipstick | | | + + + + + | CPT-54964 | Initial Psych | | | | | Evaluation | | | + + + + + | CPT-21162 | Debride Nail, 6 or | | | | | more 54338 | | | + + + + [...] | + + + + + | CPT-89067 | Trim Skin Lesions | | | | | 07860 | | | + + + + + | CPT-63771 | UA Dipstick | | | + + + + + | CPT-13149 | [facility] | [facility] [address] | | | + + + + [...] | + + + + + | CPT-18728 | [facility], 6 or | | | | | more [address]8622 | | | + + + + [...] | + + + + + | CPT-04398 | MRA Head-WWO Con | | | + + + + + +---+ + | | Order excluded from report: | +---+ + + + + + + | CPT-02022 | Physical Therapy | | | | | Evaluation | | | + + + + + | [id number] | [facility] Generic Patient | | | | | Encounter Service | | | | | (from patch) | | | + + + + + | [id number] | [Recorded for [facility]] | | | | | Documentation of | | | | | current medications | | | | | (procedure) | | | + + + + + | [id number] | [Recorded for [facility]] | | | | | Documentation of | | | | | current medications | | | | | (procedure) | | | + + + + + | [id number] | [Recorded for [facility]] | | | | | Documentation of | | | | | current medications | | | | | (procedure) | | | + + + + + | [id number] | [Recorded for [facility]] | | | | | Documentation of | | | | | current medications | | | | | (procedure) | | | + + + + + | FREE T4 67251 | T4 Free | | | + + + + + | T3 FREE 16867 | T3 Free | | | + + + + + | TSH 52675 | TSH | | | + + + + + | GLYCO HGB 04621 | HgbA1C | | | + + + + + | [id number] | [facility] Generic Patient | | | | | Encounter Service | | | | | (from patch) | | | + + + + + | [id number] | [Recorded for [facility]] | | | | | Documentation of | | | | | current medications | | | | | (procedure) | | | + + + + + | [id number] | [facility] Generic Patient | | | | | Encounter Service | | | | | (from patch) | | | + + + + + | CPT-54390 | EKG- tracing with | | | | | report (23828) | | | + + + + + | [id number] | [Recorded for [facility]] | | | | | Documentation of | | | | | current medications | | | | | (procedure) | | | + + + + + | [id number] | [facility] Generic Patient | | | | | Encounter Service | | | | | (from patch) | | | + + + + + | CPT-Troponin l | Troponin I | | | | 22459 | | | | + + + + + | [id number] | [Recorded for [facility]] | | | | | Documentation of | | | | | current medications | | | | | (procedure) | | | + + + + + | CPT-39712 | Physical Therapy | | | | | Evaluation | | | + + + + + | CPT-G8427 | Current Medications | | | | | Documented | | | + + + + + | [id number] | [Recorded for [facility]] | | | | | Documentation of | | | | | current medications | | | | | (procedure) | | | + + + + + | CPT-G8427 | Current Medications | | | | | Documented | | | + + + + + | [id number] | [Recorded for [facility]] | | | [...] + + + + | CHEM PROF 47390 | CMP (Comprehensive | | | | | Metabolic Panel) | | | + + + + + | GLYCO HGB 40698 | HgbA1C | | | + + + + + | CPT-Q2037 | Fluvirin | | | | | (Influenza) | | | | | Med/Atrio | | | + + + + + | RISK 34483 | Lipid Profile | | | + + + + + | VIT D HYDR 54989 | Vit D, 25 hydroxy | | | + + + + + | CYC CITRU 08611 | Cyclic | | | | | Citrullinated Pept | | | | | IgG | | | + + + + + | RA QUANT 94740 | Rheumatoid Factor | | | | | (quant) | | | + + + + + | TSH 50815 | TSH | | | + + + + + | IVANA 30806 | IVANA | | | + + + + + | GLYCO HGB 51573 | HgbA1C | | | + + + + + | CPT-43917 | EKG- tracing with | | | | | report (30666) | | | + + + + + | CPT-50124 | ANDRE | | | + + + + + | 60769 37920 | Holter Monitor 48H | | | | | Panel | | | + + + + + | 70008 09542 | Holter Monitor 72H | | | | | Panel | | | + + + + + | CPT-88847 | Barium Swallow MBS | | | | | with Speech | | | + + + + + | 24809 60684 | US Abdomen-Cmplt | | | | | and Pelvic-Lmtd | | | + + + + + | CPT-25374 | US Soft Tissue | | | | | Head/Neck Exam | | | + + + + + | CPT-71260 | Motor nerve testing | | | | | - each nerve | | | + + + + + | RISK 93116 | Lipid Profile | | | + + + + + | ESR 19073 | Sedimentation Rate | | | | | (ESR) | | | + + + + + | SPEP IF 32745 | SPEP with JESÚS if | | | | | indicated | | | + + + + + | B12+FOLATE MULTIPLE | B-12 - Folate | | | + + + + + | PFA 67699 | Platelet Function | | | | | Assay | | | + + + + + | 58278 | MRA Head-WO Con | | | + + + + + | 05515 | MR Head-WO Con | | | + + + + + | CPT-47451 | VL Carotid-Cerebral | | | | | Duplex | | | + + + + + | CPT-21629 | Holter Monitor | | | + + + + + | D DIMER 89445 | D-dimer (tyrese) | | | + + + + + | 62741 | CT Head-WWO Con | | | + + + + + | VIT D HYDR 91329 | Vit D, 25 hydroxy | | | + + + + + | TSH 82468 | TSH | | | + + + + + | B12+FOLATE MULTIPLE | B-12 - Folate | | | + + + + + | UA 09768 | Urinalysis | | | + + + + + | CHEM PROF 40104 | CMP (Comprehensive | | | | | Metabolic Panel) | | | + + + + + | CBC 28401 | CBC w/ Diff - w/ | | | | | platelets | | | + + + + + | GLYCO HGB 22336 | HgbA1C | | | + + + + + | TSH 85404 | TSH | | | + + + + + | VIT D HYDR 80026 | Vit D, 25 hydroxy | | [...] +-------+---------+ + | | Heart Rate | 73 | /min | pulse rate E&M | [...]
--- OUTSIDE RECORDS SUMMARY | ~2019-03-25 | XMS | Clinical Summary ---
Demographics + + + | Address | [address] | | | [place], [place] [address] | + + + | Home Phone | | + + + | Preferred Language | Unknown | + + + | Marital Status | D | + + + | Yazdanism Affiliation | Unknown | + + + | Race | Unknown | + + + | Ethnic Group | or | + + + Author + + + | Author | [facility] | + + + | Organization | [facility] | + + + | Address | [address] | | | [place] [address] | + + + | Phone | Unavailable | + + + Care Team Providers + +------+ + | Care Hat Body Sorter Name | Role | Phone | + [...] | | tion | | +---------+---------+---------+---------+---------+---------+---------+---------+---------+ | MILD | [id number] | | Active | | Maulik | [...] uterus | | +---------+---------+---------+---------+---------+---------+---------+---------+---------+ | COLONIC | [id number] | | Active | | Emeka | [...] | | | +---------+---------+---------+---------+---------+---------+---------+---------+---------+ | CONSTIP | [id number] | | Active | | Emeka | | Constip | | | ATION | 8 | /13 | | /13 | Petre | | ation | | | | (SNOMED | | | | MD | | | | | | CT) | | | | | | | | +---------+---------+---------+---------+---------+---------+---------+---------+---------+ | CHANGE | [id number] | | Active | | Emeka | | Altered | | | IN | 9 | /13 | | /13 | Petre | | bowel | | | BOWEL | (SNOMED | | | | MD | | functio | | | HABITS | CT) | | | | | | n | | +---------+---------+---------+---------+---------+---------+---------+---------+---------+ | DECREAS | [id number] | | Active | | Emeka | | Decreas | | | ED | 6 | /13 | | /13 | Petre | | e in | | | APPETIT | (SNOMED | | | | MD | | appetit | | | E | CT) | | | | | | e | | +---------+---------+---------+---------+---------+---------+---------+---------+---------+ | WEIGHT | [id number] | | Active | | Emeka | | Abnorma | | | LOSS | 01 | | | 13 | Petre | | l | | | ABNORMA | (SNOMED | | | | MD | | weight | | | L | CT) | | | | | | loss | | +---------+---------+---------+---------+---------+---------+---------+---------+---------+ | NAUSEA | 5363407 | | Active | | Emeka | | Nausea | | | ALONE | 07 | / | | /13 | Petre | | | | | | (SNOMED | | | | MD | | | | | | CT) | | | | | | | | +---------+---------+---------+---------+---------+---------+---------+---------+---------+ | RECTAL | [id number] | | Active | | Emeka | | Rectal | | | BLEEDIN | 2 | /13 | | /13 | Petre | | hemorrh | | | G | (SNOMED | | | | MD | | age | | | | CT) | | | | | | | | +---------+---------+---------+---------+---------+---------+---------+---------+---------+ | DEMENTI | [id number] | | Active | | Christen | | Dementi | | | A | 6 | /10 | | /10 | J. | | a | | | WITHOUT | (SNOMED | | | | [place] | | | | | | CT) | | | | ta [employer] | | | | | BEHAVIO | | | | | | | | | | RAL | | | | | | | | | | DISTURB | | | | | | | | | | ANCE | | | | | | | | | +---------+---------+---------+---------+---------+---------+---------+---------+---------+ | CHRONIC | [id number] | | Active | | Christen | | Chronic | | | | 03 | /10 | | /10 | J. | | | | | PROGRES | (SNOMED | | | | [place] | | progres | | | SIVE | CT) | | | | ta [employer] | | sive | | | RENAL | | | | | | | renal | | | FAILURE | | | | | | | failure | | +---------+---------+---------+---------+---------+---------+---------+---------+---------+ | ANEMIA | [id number] | | Active | | Crhisten | | Anemia | | | | 00 | /10 | | /10 | J. | | | | | | (SNOMED | | | | Alexis | | | | | | CT) | | | | ta [employer] | | | | +---------+---------+---------+---------+---------+---------+---------+---------+---------+ | DEMENTI | 0305703 | | Active | | Christen | | Procedu | | | A | 03 | / | | /22 | J. | | re | | | SCREENI | (SNOMED | | | | [place] | | carried | | | NG | CT) | | | | ta [employer]IST | | out on | | | | | | | | | | | | | | | | | | | | subject | | +---------+---------+---------+---------+---------+---------+---------+---------+---------+ | FALL | [id number] | | Active | | Christen | | At risk | | | RISK | 07 | / | | / | J. | | for | | | | (SNOMED | | | | [place] | | falls | | | | CT) | | | | ta [employer]IST | | | | +---------+---------+---------+---------+---------+---------+---------+---------+---------+ | DIABETE | 6205895 | | Resolve | | Christen | | Diabeti | | | S | 859516 | / | d | / | J. | | c | | | MELLITU | (SNOMED | | | | [place] | | periphe | | | S, TYPE | CT) | | | | ta [employer]IST | | ral | | | II [...] s | | +---------+---------+---------+---------+---------+---------+---------+---------+---------+ | CORNS | [id number] | | Inactiv | | Kali | | Corns | | | AND | 00 | /13 | e | /13 | Palacio | | and | | | CALLOSI | (SNOMED | | | | DPM | | callus | | | TIES | CT) | | | | | | | | +---------+---------+---------+---------+---------+---------+---------+---------+---------+ | HAMMER | 2864367 | | Active | | Kali | | Kareem | | | TOE, | | | | | Hakeem | | bonny | | | OTHER, | (SNOMED | | | | DPM | | | | | ACQUIRE | CT) | | | | | | | | | D | | | | | | | | | +---------+---------+---------+---------+---------+---------+---------+---------+---------+ | HALLUX | [id number] | | Active | | Kali | [...] | ROPATHY | (ICD-10 | / | | / | Palacio [...] ropathy | | +---------+---------+---------+---------+---------+---------+---------+---------+---------+ | DIABETE | [id number] | | Active | | Kali | [...] s | | +---------+---------+---------+---------+---------+---------+---------+---------+---------+ | ONYCHOM | 5685115 | | Active | | Kali | | Onychom | | | YCOSIS | 08 | / | | / | Palacio | | ycosis | | | | (SNOMED | | | | DPM | | | | | | CT) | | | | | | | | +---------+---------+---------+---------+---------+---------+---------+---------+---------+ | HEARTBU | 8804178 | | Active | | Tiesha | | Heartbu | | | RN | 0 | / | | | | | rn | | | | (SNOMED | | | | [place] | | | | | | CT) | | | | MD | | | | +---------+---------+---------+---------+---------+---------+---------+---------+---------+ | TYPE 2 | [id number] | | Active | | Tiesha | [...] athy | | +---------+---------+---------+---------+---------+---------+---------+---------+---------+ | UTI | 3839449 | | Active | | Pako | | Urinary | | | | 5 | /13 | | /13 | [place] | | tract | | | | (SNOMED | | | | auff | | infecti | | | | CT) | | | | [employer] | | ous | | | | | | | | | | disease | | +---------+---------+---------+---------+---------+---------+---------+---------+---------+ | LOCALIZ | 4863278 | | Active | | [place] | [...] | | | +---------+---------+---------+---------+---------+---------+---------+---------+---------+ | LIPOMA | 4687154 | | Active | | Lauranc | | Lipoma | | | | 2 | /14 | | /14 | e W | | (clinic | | | | (SNOMED | | | | Lila | | al) | | | | CT) | | | | MD | | | | +---------+---------+---------+---------+---------+---------+---------+---------+---------+ | VITAMIN | 0957441 | | Active | | David W | | Vitamin | | | D | 6 | /14 | | /15 | Theen | | D | | | DEFICIE | (SNOMED | | | | MD FACE | | deficie | | | NCY | CT) | | | | FACP | | ncy | | +---------+---------+---------+---------+---------+---------+---------+---------+---------+ | OBESITY | 2750013 | | Active | | David Paez | | Obesity | | | , BMI | 01 | /14 | | /15 | Theen | | | | | 35-39.9 | (SNOMED | | | | MD FACE | | | | | , ADULT | CT) | | | | FACP | | | | +---------+---------+---------+---------+---------+---------+---------+---------+---------+ | DIABETE | 6451081 | | Removed | | David Paez | | Diabeti | | | S | 873595 | / | | /15 | Theen | | [...] s | | +---------+---------+---------+---------+---------+---------+---------+---------+---------+ | HALLUX | 5056991 | | Inactiv | | Kali | [...] | | | +---------+---------+---------+---------+---------+---------+---------+---------+---------+ | HAMMER | 1734069 | | Inactiv | | Kali | [...] | | | +---------+---------+---------+---------+---------+---------+---------+---------+---------+ | ONYCHOM | 0714415 | | Inactiv | | Kali | [...] ropathy | | +---------+---------+---------+---------+---------+---------+---------+---------+---------+ | DIABETE | 2691736 | | Inactiv | | Kali | [...] s | | +---------+---------+---------+---------+---------+---------+---------+---------+---------+ | SCREENI | 8298690 | | Resolve | | Lauranc | | Depress | | | NG FOR | 06 | /10 | d | /10 | e W | | ion | | | DEPRESS | (SNOMED | | | | Lila | | screeni | | | ION | CT) | | | | MD | | ng | | +---------+---------+---------+---------+---------+---------+---------+---------+---------+ | SCREENI | 7305909 | | Resolve | | Lauranc | [...] | | | +---------+---------+---------+---------+---------+---------+---------+---------+---------+ | SCREENI | 2578901 | | Resolve | | Lauranc | [...] ng | | +---------+---------+---------+---------+---------+---------+---------+---------+---------+ | SCREENI | 2408009 | | Removed | | Geetha | [...] ng | | +---------+---------+---------+---------+---------+---------+---------+---------+---------+ | SCREENI | 0018996 | | Removed | | Geetha | | Screeni | | | NG FOR | 05 | /10 | | /10 | [place] | | ng for | | | UNSPECI | (SNOMED | | | | [facility] | | disorde | | | FIED | CT) | | | | | | r | | | CONDITI | | | | | | | | | | ON | | | | | | | | | +---------+---------+---------+---------+---------+---------+---------+---------+---------+ | SCREENI | 2017415 | | Removed | | Geetha | | Depress | | | NG FOR | 06 | / | | /10 | [place] | | ion | | | DEPRESS | (SNOMED | | | | [facility] | | screeni | | | ION | CT) | | | | | | ng | | +---------+---------+---------+---------+---------+---------+---------+---------+---------+ | RENAL | 6966267 | | Active | | Lauranc | [...] e | | +---------+---------+---------+---------+---------+---------+---------+---------+---------+ | EDEMA | 5660345 | | Active | | Lauranc | | Edema | | | | 08 | / | | | e W | | | | | | (SNOMED | | | | Lila | | | | | | CT) | | | | MD | | | | +---------+---------+---------+---------+---------+---------+---------+---------+---------+ | RENAL | 2873961 | | Active | | Luz | [...] e | | +---------+---------+---------+---------+---------+---------+---------+---------+---------+ | PERIPHE | 4838919 | | Active | | Lauranc | [...] disease | | +---------+---------+---------+---------+---------+---------+---------+---------+---------+ | CANDIDI | 8216446 | | Active | | Susanna | | Candidi | | | ASIS, | 6 | /31 | | /03 | Medel | | asis of | | | SKIN | (SNOMED | | | | MD | | skin | | | | CT) | | | | | | | | +---------+---------+---------+---------+---------+---------+---------+---------+---------+ | DYSURIA | 2469705 | | Active | | Erica | | Dysuria | | | | 1 | /31 | | /31 | Paul | | | | | | (SNOMED | | | | [place] | | | | | | CT) | | | | | | | | +---------+---------+---------+---------+---------+---------+---------+---------+---------+ | VAGINIT | 8601223 | | Active | | Erica | | Vaginit | | | IS | 1 | /31 | | / | Paul | | is | | | | (SNOMED | | | | MA | | | | | | CT) | | | | | | | | +---------+---------+---------+---------+---------+---------+---------+---------+---------+ | RLQ | 0630304 | | Resolve | | Lauranc | | Right | | | PAIN | 02 | | d | /11 | e W | | lower | | | | (SNOMED | | | | Lila | | quadran | | | | CT) | | | | MD | | t pain | | +---------+---------+---------+---------+---------+---------+---------+---------+---------+ | ABDOMIN | 1931539 | | Resolve | | Lauranc | [...] | | | +---------+---------+---------+---------+---------+---------+---------+---------+---------+ | KNEE | 2782390 | | Active | | Lauranc | | Knee | | | PAIN | 3 | /14 | | /14 | e W | | pain | | | | (SNOMED | | | | Lila | | | | | | CT) | | | | MD | | | | +---------+---------+---------+---------+---------+---------+---------+---------+---------+ | Questio | 6468835 | | Correct | | Lauranc | [...] | | | +---------+---------+---------+---------+---------+---------+---------+---------+---------+ | VERTEBR | 9854414 | | Active | | Lauranc | [...] e | | +---------+---------+---------+---------+---------+---------+---------+---------+---------+ | VERTIGO | 6065490 | | Active | | Luz | | Vertigo | | | | 01 | /28 | | /03 | Asad | | | | | | (SNOMED | | | | RN | | | | | | CT) | | | | | | | | +---------+---------+---------+---------+---------+---------+---------+---------+---------+ | CHEST | 6964935 | | Inactiv | | Genny | | Chest | | | PAIN | 9 | | e | /02 | [place] | | pain | | | | (SNOMED | | | | | | | | | | CT) | | | | | | | | +---------+---------+---------+---------+---------+---------+---------+---------+---------+ | CHEST | 0501767 | | Inactiv | | Lauranc | [...] fied | | +---------+---------+---------+---------+---------+---------+---------+---------+---------+ | CEREBRO | 5336953 | | Active | | Rogers | | 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 | (SNOMED | | | | MD | | r | | | DISEASE | CT) | | | | | | disease | | +---------+---------+---------+---------+---------+---------+---------+---------+---------+ | History | 4768798 | | Active | | Rogers | [...] er for | | | ACTIC | -) | | | | Lila | | immuniz | | | VACCINA | | | | | MD | | ation | | | TION&IN | | | | | | | | | | OCULATI | | | | | | | | | | ON FLU | | | | | | | | | +---------+---------+---------+---------+---------+---------+---------+---------+---------+ | DIABETI | 4730400 | | Active | | Rogers | [...] thy | | +---------+---------+---------+---------+---------+---------+---------+---------+---------+ | HYPERLI | 5071543 | | Active | | Rogers | | Hyperli | | | PIDEMIA | | | | /30 | Laith | | pidemia | | | | (SNOMED | | | | MD | | | | | | CT) | | | | | | | | +---------+---------+---------+---------+---------+---------+---------+---------+---------+ | History | 5450307 | | Active | | Rogers | [...] e | | +---------+---------+---------+---------+---------+---------+---------+---------+---------+ | CEREBRA | 4395066 | | Correct | | Rogers | [...] s | | +---------+---------+---------+---------+---------+---------+---------+---------+---------+ | ABDOMIN | 8397768 | | Removed | | Patricia | [...] | | | +---------+---------+---------+---------+---------+---------+---------+---------+---------+ | RLQ | 6169402 | | Removed | | Patricia | [...] fied | | +---------+---------+---------+---------+---------+---------+---------+---------+---------+ | CARPAL | 4379719 | | Active | | Rogers | | Carpal | | | TUNNEL | 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 | | | | MD | | 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, LEFT | CT) | | | | | | e | | +---------+---------+---------+---------+---------+---------+---------+---------+---------+ | Questio | 1437747 | | Removed | | Rogers | [...] | | | +---------+---------+---------+---------+---------+---------+---------+---------+---------+ | GAIT | 0428051 | | Active | | Rogers | | Abnorma | | | IMBALAN | 2 | | | | Laith | | l gait | | | CE | (SNOMED | | | | MD | | | | | | CT) | | | | | | | | +---------+---------+---------+---------+---------+---------+---------+---------+---------+ | BRAIN | 5546184 | | Correct | | Rogers | [...] e | | +---------+---------+---------+---------+---------+---------+---------+---------+---------+ | PARESTH | 9148691 | | Active | | Rogers | | Paresth | | | ESIA, | | | | | Laith | | esia of | | | HANDS | (SNOMED | | | | MD | | hand | | | | CT) | | | | | | | | +---------+---------+---------+---------+---------+---------+---------+---------+---------+ | PERIPHE | 8799155 | | Correct | | Rogers | | Periphe | | | RAL | 06 | /25 | ion | /25 | Laith | | ral | | | NEUROPA | (SNOMED | | | | MD | | nerve | | | THY | CT) | | | | | | disease | | +---------+---------+---------+---------+---------+---------+---------+---------+---------+ | THYROID | 8442192 | | Active | | Luz | | Thyroid | | | NODULE | 05 | /20 | | /20 | Eladio | | nodule | | | | (SNOMED | | | | [facility] | | | | | | CT) | | | | | | | | +---------+---------+---------+---------+---------+---------+---------+---------+---------+ | TIA | 1793819 | | Active | | Lauranc | [...] a | | +---------+---------+---------+---------+---------+---------+---------+---------+---------+ | SYNCOPE | 3446215 | | Active | | Lauranc | | Syncope | | | | 07 | /07 | | /10 | e W | | | | | | (SNOMED | | | | Lila | | | | | | CT) | | | | MD | | | | +---------+---------+---------+---------+---------+---------+---------+---------+---------+ | GASTROP | 5801860 | | Active | | Lauranc | | 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 | | | | (SNOMED | | | | Lila | | syndrom | | | | CT) | | | | MD | | e | | +---------+---------+---------+---------+---------+---------+---------+---------+---------+ | CONSTIP | 7174610 | | Active | | Lauranc | | Chronic | | | ATION, | | / | | | e W | | | | | CHRONIC | (SNOMED | | | | Lila | | constip | | | | CT) | | | | MD | | ation | | +---------+---------+---------+---------+---------+---------+---------+---------+---------+ | POSTHER | 0349789 | | Active | | Lauranc | | Posther | | | 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 | (SNOMED | | | | Lila | | neuralg | | | IA | CT) | | | | MD | | ia | | +---------+---------+---------+---------+---------+---------+---------+---------+---------+ | DIZZINE | 4611714 | | Active | | Lauranc | | Dizzine | | | SS | 03 | /08 | | /08 | e W | | ss | | | | (SNOMED | | | | Lila | | | | | | CT) | | | | MD | | | | +---------+---------+---------+---------+---------+---------+---------+---------+---------+ | DEHYDRA | 8735589 | | Active | | Lauranc | | Dehydra | | | TION | 6 | /08 | | /08 | e W | | tion | | | | (SNOMED | | | | Lila | | | | | | CT) | | | | MD | | | | +---------+---------+---------+---------+---------+---------+---------+---------+---------+ | DIABETE | 8347059 | 2013/05 | Active | | Lauranc | | [...] | | | +---------+---------+---------+---------+---------+---------+---------+---------+---------+ | HYPERTE | 3989981 | | Active | | Lauranc | [...] 1 tab | | | ONDANSETRO | [id number] | Kali | | N HCL 4 MG | every 4 | | | N HCL | 3 | Palacio DPM | | TABS | hours | | | | | | + + + + + + + + | GABAPENTIN | take 2 | | | GABAPENTIN | 0478078856 | Bailey W | | 300 MG [...] 1 tab | | | GABAPENTIN | 1924635397 | Ejsus | | 300 MG | po tid . | | | | 0 | Ethan MD | | CAPS | Pt states | | | | | | | | as needed | | | | | | + + + + + + + + | COLACE 100 | 1 tab by | | | DOCUSATE | 7709106939 | Kali | | MG CAPS | mouth | | | SODIUM | 0 | Palacio DPM | | | daily at | | | | | | | | bedtime | | | | | | + + + + + + + + | ASPIRIN | take 1 | | | ASPIRIN | 1408393665 | Rogers | | 325 MG | [...] 1 tab | | | PREGABALIN | 7811108406 | Bailey W | | MG CAPS | three | | | | 3 | Lila MD | | | times per | | | | | | | | day | | | | | | + + + + + + + + | GLUCOPHAGE | 1 tab one | | | METFORMIN | 4475231763 | Bailey W | | XR 500 MG | time per | | | HCL | 0 | Lila MD | | [id number] | day | | | | | | + + + + + + + + | HUMALOG | BS <150 - | | | INSULIN | 9612271058 | Christen Ramirez | | 100 | No insulin | | | LISPRO | 1 | [place] | | UNIT/ML | BS | | | (HUMAN) | | [employer] | | SOLN | 150-200 | | [...] 50 units | | | INSULIN | 8961136569 | Pako | | UNIT/ML | once per | | | GLAVERNA | 3 | Ramesh | | [place] | mikaela. Pt | | | | | f [employer] | | | states she | | | | | | | | is taking | | | | | | | | 56 units | | | | | | | | every AM | | | | | | + + + + + + + + | ERGOCALCIF | One | | | ERGOCALCIF | 4856928222 | Mariano | | QUANG 07403 | capsule by | | | QUANG [...] take 2 | | | GABAPENTIN | 6931843136 | Mariano | | 300 MG | [...] 10ml QAM | | | METFORMIN | 3873708714 | Mariano | | MG/5ML | Liquid due | | | HCL | 2 | Ariella | | SOLN | to | | | | | CCMA | | | Dysphagia | | | | | | + + + + + + + + | ASPIRIN EC | take 1 | | | ASPIRIN | 5321414018 | Rogers | | 325 MG | tablet | | | | 0 | Laith MD | | TBEC | daily | | | | | | + + + + + + + + | RELION | Use to | | | GLUCOSE | 3909774660 | Kali | | BLOOD | test BG | | | BLOOD | 4 | Palacio DPM | | GLUCOSE | one time | | | | | | | TEST STRP | per day | | | | | | + + + + + + + + | COLACE 100 | one tablet | | | DOCUSATE | 4995732861 | Bailey W | | MG CAPS | by mouth | | | SODIUM | 0 | Lila MD | | | at bedtime | | | | | | + + + + + + + + | BIOTIN 1 | Take one | | | BIOTIN | 0267770957 | Jesus | | MG CAPS | daily in | | | | 2 | Ethan MD | | | the AM | | | | | | + + + + + + + + | BACTRIM DS | 1 by mouth | | | TRIMETHOPR | 5848041165 | Bailey W | | 800-160 | twice a | | | IM-SULFAME | 1 | Lila MD | | MG TABS | day for 3 | | | THOXAZOLE | | | | | days | | | | | | + + + + + + + + | ASPIRIN 81 | one time | | | ASPIRIN | 2688019481 | Mariano | | MG TABS | per day | | | | 5 | Ariella | | | | | | | | CCMA | + + + + + + + + | GABAPENTIN | two times | | | GABAPENTIN | 8317643183 | Mariano | | 100 MG | per day | | | | 1 | Ariella | | CAPS | | | | | | CCMA | + + + + + + + + | BIOTIN 1 | | | | BIOTIN | 0173067919 | Kali | | MG CAPS | | | | | 2 | Palacio DPM | + + + + + + + + | PIOGLITAZO | Take 1 tab | | | PIOGLITAZO | 3928715906 | Jesus | | NE HCL 15 [...] two times | | | MECLIZINE | 4566860022 | Mariano | | HCL 25 MG [...] take 1 | | | ASPIRIN | 8402726465 | Mariano | | 325 MG | tablet | | | | 0 | Ariella | | TBEC | daily | | | | | CCMA | + + + + + + + + | NEURONTIN | take 1 tab | | | GABAPENTIN | 8071669597 | Franciscoance W | | 300 MG | po tid | | | | 0 | Lila MD | | CAPS | | | | | | | + + + + + + + + | DIOVAN 160 | one time | | | VALSARTAN | 1962080957 | Mariano | | MG TABS | per day | | | | 0 | Ariella | | | | | | | | CCMA | + + + + + + + + | ASPIRIN | take 1 | | | ASPIRIN | 6484123704 | Bailey Paez | | 325 MG | tablet by [...] Take one | | | POTASSIUM | 4474048912 | Jesus | | CHLORIDE | cap daily | | | CHLORIDE | 5 | Ethan MD | | ER 10 MEQ | in the AM | | | | | | | CR-CAPS | | | | | | | + + + + + + + + | KEFLEX 500 | 1 pill | | | CEPHALEXIN | 7957308600 | Tiesha | | MG CAPS | twice a | | | | 0 | [place] MD | | | day for 7 | | | | | | | | days | | | | | | + + + + + + + + | GABAPENTIN | one tablet | | | GABAPENTIN | 1193913422 | Laurance W | | 100 MG [...] 1 tab | | | MECLIZINE | 4739690896 | Laurance W | | HCL 25 MG | three | | | HCL | 1 | Lila MD | | TABS | times per | | | | | | | | day | | | | | | + + + + + + + + | BYETTA 5 | 0.02 ml | | | EXENATIDE | 0089533770 | Laurance W | | MCG PEN 5 | injection | | | | 1 | Lila MD | | MCG/0.02ML | two times | | | | | | | SOPN | per day | | | | | | + + + + + + + + | FLUCONAZOL | take one | | | FLUCONAZOL | 8256489791 | Laurance W | | E 150 [...] tab two | | | CILOSTAZOL | 2122287846 | Kali | | 100 MG | times per | | | | 1 | Palacio DPM | | TABS | day | | | | | | + + + + + + + + | RIOMET 500 | 10ml's two | | | METFORMIN | 6886201027 | Franciscoance W | | MG/5ML | [...] D | | | | CHOLECALCI | 9503686943 | Kali | | 1000 UNIT | | | | FEROL | 0 | Hakeem DPM | | TABS | | | | | | | + + + + + + + + | BYETTA 5 | Take as | | | EXENATIDE | 0692651389 | Christen Ramirez | | MCG PEN 5 | directed | | | | 1 | [place] | | MCG/0.02ML | once daily | | | | | [employer] | | SOPN | in the AM [...] two times | | | METFORMIN | 1172910030 | Mariano | | HCL 1000 | per day | | | HCL | 1 | Ariella | | MG TABS | | | | | | CCMA | + + + + + + + + | GABAPENTIN | Take 2 | | | GABAPENTIN | 0221281341 | Bailey W | | 300 MG [...] TAKE ONE | | | PREGABALIN | 9298999421 | Kesha | | MG CAPS | [...] 1 TAB | | | BUSPIRONE | 9088584819 | Kali | | HCL 7.5 MG | three | | | HCL | 5 | Palacio DPM | | TABS | times per | | | | | | | | day | | | | | | + + + + + + + + | LANTUS 100 | 25 units | | | INSULIN | [id number] | Jesus | | UNIT/ML | two [...] two times | | | MECLIZINE | [id number] | Bailey W | | HCL 25 MG | per day | | | HCL | 2 | Lila MD | | TABS | | | | | | | + + + + + + + + | MECLIZINE | One tab by | | | MECLIZINE | [id number] | Laurance W | | HCL 25 [...] Take one | | | CHOLECALCI | [phone] | Jesus | | 1000 UNIT | tablet | | | FEROL | 0 | Ethan MD | | TABS | daily in | | | | | | | | the AM | | | | | | + + + + + + + + | POTASSIUM | | | | POTASSIUM | [id number] | Kali | | CHLORIDE | | | | CHLORIDE | 5 | Palacio DPM | | ER 10 MEQ | | | | | | | | CR-CAPS | | | | | | | + + + + + + + + | DULOXETINE | 1 tab one | | | DULOXETINE | [id number] | Bailey W | | HCL 30 MG | time per | | | HCL | 6 | Lila MD | | CPEP | day | | | | | | + + + + + + + + | VICTOZA 18 | | | | LIRAGLUTID | [id number] | Jesus | | MG/3ML | | | | E | 2 | Ethan MD | | SOPN | | | | | | | + + + + + + + + | BASAGLAR | 1 pen | | | INSULIN | [id number] | Christen Ramirez | | KWIKPEN | every 3 | | | GLARGINE | 9 | Raumakita | | 100 | days 56 | | | | | [employer]IST | | UNIT/ML | units q | [...] by mouth | | | MECLIZINE | [id number] | Bailey W | | HCL 25 [...] mix and | | | NA | [id number] | Maulik | | BOWEL PREP | [...] 18 | | | | LIRAGLUTID | [id number] | Bailey W | | MG/3ML | | | | E | 2 | Lila MD | | SOPN | | | | | | | + + + + + + + + | BASAGLAR | 56 Units | | | INSULIN | [id number] | Christen Ramirez | | KWIKALETHA | every | | | GLARGINE | 9 | Raumakita | | 100 | morning | | | | | [employer]IST | | UNIT/ML | | | | | | | | SOPN | | | | | | | + + + + + + + + | VICTOZA 18 | Inject 0.6 | | | LIRAGLUTID | [id number] | Christen J. | | MG/3ML | mg daily | | | E | 2 | Raumakita | | SOPN | | | | | | [employer]IST | + + + + + + + + | BASAGLAR | 56 Units | | | INSULIN | [id number] | Christen J. | | KWIKPEN | by mouth | | | GLARGINE | 9 | Raumakita | | 100 | every | | | | | [employer]IST | | UNIT/ML | morning | | | | | | | SOPN | | | | | | | + + + + + + + + | VICTOZA 18 | 5 unit AM | | | LIRAGLUTID | [id number] | Christen J. | | MG/3ML | and 5 | | | E | 2 | Raum[place]ita | | SOPN | units PM | | | | | [employer]IST | + + + + + + + + | BASAGLAR | 1 pen | | | INSULIN | [id number] | Christen Ramirez | | KWIKPEN | every 3 | | | GLARGINE | 9 | Raumakita | | 100 | days 56 | | | | | [employer] SPECIALIST | | UNIT/ML | units q | | | | | | | SOPN | Day | | | | | | + + + + + + + + | MECLIZINE | One tab by | | | MECLIZINE | 8984856050 | Christen Ramirez | | HCL 25 MG | mouth | | | HCL | 0 | Raumakita | | TABS | three | | | | | [employer]IST | | | times per | | | | | | | | day | | | | | | + + + + + + + + | PEN | Use one | | | PEN | | Christen Ramirez | | NEEDLES | pen needle | | | NEEDLES | | Raumakita | | FOR | every | | | FOR | | [employer]IST | | BASAGLAR | morning | | | BASAGLAR | | | | KWIKPEN | with | | | KWIKPEN | | | | | Basaglar | | | | | | | | Kwikpen | | | | | | + + + + + + + + | BYETTA 5 | Take as | | | EXENATIDE | [id number] | Christen Ramirez | | MCG PEN 5 | directed | | | | 1 | Raumakita | | MCG/0.02ML | once daily | | | | | [employer]IST | | SOPN | in the AM | | | | | | + + + + + + + + | LANTUS 100 | 56 units | | | INSULIN | 7600837862 | Kaykay | | UNIT/ML | qAM | | | GLARGINE | 3 | Mora DO | | SOLN | | | | | | | + + + + + + + + | PLAVIX 75 | 1 tab by | | | CLOPIDOGRE | [id number] | David | | MG TABS | mouth one | | | L | 0 | Mark DO | | | time per | | | BISULFATE | | | | | day in the | | | | | | | | evening | | | | | | + + + + + + + + | VALSARTAN | Take one | | | VALSARTAN | 5829149669 | Christen J. | | 160 MG | tablet | | | | 2 | Raumakita | | TABS | daily in | | | | | [employer]IST | | | the AM | | | | | | + + + + + + + + | OMEPRAZOLE | Take one | | | OMEPRAZOLE | 2722766159 | Christen J. | | 40 MG | by mouth | | | | 5 | Raum[place]ita | | CPDR | one time | | | | | [employer]IST | | | per day | | [...] mix and | | | NA | 8507579548 | Emeka | | BOWEL PREP | [...] pill BID | | | DOCUSATE | [id number] | Christen Ramirez | | MG CAPS | | | | SODIUM | 0 | Raumakita | | | | | | | | [employer]IST | + + + + + + + + | BD INSULIN | Use 5 | | | INSULIN | 4365649061 | Tiesha | | SYRINGE | times | | | SYRINGE-NE | 1 | Maria Isabel MD | | ULTRAFINE | daily to [...] 1 tab | | | PREGABALIN | 6827427771 | Tiesha | | MG CAPS | three | | | | 8 | Maria Isabel MD | | | times per | | | | | | | | day. Pt | | | | | | | | states as | | | | | | | | needed | | | | | | + + + + + + + + | LIPITOR 20 | take 1 | | | ATORVASTAT | 4606318765 | Tiesha | | MG TABS | tablet by | | | IN CALCIUM | 0 | Maria Isabel MD | | | mouth | | | | | | | | daily in | | | | | | | | the | | | | | | | | evening | | | | | | + + + + + + + + | HUMALOG | BS <150 - | | | INSULIN | 2604392808 | Tiesha | | 100 | No insulin | | | LISPRO | 1 | [place] MD | | UNIT/ML | BS | [...] Use daily | | | INSULIN | 0583990943 | Tiesha | | NEEDLE | to [...] Use daily | | | GLUCOSE | 6105709716 | Tiesha | | BLOOD | to check | | | BLOOD | 4 | Maria Isabel MD | | GLUCOSE | blood | | | | | | | TEST STRP | sugar | | | | | | + + + + + + + + | LASIX 80 | 1 tab by | | | FUROSEMIDE | 2510093828 | Tiesha | | MG TABS | [...] per | | | FOOT CARE | 0185902590 | Tiesha | | INSOLES | custom [...] 1 pill | | | CEPHALEXIN | 3456656817 | Pako | | MG CAPS | twice a | | | | 0 | Middlekauf | | | day for 7 | | | | | f [employer]IST | | | days | | | | | | + + + + + + + + | BYETTA 5 | 0.02 ml | | | EXENATIDE | 2584941461 | Laurance W | | MCG PEN 5 | injection | | | | 1 | Lila MD | | MCG/0.02ML | two times | | | | | | | SOPN | per day | | | | | | + + + + + + + + | LYRICA 100 | 1 tab | | | PREGABALIN | 2328155399 | Laurance W | | MG CAPS | three | | | | 8 | Lila MD | | | times per | | | | | | | | day | | | | | | + + + + + + + + | DRAMAMINE | take 1-2 | | | DIMENHYDRI | 8189478612 | Bailey W | | 50 MG [...] Use 5 | | | INSULIN | 1877172272 | Bailey W | | SYRINGE | [...] tab by | | | CLOPIDOGRE | 3539644698 | Franciscoance W | | MG TABS | mouth one | | | L | 4 | Lila MD | | | time per | | | BISULFATE | | | | | day | | | | | | + + + + + + + + | LANTUS 100 | 25 units | | | INSULIN | 8549015011 | Laurance W | | UNIT/ML | two times | | | GLARGINE | 3 | Lila MD | | SOLN | per day | | | | | | + + + + + + + + | LASIX 80 | 1 tab by | | | FUROSEMIDE | 9312312848 | Laurance W | | MG TABS | mouth one | | | | 5 | Lila MD | | | time per | | | | | | | | day | | | | | | + + + + + + + + | FUROSEMIDE | 1 tab one | | | FUROSEMIDE | 8425923734 | Laurance W | | 40 MG | time per | | | | 0 | Lila MD | | TABS | day | | | | | | + + + + + + + + | BUSPIRONE | 1 TAB | | | BUSPIRONE | 1790933047 | Laurance W | | HCL 7.5 MG | three | | | HCL | 5 | Lila MD | | TABS | times per | | | | | | | | day | | | | | | + + + + + + + + | COLACE 100 | 1 tab by | | | DOCUSATE | 5954262624 | Laurance W | | MG CAPS | mouth | | | SODIUM | 0 | Lila MD | | | daily at | | | | | | | | bedtime | | | | | | + + + + + + + + | BACTRIM DS | 1 by mouth | | | TRIMETHOPR | 5660523743 | Laurance W | | 800-160 | twice a | | | IM-SULFAME | 1 | Lila MD | | MG TABS | day for 3 | | | THOXAZOLE | | | | | days | | | | | | + + + + + + + + | LYRICA 50 | Take 1 tab | | | PREGABALIN | 2367309044 | Laurance W | | MG CAPS [...] tab one | | | METFORMIN | 7935916798 | Laurance W | | XR 500 MG | time per | | | HCL | 0 | Lila MD | | [id number] | day | | | | | | + + + + + + + + | NYSTATIN-T | Apply thin | | | NYSTATIN-T | 5381110958 | Laurance W | | RIAMCINOLO | layer to | | | RIAMCINOLO | 0 | Lila MD | | NE | affected | | | NE | | | | 573261-2.1 | area BID | | | | | | | UNIT/GM-% | prn for | | | | | | | CREA | itching | | | | | | + + + + + + + + | CILOSTAZOL | 1 tab two | | | CILOSTAZOL | 5052523490 | Laurance W | | 100 MG | times per | | | | 1 | Lila MD | | TABS | day | | | | | | + + + + + + + + | OMEPRAZOLE | Take one | | | OMEPRAZOLE | 2743099435 | Laurance W | | 40 MG [...] take 1 | | | ATORVASTAT | 9341060774 | Laurance W | | MG TABS | tablet by | | | IN CALCIUM | 0 | Lila MD | | | mouth | | | | | | | | daily | | | | | | + + + + + + + + | MECLIZINE | 1 tab | | | MECLIZINE | 0276785126 | Laurance W | | HCL 25 MG | three | | | HCL | 1 | Lila MD | | TABS | times per | | | | | | | | day | | | | | | + + + + + + + + | LANTUS 100 | 56 units | | | INSULIN | 1461361741 | Laurance W | | UNIT/ML | in the | | | GLARGINE | 3 | Lila MD | | SOLN | morning | | | | | | + + + + + + + + | ONDANSETRO | 1 tab | | | ONDANSETRO | 4849314176 | Laurance W | | N HCL 4 MG | every 4 | | | N HCL | 3 | Lila MD | | TABS | hours | | | | | | + + + + + + + + | PIOGLITAZO | Take 1 tab | | | PIOGLITAZO | 0430369555 | Bailey W | | NE HCL 15 | by mouth | | | NE HCL | 0 | Lila MD | | MG TABS | one time | | | | | | | | per day | | | | | | + + + + + + + + | RELION | Use to | | | GLUCOSE | 8274125831 | Bailey W | | BLOOD | test BG | | | BLOOD | 4 | Lila MD | | GLUCOSE | one time | | | | | | | TEST STRP | per day | | | | | | + + + + + + + + | GABAPENTIN | Take 2 | | | GABAPENTIN | 9761296125 | Bailey W | | 300 MG [...] TAB one | | | VALSARTAN | 0720401780 | Laurance W | | 160 MG | time per | | | | 2 | Lila MD | | TABS | day | | | | | | + + + + + + + + | LYRICA 50 | TAKE ONE | | | PREGABALIN | 0042781051 | Laurance W | | MG CAPS [...] 0.2 ml | | | EXENATIDE | 0022655199 | Laurance W | | MCG PEN 5 | injection | | | | 1 | Lila MD | | MCG/0.02ML | two times | | | | | | | SOPN | per day | | | | | | + + + + + + + + | VICTOZA 18 | 1.2 mg | | | LIRAGLUTID | 1351203106 | Franciscoance W | | MG/3ML | injected | | | E | 3 | Lila MD | | SOPN | martin | | | | | | + + + + + + + + | KEFLEX 500 | one po TID | | | CEPHALEXIN | 1640249219 | Susanna | | MG CAPS | | | | | 0 | Gianfranco LUIS | + + + + + + + + | FLUCONAZOL | take one | | | FLUCONAZOL | 8261809983 | Susanna | | E 150 MG | tablet PO | | | E | 0 | Gianfranco LUIS | | TABS | x 1 repeat | | | | | | | | in 3 days | | | | | | + + + + + + + + | LYRICA 50 | 1 tab | | | PREGABALIN | 1775137619 | Laurance W | | MG CAPS | three | | | | 3 | Lila MD | | | times per | | | | | | | | day | | | | | | + + + + + + + + | GABAPENTIN | Take 2 | | | GABAPENTIN | 7907468049 | Laurance W | | 300 MG [...] tab one | | | DULOXETINE | 6128638918 | Laurance W | | HCL 30 MG | time per | | | HCL | 6 | Lila MD | | CPEP | day | | | | | | + + + + + + + + | RIOMET 500 | 10ml's two | | | METFORMIN | 0654375061 | Laurance W | | MG/5ML | [...] TAB one | | | VALSARTAN | 0566450028 | Laurance W | | MG TABS | time per | | | | 0 | Lila MD | | | day | | | | | | + + + + + + + + | MECLIZINE | One tab by | | | MECLIZINE | 3542769025 | Laurance W | | HCL 25 [...] take 2 | | | GABAPENTIN | 2950803801 | Bailey W | | 300 MG [...] tab one | | | VALSARTAN | 0843164303 | Bailey W | | MG TABS | time per | | | | 4 | Lila MD | | | day | | | | | | + + + + + + + + | VICTOZA 18 | 0.6 mg | | | LIRAGLUTID | 1648541117 | Bailey W | | MG/3ML | [...] tab one | | | SITAGLIPTI | 1090818475 | Laurance W | | 100 MG | time per | | | N | 8 | Lila MD | | TABS | day | | | PHOSPHATE | | | + + + + + + + + | GABAPENTIN | 2 tabs two | | | GABAPENTIN | 9858921419 | Laurance W | | 300 MG | times per | | | | 0 | Lila MD | | CAPS | day | | | | | | + + + + + + + + | DIOVAN 160 | 1 by mouth | | | VALSARTAN | 7451109681 | Laurance W | | MG TABS | every day | | | | 0 | Lila MD | + + + + + + + + | GABAPENTIN | 1 tab at | | | GABAPENTIN | 2210794660 | Laurance W | | 100 MG [...] 28 units | | | INSULIN | 0828654669 | Bailey W | | UNIT/ML | two times | | | GLARGINE | 0 | Lila MD | | SOLN | per day | | | | | | + + + + + + + + | LISINOPRIL | take 1 | | | LISINOPRIL | 3206977574 | Rogers | | 20 MG | tablet by | | | | 1 | Laith LUIS | | TABS | mouth | | | | | | | | daily | | | | | | + + + + + + + + | LANTUS 100 | 56 units | | | INSULIN | 9300524990 | Laurance W | | UNIT/ML | daily | | | GLARGINE | 0 | Lila MD | | SOLN | | | | | | | + + + + + + + + | GABAPENTIN | 1 by mouth | | | GABAPENTIN | 0433287524 | Laurance W | | 100 MG [...] | One | | | ERGOCALCIF | 8249654997 | Laurance W | | QUANG 61266 | capsule by | | | QUANG [...] by mouth | | | LISINOPRIL | 8082283212 | Laurance W | | 5 MG TABS | one time | | | | 0 | Illa MD | | | per day | | | | | | + + + + + + + + | RIOMET 500 | 10ml QAM | | | METFORMIN | 1641803997 | Laurance W | | MG/5ML | Liquid due | | | HCL | 2 | Lila MD | | SOLN | to | | | | | | | | Dysphagia | | | | | | + + + + + + + + | COLACE 100 | one tablet | | | DOCUSATE | 1350685712 | Laurance W | | MG CAPS | by mouth | | | SODIUM | 0 | Lila MD | | | at bedtime | | | | | | + + + + + + + + | MECLIZINE | 1 by mouth | | | MECLIZINE | 0833038966 | Laurance W | | HCL 25 [...] one tablet | | | METFORMIN | 5362476070 | Laurance W | | HCL 1000 | by mouth | | | HCL | 0 | Lila MD | | MG TABS | twice a | | | | | | | | day | | | | | | + + + + + + + + | ASPIRIN 81 | 1 by mouth | | | ASPIRIN | 9226626278 | Laurance W | | MG TABS | every day | | | | 5 | Lila MD | + + + + + + + + | GABAPENTIN | one tablet | | | GABAPENTIN | 1224242044 | Bailey W | | 100 MG [...] | | | | | | | [employer] SPECIALIST | + + + + + + [...] + + +------+ +---+ + | | [id number] | 0.4 | g/dL | 0.2-0.5 | | beta 2 | | | LN | | | | | globulin | + + + +------+ +---+ + | | [id number] | 0.6 | g/dL | 0.4-0.8 | [...] | | | | | | | 15-MAR-201 | | | | | | | [...] + + +---------+ +---+---+ + | | WA | 156 | ms | | | [place] | | | INTERVAL | | | [...] | + + +---------+--------+---+---+ + | | [id number] | 386 | mg/24h | | H | Microalbum | | | U | | | | | in | | | | | | | | [Mass/volu | | | | | | | | me] in 24 | | | | | | | | hour Urine | + + +---------+--------+---+---+ + + + | Office Visit: Vertigo | + + + + + +---+---+---+ + | | BLOOD UR | hemolyzed | | | | blood in | | | DIP | trace | | | | urine | | | | | | | | (hemoglobi | | | | | | | | n) by | | | | | | | | dipstick | + + + +---+---+---+ + + + | Lab Report: Coronary [...] | | | Dietary | | | 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 | [...] +---------+----+-----+--------+---+ + + + | Lab Report: CBC [...] Lipase, Blood | + + + + +--------+-------+ +---+ + | | LIPASE | 299 | U/L | 73-393 | N | lipase, | | | SERUM | | | | | serum | + + +--------+-------+ +---+ + | [...] + + +----+-------+-------+---+ + + + | Replaced Document: (P) Urinalysis, Culture If Indicat | + + + + +--------+---+ +---+ + | | REFURINCLT | Yes | | No | H | reflex | | | IN | | | | | urine | | | | | | | | culture | | | | | | | | indicated | + + +--------+---+ +---+ + | | BLOOD | 2+ [...] +--------+---+ +---+ + | | GLUCOSE, | Neg | | Neg | N | glucose, | | | URN | | | | | urine, | | | | | | | | semiquanti | | | | | | | | tative | + + +--------+---+ +---+ + | | PROTEIN, | 2+ [...] + + + +------+---+ + | | HYAL CAST | 2-5 | /[LPF] | 0-2 | H | hyaline | | | UR | | | | | casts, | | | | | | | | urine | + + + + +------+---+ + | | BACTERIA | Many | | None | H | bacteria, | | | URN | | | | | urine | | | | | | | | microscopy | + + + + +------+---+ + | | EPI | Mod | [...] +------+---+ + + + | Lab Report: RENAL FUNCTION PANEL, HEPATIC FUNCTION PANEL | + + + +--------+-----+-------+---------+---+ + | | BILI | 0.1 | mg/dL | 0.0-0.3 | | bilirubin, | | | DIRECT | | | | | serum, | | | | | | | | direct | + +--------+-----+-------+---------+---+ + | | PO4 | 2.8 | [...] + +----+---+---+---+--------+ + + | Lab Report: HEMOGLOBIN | + + + +-----+------+------+ +---+ + | | HGB | 10.6 | g/dL | 11.5-15.0 | L | hemoglobin | | | | | | | | , blood | + +-----+------+------+ +---+ + + + | Lab Report: SODIUM, POTASSIUM, CREATININE | + + + + +----+ +------+---+ + | | ZZ-GE-UNK | 30 | [...] | | | specified | + + +----+ +------+---+ + + + | Rx Refill: eRx Request for CLOPIDOGREL 75MG TAB | + + + +--------+ +---+---+---+ + | | ESM_RR | [id number] | | | B | e-scripts | [...] | | | | | | | [id number] | | | | | | | | `[id number] | | | | | | | [...] +---+---+---+ + + + | Office Visit: Transfer [...] +--------+--------+---+---+---+ + + + | Lab Report: Glyco [...] +---+ + + + | Lab Report: Ferritin, Serum | + + + + +-----+-------+-------+---+ + | | FERRITIN | 226 | ng/mL | 8-252 | N | ferritin, | | | | | | | | serum | + + +-----+-------+-------+---+ + Plan of Care + + + + | Type | Date | Detail | + + + + | Appointment | 03:45 PM | David Cornejo MD FACE FACP, | | | | [address], [place], [address], | | | | | + + + + | Referral | | GI Consult | | | | Emeka Clark MD, [address] | | | | [address] [facility] [address], | | | | [place], [address] | | | | | + + + + | Referral | | GI Consult | | | | Emeka Clark MD, [address] | | | | [address] [facility] [address], | | | | [place], [address] | | | | | + + + + | Referral | | Nephrology Evaluation | | | | Anisa Reeves MD, | | | | [address] [facility] | | | [address], [place], [address] | | | | | | | | | + + + + | Referral | | Nephrology Evaluation | | | | MD Iraj Juarez, | | | | [address], | | | | [address], [place], [address] | | | | | | | | | + + + + | Referral | | Surgical Consult | | | | Jesus Long, [address] | | [address], | | | | [place], [address] | | | | | + + + + | Referral | | Surgical Consult | | | | Jesus Long, [address] | | | [address], | | | | [place], [address] | | | | | + + + + | Referral | | Endocrinology Consult | + + + + | Referral | | Podiatry Consult | | | | Kali Palacio, [address] | | | | [place], | | | | [place], [address] | | | | | + + + + | Referral | | Nephrology Evaluation | | | | MD Iraj Juarez, | | | | [address], | | | | [address], [place], [address] | | | | | | | | | + + + + | Referral | | Podiatry Consult | | | | Kali Palacio, [address] | | | | [place], | | | | [place], [address] | | | | | + + + + | Referral | | Nephrology Evaluation | | | | MD Iraj Juarez, | | | | [address], | | | | [address], [place], [place], [address] | | | | | | | | | + + + + | Referral | | Neurology Consult | | | | [facility] Phone #, | | | | [address] [facility] [address] | | | [address], [place], [address] | | | | | + + + + | Referral | | Neurology Consult | | | | [facility] Phone #, | | | | [address] [facility] | | | | [address], [place], [address] | | | | | + + + + | Referral | | MRA Head-WO Con | | | | Dian Atkins, [address] | | | [address], | | | | [place], [address] | | | | | + + + + | Referral | | MRA Head-WO Con | | | | Dian Aktins, [address] | | | | [address], | | | | [place], [address] | | | | | + + + + | Referral | | MRA Head-WWO Con | | | | Dian Atkins, [address] | | | | [address], | | | | [place], [address] | | | | | + + + + | Referral | | MRA Head-WWO Con | | | | Dian Atkins, [address] | | | | [address], | | | | [place], [address] | | | | | + + + + +---+ + | | Referral excluded from report: | +---+ + + + + + | Referral | | Physical Therapy Evaluation | | | | [facility], [address] | | | [address] | | | | [address], [place], [address] | | | | | | | | | + + + + | Referral | | Neurology Consult | | | | MD August Bourne, [address] | | | | [address] [place], | | | | [place], [address] | | | | | + + + + | Referral | | Neurology Consult | | | | Rogers Ozuna, [address] | | | | [address] [place], | | | | [place], [address] | | | | | + + + + | Referral | | Cardiology Consult | | | | MD Pelon Fay, | | | | [address] | | | | [address], [place], [address] | | | | | | | | | + + + + | Referral | | GI Consult | | | | [address] | | | | [address], [place], [address] | | | | | | | | | + + + + | Referral | | Physical Therapy Evaluation | | | | [facility], [address] | | | [address] | | | | [address], [place], [place], [address] | | | | | | | | | + + + + | Referral | | Diabetic Education - | | | | Individual | | | | [facility], | | | | [address], | | | | [place], [address] | | | | | + + + + | Referral | | GI Consult | | | | [address] | | | | [address], [place], [address] | | | | | | | | | + + + + | Referral | | US Soft Tissue Head/Neck | | | | Exam Dian | | | | Scheduling, [address] | | | | [address], [place], [place], | | | | [address] | | | | | + + + + | Referral | | Neurology Consult | | | | [facility] | | | | Claudia, [address], | | | | [place], [address] | | | | | + + + + | Referral | | VL Carotid-Cerebral Duplex | | | | Dian | | | | Milly, [address] | | | | [place], [place], | | | | [address] | | | | | + + + + | Referral | | Holter Monitor | | | | Dian Atkins, [address] | | | | [address], | | | | [place], [address] | | | | | + + [...] Microalb/Creat Ratio UR, | | | | [place] | + + + + | Pending [...] | + + + + + | CPT-12348 | UA Dipstick | | | + + + + + | CPT-82170 | Initial Psych | | | | | Evaluation | | | + + + + + | CPT-49136 | Debride Nail, 6 or | | | | | more [address] | | | + + + + [...] | + + + + + | CPT-81629 | Trim Skin Lesions | | | | | [address] | | | + + + + + | CPT-75341 | UA Dipstick | | | + + + + + | CPT-88182 | Debride Nail, 6 or | | | | | more 74769 | | | + + + + [...] | + + + + + | CPT-70289 | Debride Nail, 6 or | | | | | more 51878 | | | + + + + [...] | + + + + + | CPT-31243 | MRA Head-WWO Con | | | + + + + + +---+ + | | Order excluded from report: | +---+ + + + + + + | CPT-56056 | Physical Therapy | | | | | Evaluation | | | + + + + + | [id number] | [facility] Generic Patient | | | | | Encounter Service | | | | | (from patch) | | | + + + + + | [id number] | [Recorded for [facility]] | | | | | Documentation of | | | | | current medications | | | | | (procedure) | | | + + + + + | [id number] | [Recorded for [facility]] | | | | | Documentation of | | | | | current medications | | | | | (procedure) | | | + + + + + | [id number] | [Recorded for [facility]] | | | | | Documentation of | | | | | current medications | | | | | (procedure) | | | + + + + + | [id number] | [Recorded for [facility]] | | | | | Documentation of | | | | | current medications | | | | | (procedure) | | | + + + + + | FREE T4 97936 | T4 Free | | | + + + + + | T3 FREE 50209 | T3 Free | | | + + + + + | TSH 36093 | TSH | | | + + + + + | GLYCO HGB 41099 | HgbA1C | | | + + + + + | [id number] | [facility] Generic Patient | | | | | Encounter Service | | | | | (from patch) | | | + + + + + | [id number] | [Recorded for [facility]] | | | | | Documentation of | | | | | current medications | | | | | (procedure) | | | + + + + + | [id number] | [facility] Generic Patient | | | | | Encounter Service | | | | | (from patch) | | | + + + + + | CPT-21847 | EKG- tracing with | | | | | report (26224) | | | + + + + + | [id number] | [Recorded for [facility]] | | | | | Documentation of | | | | | current medications | | | | | (procedure) | | | + + + + + | [id number] | [facility] Generic Patient | | | | | Encounter Service | | | | | (from patch) | | | + + + + + | CPT-Troponin l | Troponin I | | | | 16627 | | | | + + + + + | [id number] | [Recorded for [facility]] | | | | | Documentation of | | | | | current medications | | | | | (procedure) | | | + + + + + | CPT-71266 | Physical Therapy | | | | | Evaluation | | | + + + + + | CPT-G8427 | Current Medications | | | | | Documented | | | + + + + + | [id number] | [Recorded for [facility]] | | | | | Documentation of | | | | | current medications | | | | | (procedure) | | | + + + + + | CPT-G8427 | Current Medications | | | | | Documented | | | + + + + + | [id number] | [Recorded for [facility]] | | | [...] + + + + | CHEM PROF 84868 | CMP (Comprehensive | | | | | Metabolic Panel) | | | + + + + + | GLYCO HGB 63048 | HgbA1C | | | + + + + + | CPT-Q2037 | Fluvirin | | | | | (Influenza) | | | | | Med/Atrio | | | + + + + + | RISK 59291 | Lipid Profile | | | + + + + + | VIT D HYDR 75964 | Vit D, 25 hydroxy | | | + + + + + | CYC CITRU 63475 | Cyclic | | | | | Citrullinated Pept | | | | | IgG | | | + + + + + | RA QUANT 07489 | Rheumatoid Factor | | | | | (quant) | | | + + + + + | TSH 67536 | TSH | | | + + + + + | IVANA 99262 | IVANA | | | + + + + + | GLYCO HGB 36427 | HgbA1C | | | + + + + + | CPT-07615 | EKG- tracing with | | | | | report (11117) | | | + + + + + | CPT-56590 | ANDRE | | | + + + + + | 03267 21745 | Holter Monitor 48H | | | | | Panel | | | + + + + + | 43488 86665 | Holter Monitor 72H | | | | | Panel | | | + + + + + | CPT-79450 | Barium Swallow MBS | | | | | with Speech | | | + + + + + | 43568 32908 | US Abdomen-Cmplt | | | | | and Pelvic-Lmtd | | | + + + + + | CPT-15942 | US Soft Tissue | | | | | Head/Neck Exam | | | + + + + + | CPT-92227 | Motor nerve testing | | | | | - each nerve | | | + + + + + | RISK 28629 | Lipid Profile | | | + + + + + | ESR 32118 | Sedimentation Rate | | | | | (ESR) | | | + + + + + | SPEP IF 01794 | SPEP with JESÚS if | | | | | indicated | | | + + + + + | B12+FOLATE MULTIPLE | B-12 - Folate | | | + + + + + | PFA 71415 | Platelet Function | | | | | Assay | | | + + + + + | 07389 | MRA Head-WO Con | | | + + + + + | 69032 | MR Head-WO Con | | | + + + + + | [id number] | VL Carotid-Cerebral | | | | | Duplex | | | + + + + + | CPT-[id number] | Holter Monitor | | | + + + + + | D DIMER 02373 | D-dimer (tyrese) | | | + + + + + | 92319 | CT Head-WWO Con | | | + + + + + | VIT D HYDR 70124 | Vit D, 25 hydroxy | | | + + + + + | TSH 59507 | TSH | | | + + + + + | B12+FOLATE MULTIPLE | B-12 - Folate | | | + + + + + | UA 04762 | Urinalysis | | | + + + + + | CHEM PROF 99971 | CMP (Comprehensive | | | | | Metabolic Panel) | | | + + + + + | CBC 83289 | CBC w/ Diff - w/ | | | | | platelets | | | + + + + + | GLYCO HGB 96237 | HgbA1C | | | + + + + + | TSH 38933 | TSH | | | + + + + + | VIT D HYDR 50455 | Vit D, 25 hydroxy | | [...] | 167.6 | [lb_av] | weight E&M - | [...]
--- OUTSIDE RECORDS SUMMARY | ~2019-03-25 | XMS | Continuity of Care Document ---
Demographics + + + | Address | [address] | | | [place] [address] | + + + | Home Phone | | + + + | Preferred Language | Unknown | + + + | Marital Status | Unknown | + + + | Voodoo Affiliation | Unknown | + + + | Race | Unknown | + + + | Ethnic Group | Unknown | + + + Author + + + | Author | [facility] | + + + | Organization | [facility] | + + + | Address | [address] | | | [place] [address] | + + + | Phone | Unavailable | + + + Support + + + + + | Name | Relationship | Address | Phone | + + + + + | Provider, ED | Caregiver | [address] | [place] | | | | [place] | | | | | [address] | | + + + + + | France Núñez MD | Caregiver | Emergency Room | | | | | [place] [address] | | + + + + + | Tiesha Nicolas | [facility] | [address] | | | MD | | [place] [address] | | + + + + + | DOLORES DIANA | Next Of Kin | [address] | | | | | [place] [address] | | + + + + + Care Team Providers + + + + | Care Apparel Designer Name | Role | Phone | + + + + | Tiesha Nicolas MD | Unavailable | | + + + + Insurance Providers + + + + + | Payer Name | Policy Number | Subscriber Name | Relationship | + + + + + | [employer] | [id number] | [place] | SELF | | PLAN | | | | + + + + + | MARY NOLEN | [id number] | JULI DIANA | SELF | | (SUPPLEMENT) | | | | + + + + + Chief Complaint and Reason for Visit + + + | Reason for Visit | AMB WEAKNESS | + + + Problems Active Medical [...] Current Home Medications + +------+-------+-------+ + + + + | Medicati | Dose | Units | Route | Directio | Days/Qty | Instruct | Start | | on | | | | ns | | ions | Date | + +------+-------+-------+ + + + + | Atorvast | 1 | TAB | PO | Daily | 30 | | | | atin | | | | | | | | | (Lipitor | | | | | | | | | ) 20 MG | | | | | | | | | TAB | | | | | | | | + +------+-------+-------+ + + + + | Cefpodox | 200 | MG | PO | Twice | 20 | | 07/16/16 | | naima | | | | Each Day | | | | | Proxetil | | | | | | | | | | | | | | | | | | (Vantin) | | | | | | | | | 200 MG | | | | | | | | | TAB | | | | | | | | + +------+-------+-------+ + + + + | Clonazep | 0.5 | MG | PO | PRN | | | | | am | | | | ANXIETY | | | | | (Klonopi | | | | | | | | | n) 0.5 | | | | | | | | | MG TAB | | | | | | | | + +------+-------+-------+ + + + + | Clopidog | 75 | MG | [...] | | | + +------+-------+-------+ + + + + | Exenatid | 5 | MCG | SC | Twice | | 5MCG BID | | | e | | | | Each Day | | | | | (KEHINDE) | | | | | | | | | 600 | | | | | | | | | MCG/2.4 | | | | | | | | | ML | | | | | | | | | PENSYR | | | | | | | | + +------+-------+-------+ + + + + | Furosemi | 80 | MG | PO | Daily | | | | | de | | | | | | | | | (Lasix) | | | | | | | | | 80 MG | | | | | | | | | TAB | | | | | | | | + +------+-------+-------+ + + + + | Gabapent | 2 | CAP | [...] | | | + +------+-------+-------+ + + + + | INSULIN | | | | | [...] | | | + +------+-------+-------+ + + + + | Insulin | 56 | UNITS | SUBQ | Daily | 1 | | | | Glargine | | | | | | | | | ,Hum.rec | | | | | | | | | .anlog | | | | | | | | | (Lantus) | | | | | | | | | 100 | | | | | | | | | UNIT/ML | | | | | | | | | VIAL | | | | | | | | + +------+-------+-------+ + + + + | Meclizin | 25 | MG | PO | Every 6 | 20 | | 12/06/15 | | e HCL | | | | Hours | | | | | (Antiver | | | | PRN | | | | | t) 25 MG | | | | Dizzines | | | | | TABLET | | | | s | | | | + +------+-------+-------+ + + + + | Meclizin | 25 | MG | PO | Q8H For | 20 | | 07/29/16 | | e HCL | | | | dizzines | | | | | (Motion | | | | s | | | | | Sickness | | | | | | | | | ) 25 MG | | | | | | | | | TABLET | | | | | | | | + +------+-------+-------+ + + + + | Ondanset | 1 | TAB | SL | Every 8 | 10 | | / | | sindy | | | | Hours | | | | | (Zofran | | | | PRN | | | | | Odt) 4 | | | | Nausea | | | | | MG | | | | | | | | | TAB.RAPD | | | | | | | | | IS | | | | | | | | + +------+-------+-------+ + + + + | Potassiu | 10 | MEQ | PO | | | 2-3 TABS | | | m | | | | | | EVERY | | | Chloride | | | | | | WEEK | | | 10 MEQ | | | | | | | | | CAPCR | | | | | | | | + +------+-------+-------+ + + + + | Pregabal | 100 | MG | PO | Three | | | | | in | | | | Times a | | | | | (Lyrica) | | | | Day | | | | | 100 MG | | | | | | | | | CAP | | | | | | | | + +------+-------+-------+ + + + + | Valsarta | 160 | MG | PO | Daily | | | | | n | | | | | | | | | (Diovan) | | | | | | | | | 160 MG | | | | | | | | | TABLET | | | | | | | | + +------+-------+-------+ + + + + Past Home Medications + + + + [...] | + + + + + | [place], Disposable | | Unknown | Discontinued | [...] Mg | Nausea | | | | Tabdaquan | | | | | Tabdaquan, 1 Tab | | | | | Sl | | | | + + + + + | Ondansetron (Zofran | Every 8 Hours as | 09/14/14 | Discontinued | | Odt) 8 Mg | Needed PRN NAUSEA | | | | Tabdaquan | | | | | Tab.elizabeth, 1 [...] | MENTAL HEALTH PROBLEMS/ | No | 04/30/15 | + + + + + + + + + | Query | Response | Start Date | Stop Date | + + + + + | Smoking status/ | Never Smoker | | | + + + + + Hospital Discharge Instructions No hospital discharge instructions. Plan of Care + + + | Discharge Date | 07/29/16 | + + + | Disposition | HOME | + + + | Condition at Discharge | Fair | + + + | Instructions/Education Provided | Weakness, [id number] | + + + | Forms Provided | [facility]CHIT[employer]VE CONSENT | + + + | Prescriptions | See Medications Section | + + + | Referrals | Pilot,Tiesha H MD - | + + + | Additional Instructions/Education | Keep your appt on Saturday with your primary | | | care provider Meclizine for dizziness | | | return if you get worse | | | | | |return if you get worse | + + + Functional Status No functional status results. Allergies, Adverse Reactions, Alerts + +---------+ + +--------+ + | Allergen | Type | Severity | Reaction | Status | Last Updated | + +---------+ + +--------+ + | hydrocodone | Allergy | Mild | HALLUCINATIO | Active | 07/29/16 | | bit | | | NS | | | + +---------+ + +--------+ + | morphine | Allergy | Mild | HALLUCINATIO | Active | 07/29/16 | | | | | N | | | + +---------+ + +--------+ + Immunizations No Known History of Immunizations. Vital Signs + + + + | Vital Reading | Collection Date/Time | Result | + + + + | Blood Pressure | 07/29/16 4:14am | 128/58 | + + + + | Blood Pressure Source | 05/01/15 10:30am | Left Arm | + + + + | Patient Temperature | 07/29/16 0:36am | 95.5 | + + + + | Temperature Source | 07/29/16 0:36am | Temporal | + + + + | Respiratory Rate | 07/29/16 4:14am | 16 | + + + + | Pulse Rate | 07/29/16 4:14am | 90 | + + + + | Bedside Pulse Oximetry | 07/29/16 4:14am | 97 | + + + + | Height | 07/29/16 0:36am | 5 ft 1 in | + + + + | Weight | 07/29/16 0:36am | 74.84 kg | + + + + | Weight | 07/29/16 0:36am | 165 lb | + + + + | Body Mass Index | 07/29/16 0:36am | 31.2 | + + + + Results Laboratory Results + +---------+ +-------+ + + + + | Test | Result | Units | Flags | Referenc | Collecti | Result | Comments | | Name | | | | e | on | Date/Ernesto | | | | | | | | Date/Ernesto | e | | | | | | | | e | | | + +---------+ +-------+ + + + + | Urine | Unknown | | | | 07/29/16 | 07/29/16 | | | Source | | | | | 3:06am | 3:30am | | + +---------+ +-------+ + + + + | Urine | Yellow | | | P-Yellow | 07/29/16 | 07/29/16 | | | Color | | | | | 3:06am | 3:30am | | + +---------+ +-------+ + + + + | Urine | Clear | | | Clear | 07/29/16 | 07/29/16 | | | Appearan | | | | | 3:06am | 3:30am | | | ce | | | | | | | | + +---------+ +-------+ + + + + | Urine | 1.015 | | | 1.003-1. | 07/29/16 | 07/29/16 | | | Specific | | | | 022 | 3:06am | 3:30am | | | [place] | | | | | | | | + +---------+ +-------+ + + + + | Urine pH | 5.0 | | | 5.0-8.0 | 07/29/16 | 07/29/16 | | | | | | | | 3:06am | 3:30am | | + +---------+ +-------+ + + + + | Urine | 2+ | | * | Neg | 07/29/16 | 07/29/16 | | | Leukocyt | | | | | 3:06am | 3:30am | | | e | | | | | | | | | Esterase | | | | | | | | + +---------+ +-------+ + + + + | Urine | Neg | | | Neg | 07/29/16 | 07/29/16 | | | Nitrite | | | | | 3:06am | 3:30am | | + +---------+ +-------+ + + + + | Urine | 2+ | | * | Neg | 07/29/16 | 17 | | | Protein | | | | | 3:06am | 3:30am | | + +---------+ +-------+ + + + + | Urine | Neg | | | Neg | 07/29/16 | 17 | | | Glucose | | | | | 3:06am | 3:30am | | + +---------+ +-------+ + + + + | Urine | Neg | | | Neg | 07/29/16 | 07/29/16 | | | Ketones | | | | | 3:06am | 3:30am | | + +---------+ +-------+ + + + + | Urine | NORM | | | Normal | 07/29/16 | 07/29/16 | | | Urobilin | | | | | 3:06am | 3:30am | | | ogen | | | | | | | | + +---------+ +-------+ + + + + | Urine | Neg | | | Neg | 07/29/16 | 07/29/16 | | | Bilirubi | | | | | 3:06am | 3:30am | | | n | | | | | | | | + +---------+ +-------+ + + + + | Urine | 2+ | | * | Neg | 07/29/16 | 07/29/16 | | | Blood | | | | | 3:06am | 3:30am | | + +---------+ +-------+ + + + + | Urine | 2-5 | /hpf | | 0-5 | 07/29/16 | 07/29/16 | | | WBC | | | | | 3:06am | 3:31am | | + +---------+ +-------+ + + + + | Urine | 0-2 | /hpf | | 0-2 | 07/29/16 | 07/29/16 | | | RBC | | | | | 3:06am | 3:31am | | + +---------+ +-------+ + + + + | Urine | Mod | /hpf | * | Few | 07/29/16 | 07/29/16 | | | Squamous | | | | | 3:06am | 3:31am | | | | | | | | | | | | Epitheli | | | | | | | | | al Cells | | | | | | | | + +---------+ +-------+ + + + + | Urine | Many | /hpf | * | None | 07/29/16 | 07/29/16 | | | Bacteria | | | | | 3:06am | 3:31am | | + +---------+ +-------+ + + + + | Urine | Yes | | * | No | 07/29/16 | 07/29/16 | | | Culture | | | | | 3:06am | 3:30am | | | Indicate | | | | | | | | | d | | | | | | | | + +---------+ +-------+ + + + + | Urine | 2-5 | /lpf | * | 0-2 | 07/29/16 | 07/29/16 | | | Hyaline | | | | | 3:06am | 3:31am | | | Casts | | | | | | | | + +---------+ +-------+ + + + + | White | 9.11 | K/mm3 | | 4.00-11. | 07/29/16 | 07/29/16 | | | Blood | | | | 30 | 1:35am | 1:59am | | | Count | | | | | | | | + +---------+ +-------+ + + + + | Red | 4.14 | M/mm3 | | 3.80-5.2 | 07/29/16 | 07/29/16 | | | Blood | | | | 0 | 1:35am | 1:59am | | | Count | | | | | | | | + +---------+ +-------+ + + + + | Hemoglob | 12.3 | g/dL | | 11.5-16. | 07/29/16 | 07/29/16 | | | in | | | | 0 | 1:35am | 1:59am | | + +---------+ +-------+ + + + + | Hematocr | 36.4 | % | | 33.0-51. | 07/29/16 | 07/29/16 | | | it | | | | 0 | 1:35am | 1:59am | | + +---------+ +-------+ + + + + | Mean | 88 | fL | # | 80-100 | 07/29/16 | 07/29/16 | | | Corpuscu | | | | | 1:35am | 1:59am | | | lar | | | | | | | | | Volume | | | | | | | | + +---------+ +-------+ + + + + | Mean | 29.7 | pg | | 26.0-34. | 07/29/16 | 07/29/16 | | | Corpuscu | | | | 0 | 1:35am | 1:59am | | | lar | | | | | | | | | Hemoglob | | | | | | | | | in | | | | | | | | + +---------+ +-------+ + + + + | Mean | 33.8 | g/dL | | 31.5-36. | 07/29/16 | 07/29/16 | | | Corpuscu | | | | 5 | 1:35am | 1:59am | | | lar | | | | | | | | | Hemoglob | | | | | | | | | in | | | | | | | | | Concent | | | | | | | | + +---------+ +-------+ + + + + | RDW | 42.9 | fL | | 35.1-46. | 07/29/16 | 07/29/16 | | | Standard | | | | 3 | 1:35am | 1:59am | | | | | | | | | | | | Deviatio | | | | | | | | | n | | | | | | | | + +---------+ +-------+ + + + + | RDW | 13.5 | % | | 11.7-14. | 07/29/16 | 07/29/16 | | | Coeffici | | | | 2 | 1:35am | 1:59am | | | ent of | | | | | | | | | Variatio | | | | | | | | | n | | | | | | | | + +---------+ +-------+ + + + + | Platelet | 192 | K/mm3 | | 150-400 | 07/29/16 | 07/29/16 | | | Count | | | | | 1:35am | 1:59am | | + +---------+ +-------+ + + + + | Mean | 12.2 | fL | | 9.1-12.4 | 07/29/16 | 07/29/16 | | | Platelet | | | | | 1:35am | 1:59am | | | Volume | | | | | | | | + +---------+ +-------+ + + + + | Differen | Auto | | | | 07/29/16 | 07/29/16 | | | tial | | | | | 1:35am | 1:59am | | | Method | | | | | | | | + +---------+ +-------+ + + + + | Neutroph | 75 | % | H | 41-73 | 07/29/16 | 07/29/16 | | | ils (%) | | | | | 1:35am | 1:59am | | | (Auto) | | | | | | | | + +---------+ +-------+ + + + + | Lymphocy | 17 | % | L | 21-46 | 07/29/16 | 07/29/16 | | | serge (%) | | | | | 1:35am | 1:59am | | | (Auto) | | | | | | | | + +---------+ +-------+ + + + + | Monocyte | 7 | % | | 4-13 | 07/29/16 | 07/29/16 | | | s (%) | | | | | 1:35am | 1:59am | | | (Auto) | | | | | | | | + +---------+ +-------+ + + + + | Eosinoph | 1 | % | | 0-6 | 07/29/16 | 07/29/16 | | | ils (%) | | | | | 1:35am | 1:59am | | | (Auto) | | | | | | | | + +---------+ +-------+ + + + + | Basophil | 0 | % | | 0-2 | 07/29/16 | 07/29/16 | | | s (%) | | | | | 1:35am | 1:59am | | | (Auto) | | | | | | | | + +---------+ +-------+ + + + + | Immature | 0 | % | | 0-1 | 07/29/16 | 07/29/16 | | | | | | | | 1:35am | 1:59am | | | Granuloc | | | | | | | | | yte % | | | | | | | | | (Auto) | | | | | | | | + +---------+ +-------+ + + + + | Nucleate | 0.0 | /100 WBC | | 0.0-0.2 | 07/29/16 | 07/29/16 | | | d Red | | | | | 1:35am | 1:59am | | | Blood | | | | | | | | | Cells % | | | | | | | | + +---------+ +-------+ + + + + | Absolute | 6.85 | K/mm3 | | 1.96-9.1 | 07/29/16 | 07/29/16 | | | | | | | 5 | 1:35am | 1:59am | | | Neutroph | | | | | | | | | ils | | | | | | | | | (auto) | | | | | | | | + +---------+ +-------+ + + + + | Absolute | 1.51 | K/mm3 | | 0.84-5.2 | 07/29/16 | 07/29/16 | | | | | | | 0 | 1:35am | 1:59am | | | Lymphocy | | | | | | | | | serge | | | | | | | | | (auto) | | | | | | | | + +---------+ +-------+ + + + + | Absolute | 0.66 | K/mm3 | | 0.16-1.4 | 07/29/16 | 07/29/16 | | | | | | | 7 | 1:35am | 1:59am | | | Monocyte | | | | | | | | | s (auto) | | | | | | | | + +---------+ +-------+ + + + + | Absolute | 0.06 | K/mm3 | | 0.00-0.6 | 07/29/16 | 07/29/16 | | | | | | | 8 | 1:35am | 1:59am | | | Eosinoph | | | | | | | | | ils | | | | | | | | | (auto) | | | | | | | | + +---------+ +-------+ + + + + | Absolute | 0.02 | K/mm3 | | 0.00-0.2 | 07/29/16 | 07/29/16 | | | | | | | 3 | 1:35am | 1:59am | | | Basophil | | | | | | | | | s (auto) | | | | | | | | + +---------+ +-------+ + + + + | Absolute | 0.01 | K/mm3 | | 0.00-0.1 | 07/29/16 | 07/29/16 | | | | | | | 0 | 1:35am | 1:59am | | | Immature | | | | | | | | | | | | | | | | | | Granuloc | | | | | | | | | yte | | | | | | | | | (auto | | | | | | | | + +---------+ +-------+ + + + + | Nucleate | 0.00 | K/mm3 | | 0.00-0.0 | 07/29/16 | 07/29/16 | | | d RBC | | | | 2 | 1:35am | 1:59am | | | Absolute | | | | | | | | | Count | | | | | | | | | (auto) | | | | | | | | + +---------+ +-------+ + + + + | Prothrom | 10.5 | Sec | | 9.7-11.5 | 07/29/16 | 07/29/16 | | | bin Time | | | | | 1:35am | 2:10am | | + +---------+ +-------+ + + + + | INR | 1.01 | | | | 07/29/16 | 07/29/16 | RECOMMEN | | Internat | | | | | 1:35am | 2:10am | DED | | ional | | [...] | | | | . | + +---------+ +-------+ + + + + | Sodium | 142 | mmol/L | | 136-145 | 07/29/16 | 07/29/16 | | | Level | | | | | 1:35am | 2:28am | | + +---------+ +-------+ + + + + | Potassiu | 3.8 | mmol/L | | 3.5-5.5 | 07/29/16 | 07/29/16 | | | m Level | | | | | 1:35am | 2:28am | | + +---------+ +-------+ + + + + | Chloride | 102 | mmol/L | | 98-108 | 07/29/16 | 07/29/16 | | | Level | | | | | 1:35am | 2:28am | | + +---------+ +-------+ + + + + | Carbon | 28 | mmol/L | | 21-32 | 07/29/16 | 07/29/16 | | | Dioxide | | | | | 1:35am | 2:28am | | | Level | | | | | | | | + +---------+ +-------+ + + + + | Anion | 12 | mmol/L | | 6-16 | 07/29/16 | 07/29/16 | | | Gap | | | | | 1:35am | 2:28am | | + +---------+ +-------+ + + + + | Glucose | 169 | mg/dL | H | 70-99 | 07/29/16 | 07/29/16 | | | Level | | | | | 1:35am | 2:28am | | + +---------+ +-------+ + + + + | Blood | 43 | mg/dL | H | 8-24 | 07/29/16 | 07/29/16 | | | Urea | | | | | 1:35am | 2:28am | | | Nitrogen | | | | | | | | + +---------+ +-------+ + + + + | Creatini | 2.24 | mg/dL | H | 0.40-1.0 | 07/29/16 | 07/29/16 | | | ne | | | | 0 | 1:35am | 2:28am | | + +---------+ +-------+ + + + + | BUN/Crea | 19.2 | % | | 12.0-20. | 07/29/16 | 07/29/16 | | | tinine | | | | 0 | 1:35am | 2:28am | | | Ratio | | | | | | | | + +---------+ +-------+ + + + + | Glomerul | 23 | | L | 60- | 07/29/16 | 07/29/16 | Non-Afri | | ar | | | | | 1:35am | 2:28am | can | | Filtrati | | | | | | | [place] | | on Rate | | | | | | | GFR | | Calc | | | | | | | CalcFor | | | | | | | | | | | | | | | | | | [place] | | | | | | | [...] | | | | .73m^2 | + +---------+ +-------+ + + + + | Calcium | 9.8 | mg/dL | | 8.5-10.1 | 07/29/16 | 07/29/16 | | | Level | | | | | 1:35am | 2:28am | | + +---------+ +-------+ + + + + | Total | 7.7 | g/dL | | 6.4-8.2 | 07/29/16 | 07/29/16 | | | Protein | | | | | 1:35am | 2:28am | | + +---------+ +-------+ + + + + | Albumin | 4.0 | g/dL | | 3.4-5.0 | 07/29/16 | 07/29/16 | | | | | | | | 1:35am | 2:28am | | + +---------+ +-------+ + + + + | Globulin | 3.7 | g/dL | | 2.2-4.0 | 07/29/16 | 07/29/16 | | | | | | | | 1:35am | 2:28am | | + +---------+ +-------+ + + + + | Albumin/ | 1.1 | | | 0.8-1.8 | 07/29/16 | 07/29/16 | | | Globulin | | | | | 1:35am | 2:28am | | | Ratio | | | | | | | | + +---------+ +-------+ + + + + | Total | 0.5 | mg/dL | | 0.1-1.0 | 07/29/16 | 07/29/16 | | | Bilirubi | | | | | 1:35am | 2:28am | | | n | | | | | | | | + +---------+ +-------+ + + + + | Alkaline | 88 | U/L | | 50-136 | 07/29/16 | 07/29/16 | | | | | | | | 1:35am | 2:28am | | | Phosphat | | | | | | | | | ase | | | | | | | | + +---------+ +-------+ + + + + | Aspartat | 51 | U/L | H | 12-37 | 07/29/16 | 07/29/16 | | | e Amino | | | | | 1:35am | 2:28am | | | Transf | | | | | | | | | (AST/SGO | | | | | | | | | T) | | | | | | | | + +---------+ +-------+ + + + + | Alanine | 46 | U/L | | 12-78 | 07/29/16 | 07/29/16 | | | Aminotra | | | | | 1:35am | 2:28am | | | nsferase | | | | | | | | | | | | | | | | | | (ALT/SGP | | | | | | | | | T) | | | | | | | | + +---------+ +-------+ + + + + | Troponin | <0.015 | ng/mL | | 0.000-0. | 07/29/16 | 07/29/16 | | | | | | | 040 | 1:35am | 2:28am | | + +---------+ +-------+ + + + + | B-Type | 11 | pg/mL | | 0-100 | 07/29/16 | 07/29/16 | | | Natriure | | | | | 1:35am | 2:35am | | | tic | | | | | | | | | Peptide | | | | | | | | + +---------+ +-------+ + + + + | Lipase | 299 | U/L | | 73-393 | 07/29/16 | 07/29/16 | | | | | | | | 1:35am | 2:28am | | + +---------+ +-------+ + + + + | White | 4.86 | K/mm3 | | 4.00-11. | 07/20/16 | 07/21/16 | | | Blood | | | | 30 | 11:53pm | 0:06am | | | Count | | | | | | | | + +---------+ +-------+ + + + + | Red | 3.72 | M/mm3 | L | 3.80-5.2 | 07/20/16 | 07/21/16 | | | Blood | | | | 0 | 11:53pm | 0:06am | | | Count | | | | | | | | + +---------+ +-------+ + + + + | Hemoglob | 10.6 | g/dL | L | 11.5-16. | 07/20/16 | 07/21/16 | | | in | | | | 0 | 11:53pm | 0:06am | | + +---------+ +-------+ + + + + | Hematocr | 31.6 | % | L | 33.0-51. | 07/20/16 | 07/21/16 | | | it | | | | 0 | 11:53pm | 0:06am | | + +---------+ +-------+ + + + + | Mean | 85 | fL | | 80-100 | 07/20/16 | 07/21/16 | | | Corpuscu | | | | | 11:53pm | 0:06am | | | lar | | | | | | | | | Volume | | | | | | | | + +---------+ +-------+ + + + + | Mean | 28.5 | pg | | 26.0-34. | 07/20/16 | 07/21/16 | | | Corpuscu | | | | 0 | 11:53pm | 0:06am | | | lar | | | | | | | | | Hemoglob | | | | | | | | | in | | | | | | | | + +---------+ +-------+ + + + + | Mean | 33.5 | g/dL | | 31.5-36. | 07/20/16 | 07/21/16 | | | Corpuscu | | | | 5 | 11:53pm | 0:06am | | | lar | | | | | | | | | Hemoglob | | | | | | | | | in | | | | | | | | | Concent | | | | | | | | + +---------+ +-------+ + + + + | RDW | 39.9 | fL | | 35.1-46. | 07/20/16 | 07/21/16 | | | Standard | | | | 3 | 11:53pm | 0:06am | | | | | | | | | | | | Deviatio | | | | | | | | | n | | | | | | | | + +---------+ +-------+ + + + + | RDW | 13.2 | % | | 11.7-14. | 07/20/16 | 07/21/16 | | | Coeffici | | | | 2 | 11:53pm | 0:06am | | | ent of | | | | | | | | | Variatio | | | | | | | | | n | | | | | | | | + +---------+ +-------+ + + + + | Platelet | 131 | K/mm3 | L | 150-400 | 07/20/16 | 07/21/16 | | | Count | | | | | 11:53pm | 0:06am | | + +---------+ +-------+ + + + + | Mean | 11.9 | fL | | 9.1-12.4 | 07/20/16 | 07/21/16 | | | Platelet | | | | | 11:53pm | 0:06am | | | Volume | | | | | | | | + +---------+ +-------+ + + + + | Differen | Auto | | | | 07/20/16 | 07/21/16 | | | tial | | | | | 11:53pm | 0:07am | | | Method | | | | | | | | + +---------+ +-------+ + + + + | Neutroph | 60 | % | | 41-73 | 07/20/16 | 07/21/16 | | | ils (%) | | | | | 11:53pm | 0:07am | | | (Auto) | | | | | | | | + +---------+ +-------+ + + + + | Lymphocy | 29 | % | | 21-46 | 07/20/16 | 07/21/16 | | | serge (%) | | | | | 11:53pm | 0:07am | | | (Auto) | | | | | | | | + +---------+ +-------+ + + + + | Monocyte | 9 | % | | 4-13 | 07/20/16 | 07/21/16 | | | s (%) | | | | | 11:53pm | 0:07am | | | (Auto) | | | | | | | | + +---------+ +-------+ + + + + | Eosinoph | 2 | % | | 0-6 | 07/20/16 | 07/21/16 | | | ils (%) | | | | | 11:53pm | 0:07am | | | (Auto) | | | | | | | | + +---------+ +-------+ + + + + | Basophil | 0 | % | | 0-2 | 07/20/16 | 07/21/16 | | | s (%) | | | | | 11:53pm | 0:07am | | | (Auto) | | | | | | | | + +---------+ +-------+ + + + + | Immature | 0 | % | | 0-1 | 07/20/16 | 07/21/16 | | | | | | | | 11:53pm | 0:07am | | | Granuloc | | | | | | | | | yte % | | | | | | | | | (Auto) | | | | | | | | + +---------+ +-------+ + + + + | Nucleate | 0.0 | /100 WBC | | 0.0-0.2 | 07/20/16 | 07/21/16 | | | d Red | | | | | 11:53pm | 0:06am | | | Blood | | | | | | | | | Cells % | | | | | | | | + +---------+ +-------+ + + + + | Absolute | 2.91 | K/mm3 | | 1.96-9.1 | 07/20/16 | 07/21/16 | | | | | | | 5 | 11:53pm | 0:07am | | | Neutroph | | | | | | | | | ils | | | | | | | | | (auto) | | | | | | | | + +---------+ +-------+ + + + + | Absolute | 1.43 | K/mm3 | | 0.84-5.2 | 07/20/16 | 07/21/16 | | | | | | | 0 | 11:53pm | 0:07am | | | Lymphocy | | | | | | | | | serge | | | | | | | | | (auto) | | | | | | | | + +---------+ +-------+ + + + + | Absolute | 0.42 | K/mm3 | | 0.16-1.4 | 07/20/16 | 07/21/16 | | | | | | | 7 | 11:53pm | 0:07am | | | Monocyte | | | | | | | | | s (auto) | | | | | | | | + +---------+ +-------+ + + + + | Absolute | 0.08 | K/mm3 | | 0.00-0.6 | 07/20/16 | 07/21/16 | | | | | | | 8 | 11:53pm | 0:07am | | | Eosinoph | | | | | | | | | ils | | | | | | | | | (auto) | | | | | | | | + +---------+ +-------+ + + + + | Absolute | 0.02 | K/mm3 | | 0.00-0.2 | 07/20/16 | 07/21/16 | | | | | | | 3 | 11:53pm | 0:07am | | | Basophil | | | | | | | | | s (auto) | | | | | | | | + +---------+ +-------+ + + + + | Absolute | 0.00 | K/mm3 | | 0.00-0.1 | 07/20/16 | 07/21/16 | | | | | | | 0 | 11:53pm | 0:07am | | | Immature | | | | | | | | | | | | | | | | | | Granuloc | | | | | | | | | yte | | | | | | | | | (auto | | | | | | | | + +---------+ +-------+ + + + + | Nucleate | 0.00 | K/mm3 | | 0.00-0.0 | 07/20/16 | 07/21/16 | | | d RBC | | | | 2 | 11:53pm | 0:06am | | | Absolute | | | | | | | | | Count | | | | | | | | | (auto) | | | | | | | | + +---------+ +-------+ + + + + | Sodium | 144 | mmol/L | | 136-145 | 07/20/16 | 07/21/16 | | | Level | | | | | 11:53pm | 0:38am | | + +---------+ +-------+ + + + + | Potassiu | 4.3 | mmol/L | | 3.5-5.5 | 07/20/16 | 07/21/16 | | | m Level | | | | | 11:53pm | 0:38am | | + +---------+ +-------+ + + + + | Chloride | 113 | mmol/L | H | 98-108 | 07/20/16 | 07/21/16 | | | Level | | | | | 11:53pm | 0:38am | | + +---------+ +-------+ + + + + | Carbon | 24 | mmol/L | | 21-32 | 07/20/16 | 07/21/16 | | | Dioxide | | | | | 11:53pm | 0:38am | | | Level | | | | | | | | + +---------+ +-------+ + + + + | Anion | 7 | mmol/L | | 6-16 | 07/20/16 | 07/21/16 | | | Gap | | | | | 11:53pm | 0:38am | | + +---------+ +-------+ + + + + | Glucose | 246 | mg/dL | H | 70-99 | 07/20/16 | 07/21/16 | | | Level | | | | | 11:53pm | 0:38am | | + +---------+ +-------+ + + + + | Blood | 21 | mg/dL | | 8-24 | 07/20/16 | 07/21/16 | | | Urea | | | | | 11:53pm | 0:38am | | | Nitrogen | | | | | | | | + +---------+ +-------+ + + + + | Creatini | 1.80 | mg/dL | H | 0.40-1.0 | 07/20/16 | 07/21/16 | | | ne | | | | 0 | 11:53pm | 0:38am | | + +---------+ +-------+ + + + + | BUN/Crea | 11.7 | % | L | 12.0-20. | 07/20/16 | 07/21/16 | | | tinine | | | | 0 | 11:53pm | 0:38am | | | Ratio | | | | | | | | + +---------+ +-------+ + + + + | Glomerul | 29 | | L | 60- | 07/20/16 | 07/21/16 | Non-Afri | | ar | | | | | 11:53pm | 0:38am | can | | Filtrati | | | | | | | [place] | | on Rate | | | | | | | GFR | | Calc | | | | | | | CalcFor | | | | | | | | | | | | | | | | | | [place] | | | | | | | [...] | | | | .73m^2 | + +---------+ +-------+ + + + + | Calcium | 7.9 | mg/dL | L | 8.5-10.1 | 07/20/16 | 07/21/16 | | | Level | | | | | 11:53pm | 0:38am | | + +---------+ +-------+ + + + + | Total | 6.3 | g/dL | L | 6.4-8.2 | 07/20/16 | 07/21/16 | | | Protein | | | | | 11:53pm | 0:38am | | + +---------+ +-------+ + + + + | Albumin | 3.1 | g/dL | L | 3.4-5.0 | 07/20/16 | 07/21/16 | | | | | | | | 11:53pm | 0:38am | | + +---------+ +-------+ + + + + | Globulin | 3.2 | g/dL | | 2.2-4.0 | 07/20/16 | 07/21/16 | | | | | | | | 11:53pm | 0:38am | | + +---------+ +-------+ + + + + | Albumin/ | 1.0 | | | 0.8-1.8 | 07/20/16 | 07/21/16 | | | Globulin | | | | | 11:53pm | 0:38am | | | Ratio | | | | | | | | + +---------+ +-------+ + + + + | Total | 0.3 | mg/dL | | 0.1-1.0 | 07/20/16 | 07/21/16 | | | Bilirubi | | | | | 11:53pm | 0:38am | | | n | | | | | | | | + +---------+ +-------+ + + + + | Alkaline | 74 | U/L | | 50-136 | 07/20/16 | 07/21/16 | | | | | | | | 11:53pm | 0:38am | | | Phosphat | | | | | | | | | ase | | | | | | | | + +---------+ +-------+ + + + + | Aspartat | 68 | U/L | H | 12-37 | 07/20/16 | 07/21/16 | | | e Amino | | | | | 11:53pm | 0:38am | | | Transf | | | | | | | | | (AST/SGO | | | | | | | | | T) | | | | | | | | + +---------+ +-------+ + + + + | Alanine | 51 | U/L | | 12-78 | 07/20/16 | 07/21/16 | | | Aminotra | | | | | 11:53pm | 0:38am | | | nsferase | | | | | | | | | | | | | | | | | | (ALT/SGP | | | | | | | | | T) | | | | | | | | + +---------+ +-------+ + + + + | Troponin | <0.015 | ng/mL | | 0.000-0. | 07/20/16 | 07/21/16 | | | | | | | 040 | 11:53pm | 0:38am | | + +---------+ +-------+ + + + + | White | 5.00 | K/mm3 | | 4.00-11. | 07/19/16 | 07/19/16 | | | Blood | | | | 30 | 1:52pm | 2:04pm | | | Count | | | | | | | | + +---------+ +-------+ + + + + | Red | 4.25 | M/mm3 | | 3.80-5.2 | 07/19/16 | 07/19/16 | | | Blood | | | | 0 | 1:52pm | 2:04pm | | | Count | | | | | | | | + +---------+ +-------+ + + + + | Hemoglob | 12.2 | g/dL | | 11.5-16. | 07/19/16 | 07/19/16 | | | in | | | | 0 | 1:52pm | 2:04pm | | + +---------+ +-------+ + + + + | Hematocr | 35.8 | % | | 33.0-51. | 07/19/16 | 07/19/16 | | | it | | | | 0 | 1:52pm | 2:04pm | | + +---------+ +-------+ + + + + | Mean | 84 | fL | | 80-100 | 07/19/16 | 07/19/16 | | | Corpuscu | | | | | 1:52pm | 2:04pm | | | lar | | | | | | | | | Volume | | | | | | | | + +---------+ +-------+ + + + + | Mean | 28.7 | pg | | 26.0-34. | 07/19/16 | 07/19/16 | | | Corpuscu | | | | 0 | 1:52pm | 2:04pm | | | lar | | | | | | | | | Hemoglob | | | | | | | | | in | | | | | | | | + +---------+ +-------+ + + + + | Mean | 34.1 | g/dL | | 31.5-36. | 07/19/16 | 07/19/16 | | | Corpuscu | | | | 5 | 1:52pm | 2:04pm | | | lar | | | | | | | | | Hemoglob | | | | | | | | | in | | | | | | | | | Concent | | | | | | | | + +---------+ +-------+ + + + + | RDW | 38.5 | fL | | 35.1-46. | 07/19/16 | 07/19/16 | | | Standard | | | | 3 | 1:52pm | 2:04pm | | | | | | | | | | | | Deviatio | | | | | | | | | n | | | | | | | | + +---------+ +-------+ + + + + | RDW | 12.8 | % | | 11.7-14. | 07/19/16 | 07/19/16 | | | Coeffici | | | | 2 | 1:52pm | 2:04pm | | | ent of | | | | | | | | | Variatio | | | | | | | | | n | | | | | | | | + +---------+ +-------+ + + + + | Platelet | 150 | K/mm3 | | 150-400 | 07/19/16 | 07/19/16 | | | Count | | | | | 1:52pm | 2:04pm | | + +---------+ +-------+ + + + + | Mean | 12.2 | fL | | 9.1-12.4 | 07/19/16 | 07/19/16 | | | Platelet | | | | | 1:52pm | 2:04pm | | | Volume | | | | | | | | + +---------+ +-------+ + + + + | Differen | Auto | | | | 07/19/16 | 07/19/16 | | | tial | | | | | 1:52pm | 2:04pm | | | Method | | | | | | | | + +---------+ +-------+ + + + + | Neutroph | 66 | % | | 41-73 | 07/19/16 | 07/19/16 | | | ils (%) | | | | | 1:52pm | 2:04pm | | | (Auto) | | | | | | | | + +---------+ +-------+ + + + + | Lymphocy | 26 | % | | 21-46 | 07/19/16 | 07/19/16 | | | serge (%) | | | | | 1:52pm | 2:04pm | | | (Auto) | | | | | | | | + +---------+ +-------+ + + + + | Monocyte | 5 | % | | 4-13 | 07/19/16 | 07/19/16 | | | s (%) | | | | | 1:52pm | 2:04pm | | | (Auto) | | | | | | | | + +---------+ +-------+ + + + + | Eosinoph | 2 | % | | 0-6 | 07/19/16 | 07/19/16 | | | ils (%) | | | | | 1:52pm | 2:04pm | | | (Auto) | | | | | | | | + +---------+ +-------+ + + + + | Basophil | 1 | % | | 0-2 | 07/19/16 | 07/19/16 | | | s (%) | | | | | 1:52pm | 2:04pm | | | (Auto) | | | | | | | | + +---------+ +-------+ + + + + | Immature | 0 | % | | 0-1 | 07/19/16 | 07/19/16 | | | | | | | | 1:52pm | 2:04pm | | | Granuloc | | | | | | | | | yte % | | | | | | | | | (Auto) | | | | | | | | + +---------+ +-------+ + + + + | Nucleate | 0.0 | /100 WBC | | 0.0-0.2 | 07/19/16 | 07/19/16 | | | d Red | | | | | 1:52pm | 2:04pm | | | Blood | | | | | | | | | Cells % | | | | | | | | + +---------+ +-------+ + + + + | Absolute | 3.31 | K/mm3 | | 1.96-9.1 | 07/19/16 | 07/19/16 | | | | | | | 5 | 1:52pm | 2:04pm | | | Neutroph | | | | | | | | | ils | | | | | | | | | (auto) | | | | | | | | + +---------+ +-------+ + + + + | Absolute | 1.29 | K/mm3 | | 0.84-5.2 | 07/19/16 | 07/19/16 | | | | | | | 0 | 1:52pm | 2:04pm | | | Lymphocy | | | | | | | | | serge | | | | | | | | | (auto) | | | | | | | | + +---------+ +-------+ + + + + | Absolute | 0.27 | K/mm3 | | 0.16-1.4 | 07/19/16 | 07/19/16 | | | | | | | 7 | 1:52pm | 2:04pm | | | Monocyte | | | | | | | | | s (auto) | | | | | | | | + +---------+ +-------+ + + + + | Absolute | 0.08 | K/mm3 | | 0.00-0.6 | 07/19/16 | 07/19/16 | | | | | | | 8 | 1:52pm | 2:04pm | | | Eosinoph | | | | | | | | | ils | | | | | | | | | (auto) | | | | | | | | + +---------+ +-------+ + + + + | Absolute | 0.03 | K/mm3 | | 0.00-0.2 | 07/19/16 | 07/19/16 | | | | | | | 3 | 1:52pm | 2:04pm | | | Basophil | | | | | | | | | s (auto) | | | | | | | | + +---------+ +-------+ + + + + | Absolute | 0.02 | K/mm3 | | 0.00-0.1 | 07/19/16 | 07/19/16 | | | | | | | 0 | 1:52pm | 2:04pm | | | Immature | | | | | | | | | | | | | | | | | | Granuloc | | | | | | | | | yte | | | | | | | | | (auto | | | | | | | | + +---------+ +-------+ + + + + | Nucleate | 0.00 | K/mm3 | | 0.00-0.0 | 07/19/16 | 07/19/16 | | | d RBC | | | | 2 | 1:52pm | 2:04pm | | | Absolute | | | | | | | | | Count | | | | | | | | | (auto) | | | | | | | | + +---------+ +-------+ + + + + | Sodium | 142 | mmol/L | | 136-145 | 07/19/16 | 07/19/16 | | | Level | | | | | 1:52pm | 2:19pm | | + +---------+ +-------+ + + + + | Potassiu | 4.3 | mmol/L | | 3.5-5.5 | 07/19/16 | 07/19/16 | | | m Level | | | | | 1:52pm | 2:19pm | | + +---------+ +-------+ + + + + | Chloride | 105 | mmol/L | | 98-108 | 07/19/16 | 07/19/16 | | | Level | | | | | 1:52pm | 2:19pm | | + +---------+ +-------+ + + + + | Carbon | 26 | mmol/L | | 21-32 | 07/19/16 | 07/19/16 | | | Dioxide | | | | | 1:52pm | 2:19pm | | | Level | | | | | | | | + +---------+ +-------+ + + + + | Anion | 11 | mmol/L | | 6-16 | 07/19/16 | 07/19/16 | | | Gap | | | | | 1:52pm | 2:19pm | | + +---------+ +-------+ + + + + | Glucose | 198 | mg/dL | H | 70-99 | 07/19/16 | 07/19/16 | | | Level | | | | | 1:52pm | 2:19pm | | + +---------+ +-------+ + + + + | Blood | 1 | mg/dL | L | 8-24 | 07/19/16 | 07/19/16 | | | Urea | | | | | 1:52pm | 2:19pm | | | Nitrogen | | | | | | | | + +---------+ +-------+ + + + + | Creatini | 1.69 | mg/dL | H | 0.40-1.0 | 07/19/16 | 07/19/16 | | | ne | | | | 0 | 1:52pm | 2:19pm | | + +---------+ +-------+ + + + + | BUN/Crea | 0.6 | % | L | 12.0-20. | 07/19/16 | 07/19/16 | | | tinine | | | | 0 | 1:52pm | 2:19pm | | | Ratio | | | | | | | | + +---------+ +-------+ + + + + | Glomerul | 30 | | L | 60- | 07/19/16 | 07/19/16 | Referenc | | ar | | | | | 1:52pm | 2:19pm | e Range: | | Filtrati | | | | | | | Above | | on Rate | | | | | | | 60 | | Calc | | | | | | | mL/min/1 | | | | | | | | | .73m^2 | + +---------+ +-------+ + + + + | Calcium | 9.0 | mg/dL | | 8.5-10.1 | 07/19/16 | 07/19/16 | | | Level | | | | | 1:52pm | 2:19pm | | + +---------+ +-------+ + + + + | Total | 7.6 | g/dL | | 6.4-8.2 | 07/19/16 | 07/19/16 | | | Protein | | | | | 1:52pm | 2:19pm | | + +---------+ +-------+ + + + + | Albumin | 3.8 | g/dL | | 3.4-5.0 | 07/19/16 | 07/19/16 | | | | | | | | 1:52pm | 2:19pm | | + +---------+ +-------+ + + + + | Globulin | 3.8 | g/dL | | 2.2-4.0 | 07/19/16 | 07/19/16 | | | | | | | | 1:52pm | 2:19pm | | + +---------+ +-------+ + + + + | Albumin/ | 1.0 | | | 0.8-1.8 | 07/19/16 | 07/19/16 | | | Globulin | | | | | 1:52pm | 2:19pm | | | Ratio | | | | | | | | + +---------+ +-------+ + + + + | Total | 0.4 | mg/dL | | 0.1-1.0 | 07/19/16 | 07/19/16 | | | Bilirubi | | | | | 1:52pm | 2:19pm | | | n | | | | | | | | + +---------+ +-------+ + + + + | Alkaline | 89 | U/L | | 40-126 | 07/19/16 | 07/19/16 | | | | | | | | 1:52pm | 2:19pm | | | Phosphat | | | | | | | | | ase | | | | | | | | + +---------+ +-------+ + + + + | Aspartat | 64 | U/L | H | 12-37 | 07/19/16 | 07/19/16 | | | e Amino | | | | | 1:52pm | 2:19pm | | | Transf | | | | | | | | | (AST/SGO | | | | | | | | | T) | | | | | | | | + +---------+ +-------+ + + + + | Alanine | 53 | U/L | | 12-78 | 07/19/16 | 07/19/16 | | | Aminotra | | | | | 1:52pm | 2:19pm | | | nsferase | | | | | | | | | | | | | | | | | | (ALT/SGP | | | | | | | | | T) | | | | | | | | + +---------+ +-------+ + + + + Procedures No Known History of Procedures. Encounters + + + + + + | Encounter | Location | Arrival/Admit | Discharge/Depar | Attending | | | | Date | t Date | Provider | + + + + + + | Departed | [facility] | 07/29/16 0:33am | 07/29/16 4:37am | [place] Núñez | | Emergency | [facility] | | | S MD | + + + + + + | Departed | [facility] | 07/20/16 | 07/21/16 1:30am | Franck Olvera | | Emergency | [facility] | 10:18pm | | ER MD | + + + + + + | Registered | [facility] | 07/19/16 1:59pm | | Rehan Fitzgerald | | Clinical | [facility] | | | MD | + + + + + + + + | Encounter Diagnosis | + + | Asthenia | + + | Chronic kidney disease | + +"
--- OUTSIDE RECORDS SUMMARY | ~2019-03-25 | XMS | Clinical Summary ---
Demographics + + + | Address | [address] [place] [address] | | | [place], [place] [address] | + + + | Home Phone | | + + + | Preferred Language | Unknown | + + + | Marital Status | D | + + + | Caodaism Affiliation | Unknown | + + + | Race | White | + + + | Ethnic Group | or | + + + Author + + + | Author | [facility] | + + + | Organization | [facility] | + + + | Address | [address] | | | [place] [address] | + + + | Phone | Unavailable | + + + Care Team Providers + + + + | Care Solar Energy Engineer Name | Role | Phone | [...] fied | | +---------+---------+---------+---------+---------+---------+---------+---------+---------+ | DIABETE | [id number] | | Active | | David | [...] s | | +---------+---------+---------+---------+---------+---------+---------+---------+---------+ | NAUSEA | [id number] | | Resolve | | Geetha | | Nausea | | | ALONE | | | d | | Patrick | | | | | | (SNOMED | | | | [facility] | | | | | | CT) | | | | | | | | +---------+---------+---------+---------+---------+---------+---------+---------+---------+ | VACCINA | [id number] | | Resolve | | Geetha | [...] | | | +---------+---------+---------+---------+---------+---------+---------+---------+---------+ | FLANK | [id number] | | Active | | Geetha | | Flank | | | PAIN | 05 | /01 | | /01 | Rattan | | pain | | | | (SNOMED | | | | [facility] | | | | | | CT) | | | | | | | | +---------+---------+---------+---------+---------+---------+---------+---------+---------+ | VACCINA | [id number] | | Removed | | Ambrose | | Medicat | | | TION | 02 | /03 | | /03 | Ankur | | ion | | | FOR | (SNOMED | | | | DNP JOB COACHING | | given | | | STREP [...] | | | +---------+---------+---------+---------+---------+---------+---------+---------+---------+ | OSTEOAR | [id number] | | Active | | Edna | | Osteoar | | | THRITIS | 07 | /16 | | /18 | Hope | | thritis | | | , KNEE, | (SNOMED | | | | [facility]MA | | of | | | RIGHT | CT) | | | | | | knee | | +---------+---------+---------+---------+---------+---------+---------+---------+---------+ | CONSTIP | [id number] | | Active | | Ambrose | | Constip | | | ATION | 8 | /13 | | /13 | Ankur | | ation | | | | (SNOMED | | | | DNP JOB COACHING | | | | | | CT) | | | | | | | | +---------+---------+---------+---------+---------+---------+---------+---------+---------+ | TYPE 2 | E11.21 | | Active | | Ambrose | | Type 2 | | | DIABETE | (ICD-10 | /19 | | /19 | Ankur | | diabete | | | S | -CM) | | | | DNP JOB COACHING | | s | | | MELLITU [...] athy | | +---------+---------+---------+---------+---------+---------+---------+---------+---------+ | DIABETE | [id number] | | Inactiv | | Ambrose | | Type 2 | | | S | 6 | /08 | e | /08 | Nakur | | diabete | | | MELLITU | (SNOMED | | | | DNP JOB COACHING | | s | | | S, TYPE | CT) | | | | | | mellitu | | | II, ON | | | | | | | s | | | | | | | | | | | | | INSULIN | | | | | | | | | +---------+---------+---------+---------+---------+---------+---------+---------+---------+ | DEHYDRA | [id number] | | Resolve | | Ambrose | | Dehydra | | | TION | 6 | / | d | /08 | Ankur | | tion | | | | (SNOMED | | | | DNP JOB COACHING | | | | | | CT) | | | | | | | | +---------+---------+---------+---------+---------+---------+---------+---------+---------+ | DIZZINE | [id number] | | Inactiv | | Ambrose | | Dizzine | | | SS | 03 | /08 | e | /08 | Ankur | | ss | | | | (SNOMED | | | | DNP JOB COACHING | | | | | | CT) | | | | | | | | +---------+---------+---------+---------+---------+---------+---------+---------+---------+ | ANEMIA | [id number] | | Inactiv | | Ambrose | | Anemia | | | | 00 | /10 | e | /10 | Ankur | | | | | | (SNOMED | | | | DNP JOB COACHING | | | | | | CT) | | | | | | | | +---------+---------+---------+---------+---------+---------+---------+---------+---------+ | CONSTIP | [id number] | | Inactiv | | Ambrose | | Constip | | | ATION | 8 | /13 | e | /13 | Ankur | | ation | | | | (SNOMED | | | | DNP JOB COACHING | | | | | | CT) | | | | | | | | +---------+---------+---------+---------+---------+---------+---------+---------+---------+ | SYNCOPE | [id number] | | Resolve | | Ambrose | | Syncope | | | | 07 | /07 | d | /10 | Ankur | | | | | | (SNOMED | | | | DNP JOB COACHING | | | | | | CT) | | | | | | | | +---------+---------+---------+---------+---------+---------+---------+---------+---------+ | DYSPHAG | R13.10 | | Resolve | | Ambrose | | Dysphag | | | IA | (ICD-10 | / | d | | Ankur | | ia, | | | UNSPECI | -CM) | | | | DNP JOB COACHING | | unspeci | | | FIED | | | | | | | fied | | +---------+---------+---------+---------+---------+---------+---------+---------+---------+ | PARESTH | [id number] | | Inactiv | | Ambrose | | Paresth | | | ESIA, | 04 | | e | | Ankur | | esia of | | | HANDS | (SNOMED | | | | DNP JOB COACHING | | hand | | | | CT) | | | | | | | | +---------+---------+---------+---------+---------+---------+---------+---------+---------+ | DIABETI | [id number] | | Inactiv | | Ambrose | | Diabeti | | | C | 06 | | e | | Ankur | | c | | | PERIPHE | (SNOMED | | | | DNP JOB COACHING | | periphe | | | RAL [...] | -CM) | | | | DNP JOB COACHING | | unspeci | | | FIED | | | | | | | fied | | +---------+---------+---------+---------+---------+---------+---------+---------+---------+ | VAGINIT | [id number] | | Resolve | | Ambrose | | Vaginit | | | IS | 1 | /31 | d | /31 | Ankur | | is | | | | (SNOMED | | | | DNP JOB COACHING | | | | | | CT) | | | | | | | | +---------+---------+---------+---------+---------+---------+---------+---------+---------+ | DYSURIA | [id number] | | Resolve | | Ambrose | | Dysuria | | | | 1 | /31 | d | /31 | Ankur | | | | | | (SNOMED | | | | DNP JOB COACHING | | | | | | CT) | | | | | | | | +---------+---------+---------+---------+---------+---------+---------+---------+---------+ | EDEMA | [id number] | | Inactiv | | Ambrose | | Edema | | | | 08 | | e | / | Ankur | | | | | | (SNOMED | | | | DNP JOB COACHING | | | | | | CT) | | | | | | | | +---------+---------+---------+---------+---------+---------+---------+---------+---------+ | RENAL | [id number] | | Inactiv | | Ambrose | | Acute | | | FAILURE | 1 | / | e | / | Ankur | | renal | | | , ACUTE | (SNOMED | | | | DNP JOB COACHING | | failure | | | | CT) | | | | | | | | | | | | | | | | syndrom | | | | | | | | | | e | | +---------+---------+---------+---------+---------+---------+---------+---------+---------+ | DIABETE | [id number] | | Inactiv | | Ambrose | | Periphe | | | S | 02 | | e | / | Ankur | | ral | | | MELLITU | (SNOMED | | | | DNP JOB COACHING | | vascula | | | S, [...] | -CM) | | | | DNP JOB COACHING | | s | | | DIABETI [...] ropathy | | +---------+---------+---------+---------+---------+---------+---------+---------+---------+ | LOCALIZ | [id number] | | Resolve | | Ambrose | | Disorde | | | ED | 09 | / | d | / | Ankur | | r of | | | SWELLIN | (SNOMED | | | | DNP JOB COACHING | | forearm | | | G [...] | | | +---------+---------+---------+---------+---------+---------+---------+---------+---------+ | UTI | [id number] | | Resolve | | Ambrose | | Urinary | | | | 5 | /13 | d | /13 | Ankur | | tract | | | | (SNOMED | | | | DNP JOB COACHING | | infecti | | | | [...] | -CM) | | | | DNP JOB COACHING | | s | | | MELLITU [...] athy | | +---------+---------+---------+---------+---------+---------+---------+---------+---------+ | DEMENTI | [id number] | | Inactiv | | Ambrose | | Procedu | | | A | | | e | | Ankur | | re | | | SCREENI | (SNOMED | | | | DNP JOB COACHING | | carried | | | NG | CT) | | | | | | out on | | | | | | | | | | | | | | | | | | | | subject | | +---------+---------+---------+---------+---------+---------+---------+---------+---------+ | CHANGE | [id number] | | Inactiv | | Ambrose | | Altered | | | IN | 9 | /13 | e | /13 | Ankur | | bowel | | | BOWEL | (SNOMED | | | | DNP JOB COACHING | | functio | | | HABITS | CT) | | | | | | n | | +---------+---------+---------+---------+---------+---------+---------+---------+---------+ | MILD | [id number] | | Inactiv | | Ambrose | | Mild | | | COGNITI | | | e | | Ankur | | cogniti | | | VE | (SNOMED | | | | DNP JOB COACHING | | ve | | | IMPAIRM | CT) | | | | | | disorde | | | ENT | | | | | | | r | | +---------+---------+---------+---------+---------+---------+---------+---------+---------+ | DIABETE | [id number] | | Inactiv | | Ambrose | | Periphe | | | S | 221703 | /11 | e | / | Ankur | | ral | | | MELLITU | (SNOMED | | | | DNP JOB COACHING | | neuropa | | | S, [...] fied | | +---------+---------+---------+---------+---------+---------+---------+---------+---------+ | DIABETE | [id number] | | Active | | David Paez | | Periphe | | | S | 766754 | /15 | | /15 | Theen [...] | | | +---------+---------+---------+---------+---------+---------+---------+---------+---------+ | MUSCLE | [id number] | | Active | | Christen | | Muscle | | | PAIN | 1 | | | | J. | | pain | | | | (SNOMED | | | | [place] | | | | | | CT) | | | | ta JOB COACHING | | | | +---------+---------+---------+---------+---------+---------+---------+---------+---------+ | DIABETE | [id number] | | Removed | 2017/05 | David W | | Periphe | | | S | 419945 | /11 | | /12 | Theen [...] | | | +---------+---------+---------+---------+---------+---------+---------+---------+---------+ | MILD | [id number] | | Removed | | Maulik | [...] uterus | | +---------+---------+---------+---------+---------+---------+---------+---------+---------+ | COLONIC | [id number] | | Active | | Emeka | [...] | | | +---------+---------+---------+---------+---------+---------+---------+---------+---------+ | CONSTIP | [id number] | | Removed | | Emeka | | Constip | | | ATION | 8 | / | | / | Petre | | ation | | | | (SNOMED | | | | MD | | | | | | CT) | | | | | | | | +---------+---------+---------+---------+---------+---------+---------+---------+---------+ | CHANGE | 6281253 | | Removed | | Emeka | | Altered | | | IN | 9 | /13 | | /13 | Petre | | bowel | | | BOWEL | (SNOMED | | | | MD | | functio | | | HABITS | CT) | | | | | | n | | +---------+---------+---------+---------+---------+---------+---------+---------+---------+ | DECREAS | 0347314 | | Active | | Emeka | | Decreas | | | ED | 6 | | | | Petre | | e in | | | APPETIT | (SNOMED | | | | MD | | appetit | | | E | CT) | | | | | | e | | +---------+---------+---------+---------+---------+---------+---------+---------+---------+ | WEIGHT | 3547638 | | Active | | Emeka | | Abnorma | | | LOSS | 01 | | | | Petre | | l | | | ABNORMA | (SNOMED | | | | MD | | weight | | | L | CT) | | | | | | loss | | +---------+---------+---------+---------+---------+---------+---------+---------+---------+ | NAUSEA | 1206983 | | Removed | | Emeka | | Nausea | | | ALONE | 07 | / | | /13 | Petre | | | | | | (SNOMED | | | | MD | | | | | | CT) | | | | | | | | +---------+---------+---------+---------+---------+---------+---------+---------+---------+ | RECTAL | 4657768 | | Active | | Emeka | | Rectal | | | BLEEDIN | 2 | | | / | Petre | | hemorrh | | | G | (SNOMED | | | | MD | | age | | | | CT) | | | | | | | | +---------+---------+---------+---------+---------+---------+---------+---------+---------+ | DEMENTI | 4867630 | | Active | | Christen | | Dementi | | | A | 6 | /10 | | /10 | J. | | a | | | WITHOUT | (SNOMED | | | | [place] | | | | | | CT) | | | | ta JOB COACHING | | | | | BEHAVIO | | | | | | | | | | RAL | | | | | | | | | | DISTURB | | | | | | | | | | ANCE | | | | | | | | | +---------+---------+---------+---------+---------+---------+---------+---------+---------+ | CHRONIC | [id number] | | Active | | Christen | | Chronic | | | | 03 | /10 | | /10 | J. | | | | | PROGRES | (SNOMED | | | | [place] | | progres | | | SIVE | CT) | | | | ta JOB COACHING | | sive | | | RENAL | | | | | | | renal | | | FAILURE | | | | | | | failure | | +---------+---------+---------+---------+---------+---------+---------+---------+---------+ | ANEMIA | 1473289 | | Removed | | Christen | | Anemia | | | | 00 | /10 | | / | J. | | | | | | (SNOMED | | | | [place] | | | | | | CT) | | | | ta JOB COACHING | | | | +---------+---------+---------+---------+---------+---------+---------+---------+---------+ | DEMENTI | 4388026 | | Removed | | Christen | | Procedu | | | A | 03 | | | | J. | | re | | | SCREENI | (SNOMED | | | | [place] | | carried | | | NG | CT) | | | | ta JOB COACHING | | out on | | | | | | | | | | | | | | | | | | | | subject | | +---------+---------+---------+---------+---------+---------+---------+---------+---------+ | FALL | [id number] | | Active | | Christen | | At risk | | | RISK | 07 | /21 | | /22 | J. | | for | | | | (SNOMED | | | | [place] | | falls | | | | CT) | | | | ta JOB COACHING | | | | +---------+---------+---------+---------+---------+---------+---------+---------+---------+ | DIABETE | 2048969 | | Resolve | | Christen | | Periphe | | | S | [id number] | /14 | d | /15 | J. | | ral | | | MELLITU | (SNOMED | | | | [place] | | neuropa | | | S, TYPE | CT) | | | | ta JOB COACHING | | thy | | | II [...] | | | +---------+---------+---------+---------+---------+---------+---------+---------+---------+ | CORNS | [id number] | | Inactiv | | Kali | | Corns | | | AND | 00 | / | e | / | Palacio | | and | | | CALLOSI | (SNOMED | | | | DPM | | callus | | | TIES | CT) | | | | | | | | +---------+---------+---------+---------+---------+---------+---------+---------+---------+ | HAMMER | 4118369 | | Active | | Kali | [...] | | | +---------+---------+---------+---------+---------+---------+---------+---------+---------+ | HALLUX | 1156139 | | Active | | Kali | [...] ropathy | | +---------+---------+---------+---------+---------+---------+---------+---------+---------+ | DIABETE | 6083605 | | Removed | | Kali | [...] s | | +---------+---------+---------+---------+---------+---------+---------+---------+---------+ | ONYCHOM | 4134818 | | Active | | Kali | | Onychom | | | YCOSIS | 08 | /01 | | /01 | Palacio | | ycosis | | | | (SNOMED | | | | DPM | | | | | | CT) | | | | | | | | +---------+---------+---------+---------+---------+---------+---------+---------+---------+ | HEARTBU | 1353824 | | Active | | Tiesha | | Heartbu | | | RN | 0 | /19 | | /19 | | | rn | | | | (SNOMED | | | | [place] | | | | | | CT) | | | | MD | | | | +---------+---------+---------+---------+---------+---------+---------+---------+---------+ | TYPE 2 | 7826939 | | Active | | Tiesha | [...] athy | | +---------+---------+---------+---------+---------+---------+---------+---------+---------+ | UTI | 8725667 | | Removed | | Pako | | Urinary | | | | 5 | /13 | | /13 | Middlek | | tract | | | | (SNOMED | | | | auff | | infecti | | | | CT) | | | | JOB COACHING | | ous | | | | | | | | | | disease | | +---------+---------+---------+---------+---------+---------+---------+---------+---------+ | LOCALIZ | 4650591 | | Removed | | D'Elena | [...] | | | +---------+---------+---------+---------+---------+---------+---------+---------+---------+ | LIPOMA | 7073095 | | Active | | Lauranc | | Lipoma | | | | 2 | /14 | | /14 | e W | | (clinic | | | | (SNOMED | | | | Lila | | al) | | | | CT) | | | | MD | | | | +---------+---------+---------+---------+---------+---------+---------+---------+---------+ | VITAMIN | 8545752 | | Active | | David W | | Vitamin | | | D | 6 | /14 | | /15 | Theen | | D | | | DEFICIE | (SNOMED | | | | MD FACE | | deficie | | | NCY | CT) | | | | FACP | | ncy | | +---------+---------+---------+---------+---------+---------+---------+---------+---------+ | OBESITY | 2682326 | | Active | | David Paez | | Obesity | | | , BMI | 01 | /14 | | /15 | Theen | | | | | 35-39.9 | (SNOMED | | | | MD FACE | | | | | , ADULT | CT) | | | | FACP | | | | +---------+---------+---------+---------+---------+---------+---------+---------+---------+ | DIABETE | 9976620 | | Removed | | David Paez | | Periphe | | | S | 474356 | /14 | | /15 | Theen [...] | | | +---------+---------+---------+---------+---------+---------+---------+---------+---------+ | HALLUX | 4059720 | | Inactiv | | Kali | [...] | | | +---------+---------+---------+---------+---------+---------+---------+---------+---------+ | HAMMER | 8481452 | | Inactiv | | Kali | | Hammer | | | TOE, | 08 | | e | /01 | Palacio | | toe | | | OTHER, | (SNOMED | | | | DPM | | | | | ACQUIRE | CT) | | | | | | | | | D | | | | | | | | | +---------+---------+---------+---------+---------+---------+---------+---------+---------+ | ONYCHOM | 0223599 | | Inactiv | | Kali | [...] ropathy | | +---------+---------+---------+---------+---------+---------+---------+---------+---------+ | DIABETE | 7644427 | | Inactiv | | Kali | [...] s | | +---------+---------+---------+---------+---------+---------+---------+---------+---------+ | SCREENI | 7105085 | | Resolve | | Lauranc | | Depress | | | NG FOR | 06 | /10 | d | /10 | e W | | ion | | | DEPRESS | (SNOMED | | | | Lila | | screeni | | | ION | CT) | | | | MD | | ng | | +---------+---------+---------+---------+---------+---------+---------+---------+---------+ | SCREENI | 8889310 | | Resolve | | Lauranc | [...] | | | +---------+---------+---------+---------+---------+---------+---------+---------+---------+ | SCREENI | 8580516 | | Resolve | | Lauranc | [...] ng | | +---------+---------+---------+---------+---------+---------+---------+---------+---------+ | SCREENI | 0775976 | | Removed | | Geetha | | Alcohol | | | NG FOR | 01 | /10 | | /10 | Rattan | | | | | ALCOHOL | (SNOMED | | | | [facility] | | consump | | | ISM | CT) | | | | | | tion | | | | | | | | | | screeni | | | | | | | | | | ng | | +---------+---------+---------+---------+---------+---------+---------+---------+---------+ | SCREENI | 0868557 | | Removed | | Geetha | [...] | | | +---------+---------+---------+---------+---------+---------+---------+---------+---------+ | SCREENI | 2128232 | | Removed | | Geetha | | Depress | | | NG FOR | 06 | /10 | | /10 | Rattan | | ion | | | DEPRESS | (SNOMED | | | | [facility] | | screeni | | | ION | CT) | | | | | | ng | | +---------+---------+---------+---------+---------+---------+---------+---------+---------+ | RENAL | 6876880 | | Removed | | Lauranc | [...] e | | +---------+---------+---------+---------+---------+---------+---------+---------+---------+ | EDEMA | 4724751 | | Removed | | Lauranc | | Edema | | | | 08 | / | | / | e W | | | | | | (SNOMED | | | | Lila | | | | | | CT) | | | | MD | | | | +---------+---------+---------+---------+---------+---------+---------+---------+---------+ | RENAL | 6947537 | | Active | | Luz | [...] e | | +---------+---------+---------+---------+---------+---------+---------+---------+---------+ | PERIPHE | 9305074 | | Active | | Lauranc | [...] disease | | +---------+---------+---------+---------+---------+---------+---------+---------+---------+ | CANDIDI | 2200682 | | Active | | Susanna | | Candidi | | | ASIS, | 6 | / | | /03 | Medel | | asis of | | | SKIN | (SNOMED | | | | MD | | skin | | | | CT) | | | | | | | | +---------+---------+---------+---------+---------+---------+---------+---------+---------+ | DYSURIA | 4647609 | | Removed | | Erica | | Dysuria | | | | 1 | /31 | | /31 | Paul | | | | | | (SNOMED | | | | MA | | | | | | CT) | | | | | | | | +---------+---------+---------+---------+---------+---------+---------+---------+---------+ | VAGINIT | 1644917 | | Removed | | Erica | | Vaginit | | | IS | 1 | /31 | | / | Paul | | is | | | | (SNOMED | | | | MA | | | | | | CT) | | | | | | | | +---------+---------+---------+---------+---------+---------+---------+---------+---------+ | RLQ | 5883381 | | Resolve | | Lauranc | | Right | | | PAIN | 02 | | d | /11 | e W | | lower | | | | (SNOMED | | | | Lila | | quadran | | | | CT) | | | | MD | | t pain | | +---------+---------+---------+---------+---------+---------+---------+---------+---------+ | ABDOMIN | 3463842 | | Resolve | | Lauranc | [...] | | | +---------+---------+---------+---------+---------+---------+---------+---------+---------+ | KNEE | 6252289 | | Active | | Lauranc | | Knee | | | PAIN | 3 | /14 | | /14 | e W | | pain | | | | (SNOMED | | | | Lila | | | | | | CT) | | | | MD | | | | +---------+---------+---------+---------+---------+---------+---------+---------+---------+ | Questio | 0093944 | | Correct | | Lauranc | [...] e | | +---------+---------+---------+---------+---------+---------+---------+---------+---------+ | VERTIGO | 5016913 | | Active | | Luz | | Vertigo | | | | 01 | /28 | | /03 | Asad | | | | | | (SNOMED | | | | RN | | | | | | CT) | | | | | | | | +---------+---------+---------+---------+---------+---------+---------+---------+---------+ | CHEST | 6250528 | | Inactiv | | Genny | | Chest | | | PAIN | 9 | | e | /02 | Kaufman | | pain | | | | (SNOMED | | | | | | | | | | CT) | | | | | | | | +---------+---------+---------+---------+---------+---------+---------+---------+---------+ | CHEST | 2340484 | | Inactiv | | Lauranc | [...] fied | | +---------+---------+---------+---------+---------+---------+---------+---------+---------+ | CEREBRO | 0966452 | | Active | | Rogers | | Cerebro | | | VASCULA | 0 | / | | | Laith | | vascula | | | R | (SNOMED | | | | MD | | r | | | DISEASE | CT) | | | | | | disease | | +---------+---------+---------+---------+---------+---------+---------+---------+---------+ | History | 1043406 | | Active | | Rogers | [...] | | | +---------+---------+---------+---------+---------+---------+---------+---------+---------+ | DIABETI | 1975814 | | Removed | | Rogers | [...] thy | | +---------+---------+---------+---------+---------+---------+---------+---------+---------+ | HYPERLI | 3429939 | | Active | | Rogers | | Hyperli | | | PIDEMIA | 4 | | | / | Laith | | pidemia | | | | (SNOMED | | | | MD | | | | | | CT) | | | | | | | | +---------+---------+---------+---------+---------+---------+---------+---------+---------+ | History | 1074906 | | Active | | Rogers | [...] e | | +---------+---------+---------+---------+---------+---------+---------+---------+---------+ | CEREBRA | [id number] | | Correct | | Rogers | [...] s | | +---------+---------+---------+---------+---------+---------+---------+---------+---------+ | ABDOMIN | 4454551 | | Removed | | Patricia | [...] | | | +---------+---------+---------+---------+---------+---------+---------+---------+---------+ | RLQ | 3951237 | | Removed | | Patricia | [...] fied | | +---------+---------+---------+---------+---------+---------+---------+---------+---------+ | CARPAL | 6286091 | | Active | | Rogers | | Carpal | | | 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 | /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 | | | | MD | | 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, LEFT | CT) | | | | | | e | | +---------+---------+---------+---------+---------+---------+---------+---------+---------+ | Questio | [id number] | | Removed | | Rogers | [...] | | | +---------+---------+---------+---------+---------+---------+---------+---------+---------+ | GAIT | 1578251 | | Active | | Rogers | | Abnorma | | | IMBALAN | 2 | | | / | Laith | | l gait | | | CE | (SNOMED | | | | MD | | | | | | CT) | | | | | | | | +---------+---------+---------+---------+---------+---------+---------+---------+---------+ | BRAIN | 0624171 | | Correct | | Rogers | [...] e | | +---------+---------+---------+---------+---------+---------+---------+---------+---------+ | PARESTH | 0159354 | | Removed | | Rogers | | Paresth | | | ESIA, | | | | | Laith | | esia of | | | HANDS | (SNOMED | | | | MD | | hand | | | | CT) | | | | | | | | +---------+---------+---------+---------+---------+---------+---------+---------+---------+ | PERIPHE | 8864285 | | Correct | | Rogers | | Periphe | | | RAL | | /25 | ion | /25 | Laith | | ral | | | NEUROPA | (SNOMED | | | | MD | | nerve | | | THY | CT) | | | | | | disease | | +---------+---------+---------+---------+---------+---------+---------+---------+---------+ | THYROID | 2942619 | | Active | | Luz | | Thyroid | | | NODULE | 05 | /20 | | /20 | Eladio | | nodule | | | | (SNOMED | | | | [facility] | | | | | | CT) | | | | | | | | +---------+---------+---------+---------+---------+---------+---------+---------+---------+ | TIA | 9615351 | | Active | | Lauranc | [...] a | | +---------+---------+---------+---------+---------+---------+---------+---------+---------+ | SYNCOPE | [id number] | | Removed | | Lauranc | | Syncope | | | | 07 | /07 | | /10 | e W | | | | | | (SNOMED | | | | Lila | | | | | | CT) | | | | MD | | | | +---------+---------+---------+---------+---------+---------+---------+---------+---------+ | GASTROP | [id number] | | Active | | Lauranc | | 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 | | | | (SNOMED | | | | Lila | | syndrom | | | | CT) | | | | MD | | e | | +---------+---------+---------+---------+---------+---------+---------+---------+---------+ | CONSTIP | [id number] | | Active | | Lauranc | | Chronic | | | ATION, | | / | | 08 | e W | | | | | CHRONIC | (SNOMED | | | | Lila | | constip | | | | CT) | | | | MD | | ation | | +---------+---------+---------+---------+---------+---------+---------+---------+---------+ | POSTHER | [id number] | | Active | | Lauranc | | Posther | | | 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 | (SNOMED | | | | Lila | | neuralg | | | [place] | CT) | | | | MD | | ia | | +---------+---------+---------+---------+---------+---------+---------+---------+---------+ | DIZZINE | [id number] | | Removed | | Lauranc | | Dizzine | | | SS | 03 | /08 | | /08 | e W | | ss | | | | (SNOMED | | | | Lila | | | | | | CT) | | | | MD | | | | +---------+---------+---------+---------+---------+---------+---------+---------+---------+ | DEHYDRA | [id number] | | Removed | | Lauranc | | Dehydra | | | TION | 6 | /08 | | /08 | e W | | tion | | | | (SNOMED | | | | Lila | | | | | | CT) | | | | MD | | | | +---------+---------+---------+---------+---------+---------+---------+---------+---------+ | DIABETE | [id number] | | Removed | | Lauranc | [...] | | | +---------+---------+---------+---------+---------+---------+---------+---------+---------+ | HYPERTE | [id number] | | Active | | Lauranc | [...] 1 pill | | | DOCUSATE | [id number] | [facility] | | MG CAPS | twice | | | SODIUM | 0 | Ankur DNP | | | daily for | | | | | JOB COACHING | | | soft | | | | | | | | stools | | | | | | + + + + + + + + | VITAMIN D | Take one | | | CHOLECALCI | [id number] | [facility] | | 1000 UNIT | tablet | | | FEROL | 1 | Ankur DNP | | TABS | daily in | | | | | JOB COACHING | | | the AM | | | | | | + + + + + + + + | VOLTAREN 1 | apply 3-4 | | | DICLOFENAC | [id number] | [facility] | | % GEL | times QD | | | SODIUM | 7 | Ankur DNP | | | PRN pain, | | | | | JOB COACHING | | | max 4 | | | | | | | | grams per | | | | | | | | applicatio | | | | | | | | n | | | | | | + + + + + + + + | CLONAZEPAM | Take one | | | CLONAZEPAM | [id number] | [facility] | | 0.5 MG | tablet | | | | 1 | Ankur DNP | | TABS | every 24 | | | | | JOB COACHING | | | hours as | | | | | | | | needed for | | | | | | | | anxiety | | | | | | + + + + + + + + | LASIX 80 | 1 tab by | | | FUROSEMIDE | 4668789629 | [facility] | | MG TABS | mouth one | | | | 5 | Ankur DNP | | | time per | | | | | JOB COACHING | | | day in the | | | | | | | | AM | | | | | | + + + + + + + + | LYRICA 100 | TAKE 1 | | | PREGABALIN | 3860200200 | [facility] | | MG CAPS | CAPSULE BY | | | | 8 | Ankur DNP | | | MOUTH | | | | | JOB COACHING | | | THREE | | | [...] TAKE 1 | | | IRBESARTAN | 1620754838 | [facility] | | 300 MG | TABLET BY | | | | 3 | Ankur DNP | | TABS | MOUTH ONCE | | | | | JOB COACHING | | | DAILY | | | | | | + + + + + + + + | EQ STOOL | TAKE 1 | | | DOCUSATE | [id number] | [facility] | | SOFTENER | CAPSULE BY | | | SODIUM | 5 | Ankur DNP | | 100 MG | MOUTH | | | | | JOB COACHING | | CAPS | TWICE | | | | | | | | DAILY FOR | | | | | | | | SOFT | | | | | | | | STOOLS | | | | | | + + + + + + + + | BASAGLAR | INJECT 68 | | | INSULIN | [id number] | [facility] | | KWIKPEN | UNITS | | | GLARGINE | 9 | Ankur DNP | | 100 | SUBCUTANEO | | | | | JOB COACHING | | UNIT/ML | USLY IN | [...] Take one | | | PANTOPRAZO | [id number] | [facility] | | LE SODIUM | tablet by | | | LE SODIUM | 8 | Ankur DNP | | 40 MG TBEC | mouth once | | | | | JOB COACHING | | | daily | | | | | | + + + + + + + + | NYSTATIN-T | Apply thin | | | NYSTATIN-T | [id number] | [facility] | | RIAMCINOLO | layer to | | | RIAMCINOLO | 5 | Ankur DNP | | NE | affected | | | NE | | JOB COACHING | | 788604-1.1 | area BID | | | | | | | UNIT/GM-% | prn for | | | | | | | CREA | itching | | | | | | + + + + + + + + | LINZESS | Take one | | | LINACLOTID | [id number] | [facility] | | 145 MCG | tablet | | | E | 0 | Ankur DNP | | CAPS | daily for | | | | | JOB COACHING | | | constipati | | | | | | | | on. | | | | | | + + + + + + + + | FUROSEMIDE | TAKE 1 | | | FUROSEMIDE | 8057409181 | [facility] | | 80 MG | TABLET BY | | | | 5 | Ankur DNP | | TABS | MOUTH ONCE | | | | | JOB COACHING | | | DAILY IN | | | | | | | | THE | | | | | | | | MORNING | | | | | | + + + + + + + + | VOLTAREN 1 | apply 3-4 | | | DICLOFENAC | 7480914879 | Fredy | | % GEL | [...] TAKE 1 | | | CHOLECALCI | 6341950207 | [facility] | | 1000 UNIT | TABLET BY | | | FEROL | 0 | Ankur DNP | | TABS | MOUTH ONCE | | | | | JOB COACHING | | | DAILY IN | | | | | | | | THE | | | | | | | | MORNING | | | | | | + + + + + + + + | ONETOUCH | Use to | | | BLOOD | 3706611312 | [facility] | | VERIO | test | | | GLUCOSE | 1 | Ankur DNP | | w/Device | glucose | | | MONITORING | | JOB COACHING | | KIT | four times | [...] use with | | | BLOOD | 2476826269 | [facility] | | PRIME | test [...] Use strip | | | GLUCOSE | 9964616082 | [facility] | | ULTRA BLUE | to checl | | | BLOOD | 0 | Ankur DNP | | STRP | glucose | | | | | JOB COACHING | | | four times | | [...] | USE | | | INSULIN | 7906066729 | [facility] | | INSULIN | SYRINGE 4 | | | SYRINGE-NE | 2 | Ankur DNP | | SYRINGE | TIMES | | | EDLE U-100 | | JOB COACHING | | 31G X | DAILYDx | | | | | | | 10/09" 0.5 | Code | | | | | | | ML | E11.40 | | | | | | + + + + + + + + | BD PEN | USE PEN | | | INSULIN | 0852134988 | [facility] | | NEEDLE | NEEDLE(S) | | | PEN NEEDLE | 9 | Ankur DNP | | SHORT U/F | 4 TIMES | | | | | JOB COACHING | | 31G X 8 MM | DAILYDx | | | | | | | | Code | | | | | | | | E11.40 | | | | | | + + + + + + + + | ONETOUCH | Use strip | | | GLUCOSE | 0164327390 | [facility] | | VERIO STRP | to checl | | | BLOOD | 0 | Ankur DNP | | | glucose | | | | | JOB COACHING | | | four times | | [...] Use to | | | GLUCOSE | 6597825408 | [facility] | | BLOOD | check [...] Take one | | | IRBESARTAN | 9017900808 Thien Boggs | | 300 MG | tablet | | | | 3 | Ankur DNP | | TABS | daily | | | | | JOB COACHING | + + + + + + + + | BD INSULIN | Use to | | | INSULIN | 5494230352 Thien Boggs | | SYRINGE | inject | | | SYRINGE-NE | 6 | Ankur DNP | | ULTRAFINE | insulin 5 | | | EDLE U-100 | | JOB COACHING | | 29G X 1/2" | times per | | | | | | | 0.5 ML | day | | | | | | + + + + + + + + | RELION | Use to | | | GLUCOSE | 9128194570 Thien Boggs | | BLOOD | check | | | BLOOD | 4 | Ankur DNP | | GLUCOSE | blood | | | | | JOB COACHING | | TEST STRP | sugars | [...] use with | | | BLOOD | 6767783863 Thien Boggs | | PRIME | test | | | GLUCOSE | 2 | Ankur DNP | | MONITOR | strips to | | | MONITORING | | JOB COACHING | | DYLAN | test BG | | | SUPPL | | | | | daily | | | | | | + + + + + + + + | RELION | use when | | | GLUCOSE | 3657424115 | [facility] | | BLOOD | testing BG | | | BLOOD | 4 | Ankur DNP | | GLUCOSE | | | | | | JOB COACHING | | TEST STRP | | | | | | | + + + + + + + + | BIOTIN 1 | Take one | | | BIOTIN | 1353078595 | Lorri | | MG CAPS | daily in | | | | 2 | Prabhakar | | | the AM | | | | | NCMA | + + + + + + + + | BASAGLAR | 68 Units | | | INSULIN | 1412284617 | [facility] | | KWIKPEN | every | | | GLARGINE | 9 | Ankur DNP | | 100 | morning | | | | | JOB COACHING | | UNIT/ML | (34 units | | | | | | | SOPN | on each | | | | | | | | side) | | | | | | + + + + + + + + | BASAGLAR | 65 Units | | | INSULIN | 1916473677 | [facility] | | KWIKPEN | every | | | GLARGINE | 9 | Ankur DNP | | 100 | morning | | | | | JOB COACHING | | UNIT/ML | | | | | | | | SOPN | | | | | | | + + + + + + + + | BASAGLAR | 60 Units | | | INSULIN | 5681614167 | [facility] | | KWIKPEN | every | | | GLARGINE | 9 | Ankur DNP | | 100 | morning | | | | | JOB COACHING | | UNIT/ML | | | | | | | | SOPN | | | | | | | + + + + + + + + | RELION | Use daily | | | GLUCOSE | 9768321301 | [facility] | | BLOOD | to check | | | BLOOD | 4 | Ankur DNP | | GLUCOSE | blood | | | | | JOB COACHING | | TEST STRP | sugar | | | | | | + + + + + + + + | DIABETIC | 1 pair per | | | DIABETIC | | [facility] | | ORTHOTIC | custom | | | ORTHOTIC | | Ankur DNP | | SHOES | fit from | | | SHOES | | JOB COACHING | | | podiatry | | | | | | | | E11.65, | | | | | | | | e11.21 | | | | | | + + + + + + + + | DIABETIC | 1 pair per | | | FOOT CARE | [id number] | [facility] | | INSOLES | custom | | | PRODUCTS | 1 | Ankur DNP | | | fit from | | | | | JOB COACHING | | | podiatry | | | | | | | | Dx. | | | | | | | | E11.65, | | | | | | | | e11.21 | | | | | | + + + + + + + + | BD INSULIN | Use 5 | | | INSULIN | 3652162923 | [facility] | | SYRINGE | times | | | SYRINGE-NE | 1 | Ankur DNP | | ULTRAFINE | daily to | | | EDLE U-100 | | JOB COACHING | | 29G X 1/2" | inject [...] Use daily | | | INSULIN | 2815275777 | [facility] | | NEEDLE | to inject | | | PEN NEEDLE | 0 | Ankur DNP | | ULTRAFINE | insulin | | | | | JOB COACHING | | 29G X | | | | | | | | 12.7MM | | | | | | | + + + + + + + + | RELION PEN | | | | INSULIN | 5637418315 | [facility] | | NEEDLES | | | | PEN NEEDLE | 4 | Ankur DNP | | 31G X 8 MM | | | | | | JOB COACHING | + + + + + + + + | MISC | | | | MISC | | [facility] | | | | | | | | Ankur DNP | | | | | | | | JOB COACHING | + + + + + + + + | NERVE | | | | NERVE | | [facility] | | PAIN | | | | PAIN | | Ankur DNP | | | | | | | | JOB COACHING | + + + + + + + + | HEARTBU | | | | HEARTBU | | [facility] | | RN/NAUSEA* | | | | RN/NAUSEA* | | Ankur DNP | | | | | | | | JOB COACHING | + + + + + + + + | STROKE | | | | STROKE | | [facility] | | PREVENTION | | | | PREVENTION | | Ankur DNP | | | | | | | | JOB COACHING | + + + + + + + + | BLOOD | | | | BLOOD | | [facility] | | PRESSURE | | | | PRESSURE | | Ankur DNP | | * | | | | * | | JOB COACHING | + + + + + + + + | DIABETE | | | | DIABETE | | [facility] | | S | | | | S | | Ankur DNP | | | | | | | | JOB COACHING | + + + + + + + + | MIRALAX | 17 gm | | | POLYETHYLE | 4988829830 | [facility] | | POWD | daily | | | NE GLYCOL | 2 | Ankur DNP | | | stirred | | | 3350 | | JOB COACHING | | | into 4-8 | | [...] 1 pill | | | DOCUSATE | [id number] | [facility] | | MG CAPS | twice | | | SODIUM | 0 | Ankur DNP | | | daily for | | | | | JOB COACHING | | | soft | | | | | | | | stools | | | | | | + + + + + + + + | NOVOLOG | 12 Units | | | INSULIN | 1951127412 | [facility] | | 100 | before | | | ASPART | 1 | Ankur DNP | | UNIT/ML | meals | | | | | JOB COACHING | | SOLN | [id number] | | [...] 1 capsule | | | PREGABALIN | 1242734487 | [facility] | | MG CAPS | three | | | | 8 | Ankur DNP | | | times | | | | | JOB COACHING | | | daily for | | | | | | | | neuropathy | | | | | | + + + + + + + + | LYRICA 100 | 1 tab | | | PREGABALIN | 2062499266 | [facility] | | MG CAPS | three | | | | 8 | Ankur DNP | | | times per | | | | | JOB COACHING | | | day. Pt | | | | | | | | states as | | | | | | | | needed | | | | | | + + + + + + + + | PROCHLORPE | Insert one | | | PROCHLORPE | 3999539625 | [facility] | | RAZINE 25 | | | | RAZINE | 0 | Ankur DNP | | MG SUPP | suppositor | | | | | JOB COACHING | | | y rectally | | | | | | | | every 24 | | | | | | | | hours as | | | | | | | | needed | | | | | | + + + + + + + + | VICTOZA 18 | .6 mg x 1 | | | LIRAGLUTID | 7385167749 | [facility] | | MG/3ML | week then | | | E | 2 | Ankur DNP | | SOPN | 1.2 mg | | | | | JOB COACHING | | | daily per | | | | | | | | week | | | | | | + + + + + + + + | RELION PEN | | | | INSULIN | 4136399939 | David | | NEEDLES | | | | PEN NEEDLE | 4 | Hoyne DO | | 31G X 8 MM | | | | | | | + + + + + + + + | NOVOLOG | 3U before | | | INSULIN | 9576330175 | Scarlett | | 100 | lunch [...] 1 tid | | | PREGABALIN | 0261899157 | Christen Ramirez | | MG CAPS | | | | | 8 | [place] | | | | | | | | JOB COACHING | + + + + + + + + | PROMETHAZI | Take one | | | PROMETHAZI | 0943084226 | [facility] | | NE HCL 25 [...] Insert one | | | PROCHLORPE | 8295633305 | [facility] | | RAZINE 25 | [...] Take one | | | CLONAZEPAM | 2762598164 | [facility] | | 0.5 MG | [...] Take one | | | PANTOPRAZO | 5470581440 | [facility] | | LE SODIUM | tablet by | | | LE SODIUM | 8 | Ankur DNP | | 40 MG TBEC | mouth once | | | | | JOB COACHING | | | daily | | | | | | + + + + + + + + | NITROFURAN | Take one | | | NITROFURAN | 8983038496 | [facility] | | TOIN | capsule [...] .6 mg x 1 | | | KULDEEPTID | 4129765483 | Christen Ramirez | | MG/3ML | week then | | | E | 2 | [place] | | SOPN | 1.2 mg | | | | | JOB COACHING | | | daily per | | | | | | | | week | | | | | | + + + + + + + + | VICTOZA 18 | Inject 0.6 | | | LIRAGLUTID | 9246516062 | Christen Ramirez | | MG/3ML | mg daily | | | E | 2 | [place] | | SOPN | | | | | | JOB COACHING | + + + + + + + + | DRAMAMINE | take 1-2 | | | DIMENHYDRI | 4427642102 | Christen EscuderoRavin | | 50 MG TABS | tabs 4 | | | MARCELA | 2 | [place] | | | times per | | | | | JOB COACHING | | | day as | | | | | | | | needed | | | | | | + + + + + + + + | NEURONTIN | take 1 tab | | | GABAPENTIN | 0327814998 | Christen Ramirez | | 300 MG | po tid . | | | | 4 | [place] | | CAPS | Pt states | | | | | JOB COACHING | | | as needed | | | | | | + + + + + + + + | PIOGLITAZO | Take 1 tab | | | PIOGLITAZO | 6889154546 | Christen Ramirez | | NE HCL 15 | by mouth | | | NE HCL | 6 | [place] | | MG TABS | one time | | | | | JOB COACHING | | | per day in | | | | | | | | the AM | | | | | | + + + + + + + + | NITROFURAN | Take one | | | NITROFURAN | 4817588932 | [facility] | | TOIN | capsule [...] NITROFURAN | | | | NITROFURAN | 7141426865 | [facility] | | TOIN | | [...] Take 1 | | | GLIPIZIDE | 5401490521 | [facility] | | XL 2.5 MG | tablet | | | | 1 | Ankur DNP | | [id number] | p.o. | | | | | JOB COACHING | | | q.a.m. | | | | | | + + + + + + + + | NOVOLOG | 3U before | | | INSULIN | 0574498877 | David | | 100 | lunch [...] 3U before | | | INSULIN | 2294095401 | Christen Ramirez | | 100 | lunch and | | | LISPRO | 1 | [place] | | UNIT/ML | 5U before | | | | | JOB COACHING | | SOLN | Dinner | | [...] <150 - | | | INSULIN | 6721937273 | Christen J. | | 100 | No insulin | | | LISPRO | 1 | [place] | | UNIT/ML | BS | | | (HUMAN) | | JOB COACHING | | SOLN | 150-200 | | [...] Take as | | | EXENATIDE | 4336921998 | Christen Ramirez | | MCG PEN 5 | directed | | | | 1 | [place] | | MCG/0.02ML | once daily | | | | | JOB COACHING | | SOPN | in the AM | | | | | | + + + + + + + + | BASAGLAR | 1 pen | | | INSULIN | 2050895617 | Christen Ramirez | | KWIKPEN | every 3 | | | GLARGINE | 9 | [place] | | 100 | days 56 | | | | | JOB COACHING | | UNIT/ML | units q | | | | | | | SOPN | Day | | | | | | + + + + + + + + | BASAGLAR | 56 Units | | | INSULIN | 7269494301 | David | | KWIKPEN | every [...] Inject 0.6 | | | LIRAGLUTID | 7559053009 | Christen J. | | MG/3ML | mg daily | | | E | 2 | [place] | | SOPN | | | | | | JOB COACHING | + + + + + + + + | VICTOZA 18 | 5 unit AM | | | LIRAGLUTID | 4856470143 | Christen J. | | MG/3ML | and 5 | | | E | 2 | [place] | | SOPN | units PM | | | | | JOB COACHING | + + + + + + + + | BASAGLAR | 1 pen | | | INSULIN | 3712238894 | Christen J. | | KWIKPEN | every 3 | | | GLARGINE | 9 | [place] | | 100 | days 56 | | | | | JOB COACHING | | UNIT/ML | units q | | | | | | | SOPN | Day | | | | | | + + + + + + + + | MECLIZINE | One tab by | | | MECLIZINE | 5629974020 | [facility] | | HCL 25 MG | mouth | | | HCL | 0 | Ankur DNP | | TABS | three | | | | | JOB COACHING | | | times per | | [...] 56 Units | | | INSULIN | 9072189017 | Christen Ramirez | | KWIKPEN | by mouth | | | GLARGINE | 9 | [place] | | 100 | every | | | | | JOB COACHING | | UNIT/ML | morning | | | | | | | SOPN | | | | | | | + + + + + + + + | SUPREP | mix and | | | NA | 2090826178 | Maulik | | BOWEL PREP | [...] mix and | | | NA | 8658596715 | Emeka | | BOWEL PREP | [...] pill BID | | | DOCUSATE | [id number] | [facility] | | MG CAPS | | | | SODIUM | 0 | Ankur DNP | | | | | | | | JOB COACHING | + + + + + + + + | RELION | Use daily | | | GLUCOSE | 9425042058 | Tiesha | | BLOOD | to check | | | BLOOD | 4 | Orovada MD | | GLUCOSE | blood | [...] per | | | FOOT CARE | 3720541873 | Tiesha | | INSOLES | custom [...] 1 pill | | | CEPHALEXIN | 6548426265 | Tiesha | | MG CAPS | twice a | | | | 1 | Maria Isabel MD | | | day for 7 | | | | | | | | days | | | | | | + + + + + + + + | BD INSULIN | Use 5 | | | INSULIN | 2296118528 | [facility] | | SYRINGE | times | | | SYRINGE-NE | 1 | Ankur DNP | | ULTRAFINE | daily to | | | EDLE U-100 | | JOB COACHING | | 29G X 05/28" | inject [...] 56 units | | | INSULIN | 6713439227 | Kaykay | | UNIT/ML | qAM | | | GLARGINE | 3 | Mora DO | | SOLN | | | | | | | + + + + + + + + | KEFLEX 500 | 1 pill | | | CEPHALEXIN | 8916602490 | Pako | | MG CAPS | twice a | | | | 1 | Francoiskauf | | | day for 7 | | | | | f JOB COACHING | | | days | | | | | | + + + + + + + + | LANTUS 100 | 50 units | | | INSULIN | 4824524452 | [facility] | | UNIT/ML | once per | | | GLARGINE | 3 | Middlekauf | | SOLN | day. Pt | | | | | f JOB COACHING | | | states she | | | | | | | | is taking | | | | | | | | 56 units | | | | | | | | every AM | | | | | | + + + + + + + + | BIOTIN 1 | Take one | | | BIOTIN | 5654858979 | [facility] | | MG CAPS | daily in | | | | 2 | Ankur DNP | | | the AM | | | | | JOB COACHING | + + + + + + + + | VICTOZA 18 | | | | LIRAGLUTID | 5496224614 | Jesus | | MG/3ML | | | | E | 2 | Ethan MD | | SOPN | | | | | | | + + + + + + + + | BYETTA 5 | Take as | | | EXENATIDE | 7508564598 | Christen Ramirez | | MCG PEN 5 | directed | | | | 1 | [place] | | MCG/0.02ML | once daily | | | | | JOB COACHING | | SOPN | in the AM | | | | | | + + + + + + + + | VITAMIN D | Take one | | | CHOLECALCI | 2461760735 | [facility] | | 1000 UNIT | tablet | | | FEROL | 1 | Ankur DNP | | TABS | daily in | | | | | JOB COACHING | | | the AM | | | | | | + + + + + + + + | POTASSIUM | Take one | | | POTASSIUM | 0773423430 | [facility] | | CHLORIDE | cap daily | | | CHLORIDE | 1 | Ankur DNP | | ER 10 MEQ | in the AM | | | | | JOB COACHING | | CR-CAPS | | | | | | | + + + + + + + + | NEURONTIN | take 1 tab | | | GABAPENTIN | 1588647876 | Jesus | | 300 MG | po tid . | | | | 4 | Ethan MD | | CAPS | Pt states | | | | | | | | as needed | | | | | | + + + + + + + + | LASIX 80 | 1 tab by | | | FUROSEMIDE | 8482487086 | [facility] | | MG TABS | mouth one | | | | 5 | Ankur DNP | | | time per | | | | | JOB COACHING | | | day in the | | | | | | | | AM | | | | | | + + + + + + + + | LYRICA 100 | 1 tab | | | PREGABALIN | 4739618330 | Christen Escudero. | | MG CAPS | three | | | | 8 | [place] | | | times per | | | | | JOB COACHING | | | day. Pt | | | | | | | | states as | | | | | | | | needed | | | | | | + + + + + + + + | OMEPRAZOLE | Take one | | | OMEPRAZOLE | 5661614032 | [facility] | | 40 MG | by mouth | | | | 0 | Ankur DNP | | CPDR | one time | | | | | JOB COACHING | | | per day | | [...] tab by | | | CLOPIDOGRE | 1541149601 | [facility] | | MG TABS | mouth one | | | L | 1 | Ankur DNP | | | time per | | | BISULFATE | | JOB COACHING | | | day in the | | | | | | | | evening | | | | | | + + + + + + + + | LIPITOR 20 | take 1 | | | ATORVASTAT | 2092901780 | [facility] | | MG TABS | tablet by | | | IN CALCIUM | 3 | Ankur DNP | | | mouth | | | | | JOB COACHING | | | daily in | | | | | | | | the | | | | | | | | evening | | | | | | + + + + + + + + | VALSARTAN | Take one | | | VALSARTAN | 3075627457 | [facility] | | 160 MG | tablet | | | | 7 | Ankur DNP | | TABS | daily in | | | | | JOB COACHING | | | the AM | | | | | | + + + + + + + + | PIOGLITAZO | Take 1 tab | | | PIOGLITAZO | 5061703556 | Jesus | | NE HCL 15 [...] 25 units | | | INSULIN | 0002744926 | Jesus | | UNIT/ML | two [...] 18 | | | | LIRAGLUTID | 6754413269 | Laurance W | | MG/3ML | | | | E | 2 | Lila MD | | SOPN | | | | | | | + + + + + + + + | BYETTA 5 | 0.02 ml | | | EXENATIDE | 1337921599 | Laurance W | | MCG PEN 5 | injection | | | | 1 | Lila MD | | MCG/0.02ML | two times | | | | | | | SOPN | per day | | | | | | + + + + + + + + | DRAMAMINE | take 1-2 | | | DIMENHYDRI | [id number] | Laurance W | | 50 MG [...] 1 | | | | BIOTIN | [id number] | Kali | | MG CAPS | | | | | 2 | Palacio DPM | + + + + + + + + | VITAMIN D | | | | CHOLECALCI | [id number] | Kali | | 1000 UNIT | | | | FEROL | 1 | Hakeem DPM | | TABS | | | | | | | + + + + + + + + | POTASSIUM | | | | POTASSIUM | [id number] | Kali | | CHLORIDE | | | | CHLORIDE | 1 | Hakeem DPM | | ER 10 MEQ | | | | | | | | CR-CAPS | | | | | | | + + + + + + + + | BUSPIRONE | 1 TAB | | | BUSPIRONE | [id number] | Kali | | HCL 7.5 MG | three | | | HCL | 1 | Palacio DPM | | TABS | times per | | | | | | | | day | | | | | | + + + + + + + + | COLACE 100 | 1 tab by | | | DOCUSATE | [id number] | Kali | | MG CAPS | mouth | | | SODIUM | 0 | Palacio DPM | | | daily at | | | | | | | | bedtime | | | | | | + + + + + + + + | RELION | Use to | | | GLUCOSE | [id number] | Kali | | BLOOD | test BG | | | BLOOD | 4 | Palacio DPM | | GLUCOSE | one time | | | | | | | TEST STRP | per day | | | | | | + + + + + + + + | ONDANSETRO | 1 tab | | | ONDANSETRO | [id number] | Kali | | N HCL 4 MG | every 4 | | | N HCL | 3 | Palacio DPM | | TABS | hours | | | | | | + + + + + + + + | CILOSTAZOL | 1 tab two | | | CILOSTAZOL | [id number] | Kali | | 100 MG | times per | | | | 1 | Palacio DPM | | TABS | day | | | | | | + + + + + + + + | LANTUS 100 | 25 units | | | INSULIN | [id number] | Laurance W | | UNIT/ML | two times | | | GLARGINE | 3 | Lila MD | | SOLN | per day | | | | | | + + + + + + + + | NEURONTIN | take 1 tab | | | GABAPENTIN | [id number] | Laurance W | | 300 MG [...] tab by | | | FUROSEMIDE | [id number] | Laurance W | | MG TABS | mouth one | | | | 5 | Lila MD | | | time per | | | | | | | | day | | | | | | + + + + + + + + | FUROSEMIDE | 1 tab one | | | FUROSEMIDE | [id number] | Laurance W | | 40 MG | time per | | | | 5 | Lila MD | | TABS | day | | | | | | + + + + + + + + | BUSPIRONE | 1 TAB | | | BUSPIRONE | 5259047772 | Laurance W | | HCL 7.5 MG | three | | | HCL | 1 | Lila MD | | TABS | times per | | | | | | | | day | | | | | | + + + + + + + + | COLACE 100 | 1 tab by | | | DOCUSATE | [id number] | Laurance W | | MG CAPS | mouth | | | SODIUM | 0 | Lila MD | | | daily at | | | | | | | | bedtime | | | | | | + + + + + + + + | LYRICA 100 | 1 tab | | | PREGABALIN | [id number] | Laurance W | | MG CAPS | three | | | | 8 | Lila MD | | | times per | | | | | | | | day | | | | | | + + + + + + + + | GABAPENTIN | Take 2 | | | GABAPENTIN | [id number] | Laurance W | | 300 MG [...] by mouth | | | TRIMETHOPR | [id number] | Laurance W | | 800-160 | twice a | | | IM-SULFAME | 1 | Lila MD | | MG TABS | day for 3 | | | THOXAZOLE | | | | | days | | | | | | + + + + + + + + | BACTRIM DS | 1 by mouth | | | TRIMETHOPR | 8196239991 | Laurance W | | 800-160 | [...] 1 tab | | | MECLIZINE | [id number] | Laurance W | | HCL 25 MG | three | | | HCL | 0 | Lila MD | | TABS | times per | | | | | | | | day | | | | | | + + + + + + + + | GLUCOPHAGE | 1 tab one | | | METFORMIN | [id number] | Laurance W | | XR 500 MG | time per | | | HCL | 3 | Llia MD | | [id number]-BCR | day | | | | | | + + + + + + + + | BD INSULIN | Use 5 | | | INSULIN | [id number] | Laurance W | | SYRINGE | [...] 1 tab | | | PREGABALIN | 4081417405 | Laurance W | | MG CAPS [...] Use daily | | | INSULIN | [id number] | Ambrose | | NEEDLE | to inject | | | PEN NEEDLE | 0 | Ankur DNP | | ULTRAFINE | insulin | | | | | JOB COACHING | | 29G X | | | | | | | | 12.7MM | | | | | | | + + + + + + + + | PIOGLITAZO | Take 1 tab | | | PIOGLITAZO | 9895627401 | Laurance W | | NE HCL 15 | by mouth | | | NE HCL | 6 | Lila MD | | MG TABS | one time | | | | | | | | per day | | | | | | + + + + + + + + | FLUCONAZOL | take one | | | FLUCONAZOL | [id number] | Laurance W | | E 150 MG | tablet PO | | | E | 1 | Lila MD | | TABS | x 1 repeat | | | | | | | | in 3 days | | | | | | + + + + + + + + | LYRICA 50 | TAKE ONE | | | PREGABALIN | [id number] | Kesha | | MG CAPS | [...] Take 2 | | | GABAPENTIN | 8897318029 | Laurance W | | 300 MG [...] 0.02 ml | | | EXENATIDE | [id number] | Laurance W | | MCG PEN 5 | injection | | | | 1 | Lila MD | | MCG/0.02ML | two times | | | | | | | SOPN | per day | | | | | | + + + + + + + + | BYETTA 5 | 0.2 ml | | | EXENATIDE | 0149479575 | Laurance W | | MCG PEN 5 | injection | | | | 1 | Lila MD | | MCG/0.02ML | two times | | | | | | | SOPN | per day | | | | | | + + + + + + + + | LYRICA 50 | TAKE ONE | | | PREGABALIN | [id number] | Laurance W | | MG CAPS [...] 1 tab | | | MECLIZINE | [id number] | Laurance W | | HCL 25 MG | three | | | HCL | 0 | Lila MD | | TABS | times per | | | | | | | | day | | | | | | + + + + + + + + | CILOSTAZOL | 1 tab two | | | CILOSTAZOL | [id number] | Laurance W | | 100 MG | times per | | | | 1 | Lila MD | | TABS | day | | | | | | + + + + + + + + | ONDANSETRO | 1 tab | | | ONDANSETRO | [id number] | Laurance W | | N HCL 4 MG | every 4 | | | N HCL | 3 | Lila MD | | TABS | hours | | | | | | + + + + + + + + | LYRICA 50 | 1 tab | | | PREGABALIN | [id number] | Bailey W | | MG CAPS | three | | | | 8 | Lila MD | | | times per | | | | | | | | day | | | | | | + + + + + + + + | KEFLEX 500 | one po TID | | | CEPHALEXIN | [id number] | Susanna | | MG CAPS | | | | | 1 | Gianfranco MD | + + + + + + + + | NYSTATIN-T | Apply thin | | | NYSTATIN-T | [id number] | Ambrose | | RIAMCINOLO | layer to | | | RIAMCINOLO | 5 | Ankur DNP | | NE | affected | | | NE | | [facility] | | 782088-8.1 | area BID | | | | | | | UNIT/GM-% | prn for | | | | | | | CREA | itching | | | | | | + + + + + + + + | FLUCONAZOL | take one | | | FLUCONAZOL | [id number] | Susanna | | E 150 MG | tablet PO | | | E | 1 | Gianfranco MD | | TABS | x 1 repeat | | | | | | | | in 3 days | | | | | | + + + + + + + + | ASPIRIN | take 1 | | | ASPIRIN | [id number] | Laurance W | | 325 MG [...] tab by | | | CLOPIDOGRE | 5373475018 | Laurance W | | MG TABS | mouth one | | | L | 1 | Lila MD | | | time per | | | BISULFATE | | | | | day | | | | | | + + + + + + + + | LYRICA 50 | 1 tab | | | PREGABALIN | [id number] | Laurance W | | MG CAPS | three | | | | 8 | Lila MD | | | times per | | | | | | | | day | | | | | | + + + + + + + + | GLUCOPHAGE | 1 tab one | | | METFORMIN | [id number] | Laurance W | | XR 500 MG | time per | | | HCL | 3 | Lila MD | | [id number] | day | | | | | | + + + + + + + + | MECLIZINE | One tab by | | | MECLIZINE | 3217453802 | Laurance W | | HCL 25 [...] 10ml's two | | | METFORMIN | 7475301592 | Franciscoance W | | MG/5ML | [...] Take 2 | | | GABAPENTIN | 3483446775 | Laurance W | | 300 MG [...] TAB one | | | VALSARTAN | 1743236321 | Laurance W | | 160 MG | time per | | | | 8 | Lila MD | | TABS | day | | | | | | + + + + + + + + | DULOXETINE | 1 tab one | | | DULOXETINE | 4050767330 | Laurance W | | HCL 30 MG | time per | | | HCL | 6 | Lila MD | | CPEP | day | | | | | | + + + + + + + + | GABAPENTIN | take 2 | | | GABAPENTIN | 0290284933 | Laurance W | | 300 MG [...] tab one | | | DULOXETINE | 0538342613 | Laurance W | | HCL 30 MG | time per | | | HCL | 6 | Lila MD | | CPEP | day | | | | | | + + + + + + + + | VICTOZA 18 | 1.2 mg | | | LIRAGLUTID | [id number] | Laurance W | | MG/3ML | injected | | | E | 2 | Lila MD | | SOPN | martin | | | | | | + + + + + + + + | DIOVAN 320 | 1 TAB one | | | VALSARTAN | 7214762408 | Laurance W | | MG TABS | time per | | | | 4 | Lila MD | | | day | | | | | | + + + + + + + + | MECLIZINE | One tab by | | | MECLIZINE | 6046244147 | Laurance W | | HCL 25 [...] one time | | | VALSARTAN | 9929038803 | Mariano | | MG TABS | per day | | | | 4 | Ariella | | | | | | | | CCMA | + + + + + + + + | GABAPENTIN | take 2 | | | GABAPENTIN | 3363601026 | Mariano | | 300 MG | [...] Take one | | | OMEPRAZOLE | 2246083058 | Bailey W | | 40 MG [...] take 2 | | | GABAPENTIN | 4700914021 | Laurance W | | 300 MG [...] two times | | | MECLIZINE | 6832184419 | Laurance W | | HCL 25 MG | per day | | | HCL | 0 | Lila MD | | TABS | | | | | | | + + + + + + + + | DIOVAN 320 | 1 tab one | | | VALSARTAN | 5374274304 | Bailey W | | MG TABS | time per | | | | 4 | Lila MD | | | day | | | | | | + + + + + + + + | VICTOZA 18 | 0.6 mg | | | LIRAGLUTID | 5893854195 | Bailey W | | MG/3ML | [...] take 1 | | | ASPIRIN | 0041281959 | Rogers | | 325 MG | [...] tab one | | | SITAGLIPTI | 5033142996 | Laurance W | | 100 MG | time per | | | N | 2 | Lila MD | | TABS | day | | | PHOSPHATE | | | + + + + + + + + | DIOVAN 160 | 1 by mouth | | | VALSARTAN | 7206727743 | Laurance W | | MG TABS | every day | | | | 4 | Lila MD | + + + + + + + + | GABAPENTIN | 2 tabs two | | | GABAPENTIN | 0126356417 | Laurance W | | 300 MG | times per | | | | 5 | Lila MD | | CAPS | day | | | | | | + + + + + + + + | LANTUS 100 | 56 units | | | INSULIN | 3376698666 | Laurance W | | UNIT/ML | in the | | | GLARGINE | 3 | Lila MD | | SOLN | morning | | | | | | + + + + + + + + | RIOMET 500 | 10ml's two | | | METFORMIN | 5727493684 | Laurance W | | MG/5ML | [...] tab at | | | GABAPENTIN | 2679483327 | Laurance W | | 100 MG [...] 28 units | | | INSULIN | 0415650950 | Laurance W | | UNIT/ML | two times | | | GLARGINE | 3 | Lila MD | | SOLN | per day | | | | | | + + + + + + + + | LISINOPRIL | take 1 | | | LISINOPRIL | 4654775140 | Rogers | | 20 MG | tablet by | | | | 1 | Laith LUIS | | TABS | mouth | | | | | | | | daily | | | | | | + + + + + + + + | MECLIZINE | two times | | | MECLIZINE | 8234487249 | Mariano | | HCL 25 MG | per day | | | HCL | 0 | Ariella | | TABS | | | | | | CCMA | + + + + + + + + | ERGOCALCIF | One | | | ERGOCALCIF | 0429737804 | Mariano | | QUANG 04383 | capsule by | | | QUANG [...] two times | | | GABAPENTIN | 4486517204 | Mariano | | 100 MG | per day | | | | 1 | Ariella | | CAPS | | | | | | CCMA | + + + + + + + + | METFORMIN | two times | | | METFORMIN | 0387466766 | Mariano | | HCL 1000 | per day | | | HCL | 5 | Ariella | | MG TABS | | | | | | CCMA | + + + + + + + + | RIOMET 500 | 10ml QAM | | | METFORMIN | 7563998247 | Mariano | | MG/5ML | Liquid due | | | HCL | 1 | Ariella | | SOLN | to | | | | | CCMA | | | Dysphagia | | | | | | + + + + + + + + | ASPIRIN EC | take 1 | | | ASPIRIN | 3984656134 | Mariano | | 325 MG | tablet | | | | 1 | Ariella | | TBEC | daily | | | | | CCMA | + + + + + + + + | ASPIRIN 81 | one time | | | ASPIRIN | 4397443466 | Mariano | | MG ORAL | per day | | | | 5 | Ariella | | TABLET | | | | | | CCMA | + + + + + + + + | GABAPENTIN | 1 by mouth | | | GABAPENTIN | 5570458864 | Bailey W | | 100 MG [...] take 1 | | | ATORVASTAT | 6461667349 | Bailey Paez | | MG TABS | tablet by | | | IN CALCIUM | 3 | Lila MD | | | mouth | | | | | | | | daily | | | | | | + + + + + + + + | ASPIRIN EC | take 1 | | | ASPIRIN | 7334634177 | Rogers | | 325 MG | tablet | | | | 1 | Laith MD | | TBEC | daily | | | | | | + + + + + + + + | RELION | Use to | | | GLUCOSE | 4008917048 | Laurance W | | BLOOD | test BG | | | BLOOD | 4 | Lila MD | | GLUCOSE | one time | | | | | | | TEST STRP | per day | | | | | | + + + + + + + + | RIOMET 500 | 10ml QAM | | | METFORMIN | 8839149093 | Laurance W | | MG/5ML | Liquid due | | | HCL | 1 | Lila MD | | SOLN | to | | | | | | | | Dysphagia | | | | | | + + + + + + + + | ERGOCALCIF | One | | | ERGOCALCIF | 7501417136 | Laurance W | | QUANG 70776 | capsule by | | | QUANG [...] one tablet | | | DOCUSATE | 4782039249 | Laurance W | | MG CAPS | by mouth | | | SODIUM | 0 | Lila MD | | | at bedtime | | | | | | + + + + + + + + | GABAPENTIN | one tablet | | | GABAPENTIN | 7497915737 | Laurance W | | 100 MG [...] by mouth | | | MECLIZINE | 7819599729 | Laurance W | | HCL 25 [...] by mouth | | | LISINOPRIL | 3214559801 | Laurance W | | 5 MG TABS | one time | | | | 1 | Lila MD | | | per day | | | | | | + + + + + + + + | COLACE 100 | one tablet | | | DOCUSATE | 5708796834 | Laurance W | | MG CAPS | by mouth | | | SODIUM | 0 | Lila MD | | | at bedtime | | | | | | + + + + + + + + | MECLIZINE | 1 by mouth | | | MECLIZINE | 1111393201 | Laurance W | | HCL 25 [...] one tablet | | | GABAPENTIN | 1772173959 | Laurance W | | 100 MG [...] one tablet | | | METFORMIN | 4158112915 | Laurance W | | HCL 1000 | by mouth | | | HCL | 5 | Lila MD | | MG TABS | twice a | | | | | | | | day | | | | | | + + + + + + + + | ASPIRIN 81 | 1 by mouth | | | ASPIRIN | 1370935151 | Laurance W | | MG ORAL | every day | | | | 5 | Lila MD | | TABLET | | | | | | | + + + + + + + + | HUMALOG | BS <150 - | | | INSULIN | 9919370597 | Tiesha | | 100 | No [...] 56 units | | | INSULIN | 0987143215 | Bailey W | | UNIT/ML | [...] | | | | | | | [facility] | + + + + + + [...] f/u DM | + + + + +---+---+---+---+ + [...] | Appointment | 01:15 PM | Hector Bradenhop DPM, [address] | | | | [address], | | | | [place], [address], | | | | | + + + + | Appointment | 03:30 PM | Ambrose Pascual DNP [facility], [address] | | | [address], | | | | [place], [address], | | | | | + + + + | Referral | | Ophthalmology Consult | | | | Huong Rose, | | | | [address], [place], | | | | [place], [address] | | | | | + + + + | Referral | | Ophthalmology Consult | | | | [facility], | | | | [address], [place], | | | | [place], [address] | | | | | + + + + | Referral | | Orthopedic Consult | | | | [facility] [place] [facility] | | | | Surg, [address], | | | | [place], [address] | | | | | + + + + | Referral | | Ophthalmology Consult | | | | Huong Rose, | | | | [address], [place], | | | | [place], [address] | | | | | + + + + | Referral | | Physical Therapy Evaluation | | | | [facility], [address] [facility] | | | | [address], [place], [address] | | | | | | | | | + + + + | Referral | | Podiatry Consult | | | | Hector Armendariz, | | | | [address] [facility] | | | | [address], [place], [place], | | | | [address] | | | | | + + + + | Referral | | [facility] | | | | Dian Atkins, [address] | | | [address], | | | | [place], [address] | | | | | + + + + +---+ + | | Referral excluded from report: | +---+ + + + + + | Referral | | [facility] | | | | Dian Atkins, [address] | | | [address], | | | | [place], [address] | | | | | + + [...] | + + + + + | [id number] | Overweight | | | + + + + + | [id number] | Overweight | | | + + + + + | [id number] | Overweight | | | + + + + + | CPT-27924 | Glucose by monitor | | | + + + + + | [id number] | Overweight | | | + + + + + | UA CULT IF MULTIPLE | Urinalysis Culture | | | | | If Indicat | | | + + + + + | GLYCO HGB 62725 | Glyco Hemoglobin, | | | | | A1C | | | + + + + + | CPT-21683 | UA Dipstick | | | + + + + + | CPT-49274 81832 | XR Knee WgtB Bilat | | | | | AP W 1-2V-Rt | | | + + + + + | [id number] | Overweight | | | + + + + + | GLYCO HGB 84581 | Glyco Hemoglobin, | | | | | A1C | | | + + + + + | CPT-25508 | Adm 1st Inj No | | | | | counseling or >18 | | | + + + + + | CPT-89992 | Prevnar 13 | | | | | (Pneumococcal >7 | | | + + + + + | [id number] | Overweight | | | + + + + + | CPT-85279 | Physical Therapy | | | | | Evaluation | | | + + + + + | CPT-39535 | Glucose by monitor | | | + + + + + | [id number] | Overweight | | | + + + + + | [id number] | Overweight | | | + + + + + | GLYCO HGB 63344 | Glyco Hemoglobin, | | | | | A1C | | | + + + + + | GLYCO HGB 99670 | Glyco Hemoglobin, | | | | | A1C | | | + + + + + | [id number]-[id number] | Overweight | | | + + + + + | RISK 83526 | Lipid Profile | | | + + + + + | GLYCO HGB 58322 | Glyco Hemoglobin, | | | | | A1C | | | + + + + + | CPT-16256 | IV infusion -1st hr | | | | | (Rehydration) | | | + + + + + | CPT-90506 | Glucose by monitor | | | + + + + + | CPT-04039 | UA Dipstick | | | + + + + + | CPT-41710 | DAISY Linick | | | + + + + + | CPT-08182 | Initial Psych | | | | | Evaluation | | | + + + + + +---+ + | | Order excluded from report: | +---+ + + + + + + | VIT D HYDR 08478 | Vit D, 25 hydroxy | | [...]
--- OUTSIDE RECORDS SUMMARY | ~2019-03-25 | XMS | Continuity of Care Document ---
Demographics + + + | Address | [address] | | | [place] [address] | + + + | Home Phone | | + + + | Preferred Language | Unknown | + + + | Marital Status | Unknown | + + + | Quaker Affiliation | Unknown | + + + | Race | Unknown | + + + | Ethnic Group | Unknown | + + + Author + + + | Author | [facility] | + + + | Organization | [facility] | + + + | Address | [address] | | | [place] [address] | + + + | Phone | Unavailable | + + + Support + + + + + | Name | Relationship | Address | Phone | + + + + + | Tiesha Nicolas | Caregiver | [address] | | | MD | | [place] [address] | | + + + + + | Emeka Clark MD | Caregiver | [address] | | | | | [place] [address] | | + + + + + | EVAN Florez | Caregiver | [facility] | | | [address] | | Medical | | | | | [place], [place] | | | | | [address] | | + + + + + | DOLORES DIANA | Next Of Kin | [address] | | | | | [place] [address] | | + + + + + Care Team Providers + + + + | Care Windows Server Engineer Name | Role | Phone | + + + + | EVAN Florez | Unavailable | | + + + + Insurance Providers + + + + + | Payer Name | Policy Number | Subscriber Name | Relationship | + + + + + | [employer] | [id number] | JULI ADALGISA | SELF | | PLAN | | | | + + + + + | MARY MCGRATH CROSS | [id number] | JULI PAREKHVERA | SELF | | PPO | | | | + + + + + Advance Directives + + + + | Directive | Response | Recorded Date/Time | + + + + | Status of Advance | Unknown | 08/10/16 9:12am | | Directive/ | | | + + + + | Information obtained from | N | 08/10/16 9:12am | | Patient? | | | + + + + | Library Assistant? | Y | 08/10/16 9:12am | + + + + | Name: | FRANCY HORTON | 08/10/16 9:12am | + + + + Problems Active Medical [...] | Acute worsening of | Unknown | 11/27/15 | Active | | stage 3 chronic [...] PO | Twice | 20 | | // | | naima | | | | [...] Each Day | | | | | (BYETTA) | | | | | | | [...] | Every 8 | 10 | | 07/16/16 | | sindy | | | | [...] | + + + + + | [place], Disposable | | Unknown | Discontinued | [...] Needed PRN NAUSEA | | | | Tab.elizabeth | | [...] Allergy | Unknown | | Active | 08/10/16 | + +---------+ + +--------+ + | morphine | Allergy | Mild | HALLUCINATIO | Active | 07/29/16 | | | | | N | | | + +---------+ + +--------+ + | ciprofloxaci | Allergy | Unknown | | Active | 08/10/16 | | n | | | | | | + +---------+ + +--------+ + Immunizations No Known History of Immunizations. Vital Signs + + + + | Vital Reading | Collection Date/Time | Result | + + + + | Blood Pressure | 08/10/16 11:27am | 148/91 | + + + + | Blood Pressure Source | 05/01/15 10:30am | Left Arm | + + + + | Patient Temperature | 08/10/16 8:53am | 98.1 | + + + + | Respiratory Rate | 08/10/16 11:27am | 18 | + + + + | Pulse Rate | 08/10/16 11:27am | 92 | + + + + | Bedside Pulse Oximetry | 08/10/16 11:27am | 100 | + + + + | Height | 08/10/16 8:56am | 154.9 cm | + + + + | Height | 08/10/16 8:56am | 5 ft 1 in | + + + + | Weight | 08/10/16 8:56am | 75.57 kg | + + + + | Weight | 08/10/16 8:56am | 166.6 lb | + + + + | Body Mass Index | 08/10/16 8:56am | 31.5 | + + + + Results Laboratory Results + +--------+-------+-------+ + + + + | Test | Result | Units | Flags | Referenc | Collecti | Result | Comments | | Name | | | | e | on | Date/Ernesto | | | | | | | | Date/Ernesto | e | | | | | | | | e | | | + +--------+-------+-------+ + + + + | POC | 202 | mg/dL | H | 70-99 | 08/10/16 | 08/10/16 | Notified | | Glucose | | | | | 8:58am | 9:00am | | | (mg/dL) | | | | | | | [facility] | | | | | | | | | rVEN | + +--------+-------+-------+ + + + + | Iron | 61 | ug/dL | | 50-170 | 08/03/16 | 08/03/16 | | | Level | | | | | 9:30am | 2:30pm | | + +--------+-------+-------+ + + + + | Total | 296 | ug/dL | | 250-450 | 08/03/16 | 08/03/16 | | | Iron | | | | | 9:30am | 2:30pm | | | Binding | | | | | | | | | Capacity | | | | | | | | + +--------+-------+-------+ + + + + | Percent | 20.6 | % | | 15.0-50. | 08/03/16 | 08/03/16 | | | Iron | | | | 0 | 9:30am | 2:30pm | | | Saturati | | | | | | | | | on | | | | | | | | + +--------+-------+-------+ + + + + | Ferritin | 178 | ng/mL | | 8-252 | 08/03/16 | 08/03/16 | | | | | | | | 9:30am | 2:30pm | | + +--------+-------+-------+ + + + + Procedures No Known History of Procedures. Encounters + + + + + + | Encounter | Location | Arrival/Admit | Discharge/Depar | Attending | | | | Date | t Date | Provider | + + + + + + | Departed | [facility] | 08/10/16 8:15am | 08/10/16 | Emeka Clark | | Surgical Day | [facility] | | 11:14am | MD | | Care | | | | | + + + + + + | Registered | [facility] | 08/03/16 9:36am | | EVAN Florez | | Referral | [facility] - | | | [facility] | + + + + + + + + + | Encounter Diagnosis | Onset Date | + + + | Neurological symptoms | | + + + | Vertigo | | + + + | Pyelonephritis | | + + + | Constipation | | + + + | SOB (shortness of breath) | | + + + | ARF (acute renal failure) | | + + + | Acute worsening of stage 3 chronic kidney | | | disease | | + + + | Malignant neoplasm of gum, unspecified | | + + + | Prophylactic use of low molecular weight | | | heparin for venous thromboembolism | | + + + | GI bleed | | + + + | Nausea & vomiting | | + + + | Pain due to dental caries | | + + + | Dizziness | | + + + | Dehydration | | + + + | UTI (urinary tract infection) | | + + + | Vomiting | | + + + | Altered mental state | | + + + | Weakness | | + + + | Chronic renal disease | | + + +"
--- OUTSIDE RECORDS SUMMARY | ~2019-03-25 | XMS | Continuity of Care Document ---
Demographics + + + | Address | [address] | | | [place] [address] | + + + | Home Phone | | + + + | Preferred Language | Unknown | + + + | Marital Status | Unknown | + + + | Mormon Affiliation | Unknown | + + + | Race | Unknown | + + + | Ethnic Group | Unknown | + + + Author + + + | Author | [facility] | + + + | Organization | [facility] | + + + | Address | [address] | | | [place] [address] | + + + | Phone | Unavailable | + + + Support + + + + + | Name | Relationship | Address | Phone | + + + + + | Provider, ED | Caregiver | [address] [place] | | | | [place] | | | | | [address] | | + + + + + | Mahamed Duke | Caregiver | Emergency | | | DO | | [place], | | | | | [place] [address] | | + + + + + | Tiesha Nicolas | Caregiver | [address] | | | MD | | [place] [address] | | + + + + + | ALFONZO ARAUJO | Caregiver | [address] | | | | | [place], [place] | | | | | [address] | | + + + + + | Nora Davidson | Caregiver | Emergency Services | | | [place] | | [place] [address] | | + + + + + | DOLORES DIANA | Next Of Kin | [address] | | | | | [place] [address] | | + + + + + Care Team Providers + + + + | Care Building Illuminating Engineer Name | Role | Phone | + + + + | Tiesha Nicolas MD | Unavailable | | + + + + Insurance Providers + + + + + | Payer Name | Policy Number | Subscriber Name | Relationship | + + + + + | [employer] | [id number] | JULI DIANA | SELF | | PLAN | | | | + + + + + | MARY NOLEN | [id number] | JULI DIANA | SELF | | (SUPPLEMENT) | | | | + + + + + Chief Complaint and Reason for Visit + + + | Reason for Visit | DIABETIC PROBLEM CONFUSION | + + + Problems Active Medical [...] + +------+-------+-------+ + + + + | CIPROFLO | 250 | MG | PO | Twice | 7 Days | | 07/11/16 | | XACIN | | | | Each Day | | | | | HCL | | | | For | | | | | (CIPRO) | | | | infectio | | | | | 250 MG | | | | n | | | | | TABLET | [...] + + + + | Gabapent | 3 | CAP | PO | At | | | | | in | | | | Bedtime | | | | | (Neuront | | | | | | | | | in) 300 | | | | | | | | | MG CAP [...] | + + + + + | [place], Disposable | | Unknown | Discontinued | [...] | Capsule. | | | | | Capsule.dr, 40 [...] Needed PRN NAUSEA | | | | Tab.maitedis | | | | | Tab.elizabeth, 1 [...] + + + | Discharge Date | 07/11/16 | + + + | Disposition | HOME | + + + | Condition at Discharge | Good | + + + | Instructions/Education Provided | Urinary Tract Infection | + + + | Prescriptions | See Medications Section | + + + | Referrals | Tiesha Nicolas MD - | + + + | Additional Instructions/Education | FOLLOW-UP WITH PMD IN 2-3 DAYS. RETURN TO | | | ED IF WORSENS SYMPTOMS. TAKINGMEDICATIONS | | | PRESCRIBED. DRINK PLENTY OF FLUIDS. | + + + Functional Status No functional status results. Allergies, Adverse Reactions, Alerts + +---------+ + +--------+ + | Allergen | Type | Severity | Reaction | Status | Last Updated | + +---------+ + +--------+ + | hydrocodone | Allergy | Mild | HALLUCINATIO | Active | 07/11/16 | | bit | | | NS | | | + +---------+ + +--------+ + | morphine | Allergy | Mild | HALLUCINATIO | Active | 07/11/16 | | | | | N | | | + +---------+ + +--------+ + Immunizations No Known History of Immunizations. Vital Signs + + + + | Vital Reading | Collection Date/Time | Result | + + + + | Blood Pressure | 07/11/16 8:37pm | 134/74 | + + + + | Blood Pressure Source | 05/01/15 10:30am | Left Arm | + + + + | Patient Temperature | 07/11/16 2:38pm | 77 | + + + + | Temperature Source | 07/11/16 2:38pm | Temporal | + + + + | Respiratory Rate | 02/15/17 8:37pm | 16 | + + + + | Pulse Rate | 07/11/16 8:37pm | 87 | + + + + | Bedside Pulse Oximetry | 07/11/16 8:37pm | 97 | + + + + | Height | 07/11/16 2:38pm | 5 ft 1 in | + + + + | Weight | 07/11/16 2:38pm | 72.12 kg | + + + + | Weight | 07/11/16 2:38pm | 159 lb | + + + + | Body Mass Index | 07/11/16 2:38pm | 30.0 | + + + + Results Laboratory [...] +--------+ +-------+ + + + + | Bedside | 142 | mmol/L | | 135-148 | 07/11/16 | 07/11/16 | | | Sodium | | | | | 8:07pm | 8:10pm | | + +--------+ +-------+ + + + + | Bedside | 4.0 | mmol/L | | 3.5-5.5 | 07/11/16 | 07/11/16 | | | Potassiu | | | | | 8:07pm | 8:10pm | | | m | | | | | | | | + +--------+ +-------+ + + + + | Bedside | 102 | mmol/L | | 98-108 | 07/11/16 | 07/11/16 | | | Chloride | | | | | 8:07pm | 8:10pm | | + +--------+ +-------+ + + + + | Bedside | 27 | mmol/L | | 21-32 | 07/11/16 | 07/11/16 | | | Total | | | | | 8:07pm | 8:10pm | | | CO2 | | | | | | | | + +--------+ +-------+ + + + + | POC | 273 | mg/dL | H | 70-99 | 07/11/16 | 07/11/16 | | | Glucose | | | | | 8:07pm | 8:10pm | | | (mg/dL) | | | | | | | | + +--------+ +-------+ + + + + | Bedside | 38 | mg/dL | H | 7-22 | 07/11/16 | 07/11/16 | | | Blood | | | | | 8:07pm | 8:10pm | | | Urea | | | | | | | | | Nitrogen | | | | | | | | + +--------+ +-------+ + + + + | Bedside | 1.9 | mg/dL | H | 0.6-1.0 | 07/11/16 | 07/11/16 | | | Creatini | | | | | 8:07pm | 8:10pm | | | ne | | | | | | | | + +--------+ +-------+ + + + + | Bedside | 1.13 | mmol/L | | 1.10-1.4 | 07/11/16 | 07/11/16 | | | Ionized | | | | 6 | 8:07pm | 8:10pm | | | Calcium | | | | | | | | | (Calc) | | | | | | | | | LAB | | | | | | | | + +--------+ +-------+ + + + + | Bedside | 11.6 | g/dL | L | 12.0-16. | 07/11/16 | 07/11/16 | | | Hemoglob | | | | 0 | 8:07pm | 8:10pm | | | in | | | | | | | | + +--------+ +-------+ + + + + | Bedside | 34.0 | % | L | 36.0-46. | 07/11/16 | 07/11/16 | | | Hematocr | | | | 0 | 8:07pm | 8:10pm | | | it | | | | | | | | + +--------+ +-------+ + + + + | Ammonia | 27 | umol/L | | 11-35 | 07/11/16 | 07/11/16 | | | | | | | | 5:30pm | 6:00pm | | + +--------+ +-------+ + + + + | Urine | Clean | | | | 07/11/16 | 07/11/16 | | | Source | Catch | | | | 5:16pm | 6:08pm | | + +--------+ +-------+ + + + + | Urine | Pale | | | P-Yellow | 07/11/16 | 07/11/16 | | | Color | Yellow | | | | 5:16pm | 6:08pm | | + +--------+ +-------+ + + + + | Urine | Hazy | | * | Clear | 07/11/16 | 07/11/16 | | | Appearan | | | | | 5:16pm | 6:08pm | | | ce | | | | | | | | + +--------+ +-------+ + + + + | Urine | 1.010 | | | 1.003-1. | 07/11/16 | 07/11/16 | | | Specific | | | | 022 | 5:16pm | 6:08pm | | | [place] | | | | | | | | + +--------+ +-------+ + + + + | Urine pH | 6.0 | | | 5.0-8.0 | 07/11/16 | 07/11/16 | | | | | | | | 5:16pm | 6:08pm | | + +--------+ +-------+ + + + + | Urine | 1+ | | * | Neg | 07/11/16 | 07/11/16 | | | Leukocyt | | | | | 5:16pm | 6:08pm | | | e | | | | | | | | | Esterase | | | | | | | | + +--------+ +-------+ + + + + | Urine | Pos | | * | Neg | 07/11/16 | 07/11/16 | | | Nitrite | | | | | 5:16pm | 6:08pm | | + +--------+ +-------+ + + + + | Urine | Neg | | | Neg | 07/11/16 | 07/11/16 | | | Protein | | | | | 5:16pm | 6:08pm | | + +--------+ +-------+ + + + + | Urine | 4+ | | * | Neg | 07/11/16 | 07/11/16 | | | Glucose | | | | | 5:16pm | 6:08pm | | + +--------+ +-------+ + + + + | Urine | Neg | | | Neg | 07/11/16 | 07/11/16 | | | Ketones | | | | | 5:16pm | 6:08pm | | + +--------+ +-------+ + + + + | Urine | NORM | | | Normal | 07/11/16 | 07/11/16 | | | Urobilin | | | | | 5:16pm | 6:08pm | | | ogen | | | | | | | | + +--------+ +-------+ + + + + | Urine | Neg | | | Neg | 07/11/16 | 07/11/16 | | | Bilirubi | | | | | 5:16pm | 6:08pm | | | n | | | | | | | | + +--------+ +-------+ + + + + | Urine | Neg | | | Neg | 07/11/16 | 07/11/16 | | | Blood | | | | | 5:16pm | 6:08pm | | + +--------+ +-------+ + + + + | Urine | 10-25 | /hpf | * | 0-5 | 17 | 07/11/16 | | | WBC | | | | | 5:16pm | 6:12pm | | + +--------+ +-------+ + + + + | Urine | 0-2 | /hpf | | 0-2 | 07/11/16 | 07/11/16 | | | RBC | | | | | 5:16pm | 6:12pm | | + +--------+ +-------+ + + + + | Urine | Rare | /hpf | | Few | 07/11/16 | 07/11/16 | | | Squamous | | | | | 5:16pm | 6:12pm | | | | | | | | | | | | Epitheli | | | | | | | | | al Cells | | | | | | | | + +--------+ +-------+ + + + + | Urine | Many | /hpf | * | None | 07/11/16 | 07/11/16 | | | Bacteria | | | | | 5:16pm | 6:12pm | | + +--------+ +-------+ + + + + | Urine | Yes | | * | No | 07/11/16 | 07/11/16 | | | Culture | | | | | 5:16pm | 6:08pm | | | Indicate | | | | | | | | | d | | | | | | | | + +--------+ +-------+ + + + + | POC | 353 | mg/dL | H | 70-99 | 07/11/16 | 07/11/16 | CAP | | Glucose | | | | | 2:56pm | 3:00pm | | | (mg/dL) | | | | | | | | + +--------+ +-------+ + + + + | White | 4.22 | K/mm3 | | 4.00-11. | 07/11/16 | 07/11/16 | | | Blood | | | | 30 | 2:55pm | 3:21pm | | | Count | | | | | | | | + +--------+ +-------+ + + + + | Red | 4.05 | M/mm3 | | 3.80-5.2 | 07/11/16 | 07/11/16 | | | Blood | | | | 0 | 2:55pm | 3:21pm | | | Count | | | | | | | | + +--------+ +-------+ + + + + | Hemoglob | 11.7 | g/dL | | 11.5-16. | 07/11/16 | 07/11/16 | | | in | | | | 0 | 2:55pm | 3:21pm | | + +--------+ +-------+ + + + + | Hematocr | 34.8 | % | | 33.0-51. | 07/11/16 | 07/11/16 | | | it | | | | 0 | 2:55pm | 3:21pm | | + +--------+ +-------+ + + + + | Mean | 86 | fL | | 80-100 | 07/11/16 | 07/11/16 | | | Corpuscu | | | | | 2:55pm | 3:21pm | | | lar | | | | | | | | | Volume | | | | | | | | + +--------+ +-------+ + + + + | Mean | 28.9 | pg | | 26.0-34. | 07/11/16 | 07/11/16 | | | Corpuscu | | | | 0 | 2:55pm | 3:21pm | | | lar | | | | | | | | | Hemoglob | | | | | | | | | in | | | | | | | | + +--------+ +-------+ + + + + | Mean | 33.6 | g/dL | | 31.5-36. | 07/11/16 | 07/11/16 | | | Corpuscu | | | | 5 | 2:55pm | 3:21pm | | | lar | | | | | | | | | Hemoglob | | | | | | | | | in | | | | | | | | | Concent | | | | | | | | + +--------+ +-------+ + + + + | RDW | 41.1 | fL | | 35.1-46. | 07/11/16 | 07/11/16 | | | Standard | | | | 3 | 2:55pm | 3:21pm | | | | | | | | | | | | Deviatio | | | | | | | | | n | | | | | | | | + +--------+ +-------+ + + + + | RDW | 13.3 | % | | 11.7-14. | 07/11/16 | 07/11/16 | | | Coeffici | | | | 2 | 2:55pm | 3:21pm | | | ent of | | | | | | | | | Variatio | | | | | | | | | n | | | | | | | | + +--------+ +-------+ + + + + | Platelet | 118 | K/mm3 | L | 150-400 | 07/11/16 | 07/11/16 | | | Count | | | | | 2:55pm | 3:21pm | | + +--------+ +-------+ + + + + | Mean | 12.9 | fL | H | 9.1-12.4 | 07/11/16 | 07/11/16 | | | Platelet | | | | | 2:55pm | 3:21pm | | | Volume | | | | | | | | + +--------+ +-------+ + + + + | Differen | Auto | | | | 07/11/16 | 07/11/16 | | | tial | | | | | 2:55pm | 3:21pm | | | Method | | | | | | | | + +--------+ +-------+ + + + + | Neutroph | 57 | % | | 41-73 | 07/11/16 | 07/11/16 | | | ils (%) | | | | | 2:55pm | 3:21pm | | | (Auto) | | | | | | | | + +--------+ +-------+ + + + + | Lymphocy | 32 | % | | 21-46 | 07/11/16 | 07/11/16 | | | serge (%) | | | | | 2:55pm | 3:21pm | | | (Auto) | | | | | | | | + +--------+ +-------+ + + + + | Monocyte | 8 | % | | 4-13 | 07/11/16 | 07/11/16 | | | s (%) | | | | | 2:55pm | 3:21pm | | | (Auto) | | | | | | | | + +--------+ +-------+ + + + + | Eosinoph | 3 | % | | 0-6 | 07/11/16 | 07/11/16 | | | ils (%) | | | | | 2:55pm | 3:21pm | | | (Auto) | | | | | | | | + +--------+ +-------+ + + + + | Basophil | 1 | % | | 0-2 | 07/11/16 | 07/11/16 | | | s (%) | | | | | 2:55pm | 3:21pm | | | (Auto) | | | | | | | | + +--------+ +-------+ + + + + | Immature | 0 | % | | 0-1 | 07/11/16 | 07/11/16 | | | | | | | | 2:55pm | 3:21pm | | | Granuloc | | | | | | | | | yte % | | | | | | | | | (Auto) | | | | | | | | + +--------+ +-------+ + + + + | Nucleate | 0.0 | /100 WBC | | 0.0-0.2 | 07/11/16 | 07/11/16 | | | d Red | | | | | 2:55pm | 3:21pm | | | Blood | | | | | | | | | Cells % | | | | | | | | + +--------+ +-------+ + + + + | Absolute | 2.41 | K/mm3 | | 1.96-9.1 | 07/11/16 | 07/11/16 | | | | | | | 5 | 2:55pm | 3:21pm | | | Neutroph | | | | | | | | | ils | | | | | | | | | (auto) | | | | | | | | + +--------+ +-------+ + + + + | Absolute | 1.33 | K/mm3 | | 0.84-5.2 | 07/11/16 | 07/11/16 | | | | | | | 0 | 2:55pm | 3:21pm | | | Lymphocy | | | | | | | | | serge | | | | | | | | | (auto) | | | | | | | | + +--------+ +-------+ + + + + | Absolute | 0.32 | K/mm3 | | 0.16-1.4 | 07/11/16 | 07/11/16 | | | | | | | 7 | 2:55pm | 3:21pm | | | Monocyte | | | | | | | | | s (auto) | | | | | | | | + +--------+ +-------+ + + + + | Absolute | 0.14 | K/mm3 | | 0.00-0.6 | 07/11/16 | 07/11/16 | | | | | | | 8 | 2:55pm | 3:21pm | | | Eosinoph | | | | | | | | | ils | | | | | | | | | (auto) | | | | | | | | + +--------+ +-------+ + + + + | Absolute | 0.02 | K/mm3 | | 0.00-0.2 | 07/11/16 | 07/11/16 | | | | | | | 3 | 2:55pm | 3:21pm | | | Basophil | | | | | | | | | s (auto) | | | | | | | | + +--------+ +-------+ + + + + | Absolute | 0.00 | K/mm3 | | 0.00-0.1 | 07/11/16 | 07/11/16 | | | | | | | 0 | 2:55pm | 3:21pm | | | Immature | | | [...] 0.00 | K/mm3 | | 0.00-0.0 | 07/11/16 | 07/11/16 | | | d RBC | | | | 2 | 2:55pm | 3:21pm | | | Absolute | | | | | | | | | Count | | | | | | | | | (auto) | | | | | | | | + +--------+ +-------+ + + + + | Sodium | 140 | mmol/L | | 136-145 | 07/11/16 | 07/11/16 | | | Level | | | | | 2:55pm | 3:46pm | | + +--------+ +-------+ + + + + | Potassiu | 4.3 | mmol/L | | 3.5-5.5 | 07/11/16 | 07/11/16 | | | m Level | | | | | 2:55pm | 3:46pm | | + +--------+ +-------+ + + + + | Chloride | 102 | mmol/L | | 98-108 | 07/11/16 | 07/11/16 | | | Level | | | | | 2:55pm | 3:46pm | | + +--------+ +-------+ + + + + | Carbon | 27 | mmol/L | | 21-32 | 07/11/16 | 07/11/16 | | | Dioxide | | | | | 2:55pm | 3:46pm | | | Level | | | | | | | | + +--------+ +-------+ + + + + | Anion | 11 | mmol/L | | 6-16 | 07/11/16 | 07/11/16 | | | Gap | | | | | 2:55pm | 3:46pm | | + +--------+ +-------+ + + + + | Glucose | 333 | mg/dL | H | 70-99 | 07/11/16 | 07/11/16 | | | Level | | | | | 2:55pm | 3:46pm | | + +--------+ +-------+ + + + + | Blood | 42 | mg/dL | H | 8-24 | 07/11/16 | 07/11/16 | | | Urea | | | | | 2:55pm | 3:46pm | | | Nitrogen | | | | | | | | + +--------+ +-------+ + + + + | Creatini | 2.10 | mg/dL | H | 0.40-1.0 | 07/11/16 | 07/11/16 | | | ne | | | | 0 | 2:55pm | 3:46pm | | + +--------+ +-------+ + + + + | BUN/Crea | 20.0 | % | | 12.0-20. | 07/11/16 | 07/11/16 | | | tinine | | | | 0 | 2:55pm | 3:46pm | | | Ratio | | | | | | | | + +--------+ +-------+ + + + + | Glomerul | 25 | | L | 60- | 07/11/16 | 07/11/16 | Non-Afri | | ar | | | | | 2:55pm | 3:46pm | can | | Filtrati | | | | | | | [place] | | on Rate | | | | | | | GFR | | Calc | | | | | | | CalcFor | | | | | | | | | | | | | | | | | | [place] | | | | | | | [...] + + + + | Calcium | 9.5 | mg/dL | | 8.5-10.1 | 07/11/16 | 07/11/16 | | | Level | | | | | 2:55pm | 3:46pm | | + +--------+ +-------+ + + + + | Total | 7.2 | g/dL | | 6.4-8.2 | 07/11/16 | 07/11/16 | | | Protein | | | | | 2:55pm | 3:46pm | | + +--------+ +-------+ + + + + | Albumin | 3.4 | g/dL | | 3.4-5.0 | 07/11/16 | 07/11/16 | | | | | | | | 2:55pm | 3:46pm | | + +--------+ +-------+ + + + + | Globulin | 3.8 | g/dL | | 2.2-4.0 | 07/11/16 | 07/11/16 | | | | | | | | 2:55pm | 3:46pm | | + +--------+ +-------+ + + + + | Albumin/ | 0.9 | | | 0.8-1.8 | 07/11/16 | 07/11/16 | | | Globulin | | | | | 2:55pm | 3:46pm | | | Ratio | | | | | | | | + +--------+ +-------+ + + + + | Total | 0.3 | mg/dL | | 0.1-1.0 | 07/11/16 | 07/11/16 | | | Bilirubi | | | | | 2:55pm | 3:46pm | | | n | | | | | | | | + +--------+ +-------+ + + + + | Alkaline | 116 | U/L | | 50-136 | 07/11/16 | 07/11/16 | | | | | | | | 2:55pm | 3:46pm | | | Phosphat | | | | | | | | | ase | | | | | | | | + +--------+ +-------+ + + + + | Aspartat | 67 | U/L | H | 12-37 | 07/11/16 | 07/11/16 | | | e Amino | | | | | 2:55pm | 3:46pm | | | Transf | | | | | | | | | (AST/SGO | | | | | | | | | T) | | | | | | | | + +--------+ +-------+ + + + + | Alanine | 63 | U/L | | 12-78 | 07/11/16 | 07/11/16 | | | Aminotra | | | | | 2:55pm | 3:46pm | | | nsferase | | | [...] + | Departed | [facility] | 07/11/16 2:21pm | 07/11/16 8:38pm | Mahamed Duke | | Emergency | [facility] [place] | | | J DO | + + + + + + + + | Encounter Diagnosis | + + | Urinary tract infection | + +"
--- OUTSIDE RECORDS SUMMARY | ~2019-03-25 | XMS | Clinical Summary ---
Demographics + + + | Address | [address] [place] [address] | | | [place] [address] | + + + | Home Phone | | + + + | Preferred Language | Unknown | + + + | Marital Status | D | + + + | Buddhist Affiliation | Unknown | + + + | Race | White | + + + | Ethnic Group | or | + + + Author + + + | Author | [facility] | + + + | Organization | [facility] | + + + | Address | [address] | | | [place], [place] [address] | + + + | Phone | Unavailable | + + + Care Team Providers + +------+ + | Care Dye Tank Tender Name | Role | Phone | [...] tion | | +---------+---------+---------+---------+---------+---------+---------+---------+---------+ | VACCINA | [id number] | | Active | | [facility]rose | | Medicat | | | TION | 02 | / | | /03 | [place] | | ion | | | FOR | (SNOMED | | | | DNP TUNNEL KILN FIRER | | given | | | STREP [...] | | | +---------+---------+---------+---------+---------+---------+---------+---------+---------+ | OSTEOAR | [id number] | | Active | | Edna | | Osteoar | | | THRITIS | 07 | /16 | | /18 | Hope | | thritis | | | , KNEE, | (SNOMED | | | | [facility]MA | | of | | | RIGHT | CT) | | | | | | knee | | +---------+---------+---------+---------+---------+---------+---------+---------+---------+ | CONSTIP | [id number] | | Active | | Ambrose | | Constip | | | ATION | 8 | / | | /13 | [place] | | ation | | | | (SNOMED | | | | DNP TUNNEL KILN FIRER | | | | | | CT) | | | | | | | | +---------+---------+---------+---------+---------+---------+---------+---------+---------+ | TYPE 2 | E11.21 | | Active | | [facility]rose | | Type 2 | | | DIABETE | (ICD-10 | / | | | Ankur | | diabete | | | S | -CM) | | | | DNP TUNNEL KILN FIRER | | s | | | MELLITU [...] athy | | +---------+---------+---------+---------+---------+---------+---------+---------+---------+ | DIABETE | [id number] | | Inactiv | | Ambrose | | Type 2 | | | S | 6 | /08 | e | /08 | [place] | | diabete | | | MELLITU | (SNOMED | | | | DNP TUNNEL KILN FIRER | | s | | | S, TYPE | CT) | | | | | | mellitu | | | II, ON | | | | | | | s | | | | | | | | | | | | | INSULIN | | | | | | | | | +---------+---------+---------+---------+---------+---------+---------+---------+---------+ | DEHYDRA | [id number] | | Resolve | | Ambrose | | Dehydra | | | TION | 6 | / | d | /08 | [place] | | tion | | | | (SNOMED | | | | DNP TUNNEL KILN FIRER | | | | | | CT) | | | | | | | | +---------+---------+---------+---------+---------+---------+---------+---------+---------+ | DIZZINE | [id number] | | Inactiv | | Ambrose | | Dizzine | | | SS | 03 | /08 | e | /08 | [place] | | ss | | | | (SNOMED | | | | DNP TUNNEL KILN FIRER | | | | | | CT) | | | | | | | | +---------+---------+---------+---------+---------+---------+---------+---------+---------+ | ANEMIA | [id number] | | Inactiv | | Ambrose | | Anemia | | | | 00 | /10 | e | /10 | [place] | | | | | | (SNOMED | | | | DNP TUNNEL KILN FIRER | | | | | | CT) | | | | | | | | +---------+---------+---------+---------+---------+---------+---------+---------+---------+ | CONSTIP | [id number] | | Inactiv | | Ambrose | | Constip | | | ATION | 8 | / | e | / | [place] | | ation | | | | (SNOMED | | | | DNP TUNNEL KILN FIRER | | | | | | CT) | | | | | | | | +---------+---------+---------+---------+---------+---------+---------+---------+---------+ | SYNCOPE | [id number] | | Resolve | | Ambrose | | Syncope | | | | 07 | | d | / | [place] | | | | | | (SNOMED | | | | DNP TUNNEL KILN FIRER | | | | | | CT) | | | | | | | | +---------+---------+---------+---------+---------+---------+---------+---------+---------+ | DYSPHAG | R13.10 | | Resolve | | Ambrose | | Dysphag | | | IA | (ICD-10 | | d | /26 | [place] | | ia, | | | UNSPECI | -CM) | | | | DNP TUNNEL KILN FIRER | | unspeci | | | FIED | | | | | | | fied | | +---------+---------+---------+---------+---------+---------+---------+---------+---------+ | PARESTH | [id number] | | Inactiv | | Ambrose | | Paresth | | | ESIA, | | | e | | [place] | | esia of | | | HANDS | (SNOMED | | | | DNP TUNNEL KILN FIRER | | hand | | | | CT) | | | | | | | | +---------+---------+---------+---------+---------+---------+---------+---------+---------+ | DIABETI | [id number] | | Inactiv | | Ambrose | | Diabeti | | | C | | | e | | [place] | | c | | | PERIPHE | (SNOMED | | | | DNP TUNNEL KILN FIRER | | periphe | | | RAL [...] | -CM) | | | | DNP TUNNEL KILN FIRER | | unspeci | | | FIED | | | | | | | fied | | +---------+---------+---------+---------+---------+---------+---------+---------+---------+ | VAGINIT | [id number] | | Resolve | | Ambrose | | Vaginit | | | IS | 1 | /31 | d | /31 | [place] | | is | | | | (SNOMED | | | | DNP TUNNEL KILN FIRER | | | | | | CT) | | | | | | | | +---------+---------+---------+---------+---------+---------+---------+---------+---------+ | DYSURIA | [id number] | | Resolve | | Ambrose | | Dysuria | | | | 1 | /31 | d | /31 | [place] | | | | | | (SNOMED | | | | DNP TUNNEL KILN FIRER | | | | | | CT) | | | | | | | | +---------+---------+---------+---------+---------+---------+---------+---------+---------+ | EDEMA | [id number] | | Inactiv | | Ambrose | | Edema | | | | 08 | | e | / | [place] | | | | | | (SNOMED | | | | DNP TUNNEL KILN FIRER | | | | | | CT) | | | | | | | | +---------+---------+---------+---------+---------+---------+---------+---------+---------+ | RENAL | [id number] | | Inactiv | | Ambrose | | Acute | | | FAILURE | 1 | | e | / | [place] | | renal | | | , ACUTE | (SNOMED | | | | DNP TUNNEL KILN FIRER | | failure | | | | CT) | | | | | | | | | | | | | | | | syndrom | | | | | | | | | | e | | +---------+---------+---------+---------+---------+---------+---------+---------+---------+ | DIABETE | [id number] | | Inactiv | | Ambrose | | Periphe | | | S | 02 | / | e | / | [place] | | ral | | | MELLITU | (SNOMED | | | | DNP TUNNEL KILN FIRER | | circula | | | S, [...] | -CM) | | | | DNP TUNNEL KILN FIRER | | s | | | DIABETI [...] ropathy | | +---------+---------+---------+---------+---------+---------+---------+---------+---------+ | LOCALIZ | [id number] | | Resolve | | [facility] | | Disorde | | | ED | 09 | /30 | d | /30 | [place] | | r of | | | SWELLIN | (SNOMED | | | | DNP TUNNEL KILN FIRER | | forearm | | | G [...] | | | +---------+---------+---------+---------+---------+---------+---------+---------+---------+ | UTI | [id number] | | Resolve | | Ambrose | | Urinary | | | | 5 | /13 | d | /13 | [place] | | tract | | | | (SNOMED | | | | DNP TUNNEL KILN FIRER | | infecti | | | | [...] | -CM) | | | | DNP TUNNEL KILN FIRER | | s | | | MELLITU [...] athy | | +---------+---------+---------+---------+---------+---------+---------+---------+---------+ | DEMENTI | [id number] | | Inactiv | | Ambrose | | Procedu | | | A | | / | e | | [place] | | re | | | SCREENI | (SNOMED | | | | DNP TUNNEL KILN FIRER | | carried | | | NG | CT) | | | | | | out on | | | | | | | | | | | | | | | | | | | | subject | | +---------+---------+---------+---------+---------+---------+---------+---------+---------+ | CHANGE | [id number] | | Inactiv | | Ambrose | | Altered | | | IN | 9 | / | e | /13 | [place] | | bowel | | | BOWEL | (SNOMED | | | | DNP TUNNEL KILN FIRER | | functio | | | HABITS | CT) | | | | | | n | | +---------+---------+---------+---------+---------+---------+---------+---------+---------+ | MILD | [id number] | | Inactiv | | [facility] | | Mild | | | COGNITI | | | e | | [place] | | cogniti | | | VE | (SNOMED | | | | DNP TUNNEL KILN FIRER | | ve | | | IMPAIRM | CT) | | | | | | disorde | | | ENT | | | | | | | r | | +---------+---------+---------+---------+---------+---------+---------+---------+---------+ | DIABETE | [id number] | | Inactiv | | Ambrose | | Diabeti | | | S | 595925 | /11 | e | / | [place] | | c | | | MELLITU | (SNOMED | | | | DNP TUNNEL KILN FIRER | | periphe | | | S, [...] fied | | +---------+---------+---------+---------+---------+---------+---------+---------+---------+ | DIABETE | [id number] | | Active | | David W | | Diabeti | | | S | [id number] | /15 | | /15 | Theen [...] s | | +---------+---------+---------+---------+---------+---------+---------+---------+---------+ | MUSCLE | [id number] | | Active | | Christen | | Muscle | | | PAIN | 1 | 07 | | /07 | J. | | pain | | | | (SNOMED | | | | [place] | | | | | | CT) | | | | ta TUNNEL KILN FIRER | | | | +---------+---------+---------+---------+---------+---------+---------+---------+---------+ | DIABETE | [id number] | | Removed | | David W | | Diabeti | | | S | 131188 | | | | Theen | | [...] s | | +---------+---------+---------+---------+---------+---------+---------+---------+---------+ | MILD | [id number] | | Removed | | Maulik | [...] uterus | | +---------+---------+---------+---------+---------+---------+---------+---------+---------+ | COLONIC | 8970085 | | Active | | Emeka | [...] | | | +---------+---------+---------+---------+---------+---------+---------+---------+---------+ | CONSTIP | [id number] | | Removed | | Emeka | | Constip | | | ATION | 8 | /13 | | /13 | Petre | | ation | | | | (SNOMED | | | | MD | | | | | | CT) | | | | | | | | +---------+---------+---------+---------+---------+---------+---------+---------+---------+ | CHANGE | [id number] | | Removed | | Emeka | | Altered | | | IN | 9 | /13 | | /13 | Petre | | bowel | | | BOWEL | (SNOMED | | | | MD | | functio | | | HABITS | CT) | | | | | | n | | +---------+---------+---------+---------+---------+---------+---------+---------+---------+ | DECREAS | 3547598 | | Active | | Emeka | | Decreas | | | ED | 6 | 13 | | 13 | Petre | | e in | | | APPETIT | (SNOMED | | | | MD | | appetit | | | E | CT) | | | | | | e | | +---------+---------+---------+---------+---------+---------+---------+---------+---------+ | WEIGHT | 8005697 | | Active | | Emeka | | Abnorma | | | LOSS | 01 | | | 13 | Petre | | l | | | ABNORMA | (SNOMED | | | | MD | | weight | | | L | CT) | | | | | | loss | | +---------+---------+---------+---------+---------+---------+---------+---------+---------+ | NAUSEA | 7920494 | | Active | | Emeka | | Nausea | | | ALONE | 07 | /13 | | /13 | Petre | | | | | | (SNOMED | | | | MD | | | | | | CT) | | | | | | | | +---------+---------+---------+---------+---------+---------+---------+---------+---------+ | RECTAL | 7141682 | | Active | | Emeka | | Rectal | | | BLEEDIN | 2 | /13 | | /13 | Petre | | hemorrh | | | G | (SNOMED | | | | MD | | age | | | | CT) | | | | | | | | +---------+---------+---------+---------+---------+---------+---------+---------+---------+ | DEMENTI | 1433524 | | Active | | Christen | | Dementi | | | A | 6 | /10 | | /10 | J. | | a | | | WITHOUT | (SNOMED | | | | [place] | | | | | | CT) | | | | ta TUNNEL KILN FIRER | | | | | BEHAVIO | | | | | | | | | | RAL | | | | | | | | | | DISTURB | | | | | | | | | | ANCE | | | | | | | | | +---------+---------+---------+---------+---------+---------+---------+---------+---------+ | CHRONIC | 6881259 | | Active | | Christen | | Chronic | | | | 03 | /10 | | /10 | J. | | | | | PROGRES | (SNOMED | | | | [place] | | progres | | | SIVE | CT) | | | | ta TUNNEL KILN FIRER | | sive | | | RENAL | | | | | | | renal | | | FAILURE | | | | | | | failure | | +---------+---------+---------+---------+---------+---------+---------+---------+---------+ | ANEMIA | 1493089 | | Removed | | Christen | | Anemia | | | | 00 | /10 | | /10 | J. | | | | | | (SNOMED | | | | [place] | | | | | | CT) | | | | ta TUNNEL KILN FIRER | | | | +---------+---------+---------+---------+---------+---------+---------+---------+---------+ | DEMENTI | 3890281 | | Removed | | Christen | | Procedu | | | A | 03 | / | | / | J. | | re | | | SCREENI | (SNOMED | | | | [place] | | carried | | | NG | CT) | | | | ta TUNNEL KILN FIRER | | out on | | | | | | | | | | | | | | | | | | | | subject | | +---------+---------+---------+---------+---------+---------+---------+---------+---------+ | FALL | [id number] | | Active | | Christen | | At risk | | | RISK | | | | | J. | | for | | | | (SNOMED | | | | [place] | | falls | | | | CT) | | | | ta TUNNEL KILN FIRER | | | | +---------+---------+---------+---------+---------+---------+---------+---------+---------+ | DIABETE | [id number] | | Resolve | | Christen | | Diabeti | | | S | 653324 | /14 | d | /15 | J. | | c | | | MELLITU | (SNOMED | | | | [place] | | periphe | | | S, TYPE | CT) | | | | ta TUNNEL KILN FIRER | | ral | | | II [...] s | | +---------+---------+---------+---------+---------+---------+---------+---------+---------+ | CORNS | [id number] | | Inactiv | | Kali | | Corns | | | AND | | | e | | Palacio | | and | | | CALLOSI | (SNOMED | | | | DPM | | callus | | | TIES | CT) | | | | | | | | +---------+---------+---------+---------+---------+---------+---------+---------+---------+ | HAMMER | [id number] | | Active | | Kali | [...] | | | +---------+---------+---------+---------+---------+---------+---------+---------+---------+ | ETIENNE | 5980405 | | Active | | Kali | [...] ropathy | | +---------+---------+---------+---------+---------+---------+---------+---------+---------+ | DIABETE | [id number] | | Removed | | Kali | [...] s | | +---------+---------+---------+---------+---------+---------+---------+---------+---------+ | ONYCHOM | 0231506 | | Active | | Kali | | Onychom | | | YCOSIS | 08 | /01 | | /01 | Palacio | | ycosis | | | | (SNOMED | | | | DPM | | | | | | CT) | | | | | | | | +---------+---------+---------+---------+---------+---------+---------+---------+---------+ | HEARTBU | 7449584 | | Active | | Tiesha | | Heartbu | | | RN | 0 | /19 | | /19 | | | rn | | | | (SNOMED | | | | [place] | | | | | | CT) | | | | MD | | | | +---------+---------+---------+---------+---------+---------+---------+---------+---------+ | TYPE 2 | 8157353 | | Active | | Tiesha | | Disorde | | | DIABETE | 03 | /19 | | /19 | | | r due | | | S | (SNOMED | | | | [place] | | to type | | | [...] athy | | +---------+---------+---------+---------+---------+---------+---------+---------+---------+ | UTI | 7271508 | | Removed | | Pako | | Urinary | | | | 5 | /13 | | /13 | [place] | | tract | | | | (SNOMED | | | | auff | | infecti | | | | CT) | | | | TUNNEL KILN FIRER | | ous | | | | | | | | | | disease | | +---------+---------+---------+---------+---------+---------+---------+---------+---------+ | LOCALIZ | 1623983 | | Removed | | [place] | [...] | | | +---------+---------+---------+---------+---------+---------+---------+---------+---------+ | LIPOMA | 3053348 | | Active | | Lauranc | | Lipoma | | | | 2 | /14 | | /14 | e W | | (clinic | | | | (SNOMED | | | | Lila | | al) | | | | CT) | | | | MD | | | | +---------+---------+---------+---------+---------+---------+---------+---------+---------+ | VITAMIN | 5786736 | | Active | | David Paez | | Vitamin | | | D | 6 | / | | / | Theen | | D | | | DEFICIE | (SNOMED | | | | MD FACE | | deficie | | | NCY | CT) | | | | FACP | | ncy | | +---------+---------+---------+---------+---------+---------+---------+---------+---------+ | OBESITY | 9632573 | | Active | | David Paez | | Obesity | | | , BMI | 01 | | | | Theen | | | | | 35-39.9 | (SNOMED | | | | MD FACE | | | | | , ADULT | CT) | | | | FACP | | | | +---------+---------+---------+---------+---------+---------+---------+---------+---------+ | DIABETE | 5957137 | | Removed | | David Paez | | Diabeti | | | S | 529959 | /14 | | | Theen | [...] s | | +---------+---------+---------+---------+---------+---------+---------+---------+---------+ | HALLUX | 8155366 | | Inactiv | | Kali | [...] | | | +---------+---------+---------+---------+---------+---------+---------+---------+---------+ | HAMMER | 9116640 | | Inactiv | | Kali | [...] | | | +---------+---------+---------+---------+---------+---------+---------+---------+---------+ | ONYCHOM | 0344872 | | Inactiv | | Kali | [...] ropathy | | +---------+---------+---------+---------+---------+---------+---------+---------+---------+ | DIABETE | 0904731 | | Inactiv | | Kali | [...] s | | +---------+---------+---------+---------+---------+---------+---------+---------+---------+ | SCREENI | 0385631 | | Resolve | | Lauranc | | Depress | | | NG FOR | 06 | /10 | d | /10 | e W | | ion | | | DEPRESS | (SNOMED | | | | Lila | | screeni | | | ION | CT) | | | | MD | | ng | | +---------+---------+---------+---------+---------+---------+---------+---------+---------+ | SCREENI | 4385467 | | Resolve | | Lauranc | [...] | | | +---------+---------+---------+---------+---------+---------+---------+---------+---------+ | SCREENI | 2959834 | | Resolve | | Lauranc | [...] ng | | +---------+---------+---------+---------+---------+---------+---------+---------+---------+ | SCREENI | 0300647 | | Removed | | Geetha | | Alcohol | | | NG FOR | 01 | /10 | | /10 | [place] | | | | | ALCOHOL | (SNOMED | | | | [facility] | | consump | | | ISM | CT) | | | | | | tion | | | | | | | | | | screeni | | | | | | | | | | ng | | +---------+---------+---------+---------+---------+---------+---------+---------+---------+ | SCREENI | 9452132 | | Removed | | Geetha | [...] | | | +---------+---------+---------+---------+---------+---------+---------+---------+---------+ | SCREENI | 9999858 | | Removed | | Geetha | | Depress | | | NG FOR | 06 | | | | [place] | | ion | | | DEPRESS | (SNOMED | | | | [facility]MA | | screeni | | | ION | CT) | | | | | | ng | | +---------+---------+---------+---------+---------+---------+---------+---------+---------+ | RENAL | 5907001 | | Removed | | Lauranc | [...] e | | +---------+---------+---------+---------+---------+---------+---------+---------+---------+ | EDEMA | 9515480 | | Removed | | Lauranc | | Edema | | | | 08 | /15 | | /11 | e W | | | | | | (SNOMED | | | | Lila | | | | | | CT) | | | | MD | | | | +---------+---------+---------+---------+---------+---------+---------+---------+---------+ | RENAL | 3369218 | | Active | | Luz | [...] e | | +---------+---------+---------+---------+---------+---------+---------+---------+---------+ | PERIPHE | 8187980 | | Active | | Lauranc | [...] disease | | +---------+---------+---------+---------+---------+---------+---------+---------+---------+ | CANDIDI | 4836525 | | Active | | Susanna | | Candidi | | | ASIS, | 6 | / | | / | Medel | | asis of | | | SKIN | (SNOMED | | | | MD | | skin | | | | CT) | | | | | | | | +---------+---------+---------+---------+---------+---------+---------+---------+---------+ | DYSURIA | 8623459 | | Removed | | Erica | | Dysuria | | | | 1 | / | | | Paul | | | | | | (SNOMED | | | | MA | | | | | | CT) | | | | | | | | +---------+---------+---------+---------+---------+---------+---------+---------+---------+ | VAGINIT | 4831990 | | Removed | | Erica | | Vaginit | | | IS | 1 | / | | / | Paul | | is | | | | (SNOMED | | | | MA | | | | | | CT) | | | | | | | | +---------+---------+---------+---------+---------+---------+---------+---------+---------+ | RLQ | 8445129 | | Resolve | | Lauranc | | Right | | | PAIN | 02 | | d | /11 | e W | | lower | | | | (SNOMED | | | | Lila | | quadran | | | | CT) | | | | MD | | t pain | | +---------+---------+---------+---------+---------+---------+---------+---------+---------+ | ABDOMIN | 0790561 | | Resolve | | Lauranc | [...] | | | +---------+---------+---------+---------+---------+---------+---------+---------+---------+ | KNEE | 5637645 | | Active | | Lauranc | | Knee | | | PAIN | 3 | /14 | | /14 | e W | | pain | | | | (SNOMED | | | | Lila | | | | | | CT) | | | | MD | | | | +---------+---------+---------+---------+---------+---------+---------+---------+---------+ | Questio | 7751018 | | Correct | | Lauranc | [...] e | | +---------+---------+---------+---------+---------+---------+---------+---------+---------+ | VERTIGO | 4834783 | | Active | | Luz | | Vertigo | | | | | / | | / | Asad | | | | | | (SNOMED | | | | RN | | | | | | CT) | | | | | | | | +---------+---------+---------+---------+---------+---------+---------+---------+---------+ | CHEST | 7804371 | | Inactiv | | Genny | | Chest | | | PAIN | 9 | | e | / | [place] | | pain | | | | (SNOMED | | | | | | | | | | CT) | | | | | | | | +---------+---------+---------+---------+---------+---------+---------+---------+---------+ | CHEST | 8826125 | | Inactiv | | Lauranc | [...] fied | | +---------+---------+---------+---------+---------+---------+---------+---------+---------+ | CEREBRO | 5716318 | | Active | | Rogers | | 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 | | | R | (SNOMED | | | | MD | | r | | | DISEASE | CT) | | | | | | disease | | +---------+---------+---------+---------+---------+---------+---------+---------+---------+ | History | 9981348 | | Active | | Rogers | [...] | | | +---------+---------+---------+---------+---------+---------+---------+---------+---------+ | DIABETI | 4131655 | | Removed | | Rogers | [...] thy | | +---------+---------+---------+---------+---------+---------+---------+---------+---------+ | HYPERLI | 0520899 | | Active | | Rogers | [...] e | | +---------+---------+---------+---------+---------+---------+---------+---------+---------+ | CEREBRA | 0600507 | | Correct | | Rogers | [...] s | | +---------+---------+---------+---------+---------+---------+---------+---------+---------+ | ABDOMIN | 4002867 | | Removed | | Patricia | [...] | | | +---------+---------+---------+---------+---------+---------+---------+---------+---------+ | RLQ | 2593767 | | Removed | | Patricia | [...] fied | | +---------+---------+---------+---------+---------+---------+---------+---------+---------+ | CARPAL | 6196283 | | Active | | Rogers | | Carpal | | | 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 | | | | MD | | 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, LEFT | CT) | | | | | | e | | +---------+---------+---------+---------+---------+---------+---------+---------+---------+ | Questio | 1897893 | | Removed | | Rogers | [...] | | | +---------+---------+---------+---------+---------+---------+---------+---------+---------+ | GAIT | 4088453 | | Active | | Rogers | | Abnorma | | | IMBALAN | | | | | Laith | | l gait | | | CE | (SNOMED | | | | MD | | | | | | CT) | | | | | | | | +---------+---------+---------+---------+---------+---------+---------+---------+---------+ | BRAIN | [id number] | | Correct | | Rogers | [...] e | | +---------+---------+---------+---------+---------+---------+---------+---------+---------+ | PARESTH | 7813532 | | Removed | | Rogers | | Paresth | | | ESIA, | 04 | /25 | | /25 | Laith | | esia of | | | HANDS | (SNOMED | | | | MD | | hand | | | | CT) | | | | | | | | +---------+---------+---------+---------+---------+---------+---------+---------+---------+ | PERIPHE | 6690564 | | Correct | | Rogers | | Periphe | | | RAL | 06 | / | ion | /25 | Laith | | ral | | | NEUROPA | (SNOMED | | | | MD | | nerve | | | THY | CT) | | | | | | disease | | +---------+---------+---------+---------+---------+---------+---------+---------+---------+ | THYROID | 3701835 | | Active | | Luz | | Thyroid | | | NODULE | 05 | /20 | | /20 | [place] | | nodule | | | | (SNOMED | | | | [facility] | | | | | | CT) | | | | | | | | +---------+---------+---------+---------+---------+---------+---------+---------+---------+ | TIA | [id number] | | Active | | Lauranc | [...] a | | +---------+---------+---------+---------+---------+---------+---------+---------+---------+ | SYNCOPE | 9360459 | | Removed | | Lauranc | | Syncope | | | | | | | | e W | | | | | | (SNOMED | | | | Lila | | | | | | CT) | | | | MD | | | | +---------+---------+---------+---------+---------+---------+---------+---------+---------+ | GASTROP | 5779744 | | Active | | Lauranc | | 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 | | | | (SNOMED | | | | Lila | | syndrom | | | | CT) | | | | MD | | e | | +---------+---------+---------+---------+---------+---------+---------+---------+---------+ | CONSTIP | [id number] | | Active | | Lauranc | | Chronic | | | ATION, | 09 | /08 | | /08 | e W | | | | | CHRONIC | (SNOMED | | | | Lila | | constip | | | | CT) | | | | MD | | ation | | +---------+---------+---------+---------+---------+---------+---------+---------+---------+ | POSTHER | [id number] | | Active | | Lauranc | | Posther | | | 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 | (SNOMED | | | | Lila | | neuralg | | | IA | CT) | | | | MD | | ia | | +---------+---------+---------+---------+---------+---------+---------+---------+---------+ | DIZZINE | [id number] | | Removed | | Lauranc | | Dizzine | | | SS | 03 | /08 | | /08 | e W | | ss | | | | (SNOMED | | | | Lila | | | | | | CT) | | | | MD | | | | +---------+---------+---------+---------+---------+---------+---------+---------+---------+ | DEHYDRA | [id number] | | Removed | | Lauranc | | Dehydra | | | TION | 6 | /08 | | /08 | e W | | tion | | | | (SNOMED | | | | Lila | | | | | | CT) | | | | MD | | | | +---------+---------+---------+---------+---------+---------+---------+---------+---------+ | DIABETE | [id number] | | Removed | | Lauranc | [...] | | | +---------+---------+---------+---------+---------+---------+---------+---------+---------+ | HYPERTE | [id number] | | Active | | Lauranc | [...] 1 TAB | | | BUSPIRONE | [id number] | Kali | | HCL 7.5 MG | three | | | HCL | 1 | Palacio DPM | | TABS | times per | | | | | | | | day | | | | | | + + + + + + + + | LANTUS 100 | 25 units | | | INSULIN | 3178091118 | Jesus | | UNIT/ML | two [...] two times | | | MECLIZINE | 2374504530 | Laurance W | | HCL 25 MG | per day | | | HCL | 0 | Lila MD | | TABS | | | | | | | + + + + + + + + | MECLIZINE | One tab by | | | MECLIZINE | 1073149216 | Laurance W | | HCL 25 [...] 1 tab | | | PREGABALIN | 1021911320 | [facility] | | MG CAPS | three | | | | 8 | Ankur DNP | | | times per | | | | | TUNNEL KILN FIRER | | | day. Pt | | | | | | | | states as | | | | | | | | needed | | | | | | + + + + + + + + | PROMETHAZI | Take one | | | PROMETHAZI | 9249276525 | Edna | | NE HCL 25 [...] 3U before | | | INSULIN | 8437368282 | Scarlett | | 100 | lunch [...] POTASSIUM | | | | POTASSIUM | [id number] | Kali | | CHLORIDE | | | | CHLORIDE | 1 | Palacio DPM | | ER 10 MEQ | | | | | | | | CR-CAPS | | | | | | | + + + + + + + + | DULOXETINE | 1 tab one | | | DULOXETINE | [id number] | Bailey W | | HCL 30 MG | time per | | | HCL | 6 | Lila MD | | CPEP | day | | | | | | + + + + + + + + | PROCHLORPE | Insert one | | | PROCHLORPE | 2521303684 | Edna | | RAZINE 25 | [...] Use daily | | | INSULIN | 1187006200 | [facility] | | NEEDLE | to inject | | | PEN NEEDLE | 0 | Ankur DNP | | ULTRAFINE | insulin | | | | | TUNNEL KILN FIRER | | 29G X | | | | | | | | 12.7MM | | | | | | | + + + + + + + + | DRAMAMINE | take 1-2 | | | TAYLER | 8211081530 | Christen Ramirez | | 50 MG TABS | tabs 4 | | | MARCELA | 2 | Raumakita | | | times per | | | | | TUNNEL KILN FIRER | | | day as | | | | | | | | needed | | | | | | + + + + + + + + | VICTOZA 18 | | | | LIRAGLUTID | [id number] | Jesus | | MG/3ML | | [...] | | | | * | | TUNNEL KILN FIRER | + + + + + + + + | BASAGLAR | 1 pen | | | INSULIN | 9686861496 | Christen Ramirez | | KWIKPEN | every 3 | | | GLARGINE | 9 | [place] | | 100 | days 56 | | | | | TUNNEL KILN FIRER | | UNIT/ML | units q | [...] by mouth | | | MECLIZINE | 4282293083 | Bailey W | | HCL 25 [...] mix and | | | NA | 6359436801 | Maulik | | BOWEL PREP | [...] take 2 | | | GABAPENTIN | 1421038726 | Bailey W | | 300 MG [...] Inject 0.6 | | | LIRAGLUTID | [id number] | Christen Ramirez | | MG/3ML | mg daily | | | E | 2 | [place]ita | | SOPN | | | | | | TUNNEL KILN FIRER | + + + + + + + + | ONDANSETRO | 1 tab | | | ONDANSETRO | 5617569463 | Kali | | N HCL 4 MG | every 4 | | | N HCL | 3 | Palacio DPM | | TABS | hours | | | | | | + + + + + + + + | VICTOZA 18 | | | | LIRAGLUTID | [id number] | Bailey W | | MG/3ML | [...] 1 tab | | | GABAPENTIN | 7407882276 | Jesus | | 300 MG | po tid . | | | | 4 | Ethan MD | | CAPS | Pt states | | | | | | | | as needed | | | | | | + + + + + + + + | COLACE 100 | 1 tab by | | | DOCUSATE | [id number] | Kali | | MG CAPS | mouth | | | SODIUM | 0 | Palacio DPM | | | daily at | | | | | | | | bedtime | | | | | | + + + + + + + + | CLONAZEPAM | Take one | | | CLONAZEPAM | 3362809523 | Edna | | 0.5 MG | [...] | | | | | | | TUNNEL KILN FIRER | + + + + + + + + | ASPIRIN | take 1 | | | ASPIRIN | 6317968907 | Rogers | | 325 MG | [...] per | | | FOOT CARE | 1181561296 | [facility] | | INSOLES | custom | | | PRODUCTS | 1 | Ankur DNP | | | fit from | | | | | TUNNEL KILN [employer]ER | | | podiatry | | | | | | | | Dx. | | | | | | | | E11.65, | | | | | | | | e11.21 | | | | | | + + + + + + + + | LYRICA 50 | 1 tab | | | PREGABALIN | 4101814251 | Bailey W | | MG CAPS | three | | | | 8 | Lila MD | | | times per | | | | | | | | day | | | | | | + + + + + + + + | GLUCOPHAGE | 1 tab one | | | METFORMIN | 6607158598 | Bailey W | | XR 500 MG | time per | | | HCL | 3 | Lila MD | | [id number] | day | | | | | | + + + + + + + + | HUMALOG | BS <150 - | | | INSULIN | 9311875979 | Christen Ramirez | | 100 | No insulin | | | LISPRO | 1 | [place] | | UNIT/ML | BS | | | (HUMAN) | | TUNNEL KILN FIRER | | SOLN | 150-200 | | [...] Use 5 | | | INSULIN | 1327151156 | [facility] | | SYRINGE | times | | | SYRINGE-NE | 1 | Ankur DNP | | ULTRAFINE | daily to | | | EDLE U-100 | | TUNNEL KILN FIRER | | 29G X /" | inject [...] 50 units | | | INSULIN | 1880502090 | Pako | | UNIT/ML | once per | | | GLARGINE | 3 | Middlekauf | | SOLN | day. Pt | | | | | 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 | | | states she | | [...] | | | | | | | TUNNEL KILN FIRER | + + + + + + + + | NITROFURAN | Take one | | | NITROFURAN | 9064682096 | Edna | | TOIN | capsule [...] Use daily | | | GLUCOSE | 5437046691 | [facility] | | BLOOD | to check | | | BLOOD | 4 | Ankur DNP | | GLUCOSE | blood | | | | | TUNNEL KILN FIRER | | TEST STRP | sugar | | | | | | + + + + + + + + | ERGOCALCIF | One | | | ERGOCALCIF | 8269690118 | Mariano | | QUANG 70622 | capsule by | | | QUANG [...] take 2 | | | GABAPENTIN | 0813955269 | Mariano | | 300 MG | [...] 10ml QAM | | | METFORMIN | 4425595480 | Mariano | | MG/5ML | Liquid due | | | HCL | 1 | Ariella | | ANGYN | to | | | | | CCMA | | | Dysphagia | | | | | | + + + + + + + + | ASPIRIN EC | take 1 | | | ASPIRIN | 2997945062 | Rogers | | 325 MG | tablet | | | | 1 | Laith MD | | TBEC | daily | | | | | | + + + + + + + + | RELION | Use to | | | GLUCOSE | 0599502891 | Kali | | BLOOD | test BG | | | BLOOD | 4 | Palacio DPM | | GLUCOSE | one time | | | | | | | TEST STRP | per day | | | | | | + + + + + + + + | NITROFURAN | | | | NITROFURAN | 6188892642 | Edna | | TOIN | | [...] one tablet | | | DOCUSATE | [id number] | Laurance W | | MG CAPS | by mouth | | | SODIUM | 0 | Lila MD | | | at bedtime | | | | | | + + + + + + + + | BACTRIM DS | 1 by mouth | | | TRIMETHOPR | 4106806934 | Laurance W | | 800-160 | twice a | | | IM-SULFAME | 1 | Lila MD | | MG TABS | day for 3 | | | THOXAZOLE | | | | | days | | | | | | + + + + + + + + | RELION PEN | | | | INSULIN | 8473925245 | [facility] | | NEEDLES | | | | PEN NEEDLE | 4 | Ankur DNP | | 31G X 8 MM | | | | | | TUNNEL KILN FIRER | + + + + + + + + | VICTOZA 18 | .6 mg x 1 | | | LIRAGLUTID | 2144654247 | [facility] | | MG/3ML | week then | | | E | 2 | Ankur DNP | | SOPN | 1.2 mg | | | | | TUNNEL KILN FIRER | | | daily per | | | | | | | | week | | | | | | + + + + + + + + | ASPIRIN 81 | one time | | | ASPIRIN | 3137302327 | Mariano | | MG ORAL | [...] | | | | | | | TUNNEL KILN FIRER | + + + + + + + + | DIABETIC | 1 pair per | | | DIABETIC | | [facility] | | ORTHOTIC | custom | | | ORTHOTIC | | Ankur DNP | | SHOES | fit from | | | SHOES | | TUNNEL KILN FIRER | | | podiatry | | | | | | | | E11.65, | | | | | | | | e11.21 | | | | | | + + + + + + + + | GABAPENTIN | two times | | | GABAPENTIN | 1246520191 | Mariano | | 100 MG | per day | | | | 1 | Ariella | | CAPS | | | | | | CCMA | + + + + + + + + | MISC | | | | MISC | | [facility] | | | | | | | | Ankur DNP | | | | | | | | TUNNEL KILN FIRER | + + + + + + + + | BIOTIN 1 | | | | BIOTIN | 2067615365 | Kali | | MG CAPS | | | | | 2 | Palacio DPM | + + + + + + + + | PIOGLITAZO | Take 1 tab | | | PIOGLITAZO | 0506444018 | Jesus | | NE HCL 15 [...] two times | | | MECLIZINE | 9234725379 | Mariano | | HCL 25 MG [...] take 1 | | | ASPIRIN | 1014731013 | Mariano | | 325 MG | tablet | | | | 1 | Ariella | | TBEC | daily | | | | | CCMA | + + + + + + + + | PIOGLITAZO | Take 1 tab | | | PIOGLITAZO | 9901566283 | Christen Ramirez | | NE HCL 15 | by mouth | | | NE HCL | 6 | [place] | | MG TABS | one time | | | | | TUNNEL KILN FIRER | | | per day in | | | | | | | | the AM | | | | | | + + + + + + + + | NEURONTIN | take 1 tab | | | GABAPENTIN | 2438375420 | Bailey W | | 300 MG | po tid | | | | 4 | Lila MD | | CAPS | | | | | | | + + + + + + + + | DIOVAN 160 | one time | | | VALSARTAN | 7866785071 | Mariano | | MG TABS | per day | | | | 4 | Ariella | | | | | | | | CCMA | + + + + + + + + | ASPIRIN | take 1 | | | ASPIRIN | 6436811192 | Franciscoance W | | 325 MG [...] 1 pill | | | CEPHALEXIN | 5075137404 | Tiesha | | MG CAPS | twice a | | | | 1 | Maria Isabel MD | | | day for 7 | | | | | | | | days | | | | | | + + + + + + + + | GABAPENTIN | one tablet | | | GABAPENTIN | 9515772162 | Franciscoance W | | 100 MG [...] 1 tab | | | MECLIZINE | 9001154387 | Laurance W | | HCL 25 MG | three | | | HCL | 0 | Lila MD | | TABS | times per | | | | | | | | day | | | | | | + + + + + + + + | NITROFURAN | Take one | | | NITROFURAN | 5913397013 | Edna | | TOIN | capsule [...] 0.02 ml | | | EXENATIDE | 2974658782 | Laurance W | | MCG PEN 5 | injection | | | | 1 | Lila MD | | MCG/0.02ML | two times | | | | | | | SOPN | per day | | | | | | + + + + + + + + | FLUCONAZOL | take one | | | FLUCONAZOL | 8862114576 | Franciscoance W | | E 150 MG | tablet PO | | | E | 1 | Lila MD | | TABS | x 1 repeat | | | | | | | | in 3 days | | | | | | + + + + + + + + | PROCHLORPE | Insert one | | | PROCHLORPE | 9890154040 | [facility] | | RAZINE 25 | | | | RAZINE | 0 | Ankur DNP | | MG SUPP | suppositor | | | | | TUNNEL KILN FIRER | | | y rectally | | [...] tab two | | | CILOSTAZOL | 7847472606 | Kali | | 100 MG | times per | | | | 1 | Palacio DPM | | TABS | day | | | | | | + + + + + + + + | RIOMET 500 | 10ml's two | | | METFORMIN | 1420813853 | Laurance W | | MG/5ML | [...] D | | | | CHOLECALCI | 6535413968 | Kali | | 1000 UNIT | | | | FEROL | 1 | Palacio DPM | | TABS | | | | | | | + + + + + + + + | NEURONTIN | take 1 tab | | | GABAPENTIN | 2297822305 | Christen Ramirez | | 300 MG | po tid . | | | | 4 | [place] | | CAPS | Pt states | | | | | TUNNEL KILN FIRER | | | as needed | | | | | | + + + + + + + + | BYETTA 5 | Take as | | | EXENATIDE | 6596692117 | Christen Ramirez | | MCG PEN 5 | directed | | | | 1 | [place] | | MCG/0.02ML | once daily | | | | | TUNNEL KILN FIRER | | SOPN | in the AM [...] two times | | | METFORMIN | 1198357093 | Mariano | | HCL 1000 | per day | | | HCL | 5 | Ariella | | MG TABS | | | | | | CCMA | + + + + + + + + | GABAPENTIN | Take 2 | | | GABAPENTIN | 1763244802 | Bailey W | | 300 MG [...] | | | | | | | TUNNEL KILN FIRER | + + + + + + + + | LYRICA 50 | TAKE ONE | | | PREGABALIN | 6371132449 | Kesha | | MG CAPS | [...] Take one | | | BIOTIN | 2148788369 | Lorri | | MG CAPS | daily in | | | | 2 | Prabhakar | | | the AM | | | | | NCMA | + + + + + + + + | BD INSULIN | Use to | | | INSULIN | 8183187738 | [facility] | | SYRINGE | inject | | | SYRINGE-NE | 6 | Ankur DNP | | ULTRAFINE | insulin 5 | | | EDLE U-100 | | TUNNEL KILN FIRER | | 29G X /2" | times per | | | | | | | 0.5 ML | day | | | | | | + + + + + + + + | RELION | Use to | | | GLUCOSE | 3138946543 | [facility] | | BLOOD | check | | | BLOOD | 4 | Ankur DNP | | GLUCOSE | blood | | | | | TUNNEL KILN FIRER | | TEST STRP | sugars | [...] use with | | | BLOOD | 3369649127 | [facility] | | PRIME | test | | | GLUCOSE | 2 | Ankur DNP | | MONITOR | strips to | | | MONITORING | | TUNNEL KILN FIRER | | DYLAN | test BG | | | SUPPL | | | | | daily | | | | | | + + + + + + + + | RELION | use when | | | GLUCOSE | 6988787265 | [facility] | | BLOOD | testing BG | | | BLOOD | 4 | Ankur DNP | | GLUCOSE | | | | | | TUNNEL KILN FIRER | | TEST STRP | | | | | | | + + + + + + + + | VALSARTAN | Take one | | | VALSARTAN | 2553327104 | [facility] | | 160 MG | tablet | | | | 7 | Ankur DNP | | TABS | daily in | | | | | TUNNEL KILN FIRER | | | the AM | | | | | | + + + + + + + + | BASAGLAR | 68 Units | | | INSULIN | 7231502001 | [facility] | | KWIKPEN | every | | | GLARGINE | 9 | Ankur DNP | | 100 | morning | | | | | TUNNEL KILN FIRER | | UNIT/ML | (34 units | | | | | | | SOPN | on each | | | | | | | | side) | | | | | | + + + + + + + + | NOVOLOG | 12 Units | | | INSULIN | 4288988917 | [facility] | | 100 | before | | | ASPART | 1 | Ankur DNP | | UNIT/ML | meals | | | | | TUNNEL KILN FIRER | | SOLN | [id number] | | [...] 65 Units | | | INSULIN | 3154750956 | [facility] | | KWIKPEN | every | | | GLARGINE | 9 | Ankur DNP | | 100 | morning | | | | | TUNNEL KILN FIRER | | UNIT/ML | | | | | | | | SOPN | | | | | | | + + + + + + + + | BASAGLAR | 60 Units | | | INSULIN | 3785246266 | [facility] | | KWIKPEN | every | | | GLARGINE | 9 | Ankur DNP | | 100 | morning | | | | | TUNNEL KILN FIRER | | UNIT/ML | | | | | | | | SOPN | | | | | | | + + + + + + + + | MIRALAX | 17 gm | | | POLYETHYLE | 8290449768 | [facility] | | POWD | daily | | | NE GLYCOL | 2 | Ankur DNP | | | stirred | | | 3350 | | TUNNEL KILN FIRER | | | into 4-8 | | [...] 1 pill | | | DOCUSATE | [id number] | [facility] | | MG CAPS | twice | | | SODIUM | 0 | Ankur DNP | | | daily for | | | | | TUNNEL KILN FIRER | | | soft | | | | | | | | stools | | | | | | + + + + + + + + | LYRICA 100 | 1 capsule | | | PREGABALIN | 7026933438 | [facility] | | MG CAPS | three | | | | 8 | Ankur DNP | | | times | | | | | TUNNEL KILN FIRER | | | daily for | | | | | | | | neuropathy | | | | | | + + + + + + + + | LIPITOR 20 | take 1 | | | ATORVASTAT | 2969928581 | [facility] | | MG TABS | tablet by | | | IN CALCIUM | 3 | Ankur DNP | | | mouth | | | | | TUNNEL KILN FIRER | | | daily in | | | | | | | | the | | | | | | | | evening | | | | | | + + + + + + + + | GLIPIZIDE | Take 1 | | | GLIPIZIDE | 5000884171 | [facility] | | XL 2.5 MG | tablet | | | | 1 | Ankur DNP | | [id number] | p.o. | | | | | TUNNEL KILN FIRER | | | q.a.m. | | | | | | + + + + + + + + | OMEPRAZOLE | Take one | | | OMEPRAZOLE | 4056719111 | [facility] | | 40 MG | by mouth | | | | 0 | Ankur DNP | | CPDR | one time | | | | | TUNNEL KILN FIRER | | | per day | | [...] tab by | | | MECLIZINE | 3613327687 | [facility] | | HCL 25 MG | mouth | | | HCL | 0 | Ankur DNP | | TABS | three | | | | | TUNNEL KILN FIRER | | | times per | | | | | | | | day | | | | | | + + + + + + + + | PLAVIX 75 | 1 tab by | | | CLOPIDOGRE | 4075575310 | [facility] | | MG TABS | mouth one | | | L | 1 | Ankur DNP | | | time per | | | BISULFATE | | TUNNEL KILN FIRER | | | day in the | | | | | | | | evening | | | | | | + + + + + + + + | VITAMIN D | Take one | | | CHOLECALCI | 4561383715 | [facility] | | 1000 UNIT | tablet | | | FEROL | 1 | Ankur DNP | | TABS | daily in | | | | | TUNNEL KILN FIRER | | | the AM | | | | | | + + + + + + + + | PANTOPRAZO | Take one | | | PANTOPRAZO | 9959976110 | [facility] | | LE SODIUM | tablet by | | | LE SODIUM | 8 | Ankur DNP | | 40 MG TBEC | mouth once | | | | | TUNNEL KILN FIRER | | | daily | | | | | | + + + + + + + + | LASIX 80 | 1 tab by | | | FUROSEMIDE | 6881954775 | [facility] | | MG TABS | mouth one | | | | 5 | Ankur DNP | | | time per | | | | | TUNNEL KILN FIRER | | | day in the | | | | | | | | AM | | | | | | + + + + + + + + | POTASSIUM | Take one | | | POTASSIUM | 5954345618 | [facility] | | CHLORIDE | cap daily | | | CHLORIDE | 1 | Ankur DNP | | ER 10 MEQ | in the AM | | | | | TUNNEL KILN FIRER | | CR-CAPS | | | | | | | + + + + + + + + | BD PEN | Use daily | | | INSULIN | 4771053906 | [facility] | | NEEDLE | to inject | | | PEN NEEDLE | 0 | Ankur DNP | | ULTRAFINE | insulin | | | | | TUNNEL KILN FIRER | | 29G X | | | | | | | | 12.7MM | | | | | | | + + + + + + + + | BD INSULIN | Use 5 | | | INSULIN | 7318351091 | [facility] | | SYRINGE | times | | | SYRINGE-NE | 1 | Ankur DNP | | ULTRAFINE | daily to | | | EDLE U-100 | | TUNNEL KILN FIRER | | 29G X 1/2" | inject [...] Take one | | | BIOTIN | 8187203330 | [facility] | | MG CAPS | daily in | | | | 2 | Ankur DNP | | | the AM | | | | | TUNNEL KILN FIRER | + + + + + + + + | COLACE 100 | 1 pill BID | | | DOCUSATE | 3331807769 | [facility] | | MG CAPS | | | | SODIUM | 0 | Ankur DNP | | | | | | | | TUNNEL KILN FIRER | + + + + + + + + | NYSTATIN-T | Apply thin | | | NYSTATIN-T | 7807986327 | [facility] | | RIAMCINOLO | layer to | | | RIAMCINOLO | 5 | Ankur DNP | | NE | affected | | | NE | | TUNNEL KILN FIRER | | 239161-7.1 | area BID | | | | | | | UNIT/GM-% | prn for | | | | | | | CREA | itching | | | | | | + + + + + + + + | RELION PEN | | | | INSULIN | 0862645533 | David | | NEEDLES | | | | PEN NEEDLE | 4 | Mark DO | | 31G X 8 MM | | | | | | | + + + + + + + + | NOVOLOG | 3U before | | | INSULIN | 9994898277 | David | | 100 | lunch [...] 56 Units | | | INSULIN | 0533731184 | David | | GRACEIKPEN | every [...] 1 tid | | | PREGABALIN | 4461582600 | Christen Escudero. | | MG CAPS | | | | | 8 | [place] | | | | | | | | TUNNEL KILN FIRER | + + + + + + + + | LYRICA 100 | 1 tab | | | PREGABALIN | 4395260266 | Christen Ramirez | | MG CAPS | three | | | | 8 | [place] | | | times per | | | | | TUNNEL KILN FIRER | | | day. Pt | | | | | | | | states as | | | | | | | | needed | | | | | | + + + + + + + + | VICTOZA 18 | .6 mg x 1 | | | LIRAGLUTID | 6242722095 | Christen Ramirez | | MG/3ML | week then | | | E | 2 | [place] | | SOPN | 1.2 mg | | | | | TUNNEL KILN FIRER | | | daily per | | | | | | | | week | | | | | | + + + + + + + + | HUMALOG | 3U before | | | INSULIN | 6629179650 | Christen Ramirez | | 100 | lunch and | | | LISPRO | 1 | [place] | | UNIT/ML | 5U before | | | | | TUNNEL KILN FIRER | | SOLN | Dinner | | [...] Inject 0.6 | | | LIRAGLUTID | 7672593041 | Christen Ramirez | | MG/3ML | mg daily | | | E | 2 | [place] | | SOPN | | | | | | TUNNEL KILN FIRER | + + + + + + + + | BASAGLAR | 56 Units | | | INSULIN | 8243250301 | Christen Ramirez | | KWIKPEN | by mouth | | | GLARGINE | 9 | [place] | | 100 | every | | | | | TUNNEL KILN FIRER | | UNIT/ML | morning | | | | | | | SOPN | | | | | | | + + + + + + + + | VICTOZA 18 | 5 unit AM | | | LIRAGLUTID | 7461616542 | Christen Ramirez | | MG/3ML | and 5 | | | E | 2 | [place] | | SOPN | units PM | | | | | TUNNEL KILN FIRER | + + + + + + + + | BASAGLAR | 1 pen | | | INSULIN | 8024536454 | Christen Ramirez | | KWIKPEN | every 3 | | | GLARGINE | 9 | [place] | | 100 | days 56 | | | | | TUNNEL KILN FIRER | | UNIT/ML | units q | | | | | | | SOPN | Day | | | | | | + + + + + + + + | BYETTA 5 | Take as | | | EXENATIDE | 5802178666 | Christen Ramirez | | MCG PEN 5 | directed | | | | 1 | [place] | | MCG/0.02ML | once daily | | | | | TUNNEL KILN FIRER | | SOPN | in the AM | | | | | | + + + + + + + + | LANTUS 100 | 56 units | | | INSULIN | 3269346916 | Kaykay | | UNIT/ML | qAM | | | GLARGINE | 3 | Mora DO | | SOLN | | | | | | | + + + + + + + + | SUPREP | mix and | | | NA | 6912640544 | Emeka | | BOWEL PREP | [...] <150 - | | | INSULIN | 3630342109 | Tiesha | | 100 | No [...] Use daily | | | GLUCOSE | 2727602795 | Tiesha | | BLOOD | to check | | | BLOOD | 4 | [place] [employer] MD | | GLUCOSE | blood | | | | | | | TEST STRP | sugar | | | | | | + + + + + + + + | DIABETIC | 1 pair per | | | DIABETIC | | Tiesha | | ORTHOTIC | custom | | | ORTHOTIC | | [employer] MD | | SHOES | fit from | | | SHOES | | | | | podiatry | | | | | | | | E11.65, | | | | | | | | e11.21 | | | | | | + + + + + + + + | DIABETIC | 1 pair per | | | FOOT CARE | 1383588675 | Tiesha | | INSOLES | custom [...] 1 pill | | | CEPHALEXIN | 3231047003 | Pako | | MG CAPS | twice a | | | | 1 | Middlekauf | | | day for 7 | | | | | 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 | | | days | | | | | | + + + + + + + + | BYETTA 5 | 0.02 ml | | | EXENATIDE | 5020949226 | Laurance W | | MCG PEN 5 | injection | | | | 1 | Lila MD | | MCG/0.02ML | two times | | | | | | | SOPN | per day | | | | | | + + + + + + + + | LYRICA 100 | 1 tab | | | PREGABALIN | [id number] | Laurance W | | MG CAPS | three | | | | 8 | Lila MD | | | times per | | | | | | | | day | | | | | | + + + + + + + + | DRAMAMINE | take 1-2 | | | DIMENHYDRI | [id number] | Laurance W | | 50 MG [...] Use 5 | | | INSULIN | [id number] | Bailey W | | SYRINGE | [...] tab by | | | CLOPIDOGRE | [id number] | Bailey W | | MG TABS | mouth one | | | L | 1 | Lila MD | | | time per | | | BISULFATE | | | | | day | | | | | | + + + + + + + + | LANTUS 100 | 25 units | | | INSULIN | [id number] | Laurance W | | UNIT/ML | two times | | | GLARGINE | 3 | Lila MD | | SOLN | per day | | | | | | + + + + + + + + | LASIX 80 | 1 tab by | | | FUROSEMIDE | [id number] | Laurance W | | MG TABS | mouth one | | | | 5 | Lila MD | | | time per | | | | | | | | day | | | | | | + + + + + + + + | FUROSEMIDE | 1 tab one | | | FUROSEMIDE | 2627134919 | Laurance W | | 40 MG | time per | | | | 5 | Lila MD | | TABS | day | | | | | | + + + + + + + + | BUSPIRONE | 1 TAB | | | BUSPIRONE | 4510486160 | Laurance W | | HCL 7.5 MG | three | | | HCL | 1 | Lila MD | | TABS | times per | | | | | | | | day | | | | | | + + + + + + + + | COLACE 100 | 1 tab by | | | DOCUSATE | [id number] | Laurance W | | MG CAPS | mouth | | | SODIUM | 0 | Lila MD | | | daily at | | | | | | | | bedtime | | | | | | + + + + + + + + | BACTRIM DS | 1 by mouth | | | TRIMETHOPR | [id number] | Laurance W | | 800-160 | twice a | | | IM-SULFAME | 1 | Lila MD | | MG TABS | day for 3 | | | THOXAZOLE | | | | | days | | | | | | + + + + + + + + | LYRICA 50 | Take 1 tab | | | PREGABALIN | 3280639439 | Laurance W | | MG CAPS [...] tab one | | | METFORMIN | 6869482059 | Laurance W | | XR 500 MG | time per | | | HCL | 3 | Lila MD | | [id number] | day | | | | | | + + + + + + + + | CILOSTAZOL | 1 tab two | | | CILOSTAZOL | 2591369949 | Laurance W | | 100 MG | times per | | | | 1 | Lila MD | | TABS | day | | | | | | + + + + + + + + | OMEPRAZOLE | Take one | | | OMEPRAZOLE | 6368782799 | Laurance W | | 40 MG [...] take 1 | | | ATORVASTAT | [id number] | Laurance W | | MG TABS | tablet by | | | IN CALCIUM | 3 | Lila MD | | | mouth | | | | | | | | daily | | | | | | + + + + + + + + | MECLIZINE | 1 tab | | | MECLIZINE | 5884175162 | Laurance W | | HCL 25 MG | three | | | HCL | 0 | Lila MD | | TABS | times per | | | | | | | | day | | | | | | + + + + + + + + | LANTUS 100 | 56 units | | | INSULIN | [id number] | Laurance W | | UNIT/ML | in the | | | GLARGINE | 3 | Lila MD | | SOLN | morning | | | | | | + + + + + + + + | ONDANSETRO | 1 tab | | | ONDANSETRO | 9253023276 | Laurance W | | N HCL 4 MG | every 4 | | | N HCL | 3 | Lila MD | | TABS | hours | | | | | | + + + + + + + + | PIOGLITAZO | Take 1 tab | | | PIOGLITAZO | 0437894171 | Franciscoance W | | NE HCL 15 | by mouth | | | NE HCL | 6 | Lila MD | | MG TABS | one time | | | | | | | | per day | | | | | | + + + + + + + + | RELION | Use to | | | GLUCOSE | [id number] | Bailey W | | BLOOD | test BG | | | BLOOD | 4 | Lila MD | | GLUCOSE | one time | | | | | | | TEST STRP | per day | | | | | | + + + + + + + + | GABAPENTIN | Take 2 | | | GABAPENTIN | 9012914064 | Laurance W | | 300 MG [...] TAB one | | | VALSARTAN | 2810099834 | Bailey W | | 160 MG | time per | | | | 8 | Lila MD | | TABS | day | | | | | | + + + + + + + + | LYRICA 50 | TAKE ONE | | | PREGABALIN | 7225442062 | Laurance W | | MG CAPS [...] 0.2 ml | | | EXENATIDE | 8198396124 | Laurance W | | MCG PEN 5 | injection | | | | 1 | Lila MD | | MCG/0.02ML | two times | | | | | | | SOPN | per day | | | | | | + + + + + + + + | VICTOZA 18 | 1.2 mg | | | LIRAGLUTID | [id number] | Laurance W | | MG/3ML | injected | | | E | 2 | Lila MD | | SOPN | martin | | | | | | + + + + + + + + | KEFLEX 500 | one po TID | | | CEPHALEXIN | [id number] | Susanna | | MG CAPS | | | | | 1 | Gianfranco MD | + + + + + + + + | FLUCONAZOL | take one | | | FLUCONAZOL | [id number] | Susanna | | E 150 MG | tablet PO | | | E | 1 | Gianfranco MD | | TABS | x 1 repeat | | | | | | | | in 3 days | | | | | | + + + + + + + + | LYRICA 50 | 1 tab | | | PREGABALIN | 7558377130 | Bailey W | | MG CAPS | three | | | | 8 | Lila MD | | | times per | | | | | | | | day | | | | | | + + + + + + + + | GABAPENTIN | Take 2 | | | GABAPENTIN | 6573206736 | Bailey W | | 300 MG [...] tab one | | | DULOXETINE | 5290019892 | Laurance W | | HCL 30 MG | time per | | | HCL | 6 | Lila MD | | CPEP | day | | | | | | + + + + + + + + | RIOMET 500 | 10ml's two | | | METFORMIN | [id number] | Laurance W | | MG/5ML | [...] TAB one | | | VALSARTAN | [id number] | Laurance W | | MG TABS | time per | | | | 4 | Lila MD | | | day | | | | | | + + + + + + + + | MECLIZINE | One tab by | | | MECLIZINE | [id number] | Laurance W | | HCL 25 [...] take 2 | | | GABAPENTIN | [id number] | Laurance W | | 300 MG [...] tab one | | | VALSARTAN | [id number] | Laurance W | | MG TABS | time per | | | | 4 | Lila MD | | | day | | | | | | + + + + + + + + | VICTOZA 18 | 0.6 mg | | | LIRAGLUTID | [id number] | Laurance W | | MG/3ML | [...] tab one | | | SITAGLIPTI | [id number] | Laurance W | | 100 MG | time per | | | N | 2 | Lila MD | | TABS | day | | | PHOSPHATE | | | + + + + + + + + | GABAPENTIN | 2 tabs two | | | GABAPENTIN | [id number] | Laurance W | | 300 MG | times per | | | | 5 | Lila MD | | CAPS | day | | | | | | + + + + + + + + | DIOVAN 160 | 1 by mouth | | | VALSARTAN | [id number] | Laurance W | | MG TABS | every day | | | | 4 | Lila MD | + + + + + + + + | GABAPENTIN | 1 tab at | | | GABAPENTIN | [id number] | Laurance W | | 100 MG [...] 28 units | | | INSULIN | [id number] | Laurance W | | UNIT/ML | two times | | | GLARGINE | 3 | Lila MD | | SOLN | per day | | | | | | + + + + + + + + | LISINOPRIL | take 1 | | | LISINOPRIL | 9763485298 | Rogers | | 20 MG | tablet by | | | | 1 | Laith LUIS | | TABS | mouth | | | | | | | | daily | | | | | | + + + + + + + + | LANTUS 100 | 56 units | | | INSULIN | [id number] | Bailey W | | UNIT/ML | daily | | | GLARGINE | 3 | Lila MD | | SOLN | | | | | | | + + + + + + + + | GABAPENTIN | 1 by mouth | | | GABAPENTIN | 8468939928 | Bailey W | | 100 MG [...] | One | | | ERGOCALCIF | [id number] | Laurance W | | QUANG 80786 | capsule by | | | QUANG [...] by mouth | | | LISINOPRIL | 2057341803 | Laurance W | | 5 MG TABS | one time | | | | 1 | Lila MD | | | per day | | | | | | + + + + + + + + | RIOMET 500 | 10ml QAM | | | METFORMIN | [id number] | Laurance W | | MG/5ML | Liquid due | | | HCL | 1 | Lila MD | | SOLN | to | | | | | | | | Dysphagia | | | | | | + + + + + + + + | COLACE 100 | one tablet | | | DOCUSATE | [id number] | Laurance W | | MG CAPS | by mouth | | | SODIUM | 0 | Lila MD | | | at bedtime | | | | | | + + + + + + + + | MECLIZINE | 1 by mouth | | | MECLIZINE | 6826478234 | Laurance W | | HCL 25 [...] one tablet | | | METFORMIN | 9430377060 | Laurance W | | HCL 1000 | by mouth | | | HCL | 5 | Lila MD | | MG TABS | twice a | | | | | | | | day | | | | | | + + + + + + + + | ASPIRIN 81 | 1 by mouth | | | ASPIRIN | 5657406279 | Laurance W | | MG ORAL | every day | | | | 5 | Lila MD | | TABLET | | | | | | | + + + + + + + + | GABAPENTIN | one tablet | | | GABAPENTIN | 5600535453 | Laurance W | | 100 MG [...] | | | | | | | TUNNEL KILN FIRER | + + + + + + [...] | Rx Refill: eRx Request for INSULIN [id number] MIS | + + + +--------+ +---+---+---+ + | | ESM_RR | [id number] | | | B | e-scripts | | | | 82`INSULIN | | | | messenger | | | | | | | | refill | | | | [id number] | | | | request | | [...] | | | | | | | Shilrey*` | | | | | | | | [id number] | | | | | | | | `[id number] | | | | | | | | 01``INSULI | | | | | | | | N | | | | | | | | [id number] | | | | | | | [...] [address], | | | | [place], [address], | | | | | + + + + | Appointment | 02:15 PM | Ambrose Pascual [facility], [address] | | | | [facility] [address], | | | | [place], [address], | | | | | + + + + | Referral | | Ophthalmology Consult | + + + + | Referral | | Orthopedic Consult | + + + + | Referral | | Physical Therapy Evaluation | | | | [facility], [address] | | | | [address] | | | | [address], [place], [address] | | | | | | | | | + + + + | Referral | | Physical Therapy Evaluation | | | | [facility], [address] | | | | [address] | | | | [address], [place], [address] | | | | | | | | | + + + + | Referral | | Podiatry Consult | | | | Hector Armendariz, | | | | [address] | | | | [address], [place], [place], | | | | [address] | | | | | + + + + | Referral | | Podiatry Consult | | | | Hector Armendariz, | | | | [address] [facility] | | | | [address], [place], [place], | | | | [address] | | | | | + + + + | Referral | | Ophthalmology Consult | | | | Huong Rose, | | | | [address] [facility] | | | | [place], [address] | | | | | + + + + | Referral | | Nephrology Evaluation | | | | Larry Galo, | | | | [address], | | | | [address], [place], [address] | | | | | | | | | + + + + | Referral | | Nephrology Evaluation | | | | Larry Galo, | | | | [address], | | | | [address], [place], [address] | | | | | | | | | + + + + | Referral | | Ophthalmology Consult | | | | Huong Rose, | | | | [address], [place], | | | | [place], [address] | | | | | + + + + | Referral | | MRA Head-WWO Con | | | | Dian Atkins, [address] | | | [address], | | | | [place], [address] | | | | | + + + + | Referral | | JUAN FRANCISCO Griffiths-PALMA Leigh | | | | Dian Milly, [address] | | | | [address], | | | | [place], [place], [address] | | | | | + + [...] | + + + + + | [id number] | Overweight | | | + + + + + | CPT-74594 | Adm 1st Inj No | | | | | counseling or >18 | | | + + + + + | CPT-67855 | Prevnar 13 | | | | | (Pneumococcal >7 | | | + + + + + | [id number] | Overweight | | | + + + + + | CPT-57071 | Glucose by monitor | | | + + + + + | [id number] | Overweight | | | + + + + + | [id number] | Overweight | | | + + + + + | [id number] | Overweight | | | + + + + + | CPT-90960 | IV infusion -1st hr | | | | | (Rehydration) | | | + + + + + | CPT-82104 | Glucose by monitor | | | + + + + + | CPT-11283 | UA Dipstick | | | + + + + + | CPT-98347 | DAISY Linick | | | + + + + + | CPT-54854 | Initial Psych | | | | | Evaluation | | | + + + + + | CPT-12620 | [facility], [address] or | | | | | more [address] | | | + + + + [...] | + + + + + | CPT-48931 | Trim Skin Lesions | | | | | [address] | | | + + + + + | CPT-59132 | UA Dipstick | | | + + + + + +---+ + | | Order excluded from report: | +---+ + + + + + + | VIT D HYDR 63336 | Vit D, 25 hydroxy | | [...]
--- OUTSIDE RECORDS SUMMARY | ~2019-03-25 | XMS | Continuity of Care Document ---
Demographics + + + | Address | [address] | | | [place] [address] | + + + | Home Phone | | + + + | Preferred Language | Unknown | + + + | Marital Status | Unknown | + + + | Oriental Orthodox Affiliation | Unknown | + + + | Race | Unknown | + + + | Ethnic Group | Unknown | + + + Author + + + | Author | [facility] | + + + | Organization | [facility] | + + + | Address | [address] | | | [place] [address] | + + + | Phone | | + + + Support + + + + + | Name | Relationship | Address | Phone | + + + + + | EVAN Pascual | Caregiver | [facility] | | | | | [place] [address] | | + + + + + | Franck Plaacio MD | Caregiver | ER | | | | | [place] [address] | | + + + + + | DOLORES DIANA | Next Of Wilfred | [address] | | | | | [place] [address] | | + + + + + Care Team Providers + + + + | Care Hydroelectric Mechanic Name | Role | Phone | + + + + | EVAN Pascual | Talita | | + + + + Insurance Providers + + + + + | Payer Name | Policy Number | Subscriber Name | Relationship | + + + + + | [employer] | [id number] | JULI DIANA | SELF | | CLAIMS | | | | + + + + + | [employer] | [id number] | JULI DIANA | SELF | | [...] + +--------+ | Neurological | Unknown | 01/12/15 | Active | | symptoms | | [...] + +--------+ | Dizziness | Unknown | 04/15/16 | Active | + + + +--------+ [...] Medications + + +-------+ + + + + + | Medicati | Dose | Units | Route | Directio | Days/Qty | Instruct | Start | | on | | | | ns | | ions | Date | + + +-------+ + + + + + | Atorvast | Unknown | | ORAL [...] | + + +-------+ + + + + + | Cephalex | 500 | MG | ORAL | Four | 40 | | 08 | | in | | | | Times a | | | | | Monohydr | | | | Day | | | | | ate | | | | | | | | | (Keflex) | | | | | | | | | 500 MG | | | | | | | | | CAP | | | | | | | | + + +-------+ + + + + + | Clonazep | Unknown | | ORAL [...] | + + +-------+ + + + + + | Insulin | | | Subcutan | [...] | + + +-------+ + + + + + | Insulin | 300 | UNIT | [...] | + + +-------+ + + + + + | Potassiu | [...] | + + +-------+ + + + + + | Valsarta | [...] | + + +-------+ + + + + + Past Home Medications [...] | + + + + + | [place], Disposable | | Unknown | Discontinued | [...] + + + | Discharge Date | 12/28/17 | + + + | Disposition | HOME | + + + | Condition at Discharge | Fair | + + + | Instructions/Education Provided | Hyperglycemia | + + + | Prescriptions | See Medications Section | + + + | Referrals | Ambrose Pascual - | + + + | Additional Instructions/Education | CALL YOUR DOCTOR ON SATURDAY REGARDING YOUR | | | INSULIN DOSING | + + + Functional Status No functional status results. Allergies, Adverse Reactions, Alerts + +---------+ + +--------+ + | Allergen | Type | Severity | Reaction | Status | Last Updated | + +---------+ + +--------+ + | hydrocodone | Allergy | Mild | HALLUCINATIO | Active | 12/28/17 | | bit | | | NS | | | + +---------+ + +--------+ + | lisinopril | Allergy | Unknown | | Active | 12/28/17 | + +---------+ + +--------+ + | morphine | Allergy | Mild | HALLUCINATIO | Active | 12/28/17 | | | | | N | | | + +---------+ + +--------+ + | ciprofloxaci | Allergy | Unknown | | Active | 12/28/17 | | n | | | | | | + +---------+ + +--------+ + Immunizations No Known History of Immunizations. Vital Signs + + + + | Vital Reading | Collection Date/Time | Result | + + + + | Blood Pressure | 12/28/17 7:05pm | 163/77 | + + + + | Blood Pressure Source | 05/01/15 10:30am | Left Arm | + + + + | Temperature | 12/28/17 7:05pm | 98.4 F | + + + + | Temperature Source | 12/28/17 7:05pm | Temporal | + + + + | Respiratory Rate | 12/28/17 7:05pm | 16 | + + + + | Pulse Rate | 08/04/18 7:05pm | 79 | + + + + | Bedside Pulse Oximetry | 08/04/18 7:05pm | 99 | + + + + | Height | 08/04/18 7:05pm | 5 ft 1 in | + + + + | Height | 08/04/18 7:05pm | 154.94 cm | + + + + | Weight | 08/04/18 7:05pm | 170 lb | + + + + | Weight | 08/04/18 7:05pm | 77.11 kg | + + + + | Body Mass Index | 08/04/18 7:05pm | 32.1 kg/m2 | + + + [...] | mg/dL | H | 70-99 | 12/28/17 | 12/28/17 | CAP | | Glucose | | | | | 9:58pm | 10:05pm | | | (mg/dL) | | | | | | | | + +--------+ +-------+ + + + + | Urine | Clean | | | | 12/28/17 | 12/28/17 | | | Source | Catch | | | | 7:38pm | 7:48pm | | + +--------+ +-------+ + + + + | Urine | Yellow | | | P-Yellow | 12/28/17 | 12/28/17 | | | Color | | | | | 7:38pm | 7:48pm | | + +--------+ +-------+ + + + + | Urine | Clear | | | Clear | 12/28/17 | 12/28/17 | | | Appearan | | | | | 7:38pm | 7:48pm | | | ce | | | | | | | | + +--------+ +-------+ + + + + | Urine | 1.010 | | | 1.003-1. | 12/28/17 | 12/28/17 | | | Specific | | | | 022 | 7:38pm | 7:48pm | | | [place] | | | | | | | | + +--------+ +-------+ + + + + | Urine pH | 5.0 | | | 5.0-8.0 | 12/28/17 | 12/28/17 | | | | | | | | 7:38pm | 7:48pm | | + +--------+ +-------+ + + + + | Urine | 1+ | | * | Neg | 12/28/17 | 12/28/17 | | | Leukocyt | | | | | 7:38pm | 7:48pm | | | e | | | | | | | | | Esterase | | | | | | | | + +--------+ +-------+ + + + + | Urine | Neg | | | Neg | 18 | 12/28/17 | | | Nitrite | | | | | 7:38pm | 7:48pm | | + +--------+ +-------+ + + + + | Urine | 1+ | | * | Neg | 18 | 18 | | | Protein | | | | | 7:38pm | 7:48pm | | + +--------+ +-------+ + + + + | Urine | 4+ | | * | Neg | 18 | 18 | | | Glucose | | | | | 7:38pm | 7:48pm | | + +--------+ +-------+ + + + + | Urine | Neg | | | Neg | 18 | 18 | | | Ketones | | | | | 7:38pm | 7:48pm | | + +--------+ +-------+ + + + + | Urine | NORM | | | Normal | 18 | 18 | | | Urobilin | | | | | 7:38pm | 7:48pm | | | ogen | | | | | | | | + +--------+ +-------+ + + + + | Urine | Neg | | | Neg | 18 | 18 | | | Bilirubi | | | | | 7:38pm | 7:48pm | | | n | | | | | | | | + +--------+ +-------+ + + + + | Urine | 1+ | | * | Neg | 12/28/17 | 12/28/17 | | | Blood | | | | | 7:38pm | 7:48pm | | + +--------+ +-------+ + + + + | Urine | 0-2 | /hpf | | 0-5 | 12/28/17 | 12/28/17 | | | WBC | | | | | 7:38pm | 7:52pm | | + +--------+ +-------+ + + + + | Urine | 2-5 | /hpf | * | 0-2 | 12/28/17 | 12/28/17 | | | RBC | | | | | 7:38pm | 7:52pm | | + +--------+ +-------+ + + + + | Urine | Rare | /hpf | | Few | 12/28/17 | 12/28/17 | | | Squamous | | | | | 7:38pm | 7:52pm | | | | | | | | | | | | Epitheli | | | | | | | | | al Cells | | | | | | | | + +--------+ +-------+ + + + + | Urine | Many | /hpf | * | None | 12/28/17 | 12/28/17 | | | Bacteria | | | | | 7:38pm | 7:52pm | | + +--------+ +-------+ + + + + | Urine | Yes | | * | No | 12/28/17 | 12/28/17 | | | Culture | | | | | 7:38pm | 7:48pm | | | Indicate | | | | | | | | | d | | | | | | | | + +--------+ +-------+ + + + + | White | 8.42 | K/mm3 | | 4.00-11. | 12/28/17 | 12/28/17 | | | Blood | | | | 30 | 7:32pm | 7:47pm | | | Count | | | | | | | | + +--------+ +-------+ + + + + | Red | 4.48 | M/mm3 | | 3.80-5.2 | 12/28/17 | 12/28/17 | | | Blood | | | | 0 | 7:32pm | 7:47pm | | | Count | | | | | | | | + +--------+ +-------+ + + + + | Hemoglob | 13.1 | g/dL | | 11.5-16. | 12/28/17 | 12/28/17 | | | in | | | | 0 | 7:32pm | 7:47pm | | + +--------+ +-------+ + + + + | Hematocr | 39.3 | % | | 33.0-51. | 12/28/17 | 12/28/17 | | | it | | | | 0 | 7:32pm | 7:47pm | | + +--------+ +-------+ + + + + | Mean | 88 | fL | | 80-100 | 12/28/17 | 12/28/17 | | | Corpuscu | | | | | 7:32pm | 7:47pm | | | lar | | | | | | | | | Volume | | | | | | | | + +--------+ +-------+ + + + + | Mean | 29.2 | pg | | 26.0-34. | 12/28/17 | 12/28/17 | | | Corpuscu | | | | 0 | 7:32pm | 7:47pm | | | lar | | | | | | | | | Hemoglob | | | | | | | | | in | | | | | | | | + +--------+ +-------+ + + + + | Mean | 33.3 | g/dL | | 31.5-36. | 12/28/17 | 12/28/17 | | | Corpuscu | | | | 5 | 7:32pm | 7:47pm | | | lar | | | | | | | | | Hemoglob | | | | | | | | | in | | | | | | | | | Concent | | | | | | | | + +--------+ +-------+ + + + + | RDW | 42.7 | fL | | 35.1-46. | 12/28/17 | 12/28/17 | | | Standard | | | | 3 | 7:32pm | 7:47pm | | | | | | | | | | | | Deviatio | | | | | | | | | n | | | | | | | | + +--------+ +-------+ + + + + | RDW | 13.4 | % | | 11.7-14. | 12/28/17 | 12/28/17 | | | Coeffici | | | | 2 | 7:32pm | 7:47pm | | | ent of | | | | | | | | | Variatio | | | | | | | | | n | | | | | | | | + +--------+ +-------+ + + + + | Platelet | 143 | K/mm3 | L | 150-400 | 12/28/17 | 12/28/17 | | | Count | | | | | 7:32pm | 7:47pm | | + +--------+ +-------+ + + + + | Mean | 13.7 | fL | H | 9.1-12.4 | 12/28/17 | 12/28/17 | | | Platelet | | | | | 7:32pm | 7:47pm | | | Volume | | | | | | | | + +--------+ +-------+ + + + + | Manual | Yes | | | | 12/28/17 | 12/28/17 | Smear | | Slide | | | | | 7:32pm | 7:57pm | scan | | Review | | | | | | | confirms | | (Hematol | | | | | | | | | ogy) | | | | | | | automate | | | | | | | | | d | | | | | | | | | results. | | | | | | | | | | + +--------+ +-------+ + + + + | Differen | Auto | | | | 12/28/17 | 12/28/17 | | | tial | | | | | 7:32pm | 7:57pm | | | Method | | | | | | | | + +--------+ +-------+ + + + + | Neutroph | 81 | % | H | 41-73 | 12/28/17 | 12/28/17 | | | ils (%) | | | | | 7:32pm | 7:57pm | | | (Auto) | | | | | | | | + +--------+ +-------+ + + + + | Lymphocy | 15 | % | L | 21-46 | 12/28/17 | 12/28/17 | | | serge (%) | | | | | 7:32pm | 7:57pm | | | (Auto) | | | | | | | | + +--------+ +-------+ + + + + | Monocyte | 4 | % | | 4-13 | 12/28/17 | 12/28/17 | | | s (%) | | | | | 7:32pm | 7:57pm | | | (Auto) | | | | | | | | + +--------+ +-------+ + + + + | Eosinoph | 0 | % | | 0-6 | 12/28/17 | 12/28/17 | | | ils (%) | | | | | 7:32pm | 7:57pm | | | (Auto) | | | | | | | | + +--------+ +-------+ + + + + | Basophil | 0 | % | | 0-2 | 12/28/17 | 12/28/17 | | | s (%) | | | | | 7:32pm | 7:57pm | | | (Auto) | | | | | | | | + +--------+ +-------+ + + + + | Immature | 1 | % | | 0-1 | 12/28/17 | 12/28/17 | | | | | | | | 7:32pm | 7:57pm | | | Granuloc | | | | | | | | | yte % | | | | | | | | | (Auto) | | | | | | | | + +--------+ +-------+ + + + + | Nucleate | 0.0 | /100 WBC | | 0.0-0.2 | 12/28/17 | 12/28/17 | | | d Red | | | | | 7:32pm | 7:57pm | | | Blood | | | | | | | | | Cells % | | | | | | | | + +--------+ +-------+ + + + + | Absolute | 6.81 | K/mm3 | | 1.96-9.1 | 12/28/17 | 12/28/17 | | | | | | | 5 | 7:32pm | 7:57pm | | | Neutroph | | | | | | | | | ils | | | | | | | | | (auto) | | | | | | | | + +--------+ +-------+ + + + + | Absolute | 1.22 | K/mm3 | | 0.84-5.2 | 12/28/17 | 12/28/17 | | | | | | | 0 | 7:32pm | 7:57pm | | | Lymphocy | | | | | | | | | serge | | | | | | | | | (auto) | | | | | | | | + +--------+ +-------+ + + + + | Absolute | 0.34 | K/mm3 | | 0.16-1.4 | 12/28/17 | 12/28/17 | | | | | | | 7 | 7:32pm | 7:57pm | | | Monocyte | | | | | | | | | s (auto) | | | | | | | | + +--------+ +-------+ + + + + | Absolute | 0.01 | K/mm3 | | 0.00-0.6 | 12/28/17 | 12/28/17 | | | | | | | 8 | 7:32pm | 7:57pm | | | Eosinoph | | | | | | | | | ils | | | | | | | | | (auto) | | | | | | | | + +--------+ +-------+ + + + + | Absolute | 0.00 | K/mm3 | | 0.00-0.2 | 12/28/17 | 12/28/17 | | | | | | | 3 | 7:32pm | 7:57pm | | | Basophil | | | | | | | | | s (auto) | | | | | | | | + +--------+ +-------+ + + + + | Absolute | 0.04 | K/mm3 | | 0.00-0.1 | 12/28/17 | 12/28/17 | | | | | | | 0 | 7:32pm | 7:57pm | | | Immature | | | [...] 0.00 | K/mm3 | | 0.00-0.0 | 12/28/17 | 12/28/17 | | | d RBC | | | | 2 | 7:32pm | 7:57pm | | | Absolute | | | | | | | | | Count | | | | | | | | | (auto) | | | | | | | | + +--------+ +-------+ + + + + | Sodium | 136 | mmol/L | | 136-145 | 12/28/17 | 12/28/17 | | | Level | | | | | 7:32pm | 8:01pm | | + +--------+ +-------+ + + + + | Potassiu | 4.6 | mmol/L | | 3.5-5.5 | 12/28/17 | 12/28/17 | | | m Level | | | | | 7:32pm | 8:01pm | | + +--------+ +-------+ + + + + | Chloride | 103 | mmol/L | | 98-108 | 12/28/17 | 12/28/17 | | | Level | | | | | 7:32pm | 8:01pm | | + +--------+ +-------+ + + + + | Carbon | 20 | mmol/L | L | 21-32 | 12/28/17 | 12/28/17 | | | Dioxide | | | | | 7:32pm | 8:01pm | | | Level | | | | | | | | + +--------+ +-------+ + + + + | Anion | 13 | mmol/L | | 6-16 | 12/28/17 | 12/28/17 | | | Gap | | | | | 7:32pm | 8:01pm | | + +--------+ +-------+ + + + + | Glucose | 475 | mg/dL | H | 70-99 | 12/28/17 | 12/28/17 | | | Level | | | | | 7:32pm | 8:01pm | | + +--------+ +-------+ + + + + | Blood | 69 | mg/dL | H | 8-24 | 12/28/17 | 12/28/17 | | | Urea | | | | | 7:32pm | 8:01pm | | | Nitrogen | | | | | | | | + +--------+ +-------+ + + + + | Creatini | 2.47 | mg/dL | H | 0.40-1.0 | 12/28/17 | 12/28/17 | | | ne | | | | 0 | 7:32pm | 8:01pm | | + +--------+ +-------+ + + + + | BUN/Crea | 27.9 | % | H | 12.0-20. | 12/28/17 | 12/28/17 | | | tinine | | | | 0 | 7:32pm | 8:01pm | | | Ratio | | | | | | | | + +--------+ +-------+ + + + + | Glomerul | 20 | | L | 60- | 12/28/17 | 12/28/17 | Non-Afri | | ar | | | | | 7:32pm | 8:01pm | can | | Filtrati | | | | | | | [place] | | on Rate | | | | | | | GFR | | Calc | | | | | | | CalcFor | | | | | | | | | | | | | | | | | | [place] | | | | | | | [...] + + + + | Calcium | 8.4 | mg/dL | L | 8.5-10.1 | 12/28/17 | 12/28/17 | | | Level | | | | | 7:32pm | 8:01pm | | + +--------+ +-------+ + + + + | Total | 7.7 | g/dL | | 6.4-8.2 | 12/28/17 | 12/28/17 | | | Protein | | | | | 7:32pm | 8:01pm | | + +--------+ +-------+ + + + + | Albumin | 3.7 | g/dL | | 3.4-5.0 | 12/28/17 | 12/28/17 | | | | | | | | 7:32pm | 8:01pm | | + +--------+ +-------+ + + + + | Globulin | 4.0 | g/dL | | 2.2-4.0 | 12/28/17 | 12/28/17 | | | | | | | | 7:32pm | 8:01pm | | + +--------+ +-------+ + + + + | Albumin/ | 0.9 | | | 0.8-1.8 | 12/28/17 | 12/28/17 | | | Globulin | | | | | 7:32pm | 8:01pm | | | Ratio | | | | | | | | + +--------+ +-------+ + + + + | Total | 0.2 | mg/dL | | 0.1-1.0 | 12/28/17 | 12/28/17 | | | Bilirubi | | | | | 7:32pm | 8:01pm | | | n | | | | | | | | + +--------+ +-------+ + + + + | Alkaline | 152 | U/L | H | 50-136 | 12/28/17 | 12/28/17 | | | | | | | | 7:32pm | 8:01pm | | | Phosphat | | | | | | | | | ase | | | | | | | | + +--------+ +-------+ + + + + | Aspartat | 31 | U/L | | 12-37 | 18 | 12/28/17 | | | e Amino | | | | | 7:32pm | 8:01pm | | | Transf | | | | | | | | | (AST/SGO | | | | | | | | | T) | | | | | | | | + +--------+ +-------+ + + + + | Alanine | 48 | U/L | | 12-78 | 12/28/17 | 18 | | | Aminotra | | | | | 7:32pm | 8:01pm | | | nsferase | | | | | | | | | | | | | | | | | | (ALT/SGP | | | | | | | | | T) | | | | | | | | + +--------+ +-------+ + + + + Microbiology Results + + + + + + | Procedure | Source | Result | Collection | Result | | | | | Date/Time | Date/Time | + + + + + + | Urine Culture | Urine, Source | Klebsiella | 12/28/17 7:38pm | 12/30/17 8:54am | | | Unspecified | pneumoniae | | | + + + + + + Procedures No Known History of Procedures. Encounters + + + + + + | Encounter | Location | Arrival/Admit | Discharge/Depar | Attending | | | | Date | t Date | Provider | + + + + + + | Departed | [facility] | 12/28/17 6:47pm | 12/28/17 | Franck Palacio | | Emergency | [facility] | | 10:26pm | MD | + + + + + + + + + | Encounter Diagnosis | Onset Date | + + + | Hyperglycemia | | + + +"
--- OUTSIDE RECORDS SUMMARY | ~2019-03-25 | XMS | Continuity of Care Document ---
Demographics + + + | Address | [address] | | | [place] [address] | + + + | Home Phone | | + + + | Preferred Language | Unknown | + + + | Marital Status | Unknown | + + + | Jew Affiliation | Unknown | + + + | Race | Unknown | + + + | Ethnic Group | Unknown | + + + Author + + + | Author | [facility] | + + + | Organization | [facility] | + + + | Address | [address] | | | [place] [address] | + + + | Phone | | + + + Support + + + + + | Name | Relationship | Address | Phone | + + + + + | Nereida Canales DO | Caregiver | [address] | | | | | [place] | | | | | [address] | | + + + + + | EVAN Pascual | Caregiver | [facility] | | | | | [place] [address] | | + + + + + | DOLORES DIANA | [facility] | [address] | | | | | [place] [address] | | + + + + + Care Team Providers + + + + | Care Delivery Coordinator Name | Role | Phone | + + + + | EVAN Pascual | Unavailable | | + + + + Insurance Providers + + + + + | Payer Name | Policy Number | Subscriber Name | Relationship | + + + + + | HEALTH NET MEDICARE | [id number] | JOSHUA DIANA | SELF | | CLAIMS | | | | + + + + + | [employer] [employer] | [id number] | JULI DIANA | SELF | | PPO | | | | + + + + + Chief Complaint and Reason for Visit + + + | Reason for Visit | HIGH GLUCOSE LEVEL 511 | + + + Problems Active Medical [...] +--------+ | Chronic renal | Unknown | 03/05/17 | Active | | disease | | [...] | + + + + + | Homeland, Disposable | | Unknown | Discontinued | [...] | for NAUSEA | | | | Tabdaquan, 1 Tab [...] + + + | Discharge Date | 08/25/17 | + + + | Disposition | HOME | + + + | Condition at Discharge | Good | + + + | Instructions/Education Provided | Hyperglycemia | + + + | Prescriptions | See Medications Section | + + + | Referrals | Ambrose PascualP - | + + + | Additional Instructions/Education | Follow up with your PCP. Get your insulin | | | rx tomorrow and take as normal. | | | Ifanything worsens return to the nearest | | | ER immediatley | + + + Functional Status No [...] + + + | Blood Pressure | 08/25/17 1:05am | 155/79 | + + + + | Blood Pressure Source | 05/01/15 10:30am | Left Arm | + + + + | Temperature | 08/25/17 1:05am | 98.7 F | + + + + | Temperature Source | 08/25/17 1:05am | Temporal | + + + + | Respiratory Rate | 08/25/17 1:05am | 15 | + + + + | Pulse Rate | 08/25/17 1:05am | 86 | + + + + | Bedside Pulse Oximetry | 08/25/17 1:05am | 98 | + + + + | Height | 08/25/17 1:05am | 5 ft 1 in | + + + + | Height | 08/25/17 1:05am | 154.94 cm | + + + + | Weight | 08/25/17 1:05am | 150 lb | + + + + | Weight | 08/25/17 1:05am | 68.04 kg | + + + + | Body Mass Index | 08/25/17 1:05am | 28.3 kg/m2 | + + + + Results [...] + + + + | POC | 391 | mg/dL | H | 70-99 | 08/25/17 | 08/25/17 | Notified | | Glucose | | | | | 2:23am | 2:25am | | | (mg/dL) | | | | | | | Caregive | | | | | | | | | rCAP | + +--------+-------+-------+ + + + + Procedures No Known History of Procedures. Encounters + + + + + + | Encounter | Location | Arrival/Admit | Discharge/Depar | Attending | | | | Date | t Date | Provider | + + + + + + | Departed | [facility] | 08/25/17 0:16am | 08/25/17 3:46am | Nereida Canales | | Emergency | [place] | | | J DO | + + + + + + + + + | Encounter Diagnosis | Onset Date | + + + | Hyperglycemia | | + + +"
--- OUTSIDE RECORDS SUMMARY | ~2019-03-25 | XMS ---
Demographics + + + | Address | [address] [place] [address] | | | [facility] [address] | + + + | Home Phone | | + + + | Preferred Language | Unknown | + + + | Marital Status | D | + + + | Mandaeism Affiliation | Unknown | + + + | Race | Unspecified | + + + | Ethnic Group | or | + + + Author + + + | Author | [facility] | + + + | Organization | [facility] | + + + | Address | [address] [facility] | | | [place] [address] | + + + | Phone | Unavailable | + + + Care Team Providers + + + + | Care Optical Mechanic Name | Role | Phone | [...] Take one | | | BIOTIN | [phone] | Lorri | | MG CAPS | [...] +------+------+-------+------+-------+------+ + + + | Podiatry Visit: HAT BODY INSPECTOR Diabetic Foot Exam | + + + [...] | | [facility] | + +--------+--------+---+---+---+ + Plan of Care + + + + | Type | Date | Detail | + + + + | Appointment | 01:00 PM | Hector Armendariz DPM, [address] | | | | [address] [facility] [address], | | | | [place], [address], | | | | | + + + + | Appointment | 01:00 PM | Ambrose Pascual DNP COOLER TENDER, [address] | | | | [address], | | | | [place], [address], | | | | | + + + + Procedures + + + + + | Code | Procedure Name | Date | Entry Date | + + + + + | [id number] | Overweight | | | + + [...] Provider: Ankur GORDON | | | HgbA1c: 8.8% Patient is Diabetic Current | | | Shoe Gear: splip ons Juli is here with | | | her daughter today for management of | | | diabetic foot exam. She states that on the | | | inside of her lower legs, her skin 'hurts | | | to the touch'. She has had pain in her | | | knee area that she would like to discuss | | | with doctor. Her knee gets a pain and | | | feels like it 'pops'. Her feet do not have | | | any unusual pains though. She says she | | | has been a diabetic for a long time. She | | | does have numbness to the bottom of her | | | feet. Her last A1C was 8.8 on 08/27/17. | | | Current Medications DADA HERNANDEZ 100 | | | UNIT/ML SUBCUTANEOUS SOLUTION PEN-INJEC | | | (INSULIN GLARGINE) 68 Units every morning | | | (34 units on each side) VALSARTAN 160 MG | | | ORAL TABLET (VALSARTAN) Take one tablet | | | daily in the AM LIPITOR 20 MG ORAL [...] breakfast as needed | | | NYSTATIN-TRIAMCINOLONE 638495-9.1 | | | UNIT/GM-% EXTERNAL CREAM | [...] juice or | | | other liquid Current Allergies | | | VICODIN (Critical) MORPHINE (Critical) * | | | CIPRO IV (Critical) * MECLIZINE | | | (Moderate) LISINOPRIL (Moderate) | | | .......................................... | | | .........................Lorri Prabhakar [facility] | | | September 24, 2017 1:04 PM Medical | | | History Type 2 [...] Number of Children: 7 | | | Pentecostal/Caodaism: Ep[employer]opalian Primary | | | Language: Fijian Use of Fijian | | | Language: Fluent Nurse Intake | | | Height: 61in. Weight: 181.2 lbs. BMI: | | | 34.36 Wt chg: -1.80 BP #1: 108/60 | | | Position:sitting Site:right arm Time:1:09 | | | PM Vitals entered by: Lorri Prabhakar [facility] | | | on September 24, 2017 1:09 PM Review of | | | Symptoms Positive for fatigue, blurry | | | vision, hearing loss, swelling of | | | feet/ankles, shortness of breath | | | w/walking, constipation, joint pain, joint | | | weakness or stiffness, difficulty | | | walking, itching, numbness/tingling, | | | memory loss, easy bleeding/bruising. All | | | other systems are reviewed and are | | | negative. Risk Factors Tobacco Use: | | | never smoker Alcohol Use:never Drug | | | Use: none Comments: Denies all drug | | | use....................................... | | | .............................Edna Hope | | | [facility] September 23, 2017 4:25 PM Other Risk | | | Factors Caffeine use (drinks/day): 1 cup | | | coffee/soda a week Exercise | | | (times/week): 0 Seatbelt use (%): 100 | | | Sun exposure: occasionally HX of MRSA: No | | | HIV high risk behavior: No Physical | | | Exam General: Well developed, well | | | nourished, in no apparent distress Pysch: | | | Alert and cooperative, normal mood and | | | affect, normal attention span and | | | concentration Cardiovascular: Dorsalis | | | pedis and posterior tibial arteries are | | | palpable and normal. Capillary filling | | | time is less than three seconds. | | | Temperature is warm to the touch, and is | | | normal to the foot and ankle. There is | | | normal hair growth to the digits and | | | dorsal foot. Neurologic: She felt 6/10 | | | via SWMF to the RIGHT foot. She felt 10/10 | | | via SWMF to the LEFT foot. Decreased | | | sensation of dorsum of feet pinprick, | | | decreased sensation to light touch | | | bilaterally. MSK: There are no signs of | | | infection. There is no erythema or | | | cellulitis BILATERALLY. There is no | | | ecchymosis BILATERALLY. There is 1+ | | | pitting edema BILATERALLY to the pretibial | | | area. She is able to dorsiflex to neutral | | | with knee extended BILATERALLY. Bone spur | | | noted to the RIGHT achilles tendon. | | | Achilles tendons are tight but intact | | | BILATERALLY. Arthritis to the RIGHT STJ. | | | Hallux valgus deformity noted to the RIGHT | | | foot. Skin: Skin is xerotic but intact | | | with no unusual lesions or changes. | | | Assessment/Plan Diagnosis: DIABETES | | | MELLITUS- TYPE II 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- UNCONTROLLED (ICD-250.62) | | | (WQU82-X84.40) The patient will be | | | weightbearing The patient was told to | | | ice their affected foot for 20 minutes at | | | least twice daily. The patient was told | | | to elevate their affected foot while at | | | rest. The patient was told to wear | | | good, supportive shoes. The patient was | | | told to avoid flip-flop sandals, high | | | heels, and other non-supportive shoes at | | | all times while ambulating. The patient | | | was told to stretch the plantar fascia | | | and achilles tendon with home physical | | | therapy stretching exercises at least | | | twice daily. The patient was told to | | [...] abnormalities, | | | sores or infections. Controlling her | | | diabetes was discussed today such as | | | keeping her A1C below 7.0 the | | | complications of a higher A1C was | | | discussed. We also discussed types of | | | foods to avoid and foods to eat. I | | | have advised her to avoid barefoot | | | walking. I have reminded her to use lotion | | | daily. I have told her to be sure to | | | keep stretching daily to help with the | | | tightness in the AT. She will follow up | | | in 1 year for re-evaluation. No | | | radiographs needed. Meaningful Use | | | Med List: (Reconciled) | | | .......................................... | | | ............................Alicia | | | Mikel is transcribing for Hector | | | ENA Armendariz. | + + + Reason for Referral No information available. Advance Directives No information available. Assessments No information available. Chief Complaint + + + | Chief Complaint Description | Start Date | + + + | Diabetic Foot Exam | | + + + Encounters + + + + + + | Code | Encounter | Date | Provider | Facility | + + + + + + | CPT-23693 | [facility] | | Hector Armendariz | [place] | | | III ([id number]) | | DPM | Podiatry | + + + + + + Family History No information available. Functional Status Assessment No information available. History of Past Illness No information available. History of Present Illness No information available. Instructions No information available. Medical (General) History No information available. Payers + + + + | Payer | Policy | Covered Republican | + + + + | HEALTH NET ADVANTAGE AFTER | | JULI PAREKHVERA | | 118 | | | + + + + | HEALTH NET ADVANTAGE AFTER | [id number] | JULI PAREKHVERA | | 118 | | | + + + + | [employer]OSS BLUE SHIELD | [id number] | JULI PAREKHVERA | | [id number] | | | + + + + | [place] NET OF [place] | [id number] | JULI SanchezRavin DIANA | | ADVANTAGE BEFORE 1- | | | + + + + | [employer] | | JULI SanchezRavin DIANA | | SERVICES | | | + + + + | BLUE CROSS BLUE SHIELD | | JULI DIANA | | ([phone]) | | | + + + + | [place] NET [place] | [id number] | JULI DIANA | | ADVANTAGE | | | + + + + | [employer]UE CROSS BLUE SHIELD | [id number] | JULI DIANA | | [phone] | | | + + + + | HEALTH NET USE FOR | [id number] | JULI DIANA | | [place]([phone]) | | | + + + + | HEALTH NET ([id number]) | [id number] | JULI DIANA | + + + + | BLUE CROSS BLUE SHIELD | [id number] | JULI DIANA | | [phone] | | | + + + + | BLUE CROSS BLUE SHIELD | [id number] | JULI DIANA | | [phone] | | | + + + + | HEALTH NET MEDICARE | [id number] | JULI DIANA | | ADVANTAGE | | | + + + + | BLUE CROSS BLUE SHIELD | [id number] | JULI DIANA | | [phone] &9 | | | + + + + | HEALTH NET ([id number]) &73 | [id number] | JULI DINAA | + + + + | BLUE CROSS BLUE SHIELD | [id number] | JULI DIANA | | [address] &9 | | | + + + + | HEALTH NET MEDICARE | [id number] | JULI DIANA | | ADVANTAGE &1821 | | | + + + + | [employer] | | JULI DIANA | | SERVICES &1145 | | | + + + + | [place] [employer]UE CROSS | [id number] | JULI DIANA | | &1745 | | | + + + + | MEDICARE PART B &[id number] | | JULI DIANA | + + + + | BLUE CROSS BLUE SHIELD | [id number] | JULI DIANA | | [address] &9 | | | + + + + | BLUE CROSS BLUE SHIELD | | JULI DIANA | | ([phone]) | | | + + + + | MEDICARE PART B [place] | | JULI PAREKHVERA | + + + + | [employer] MEDICARE PART B | | JULI DIANA | | &3 | | | + + + + | BLUE CROSS BLUE SHIELD | [id number] | JULI DIANA | | [address] &9 | | | + + + + | MEDICARE PART B [place] | | JULI DIANA | | &3 | | | + + + + | [employer] | | JULI DIANA | | SERVICES &1776 | | | + + + + | BLUE CROSS BLUE SHIELD | [id number] | JULI DIANA | | SECONDARY | | | + + + + | MEDICARE PART B | | JULI DIANA | + + + + | [employer] Medicare Part B | | JULI IBARRAA | + + + + | Medicare Part B [place] | | JULI DIANA | + + + + | Blue Cross Blue Shield | [id number] | JULI DIANA | | [address] | | | + + + + | [employer] Administrative | | JULI DIANA | | Services | | | + + + + | [employer] Administrative | | JULI DIANA | | Services | | | + + + + | [employer] NET COMMERCIAL AFTER | [id number] | JULI DIANA | | 1--18 | | | + + + + | BLUE CROSS BLUE SHIELD | [id number] | JULI DIANA | | [address] | | | + + + + Physical Examination + + + + + | Date | Exam | Name | Description | + + + + + | | PEDAL PULSE | Pedal pulse taking | Dorsalis pedis and | | | | (procedure) | posterior tibial | | | | | arteries are | | | | | palpable and | | | | | normal. Capillary | | | | | filling time is | | | | | less than three | | | | | seconds. | | | | | Temperature is warm | | | | | to the touch, and | | | | | is normal to the | | | | | foot and ankle. | | | | | There is normal | | | | | hair growth to the | | | | | digits and dorsal | | | | | foot. | + + + + + | | BP DIASTOLIC | Diastolic blood | 60 | | | | pressure | | + + + + + | | BP DIASTOLIC | BP Diastolic | 60 | + + + + + | | BP JOEL #2 | Diastolic blood | 60 | | | | pressure | | + + + + + | | BP JOEL #2 | BP Diastolic | 60 | + + + + + | | BP SYSTOLIC | Systolic blood | 108 | | | | pressure | | + + + + + | | BP SYSTOLIC | BP Systolic | 108 | + + + + + | | BP SYS #2 | Systolic blood | 108 | | | | pressure | | + + + + + | | BP SYS #2 | BP Systolic | 108 | + + + + + | | BMI | Body mass index | 34.36 | | | | (BMI) [Ratio] | | + + + + + | | BMI | Body mass index | 34.36 | | | | (BMI) [Percentile] | | | | | Per age and gender | | + + + + + | | BMI | BMI (Body Mass | 34.36 | | | | Index) | | + + + + + | | WEIGHT | Body weight | 181.2 | | | | Measured | | + + + + + | | WEIGHT | Weight Measured | 181.2 | + + + + + | [...]
--- OUTSIDE RECORDS SUMMARY | ~2019-03-25 | XMS ---
Demographics + + + | Address | [address] [place] [address] | | | [place] [address] | + + + | Home Phone | | + + + | Preferred Language | Unknown | + + + | Marital Status | D | + + + | Yarsani Affiliation | Unknown | + + + | Race | White | + + + | Ethnic Group | or | + + + Author + + + | Author | [facility] | + + + | Organization | [facility] | + + + | Address | [address] [facility] | | | [place] [address] | + + + | Phone | Unavailable | + + + Care Team Providers + + + + | Care Filling Station Laborer Name | Role | Phone | + + + + Unavailable | Unavailable | + + + + Reason for Visit + + + | Reason For Visit Description | Start Date | + + + | General Notes | | + + + | | Impression & Plan Problem 1: TYPE | | | 2 DIABETES MELLITUS WITH DIABETIC | | | NEPHROPATHY (ICD-250.40) (VHD50-F47.21) | | | Related Problem: | | | DIABETES MELLITUS- TYPE II 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- UNCONTROLLED (ICD-250.62) | | | (FMC35-X68.40) Related | | | Problem: TYPE 2 DIABETES MELLITUS WITH | | | HYPERGLYCEMIA (KKD74-C55.65) Status: | | | Inadequately Controlled Pt is checking | | | her glucoses up to 4 times daily--when | | | ever she eats and also before bed. She | | | forgot her glucose diary but states her | | | glucoses are in the 200s when she checks. | | | She does not usually check her glucoses | | | after eating but uses a sliding scale | | | insulin with meals. Will check her A1C | | | and see where she is today. May need to | | | adjust medications. Basaglar kwikpen | | | 100 unit/ml subcutaneous solution | | | [...] times daily for | | | neuropathy, Relion blood glucose test in | | | vitro strip Use to check blood sugars four | | | times per day DX: E11.65 SMITH: 99 | | | MONTHS, Relion prime monitor device use | | | with test strips to test BG daily, Bd | | | insulin syringe ultrafine 29g x 1/2" 0.5 | | | ml Use to inject insulin 5 times per day | | | Glyco Hemoglobin; A1C, | | | Ophthalmology Consult | | | ........................ Problem 2: | | | OSTEOARTHRITIS- KNEE- RIGHT (ICD-715.96) | | | (VLI85-Z24.9) Status: Inadequately | | | Controlled Seeing physical therapy but | | | not really gaining much relief from | | | symptoms. Will refer to orthopedics. | | | Orthopedic Consult | | | ........................ HPI | | | Chronic A 72-year-old female here for 3 | | | mo f/u DM. She is due for an A1C today. | | | States her blood sugars have been running | | | between upper 100-200's. She forgot to | | | bring in her paper of blood sugars to | | | review.................................... | | | ................................Edna | | | Hope [facility] November 26, 2017 12:54 PM | | | 72-year-old female here for 3 mo f/u DM. | | | Her right knee has still been bothering | | | her a lot. She has been doing physical | | | therapy but the pain is not getting | | | better. Pt feels like it catches or wants | | | to fold backwards on her from time to | | | time. She does not recall any particular | | | injury to this knee though her daughter | | | states she will sometimes mention slipping | | | in the tub a few weeks after such an | | | incident. | | | .......................................... | | | .........................Ambrose Ankur DNP | | | HEALTH CARE COORDINATOR November 26, 2017 1:15 PM Diabetes: | | | The diabetes type is [...] | | average fasting blood sugar is 250. | | | Symptoms of hyperglycemia include blurred | | | vision and occur [...] Number of Children: 7 | | | Latter-Day/Mosque: Advent Primary | | | Language: Belarusian Use of Belarusian | | | Language: Fluent Review of Systems | | | General: History reveals negative for | | | fevers, chills, sweats, anorexia, fatigue, | | | malaise. Cardiovascular: History | | | reveals negative for chest pain, | | | palpitations, peripheral edema. | | | Respiratory: History reveals negative for | | | cough, dyspnea, wheezing. | | | Gastrointestinal: History reveals negative | | | for nausea, vomiting, diarrhea, | | | constipation. Risk Factors Tobacco | | | Use: never smoker Alcohol Use:never | | | Drug Use: none Comments: Denies all drug | | | use....................................... | | | .............................Edna Hope | | | CCMA September 23, 2017 4:25 PM Other Risk [...] Intake Height: | | | 61in. Weight: 182 lbs. Temp: | | | 98.2deg.(tympanic) Pulse: 84(regular) | | | Resp: 19 BMI: 34.51 Wt ch.80 | | | Pulse Oximetry: O2 sat. at rest is 96% on | | | RA BP #1: 106/62 Position:sitting | | | Site:left arm Time:12:55 PM Vitals | | | entered by: Edna AZAR on November 26, | | | 2017 12:55 PM Physical Exam General: | | | Well developed, well nourished, in no | | | apparent distress Head: Normocephalic, | | | atraumatic Eyes: conjunctiva and sclera | | | clear, lids normal Ears: Grossly normal | | | hearing Lungs: Clear bilaterally with | | | normal respiratory effort. Heart: Regular | | | rate and rhythm, normal S1, S2, no | | | obvious murmur Abdomen: Soft, non-tender, | | | bowel sounds present MSK: grossly normal | | | gait and station. Pulses: Pulses normal | | | in all extremities Neurologic: Pt is | | | forgetful Skin: Intact without | | | significant lesions, or rashes. Psych: | | | Alert and cooperative. Normal mood and | | | affect, intact judgement and insight. | | | Mini Mental State Examination Total | | | Score 0 Immunizations | | | Prevnar 13|Series: 1|Trade Name: Prevnar | | | 13|Dose: 0.5|Admin By: Edna Nash | | | DOE|Rte: IM|Site: right [email or web address]|Mfr: | | | Ernesto|Lot: [id number]|Exp Date: | | | 06/26/2019|ND: [id number]|Vis-Version: | | | 03/31/2015|Vis-Given: | | | 11/26/2017|Vis-Signed: 11/26/2017|Vfc:V01 | | | ] Diabetic Rx Is your patient using | | | insulin? Yes # of tests per day: 4 | | | Length of need: 99 yrs Diagnosis: TYPE | | | 2 DIABETES MELLITUS WITH DIABETIC | | | NEPHROPATHY (ICD-250.40) (NGW58-P26.21), | | | DIABETES MELLITUS- TYPE II WITH | | | PERIPHERAL NEUROPATHY- UNCONTROLLED | | | (ICD-250.62) (TCI58-J05.40) Home Blood | | | Glucose Monitor: Yes Test Strips: 200 | | | Syringes: 200 Pen Neche: 100 Lancets: | | | 200 Medicare testing frequency | | | [...] guidelines testing. Medical Conditions: | | | Labile of fluctuating blood sugar, | | | Hypoglycemia, Hypertension, Hyperglycemia, | | | Uncontrolled (brittle) blood sugar | | | | + + + Assessments No information available. Chief Complaint No information available. History of Past Illness No information available.
--- OUTSIDE RECORDS SUMMARY | ~2019-03-25 | XMS | Continuity of Care Document ---
Demographics + + + | Address | [address] | | | [place] [address] | + + + | Home Phone | | + + + | Preferred Language | Unknown | + + + | Marital Status | Unknown | + + + | Religion Affiliation | Unknown | + + + | Race | Unknown | + + + | Ethnic Group | Unknown | + + + Author + + + | Author | [facility] | + + + | Organization | [facility] | + + + | Address | [address] [facility] | | | [place] [address] | + + + | Phone | | + + + Support + + + + + | Name | Relationship | Address | Phone | + + + + + | Mahamed Duke | Caregiver | Emergency | | | DO | | [place], | | | | | [place] [address] | | + + + + + | EVAN Pascual | Caregiver | [facility] | | | | | [place] [address] | | + + + + + | DOLORES DIANA | [facility] | [address] | | | | | [place] [address] | | + + + + + Care Team Providers + + + + | Care Neurophysiological Technician Name | Role | Phone | + + + + | EVAN Pascual | Unavailable | | + + + + Insurance Providers + + + + + | Payer Name | Policy Number | Subscriber Name | Relationship | + + + + + | [employer] | [id number] | JULI DIANA | SELF | | CLAIMS | | | | + + + + + | [employer] | [id number] | JULI DIANA | SELF | | PPO | | | | + + + + + Chief Complaint and Reason for Visit + + + | Reason for Visit | L ARM POSS SPIDER BITE | + + + Problems Active Medical [...] | | + + + +--------+ | Atypical chest pain | Unknown | 02/16/18 | Active | + + + +--------+ | ARF (acute renal | Unknown | 02/18/18 | Active | | failure) | | | | + + + +--------+ | Acute | Unknown | 02/18/18 | Active | | encephalopathy | | | | + + + [...] + + + + | Cephalex | 250 | MG | ORAL | Four | | | | | in | | | | Times a | | | | | Monohydr | | | | Day | | | | | ate | | | | | | | | | (Keflex) | | | | | | | | | 250 MG | | | | | | | | | CAP | | | | | | | | + + +-------+ + + + + + | Cholecal | 1,000 | UNIT | ORAL | Daily | | | | | ciferol | [...] Clonazep | Unknown | | ORAL | as | | | | | am | Dose | | | needed | | | | | (Klonopi | | | | for | | | | | n) | | | | Anxiety | | | | | (Unknown | | | | | | | | | | | | | | | | | | Strength | | | | | | | | | ) TAB | | | | | | | | + + +-------+ + + + + + | Docusate | 100 | MG | ORAL | Twice | | | | | Sodium | | | | Each Day | | | | | (Colace) | | | | | | | | | 100 MG | | | | | | | | | CAP | | | | | | | | + + +-------+ + + + + + | Furosemi | Unknown | | ORAL | Daily | | | | | de | Dose | | | | | [...] +-------+ + + + + + | INSULIN | 100 | UNIT | | Before | | LOW | | | LISPRO | | | | Meals | | SLIDING | | | (HUMALOG | | | | and at | | SCALE | | | ) 100 | | | | Bedtime | | SUBCUTAN | | | UNIT/1 | | | | | | EOUS | | | ML VIAL | | | | | | BEFORE | | | | | | | | | MEALS | | | | | | | | | AND AT | | | | | | | | | BEDTIME. | | + + +-------+ + + [...] + + + + | Insulin | 34 | UNIT | Subcutan | Daily | | | | | Glargine | [...] +-------+ + + + + + | Sulfamet | 1 | TAB | ORAL | Twice | 10 Days | | // | | hoxazole | | | | Each Day | | | | | /Trimeth | | | | for | | | | | oprim DS | | | | Infectio | | | | | | | | | n | | | | | (Bactrim | | | | | | | | | DS) 1 | | | | | | | | | EACH | | | | | | | [...] Cephalexin | Four Times a Day | 12/29/17 | Discontinued | | Monohydrate | | [...] | + + + + + | Aurora, Disposable | | Unknown | Discontinued | | (B-D | | | | | Precisionglide | | | | | Needle) 1 Each | | | | | Dis.needle | | | | | Dis.needle, 1 Each | | | | | Miscell | | | | + + + + + | Nitrofurantoin/Nitr | Twice Each Day | 02/16/18 | Discontinued | | ofuran Mac | | | | | (Macrobid) 100 Mg | | | | | Cap Cap, 100 Mg | | | | | Oral [...] | MENTAL HEALTH PROBLEMS/ | No | 02/18/18 | + + + + + + + + + | Query | Response | Start Date | Stop Date | + + + + + | Smoking status/ | Never Smoker | | | + + + + + Hospital Discharge Instructions No hospital discharge instructions. Plan of Care + + + | Discharge Date | 03/15/18 | + + + | Disposition | HOME | + + + | Condition at Discharge | Good | + + + | Instructions/Education Provided | Cellulitis | + + + | Prescriptions | See Medications Section | + + + | Referrals | Ambrose PascualP - | + + + | Additional Instructions/Education | follow up with PMD in 2-3 d. return to ED | | | if worsening symptoms. Takemedications as | | | prescribed. | + + + Functional Status No functional status results. Allergies, Adverse Reactions, Alerts + +---------+ + +--------+ + | Allergen | Type | Severity | Reaction | Status | Last Updated | + +---------+ + +--------+ + | hydrocodone | Allergy | Mild | HALLUCINATIO | Active | 03/15/18 | | bit | | | NS | | | + +---------+ + +--------+ + | lisinopril | Allergy | Unknown | | Active | 03/15/18 | + +---------+ + +--------+ + | morphine | Allergy | Mild | HALLUCINATIO | Active | 03/15/18 | | | | | N | | | + +---------+ + +--------+ + | ciprofloxaci | Allergy | Unknown | | Active | 03/15/18 | | n | | | | | | + +---------+ + +--------+ + Immunizations No Known History of Immunizations. Vital Signs + + + + | Vital Reading | Collection Date/Time | Result | + + + + | Blood Pressure | 03/15/18 0:32am | 146/74 | + + + + | Blood Pressure Source | 02/19/18 8:05am | Right Arm | + + + + | Temperature | 03/15/18 0:32am | 97.8 F | + + + + | Temperature Source | 03/15/18 0:32am | Temporal | + + + + | Respiratory Rate | 03/15/18 0:32am | 18 | + + + + | Pulse Rate | 03/15/18 0:32am | 94 | + + + + | Bedside Pulse Oximetry | 03/15/18 0:32am | 98 | + + + + | Height | 03/15/18 0:32am | 5 ft 1 in | + + + + | Height | 1020/18 0:32am | 154.94 cm | + + + + | Weight | 1020/18 0:32am | 186 lb | + + + + | Weight | 1020/18 0:32am | 84.37 kg | + + + + | Body Mass Index | 20/18 0:32am | 35.1 kg/m2 | + + + + Results No known relevant diagnostic tests, laboratory data and/or discharge summary. Procedures No Known History of Procedures. Encounters + + + + + + | Encounter | Location | Arrival/Admit | Discharge/Depar | Attending | | | | Date | t Date | Provider | + + + + + + | Departed | [facility] | 03/15/18 0:05am | 03/15/18 0:47am | Mahamed Duke | | Emergency | [facility] | | | Kena DO | + + + + + + | Registered | [facility] | 03/14/18 6:40pm | | Patricio | | Clinical | [facility] | | | Daniela AVERY | + + + + + + | Registered | [facility] | 03/14/18 6:34pm | | Patricio, | | Clinical | [facility] [place] | | | Daniela AVERY | + + + + + +"
--- OUTSIDE RECORDS SUMMARY | ~2019-03-25 | XMS | Clinical Summary ---
Demographics + + + | Address | [address] [place] [address] | | | [place] [address] | + + + | Home Phone | | + + + | Preferred Language | Unknown | + + + | Marital Status | D | + + + | Anabaptist Affiliation | Unknown | + + + | Race | White | + + + | Ethnic Group | or | + + + Author + + + | Author | [facility] | + + + | Organization | [facility] | + + + | Address | [address] | | | [place] [address] | + + + | Phone | Unavailable | + + + Care Team Providers + +------+ + | Care Basket Weaver Name | Role | Phone | + [...] tion | | +---------+---------+---------+---------+---------+---------+---------+---------+---------+ | DIABETE | [id number] | | Active | | David W | | Diabeti | | | S | [id number] | | | | Theen | | [...] s | | +---------+---------+---------+---------+---------+---------+---------+---------+---------+ | MILD | [id number] | | Active | | Maulik | [...] | CTOMY, | | | | | Marks | | d | | [...] uterus | | +---------+---------+---------+---------+---------+---------+---------+---------+---------+ | COLONIC | [id number] | | Active | | Emeka | | Adenoma | | | | | | | | Petre | [...] | | | +---------+---------+---------+---------+---------+---------+---------+---------+---------+ | CONSTIP | [id number] | | Active | | Emeka | | Constip | | | ATION | 8 | /13 | | /13 | Petre | | ation | | | | (SNOMED | | | | MD | | | | | | CT) | | | | | | | | +---------+---------+---------+---------+---------+---------+---------+---------+---------+ | CHANGE | [id number] | | Active | | Emeka | | Altered | | | IN | 9 | /13 | | /13 | Petre | | bowel | | | BOWEL | (SNOMED | | | | MD | | functio | | | HABITS | CT) | | | | | | n | | +---------+---------+---------+---------+---------+---------+---------+---------+---------+ | DECREAS | [id number] | | Active | | Emeka | | Decreas | | | ED | 6 | /13 | | /13 | Petre | | e in | | | APPETIT | (SNOMED | | | | MD | | appetit | | | E | CT) | | | | | | e | | +---------+---------+---------+---------+---------+---------+---------+---------+---------+ | WEIGHT | [id number] | | Active | | Emeka | | Abnorma | | | LOSS | 01 | /13 | | /13 | Petre | | l | | | ABNORMA | (SNOMED | | | | MD | | weight | | | L | CT) | | | | | | loss | | +---------+---------+---------+---------+---------+---------+---------+---------+---------+ | NAUSEA | [id number] | | Active | | Emeka | | Nausea | | | ALONE | 07 | /13 | | /13 | Petre | | | | | | (SNOMED | | | | MD | | | | | | CT) | | | | | | | | +---------+---------+---------+---------+---------+---------+---------+---------+---------+ | RECTAL | [id number] | | Active | | Emeka | | Rectal | | | BLEEDIN | 2 | /13 | | /13 | Petre | | hemorrh | | | G | (SNOMED | | | | MD | | age | | | | CT) | | | | | | | | +---------+---------+---------+---------+---------+---------+---------+---------+---------+ | DEMENTI | [id number] | | Active | | Christen | | Dementi | | | A | 6 | /10 | | /10 | J. 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 | | | | | PROGRES | (SNOMED | | | | [place] | | progres | | | SIVE | CT) | | | | ta 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 | | sive | | | RENAL | | | | | | | renal | | | FAILURE | | | | | | | failure | | +---------+---------+---------+---------+---------+---------+---------+---------+---------+ | ANEMIA | [id number] | | Active | | Christen | | Anemia | | | | 00 | /10 | | /10 | J. | | | | | | (SNOMED | | | | [place] | | | | | | CT) | | | | ta 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 | | | | +---------+---------+---------+---------+---------+---------+---------+---------+---------+ | DEMENTI | 9235949 | | Active | | Christen | | Procedu | | | A | 03 | / | | / | J. | | re | | | SCREENI | (SNOMED | | | | [place] | | carried | | | NG | CT) | | | | ta 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 | | out on | | | | | | | | | | | | | | | | | | | | subject | | +---------+---------+---------+---------+---------+---------+---------+---------+---------+ | FALL | [id number] | | Active | | Christen | | At risk | | | RISK | | / | | | J. 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 | | c | | | MELLITU | (SNOMED | | | | [place] | | periphe | | | S, TYPE | CT) | | | | ta 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 | | ral | | | II [...] s | | +---------+---------+---------+---------+---------+---------+---------+---------+---------+ | CORNS | [id number] | | Inactiv | | Kali | | Corns | | | AND | | | e | | Hakeem | | and | | | CALLOSI | (SNOMED | | | | DPM | | callus | | | TIES | CT) | | | | | | | | +---------+---------+---------+---------+---------+---------+---------+---------+---------+ | HAMMER | 5609589 | | Active | | Kali | [...] | | | +---------+---------+---------+---------+---------+---------+---------+---------+---------+ | HALLUX | 8666553 | | Active | | Kali | [...] ropathy | | +---------+---------+---------+---------+---------+---------+---------+---------+---------+ | DIABETE | 7108174 | | Active | | Kali | [...] s | | +---------+---------+---------+---------+---------+---------+---------+---------+---------+ | ONYCHOM | 6015451 | | Active | | Kali | | Onychom | | | YCOSIS | | | | | Hakeem | | ycosis | | | | (SNOMED | | | | DPM | | | | | | CT) | | | | | | | | +---------+---------+---------+---------+---------+---------+---------+---------+---------+ | HEARTBU | 4613929 | | Active | | Tiesha | | Heartbu | | | RN | 0 | /19 | | /19 | | | rn | | | | (SNOMED | | | | [place] | | | | | | CT) | | | | MD | | | | +---------+---------+---------+---------+---------+---------+---------+---------+---------+ | TYPE 2 | [id number] | | Active | | Tiesha | | Disorde | | | DIABETE | 03 | / | | / | | | r due | | | S | (SNOMED | | | | [place] | | to type | | | [...] | (ICD-10 | / | | | | | diabete | | | S | -CM) | | | | [place] | | s | | | MELLITU [...] athy | | +---------+---------+---------+---------+---------+---------+---------+---------+---------+ | UTI | 7573566 | | Active | | Pako | | Urinary | | | | 5 | /13 | | /13 | [place] | | tract | | | | (SNOMED | | | | auff | | infecti | | | | CT) | | | | 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 | | ous | | | | | | | | | | disease | | +---------+---------+---------+---------+---------+---------+---------+---------+---------+ | LOCALIZ | 7669580 | | Active | | [place] | [...] | | | +---------+---------+---------+---------+---------+---------+---------+---------+---------+ | LIPOMA | 3203937 | | Active | | Lauranc | | Lipoma | | | | 2 | /14 | | /14 | e W | | (clinic | | | | (SNOMED | | | | Lila | | al) | | | | CT) | | | | MD | | | | +---------+---------+---------+---------+---------+---------+---------+---------+---------+ | VITAMIN | 4589776 | | Active | | David Paez | | Vitamin | | | D | 6 | /14 | | /15 | Theen | | D | | | DEFICIE | (SNOMED | | | | MD FACE | | deficie | | | NCY | CT) | | | | FACP | | ncy | | +---------+---------+---------+---------+---------+---------+---------+---------+---------+ | OBESITY | 1853853 | | Active | | David Paez | | Obesity | | | , BMI | 01 | /14 | | /15 | Theen | | | | | 35-39.9 | (SNOMED | | | | MD FACE | | | | | , ADULT | CT) | | | | FACP | | | | +---------+---------+---------+---------+---------+---------+---------+---------+---------+ | DIABETE | 2300525 | | Removed | | David W | | Diabeti | | | S | 857087 | /14 | | /15 | Theen [...] | | s | | +---------+---------+---------+---------+---------+---------+---------+---------+---------+ | ETIENNE | 1268918 | | Inactiv | | Kali | | Acquire | | | VALGUS, | 1 | /01 | e | /01 | Hakeem | | d | | | | (SNOMED | | | | DPM | | hallux | | | ACQUIRE | CT) | | | | | | valgus | | | D | | | | | | | | | +---------+---------+---------+---------+---------+---------+---------+---------+---------+ | ELHAM | 5188029 | | Inactiv | | Kali | [...] | | | +---------+---------+---------+---------+---------+---------+---------+---------+---------+ | ONYCHOM | 1146868 | | Inactiv | | Kali | [...] ropathy | | +---------+---------+---------+---------+---------+---------+---------+---------+---------+ | DIABETE | 6231029 | | Inactiv | | Kali | [...] s | | +---------+---------+---------+---------+---------+---------+---------+---------+---------+ | SCREENI | 7087216 | | Resolve | | Lauranc | | Depress | | | NG FOR | | | d | /10 | e W | | ion | | | DEPRESS | (SNOMED | | | | Lila | | screeni | | | ION | CT) | | | | MD | | ng | | +---------+---------+---------+---------+---------+---------+---------+---------+---------+ | SCREENI | 5745261 | | Resolve | | Lauranc | [...] | | | +---------+---------+---------+---------+---------+---------+---------+---------+---------+ | SCREENI | 7903850 | | Resolve | | Lauranc | [...] ng | | +---------+---------+---------+---------+---------+---------+---------+---------+---------+ | SCREENI | 4478894 | | Removed | | Geetha | | Alcohol | | | NG FOR | 01 | / | | /10 | [place] | | | | | ALCOHOL | (SNOMED | | | | [facility] | | consump | | | ISM | CT) | | | | | | tion | | | | | | | | | | screeni | | | | | | | | | | ng | | +---------+---------+---------+---------+---------+---------+---------+---------+---------+ | SCREENI | 3149884 | | Removed | | Geetha | | Screeni | | | NG FOR | 05 | / | | / | [place] | | ng for | | | UNSPECI | (SNOMED | | | | [facility]MA | | disorde | | | FIED | CT) | | | | | | r | | | CONDITI | | | | | | | | | | ON | | | | | | | | | +---------+---------+---------+---------+---------+---------+---------+---------+---------+ | SCREENI | 9951256 | | Removed | | Geetha | | Depress | | | NG FOR | | / | | | Patrick | | ion | | | DEPRESS | (SNOMED | | | | [facility]MA | | screeni | | | ION | CT) | | | | | | ng | | +---------+---------+---------+---------+---------+---------+---------+---------+---------+ | RENAL | 1563957 | | Active | | Lauranc | [...] e | | +---------+---------+---------+---------+---------+---------+---------+---------+---------+ | EDEMA | 8867214 | | Active | | Lauranc | | Edema | | | | 08 | /15 | | /11 | e W | | | | | | (SNOMED | | | | Lila | | | | | | CT) | | | | MD | | | | +---------+---------+---------+---------+---------+---------+---------+---------+---------+ | RENAL | 2386615 | | Active | | Luz | [...] e | | +---------+---------+---------+---------+---------+---------+---------+---------+---------+ | PERIPHE | 6513750 | | Active | | Lauranc | [...] disease | | +---------+---------+---------+---------+---------+---------+---------+---------+---------+ | CANDIDI | 8497546 | | Active | | Susanna | | Candidi | | | ASIS, | | | | | Medel | | asis of | | | SKIN | (SNOMED | | | | MD | | skin | | | | CT) | | | | | | | | +---------+---------+---------+---------+---------+---------+---------+---------+---------+ | DYSURIA | 5499498 | | Active | | Erica | | Dysuria | | | | 1 | | | | Paul | | | | | | (SNOMED | | | | MA | | | | | | CT) | | | | | | | | +---------+---------+---------+---------+---------+---------+---------+---------+---------+ | VAGINIT | 6804368 | | Active | | Erica | | Vaginit | | | IS | 1 | /31 | | /31 | Paul | | is | | | | (SNOMED | | | | MA | | | | | | CT) | | | | | | | | +---------+---------+---------+---------+---------+---------+---------+---------+---------+ | RLQ | 3465279 | | Resolve | | Lauranc | | Right | | | PAIN | 02 | | d | /11 | e W | | lower | | | | (SNOMED | | | | Lila | | quadran | | | | CT) | | | | MD | | t pain | | +---------+---------+---------+---------+---------+---------+---------+---------+---------+ | ABDOMIN | 8274086 | | Resolve | | Lauranc | [...] | | | PROPHYL | (ICD-10 | /21 | d | /21 | e W | | er for [...] | | | +---------+---------+---------+---------+---------+---------+---------+---------+---------+ | KNEE | 1438648 | | Active | | Lauranc | | Knee | | | PAIN | 3 | /14 | | /14 | e W | | pain | | | | (SNOMED | | | | Lila | | | | | | CT) | | | | MD | | | | +---------+---------+---------+---------+---------+---------+---------+---------+---------+ | Questio | 3321628 | | Correct | | Lauranc | [...] | | | +---------+---------+---------+---------+---------+---------+---------+---------+---------+ | VERTEBR | 6128062 | | Active | | Lauranc | [...] e | | +---------+---------+---------+---------+---------+---------+---------+---------+---------+ | VERTIGO | 2752123 | | Active | | Luz | | Vertigo | | | | | | | / | Asad | | | | | | (SNOMED | | | | RN | | | | | | CT) | | | | | | | | +---------+---------+---------+---------+---------+---------+---------+---------+---------+ | CHEST | 4746626 | | Inactiv | | Genny | | Chest | | | PAIN | 9 | | e | /02 | [place]auf[place] | | pain | | | | (SNOMED | | | | | | | | | | CT) | | | | | | | | +---------+---------+---------+---------+---------+---------+---------+---------+---------+ | CHEST | 9544761 | | Inactiv | | Lauranc | [...] fied | | +---------+---------+---------+---------+---------+---------+---------+---------+---------+ | CEREBRO | 5064818 | | Active | | Rogers | | 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 | (SNOMED | | | | MD | | r | | | DISEASE | CT) | | | | | | disease | | +---------+---------+---------+---------+---------+---------+---------+---------+---------+ | History | 5141213 | | Active | | Rogers | | Cerebra | | | of | | / | | /16 | Laith | | [...] | | | +---------+---------+---------+---------+---------+---------+---------+---------+---------+ | DIABETI | 8604406 | | Active | | Rogers | | Diabeti | | | C | | / | | / | Laith [...] thy | | +---------+---------+---------+---------+---------+---------+---------+---------+---------+ | HYPERLI | 7869233 | | Active | | Rogers | | Hyperli | | | PIDEMIA | 4 | | | / | Laith | | pidemia | | | | (SNOMED | | | | MD | | | | | | CT) | | | | | | | | +---------+---------+---------+---------+---------+---------+---------+---------+---------+ | History | 5194695 | | Active | | Rogers | [...] e | | +---------+---------+---------+---------+---------+---------+---------+---------+---------+ | CEREBRA | 5311685 | | Correct | | Rogers | | Cerebra | | | L | 07 | | ion | /16 | Laith [...] s | | +---------+---------+---------+---------+---------+---------+---------+---------+---------+ | ABDOMIN | 5079124 | | Removed | | Patricia | [...] | | | +---------+---------+---------+---------+---------+---------+---------+---------+---------+ | RLQ | 3409326 | | Removed | | Patricia | [...] fied | | +---------+---------+---------+---------+---------+---------+---------+---------+---------+ | CARPAL | 3699721 | | Active | | Rogers | | Carpal | | | TUNNEL | 9 | /25 | | /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 | | | | MD | | 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, LEFT | CT) | | | | | | e | | +---------+---------+---------+---------+---------+---------+---------+---------+---------+ | Questio | 3763202 | | Removed | | Rogers | | Vertebr | | | n of | 08 | /25 | | /25 | Laith | | obasila | | [...] | | | +---------+---------+---------+---------+---------+---------+---------+---------+---------+ | GAIT | 6752630 | | Active | | Rogers | [...] e | | +---------+---------+---------+---------+---------+---------+---------+---------+---------+ | PARESTH | 8562983 | | Active | | Rogers | | Paresth | | | ESIA, | 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 | Laith | | esia of | | | HANDS | (SNOMED | | | | MD | | hand | | | | CT) | | | | | | | | +---------+---------+---------+---------+---------+---------+---------+---------+---------+ | PERIPHE | 1842895 | | Correct | | Rogers | | Periphe | | | RAL | | / | ion | /25 | Laith | | ral | | | NEUROPA | (SNOMED | | | | MD | | nerve | | | THY | CT) | | | | | | disease | | +---------+---------+---------+---------+---------+---------+---------+---------+---------+ | THYROID | 6935077 | | Active | | Luz | | Thyroid | | | NODULE | 05 | /20 | | /20 | [place] | | nodule | | | | (SNOMED | | | | [facility] | | | | | | CT) | | | | | | | | +---------+---------+---------+---------+---------+---------+---------+---------+---------+ | TIA | 7937300 | | Active | | Lauranc | [...] a | | +---------+---------+---------+---------+---------+---------+---------+---------+---------+ | SYNCOPE | 6329385 | | Active | | Lauranc | | Syncope | | | | 07 | | | /10 | e W | | | | | | (SNOMED | | | | Lila | | | | | | CT) | | | | MD | | | | +---------+---------+---------+---------+---------+---------+---------+---------+---------+ | GASTROP | 6033079 | | Active | | Lauranc | | 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 | | | | Lila | | syndrom | | | | CT) | | | | MD | | e | | +---------+---------+---------+---------+---------+---------+---------+---------+---------+ | CONSTIP | 6249995 | | Active | | Lauranc | | Chronic | | | ATION, | 09 | /08 | | /08 | e W | | | | | CHRONIC | (SNOMED | | | | Lila | | constip | | | | CT) | | | | MD | | ation | | +---------+---------+---------+---------+---------+---------+---------+---------+---------+ | POSTHER | 6932708 | | Active | | Lauranc | | Posther | | | 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 | (SNOMED | | | | Lila | | neuralg | | | IA | CT) | | | | MD | | ia | | +---------+---------+---------+---------+---------+---------+---------+---------+---------+ | DIZZINE | 6540255 | | Active | | Lauranc | | Dizzine | | | SS | 03 | /08 | | /08 | e W | | ss | | | | (SNOMED | | | | Lila | | | | | | CT) | | | | MD | | | | +---------+---------+---------+---------+---------+---------+---------+---------+---------+ | DEHYDRA | 6678276 | | Active | | Lauranc | | Dehydra | | | TION | 6 | /08 | | /08 | e W | | tion | | | | (SNOMED | | | | Lila | | | | | | CT) | | | | MD | | | | +---------+---------+---------+---------+---------+---------+---------+---------+---------+ | DIABETE | 6832242 | | Active | | Lauranc | [...] | | | +---------+---------+---------+---------+---------+---------+---------+---------+---------+ | HYPERTE | 8126884 | | Active | | Lauranc | | Hyperte | | | NSION | 3 | / | | | e W [...] mix and | | | NA | [id number] | Maulik | | BOWEL PREP | [...] take 2 | | | GABAPENTIN | 9968924383 | Bailey W | | 300 MG [...] Inject 0.6 | | | LIRAGLUTID | [id number] | Christen Ramirez | | MG/3ML | mg daily | | | E | 2 | [place] | | SOPN | | | | | | 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 | + + + + + + + + | ONDANSETRO | 1 tab | | | ONDANSETRO | 6334618709 | Kali | | N HCL 4 MG | every 4 | | | N HCL | 3 | Palacio DPM | | TABS | hours | | | | | | + + + + + + + + | VICTOZA 18 | | | | LIRAGLUTID | [id number] | Bailey W | | MG/3ML | [...] 1 tab | | | GABAPENTIN | 4934791875 | Jesus | | 300 MG | po tid . | | | | 0 | Ethan MD | | CAPS | Pt states | | | | | | | | as needed | | | | | | + + + + + + + + | COLACE 100 | 1 tab by | | | DOCUSATE | [id number] | Kali | | MG CAPS | mouth | | | SODIUM | 0 | Palacio DPM | | | daily at | | | | | | | | bedtime | | | | | | + + + + + + + + | ASPIRIN | take 1 | | | ASPIRIN | 6755259107 | Rogers | | 325 MG | [...] 1 tab | | | PREGABALIN | 7604162352 | Bailey Paez | | MG CAPS | three | | | | 3 | Lila MD | | | times per | | | | | | | | day | | | | | | + + + + + + + + | GLUCOPHAGE | 1 tab one | | | METFORMIN | 3995209802 | Bailey W | | XR 500 MG | time per | | | HCL | 0 | Lila MD | | [id number] | day | | | | | | + + + + + + + + | HUMALOG | BS <150 - | | | INSULIN | 1065191833 | Christen Ramirez | | 100 | No insulin | | | LISPRO | 1 | [place] | | UNIT/ML | BS | | | (HUMAN) | | 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 | | SOLN | 150-200 | | [...] 50 units | | | INSULIN | [id number] | Pako | | UNIT/ML | once per | | | GLARGINE | 3 | [place]auf | | SOLN | day. 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 | | | states she | | | | | | | | is taking | | | | | | | | 56 units | | | | | | | | every AM | | | | | | + + + + + + + + | NITROFURAN | Take one | | | NITROFURAN | [id number] | Edna | | TOIN | capsule [...] | One | | | ERGOCALCIF | 5785972034 | Mariano | | QUANG 67567 | capsule by | | | QUANG [...] take 2 | | | GABAPENTIN | 1250168735 | Mariano | | 300 MG | [...] 10ml QAM | | | METFORMIN | 3391010811 | Mariano | | MG/5ML | Liquid due | | | HCL | 2 | Ariella | | SOLN | to | | | | | CCMA | | | Dysphagia | | | | | | + + + + + + + + | ASPIRIN EC | take 1 | | | ASPIRIN | 5841135684 | Rogers | | 325 MG | tablet | | | | 0 | Laith MD | | TBEC | daily | | | | | | + + + + + + + + | RELION | Use to | | | GLUCOSE | 1101429346 | Kali | | BLOOD | test BG | | | BLOOD | 4 | Palacio DPM | | GLUCOSE | one time | | | | | | | TEST STRP | per day | | | | | | + + + + + + + + | NITROFURAN | | | | NITROFURAN | 7012698475 | Edna | | TOIN | | [...] one tablet | | | DOCUSATE | 6844146560 | Laurance W | | MG CAPS | by mouth | | | SODIUM | 0 | Lila MD | | | at bedtime | | | | | | + + + + + + + + | BIOTIN 1 | Take one | | | BIOTIN | 4377519583 | Jesus | | MG CAPS | daily in | | | | 2 | Ethan MD | | | the AM | | | | | | + + + + + + + + | BACTRIM DS | 1 by mouth | | | TRIMETHOPR | 5363963432 | Laurance W | | 800-160 | twice a | | | IM-SULFAME | 1 | Lila MD | | MG TABS | day for 3 | | | THOXAZOLE | | | | | days | | | | | | + + + + + + + + | ASPIRIN 81 | one time | | | ASPIRIN | 9747823853 | Mariano | | MG TABS | per day | | | | 5 | Ariella | | | | | | | | CCMA | + + + + + + + + | GABAPENTIN | two times | | | GABAPENTIN | 2619547132 | Mariano | | 100 MG | per day | | | | 1 | Ariella | | CAPS | | | | | | CCMA | + + + + + + + + | BIOTIN 1 | | | | BIOTIN | 9557757037 | Kali | | MG CAPS | | | | | 2 | Palacio DPM | + + + + + + + + | PIOGLITAZO | Take 1 tab | | | PIOGLITAZO | 1419695543 | Jesus | | NE HCL 15 [...] two times | | | MECLIZINE | 4867693070 | Mariano | | HCL 25 MG [...] take 1 | | | ASPIRIN | 2142667194 | Mariano | | 325 MG | tablet | | | | 0 | Ariella | | TBEC | daily | | | | | CCMA | + + + + + + + + | PIOGLITAZO | Take 1 tab | | | PIOGLITAZO | 8056646011 | Christen Ramirez | | NE HCL 15 | by mouth | | | NE HCL | 0 | [place] | | MG TABS | one time | | | | | 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 | | | per day in | | | | | | | | the AM | | | | | | + + + + + + + + | NEURONTIN | take 1 tab | | | GABAPENTIN | 3088561139 | Bailey W | | 300 MG | po tid | | | | 0 | Lila MD | | CAPS | | | | | | | + + + + + + + + | DIOVAN 160 | one time | | | VALSARTAN | 6618487265 | Mariano | | MG TABS | per day | | | | 0 | Ariella | | | | | | | | CCMA | + + + + + + + + | ASPIRIN | take 1 | | | ASPIRIN | 5551335189 | Bailey W | | 325 MG [...] Take one | | | POTASSIUM | [id number] | Jesus | | CHLORIDE | cap daily | | | CHLORIDE | 5 | Ethan MD | | ER 10 MEQ | in the AM | | | | | | | CR-CAPS | | | | | | | + + + + + + + + | KEFLEX 500 | 1 pill | | | CEPHALEXIN | 0575845042 | Tiesha | | MG CAPS | twice a | | | | 0 | [place] MD | | | day for 7 | | | | | | | | days | | | | | | + + + + + + + + | GABAPENTIN | one tablet | | | GABAPENTIN | 1191551367 | Laurance W | | 100 MG [...] 1 tab | | | MECLIZINE | 4569001441 | Laurance W | | HCL 25 MG | three | | | HCL | 1 | Lila MD | | TABS | times per | | | | | | | | day | | | | | | + + + + + + + + | BYETTA 5 | 0.02 ml | | | EXENATIDE | 5921328166 | Bailey W | | MCG PEN 5 | injection | | | | 1 | Lila MD | | MCG/0.02ML | two times | | | | | | | SOPN | per day | | | | | | + + + + + + + + | FLUCONAZOL | take one | | | FLUCONAZOL | [id number] | Bailey W | | E 150 [...] tab two | | | CILOSTAZOL | [id number] | Kali | | 100 MG | times per | | | | 1 | Hakeem DPM | | TABS | day | | | | | | + + + + + + + + | RIOMET 500 | 10ml's two | | | METFORMIN | [id number] | Bailey W | | MG/5ML | [...] D | | | | CHOLECALCI | [id number] | Kali | | 1000 UNIT | | | | FEROL | 0 | Hakeem DPM | | TABS | | | | | | | + + + + + + + + | NEURONTIN | take 1 tab | | | GABAPENTIN | [id number] | Christen Ramirez | | 300 MG | po tid . | | | | 0 | [place] | | CAPS | Pt states | | | | | 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 | | | as needed | | | | | | + + + + + + + + | BYETTA 5 | Take as | | | EXENATIDE | [id number] | Christen Ramirez 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 | | SOPN | in the AM [...] two times | | | METFORMIN | [id number] | Mariano | | HCL 1000 | per day | | | HCL | 1 | Ariella | | MG TABS | | | | | | CCMA | + + + + + + + + | GABAPENTIN | Take 2 | | | GABAPENTIN | 4977205839 | Franciscoance W | | 300 MG [...] TAKE ONE | | | PREGABALIN | 1063221932 | Kesha | | MG CAPS | [...] 1 TAB | | | BUSPIRONE | 1419812662 | Kali | | HCL 7.5 MG | three | | | HCL | 5 | Palacio DPM | | TABS | times per | | | | | | | | day | | | | | | + + + + + + + + | LANTUS 100 | 25 units | | | INSULIN | 6642243307 | Jesus | | UNIT/ML | two [...] two times | | | MECLIZINE | 1294239282 | Laurance W | | HCL 25 MG | per day | | | HCL | 2 | Lila MD | | TABS | | | | | | | + + + + + + + + | MECLIZINE | One tab by | | | MECLIZINE | 7472232206 | Laurance W | | HCL 25 [...] Take one | | | CHOLECALCI | 3462889430 | Jesus | | 1000 UNIT | tablet | | | FEROL | 0 | Ethan MD | | TABS | daily in | | | | | | | | the AM | | | | | | + + + + + + + + | POTASSIUM | | | | POTASSIUM | 4607317551 | Kali | | CHLORIDE | | | | CHLORIDE | 5 | Palacio DPM | | ER 10 MEQ | | | | | | | | CR-CAPS | | | | | | | + + + + + + + + | DULOXETINE | 1 tab one | | | DULOXETINE | 4078893546 | Bailey W | | HCL 30 MG | time per | | | HCL | 6 | Lila MD | | CPEP | day | | | | | | + + + + + + + + | DRAMAMINE | take 1-2 | | | DIMENHYDRI | 9480697532 | Christen Ramirez | | 50 MG TABS | tabs 4 | | | MARCELA | 1 | Raumakita | | | times per | | | | | 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 | | | day as | | | | | | | | needed | | | | | | + + + + + + + + | VICTOZA 18 | | | | LIRAGLUTID | 9724691562 | Jesus | | MG/3ML | | | | E | 2 | Ethan MD | | SOPN | | | | | | | + + + + + + + + | BASAGLAR | 1 pen | | | INSULIN | 1632444399 | Christen Ramirez | | KWIKPEN | every 3 | | | GLARGINE | 9 | [place] | | 100 | days 56 | | | | | 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 Pt | | | | | | | | states as | | | | | | | | needed | | | | | | + + + + + + + + | OMEPRAZOLE | Take one | | | OMEPRAZOLE | 4300687565 | Christen J. 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 | | | | | 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 | | | q.a.m. | | | | | | + + + + + + + + | BD INSULIN | Use 5 | | | INSULIN | 2039974617 | Christen J. | | SYRINGE | times | | | SYRINGE-NE | 1 | [place]ita | | ULTRAFINE | daily to | | | EDLE U-100 | | 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 | | 29G X 1/2" | inject [...] 3U before | | | INSULIN | 1160051216 | Christen J. 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 | | UNIT/ML | | | | | | | | SOPN | | | | | | | + + + + + + + + | VICTOZA 18 | Inject 0.6 | | | LIRAGLUTID | 5467617452 | Christen Ramirez | | MG/3ML | mg daily | | | E | 2 | [place] | | SOPN | | | | | | 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 | + + + + + + + + | LIPITOR 20 | take 1 | | | ATORVASTAT | 6911488152 | Christen Ramirez | | MG TABS | tablet by | | | IN CALCIUM | 0 | Raum[place]ita | | | mouth | | | | | 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 | | | daily in | | | | | | | | the | | | | | | | | evening | | | | | | + + + + + + + + | BASAGLAR | 56 Units | | | INSULIN | 9441696516 | Christen Ramirez | | KWIKPEN | by mouth | | | GLARGINE | 9 | [place] | | 100 | every | | | | | 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 | | UNIT/ML | morning | | | | | | | SOPN | | | | | | | + + + + + + + + | VICTOZA 18 | 5 unit AM | | | LIRAGLUTID | 1451217521 | Christen Ramirez | | MG/3ML | and 5 | | | E | 2 | [place] | | SOPN | units PM | | | | | 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 | + + + + + + + + | BASAGLAR | 1 pen | | | INSULIN | 5114511081 | Christen Ramirez | | KWIKPEN | every 3 | | | GLARGINE | 9 | [place]ita | | 100 | days 56 | | | | | 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 | | | the AM | | | | | | + + + + + + + + | SUPREP | mix and | | | NA | 2740781955 | Emeka | | BOWEL PREP | [...] pill BID | | | DOCUSATE | [id number] | Christen Ramirez | | MG CAPS | | | | SODIUM | 0 | [place] | | | | | | | | 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 | + + + + + + + + | HUMALOG | BS <150 - | | | INSULIN | 2705985077 | Tiesha | | 100 | No insulin | | | LISPRO | 1 | Duffield MD | | UNIT/ML | BS | [...] Use daily | | | INSULIN | 3366002358 | Tiesha | | NEEDLE | to [...] Use daily | | | GLUCOSE | 1329969722 | Tiesha | | BLOOD | to check | | | BLOOD | 4 | Duffield MD | | GLUCOSE | blood | | | | | | | TEST STRP | sugar | | | | | | + + + + + + + + | LASIX 80 | 1 tab by | | | FUROSEMIDE | 6390272649 | Tiesha | | MG TABS | mouth one | | | | 5 | Duffield MD | | | time per | [...] per | | | FOOT CARE | 5853845893 | Tiesha | | INSOLES | custom | | | PRODUCTS | 2 | Duffield MD | | MISC | fit from [...] 1 pill | | | CEPHALEXIN | 4839607723 | Pako | | MG CAPS | twice a | | | | 0 | Middlekauf | | | day for 7 | | | | | f 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 | | | days | | | | | | + + + + + + + + | BYETTA 5 | 0.02 ml | | | EXENATIDE | 1621600942 | Laurance W | | MCG PEN 5 | injection | | | | 1 | Lila MD | | MCG/0.02ML | two times | | | | | | | SOPN | per day | | | | | | + + + + + + + + | LYRICA 100 | 1 tab | | | PREGABALIN | 9597209668 | Laurance W | | MG CAPS | three | | | | 8 | Lila MD | | | times per | | | | | | | | day | | | | | | + + + + + + + + | DRAMAMINE | take 1-2 | | | DIMENHYDRI | 9832578115 | Laurance W | | 50 MG [...] Use 5 | | | INSULIN | 4714003122 | Bailey W | | SYRINGE | [...] | | | | | | | SMTIH: 99 | | | | | | | | months | | | | | | + + + + + + + + | PLAVIX 75 | 1 tab by | | | CLOPIDOGRE | 4644470273 | Laurance W | | MG TABS | mouth one | | | L | 4 | Lila MD | | | time per | | | BISULFATE | | | | | day | | | | | | + + + + + + + + | LANTUS 100 | 25 units | | | INSULIN | 9210856787 | Laurance W | | UNIT/ML | two times | | | GLARGINE | 3 | Lila MD | | SOLN | per day | | | | | | + + + + + + + + | LASIX 80 | 1 tab by | | | FUROSEMIDE | 2707954102 | Laurance W | | MG TABS | mouth one | | | | 5 | Lila MD | | | time per | | | | | | | | day | | | | | | + + + + + + + + | FUROSEMIDE | 1 tab one | | | FUROSEMIDE | 9577772391 | Laurance W | | 40 MG | time per | | | | 0 | Lila MD | | TABS | day | | | | | | + + + + + + + + | BUSPIRONE | 1 TAB | | | BUSPIRONE | 2123018001 | Laurance W | | HCL 7.5 MG | three | | | HCL | 5 | Lila MD | | TABS | times per | | | | | | | | day | | | | | | + + + + + + + + | COLACE 100 | 1 tab by | | | DOCUSATE | 6620017906 | Laurance W | | MG CAPS | mouth | | | SODIUM | 0 | Lila MD | | | daily at | | | | | | | | bedtime | | | | | | + + + + + + + + | BACTRIM DS | 1 by mouth | | | TRIMETHOPR | 3634785110 | Laurance W | | 800-160 | twice a | | | IM-SULFAME | 1 | Lila MD | | MG TABS | day for 3 | | | THOXAZOLE | | | | | days | | | | | | + + + + + + + + | LYRICA 50 | Take 1 tab | | | PREGABALIN | 3197431970 | Laurance W | | MG CAPS [...] tab one | | | METFORMIN | 8492121579 | Laurance W | | XR 500 MG | time per | | | HCL | 0 | Lila MD | | [id number] | day | | | | | | + + + + + + + + | NYSTATIN-T | Apply thin | | | NYSTATIN-T | 6214420126 | Laurance W | | RIAMCINOLO | layer to | | | RIAMCINOLO | 0 | Lila MD | | NE | affected | | | NE | | | | 355047-4.1 | area BID | | | | | | | UNIT/GM-% | prn for | | | | | | | CREA | itching | | | | | | + + + + + + + + | PIOGLITAZO | Take 1 tab | | | PIOGLITAZO | 1713436624 | Laurance W | | NE HCL 15 | by mouth | | | NE HCL | 0 | Lila MD | | MG TABS | one time | | | | | | | | per day | | | | | | + + + + + + + + | ONDANSETRO | 1 tab | | | ONDANSETRO | 5449815055 | Laurance W | | N HCL 4 MG | every 4 | | | N HCL | 3 | Lila MD | | TABS | hours | | | | | | + + + + + + + + | LANTUS 100 | 56 units | | | INSULIN | 0790777248 | Laurance W | | UNIT/ML | in the | | | GLARGINE | 3 | Lila MD | | SOLN | morning | | | | | | + + + + + + + + | MECLIZINE | 1 tab | | | MECLIZINE | 0089108166 | Laurance W | | HCL 25 MG | three | | | HCL | 1 | Lila MD | | TABS | times per | | | | | | | | day | | | | | | + + + + + + + + | LIPITOR 20 | take 1 | | | ATORVASTAT | 2891969705 | Laurance W | | MG TABS | tablet by | | | IN CALCIUM | 0 | Lila MD | | | mouth | | | | | | | | daily | | | | | | + + + + + + + + | OMEPRAZOLE | Take one | | | OMEPRAZOLE | 1315558208 | Laurance W | | 40 MG [...] tab two | | | CILOSTAZOL | 5026451432 | Laurance W | | 100 MG | times per | | | | 1 | Lila MD | | TABS | day | | | | | | + + + + + + + + | RELION | Use to | | | GLUCOSE | 8827757071 | Laurance W | | BLOOD | test BG | | | BLOOD | 4 | Lila MD | | GLUCOSE | one time | | | | | | | TEST STRP | per day | | | | | | + + + + + + + + | GABAPENTIN | Take 2 | | | GABAPENTIN | 9180976227 | Laurance W | | 300 MG [...] TAB one | | | VALSARTAN | 0876570708 | Francisocance W | | 160 MG | time per | | | | 2 | Lila MD | | TABS | day | | | | | | + + + + + + + + | LYRICA 50 | TAKE ONE | | | PREGABALIN | 9007416239 | Bailey W | | MG CAPS [...] 0.2 ml | | | EXENATIDE | 6765586393 | Laurance W | | MCG PEN 5 | injection | | | | 1 | Lila MD | | MCG/0.02ML | two times | | | | | | | SOPN | per day | | | | | | + + + + + + + + | VICTOZA 18 | 1.2 mg | | | LIRAGLUTID | 2083867036 | Bailey W | | MG/3ML | injected | | | E | 3 | Lila MD | | SOPN | martin | | | | | | + + + + + + + + | KEFLEX 500 | one po TID | | | CEPHALEXIN | 3409875267 | Susanna | | MG CAPS | | | | | 0 | Gianfranco LUIS | + + + + + + + + | FLUCONAZOL | take one | | | FLUCONAZOL | 4156036864 | Susanna | | E 150 MG | tablet PO | | | E | 0 | Gianfranco LUIS | | TABS | x 1 repeat | | | | | | | | in 3 days | | | | | | + + + + + + + + | LYRICA 50 | 1 tab | | | PREGABALIN | 9232368718 | Laurance W | | MG CAPS | three | | | | 3 | Lila MD | | | times per | | | | | | | | day | | | | | | + + + + + + + + | GABAPENTIN | Take 2 | | | GABAPENTIN | 4516887844 | Laurance W | | 300 MG [...] tab one | | | DULOXETINE | 3433810361 | Laurance W | | HCL 30 MG | time per | | | HCL | 6 | Lila MD | | CPEP | day | | | | | | + + + + + + + + | RIOMET 500 | 10ml's two | | | METFORMIN | 7274822466 | Laurance W | | MG/5ML | [...] TAB one | | | VALSARTAN | 5538650414 | Laurance W | | MG TABS | time per | | | | 0 | Lila MD | | | day | | | | | | + + + + + + + + | MECLIZINE | One tab by | | | MECLIZINE | 6404301343 | Laurance W | | HCL 25 [...] take 2 | | | GABAPENTIN | 6272169241 | Bailey W | | 300 MG [...] tab one | | | VALSARTAN | 9981705038 | Bailey W | | MG TABS | time per | | | | 4 | Lila MD | | | day | | | | | | + + + + + + + + | VICTOZA 18 | 0.6 mg | | | LIRAGLUTID | 9468186886 | Bailey W | | MG/3ML | [...] tab one | | | SITAGLIPTI | 8215388702 | Laurance W | | 100 MG | time per | | | N | 8 | Lila MD | | TABS | day | | | PHOSPHATE | | | + + + + + + + + | GABAPENTIN | 2 tabs two | | | GABAPENTIN | 4623041389 | Laurance W | | 300 MG | times per | | | | 0 | Lila MD | | CAPS | day | | | | | | + + + + + + + + | DIOVAN 160 | 1 by mouth | | | VALSARTAN | 7437864846 | Laurance W | | MG TABS | every day | | | | 0 | Lila MD | + + + + + + + + | GABAPENTIN | 1 tab at | | | GABAPENTIN | 2824226811 | Franciscoance W | | 100 MG [...] 28 units | | | INSULIN | 8532000200 | Bailey W | | UNIT/ML | two times | | | GLARGINE | 0 | Lila MD | | SOLN | per day | | | | | | + + + + + + + + | LISINOPRIL | take 1 | | | LISINOPRIL | 1388796541 | Rogers | | 20 MG | tablet by | | | | 1 | Laith LUIS | | TABS | mouth | | | | | | | | daily | | | | | | + + + + + + + + | LANTUS 100 | 56 units | | | INSULIN | 4022299124 | Laurance W | | UNIT/ML | daily | | | GLARGINE | 0 | Lila MD | | SOLN | | | | | | | + + + + + + + + | GABAPENTIN | 1 by mouth | | | GABAPENTIN | 1379536267 | Laurance W | | 100 MG [...] | One | | | ERGOCALCIF | 1582445541 | Laurance W | | QUANG 23091 | capsule by | | | QUANG [...] by mouth | | | LISINOPRIL | 0487176194 | Laurance W | | 5 MG TABS | one time | | | | 0 | Lila MD | | | per day | | | | | | + + + + + + + + | RIOMET 500 | 10ml QAM | | | METFORMIN | 3640376962 | Laurance W | | MG/5ML | Liquid due | | | HCL | 2 | Lila MD | | SOLN | to | | | | | | | | Dysphagia | | | | | | + + + + + + + + | COLACE 100 | one tablet | | | DOCUSATE | 8962048237 | Laurance W | | MG CAPS | by mouth | | | SODIUM | 0 | Lila MD | | | at bedtime | | | | | | + + + + + + + + | MECLIZINE | 1 by mouth | | | MECLIZINE | 1325804264 | Laurance W | | HCL 25 [...] one tablet | | | METFORMIN | 7256672807 | Laurance W | | HCL 1000 | by mouth | | | HCL | 0 | Lila MD | | MG TABS | twice a | | | | | | | | day | | | | | | + + + + + + + + | ASPIRIN 81 | 1 by mouth | | | ASPIRIN | 8941683578 | Laurance W | | MG TABS | every day | | | | 5 | Lila MD | + + + + + + + + | GABAPENTIN | one tablet | | | GABAPENTIN | 3266416740 | Laurance W | | 100 MG [...] | | | | | | | 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] | | | | | | | Elma*` | | | | | | | | [id number] | | | | | | | | `[id number] | | | | | | | | 59`[id number]` | | | | | | | [...] +---+---+---+ + + + | Office Visit: F/u [...] | | + + +--------+-------+ +---+ + Plan of Care + + + + | Type | Date | Detail | + + + + | Appointment | 03:30 PM | David ACEVEDO FACP, | | | | [address] | | | [address], [place], [address], | | | | | + + + + | Appointment | 04:30 PM | David ACEVEDO FACP, | | | | [address] | | | [address], [place], [address], | | | | | + + + + | Appointment | 12:30 PM | Christen NOELP, | | | | [address] [facility], [address], [place], [address], | | | | | + + + + | Referral | | GI Consult | | | | Emeka Clark MD, [address] | | | [address], | | | | [place], [address] | | | | | + + + + | Referral | | GI Consult | | | | Emeka Clark MD, [address] | | | | [address], | | | | [place], [address] | | | | | + + + + | Referral | | Nephrology Evaluation | | | | Anisa Reeves MD, | | | | [address] [facility] [address] | | | | [address], [place], [address] | | | | | | | | | + + + + | Referral | | Nephrology Evaluation | | | | MD Iraj Juarez, | | | | [address], | | | | [address], [place], [address] | | | | | | | | | + + + + | Referral | | Surgical Consult | | | | Jesus Long, [address] | | | | [address], | | | | [place], [address] | | | | | + + + + | Referral | | Surgical Consult | | | | Jesus Long, [address] | | | | [address], | | | | [place], [address] | | | | | + + + + | Referral | | Endocrinology Consult | + + + + | Referral | | Podiatry Consult | | | | Kali Palacio, [address] | | | | [place], | | | | [place], [address] | | | | | + + + + | Referral | | Nephrology Evaluation | | | | MD Iraj Juarez, | | | | [address], | | | | [address], [place], [address] | | | | | | | | | + + + + | Referral | | Podiatry Consult | | | | Kali Palacio, [address] | | | | [place], | | | | [place], [address] | | | | | + + + + | Referral | | Nephrology Evaluation | | | | MD Iraj Juarez, | | | | [address], | | | | [address], [place], [address] | | | | | | | | | + + + + | Referral | | Neurology Consult | | | | RAUL Werner Phone #, | | | | [address] [facility] | | | | [address], [place], [address] | | | | | + + + + | Referral | | Neurology Consult | | | | RAUL Werner Phone #, | | | | [address] [facility] | | | | [address], [place], [address] | | | | | + + + + | Referral | | MRA Head-WO Con | | | | Dian Atkins, [address] | | | [address] [facility], | | | | [place], [address] | | | | | + + + + | Referral | | MRA Head-WO Con | | | | Dian Atkins, [address] | | | | [address], | | | | [place], [address] | | | | | + + + + | Referral | | MRA Head-WWO Con | | | | Dian Atkins, [address] | | | | [address], | | | | [place], [address] | | | | | + + + + | Referral | | MRA Head-WWO Con | | | | Dian Atkins, [address] | | | | [address], | | | | [place], [address] | | | | | + + + + +---+ + | | Referral excluded from report: | +---+ + + + + + | Referral | | Physical Therapy Evaluation | | | | [facility], [address] | | | | [address] | | | | [address], [address] | | | | | | | | | + + + + | Referral | | Neurology Consult | | | | MD August Bourne, [address] | | | | [address] [place], | | | | [place], [address] | | | | | + + + + | Referral | | Neurology Consult | | | | Rogers Ozuna, [address] | | | | [address] [place], | | | | [place], [address] | | | | | + + + + | Referral | | Cardiology Consult | | | | MD Pelon Fay, | | | | [address] | | | | [address], [place], [address] | | | | | | | | | + + + + | Referral | | GI Consult | | | | [address] | | | | [address], [place], [address] | | | | | | | | | + + + + | Referral | | Physical Therapy Evaluation | | | | [facility], [address] | | | | [address] | | | | [address], [place], [address] | | | | | | | | | + + + + | Referral | | Diabetic Education - | | | | Individual | | | | [facility], | | | | [address], | | | | [place], [address] | | | | | + + + + | Referral | | GI Consult | | | | [address] | | | | [address], [place], [address] | | | | | | | | | + + + + | Referral | | US Soft Tissue Head/Neck | | | | Exam Dian | | | | Scheduling, [address] | | | | [place], [place], | | | | [address] | | | | | + + + + | Referral | | Neurology Consult | | | | [place] [facility] | | | | [facility], [address] [facility], | | | | [place], [address] | | | | | + + + + | Referral | | VL Carotid-Cerebral Duplex | | | | Dian | | | | Milly, [address] | | | | [place], | | | | [address] | | | | | + + + + | Referral | | Holter Monitor | | | | Dian Atkins, [address] | | | | [address], | | | | [place], [address] | | | | | + + [...] Microalb/Creat Ratio UR, | | | | [place] | + + + + | Pending [...] | + + + + + | CPT-86669 | Glucose by monitor | | | + + + + + | CPT-17457 | UA Dipstick | | | + + + + + | CPT-85161 | UA Dipstick | | | + + + + + | CPT-51988 | Initial Psych | | | | | Evaluation | | | + + + + + | CPT-34583 | [facility], [facility] or | | | | | more [address] | | | + + + + [...] | + + + + + | CPT-65616 | Trim Skin Lesions | | | | | [address] | | | + + + + + | CPT-17139 | UA Dipstick | | | + + + + + | CPT-28148 | [facility], 6 or | | | | | more 600[address] | | | + + + + [...] | + + + + + | CPT-71030 | [facility], 6 or | | | | | more [address] | | | + + + + [...] | + + + + + | CPT-39735 | MRA Head-WWO Con | | | + + + + + +---+ + | | Order excluded from report: | +---+ + + + + + + | CPT-45549 | Physical Therapy | | | | | Evaluation | | | + + + + + | [id number] | [facility] Generic Patient | | | | | Encounter Service | | | | | (from patch) | | | + + + + + | [id number] | [Recorded for [facility]] | | | | | Documentation of | | | | | current medications | | | | | (procedure) | | | + + + + + | [id number] | [Recorded for [facility]] | | | | | Documentation of | | | | | current medications | | | | | (procedure) | | | + + + + + | [id number] | [Recorded for [facility]] | | | | | Documentation of | | | | | current medications | | | | | (procedure) | | | + + + + + | [id number] | [Recorded for [facility]] | | | | | Documentation of | | | | | current medications | | | | | (procedure) | | | + + + + + | FREE T4 93549 | T4 Free | | | + + + + + | T3 FREE 34357 | T3 Free | | | + + + + + | TSH 64758 | TSH | | | + + + + + | GLYCO HGB 47657 | HgbA1C | | | + + + + + | [id number] | [facility] Generic Patient | | | | | Encounter Service | | | | | (from patch) | | | + + + + + | [id number] | [Recorded for [facility]] | | | | | Documentation of | | | | | current medications | | | | | (procedure) | | | + + + + + | [id number] | [facility] Generic Patient | | | | | Encounter Service | | | | | (from patch) | | | + + + + + | CPT-49840 | EKG- tracing with | | | | | report (94482) | | | + + + + + | [id number] | [Recorded for [facility]] | | | | | Documentation of | | | | | current medications | | | | | (procedure) | | | + + + + + | [id number] | [facility] Generic Patient | | | | | Encounter Service | | | | | (from patch) | | | + + + + + | CPT-Troponin l | Troponin I | | | | 61275 | | | | + + + + + | [id number] | [Recorded for [facility]] | | | | | Documentation of | | | | | current medications | | | | | (procedure) | | | + + + + + | CPT-20595 | Physical Therapy | | | | | Evaluation | | | + + + + + | CPT-G8427 | Current Medications | | | | | Documented | | | + + + + + | [id number] | [Recorded for [facility]] | | | | | Documentation of | | | | | current medications | | | | | (procedure) | | | + + + + + | CPT-G8427 | Current Medications | | | | | Documented | | | + + + + + | [id number] | [Recorded for [facility]] | | | [...] + + + + | CHEM PROF 60684 | CMP (Comprehensive | | | | | Metabolic Panel) | | | + + + + + | GLYCO HGB 80446 | HgbA1C | | | + + + + + | CPT-Q2037 | Fluvirin | | | | | (Influenza) | | | | | Med/Atrio | | | + + + + + | RISK 81937 | Lipid Profile | | | + + + + + | VIT D HYDR 05449 | Vit D, 25 hydroxy | | | + + + + + | CYC CITRU 63777 | Cyclic | | | | | Citrullinated Pept | | | | | IgG | | | + + + + + | RA QUANT 04323 | Rheumatoid Factor | | | | | (quant) | | | + + + + + | TSH 69679 | TSH | | | + + + + + | IVANA 84911 | IVANA | | | + + + + + | GLYCO HGB 85103 | HgbA1C | | | + + + + + | CPT-52070 | EKG- tracing with | | | | | report (34521) | | | + + + + + | CPT-47504 | ANDRE | | | + + + + + | 41918 72277 | Holter Monitor 48H | | | | | Panel | | | + + + + + | 05602 85943 | Holter Monitor 72H | | | | | Panel | | | + + + + + | CPT-83261 | Barium Swallow MBS | | | | | with Speech | | | + + + + + | 94147 21711 | US Abdomen-Cmplt | | | | | and Pelvic-Lmtd | | | + + + + + | CPT-86031 | US Soft Tissue | | | | | Head/Neck Exam | | | + + + + + | CPT-79448 | Motor nerve testing | | | | | - each nerve | | | + + + + + | RISK 40980 | Lipid Profile | | | + + + + + | ESR 70464 | Sedimentation Rate | | | | | (ESR) | | | + + + + + | SPEP [place] [address] | SPEP with JESÚS if | | | | | indicated | | | + + + + + | B12+FOLATE MULTIPLE | B-12 - Folate | | | + + + + + | PFA 71960 | Platelet Function | | | | | Assay | | | + + + + + | 99083 | MRA Head-WO Con | | | + + + + + | 54611 | MR Head-WO Con | | | + + + + + | [id number] | VL Carotid-Cerebral | | | | | Duplex | | | + + + + + | [id number] | Holter Monitor | | | + + + + + | D DIMER 44263 | D-dimer (tyrese) | | | + + + + + | 83759 | CT Head-WWO Con | | | + + + + + | VIT D HYDR 89987 | Vit D, 25 hydroxy | | | + + + + + | TSH 45488 | TSH | | | + + + + + | B12+FOLATE MULTIPLE | B-12 - Folate | | | + + + + + | UA 22923 | Urinalysis | | | + + + + + | CHEM PROF 35952 | CMP (Comprehensive | | | | | Metabolic Panel) | | | + + + + + | CBC 54197 | CBC w/ Diff - w/ | | | | | platelets | | | + + + + + | GLYCO HGB 90731 | HgbA1C | | | + + + + + | TSH 39769 | TSH | | | + + + + + | VIT D HYDR 09768 | Vit D, 25 hydroxy | | [...]
--- OUTSIDE RECORDS SUMMARY | ~2019-03-25 | XMS | Clinical Summary ---
Demographics + + + | Address | [address] [place] [address] | | | [place] [address] | + + + | Home Phone | | + + + | Preferred Language | Unknown | + + + | Marital Status | D | + + + | Church Affiliation | Unknown | + + + | Race | White | + + + | Ethnic Group | or | + + + Author + + + | Author | [facility] | + + + | Organization | [facility] | + + + | Address | [address] | | | [place] [address] | + + + | Phone | Unavailable | + + + Care Team Providers + +------+ + | Care Electron Gun Assembler Name | Role | Phone | + [...] tion | | +---------+---------+---------+---------+---------+---------+---------+---------+---------+ | DIABETE | [id number] | | Active | | David W | | Diabeti | | | S | [address] | | | | Theen | | [...] s | | +---------+---------+---------+---------+---------+---------+---------+---------+---------+ | MILD | [id number] | | Active | | Maulik | [...] uterus | | +---------+---------+---------+---------+---------+---------+---------+---------+---------+ | COLONIC | [id number] | | Active | | Emeka | [...] | | | +---------+---------+---------+---------+---------+---------+---------+---------+---------+ | CONSTIP | [id number] | | Active | | Emeka | | Constip | | | ATION | 8 | /13 | | /13 | Petre | | ation | | | | (SNOMED | | | | MD | | | | | | CT) | | | | | | | | +---------+---------+---------+---------+---------+---------+---------+---------+---------+ | CHANGE | [id number] | | Active | | Emeka | | Altered | | | IN | 9 | /13 | | /13 | Petre | | bowel | | | BOWEL | (SNOMED | | | | MD | | functio | | | HABITS | CT) | | | | | | n | | +---------+---------+---------+---------+---------+---------+---------+---------+---------+ | DECREAS | 0576450 | | Active | | Emeka | | Decreas | | | ED | 6 | /13 | | /13 | Petre | | e in | | | APPETIT | (SNOMED | | | | MD | | appetit | | | E | CT) | | | | | | e | | +---------+---------+---------+---------+---------+---------+---------+---------+---------+ | WEIGHT | [id number] | | Active | | Emeka | | Abnorma | | | LOSS | 01 | /13 | | /13 | Petre | | l | | | ABNORMA | (SNOMED | | | | MD | | weight | | | L | CT) | | | | | | loss | | +---------+---------+---------+---------+---------+---------+---------+---------+---------+ | NAUSEA | 5827079 | | Active | | Emeka | | Nausea | | | ALONE | 07 | /13 | | /13 | Petre | | | | | | (SNOMED | | | | MD | | | | | | CT) | | | | | | | | +---------+---------+---------+---------+---------+---------+---------+---------+---------+ | RECTAL | 5908728 | | Active | | Emeka | | Rectal | | | BLEEDIN | 2 | /13 | | /13 | Petre | | hemorrh | | | G | (SNOMED | | | | MD | | age | | | | CT) | | | | | | | | +---------+---------+---------+---------+---------+---------+---------+---------+---------+ | DEMENTI | 9143304 | | Active | | Christen | | Dementi | | | A | 6 | /10 | | /10 | J. | | a | | | WITHOUT | (SNOMED | | | | [place] | | | | | | CT) | | | | ta [employer] REPRESENTATIVE | | | | | BEHAVIO | | | | | | | | | | RAL | | | | | | | | | | DISTURB | | | | | | | | | | ANCE | | | | | | | | | +---------+---------+---------+---------+---------+---------+---------+---------+---------+ | CHRONIC | 2996118 | | Active | | Christen | | Chronic | | | | 03 | /10 | | /10 | J. | | | | | PROGRES | (SNOMED | | | | [place] | | progres | | | SIVE | CT) | | | | ta RETAIL SALES REPRESENTATIVE | | sive | | | RENAL | | | | | | | renal | | | FAILURE | | | | | | | failure | | +---------+---------+---------+---------+---------+---------+---------+---------+---------+ | ANEMIA | 3823545 | | Active | | Christen | | Anemia | | | | 00 | /10 | | /10 | J. | | | | | | (SNOMED | | | | [place] | | | | | | CT) | | | | ta [employer] SALES REPRESENTATIVE | | | | +---------+---------+---------+---------+---------+---------+---------+---------+---------+ | DEMENTI | 8406074 | | Active | | Christen | | Procedu | | | A | 03 | / | | / | J. | | re | | | SCREENI | (SNOMED | | | | [place] | | carried | | | NG | CT) | | | | ta [employer] SAL[employer] REPRESENTATIVE | | out on | | | | | | | | | | | | | | | | | | | | subject | | +---------+---------+---------+---------+---------+---------+---------+---------+---------+ | FALL | [id number] | | Active | | Christen | | At risk | | | RISK | | / | | | J. | | for | | | | (SNOMED | | | | [place] | | falls | | | | CT) | | | | ta [employer] SAL[employer] REPRESENTATIVE | | | | +---------+---------+---------+---------+---------+---------+---------+---------+---------+ | DIABETE | 0531776 | | Resolve | | Christen | | Diabeti | | | S | 906128 | /14 | d | /15 | J. | | c | | | MELLITU | (SNOMED | | | | [place] | | periphe | | | S, TYPE | CT) | | | | ta [employer] SALES REPRESENTATIVE | | ral | | | II [...] s | | +---------+---------+---------+---------+---------+---------+---------+---------+---------+ | CORNS | 2329954 | | Inactiv | | Kali | | Corns | | | AND | | | e | | Hakeem | | and | | | CALLOSI | (SNOMED | | | | DPM | | callus | | | TIES | CT) | | | | | | | | +---------+---------+---------+---------+---------+---------+---------+---------+---------+ | HAMMER | 3802877 | | Active | | Kali | [...] | | | +---------+---------+---------+---------+---------+---------+---------+---------+---------+ | HALLUX | 9665690 | | Active | | Kali | [...] ropathy | | +---------+---------+---------+---------+---------+---------+---------+---------+---------+ | DIABETE | 8166112 | | Active | | Kali | [...] s | | +---------+---------+---------+---------+---------+---------+---------+---------+---------+ | ONYCHOM | 1203685 | | Active | | Kali | | Onychom | | | YCOSIS | | | | | Hakeem | | ycosis | | | | (SNOMED | | | | DPM | | | | | | CT) | | | | | | | | +---------+---------+---------+---------+---------+---------+---------+---------+---------+ | HEARTBU | 5303462 | | Active | | Tiesha | | Heartbu | | | RN | 0 | /19 | | /19 | | | rn | | | | (SNOMED | | | | [place] | | | | | | CT) | | | | MD | | | | +---------+---------+---------+---------+---------+---------+---------+---------+---------+ | TYPE 2 | 0594414 | | Active | | Tiesha | | Disorde | | | DIABETE | 03 | / | | / | | | r due | | | S | (SNOMED | | | | [place] | | to type | | | [...] S | -CM) | | | | [place] | | s | | | MELLITU [...] athy | | +---------+---------+---------+---------+---------+---------+---------+---------+---------+ | UTI | 7579879 | | Active | | Pako | | Urinary | | | | 5 | /13 | | /13 | [place] | | tract | | | | (SNOMED | | | | auff | | infecti | | | | CT) | | | | RET[employer] SALES REPRESENTATIVE | | ous | | | | | | | | | | disease | | +---------+---------+---------+---------+---------+---------+---------+---------+---------+ | LOCALIZ | 2395364 | | Active | | [place]lena | [...] | | | +---------+---------+---------+---------+---------+---------+---------+---------+---------+ | LIPOMA | 6821084 | | Active | | Lauranc | | Lipoma | | | | 2 | /14 | | /14 | e W | | (clinic | | | | (SNOMED | | | | Lila | | al) | | | | CT) | | | | MD | | | | +---------+---------+---------+---------+---------+---------+---------+---------+---------+ | VITAMIN | 1545643 | | Active | | David Paez | | Vitamin | | | D | 6 | /14 | | /15 | Theen | | D | | | DEFICIE | (SNOMED | | | | MD FACE | | deficie | | | NCY | CT) | | | | FACP | | ncy | | +---------+---------+---------+---------+---------+---------+---------+---------+---------+ | OBESITY | 6535302 | | Active | | David Paez | | Obesity | | | , BMI | 01 | /14 | | /15 | Theen | | | | | 35-39.9 | (SNOMED | | | | MD FACE | | | | | , ADULT | CT) | | | | FACP | | | | +---------+---------+---------+---------+---------+---------+---------+---------+---------+ | DIABETE | 7307404 | | Removed | | David W | | Diabeti | | | S | 493270 | /14 | | /15 | Theen [...] s | | +---------+---------+---------+---------+---------+---------+---------+---------+---------+ | ETIENNE | 2567132 | | Inactiv | | Kali | [...] | | | +---------+---------+---------+---------+---------+---------+---------+---------+---------+ | ELHAM | 0828261 | | Inactiv | | Kali | [...] | | | +---------+---------+---------+---------+---------+---------+---------+---------+---------+ | ONYCHOM | 1920738 | | Inactiv | | Kali | [...] ropathy | | +---------+---------+---------+---------+---------+---------+---------+---------+---------+ | DIABETE | 6831415 | | Inactiv | | Kali | [...] s | | +---------+---------+---------+---------+---------+---------+---------+---------+---------+ | SCREENI | 7718113 | | Resolve | | Lauranc | | Depress | | | NG FOR | | | d | /10 | e W | | ion | | | DEPRESS | (SNOMED | | | | Lila | | screeni | | | ION | CT) | | | | MD | | ng | | +---------+---------+---------+---------+---------+---------+---------+---------+---------+ | SCREENI | 4449945 | | Resolve | | Lauranc | [...] | | | +---------+---------+---------+---------+---------+---------+---------+---------+---------+ | SCREENI | 8463507 | | Resolve | | Lauranc | [...] ng | | +---------+---------+---------+---------+---------+---------+---------+---------+---------+ | SCREENI | 5367503 | | Removed | | Geetha | | Alcohol | | | NG FOR | 01 | / | | /10 | [place] | | | | | ALCOHOL | (SNOMED | | | | [facility] | | consump | | | ISM | CT) | | | | | | tion | | | | | | | | | | screeni | | | | | | | | | | ng | | +---------+---------+---------+---------+---------+---------+---------+---------+---------+ | SCREENI | 5939841 | | Removed | | Geetha | | Screeni | | | NG FOR | 05 | / | | / | [place] | | ng for | | | UNSPECI | (SNOMED | | | | [facility] | | disorde | | | FIED | CT) | | | | | | r | | | CONDITI | | | | | | | | | | ON | | | | | | | | | +---------+---------+---------+---------+---------+---------+---------+---------+---------+ | SCREENI | 1986309 | | Removed | | Geetha | | Depress | | | NG FOR | | / | | | Patrick | | ion | | | DEPRESS | (SNOMED | | | | [facility] | | screeni | | | ION | CT) | | | | | | ng | | +---------+---------+---------+---------+---------+---------+---------+---------+---------+ | RENAL | 6704621 | | Active | | Lauranc | [...] e | | +---------+---------+---------+---------+---------+---------+---------+---------+---------+ | EDEMA | 3673460 | | Active | | Lauranc | | Edema | | | | 08 | /15 | | /11 | e W | | | | | | (SNOMED | | | | Lila | | | | | | CT) | | | | MD | | | | +---------+---------+---------+---------+---------+---------+---------+---------+---------+ | RENAL | 5107150 | | Active | | Luz | [...] e | | +---------+---------+---------+---------+---------+---------+---------+---------+---------+ | PERIPHE | 8954225 | | Active | | Lauranc | [...] disease | | +---------+---------+---------+---------+---------+---------+---------+---------+---------+ | CANDIDI | 7036315 | | Active | | Susanna | | Candidi | | | ASIS, | | | | | Medel | | asis of | | | SKIN | (SNOMED | | | | MD | | skin | | | | CT) | | | | | | | | +---------+---------+---------+---------+---------+---------+---------+---------+---------+ | DYSURIA | 1322548 | | Active | | Erica | | Dysuria | | | | 1 | | | | Paul | | | | | | (SNOMED | | | | MA | | | | | | CT) | | | | | | | | +---------+---------+---------+---------+---------+---------+---------+---------+---------+ | VAGINIT | 6876347 | | Active | | Erica | | Vaginit | | | IS | 1 | /31 | | /31 | Paul | | is | | | | (SNOMED | | | | MA | | | | | | CT) | | | | | | | | +---------+---------+---------+---------+---------+---------+---------+---------+---------+ | RLQ | 8868055 | | Resolve | | Lauranc | | Right | | | PAIN | 02 | | d | /11 | e W | | lower | | | | (SNOMED | | | | Lila | | quadran | | | | CT) | | | | MD | | t pain | | +---------+---------+---------+---------+---------+---------+---------+---------+---------+ | ABDOMIN | 7390707 | | Resolve | | Lauranc | [...] | | | +---------+---------+---------+---------+---------+---------+---------+---------+---------+ | KNEE | 1446939 | | Active | | Lauranc | | Knee | | | PAIN | 3 | /14 | | /14 | e W | | pain | | | | (SNOMED | | | | Lila | | | | | | CT) | | | | MD | | | | +---------+---------+---------+---------+---------+---------+---------+---------+---------+ | Questio | 0927339 | | Correct | | Lauranc | [...] | | | +---------+---------+---------+---------+---------+---------+---------+---------+---------+ | VERTEBR | 5904245 | | Active | | Lauranc | [...] e | | +---------+---------+---------+---------+---------+---------+---------+---------+---------+ | VERTIGO | 9640964 | | Active | | Luz | | Vertigo | | | | | | | / | Asad | | | | | | (SNOMED | | | | RN | | | | | | CT) | | | | | | | | +---------+---------+---------+---------+---------+---------+---------+---------+---------+ | CHEST | 6987588 | | Inactiv | | Genny | | Chest | | | PAIN | 9 | | e | /02 | [place] | | pain | | | | (SNOMED | | | | | | | | | | CT) | | | | | | | | +---------+---------+---------+---------+---------+---------+---------+---------+---------+ | CHEST | 0997860 | | Inactiv | | Lauranc | [...] fied | | +---------+---------+---------+---------+---------+---------+---------+---------+---------+ | CEREBRO | 7778314 | | Active | | Rogers | | 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 | (SNOMED | | | | MD | | r | | | DISEASE | CT) | | | | | | disease | | +---------+---------+---------+---------+---------+---------+---------+---------+---------+ | History | 0992870 | | Active | | Rogers | [...] | | | +---------+---------+---------+---------+---------+---------+---------+---------+---------+ | DIABETI | 3821907 | | Active | | Rogers | [...] thy | | +---------+---------+---------+---------+---------+---------+---------+---------+---------+ | HYPERLI | 3515998 | | Active | | Rogers | | Hyperli | | | PIDEMIA | 4 | | | / | Laith | | pidemia | | | | (SNOMED | | | | MD | | | | | | CT) | | | | | | | | +---------+---------+---------+---------+---------+---------+---------+---------+---------+ | History | 5482037 | | Active | | Rogers | [...] e | | +---------+---------+---------+---------+---------+---------+---------+---------+---------+ | CEREBRA | 5242453 | | Correct | | Rogers | [...] s | | +---------+---------+---------+---------+---------+---------+---------+---------+---------+ | ABDOMIN | 7459198 | | Removed | | Patricia | [...] | | | +---------+---------+---------+---------+---------+---------+---------+---------+---------+ | RLQ | 3260232 | | Removed | | Patricia | [...] fied | | +---------+---------+---------+---------+---------+---------+---------+---------+---------+ | CARPAL | 5591216 | | Active | | Rogers | | Carpal | | | 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 | /25 | | /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 | | | | MD | | 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, LEFT | CT) | | | | | | e | | +---------+---------+---------+---------+---------+---------+---------+---------+---------+ | Questio | 2114823 | | Removed | | Rogers | [...] | | | +---------+---------+---------+---------+---------+---------+---------+---------+---------+ | GAIT | 6178008 | | Active | | Rogers | [...] e | | +---------+---------+---------+---------+---------+---------+---------+---------+---------+ | PARESTH | 6753459 | | Active | | Rogers | | Paresth | | | ESIA, | 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 | Laith | | esia of | | | HANDS | (SNOMED | | | | MD | | hand | | | | CT) | | | | | | | | +---------+---------+---------+---------+---------+---------+---------+---------+---------+ | PERIPHE | 2643126 | | Correct | | Rogers | | Periphe | | | RAL | | / | ion | /25 | Laith | | ral | | | NEUROPA | (SNOMED | | | | MD | | nerve | | | THY | CT) | | | | | | disease | | +---------+---------+---------+---------+---------+---------+---------+---------+---------+ | THYROID | 2090307 | | Active | | Luz | | Thyroid | | | NODULE | 05 | /20 | | /20 | Eladio | | nodule | | | | (SNOMED | | | | [facility] | | | | | | CT) | | | | | | | | +---------+---------+---------+---------+---------+---------+---------+---------+---------+ | TIA | 7640808 | | Active | | Lauranc | [...] a | | +---------+---------+---------+---------+---------+---------+---------+---------+---------+ | SYNCOPE | 2121670 | | Active | | Lauranc | | Syncope | | | | 07 | | | /10 | e W | | | | | | (SNOMED | | | | Lila | | | | | | CT) | | | | MD | | | | +---------+---------+---------+---------+---------+---------+---------+---------+---------+ | GASTROP | 5224528 | | Active | | Lauranc | | 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 | | | | Lila | | syndrom | | | | CT) | | | | MD | | e | | +---------+---------+---------+---------+---------+---------+---------+---------+---------+ | CONSTIP | 7969394 | | Active | | Lauranc | | Chronic | | | ATION, | 09 | /08 | | /08 | e W | | | | | CHRONIC | (SNOMED | | | | Lila | | constip | | | | CT) | | | | MD | | ation | | +---------+---------+---------+---------+---------+---------+---------+---------+---------+ | POSTHER | 1250224 | | Active | | Lauranc | | Posther | | | 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 | (SNOMED | | | | Lila | | neuralg | | | IA | CT) | | | | MD | | ia | | +---------+---------+---------+---------+---------+---------+---------+---------+---------+ | DIZZINE | 3586500 | | Active | | Lauranc | | Dizzine | | | SS | 03 | /08 | | /08 | e W | | ss | | | | (SNOMED | | | | Lila | | | | | | CT) | | | | MD | | | | +---------+---------+---------+---------+---------+---------+---------+---------+---------+ | DEHYDRA | 6301396 | | Active | | Lauranc | | Dehydra | | | TION | 6 | /08 | | /08 | e W | | tion | | | | (SNOMED | | | | Lila | | | | | | CT) | | | | MD | | | | +---------+---------+---------+---------+---------+---------+---------+---------+---------+ | DIABETE | 0063833 | | Active | | Lauranc | [...] | | | +---------+---------+---------+---------+---------+---------+---------+---------+---------+ | HYPERTE | 2091045 | | Active | | Lauranc | [...] mix and | | | NA | [id number] | Maulik | | BOWEL PREP | [...] take 2 | | | GABAPENTIN | 3713466761 | Bailey W | | 300 MG [...] Inject 0.6 | | | LIRAGLUTID | [id number] | Christen Ramirez | | MG/3ML | mg daily | | | E | 2 | [place] | | SOPN | | | | | | [employer]ES REPRESENTATIVE | + + + + + + + + | ONDANSETRO | 1 tab | | | ONDANSETRO | 8033025743 | Kali | | N HCL 4 MG | every 4 | | | N HCL | 3 | Palacio DPM | | TABS | hours | | | | | | + + + + + + + + | VICTOZA 18 | | | | LIRAGLUTID | 1950172645 | Bailey W | | MG/3ML | [...] 1 tab | | | GABAPENTIN | 1200053059 | Jesus | | 300 MG | po tid . | | | | 0 | Ethan MD | | CAPS | Pt states | | | | | | | | as needed | | | | | | + + + + + + + + | COLACE 100 | 1 tab by | | | DOCUSATE | 1720065084 | Kali | | MG CAPS | mouth | | | SODIUM | 0 | Palacio DPM | | | daily at | | | | | | | | bedtime | | | | | | + + + + + + + + | ASPIRIN | take 1 | | | ASPIRIN | 0264036785 | Rogers | | 325 MG | [...] 1 tab | | | PREGABALIN | 8441707338 | Bailey Paez | | MG CAPS | three | | | | 3 | Lila MD | | | times per | | | | | | | | day | | | | | | + + + + + + + + | GLUCOPHAGE | 1 tab one | | | METFORMIN | 3157227036 | Bailey W | | XR 500 MG | time per | | | HCL | 0 | Lila MD | | [id number] | day | | | | | | + + + + + + + + | HUMALOG | BS <150 - | | | INSULIN | 0237800050 | Christen Ramirez | | 100 | No insulin | | | LISPRO | 1 | [place] | | UNIT/ML | BS | | | (HUMAN) | | RETAIL SALES REPRESENTATIVE | | SOLN | 150-200 | | [...] 50 units | | | INSULIN | 9682315232 | Pako | | UNIT/ML | once per | | | GLARGINE | 3 | [place] | | SOLN | day. Pt | | | | | f RET[employer] SALES REPRESENTATIVE | | | states she | | | | | | | | is taking | | | | | | | | 56 units | | | | | | | | every AM | | | | | | + + + + + + + + | NITROFURAN | Take one | | | NITROFURAN | 9391157690 | Edna | | TOIN | capsule [...] | One | | | ERGOCALCIF | 0145087609 | Mariano | | QUANG 73866 | capsule by | | | QUANG [...] take 2 | | | GABAPENTIN | 4888140635 | Mariano | | 300 MG | [...] 10ml QAM | | | METFORMIN | 6895100964 | Mariano | | MG/5ML | Liquid due | | | HCL | 2 | Ariella | | SOLN | to | | | | | CCMA | | | Dysphagia | | | | | | + + + + + + + + | ASPIRIN EC | take 1 | | | ASPIRIN | 4385606546 | Rogers | | 325 MG | tablet | | | | 0 | Laith MD | | TBEC | daily | | | | | | + + + + + + + + | RELION | Use to | | | GLUCOSE | 6040206866 | Kali | | BLOOD | test BG | | | BLOOD | 4 | Palacio DPM | | GLUCOSE | one time | | | | | | | TEST STRP | per day | | | | | | + + + + + + + + | NITROFURAN | | | | NITROFURAN | 9751282559 | Edna | | TOIN | | [...] one tablet | | | DOCUSATE | 1947361072 | Laurance W | | MG CAPS | by mouth | | | SODIUM | 0 | Lila MD | | | at bedtime | | | | | | + + + + + + + + | BIOTIN 1 | Take one | | | BIOTIN | 9451437593 | Jesus | | MG CAPS | daily in | | | | 2 | Ethan MD | | | the AM | | | | | | + + + + + + + + | BACTRIM DS | 1 by mouth | | | TRIMETHOPR | 7777341057 | Laurance W | | 800-160 | twice a | | | IM-SULFAME | 1 | Lila MD | | MG TABS | day for 3 | | | THOXAZOLE | | | | | days | | | | | | + + + + + + + + | ASPIRIN 81 | one time | | | ASPIRIN | 1650845688 | Mariano | | MG TABS | per day | | | | 5 | Ariella | | | | | | | | CCMA | + + + + + + + + | GABAPENTIN | two times | | | GABAPENTIN | 0215430212 | Mariano | | 100 MG | per day | | | | 1 | Ariella | | CAPS | | | | | | CCMA | + + + + + + + + | BIOTIN 1 | | | | BIOTIN | 2307929470 | Kali | | MG CAPS | | | | | 2 | Palacio DPM | + + + + + + + + | PIOGLITAZO | Take 1 tab | | | PIOGLITAZO | 9738488084 | Jesus | | NE HCL 15 [...] two times | | | MECLIZINE | 3746542271 | Mariano | | HCL 25 MG [...] take 1 | | | ASPIRIN | 8736605579 | Mariano | | 325 MG | tablet | | | | 0 | Ariella | | TBEC | daily | | | | | CCMA | + + + + + + + + | PIOGLITAZO | Take 1 tab | | | PIOGLITAZO | 3204405678 | Christen Ramirez | | NE HCL 15 | by mouth | | | NE HCL | 0 | [place] | | MG TABS | one time | | | | | RET[employer]ES REPRESENTATIVE | | | per day in | | | | | | | | the AM | | | | | | + + + + + + + + | NEURONTIN | take 1 tab | | | GABAPENTIN | 4961615360 | Bailey W | | 300 MG | po tid | | | | 0 | Lila MD | | CAPS | | | | | | | + + + + + + + + | DIOVAN 160 | one time | | | VALSARTAN | 4027470452 | Mariano | | MG TABS | per day | | | | 0 | Ariella | | | | | | | | CCMA | + + + + + + + + | ASPIRIN | take 1 | | | ASPIRIN | 0231408392 | Bailey W | | 325 MG [...] Take one | | | POTASSIUM | 2475124312 | Jesus | | CHLORIDE | cap daily | | | CHLORIDE | 5 | Ethan MD | | ER 10 MEQ | in the AM | | | | | | | CR-CAPS | | | | | | | + + + + + + + + | KEFLEX 500 | 1 pill | | | CEPHALEXIN | 9182352427 | Tiesha | | MG CAPS | twice a | | | | 0 | [place] MD | | | day for 7 | | | | | | | | days | | | | | | + + + + + + + + | GABAPENTIN | one tablet | | | GABAPENTIN | 8270165021 | Laurance W | | 100 MG [...] 1 tab | | | MECLIZINE | 7311643208 | Laurance W | | HCL 25 MG | three | | | HCL | 1 | Lila MD | | TABS | times per | | | | | | | | day | | | | | | + + + + + + + + | BYETTA 5 | 0.02 ml | | | EXENATIDE | 2966027810 | Bailey W | | MCG PEN 5 | injection | | | | 1 | Lila MD | | MCG/0.02ML | two times | | | | | | | SOPN | per day | | | | | | + + + + + + + + | FLUCONAZOL | take one | | | FLUCONAZOL | 5221253084 | Bailey W | | E 150 [...] tab two | | | CILOSTAZOL | 9639530171 | Kali | | 100 MG | times per | | | | 1 | Hakeem DPM | | TABS | day | | | | | | + + + + + + + + | RIOMET 500 | 10ml's two | | | METFORMIN | 8849066850 | Bailey W | | MG/5ML | [...] D | | | | CHOLECALCI | 8916555941 | Kali | | 1000 UNIT | | | | FEROL | 0 | Hakeem DPM | | TABS | | | | | | | + + + + + + + + | NEURONTIN | take 1 tab | | | GABAPENTIN | [id number] | Christen Ramirez | | 300 MG | po tid . | | | | 0 | [place] | | CAPS | Pt states | | | | | [employer] | | | as needed | | | | | | + + + + + + + + | BYETTA 5 | Take as | | | EXENATIDE | [id number] | Christen Ramirez | | MCG PEN 5 | directed | | | | 1 | [place] | | MCG/0.02ML | once daily | | | | | [employer] | | SOPN | in the AM [...] two times | | | METFORMIN | [id number] | Mariano | | HCL 1000 | per day | | | HCL | 1 | Ariella | | MG TABS | | | | | | CCMA | + + + + + + + + | GABAPENTIN | Take 2 | | | GABAPENTIN | [id number] | Franciscoance W | | 300 MG [...] TAKE ONE | | | PREGABALIN | [id number] | Kesha | | MG CAPS | [...] 1 TAB | | | BUSPIRONE | [phone] | Kali | | HCL 7.5 MG | three | | | HCL | 5 | Palacio DPM | | TABS | times per | | | | | | | | day | | | | | | + + + + + + + + | LANTUS 100 | 25 units | | | INSULIN | [id number] | Jesus | | UNIT/ML | two [...] two times | | | MECLIZINE | 1935776599 | Laurance W | | HCL 25 MG | per day | | | HCL | 2 | Lila MD | | TABS | | | | | | | + + + + + + + + | MECLIZINE | One tab by | | | MECLIZINE | 6141695082 | Laurance W | | HCL 25 [...] Take one | | | CHOLECALCI | 8679532552 | Jesus | | 1000 UNIT | tablet | | | FEROL | 0 | Ethan MD | | TABS | daily in | | | | | | | | the AM | | | | | | + + + + + + + + | POTASSIUM | | | | POTASSIUM | [id number] | Kali | | CHLORIDE | | | | CHLORIDE | 5 | Palacio DPM | | ER 10 MEQ | | | | | | | | CR-CAPS | | | | | | | + + + + + + + + | DULOXETINE | 1 tab one | | | DULOXETINE | 1208469605 | Bailey W | | HCL 30 MG | time per | | | HCL | 6 | Lila MD | | CPEP | day | | | | | | + + + + + + + + | DRAMAMINE | take 1-2 | | | DIMENHYDRI | 9817567323 | Christen Ramirez | | 50 MG TABS | tabs 4 | | | MARCELA | 1 | Raumakita | | | times per | | | | | RETAIL SALES REPRESENTATIVE | | | day as | | | | | | | | needed | | | | | | + + + + + + + + | VICTOZA 18 | | | | LIRAGLUTID | [id number] | Jesus | | MG/3ML | | | | E | 2 | Ethan MD | | SOPN | | | | | | | + + + + + + + + | BASAGLAR | 1 pen | | | INSULIN | 1031072881 | Christen Ramirez | | KWIKPEN | every 3 | | | GLARGINE | 9 | Raumakita | | 100 | days 56 | | | | | RETAIL SALES REPRESENTATIVE | | UNIT/ML | units q | [...] by mouth | | | MECLIZINE | 9359644075 | Bailey W | | HCL 25 [...] 1 tab | | | PREGABALIN | 4654335313 | Christen Ramirez | | MG CAPS | three | | | | 1 | Raumakita | | | times per | | | | | RETAIL SALES REPRESENTATIVE | | | day. Pt | | | | | | | | states as | | | | | | | | needed | | | | | | + + + + + + + + | OMEPRAZOLE | Take one | | | OMEPRAZOLE | 6632459772 | Christen J. | | 40 MG | by mouth | | | | 5 | Raumakita | | CPDR | one time | | | | | RETAIL SALES REPRESENTATIVE | | | per day | | [...] Take 1 | | | GLIPIZIDE | 9622629819 | Christen Ramirez | | XL 2.5 MG | tablet | | | | 1 | Raumakita | | [id number] | p.o. | | | | | RETAIL SALES REPRESENTATIVE | | | q.a.m. | | | | | | + + + + + + + + | BD INSULIN | Use 5 | | | INSULIN | 9116235270 | Christen Ramirez | | SYRINGE | times | | | SYRINGE-NE | 1 | Raumakita | | ULTRAFINE | daily to | | | EDLE U-100 | | RETAIL SALES REPRESENTATIVE | | 29G X 1/2" | inject [...] 3U before | | | INSULIN | 3990066494 | Christen Ramirez | | 100 | lunch and | | | ASPART | 1 | Raumakita | | UNIT/ML | 5U before | | | | | RETAIL SALES REPRESENTATIVE | | SOLN | Dinner | | [...] 3U before | | | INSULIN | 0607200228 | Christen Ramirez | | 100 | lunch and | | | LISPRO | 0 | Raumakita | | UNIT/ML | 5U before | | | | | RETAIL SALES REPRESENTATIVE | | SOLN | Dinner | | [...] 56 Units | | | INSULIN | 2867573139 | Christen Ramirez | | KWIKPEN | every | | | GLARGINE | 9 | Raumakita | | 100 | morning | | | | | RETAIL SALES REPRESENTATIVE | | UNIT/ML | | | | | | | | SOPN | | | | | | | + + + + + + + + | VICTOZA 18 | Inject 0.6 | | | LIRAGLUTID | [id number] | Christen Ramirez | | MG/3ML | mg daily | | | E | 2 | Raumakita | | SOPN | | | | | | RETAIL SALES REPRESENTATIVE | + + + + + + + + | LIPITOR 20 | take 1 | | | ATORVASTAT | 2217471844 | Christen Escudero. | | MG TABS | tablet by | | | IN CALCIUM | 0 | Raumakita | | | mouth | | | | | RETAIL SALES REPRESENTATIVE | | | daily in | | | | | | | | the | | | | | | | | evening | | | | | | + + + + + + + + | BASAGLAR | 56 Units | | | INSULIN | 3671369290 | Christen Ramirez | | KWIKPEN | by mouth | | | GLARGINE | 9 | Raumakita | | 100 | every | | | | | RETAIL SALES REPRESENTATIVE | | UNIT/ML | morning | | | | | | | SOPN | | | | | | | + + + + + + + + | VICTOZA 18 | 5 unit AM | | | LIRAGLUTID | [id number] | Christen Kena. | | MG/3ML | and 5 | | | E | 2 | Raumakita | | SOPN | units PM | | | | | RETAIL SALES REPRESENTATIVE | + + + + + + + + | BASAGLAR | 1 pen | | | INSULIN | 0725786806 | Christen J. | | KWIKPEN | every 3 | | | GLARGINE | 9 | Raumakita | | 100 | days 56 | | | | | RETAIL SALES REPRESENTATIVE | | UNIT/ML | units q | | | | | | | SOPN | Day | | | | | | + + + + + + + + | MECLIZINE | One tab by | | | MECLIZINE | 1879929101 | Christen Kena. | | HCL 25 MG | mouth | | | HCL | 0 | Raumakita | | TABS | three | | | | | RETAIL SALES REPRESENTATIVE | | | times per | | [...] every | | | FOR | | RETAIL SALES REPRESENTATIVE | | BASAGLAR | morning | | | BASAGLAR | | | | KWIKPEN | with | | | KWIKPEN | | | | | Basaglar | | | | | | | | Kwikpen | | | | | | + + + + + + + + | BYETTA 5 | Take as | | | EXENATIDE | 8227632386 | Christen Ramirez | | MCG PEN 5 | directed | | | | 1 | Raumakita | | MCG/0.02ML | once daily | | | | | RETAIL SALES REPRESENTATIVE | | SOPN | in the AM | | | | | | + + + + + + + + | LANTUS 100 | 56 units | | | INSULIN | 8438248932 | Kaykay | | UNIT/ML | qAM | | | GLARGINE | 3 | Mora DO | | SOLN | | | | | | | + + + + + + + + | PLAVIX 75 | 1 tab by | | | CLOPIDOGRE | 1662958109 | David | | MG TABS | mouth one | | | L | 0 | Hoyne DO | | | time per | | | BISULFATE | | | | | day in the | | | | | | | | evening | | | | | | + + + + + + + + | VALSARTAN | Take one | | | VALSARTAN | 8053584840 | Christen Ramirez | | 160 MG | tablet | | | | 2 | Raumakita | | TABS | daily in | | | | | RETAIL SALES REPRESENTATIVE | | | the AM | | | | | | + + + + + + + + | SUPREP | mix and | | | NA | 6227832742 | Emeka | | BOWEL PREP | [...] pill BID | | | DOCUSATE | [id number] | Christen Ramirez | | MG CAPS | | | | SODIUM | 0 | Raumakita | | | | | | | | RETAIL SALES REPRESENTATIVE | + + + + + + + + | HUMALOG | BS <150 - | | | INSULIN | 1043343369 | Tiesha | | 100 | No [...] Use daily | | | INSULIN | 6533924660 | Tiesha | | NEEDLE | to inject | | | PEN NEEDLE | 3 | Penfield MD | | ULTRAFINE | insulin | | | | | | | 29G X | | | | | | | | 12.7MM | | | | | | | | MISC | | | | | | | + + + + + + + + | RELION | Use daily | | | GLUCOSE | 6311493770 | Tiesha | | BLOOD | to check | | | BLOOD | 4 | Penfield MD | | GLUCOSE | blood | | | | | | | TEST STRP | sugar | | | | | | + + + + + + + + | LASIX 80 | 1 tab by | | | FUROSEMIDE | 5736409313 | Tiesha | | MG TABS | [...] per | | | FOOT CARE | 9417188028 | Tiesha | | INSOLES | custom | | | PRODUCTS | 2 | Penfield MD | | MISC | fit from [...] custom | | | ORTHOTIC | | Penfield MD | | SHOES | fit from | | | SHOES | | | | | podiatry | | | | | | | | E11.65, | | | | | | | | e11.21 | | | | | | + + + + + + + + | KEFLEX 500 | 1 pill | | | CEPHALEXIN | 3894805818 | Pako | | MG CAPS | twice a | | | | 0 | Shirauf | | | day for 7 | | | | | f RETAIL SALES REPRESENTATIVE | | | days | | | | | | + + + + + + + + | BYETTA 5 | 0.02 ml | | | EXENATIDE | 3160738487 | Laurance W | | MCG PEN 5 | injection | | | | 1 | Lila MD | | MCG/0.02ML | two times | | | | | | | SOPN | per day | | | | | | + + + + + + + + | LYRICA 100 | 1 tab | | | PREGABALIN | 2054017470 | Laurance W | | MG CAPS | three | | | | 8 | Lila MD | | | times per | | | | | | | | day | | | | | | + + + + + + + + | DRAMAMINE | take 1-2 | | | DIMENHYDRI | 6821384523 | Laurance W | | 50 MG [...] Use 5 | | | INSULIN | 1970908651 | Laurance W | | SYRINGE | [...] tab by | | | CLOPIDOGRE | 1986783523 | Laurance W | | MG TABS | mouth one | | | L | 4 | Lila MD | | | time per | | | BISULFATE | | | | | day | | | | | | + + + + + + + + | LANTUS 100 | 25 units | | | INSULIN | 4332398572 | Laurance W | | UNIT/ML | two times | | | GLARGINE | 3 | Lila MD | | SOLN | per day | | | | | | + + + + + + + + | LASIX 80 | 1 tab by | | | FUROSEMIDE | 9717196306 | Laurance W | | MG TABS | mouth one | | | | 5 | Lila MD | | | time per | | | | | | | | day | | | | | | + + + + + + + + | FUROSEMIDE | 1 tab one | | | FUROSEMIDE | 8848006224 | Laurance W | | 40 MG | time per | | | | 0 | Lila MD | | TABS | day | | | | | | + + + + + + + + | BUSPIRONE | 1 TAB | | | BUSPIRONE | 1490677840 | Laurance W | | HCL 7.5 MG | three | | | HCL | 5 | Lila MD | | TABS | times per | | | | | | | | day | | | | | | + + + + + + + + | COLACE 100 | 1 tab by | | | DOCUSATE | [id number] | Laurance W | | MG CAPS | mouth | | | SODIUM | 0 | Lila MD | | | daily at | | | | | | | | bedtime | | | | | | + + + + + + + + | BACTRIM DS | 1 by mouth | | | TRIMETHOPR | 4973950700 | Laurance W | | 800-160 | twice a | | | IM-SULFAME | 1 | Lila MD | | MG TABS | day for 3 | | | THOXAZOLE | | | | | days | | | | | | + + + + + + + + | LYRICA 50 | Take 1 tab | | | PREGABALIN | 6794341106 | Laurance W | | MG CAPS [...] tab one | | | METFORMIN | 1611877986 | Laurance W | | XR 500 MG | time per | | | HCL | 0 | Lila MD | | [id number] | day | | | | | | + + + + + + + + | NYSTATIN-T | Apply thin | | | NYSTATIN-T | 0773724004 | Laurance W | | RIAMCINOLO | layer to | | | RIAMCINOLO | 0 | Lila MD | | NE | affected | | | NE | | | | 365218-3.1 | area BID | | | | | | | UNIT/GM-% | prn for | | | | | | | CREA | itching | | | | | | + + + + + + + + | CILOSTAZOL | 1 tab two | | | CILOSTAZOL | 9730090802 | Laurance W | | 100 MG | times per | | | | 1 | Lila MD | | TABS | day | | | | | | + + + + + + + + | OMEPRAZOLE | Take one | | | OMEPRAZOLE | 0452702529 | Laurance W | | 40 MG [...] take 1 | | | ATORVASTAT | 1161843285 | Laurance W | | MG TABS | tablet by | | | IN CALCIUM | 0 | Lila MD | | | mouth | | | | | | | | daily | | | | | | + + + + + + + + | MECLIZINE | 1 tab | | | MECLIZINE | 8518063451 | Laurance W | | HCL 25 MG | three | | | HCL | 1 | Lila MD | | TABS | times per | | | | | | | | day | | | | | | + + + + + + + + | LANTUS 100 | 56 units | | | INSULIN | 2699670751 | Laurance W | | UNIT/ML | in the | | | GLARGINE | 3 | Lila MD | | SOLN | morning | | | | | | + + + + + + + + | ONDANSETRO | 1 tab | | | ONDANSETRO | 2987521982 | Laurance W | | N HCL 4 MG | every 4 | | | N HCL | 3 | Lila MD | | TABS | hours | | | | | | + + + + + + + + | PIOGLITAZO | Take 1 tab | | | PIOGLITAZO | 3332344249 | Laurance W | | NE HCL 15 | by mouth | | | NE HCL | 0 | Lila MD | | MG TABS | one time | | | | | | | | per day | | | | | | + + + + + + + + | RELION | Use to | | | GLUCOSE | 0274635912 | Bailey W | | BLOOD | test BG | | | BLOOD | 4 | Lila MD | | GLUCOSE | one time | | | | | | | TEST STRP | per day | | | | | | + + + + + + + + | GABAPENTIN | Take 2 | | | GABAPENTIN | 7451481190 | Bailey W | | 300 MG [...] TAB one | | | VALSARTAN | 9896034563 | Bailey W | | 160 MG | time per | | | | 2 | Lila MD | | TABS | day | | | | | | + + + + + + + + | LYRICA 50 | TAKE ONE | | | PREGABALIN | 1566972937 | Laurance W | | MG CAPS [...] 0.2 ml | | | EXENATIDE | 4681289627 | Laurance W | | MCG PEN 5 | injection | | | | 1 | Lila MD | | MCG/0.02ML | two times | | | | | | | SOPN | per day | | | | | | + + + + + + + + | VICTOZA 18 | 1.2 mg | | | LIRAGLUTID | 4420574605 | Laurance W | | MG/3ML | injected | | | E | 3 | Lila MD | | SOPN | martin | | | | | | + + + + + + + + | KEFLEX 500 | one po TID | | | CEPHALEXIN | 2357424260 | Susanna | | MG CAPS | | | | | 0 | Gianfranco LUIS | + + + + + + + + | FLUCONAZOL | take one | | | FLUCONAZOL | 4830702318 | Susanna | | E 150 MG | tablet PO | | | E | 0 | Gianfranco LUIS | | TABS | x 1 repeat | | | | | | | | in 3 days | | | | | | + + + + + + + + | LYRICA 50 | 1 tab | | | PREGABALIN | 0493455383 | Bailey W | | MG CAPS | three | | | | 3 | Lila LUIS | | | times per | | | | | | | | day | | | | | | + + + + + + + + | GABAPENTIN | Take 2 | | | GABAPENTIN | 2681825402 | Laurance W | | 300 MG [...] tab one | | | DULOXETINE | 5234344569 | Bailey W | | HCL 30 MG | time per | | | HCL | 6 | Lila MD | | CPEP | day | | | | | | + + + + + + + + | RIOMET 500 | 10ml's two | | | METFORMIN | 5645622432 | Laurance W | | MG/5ML | [...] TAB one | | | VALSARTAN | 6898861825 | Franciscoance W | | MG TABS | time per | | | | 0 | Lila MD | | | day | | | | | | + + + + + + + + | MECLIZINE | One tab by | | | MECLIZINE | 8599894311 | Laurance W | | HCL 25 [...] take 2 | | | GABAPENTIN | 7553155028 | Laurance W | | 300 MG [...] tab one | | | VALSARTAN | 7431962625 | Laurance W | | MG TABS | time per | | | | 4 | Lila MD | | | day | | | | | | + + + + + + + + | VICTOZA 18 | 0.6 mg | | | LIRAGLUTID | 6456893991 | Laurance W | | MG/3ML | [...] tab one | | | SITAGLIPTI | 0542697664 | Laurance W | | 100 MG | time per | | | N | 8 | Lila MD | | TABS | day | | | PHOSPHATE | | | + + + + + + + + | GABAPENTIN | 2 tabs two | | | GABAPENTIN | 3451837063 | Laurance W | | 300 MG | times per | | | | 0 | Lila MD | | CAPS | day | | | | | | + + + + + + + + | DIOVAN 160 | 1 by mouth | | | VALSARTAN | 7954705542 | Laurance W | | MG TABS | every day | | | | 0 | Lila MD | + + + + + + + + | GABAPENTIN | 1 tab at | | | GABAPENTIN | 3741817821 | Laurance W | | 100 MG [...] 28 units | | | INSULIN | 5966564113 | Laurance W | | UNIT/ML | two times | | | GLARGINE | 0 | Lila MD | | SOLN | per day | | | | | | + + + + + + + + | LISINOPRIL | take 1 | | | LISINOPRIL | 7989832393 | Rogers | | 20 MG | tablet by | | | | 1 | Laith LUIS | | TABS | mouth | | | | | | | | daily | | | | | | + + + + + + + + | LANTUS 100 | 56 units | | | INSULIN | 3688350891 | Laurance W | | UNIT/ML | daily | | | GLARGINE | 0 | Lila MD | | SOLN | | | | | | | + + + + + + + + | GABAPENTIN | 1 by mouth | | | GABAPENTIN | 4400964732 | Laurance W | | 100 MG [...] | One | | | ERGOCALCIF | 8374657763 | Laurance W | | QUANG 95185 | capsule by | | | QUANG [...] by mouth | | | LISINOPRIL | 9932059123 | Laurance W | | 5 MG TABS | one time | | | | 0 | Lila MD | | | per day | | | | | | + + + + + + + + | RIOMET 500 | 10ml QAM | | | METFORMIN | 2589486972 | Laurance W | | MG/5ML | Liquid due | | | HCL | 2 | Lila MD | | SOLN | to | | | | | | | | Dysphagia | | | | | | + + + + + + + + | COLACE 100 | one tablet | | | DOCUSATE | 0281623893 | Laurance W | | MG CAPS | by mouth | | | SODIUM | 0 | Lila MD | | | at bedtime | | | | | | + + + + + + + + | MECLIZINE | 1 by mouth | | | MECLIZINE | 9819643774 | Laurance W | | HCL 25 [...] one tablet | | | METFORMIN | 6629998838 | Laurance W | | HCL 1000 | by mouth | | | HCL | 0 | Lila MD | | MG TABS | twice a | | | | | | | | day | | | | | | + + + + + + + + | ASPIRIN 81 | 1 by mouth | | | ASPIRIN | 6518616847 | Laurance W | | MG TABS | every day | | | | 5 | Lila MD | + + + + + + + + | GABAPENTIN | one tablet | | | GABAPENTIN | 3036773716 | Laurance W | | 100 MG [...] | | | | | | | Donkita | | | | | | | RETAIL SALES REPRESENTATIVE | + + + + + + + | GABAPENTIN | UNKNOWN | | Mild | No Longer | Bailey W | | | | | | Active | Lila MD | + + + + + + + | GABAPENTIN | UNKNOWN | | Mild | No Longer | Moira | | | | | | Active | Cathy PERSAUDA | + + + + + + [...] | Hallucinatio | | Critical | | Franciscoance W [...] + + | Lab Report: Erythro Sed Rate, Jordonren | + + + +-----+----+------+------+---+ + | [...] + + +------+ +---+ + | | [id number] | 0.4 | g/dL | 0.2-0.5 | | beta 2 | | | LN | | | | | globulin | + + + +------+ +---+ + | | [id number] | 0.6 | g/dL | 0.4-0.8 | [...] | | | | | | | 15-JUL- | | | | | | | [...] + + +---------+ +---+---+ + | | MD | 156 | ms | | | MD | | | INTERVAL | | | [...] | + + +---------+--------+---+---+ + | | [id number] | 386 | mg/24h | | H [...] | | | Dietary | | | [employer] GUARD | | | | | management | [...] Visit: ER f/u | + + + +------+----+---+---+---+ + [...] +--------+ +---+---+---+ + | | ESM_RR | [id number] | | | B | e-scripts | [...] | | | | | | | [place]*` | | | | | | | | [id number] | | | | | | | | `[id number] | | | | | | | | [id number]` | | | | | | | [...] FAC, | | | | [address], [place], [address], | | | | | + + + + | Appointment | 04:30 PM | [facility], | | | | [address] | | | [address], [place], [address], | | | | | + + + + | Appointment | 12:30 PM | Christen Florez RETAIL SALES REPRESENTATIVE, | | | | [address] | | [address], [place], [address], | | | | | + + + + | Referral | | GI Skip | | | | Emeka Clark MD, [address] | | | | [address], | | | | [place], [address] | | | | | + + + + | Referral | | GI Consult | | | | Emeka Clark MD, [address] | | | | [address], | | | | [place], [address] | | | | | + + + + | Referral | | Nephrology Evaluation | | | | Anisa Reeves MD, | | | | [address] [facility] | | | | [address], [place], [address] | | | | | | | | | + + + + | Referral | | Nephrology Evaluation | | | | MD Iraj Juarez, | | | | [address], | | | | [address], [place], [address] | | | | | | | | | + + + + | Referral | | Surgical Consult | | | | Jesus Long, [address] | | [address], | | | | [place], [address] | | | | | + + + + | Referral | | Surgical Consult | | | | Jesus Long, [address] | | | | [address], | | | | [place], [address] | | | | | + + + + | Referral | | Endocrinology Consult | + + + + | Referral | | Podiatry Consult | | | | Kali Palacio, [address] | | | | [place], | | | | [place], [address] | | | | | + + + + | Referral | | Nephrology Evaluation | | | | MD Iraj Juarez, | | | | [address], | | | | [address], [place], [address] | | | | | | | | | + + + + | Referral | | Podiatry Consult | | | | Kali Palacio, [address] | | | | [place], | | | | [place], [address] | | | | | + + + + | Referral | | Nephrology Evaluation | | | | MD Iraj Juarez, | | | | [address], | | | | [address] [place] [address], [address] | | | | | | | | | + + + + | Referral | | Neurology Consult | | | | [facility] Phone #, | | | | [address] [facility] | | | | [place], [address] | | | | | + + + + | Referral | | Neurology Consult | | | | [employer] Phone #, | | | | [address] [facility] | | | | , [place], [address] | | | | | + + + + | Referral | | [facility]RA Head-WO Con | | | | [facility], [address] | | | | [address], | | | | [place], [place], [address] | | | | | + + + + | Referral | | [facility] Head-WO Con | | | | [facility], [address] | | | | [address], | | | | [place], [address] | | | | | + + + + | Referral | | [facility] Head-WWO Con | | | | [facility], [address] | | | | [address] [place], | | | | [place], [address] | | | | | + + + + | Referral | | MRA Head-WWO Con | | | | [facility], [address] | | | | [address] [place], | | | | [place], [address] | | | | | + + + + +---+ + | | Referral excluded from report: | +---+ + + + + + | Referral | | Physical Therapy Evaluation | | | | [facility], [address] | [address] | | | | [address], [place], [address] | | | | | | | | | + + + + | Referral | | Neurology Consult | | | | MD August Bourne, [address] | | | | [address] [place], | | | | [place], [address] | | | | | + + + + | Referral | | Neurology Consult | | | | Rogers Ozuna, [address] | | | | [address] [place], | | | | [place], [address] | | | | | + + + + | Referral | | Cardiology Consult | | | | MD Pelon Fay, | | | | [address] | | | | [address], [place], [address] | | | | | | | | | + + + + | Referral | | GI Consult | | | | [address] | | | | [address], [place], [address] | | | | | | | | | + + + + | Referral | | Physical Therapy Evaluation | | | | [facility], [address] | | | | [address] [facility] | | | | [address], [place], [address] | | | | | | | | | + + + + | Referral | | Diabetic Education - | | | | Individual | | | | [facility], | | | | [address], | | | | [place], [address] | | | | | + + + + | Referral | | GI Consult | | | | [address] | | | | [facility], [place], [address] | | | | | | | | | + + + + | Referral | | US Soft Tissue Head/Neck | | | | Exam Dian | | | | Scheduling, [address] | | | | [facility], [place], | | | | [address] | | | | | + + + + | Referral | | Neurology Consult | | | | [place] [facility] | | | | Clinic, [address] [facility], | | | | [place], [address] | | | | | + + + + | Referral | | VL Carotid-Cerebral Duplex | | | | [facility] | | | | Scheduling, [address] | | | | [place], [place], | | | | [address] | | | | | + + + + | Referral | | Holter Monitor | | | | Dian Atkins, [address] | | | | [address] [place], | | | | [place], [address] | | | | | + + [...] Microalb/Creat Ratio UR, | | | | [place] | + + + + | Pending [...] | + + + + + | CPT-35273 | Glucose by monitor | | | + + + + + | CPT-71120 | UA Dipstick | | | + + + + + | CPT-92101 | UA Dipstick | | | + + + + + | CPT-67539 | Initial Psych | | | | | Evaluation | | | + + + + + | CPT-27305 | Barbie Nail, 6 or | | | | | more [address] | | | + + + + [...] | + + + + + | CPT-14203 | Trim Skin Lesions | | | | | 54506 | | | + + + + + | CPT-27737 | UA Dipstick | | | + + + + + | CPT-18659 | Debride Nail, 6 or | | | | | more 36584 | | | + + + + [...] | + + + + + | CPT-97040 | Hernandeze Jamal, 6 or | | | | | more 82356 | | | + + + + [...] | + + + + + | CPT-37161 | MRA Head-WWO Con | | | + + + + + +---+ + | | Order excluded from report: | +---+ + + + + + + | CPT-30507 | Physical Therapy | | | | | Evaluation | | | + + + + + | [id number] | [facility] Generic Patient | | | | | Encounter Service | | | | | (from patch) | | | + + + + + | [id number] | [Recorded for [facility]] | | | | | Documentation of | | | | | current medications | | | | | (procedure) | | | + + + + + | [id number] | [Recorded for [facility]] | | | | | Documentation of | | | | | current medications | | | | | (procedure) | | | + + + + + | [id number] | [Recorded for [facility]] | | | | | Documentation of | | | | | current medications | | | | | (procedure) | | | + + + + + | [id number] | [Recorded for [facility]Q] | | | | | Documentation of | | | | | current medications | | | | | (procedure) | | | + + + + + | FREE T4 64765 | T4 Free | | | + + + + + | T3 FREE 11667 | T3 Free | | | + + + + + | TSH 91883 | TSH | | | + + + + + | GLYCO HGB 64937 | HgbA1C | | | + + + + + | [id number] | [facility] Generic Patient | | | | | Encounter Service | | | | | (from patch) | | | + + + + + | [id number] | [Recorded for [facility]] | | | | | Documentation of | | | | | current medications | | | | | (procedure) | | | + + + + + | [id number] | [facility] Generic Patient | | | | | Encounter Service | | | | | (from patch) | | | + + + + + | CPT-97905 | EKG- tracing with | | | | | report (27789) | | | + + + + + | [id number] | [Recorded for [facility]] | | | | | Documentation of | | | | | current medications | | | | | (procedure) | | | + + + + + | [id number] | [facility] Generic Patient | | | | | Encounter Service | | | | | (from patch) | | | + + + + + | CPT-Troponin l | Troponin I | | | | 60975 | | | | + + + + + | [id number] | [Recorded for [facility]] | | | | | Documentation of | | | | | current medications | | | | | (procedure) | | | + + + + + | CPT-70649 | Physical Therapy | | | | | Evaluation | | | + + + + + | CPT-G8427 | Current Medications | | | | | Documented | | | + + + + + | [id number] | [Recorded for CQ] | | | | | Documentation of | | | | | current medications | | | | | (procedure) | | | + + + + + | CPT-G8427 | Current Medications | | | | | Documented | | | + + + + + | [id number] | [Recorded for [facility]] | | | | | Documentation [...] + + + + | CHEM PROF 58972 | CMP (Comprehensive | | | | | Metabolic Panel) | | | + + + + + | GLYCO HGB 97117 | HgbA1C | | | + + + + + | CPT-Q2037 | Fluvirin | | | | | (Influenza) | | | | | Med/Atrio | | | + + + + + | RISK 28875 | Lipid Profile | | | + + + + + | VIT D HYDR 37725 | Vit D, 25 hydroxy | | | + + + + + | CYC CITRU 98007 | Cyclic | | | | | Citrullinated Pept | | | | | IgG | | | + + + + + | RA QUANT 77243 | Rheumatoid Factor | | | | | (quant) | | | + + + + + | TSH 94915 | TSH | | | + + + + + | IVANA 79007 | IVANA | | | + + + + + | GLYCO HGB 79495 | HgbA1C | | | + + + + + | CPT-82762 | EKG- tracing with | | | | | report (04760) | | | + + + + + | CPT-02496 | ANDRE | | | + + + + + | 83649 80942 | Holter Monitor 48H | | | | | Panel | | | + + + + + | 22990 16338 | Holter Monitor 72H | | | | | Panel | | | + + + + + | CPT-69056 | Barium Swallow MBS | | | | | with Speech | | | + + + + + | 35951 49222 | US Abdomen-Cmplt | | | | | and Pelvic-Lmtd | | | + + + + + | CPT-13260 | US Soft Tissue | | | | | Head/Neck Exam | | | + + + + + | CPT-10084 | Motor nerve testing | | | | | - each nerve | | | + + + + + | RISK 90765 | Lipid Profile | | | + + + + + | [place] [address] | Sedimentation Rate | | | | | (ESR) | | | + + + + + | [place] [address] | SPEP with JESÚS if | | | | | indicated | | | + + + + + | B12+FOLATE MULTIPLE | B-12 - Folate | | | + + + + + | PFA 80106 | Platelet Function | | | | | Assay | | | + + + + + | 27116 | MRA Head-WO Con | | | + + + + + | 37263 | MR Head-WO Con | | | + + + + + | [id number] | VL Carotid-Cerebral | | | | | Duplex | | | + + + + + | [id number] | Holter Monitor | | | + + + + + | D DIMER 48509 | D-dimer (tyrese) | | | + + + + + | 43959 | CT Head-WWO Con | | | + + + + + | VIT D HYDR 79166 | Vit D, 25 hydroxy | | | + + + + + | TSH 55717 | TSH | | | + + + + + | B12+FOLATE MULTIPLE | B-12 - Folate | | | + + + + + | UA 65522 | Urinalysis | | | + + + + + | CHEM PROF 95596 | CMP (Comprehensive | | | | | Metabolic Panel) | | | + + + + + | CBC 42438 | CBC w/ Diff - w/ | | | | | platelets | | | + + + + + | GLYCO HGB 95102 | HgbA1C | | | + + + + + | TSH 85325 | TSH | | | + + + + + | VIT D HYDR 37686 | Vit D, 25 hydroxy | | [...]
--- OUTSIDE RECORDS SUMMARY | ~2019-03-25 | XMS | Clinical Summary ---
Demographics + + + | Address | [address] [place] [address] | | | [place] [address] | + + + | Home Phone | | + + + | Preferred Language | Unknown | + + + | Marital Status | D | + + + | Restoration Affiliation | Unknown | + + + | Race | White | + + + | Ethnic Group | or | + + + Author + + + | Author | [facility] | + + + | Organization | [facility] | + + + | Address | [address] | | | [place] [address] | + + + | Phone | Unavailable | + + + Care Team Providers + +------+ + | Care Industrial Management Teacher Name | Role | Phone | [...] tion | | +---------+---------+---------+---------+---------+---------+---------+---------+---------+ | DIABETE | [id number] | | Active | | David W | | Diabeti | | | S | [id number] | | | | Theen | | [...] s | | +---------+---------+---------+---------+---------+---------+---------+---------+---------+ | MILD | [id number] | | Active | | Maulik | [...] uterus | | +---------+---------+---------+---------+---------+---------+---------+---------+---------+ | COLONIC | [id number] | | Active | | Emeka | [...] | | | +---------+---------+---------+---------+---------+---------+---------+---------+---------+ | CONSTIP | [id number] | | Active | | Emeka | | Constip | | | ATION | 8 | /13 | | /13 | Petre | | ation | | | | (SNOMED | | | | MD | | | | | | CT) | | | | | | | | +---------+---------+---------+---------+---------+---------+---------+---------+---------+ | CHANGE | [id number] | | Active | | Emeka | | Altered | | | IN | 9 | /13 | | /13 | Petre | | bowel | | | BOWEL | (SNOMED | | | | MD | | functio | | | HABITS | CT) | | | | | | n | | +---------+---------+---------+---------+---------+---------+---------+---------+---------+ | DECREAS | [id number] | | Active | | Emeka | | Decreas | | | ED | 6 | /13 | | /13 | Petre | | e in | | | APPETIT | (SNOMED | | | | MD | | appetit | | | E | CT) | | | | | | e | | +---------+---------+---------+---------+---------+---------+---------+---------+---------+ | WEIGHT | 1252807 | | Active | | Emeka | | Abnorma | | | LOSS | 01 | /13 | | /13 | Petre | | l | | | ABNORMA | (SNOMED | | | | MD | | weight | | | L | CT) | | | | | | loss | | +---------+---------+---------+---------+---------+---------+---------+---------+---------+ | NAUSEA | [id number] | | Active | | Emeka | | Nausea | | | ALONE | 07 | /13 | | /13 | Petre | | | | | | (SNOMED | | | | MD | | | | | | CT) | | | | | | | | +---------+---------+---------+---------+---------+---------+---------+---------+---------+ | RECTAL | [id number] | | Active | | Emeka | | Rectal | | | BLEEDIN | 2 | /13 | | /13 | Petre | | hemorrh | | | G | (SNOMED | | | | MD | | age | | | | CT) | | | | | | | | +---------+---------+---------+---------+---------+---------+---------+---------+---------+ | DEMENTI | 7974742 | | Active | | Christen | | Dementi | | | A | 6 | /10 | | /10 | J. | | a | | | WITHOUT | (SNOMED | | | | [place] | | | | | | CT) | | | | ta MEDICAL TECHNOLOGIST HEMATOLOGY | | | | | BEHAVIO | | | | | | | | | | RAL | | | | | | | | | | DISTURB | | | | | | | | | | ANCE | | | | | | | | | +---------+---------+---------+---------+---------+---------+---------+---------+---------+ | CHRONIC | [id number] | | Active | | Christen | | Chronic | | | | 03 | /10 | | /10 | J. | | | | | PROGRES | (SNOMED | | | | [place] | | progres | | | SIVE | CT) | | | | ta MEDICAL TECHNOLOGIST HEMATOLOGY | | sive | | | RENAL | | | | | | | renal | | | FAILURE | | | | | | | failure | | +---------+---------+---------+---------+---------+---------+---------+---------+---------+ | ANEMIA | [id number] | | Active | | Christen | | Anemia | | | | 00 | /10 | | /10 | J. | | | | | | (SNOMED | | | | [place] | | | | | | CT) | | | | ta MEDICAL TECHNOLOGIST HEMATOLOGY | | | | +---------+---------+---------+---------+---------+---------+---------+---------+---------+ | DEMENTI | [id number] | | Active | | Christen | | Procedu | | | A | 03 | / | | / | J. | | re | | | SCREENI | (SNOMED | | | | [place] | | carried | | | NG | CT) | | | | ta MEDICAL TECHNOLOGIST HEMATOLOGY | | out on | | | | | | | | | | | | | | | | | | | | subject | | +---------+---------+---------+---------+---------+---------+---------+---------+---------+ | FALL | [id number] | | Active | | Christen | | At risk | | | RISK | | / | | | J. | | for | | | | (SNOMED | | | | [place] | | falls | | | | CT) | | | | ta MEDICAL TECHNOLOGIST HEMATOLOGY | | | | +---------+---------+---------+---------+---------+---------+---------+---------+---------+ | DIABETE | 8379232 | | Resolve | | Christen | | Diabeti | | | S | [id number] | /14 | d | /15 | J. | | c | | | MELLITU | (SNOMED | | | | [place] | | periphe | | | S, TYPE | CT) | | | | ta MEDICAL TECHNOLOGIST HEMATOLOGY | | ral | | | II [...] s | | +---------+---------+---------+---------+---------+---------+---------+---------+---------+ | CORNS | [id number] | | Inactiv | | Kali | | Corns | | | AND | | | e | | Hakeem | | and | | | CALLOSI | (SNOMED | | | | DPM | | callus | | | TIES | CT) | | | | | | | | +---------+---------+---------+---------+---------+---------+---------+---------+---------+ | HAMMER | 8452951 | | Active | | Kali | [...] | | | +---------+---------+---------+---------+---------+---------+---------+---------+---------+ | HALLUX | 9988046 | | Active | | Kali | [...] ropathy | | +---------+---------+---------+---------+---------+---------+---------+---------+---------+ | DIABETE | 7163826 | | Active | | Kali | [...] s | | +---------+---------+---------+---------+---------+---------+---------+---------+---------+ | ONYCHOM | 8610268 | | Active | | Kali | | Onychom | | | YCOSIS | | | | | Hakeem | | ycosis | | | | (SNOMED | | | | DPM | | | | | | CT) | | | | | | | | +---------+---------+---------+---------+---------+---------+---------+---------+---------+ | HEARTBU | 9554590 | | Active | | Tiesha | | Heartbu | | | RN | 0 | /19 | | /19 | | | rn | | | | (SNOMED | | | | [place] | | | | | | CT) | | | | MD | | | | +---------+---------+---------+---------+---------+---------+---------+---------+---------+ | TYPE 2 | 0073489 | | Active | | Tiesha | | Disorde | | | DIABETE | 03 | / | | / | | | r due | | | S | (SNOMED | | | | [place] | | to type | | | [...] S | -CM) | | | | [place] | | s | | | MELLITU [...] athy | | +---------+---------+---------+---------+---------+---------+---------+---------+---------+ | UTI | [id number] | | Active | | Pako | | Urinary | | | | 5 | /13 | | /13 | [place] | | tract | | | | (SNOMED | | | | auff | | infecti | | | | CT) | | | | MEDICAL TECHNOLOGIST HEMATOLOGY | | ous | | | | | | | | | | disease | | +---------+---------+---------+---------+---------+---------+---------+---------+---------+ | LOCALIZ | 4969033 | | Active | | [place] | [...] | | | +---------+---------+---------+---------+---------+---------+---------+---------+---------+ | LIPOMA | 3390772 | | Active | | Lauranc | | Lipoma | | | | 2 | /14 | | /14 | e W | | (clinic | | | | (SNOMED | | | | Lila | | al) | | | | CT) | | | | MD | | | | +---------+---------+---------+---------+---------+---------+---------+---------+---------+ | VITAMIN | 0437645 | | Active | | David Paez | | Vitamin | | | D | 6 | /14 | | /15 | Theen | | D | | | DEFICIE | (SNOMED | | | | MD FACE | | deficie | | | NCY | CT) | | | | FACP | | ncy | | +---------+---------+---------+---------+---------+---------+---------+---------+---------+ | OBESITY | 5513576 | | Active | | David Paez | | Obesity | | | , BMI | 01 | /14 | | /15 | Theen | | | | | 35-39.9 | (SNOMED | | | | MD FACE | | | | | , ADULT | CT) | | | | FACP | | | | +---------+---------+---------+---------+---------+---------+---------+---------+---------+ | DIABETE | 7054767 | | Removed | | David W | | Diabeti | | | S | 418614 | /14 | | /15 | Theen [...] s | | +---------+---------+---------+---------+---------+---------+---------+---------+---------+ | ETIENNE | 3340366 | | Inactiv | | Kali | [...] | | | +---------+---------+---------+---------+---------+---------+---------+---------+---------+ | ELHAM | 0652107 | | Inactiv | | Kali | [...] | | | +---------+---------+---------+---------+---------+---------+---------+---------+---------+ | ONYCHOM | 9035860 | | Inactiv | | Kali | [...] ropathy | | +---------+---------+---------+---------+---------+---------+---------+---------+---------+ | DIABETE | 6294498 | | Inactiv | | Kali | [...] s | | +---------+---------+---------+---------+---------+---------+---------+---------+---------+ | SCREENI | 9187649 | | Resolve | | Lauranc | | Depress | | | NG FOR | | | d | /10 | e W | | ion | | | DEPRESS | (SNOMED | | | | Lila | | screeni | | | ION | CT) | | | | MD | | ng | | +---------+---------+---------+---------+---------+---------+---------+---------+---------+ | SCREENI | 8117977 | | Resolve | | Lauranc | [...] | | | +---------+---------+---------+---------+---------+---------+---------+---------+---------+ | SCREENI | 7415554 | | Resolve | | Lauranc | [...] ng | | +---------+---------+---------+---------+---------+---------+---------+---------+---------+ | SCREENI | 3504370 | | Removed | | Geetha | | Alcohol | | | NG FOR | 01 | / | | /10 | [place] | | | | | ALCOHOL | (SNOMED | | | | [facility] | | consump | | | ISM | CT) | | | | | | tion | | | | | | | | | | screeni | | | | | | | | | | ng | | +---------+---------+---------+---------+---------+---------+---------+---------+---------+ | SCREENI | 5973139 | | Removed | | Geetha | | Screeni | | | NG FOR | 05 | / | | / | [place] | | ng for | | | UNSPECI | (SNOMED | | | | [facility] | | disorde | | | FIED | CT) | | | | | | r | | | CONDITI | | | | | | | | | | ON | | | | | | | | | +---------+---------+---------+---------+---------+---------+---------+---------+---------+ | SCREENI | 9777884 | | Removed | | Geetha | | Depress | | | NG FOR | | / | | | Patrick | | ion | | | DEPRESS | (SNOMED | | | | [facility] | | screeni | | | ION | CT) | | | | | | ng | | +---------+---------+---------+---------+---------+---------+---------+---------+---------+ | RENAL | 6311433 | | Active | | Lauranc | [...] e | | +---------+---------+---------+---------+---------+---------+---------+---------+---------+ | EDEMA | 2512478 | | Active | | Lauranc | | Edema | | | | 08 | /15 | | /11 | e W | | | | | | (SNOMED | | | | Lila | | | | | | CT) | | | | MD | | | | +---------+---------+---------+---------+---------+---------+---------+---------+---------+ | RENAL | 7424022 | | Active | | Luz | [...] e | | +---------+---------+---------+---------+---------+---------+---------+---------+---------+ | PERIPHE | 8011594 | | Active | | Lauranc | [...] disease | | +---------+---------+---------+---------+---------+---------+---------+---------+---------+ | CANDIDI | 7617478 | | Active | | Susanna | | Candidi | | | ASIS, | | | | | Medel | | asis of | | | SKIN | (SNOMED | | | | MD | | skin | | | | CT) | | | | | | | | +---------+---------+---------+---------+---------+---------+---------+---------+---------+ | DYSURIA | 7545205 | | Active | | Erica | | Dysuria | | | | 1 | | | | Paul | | | | | | (SNOMED | | | | MA | | | | | | CT) | | | | | | | | +---------+---------+---------+---------+---------+---------+---------+---------+---------+ | VAGINIT | 6293262 | | Active | | Erica | | Vaginit | | | IS | 1 | /31 | | /31 | Paul | | is | | | | (SNOMED | | | | MA | | | | | | CT) | | | | | | | | +---------+---------+---------+---------+---------+---------+---------+---------+---------+ | RLQ | 4054323 | | Resolve | | Lauranc | | Right | | | PAIN | 02 | | d | /11 | e W | | lower | | | | (SNOMED | | | | Lila | | quadran | | | | CT) | | | | MD | | t pain | | +---------+---------+---------+---------+---------+---------+---------+---------+---------+ | ABDOMIN | 0389358 | | Resolve | | Lauranc | [...] | | | +---------+---------+---------+---------+---------+---------+---------+---------+---------+ | KNEE | 8381456 | | Active | | Lauranc | | Knee | | | PAIN | 3 | /14 | | /14 | e W | | pain | | | | (SNOMED | | | | Lila | | | | | | CT) | | | | MD | | | | +---------+---------+---------+---------+---------+---------+---------+---------+---------+ | Questio | 0661040 | | Correct | | Lauranc | | Vertebr | | | n of | 08 | / | ion | /25 | e W | | obasila | | | VERTEBR | (SNOMED | | | | Illa | | r | | | OBASILA [...] | | | +---------+---------+---------+---------+---------+---------+---------+---------+---------+ | VERTEBR | 6035995 | | Active | | Lauranc | [...] e | | +---------+---------+---------+---------+---------+---------+---------+---------+---------+ | VERTIGO | 0711790 | | Active | | Luz | | Vertigo | | | | | | | / | Asad | | | | | | (SNOMED | | | | RN | | | | | | CT) | | | | | | | | +---------+---------+---------+---------+---------+---------+---------+---------+---------+ | CHEST | 8918410 | | Inactiv | | Genny | | Chest | | | PAIN | 9 | | e | /02 | Kaufman | | pain | | | | (SNOMED | | | | | | | | | | CT) | | | | | | | | +---------+---------+---------+---------+---------+---------+---------+---------+---------+ | CHEST | 6911769 | | Inactiv | | Lauranc | [...] fied | | +---------+---------+---------+---------+---------+---------+---------+---------+---------+ | CEREBRO | 6817658 | | Active | | Rogers | | 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 | (SNOMED | | | | MD | | r | | | DISEASE | CT) | | | | | | disease | | +---------+---------+---------+---------+---------+---------+---------+---------+---------+ | History | 0214592 | | Active | | Rogers | [...] | | | +---------+---------+---------+---------+---------+---------+---------+---------+---------+ | DIABETI | 8943763 | | Active | | Rogers | [...] thy | | +---------+---------+---------+---------+---------+---------+---------+---------+---------+ | HYPERLI | 8827886 | | Active | | Rogers | | Hyperli | | | PIDEMIA | 4 | | | / | Laith | | pidemia | | | | (SNOMED | | | | MD | | | | | | CT) | | | | | | | | +---------+---------+---------+---------+---------+---------+---------+---------+---------+ | History | 3362077 | | Active | | Rogers | [...] e | | +---------+---------+---------+---------+---------+---------+---------+---------+---------+ | CEREBRA | 8183636 | | Correct | | Rogers | [...] s | | +---------+---------+---------+---------+---------+---------+---------+---------+---------+ | ABDOMIN | 5367277 | | Removed | | Patricia | [...] | | | +---------+---------+---------+---------+---------+---------+---------+---------+---------+ | RLQ | 6215501 | | Removed | | Patricia | [...] fied | | +---------+---------+---------+---------+---------+---------+---------+---------+---------+ | CARPAL | 1902033 | | Active | | Rogers | | Carpal | | | 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 | /25 | | /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 | | | | MD | | 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, LEFT | CT) | | | | | | e | | +---------+---------+---------+---------+---------+---------+---------+---------+---------+ | Questio | 4264060 | | Removed | | Rogers | [...] | | | +---------+---------+---------+---------+---------+---------+---------+---------+---------+ | GAIT | 8322015 | | Active | | Rogers | [...] e | | +---------+---------+---------+---------+---------+---------+---------+---------+---------+ | PARESTH | 7274473 | | Active | | Rogers | | Paresth | | | ESIA, | 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 | Laith | | esia of | | | HANDS | (SNOMED | | | | MD | | hand | | | | CT) | | | | | | | | +---------+---------+---------+---------+---------+---------+---------+---------+---------+ | PERIPHE | 2760481 | | Correct | | Rogers | | Periphe | | | RAL | | / | ion | /25 | Laith | | ral | | | NEUROPA | (SNOMED | | | | MD | | nerve | | | THY | CT) | | | | | | disease | | +---------+---------+---------+---------+---------+---------+---------+---------+---------+ | THYROID | 7075900 | | Active | | Luz | | Thyroid | | | NODULE | 05 | /20 | | /20 | Eladio | | nodule | | | | (SNOMED | | | | [facility] | | | | | | CT) | | | | | | | | +---------+---------+---------+---------+---------+---------+---------+---------+---------+ | TIA | 3266832 | | Active | | Lauranc | [...] a | | +---------+---------+---------+---------+---------+---------+---------+---------+---------+ | SYNCOPE | 2074538 | | Active | | Lauranc | | Syncope | | | | 07 | | | /10 | e W | | | | | | (SNOMED | | | | Lila | | | | | | CT) | | | | MD | | | | +---------+---------+---------+---------+---------+---------+---------+---------+---------+ | GASTROP | 4718057 | | Active | | Lauranc | | 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 | | | | Lila | | syndrom | | | | CT) | | | | MD | | e | | +---------+---------+---------+---------+---------+---------+---------+---------+---------+ | CONSTIP | 9201324 | | Active | | Lauranc | | Chronic | | | ATION, | 09 | /08 | | /08 | e W | | | | | CHRONIC | (SNOMED | | | | Lila | | constip | | | | CT) | | | | MD | | ation | | +---------+---------+---------+---------+---------+---------+---------+---------+---------+ | POSTHER | 9173934 | | Active | | Lauranc | | Posther | | | 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 | (SNOMED | | | | Lila | | neuralg | | | IA | CT) | | | | MD | | ia | | +---------+---------+---------+---------+---------+---------+---------+---------+---------+ | DIZZINE | 4833339 | | Active | | Lauranc | | Dizzine | | | SS | 03 | /08 | | /08 | e W | | ss | | | | (SNOMED | | | | Lila | | | | | | CT) | | | | MD | | | | +---------+---------+---------+---------+---------+---------+---------+---------+---------+ | DEHYDRA | 2274173 | | Active | | Lauranc | | Dehydra | | | TION | 6 | /08 | | /08 | e W | | tion | | | | (SNOMED | | | | Lila | | | | | | CT) | | | | MD | | | | +---------+---------+---------+---------+---------+---------+---------+---------+---------+ | DIABETE | 2394709 | | Active | | Lauranc | [...] | | | +---------+---------+---------+---------+---------+---------+---------+---------+---------+ | HYPERTE | 6382945 | | Active | | Lauranc | | Hyperte | | | NSION | 3 | / | | 08 | e W | | nsive | [...] 1 tab | | | ONDANSETRO | [id number] | Kali | | N HCL 4 MG | every 4 | | | N HCL | 3 | Palacio DPM | | TABS | hours | | | | | | + + + + + + + + | GABAPENTIN | take 2 | | | GABAPENTIN | 3101420179 | Bailey W | | 300 MG [...] 1 tab | | | GABAPENTIN | 4600508871 | Jesus | | 300 MG | po tid . | | | | 0 | Ethan MD | | CAPS | Pt states | | | | | | | | as needed | | | | | | + + + + + + + + | COLACE 100 | 1 tab by | | | DOCUSATE | [id number] | Kali | | MG CAPS | mouth | | | SODIUM | 0 | Palacio DPM | | | daily at | | | | | | | | bedtime | | | | | | + + + + + + + + | ASPIRIN | take 1 | | | ASPIRIN | 6833918281 | Rogers | | 325 MG | [...] 1 tab | | | PREGABALIN | 1623406218 | Bailey W | | MG CAPS | three | | | | 3 | Lila MD | | | times per | | | | | | | | day | | | | | | + + + + + + + + | GLUCOPHAGE | 1 tab one | | | METFORMIN | 4481769195 | Bailey W | | XR 500 MG | time per | | | HCL | 0 | Lila MD | | [id number] | day | | | | | | + + + + + + + + | HUMALOG | BS <150 - | | | INSULIN | 7822329131 | Christen Ramirez | | 100 | No insulin | | | LISPRO | 1 | [place] | | UNIT/ML | BS | | | (HUMAN) | | MEDICAL TECHNOLOGIST HEMATOLOGY | | SOLN | 150-200 | | [...] 50 units | | | INSULIN | 3487651606 | Pako | | UNIT/ML | once per | | | GLARGINE | 3 | Shirauf | | SOLN | day. Pt | | | | | f MEDICAL TECHNOLOGIST HEMATOLOGY | | | states she | | | | | | | | is taking | | | | | | | | 56 units | | | | | | | | every AM | | | | | | + + + + + + + + | ERGOCALCIF | One | | | ERGOCALCIF | [id number] | Mariano | | QUANG 55744 | capsule by | | | QUANG [...] take 2 | | | GABAPENTIN | 4330068975 | Mariano | | 300 MG | [...] 10ml QAM | | | METFORMIN | 9988653019 | Mariano | | MG/5ML | Liquid due | | | HCL | 2 | Ariella | | SOLN | to | | | | | CCMA | | | Dysphagia | | | | | | + + + + + + + + | ASPIRIN EC | take 1 | | | ASPIRIN | 4255891142 | Rogers | | 325 MG | tablet | | | | 0 | Laith LUIS | | TBEC | daily | | | | | | + + + + + + + + | RELION | Use to | | | GLUCOSE | 4933626738 | Kali | | BLOOD | test BG | | | BLOOD | 4 | Palacio DPM | | GLUCOSE | one time | | | | | | | TEST STRP | per day | | | | | | + + + + + + + + | COLACE 100 | one tablet | | | DOCUSATE | 3847723690 | Laurance W | | MG CAPS | by mouth | | | SODIUM | 0 | Lila MD | | | at bedtime | | | | | | + + + + + + + + | BIOTIN 1 | Take one | | | BIOTIN | 7699047187 | Jesus | | MG CAPS | daily in | | | | 2 | Ethan MD | | | the AM | | | | | | + + + + + + + + | BACTRIM DS | 1 by mouth | | | TRIMETHOPR | 6739889826 | Laurance W | | 800-160 | twice a | | | IM-SULFAME | 1 | Lila MD | | MG TABS | day for 3 | | | THOXAZOLE | | | | | days | | | | | | + + + + + + + + | ASPIRIN 81 | one time | | | ASPIRIN | 9890453734 | Mariano | | MG TABS | per day | | | | 5 | Ariella | | | | | | | | CCMA | + + + + + + + + | GABAPENTIN | two times | | | GABAPENTIN | 5689623972 | Mariano | | 100 MG | per day | | | | 1 | Ariella | | CAPS | | | | | | CCMA | + + + + + + + + | BIOTIN 1 | | | | BIOTIN | 2076016706 | Kali | | MG CAPS | | | | | 2 | Palacio DPM | + + + + + + + + | PIOGLITAZO | Take 1 tab | | | PIOGLITAZO | 2362112749 | Jesus | | NE HCL 15 [...] two times | | | MECLIZINE | 4564901116 | Mariano | | HCL 25 MG [...] take 1 | | | ASPIRIN | 4552466121 | Mariano | | 325 MG | tablet | | | | 0 | Ariella | | TBEC | daily | | | | | CCMA | + + + + + + + + | NEURONTIN | take 1 tab | | | GABAPENTIN | 4356854183 | Laurance W | | 300 MG | po tid | | | | 0 | Lila MD | | CAPS | | | | | | | + + + + + + + + | DIOVAN 160 | one time | | | VALSARTAN | 8196590374 | Mariano | | MG TABS | per day | | | | 0 | Ariella | | | | | | | | CCMA | + + + + + + + + | ASPIRIN | take 1 | | | ASPIRIN | 3501260699 | Laurance W | | 325 MG [...] Take one | | | POTASSIUM | 2028798322 | Jesus | | CHLORIDE | cap daily | | | CHLORIDE | 5 | Ethan MD | | ER 10 MEQ | in the AM | | | | | | | CR-CAPS | | | | | | | + + + + + + + + | KEFLEX 500 | 1 pill | | | CEPHALEXIN | 7372834657 | Tiesha | | MG CAPS | twice a | | | | 0 | Maria Isabel MD | | | day for 7 | | | | | | | | days | | | | | | + + + + + + + + | GABAPENTIN | one tablet | | | GABAPENTIN | 0248949839 | Bailey Paez | | 100 MG | by mouth [...] 1 tab | | | MECLIZINE | 7110591525 | Laurance W | | HCL 25 MG | three | | | HCL | 1 | Lila MD | | TABS | times per | | | | | | | | day | | | | | | + + + + + + + + | BYETTA 5 | 0.02 ml | | | EXENATIDE | 3852284102 | Laurance W | | MCG PEN 5 | injection | | | | 1 | Lila MD | | MCG/0.02ML | two times | | | | | | | SOPN | per day | | | | | | + + + + + + + + | FLUCONAZOL | take one | | | FLUCONAZOL | 2229230761 | Bailey W | | E 150 [...] tab two | | | CILOSTAZOL | 9925549398 | Kali | | 100 MG | times per | | | | 1 | Hakeem DICKEYM | | TABS | day | | | | | | + + + + + + + + | RIOMET 500 | 10ml's two | | | METFORMIN | 7033980204 | Laurance W | | MG/5ML | [...] D | | | | CHOLECALCI | 5270300967 | Kali | | 1000 UNIT | | | | FEROL | 0 | Hakeem DICKEYM | | TABS | | | | | | | + + + + + + + + | BYETTA 5 | Take as | | | EXENATIDE | 0809069971 | Christen Ramirez | | MCG PEN 5 | directed | | | | 1 | [place] | | MCG/0.02ML | once daily | | | | | MEDICAL TECHNOLOGIST HEMATOLOGY | | SOPN | in the AM [...] two times | | | METFORMIN | 9959220184 | Mariano | | HCL 1000 | per day | | | HCL | 1 | Ariella | | MG TABS | | | | | | CCMA | + + + + + + + + | GABAPENTIN | Take 2 | | | GABAPENTIN | 2901594238 | Bailey Paez | | 300 MG | capsules | [...] TAKE ONE | | | PREGABALIN | [id number] | Kesha | | MG CAPS | [...] 1 TAB | | | BUSPIRONE | [id number] | Kali | | HCL 7.5 MG | three | | | HCL | 5 | Palacio DPM | | TABS | times per | | | | | | | | day | | | | | | + + + + + + + + | LANTUS 100 | 25 units | | | INSULIN | [id number] | Jesus | | UNIT/ML | two [...] two times | | | MECLIZINE | [id number] | Laurance W | | HCL 25 MG | per day | | | HCL | 2 | Lila MD | | TABS | | | | | | | + + + + + + + + | MECLIZINE | One tab by | | | MECLIZINE | [phone] | Laurance W | | HCL 25 [...] | | N 300 MG | | Lial MD | | CAP | hrs for 7 | | | CAP | | | | | days | | | | | | + + + + + + + + | VITAMIN D | Take one | | | CHOLECALCI | [phone] | Jesus | | 1000 UNIT | tablet | | | FEROL | 0 | Ethan MD | | TABS | daily in | | | | | | | | the AM | | | | | | + + + + + + + + | POTASSIUM | | | | POTASSIUM | [id number] | Kali | | CHLORIDE | | | | CHLORIDE | 5 | Palacio DPM | | ER 10 MEQ | | | | | | | | CR-CAPS | | | | | | | + + + + + + + + | DULOXETINE | 1 tab one | | | DULOXETINE | [id number] | Bailey W | | HCL 30 MG | time per | | | HCL | 6 | Lila MD | | CPEP | day | | | | | | + + + + + + + + | VICTOZA 18 | | | | LIRAGLUTID | [id number] | Jesus | | MG/3ML | | | | E | 2 | Ethan MD | | SOPN | | | | | | | + + + + + + + + | BASAGLAR | 1 pen | | | INSULIN | 0664014549 | Christen Ramirez | | KWIKPEN | every 3 | | | GLARGINE | 9 | [place] | | 100 | days 56 | | | | | MEDICAL TECHNOLOGIST HEMATOLOGY | | UNIT/ML | units q | [...] by mouth | | | MECLIZINE | 3164720089 | Bailey W | | HCL 25 [...] mix and | | | NA | [id number] | Maulik | | BOWEL PREP | [...] 18 | | | | LIRAGLUTID | [id number] | Franciscoance W | | MG/3ML | | | | E | 2 | Lila MD | | SOPN | | | | | | | + + + + + + + + | VICTOZA 18 | Inject 0.6 | | | LIRAGLUTID | [id number] | Christen J. | | MG/3ML | mg daily | | | E | 2 | [place] | | SOPN | | | | | | MEDICAL TECHNOLOGIST HEMATOLOGY | + + + + + + + + | LIPITOR 20 | take 1 | | | ATORVASTAT | [id number] | Christen J. | | MG TABS | tablet by | | | IN CALCIUM | 0 | [place] | | | mouth | | | | | MEDICAL TECHNOLOGIST HEMATOLOGY | | | daily in | | | | | | | | the | | | | | | | | evening | | | | | | + + + + + + + + | BASAGLAR | 56 Units | | | INSULIN | [id number] | Christen J. | | KWIKPEN | every | | | GLARGINE | 9 | [place] | | 100 | morning | | | | | MEDICAL TECHNOLOGIST HEMATOLOGY | | UNIT/ML | | | | | | | | SOPN | | | | | | | + + + + + + + + | BASAGLAR | 56 Units | | | INSULIN | 2592244178 | Christen J. | | KWIKPEN | by mouth | | | GLARGINE | 9 | [place] | | 100 | every | | | | | MEDICAL TECHNOLOGIST HEMATOLOGY | | UNIT/ML | morning | | | | | | | SOPN | | | | | | | + + + + + + + + | VICTOZA 18 | 5 unit AM | | | LIRAGLUTID | [id number] | Christen Ramirez | | MG/3ML | and 5 | | | E | 2 | [place] | | SOPN | units PM | | | | | MEDICAL TECHNOLOGIST HEMATOLOGY | + + + + + + + + | BASAGLAR | 1 pen | | | INSULIN | 5463667186 | Christen Escudero. | | KWIKPEN | every 3 | | | GLARGINE | 9 | [place] | | 100 | days 56 | | | | | MEDICAL TECHNOLOGIST HEMATOLOGY | | UNIT/ML | units q | | | | | | | SOPN | Day | | | | | | + + + + + + + + | MECLIZINE | One tab by | | | MECLIZINE | 2725634774 | Christen Escudero. | | HCL 25 MG | mouth | | | HCL | 0 | [place]ita | | TABS | three | | | | | MEDICAL TECHNOLOGIST HEMATOLOGY | | | times per | | | | | | | | day | | | | | | + + + + + + + + | PEN | Use one | | | PEN | | Christen Escudero. | | NEEDLES | pen needle | | | NEEDLES | | [place] | | FOR | every | | | FOR | | MEDICAL TECHNOLOGIST HEMATOLOGY | | BASAGLAR | morning | | | BASAGLAR | | | | KWIKPEN | with | | | KWIKPEN | | | | | Basaglar | | | | | | | | Kwikpen | | | | | | + + + + + + + + | BYETTA 5 | Take as | | | EXENATIDE | [id number] | Christen Ramirez | | MCG PEN 5 | directed | | | | 1 | [place] | | MCG/0.02ML | once daily | | | | | MEDICAL TECHNOLOGIST HEMATOLOGY | | SOPN | in the AM | | | | | | + + + + + + + + | LANTUS 100 | 56 units | | | INSULIN | 2101529990 | Kaykay | | UNIT/ML | qAM | | | GLARGINE | 3 | Mora DO | | SOLN | | | | | | | + + + + + + + + | PLAVIX 75 | 1 tab by | | | CLOPIDOGRE | 7285076654 | David | | MG TABS | [...] Take one | | | VALSARTAN | 7615323220 | Christen Ramirez | | 160 MG | tablet | | | | 2 | [place] | | TABS | daily in | | | | | MEDICAL TECHNOLOGIST HEMATOLOGY | | | the AM | | | | | | + + + + + + + + | OMEPRAZOLE | Take one | | | OMEPRAZOLE | 4090403498 | Christen Ramirez | | 40 MG | by mouth | | | | 5 | [place] | | CPDR | one time | | | | | MEDICAL TECHNOLOGIST HEMATOLOGY | | | per day | | [...] mix and | | | NA | 7698938671 | Emeka | | BOWEL PREP | drink one | | | SULFATE-K | 1 | Eduardo MD | | SOLN | bottle at [...] pill BID | | | DOCUSATE | [id number] | Christen Ramirez | | MG CAPS | | | | SODIUM | 0 | [place] | | | | | | | | MEDICAL TECHNOLOGIST HEMATOLOGY | + + + + + + + + | BD INSULIN | Use 5 | | | INSULIN | 2363890071 | Tiesha | | SYRINGE | times | | | SYRINGE-NE | 1 | [place] MD | | ULTRAFINE | daily to [...] 1 tab | | | PREGABALIN | 6819218690 | Tiesha | | MG CAPS | [...] <150 - | | | INSULIN | 7415539800 | Tiesha | | 100 | No insulin | | | LISPRO | 1 | [place] MD | | UNIT/ML | BS | [...] Use daily | | | INSULIN | 2695371725 | Tiesha | | NEEDLE | to inject | | | PEN NEEDLE | 3 | [place] MD | | ULTRAFINE | insulin | | | | | | | 29G X | | | | | | | | 12.7MM | | | | | | | | MISC | | | | | | | + + + + + + + + | RELION | Use daily | | | GLUCOSE | 9454121279 | Tiesha | | BLOOD | to check | | | BLOOD | 4 | Maria Isabel MD | | GLUCOSE | blood | | | | | | | TEST STRP | sugar | | | | | | + + + + + + + + | LASIX 80 | 1 tab by | | | FUROSEMIDE | 6099306936 | Tiesha | | MG TABS | mouth one | | | | 5 | [place] MD | | | time per | | | | | | | | day in the | | | | | | | | AM | | | | | | + + + + + + + + | DIABETIC | 1 pair per | | | FOOT CARE | 0696019112 | Tiesha | | INSOLES | custom [...] 1 pill | | | CEPHALEXIN | 1345153052 | Pako | | MG CAPS | twice a | | | | 0 | Middlekauf | | | day for 7 | | | | | f MEDICAL TECHNOLOGIST HEMATOLOGY | | | days | | | | | | + + + + + + + + | BYETTA 5 | 0.02 ml | | | EXENATIDE | 2575553686 | Laurance W | | MCG PEN 5 | injection | | | | 1 | Lila MD | | MCG/0.02ML | two times | | | | | | | SOPN | per day | | | | | | + + + + + + + + | LYRICA 100 | 1 tab | | | PREGABALIN | 9003573114 | Laurance W | | MG CAPS | three | | | | 8 | Lila MD | | | times per | | | | | | | | day | | | | | | + + + + + + + + | DRAMAMINE | take 1-2 | | | DIMENHYDRI | 6761292306 | Laurance W | | 50 MG [...] Use 5 | | | INSULIN | 2032553506 | Laurance W | | SYRINGE | [...] tab by | | | CLOPIDOGRE | 7512136117 | Franciscoance W | | MG TABS | mouth one | | | L | 4 | Lila MD | | | time per | | | BISULFATE | | | | | day | | | | | | + + + + + + + + | LANTUS 100 | 25 units | | | INSULIN | 3128592263 | Laurance W | | UNIT/ML | two times | | | GLARGINE | 3 | Lila MD | | SOLN | per day | | | | | | + + + + + + + + | LASIX 80 | 1 tab by | | | FUROSEMIDE | 6383036814 | Laurance W | | MG TABS | mouth one | | | | 5 | Lila MD | | | time per | | | | | | | | day | | | | | | + + + + + + + + | FUROSEMIDE | 1 tab one | | | FUROSEMIDE | 2875681617 | Laurance W | | 40 MG | time per | | | | 0 | Lila MD | | TABS | day | | | | | | + + + + + + + + | BUSPIRONE | 1 TAB | | | BUSPIRONE | 6318841887 | Laurance W | | HCL 7.5 MG | three | | | HCL | 5 | Lila MD | | TABS | times per | | | | | | | | day | | | | | | + + + + + + + + | COLACE 100 | 1 tab by | | | DOCUSATE | 5862330025 | Laurance W | | MG CAPS | mouth | | | SODIUM | 0 | Lila MD | | | daily at | | | | | | | | bedtime | | | | | | + + + + + + + + | BACTRIM DS | 1 by mouth | | | TRIMETHOPR | 4526132520 | Laurance W | | 800-160 | twice a | | | IM-SULFAME | 1 | Lila MD | | MG TABS | day for 3 | | | THOXAZOLE | | | | | days | | | | | | + + + + + + + + | LYRICA 50 | Take 1 tab | | | PREGABALIN | 3876182172 | Laurance W | | MG CAPS [...] tab one | | | METFORMIN | 9204629288 | Laurance W | | XR 500 MG | time per | | | HCL | 0 | Lila MD | | AT56D-ENP | day | | | | | | + + + + + + + + | NYSTATIN-T | Apply thin | | | NYSTATIN-T | 3170582185 | Laurance W | | RIAMCINOLO | layer to | | | RIAMCINOLO | 0 | Lila MD | | NE | affected | | | NE | | | | 246616-8.1 | area BID | | | | | | | UNIT/GM-% | prn for | | | | | | | CREA | itching | | | | | | + + + + + + + + | CILOSTAZOL | 1 tab two | | | CILOSTAZOL | 9196614435 | Laurance W | | 100 MG | times per | | | | 1 | Lila MD | | TABS | day | | | | | | + + + + + + + + | OMEPRAZOLE | Take one | | | OMEPRAZOLE | 9502112214 | Laurance W | | 40 MG [...] take 1 | | | ATORVASTAT | 9505912899 | Laurance W | | MG TABS | tablet by | | | IN CALCIUM | 0 | Lila MD | | | mouth | | | | | | | | daily | | | | | | + + + + + + + + | MECLIZINE | 1 tab | | | MECLIZINE | 2338342881 | Laurance W | | HCL 25 MG | three | | | HCL | 1 | Lila MD | | TABS | times per | | | | | | | | day | | | | | | + + + + + + + + | LANTUS 100 | 56 units | | | INSULIN | 9572727746 | Laurance W | | UNIT/ML | in the | | | GLARGINE | 3 | Lila MD | | SOLN | morning | | | | | | + + + + + + + + | ONDANSETRO | 1 tab | | | ONDANSETRO | 4285536162 | Laurance W | | N HCL 4 MG | every 4 | | | N HCL | 3 | Lila MD | | TABS | hours | | | | | | + + + + + + + + | PIOGLITAZO | Take 1 tab | | | PIOGLITAZO | 6869546543 | Laurance W | | NE HCL 15 | by mouth | | | NE HCL | 0 | Lila MD | | MG TABS | one time | | | | | | | | per day | | | | | | + + + + + + + + | RELION | Use to | | | GLUCOSE | 2107292242 | Bailey W | | BLOOD | test BG | | | BLOOD | 4 | Lila MD | | GLUCOSE | one time | | | | | | | TEST STRP | per day | | | | | | + + + + + + + + | GABAPENTIN | Take 2 | | | GABAPENTIN | 4379534415 | Bailey W | | 300 MG [...] TAB one | | | VALSARTAN | 3853671398 | Bailey W | | 160 MG | time per | | | | 2 | Lila MD | | TABS | day | | | | | | + + + + + + + + | LYRICA 50 | TAKE ONE | | | PREGABALIN | 6209157988 | Laurance W | | MG CAPS [...] 0.2 ml | | | EXENATIDE | 9251777797 | Laurance W | | MCG PEN 5 | injection | | | | 1 | Lila MD | | MCG/0.02ML | two times | | | | | | | SOPN | per day | | | | | | + + + + + + + + | VICTOZA 18 | 1.2 mg | | | LIRAGLUTID | 6607425131 | Laurance W | | MG/3ML | injected | | | E | 3 | Lila MD | | SOPN | martin | | | | | | + + + + + + + + | KEFLEX 500 | one po TID | | | CEPHALEXIN | 8935655046 | Susanna | | MG CAPS | | | | | 0 | Gianfranco LUIS | + + + + + + + + | FLUCONAZOL | take one | | | FLUCONAZOL | 0880701369 | Susanna | | E 150 MG | tablet PO | | | E | 0 | Gianfranco LUIS | | TABS | x 1 repeat | | | | | | | | in 3 days | | | | | | + + + + + + + + | LYRICA 50 | 1 tab | | | PREGABALIN | 4997875547 | Bailey W | | MG CAPS | three | | | | 3 | Lila MD | | | times per | | | | | | | | day | | | | | | + + + + + + + + | GABAPENTIN | Take 2 | | | GABAPENTIN | 1039869371 | Laurance W | | 300 MG [...] tab one | | | DULOXETINE | 3302281146 | Laurance W | | HCL 30 MG | time per | | | HCL | 6 | Lila MD | | CPEP | day | | | | | | + + + + + + + + | RIOMET 500 | 10ml's two | | | METFORMIN | 2079262899 | Laurance W | | MG/5ML | [...] TAB one | | | VALSARTAN | 6796448625 | Laurance W | | MG TABS | time per | | | | 0 | Lila MD | | | day | | | | | | + + + + + + + + | MECLIZINE | One tab by | | | MECLIZINE | 5019561155 | Laurance W | | HCL 25 [...] take 2 | | | GABAPENTIN | 4734271074 | Laurance W | | 300 MG [...] tab one | | | VALSARTAN | 5360442740 | Laurance W | | MG TABS | time per | | | | 4 | Lila MD | | | day | | | | | | + + + + + + + + | VICTOZA 18 | 0.6 mg | | | LIRAGLUTID | 6091130249 | Laurance W | | MG/3ML | [...] tab one | | | SITAGLIPTI | 9993491376 | Laurance W | | 100 MG | time per | | | N | 8 | Lila MD | | TABS | day | | | PHOSPHATE | | | + + + + + + + + | GABAPENTIN | 2 tabs two | | | GABAPENTIN | 0001257174 | Laurance W | | 300 MG | times per | | | | 0 | Lila MD | | CAPS | day | | | | | | + + + + + + + + | DIOVAN 160 | 1 by mouth | | | VALSARTAN | 7359970361 | Laurance W | | MG TABS | every day | | | | 0 | Lila MD | + + + + + + + + | GABAPENTIN | 1 tab at | | | GABAPENTIN | 5317230686 | Laurance W | | 100 MG [...] 28 units | | | INSULIN | 3581554481 | Laurance W | | UNIT/ML | two times | | | GLARGINE | 0 | Lila MD | | SOLN | per day | | | | | | + + + + + + + + | LISINOPRIL | take 1 | | | LISINOPRIL | 1544002202 | Rogers | | 20 MG | tablet by | | | | 1 | Laith LUIS | | TABS | mouth | | | | | | | | daily | | | | | | + + + + + + + + | LANTUS 100 | 56 units | | | INSULIN | 9722525130 | Laurance W | | UNIT/ML | daily | | | GLARGINE | 0 | Lila MD | | SOLN | | | | | | | + + + + + + + + | GABAPENTIN | 1 by mouth | | | GABAPENTIN | 4101427856 | Laurance W | | 100 MG [...] | One | | | ERGOCALCIF | 7077340947 | Laurance W | | QUANG [address] | capsule by | | | QUANG [...] by mouth | | | LISINOPRIL | 5008130052 | Laurance W | | 5 MG TABS | one time | | | | 0 | Lila MD | | | per day | | | | | | + + + + + + + + | RIOMET 500 | 10ml QAM | | | METFORMIN | 4149417079 | Laurance W | | MG/5ML | Liquid due | | | HCL | 2 | Lila MD | | SOLN | to | | | | | | | | Dysphagia | | | | | | + + + + + + + + | COLACE 100 | one tablet | | | DOCUSATE | 7448286240 | Laurance W | | MG CAPS | by mouth | | | SODIUM | 0 | Lila MD | | | at bedtime | | | | | | + + + + + + + + | MECLIZINE | 1 by mouth | | | MECLIZINE | 4258689002 | Laurance W | | HCL 25 [...] one tablet | | | METFORMIN | 4582541737 | Laurance W | | HCL 1000 | by mouth | | | HCL | 0 | Lila MD | | MG TABS | twice a | | | | | | | | day | | | | | | + + + + + + + + | ASPIRIN 81 | 1 by mouth | | | ASPIRIN | 2846285658 | Laurance W | | MG TABS | every day | | | | 5 | Lila MD | + + + + + + + + | GABAPENTIN | one tablet | | | GABAPENTIN | 3522648672 | Laurance W | | 100 MG [...] | | | | | | | [place] | | | | | | | MEDICAL TECHNOLOGIST HEMATOLOGY | + + + + + + [...] + | Lab Report: Erythro Sed Rate, Terry | + + + +-----+----+------+------+---+ + | [...] + + +------+ +---+ + | | [id number] | 0.4 | g/dL | 0.2-0.5 | | beta 2 | | | LN | | | | | globulin | + + + +------+ +---+ + | | [id number] | 0.6 | g/dL | 0.4-0.8 | [...] | | | | | | | MD(Intermercedes | | | | | | | [...] + + +---------+ +---+---+ + | | SC | 156 | ms | | | SC | | | INTERVAL | | | [...] | + + +---------+--------+---+---+ + | | [id number] | 386 | mg/24h | | H [...] | | | Dietary | | | [employer] | | | | | management | [...] Visit: DAISY araya/hammad | + + + +------+----+---+---+---+ + | [...] +--------+ +---+---+---+ + | | ESM_RR | [id number] | | | B | e-scripts | [...] | | | | | | | [place]*` | | | | | | | | [id number] | | | | | | | | `[id number] | | | | | | | [...] + + +-----+-------+-------+---+ + + + | Office Visit: Endo [...] | 03:30 PM | David Cornejo MD [facility], | | | | [address] [facility] | | | | [address], [place], [address], | | | | | + + + + | Referral | | GI Consult | | | | Emeka Clark MD, [address] | | | | [address], | | | | [place], [address] | | | | | + + + + | Referral | | GI Consult | | | | Emeka Clark MD, [address] | | | | [address], | | | | [place], [address] | | | | | + + + + | Referral | | Nephrology Evaluation | | | | Anisa Reeves MD, | | | | [address] [facility] | | | | [address], [place], [address] | | | | | | | | | + + + + | Referral | | Nephrology Evaluation | | | | MD Iraj Juarez, | | | | [address], | | | | [address], [place], [place], [address] | | | | | | | | | + + + + | Referral | | Surgical Consult | | | | Jesus Long, [address] | | | [address], | | | | [place], [address] | | | | | + + + + | Referral | | Surgical Consult | | | | Jesus Long, [address] | | | [address], | | | | [place], [address] | | | | | + + + + | Referral | | Endocrinology Consult | + + + + | Referral | | Podiatry Consult | | | | Kali Palacio, [address] | | | | [place] [address], | | | | [place], [address] | | | | | + + + + | Referral | | Nephrology Evaluation | | | | MD Iraj Juarez, | | | | [address], | | | | [address], [place], [address] | | | | | | | | | + + + + | Referral | | Podiatry Consult | | | | Kali Palacio, [address] | | | | [place], | | | | [place], [address] | | | | | + + + + | Referral | | Nephrology Evaluation | | | | MD Iraj Juarez, | | | | [address], | | | | #[facility] [place], [address] | | | | | | | | | + + + + | Referral | | Neurology Consult | | | | opentabs Phone #, | | | | [phone] [facility] | | | | [place], [address] | | | | | + + + + | Referral | | Neurology Consult | | | | opentabs Phone #, | | | | [phone] | | | | [place], [place], [address] | | | | | + + + + | Referral | | MRA Head-WO Con | | | | Susanay Scheduling, [address] | | | [address], | | | | [place], [address] | | | | | + + + + | Referral | | MRA Head-WO Con | | | | Susanay Scheduling, [address] | | | [address], | | | | [place], [address] | | | | | + + + + | Referral | | MRA Head-WWO Con | | | | Susanay Scheduling, [address] | | | [address], | | | | [place], [address] | | | | | + + + + | Referral | | MRA Head-WWO Con | | | | Mercy Scheduling, [address] | | | [address], | | | | [place], [address] | | | | | + + + + +---+ + | | Referral excluded from report: | +---+ + + + + + | Referral | | Physical Therapy Evaluation | | | | [facility], [address] | [address] | | | | [facility], [place], [address] | | | | | | | | | + + + + | Referral | | Neurology Consult | | | | MD August Bourne, [address] | | | | [address] [place], | | | | [place], [address] | | | | | + + + + | Referral | | Neurology Consult | | | | Rogers Ozuna, [address] | | | | [address] [place], | | | | [place], [address] | | | | | + + + + | Referral | | Cardiology Consult | | | | MD Pelon Fay, | | | | [address] [facility] | | | | [address], [place], [address] | | | | | | | | | + + + + | Referral | | GI Consult | | | | [address] | | | | [address], [place], [address] | | | | | | | | | + + + + | Referral | | Physical Therapy Evaluation | | | | [facility], [address] | | | [address] | | | | [address], [place], [address] | | | | | | | | | + + + + | Referral | | Diabetic Education - | | | | Individual | | | | [facility], | | | | [address], | | | | [place], [address] | | | | | + + + + | Referral | | GI Consult | | | | [address] [facility] | | | | [address], [place], [address] | | | | | | | | | + + + + | Referral | | US Soft Tissue Head/Neck | | | | Exam Dian | | | | Scheduling, [address] | | | | [place], [place], [place], | | | | [address] | | | | | + + + + | Referral | | Neurology Consult | | | | [place] [facility] | | | | Clinic, [address] [facility], | | | | [place], [address] | | | | | + + + + | Referral | | VL Carotid-Cerebral Duplex | | | | Dian | | | | Scheduling, [address] | | | | [place], [place], [place], | | | | [address] | | | | | + + + + | Referral | | Holter Monitor | | | | Susanay Scheduling, [address] | | | | [address], | | | | [place], [address] | | | | | + + [...] Microalb/Creat Ratio UR, | | | | [place] | + + + + | Pending [...] | + + + + + | CPT-08990 | DAISY Norrisstick | | | + + + + + | CPT-55786 | Initial Psych | | | | | Evaluation | | | + + + + + | CPT-86088 | [facility] Nail, 6 or | | | | | more [address] | | | + + + + [...] | + + + + + | CPT-40448 | Trim Skin Lesions | | | | | [address] | | | + + + + + | CPT-62465 | [facility] Dipstick | | | + + + + + | CPT-49747 | De[facility]ide Nail, 6 or | | | | | more [address] | | | + + + + [...] + + + + | CPT-47451 | [facility], 6 or | | | | | more [address] | | | + + + + [...] | + + + + + | CPT-04568 | MRA Head-WWO Con | | | + + + + + +---+ + | | Order excluded from report: | +---+ + + + + + + | [facility]-86808 | Physical Therapy | | | | | Evaluation | | | + + + + + | [id number] | [facility] Generic Patient | | | | | Encounter Service | | | | | (from patch) | | | + + + + + | [id number] | [Recorded for CQ] | | | | | Documentation of | | | | | current medications | | | | | (procedure) | | | + + + + + | [id number] | [Recorded for CQM] | | | | | Documentation of | | | | | current medications | | | | | (procedure) | | | + + + + + | [id number] | [Recorded for CQM] | | | | | Documentation of | | | | | current medications | | | | | (procedure) | | | + + + + + | [id number] | [Recorded for CQM] | | | | | Documentation of | | | | | current medications | | | | | (procedure) | | | + + + + + | FREE T4 82244 | T4 Free | | | + + + + + | T3 FREE 71937 | T3 Free | | | + + + + + | TSH 77970 | TSH | | | + + + + + | ROSETTAO HGB 43600 | HgbA1C | | | + + + + + | [id number] | [facility] Generic Patient | | | | | Encounter Service | | | | | (from patch) | | | + + + + + | [id number] | [Recorded for [facility]] | | | | | Documentation of | | | | | current medications | | | | | (procedure) | | | + + + + + | [id number] | [facility] Generic Patient | | | | | Encounter Service | | | | | (from patch) | | | + + + + + | CPT-77410 | EKG- tracing with | | | | | report (71717) | | | + + + + + | [id number] | [Recorded for CQM] | | | | | Documentation of | | | | | current medications | | | | | (procedure) | | | + + + + + | [id number] | [facility] Generic Patient | | | | | Encounter Service | | | | | (from patch) | | | + + + + + | CPT-Troponin l | Troponin I | | | | 38427 | | | | + + + + + | [id number] | [Recorded for CQM] | | | | | Documentation of | | | | | current medications | | | | | (procedure) | | | + + + + + | CPT-38501 | Physical Therapy | | | | | Evaluation | | | + + + + + | CPT-G8427 | Current Medications | | | | | Documented | | | + + + + + | [id number] | [Recorded for CQM] | | | | | Documentation of | | | | | current medications | | | | | (procedure) | | | + + + + + | CPT-G8427 | Current Medications | | | | | Documented | | | + + + + + | [id number] | [Recorded for CQM] | | | [...] + + + + | CHEM PROF 94574 | CMP (Comprehensive | | | | | Metabolic Panel) | | | + + + + + | GLYCO HGB 17359 | HgbA1C | | | + + + + + | CPT-Q2037 | Fluvirin | | | | | (Influenza) | | | | | Med/Atrio | | | + + + + + | RISK 27165 | Lipid Profile | | | + + + + + | VIT D HYDR 30936 | Vit D, 25 hydroxy | | | + + + + + | CYC CITRU 95828 | Cyclic | | | | | Citrullinated Pept | | | | | IgG | | | + + + + + | RA QUANT 31766 | Rheumatoid Factor | | | | | (quant) | | | + + + + + | TSH 87544 | TSH | | | + + + + + | IVANA 04013 | IVANA | | | + + + + + | GLYCO HGB 23749 | HgbA1C | | | + + + + + | CPT-95241 | EKG- tracing with | | | | | report (02428) | | | + + + + + | CPT-18654 | ANDRE | | | + + + + + | 27047 88251 | Holter Monitor 48H | | | | | Panel | | | + + + + + | 58011 61196 | Holter Monitor 72H | | | | | Panel | | | + + + + + | CPT-32966 | Barium Swallow MBS | | | | | with Speech | | | + + + + + | 36067 74275 | US Abdomen-Cmplt | | | | | and Pelvic-Lmtd | | | + + + + + | CPT-62573 | US Soft Tissue | | | | | Head/Neck Exam | | | + + + + + | CPT-67831 | Motor nerve testing | | | | | - each nerve | | | + + + + + | RISK 42530 | Lipid Profile | | | + + + + + | ESR 02243 | Sedimentation Rate | | | | | (ESR) | | | + + + + + | SPEP IF 76890 | SPEP with JESÚS if | | | | | indicated | | | + + + + + | B12+FOLATE MULTIPLE | B-12 - Folate | | | + + + + + | PFA 63456 | Platelet Function | | | | | Assay | | | + + + + + | 20518 | MRA Head-WO Con | | | + + + + + | 21397 | MR Head-WO Con | | | + + + + + | CPT-87682 | VL Carotid-Cerebral | | | | | Duplex | | | + + + + + | CPT-09934 | Holter Monitor | | | + + + + + | D DIMER 42134 | D-dimer (tyrese) | | | + + + + + | 37188 | CT Head-WWO Con | | | + + + + + | VIT D HYDR 02452 | Vit D, 25 hydroxy | | | + + + + + | TSH 76650 | TSH | | | + + + + + | B12+FOLATE MULTIPLE | B-12 - Folate | | | + + + + + | UA 02374 | Urinalysis | | | + + + + + | CHEM PROF 52033 | CMP (Comprehensive | | | | | Metabolic Panel) | | | + + + + + | CBC 43856 | CBC w/ Diff - w/ | | | | | platelets | | | + + + + + | GLYCO HGB 86786 | HgbA1C | | | + + + + + | TSH 10054 | TSH | | | + + + + + | VIT D HYDR 58400 | Vit D, 25 hydroxy | | [...] | 172.4 | [lb_av] | weight E&M - | [...]
--- OUTSIDE RECORDS SUMMARY | ~2019-03-25 | XMS | Continuity of Care Document ---
Demographics + + + | Address | [address] | | | [place] [address] | + + + | Home Phone | | + + + | Preferred Language | Unknown | + + + | Marital Status | Unknown | + + + | Presybeterian Affiliation | Unknown | + + + | Race | Unknown | + + + | Ethnic Group | Unknown | + + + Author + + + | Author | [facility] | + + + | Organization | [facility] | + + + | Address | [address] | | | [place] [address] | + + + | Phone | Unavailable | + + + Support + + + + + | Name | Relationship | Address | Phone | + + + + + | Provider, ED | Caregiver | [address] [place] | | | | [place] | | | | | [address] | | + + + + + | Tiesha Nicolas | Caregiver | [address] | | | MD | | [place] [address] | | + + + + + | Franck Olvera | Caregiver | Emergency | | | | | [place], | | | | | [place] [address] | | + + + + + | DOLORES DIANA | Next Of [facility] | [address] | | | | | [place] [address] | | + + + + + Care Team Providers + + + + | Care Systems Operator Name | Role | Phone | + + + + | Tiesha Nicolas MD | Unavailable | | + + + + Insurance Providers + + + + + | Payer Name | Policy Number | Subscriber Name | Relationship | + + + + + | [employer] | [id number] | JULI DIANA | SELF | | PLAN | | | | + + + + + | MARY NOLEN | [id number] | JULI DIANA | SELF | | (SUPPLEMENT) | | | | + + + + + Chief Complaint and Reason for Visit + + + | Reason for Visit | AMB SADE UTI ALT LOC | + + + Problems Active Medical [...] PO | Twice | [address] | | 02// | | [place]aima | | | | [...] | + + + + + | [place], Disposable | | Unknown | Discontinued | [...] + + + | Discharge Date | 07/21/16 | + + + | Disposition | HOME | + + + | Condition at Discharge | Fair | + + + | Instructions/Education Provided | Altered Mental Status | + + + | Forms Provided | ARCHITRAVE CONSENT | + + + | Prescriptions | See Medications Section | + + + | Referrals | Tiesha Nicolas MD - | | | | | | Larry Galo MD - | + + + | Additional Instructions/Education | stop Cipro | + + + Functional Status No functional status results. Allergies, Adverse Reactions, Alerts + +---------+ + +--------+ + | Allergen | Type | Severity | Reaction | Status | Last Updated | + +---------+ + +--------+ + | hydrocodone | Allergy | Mild | HALLUCINATIO | Active | 07/16/16 | | bit | | | NS | | | + +---------+ + +--------+ + | morphine | Allergy | Mild | HALLUCINATIO | Active | 07/16/16 | | | | | N | | | + +---------+ + +--------+ + Immunizations No Known History of Immunizations. Vital Signs + + + + | Vital Reading | Collection Date/Time | Result | + + + + | Blood Pressure | 07/20/16 11:58pm | 146/73 | + + + + | Blood Pressure Source | 05/01/15 10:30am | Left Arm | + + + + | Patient Temperature | 07/20/16 11:58pm | 98.0 | + + + + | Temperature Source | 07/20/16 10:31pm | Temporal | + + + + | Respiratory Rate | 07/20/16 11:58pm | 16 | + + + + | Pulse Rate | 07/20/16 11:58pm | 78 | + + + + | Bedside Pulse Oximetry | 07/20/16 11:58pm | 97 | + + + + | Height | 07/20/16 10:31pm | 5 ft 1 in | + + + + | Weight | 07/20/16 10:31pm | 70.31 kg | + + + + | Weight | 07/20/16 10:31pm | 155 lb | + + + + | Body Mass Index | 07/20/16 10:31pm | 29.3 | + + + + Results Laboratory [...] | 11:53pm | 0:06am | | + +--------+ +-------+ + + + + | Hematocr | 31.6 | % | L | 33.0-51. | 07/20/16 | 07/21/16 | | | it | | | | 0 | 11:53pm | 0:06am | | + +--------+ +-------+ + + [...] | 11:53pm | 0:06am | | + +--------+ +-------+ + + [...] | 11:53pm | 0:38am | | + +--------+ +-------+ + + + + | Potassiu | 4.3 | mmol/L | | 3.5-5.5 | 07/20/16 | 07/21/16 | | | m Level | | | | | 11:53pm | 0:38am | | + +--------+ +-------+ + + + + | Chloride | 113 | mmol/L | H | 98-108 | 07/20/16 | 07/21/16 | | | Level | | | | | 11:53pm | 0:38am | | + +--------+ +-------+ + + [...] | 11:53pm | 0:38am | | + +--------+ +-------+ + + + + | Glucose | 246 | mg/dL | H | 70-99 | 07/20/16 | 07/21/16 | | | Level | | | | | 11:53pm | 0:38am | | + +--------+ +-------+ + + [...] | 11:53pm | 0:38am | | + +--------+ +-------+ + + [...] | | | | | | | [place] | | on Rate | | | | | | | GFR | | Calc | | | | | | | CalcFor | | | | | | | | | | | | | | | | | | [place] | | | | | | | [...] | 11:53pm | 0:38am | | + +--------+ +-------+ + + + + | Total | 6.3 | g/dL | L | 6.4-8.2 | 07/20/16 | 07/21/16 | | | Protein | | | | | 11:53pm | 0:38am | | + +--------+ +-------+ + + + + | Albumin | 3.1 | g/dL | L | 3.4-5.0 | 07/20/16 | 07/21/16 | | | | | | | | 11:53pm | 0:38am | | + +--------+ +-------+ + + + + | Globulin | 3.2 | g/dL | | 2.2-4.0 | 07/20/16 | 07/21/16 | | | | | | | | 11:53pm | 0:38am | | + +--------+ +-------+ + + + + | Albumin/ | 1.0 | | | 0.8-1.8 | 02/24/17 | 07/21/16 | | | Globulin | [...] | 11:53pm | 0:38am | | + +--------+ +-------+ + + [...] | 1:52pm | 2:04pm | | + +--------+ +-------+ + + + + | Hematocr | 35.8 | % | | 33.0-51. | 07/19/16 | 07/19/16 | | | it | | | | 0 | 1:52pm | 2:04pm | | + +--------+ +-------+ + + [...] | 1:52pm | 2:04pm | | + +--------+ +-------+ + + [...] | 1:52pm | 2:19pm | | + +--------+ +-------+ + + + + | Potassiu | 4.3 | mmol/L | | 3.5-5.5 | 07/19/16 | 07/19/16 | | | m Level | | | | | 1:52pm | 2:19pm | | + +--------+ +-------+ + + + + | Chloride | 105 | mmol/L | | 98-108 | 07/19/16 | 07/19/16 | | | Level | | | | | 1:52pm | 2:19pm | | + +--------+ +-------+ + + [...] | 1:52pm | 2:19pm | | + +--------+ +-------+ + + + + | Glucose | 198 | mg/dL | H | 70-99 | 07/19/16 | 07/19/16 | | | Level | | | | | 1:52pm | 2:19pm | | + +--------+ +-------+ + + [...] | 1:52pm | 2:19pm | | + +--------+ +-------+ + + [...] | 1:52pm | 2:19pm | | + +--------+ +-------+ + + + + | Total | 7.6 | g/dL | | 6.4-8.2 | 07/19/16 | 07/19/16 | | | Protein | | | | | 1:52pm | 2:19pm | | + +--------+ +-------+ + + + + | Albumin | 3.8 | g/dL | | 3.4-5.0 | 07/19/16 | 07/19/16 | | | | | | | | 1:52pm | 2:19pm | | + +--------+ +-------+ + + + + | Globulin | 3.8 | g/dL | | 2.2-4.0 | 07/19/16 | 07/19/16 | | | | | | | | 1:52pm | 2:19pm | | + +--------+ +-------+ + + [...] + + + + | Urine | Voided | | | | 07/16/16 | 07/16/16 | | | Source | | | | | 3:45pm | 4:13pm | | + +--------+ +-------+ + + + + | Urine | Pale | | | P-Yellow | 07/16/16 | 07/16/16 | | | Color | Yellow | | | | 3:45pm | 4:13pm | | + +--------+ +-------+ + + + + | Urine | Clear | | | Clear | 07/16/16 | 07/16/16 | | | Appearan | | | | | 3:45pm | 4:13pm | | | ce | | | | | | | | + +--------+ +-------+ + + + + | Urine | 1.010 | | | 1.003-1. | 07/16/16 | 07/16/16 | | | Specific | | | | 022 | 3:45pm | 4:13pm | | | [place] | | | | | | | | + +--------+ +-------+ + + + + | Urine pH | 8.0 | | * | 5.0-8.0 | 07/16/16 | 07/16/16 | | | | | | | | 3:45pm | 4:13pm | | + +--------+ +-------+ + + + + | Urine | 1+ | | * | Neg | 07/16/16 | 07/16/16 | | | Leukocyt | | | | | 3:45pm | 4:13pm | | | e | | | | | | | | | Esterase | | | | | | | | + +--------+ +-------+ + + + + | Urine | Neg | | | Neg | 07/16/16 | 07/16/16 | | | Nitrite | | | | | 3:45pm | 4:13pm | | + +--------+ +-------+ + + + + | Urine | 3+ | | * | Neg | 07/16/16 | 07/16/16 | | | Protein | | | | | 3:45pm | 4:13pm | | + +--------+ +-------+ + + + + | Urine | 3+ | | * | Neg | 07/16/16 | 07/16/16 | | | Glucose | | | | | 3:45pm | 4:13pm | | + +--------+ +-------+ + + + + | Urine | 1+ | | * | Neg | 07/16/16 | 07/16/16 | | | Ketones | | | | | 3:45pm | 4:13pm | | + +--------+ +-------+ + + + + | Urine | NORM | | | Normal | 07/16/16 | 17 | | | Urobilin | | | | | 3:45pm | 4:13pm | | | ogen | | | | | | | | + +--------+ +-------+ + + + + | Urine | Neg | | | Neg | 07/16/16 | 07/16/16 | | | Bilirubi | | | | | 3:45pm | 4:13pm | | | n | | | | | | | | + +--------+ +-------+ + + + + | Urine | 1+ | | * | Neg | 07/16/16 | 07/16/16 | | | Blood | | | | | 3:45pm | 4:13pm | | + +--------+ +-------+ + + + + | Urine | 2-5 | /hpf | | 0-5 | 07/16/16 | 07/16/16 | | | WBC | | | | | 3:45pm | 4:14pm | | + +--------+ +-------+ + + + + | Urine | 0-2 | /hpf | | 0-2 | 07/16/16 | 07/16/16 | | | RBC | | | | | 3:45pm | 4:14pm | | + +--------+ +-------+ + + + + | Urine | Few | /hpf | | Few | 07/16/16 | 07/16/16 | | | Squamous | | | | | 3:45pm | 4:14pm | | | | | | | | | | | | Epitheli | | | | | | | | | al Cells | | | | | | | | + +--------+ +-------+ + + + + | Urine | Rare | /hpf | * | None | 07/16/16 | 07/16/16 | | | Bacteria | | | | | 3:45pm | 4:14pm | | + +--------+ +-------+ + + + + | Urine | Yes | | * | No | 07/16/16 | 07/16/16 | | | Culture | | | | | 3:45pm | 4:13pm | | | Indicate | | | | | | | | | d | | | | | | | | + +--------+ +-------+ + + + + | White | 5.69 | K/mm3 | | 4.00-11. | 07/16/16 | 07/16/16 | | | Blood | | | | 30 | 1:27pm | 1:50pm | | | Count | | | | | | | | + +--------+ +-------+ + + + + | Red | 4.47 | M/mm3 | | 3.80-5.2 | 07/16/16 | 07/16/16 | | | Blood | | | | 0 | 1:27pm | 1:50pm | | | Count | | | | | | | | + +--------+ +-------+ + + + + | Hemoglob | 12.9 | g/dL | | 11.5-16. | 07/16/16 | 07/16/16 | | | in | | | | 0 | 1:27pm | 1:50pm | | + +--------+ +-------+ + + + + | Hematocr | 37.9 | % | | 33.0-51. | 07/16/16 | 07/16/16 | | | it | | | | 0 | 1:27pm | 1:50pm | | + +--------+ +-------+ + + + + | Mean | 85 | fL | | 80-100 | 07/16/16 | 07/16/16 | | | Corpuscu | | | | | 1:27pm | 1:50pm | | | lar | | | | | | | | | Volume | | | | | | | | + +--------+ +-------+ + + + + | Mean | 28.9 | pg | | 26.0-34. | 07/16/16 | 07/16/16 | | | Corpuscu | | | | 0 | 1:27pm | 1:50pm | | | lar | | | | | | | | | Hemoglob | | | | | | | | | in | | | | | | | | + +--------+ +-------+ + + + + | Mean | 34.0 | g/dL | | 31.5-36. | 07/16/16 | 07/16/16 | | | Corpuscu | | | | 5 | 1:27pm | 1:50pm | | | lar | | | | | | | | | Hemoglob | | | | | | | | | in | | | | | | | | | Concent | | | | | | | | + +--------+ +-------+ + + + + | RDW | 39.8 | fL | | 35.1-46. | 07/16/16 | 07/16/16 | | | Standard | | | | 3 | 1:27pm | 1:50pm | | | | | | | | | | | | Deviatio | | | | | | | | | n | | | | | | | | + +--------+ +-------+ + + + + | RDW | 13.1 | % | | 11.7-14. | 07/16/16 | 07/16/16 | | | Coeffici | | | | 2 | 1:27pm | 1:50pm | | | ent of | | | | | | | | | Variatio | | | | | | | | | n | | | | | | | | + +--------+ +-------+ + + + + | Platelet | 138 | K/mm3 | L | 150-400 | 07/16/16 | 07/16/16 | | | Count | | | | | 1:27pm | 1:50pm | | + +--------+ +-------+ + + + + | Mean | 12.7 | fL | H | 9.1-12.4 | 07/16/16 | 07/16/16 | | | Platelet | | | | | 1:27pm | 1:50pm | | | Volume | | | | | | | | + +--------+ +-------+ + + + + | Differen | Auto | | | | 07/16/16 | 07/16/16 | | | tial | | | | | 1:27pm | 1:50pm | | | Method | | | | | | | | + +--------+ +-------+ + + + + | Neutroph | 64 | % | | 41-73 | 07/16/16 | 07/16/16 | | | ils (%) | | | | | 1:27pm | 1:50pm | | | (Auto) | | | | | | | | + +--------+ +-------+ + + + + | Lymphocy | 28 | % | | 21-46 | 07/16/16 | 07/16/16 | | | serge (%) | | | | | 1:27pm | 1:50pm | | | (Auto) | | | | | | | | + +--------+ +-------+ + + + + | Monocyte | 6 | % | | 4-13 | 17 | 07/16/16 | | | s (%) | | | | | 1:27pm | 1:50pm | | | (Auto) | | | | | | | | + +--------+ +-------+ + + + + | Eosinoph | 2 | % | | 0-6 | 07/16/16 | 07/16/16 | | | ils (%) | | | | | 1:27pm | 1:50pm | | | (Auto) | | | | | | | | + +--------+ +-------+ + + + + | Basophil | 1 | % | | 0-2 | 07/16/16 | 07/16/16 | | | s (%) | | | | | 1:27pm | 1:50pm | | | (Auto) | | | | | | | | + +--------+ +-------+ + + + + | Immature | 0 | % | | 0-1 | 07/16/16 | 07/16/16 | | | | | | | | 1:27pm | 1:50pm | | | Granuloc | | | | | | | | | yte % | | | | | | | | | (Auto) | | | | | | | | + +--------+ +-------+ + + + + | Nucleate | 0.0 | /100 WBC | | 0.0-0.2 | 07/16/16 | 07/16/16 | | | d Red | | | | | 1:27pm | 1:50pm | | | Blood | | | | | | | | | Cells % | | | | | | | | + +--------+ +-------+ + + + + | Absolute | 3.64 | K/mm3 | | 1.96-9.1 | 07/16/16 | 07/16/16 | | | | | | | 5 | 1:27pm | 1:50pm | | | Neutroph | | | | | | | | | ils | | | | | | | | | (auto) | | | | | | | | + +--------+ +-------+ + + + + | Absolute | 1.59 | K/mm3 | | 0.84-5.2 | 07/16/16 | 07/16/16 | | | | | | | 0 | 1:27pm | 1:50pm | | | Lymphocy | | | | | | | | | serge | | | | | | | | | (auto) | | | | | | | | + +--------+ +-------+ + + + + | Absolute | 0.33 | K/mm3 | | 0.16-1.4 | 07/16/16 | 07/16/16 | | | | | | | 7 | 1:27pm | 1:50pm | | | Monocyte | | | | | | | | | s (auto) | | | | | | | | + +--------+ +-------+ + + + + | Absolute | 0.09 | K/mm3 | | 0.00-0.6 | 07/16/16 | 07/16/16 | | | | | | | 8 | 1:27pm | 1:50pm | | | Eosinoph | | | | | | | | | ils | | | | | | | | | (auto) | | | | | | | | + +--------+ +-------+ + + + + | Absolute | 0.03 | K/mm3 | | 0.00-0.2 | 07/16/16 | 07/16/16 | | | | | | | 3 | 1:27pm | 1:50pm | | | Basophil | | | | | | | | | s (auto) | | | | | | | | + +--------+ +-------+ + + + + | Absolute | 0.01 | K/mm3 | | 0.00-0.1 | 07/16/16 | 07/16/16 | | | | | | | 0 | 1:27pm | 1:50pm | | | Immature | | | [...] 0.00 | K/mm3 | | 0.00-0.0 | 07/16/16 | 07/16/16 | | | d RBC | | | | 2 | 1:27pm | 1:50pm | | | Absolute | | | | | | | | | Count | | | | | | | | | (auto) | | | | | | | | + +--------+ +-------+ + + + + | Sodium | 140 | mmol/L | | 136-145 | 07/16/16 | 07/16/16 | | | Level | | | | | 1:27pm | 2:12pm | | + +--------+ +-------+ + + + + | Potassiu | 4.3 | mmol/L | | 3.5-5.5 | 07/16/16 | 07/16/16 | | | m Level | | | | | 1:27pm | 2:12pm | | + +--------+ +-------+ + + + + | Chloride | 104 | mmol/L | | 98-108 | 07/16/16 | 07/16/16 | | | Level | | | | | 1:27pm | 2:12pm | | + +--------+ +-------+ + + + + | Carbon | 25 | mmol/L | | 21-32 | 07/16/16 | 07/16/16 | | | Dioxide | | | | | 1:27pm | 2:12pm | | | Level | | | | | | | | + +--------+ +-------+ + + + + | Anion | 11 | mmol/L | | 6-16 | 17 | 07/16/16 | | | Gap | | | | | 1:27pm | 2:12pm | | + +--------+ +-------+ + + + + | Glucose | 175 | mg/dL | H | 70-99 | 07/16/16 | 07/16/16 | | | Level | | | | | 1:27pm | 2:12pm | | + +--------+ +-------+ + + + + | Blood | 38 | mg/dL | H | 8-24 | 07/16/16 | 07/16/16 | | | Urea | | | | | 1:27pm | 2:12pm | | | Nitrogen | | | | | | | | + +--------+ +-------+ + + + + | Creatini | 1.93 | mg/dL | H | 0.40-1.0 | 07/16/16 | 07/16/16 | | | ne | | | | 0 | 1:27pm | 2:12pm | | + +--------+ +-------+ + + + + | BUN/Crea | 19.7 | % | | 12.0-20. | 07/16/16 | 07/16/16 | | | tinine | | | | 0 | 1:27pm | 2:12pm | | | Ratio | | | | | | | | + +--------+ +-------+ + + + + | Glomerul | 27 | | L | 60- | 07/16/16 | 07/16/16 | Non-Afri | | ar | | | | | 1:27pm | 2:12pm | can | | Filtrati | | | | | | | [place] | | on Rate | | | | | | | GFR | | Calc | | | | | | | CalcFor | | | | | | | | | | | | | | | | | | [place] | | | | | | | [...] + + + + | Calcium | 9.3 | mg/dL | | 8.5-10.1 | 07/16/16 | 07/16/16 | | | Level | | | | | 1:27pm | 2:12pm | | + +--------+ +-------+ + + + + | Total | 8.1 | g/dL | | 6.4-8.2 | 07/16/16 | 07/16/16 | | | Protein | | | | | 1:27pm | 2:12pm | | + +--------+ +-------+ + + + + | Albumin | 4.0 | g/dL | | 3.4-5.0 | 07/16/16 | 07/16/16 | | | | | | | | 1:27pm | 2:12pm | | + +--------+ +-------+ + + + + | Globulin | 4.1 | g/dL | H | 2.2-4.0 | 07/16/16 | 07/16/16 | | | | | | | | 1:27pm | 2:12pm | | + +--------+ +-------+ + + + + | Albumin/ | 1.0 | | | 0.8-1.8 | 07/16/16 | 07/16/16 | | | Globulin | | | | | 1:27pm | 2:12pm | | | Ratio | | | | | | | | + +--------+ +-------+ + + + + | Total | 0.3 | mg/dL | | 0.1-1.0 | 07/16/16 | 07/16/16 | | | Bilirubi | | | | | 1:27pm | 2:12pm | | | n | | | | | | | | + +--------+ +-------+ + + + + | Alkaline | 113 | U/L | | 50-136 | 07/16/16 | 07/16/16 | | | | | | | | 1:27pm | 2:12pm | | | Phosphat | | | | | | | | | ase | | | | | | | | + +--------+ +-------+ + + + + | Aspartat | 46 | U/L | H | 12-37 | 07/16/16 | 07/16/16 | | | e Amino | | | | | 1:27pm | 2:12pm | | | Transf | | | | | | | | | (AST/SGO | | | | | | | | | T) | | | | | | | | + +--------+ +-------+ + + + + | Alanine | 49 | U/L | | 12-78 | 07/16/16 | 07/16/16 | | | Aminotra | | | | | 1:27pm | 2:12pm | | | nsferase | | | [...] + + + + | Departed | [facility] | 07/20/16 | 07/21/16 1:30am | Franck Olvera | | Emergency | [facility] [place] | 10:18pm | | [place] | + + + + + + | Registered | [facility] | 07/19/16 1:59pm | | Rehan Fitzgerald | | Clinical | [facility] | | | MD | + + + + + + | Departed | [facility] | 07/16/16 | 07/16/16 6:34pm | Sarai Stewart | | Emergency | [facility] [place] | 12:44pm | | PA | + + + + + + + + | Encounter Diagnosis | + + | Altered mental status | + +"
--- OUTSIDE RECORDS SUMMARY | ~2019-03-25 | XMS | Clinical Summary ---
Demographics + + + | Address | [address] [place] [address] | | | [place] [address] | + + + | Home Phone | | + + + | Preferred Language | Unknown | + + + | Marital Status | D | + + + | Christianity Affiliation | Unknown | + + + | Race | White | + + + | Ethnic Group | or | + + + Author + + + | Author | [facility] | + + + | Organization | [facility] | + + + | Address | [address] | | | [place], [place] [address] | + + + | Phone | Unavailable | + + + Care Team Providers + +------+ + | Care Harvest Contractor Name | Role | Phone | + [...] tion | | +---------+---------+---------+---------+---------+---------+---------+---------+---------+ | DIABETE | [id number] | | Inactiv | | Ambrose | | Type 2 | | | S | 6 | /08 | e | /08 | Ankur | | diabete | | | MELLITU | (SNOMED | | | | DNP PRODUCTION CREW SUPERVISOR | | s | | | S, TYPE | CT) | | | | | | mellitu | | | II, ON | | | | | | | s | | | | | | | | | | | | | INSULIN | | | | | | | | | +---------+---------+---------+---------+---------+---------+---------+---------+---------+ | DEHYDRA | [id number] | | Resolve | | Ambrose | | Dehydra | | | TION | 6 | /08 | d | /08 | Ankur | | tion | | | | (SNOMED | | | | DNP PRODUCTION CREW SUPERVISOR | | | | | | CT) | | | | | | | | +---------+---------+---------+---------+---------+---------+---------+---------+---------+ | DIZZINE | [id number] | | Inactiv | | Ambrose | | Dizzine | | | SS | 03 | /08 | e | /08 | Ankur | | ss | | | | (SNOMED | | | | DNP PRODUCTION CREW SUPERVISOR | | | | | | CT) | | | | | | | | +---------+---------+---------+---------+---------+---------+---------+---------+---------+ | ANEMIA | [id number] | | Inactiv | | Ambrose | | Anemia | | | | 00 | / | e | /10 | Ankur | | | | | | (SNOMED | | | | DNP PRODUCTION CREW SUPERVISOR | | | | | | CT) | | | | | | | | +---------+---------+---------+---------+---------+---------+---------+---------+---------+ | CONSTIP | [id number] | | Inactiv | | Ambrose | | Constip | | | ATION | 8 | /13 | e | /13 | Ankur | | ation | | | | (SNOMED | | | | DNP PRODUCTION CREW SUPERVISOR | | | | | | CT) | | | | | | | | +---------+---------+---------+---------+---------+---------+---------+---------+---------+ | SYNCOPE | [id number] | | Resolve | | Ambrose | | Syncope | | | | 07 | / | d | /10 | Ankur | | | | | | (SNOMED | | | | DNP PRODUCTION CREW SUPERVISOR | | | | | | CT) | | | | | | | | +---------+---------+---------+---------+---------+---------+---------+---------+---------+ | DYSPHAG | R13.10 | | Resolve | | Ambrose | | Dysphag | | | IA | (ICD-10 | | d | | Ankur | | ia, | | | UNSPECI | -CM) | | | | DNP PRODUCTION CREW SUPERVISOR | | unspeci | | | FIED | | | | | | | fied | | +---------+---------+---------+---------+---------+---------+---------+---------+---------+ | PARESTH | [id number] | | Inactiv | | Ambrose | | Paresth | | | ESIA, | 04 | | e | | Ankur | | esia of | | | HANDS | (SNOMED | | | | DNP PRODUCTION CREW SUPERVISOR | | hand | | | | CT) | | | | | | | | +---------+---------+---------+---------+---------+---------+---------+---------+---------+ | DIABETI | [id number] | | Inactiv | | Ambrose | | Diabeti | | | C | 06 | / | e | / | Ankur | | c | | | PERIPHE | (SNOMED | | | | DNP PRODUCTION CREW SUPERVISOR | | periphe | | | RAL [...] | -CM) | | | | DNP PRODUCTION CREW SUPERVISOR | | unspeci | | | FIED | | | | | | | fied | | +---------+---------+---------+---------+---------+---------+---------+---------+---------+ | VAGINIT | [id number] | | Resolve | | Ambrose | | Vaginit | | | IS | 1 | /31 | d | /31 | Ankur | | is | | | | (SNOMED | | | | DNP PRODUCTION CREW SUPERVISOR | | | | | | CT) | | | | | | | | +---------+---------+---------+---------+---------+---------+---------+---------+---------+ | DYSURIA | [id number] | | Resolve | | Ambrose | | Dysuria | | | | 1 | / | d | | Ankur | | | | | | (SNOMED | | | | DNP PRODUCTION CREW SUPERVISOR | | | | | | CT) | | | | | | | | +---------+---------+---------+---------+---------+---------+---------+---------+---------+ | EDEMA | [id number] | | Inactiv | | Ambrose | | Edema | | | | 08 | | e | | Ankur | | | | | | (SNOMED | | | | DNP PRODUCTION CREW SUPERVISOR | | | | | | CT) | | | | | | | | +---------+---------+---------+---------+---------+---------+---------+---------+---------+ | RENAL | [id number] | | Inactiv | | Ambrose | | Acute | | | FAILURE | 1 | / | e | /02 | Ankur | | renal | | | , ACUTE | (SNOMED | | | | DNP PRODUCTION CREW SUPERVISOR | | failure | | | | CT) | | | | | | | | | | | | | | | | syndrom | | | | | | | | | | e | | +---------+---------+---------+---------+---------+---------+---------+---------+---------+ | DIABETE | [id number] | | Inactiv | | Ambrose | | Periphe | | | S | 02 | / | e | /01 | Ankur | | ral | | | MELLITU | (SNOMED | | | | DNP PRODUCTION CREW SUPERVISOR | | circula | | | S, [...] | -CM) | | | | DNP PRODUCTION CREW SUPERVISOR | | s | | | DIABETI [...] ropathy | | +---------+---------+---------+---------+---------+---------+---------+---------+---------+ | LOCALIZ | [id number] | | Resolve | | Ambrose | | Disorde | | | ED | 09 | /30 | d | /30 | Ankur | | r of | | | SWELLIN | (SNOMED | | | | DNP PRODUCTION CREW SUPERVISOR | | forearm | | | G [...] | | | +---------+---------+---------+---------+---------+---------+---------+---------+---------+ | UTI | [id number] | | Resolve | | Ambrose | | Urinary | | | | 5 | / | d | /13 | Ankur | | tract | | | | (SNOMED | | | | DNP PRODUCTION CREW SUPERVISOR | | infecti | | | | [...] | -CM) | | | | DNP PRODUCTION CREW SUPERVISOR | | s | | | MELLITU [...] athy | | +---------+---------+---------+---------+---------+---------+---------+---------+---------+ | DEMENTI | [id number] | | Inactiv | | Ambrose | | Procedu | | | A | | | | | Ankur | | re | | | SCREENI | (SNOMED | | | | DNP PRODUCTION CREW SUPERVISOR | | carried | | | NG | CT) | | | | | | out on | | | | | | | | | | | | | | | | | | | | subject | | +---------+---------+---------+---------+---------+---------+---------+---------+---------+ | CHANGE | [id number] | | Inactiv | | Ambrose | | Altered | | | IN | | | e | | Ankur | | bowel | | | BOWEL | (SNOMED | | | | DNP PRODUCTION CREW SUPERVISOR | | functio | | | HABITS | CT) | | | | | | n | | +---------+---------+---------+---------+---------+---------+---------+---------+---------+ | MILD | [id number] | | Inactiv | | Ambrose | | Mild | | | COGNITI | 03 | /24 | e | /24 | Ankur | | cogniti | | | VE | (SNOMED | | | | DNP PRODUCTION CREW SUPERVISOR | | ve | | | IMPAIRM | CT) | | | | | | disorde | | | ENT | | | | | | | r | | +---------+---------+---------+---------+---------+---------+---------+---------+---------+ | DIABETE | [id number] | | Inactiv | | Ambrose | | Diabeti | | | S | 298680 | /11 | e | / | Ankur | | c | | | MELLITU | (SNOMED | | | | DNP PRODUCTION CREW SUPERVISOR | | periphe | | | S, [...] fied | | +---------+---------+---------+---------+---------+---------+---------+---------+---------+ | DIABETE | [id number] | | Active | | David W | | Diabeti | | | S | 260545 | /15 | | /15 | Theen [...] s | | +---------+---------+---------+---------+---------+---------+---------+---------+---------+ | MUSCLE | [id number] | | Active | | Christen | | Muscle | | | PAIN | 1 | /07 | | /07 | J. | | pain | | | | (SNOMED | | | | [place] | | | | | | CT) | | | | ta PRODUCTION CREW SUPERVISOR | | | | +---------+---------+---------+---------+---------+---------+---------+---------+---------+ | DIABETE | [id number] | | Removed | | David W | | Diabeti | | | S | 773383 | /11 | | /12 | Theen [...] s | | +---------+---------+---------+---------+---------+---------+---------+---------+---------+ | MILD | [id number] | | Removed | | aMulik | | Mild | | | COGNITI [...] uterus | | +---------+---------+---------+---------+---------+---------+---------+---------+---------+ | COLONIC | 0603038 | | Active | | Emeka | [...] | | | +---------+---------+---------+---------+---------+---------+---------+---------+---------+ | CONSTIP | [id number] | | Removed | | Emeka | | Constip | | | ATION | 8 | /13 | | /13 | Petre | | ation | | | | (SNOMED | | | | MD | | | | | | CT) | | | | | | | | +---------+---------+---------+---------+---------+---------+---------+---------+---------+ | CHANGE | [id number] | | Removed | | Emeka | | Altered | | | IN | 9 | /13 | | /13 | Petre | | bowel | | | BOWEL | (SNOMED | | | | MD | | functio | | | HABITS | CT) | | | | | | n | | +---------+---------+---------+---------+---------+---------+---------+---------+---------+ | DECREAS | [id number] | | Active | | Emeka | | Decreas | | | ED | 6 | /13 | | /13 | Petre | | e in | | | APPETIT | (SNOMED | | | | MD | | appetit | | | E | CT) | | | | | | e | | +---------+---------+---------+---------+---------+---------+---------+---------+---------+ | WEIGHT | 9357949 | | Active | | Emeka | | Abnorma | | | LOSS | 01 | / | | /13 | Petre | | l | | | ABNORMA | (SNOMED | | | | MD | | weight | | | L | CT) | | | | | | loss | | +---------+---------+---------+---------+---------+---------+---------+---------+---------+ | NAUSEA | 2773080 | | Active | | Emeka | | Nausea | | | ALONE | | | | | Petre | | | | | | (SNOMED | | | | MD | | | | | | CT) | | | | | | | | +---------+---------+---------+---------+---------+---------+---------+---------+---------+ | RECTAL | [id number] | | Active | | Emeka | | Rectal | | | BLEEDIN | 2 | /13 | | /13 | Petre | | hemorrh | | | G | (SNOMED | | | | MD | | age | | | | CT) | | | | | | | | +---------+---------+---------+---------+---------+---------+---------+---------+---------+ | DEMENTI | [id number] | | Active | | Christen | | Dementi | | | A | 6 | /10 | | /10 | J. | | a | | | WITHOUT | (SNOMED | | | | [place] | | | | | | CT) | | | | ta PRODUCTION CREW SUPERVISOR | | | | | BEHAVIO | | | | | | | | | | RAL | | | | | | | | | | DISTURB | | | | | | | | | | ANCE | | | | | | | | | +---------+---------+---------+---------+---------+---------+---------+---------+---------+ | CHRONIC | 5964924 | | Active | | Christen | | Chronic | | | | 03 | /10 | | /10 | J. | | | | | PROGRES | (SNOMED | | | | [place] | | progres | | | SIVE | CT) | | | | ta PRODUCTION CREW SUPERVISOR | | sive | | | RENAL | | | | | | | renal | | | FAILURE | | | | | | | failure | | +---------+---------+---------+---------+---------+---------+---------+---------+---------+ | ANEMIA | [id number] | | Removed | | Christen | | Anemia | | | | 00 | /10 | | /10 | J. | | | | | | (SNOMED | | | | [place] | | | | | | CT) | | | | ta PRODUCTION CREW SUPERVISOR | | | | +---------+---------+---------+---------+---------+---------+---------+---------+---------+ | DEMENTI | [id number] | | Removed | | Christen | | Procedu | | | A | 03 | / | | | J. | | re | | | SCREENI | (SNOMED | | | | [place] | | carried | | | NG | CT) | | | | ta PRODUCTION CREW SUPERVISOR | | out on | | | | | | | | | | | | | | | | | | | | subject | | +---------+---------+---------+---------+---------+---------+---------+---------+---------+ | FALL | 6953993 | | Active | | Christen | | At risk | | | RISK | | / | | | J. | | for | | | | (SNOMED | | | | [place] | | falls | | | | CT) | | | | ta PRODUCTION CREW SUPERVISOR | | | | +---------+---------+---------+---------+---------+---------+---------+---------+---------+ | DIABETE | [id number] | | Resolve | | Christen | | Diabeti | | | S | [id number] | /14 | d | / | J. | | c | | | MELLITU | (SNOMED | | | | [place] | | periphe | | | S, TYPE | CT) | | | | ta PRODUCTION CREW SUPERVISOR | | ral | | | II [...] s | | +---------+---------+---------+---------+---------+---------+---------+---------+---------+ | CORNS | [id number] | | Inactiv | | Kali | | Corns | | | AND | 00 | | e | | Palacio | | and | | | CALLOSI | (SNOMED | | | | DPM | | callus | | | TIES | CT) | | | | | | | | +---------+---------+---------+---------+---------+---------+---------+---------+---------+ | ELHAM | 3544738 | | Active | | Kali | [...] | | | +---------+---------+---------+---------+---------+---------+---------+---------+---------+ | HALLUX | 0875719 | | Active | | Kali | [...] ropathy | | +---------+---------+---------+---------+---------+---------+---------+---------+---------+ | DIABETE | 7112552 | | Removed | | Kali | [...] s | | +---------+---------+---------+---------+---------+---------+---------+---------+---------+ | ONYCHOM | 5583262 | | Active | | Kali | | Onychom | | | YCOSIS | | | | | Palacio | | ycosis | | | | (SNOMED | | | | DPM | | | | | | CT) | | | | | | | | +---------+---------+---------+---------+---------+---------+---------+---------+---------+ | HEARTBU | 4072710 | | Active | | Tiesha | | Heartbu | | | RN | 0 | / | | / | | | rn | | | | (SNOMED | | | | Maria Isabel | | | | | | CT) | | | | MD | | | | +---------+---------+---------+---------+---------+---------+---------+---------+---------+ | TYPE 2 | [id number] | | Active | | Tiesha | [...] S | -CM) | | | | [place] | | s | | | MELLITU [...] athy | | +---------+---------+---------+---------+---------+---------+---------+---------+---------+ | UTI | [id number] | | Removed | | Pako | | Urinary | | | | 5 | / | | /13 | Middlek | | tract | | | | (SNOMED | | | | auff | | infecti | | | | CT) | | | | PRODUCTION CREW SUPERVISOR | | ous | | | | | | | | | | disease | | +---------+---------+---------+---------+---------+---------+---------+---------+---------+ | LOCALIZ | 9296500 | | Removed | | D'Elena | [...] | | | +---------+---------+---------+---------+---------+---------+---------+---------+---------+ | LIPOMA | 1226998 | | Active | | Lauranc | | Lipoma | | | | 2 | /14 | | /14 | e W | | (clinic | | | | (SNOMED | | | | Lila | | al) | | | | CT) | | | | MD | | | | +---------+---------+---------+---------+---------+---------+---------+---------+---------+ | VITAMIN | 2133125 | | Active | | David Paez | | Vitamin | | | D | 6 | /14 | | /15 | Theen | | D | | | DEFICIE | (SNOMED | | | | MD FACE | | deficie | | | NCY | CT) | | | | FACP | | ncy | | +---------+---------+---------+---------+---------+---------+---------+---------+---------+ | OBESITY | 9751203 | | Active | | David Paez | | Obesity | | | , BMI | 01 | /14 | | /15 | Theen | | | | | 35-39.9 | (SNOMED | | | | MD FACE | | | | | , ADULT | CT) | | | | FACP | | | | +---------+---------+---------+---------+---------+---------+---------+---------+---------+ | DIABETE | 1349461 | | Removed | | David W | | Diabeti | | | S | 601997 | /14 | | /15 | Theen [...] s | | +---------+---------+---------+---------+---------+---------+---------+---------+---------+ | HALLUX | 7984050 | | Inactiv | | Kali | [...] | | | +---------+---------+---------+---------+---------+---------+---------+---------+---------+ | HAMMER | 5990839 | | Inactiv | | Kali | [...] | | | +---------+---------+---------+---------+---------+---------+---------+---------+---------+ | ONYCHOM | 7076561 | | Inactiv | | Kali | | Onychom | | | YCOSIS | 08 | | e | / | Paalcio | | ycosis | | | | [...] ropathy | | +---------+---------+---------+---------+---------+---------+---------+---------+---------+ | DIABETE | 9245457 | | Inactiv | | Kali | [...] s | | +---------+---------+---------+---------+---------+---------+---------+---------+---------+ | SCREENI | 2414413 | | Resolve | | Lauranc | | Depress | | | NG FOR | | / | d | | e W | | ion | | | DEPRESS | (SNOMED | | | | Lila | | screeni | | | ION | CT) | | | | MD | | ng | | +---------+---------+---------+---------+---------+---------+---------+---------+---------+ | SCREENI | 4176633 | | Resolve | | Lauranc | [...] | | | +---------+---------+---------+---------+---------+---------+---------+---------+---------+ | SCREENI | 9634172 | | Resolve | | Lauranc | [...] ng | | +---------+---------+---------+---------+---------+---------+---------+---------+---------+ | SCREENI | 5979634 | | Removed | | Geetha | [...] ng | | +---------+---------+---------+---------+---------+---------+---------+---------+---------+ | SCREENI | 4933191 | | Removed | | Geetha | | Screeni | | | NG FOR | | / | | /10 | Romulus | | ng for | | | UNSPECI | (SNOMED | | | | [facility] | | disorde | | | FIED | CT) | | | | | | r | | | CONDITI | | | | | | | | | | ON | | | | | | | | | +---------+---------+---------+---------+---------+---------+---------+---------+---------+ | SCREENI | 1668032 | | Removed | | Geetha | | Depress | | | NG FOR | 06 | / | | /10 | Patrick | | ion | | | DEPRESS | (SNOMED | | | | [facility]MA | | screeni | | | ION | CT) | | | | | | ng | | +---------+---------+---------+---------+---------+---------+---------+---------+---------+ | RENAL | 2399614 | | Removed | | Lauranc | [...] e | | +---------+---------+---------+---------+---------+---------+---------+---------+---------+ | EDEMA | 6026319 | | Removed | | Lauranc | | Edema | | | | 08 | /15 | | /11 | e W | | | | | | (SNOMED | | | | Lila | | | | | | CT) | | | | MD | | | | +---------+---------+---------+---------+---------+---------+---------+---------+---------+ | RENAL | 4056066 | | Active | | Luz | [...] e | | +---------+---------+---------+---------+---------+---------+---------+---------+---------+ | PERIPHE | 8318974 | | Active | | Lauranc | [...] disease | | +---------+---------+---------+---------+---------+---------+---------+---------+---------+ | CANDIDI | 5659586 | | Active | | Susanna | | Candidi | | | ASIS, | 6 | / | | / | Medel | | asis of | | | SKIN | (SNOMED | | | | MD | | skin | | | | CT) | | | | | | | | +---------+---------+---------+---------+---------+---------+---------+---------+---------+ | DYSURIA | 9450607 | | Removed | | Erica | | Dysuria | | | | 1 | / | | / | Paul | | | | | | (SNOMED | | | | MA | | | | | | CT) | | | | | | | | +---------+---------+---------+---------+---------+---------+---------+---------+---------+ | VAGINIT | 0134473 | | Removed | | Erica | | Vaginit | | | IS | 1 | /31 | | /31 | Paul | | is | | | | (SNOMED | | | | MA | | | | | | CT) | | | | | | | | +---------+---------+---------+---------+---------+---------+---------+---------+---------+ | RLQ | 3749151 | | Resolve | | Lauranc | | Right | | | PAIN | 02 | | d | /11 | e W | | lower | | | | (SNOMED | | | | Lila | | quadran | | | | CT) | | | | MD | | t pain | | +---------+---------+---------+---------+---------+---------+---------+---------+---------+ | ABDOMIN | 5936076 | | Resolve | | Lauranc | [...] | | | +---------+---------+---------+---------+---------+---------+---------+---------+---------+ | KNEE | 5259841 | | Active | | Lauranc | | Knee | | | PAIN | 3 | /14 | | /14 | e W | | pain | | | | (SNOMED | | | | Lila | | | | | | CT) | | | | MD | | | | +---------+---------+---------+---------+---------+---------+---------+---------+---------+ | Questio | 0407837 | | Correct | | Lauranc | [...] | | | +---------+---------+---------+---------+---------+---------+---------+---------+---------+ | VERTEBR | 6834540 | | Active | | Lauranc | [...] e | | +---------+---------+---------+---------+---------+---------+---------+---------+---------+ | VERTIGO | 4285140 | | Active | | Luz | | Vertigo | | | | | / | | / | Asad | | | | | | (SNOMED | | | | RN | | | | | | CT) | | | | | | | | +---------+---------+---------+---------+---------+---------+---------+---------+---------+ | CHEST | 7212152 | | Inactiv | | Genny | | Chest | | | PAIN | 9 | | e | /02 | Kaufman | | pain | | | | (SNOMED | | | | | | | | | | CT) | | | | | | | | +---------+---------+---------+---------+---------+---------+---------+---------+---------+ | CHEST | 6312032 | | Inactiv | | Lauranc | [...] fied | | +---------+---------+---------+---------+---------+---------+---------+---------+---------+ | CEREBRO | 6378487 | | Active | | Rogers | | 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 | | | R | (SNOMED | | | | MD | | r | | | DISEASE | CT) | | | | | | disease | | +---------+---------+---------+---------+---------+---------+---------+---------+---------+ | History | 1611534 | | Active | | Rogers | [...] | | | +---------+---------+---------+---------+---------+---------+---------+---------+---------+ | DIABETI | 3451666 | | Removed | | Rogers | [...] thy | | +---------+---------+---------+---------+---------+---------+---------+---------+---------+ | HYPERLI | 3088497 | | Active | | Rogers | | Hyperli | | | PIDEMIA | 4 | /30 | | /30 | Laith | | pidemia | | | | (SNOMED | | | | MD | | | | | | CT) | | | | | | | | +---------+---------+---------+---------+---------+---------+---------+---------+---------+ | History | 2312527 | | Active | | Rogers | [...] e | | +---------+---------+---------+---------+---------+---------+---------+---------+---------+ | CEREBRA | 4563387 | | Correct | | Rogers | [...] s | | +---------+---------+---------+---------+---------+---------+---------+---------+---------+ | ABDOMIN | 9756979 | | Removed | | Patricia | [...] | | | +---------+---------+---------+---------+---------+---------+---------+---------+---------+ | RLQ | 2599857 | | Removed | | Patricia | [...] fied | | +---------+---------+---------+---------+---------+---------+---------+---------+---------+ | CARPAL | 9847233 | | Active | | Rogers | | Carpal | | | 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 | /25 | | /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 | | | | MD | | 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, LEFT | CT) | | | | | | e | | +---------+---------+---------+---------+---------+---------+---------+---------+---------+ | Questio | 5588255 | | Removed | | Rogers | [...] | | | +---------+---------+---------+---------+---------+---------+---------+---------+---------+ | GAIT | 9476180 | | Active | | Rogers | [...] e | | +---------+---------+---------+---------+---------+---------+---------+---------+---------+ | PARESTH | 7058011 | | Removed | | Rogers | | Paresth | | | ESIA, | | | | | Laith | | esia of | | | HANDS | (SNOMED | | | | MD | | hand | | | | CT) | | | | | | | | +---------+---------+---------+---------+---------+---------+---------+---------+---------+ | PERIPHE | 2937629 | | Correct | | Rogers | | Periphe | | | RAL | | | ion | / | Laith | | ral | | | NEUROPA | (SNOMED | | | | MD | | nerve | | | THY | CT) | | | | | | disease | | +---------+---------+---------+---------+---------+---------+---------+---------+---------+ | THYROID | [id number] | | Active | | Luz | | Thyroid | | | NODULE | 05 | /20 | | /20 | [place] | | nodule | | | | (SNOMED | | | | [facility] | | | | | | CT) | | | | | | | | +---------+---------+---------+---------+---------+---------+---------+---------+---------+ | TIA | 9662015 | | Active | | Lauranc | [...] a | | +---------+---------+---------+---------+---------+---------+---------+---------+---------+ | SYNCOPE | 6448976 | | Removed | | Lauranc | | Syncope | | | | 07 | /07 | | /10 | e W | | | | | | (SNOMED | | | | Lila | | | | | | CT) | | | | MD | | | | +---------+---------+---------+---------+---------+---------+---------+---------+---------+ | GASTROP | 7433039 | | Active | | Lauranc | | 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 | | | | (SNOMED | | | | Lila | | syndrom | | | | CT) | | | | MD | | e | | +---------+---------+---------+---------+---------+---------+---------+---------+---------+ | CONSTIP | 5436772 | | Active | | Lauranc | | Chronic | | | ATION, | 09 | /08 | | /08 | e W | | | | | CHRONIC | (SNOMED | | | | Lila | | constip | | | | CT) | | | | MD | | ation | | +---------+---------+---------+---------+---------+---------+---------+---------+---------+ | POSTHER | [id number] | | Active | | Lauranc | | Posther | | | 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 | (SNOMED | | | | Lila | | neuralg | | | IA | CT) | | | | MD | | ia | | +---------+---------+---------+---------+---------+---------+---------+---------+---------+ | DIZZINE | 8467329 | | Removed | | Lauranc | | Dizzine | | | SS | 03 | /08 | | /08 | e W | | ss | | | | (SNOMED | | | | Lila | | | | | | CT) | | | | MD | | | | +---------+---------+---------+---------+---------+---------+---------+---------+---------+ | DEHYDRA | [id number] | | Removed | | Lauranc | | Dehydra | | | TION | 6 | /08 | | /08 | e W | | tion | | | | (SNOMED | | | | Lila | | | | | | CT) | | | | MD | | | | +---------+---------+---------+---------+---------+---------+---------+---------+---------+ | DIABETE | 7253005 | | Removed | | Lauranc | [...] | | | +---------+---------+---------+---------+---------+---------+---------+---------+---------+ | HYPERTE | [id number] | | Active | | Lauranc | [...] tab one | | | DULOXETINE | 3748914232 | Laurance W | | HCL 30 MG | time per | | | HCL | 6 | Lila MD | | CPEP | day | | | | | | + + + + + + + + | PROCHLORPE | Insert one | | | PROCHLORPE | [id number] | Edna | | RAZINE 25 | [...] take 1-2 | | | DIMENHYDRI | 9739860361 | Christen Ramirez | | 50 MG TABS | tabs 4 | | | MARCELA | 2 | Raumakita | | | times per | | | | | PRODUCTION CREW SUPERVISOR | | | day as | | | | | | | | needed | | | | | | + + + + + + + + | VICTOZA 18 | | | | LIRAGLUTID | 7156695048 | Jesus | | MG/3ML | | | | E | 2 | Ethan MD | | SOPN | | | | | | | + + + + + + + + | BASAGLAR | 1 pen | | | INSULIN | 3182392491 | Christen Ramirez | | KWIKPEN | every 3 | | | GLARGINE | 9 | Raum[place]ita | | 100 | days 56 | | | | | PRODUCTION CREW SUPERVISOR | | UNIT/ML | units q | [...] by mouth | | | MECLIZINE | 7332863011 | Bailey W | | HCL 25 [...] mix and | | | NA | [id number] | Maulik | | BOWEL PREP | [...] take 2 | | | GABAPENTIN | 7337110679 | Bailey W | | 300 MG [...] Inject 0.6 | | | LIRAGLUTID | [id number] | Christen Ramirez | | MG/3ML | mg daily | | | E | 2 | Raum[place]ita | | SOPN | | | | | | PRODUCTION CREW SUPERVISOR | + + + + + + + + | ONDANSETRO | 1 tab | | | ONDANSETRO | 6848518843 | Kali | | N HCL 4 MG | every 4 | | | N HCL | 3 | Palacio DPM | | TABS | hours | | | | | | + + + + + + + + | VICTOZA 18 | | | | LIRAGLUTID | 8426772749 | Bailey W | | MG/3ML | [...] 1 tab | | | GABAPENTIN | 4876161497 | Jesus | | 300 MG | po tid . | | | | 4 | Ethan MD | | CAPS | Pt states | | | | | | | | as needed | | | | | | + + + + + + + + | COLACE 100 | 1 tab by | | | DOCUSATE | [id number] | Kali | | MG CAPS | mouth | | | SODIUM | 0 | Palacio DPM | | | daily at | | | | | | | | bedtime | | | | | | + + + + + + + + | CLONAZEPAM | Take one | | | CLONAZEPAM | 8802718428 | Edna | | 0.5 MG | [...] take 1 | | | ASPIRIN | 0939044992 | Rogers | | 325 MG | [...] 1 tab | | | PREGABALIN | 6533488350 | Bailey W | | MG CAPS | three | | | | 8 | Lila LUIS | | | times per | | | | | | | | day | | | | | | + + + + + + + + | GLUCOPHAGE | 1 tab one | | | METFORMIN | 9804764940 | Bailey W | | XR 500 MG | time per | | | HCL | 3 | Lila MD | | [id number] | day | | | | | | + + + + + + + + | HUMALOG | BS <150 - | | | INSULIN | 5233906263 | Christen Ramirez | | 100 | No insulin | | | LISPRO | 1 | [place]ita | | UNIT/ML | BS | | | (HUMAN) | | PRODUCTION CREW SUPERVISOR | | SOLN | 150-200 | | [...] 50 units | | | INSULIN | 6647457254 | Pako | | UNIT/ML | once per | | | GLARGINE | 3 | Middlekauf | | SOLN | day. Pt | | | | | f PRODUCTION CREW SUPERVISOR | | | states she | | | | | | | | is taking | | | | | | | | 56 units | | | | | | | | every AM | | | | | | + + + + + + + + | NITROFURAN | Take one | | | NITROFURAN | 6150395585 | Edna | | TOIN | capsule [...] | One | | | ERGOCALCIF | 4490688300 | Mariano | | QUANG 89694 | capsule by | | | QUANG [...] take 2 | | | GABAPENTIN | 4836003081 | Mariano | | 300 MG | [...] 10ml QAM | | | METFORMIN | 7928633073 | Mraiano | | MG/5ML | Liquid due | | | HCL | 1 | Ariella | | SOLN | to | | | | | CCMA | | | Dysphagia | | | | | | + + + + + + + + | ASPIRIN EC | take 1 | | | ASPIRIN | 9593265367 | Rogers | | 325 MG | tablet | | | | 1 | Laith MD | | TBEC | daily | | | | | | + + + + + + + + | RELION | Use to | | | GLUCOSE | 5705850934 | Kali | | BLOOD | test BG | | | BLOOD | 4 | Palacio DPM | | GLUCOSE | one time | | | | | | | TEST STRP | per day | | | | | | + + + + + + + + | NITROFURAN | | | | NITROFURAN | 4915157705 | Edna | | TOIN | | [...] one tablet | | | DOCUSATE | 5722691369 | Franciscoance W | | MG CAPS | by mouth | | | SODIUM | 0 | Lila MD | | | at bedtime | | | | | | + + + + + + + + | BACTRIM DS | 1 by mouth | | | TRIMETHOPR | 0709700933 | Franciscoance W | | 800-160 | twice a | | | IM-SULFAME | 1 | Lila MD | | MG TABS | day for 3 | | | THOXAZOLE | | | | | days | | | | | | + + + + + + + + | VICTOZA 18 | .6 mg x 1 | | | LIRAGLUTID | 9894868354 | Ambrose | | MG/3ML | week then | | | E | 2 | Ankur DNP | | SOPN | 1.2 mg | | | | | PRODUCTION CREW SUPERVISOR | | | daily per | | | | | | | | week | | | | | | + + + + + + + + | ASPIRIN 81 | one time | | | ASPIRIN | 3651071278 | Mariano | | MG TABS | per day | | | | 5 | Ariella | | | | | | | | CCMA | + + + + + + + + | GABAPENTIN | two times | | | GABAPENTIN | 5529936969 | Mariano | | 100 MG | per day | | | | 1 | Ariella | | CAPS | | | | | | CCMA | + + + + + + + + | BIOTIN 1 | | | | BIOTIN | 4180385330 | Kali | | MG CAPS | | | | | 2 | Palacio DPM | + + + + + + + + | PIOGLITAZO | Take 1 tab | | | PIOGLITAZO | 6217873231 | Jesus | | NE HCL 15 [...] two times | | | MECLIZINE | 2737902692 | Mariano | | HCL 25 MG [...] take 1 | | | ASPIRIN | 7195084885 | Mariano | | 325 MG | tablet | | | | 1 | Ariella | | TBEC | daily | | | | | CCMA | + + + + + + + + | PIOGLITAZO | Take 1 tab | | | PIOGLITAZO | 1397973529 | Christen Ramirez | | NE HCL 15 | by mouth | | | NE HCL | 6 | [place]ita | | MG TABS | one time | | | | | PRODUCTION CREW SUPERVISOR | | | per day in | | | | | | | | the AM | | | | | | + + + + + + + + | NEURONTIN | take 1 tab | | | GABAPENTIN | 5523993438 | Bailey W | | 300 MG | po tid | | | | 4 | Lila MD | | CAPS | | | | | | | + + + + + + + + | DIOVAN 160 | one time | | | VALSARTAN | 7970264506 | Mariano | | MG TABS | per day | | | | 4 | Arilela | | | | | | | | CCMA | + + + + + + + + | ASPIRIN | take 1 | | | ASPIRIN | 1781060709 | Bailey W | | 325 MG [...] Take one | | | POTASSIUM | 3413813551 | Jessu | | CHLORIDE | cap daily | | | CHLORIDE | 1 | Ethan LUIS | | ER 10 MEQ | in the AM | | | | | | | CR-CAPS | | | | | | | + + + + + + + + | KEFLEX 500 | 1 pill | | | CEPHALEXIN | 3558764621 | Tiesha | | MG CAPS | twice a | | | | 1 | Maria Isabel LUIS | | | day for 7 | | | | | | | | days | | | | | | + + + + + + + + | GABAPENTIN | one tablet | | | GABAPENTIN | 3935315177 | Laurance W | | 100 MG [...] 1 tab | | | MECLIZINE | 1315210856 | Laurance W | | HCL 25 MG | three | | | HCL | 0 | Lila MD | | TABS | times per | | | | | | | | day | | | | | | + + + + + + + + | NITROFURAN | Take one | | | NITROFURAN | 0500814659 | Edna | | TOIN | capsule [...] 0.02 ml | | | EXENATIDE | 4038341713 | Bailey W | | MCG PEN 5 | injection | | | | 1 | Lila MD | | MCG/0.02ML | two times | | | | | | | SOPN | per day | | | | | | + + + + + + + + | FLUCONAZOL | take one | | | FLUCONAZOL | 6062351940 | Bailey W | | E 150 MG | tablet PO | | | E | 1 | Lila MD | | TABS | x 1 repeat | | | | | | | | in 3 days | | | | | | + + + + + + + + | PROCHLORPE | Insert one | | | PROCHLORPE | 3243868759 | Ambrose | | RAZINE 25 | | | | RAZINE | 0 | Ankur DNP | | MG SUPP | suppositor | | | | | PRODUCTION CREW SUPERVISOR | | | y rectally | | [...] tab two | | | CILOSTAZOL | 9488824185 | Kali | | 100 MG | times per | | | | 1 | Hakeem DPM | | TABS | day | | | | | | + + + + + + + + | RIOMET 500 | 10ml's two | | | METFORMIN | 8885093175 | Bailey W | | MG/5ML | [...] D | | | | CHOLECALCI | 1665519584 | Kali | | 1000 UNIT | | | | FEROL | 1 | Hakeem DPM | | TABS | | | | | | | + + + + + + + + | NEURONTIN | take 1 tab | | | GABAPENTIN | 9470440571 | Christen Ramirez | | 300 MG | po tid . | | | | 4 | Raum[place]ita | | CAPS | Pt states | | | | | PRODUCTION CREW SUPERVISOR | | | as needed | | | | | | + + + + + + + + | PANTOPRAZO | Take one | | | PANTOPRAZO | 3202777382 | Edna | | LE SODIUM | tablet by | | | LE SODIUM | 1 | Hope CCMA | | 40 MG TBEC | mouth once | | | | | | | | daily | | | | | | + + + + + + + + | BYETTA 5 | Take as | | | EXENATIDE | 1705425027 | Christen Ramirez | | MCG PEN 5 | directed | | | | 1 | Raum[place]ita | | MCG/0.02ML | once daily | | | | | PRODUCTION CREW SUPERVISOR | | SOPN | in the AM [...] two times | | | METFORMIN | 8295707050 | Mariano | | HCL 1000 | per day | | | HCL | 5 | Ariella | | MG TABS | | | | | | CCMA | + + + + + + + + | GABAPENTIN | Take 2 | | | GABAPENTIN | 2517218411 | Bailey W | | 300 MG [...] TAKE ONE | | | PREGABALIN | 7835831866 | Kesha | | MG CAPS | [...] 1 TAB | | | BUSPIRONE | 3390511130 | Kali | | HCL 7.5 MG | three | | | HCL | 1 | Palacio DPM | | TABS | times per | | | | | | | | day | | | | | | + + + + + + + + | LANTUS 100 | 25 units | | | INSULIN | 7538503018 | Jesus | | UNIT/ML | two [...] two times | | | MECLIZINE | 7355697132 | Laurance W | | HCL 25 MG | per day | | | HCL | 0 | Lila MD | | TABS | | | | | | | + + + + + + + + | MECLIZINE | One tab by | | | MECLIZINE | 4529032116 | Laurance W | | HCL 25 [...] Take one | | | PROMETHAZI | 7339293990 | Edna | | NE HCL 25 [...] 3U before | | | INSULIN | 9334703128 | Scarlett | | 100 | lunch [...] Take one | | | CHOLECALCI | 7879468525 | Jesus | | 1000 UNIT | tablet | | | FEROL | 1 | Ethan MD | | TABS | daily in | | | | | | | | the AM | | | | | | + + + + + + + + | POTASSIUM | | | | POTASSIUM | 0847004081 | Kali | | CHLORIDE | | | | CHLORIDE | 1 | Hakeem DPM | | ER 10 MEQ | | | | | | | | CR-CAPS | | | | | | | + + + + + + + + | COLACE 100 | 1 pill BID | | | DOCUSATE | 1448974162 | Ambrose | | MG CAPS | | | | SODIUM | 0 | Ankur DNP | | | | | | | | PRODUCTION CREW SUPERVISOR | + + + + + + + + | BIOTIN 1 | Take one | | | BIOTIN | 8665028652 | Ambrose | | MG CAPS | daily in | | | | 2 | Ankur DNP | | | the AM | | | | | PRODUCTION CREW SUPERVISOR | + + + + + + + + | NYSTATIN-T | Apply thin | | | NYSTATIN-T | 2695282835 | Ambrose | | RIAMCINOLO | layer to | | | RIAMCINOLO | 5 | Ankur DNP | | NE | affected | | | NE | | PRODUCTION CREW SUPERVISOR | | 817417-9.1 | area BID | | | | | | | UNIT/GM-% | prn for | | | | | | | CREA | itching | | | | | | + + + + + + + + | LASIX 80 | 1 tab by | | | FUROSEMIDE | 4353362756 | Ambrose | | MG TABS | mouth one | | | | 5 | Ankur DNP | | | time per | | | | | PRODUCTION CREW SUPERVISOR | | | day in the | | | | | | | | AM | | | | | | + + + + + + + + | BD INSULIN | Use 5 | | | INSULIN | 1709931657 | David | | SYRINGE | times [...] Take one | | | VALSARTAN | 1557543496 | Fela | | 160 MG | tablet | | | | 8 | Rl MARKS | | TABS | daily in | | | | | | | | the AM | | | | | | + + + + + + + + | RELION PEN | | | | INSULIN | 9018563825 | David | | NEEDLES | | | | PEN NEEDLE | 4 | Rayyne DO | | 31G X 8 MM | | | | | | | + + + + + + + + | MECLIZINE | One tab by | | | MECLIZINE | 8791650556 | David | | HCL 25 MG [...] 3U before | | | INSULIN | 0815554210 | David | | 100 | lunch [...] 56 Units | | | INSULIN | 0487161234 | David | | KWIKPEN | every [...] tab by | | | CLOPIDOGRE | 9219064415 | Christen Ramirez | | MG TABS | mouth one | | | L | 1 | Raumakita | | | time per | | | BISULFATE | | PRODUCTION CREW SUPERVISOR | | | day in the | | | | | | | | evening | | | | | | + + + + + + + + | LYRICA 100 | 1 tab | | | PREGABALIN | 9730992422 | Christen J. | | MG CAPS | three | | | | 8 | Raum[place]ita | | | times per | | | | | PRODUCTION CREW SUPERVISOR | | | day. Pt | | | | | | | | states as | | | | | | | | needed | | | | | | + + + + + + + + | LYRICA 100 | 1 tid | | | PREGABALIN | 3277897292 | Christen J. | | MG CAPS | | | | | 8 | Raum[place]ita | | | | | | | | PRODUCTION CREW SUPERVISOR | + + + + + + + + | VICTOZA 18 | .6 mg x 1 | | | LIRAGLUTID | 3574688789 | Christen J. | | MG/3ML | week then | | | E | 2 | Raumakita | | SOPN | 1.2 mg | | | | | PRODUCTION CREW SUPERVISOR | | | daily per | | | | | | | | week | | | | | | + + + + + + + + | OMEPRAZOLE | Take one | | | OMEPRAZOLE | 2762242552 | Christen Ramirez | | 40 MG | by mouth | | | | 0 | Raum[place]ita | | CPDR | one time | | | | | PRODUCTION CREW SUPERVISOR | | | per day | | [...] Take 1 | | | GLIPIZIDE | 7929856595 | Christen Ramirez | | XL 2.5 MG | tablet | | | | 1 | Raumakita | | [id number] | p.o. | | | | | PRODUCTION CREW SUPERVISOR | | | q.a.m. | | | | | | + + + + + + + + | HUMALOG | 3U before | | | INSULIN | 9608594450 | Christen J. | | 100 | lunch and | | | LISPRO | 1 | Raumakita | | UNIT/ML | 5U before | | | | | PRODUCTION CREW SUPERVISOR | | SOLN | Dinner | | [...] Inject 0.6 | | | LIRAGLUTID | 6919431210 | Christen J. | | MG/3ML | mg daily | | | E | 2 | Raumakita | | SOPN | | | | | | PRODUCTION CREW SUPERVISOR | + + + + + + + + | LIPITOR 20 | take 1 | | | ATORVASTAT | 7739315399 | Christen Ramirez | | MG TABS | tablet by | | | IN CALCIUM | 3 | Raumakita | | | mouth | | | | | PRODUCTION CREW SUPERVISOR | | | daily in | | | | | | | | the | | | | | | | | evening | | | | | | + + + + + + + + | BASAGLAR | 56 Units | | | INSULIN | 6149794185 | Christen Ramirez | | KWIKPEN | by mouth | | | GLARGINE | 9 | Raumakita | | 100 | every | | | | | PRODUCTION CREW SUPERVISOR | | UNIT/ML | morning | | | | | | | SOPN | | | | | | | + + + + + + + + | VICTOZA 18 | 5 unit AM | | | LIRAGLUTID | 1587091893 | Christen Ramirez | | MG/3ML | and 5 | | | E | 2 | Raumakita | | SOPN | units PM | | | | | PRODUCTION CREW SUPERVISOR | + + + + + + + + | BASAGLAR | 1 pen | | | INSULIN | 6538578815 | Christen Ramirez | | KWIKPEN | every 3 | | | GLARGINE | 9 | Raumakita | | 100 | days 56 | | | | | PRODUCTION CREW SUPERVISOR | | UNIT/ML | units q | | | | | | | SOPN | Day | | | | | | + + + + + + + + | BYETTA 5 | Take as | | | EXENATIDE | 2892419089 | Christen Ramirez | | MCG PEN 5 | directed | | | | 1 | Raumakita | | MCG/0.02ML | once daily | | | | | PRODUCTION CREW SUPERVISOR | | SOPN | in the AM | | | | | | + + + + + + + + | LANTUS 100 | 56 units | | | INSULIN | 4290611038 Thien Mccracken | | UNIT/ML | qAM | | | GLARGINE | 3 | Mora DO | | SOLN | | | | | | | + + + + + + + + | SUPREP | mix and | | | NA | 9175758622 | Emeka | | BOWEL PREP | [...] <150 - | | | INSULIN | 9873095950 | Tiesha | | 100 | No insulin | | | LISPRO | 1 | [place] MD | | UNIT/ML | BS | [...] Use daily | | | INSULIN | 3592792076 | Tiesha | | NEEDLE | to [...] Use daily | | | GLUCOSE | 9454806125 | Tiesha | | BLOOD | to check | | | BLOOD | 4 | Maria Isabel MD | | GLUCOSE | blood | | | | | | | TEST STRP | sugar | | | | | | + + + + + + + + | DIABETIC | 1 pair per | | | FOOT CARE | 8645524483 | Tiesha | | INSOLES | custom | | | PRODUCTS | 1 | [place] MD | | | fit from | [...] custom | | | ORTHOTIC | | [place] MD | | SHOES | fit from | | | SHOES | | | | | podiatry | | | | | | | | E11.65, | | | | | | | | e11.21 | | | | | | + + + + + + + + | KEFLEX 500 | 1 pill | | | CEPHALEXIN | 7730912743 | Pako | | MG CAPS | twice a | | | | 1 | Middlekauf | | | day for 7 | | | | | f PRODUCTION CREW SUPERVISOR | | | days | | | | | | + + + + + + + + | BYETTA 5 | 0.02 ml | | | EXENATIDE | 5211311280 | Bailey W | | MCG PEN 5 | injection | | | | 1 | Lila MD | | MCG/0.02ML | two times | | | | | | | SOPN | per day | | | | | | + + + + + + + + | LYRICA 100 | 1 tab | | | PREGABALIN | 7203009790 | Laurance W | | MG CAPS | three | | | | 8 | Lila MD | | | times per | | | | | | | | day | | | | | | + + + + + + + + | DRAMAMINE | take 1-2 | | | DIMENHYDRI | 7051276653 | Laurance W | | 50 MG [...] Use 5 | | | INSULIN | 1568246066 | Laurance W | | SYRINGE | [...] tab by | | | CLOPIDOGRE | 1856841526 | Laurance W | | MG TABS | mouth one | | | L | 1 | Lila MD | | | time per | | | BISULFATE | | | | | day | | | | | | + + + + + + + + | LANTUS 100 | 25 units | | | INSULIN | 5749703554 | Laurance W | | UNIT/ML | two times | | | GLARGINE | 3 | Lila MD | | SOLN | per day | | | | | | + + + + + + + + | LASIX 80 | 1 tab by | | | FUROSEMIDE | 8820554290 | Laurance W | | MG TABS | mouth one | | | | 5 | Lila MD | | | time per | | | | | | | | day | | | | | | + + + + + + + + | FUROSEMIDE | 1 tab one | | | FUROSEMIDE | 5548463203 | Laurance W | | 40 MG | time per | | | | 5 | Lila MD | | TABS | day | | | | | | + + + + + + + + | BUSPIRONE | 1 TAB | | | BUSPIRONE | 3793603900 | Laurance W | | HCL 7.5 MG | three | | | HCL | 1 | Lila MD | | TABS | times per | | | | | | | | day | | | | | | + + + + + + + + | COLACE 100 | 1 tab by | | | DOCUSATE | 6953552049 | Laurance W | | MG CAPS | mouth | | | SODIUM | 0 | Lila MD | | | daily at | | | | | | | | bedtime | | | | | | + + + + + + + + | BACTRIM DS | 1 by mouth | | | TRIMETHOPR | 7757514466 | Laurance W | | 800-160 | twice a | | | IM-SULFAME | 1 | Lila MD | | MG TABS | day for 3 | | | THOXAZOLE | | | | | days | | | | | | + + + + + + + + | LYRICA 50 | Take 1 tab | | | PREGABALIN | 9104313989 | Laurance W | | MG CAPS [...] tab one | | | METFORMIN | 1410325554 | Laurance W | | XR 500 MG | time per | | | HCL | 3 | Lila MD | | [id number] | day | | | | | | + + + + + + + + | CILOSTAZOL | 1 tab two | | | CILOSTAZOL | 7234758453 | Laurance W | | 100 MG | times per | | | | 1 | Lila MD | | TABS | day | | | | | | + + + + + + + + | OMEPRAZOLE | Take one | | | OMEPRAZOLE | 1563820592 | Laurance W | | 40 MG [...] take 1 | | | ATORVASTAT | 0940002108 | Laurance W | | MG TABS | tablet by | | | IN CALCIUM | 3 | Lila MD | | | mouth | | | | | | | | daily | | | | | | + + + + + + + + | MECLIZINE | 1 tab | | | MECLIZINE | 0333843744 | Laurance W | | HCL 25 MG | three | | | HCL | 0 | Lila MD | | TABS | times per | | | | | | | | day | | | | | | + + + + + + + + | LANTUS 100 | 56 units | | | INSULIN | 8528401098 | Laurance W | | UNIT/ML | in the | | | GLARGINE | 3 | Lila MD | | SOLN | morning | | | | | | + + + + + + + + | ONDANSETRO | 1 tab | | | ONDANSETRO | 5376177842 | Laurance W | | N HCL 4 MG | every 4 | | | N HCL | 3 | Lila MD | | TABS | hours | | | | | | + + + + + + + + | PIOGLITAZO | Take 1 tab | | | PIOGLITAZO | 1046242684 | Bailey W | | NE HCL 15 | by mouth | | | NE HCL | 6 | Illa MD | | MG TABS | one time | | | | | | | | per day | | | | | | + + + + + + + + | RELION | Use to | | | GLUCOSE | 0639533603 | Bailey W | | BLOOD | test BG | | | BLOOD | 4 | Lila MD | | GLUCOSE | one time | | | | | | | TEST STRP | per day | | | | | | + + + + + + + + | GABAPENTIN | Take 2 | | | GABAPENTIN | 6477186191 | Bailey W | | 300 MG [...] TAB one | | | VALSARTAN | 1203143799 | Laurance W | | 160 MG | time per | | | | 8 | Lila MD | | TABS | day | | | | | | + + + + + + + + | LYRICA 50 | TAKE ONE | | | PREGABALIN | 8266670469 | Laurance W | | MG CAPS [...] 0.2 ml | | | EXENATIDE | 4285846496 | Laurance W | | MCG PEN 5 | injection | | | | 1 | Lila MD | | MCG/0.02ML | two times | | | | | | | SOPN | per day | | | | | | + + + + + + + + | VICTOZA 18 | 1.2 mg | | | LIRAGLUTID | 7187755360 | Laurance W | | MG/3ML | injected | | | E | 2 | Lila MD | | SOPN | martin | | | | | | + + + + + + + + | KEFLEX 500 | one po TID | | | CEPHALEXIN | 6350235257 | Susanna | | MG CAPS | | | | | 1 | Gianfranco LUIS | + + + + + + + + | FLUCONAZOL | take one | | | FLUCONAZOL | 0150970188 | Susanna | | E 150 MG | tablet PO | | | E | 1 | Gianfranco LUIS | | TABS | x 1 repeat | | | | | | | | in 3 days | | | | | | + + + + + + + + | LYRICA 50 | 1 tab | | | PREGABALIN | 4855988112 | Laurance W | | MG CAPS | three | | | | 8 | Lila MD | | | times per | | | | | | | | day | | | | | | + + + + + + + + | GABAPENTIN | Take 2 | | | GABAPENTIN | 9754430147 | Laurance W | | 300 MG [...] tab one | | | DULOXETINE | 7752054508 | Laurance W | | HCL 30 MG | time per | | | HCL | 6 | Lila MD | | CPEP | day | | | | | | + + + + + + + + | RIOMET 500 | 10ml's two | | | METFORMIN | 0348951419 | Laurance W | | MG/5ML | [...] TAB one | | | VALSARTAN | 5608435887 | Laurance W | | MG TABS | time per | | | | 4 | Lila MD | | | day | | | | | | + + + + + + + + | MECLIZINE | One tab by | | | MECLIZINE | 5337505628 | Laurance W | | HCL 25 [...] take 2 | | | GABAPENTIN | 4665388803 | Bailey W | | 300 MG [...] tab one | | | VALSARTAN | 4932890529 | Bailey W | | MG TABS | time per | | | | 4 | Lila MD | | | day | | | | | | + + + + + + + + | VICTOZA 18 | 0.6 mg | | | LIRAGLUTID | 2825457452 | Bailey W | | MG/3ML | [...] tab one | | | SITAGLIPTI | 1262377527 | Laurance W | | 100 MG | time per | | | N | 2 | Lila MD | | TABS | day | | | PHOSPHATE | | | + + + + + + + + | GABAPENTIN | 2 tabs two | | | GABAPENTIN | 5532773420 | Laurance W | | 300 MG | times per | | | | 5 | Lila MD | | CAPS | day | | | | | | + + + + + + + + | DIOVAN 160 | 1 by mouth | | | VALSARTAN | 6502188008 | Laurance W | | MG TABS | every day | | | | 4 | Lila MD | + + + + + + + + | GABAPENTIN | 1 tab at | | | GABAPENTIN | [id number] | Laurance W | | 100 MG [...] 28 units | | | INSULIN | [id number] | Bailey W | | UNIT/ML | two times | | | GLARGINE | 3 | Lila MD | | SOLN | per day | | | | | | + + + + + + + + | LISINOPRIL | take 1 | | | LISINOPRIL | [id number] | Rogers | | 20 MG | tablet by | | | | 1 | Laith LUIS | | TABS | mouth | | | | | | | | daily | | | | | | + + + + + + + + | LANTUS 100 | 56 units | | | INSULIN | [id number] | Laurance W | | UNIT/ML | daily | | | GLARGINE | 3 | Lila MD | | SOLN | | | | | | | + + + + + + + + | GABAPENTIN | 1 by mouth | | | GABAPENTIN | [id number] | Laurance W | | 100 MG [...] | One | | | ERGOCALCIF | [id number] | Laurance W | | QUANG 08737 | capsule by | | | QUANG [...] by mouth | | | LISINOPRIL | 3845304596 | Laurance W | | 5 MG TABS | one time | | | | 1 | Lila MD | | | per day | | | | | | + + + + + + + + | RIOMET 500 | 10ml QAM | | | METFORMIN | 4730772354 | Laurance W | | MG/5ML | Liquid due | | | HCL | 1 | Lila MD | | SOLN | to | | | | | | | | Dysphagia | | | | | | + + + + + + + + | COLACE 100 | one tablet | | | DOCUSATE | [id number] | Laurance W | | MG CAPS | by mouth | | | SODIUM | 0 | Lila MD | | | at bedtime | | | | | | + + + + + + + + | MECLIZINE | 1 by mouth | | | MECLIZINE | 9856249696 | Laurance W | | HCL 25 [...] one tablet | | | METFORMIN | 2887928119 | Laurance W | | HCL 1000 | by mouth | | | HCL | 5 | Lila MD | | MG TABS | twice a | | | | | | | | day | | | | | | + + + + + + + + | ASPIRIN 81 | 1 by mouth | | | ASPIRIN | 9934783191 | Laurance W | | MG TABS | every day | | | | 5 | Lila MD | + + + + + + + + | GABAPENTIN | one tablet | | | GABAPENTIN | 0567786453 | Bailey W | | 100 MG [...] | | | | | | | [employer] | + + + + + + [...] +------+------+-------+------+-------+------+ + + + | Office Visit: Transfer [...] +--------+ +---+---+---+ + | | [facility] | [id number] | | | B | e-scripts | [...] | | | | | | | [address] | | | | | | | | t - | | | | | | | | [place]*` | | | | | | | | [id number] | | | | | | | | `[id number] | | | | | | | [...] +--------+ +---+---+---+ + | | [facility] | [id number] | | | B | e-scripts | [...] | | | | | | | `0`01/18/2 | | | | | | | | 017`01/18/ | | | | | | | | Blanca`[place]is[place] | | | | | | | | rt - | | | | | | | | [place]*` | | | | | | | | [id number] | | | | | | | | `[id number] | | | | | | | | 34`41581`R | | | | | | | [...] +--------+ +---+---+---+ + | | [facility] | [id number] | | | B | e-scripts | [...] | | | | | | | /`0 | | | | | | | | 01/18/2017` | | | | | | | | [place] - | | | | | | | | [place]*` | | | | | | | | [id number] | | | | | | | | `[id number] | | | | | | | | 90`30634`V | | | | | | | [...] +--------+ +---+---+---+ + | | [facility] | [phone] | | | B | e-scripts | [...] | | | | | | | [place]*` | | | | | | | | [id number] | | | | | | | | `[id number] | | | | | | | [...] Rx Refill: eRx Request for RELION PEN [id number] MIS | + + + +--------+ +---+---+---+ + | | [facility] | [phone] | | | B | e-scripts | | | | 9`RELION | | | | messenger | | | | PEN | | | | refill | | | | [id number] | | | | request | | [...] | | | | | | | 1`0`/11/ | | | | | | | | 2016`10/15 | | | | | | | | /2016`[address] | | | | | | | | art - | | | | | | | | [place]*` | | | | | | | | [id number] | | | | | | | | `[id number] | | | | | | | | 34`725439` | | | | | | | | RELION PEN | | | | | | | | [id number] | | | | | | | [...] | | | | | | | KWJOSELINPEN. | | | | | + +--------+ +---+---+---+ + + + | Rx Refill: eRx Request for VALSARTAN 160MG TAB | + + + +--------+ +---+---+---+ + | | [facility] | [phone] | | | B | e-scripts | [...] | | | | | | | [id number] | | | | | | | | `[id number] | | | | | | | [...] +--------+ +---+---+---+ + | | [facility] | [id number] | | | B | e-scripts | [...] | | | | | | | [place]*` | | | | | | | | [id number] | | | | | | | | `[id number] | | | | | | | [...] | Rx Nighat: Taryn Request for RELION PEN [id number] MIS | + + + +--------+ +---+---+---+ + | | [facility] | [id number] | | | B | e-scripts | | | | 0`RELION | | | | messenger | | | | PEN | | | | refill | | | | [id number] | | | | request | | [...] | | | | | | | [place]*` | | | | | | | | [id number] | | | | | | | | `[id number] | | | | | | | | 34`213855` | | | | | | | | RELION PEN | | | | | | | | [id number] | | | | | | | [...] +--------+ +---+---+---+ + | | ESM_RR | [id number] | | | B | e-scripts | [...] | | | | | | | [id number] | | | | | | | | `[id number] | | | | | | | [...] +--------+ +---+---+---+ + | | ESM_RR | [id number] | | | B | e-scripts | [...] | | | | | | | [place]*` | | | | | | | | [id number] | | | | | | | | `[id number] | | | | | | | | 59`279325` | | | | | | | [...] +--------+------+---+---+---+ + + + | Phone Note: [employer] Non formulary | + + + +--------+------+---+---+---+ + [...] +--------+ +---+---+---+ + | | ESM_RR | [id number] | | | B | e-scripts | [...] | | | | | | | 017` | | | | | | | | 2017`Walma | | | | | | | | rt - | | | | | | | | [place]*` | | | | | | | | [id number] | | | | | | | | `[id number] | | | | | | | [...] + + + | Mental Health Visit: MH Psychiatric Diagnostic Interview Progress Note | + [...] +--------+ +---+---+---+ + | | ESM_RR | [id number] | | | B | e-scripts | [...] | | | | | | | 1`0`11/14/ | | | | | | | | 2016`01/16 | | | | | | | | /2017`Walm | | | | | | | | art - | | | | | | | | [place]*` | | | | | | | | [id number] | | | | | | | | `[id number] | | | | | | | [...] +--------+ +---+---+---+ + | | ESM_RR | [id number] | | | B | e-scripts | [...] | | | | | | | [id number] | | | | | | | | `[id number] | | | | | | | | 09``CATHYSAR | | | | | | | [...] + + + +---+---+---+ + | | [facility] | See Report | | | | [...] +--------+ +---+---+---+ + | | ESM_RR | [id number] | | | B | e-scripts | [...] | | | | | | | [place]*` | | | | | | | | [id number] | | | | | | | | `[id number] | | | | | | | [...] | Rx Refill: eRx Request for INSULIN PUDU1YM/29G MIS | + + + +--------+ +---+---+---+ + | | ESM_RR | [id number] | | | B | e-scripts | | | | 7`INSULIN | | | | messenger | | | | [id number] | | | | refill | | [...] | | | | | | | [place]*` | | | | | | | | [id number] | | | | | | | | `[id number] | | | | | | | | 01`85539`I | | | | | | | | NSULIN | | | | | | | | [id number] | | | | | | | [...] +--------+ +---+---+---+ + | | ESM_RR | [id number] | | | B | e-scripts | [...] | | | | | | | [id number] | | | | | | | | `[id number] | | | | | | | | 568`17670` | | | | | | | [...] +--------+ +---+---+---+ + | | ESM_RR | [id number] | | | B | e-scripts | [...] | | | | | | | [place]*` | | | | | | | | [id number] | | | | | | | | `[id number] | | | | | | | [...] | + + +------+ + +---+ + Plan of Care + + + + | Type | Date | Detail | + + + + | Appointment | 11:30 AM | David Cornejo MD [facility], | | | | [address] [facility] | | | | [address], [address], | | | | | + + + + | Referral | | Ophthalmology Consult | + + + + | Referral | | Physical Therapy Evaluation | | | | [facility] [address] | | | [address] | | | | [address], [place], [address] | | | | | | | | | + + + + | Referral | | Physical Therapy Evaluation | | | | [facility], [address] | | | [address] | | | | [address], [place], [address] | | | | | | | | | + + + + | Referral | | GI Consult | | | | Emeka Clark MD, [address] | | | | [address], | | | | [place], [address] | | | | | + + + + | Referral | | GI Consult | | | | Emeka Clark MD, [address] | | | | [address], | | | | [place], [address] | | | | | + + + + | Referral | | Nephrology Evaluation | | | | Anisa Reeves, | | | | [address] [facility] [address] | | | | [address], [place], [address] | | | | | | | | | + + + + | Referral | | Nephrology Evaluation | | | | Larry Galo, | | | | [address], | | | | [address], [place], [address] | | | | | | | | | + + + + | Referral | | Surgical Consult | | | | Jesus Long, [address] | | | | [address], | | | | [place], [address] | | | | | + + + + | Referral | | Surgical Consult | | | | Jesus Long, [address] | | | | [address], | | | | [place], [address] | | | | | + + + + | Referral | | Endocrinology Consult | + + + + | Referral | | Podiatry Consult | | | | Kali Palacio, [address] | | | | [place], | | | | [place], [address] | | | | | + + + + | Referral | | Nephrology Evaluation | | | | Larry Galo, | | | | [address], | | | | [address], [place], [place], [address] | | | | | | | | | + + + + | Referral | | Podiatry Consult | | | | Kali Palacio, [address] | | | | [place], | | | | [place], [address] | | | | | + + + + | Referral | | Nephrology Evaluation | | | | Larry Galo, | | | | [address], | | | | [address], [place], [address] | | | | | | | | | + + + + | Referral | | Neurology Consult | | | | [employer] Phone #, | | | | [address] | | | | , [place], [place], [address] | | | | | + + + + | Referral | | Neurology Consult | | | | [employer] Phone #, | | | | [address] [facility] | | | | [address], [place], [address] | | | | | + + + + | Referral | | MRA Head-WO Con | | | | Dian Atkins, [address] | | | | [facility], | | | | [place], [address] | | | | | + + + + | Referral | | MRA Head-WO Con | | | | Dian Atkins, [address] | | | | [address], | | | | [place], [address] | | | | | + + + + | Referral | | MRA Head-WWO Con | | | | Dian Atkins, [address] | | | | [address], | | | | [place], [address] | | | | | + + + + | Referral | | MRA Head-WWO Con | | | | Dian Atkins, [address] | | | | [address], | | | | [place], [address] | | | | | + + + + +---+ + | | Referral excluded from report: | +---+ + + + + + | Referral | | Physical Therapy Evaluation | | | | [facility], [address] | | | | [address] | | | | [address], [place], [address] | | | | | | | | | + + + + | Referral | | Neurology Consult | | | | MD August Bourne, [address] | | | | [address], [place], | | | | [place], [address] | | | | | + + + + | Referral | | Neurology Consult | | | | Rogers Ozuna, [address] | | | | [address], [place], | | | | [place], [address] | | | | | + + + + | Referral | | Cardiology Consult | | | | MD Pelon Fay, | | | | [address] | | | | [address], [place], [address] | | | | | | | | | + + + + | Referral | | GI Consult | | | | [address] | | | | [address], [place], [address] | | | | | | | | | + + + + | Referral | | Physical Therapy Evaluation | | | | [facility] | | | | [address] [facility] | | | | [address], [place], [address] | | | | | | | | | + + + + | Referral | | Diabetic Education - | | | | Individual | | | | [facility], | | | | [address], | | | | [place], [address] | | | | | + + + + | Referral | | GI Consult | | | | [address] | | | | [address], [place], [address] | | | | | | | | | + + + + | Referral | | US Soft Tissue Head/Neck | | | | Exam Dian | | | | Scheduling, [address] | | | | [place], [place], | | | | [address] | | | | | + + + + | Referral | | Neurology Consult | | | | [place] [facility] | | | | [facility], [address] [facility], | | | | [place], [address] | | | | | + + + + | Referral | | VL Carotid-Cerebral Duplex | | | | Dian | | | | Scheduling, [address] | | | | [place], [place], | | | | [address] | | | | | + + + + | Referral | | Holter Monitor | | | | Dian Atkins, [address] | | | | [address], | | | | [place], [address] | | | | | + + [...] Microalb/Creat Ratio UR, | | | | [place] | + + + + | Pending [...] | + + + + + | [id number] | Overweight | | | + + + + + | CPT-25525 | IV infusion -1st hr | | | | | (Rehydration) | | | + + + + + | CPT-95872 | Glucose by monitor | | | + + + + + | CPT-94615 | UA Dipstick | | | + + + + + | CPT-32000 | UA Dipstick | | | + + + + + | CPT-76614 | Initial Psych | | | | | Evaluation | | | + + + + + | CPT-66615 | [facility], 6 or | | | | | more [address] | | | + + + + [...] | + + + + + | CPT-32208 | Trim Skin Lesions | | | | | [address] | | | + + + + + | CPT-47311 | UA Dipstick | | | + + + + + | CPT-93702 | [facility], [address] or | | | | | more [address] | | | + + + + [...] | + + + + + | CPT-22588 | Barbie Berry, 6 or | | | | | more [address] | | | + + + + [...] | + + + + + | CPT-77718 | MRA Head-WWO Con | | | + + + + + +---+ + | | Order excluded from report: | +---+ + + + + + + | CPT-88567 | Physical Therapy | | | | | Evaluation | | | + + + + + | [id number] | [facility] Generic Patient | | | | | Encounter Service | | | | | (from patch) | | | + + + + + | [id number] | [Recorded for [facility]] | | | | | Documentation of | | | | | current medications | | | | | (procedure) | | | + + + + + | [id number] | [Recorded for [facility]] | | | | | Documentation of | | | | | current medications | | | | | (procedure) | | | + + + + + | [id number] | [Recorded for [facility]] | | | | | Documentation of | | | | | current medications | | | | | (procedure) | | | + + + + + | [id number] | [Recorded for [facility]] | | | | | Documentation of | | | | | current medications | | | | | (procedure) | | | + + + + + | FREE T4 82320 | T4 Free | | | + + + + + | T3 FREE 11415 | T3 Free | | | + + + + + | TSH 77220 | TSH | | | + + + + + | GLYCO HGB 43939 | HgbA1C | | | + + + + + | [id number] | [facility] Generic Patient | | | | | Encounter Service | | | | | (from patch) | | | + + + + + | [id number] | [Recorded for [facility]] | | | | | Documentation of | | | | | current medications | | | | | (procedure) | | | + + + + + | [id number] | [facility] Generic Patient | | | | | Encounter Service | | | | | (from patch) | | | + + + + + | CPT-69204 | EKG- tracing with | | | | | report (17472) | | | + + + + + | [id number] | [Recorded for [facility]] | | | | | Documentation of | | | | | current medications | | | | | (procedure) | | | + + + + + | [id number] | [facility] Generic Patient | | | | | Encounter Service | | | | | (from patch) | | | + + + + + | CPT-Troponin l | Troponin I | | | | 07650 | | | | + + + + + | [id number] | [Recorded for [facility]] | | | | | Documentation of | | | | | current medications | | | | | (procedure) | | | + + + + + | CPT-43815 | Physical Therapy | | | | | Evaluation | | | + + + + + | CPT-G8427 | Current Medications | | | | | Documented | | | + + + + + | [id number] | [Recorded for [facility]] | | | | | Documentation of | | | | | current medications | | | | | (procedure) | | | + + + + + | CPT-G8427 | Current Medications | | | | | Documented | | | + + + + + | [id number] | [Recorded for [facility]] | | | [...] + + + + | CHEM PROF 64604 | CMP (Comprehensive | | | | | Metabolic Panel) | | | + + + + + | GLYCO HGB 90217 | HgbA1C | | | + + + + + | CPT-Q2037 | Fluvirin | | | | | (Influenza) | | | | | Med/Atrio | | | + + + + + | RISK 75645 | Lipid Profile | | | + + + + + | VIT D HYDR 85001 | Vit D, 25 hydroxy | | | + + + + + | CYC CITRU 53266 | Cyclic | | | | | Citrullinated Pept | | | | | IgG | | | + + + + + | RA QUANT 01561 | Rheumatoid Factor | | | | | (quant) | | | + + + + + | TSH 98881 | TSH | | | + + + + + | IVANA 04461 | IVANA | | | + + + + + | GLYCO HGB 31878 | HgbA1C | | | + + + + + | CPT-90503 | EKG- tracing with | | | | | report (94097) | | | + + + + + | CPT-13558 | ANDRE | | | + + + + + | 67919 32494 | Holter Monitor 48H | | | | | Panel | | | + + + + + | 01840 60538 | Holter Monitor 72H | | | | | Panel | | | + + + + + | CPT-42023 | Barium Swallow MBS | | | | | with Speech | | | + + + + + | 81177 44577 | US Abdomen-Cmplt | | | | | and Pelvic-Lmtd | | | + + + + + | CPT-06876 | US Soft Tissue | | | | | Head/Neck Exam | | | + + + + + | CPT-75472 | Motor nerve testing | | | | | - each nerve | | | + + + + + | RISK 44589 | Lipid Profile | | | + + + + + | ESR 84884 | Sedimentation Rate | | | | | (ESR) | | | + + + + + | SPEP IF 32709 | SPEP with JESÚS if | | | | | indicated | | | + + + + + | B12+FOLATE MULTIPLE | B-12 - Folate | | | + + + + + | PFA 17325 | Platelet Function | | | | | Assay | | | + + + + + | 77386 | MRA Head-WO Con | | | + + + + + | 24025 | MR Head-WO Con | | | + + + + + | CPT-06239 | VL Carotid-Cerebral | | | | | Duplex | | | + + + + + | CPT-91987 | Holter Monitor | | | + + + + + | D DIMER 12570 | D-dimer (tyrese) | | | + + + + + | 81427 | CT Head-WWO Con | | | + + + + + | VIT D HYDR 00127 | Vit D, 25 hydroxy | | | + + + + + | TSH 33916 | TSH | | | + + + + + | B12+FOLATE MULTIPLE | B-12 - Folate | | | + + + + + | UA 36793 | Urinalysis | | | + + + + + | CHEM PROF 20855 | CMP (Comprehensive | | | | | Metabolic Panel) | | | + + + + + | CBC 86067 | CBC w/ Diff - w/ | | | | | platelets | | | + + + + + | GLYCO HGB 58766 | HgbA1C | | | + + + + + | TSH 18994 | TSH | | | + + + + + | VIT D HYDR 62313 | Vit D, 25 hydroxy | | [...]
--- OUTSIDE RECORDS SUMMARY | ~2019-03-25 | XMS | Clinical Summary ---
Demographics + + + | Address | [address] | | | [place] [address] | + + + | Home Phone | | + + + | Preferred Language | Unknown | + + + | Marital Status | D | + + + | Worship Affiliation | Unknown | + + + | Race | Unspecified | + + + | Ethnic Group | or | + + + Author + + + | Author | [facility] | + + + | Organization | [facility] | + + + | Address | [address] | | | [place] [address] | + + + | Phone | Unavailable | + + + Care Team Providers + +------+ + | Care News Reel Cameraman Name | Role | Phone | + [...] fied | | +---------+---------+---------+---------+---------+---------+---------+---------+---------+ | DIABETE | [id number] | | Active | | David W | | Diabeti | | | S | [id number] | /15 | | /15 | Theen [...] s | | +---------+---------+---------+---------+---------+---------+---------+---------+---------+ | MUSCLE | [id number] | | Active | | Christen | | Muscle | | | PAIN | 1 | | | /07 | J. | | pain | | | | (SNOMED | | | | [place] | | | | | | CT) | | | | ta PRIMARY SPECIAL EDUCATOR | | | | +---------+---------+---------+---------+---------+---------+---------+---------+---------+ | DIABETE | [id number] | | Active | | David W | | Diabeti | | | S | 887174 | /11 | | /12 | Theen [...] s | | +---------+---------+---------+---------+---------+---------+---------+---------+---------+ | MILD | 7035076 | | Active | | Maulik | [...] uterus | | +---------+---------+---------+---------+---------+---------+---------+---------+---------+ | COLONIC | 5965967 | | Active | | Emeka | [...] | | | +---------+---------+---------+---------+---------+---------+---------+---------+---------+ | CONSTIP | 1772673 | | Active | | Emeka | | Constip | | | ATION | 8 | /13 | | /13 | Petre | | ation | | | | (SNOMED | | | | MD | | | | | | CT) | | | | | | | | +---------+---------+---------+---------+---------+---------+---------+---------+---------+ | CHANGE | [id number] | | Active | | Emeka | | Altered | | | IN | 9 | /13 | | /13 | Petre | | bowel | | | BOWEL | (SNOMED | | | | MD | | functio | | | HABITS | CT) | | | | | | n | | +---------+---------+---------+---------+---------+---------+---------+---------+---------+ | DECREAS | 5242385 | | Active | | Emeka | | Decreas | | | ED | 6 | /13 | | /13 | Petre | | e in | | | APPETIT | (SNOMED | | | | MD | | appetit | | | E | CT) | | | | | | e | | +---------+---------+---------+---------+---------+---------+---------+---------+---------+ | WEIGHT | 0283625 | | Active | | Emeka | | Abnorma | | | LOSS | 01 | /13 | | /13 | Petre | | l | | | ABNORMA | (SNOMED | | | | MD | | weight | | | L | CT) | | | | | | loss | | +---------+---------+---------+---------+---------+---------+---------+---------+---------+ | NAUSEA | 6383815 | | Active | | Emeka | | Nausea | | | ALONE | 07 | /13 | | /13 | Petre | | | | | | (SNOMED | | | | MD | | | | | | CT) | | | | | | | | +---------+---------+---------+---------+---------+---------+---------+---------+---------+ | RECTAL | [id number] | | Active | | Emeka | | Rectal | | | BLEEDIN | 2 | /13 | | /13 | Petre | | hemorrh | | | G | (SNOMED | | | | MD | | age | | | | CT) | | | | | | | | +---------+---------+---------+---------+---------+---------+---------+---------+---------+ | DEMENTI | 0415026 | | Active | | Christen | | Dementi | | | A | 6 | / | | /10 | J. | | a | | | WITHOUT | (SNOMED | | | | [place] | | | | | | CT) | | | | ta PRIMARY SPECIAL EDUCATOR | | | | | BEHAVIO | | | | | | | | | | RAL | | | | | | | | | | DISTURB | | | | | | | | | | ANCE | | | | | | | | | +---------+---------+---------+---------+---------+---------+---------+---------+---------+ | CHRONIC | 5842846 | | Active | | Christen | | Chronic | | | | 03 | /10 | | /10 | J. | | | | | PROGRES | (SNOMED | | | | [place] | | progres | | | SIVE | CT) | | | | ta PRIMARY SPECIAL EDUCATOR | | sive | | | RENAL | | | | | | | renal | | | FAILURE | | | | | | | failure | | +---------+---------+---------+---------+---------+---------+---------+---------+---------+ | ANEMIA | 9063363 | | Active | | Christen | | Anemia | | | | 00 | / | | | J. | | | | | | (SNOMED | | | | [place] | | | | | | CT) | | | | ta PRIMARY SPECIAL EDUCATOR | | | | +---------+---------+---------+---------+---------+---------+---------+---------+---------+ | DEMENTI | 7858840 | | Active | | Christen | | Procedu | | | A | | | | | J. | | re | | | SCREENI | (SNOMED | | | | [place] | | carried | | | NG | CT) | | | | ta PRIMARY SPECIAL EDUCATOR | | out on | | | | | | | | | | | | | | | | | | | | subject | | +---------+---------+---------+---------+---------+---------+---------+---------+---------+ | FALL | 7137588 | | Active | | Christen | | At risk | | | RISK | 07 | /21 | | /22 | J. | | for | | | | (SNOMED | | | | [place] | | falls | | | | CT) | | | | ta PRIMARY SPECIAL EDUCATOR | | | | +---------+---------+---------+---------+---------+---------+---------+---------+---------+ | DIABETE | 0512577 | | Resolve | | Christen | | Diabeti | | | S | 646144 | /14 | d | /15 | J. | | c | | | MELLITU | (SNOMED | | | | [place] | | periphe | | | S, TYPE | CT) | | | | ta PRIMARY SPECIAL EDUCATOR | | ral | | | II [...] s | | +---------+---------+---------+---------+---------+---------+---------+---------+---------+ | CORNS | [id number] | | Inactiv | | Kali | | Corns | | | AND | 00 | / | e | / | Palacio | | and | | | CALLOSI | (SNOMED | | | | DPM | | callus | | | TIES | CT) | | | | | | | | +---------+---------+---------+---------+---------+---------+---------+---------+---------+ | HAMMER | 3125527 | | Active | | Kali | [...] | | | +---------+---------+---------+---------+---------+---------+---------+---------+---------+ | HALLUX | 2187977 | | Active | | Kali | [...] ropathy | | +---------+---------+---------+---------+---------+---------+---------+---------+---------+ | DIABETE | 8975000 | | Active | | Kali | [...] s | | +---------+---------+---------+---------+---------+---------+---------+---------+---------+ | ONYCHOM | 0899294 | | Active | | Kali | | Onychom | | | YCOSIS | 08 | /01 | | /01 | Palacio | | ycosis | | | | (SNOMED | | | | DPM | | | | | | CT) | | | | | | | | +---------+---------+---------+---------+---------+---------+---------+---------+---------+ | HEARTBU | 5093145 | | Active | | Tiesha | | Heartbu | | | RN | 0 | / | | / | | | rn | | | | (SNOMED | | | | Halma | | | | | | CT) | | | | MD | | | | +---------+---------+---------+---------+---------+---------+---------+---------+---------+ | TYPE 2 | 9910684 | | Active | | Tiesha | [...] S | -CM) | | | | Halma | | s | | | MELLITU [...] athy | | +---------+---------+---------+---------+---------+---------+---------+---------+---------+ | UTI | 5621287 | | Active | | Pako | | Urinary | | | | 5 | /13 | | /13 | Middlek | | tract | | | | (SNOMED | | | | auff | | infecti | | | | CT) | | | | PRIMARY SPECIAL EDUCATOR | | ous | | | | | | | | | | disease | | +---------+---------+---------+---------+---------+---------+---------+---------+---------+ | LOCALIZ | 7817656 | | Active | | [place]lena | [...] | | | +---------+---------+---------+---------+---------+---------+---------+---------+---------+ | LIPOMA | 3982415 | | Active | | Lauranc | | Lipoma | | | | 2 | /14 | | /14 | e W | | (clinic | | | | (SNOMED | | | | Lila | | al) | | | | CT) | | | | MD | | | | +---------+---------+---------+---------+---------+---------+---------+---------+---------+ | VITAMIN | 6092994 | | Active | | David W | | Vitamin | | | D | 6 | /14 | | /15 | Theen | | D | | | DEFICIE | (SNOMED | | | | MD FACE | | deficie | | | NCY | CT) | | | | FACP | | ncy | | +---------+---------+---------+---------+---------+---------+---------+---------+---------+ | OBESITY | 2753279 | | Active | | David W | | Obesity | | | , BMI | 01 | /14 | | /15 | Theen | | | | | 35-39.9 | (SNOMED | | | | MD FACE | | | | | , ADULT | CT) | | | | FACP | | | | +---------+---------+---------+---------+---------+---------+---------+---------+---------+ | DIABETE | 6153171 | | Removed | | David W | | Diabeti | | | S | 322035 | /14 | | /15 | Theen [...] s | | +---------+---------+---------+---------+---------+---------+---------+---------+---------+ | HALLUX | 6527921 | | Inactiv | | Kali | [...] | | | +---------+---------+---------+---------+---------+---------+---------+---------+---------+ | HAMMER | 3050691 | | Inactiv | | Kali | [...] | | | +---------+---------+---------+---------+---------+---------+---------+---------+---------+ | ONYCHOM | 3683876 | | Inactiv | | Kali | [...] ropathy | | +---------+---------+---------+---------+---------+---------+---------+---------+---------+ | DIABETE | 6783655 | | Inactiv | | Kali | [...] s | | +---------+---------+---------+---------+---------+---------+---------+---------+---------+ | SCREENI | 7099793 | | Resolve | | Lauranc | | Depress | | | NG FOR | 06 | /10 | d | /10 | e W | | ion | | | DEPRESS | (SNOMED | | | | Lila | | screeni | | | ION | CT) | | | | MD | | ng | | +---------+---------+---------+---------+---------+---------+---------+---------+---------+ | SCREENI | 3479813 | | Resolve | | Lauranc | [...] | | | +---------+---------+---------+---------+---------+---------+---------+---------+---------+ | SCREENI | 6574808 | | Resolve | | Lauranc | [...] ng | | +---------+---------+---------+---------+---------+---------+---------+---------+---------+ | SCREENI | 3683165 | | Removed | | Geetha | [...] ng | | +---------+---------+---------+---------+---------+---------+---------+---------+---------+ | SCREENI | 4460389 | | Removed | | Geetha | | Screeni | | | NG FOR | | / | | | [place] | | ng for | | | UNSPECI | (SNOMED | | | | [facility] | | disorde | | | FIED | CT) | | | | | | r | | | CONDITI | | | | | | | | | | ON | | | | | | | | | +---------+---------+---------+---------+---------+---------+---------+---------+---------+ | SCREENI | 2809790 | | Removed | | Geetha | | Depress | | | NG FOR | | | | /10 | [place] | | ion | | | DEPRESS | (SNOMED | | | | [facility] | | screeni | | | ION | CT) | | | | | | ng | | +---------+---------+---------+---------+---------+---------+---------+---------+---------+ | RENAL | 5344885 | | Active | | Lauranc | [...] e | | +---------+---------+---------+---------+---------+---------+---------+---------+---------+ | EDEMA | 3159856 | | Active | | Lauranc | | Edema | | | | 08 | /15 | | / | e W | | | | | | (SNOMED | | | | Lila | | | | | | CT) | | | | MD | | | | +---------+---------+---------+---------+---------+---------+---------+---------+---------+ | RENAL | 1281013 | | Active | | Luz | [...] e | | +---------+---------+---------+---------+---------+---------+---------+---------+---------+ | PERIPHE | 9827101 | | Active | | Lauranc | [...] disease | | +---------+---------+---------+---------+---------+---------+---------+---------+---------+ | CANDIDI | 6048463 | | Active | | Susanna | | Candidi | | | ASIS, | | / | | / | Medel | | asis of | | | SKIN | (SNOMED | | | | MD | | skin | | | | CT) | | | | | | | | +---------+---------+---------+---------+---------+---------+---------+---------+---------+ | DYSURIA | 8584543 | | Active | | Erica | | Dysuria | | | | 1 | /31 | | /31 | Paul | | | | | | (SNOMED | | | | MA | | | | | | CT) | | | | | | | | +---------+---------+---------+---------+---------+---------+---------+---------+---------+ | VAGINIT | 6536240 | | Active | | Erica | | Vaginit | | | IS | 1 | / | | /31 | Paul | | is | | | | (SNOMED | | | | MA | | | | | | CT) | | | | | | | | +---------+---------+---------+---------+---------+---------+---------+---------+---------+ | RLQ | 7660044 | | Resolve | | Lauranc | | Right | | | PAIN | 02 | | d | /11 | e W | | lower | | | | (SNOMED | | | | Lila | | quadran | | | | CT) | | | | MD | | t pain | | +---------+---------+---------+---------+---------+---------+---------+---------+---------+ | ABDOMIN | 6395889 | | Resolve | | Lauranc | [...] | | | +---------+---------+---------+---------+---------+---------+---------+---------+---------+ | KNEE | 6540045 | | Active | | Lauranc | | Knee | | | PAIN | 3 | /14 | | /14 | e W | | pain | | | | (SNOMED | | | | Lila | | | | | | CT) | | | | MD | | | | +---------+---------+---------+---------+---------+---------+---------+---------+---------+ | Questio | 8712255 | | Correct | | Lauranc | [...] | | | +---------+---------+---------+---------+---------+---------+---------+---------+---------+ | VERTEBR | 7966574 | | Active | | Lauranc | [...] e | | +---------+---------+---------+---------+---------+---------+---------+---------+---------+ | VERTIGO | 6943998 | | Active | | Luz | | Vertigo | | | | 01 | / | | /03 | Asad | | | | | | (SNOMED | | | | RN | | | | | | CT) | | | | | | | | +---------+---------+---------+---------+---------+---------+---------+---------+---------+ | CHEST | 8185960 | | Inactiv | | Genny | | Chest | | | PAIN | 9 | | e | /02 | Kaufman | | pain | | | | (SNOMED | | | | | | | | | | CT) | | | | | | | | +---------+---------+---------+---------+---------+---------+---------+---------+---------+ | CHEST | 1732998 | | Inactiv | | Lauranc | [...] fied | | +---------+---------+---------+---------+---------+---------+---------+---------+---------+ | CEREBRO | 4276698 | | Active | | Rogers | | 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 | (SNOMED | | | | MD | | r | | | DISEASE | CT) | | | | | | disease | | +---------+---------+---------+---------+---------+---------+---------+---------+---------+ | History | 0414443 | | Active | | Rogers | [...] | | | +---------+---------+---------+---------+---------+---------+---------+---------+---------+ | DIABETI | 9814429 | | Active | | Rogers | [...] thy | | +---------+---------+---------+---------+---------+---------+---------+---------+---------+ | HYPERLI | 4402229 | | Active | | Rogers | | Hyperli | | | PIDEMIA | 4 | 30 | | | Laith | | pidemia | | | | (SNOMED | | | | MD | | | | | | CT) | | | | | | | | +---------+---------+---------+---------+---------+---------+---------+---------+---------+ | History | 8818503 | | Active | | Rogers | [...] e | | +---------+---------+---------+---------+---------+---------+---------+---------+---------+ | CEREBRA | 9211780 | | Correct | | Rogers | [...] s | | +---------+---------+---------+---------+---------+---------+---------+---------+---------+ | ABDOMIN | 6028385 | | Removed | | Patricia | [...] | | | +---------+---------+---------+---------+---------+---------+---------+---------+---------+ | RLQ | 9603849 | | Removed | | Patricia | [...] fied | | +---------+---------+---------+---------+---------+---------+---------+---------+---------+ | CARPAL | 6276476 | | Active | | Rogers | | Carpal | | | TUNNEL | 9 | /25 | | /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 | | | | MD | | 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, LEFT | CT) | | | | | | e | | +---------+---------+---------+---------+---------+---------+---------+---------+---------+ | Questio | 5222046 | | Removed | | Rogers | [...] | | | +---------+---------+---------+---------+---------+---------+---------+---------+---------+ | GAIT | 6559330 | | Active | | Rogers | | Abnorma | | | IMBALAN | 2 | /25 | | / | Laith | | l gait | | | CE | (SNOMED | | | | MD | | | | | | CT) | | | | | | | | +---------+---------+---------+---------+---------+---------+---------+---------+---------+ | BRAIN | 6691765 | | Correct | | Rogers | [...] e | | +---------+---------+---------+---------+---------+---------+---------+---------+---------+ | PARESTH | 9856239 | | Active | | Rogers | | Paresth | | | ESIA, | 04 | | | / | Laith | | esia of | | | HANDS | (SNOMED | | | | MD | | hand | | | | CT) | | | | | | | | +---------+---------+---------+---------+---------+---------+---------+---------+---------+ | PERIPHE | 4444897 | | Correct | | Rogers | | Periphe | | | RAL | 06 | | ion | /25 | Laith | | ral | | | NEUROPA | (SNOMED | | | | MD | | nerve | | | THY | CT) | | | | | | disease | | +---------+---------+---------+---------+---------+---------+---------+---------+---------+ | THYROID | 1499343 | | Active | | Luz | | Thyroid | | | NODULE | 05 | /20 | | /20 | [place]arton | | nodule | | | | (SNOMED | | | | [facility] | | | | | | CT) | | | | | | | | +---------+---------+---------+---------+---------+---------+---------+---------+---------+ | TIA | 7684988 | | Active | | Lauranc | [...] a | | +---------+---------+---------+---------+---------+---------+---------+---------+---------+ | SYNCOPE | 8817758 | | Active | | Lauranc | | Syncope | | | | 07 | / | | /10 | e W | | | | | | (SNOMED | | | | Lila | | | | | | CT) | | | | MD | | | | +---------+---------+---------+---------+---------+---------+---------+---------+---------+ | GASTROP | 5497147 | | Active | | Lauranc | | 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 | | | | (SNOMED | | | | Lila | | syndrom | | | | CT) | | | | MD | | e | | +---------+---------+---------+---------+---------+---------+---------+---------+---------+ | CONSTIP | 4524400 | | Active | | Lauranc | | Chronic | | | ATION, | 09 | /08 | | /08 | e W | | | | | CHRONIC | (SNOMED | | | | Lila | | constip | | | | CT) | | | | MD | | ation | | +---------+---------+---------+---------+---------+---------+---------+---------+---------+ | POSTHER | 8451470 | | Active | | Lauranc | | Posther | | | 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 | (SNOMED | | | | Lila | | neuralg | | | IA | CT) | | | | MD | | ia | | +---------+---------+---------+---------+---------+---------+---------+---------+---------+ | DIZZINE | 1013443 | | Active | | Lauranc | | Dizzine | | | SS | 03 | /08 | | /08 | e W | | ss | | | | (SNOMED | | | | Lila | | | | | | CT) | | | | MD | | | | +---------+---------+---------+---------+---------+---------+---------+---------+---------+ | DEHYDRA | 7836306 | | Active | | Lauranc | | Dehydra | | | TION | 6 | /08 | | /08 | e W | | tion | | | | (SNOMED | | | | Lila | | | | | | CT) | | | | MD | | | | +---------+---------+---------+---------+---------+---------+---------+---------+---------+ | DIABETE | 1581681 | | Active | | Lauranc | [...] | | | +---------+---------+---------+---------+---------+---------+---------+---------+---------+ | HYPERTE | 6756904 | | Active | | Lauranc | [...] take 1-2 | | | DIMENHYDRI | [id number] | Christen Ramirez | | 50 MG TABS | tabs 4 | | | MARCELA | 1 | [place] | | | times per | | | | | PRIMARY SPECIAL EDUCATOR | | | day as | | | | | | | | needed | | | | | | + + + + + + + + | VICTOZA 18 | | | | LIRAGLUTID | [id number] | Jesus | | MG/3ML | | | | E | 2 | Ethan MD | | SOPN | | | | | | | + + + + + + + + | BASAGLAR | 1 pen | | | INSULIN | 2911490139 | Christen Ramirez | | KWIKPEN | every 3 | | | GLARGINE | 9 | [place] | | 100 | days 56 | | | | | PRIMARY SPECIAL EDUCATOR | | UNIT/ML | units q | [...] by mouth | | | MECLIZINE | 8062864325 | Bailey W | | HCL 25 [...] mix and | | | NA | [id number] | Maulik | | BOWEL PREP | [...] take 2 | | | GABAPENTIN | 4393752512 | Bailey W | | 300 MG [...] Inject 0.6 | | | LIRAGLUTID | 0838747142 | Christen Ramirez | | MG/3ML | mg daily | | | E | 2 | [place] | | SOPN | | | | | | PRIMARY SPECIAL EDUCATOR | + + + + + + + + | ONDANSETRO | 1 tab | | | ONDANSETRO | 6224806458 | Kali | | N HCL 4 MG | every 4 | | | N HCL | 3 | Palacio DPM | | TABS | hours | | | | | | + + + + + + + + | VICTOZA 18 | | | | LIRAGLUTID | 7827460340 | Bailey W | | MG/3ML | [...] 1 tab | | | GABAPENTIN | 3252816778 | Jesus | | 300 MG | po tid . | | | | 0 | Ethan MD | | CAPS | Pt states | | | | | | | | as needed | | | | | | + + + + + + + + | COLACE 100 | 1 tab by | | | DOCUSATE | 9789772543 | Kali | | MG CAPS | mouth | | | SODIUM | 0 | Palacio DPM | | | daily at | | | | | | | | bedtime | | | | | | + + + + + + + + | CLONAZEPAM | Take one | | | CLONAZEPAM | 6041785291 | Edna | | 0.5 MG | [...] take 1 | | | ASPIRIN | 1132265854 | Rogers | | 325 MG | [...] 1 tab | | | PREGABALIN | 7665100025 | Laurance W | | MG CAPS | three | | | | 3 | Lila MD | | | times per | | | | | | | | day | | | | | | + + + + + + + + | GLUCOPHAGE | 1 tab one | | | METFORMIN | 6167884981 | Laurance W | | XR 500 MG | time per | | | HCL | 0 | Lila MD | | [id number] | day | | | | | | + + + + + + + + | HUMALOG | BS <150 - | | | INSULIN | 0289124977 | Christen Ramirez | | 100 | No insulin | | | LISPRO | 1 | [place] | | UNIT/ML | BS | | | (HUMAN) | | PRIMARY SPECIAL EDUCATOR | | SOLN | 150-200 | | [...] 50 units | | | INSULIN | 7612594382 | Pako | | UNIT/ML | once per | | | GLAVERNA | 3 | Ramesh | | GEOVANI | mikaela. Pt | | | | | f PRIMARY SPECIAL EDUCATOR | | | states she | | | | | | | | is taking | | | | | | | | 56 units | | | | | | | | every AM | | | | | | + + + + + + + + | NITROFURAN | Take one | | | NITROFURAN | 6859424283 | Edna | | TOIN | capsule [...] | One | | | ERGOCALCIF | 4560749259 | Mariano | | QUANG 40732 | capsule by | | | QUANG [...] take 2 | | | GABAPENTIN | 1549249316 | Mariano | | 300 MG | [...] 10ml QAM | | | METFORMIN | 7372731365 | Mariano | | MG/5ML | Liquid due | | | HCL | 2 | Ariella | | SOLN | to | | | | | CCMA | | | Dysphagia | | | | | | + + + + + + + + | ASPIRIN EC | take 1 | | | ASPIRIN | 6562819656 | Rogers | | 325 MG | tablet | | | | 0 | Laith MD | | TBEC | daily | | | | | | + + + + + + + + | RELION | Use to | | | GLUCOSE | 7381522427 | Kali | | BLOOD | test BG | | | BLOOD | 4 | Palacio DPM | | GLUCOSE | one time | | | | | | | TEST STRP | per day | | | | | | + + + + + + + + | NITROFURAN | | | | NITROFURAN | 6967850280 | Edna | | TOIN | | [...] one tablet | | | DOCUSATE | 9289700522 | Bailey W | | MG CAPS | by mouth | | | SODIUM | 0 | Lila MD | | | at bedtime | | | | | | + + + + + + + + | BIOTIN 1 | Take one | | | BIOTIN | 2794969390 | Jesus | | MG CAPS | daily in | | | | 2 | Ethan MD | | | the AM | | | | | | + + + + + + + + | BACTRIM DS | 1 by mouth | | | TRIMETHOPR | 7889936300 | Bailey W | | 800-160 | twice a | | | IM-SULFAME | 1 | Lila MD | | MG TABS | day for 3 | | | THOXAZOLE | | | | | days | | | | | | + + + + + + + + | ASPIRIN 81 | one time | | | ASPIRIN | 5710935006 | Mariano | | MG TABS | per day | | | | 5 | Ariella | | | | | | | | CCMA | + + + + + + + + | GABAPENTIN | two times | | | GABAPENTIN | 7644291337 | Mariano | | 100 MG | per day | | | | 1 | Ariella | | CAPS | | | | | | CCMA | + + + + + + + + | BIOTIN 1 | | | | BIOTIN | 2554412224 | Kali | | MG CAPS | | | | | 2 | Palacio DPM | + + + + + + + + | PIOGLITAZO | Take 1 tab | | | PIOGLITAZO | 6081037578 | Jesus | | NE HCL 15 [...] two times | | | MECLIZINE | 3572031092 | Mariano | | HCL 25 MG [...] take 1 | | | ASPIRIN | 1819080383 | Mariano | | 325 MG | tablet | | | | 0 | Ariella | | TBEC | daily | | | | | CCMA | + + + + + + + + | PIOGLITAZO | Take 1 tab | | | PIOGLITAZO | 6182183912 | Christen Ramirez | | NE HCL 15 | by mouth | | | NE HCL | 0 | [place] | | MG TABS | one time | | | | | PRIMARY SPECIAL EDUCATOR | | | per day in | | | | | | | | the AM | | | | | | + + + + + + + + | NEURONTIN | take 1 tab | | | GABAPENTIN | 7373596830 | Franciscoance W | | 300 MG | po tid | | | | 0 | Lila MD | | CAPS | | | | | | | + + + + + + + + | DIOVAN 160 | one time | | | VALSARTAN | 2282770429 | Mariano | | MG TABS | per day | | | | 0 | Ariella | | | | | | | | CCMA | + + + + + + + + | ASPIRIN | take 1 | | | ASPIRIN | 1657573013 | Bailey W | | 325 MG [...] Take one | | | POTASSIUM | 9231434286 | Jesus | | CHLORIDE | cap daily | | | CHLORIDE | 5 | Ethan MD | | ER 10 MEQ | in the AM | | | | | | | CR-CAPS | | | | | | | + + + + + + + + | KEFLEX 500 | 1 pill | | | CEPHALEXIN | 5471872479 | Tiesha | | MG CAPS | twice a | | | | 0 | Halma MD | | | day for 7 | | | | | | | | days | | | | | | + + + + + + + + | GABAPENTIN | one tablet | | | GABAPENTIN | [id number] | Bailey W | | 100 MG [...] 1 tab | | | MECLIZINE | [id number] | Franciscoance W | | HCL 25 MG | three | | | HCL | 1 | Lila MD | | TABS | times per | | | | | | | | day | | | | | | + + + + + + + + | NITROFURAN | Take one | | | NITROFURAN | [id number] | Edna | | TOIN | capsule [...] 0.02 ml | | | EXENATIDE | [id number] | Bailey W | | MCG PEN 5 | injection | | | | 1 | Lila MD | | MCG/0.02ML | two times | | | | | | | SOPN | per day | | | | | | + + + + + + + + | FLUCONAZOL | take one | | | FLUCONAZOL | 7931157716 | Franciscoance W | | E 150 [...] tab two | | | CILOSTAZOL | 6060839994 | Kali | | 100 MG | times per | | | | 1 | Hakeem DPM | | TABS | day | | | | | | + + + + + + + + | RIOMET 500 | 10ml's two | | | METFORMIN | 3731726547 | Laurance W | | MG/5ML | [...] D | | | | CHOLECALCI | 9931824721 | Kali | | 1000 UNIT | | | | FEROL | 0 | Hakeem DICKEYM | | TABS | | | | | | | + + + + + + + + | NEURONTIN | take 1 tab | | | GABAPENTIN | 8211945083 | Christen Ramirez | | 300 MG | po tid . | | | | 0 | [place] | | CAPS | Pt states | | | | | PRIMARY SPECIAL EDUCATOR | | | as needed | | | | | | + + + + + + + + | PANTOPRAZO | Take one | | | PANTOPRAZO | 2080306082 | Edna | | LE SODIUM | tablet by | | | LE SODIUM | 0 | Hope CCMA | | 40 MG TBEC | mouth once | | | | | | | | daily | | | | | | + + + + + + + + | BYETTA 5 | Take as | | | EXENATIDE | 4884419089 | Christen Ramirez | | MCG PEN 5 | directed | | | | 1 | [place] | | MCG/0.02ML | once daily | | | | | PRIMARY SPECIAL EDUCATOR | | SOPN | in the AM [...] two times | | | METFORMIN | 6480540402 | Mariano | | HCL 1000 | per day | | | HCL | 1 | Ariella | | MG TABS | | | | | | CCMA | + + + + + + + + | GABAPENTIN | Take 2 | | | GABAPENTIN | 4683533914 | Bailey W | | 300 MG [...] TAKE ONE | | | PREGABALIN | 1374099364 | Kesha | | MG CAPS | [...] 1 TAB | | | BUSPIRONE | 6274396026 | Kali | | HCL 7.5 MG | three | | | HCL | 5 | Palacio DPM | | TABS | times per | | | | | | | | day | | | | | | + + + + + + + + | LANTUS 100 | 25 units | | | INSULIN | 0656297919 | Jesus | | UNIT/ML | two [...] two times | | | MECLIZINE | 8385640770 | Laurance W | | HCL 25 MG | per day | | | HCL | 2 | Lila MD | | TABS | | | | | | | + + + + + + + + | MECLIZINE | One tab by | | | MECLIZINE | 6435383587 | Laurance W | | HCL 25 [...] Take one | | | PROMETHAZI | 5664823689 | Edna | | NE HCL 25 [...] Take one | | | CHOLECALCI | 4688162909 | Jesus | | 1000 UNIT | tablet | | | FEROL | 0 | Ethan MD | | TABS | daily in | | | | | | | | the AM | | | | | | + + + + + + + + | POTASSIUM | | | | POTASSIUM | 5019771761 | Kali | | CHLORIDE | | | | CHLORIDE | 5 | Palacio DPM | | ER 10 MEQ | | | | | | | | CR-CAPS | | | | | | | + + + + + + + + | DULOXETINE | 1 tab one | | | DULOXETINE | 4686093732 | Bailey W | | HCL 30 MG | time per | | | HCL | 6 | Lila MD | | CPEP | day | | | | | | + + + + + + + + | PROCHLORPE | Insert one | | | PROCHLORPE | 4994162819 | Edna | | RAZINE 25 | [...] tab by | | | MECLIZINE | 8611827653 | Christen Ramirez | | HCL 25 MG | mouth | | | HCL | 0 | [place] | | TABS | three | | | | | PRIMARY SPECIAL EDUCATOR | | | times per | | | | | | | | day | | | | | | + + + + + + + + | VALSARTAN | Take one | | | VALSARTAN | 7072965739 | Christen Ramirez | | 160 MG | tablet | | | | 2 | [place] | | TABS | daily in | | | | | PRIMARY SPECIAL EDUCATOR | | | the AM | | | | | | + + + + + + + + | BASAGLAR | 56 Units | | | INSULIN | 1986163754 | Christen Ramirez | | KWIKPEN | every | | | GLARGINE | 9 | [place] | | 100 | morning | | | | | PRIMARY SPECIAL EDUCATOR | | UNIT/ML | | | | | | | | SOPN | | | | | | | + + + + + + + + | LASIX 80 | 1 tab by | | | FUROSEMIDE | 2788444058 | Christen Kena. | | MG TABS | mouth one | | | | 5 | [place] | | | time per | | | | | PRIMARY SPECIAL EDUCATOR | | | day in the | [...] every | | | FOR | | PRIMARY SPECIAL EDUCATOR | | BASAGLAR | morning | | | BASAGLAR | | | | KWIKPEN | with | | | KWIKPEN | | | | | Basaglar | | | | | | | | Kwikpen | | | | | | + + + + + + + + | PLAVIX 75 | 1 tab by | | | CLOPIDOGRE | 3936620352 | Christen J. | | MG TABS | mouth one | | | L | 0 | [place] | | | time per | | | BISULFATE | | PRIMARY SPECIAL EDUCATOR | | | day in the | | | | | | | | evening | | | | | | + + + + + + + + | NOVOLOG | 3U before | | | INSULIN | 2227216130 | Christen J. | | 100 | lunch and | | | ASPART | 1 | [place] | | UNIT/ML | 5U before | | | | | PRIMARY SPECIAL EDUCATOR | | SOLN | Dinner | | [...] x 1 | | | LIRAGLUTID | 4787560729 | Crhisten Ramirez | | MG/3ML | week then | | | E | 2 | [place] | | SOPN | 1.2 mg | | | | | PRIMARY SPECIAL EDUCATOR | | | daily per | | | | | | | | week | | | | | | + + + + + + + + | LYRICA 100 | 1 tab | | | PREGABALIN | 8961754819 | Christen Ramirez | | MG CAPS | three | | | | 1 | [place] | | | times per | | | | | PRIMARY SPECIAL EDUCATOR | | | day. Pt | | | | | | | | states as | | | | | | | | needed | | | | | | + + + + + + + + | OMEPRAZOLE | Take one | | | OMEPRAZOLE | 6044894698 | Christen Ramirez | | 40 MG | by mouth | | | | 5 | [place] | | CPDR | one time | | | | | PRIMARY SPECIAL EDUCATOR | | | per day | | [...] Take 1 | | | GLIPIZIDE | 8543564705 | Christen Ramirez | | XL 2.5 MG | tablet | | | | 1 | [place] | | [id number] | p.o. | | | | | PRIMARY SPECIAL EDUCATOR | | | q.a.m. | | | | | | + + + + + + + + | BD INSULIN | Use 5 | | | INSULIN | 4627740154 | Christen Ramirez | | SYRINGE | times | | | SYRINGE-NE | 1 | [place] | | ULTRAFINE | daily to | | | EDLE U-100 | | PRIMARY SPECIAL EDUCATOR | | 29G X 1/2" | inject [...] 3U before | | | INSULIN | 8641937923 | Christen Ramirez | | 100 | lunch and | | | LISPRO | 0 | [place] | | UNIT/ML | 5U before | | | | | PRIMARY SPECIAL EDUCATOR | | SOLN | Dinner | | [...] Inject 0.6 | | | LIRAGLUTID | 5036785256 | Christen Ramirez | | MG/3ML | mg daily | | | E | 2 | [place] | | SOPN | | | | | | PRIMARY SPECIAL EDUCATOR | + + + + + + + + | LIPITOR 20 | take 1 | | | ATORVASTAT | 1814193585 | Christen Ramirez | | MG TABS | tablet by | | | IN CALCIUM | 0 | [place] | | | mouth | | | | | PRIMARY SPECIAL EDUCATOR | | | daily in | | | | | | | | the | | | | | | | | evening | | | | | | + + + + + + + + | BASAGLAR | 56 Units | | | INSULIN | 5820067224 | Christen Ramirez | | KWIKPEN | by mouth | | | GLARGINE | 9 | [place] | | 100 | every | | | | | PRIMARY SPECIAL EDUCATOR | | UNIT/ML | morning | | | | | | | SOPN | | | | | | | + + + + + + + + | VICTOZA 18 | 5 unit AM | | | LIRAGLUTID | 4582471054 | Christen Ramirez | | MG/3ML | and 5 | | | E | 2 | [place] | | SOPN | units PM | | | | | PRIMARY SPECIAL EDUCATOR | + + + + + + + + | BASAGLAR | 1 pen | | | INSULIN | 0017208215 | Christen Ramirez | | KWIKPEN | every 3 | | | GLARGINE | 9 | [place] | | 100 | days 56 | | | | | PRIMARY SPECIAL EDUCATOR | | UNIT/ML | units q | | | | | | | SOPN | Day | | | | | | + + + + + + + + | BYETTA 5 | Take as | | | EXENATIDE | 7956091349 | Christen Ramirez | | MCG PEN 5 | directed | | | | 1 | [place] | | MCG/0.02ML | once daily | | | | | PRIMARY SPECIAL EDUCATOR | | SOPN | in the AM | | | | | | + + + + + + + + | LANTUS 100 | 56 units | | | INSULIN | 4731813295 | Kaykay | | UNIT/ML | qAM | | | GLARGINE | 3 | Mora DO | | SOLN | | | | | | | + + + + + + + + | SUPREP | mix and | | | NA | 5512490006 | Emeka | | BOWEL PREP | [...] pill BID | | | DOCUSATE | [id number] | Christen Ramirez | | MG CAPS | | | | SODIUM | 0 | [place] | | | | | | | | PRIMARY SPECIAL EDUCATOR | + + + + + + + + | HUMALOG | BS <150 - | | | INSULIN | 7804412343 | Tiesha | | 100 | No [...] Use daily | | | INSULIN | 9821219825 | Tiesha | | NEEDLE | to [...] Use daily | | | GLUCOSE | 0853706747 | Tiesha | | BLOOD | to check | | | BLOOD | 4 | Halma MD | | GLUCOSE | blood | | | | | | | TEST STRP | sugar | | | | | | + + + + + + + + | DIABETIC | 1 pair per | | | FOOT CARE | 7236505377 | Tiesha | | INSOLES | custom [...] 1 pill | | | CEPHALEXIN | 1319723657 | Pako | | MG CAPS | twice a | | | | 0 | Middlekauf | | | day for 7 | | | | | f PRIMARY SPECIAL EDUCATOR | | | days | | | | | | + + + + + + + + | BYETTA 5 | 0.02 ml | | | EXENATIDE | 3904491180 | Bailey W | | MCG PEN 5 | injection | | | | 1 | Lila MD | | MCG/0.02ML | two times | | | | | | | SOPN | per day | | | | | | + + + + + + + + | LYRICA 100 | 1 tab | | | PREGABALIN | 6071494732 | Franciscoance W | | MG CAPS | three | | | | 8 | Lila MD | | | times per | | | | | | | | day | | | | | | + + + + + + + + | DRAMAMINE | take 1-2 | | | DIMENHYDRI | 5285702639 | Bailey W | | 50 MG [...] Use 5 | | | INSULIN | 1901456047 | Bailey W | | SYRINGE | [...] tab by | | | CLOPIDOGRE | 1339646060 | Laurance W | | MG TABS | mouth one | | | L | 4 | Lila MD | | | time per | | | BISULFATE | | | | | day | | | | | | + + + + + + + + | LANTUS 100 | 25 units | | | INSULIN | 7048426594 | Laurance W | | UNIT/ML | two times | | | GLARGINE | 3 | Lila MD | | SOLN | per day | | | | | | + + + + + + + + | LASIX 80 | 1 tab by | | | FUROSEMIDE | 1049397669 | Laurance W | | MG TABS | mouth one | | | | 5 | Lila MD | | | time per | | | | | | | | day | | | | | | + + + + + + + + | FUROSEMIDE | 1 tab one | | | FUROSEMIDE | 5430335099 | Laurance W | | 40 MG | time per | | | | 0 | Lila MD | | TABS | day | | | | | | + + + + + + + + | BUSPIRONE | 1 TAB | | | BUSPIRONE | 2910702147 | Laurance W | | HCL 7.5 MG | three | | | HCL | 5 | Lila MD | | TABS | times per | | | | | | | | day | | | | | | + + + + + + + + | COLACE 100 | 1 tab by | | | DOCUSATE | 9826690453 | Laurance W | | MG CAPS | mouth | | | SODIUM | 0 | Lila MD | | | daily at | | | | | | | | bedtime | | | | | | + + + + + + + + | BACTRIM DS | 1 by mouth | | | TRIMETHOPR | 6154436247 | Laurance W | | 800-160 | twice a | | | IM-SULFAME | 1 | Lila MD | | MG TABS | day for 3 | | | THOXAZOLE | | | | | days | | | | | | + + + + + + + + | LYRICA 50 | Take 1 tab | | | PREGABALIN | 3272320087 | Laurance W | | MG CAPS [...] tab one | | | METFORMIN | 3943965181 | Laurance W | | XR 500 MG | time per | | | HCL | 0 | Lila MD | | [id number] | day | | | | | | + + + + + + + + | NYSTATIN-T | Apply thin | | | NYSTATIN-T | 2593331848 | Laurance W | | RIAMCINOLO | layer to | | | RIAMCINOLO | 0 | Lila MD | | NE | affected | | | NE | | | | 905614-9.1 | area BID | | | | | | | UNIT/GM-% | prn for | | | | | | | CREA | itching | | | | | | + + + + + + + + | CILOSTAZOL | 1 tab two | | | CILOSTAZOL | 4341166212 | Laurance W | | 100 MG | times per | | | | 1 | Lila MD | | TABS | day | | | | | | + + + + + + + + | OMEPRAZOLE | Take one | | | OMEPRAZOLE | 5560672788 | Laurance W | | 40 MG [...] take 1 | | | ATORVASTAT | 0412992934 | Laurance W | | MG TABS | tablet by | | | IN CALCIUM | 0 | Lila MD | | | mouth | | | | | | | | daily | | | | | | + + + + + + + + | MECLIZINE | 1 tab | | | MECLIZINE | 6749856719 | Laurance W | | HCL 25 MG | three | | | HCL | 1 | Lila MD | | TABS | times per | | | | | | | | day | | | | | | + + + + + + + + | LANTUS 100 | 56 units | | | INSULIN | 1843991223 | Laurance W | | UNIT/ML | in the | | | GLARGINE | 3 | Lila MD | | SOLN | morning | | | | | | + + + + + + + + | ONDANSETRO | 1 tab | | | ONDANSETRO | 0993589476 | Bailey W | | N HCL 4 MG | every 4 | | | N HCL | 3 | Lila MD | | TABS | hours | | | | | | + + + + + + + + | PIOGLITAZO | Take 1 tab | | | PIOGLITAZO | 2865624654 | Franciscoance W | | NE HCL 15 | by mouth | | | NE HCL | 0 | Lila MD | | MG TABS | one time | | | | | | | | per day | | | | | | + + + + + + + + | RELION | Use to | | | GLUCOSE | 9494458165 | Bailey W | | BLOOD | test BG | | | BLOOD | 4 | Lila MD | | GLUCOSE | one time | | | | | | | TEST STRP | per day | | | | | | + + + + + + + + | GABAPENTIN | Take 2 | | | GABAPENTIN | 6450062393 | Bailey W | | 300 MG [...] TAB one | | | VALSARTAN | 6536631131 | Bailey W | | 160 MG | time per | | | | 2 | Lila MD | | TABS | day | | | | | | + + + + + + + + | LYRICA 50 | TAKE ONE | | | PREGABALIN | 8066929865 | Bailey W | | MG CAPS [...] 0.2 ml | | | EXENATIDE | 1717113608 | Laurance W | | MCG PEN 5 | injection | | | | 1 | Lila MD | | MCG/0.02ML | two times | | | | | | | SOPN | per day | | | | | | + + + + + + + + | VICTOZA 18 | 1.2 mg | | | LIRAGLUTID | 5185762301 | Laurance W | | MG/3ML | injected | | | E | 3 | Lila MD | | SOPN | martin | | | | | | + + + + + + + + | KEFLEX 500 | one po TID | | | CEPHALEXIN | 1082161739 | Susanna | | MG CAPS | | | | | 0 | Gianfranco MD | + + + + + + + + | FLUCONAZOL | take one | | | FLUCONAZOL | 2247895483 | Susanna | | E 150 MG | tablet PO | | | E | 0 | Gianfranco MD | | TABS | x 1 repeat | | | | | | | | in 3 days | | | | | | + + + + + + + + | LYRICA 50 | 1 tab | | | PREGABALIN | 4433146540 | Laurance W | | MG CAPS | three | | | | 3 | Lila MD | | | times per | | | | | | | | day | | | | | | + + + + + + + + | GABAPENTIN | Take 2 | | | GABAPENTIN | 0506851320 | Laurance W | | 300 MG [...] tab one | | | DULOXETINE | 2803908414 | Laurance W | | HCL 30 MG | time per | | | HCL | 6 | Lila MD | | CPEP | day | | | | | | + + + + + + + + | RIOMET 500 | 10ml's two | | | METFORMIN | 5561112896 | Laurance W | | MG/5ML | [...] TAB one | | | VALSARTAN | 4994847791 | Laurance W | | MG TABS | time per | | | | 0 | Lila MD | | | day | | | | | | + + + + + + + + | MECLIZINE | One tab by | | | MECLIZINE | 6711772444 | Laurance W | | HCL 25 [...] take 2 | | | GABAPENTIN | 7579893951 | Laurance W | | 300 MG [...] tab one | | | VALSARTAN | 5896532492 | Laurance W | | MG TABS | time per | | | | 4 | Lila MD | | | day | | | | | | + + + + + + + + | VICTOZA 18 | 0.6 mg | | | LIRAGLUTID | 4272240705 | Laurance W | | MG/3ML | [...] tab one | | | SITAGLIPTI | 0808669354 | Laurance W | | 100 MG | time per | | | N | 8 | Lila MD | | TABS | day | | | PHOSPHATE | | | + + + + + + + + | GABAPENTIN | 2 tabs two | | | GABAPENTIN | 4317809014 | Laurance W | | 300 MG | times per | | | | 0 | Lila MD | | CAPS | day | | | | | | + + + + + + + + | DIOVAN 160 | 1 by mouth | | | VALSARTAN | 7533887471 | Laurance W | | MG TABS | every day | | | | 0 | Lila MD | + + + + + + + + | GABAPENTIN | 1 tab at | | | GABAPENTIN | 9633528491 | Laurance W | | 100 MG [...] 28 units | | | INSULIN | 6275456028 | Laurance W | | UNIT/ML | two times | | | GLARGINE | 0 | Lila MD | | SOLN | per day | | | | | | + + + + + + + + | LISINOPRIL | take 1 | | | LISINOPRIL | 0935265315 | Rogers | | 20 MG | tablet by | | | | 1 | Laith LUIS | | TABS | mouth | | | | | | | | daily | | | | | | + + + + + + + + | LANTUS 100 | 56 units | | | INSULIN | 9883645444 | Bailey W | | UNIT/ML | daily | | | GLARGINE | 0 | Lila LUIS | | SOLN | | | | | | | + + + + + + + + | GABAPENTIN | 1 by mouth | | | GABAPENTIN | 1714973249 | Bailey W | | 100 MG [...] | One | | | ERGOCALCIF | 6644582432 | Laurance W | | QUANG 19154 | capsule by | | | QUANG [...] by mouth | | | LISINOPRIL | 3859966542 | Laurance W | | 5 MG TABS | one time | | | | 0 | Lila MD | | | per day | | | | | | + + + + + + + + | RIOMET 500 | 10ml QAM | | | METFORMIN | 6167248216 | Laurance W | | MG/5ML | Liquid due | | | HCL | 2 | Lila MD | | SOLN | to | | | | | | | | Dysphagia | | | | | | + + + + + + + + | COLACE 100 | one tablet | | | DOCUSATE | 2303201087 | Laurance W | | MG CAPS | by mouth | | | SODIUM | 0 | Lila MD | | | at bedtime | | | | | | + + + + + + + + | MECLIZINE | 1 by mouth | | | MECLIZINE | 5905272848 | Laurance W | | HCL 25 [...] one tablet | | | METFORMIN | 0313396354 | Laurance W | | HCL 1000 | by mouth | | | HCL | 0 | Lila MD | | MG TABS | twice a | | | | | | | | day | | | | | | + + + + + + + + | ASPIRIN 81 | 1 by mouth | | | ASPIRIN | 6995365100 | Bailey W | | MG TABS | every day | | | | 5 | Lila MD | + + + + + + + + | GABAPENTIN | one tablet | | | GABAPENTIN | 3932977765 | Bailey W | | 100 MG [...] | | | | | | | PRIMARY SPECIAL EDUCATOR | + + + + + + [...] +--------+ +---+---+---+ + | | ESM_RR | [id number] | | | B | e-scripts | [...] | | | | | | | [place]*` | | | | | | | | 9460041905 | | | | | | | | `[id number] | | | | | | | [...] +---+---+---+ + + + | Rx Refill: Lorix Request for RELION PEN [id number] MIS | + + + +--------+ +---+---+---+ + | | ESM_RR | [id number] | | | B | e-scripts | | | | 9`RELION | | | | messenger | | | | PEN | | | | refill | | | | [id number] | | | | request | | [...] | | | | | | | [id number] | | | | | | | | `[id number] | | | | | | | | 34`888655` | | | | | | | | RELION PEN | | | | | | | | [id number] | | | | | | | [...] +--------+ +---+---+---+ + | | ESM_RR | [id number] | | | B | e-scripts | [...] | | | | | | | [place]*` | | | | | | | | 2617693953 | | | | | | | | `[id number] | | | | | | | [...] +--------+ +---+---+---+ + | | ESM_RR | [id number] | | | B | e-scripts | [...] | | | | | | | [place]*` | | | | | | | | [id number] | | | | | | | | `[id number] | | | | | | | [...] Rx Refill: eRx Request for RELION PEN [id number] MIS | + + + +--------+ +---+---+---+ + | | ESM_RR | [id number] | | | B | e-scripts | | | | 0`RELION | | | | messenger | | | | PEN | | | | refill | | | | [id number] | | | | request | | [...] | | | | | | | 8309742706 | | | | | | | | `[id number] | | | | | | | | 34`344436` | | | | | | | | RELION PEN | | | | | | | | [id number] | | | | | | | [...] +--------+ +---+---+---+ + | | ESM_RR | [id number] | | | B | e-scripts | [...] | | | | | | | 6144579653 | | | | | | | | `[id number] | | | | | | | [...] +--------+ +---+---+---+ + | | ESM_RR | [id number] | | | B | e-scripts | [...] | | | | | | | `0`09/14/2 | | | | | | | | 017`09/14/ | | | | | | | | 2016`Madisyn | | | | | | | | rt - | | | | | | | | [place]*` | | | | | | | | 4485082753 | | | | | | | | `[id number] | | | | | | | | 59`266430` | | | | | | | [...] +--------+ +---+---+---+ + | | ESM_RR | [id number] | | | B | e-scripts | [...] | | | | | | | 8545120104 | | | | | | | | `[id number] | | | | | | | [...] +--------+ +---+---+---+ + | | ESM_RR | [id number] | | | B | e-scripts | [...] | | | | | | | 5173406465 | | | | | | | | `[id number] | | | | | | | [...] +--------+ +---+---+---+ + | | ESM_RR | [id number] | | | B | e-scripts | [...] | | | | | | | [id number] | | | | | | | | `[id number] | | | | | | | [...] + + +---+ +---+ + | | TIFFANYK | Non | | Non | | [...] + + + +---+---+---+ + | | NigelZ-GE-UNK | See Report | | | | [...] +--------+ +---+---+---+ + | | ESM_RR | [id number] | | | B | e-scripts | [...] | | | | | | | 1103491537 | | | | | | | | `[id number] | | | | | | | [...] | Rx Refill: eRx Request for INSULIN [id number] MIS | + + + +--------+ +---+---+---+ + | | ESM_RR | [id number] | | | B | e-scripts | | | | 7`INSULIN | | | | messenger | | | | UUDI7FR/29 | | | | refill | | [...] | | | | | | | [id number] | | | | | | | | `[id number] | | | | | | | | 01`20824`I | | | | | | | | NSULIN | | | | | | | | FWBL3SE/29 | | | | | | | [...] +--------+ +---+---+---+ + | | ESM_RR | [id number] | | | B | e-scripts | [...] | | | | | | | [place]*` | | | | | | | | 6656792588 | | | | | | | | `[id number] | | | | | | | | 568`64551` | | | | | | | [...] +--------+ +---+---+---+ + | | ESM_RR | [id number] | | | B | e-scripts | [...] | | | | | | | 8211990179 | | | | | | | | `[id number] | | | | | | | [...] | | | Dietary | | | [employer] | | | | | management | [...] | 03:30 PM | David Cornejo MD [facility], | | | | [address] | | | [address], [place], [address], | | | | | + + + + | Referral | | Physical Therapy Evaluation | | | | [facility], [address] | | [address] | | | | [place], [place], [address] | | | | | | | | | + + + + | Referral | | Physical Therapy Evaluation | | | | [facility], [address] | | | | [address] | | | | [place], [place], [address] | | | | | | | | | + + + + | Referral | | GI Consult | | | | Emeka Clark MD, [address] | | | | [employer] [address], | | | | [place], [address] | | | | | + + + + | Referral | | GI Consult | | | | Emeka Clark MD, [address] | | | | [employer] [address], | | | | [place], [address] | | | | | + + + + | Referral | | Nephrology Evaluation | | | | Anisa Reeves, | | | | [address] [facility] | | | | [address] [place] [address], [address] | | | | | | | | | + + + + | Referral | | Nephrology Evaluation | | | | Larry Galo, | | | | [address], | | | | [address], [place], [address] | | | | | | | | | + + + + | Referral | | Surgical Consult | | | | Jesus Long, [address] | | | [address], | | | | [place], [address] | | | | | + + + + | Referral | | Surgical Consult | | | | Jesus Long, [address] | | | [address], | | | | [place], [address] | | | | | + + + + | Referral | | Endocrinology Consult | + + + + | Referral | | Podiatry Consult | | | | Kali Palacio, [address] | | | | [place], | | | | [place], [address] | | | | | + + + + | Referral | | Nephrology Evaluation | | | | Larry Galo, | | | | [address], | | | | [address], [place], [address] | | | | | | | | | + + + + | Referral | | Podiatry Consult | | | | Kali Palacio, [address] | | | | [place], | | | | [place], [address] | | | | | + + + + | Referral | | Nephrology Evaluation | | | | Larry Galo, | | | | [address], | | | | [address], [place], [address] | | | | | | | | | + + + + | Referral | | Neurology Consult | | | | Ontodia Gen Phone #, | | | | [phone] | | [address], [place], [address] | | | | | + + + + | Referral | | Neurology Consult | | | | Ontodia Gen Phone #, | | | | [address] [facility] | | | | [address], [place], [address] | | | | | + + + + | Referral | | MRA Head-WO Con | | | | Dian Atkins, [address] | | | [address], | | | | [place], [address] | | | | | + + + + | Referral | | MRA Head-WO Con | | | | Dian Atkins, [address] | | | | [address] [facility], | | | | [place], [address] | | | | | + + + + | Referral | | MRA Head-WWO Con | | | | Dian Atkins, [address] | | | | [address], | | | | [place], [address] | | | | | + + + + | Referral | | MRA Head-WWO Con | | | | Dian Atkins, [address] | | | | [address], | | | | [place], [address] | | | | | + + + + +---+ + | | Referral excluded from report: | +---+ + + + + + | Referral | | Physical Therapy Evaluation | | | | [facility], [address] | | | | [address] | | | | [address], [place], [address] | | | | | | | | | + + + + | Referral | | Neurology Consult | | | | MD August Bourne, [address] | | | | [address] [place], | | | | [place], [address] | | | | | + + + + | Referral | | Neurology Consult | | | | Rogers Ozuna, [address] | | | | [address] [place], | | | | [place], [address] | | | | | + + + + | Referral | | Cardiology Consult | | | | MD Pelon Fay, | | | | [address] | | | | [address], [place], [address] | | | | | | | | | + + + + | Referral | | GI Consult | | | | [address] | | | | [address], [place], [address] | | | | | | | | | + + + + | Referral | | Physical Therapy Evaluation | | | | [facility], [address] | | | | [address] | | | | [address], [place], [address] | | | | | | | | | + + + + | Referral | | Diabetic Education - | | | | Individual | | | | [facility], | | | | [address], | | | | [place], [address] | | | | | + + + + | Referral | | GI Consult | | | | [address] [facility] | | | | [address], [place], [address] | | | | | | | | | + + + + | Referral | | US Soft Tissue Head/Neck | | | | Exam Dian | | | | Scheduling, [address] | | | | [address], [place], [place], | | | | [address] | | | | | + + + + | Referral | | Neurology Consult | | | | [place] [facility] | | | | Clinic, [address] [facility], | | | | [place], [address] | | | | | + + + + | Referral | | VL Carotid-Cerebral Duplex | | | | Dian | | | | [address] | | | | [address], [place], [place], | | | | [address] | | | | | + + + + | Referral | | Holter Monitor | | | | Dian Atkins, [address] | | | | [address], | | | | [place], [address] | | | | | + + [...] Microalb/Creat Ratio UR, | | | | [place] | + + + + | Pending [...] | + + + + + | CPT-55696 | IV infusion -1st hr | | | | | (Rehydration) | | | + + + + + | CPT-59221 | Glucose by monitor | | | + + + + + | CPT-82648 | UA Dipstick | | | + + + + + | CPT-59812 | UA Dipstick | | | + + + + + | CPT-65435 | Initial Psych | | | | | Evaluation | | | + + + + + | CPT-05974 | [facility], [address] or | | | | | more [address] | | | + + + + [...] | + + + + + | CPT-36718 | [facility] Skin Lesions | | | | | [address] | | | + + + + + | CPT-51981 | UA Dipstick | | | + + + + + | CPT-86702 | [facility], [address] or | | | | | more [address] | | | + + + + [...] | + + + + + | CPT-02888 | [facility], [address] | | | | | more [address] | | | + + + + [...] | + + + + + | CPT-75002 | MRA Head-WWO Con | | | + + + + + +---+ + | | Order excluded from report: | +---+ + + + + + + | CPT-33202 | Physical Therapy | | | | | Evaluation | | | + + + + + | [id number] | [facility] Generic Patient | | | | | Encounter Service | | | | | (from patch) | | | + + + + + | [id number] | [Recorded for CQM] | | | | | Documentation of | | | | | current medications | | | | | (procedure) | | | + + + + + | [id number] | [Recorded for CQM] | | | | | Documentation of | | | | | current medications | | | | | (procedure) | | | + + + + + | [id number] | [Recorded for CQM] | | | | | Documentation of | | | | | current medications | | | | | (procedure) | | | + + + + + | [id number] | [Recorded for CQM] | | | | | Documentation of | | | | | current medications | | | | | (procedure) | | | + + + + + | FREE T4 44371 | T4 Free | | | + + + + + | T3 FREE 85165 | T3 Free | | | + + + + + | TSH 60779 | TSH | | | + + + + + | GLYCO HGB 78072 | HgbA1C | | | + + + + + | [id number] | [facility] Generic Patient | | | | | Encounter Service | | | | | (from patch) | | | + + + + + | [id number] | [Recorded for [facility]] | | | | | Documentation of | | | | | current medications | | | | | (procedure) | | | + + + + + | [id number] | MU Generic Patient | | | | | Encounter Service | | | | | (from patch) | | | + + + + + | CPT-07448 | EKG- tracing with | | | | | report (70211) | | | + + + + + | [id number] | [Recorded for CQM] | | | | | Documentation of | | | | | current medications | | | | | (procedure) | | | + + + + + | [id number] | MU Generic Patient | | | | | Encounter Service | | | | | (from patch) | | | + + + + + | CPT-Troponin l | Troponin I | | | | 61765 | | | | + + + + + | [id number] | [Recorded for CQM] | | | | | Documentation of | | | | | current medications | | | | | (procedure) | | | + + + + + | CPT-78835 | Physical Therapy | | | | | Evaluation | | | + + + + + | CPT-G8427 | Current Medications | | | | | Documented | | | + + + + + | [id number] | [Recorded for CQ] | | | | | Documentation of | | | | | current medications | | | | | (procedure) | | | + + + + + | CPT-G8427 | Current Medications | | | | | Documented | | | + + + + + | [id number] | [Recorded for CQM] | | | [...] + + + + | CHEM PROF 09947 | CMP (Comprehensive | | | | | Metabolic Panel) | | | + + + + + | GLYCO HGB 81396 | HgbA1C | | | + + + + + | CPT-Q2037 | Fluvirin | | | | | (Influenza) | | | | | Med/Atrio | | | + + + + + | RISK 33151 | Lipid Profile | | | + + + + + | VIT D HYDR 94771 | Vit D, 25 hydroxy | | | + + + + + | CYC CITRU 83965 | Cyclic | | | | | Citrullinated Pept | | | | | IgG | | | + + + + + | RA QUANT 98705 | Rheumatoid Factor | | | | | (quant) | | | + + + + + | TSH 87771 | TSH | | | + + + + + | IVANA 23873 | IVANA | | | + + + + + | GLYCO HGB 74578 | HgbA1C | | | + + + + + | CPT-39046 | EKG- tracing with | | | | | report ([id number]) | | | + + + + + | CPT-34341 | ANDRE | | | + + + + + | 08228 03532 | Holter Monitor 48H | | | | | Panel | | | + + + + + | 36769 26628 | Holter Monitor 72H | | | | | Panel | | | + + + + + | CPT-16646 | Barium Swallow MBS | | | | | with Speech | | | + + + + + | 69732 04982 | US Abdomen-Cmplt | | | | | and Pelvic-Lmtd | | | + + + + + | CPT-72171 | US Soft Tissue | | | | | Head/Neck Exam | | | + + + + + | CPT-27757 | Motor nerve testing | | | | | - each nerve | | | + + + + + | RISK 51676 | Lipid Profile | | | + + + + + | ESR 12796 | Sedimentation Rate | | | | | (ESR) | | | + + + + + | SPEP IF 82074 | SPEP with JESÚS if | | | | | indicated | | | + + + + + | B12+FOLATE MULTIPLE | B-12 - Folate | | | + + + + + | PFA 76436 | Platelet Function | | | | | Assay | | | + + + + + | 38950 | MRA Head-WO Con | | | + + + + + | 61415 | MR Head-WO Con | | | + + + + + | CPT-68308 | VL Carotid-Cerebral | | | | | Duplex | | | + + + + + | CPT-93147 | Holter Monitor | | | + + + + + | D DIMER 80699 | D-dimer (tyrese) | | | + + + + + | 61302 | CT Head-WWO Con | | | + + + + + | VIT D HYDR 03162 | Vit D, 25 hydroxy | | | + + + + + | TSH 46556 | TSH | | | + + + + + | B12+FOLATE MULTIPLE | B-12 - Folate | | | + + + + + | UA 39368 | Urinalysis | | | + + + + + | CHEM PROF 89660 | CMP (Comprehensive | | | | | Metabolic Panel) | | | + + + + + | CBC 08198 | CBC w/ Diff - w/ | | | | | platelets | | | + + + + + | GLYCO HGB 65268 | HgbA1C | | | + + + + + | TSH 20938 | TSH | | | + + + + + | VIT D HYDR 03904 | Vit D, 25 hydroxy | | [...]
--- OUTSIDE RECORDS SUMMARY | ~2019-03-25 | XMS ---
Demographics + + + | Address | [address] [place] [address] | | | [place] [address] | + + + | Home Phone | | + + + | Preferred Language | Unknown | + + + | Marital Status | S | + + + | Methodist Affiliation | Unknown | + + + | Race | White | + + + | Ethnic Group | or | + + + Author + + + | Author | [facility] | + + + | Organization | [facility] | + + + | Address | [address] | | | [place] [address] | + + + | Phone | Unavailable | + + + Care Team Providers + + + + | Care Florist Helper Name | Role | Phone | + + + + Unavailable | Unavailable | + + + + Reason for Visit + + + | Reason For Visit Description | Start Date | + + + | General Notes | | + + + | | Primary Care Provider: Ankur GORDON | | | Chief Complaint: Right knee pain | | | History of Present Illness RADHA Mclean | | | ADALGISA is a 72 year old female who | | | presents today for follow up on her right | | | knee pain. Symptoms have been present for | | | several months. There was no specific | | | injury event. Patient received a right | | | intra-articular knee injection on | | | 12/26/2017 with good pain relief for about | | | 3-4 weeks. Patient is here today to | | | figure out "what is wrong with her knee". | | | Current Medications BASAGLAR KWIKPEN | | | 100 UNIT/ML SUBCUTANEOUS SOLUTION | | | PEN-INJEC (INSULIN GLARGINE) 68 Units | | | every morning (34 units on each side); | | | Route: SUBCUTANEOUS IRBESARTAN 300 MG | | | ORAL TABLET (IRBESARTAN) Take one tablet | | | daily; Route: ORAL LIPITOR 20 MG ORAL | | | [...] before breakfast as needed | | | NYSTATIN-TRIAMCINOLONE 142113-2.1 | | | UNIT/GM-% EXTERNAL CREAM | | | (NYSTATIN-TRIAMCINOLONE) Apply thin layer | | | to affected area BID prn for itching | | | LASIX 80 MG ORAL TABLET (FUROSEMIDE) 1 tab | | | by mouth one time per day in the AM; | | | Route: ORAL POTASSIUM CHLORIDE ER 10 MEQ | | | ORAL CAPSULE EXTENDED RELEASE (POTASSIUM | | | CHLORIDE) Take one cap daily in the AM; | | | Route: ORAL VITAMIN D 1000 UNIT ORAL | | | TABLET (CHOLECALCIFEROL) Take one tablet | | | daily in the AM; Route: ORAL COLACE 100 | | | MG ORAL CAPSULE (DOCUSATE SODIUM) 1 pill | | | twice daily for soft stools; Route: ORAL | | | MECLIZINE HCL 25 MG ORAL TABLET (MECLIZINE | | | HCL) One tab by mouth three times per | | | day; Route: ORAL NOVOLOG 100 UNIT/ML | | | SUBCUTANEOUS [...] | | | p.o. q.a.m.; Route: ORAL PANTOPRAZOLE | | | SODIUM 40 MG ORAL TABLET DELAYED RELEASE | | | (PANTOPRAZOLE SODIUM) Take one tablet by | | | mouth once daily; Route: ORAL CLONAZEPAM | | | 0.5 MG ORAL TABLET (CLONAZEPAM) Take one | [...] | | ONCE DAILY IN THE MORNING Current | | | Allergies VICODIN (Critical) MORPHINE | | | (Critical) * CIPRO IV (Critical) * | | | MECLIZINE (Moderate) LISINOPRIL | | | (Moderate) Review of Symptoms | | | Positive for joint weakness or stiffness. | | | All other systems are reviewed and are | | | negative. Medical History Type 2 | | | diabetes mellitus, probably diagnosed in | | | her 40s. Initial oral agent therapy with | | | Amaryl and possibly metformin, details | | | somewhat vague. She has been on insulin | | | for many years, currently with | | | Lantus/Basaglar and a.c. meal Humalog | | | Peripheral neuropathy, painful, initially | | | treated with gabapentin but now reasonable | | | results with p.r.n. Lyrica Diabetic | | | retinopathy with multiple interventions | | | Diabetic nephropathy with renal | | | insufficiency Hypertension, treated | | | Hyperlipidemia Hx of abnormal pap Anemia | | | Swelling Feet/Ankles Stroke Memory | | | loss Surgical History 3 surgeries | | | b/l eye Bladder lift Hysterectomy rt | | | knee repair Low back x 2 colonscopy | | | 05/10, Dr. Clark, repeat 2019 Family | | | History: Family History reviewed during | | | this update. 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 | | | .............................Edna Hope | | | [facility] September 23, 2017 4:25 PM | | | Physical Exam Vitals: Wt: 183.8 lbs | | | P: 71 O2 sat. at rest is 98% on RA BP: | | | 142/88 mm Hg Calculated BMI: 36.03 | | | General appearnce- well-nourished | | | female, not in aparrent distress. | | | Neurological- cranial nerve II- XII | | | grossly intact, Psychiatric-mood and | | | affect normal. alert and well oriented to | | | time place person and circumstances . | | | Normal judgment and insight. Normal | | | recent and remote memory. Skin- no | | | abnormal skin lesions are subcutaneous | | | nodules in inspection or palpation. | | | Musculoskeletal- Right knee exam - | | | Inspection -no asymmetry of the knees, | | | mild swelling over the medial aspect | | | erythema, deformity of the joint, or | | | varus/valgus deformity, no scars, no fixed | | | flexion deformity, no obvious muscle | | | wasting Palpation-no crepitus with knee | | | flexion and extension, no swelling with | | | milking, no increased temperature compared | | | to contralateral side, no ecchymosis or | | | bruising, tenderness over the joint line | | | both medially and laterally and | | | generalized tenderness over the knee. | | | Range of motion Flexion 130 , pain with | | | terminal flexion,, extension 0 Special | | | tests Valgus stress negative, varus | | | stress negative. Anterior drawer test | | | -negative Heber's negative posterior | | | drawer test-negative posterior sag | | | test-negative Jointline tenderness | | | positive Roxane's test positive | | | Assessment & Plan This patient is a | | | very pleasant female with right knee pain | | | secondary to moderate degenerative changes | | | especially involving the medial | | | component. We discussed different | | | conservative management options. | | | Previously done right intra-articular knee | | | injection has been beneficial, but short | | | term. The patients pain is not too severe | | | at this time to consider another injection | | | or surgical options at this time. In the | | | meantime, patient will apply Voltaren Gel | | | as needed for pain. Follow up p.r.n. | | | This note was transcribed using [employer] | | | Speech Recognition software. As a result, | | | there may be grammatical and spelling | | | errors that are unintended. Every attempt | | | is made to have correct dictation. If | | | there are any questions or major errors, | | | please contact our office. | | | Meaningful Use Med List: (Reconciled) | | | | | | .......................................... | | | .........................Beatriz Galindo | | | ROT February 11, 2018 1:52 PM | | | | + + + Assessments No information available. Chief Complaint No information available. History of Past Illness No information available.
--- OUTSIDE RECORDS SUMMARY | ~2019-03-25 | XMS | Clinical Summary ---
Demographics + + + | Address | [facility] [address] | | | [place] [address] | + + + | Home Phone | | + + + | Preferred Language | Unknown | + + + | Marital Status | D | + + + | Sikhism Affiliation | Unknown | + + + | Race | Unspecified | + + + | Ethnic Group | or | + + + Author + + + | Author | [facility] | + + + | Organization | [facility] | + + + | Address | [address] | | | [place] [address] | + + + | Phone | Unavailable | + + + Care Team Providers + + + + | Care Industrial Economist Name | Role | Phone | + [...] fied | | +---------+---------+---------+---------+---------+---------+---------+---------+---------+ | XEROSIS | [id number] | | Active | | Hector | [...] fied | | +---------+---------+---------+---------+---------+---------+---------+---------+---------+ | DIABETE | [id number] | | Active | | David | [...] s | | +---------+---------+---------+---------+---------+---------+---------+---------+---------+ | NAUSEA | [id number] | | Resolve | | Geetha | | Nausea | | | ALONE | 07 | /13 | d | /13 | [place] | | | | | | (SNOMED | | | | [facility] | | | | | | CT) | | | | | | | | +---------+---------+---------+---------+---------+---------+---------+---------+---------+ | VACCINA | [id number] | | Resolve | | Geetha | | Medicat | | | TION | 02 | / | d | /03 | [place] | | ion | | | FOR [...] | | | +---------+---------+---------+---------+---------+---------+---------+---------+---------+ | FLANK | [id number] | | Active | | Geetha | | Flank | | | PAIN | 05 | /01 | | /01 | [place] | | pain | | | | (SNOMED | | | | [facility] | | | | | | CT) | | | | | | | | +---------+---------+---------+---------+---------+---------+---------+---------+---------+ | VACCINA | [id number] | | Removed | | [place] | | Medicat | | | TION | 02 | | | /03 | [place] | | ion | | | FOR | (SNOMED | | | | DNP MANUFACTURING TECHNOLOGY ANALYST | | given | | | STREP [...] | | | +---------+---------+---------+---------+---------+---------+---------+---------+---------+ | OSTEOAR | [id number] | | Active | | Edna | | Osteoar | | | THRITIS | 07 | /16 | | /18 | [place] | | thritis | | | , KNEE, | (SNOMED | | | | [facility] | | of | | | RIGHT | CT) | | | | | | knee | | +---------+---------+---------+---------+---------+---------+---------+---------+---------+ | CONSTIP | [id number] | | Active | | Ambrose | | Constip | | | ATION | 8 | /13 | | /13 | [place] | | ation | | | | (SNOMED | | | | DNP MANUFACTURING TECHNOLOGY ANALYST | | | | | | CT) | | | | | | | | +---------+---------+---------+---------+---------+---------+---------+---------+---------+ | TYPE 2 | E11.21 | | Active | | [place] | | Type 2 | | | DIABETE | (ICD-10 | /19 | | /19 | [place] | | diabete | | | S | -CM) | | | | DNP MANUFACTURING TECHNOLOGY ANALYST | | s | | | MELLITU [...] athy | | +---------+---------+---------+---------+---------+---------+---------+---------+---------+ | DIABETE | [id number] | | Inactiv | | [place] | | Type 2 | | | S | 6 | /08 | e | /08 | [place] | | diabete | | | MELLITU | (SNOMED | | | | DNP MANUFACTURING TECHNOLOGY ANALYST | | s | | | S, TYPE | CT) | | | | | | mellitu | | | II, ON | | | | | | | s | | | | | | | | | | | | | INSULIN | | | | | | | | | +---------+---------+---------+---------+---------+---------+---------+---------+---------+ | DEHYDRA | [id number] | | Resolve | | [facility] | | Dehydra | | | TION | 6 | /08 | d | /08 | [place] | | tion | | | | (SNOMED | | | | DNP MANUFACTURING TECHNOLOGY ANALYST | | | | | | CT) | | | | | | | | +---------+---------+---------+---------+---------+---------+---------+---------+---------+ | DIZZINE | [id number] | | Inactiv | | [place] | | Dizzine | | | SS | 03 | /08 | e | /08 | [place] | | ss | | | | (SNOMED | | | | DNP MANUFACTURING TECHNOLOGY ANALYST | | | | | | CT) | | | | | | | | +---------+---------+---------+---------+---------+---------+---------+---------+---------+ | ANEMIA | [id number] | | Inactiv | | [place] | | Anemia | | | | 00 | /10 | e | /10 | [place] | | | | | | (SNOMED | | | | DNP MANUFACTURING TECHNOLOGY ANALYST | | | | | | CT) | | | | | | | | +---------+---------+---------+---------+---------+---------+---------+---------+---------+ | CONSTIP | [id number] | | Inactiv | | Amb[place] | | Constip | | | ATION | 8 | / | e | /13 | [place] | | ation | | | | (SNOMED | | | | DNP MANUFACTURING TECHNOLOGY ANALYST | | | | | | CT) | | | | | | | | +---------+---------+---------+---------+---------+---------+---------+---------+---------+ | SYNCOPE | [id number] | | Resolve | | [place] | | Syncope | | | | 07 | | d | / | [place] | | | | | | (SNOMED | | | | DNP MANUFACTURING TECHNOLOGY ANALYST | | | | | | CT) | | | | | | | | +---------+---------+---------+---------+---------+---------+---------+---------+---------+ | DYSPHAG | R13.10 | | Resolve | | Ambrose | | Dysphag | | | IA | (ICD-10 | | d | | [place] | | ia, | | | UNSPECI | -CM) | | | | DNP MANUFACTURING TECHNOLOGY ANALYST | | unspeci | | | FIED | | | | | | | fied | | +---------+---------+---------+---------+---------+---------+---------+---------+---------+ | PARESTH | [id number] | | Inactiv | | Ambrose | | Paresth | | | ESIA, | | | e | / | [place] | | esia of | | | HANDS | (SNOMED | | | | DNP MANUFACTURING TECHNOLOGY ANALYST | | hand | | | | CT) | | | | | | | | +---------+---------+---------+---------+---------+---------+---------+---------+---------+ | DIABETI | [id number] | | Inactiv | | Ambrose | | Diabeti | | | C | | | e | | [place] | | c | | | PERIPHE | (SNOMED | | | | DNP MANUFACTURING TECHNOLOGY ANALYST | | periphe | | | RAL [...] | -CM) | | | | DNP MANUFACTURING TECHNOLOGY ANALYST | | unspeci | | | FIED | | | | | | | fied | | +---------+---------+---------+---------+---------+---------+---------+---------+---------+ | VAGINIT | [id number] | | Resolve | | [place] | | Vaginit | | | IS | 1 | /31 | d | /31 | [place] | | is | | | | (SNOMED | | | | DNP MANUFACTURING TECHNOLOGY ANALYST | | | | | | CT) | | | | | | | | +---------+---------+---------+---------+---------+---------+---------+---------+---------+ | DYSURIA | [id number] | | Resolve | | [place] | | Dysuria | | | | 1 | /31 | d | /31 | [place] | | | | | | (SNOMED | | | | DNP MANUFACTURING TECHNOLOGY ANALYST | | | | | | CT) | | | | | | | | +---------+---------+---------+---------+---------+---------+---------+---------+---------+ | EDEMA | [id number] | | Inactiv | | [place] | | Edema | | | | 08 | /15 | e | /11 | [place] | | | | | | (SNOMED | | | | DNP MANUFACTURING TECHNOLOGY ANALYST | | | | | | CT) | | | | | | | | +---------+---------+---------+---------+---------+---------+---------+---------+---------+ | RENAL | [id number] | | Inactiv | | [place] | | Acute | | | FAILURE | 1 | /02 | e | /02 | [place] | | renal | | | , ACUTE | (SNOMED | | | | DNP MANUFACTURING TECHNOLOGY ANALYST | | failure | | | | CT) | | | | | | | | | | | | | | | | syndrom | | | | | | | | | | e | | +---------+---------+---------+---------+---------+---------+---------+---------+---------+ | DIABETE | [id number] | | Inactiv | | Ambrose | | Periphe | | | S | 02 | /01 | e | /01 | [place] | | ral | | | MELLITU | (SNOMED | | | | DNP MANUFACTURING TECHNOLOGY ANALYST | | vascula | | | S, [...] | -CM) | | | | DNP MANUFACTURING TECHNOLOGY ANALYST | | s | | | DIABETI [...] ropathy | | +---------+---------+---------+---------+---------+---------+---------+---------+---------+ | LOCALIZ | [id number] | | Resolve | | [place] | | Disorde | | | ED | 09 | /30 | d | /30 | [place] | | r of | | | SWELLIN | (SNOMED | | | | DNP MANUFACTURING TECHNOLOGY ANALYST | | forearm | | | G [...] | | | +---------+---------+---------+---------+---------+---------+---------+---------+---------+ | UTI | [id number] | | Resolve | | [place] | | Urinary | | | | 5 | /13 | d | /13 | [place] | | tract | | | | (SNOMED | | | | DNP MANUFACTURING TECHNOLOGY ANALYST | | infecti | | | | [...] | -CM) | | | | DNP MANUFACTURING TECHNOLOGY ANALYST | | s | | | MELLITU [...] athy | | +---------+---------+---------+---------+---------+---------+---------+---------+---------+ | DEMENTI | [id number] | | Inactiv | | [place] | | Procedu | | | A | 03 | / | e | / | [place] | | re | | | SCREENI | (SNOMED | | | | DNP MANUFACTURING TECHNOLOGY ANALYST | | carried | | | NG | CT) | | | | | | out on | | | | | | | | | | | | | | | | | | | | subject | | +---------+---------+---------+---------+---------+---------+---------+---------+---------+ | CHANGE | [id number] | | Inactiv | | [place] | | Altered | | | IN | 9 | /13 | e | /13 | [place] | | bowel | | | BOWEL | (SNOMED | | | | DNP MANUFACTURING TECHNOLOGY ANALYST | | functio | | | HABITS | CT) | | | | | | n | | +---------+---------+---------+---------+---------+---------+---------+---------+---------+ | MILD | [id number] | | Inactiv | | [place] | | Mild | | | COGNITI | 03 | / | e | /24 | [place] | | cogniti | | | VE | (SNOMED | | | | DNP MANUFACTURING TECHNOLOGY ANALYST | | ve | | | IMPAIRM | CT) | | | | | | disorde | | | ENT | | | | | | | r | | +---------+---------+---------+---------+---------+---------+---------+---------+---------+ | DIABETE | [id number] | | Inactiv | | [place]rose | | Periphe | | | S | [id number] | /11 | e | /12 | [place] | | ral | | | MELLITU | (SNOMED | | | | DNP MANUFACTURING TECHNOLOGY ANALYST | | neuropa | | | S, [...] fied | | +---------+---------+---------+---------+---------+---------+---------+---------+---------+ | DIABETE | [id number] | | Active | | David W | | Periphe | | | S | 490700 | /15 | | /15 | Theen [...] | | | +---------+---------+---------+---------+---------+---------+---------+---------+---------+ | MUSCLE | [id number] | | Active | | Christen | | Muscle | | | PAIN | 1 | /07 | | /07 | J. | | pain | | | | (SNOMED | | | | [place] | | | | | | CT) | | | | ta MANUFACTURING TECHNOLOGY ANALYST | | | | +---------+---------+---------+---------+---------+---------+---------+---------+---------+ | DIABETE | [id number] | | Removed | | David W | | Periphe | | | S | 312906 | /11 | | /12 | Theen [...] | | | +---------+---------+---------+---------+---------+---------+---------+---------+---------+ | MILD | [id number] | | Removed | | Maulik | [...] uterus | | +---------+---------+---------+---------+---------+---------+---------+---------+---------+ | COLONIC | [id number] | | Active | | Emeka | [...] | | | +---------+---------+---------+---------+---------+---------+---------+---------+---------+ | CONSTIP | [id number] | | Removed | | Emeka | | Constip | | | ATION | 8 | /13 | | /13 | Petre | | ation | | | | (SNOMED | | | | MD | | | | | | CT) | | | | | | | | +---------+---------+---------+---------+---------+---------+---------+---------+---------+ | CHANGE | [id number] | | Removed | | Eemka | | Altered | | | IN | 9 | /13 | | /13 | Petre | | bowel | | | BOWEL | (SNOMED | | | | MD | | functio | | | HABITS | CT) | | | | | | n | | +---------+---------+---------+---------+---------+---------+---------+---------+---------+ | DECREAS | [id number] | | Active | | Emeka | | Decreas | | | ED | 6 | /13 | | /13 | Petre | | e in | | | APPETIT | (SNOMED | | | | MD | | appetit | | | E | CT) | | | | | | e | | +---------+---------+---------+---------+---------+---------+---------+---------+---------+ | WEIGHT | [id number] | | Active | | Emeka | | Abnorma | | | LOSS | 01 | | | 13 | Petre | | l | | | ABNORMA | (SNOMED | | | | MD | | weight | | | L | CT) | | | | | | loss | | +---------+---------+---------+---------+---------+---------+---------+---------+---------+ | NAUSEA | 3995914 | | Removed | | Emeka | | Nausea | | | ALONE | 07 | /13 | | /13 | Petre | | | | | | (SNOMED | | | | MD | | | | | | CT) | | | | | | | | +---------+---------+---------+---------+---------+---------+---------+---------+---------+ | RECTAL | [id number] | | Active | | Emeka | | Rectal | | | BLEEDIN | 2 | /13 | | /13 | Petre | | hemorrh | | | G | (SNOMED | | | | MD | | age | | | | CT) | | | | | | | | +---------+---------+---------+---------+---------+---------+---------+---------+---------+ | DEMENTI | [id number] | | Active | | Christen | | Dementi | | | A | 6 | /10 | | /10 | J. | | a | | | WITHOUT | (SNOMED | | | | [place] | | | | | | CT) | | | | ta MANUFACTURING TECHNOLOGY ANALYST | | | | | BEHAVIO | | | | | | | | | | RAL | | | | | | | | | | DISTURB | | | | | | | | | | ANCE | | | | | | | | | +---------+---------+---------+---------+---------+---------+---------+---------+---------+ | CHRONIC | [id number] | | Active | | Christen | | Chronic | | | | 03 | /10 | | /10 | J. | | | | | PROGRES | (SNOMED | | | | [place] | | progres | | | SIVE | CT) | | | | ta MANUFACTURING TECHNOLOGY ANALYST | | sive | | | RENAL | | | | | | | renal | | | FAILURE | | | | | | | failure | | +---------+---------+---------+---------+---------+---------+---------+---------+---------+ | ANEMIA | [id number] | | Removed | | Christen | | Anemia | | | | 00 | /10 | | /10 | J. | | | | | | (SNOMED | | | | [place] | | | | | | CT) | | | | ta MANUFACTURING TECHNOLOGY ANALYST | | | | +---------+---------+---------+---------+---------+---------+---------+---------+---------+ | DEMENTI | [id number] | | Removed | | Christen | | Procedu | | | A | | / | | | J. | | re | | | SCREENI | (SNOMED | | | | [place] | | carried | | | NG | CT) | | | | ta MANUFACTURING TECHNOLOGY ANALYST | | out on | | | | | | | | | | | | | | | | | | | | subject | | +---------+---------+---------+---------+---------+---------+---------+---------+---------+ | FALL | [id number] | | Active | | Christen | | At risk | | | RISK | | / | | | J. | | for | | | | (SNOMED | | | | [place] | | falls | | | | CT) | | | | ta MANUFACTURING TECHNOLOGY ANALYST | | | | +---------+---------+---------+---------+---------+---------+---------+---------+---------+ | DIABETE | [id number] | | Resolve | | Christen | | Periphe | | | S | 207778 | /14 | d | /15 | J. | | ral | | | MELLITU | (SNOMED | | | | [place] | | neuropa | | | S, TYPE | CT) | | | | ta MANUFACTURING TECHNOLOGY ANALYST | | thy | | | II [...] | | | +---------+---------+---------+---------+---------+---------+---------+---------+---------+ | CORNS | [id number] | | Inactiv | | Kali | | [place] | | | AND | 00 | / | e | / | Palacio | | and | | | CALLOSI | (SNOMED | | | | DPM | | callus | | | TIES | CT) | | | | | | | | +---------+---------+---------+---------+---------+---------+---------+---------+---------+ | HAMMER | [id number] | | Active | | Kali | [...] | | | +---------+---------+---------+---------+---------+---------+---------+---------+---------+ | HALLUX | 8090786 | | Active | | Kali | [...] ropathy | | +---------+---------+---------+---------+---------+---------+---------+---------+---------+ | DIABETE | [id number] | | Removed | | Kali | [...] s | | +---------+---------+---------+---------+---------+---------+---------+---------+---------+ | ONYCHOM | [id number] | | Active | | Kali | | Onychom | | | YCOSIS | | | Palacio | | ycosis | | | | (SNOMED | | | | DPM | | | | | | CT) | | | | | | | | +---------+---------+---------+---------+---------+---------+---------+---------+---------+ | HEARTBU | 8740245 | | Active | | Tiesha | | Heartbu | | | RN | 0 | /19 | | /19 | | | rn | | | | (SNOMED | | | | [place] | | | | | | CT) | | | | MD | | | | +---------+---------+---------+---------+---------+---------+---------+---------+---------+ | TYPE 2 | [id number] | | Active | | Tiesha | [...] S | -CM) | | | | [place] | | s | | | MELLITU [...] athy | | +---------+---------+---------+---------+---------+---------+---------+---------+---------+ | UTI | [id number] | | Removed | | Pako | | Urinary | | | | 5 | /13 | | /13 | [place] | | tract | | | | (SNOMED | | | | auff | | infecti | | | | CT) | | | | MANUFACTURING TECHNOLOGY ANALYST | | ous | | | | | | | | | | disease | | +---------+---------+---------+---------+---------+---------+---------+---------+---------+ | LOCALIZ | [id number] | | Removed | | [place]lena | [...] | | | +---------+---------+---------+---------+---------+---------+---------+---------+---------+ | LIPOMA | 7595674 | | Active | | Lauranc | | Lipoma | | | | 2 | /14 | | /14 | e W | | (clinic | | | | (SNOMED | | | | Lila | | al) | | | | CT) | | | | MD | | | | +---------+---------+---------+---------+---------+---------+---------+---------+---------+ | VITAMIN | 6831284 | | Active | | David Paez | | Vitamin | | | D | 6 | /14 | | /15 | Theen | | D | | | DEFICIE | (SNOMED | | | | MD FACE | | deficie | | | NCY | CT) | | | | FACP | | ncy | | +---------+---------+---------+---------+---------+---------+---------+---------+---------+ | OBESITY | 9529350 | | Active | | David W | | Obesity | | | , BMI | 01 | /14 | | /15 | Theen | | | | | 35-39.9 | (SNOMED | | | | MD FACE | | | | | , ADULT | CT) | | | | FACP | | | | +---------+---------+---------+---------+---------+---------+---------+---------+---------+ | DIABETE | 6397985 | | Removed | | David W | | Periphe | | | S | [id number] | /14 | | /15 | Theen [...] | | | +---------+---------+---------+---------+---------+---------+---------+---------+---------+ | HALLUX | 9043299 | | Inactiv | | Kali | [...] | | | +---------+---------+---------+---------+---------+---------+---------+---------+---------+ | HAMMER | [id number] | | Inactiv | | Kali | [...] | | | +---------+---------+---------+---------+---------+---------+---------+---------+---------+ | ONYCHOM | 3232855 | | Inactiv | | Kali | [...] ropathy | | +---------+---------+---------+---------+---------+---------+---------+---------+---------+ | DIABETE | 0411650 | | Inactiv | | Kali | [...] s | | +---------+---------+---------+---------+---------+---------+---------+---------+---------+ | SCREENI | 1856120 | | Resolve | | Lauranc | | Depress | | | NG FOR | 06 | /10 | d | /10 | e W | | ion | | | DEPRESS | (SNOMED | | | | Lila | | screeni | | | ION | CT) | | | | MD | | ng | | +---------+---------+---------+---------+---------+---------+---------+---------+---------+ | SCREENI | 7477361 | | Resolve | | Lauranc | [...] | | | +---------+---------+---------+---------+---------+---------+---------+---------+---------+ | SCREENI | 8117405 | | Resolve | | Lauranc | [...] ng | | +---------+---------+---------+---------+---------+---------+---------+---------+---------+ | SCREENI | 5616451 | | Removed | | Geetha | [...] ng | | +---------+---------+---------+---------+---------+---------+---------+---------+---------+ | SCREENI | 9956046 | | Removed | | Geetha | | Screeni | | | NG FOR | | / | | | [place] | | ng for | | | UNSPECI | (SNOMED | | | | [facility] | | disorde | | | FIED | CT) | | | | | | r | | | CONDITI | | | | | | | | | | ON | | | | | | | | | +---------+---------+---------+---------+---------+---------+---------+---------+---------+ | SCREENI | 0155926 | | Removed | | Geetha | | Depress | | | NG FOR | | / | | | [place] | | ion | | | DEPRESS | (SNOMED | | | | [facility] | | screeni | | | ION | CT) | | | | | | ng | | +---------+---------+---------+---------+---------+---------+---------+---------+---------+ | RENAL | 2234804 | | Removed | | Lauranc | [...] e | | +---------+---------+---------+---------+---------+---------+---------+---------+---------+ | EDEMA | 2387607 | | Removed | | Lauranc | | Edema | | | | 08 | /15 | | /11 | e W | | | | | | (SNOMED | | | | Lila | | | | | | CT) | | | | MD | | | | +---------+---------+---------+---------+---------+---------+---------+---------+---------+ | RENAL | 1178953 | | Active | | Luz | [...] e | | +---------+---------+---------+---------+---------+---------+---------+---------+---------+ | PERIPHE | 9958068 | | Active | | Lauranc | [...] disease | | +---------+---------+---------+---------+---------+---------+---------+---------+---------+ | CANDIDI | 4372999 | | Active | | Susanna | | Candidi | | | ASIS, | 6 | | | | Medel | | asis of | | | SKIN | (SNOMED | | | | MD | | skin | | | | CT) | | | | | | | | +---------+---------+---------+---------+---------+---------+---------+---------+---------+ | DYSURIA | 6681173 | | Removed | | Erica | | Dysuria | | | | 1 | /31 | | / | Paul | | | | | | (SNOMED | | | | MA | | | | | | CT) | | | | | | | | +---------+---------+---------+---------+---------+---------+---------+---------+---------+ | VAGINIT | [id number] | | Removed | | Erica | | Vaginit | | | IS | 1 | /31 | | /31 | Paul | | is | | | | (SNOMED | | | | MA | | | | | | CT) | | | | | | | | +---------+---------+---------+---------+---------+---------+---------+---------+---------+ | RLQ | 3485192 | | Resolve | | Lauranc | | Right | | | PAIN | 02 | | d | /11 | e W | | lower | | | | (SNOMED | | | | Lila | | quadran | | | | CT) | | | | MD | | t pain | | +---------+---------+---------+---------+---------+---------+---------+---------+---------+ | ABDOMIN | 2930411 | | Resolve | | Lauranc | [...] | | | +---------+---------+---------+---------+---------+---------+---------+---------+---------+ | KNEE | 1471880 | | Active | | Lauranc | | Knee | | | PAIN | 3 | /14 | | /14 | e W | | pain | | | | (SNOMED | | | | Lila | | | | | | CT) | | | | MD | | | | +---------+---------+---------+---------+---------+---------+---------+---------+---------+ | Questio | 4884980 | | Correct | | Lauranc | [...] | | | +---------+---------+---------+---------+---------+---------+---------+---------+---------+ | VERTEBR | 4544131 | | Active | | Lauranc | [...] e | | +---------+---------+---------+---------+---------+---------+---------+---------+---------+ | VERTIGO | 5531041 | | Active | | Luz | | Vertigo | | | | 01 | / | | / | Asad | | | | | | (SNOMED | | | | RN | | | | | | CT) | | | | | | | | +---------+---------+---------+---------+---------+---------+---------+---------+---------+ | CHEST | [id number] | | Inactiv | | Genny | | Chest | | | PAIN | 9 | | e | /02 | Kaufman | | pain | | | | (SNOMED | | | | | | | | | | CT) | | | | | | | | +---------+---------+---------+---------+---------+---------+---------+---------+---------+ | CHEST | 9968759 | | Inactiv | | Lauranc | [...] fied | | +---------+---------+---------+---------+---------+---------+---------+---------+---------+ | CEREBRO | [id number] | | Active | | Rogers | | 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 | (SNOMED | | | | MD | | r | | | DISEASE | CT) | | | | | | disease | | +---------+---------+---------+---------+---------+---------+---------+---------+---------+ | History | 5889162 | | Active | | Rogers | [...] | | | +---------+---------+---------+---------+---------+---------+---------+---------+---------+ | DIABETI | 3736845 | | Removed | | Rogers | [...] thy | | +---------+---------+---------+---------+---------+---------+---------+---------+---------+ | HYPERLI | 2286400 | | Active | | Rogers | | Hyperli | | | PIDEMIA | 4 | /30 | | /30 | Laith | | pidemia | | | | (SNOMED | | | | MD | | | | | | CT) | | | | | | | | +---------+---------+---------+---------+---------+---------+---------+---------+---------+ | History | 4409673 | | Active | | Rogers | [...] e | | +---------+---------+---------+---------+---------+---------+---------+---------+---------+ | CEREBRA | 6457692 | | Correct | | Rogers | [...] s | | +---------+---------+---------+---------+---------+---------+---------+---------+---------+ | ABDOMIN | 1473494 | | Removed | | Patricia | [...] | | | +---------+---------+---------+---------+---------+---------+---------+---------+---------+ | RLQ | 9676604 | | Removed | | Patricia | [...] fied | | +---------+---------+---------+---------+---------+---------+---------+---------+---------+ | CARPAL | 0245447 | | Active | | Rogers | | Carpal | | | 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 | /25 | | /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 | | | | MD | | 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, LEFT | CT) | | | | | | e | | +---------+---------+---------+---------+---------+---------+---------+---------+---------+ | Questio | [id number] | | Removed | | Rogers | [...] | | | +---------+---------+---------+---------+---------+---------+---------+---------+---------+ | GAIT | 6163348 | | Active | | Rogers | | Abnorma | | | IMBALAN | 2 | | | | Laith | | l gait | | | CE | (SNOMED | | | | MD | | | | | | CT) | | | | | | | | +---------+---------+---------+---------+---------+---------+---------+---------+---------+ | BRAIN | [id number] | | Correct | | Rogers | [...] e | | +---------+---------+---------+---------+---------+---------+---------+---------+---------+ | PARESTH | 6698754 | | Removed | | Rogers | | Paresth | | | ESIA, | | | | / | Laith | | esia of | | | HANDS | (SNOMED | | | | MD | | hand | | | | CT) | | | | | | | | +---------+---------+---------+---------+---------+---------+---------+---------+---------+ | PERIPHE | [id number] | | Correct | | Rogers | | Periphe | | | RAL | | | ion | /25 | Laith | | ral | | | NEUROPA | (SNOMED | | | | MD | | nerve | | | THY | CT) | | | | | | disease | | +---------+---------+---------+---------+---------+---------+---------+---------+---------+ | THYROID | [id number] | | Active | | Luz | | Thyroid | | | NODULE | 05 | /20 | | /20 | Eladio | | nodule | | | | (SNOMED | | | | [facility] | | | | | | CT) | | | | | | | | +---------+---------+---------+---------+---------+---------+---------+---------+---------+ | TIA | [id number] | | Active | | Lauranc | [...] a | | +---------+---------+---------+---------+---------+---------+---------+---------+---------+ | SYNCOPE | [id number] | | Removed | | Lauranc | | Syncope | | | | 07 | / | | / | e W | | | | | | (SNOMED | | | | Lila | | | | | | CT) | | | | MD | | | | +---------+---------+---------+---------+---------+---------+---------+---------+---------+ | GASTROP | [id number] | | Active | | Lauranc | | 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 | | | | (SNOMED | | | | Lila | | syndrom | | | | CT) | | | | MD | | e | | +---------+---------+---------+---------+---------+---------+---------+---------+---------+ | CONSTIP | [id number] | | Active | | Lauranc | | Chronic | | | ATION, | | / | | 08 | e W | | | | | CHRONIC | (SNOMED | | | | Lila | | constip | | | | CT) | | | | MD | | ation | | +---------+---------+---------+---------+---------+---------+---------+---------+---------+ | POSTHER | [id number] | | Active | | Lauranc | | Posther | | | 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 | (SNOMED | | | | Lila | | neuralg | | | [place] | CT) | | | | MD | | ia | | +---------+---------+---------+---------+---------+---------+---------+---------+---------+ | DIZZINE | [id number] | | Removed | | Lauranc | | Dizzine | | | SS | 03 | /08 | | /08 | e W | | ss | | | | (SNOMED | | | | Lila | | | | | | CT) | | | | MD | | | | +---------+---------+---------+---------+---------+---------+---------+---------+---------+ | DEHYDRA | [id number] | | Removed | | Lauranc | | Dehydra | | | TION | 6 | /08 | | | e W | | tion | | | | (SNOMED | | | | Lila | | | | | | CT) | | | | MD | | | | +---------+---------+---------+---------+---------+---------+---------+---------+---------+ | DIABETE | [id number] | | Removed | | Lauranc | [...] | | | +---------+---------+---------+---------+---------+---------+---------+---------+---------+ | HYPERTE | [id number] | | Active | | Lauranc | [...] Take one | | | POTASSIUM | [id number] | [facility] | | CHLORIDE | tab daily | | | CHLORIDE | 5 | Ankur DNP | | ER 10 MEQ | in the AM | | | | | MANUFACTURING TECHNOLOGY ANALYST | | CR-TABS | | | | | | | + + + + + + + + | RELION | Use to | | | INSULIN | [id number] | [facility] | | INSULIN | inject | | | SYRINGE-NE | 2 | Ankur DNP | | SYRINGE | insulin 5 | | | EDLE U-100 | | MANUFACTURING TECHNOLOGY ANALYST | | 31G X | times | | | | | | | 10/09" 0.5 | daily Dx | | | | | | | ML | Code | | | | | | | | E11.40 | | | | | | + + + + + + + + | HUMALOG | 12 Units | | | INSULIN | [id number] | [facility] | | KWIKPEN | before | | | LISPRO | 9 | Ankur DNP | | 100 | meals | | | | | MANUFACTURING TECHNOLOGY ANALYST | | UNIT/ML | SS:150-175 | | [...] Take one | | | LINACLOTID | [id number] | [facility] | | 145 MCG | tablet | | | E | 0 | Ankur DNP | | CAPS | daily as | | | | | MANUFACTURING TECHNOLOGY ANALYST | | | needed for | | | | | | | | | | | | | | | | constipati | | | | | | | | on. | | | | | | + + + + + + + + | COLACE 100 | 1 pill | | | DOCUSATE | [id number] | [facility] | | MG CAPS | twice | | | SODIUM | 0 | Ankur DNP | | | daily for | | | | | MANUFACTURING TECHNOLOGY ANALYST | | | soft | | | | | | | | stools | | | | | | + + + + + + + + | VITAMIN D | Take one | | | CHOLECALCI | [id number] | [facility] | | 1000 UNIT | tablet | | | FEROL | 1 | Ankur DNP | | TABS | daily in | | | | | MANUFACTURING TECHNOLOGY ANALYST | | | the AM | | | | | | + + + + + + + + | VOLTAREN 1 | apply 3-4 | | | DICLOFENAC | [id number] | [facility] | | % GEL | times QD | | | SODIUM | 7 | Ankur DNP | | | PRN pain, | | | | | MANUFACTURING TECHNOLOGY ANALYST | | | max 4 | | | | | | | | grams per | | | | | | | | applicatio | | | | | | | | n | | | | | | + + + + + + + + | CLONAZEPAM | Take one | | | CLONAZEPAM | [id number] | [facility] | | 0.5 MG | tablet | | | | 1 | Ankur DNP | | TABS | every 24 | | | | | MANUFACTURING TECHNOLOGY ANALYST | | | hours as | | | | | | | | needed for | | | | | | | | anxiety | | | | | | + + + + + + + + | LASIX 80 | 1 tab by | | | FUROSEMIDE | [id number] | [facility] | | MG TABS | mouth one | | | | 5 | Ankur DNP | | | time per | | | | | MANUFACTURING TECHNOLOGY ANALYST | | | day in the | | | | | | | | AM | | | | | | + + + + + + + + | LYRICA 100 | TAKE 1 | | | PREGABALIN | 3635279267 | [facility] | | MG CAPS | CAPSULE BY | | | | 8 | Ankur DNP | | | MOUTH | | | | | MANUFACTURING TECHNOLOGY ANALYST | | | THREE | | | [...] TAKE 1 | | | IRBESARTAN | [id number] | [facility] | | 300 MG | TABLET BY | | | | 3 | Ankur DNP | | TABS | MOUTH ONCE | | | | | MANUFACTURING TECHNOLOGY ANALYST | | | DAILY | | | | | | + + + + + + + + | EQ STOOL | TAKE 1 | | | DOCUSATE | [id number] | [facility] | | SOFTENER | CAPSULE BY | | | SODIUM | 5 | Ankur DNP | | 100 MG | MOUTH | | | | | MANUFACTURING TECHNOLOGY ANALYST | | CAPS | TWICE | | | | | | | | DAILY FOR | | | | | | | | SOFT | | | | | | | | STOOLS | | | | | | + + + + + + + + | BASAGLAR | INJECT 68 | | | INSULIN | 7350017118 | [facility] | | KWIKPEN | UNITS | | | GLARGINE | 9 | Ankur DNP | | 100 | SUBCUTANEO | | | | | MANUFACTURING TECHNOLOGY ANALYST | | UNIT/ML | USLY IN | [...] Take one | | | PANTOPRAZO | [id number] | [facility] | | LE SODIUM | tablet by | | | LE SODIUM | 8 | Ankur DNP | | 40 MG TBEC | mouth once | | | | | MANUFACTURING TECHNOLOGY ANALYST | | | daily | | | | | | + + + + + + + + | NYSTATIN-T | Apply thin | | | NYSTATIN-T | 6945722728 | [facility] | | RIAMCINOLO | layer to | | | RIAMCINOLO | 5 | Ankur DNP | | NE | affected | | | NE | | MANUFACTURING TECHNOLOGY ANALYST | | 013481-0.1 | area BID | | | | | | | UNIT/GM-% | prn for | | | | | | | CREA | itching | | | | | | + + + + + + + + | LINZESS | Take one | | | LINACLOTID | [id number] | [facility] | | 145 MCG | tablet | | | E | 0 | Ankur DNP | | CAPS | daily for | | | | | MANUFACTURING TECHNOLOGY ANALYST | | | constipati | | | | | | | | on. | | | | | | + + + + + + + + | FUROSEMIDE | TAKE 1 | | | FUROSEMIDE | 7840773538 | [facility] | | 80 MG | TABLET BY | | | | 5 | Ankur DNP | | TABS | MOUTH ONCE | | | | | MANUFACTURING TECHNOLOGY ANALYST | | | DAILY IN | | | | | | | | THE | | | | | | | | MORNING | | | | | | + + + + + + + + | VOLTAREN 1 | apply 3-4 | | | DICLOFENAC | 6070373841 | Fredy | | % GEL | [...] TAKE 1 | | | CHOLECALCI | 8266757700 | [facility] | | 1000 UNIT | TABLET BY | | | FEROL | 0 | Ankur DNP | | TABS | MOUTH ONCE | | | | | MANUFACTURING TECHNOLOGY ANALYST | | | DAILY IN | | | | | | | | THE | | | | | | | | MORNING | | | | | | + + + + + + + + | ONETOUCH | Use to | | | BLOOD | 5138078822 | [facility] | | VERIO | test | | | GLUCOSE | 1 | Ankur DNP | | w/Device | glucose | | | MONITORING | | MANUFACTURING TECHNOLOGY ANALYST | | KIT | four times | [...] use with | | | BLOOD | 7871462690 | Edna | | PRIME | test [...] Use strip | | | GLUCOSE | 2705491740 | [facility] | | ULTRA BLUE | to checl | | | BLOOD | 0 | Ankur DNP | | STRP | glucose | | | | | MANUFACTURING TECHNOLOGY ANALYST | | | four times | | [...] | USE | | | INSULIN | 3934627560 | [facility] | | INSULIN | SYRINGE 4 | | | SYRINGE-NE | 2 | Ankur DNP | | SYRINGE | TIMES | | | EDLE U-100 | | MANUFACTURING TECHNOLOGY ANALYST | | 31G X | DAILYDx | | | | | | | 10/09" 0.5 | Code | | | | | | | ML | E11.40 | | | | | | + + + + + + + + | BD PEN | USE PEN | | | INSULIN | 8208511530 | [facility] | | NEEDLE | NEEDLE(S) | | | PEN NEEDLE | 9 | Ankur DNP | | SHORT U/F | 4 TIMES | | | | | MANUFACTURING TECHNOLOGY ANALYST | | 31G X 8 MM | DAILYDx | | | | | | | | Code | | | | | | | | E11.40 | | | | | | + + + + + + + + | ONETOUCH | Use strip | | | GLUCOSE | 0807482148 | [facility] | | TERRELL STRP | to checl | | | BLOOD | 0 | Ankur DNP | | | glucose | | | | | MANUFACTURING TECHNOLOGY ANALYST | | | four times | | [...] Use to | | | GLUCOSE | 5692966847 | Edna | | BLOOD | check [...] Take one | | | IRBESARTAN | 9269748594 | [facility] | | 300 MG | tablet | | | | 3 | Ankur DNP | | TABS | daily | | | | | MANUFACTURING TECHNOLOGY ANALYST | + + + + + + + + | BD INSULIN | Use to | | | INSULIN | 8882328212 | [facility] | | SYRINGE | inject | | | SYRINGE-NE | 6 | Ankur DNP | | ULTRAFINE | insulin 5 | | | EDLE U-100 | | MANUFACTURING TECHNOLOGY ANALYST | | 29G X 1/2" | times per | | | | | | | 0.5 ML | day | | | | | | + + + + + + + + | RELION | Use to | | | GLUCOSE | 5384137285 | [facility] | | BLOOD | check | | | BLOOD | 4 | Ankur DNP | | GLUCOSE | blood | | | | | MANUFACTURING TECHNOLOGY ANALYST | | TEST STRP | sugars | [...] use with | | | BLOOD | 6908360369 | [facility] | | PRIME | test | | | GLUCOSE | 2 | Ankur DNP | | MONITOR | strips to | | | MONITORING | | MANUFACTURING TECHNOLOGY ANALYST | | DYLAN | test BG | | | SUPPL | | | | | daily | | | | | | + + + + + + + + | RELION | use when | | | GLUCOSE | 0383743307 | [facility] | | BLOOD | testing BG | | | BLOOD | 4 | Ankur DNP | | GLUCOSE | | | | | | MANUFACTURING TECHNOLOGY ANALYST | | TEST STRP | | | | | | | + + + + + + + + | BIOTIN 1 | Take one | | | BIOTIN | 7998995180 | Lorri | | MG CAPS | daily in | | | | 2 | Prabhakar | | | the AM | | | | | NCMA | + + + + + + + + | BASAGLAR | 68 Units | | | INSULIN | 3057185800 | [facility] | | KWIKPEN | every | | | GLARGINE | 9 | Ankur DNP | | 100 | morning | | | | | MANUFACTURING TECHNOLOGY ANALYST | | UNIT/ML | (34 units | | | | | | | SOPN | on each | | | | | | | | side) | | | | | | + + + + + + + + | BASAGLAR | 65 Units | | | INSULIN | 8266865684 | [facility] | | KWIKPEN | every | | | GLARGINE | 9 | Ankur DNP | | 100 | morning | | | | | MANUFACTURING TECHNOLOGY ANALYST | | UNIT/ML | | | | | | | | SOPN | | | | | | | + + + + + + + + | BASAGLAR | 60 Units | | | INSULIN | 2912056000 | [facility] | | KWIKPEN | every | | | GLARGINE | 9 | Ankur DNP | | 100 | morning | | | | | MANUFACTURING TECHNOLOGY ANALYST | | UNIT/ML | | | | | | | | SOPN | | | | | | | + + + + + + + + | RELION | Use daily | | | GLUCOSE | 9909032916 | [facility] | | BLOOD | to check | | | BLOOD | 4 | Ankur DNP | | GLUCOSE | blood | | | | | MANUFACTURING TECHNOLOGY ANALYST | | TEST STRP | sugar | | | | | | + + + + + + + + | DIABETIC | 1 pair per | | | DIABETIC | | [facility] | | ORTHOTIC | custom | | | ORTHOTIC | | Ankur DNP | | SHOES | fit from | | | SHOES | | MANUFACTURING TECHNOLOGY ANALYST | | | podiatry | | | | | | | | E11.65, | | | | | | | | e11.21 | | | | | | + + + + + + + + | DIABETIC | 1 pair per | | | FOOT CARE | [id number] | [facility] | | INSOLES | custom | | | PRODUCTS | 1 | Ankur DNP | | | fit from | | | | | MANUFACTURING TECHNOLOGY ANALYST | | | podiatry | | | | | | | | Dx. | | | | | | | | E11.65, | | | | | | | | e11.21 | | | | | | + + + + + + + + | BD INSULIN | Use 5 | | | INSULIN | 7736198443 | [facility] | | SYRINGE | times | | | SYRINGE-NE | 1 | Ankur DNP | | ULTRAFINE | daily to | | | EDLE U-100 | | MANUFACTURING TECHNOLOGY ANALYST | | 29G X 1/2" | inject [...] Use daily | | | INSULIN | 1802708255 | [facility] | | NEEDLE | to inject | | | PEN NEEDLE | 0 | Ankur DNP | | ORIGINAL | insulin | | | | | MANUFACTURING TECHNOLOGY ANALYST | | U/F 29G X | | | | | | | | 12.7MM | | | | | | | + + + + + + + + | RELION PEN | | | | INSULIN | 3375569919 | [facility] | | NEEDLES | | | | PEN NEEDLE | 4 | Ankur DNP | | 31G X 8 MM | | | | | | MANUFACTURING TECHNOLOGY ANALYST | + + + + + + + + | MISC | | | | MISC | | [facility] | | | | | | | | Ankur DNP | | | | | | | | MANUFACTURING TECHNOLOGY ANALYST | + + + + + + + + | NERVE | | | | NERVE | | [facility] | | PAIN | | | | PAIN | | Ankur DNP | | | | | | | | MANUFACTURING TECHNOLOGY ANALYST | + + + + + + + + | HEARTBU | | | | HEARTBU | | [facility] | | RN/NAUSEA* | | | | RN/NAUSEA* | | Ankur DNP | | | | | | | | MANUFACTURING TECHNOLOGY ANALYST | + + + + + + + + | STROKE | | | | STROKE | | [facility] | | PREVENTION | | | | PREVENTION | | Ankur DNP | | | | | | | | MANUFACTURING TECHNOLOGY ANALYST | + + + + + + + + | BLOOD | | | | BLOOD | | [facility] | | PRESSURE | | | | PRESSURE | | Ankur DNP | | * | | | | * | | MANUFACTURING TECHNOLOGY ANALYST | + + + + + + + + | DIABETE | | | | DIABETE | | [facility] | | S | | | | S | | Ankur DNP | | | | | | | | MANUFACTURING TECHNOLOGY ANALYST | + + + + + + + + | MIRALAX | 17 gm | | | POLYETHYLE | [id number] | [facility] | | POWD | daily | | | NE GLYCOL | 2 | Ankur DNP | | | stirred | | | 3350 | | MANUFACTURING TECHNOLOGY ANALYST | | | into 4-8 | | [...] 1 pill | | | DOCUSATE | [id number] | [facility] | | MG CAPS | twice | | | SODIUM | 0 | Ankur DNP | | | daily for | | | | | MANUFACTURING TECHNOLOGY ANALYST | | | soft | | | | | | | | stools | | | | | | + + + + + + + + | NOVOLOG | 12 Units | | | INSULIN | 2821239437 | [facility] | | 100 | before | | | ASPART | 1 | Ankur DNP | | UNIT/ML | meals | | | | | MANUFACTURING TECHNOLOGY ANALYST | | SOLN | SS:150-175 | | [...] 1 capsule | | | PREGABALIN | 4997999325 | [facility] | | MG CAPS | three | | | | 8 | Ankur DNP | | | times | | | | | MANUFACTURING TECHNOLOGY ANALYST | | | daily for | | | | | | | | neuropathy | | | | | | + + + + + + + + | LYRICA 100 | 1 tab | | | PREGABALIN | 4208953372 | [facility] | | MG CAPS | three | | | | 8 | Ankur DNP | | | times per | | | | | MANUFACTURING TECHNOLOGY ANALYST | | | day. Pt | | | | | | | | states as | | | | | | | | needed | | | | | | + + + + + + + + | PROCHLORPE | Insert one | | | PROCHLORPE | 7982358127 | [facility] | | RAZINE 25 | | | | RAZINE | 0 | Ankur DNP | | MG SUPP | suppositor | | | | | MANUFACTURING TECHNOLOGY ANALYST | | | y rectally | | | | | | | | every 24 | | | | | | | | hours as | | | | | | | | needed | | | | | | + + + + + + + + | VICTOZA 18 | .6 mg x 1 | | | LIRAGLUTID | 7122431129 | [facility] | | MG/3ML | week then | | | E | 2 | Ankur DNP | | SOPN | 1.2 mg | | | | | MANUFACTURING TECHNOLOGY ANALYST | | | daily per | | | | | | | | week | | | | | | + + + + + + + + | RELION PEN | | | | INSULIN | 0308896293 | David | | NEEDLES | | | | PEN NEEDLE | 4 | Mark DO | | 31G X 8 MM | | | | | | | + + + + + + + + | NOVOLOG | 3U before | | | INSULIN | 3800952248 | Scarlett | | 100 | lunch [...] 1 tid | | | PREGABALIN | 8909049652 | Christen Ramirez | | MG CAPS | | | | | 8 | [place] | | | | | | | | MANUFACTURING TECHNOLOGY ANALYST | + + + + + + + + | PROMETHAZI | Take one | | | PROMETHAZI | 3996235344 | [facility] | | NE HCL 25 [...] Insert one | | | PROCHLORPE | 9019176521 | [facility] | | RAZINE 25 | [...] Take one | | | CLONAZEPAM | 5775678191 | [facility] | | 0.5 MG | [...] Take one | | | PANTOPRAZO | 9502706667 | [facility] | | LE SODIUM | tablet by | | | LE SODIUM | 8 | Ankur DNP | | 40 MG TBEC | mouth once | | | | | MANUFACTURING TECHNOLOGY ANALYST | | | daily | | | | | | + + + + + + + + | NITROFURAN | Take one | | | NITROFURAN | 6224913195 | [facility] | | TOIN | capsule [...] x 1 | | | LIRAGLUTID | 7970868855 | Christen J. | | MG/3ML | week then | | | E | 2 | [place] | | SOPN | 1.2 mg | | | | | MANUFACTURING TECHNOLOGY ANALYST | | | daily per | | | | | | | | week | | | | | | + + + + + + + + | VICTOZA 18 | Inject 0.6 | | | LIRAGLUTID | 3200699567 | Christen Ramirez | | MG/3ML | mg daily | | | E | 2 | [place] | | SOPN | | | | | | MANUFACTURING TECHNOLOGY ANALYST | + + + + + + + + | DRAMAMINE | take 1-2 | | | DIMENHYDRI | 4627039962 | Christen Ramirez | | 50 MG TABS | tabs 4 | | | MARCELA | 2 | [place] | | | times per | | | | | MANUFACTURING TECHNOLOGY ANALYST | | | day as | | | | | | | | needed | | | | | | + + + + + + + + | NEURONTIN | take 1 tab | | | GABAPENTIN | 1385087984 | Christen Escudero. | | 300 MG | po tid . | | | | 4 | [place] | | CAPS | Pt states | | | | | MANUFACTURING TECHNOLOGY ANALYST | | | as needed | | | | | | + + + + + + + + | PIOGLITAZO | Take 1 tab | | | PIOGLITAZO | 8135445302 | Christen Ramirez | | NE HCL 15 | by mouth | | | NE HCL | 6 | [place] | | MG TABS | one time | | | | | MANUFACTURING TECHNOLOGY ANALYST | | | per day in | | | | | | | | the AM | | | | | | + + + + + + + + | NITROFURAN | Take one | | | NITROFURAN | 1266996988 | [facility] | | TOIN | capsule [...] NITROFURAN | | | | NITROFURAN | 3847033183 | [facility] | | TOIN | | [...] Take 1 | | | GLIPIZIDE | 4488724488 | [facility] | | XL 2.5 MG | tablet | | | | 1 | Ankur DNP | | [id number] | p.o. | | | | | MANUFACTURING TECHNOLOGY ANALYST | | | q.a.m. | | | | | | + + + + + + + + | NOVOLOG | 3U before | | | INSULIN | 8181851133 | David | | 100 | lunch [...] 3U before | | | INSULIN | 7129156702 | Christen J. | | 100 | lunch and | | | LISPRO | 1 | [place] | | UNIT/ML | 5U before | | | | | MANUFACTURING TECHNOLOGY ANALYST | | SOLN | Dinner | | [...] <150 - | | | INSULIN | 7379237872 | Christen Ramirez | | 100 | No insulin | | | LISPRO | 1 | [place] | | UNIT/ML | BS | | | (HUMAN) | | MANUFACTURING TECHNOLOGY ANALYST | | SOLN | 150-200 | | [...] Take as | | | EXENATIDE | 0997640965 | Christen Ramirez | | MCG PEN 5 | directed | | | | 1 | [place] | | MCG/0.02ML | once daily | | | | | MANUFACTURING TECHNOLOGY ANALYST | | SOPN | in the AM | | | | | | + + + + + + + + | BASAGLAR | 1 pen | | | INSULIN | 5695768683 | Christen Ramirez | | KWIKPEN | every 3 | | | GLARGINE | 9 | [place] | | 100 | days 56 | | | | | MANUFACTURING TECHNOLOGY ANALYST | | UNIT/ML | units q | | | | | | | SOPN | Day | | | | | | + + + + + + + + | BASAGLAR | 56 Units | | | INSULIN | 6984193636 Thien Hernandez | | KWIKPEN | every [...] Inject 0.6 | | | LIRAGLUTID | 5090874438 | Christen Ramirez | | MG/3ML | mg daily | | | E | 2 | [place] | | SOPN | | | | | | MANUFACTURING TECHNOLOGY ANALYST | + + + + + + + + | VICTOZA 18 | 5 unit AM | | | LIRAGLUTID | 5388017076 | Christen Ramirez | | MG/3ML | and 5 | | | E | 2 | [place] | | SOPN | units PM | | | | | MANUFACTURING TECHNOLOGY ANALYST | + + + + + + + + | BASAGLAR | 1 pen | | | INSULIN | 8530956616 | Christen Ramirez | | KWIKPEN | every 3 | | | GLARGINE | 9 | [place] | | 100 | days 56 | | | | | MANUFACTURING TECHNOLOGY ANALYST | | UNIT/ML | units q | | | | | | | SOPN | Day | | | | | | + + + + + + + + | MECLIZINE | One tab by | | | MECLIZINE | 2856116383 | [facility] | | HCL 25 MG | mouth | | | HCL | 0 | Ankur DNP | | TABS | three | | | | | MANUFACTURING TECHNOLOGY ANALYST | | | times per | | [...] 56 Units | | | INSULIN | 0969870771 | Christen Ramirez | | KWIKPEN | by mouth | | | GLARGINE | 9 | [place] | | 100 | every | | | | | MANUFACTURING TECHNOLOGY ANALYST | | UNIT/ML | morning | | | | | | | SOPN | | | | | | | + + + + + + + + | SUPREP | mix and | | | NA | [phone] | Maulik | | BOWEL PREP | [...] mix and | | | NA | [id number] | Emeka | | BOWEL PREP | [...] pill BID | | | DOCUSATE | [id number] | [facility] | | MG CAPS | | | | SODIUM | 0 | Ankur DNP | | | | | | | | MANUFACTURING TECHNOLOGY ANALYST | + + + + + + + + | RELION | Use daily | | | GLUCOSE | 8552704458 | Tiesha | | BLOOD | to check | | | BLOOD | 4 | [place] MD | | GLUCOSE | blood | | | | | | | TEST STRP | sugar | | | | | | + + + + + + + + | DIABETIC | 1 pair per | | | DIABETIC | | Tiesha | | ORTHOTIC | custom | | | ORTHOTIC | | [place] MD | | SHOES | fit from | | | SHOES | | | | | podiatry | | | | | | | | E11.65, | | | | | | | | e11.21 | | | | | | + + + + + + + + | DIABETIC | 1 pair per | | | FOOT CARE | [id number] | Tiesha | | INSOLES | custom | | | PRODUCTS | 1 | [place] MD | | | fit from | [...] 1 pill | | | CEPHALEXIN | [id number] | Tiesha | | MG CAPS | twice a | | | | 1 | [place] MD | | | day for 7 | | | | | | | | days | | | | | | + + + + + + + + | BD INSULIN | Use 5 | | | INSULIN | [id number] | Ambrose | | SYRINGE | times | | | SYRINGE-NE | 1 | Ankur DNP | | ULTRAFINE | daily to | | | EDLE U-100 | | MANUFACTURING TECHNOLOGY ANALYST | | 29G X 1/2" | inject [...] 56 units | | | INSULIN | [id number] | Kaykay | | UNIT/ML | qAM | | | GLARGINE | 3 | Mora DO | | SOLN | | | | | | | + + + + + + + + | KEFLEX 500 | 1 pill | | | CEPHALEXIN | [id number] | Pako | | MG CAPS | twice a | | | | 1 | Middlekauf | | | day for 7 | | | | | f MANUFACTURING TECHNOLOGY ANALYST | | | days | | | | | | + + + + + + + + | LANTUS 100 | 50 units | | | INSULIN | [id number] | Pako | | UNIT/ML | once per | | | GLARGINE | 3 | Middlekauf | | SOLN | day. Pt | | | | | f MANUFACTURING TECHNOLOGY ANALYST | | | states she | | | | | | | | is taking | | | | | | | | 56 units | | | | | | | | every AM | | | | | | + + + + + + + + | BIOTIN 1 | Take one | | | BIOTIN | [id number] | Ambrose | | MG CAPS | daily in | | | | 2 | Ankur DNP | | | the AM | | | | | MANUFACTURING TECHNOLOGY ANALYST | + + + + + + + + | VICTOZA 18 | | | | LIRAGLUTID | [id number] | Jesus | | MG/3ML | | | | E | 2 | Ethan MD | | SOPN | | | | | | | + + + + + + + + | BYETTA 5 | Take as | | | EXENATIDE | [id number] | Christen Ramirez | | MCG PEN 5 | directed | | | | 1 | [place] | | MCG/0.02ML | once daily | | | | | MANUFACTURING TECHNOLOGY ANALYST | | SOPN | in the AM | | | | | | + + + + + + + + | VITAMIN D | Take one | | | CHOLECALCI | [id number] | Ambrose | | 1000 UNIT | tablet | | | FEROL | 1 | Ankur DNP | | TABS | daily in | | | | | MANUFACTURING TECHNOLOGY ANALYST | | | the AM | | | | | | + + + + + + + + | POTASSIUM | Take one | | | POTASSIUM | [id number] | Ambrose | | CHLORIDE | cap daily | | | CHLORIDE | 1 | Ankur DNP | | ER 10 MEQ | in the AM | | | | | MANUFACTURING TECHNOLOGY ANALYST | | CR-CAPS | | | | | | | + + + + + + + + | NEURONTIN | take 1 tab | | | GABAPENTIN | [id number] | Jesus | | 300 MG | po tid . | | | | 4 | Ethan MD | | CAPS | Pt states | | | | | | | | as needed | | | | | | + + + + + + + + | LASIX 80 | 1 tab by | | | FUROSEMIDE | [id number] | Ambrose | | MG TABS | mouth one | | | | 5 | Ankur DNP | | | time per | | | | | MANUFACTURING TECHNOLOGY ANALYST | | | day in the | | | | | | | | AM | | | | | | + + + + + + + + | LYRICA 100 | 1 tab | | | PREGABALIN | [id number] | Christen J. | | MG CAPS | three | | | | 8 | [place] | | | times per | | | | | MANUFACTURING TECHNOLOGY ANALYST | | | day. Pt | | | | | | | | states as | | | | | | | | needed | | | | | | + + + + + + + + | OMEPRAZOLE | Take one | | | OMEPRAZOLE | [id number] | Ambrose | | 40 MG | by mouth | | | | 0 | Ankur DNP | | CPDR | one time | | | | | MANUFACTURING TECHNOLOGY ANALYST | | | per day | | [...] tab by | | | CLOPIDOGRE | [phone] | Ambrose | | MG TABS | mouth one | | | L | 1 | Ankur DNP | | | time per | | | BISULFATE | | MANUFACTURING TECHNOLOGY ANALYST | | | day in the | | | | | | | | evening | | | | | | + + + + + + + + | LIPITOR 20 | take 1 | | | ATORVASTAT | [phone] | Ambrose | | MG TABS | tablet by | | | IN CALCIUM | 3 | Ankur DNP | | | mouth | | | | | MANUFACTURING TECHNOLOGY ANALYST | | | daily in | | | | | | | | the | | | | | | | | evening | | | | | | + + + + + + + + | VALSARTAN | Take one | | | VALSARTAN | [id number] | Ambrose | | 160 MG | tablet | | | | 7 | Ankur DNP | | TABS | daily in | | | | | MANUFACTURING TECHNOLOGY ANALYST | | | the AM | | | | | | + + + + + + + + | PIOGLITAZO | Take 1 tab | | | PIOGLITAZO | [id number] | Jesus | | NE HCL 15 [...] 25 units | | | INSULIN | [id number] | Jesus | | UNIT/ML | two [...] 18 | | | | LIRAGLUTID | [id number] | Bailey W | | MG/3ML | | | | E | 2 | Lila MD | | SOPN | | | | | | | + + + + + + + + | BYETTA 5 | 0.02 ml | | | EXENATIDE | [id number] | Bailey W | | MCG PEN 5 | injection | | | | 1 | Lila MD | | MCG/0.02ML | two times | | | | | | | SOPN | per day | | | | | | + + + + + + + + | DRAMAMINE | take 1-2 | | | DIMENHYDRI | [id number] | Bailey W | | 50 MG [...] 1 | | | | BIOTIN | [id number] | Kali | | MG CAPS | | | | | 2 | Hakeem DPM | + + + + + + + + | VITAMIN D | | | | CHOLECALCI | [id number] | Kali | | 1000 UNIT | | | | FEROL | 1 | Hakeem DPM | | TABS | | | | | | | + + + + + + + + | POTASSIUM | | | | POTASSIUM | [id number] | Kali | | CHLORIDE | | | | CHLORIDE | 1 | Palacio DPM | | ER 10 MEQ | | | | | | | | CR-CAPS | | | | | | | + + + + + + + + | BUSPIRONE | 1 TAB | | | BUSPIRONE | [id number] | Kali | | HCL 7.5 MG | three | | | HCL | 1 | Palacio DPM | | TABS | times per | | | | | | | | day | | | | | | + + + + + + + + | COLACE 100 | 1 tab by | | | DOCUSATE | [id number] | Kali | | MG CAPS | mouth | | | SODIUM | 0 | Palacio DPM | | | daily at | | | | | | | | bedtime | | | | | | + + + + + + + + | RELION | Use to | | | GLUCOSE | [id number] | Kali | | BLOOD | test BG | | | BLOOD | 4 | Palacio DPM | | GLUCOSE | one time | | | | | | | TEST STRP | per day | | | | | | + + + + + + + + | ONDANSETRO | 1 tab | | | ONDANSETRO | [id number] | Kali | | N HCL 4 MG | every 4 | | | N HCL | 3 | Palacio DPM | | TABS | hours | | | | | | + + + + + + + + | CILOSTAZOL | 1 tab two | | | CILOSTAZOL | 0937137629 | Kali | | 100 MG | times per | | | | 1 | Palacio DPM | | TABS | day | | | | | | + + + + + + + + | LANTUS 100 | 25 units | | | INSULIN | 5901700531 | Laurance W | | UNIT/ML | two times | | | GLARGINE | 3 | Lila MD | | SOLN | per day | | | | | | + + + + + + + + | NEURONTIN | take 1 tab | | | GABAPENTIN | 8990669335 | Laurance W | | 300 MG [...] tab by | | | FUROSEMIDE | 7456508020 | Laurance W | | MG TABS | mouth one | | | | 5 | Lila MD | | | time per | | | | | | | | day | | | | | | + + + + + + + + | FUROSEMIDE | 1 tab one | | | FUROSEMIDE | 8750783757 | Laurance W | | 40 MG | time per | | | | 5 | Lila MD | | TABS | day | | | | | | + + + + + + + + | BUSPIRONE | 1 TAB | | | BUSPIRONE | 1798027641 | Laurance W | | HCL 7.5 MG | three | | | HCL | 1 | Lila MD | | TABS | times per | | | | | | | | day | | | | | | + + + + + + + + | COLACE 100 | 1 tab by | | | DOCUSATE | [id number] | Laurance W | | MG CAPS | mouth | | | SODIUM | 0 | Lila MD | | | daily at | | | | | | | | bedtime | | | | | | + + + + + + + + | LYRICA 100 | 1 tab | | | PREGABALIN | 4441612283 | Laurance W | | MG CAPS | three | | | | 8 | Lila MD | | | times per | | | | | | | | day | | | | | | + + + + + + + + | GABAPENTIN | Take 2 | | | GABAPENTIN | 0278834849 | Laurance W | | 300 MG [...] by mouth | | | TRIMETHOPR | 4809959250 | Laurance W | | 800-160 | twice a | | | IM-SULFAME | 1 | Lila MD | | MG TABS | day for 3 | | | THOXAZOLE | | | | | days | | | | | | + + + + + + + + | BACTRIM DS | 1 by mouth | | | TRIMETHOPR | 1954835535 | Laurance W | | 800-160 | [...] 1 tab | | | MECLIZINE | 2720827063 | Laurance W | | HCL 25 MG | three | | | HCL | 0 | Lila MD | | TABS | times per | | | | | | | | day | | | | | | + + + + + + + + | GLUCOPHAGE | 1 tab one | | | METFORMIN | 5238950401 | Bailey W | | XR 500 MG | time per | | | HCL | 3 | Lila MD | | [id number] | day | | | | | | + + + + + + + + | BD INSULIN | Use 5 | | | INSULIN | 6452920077 | Bailey W | | SYRINGE | [...] 1 tab | | | PREGABALIN | 1441453346 | Bailey W | | MG CAPS [...] Use daily | | | INSULIN | 1721641401 | Ambrose | | NEEDLE | to inject | | | PEN NEEDLE | 0 | Ankur DNP | | ORIGINAL | insulin | | | | | MANUFACTURING TECHNOLOGY ANALYST | | U/F 29G X | | | | | | | | 12.7MM | | | | | | | + + + + + + + + | PIOGLITAZO | Take 1 tab | | | PIOGLITAZO | 9995426368 | Laurance W | | NE HCL 15 | by mouth | | | NE HCL | 6 | Lila MD | | MG TABS | one time | | | | | | | | per day | | | | | | + + + + + + + + | FLUCONAZOL | take one | | | FLUCONAZOL | 0367847843 | Franciscoance W | | E 150 MG | tablet PO | | | E | 1 | Lila MD | | TABS | x 1 repeat | | | | | | | | in 3 days | | | | | | + + + + + + + + | LYRICA 50 | TAKE ONE | | | PREGABALIN | 9675282874 | Kesha | | MG CAPS | [...] Take 2 | | | GABAPENTIN | 0922272063 | Laurance W | | 300 MG [...] 0.02 ml | | | EXENATIDE | 8995456780 | Laurance W | | MCG PEN 5 | injection | | | | 1 | Lila MD | | MCG/0.02ML | two times | | | | | | | SOPN | per day | | | | | | + + + + + + + + | BYETTA 5 | 0.2 ml | | | EXENATIDE | 1177714111 | Laurance W | | MCG PEN 5 | injection | | | | 1 | Lila MD | | MCG/0.02ML | two times | | | | | | | SOPN | per day | | | | | | + + + + + + + + | LYRICA 50 | TAKE ONE | | | PREGABALIN | 0400959664 | Laurance W | | MG CAPS [...] 1 tab | | | MECLIZINE | 4681031665 | Laurance W | | HCL 25 MG | three | | | HCL | 0 | Lila MD | | TABS | times per | | | | | | | | day | | | | | | + + + + + + + + | CILOSTAZOL | 1 tab two | | | CILOSTAZOL | 3866822771 | Laurance W | | 100 MG | times per | | | | 1 | Lila MD | | TABS | day | | | | | | + + + + + + + + | ONDANSETRO | 1 tab | | | ONDANSETRO | 8498402945 | Laurance W | | N HCL 4 MG | every 4 | | | N HCL | 3 | Lila MD | | TABS | hours | | | | | | + + + + + + + + | LYRICA 50 | 1 tab | | | PREGABALIN | 3420149216 | Laurance W | | MG CAPS | three | | | | 8 | Lila MD | | | times per | | | | | | | | day | | | | | | + + + + + + + + | KEFLEX 500 | one po TID | | | CEPHALEXIN | 1550769058 | Susanna | | MG CAPS | | | | | 1 | Medel MD | + + + + + + + + | NYSTATIN-T | Apply thin | | | NYSTATIN-T | 7534975650 | Ambrose | | RIAMCINOLO | layer to | | | RIAMCINOLO | 5 | Ankur DNP | | NE | affected | | | NE | | MANUFACTURING TECHNOLOGY ANALYST | | 728683-7.1 | area BID | | | | | | | UNIT/GM-% | prn for | | | | | | | CREA | itching | | | | | | + + + + + + + + | FLUCONAZOL | take one | | | FLUCONAZOL | 5011571120 | Susanna | | E 150 MG | tablet PO | | | E | 1 | Gianfranco LUIS | | TABS | x 1 repeat | | | | | | | | in 3 days | | | | | | + + + + + + + + | ASPIRIN | take 1 | | | ASPIRIN | 0653785055 | Bailey W | | 325 MG [...] tab by | | | CLOPIDOGRE | 8740917432 | Laurance W | | MG TABS | mouth one | | | L | 1 | Lila MD | | | time per | | | BISULFATE | | | | | day | | | | | | + + + + + + + + | LYRICA 50 | 1 tab | | | PREGABALIN | 9765927387 | Laurance W | | MG CAPS | three | | | | 8 | Lila MD | | | times per | | | | | | | | day | | | | | | + + + + + + + + | GLUCOPHAGE | 1 tab one | | | METFORMIN | 5730981826 | Laurance W | | XR 500 MG | time per | | | HCL | 3 | Lila MD | | [id number] | day | | | | | | + + + + + + + + | MECLIZINE | One tab by | | | MECLIZINE | 8375277275 | Laurance W | | HCL 25 [...] 10ml's two | | | METFORMIN | 6989279269 | Laurance W | | MG/5ML | [...] Take 2 | | | GABAPENTIN | 8133089521 | Laurance W | | 300 MG [...] TAB one | | | VALSARTAN | 3429409711 | Bailey W | | 160 MG | time per | | | | 8 | Lila MD | | TABS | day | | | | | | + + + + + + + + | DULOXETINE | 1 tab one | | | DULOXETINE | 3057513826 | Bailey W | | HCL 30 MG | time per | | | HCL | 6 | Lila MD | | CPEP | day | | | | | | + + + + + + + + | GABAPENTIN | take 2 | | | GABAPENTIN | 5696975852 | Laurance W | | 300 MG [...] tab one | | | DULOXETINE | 6500142807 | Laurance W | | HCL 30 MG | time per | | | HCL | 6 | Lila MD | | CPEP | day | | | | | | + + + + + + + + | VICTOZA 18 | 1.2 mg | | | LIRAGLUTID | 9851877145 | Laurance W | | MG/3ML | injected | | | E | 2 | Lila MD | | SOPN | martin | | | | | | + + + + + + + + | DIOVAN 320 | 1 TAB one | | | VALSARTAN | 5510064796 | Laurance W | | MG TABS | time per | | | | 4 | Lila MD | | | day | | | | | | + + + + + + + + | MECLIZINE | One tab by | | | MECLIZINE | 4131638512 | Laurance W | | HCL 25 [...] one time | | | VALSARTAN | 4776608101 | Mariano | | MG TABS | per day | | | | 4 | Ariella | | | | | | | | CCMA | + + + + + + + + | GABAPENTIN | take 2 | | | GABAPENTIN | 2993845317 | Mariano | | 300 MG | [...] Take one | | | OMEPRAZOLE | 7947610371 | Laurance W | | 40 MG [...] take 2 | | | GABAPENTIN | 8376601632 | Laurance W | | 300 MG [...] two times | | | MECLIZINE | 4150224587 | Laurance W | | HCL 25 MG | per day | | | HCL | 0 | Lila MD | | TABS | | | | | | | + + + + + + + + | DIOVAN 320 | 1 tab one | | | VALSARTAN | 3318233473 | Laurance W | | MG TABS | time per | | | | 4 | Lila MD | | | day | | | | | | + + + + + + + + | VICTOZA 18 | 0.6 mg | | | LIRAGLUTID | 8085756239 | Laurance W | | MG/3ML | [...] take 1 | | | ASPIRIN | 1807332658 | Rogers | | 325 MG | [...] tab one | | | SITAGLIPTI | 5269918519 | Bailey W | | 100 MG | time per | | | N | 2 | Lila MD | | TABS | day | | | PHOSPHATE | | | + + + + + + + + | DIOVAN 160 | 1 by mouth | | | VALSARTAN | 3384569150 | Bailey W | | MG TABS | every day | | | | 4 | Lila MD | + + + + + + + + | GABAPENTIN | 2 tabs two | | | GABAPENTIN | 5874580304 | Laurance W | | 300 MG | times per | | | | 5 | Lila MD | | CAPS | day | | | | | | + + + + + + + + | LANTUS 100 | 56 units | | | INSULIN | 8383098820 | Laurance W | | UNIT/ML | in the | | | GLARGINE | 3 | Lila MD | | SOLN | morning | | | | | | + + + + + + + + | RIOMET 500 | 10ml's two | | | METFORMIN | 9725175485 | Laurance W | | MG/5ML | [...] tab at | | | GABAPENTIN | 5556421725 | Franciscoance W | | 100 MG [...] 28 units | | | INSULIN | 1934306354 | Bailey W | | UNIT/ML | two times | | | GLARGINE | 3 | Lila MD | | SOLN | per day | | | | | | + + + + + + + + | LISINOPRIL | take 1 | | | LISINOPRIL | 5185875623 | Rogers | | 20 MG | tablet by | | | | 1 | Laith LUIS | | TABS | mouth | | | | | | | | daily | | | | | | + + + + + + + + | MECLIZINE | two times | | | MECLIZINE | 4499447058 | Mariano | | HCL 25 MG | per day | | | HCL | 0 | Ariella | | TABS | | | | | | CCMA | + + + + + + + + | ERGOCALCIF | One | | | ERGOCALCIF | 4266750522 | Mariano | | QUANG 54738 | capsule by | | | QUANG [...] two times | | | GABAPENTIN | 7474935220 | Mariano | | 100 MG | per day | | | | 1 | Ariella | | CAPS | | | | | | CCMA | + + + + + + + + | METFORMIN | two times | | | METFORMIN | 5949951407 | Mariano | | HCL 1000 | per day | | | HCL | 5 | Ariella | | MG TABS | | | | | | CCMA | + + + + + + + + | RIOMET 500 | 10ml QAM | | | METFORMIN | 8843848753 | Mariano | | MG/5ML | Liquid due | | | HCL | 1 | Ariella | | SOLN | to | | | | | CCMA | | | Dysphagia | | | | | | + + + + + + + + | ASPIRIN EC | take 1 | | | ASPIRIN | 6041384418 | Mariano | | 325 MG | tablet | | | | 1 | Ariella | | TBEC | daily | | | | | CCMA | + + + + + + + + | ASPIRIN 81 | one time | | | ASPIRIN | 1225966787 | Mariano | | MG ORAL | per day | | | | 5 | Ariella | | TABLET | | | | | | CCMA | + + + + + + + + | GABAPENTIN | 1 by mouth | | | GABAPENTIN | 5924800725 | Laurance W | | 100 MG [...] take 1 | | | ATORVASTAT | 6941946222 | Laurance W | | MG TABS | tablet by | | | IN CALCIUM | 3 | Lila MD | | | mouth | | | | | | | | daily | | | | | | + + + + + + + + | ASPIRIN EC | take 1 | | | ASPIRIN | 6918448049 | Rogers | | 325 MG | tablet | | | | 1 | Laith MD | | TBEC | daily | | | | | | + + + + + + + + | RELION | Use to | | | GLUCOSE | 3082400180 | Bailey W | | BLOOD | test BG | | | BLOOD | 4 | Lila MD | | GLUCOSE | one time | | | | | | | TEST STRP | per day | | | | | | + + + + + + + + | RIOMET 500 | 10ml QAM | | | METFORMIN | 2994445285 | Laurance W | | MG/5ML | Liquid due | | | HCL | 1 | Lila MD | | SOLN | to | | | | | | | | Dysphagia | | | | | | + + + + + + + + | ERGOCALCIF | One | | | ERGOCALCIF | 0585958650 | Laurance W | | QUANG 62204 | capsule by | | | QUANG [...] one tablet | | | DOCUSATE | 0354424104 | Laurance W | | MG CAPS | by mouth | | | SODIUM | 0 | Lila MD | | | at bedtime | | | | | | + + + + + + + + | GABAPENTIN | one tablet | | | GABAPENTIN | 0530179925 | Laurance W | | 100 MG [...] by mouth | | | MECLIZINE | 7059652828 | Laurance W | | HCL 25 [...] by mouth | | | LISINOPRIL | 5640424209 | Laurance W | | 5 MG TABS | one time | | | | 1 | Lila MD | | | per day | | | | | | + + + + + + + + | COLACE 100 | one tablet | | | DOCUSATE | 1037062884 | Laurance W | | MG CAPS | by mouth | | | SODIUM | 0 | Lila MD | | | at bedtime | | | | | | + + + + + + + + | MECLIZINE | 1 by mouth | | | MECLIZINE | 4163391536 | Laurance W | | HCL 25 [...] one tablet | | | GABAPENTIN | 6629310913 | Laurance W | | 100 MG [...] one tablet | | | METFORMIN | 5180041710 | Laurance W | | HCL 1000 | by mouth | | | HCL | 5 | Lila MD | | MG TABS | twice a | | | | | | | | day | | | | | | + + + + + + + + | ASPIRIN 81 | 1 by mouth | | | ASPIRIN | 3611035172 | Laurance W | | MG ORAL | every day | | | | 5 | Lila MD | | TABLET | | | | | | | + + + + + + + + | HUMALOG | BS <150 - | | | INSULIN | 1888213106 | Tiesha | | 100 | No [...] 56 units | | | INSULIN | 5028366862 | Bailey W | | UNIT/ML | [...] | | | | | | | MANUFACTURING TECHNOLOGY ANALYST | + + + + + + [...] [address] | | | | [address] [facility] [address], | | | | [place], [address], | | | | | + + + + | Referral | | Ophthalmology Consult | | | | Huong Rose, | | | | [address], [place], | | | | [place], [address] | | | | | + + + + | Referral | | Ophthalmology Consult | | | | [place]ong [place], | | | | [address], [place], | | | | [place], [address] | | | | | + + + + | Referral | | [facility] | | | | Dian Atkins, [address] | | | [address], | | | | [place], [address] | | | | | + + + + +---+ + | | Referral excluded from report: | +---+ + + + + + | Referral | | [facility] | | | | Dian Milly, [address] | | | | [address] [facility], | | | | [place], [address] | | | | | + + [...] | + + + + + | [id number] | Depression | | | | | Screening | | | + + + + + | [id number] | Overweight | | | + + + + + | [id number] | Overweight | | | + + + + + | [id number] | Overweight | | | + + + + + | [id number] | Overweight | | | + + + + + | [id number] | Overweight | | | + + + + + | CPT-60363 | Glucose by monitor | | | + + + + + | [id number] | Overweight | | | + + + + + | UA CULT IF MULTIPLE | Urinalysis Culture | | | | | If Indicat | | | + + + + + | GLYCO HGB 30808 | Glyco Hemoglobin, | | | | | A1C | | | + + + + + | CPT-31092 | UA Dipstick | | | + + + + + | CPT-93965 07308 | XR Knee WgtB Bilat | | | | | AP W 1-2V-Rt | | | + + + + + | [id number] | Overweight | | | + + + + + | GLYCO HGB 18397 | Glyco Hemoglobin, | | | | | A1C | | | + + + + + | CPT-18854 | Adm 1st Inj No | | | | | counseling or >18 | | | + + + + + | CPT-67677 | Prevnar 13 | | | | | (Pneumococcal >7 | | | + + + + + | [id number] | Overweight | | | + + + + + | CPT-51805 | Physical Therapy | | | | | Evaluation | | | + + + + + | CPT-69046 | Glucose by monitor | | | + + + + + | [id number] | Overweight | | | + + + + + | [id number] | Overweight | | | + + + + + | GLYCO HGB 03801 | Glyco Hemoglobin, | | | | | A1C | | | + + + + + | GLYCO HGB 43746 | Glyco Hemoglobin, | | | | | A1C | | | + + + + + | [facility]-[id number] | Overweight | | | + + + + + | RISK 35694 | Lipid Profile | | | + + + + + | GLYCO HGB 98100 | Glyco Hemoglobin, | | | | | A1C | | | + + + + + +---+ + | | Order excluded from report: | +---+ + + + + + + | VIT D HYDR 43945 | Vit D, 25 hydroxy | | [...]
--- OUTSIDE RECORDS SUMMARY | ~2019-03-25 | XMS | Clinical Summary ---
Demographics + + + | Address | [address] [place] [address] | | | [place], [place] [address] | + + + | Home Phone | | + + + | Preferred Language | Unknown | + + + | Marital Status | S | + + + | Anglican Affiliation | Unknown | + + + | Race | White | + + + | Ethnic Group | or | + + + Author + + + | Author | [facility] | + + + | Organization | [facility] | + + + | Address | [address] | | | [place] [address] | + + + | Phone | Unavailable | + + + Care Team Providers + + + + | Care Looping Inspector Name | Role | Phone | + [...] tion | | +---------+---------+---------+---------+---------+---------+---------+---------+---------+ | VACCINA | [id number] | | Active | | [facility] | | Medicat | | | TION | 02 | / | | /03 | [place] | | ion | | | FOR | (SNOMED | | | | DNP [employer]EWARD/STEWARDESS [employer] CAR | | given | | | STREP [...] | | | +---------+---------+---------+---------+---------+---------+---------+---------+---------+ | OSTEOAR | [id number] | | Active | | Edna | | Osteoar | | | THRITIS | 07 | /16 | | /18 | Hope | | thritis | | | , KNEE, | (SNOMED | | | | [facility] | | of | | | RIGHT | CT) | | | | | | knee | | +---------+---------+---------+---------+---------+---------+---------+---------+---------+ | CONSTIP | [id number] | | Active | | [facility] | | Constip | | | ATION | 8 | /13 | | /13 | [place] | | ation | | | | (SNOMED | | | | DNP STEWARD/STEWARDESS CLUB CAR | | | | | | CT) | | | | | | | | +---------+---------+---------+---------+---------+---------+---------+---------+---------+ | TYPE 2 | E11.21 | | Active | | [facility] | | Type 2 | | | DIABETE | (ICD-10 | / | | | [place] | | diabete | | | S | -CM) | | | | DNP STEWARD/STEWARDESS CLUB CAR | | s | | | MELLITU [...] athy | | +---------+---------+---------+---------+---------+---------+---------+---------+---------+ | DIABETE | [id number] | | Inactiv | | [facility] | | Type 2 | | | S | 6 | /08 | e | /08 | [place] | | diabete | | | MELLITU | (SNOMED | | | | DNP [employer]EWARD/[employer]EWARDESS [employer] CAR | | s | | | S, TYPE | CT) | | | | | | mellitu | | | II, ON | | | | | | | s | | | | | | | | | | | | | INSULIN | | | | | | | | | +---------+---------+---------+---------+---------+---------+---------+---------+---------+ | DEHYDRA | [id number] | | Resolve | | [facility] | | Dehydra | | | TION | 6 | | d | | [place] | | tion | | | | (SNOMED | | | | DNP STEWARD/STEWARDESS CL[employer] CAR | | | | | | CT) | | | | | | | | +---------+---------+---------+---------+---------+---------+---------+---------+---------+ | DIZZINE | [id number] | | Inactiv | | [facility] | | Dizzine | | | SS | 03 | | e | | [place] | | ss | | | | (SNOMED | | | | DNP STEWARD/STEWARDESS CL[employer] CAR | | | | | | CT) | | | | | | | | +---------+---------+---------+---------+---------+---------+---------+---------+---------+ | ANEMIA | [id number] | | Inactiv | | [facility] | | Anemia | | | | 00 | /10 | e | /10 | [place] | | | | | | (SNOMED | | | | DNP STEWARD/STEWARDESS CLUB CAR | | | | | | CT) | | | | | | | | +---------+---------+---------+---------+---------+---------+---------+---------+---------+ | CONSTIP | [id number] | | Inactiv | | [facility]rose | | Constip | | | ATION | 8 | / | e | /13 | [place] | | ation | | | | (SNOMED | | | | DNP STEWARD/STEWARDESS CL[employer] CAR | | | | | | CT) | | | | | | | | +---------+---------+---------+---------+---------+---------+---------+---------+---------+ | SYNCOPE | [id number] | | Resolve | | [facility] | | Syncope | | | | 07 | / | d | /10 | [place] | | | | | | (SNOMED | | | | DNP STEWARD/STEWARDESS CL[employer] CAR | | | | | | CT) | | | | | | | | +---------+---------+---------+---------+---------+---------+---------+---------+---------+ | DYSPHAG | R13.10 | | Resolve | | [facility] | | Dysphag | | | IA | (ICD-10 | | d | | [place] | | ia, | | | UNSPECI | -CM) | | | | DNP [employer]EWARD/[employer]ESS [employer] CAR | | unspeci | | | FIED | | | | | | | fied | | +---------+---------+---------+---------+---------+---------+---------+---------+---------+ | PARESTH | [id number] | | Inactiv | | [facility]rose | | Paresth | | | ESIA, | | | e | | [place] | | esia of | | | HANDS | (SNOMED | | | | DNP STEWARD/STEWARDESS CL[employer] CAR | | hand | | | | CT) | | | | | | | | +---------+---------+---------+---------+---------+---------+---------+---------+---------+ | DIABETI | [id number] | | Inactiv | | Ambrose | | Diabeti | | | C | | | e | | [place] | | c | | | PERIPHE | (SNOMED | | | | DNP STEWARD/STEWARDESS CL[employer] CAR | | periphe | | | RAL [...] | -CM) | | | | DNP STEWARD/STEWARDESS CLUB CAR | | unspeci | | | FIED | | | | | | | fied | | +---------+---------+---------+---------+---------+---------+---------+---------+---------+ | VAGINIT | [id number] | | Resolve | | Ambrose | | Vaginit | | | IS | 1 | /31 | d | /31 | [place] | | is | | | | (SNOMED | | | | DNP STEWARD/STEWARDESS CLUB CAR | | | | | | CT) | | | | | | | | +---------+---------+---------+---------+---------+---------+---------+---------+---------+ | DYSURIA | [id number] | | Resolve | | Ambrose | | Dysuria | | | | 1 | /31 | d | /31 | [place] | | | | | | (SNOMED | | | | DNP STEWARD/STEWARDESS CLUB CAR | | | | | | CT) | | | | | | | | +---------+---------+---------+---------+---------+---------+---------+---------+---------+ | EDEMA | [id number] | | Inactiv | | Ambrose | | Edema | | | | 08 | /15 | e | / | [place] | | | | | | (SNOMED | | | | DNP STEWARD/STEWARDESS CLUB CAR | | | | | | CT) | | | | | | | | +---------+---------+---------+---------+---------+---------+---------+---------+---------+ | RENAL | [id number] | | Inactiv | | [facility] | | Acute | | | FAILURE | 1 | | e | / | [place] | | renal | | | , ACUTE | (SNOMED | | | | DNP STEWARD/STEWARDESS [employer] CAR | | failure | | | | CT) | | | | | | | | | | | | | | | | syndrom | | | | | | | | | | e | | +---------+---------+---------+---------+---------+---------+---------+---------+---------+ | DIABETE | [id number] | | Inactiv | | Ambrose | | Periphe | | | S | 02 | / | e | /01 | [place] | | ral | | | MELLITU | (SNOMED | | | | DNP STEWARD/[employer]ESS [employer] CAR | | circula | | | S, [...] | -CM) | | | | DNP STEWARD/STEWARDESS CL[employer] CAR | | s | | | DIABETI [...] ropathy | | +---------+---------+---------+---------+---------+---------+---------+---------+---------+ | LOCALIZ | [id number] | | Resolve | | [facility] | | Disorde | | | ED | 09 | /30 | d | /30 | [place] | | r of | | | SWELLIN | (SNOMED | | | | DNP [employer] CAR | | forearm | | | G [...] | | | +---------+---------+---------+---------+---------+---------+---------+---------+---------+ | UTI | [id number] | | Resolve | | [facility] | | Urinary | | | | 5 | /13 | d | /13 | [place] | | tract | | | | (SNOMED | | | | DNP [employer]EWARD/[employer]ESS [employer] CAR | | infecti | | | | CT) | | | | | | ous | | | | | | | | | | disease | | +---------+---------+---------+---------+---------+---------+---------+---------+---------+ | TYPE 2 | E11.21 | | Inactiv | | [facility] | | Type 2 | | | DIABETE | (ICD-10 | /19 | e | / | [place] | | diabete | | | S | -CM) | | | | DNP STEWARD/STEWARDESS CL[employer] CAR | | s | | | MELLITU [...] athy | | +---------+---------+---------+---------+---------+---------+---------+---------+---------+ | DEMENTI | [id number] | | Inactiv | | [facility] | | Procedu | | | A | | | e | | [place] | | re | | | SCREENI | (SNOMED | | | | DNP [employer]EW[employer] CAR | | carried | | | NG | CT) | | | | | | out on | | | | | | | | | | | | | | | | | | | | subject | | +---------+---------+---------+---------+---------+---------+---------+---------+---------+ | CHANGE | [id number] | | Inactiv | | [facility] | | Altered | | | IN | 9 | /13 | e | /13 | [place] | | bowel | | | BOWEL | (SNOMED | | | | DNP STEWARD/STEWARDESS CL[employer] CAR | | functio | | | HABITS | CT) | | | | | | n | | +---------+---------+---------+---------+---------+---------+---------+---------+---------+ | MILD | [id number] | | Inactiv | | [facility] | | Mild | | | COGNITI | | | e | | [place] | | cogniti | | | VE | (SNOMED | | | | DNP [employer]EWARD/[employer]ESS [employer] CAR | | ve | | | IMPAIRM | CT) | | | | | | disorde | | | ENT | | | | | | | r | | +---------+---------+---------+---------+---------+---------+---------+---------+---------+ | DIABETE | [id number] | | Inactiv | | [facility]rose | | Diabeti | | | S | 753586 | /11 | e | / | [place] | | c | | | MELLITU | (SNOMED | | | | DNP STEWARD/STEWARDESS CL[employer] CAR | | periphe | | | S, [...] | (ICD-10 | / | | | Garbiele | | deficie | | | NCY [...] fied | | +---------+---------+---------+---------+---------+---------+---------+---------+---------+ | DIABETE | [id number] | | Active | | David W | | Diabeti | | | S | [id number] | /15 | | /15 | Theen [...] s | | +---------+---------+---------+---------+---------+---------+---------+---------+---------+ | MUSCLE | [id number] | | Active | | Christen | | Muscle | | | PAIN | 1 | 07 | | /07 | J. | | pain | | | | (SNOMED | | | | [place] | | | | | | CT) | | | | ta STEWARD/STEWARDESS CL[employer] CAR | | | | +---------+---------+---------+---------+---------+---------+---------+---------+---------+ | DIABETE | [id number] | | Removed | | David W | | Diabeti | | | S | 963566 | / | | | Theen | | c [...] s | | +---------+---------+---------+---------+---------+---------+---------+---------+---------+ | MILD | 1990430 | | Removed | | Maulik | [...] uterus | | +---------+---------+---------+---------+---------+---------+---------+---------+---------+ | COLONIC | 6669539 | | Active | | Emeka | [...] | | | +---------+---------+---------+---------+---------+---------+---------+---------+---------+ | CONSTIP | [id number] | | Removed | | Emeka | | Constip | | | ATION | 8 | /13 | | /13 | Petre | | ation | | | | (SNOMED | | | | MD | | | | | | CT) | | | | | | | | +---------+---------+---------+---------+---------+---------+---------+---------+---------+ | CHANGE | 2382980 | | Removed | | Emeka | | Altered | | | IN | 9 | /13 | | /13 | Petre | | bowel | | | BOWEL | (SNOMED | | | | MD | | functio | | | HABITS | CT) | | | | | | n | | +---------+---------+---------+---------+---------+---------+---------+---------+---------+ | DECREAS | [id number] | | Active | | Emeka | | Decreas | | | ED | 6 | 13 | | 13 | Petre | | e in | | | APPETIT | (SNOMED | | | | MD | | appetit | | | E | CT) | | | | | | e | | +---------+---------+---------+---------+---------+---------+---------+---------+---------+ | WEIGHT | [id number] | | Active | | Emeka | | Abnorma | | | LOSS | 01 | 13 | | /13 | Petre | | l | | | ABNORMA | (SNOMED | | | | MD | | weight | | | L | CT) | | | | | | loss | | +---------+---------+---------+---------+---------+---------+---------+---------+---------+ | NAUSEA | 5343580 | | Active | | Emeka | | Nausea | | | ALONE | 07 | / | | /13 | Petre | | | | | | (SNOMED | | | | MD | | | | | | CT) | | | | | | | | +---------+---------+---------+---------+---------+---------+---------+---------+---------+ | RECTAL | 7574051 | | Active | | Emeka | | Rectal | | | BLEEDIN | 2 | / | | /13 | Petre | | hemorrh | | | G | (SNOMED | | | | MD | | age | | | | CT) | | | | | | | | +---------+---------+---------+---------+---------+---------+---------+---------+---------+ | DEMENTI | 0060924 | | Active | | Christen | | Dementi | | | A | 6 | /10 | | /10 | J. | | a | | | WITHOUT | (SNOMED | | | | [place] | | | | | | CT) | | | | ta [employer]EWARD/ST[employer]ESS [employer] CAR | | | | | BEHAVIO | | | | | | | | | | RAL | | | | | | | | | | DISTURB | | | | | | | | | | ANCE | | | | | | | | | +---------+---------+---------+---------+---------+---------+---------+---------+---------+ | CHRONIC | 6858048 | | Active | | Christen | | Chronic | | | | 03 | /10 | | /10 | J. | | | | | PROGRES | (SNOMED | | | | [place] | | progres | | | SIVE | CT) | | | | ta [employer]EWARD/ST[employer]ESS [employer] CAR | | sive | | | RENAL | | | | | | | renal | | | FAILURE | | | | | | | failure | | +---------+---------+---------+---------+---------+---------+---------+---------+---------+ | ANEMIA | [id number] | | Removed | | Christen | | Anemia | | | | 00 | /10 | | /10 | J. | | | | | | (SNOMED | | | | [place] | | | | | | CT) | | | | ta STEWARD/STEWARDESS CL[employer] CAR | | | | +---------+---------+---------+---------+---------+---------+---------+---------+---------+ | DEMENTI | [id number] | | Removed | | Christen | | Procedu | | | A | 03 | / | | / | J. | | re | | | SCREENI | (SNOMED | | | | [place] | | carried | | | NG | CT) | | | | ta [employer]EWARD/[employer] CAR | | out on | | | | | | | | | | | | | | | | | | | | subject | | +---------+---------+---------+---------+---------+---------+---------+---------+---------+ | FALL | [id number] | | Active | | Christen | | At risk | | | RISK | | | | | J. | | for | | | | (SNOMED | | | | [place] | | falls | | | | CT) | | | | ta STEWARD/[employer]ESS [employer] CAR | | | | +---------+---------+---------+---------+---------+---------+---------+---------+---------+ | DIABETE | 2330738 | | Resolve | | Christen | | Diabeti | | | S | [id number] | /14 | d | /15 | J. | | c | | | MELLITU | (SNOMED | | | | [place] | | periphe | | | S, TYPE | CT) | | | | ta [employer]EWARD/[employer]ESS [employer] CAR | | ral | | | II [...] s | | +---------+---------+---------+---------+---------+---------+---------+---------+---------+ | CORNS | [id number] | | Inactiv | | Kali | | Corns | | | AND | | | e | | Palacio | | and | | | CALLOSI | (SNOMED | | | | DPM | | callus | | | TIES | CT) | | | | | | | | +---------+---------+---------+---------+---------+---------+---------+---------+---------+ | HAMMER | 2615082 | | Active | | Kali | [...] | | | +---------+---------+---------+---------+---------+---------+---------+---------+---------+ | ETIENNE | 9673451 | | Active | | Kali | [...] ropathy | | +---------+---------+---------+---------+---------+---------+---------+---------+---------+ | DIABETE | 5993921 | | Removed | | Kali | [...] s | | +---------+---------+---------+---------+---------+---------+---------+---------+---------+ | ONYCHOM | 6607394 | | Active | | Kali | | Onychom | | | YCOSIS | 08 | /01 | | /01 | Palacio | | ycosis | | | | (SNOMED | | | | DPM | | | | | | CT) | | | | | | | | +---------+---------+---------+---------+---------+---------+---------+---------+---------+ | HEARTBU | 2373319 | | Active | | Tiesha | | Heartbu | | | RN | 0 | /19 | | /19 | | | rn | | | | (SNOMED | | | | [place] | | | | | | CT) | | | | MD | | | | +---------+---------+---------+---------+---------+---------+---------+---------+---------+ | TYPE 2 | [id number] | | Active | | Tiesha | | Disorde | | | DIABETE | 03 | /19 | | /19 | | | r due | | | S | (SNOMED | | | | [place] | | to type | | | [...] athy | | +---------+---------+---------+---------+---------+---------+---------+---------+---------+ | UTI | 2858462 | | Removed | | Pako | | Urinary | | | | 5 | /13 | | /13 | Middlek | | tract | | | | (SNOMED | | | | auff | | infecti | | | | CT) | | | | STEWARD/STEW[employer]ESS [employer] CAR | | ous | | | | | | | | | | disease | | +---------+---------+---------+---------+---------+---------+---------+---------+---------+ | LOCALIZ | 3244030 | | Removed | | [place]lena | [...] | | | +---------+---------+---------+---------+---------+---------+---------+---------+---------+ | LIPOMA | 4575890 | | Active | | Lauranc | | Lipoma | | | | 2 | /14 | | /14 | e W | | (clinic | | | | (SNOMED | | | | Lila | | al) | | | | CT) | | | | MD | | | | +---------+---------+---------+---------+---------+---------+---------+---------+---------+ | VITAMIN | 3198310 | | Active | | David Paez | | Vitamin | | | D | 6 | / | | / | Theen | | D | | | DEFICIE | (SNOMED | | | | MD FACE | | deficie | | | NCY | CT) | | | | FACP | | ncy | | +---------+---------+---------+---------+---------+---------+---------+---------+---------+ | OBESITY | 6649206 | | Active | | David Paez | | Obesity | | | , BMI | 01 | | | | Theen | | | | | 35-39.9 | (SNOMED | | | | MD FACE | | | | | , ADULT | CT) | | | | FACP | | | | +---------+---------+---------+---------+---------+---------+---------+---------+---------+ | DIABETE | 8543720 | | Removed | | David Paez | | Diabeti | | | S | 031686 | /14 | | /15 | Theen [...] | | s | | +---------+---------+---------+---------+---------+---------+---------+---------+---------+ | HALLSOILA | 0062882 | | Inactiv | | Kali | [...] | | | +---------+---------+---------+---------+---------+---------+---------+---------+---------+ | HAMMER | 2175617 | | Inactiv | | Kali | [...] | | | +---------+---------+---------+---------+---------+---------+---------+---------+---------+ | ONYCHOM | 1002493 | | Inactiv | | Kali | | Onychom | | | YCOSIS | 08 | | e | | Palacio | [...] ropathy | | +---------+---------+---------+---------+---------+---------+---------+---------+---------+ | DIABETE | 6927790 | | Inactiv | | Kali | [...] s | | +---------+---------+---------+---------+---------+---------+---------+---------+---------+ | SCREENI | 7330861 | | Resolve | | Lauranc | | Depress | | | NG FOR | 06 | /10 | d | /10 | e W | | ion | | | DEPRESS | (SNOMED | | | | Lila | | screeni | | | ION | CT) | | | | MD | | ng | | +---------+---------+---------+---------+---------+---------+---------+---------+---------+ | SCREENI | 3841077 | | Resolve | | Lauranc | [...] | | | +---------+---------+---------+---------+---------+---------+---------+---------+---------+ | SCREENI | 1645764 | | Resolve | | Lauranc | [...] ng | | +---------+---------+---------+---------+---------+---------+---------+---------+---------+ | SCREENI | 8051970 | | Removed | | Geetha | | Alcohol | | | NG FOR | 01 | /10 | | /10 | [place]et | | | | | ALCOHOL | (SNOMED | | | | [facility] | | consump | | | ISM | CT) | | | | | | tion | | | | | | | | | | screeni | | | | | | | | | | ng | | +---------+---------+---------+---------+---------+---------+---------+---------+---------+ | SCREENI | 1483706 | | Removed | | Geetha | [...] | | | +---------+---------+---------+---------+---------+---------+---------+---------+---------+ | SCREENI | 4726918 | | Removed | | Geetha | | Depress | | | NG FOR | | | | | Red Jacket | | ion | | | DEPRESS | (SNOMED | | | | [facility] | | screeni | | | ION | CT) | | | | | | ng | | +---------+---------+---------+---------+---------+---------+---------+---------+---------+ | RENAL | 6507477 | | Removed | | Lauranc | [...] e | | +---------+---------+---------+---------+---------+---------+---------+---------+---------+ | EDEMA | 5711198 | | Removed | | Lauranc | | Edema | | | | 08 | /15 | | /11 | e W | | | | | | (SNOMED | | | | Lila | | | | | | CT) | | | | MD | | | | +---------+---------+---------+---------+---------+---------+---------+---------+---------+ | RENAL | 4847405 | | Active | | Luz | [...] e | | +---------+---------+---------+---------+---------+---------+---------+---------+---------+ | PERIPHE | 3640538 | | Active | | Lauranc | | Periphe | | | RAL | | | | /15 | e W | | ral | | | VASCULA | (SNOMED | | | | Lila | | vascula | | | R | CT) | | | | MD | | r | | | DISEASE | | | | | | | disease | | +---------+---------+---------+---------+---------+---------+---------+---------+---------+ | CANDIDI | 8151704 | | Active | | Susanna | | Candidi | | | ASIS, | 6 | / | | / | Medel | | asis of | | | SKIN | (SNOMED | | | | MD | | skin | | | | CT) | | | | | | | | +---------+---------+---------+---------+---------+---------+---------+---------+---------+ | DYSURIA | 4330982 | | Removed | | Erica | | Dysuria | | | | 1 | / | | | Paul | | | | | | (SNOMED | | | | MA | | | | | | CT) | | | | | | | | +---------+---------+---------+---------+---------+---------+---------+---------+---------+ | VAGINIT | 8530358 | | Removed | | Erica | | Vaginit | | | IS | 1 | /31 | | / | Paul | | is | | | | (SNOMED | | | | MA | | | | | | CT) | | | | | | | | +---------+---------+---------+---------+---------+---------+---------+---------+---------+ | RLQ | 2678281 | | Resolve | | Lauranc | | Right | | | PAIN | 02 | | d | 11 | e W | | lower | | | | (SNOMED | | | | Lila | | quadran | | | | CT) | | | | MD | | t pain | | +---------+---------+---------+---------+---------+---------+---------+---------+---------+ | ABDOMIN | 9008946 | | Resolve | | Lauranc | [...] | | | +---------+---------+---------+---------+---------+---------+---------+---------+---------+ | KNEE | 6640828 | | Active | | Lauranc | | Knee | | | PAIN | 3 | /14 | | /14 | e W | | pain | | | | (SNOMED | | | | Lila | | | | | | CT) | | | | MD | | | | +---------+---------+---------+---------+---------+---------+---------+---------+---------+ | [facility] | | | Correct | | Lauranc | [...] e | | +---------+---------+---------+---------+---------+---------+---------+---------+---------+ | VERTIGO | 8101896 | | Active | | Luz | | Vertigo | | | | | | | / | Asad | | | | | | (SNOMED | | | | RN | | | | | | CT) | | | | | | | | +---------+---------+---------+---------+---------+---------+---------+---------+---------+ | CHEST | 5861433 | | Inactiv | | Genny | | Chest | | | PAIN | 9 | | e | /02 | Kaufman | | pain | | | | (SNOMED | | | | | | | | | | CT) | | | | | | | | +---------+---------+---------+---------+---------+---------+---------+---------+---------+ | CHEST | 6860868 | | Inactiv | | Lauranc | [...] fied | | +---------+---------+---------+---------+---------+---------+---------+---------+---------+ | CEREBRO | 6802944 | | Active | | Rogers | | Cerebro | | | VASCULA | 0 | / | | / | Laith | | vascula | | | R | (SNOMED | | | | MD | | r | | | DISEASE | CT) | | | | | | disease | | +---------+---------+---------+---------+---------+---------+---------+---------+---------+ | History | 1797986 | | Active | | Rogers | [...] | | | +---------+---------+---------+---------+---------+---------+---------+---------+---------+ | DIABETI | [id number] | | Removed | | Rogers | | Diabeti | | | C | 06 | | | / | Laith | [...] thy | | +---------+---------+---------+---------+---------+---------+---------+---------+---------+ | HYPERLI | 8661986 | | Active | | Rogers | [...] e | | +---------+---------+---------+---------+---------+---------+---------+---------+---------+ | CEREBRA | 9297911 | | Correct | | Rogers | [...] s | | +---------+---------+---------+---------+---------+---------+---------+---------+---------+ | ABDOMIN | 4611587 | | Removed | | Patricia | [...] | | | +---------+---------+---------+---------+---------+---------+---------+---------+---------+ | RLQ | 0864649 | | Removed | | Patricia | [...] fied | | +---------+---------+---------+---------+---------+---------+---------+---------+---------+ | CARPAL | 5267866 | | Active | | Rogers | | Carpal | | | 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 | | | | MD | | 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, LEFT | CT) | | | | | | e | | +---------+---------+---------+---------+---------+---------+---------+---------+---------+ | [facility] | 1694767 | | Removed | | Rogers | [...] | | | +---------+---------+---------+---------+---------+---------+---------+---------+---------+ | GAIT | 8138399 | | Active | | Rogers | | Abnorma | | | IMBALAN | 2 | | | / | Laith | | l gait | | | CE | (SNOMED | | | | MD | | | | | | CT) | | | | | | | | +---------+---------+---------+---------+---------+---------+---------+---------+---------+ | BRAIN | 0366984 | | Correct | | Rogers | [...] e | | +---------+---------+---------+---------+---------+---------+---------+---------+---------+ | PARESTH | 5186116 | | Removed | | Rogers | | Paresth | | | ESIA, | 04 | /25 | | /25 | Laith | | esia of | | | HANDS | (SNOMED | | | | MD | | hand | | | | CT) | | | | | | | | +---------+---------+---------+---------+---------+---------+---------+---------+---------+ | PERIPHE | 1751326 | | Correct | | Rogers | | Periphe | | | RAL | 06 | /25 | ion | /25 | Laith | | ral | | | NEUROPA | (SNOMED | | | | MD | | nerve | | | THY | CT) | | | | | | disease | | +---------+---------+---------+---------+---------+---------+---------+---------+---------+ | THYROID | 5197826 | | Active | | Luz | | Thyroid | | | NODULE | 05 | /20 | | /20 | Eladio | | nodule | | | | (SNOMED | | | | [facility] | | | | | | CT) | | | | | | | | +---------+---------+---------+---------+---------+---------+---------+---------+---------+ | TIA | 4770617 | | Active | | Lauranc | [...] a | | +---------+---------+---------+---------+---------+---------+---------+---------+---------+ | SYNCOPE | 5316969 | | Removed | | Lauranc | | Syncope | | | | | | | | e W | | | | | | (SNOMED | | | | Lila | | | | | | CT) | | | | MD | | | | +---------+---------+---------+---------+---------+---------+---------+---------+---------+ | GASTROP | [id number] | | Active | | Lauranc | | 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 | | | | (SNOMED | | | | Lila | | syndrom | | | | CT) | | | | MD | | e | | +---------+---------+---------+---------+---------+---------+---------+---------+---------+ | CONSTIP | [id number] | | Active | | Lauranc | | Chronic | | | ATION, | 09 | /08 | | /08 | e W | | | | | CHRONIC | (SNOMED | | | | Lila | | constip | | | | CT) | | | | MD | | ation | | +---------+---------+---------+---------+---------+---------+---------+---------+---------+ | POSTHER | [id number] | | Active | | Lauranc | | Posther | | | 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 | (SNOMED | | | | Lila | | neuralg | | | [place] | CT) | | | | MD | | ia | | +---------+---------+---------+---------+---------+---------+---------+---------+---------+ | DIZZINE | [id number] | | Removed | | Lauranc | | Dizzine | | | SS | 03 | /08 | | /08 | e W | | ss | | | | (SNOMED | | | | Lila | | | | | | CT) | | | | MD | | | | +---------+---------+---------+---------+---------+---------+---------+---------+---------+ | DEHYDRA | [id number] | | Removed | | Lauranc | | Dehydra | | | TION | 6 | /08 | | /08 | e W | | tion | | | | (SNOMED | | | | Lila | | | | | | CT) | | | | MD | | | | +---------+---------+---------+---------+---------+---------+---------+---------+---------+ | DIABETE | [id number] | | Removed | | Lauranc | [...] | | | +---------+---------+---------+---------+---------+---------+---------+---------+---------+ | HYPERTE | [id number] | | Active | | Lauranc | [...] TAKE 1 | | | FUROSEMIDE | [id number] | [facility] | | 80 MG | TABLET BY | | | | 5 | Ankur DNP | | TABS | MOUTH ONCE | | | | | [employer] | | | DAILY IN | | | | | | | | THE | | | | | | | | MORNING | | | | | | + + + + + + + + | VOLTAREN 1 | apply 3-4 | | | DICLOFENAC | [id number] | Fredy | | % GEL | [...] TAKE 1 | | | CHOLECALCI | [id number] | [facility] | | 1000 UNIT | TABLET BY | | | FEROL | 0 | Ankur DNP | | TABS | MOUTH ONCE | | | | | [employer] | | | DAILY IN | | | | | | | | THE | | | | | | | | MORNING | | | | | | + + + + + + + + | ONETOUCH | Use to | | | BLOOD | 6723901137 | [facility] | | VERIO | test | | | GLUCOSE | 1 | Ankur DNP | | w/Device | glucose | | | MONITORING | | [employer] | | KIT | four times | [...] use with | | | BLOOD | 6730546213 | Edna | | PRIME | test [...] Use strip | | | GLUCOSE | 5980296218 | [facility] | | ULTRA BLUE | to checl | | | BLOOD | 0 | Ankur DNP | | STRP | glucose | | | | | [employer] | | | four times | | [...] | USE | | | INSULIN | [id number] | [facility] | | INSULIN | SYRINGE 4 | | | SYRINGE-NE | 2 | Ankur DNP | | SYRINGE | TIMES | | | EDLE U-100 | | [employer] | | 31G X | DAILYDx | | | | | | | 10/09" 0.5 | Code | | | | | | | ML | E11.40 | | | | | | + + + + + + + + | BD PEN | USE PEN | | | INSULIN | 1686103640 | [facility] | | NEEDLE | NEEDLE(S) | | | PEN NEEDLE | 9 | Ankur DNP | | SHORT U/F | 4 TIMES | | | | | [employer] | | 31G X 8 MM | DAILYDx | | | | | | | | Code | | | | | | | | E11.40 | | | | | | + + + + + + + + | ONETOUCH | Use strip | | | GLUCOSE | [id number] | [facility] | | VERIO STRP | to checl | | | BLOOD | 0 | Ankur DNP | | | glucose | | | | | [employer] | | | four times | | [...] Use to | | | GLUCOSE | 2043600540 | Edna | | BLOOD | check [...] Take one | | | IRBESARTAN | [id number] Thien Boggs | | 300 MG | tablet | | | | 3 | Ankur DNP | | TABS | daily | | | | | [employer] | + + + + + + + + | BD INSULIN | Use to | | | INSULIN | 6129597632 | [facility] | | SYRINGE | inject | | | SYRINGE-NE | 6 | Ankur DNP | | ULTRAFINE | insulin 5 | | | EDLE U-100 | | [employer] | | 29G X 05/28" | times per | | | | | | | 0.5 ML | day | | | | | | + + + + + + + + | RELION | Use to | | | GLUCOSE | 8955368184 | [facility] | | BLOOD | check | | | BLOOD | 4 | Ankur DNP | | GLUCOSE | blood | | | | | [employer] | | TEST STRP | sugars | [...] use with | | | BLOOD | 6404529199 | [facility] | | PRIME | test | | | GLUCOSE | 2 | Ankur DNP | | MONITOR | strips to | | | MONITORING | | [employer] | | DYLAN | test BG | | | SUPPL | | | | | daily | | | | | | + + + + + + + + | RELION | use when | | | GLUCOSE | 4367970422 | [facility] | | BLOOD | testing BG | | | BLOOD | 4 | Ankur DNP | | GLUCOSE | | | | | | [employer] | | TEST STRP | | | | | | | + + + + + + + + | BIOTIN 1 | Take one | | | BIOTIN | 0865962548 | Lorri | | MG CAPS | daily in | | | | 2 | Prabhakar | | | the AM | | | | | NCMA | + + + + + + + + | BASAGLAR | 68 Units | | | INSULIN | 4857821101 | [facility] | | KWIKPEN | every | | | GLARGINE | 9 | Ankur DNP | | 100 | morning | | | | | [employer] | | UNIT/ML | (34 units | | | | | | | SOPN | on each | | | | | | | | side) | | | | | | + + + + + + + + | BASAGLAR | 65 Units | | | INSULIN | 4172472239 | [facility] | | KWIKPEN | every | | | GLARGINE | 9 | Ankur DNP | | 100 | morning | | | | | [employer] | | UNIT/ML | | | | | | | | SOPN | | | | | | | + + + + + + + + | BASAGLAR | 60 Units | | | INSULIN | 3902818241 | [facility] | | KWIKPEN | every | | | GLARGINE | 9 | Ankur DNP | | 100 | morning | | | | | [employer] | | UNIT/ML | | | | | | | | SOPN | | | | | | | + + + + + + + + | RELION | Use daily | | | GLUCOSE | 5290908317 Thien Boggs | | BLOOD | to check | | | BLOOD | 4 | Ankur DNP | | GLUCOSE | blood | | | | | [employer] | | TEST STRP | sugar | | | | | | + + + + + + + + | DIABETIC | 1 pair per | | | DIABETIC | | [facility] | | ORTHOTIC | custom | | | ORTHOTIC | | Ankur DNP | | SHOES | fit from | | | SHOES | | [facility] [facility] | | | podiatry | | | | | | | | E11.65, | | | | | | | | e11.21 | | | | | | + + + + + + + + | DIABETIC | 1 pair per | | | FOOT CARE | [id number] | [facility] | | INSOLES | custom | | | PRODUCTS | 1 | Ankur DNP | | | fit from | | | | | [facility] [employer] [facility] | | | podiatry | | | | | | | | Dx. | | | | | | | | E11.65, | | | | | | | | e11.21 | | | | | | + + + + + + + + | BD INSULIN | Use 5 | | | INSULIN | 5927252860 | [facility] | | SYRINGE | times | | | SYRINGE-NE | 1 | Ankur DNP | | ULTRAFINE | daily to | | | EDLE U-100 | | [employer] | | 29G X 05/28" | inject [...] Use daily | | | INSULIN | 8292027193 | [facility] | | NEEDLE | to inject | | | PEN NEEDLE | 0 | Ankur DNP | | ULTRAFINE | insulin | | | | | [employer] | | 29G X | | | | | | | | 12.7MM | | | | | | | + + + + + + + + | RELION PEN | | | | INSULIN | 6800776432 | [facility] | | NEEDLES | | | | PEN NEEDLE | 4 | Ankur DNP | | 31G X 8 MM | | | | | | [employer] | + + + + + + + + | MISC | | | | MISC | | [facility] | | | | | | | | Ankur DNP | | | | | | | | [employer] | + + + + + + + + | NERVE | | | | NERVE | | [facility] | | PAIN | | | | PAIN | | Ankur DNP | | | | | | | | [employer] | + + + + + + + + | HEARTBU | | | | HEARTBU | | [facility] | | RN/NAUSEA* | | | | RN/NAUSEA* | | Ankur DNP | | | | | | | | [employer] | + + + + + + + + | STROKE | | | | STROKE | | [facility] | | PREVENTION | | | | PREVENTION | | Ankur DNP | | | | | | | | [employer] | + + + + + + + + | BLOOD | | | | BLOOD | | [facility] | | PRESSURE | | | | PRESSURE | | Ankur DNP | | * | | | | * | | [employer] | + + + + + + + + | DIABETE | | | | DIABETE | | [facility] | | S | | | | S | | Ankur DNP | | | | | | | | [employer] | + + + + + + + + | MIRALAX | 17 gm | | | POLYETHYLE | 5570232835 | [facility] | | POWD | daily | | | NE GLYCOL | 2 | Ankur DNP | | | stirred | | | 3350 | | [employer] | | | into 4-8 | | [...] 1 pill | | | DOCUSATE | [id number] | [facility] | | MG CAPS | twice | | | SODIUM | 0 | Ankur DNP | | | daily for | | | | | [employer] | | | soft | | | | | | | | stools | | | | | | + + + + + + + + | NOVOLOG | 12 Units | | | INSULIN | 9030216956 | [facility] | | 100 | before | | | ASPART | 1 | Ankur DNP | | UNIT/ML | meals | | | | | [employer] | | SOLN | SS:150-175 | | [...] 1 capsule | | | PREGABALIN | 9480698095 | [facility] | | MG CAPS | three | | | | 8 | Ankur DNP | | | times | | | | | [employer] | | | daily for | | | | | | | | neuropathy | | | | | | + + + + + + + + | LYRICA 100 | 1 tab | | | PREGABALIN | 2597997996 | [facility] | | MG CAPS | three | | | | 8 | Ankur DNP | | | times per | | | | | [employer] | | | day. Pt | | | | | | | | states as | | | | | | | | needed | | | | | | + + + + + + + + | PROCHLORPE | Insert one | | | PROCHLORPE | 6013354697 | [facility] | | RAZINE 25 | | | | RAZINE | 0 | Ankur DNP | | MG SUPP | suppositor | | | | | [employer] | | | y rectally | | | | | | | | every 24 | | | | | | | | hours as | | | | | | | | needed | | | | | | + + + + + + + + | VICTOZA 18 | .6 mg x 1 | | | LIRAGLUTID | [id number] | [facility] | | MG/3ML | week then | | | E | 2 | Ankur DNP | | SOPN | 1.2 mg | | | | | [employer] | | | daily per | | | | | | | | week | | | | | | + + + + + + + + | RELION PEN | | | | INSULIN | 2874401397 | David | | NEEDLES | | | | PEN NEEDLE | 4 | Mark DO | | 31G X 8 MM | | | | | | | + + + + + + + + | NOVOLOG | 3U before | | | INSULIN | 8653955410 | Scarlett | | 100 | lunch [...] 1 tid | | | PREGABALIN | 0419964304 | Christen Ramirez | | MG CAPS | | | | | 8 | [place] | | | | | | | | [employer] | + + + + + + + + | PROMETHAZI | Take one | | | PROMETHAZI | 5462097797 | Edna | | NE HCL 25 [...] Insert one | | | PROCHLORPE | 4136504663 | Edna | | RAZINE 25 | [...] Take one | | | CLONAZEPAM | 0097337463 | Edna | | 0.5 MG | [...] Take one | | | PANTOPRAZO | 2285653789 | [facility] | | LE SODIUM | tablet by | | | LE SODIUM | 8 | Ankur DNP | | 40 MG TBEC | mouth once | | | | | [employer] | | | daily | | | | | | + + + + + + + + | NITROFURAN | Take one | | | NITROFURAN | 4393419712 | Edna | | TOIN | capsule [...] x 1 | | | LIRAGLUTID | [id number] | Christen Escudero. | | MG/3ML | week then | | | E | 2 | [place] | | SOPN | 1.2 mg | | | | | [employer] | | | daily per | | | | | | | | week | | | | | | + + + + + + + + | VICTOZA 18 | Inject 0.6 | | | LIRAGLUTID | 5968644355 | Christen J. | | MG/3ML | mg daily | | | E | 2 | [place] | | SOPN | | | | | | [employer] | + + + + + + + + | DRAMAMINE | take 1-2 | | | DIMENHYDRI | 3430266494 | Christen Ramirez | | 50 MG TABS | tabs 4 | | | MARCELA | 2 | [place] | | | times per | | | | | [employer] | | | day as | | | | | | | | needed | | | | | | + + + + + + + + | NEURONTIN | take 1 tab | | | GABAPENTIN | 0651529790 | Christen Ramirez | | 300 MG | po tid . | | | | 4 | [place] | | CAPS | Pt states | | | | | [employer] | | | as needed | | | | | | + + + + + + + + | PIOGLITAZO | Take 1 tab | | | PIOGLITAZO | 2534565608 | Christen Ramirez | | NE HCL 15 | by mouth | | | NE HCL | 6 | [place] | | MG TABS | one time | | | | | [employer] | | | per day in | | | | | | | | the AM | | | | | | + + + + + + + + | NITROFURAN | Take one | | | NITROFURAN | 2250929639 | Edna | | TOIN | capsule [...] NITROFURAN | | | | NITROFURAN | 8027684555 | Edna | | TOIN | | [...] Take 1 | | | GLIPIZIDE | 2378523957 | [facility] | | XL 2.5 MG | tablet | | | | 1 | Ankur DNP | | [id number] | p.o. | | | | | [employer] | | | q.a.m. | | | | | | + + + + + + + + | NOVOLOG | 3U before | | | INSULIN | 5741017068 | David | | 100 | lunch [...] 3U before | | | INSULIN | 8370477719 | Christen Ramirez | | 100 | lunch and | | | LISPRO | 1 | [place] | | UNIT/ML | 5U before | | | | | [employer] | | SOLN | Dinner | | [...] <150 - | | | INSULIN | 6603220722 | Christen J. | | 100 | No insulin | | | LISPRO | 1 | [place] | | UNIT/ML | BS | | | (HUMAN) | | [employer] | | SOLN | 150-200 | | [...] Take as | | | EXENATIDE | 8668862192 | Christen Ramirez | | MCG PEN 5 | directed | | | | 1 | [place] | | MCG/0.02ML | once daily | | | | | [employer] | | SOPN | in the AM | | | | | | + + + + + + + + | BASAGLAR | 1 pen | | | INSULIN | 2117730451 | Christen Ramirez | | KWIKPEN | every 3 | | | GLARGINE | 9 | [place] | | 100 | days 56 | | | | | [employer] | | UNIT/ML | units q | | | | | | | SOPN | Day | | | | | | + + + + + + + + | BASAGLAR | 56 Units | | | INSULIN | 8650007431 | David | | KWIKPEN | every [...] Inject 0.6 | | | LIRAGLUTID | 9554231940 | Christen J. | | MG/3ML | mg daily | | | E | 2 | [place] | | SOPN | | | | | | [employer] | + + + + + + + + | VICTOZA 18 | 5 unit AM | | | LIRAGLUTID | 8539846106 | Christen J. | | MG/3ML | and 5 | | | E | 2 | [place] | | SOPN | units PM | | | | | [employer] | + + + + + + + + | BASAGLAR | 1 pen | | | INSULIN | 8621325150 | Christen J. | | KWIKPEN | every 3 | | | GLARGINE | 9 | [place] | | 100 | days 56 | | | | | [employer] | | UNIT/ML | units q | | | | | | | SOPN | Day | | | | | | + + + + + + + + | MECLIZINE | One tab by | | | MECLIZINE | 8805604623 | [facility] | | HCL 25 MG | mouth | | | HCL | 0 | Ankur DNP | | TABS | three | | | | | [employer] | | | times per | | [...] 56 Units | | | INSULIN | 5682611329 | Christen Ramirez | | KWIKPEN | by mouth | | | GLARGINE | 9 | [place] | | 100 | every | | | | | [employer] | | UNIT/ML | morning | | | | | | | SOPN | | | | | | | + + + + + + + + | SUPREP | mix and | | | NA | 3435351878 | Maulik | | BOWEL PREP | [...] mix and | | | NA | 5608597789 | Emeka | | BOWEL PREP | [...] pill BID | | | DOCUSATE | [id number] | [facility] | | MG CAPS | | | | SODIUM | 0 | Ankur DNP | | | | | | | | [employer] | + + + + + + + + | RELION | Use daily | | | GLUCOSE | 1600442320 | Tiesha | | BLOOD | to check | | | BLOOD | 4 | [place] MD | | GLUCOSE | blood | | | | | | | TEST STRP | sugar | | | | | | + + + + + + + + | DIABETIC | 1 pair per | | | DIABETIC | | Tiesha | | ORTHOTIC | custom | | | ORTHOTIC | | [place] MD | | SHOES | fit from | | | SHOES | | | | | podiatry | | | | | | | | E11.65, | | | | | | | | e11.21 | | | | | | + + + + + + + + | DIABETIC | 1 pair per | | | FOOT CARE | 6768673610 | Tiesha | | INSOLES | custom [...] 1 pill | | | CEPHALEXIN | 1026564102 | Tiesha | | MG CAPS | twice a | | | | 1 | [place] MD | | | day for 7 | | | | | | | | days | | | | | | + + + + + + + + | BD INSULIN | Use 5 | | | INSULIN | 3840958983 | [facility] | | SYRINGE | times | | | SYRINGE-NE | 1 | Ankur DNP | | ULTRAFINE | daily to | | | EDLE U-100 | | [employer] | | 29G X 1/2" | inject [...] 56 units | | | INSULIN | 0145956246 | Kaykay | | UNIT/ML | qAM | | | GLARGINE | 3 | Mora DO | | SOLN | | | | | | | + + + + + + + + | KEFLEX 500 | 1 pill | | | CEPHALEXIN | 9114836522 | Pako | | MG CAPS | twice a | | | | 1 | Middlekauf | | | day for 7 | | | | | f [employer] | | | days | | | | | | + + + + + + + + | LANTUS 100 | 50 units | | | INSULIN | 2773905598 | Pako | | UNIT/ML | once per | | | GLARGINE | 3 | Middlekauf | | SOLN | day. Pt | | | | | f [employer] | | | states she | | | | | | | | is taking | | | | | | | | 56 units | | | | | | | | every AM | | | | | | + + + + + + + + | BIOTIN 1 | Take one | | | BIOTIN | 0887696113 | [facility] | | MG CAPS | daily in | | | | 2 | Ankur DNP | | | the AM | | | | | [employer] | + + + + + + + + | VICTOZA 18 | | | | LIRAGLUTID | 5128532197 | Jesus | | MG/3ML | | | | E | 2 | Ethan MD | | SOPN | | | | | | | + + + + + + + + | BYETTA 5 | Take as | | | EXENATIDE | 7693880808 | Christen Ramirez | | MCG PEN 5 | directed | | | | 1 | [place] | | MCG/0.02ML | once daily | | | | | [employer] | | SOPN | in the AM | | | | | | + + + + + + + + | VITAMIN D | Take one | | | CHOLECALCI | 0133675682 | [facility] | | 1000 UNIT | tablet | | | FEROL | 1 | Ankur DNP | | TABS | daily in | | | | | [employer] | | | the AM | | | | | | + + + + + + + + | POTASSIUM | Take one | | | POTASSIUM | 3761355826 | [facility] | | CHLORIDE | cap daily | | | CHLORIDE | 1 | Ankur DNP | | ER 10 MEQ | in the AM | | | | | [employer] | | CR-CAPS | | | | | | | + + + + + + + + | NEURONTIN | take 1 tab | | | GABAPENTIN | 0728691891 | Jesus | | 300 MG | po tid . | | | | 4 | Ethan MD | | CAPS | Pt states | | | | | | | | as needed | | | | | | + + + + + + + + | LASIX 80 | 1 tab by | | | FUROSEMIDE | 4061454606 | [facility] | | MG TABS | mouth one | | | | 5 | Ankur DNP | | | time per | | | | | [employer] | | | day in the | | | | | | | | AM | | | | | | + + + + + + + + | LYRICA 100 | 1 tab | | | PREGABALIN | 8368185416 | Chrsiten J. | | MG CAPS | three | | | | 8 | [place] | | | times per | | | | | [employer] | | | day. Pt | | | | | | | | states as | | | | | | | | needed | | | | | | + + + + + + + + | OMEPRAZOLE | Take one | | | OMEPRAZOLE | 4668315913 | [facility] | | 40 MG | by mouth | | | | 0 | Ankur DNP | | CPDR | one time | | | | | [employer] | | | per day | | [...] tab by | | | CLOPIDOGRE | 6693601442 | [facility] | | MG TABS | mouth one | | | L | 1 | Ankur DNP | | | time per | | | BISULFATE | | [employer] | | | day in the | | | | | | | | evening | | | | | | + + + + + + + + | LIPITOR 20 | take 1 | | | ATORVASTAT | 0248172147 | [facility] | | MG TABS | tablet by | | | IN CALCIUM | 3 | Ankur DNP | | | mouth | | | | | [employer] | | | daily in | | | | | | | | the | | | | | | | | evening | | | | | | + + + + + + + + | VALSARTAN | Take one | | | VALSARTAN | 0683396712 | [facility] | | 160 MG | tablet | | | | 7 | Ankur DNP | | TABS | daily in | | | | | [employer] | | | the AM | | | | | | + + + + + + + + | PIOGLITAZO | Take 1 tab | | | PIOGLITAZO | 6529508738 | Jesus | | NE HCL 15 [...] 25 units | | | INSULIN | 1591115036 | Jseus | | UNIT/ML | two times | [...] 18 | | | | LIRAGLUTID | 6216327442 | Laurance W | | MG/3ML | | | | E | 2 | Lila MD | | SOPN | | | | | | | + + + + + + + + | BYETTA 5 | 0.02 ml | | | EXENATIDE | 7175175966 | Laurance W | | MCG PEN 5 | injection | | | | 1 | Lila MD | | MCG/0.02ML | two times | | | | | | | SOPN | per day | | | | | | + + + + + + + + | DRAMAMINE | take 1-2 | | | DIMENHYDRI | 0918058351 | Laurance W | | 50 MG [...] 1 | | | | BIOTIN | 0196672606 | Kali | | MG CAPS | | | | | 2 | Hakeem DPM | + + + + + + + + | VITAMIN D | | | | CHOLECALCI | 0179951193 | Kali | | 1000 UNIT | | | | FEROL | 1 | Hakeem DPM | | TABS | | | | | | | + + + + + + + + | POTASSIUM | | | | POTASSIUM | 1595537900 | Kali | | CHLORIDE | | | | CHLORIDE | 1 | Hakeem DPM | | ER 10 MEQ | | | | | | | | CR-CAPS | | | | | | | + + + + + + + + | BUSPIRONE | 1 TAB | | | BUSPIRONE | 7202661001 | Kali | | HCL 7.5 MG | three | | | HCL | 1 | Palacio DPM | | TABS | times per | | | | | | | | day | | | | | | + + + + + + + + | COLACE 100 | 1 tab by | | | DOCUSATE | [id number] | Kali | | MG CAPS | mouth | | | SODIUM | 0 | Palacio DPM | | | daily at | | | | | | | | bedtime | | | | | | + + + + + + + + | RELION | Use to | | | GLUCOSE | 4420899758 | Kali | | BLOOD | test BG | | | BLOOD | 4 | Hakeem DPM | | GLUCOSE | one time | | | | | | | TEST STRP | per day | | | | | | + + + + + + + + | ONDANSETRO | 1 tab | | | ONDANSETRO | 2435506267 | Kali | | N HCL 4 MG | every 4 | | | N HCL | 3 | Palacio DPM | | TABS | hours | | | | | | + + + + + + + + | CILOSTAZOL | 1 tab two | | | CILOSTAZOL | 9087869300 | Kali | | 100 MG | times per | | | | 1 | Palacio DPM | | TABS | day | | | | | | + + + + + + + + | LANTUS 100 | 25 units | | | INSULIN | [id number] | Bailey W | | UNIT/ML | two times | | | GLARGINE | 3 | Lila MD | | SOLN | per day | | | | | | + + + + + + + + | NEURONTIN | take 1 tab | | | GABAPENTIN | [id number] | Laurance W | | 300 MG [...] tab by | | | FUROSEMIDE | [id number] | Laurance W | | MG TABS | mouth one | | | | 5 | Lila MD | | | time per | | | | | | | | day | | | | | | + + + + + + + + | FUROSEMIDE | 1 tab one | | | FUROSEMIDE | [id number] | Laurance W | | 40 MG | time per | | | | 5 | Lila MD | | TABS | day | | | | | | + + + + + + + + | BUSPIRONE | 1 TAB | | | BUSPIRONE | [id number] | Laurance W | | HCL 7.5 MG | three | | | HCL | 1 | Lila MD | | TABS | times per | | | | | | | | day | | | | | | + + + + + + + + | COLACE 100 | 1 tab by | | | DOCUSATE | [id number] | Laurance W | | MG CAPS | mouth | | | SODIUM | 0 | Lila MD | | | daily at | | | | | | | | bedtime | | | | | | + + + + + + + + | LYRICA 100 | 1 tab | | | PREGABALIN | [id number] | Laurance W | | MG CAPS | three | | | | 8 | Lila MD | | | times per | | | | | | | | day | | | | | | + + + + + + + + | GABAPENTIN | Take 2 | | | GABAPENTIN | [id number] | Laurance W | | 300 MG [...] by mouth | | | TRIMETHOPR | [id number] | Laurance W | | 800-160 | twice a | | | IM-SULFAME | 1 | Lila MD | | MG TABS | day for 3 | | | THOXAZOLE | | | | | days | | | | | | + + + + + + + + | BACTRIM DS | 1 by mouth | | | TRIMETHOPR | 3090083948 | Laurance W | | 800-160 | [...] 1 tab | | | MECLIZINE | 1196843450 | Laurance W | | HCL 25 MG | three | | | HCL | 0 | Lila MD | | TABS | times per | | | | | | | | day | | | | | | + + + + + + + + | GLUCOPHAGE | 1 tab one | | | METFORMIN | 5350705765 | Laurance W | | XR 500 MG | time per | | | HCL | 3 | Lila MD | | AU71O-YMU | day | | | | | | + + + + + + + + | BD INSULIN | Use 5 | | | INSULIN | [id number] | Bailey W | | SYRINGE | [...] | | | | MISC | | Franciscoance W | | | | [...] 1 tab | | | PREGABALIN | [id number] | Laurance W | | MG CAPS [...] Use daily | | | INSULIN | [id number] | Ambrose | | NEEDLE | to inject | | | PEN NEEDLE | 0 | Ankur DNP | | ULTRAFINE | insulin | | | | | [employer]EW[employer] CAR | | 29G X | | | | | | | | 12.7MM | | | | | | | + + + + + + + + | PIOGLITAZO | Take 1 tab | | | PIOGLITAZO | [id number] | Laurance W | | NE HCL 15 | by mouth | | | NE HCL | 6 | Lila MD | | MG TABS | one time | | | | | | | | per day | | | | | | + + + + + + + + | FLUCONAZOL | take one | | | FLUCONAZOL | 1395994787 | Laurance W | | E 150 MG | tablet PO | | | E | 1 | Lila MD | | TABS | x 1 repeat | | | | | | | | in 3 days | | | | | | + + + + + + + + | LYRICA 50 | TAKE ONE | | | PREGABALIN | [id number] | Kesha | | MG CAPS | [...] Take 2 | | | GABAPENTIN | 0768980443 | Laurance W | | 300 MG [...] 0.02 ml | | | EXENATIDE | [id number] | Laurance W | | MCG PEN 5 | injection | | | | 1 | Lila MD | | MCG/0.02ML | two times | | | | | | | SOPN | per day | | | | | | + + + + + + + + | BYETTA 5 | 0.2 ml | | | EXENATIDE | [id number] | Laurance W | | MCG PEN 5 | injection | | | | 1 | Lila MD | | MCG/0.02ML | two times | | | | | | | SOPN | per day | | | | | | + + + + + + + + | LYRICA 50 | TAKE ONE | | | PREGABALIN | 8800046750 | Laurance W | | MG CAPS [...] 1 tab | | | MECLIZINE | 5456300275 | Laurance W | | HCL 25 MG | three | | | HCL | 0 | Lila MD | | TABS | times per | | | | | | | | day | | | | | | + + + + + + + + | CILOSTAZOL | 1 tab two | | | CILOSTAZOL | 0868132059 | Laurance W | | 100 MG | times per | | | | 1 | Lila MD | | TABS | day | | | | | | + + + + + + + + | ONDANSETRO | 1 tab | | | ONDANSETRO | 4792309362 | Laurance W | | N HCL 4 MG | every 4 | | | N HCL | 3 | Lila MD | | TABS | hours | | | | | | + + + + + + + + | LYRICA 50 | 1 tab | | | PREGABALIN | 2310468644 | Bailey W | | MG CAPS | three | | | | 8 | Lila MD | | | times per | | | | | | | | day | | | | | | + + + + + + + + | KEFLEX 500 | one po TID | | | CEPHALEXIN | [id number] | Susanna | | MG CAPS | | | | | 1 | Gianfranco MD | + + + + + + + + | NYSTATIN-T | Apply thin | | | NYSTATIN-T | [id number] | Ambrose | | RIAMCINOLO | layer to | | | RIAMCINOLO | 5 | Ankur DNP | | NE | affected | | | NE | | [employer] CAR | | 174024-4.1 | area BID | | | | | | | UNIT/GM-% | prn for | | | | | | | CREA | itching | | | | | | + + + + + + + + | FLUCONAZOL | take one | | | FLUCONAZOL | [id number] | Susanna | | E 150 MG | tablet PO | | | E | 1 | Gianfranco LUIS | | TABS | x 1 repeat | | | | | | | | in 3 days | | | | | | + + + + + + + + | ASPIRIN | take 1 | | | ASPIRIN | [id number] | Bailey W | | 325 MG [...] tab by | | | CLOPIDOGRE | [id number] | Laurance W | | MG TABS | mouth one | | | L | 1 | Lila MD | | | time per | | | BISULFATE | | | | | day | | | | | | + + + + + + + + | LYRICA 50 | 1 tab | | | PREGABALIN | [id number] | Laurance W | | MG CAPS | three | | | | 8 | Lila MD | | | times per | | | | | | | | day | | | | | | + + + + + + + + | GLUCOPHAGE | 1 tab one | | | METFORMIN | [id number] | Laurance W | | XR 500 MG | time per | | | HCL | 3 | Lila MD | | [id number] | day | | | | | | + + + + + + + + | MECLIZINE | One tab by | | | MECLIZINE | [id number] | Laurance W | | HCL 25 [...] 10ml's two | | | METFORMIN | [id number] | Laurance W | | MG/5ML | [...] Take 2 | | | GABAPENTIN | [id number] | Laurance W | | 300 MG [...] TAB one | | | VALSARTAN | [id number] | Laurance W | | 160 MG | time per | | | | 8 | Lila MD | | TABS | day | | | | | | + + + + + + + + | DULOXETINE | 1 tab one | | | DULOXETINE | [id number] | Laurance W | | HCL 30 MG | time per | | | HCL | 6 | Lila MD | | CPEP | day | | | | | | + + + + + + + + | GABAPENTIN | take 2 | | | GABAPENTIN | [id number] | Laurance W | | 300 MG [...] tab one | | | DULOXETINE | [id number] | Laurance W | | HCL 30 MG | time per | | | HCL | 6 | Lila MD | | CPEP | day | | | | | | + + + + + + + + | VICTOZA 18 | 1.2 mg | | | LIRAGLUTID | [id number] | Laurance W | | MG/3ML | injected | | | E | 2 | Lila MD | | SOPN | martin | | | | | | + + + + + + + + | DIOVAN 320 | 1 TAB one | | | VALSARTAN | [id number] | Laurance W | | MG TABS | time per | | | | 4 | Lila MD | | | day | | | | | | + + + + + + + + | MECLIZINE | One tab by | | | MECLIZINE | 6983104604 | Laurance W | | HCL 25 [...] one time | | | VALSARTAN | [id number] | Mariano | | MG TABS | per day | | | | 4 | Ariella | | | | | | | | CCMA | + + + + + + + + | GABAPENTIN | take 2 | | | GABAPENTIN | 9723742130 | Mariano | | 300 MG | [...] Take one | | | OMEPRAZOLE | [id number] | Bailey W | | 40 MG [...] take 2 | | | GABAPENTIN | 4932554476 | Bailey W | | 300 MG [...] two times | | | MECLIZINE | [id number] | Laurance W | | HCL 25 MG | per day | | | HCL | 0 | Lila MD | | TABS | | | | | | | + + + + + + + + | DIOVAN 320 | 1 tab one | | | VALSARTAN | 9340520800 | Bailey W | | MG TABS | time per | | | | 4 | Lila MD | | | day | | | | | | + + + + + + + + | VICTOZA 18 | 0.6 mg | | | LIRAGLUTID | [id number] | Bailey W | | MG/3ML | [...] take 1 | | | ASPIRIN | 5462828034 | Rogers | | 325 MG | [...] tab one | | | SITAGLIPTI | 5542717028 | Laurance W | | 100 MG | time per | | | N | 2 | Lila MD | | TABS | day | | | PHOSPHATE | | | + + + + + + + + | DIOVAN 160 | 1 by mouth | | | VALSARTAN | [id number] | Laurance W | | MG TABS | every day | | | | 4 | Lila MD | + + + + + + + + | GABAPENTIN | 2 tabs two | | | GABAPENTIN | 6359184611 | Laurance W | | 300 MG | times per | | | | 5 | Lila MD | | CAPS | day | | | | | | + + + + + + + + | LANTUS 100 | 56 units | | | INSULIN | [id number] | Laurance W | | UNIT/ML | in the | | | GLARGINE | 3 | Lila MD | | SOLN | morning | | | | | | + + + + + + + + | RIOMET 500 | 10ml's two | | | METFORMIN | 9315034216 | Laurance W | | MG/5ML | [...] tab at | | | GABAPENTIN | 9165923234 | Laurance W | | 100 MG [...] 28 units | | | INSULIN | 1162009718 | Bialey W | | UNIT/ML | two times | | | GLARGINE | 3 | Lila MD | | SOLN | per day | | | | | | + + + + + + + + | LISINOPRIL | take 1 | | | LISINOPRIL | [id number] | Rogers | | 20 MG | tablet by | | | | 1 | Laith LUIS | | TABS | mouth | | | | | | | | daily | | | | | | + + + + + + + + | MECLIZINE | two times | | | MECLIZINE | 8746520650 | Mariano | | HCL 25 MG | per day | | | HCL | 0 | Ariella | | TABS | | | | | | CCMA | + + + + + + + + | ERGOCALCIF | One | | | ERGOCALCIF | 8600120992 | Mariano | | QUANG 50271 | capsule by | | | QUANG [...] two times | | | GABAPENTIN | [id number] | Mariano | | 100 MG | per day | | | | 1 | Ariella | | CAPS | | | | | | CCMA | + + + + + + + + | METFORMIN | two times | | | METFORMIN | 6529381662 | Mariano | | HCL 1000 | per day | | | HCL | 5 | Ariella | | MG TABS | | | | | | CCMA | + + + + + + + + | RIOMET 500 | 10ml QAM | | | METFORMIN | [id number] | Mariano | | MG/5ML | Liquid due | | | HCL | 1 | Ariella | | SOLN | to | | | | | CCMA | | | Dysphagia | | | | | | + + + + + + + + | ASPIRIN EC | take 1 | | | ASPIRIN | [id number] | Mariano | | 325 MG | tablet | | | | 1 | Ariella | | TBEC | daily | | | | | CCMA | + + + + + + + + | ASPIRIN 81 | one time | | | ASPIRIN | 4221961773 | Mariano | | MG ORAL | per day | | | | 5 | Ariella | | TABLET | | | | | | CCMA | + + + + + + + + | GABAPENTIN | 1 by mouth | | | GABAPENTIN | 5623670636 | Franciscoance W | | 100 MG [...] take 1 | | | ATORVASTAT | [id number] | Bailey W | | MG TABS | tablet by | | | IN CALCIUM | 3 | Lila MD | | | mouth | | | | | | | | daily | | | | | | + + + + + + + + | ASPIRIN EC | take 1 | | | ASPIRIN | [id number] | Rogers | | 325 MG | tablet | | | | 1 | Laith MD | | TBEC | daily | | | | | | + + + + + + + + | RELION | Use to | | | GLUCOSE | 8422284464 | Laurance W | | BLOOD | test BG | | | BLOOD | 4 | Lila MD | | GLUCOSE | one time | | | | | | | TEST STRP | per day | | | | | | + + + + + + + + | RIOMET 500 | 10ml QAM | | | METFORMIN | [id number] | Laurance W | | MG/5ML | Liquid due | | | HCL | 1 | Lila MD | | SOLN | to | | | | | | | | Dysphagia | | | | | | + + + + + + + + | ERGOCALCIF | One | | | ERGOCALCIF | 7545126399 | Laurance W | | QUANG 48597 | capsule by | | | QUANG [...] one tablet | | | DOCUSATE | [id number] | Laurance W | | MG CAPS | by mouth | | | SODIUM | 0 | Lila MD | | | at bedtime | | | | | | + + + + + + + + | GABAPENTIN | one tablet | | | GABAPENTIN | 7558281511 | Laurance W | | 100 MG [...] by mouth | | | MECLIZINE | 6406465932 | Laurance W | | HCL 25 [...] by mouth | | | LISINOPRIL | [id number] | Laurance W | | 5 MG TABS | one time | | | | 1 | Lila MD | | | per day | | | | | | + + + + + + + + | COLACE 100 | one tablet | | | DOCUSATE | [id number] | Laurance W | | MG CAPS | by mouth | | | SODIUM | 0 | Lila MD | | | at bedtime | | | | | | + + + + + + + + | MECLIZINE | 1 by mouth | | | MECLIZINE | 7333208232 | Laurance W | | HCL 25 [...] one tablet | | | GABAPENTIN | 0874069140 | Laurance W | | 100 MG [...] one tablet | | | METFORMIN | 8745209278 | Laurance W | | HCL 1000 | by mouth | | | HCL | 5 | Lila MD | | MG TABS | twice a | | | | | | | | day | | | | | | + + + + + + + + | ASPIRIN 81 | 1 by mouth | | | ASPIRIN | 5151312562 | Laurance W | | MG ORAL | every day | | | | 5 | Lila MD | | TABLET | | | | | | | + + + + + + + + | HUMALOG | BS <150 - | | | INSULIN | 5222595571 | Tiesha | | 100 | No [...] 56 units | | | INSULIN | 5180629210 | Laurance W | | UNIT/ML | [...] | | | | | | | [employer] | + + + + + + [...] | Appointment | 01:00 PM | Hector DICKEYM, [address] | | | | [address], | | | | [place], [address], | | | | | + + + + | Appointment | 02:15 PM | Mabrosecarolyn Pascual DNP [facility], [address] | | | | [facility] [address], | | | | [place], [address], | | | | | + + + + | Referral | | Ophthalmology Consult | | | | Huong Rose, | | | | [address], [place], | | | | [place], [address] | | | | | + + + + | Referral | | Ophthalmology Consult | | | | Huong Rose, | | | | [address], [place], | | | | [place], [address] | | | | | + + + + | Referral | | Orthopedic Consult | | | | [facility] | | | | [facility], [address], | | | | [place], [address] | | | | | + + + + | Referral | | Physical Therapy Evaluation | | | | [facility], [address] | | | [address] [facility], [address] | | | [address], [place], [address] | | | | | | | | | + + + + | Referral | | Physical Therapy Evaluation | | | | [facility], [address], [address] | | | [address], [place], [address] | | | | | | | | | + + + + | Referral | | Podiatry Consult | | | | Hector Armendariz, | | | | [address] [facility] | | | | [address], [place], [place], | | | | [address] | | | | | + + + + | Referral | | Podiatry Consult | | | | Hector Armendariz, | | | | [address] [facility] | | | | [address], [place], [place], | | | | [address] | | | | | + + + + | Referral | | Ophthalmology Consult | | | | Huong Rose, | | | | [address], [place], | | | | [place], [address] | | | | | + + + + | Referral | | Nephrology Evaluation | | | | Larry Galo, | | | | [address], | | | | [address], [place], [address] | | | | | | | | | + + + + | Referral | | Nephrology Evaluation | | | | Larry Galo, | | | | [address], | | | | [address], [place], [address] | | | | | | | | | + + + + | Referral | | Ophthalmology Consult | | | | Huong Roes, | | | | [address], [place], | | | | [place], [address] | | | | | + + + + | Referral | | [facility] Head-WWO Con | | | | Dian Atkins, [address] | | | [address], | | | | [place], [address] | | | | | + + + + +---+ + | | Referral excluded from report: | +---+ + + + + + | Referral | | [facility] Head-WWO Con | | | | Dian Atkins, [address] | | | | [address], | | | | [place], [address] | | | | | + + [...] | + + + + + | CPT-21503 28939 | XR Knee WgtB Bilat | | | | | AP W 1-2V-Rt | | | + + + + + | [id number] | Overweight | | | + + + + + | CPT-20653 | Adm 1st Inj No | | | | | counseling or >18 | | | + + + + + | CPT-13377 | Prevnar 13 | | | | | (Pneumococcal >7 | | | + + + + + | [id number] | Overweight | | | + + + + + | CPT-11224 | Glucose by monitor | | | + + + + + | [id number] | Overweight | | | + + + + + | [id number] | Overweight | | | + + + + + | [id number] | Overweight | | | + + + + + | CPT-40974 | IV infusion -1st hr | | | | | (Rehydration) | | | + + + + + | CPT-31525 | Glucose by monitor | | | + + + + + | CPT-01397 | UA Dipstick | | | + + + + + | CPT-78281 | UA Dipstick | | | + + + + + | CPT-52552 | Initial Psych | | | | | Evaluation | | | + + + + + +---+ + | | Order excluded from report: | +---+ + + + + + + | VIT D HYDR 61962 | Vit D, 25 hydroxy | | [...]
--- OUTSIDE RECORDS SUMMARY | ~2019-03-25 | XMS | Continuity of Care Document ---
Demographics + + + | Address | [address] | | | [place] [address] | + + + | Home Phone | | + + + | Preferred Language | Unknown | + + + | Marital Status | Unknown | + + + | Yarsani Affiliation | Unknown | + + + | Race | Unknown | + + + | Ethnic Group | Unknown | + + + Author + + + | Author | [facility] | + + + | Organization | [facility] | + + + | Address | [address] | | | [place] [address] | + + + | Phone | | + + + Support + + + + + | Name | Relationship | Address | Phone | + + + + + | Dhaval Flores DO | Caregiver | [address] | | | | | [place] | | | | | [address] | | + + + + + | EVAN Pascual | Caregiver | [facility] | | | | | [facility] | | | | | [address] | | + + + + + | DOLORES DIANA | [address] | [address] | | | | | [place] [address] | | + + + + + Care Team Providers + + + + | Care Forest Ranger Name | Role | Phone | + + + + | EVAN Pascual | Unavailable | | + + + + Insurance Providers + + + + + | Payer Name | Policy Number | Subscriber Name | Relationship | + + + + + | MARY MCGRATH [employer]OSS | [id number] | JULI DIANA | SELF | | PPO | | | | + + + + + | [employer] | [id number] | JULI DIANA | SELF | | CLAIMS | | | | + + + + + Chief Complaint and Reason for Visit + + + | Reason for Visit | FELL HIT HEAD | + + + Problems Active Medical [...] | | + + + +--------+ | Closed head injury | Unknown | 12/07/18 | Active | + + + +--------+ [...] + +-------+ + + + +--------+ | Cephalex | 250 | MG | [...] + +-------+ + + + +--------+ | Docusate | 100 | MG | ORAL | Twice | | | | | Sodium | | | | Each Day | | | | | (Colace | | | | | | | | | 100 mg | | | | | | | | | Cap) 100 | | | | | | | | | MG CAP | | | | | | | | + + +-------+ + + + +--------+ | Furosemi | Unknown | | ORAL | Daily | | | | | de | Dose | | | | | | | | (Lasix | | | | | | | | | 20 mg | | | | | | | | | Tab) | | | | | | | | | (Unknown | | | | | | | | | | | | | | | | | | Strength | | | | | | | | | ) TAB | | | | | | | | + + +-------+ + + + +--------+ | INSULIN | 100 | UNIT | [...] + + + +--------+ | Insulin | 34 | UNIT | [...] + + + + + | Albuterol | Every 4 Hours as | 05/30/13 | Discontinued | | (Proventil Hfa | Needed as needed | | | | Inhaler) 90 Mcg Inh | for Difficulty | | | | Inh, 2 Puff | Breathing | | | | Inhalation | | | | + + + + + | Amoxicillin | | Unknown | Discontinued | | (Unknown Strength) | | | | | Cap Cap, Unknown | | | | | Dose | | | | + + + + + | Aspirin (Aspirin | | Unknown | Discontinued | | 325 Mg Tab) 325 Mg | | | | | Tab Tab, | | | | + + + + + | Aspirin 81 Mg Tabec | Daily | Unknown | Discontinued | | Tabec, 325 Mg Oral | | | | + + + + + | Atorvastatin | Daily | Unknown | Discontinued | | (Lipitor) 10 Mg Tab | | | | | [...] | Unknown | Discontinued | | Bisulfate (Plavix | | | | | 75 Mg Tab) 75 Mg | | | | | Tab Tab, 75 Mg Oral | | | | [...] Unknown | Discontinued | | n (Aggrenox) 25 | | | | | Mg-200 Mg Capcr | | | | | Capcr, 1 Cap Oral | | | | + + + + + | Docusate Sodium | Twice Each Day | Unknown | Discontinued | | (Colace 100 Mg Cap) | | | | | 100 Mg Cap Cap, | | | | | 200 Mg Oral | | | | + + + + + | Exenatide (Byetta) | Twice Each Day | Unknown | Discontinued | | 10MCG/0.04 Pensyr | | | | | Pensyr, 5 Mcg | | | | | Subcutaneously | [...] Bedtime | Unknown | Discontinued | | (Neurontin 100 Mg | | | | | Cap) 100 Mg Cap | | | | | Cap, 300 Mg Oral | | | | + + + + + | Gabapentin | Twice each day | Unknown | Discontinued | | (Neurontin 300 Mg | before meals | | | | Cap) 300 Mg Cap | | | | | Cap, 2 Cap Oral | | | | + + + + + | Gabapentin | At Bedtime | Unknown | Discontinued | | (Neurontin 300 Mg | | | | | Cap) 300 Mg Cap | | | | | Cap, 3 Cap Oral | | | [...] | | | | | Mg/0.1 Ml (18 Mg/3 | | | | | Ml) Pen.injctr | | | | | Pen.injctr, [...] + + + | Metformin Hcl | Daily | Unknown | Discontinued | | (Glucophage 500 Mg) | | | | | (Unknown Strength) | | | | | Tab Tab, 500 Mg | | | | | Oral | | | | + + + + + | Metformin Hcl | Twice Each Day | Unknown | Discontinued | | (Glucophage 500 Mg) | | | | | 500 Mg Tab Tab, 2 | | | | | Tab Oral | | | | + + + + + | Metformin Hcl | Twice Each Day | Unknown | Discontinued | | (Glucophage Xr) 500 | | | | | Mg Tabcr Tabcr, | | | | | 500 Mg Oral | | | | + + + + + | [place], Disposable | | Unknown | Discontinued | | (B-D | | | | | Precisionglide | | | | | Needle) 24 Gauge X | | | | | 1" Dis.needle | | | | | Dis.needle, [...] Needed as needed | | | | 100,000 | for Fungal | | | | Unit/Gram-0.1 % Cr | Infection | | | | Cr, 1 Applic | | | | | Topical | | | | + + + [...] for PAIN | | | | Tablet) 5 Mg-325 Mg | | | | | Tablet Tablet, [...] | + + + + + | Sulfamethoxazole/Tr | Twice Each Day for | 03/15/18 | Discontinued | | imethoprim Ds | Infection | | | | (Bactrim Ds) 1 Each | | | | | Tablet Tablet, 1 | | | | | Tab Oral | | | | + + + + + | Tramadol Hcl | | Unknown | Discontinued | | (Ultram 50 Mg Tab) | | | | | (Unknown Strength) | | | | | Tab Tab, Unknown | | | | | Dose [...] + + + + + + | Status | Date Recorded | + + + | Not | December 07, 2018 | + + + Hospital Discharge Instructions No hospital discharge instructions. Plan of Care + + + | Discharge Date | 12/08/18 | + + + | Disposition | HOME | + + + | Condition at Discharge | Good | + + + | Instructions/Education Provided | Head Injury, Adult | | | Concussion, Adult, [id number] | + + + | Prescriptions | See Medications Section | + + + | Referrals | Ambrose PascualP - | + + + | Additional Instructions/Education | follow-up with your PMD in 2-3 days. | | | Return to ER if uncontrolled headache, | | | neurological changes such as numbness, | | | weakness, change in vision, confusion, | | | oras needed. | + + + Functional Status No functional status results. Allergies, Adverse Reactions, Alerts + +---------+ + +--------+ + | Allergen | Type | Severity | Reaction | Status | Last Updated | + +---------+ + +--------+ + | hydrocodone | Allergy | Mild | HALLUCINATIO | Active | 12/07/18 | | bit | | | NS | | | + +---------+ + +--------+ + | lisinopril | Allergy | Unknown | | Active | 12/07/18 | + +---------+ + +--------+ + | morphine | Allergy | Mild | HALLUCINATIO | Active | 12/07/18 | | | | | N | | | + +---------+ + +--------+ + | ciprofloxaci | Allergy | Unknown | | Active | 12/07/18 | | n | | | | | | + +---------+ + +--------+ + Immunizations No Known History of Immunizations. Vital Signs + + + + | Vital Reading | Collection Date/Time | Result | + + + + | Blood Pressure | 12/08/18 0:06am | 148/84 | + + + + | Blood Pressure Source | 02/19/18 8:05am | Right Arm | + + + + | Temperature | 12/07/18 10:29pm | 96.9 F | + + + + | Temperature Source | 12/07/18 10:29pm | Temporal | + + + + | Respiratory Rate | 12/08/18 0:06am | 18 | + + + + | Pulse Rate | 12/08/18 0:06am | 78 | + + + + | Bedside Pulse Oximetry | 12/08/18 0:06am | 97 | + + + + | Height | 12/07/18 10:29pm | 5 ft 1 in | + + + + | Height | 12/07/18 10:29pm | 154.94 cm | + + + + | Weight | 12/07/18 10:29pm | 190 lb | + + + + | Weight | 12/07/18 10:29pm | 86.3 kg | + + + + | Body Mass Index | 12/07/18 10:29pm | 35.9 kg/m2 | + + + + Results No known relevant diagnostic tests, laboratory data and/or discharge summary. Procedures No Known History of Procedures. Encounters + + + + + + | Encounter | Location | Arrival/Admit | Discharge/Depar | Attending | | | | Date | t Date | Provider | + + + + + + | Departed | [facility] | 12/07/18 | 12/08/18 0:07am | Dhaval Flores | | Emergency | [facility] | 10:13pm | | D DO | + + + + + + + + + | Encounter Diagnosis | Onset Date | + + + | Closed head injury | | + + +
--- OUTSIDE RECORDS SUMMARY | ~2019-03-25 | XMS | Continuity of Care Document ---
Demographics + + + | Address | [address] | | | [place] [address] | + + + | Home Phone | | + + + | Preferred Language | Unknown | + + + | Marital Status | Unknown | + + + | Quaker Affiliation | Unknown | + + + | Race | Unknown | + + + | Ethnic Group | Unknown | + + + Author + + + | Author | [facility] | + + + | Organization | [facility] | + + + | Address | [address] | | | [place] [address] | + + + | Phone | | + + + Support + + + + + | Name | Relationship | Address | Phone | + + + + + | Harvinder Galvan | Caregiver | [facility] | | | MD | | [place] | | | | | , [place] [address] | | + + + + + | Harvinder Galvan | Caregiver | [facility] | | | MD | | [facility] | | | | | , [place] [address] | | + + + + + | Dhaval Flores DO | Caregiver | [facility] | | | | | [place] | | | | | [address] | | + + + + + | EVAN Mims | Caregiver | [facility] | | | | | [place] [address] | | + + + + + | DOLORES DIANA | Next Of Kin | [address] [facility] | | | | | [place] [address] | | + + + + + Care Team Providers + + + + | Care Tile Mason Name | Role | Phone | + + + + | EVAN Mims | Unavailable | | + + + + Insurance Providers + + + + + | Payer Name | Policy Number | Subscriber Name | Relationship | + + + + + | [employer] | [id number] | JULI DIANA | SELF | | CLAIMS | | | | + + + + + | MARY MCGRATH CROSS | [id number] | JULI DIANA | SELF | | PPO | | | | + + + + + Advance Directives + + + + | Directive | Response | Recorded Date/Time | + + + + | Code Status | FULL CODE | 02/18/18 8:01pm | + + + + | Status of Advance | Doesn't Have One | 02/18/18 8:58pm | | Directive/ | | | + + + + | Information obtained from | Y | 18 8:58pm | | Patient? | | | + + + + | Content of Directive and/or | FULL CODE | 02/18/18 8:58pm | | patient's stated wishes: | | | + + + + Chief Complaint and Reason for Visit + + + | Reason for Visit | ACUTE ENCEPHALOPATHY | + + + Problems Active Medical [...] | + + + + + | Dunmor, Disposable | | Unknown | Discontinued | [...] | + + + | Not | February 18, 2018 | + + + Hospital Discharge Instructions ===== DISCHARGE PLAN ===== Discharge Date: 02/19/18 Discharged to/ Home Discharge Criteria: CLINICALLY IMPROVED, MENTAL STATE AT BASELINE Transportation Type/ Automobile/Taxi Call Your Doctor For/ Any Problems or Concerns ===== DIET AND INSTRUCTIONS ===== Diet/ As Tolerated Diabetic Diet Instructions: PLEASE ADHERE TO A DIABETIC DIET ===== ACTIVITY ===== Activity Restrictions: TOLERATED Personal Care/ May Shower ===== WOUND CARE AND TREATMENT ===== ===== PROVIDER FOLLOW-UP APPOINTMENTS ===== Provider/ Jose Mims JR, MD Specialty/ NEUROLOGY Purpose: FOLLOW-UP ALTERED MENTAL STATU When: TIFF MIMS NP WITHIN A WEEK Location: [address] [place] [address] Comment: FOLLOW UP ALTERED MENTAL STATUS AND ACUTE ENCEPHALOPATHY Provider/ Larry Galo MD Specialty/ NEPHROLOGY Purpose: FOLLOW-UP FOR RENAL CARE When: ON 02/21/18 AT 11:00 Location: [address] [place] [address] 176 Comment: FOLLOW UP WITH DR. GALO FOR EVALUATION OF RENAL FUNCTION AND CARE ===== ADDITIONAL FOLLOW-UP ===== History of New Onset Stroke Patient? N Stroke Instructions include: ===== VACCINES ===== ===== PRESCRIPTIONS ===== Summary of Care printed/downloaded for patient? Y Discard old medication lists at home and update any records. ==== OTHER INSTRUCTIONS ==== From your Provider ==== EQUIPMENT ==== ===== DISCHARGE CARE PLAN ===== Problem: RISK FOR ALTERED MENTAL STATUS Goal: REDUCE RISK OF ALTERED MENTAL STATUS Instructions: PLEASE CHECK YOUR BLOOD SUGARS BEFORE EACH MEAL AND AT BEDTIME. MONITOR FOR SIGNS AND SYMPTOMS OF LOW BLOOD SUGARS AND HIGH BLOOD SUGARS, TREAT NEEDED. Problem: RISK FOR INFECTION, URINARY TRACK INFECTION Goal: REDUCE RISK FOR URINARY TRACT INFECTIONS Instructions: PLEASE FOLLOW-UP WITH DR. GALO REGARDING RENAL FUNCTION. IMM Provided? N + (/;Nurse/Nurse) Plan of Care + + + | Discharge Date | 02/19/18 | + + + | Disposition | HOME | + + + | Instructions/Education Provided | Type 2 Diabetes Mellitus, Adult | | | Acute Kidney Injury | | | Altered Mental Status | + + + | Forms Provided | Additional Discharge Education | + + + | Prescriptions | See Medications Section | + + + | Referrals | Bailey Sharp MD ([facility]) - | | | Within one weekAddress:[address] [facility] | | | [address] [place] | | | [address] Jose Mims JR, MD | | | (NEUROLOGY) - 02/09/18 Address:[address] [place] [address] | | | [place], [place] | | | [address] Reason(s) for | | | Referral:Notes:FOLLOW UP WITH DR. MIMS | | | WITHIN TWO WEEKS. PATIENT WILL CALL AND | | | MAKE AN APPOINTMENT. (NEPHROLOGY) - | | | 02/21/18 Reason(s) for | | | Referral:Notes:PLEASE ATTEND SCHEDULED | | | APPOINTMENT ON 02/21/18. | | |Notes: | | |FOLLOW UP WITH DR. MIMS WITHIN TWO | | |WEEKS. PATIENT WILL CALL AND MAKE AN | | |APPOINTMENT. | | | | | | (NEPHROLOGY) - 02/21/18 | | | | | |Reason(s) for Referral: | | |Notes: | | |PLEASE ATTEND SCHEDULED APPOINTMENT ON | | |02/21/18. | + + + | Care Plan and Goals | See Discharge Instructions section | + + + Functional Status No functional status results. Allergies, Adverse Reactions, Alerts + +---------+ + +--------+ + | Allergen | Type | Severity | Reaction | Status | Last Updated | + +---------+ + +--------+ + | hydrocodone | Allergy | Mild | HALLUCINATIO | Active | 02/18/18 | | bit | | | NS | | | + +---------+ + +--------+ + | lisinopril | Allergy | Unknown | | Active | 02/18/18 | + +---------+ + +--------+ + | morphine | Allergy | Mild | HALLUCINATIO | Active | 02/18/18 | | | | | N | | | + +---------+ + +--------+ + | ciprofloxaci | Allergy | Unknown | | Active | 02/18/18 | | n | | | | | | + +---------+ + +--------+ + Immunizations + + + + | Name | Date Given | Type | + + + + | Influenza, Injectable, | 02/18/18 | Administered | | Quadrivalent, Preservative | | | + + + + Vital Signs + + + + | Vital Reading | Collection Date/Time | Result | + + + + | Blood Pressure | 02/19/18 8:05am | 132/69 | + + + + | Blood Pressure Source | 02/19/18 8:05am | Right Arm | + + + + | Temperature | 02/19/18 8:05am | 96.7 F | + + + + | Temperature Source | 02/19/18 8:05am | Temporal | + + + + | Respiratory Rate | 18 8:05am | 18 | + + + + | Pulse Rate | 18 8:05am | 83 | + + + + | Pulse Location | 18 8:05am | SpO2 | + + + + | Bedside Pulse Oximetry | 02/19/18 8:05am | 99 | + + + + | Height | 02/18/18 8:49pm | 5 ft 2 in | + + + + | Height | 18 8:49pm | 157.48 cm | + + + + | Weight | 18 8:49pm | 186 lb | + + + + | Weight | 18 8:49pm | 84.2 kg | + + + + | Body Mass Index | 18 8:49pm | 34.0 kg/m2 | + + + + Results Laboratory Results + + + +-------+ + + + + | Test | Result | Units | Flags | Referenc | Collecti | Result | Comments | | Name | | | | e | on | Date/Ernesto | | | | | | | | Date/Ernesto | e | | | | | | | | e | | | + + + +-------+ + + + + | POC | 328 | mg/dL | H | 70-99 | 02/19/18 | 02/19/18 | Notified | | Glucose | | | | | 11:07am | 11:10am | | | (mg/dL) | | | | | | | [facility] | | | | | | | | | rCAP | + + + +-------+ + + + + | Urine | Clean | | | | 02/19/18 | 02/19/18 | | | Source | Catch | | | | 5:55am | 7:13am | | + + + +-------+ + + + + | Urine | Yellow | | | P-Yellow | 02/19/18 | 02/19/18 | | | Color | | | | | 5:55am | 7:13am | | + + + +-------+ + + + + | Urine | Clear | | | Clear | 02/19/18 | 02/19/18 | | | Appearan | | | | | 5:55am | 7:13am | | | ce | | | | | | | | + + + +-------+ + + + + | Urine | 1.015 | | | 1.003-1. | 02/19/18 | 02/19/18 | | | Specific | | | | 022 | 5:55am | 7:13am | | | [place] | | | | | | | | + + + +-------+ + + + + | Urine pH | 5.0 | | | 5.0-8.0 | 02/19/18 | 02/19/18 | | | | | | | | 5:55am | 7:13am | | + + + +-------+ + + + + | Urine | Neg | | | Neg | 02/19/18 | 18 | | | Leukocyt | | | | | 5:55am | 7:13am | | | e | | | | | | | | | Esterase | | | | | | | | + + + +-------+ + + + + | Urine | Neg | | | Neg | 02/19/18 | 02/19/18 | | | Nitrite | | | | | 5:55am | 7:13am | | + + + +-------+ + + + + | Urine | 2+ | | * | Neg | 02/19/18 | 02/19/18 | | | Protein | | | | | 5:55am | 7:13am | | + + + +-------+ + + + + | Urine | 2+ | | * | Neg | 02/19/18 | 02/19/18 | | | Glucose | | | | | 5:55am | 7:13am | | + + + +-------+ + + + + | Urine | Neg | | | Neg | 18 | 18 | | | Ketones | | | | | 5:55am | 7:13am | | + + + +-------+ + + + + | Urine | NORM | | | Normal | 02/19/18 | 02/19/18 | | | Urobilin | | | | | 5:55am | 7:13am | | | ogen | | | | | | | | + + + +-------+ + + + + | Urine | Neg | | | Neg | 18 | 02/19/18 | | | Bilirubi | | | | | 5:55am | 7:13am | | | n | | | | | | | | + + + +-------+ + + + + | Urine | 1+ | | * | Neg | 02/19/18 | 02/19/18 | | | Blood | | | | | 5:55am | 7:13am | | + + + +-------+ + + + + | Urine | 0-2 | /hpf | | 0-5 | 02/19/18 | 02/19/18 | | | WBC | | | | | 5:55am | 7:31am | | + + + +-------+ + + + + | Urine | 0-2 | /hpf | | 0-2 | 02/19/18 | 02/19/18 | | | RBC | | | | | 5:55am | 7:31am | | + + + +-------+ + + + + | Urine | Few | /hpf | | Few | 02/19/18 | 02/19/18 | | | Squamous | | | | | 5:55am | 7:31am | | | | | | | | | | | | Epitheli | | | | | | | | | al Cells | | | | | | | | + + + +-------+ + + + + | Urine | Mod | /hpf | * | None | 02/19/18 | 02/19/18 | | | Bacteria | | | | | 5:55am | 7:31am | | + + + +-------+ + + + + | Urine | Light | | | 0-Heavy | 02/19/18 | 02/19/18 | | | Mucus | | | | | 5:55am | 7:31am | | + + + +-------+ + + + + | Urine | Rare | /hpf | | 0-Rare | 02/19/18 | 02/19/18 | | | Transiti | | | | | 5:55am | 7:31am | | | onal | | | | | | | | | Epitheli | | | | | | | | | al Cells | | | | | | | | + + + +-------+ + + + + | Urine | 2-5 | /lpf | * | 0 | 02/19/18 | 02/19/18 | | | Granular | | | | | 5:55am | 7:31am | | | Casts | | | | | | | | + + + +-------+ + + + + | White | 4.77 | K/mm3 | | 4.00-11. | 02/19/18 | 02/19/18 | | | Blood | | | | 30 | 5:37am | 6:46am | | | Count | | | | | | | | + + + +-------+ + + + + | Red | 3.57 | M/mm3 | L | 3.80-5.2 | 02/19/18 | 02/19/18 | | | Blood | | | | 0 | 5:37am | 6:46am | | | Count | | | | | | | | + + + +-------+ + + + + | Hemoglob | 10.2 | g/dL | L | 11.5-16. | 02/19/18 | 02/19/18 | | | in | | | | 0 | 5:37am | 6:46am | | + + + +-------+ + + + + | Hematocr | 32.3 | % | L | 33.0-51. | 02/19/18 | 02/19/18 | | | it | | | | 0 | 5:37am | 6:46am | | + + + +-------+ + + + + | Mean | 91 | fL | | 80-100 | 02/19/18 | 02/19/18 | | | Corpuscu | | | | | 5:37am | 6:46am | | | lar | | | | | | | | | Volume | | | | | | | | + + + +-------+ + + + + | Mean | 28.6 | pg | | 26.0-34. | 02/19/18 | 02/19/18 | | | Corpuscu | | | | 0 | 5:37am | 6:46am | | | lar | | | | | | | | | Hemoglob | | | | | | | | | in | | | | | | | | + + + +-------+ + + + + | Mean | 31.6 | g/dL | | 31.5-36. | 02/19/18 | 02/19/18 | | | Corpuscu | | | | 5 | 5:37am | 6:46am | | | lar | | | | | | | | | Hemoglob | | | | | | | | | in | | | | | | | | | Concent | | | | | | | | + + + +-------+ + + + + | RDW | 46.5 | fL | H | 35.1-46. | 02/19/18 | 02/19/18 | | | Standard | | | | 3 | 5:37am | 6:46am | | | | | | | | | | | | Deviatio | | | | | | | | | n | | | | | | | | + + + +-------+ + + + + | RDW | 14.3 | % | H | 11.7-14. | 02/19/18 | 02/19/18 | | | Coeffici | | | | 2 | 5:37am | 6:46am | | | ent of | | | | | | | | | Variatio | | | | | | | | | n | | | | | | | | + + + +-------+ + + + + | Platelet | 90 | K/mm3 | L | 150-400 | 02/19/18 | 02/19/18 | | | Count | | | | | 5:37am | 6:46am | | + + + +-------+ + + + + | Mean | 14.0 | fL | H | 9.1-12.4 | 02/19/18 | 02/19/18 | | | Platelet | | | | | 5:37am | 6:46am | | | Volume | | | | | | | | + + + +-------+ + + + + | Nucleate | 0.0 | /100 WBC | | 0.0-0.2 | 02/19/18 | 02/19/18 | | | d Red | | | | | 5:37am | 7:26am | | | Blood | | | | | | | | | Cells % | | | | | | | | + + + +-------+ + + + + | Nucleate | 0.00 | K/mm3 | | 0.00-0.0 | 02/19/18 | 02/19/18 | | | d RBC | | | | 2 | 5:37am | 7:26am | | | Absolute | | | | | | | | | Count | | | | | | | | | (auto) | | | | | | | | + + + +-------+ + + + + | Platelet | Mod Dec: | K/mm3 | * | Normal | 02/19/18 | 02/19/18 | | | | 50-100 | | | | 5:37am | 7:26am | | | Estimate | | | | | | | | + + + +-------+ + + + + | Sodium | 143 | mmol/L | | 136-145 | 02/19/18 | 02/19/18 | | | Level | | | | | 5:37am | 6:55am | | + + + +-------+ + + + + | Potassiu | 4.4 | mmol/L | | 3.5-5.5 | 02/19/18 | 02/19/18 | | | m Level | | | | | 5:37am | 6:55am | | + + + +-------+ + + + + | Chloride | 113 | mmol/L | H | 98-108 | 02/19/18 | 02/19/18 | | | Level | | | | | 5:37am | 6:55am | | + + + +-------+ + + + + | Carbon | 23 | mmol/L | | 21-32 | 02/19/18 | 02/19/18 | | | Dioxide | | | | | 5:37am | 6:55am | | | Level | | | | | | | | + + + +-------+ + + + + | Anion | 7 | mmol/L | | 6-16 | 02/19/18 | 02/19/18 | | | Gap | | | | | 5:37am | 6:55am | | + + + +-------+ + + + + | Glucose | 172 | mg/dL | H | 70-99 | 02/19/18 | 02/19/18 | | | Level | | | | | 5:37am | 6:55am | | + + + +-------+ + + + + | Blood | 60 | mg/dL | H | 8-24 | 02/19/18 | 02/19/18 | | | Urea | | | | | 5:37am | 6:55am | | | Nitrogen | | | | | | | | + + + +-------+ + + + + | Creatini | 3.17 | mg/dL | H | 0.40-1.0 | 02/19/18 | 02/19/18 | | | ne | | | | 0 | 5:37am | 6:55am | | + + + +-------+ + + + + | BUN/Crea | 18.9 | % | | 12.0-20. | 02/19/18 | 02/19/18 | | | tinine | | | | 0 | 5:37am | 6:55am | | | Ratio | | | | | | | | + + + +-------+ + + + + | Glomerul | 15 | | L | 60- | 02/19/18 | 02/19/18 | Non-Afri | | ar | | | | | 5:37am | 6:55am | can | | Filtrati | | | | | | | Spanish | | on Rate | | | | | | | GFR | | Calc | | | | | | | CalcFor | | | | | | | | | | | | | | | | | | Spanish | | | | | | | [...] | | | | .73m^2 | + + + +-------+ + + + + | Calcium | 7.9 | mg/dL | L | 8.5-10.1 | 02/19/18 | 02/19/18 | | | Level | | | | | 5:37am | 6:55am | | + + + +-------+ + + + + | Total | 6.0 | g/dL | L | 6.4-8.2 | 02/19/18 | 02/19/18 | | | Protein | | | | | 5:37am | 6:55am | | + + + +-------+ + + + + | Albumin | 2.6 | g/dL | L | 3.4-5.0 | 02/19/18 | 02/19/18 | | | | | | | | 5:37am | 6:55am | | + + + +-------+ + + + + | Globulin | 3.4 | g/dL | | 2.2-4.0 | 02/19/18 | 02/19/18 | | | | | | | | 5:37am | 6:55am | | + + + +-------+ + + + + | Albumin/ | 0.8 | | | 0.8-1.8 | 02/19/18 | 02/19/18 | | | Globulin | | | | | 5:37am | 6:55am | | | Ratio | | | | | | | | + + + +-------+ + + + + | Total | 0.2 | mg/dL | | 0.1-1.0 | 02/19/18 | 02/19/18 | | | Bilirubi | | | | | 5:37am | 6:55am | | | n | | | | | | | | + + + +-------+ + + + + | Alkaline | 70 | U/L | | 50-136 | 02/19/18 | 02/19/18 | | | | | | | | 5:37am | 6:55am | | | Phosphat | | | | | | | | | ase | | | | | | | | + + + +-------+ + + + + | Aspartat | 34 | U/L | | 12-37 | 02/19/18 | 02/19/18 | | | e Amino | | | | | 5:37am | 6:55am | | | Transf | | | | | | | | | (AST/SGO | | | | | | | | | T) | | | | | | | | + + + +-------+ + + + + | Alanine | 51 | U/L | | 12-78 | 02/19/18 | 02/19/18 | | | Aminotra | | | | | 5:37am | 6:55am | | | nsferase | | | | | | | | | | | | | | | | | | (ALT/SGP | | | | | | | | | T) | | | | | | | | + + + +-------+ + + + + | Procalci | 0.35 | ng/mL | H | <0.05 | 02/18/18 | 02/18/18 | | | tonin | | | | | 9:34pm | 10:22pm | | + + + +-------+ + + + + | Urine | Yes | | * | No | 02/18/18 | 02/18/18 | | | Culture | | | | | 6:10pm | 7:15pm | | | Indicate | | | | | | | | | d | | | | | | | | + + + +-------+ + + + + | Urine | Not | | | | 02/18/18 | 02/18/18 | Unconfir | | Amphetam | Detected | | | | 6:10pm | 7:06pm | med | | ine | | | | | | | screenin | | Screen | | | | | | | g | | | | | | | | | results | | | | | | | | | are to | | | | | | | | | be used | | | | | | | | | only for | | | | | | | | | medical | | | | | | | | | | | | | | | | | | purposes | | | | | | | | | . | | | | | | | | | Confirma | | | | | | | | | tion of | | | | | | | | | a | | | | | | | | | positive | | | | | | | | | | | | | | | | | | screenin | | | | | | | | | g result | | | | | | | | | is | | | | | | | | | availabl | | | | | | | | | e upon | | | | | | | | | request. | | | | | | | | | Screen | | | | | | | | | evaluate | | | | | | | | | s for | | | | | | | | | the | | | | | | | | | presence | | | | | | | | | of | | | | | | | | | Amphetam | | | | | | | | | ine at a | | | | | | | | | | | | | | | | | | threshol | | | | | | | | | d | | | | | | | | | concentr | | | | | | | | | ationof | | | | | | | | | 500 | | | | | | | | | ng/mL. | + + + +-------+ + + + + | Urine | Not | | | | 02/18/18 | 02/18/18 | Unconfir | | Methamph | Detected | | | | 6:10pm | 7:06pm | med | | etamines | | | | | | | screenin | | Screen | | | | | | | g | | | | | | | | | results | | | | | | | | | are to | | | | | | | | | be used | | | | | | | | | only for | | | | | | | | | medical | | | | | | | | | | | | | | | | | | purposes | | | | | | | | | . | | | | | | | | | Confirma | | | | | | | | | tion of | | | | | | | | | a | | | | | | | | | positive | | | | | | | | | | | | | | | | | | screenin | | | | | | | | | g result | | | | | | | | | is | | | | | | | | | availabl | | | | | | | | | e upon | | | | | | | | | request. | | | | | | | | | Screen | | | | | | | | | evaluate | | | | | | | | | s for | | | | | | | | | theprese | | | | | | | | | nce of | | | | | | | | | Methamph | | | | | | | | | etamine | | | | | | | | | at a | | | | | | | | | threshol | | | | | | | | | d | | | | | | | | | concentr | | | | | | | | | ation of | | | | | | | | | 500 | | | | | | | | | ng/mL. | + + + +-------+ + + + + | Urine | Not | | | | 02/18/18 | 09/25/18 | Unconfir | | Barbitua | Detected | | | | 6:10pm | 7:06pm | med | | serge | | | | | | | screenin | | Screen | | | | | | | g | | | | | | | | | results | | | | | | | | | are to | | | | | | | | | be used | | | | | | | | | only | | | | | | | | | formedic | | | | | | | | | al | | | | | | | | | purposes | | | | | | | | | . | | | | | | | | | Confirma | | | | | | | | | tion of | | | | | | | | | a | | | | | | | | | positive | | | | | | | | | | | | | | | | | | screenin | | | | | | | | | gresult | | | | | | | | | is | | | | | | | | | availabl | | | | | | | | | e upon | | | | | | | | | request. | | | | | | | | | Screen | | | | | | | | | | | | | | | | | | evaluate | | | | | | | | | s forthe | | | | | | | | | | | | | | | | | | presence | | | | | | | | | of | | | | | | | | | Barbitua | | | | | | | | | te at a | | | | | | | | | threshol | | | | | | | | | d | | | | | | | | | concentr | | | | | | | | | ationof | | | | | | | | | 200 | | | | | | | | | ng/mL. | + + + +-------+ + + + + | Urine | Not | | | | 02/18/18 | 02/18/18 | Unconfir | | Benzodia | Detected | | | | 6:10pm | 7:06pm | med | | zepines | | | | | | | screenin | | Screen | | | | | | | g | | | | | | | | | results | | | | | | | | | are to | | | | | | | | | be used | | | | | | | | | only for | | | | | | | | | medical | | | | | | | | | | | | | | | | | | purposes | | | | | | | | | . | | | | | | | | | Confirma | | | | | | | | | tion of | | | | | | | | | a | | | | | | | | | positive | | | | | | | | | | | | | | | | | | screenin | | | | | | | | | g result | | | | | | | | | is | | | | | | | | | availabl | | | | | | | | | e upon | | | | | | | | | request. | | | | | | | | | Screen | | | | | | | | | evaluate | | | | | | | | | s for | | | | | | | | | the | | | | | | | | | presence | | | | | | | | | of | | | | | | | | | Benzodia | | | | | | | | | zepine | | | | | | | | | at a | | | | | | | | | threshol | | | | | | | | | d | | | | | | | | | concentr | | | | | | | | | ation of | | | | | | | | | 150 | | | | | | | | | ng/mL. | + + + +-------+ + + + + | Urine | Not | | | | 02/18/18 | 02/18/18 | Unconfir | | Cocaine | Detected | | | | 6:10pm | 7:06pm | med | | Screen | | | | | | | screenin | | | | | | | | | g | | | | | | | | | results | | | | | | | | | are to | | | | | | | | | be used | | | | | | | | | only for | | | | | | | | | medical | | | | | | | | | | | | | | | | | | purposes | | | | | | | | | . | | | | | | | | | Confirma | | | | | | | | | tion of | | | | | | | | | a | | | | | | | | | positive | | | | | | | | | | | | | | | | | | screenin | | | | | | | | | g result | | | | | | | | | is | | | | | | | | | availabl | | | | | | | | | e upon | | | | | | | | | request. | | | | | | | | | Screen | | | | | | | | | | | | | | | | | | evaluate | | | | | | | | | s forthe | | | | | | | | | | | | | | | | | | presence | | | | | | | | | of | | | | | | | | | Cocaine | | | | | | | | | at a | | | | | | | | | threshol | | | | | | | | | d | | | | | | | | | concentr | | | | | | | | | ation of | | | | | | | | | 150 | | | | | | | | | ng/mL. | + + + +-------+ + + + + | Urine | Not | | | | 02/18/18 | 02/18/18 | Unconfir | | Methadon | Detected | | | | 6:10pm | 7:06pm | med | | e Screen | | | | | | | screenin | | | | | | | | | g | | | | | | | | | results | | | | | | | | | are to | | | | | | | | | be used | | | | | | | | | only | | | | | | | | | formedic | | | | | | | | | al | | | | | | | | | purposes | | | | | | | | | . | | | | | | | | | Confirma | | | | | | | | | tion of | | | | | | | | | a | | | | | | | | | positive | | | | | | | | | | | | | | | | | | screenin | | | | | | | | | gresult | | | | | | | | | is | | | | | | | | | availabl | | | | | | | | | e upon | | | | | | | | | request. | | | | | | | | | Screen | | | | | | | | | evaluate | | | | | | | | | s forthe | | | | | | | | | | | | | | | | | | presence | | | | | | | | | of | | | | | | | | | Methadon | | | | | | | | | e at a | | | | | | | | | threshol | | | | | | | | | d | | | | | | | | | concentr | | | | | | | | | ationof | | | | | | | | | 200 | | | | | | | | | ng/mL. | + + + +-------+ + + + + | Urine | Not | | | | 02/18/18 | 02/18/18 | Unconfir | | Opiates | Detected | | | | 6:10pm | 7:06pm | med | | Screen | | | | | | | screenin | | | | | | | | | g | | | | | | | | | results | | | | | | | | | are to | | | | | | | | | be used | | | | | | | | | only for | | | | | | | | | medical | | | | | | | | | | | | | | | | | | purposes | | | | | | | | | . | | | | | | | | | Confirma | | | | | | | | | tion of | | | | | | | | | a | | | | | | | | | positive | | | | | | | | | | | | | | | | | | screenin | | | | | | | | | g result | | | | | | | | | is | | | | | | | | | availabl | | | | | | | | | e upon | | | | | | | | | request. | | | | | | | | | Screen | | | | | | | | | | | | | | | | | | evaluate | | | | | | | | | s forthe | | | | | | | | | | | | | | | | | | presence | | | | | | | | | of | | | | | | | | | Opiates | | | | | | | | | at a | | | | | | | | | threshol | | | | | | | | | d | | | | | | | | | concentr | | | | | | | | | ationof | | | | | | | | | 100 | | | | | | | | | ng/mL. | + + + +-------+ + + + + | Urine | Not | | | | 02/18/18 | 02/18/18 | Unconfir | | Phencycl | Detected | | | | 6:10pm | 7:06pm | med | | idine | | | | | | | screenin | | Screen | | | | | | | g | | | | | | | | | results | | | | | | | | | are to | | | | | | | | | be used | | | | | | | | | only for | | | | | | | | | medical | | | | | | | | | | | | | | | | | | purposes | | | | | | | | | . | | | | | | | | | Confirma | | | | | | | | | tion of | | | | | | | | | a | | | | | | | | | positive | | | | | | | | | | | | | | | | | | screenin | | | | | | | | | g result | | | | | | | | | is | | | | | | | | | availabl | | | | | | | | | e upon | | | | | | | | | request. | | | | | | | | | Screen | | | | | | | | | | | | | | | | | | evaluate | | | | | | | | | s for | | | | | | | | | theprese | | | | | | | | | nce of | | | | | | | | | Phencycl | | | | | | | | | idine at | | | | | | | | | a | | | | | | | | | threshol | | | | | | | | | d | | | | | | | | | concentr | | | | | | | | | ationof | | | | | | | | | 25 | | | | | | | | | ng/mL. | + + + +-------+ + + + + | Urine | Not | | | | 02/18/18 | 02/18/18 | Unconfir | | Cannabin | Detected | | | | 6:10pm | 7:06pm | med | | oids | | | | | | | screenin | | Screen | | | | | | | g | | | | | | | | | results | | | | | | | | | are to | | | | | | | | | be used | | | | | | | | | only for | | | | | | | | | medical | | | | | | | | | | | | | | | | | | purposes | | | | | | | | | . | | | | | | | | | Confirma | | | | | | | | | tion of | | | | | | | | | a | | | | | | | | | positive | | | | | | | | | | | | | | | | | | screenin | | | | | | | | | g result | | | | | | | | | is | | | | | | | | | availabl | | | | | | | | | e upon | | | | | | | | | request. | | | | | | | | | Screen | | | | | | | | | | | | | | | | | | evaluate | | | | | | | | | s for | | | | | | | | | theprese | | | | | | | | | nce of | | | | | | | | | Cannabin | | | | | | | | | oids at | | | | | | | | | a | | | | | | | | | threshol | | | | | | | | | d | | | | | | | | | concentr | | | | | | | | | ation of | | | | | | | | | 50 | | | | | | | | | ng/mL. | + + + +-------+ + + + + | Ur | Not | | | | 02/18/18 | 02/18/18 | Unconfir | | Tricycli | Detected | | | | 6:10pm | 7:06pm | med | | c | | | | | | | screenin | | Antidepr | | | | | | | g | | essants | | | | | | | results | | Screen | | | | | | | are to | | | | | | | | | be used | | | | | | | | | only for | | | | | | | | | medical | | | | | | | | | | | | | | | | | | purposes | | | | | | | | | . | | | | | | | | | Confirma | | | | | | | | | tion of | | | | | | | | | a | | | | | | | | | positive | | | | | | | | | | | | | | | | | | screenin | | | | | | | | | g result | | | | | | | | | is | | | | | | | | | availabl | | | | | | | | | e upon | | | | | | | | | request. | | | | | | | | | Screen | | | | | | | | | | | | | | | | | | evaluate | | | | | | | | | s for | | | | | | | | | the | | | | | | | | | presence | | | | | | | | | of | | | | | | | | | Tricycli | | | | | | | | | c | | | | | | | | | Antidepr | | | | | | | | | essants | | | | | | | | | at a | | | | | | | | | threshol | | | | | | | | | d | | | | | | | | | concentr | | | | | | | | | ation of | | | | | | | | | 300 | | | | | | | | | ng/mL. | + + + +-------+ + + + + | Urine | Not | | | | 02/18/18 | 02/18/18 | Unconfir | | Buprenor | Detected | | | | 6:10pm | 7:06pm | med | | phine | | | | | | | screenin | | Screen | | | | | | | g | | | | | | | | | results | | | | | | | | | are to | | | | | | | | | be used | | | | | | | | | only | | | | | | | | | formedic | | | | | | | | | al | | | | | | | | | purposes | | | | | | | | | . | | | | | | | | | Confirma | | | | | | | | | tion of | | | | | | | | | a | | | | | | | | | positive | | | | | | | | | | | | | | | | | | screenin | | | | | | | | | gresult | | | | | | | | | is | | | | | | | | | availabl | | | | | | | | | e upon | | | | | | | | | request. | | | | | | | | | Screen | | | | | | | | | | | | | | | | | | evaluate | | | | | | | | | s for | | | | | | | | | theprese | | | | | | | | | nce of | | | | | | | | | Buprenor | | | | | | | | | phine | | | | | | | | | (BUP) at | | | | | | | | | a | | | | | | | | | threshol | | | | | | | | | d | | | | | | | | | concentr | | | | | | | | | ationof | | | | | | | | | 10 | | | | | | | | | ng/mL. | + + + +-------+ + + + + | Urine | Not | | | | 02/18/18 | 02/18/18 | Unconfir | | Oxycodon | Detected | | | | 6:10pm | 7:06pm | med | | e Screen | | | | | | | screenin | | | | | | | | | g | | | | | | | | | results | | | | | | | | | are to | | | | | | | | | be used | | | | | | | | | only | | | | | | | | | formedic | | | | | | | | | al | | | | | | | | | purposes | | | | | | | | | . | | | | | | | | | Confirma | | | | | | | | | tion of | | | | | | | | | a | | | | | | | | | positive | | | | | | | | | | | | | | | | | | screenin | | | | | | | | | gresult | | | | | | | | | is | | | | | | | | | availabl | | | | | | | | | e upon | | | | | | | | | request. | | | | | | | | | Screen | | | | | | | | | | | | | | | | | | evaluate | | | | | | | | | s for | | | | | | | | | theprese | | | | | | | | | nce of | | | | | | | | | Oxycodon | | | | | | | | | e at a | | | | | | | | | threshol | | | | | | | | | d | | | | | | | | | concentr | | | | | | | | | ation of | | | | | | | | | 100 | | | | | | | | | ng/mL. | + + + +-------+ + + + + | Urine | Not | | | | 02/18/18 | 02/18/18 | Unconfir | | Propoxyp | Detected | | | | 6:10pm | 7:06pm | med | | hene | | | | | | | screenin | | Screen | | | | | | | g | | | | | | | | | results | | | | | | | | | are to | | | | | | | | | be used | | | | | | | | | only | | | | | | | | | formedic | | | | | | | | | al | | | | | | | | | purposes | | | | | | | | | . | | | | | | | | | Confirma | | | | | | | | | tion of | | | | | | | | | a | | | | | | | | | positive | | | | | | | | | | | | | | | | | | screenin | | | | | | | | | gresult | | | | | | | | | is | | | | | | | | | availabl | | | | | | | | | e upon | | | | | | | | | request. | | | | | | | | | Screen | | | | | | | | | | | | | | | | | | evaluate | | | | | | | | | s for | | | | | | | | | theprese | | | | | | | | | nce of | | | | | | | | | Propoxyp | | | | | | | | | hene at | | | | | | | | | a | | | | | | | | | threshol | | | | | | | | | d | | | | | | | | | concentr | | | | | | | | | ation of | | | | | | | | | 300 | | | | | | | | | ng/mL. | + + + +-------+ + + + + | Lactic | 1.3 | mmol/L | | 0.4-2.0 | 02/18/18 | 02/18/18 | | | Acid | | | | | 4:57pm | 5:36pm | | | Level | | | | | | | | + + + +-------+ + + + + | Manual | Yes | | | | 02/18/18 | 02/18/18 | Smear | | Slide | | | | | 4:28pm | 5:35pm | scan | | Review | | [...] | | + + + +-------+ + + + + | Differen | Auto | | | | 02/18/18 | 02/18/18 | | | tial | | | | | 4:28pm | 5:35pm | | | Method | | | | | | | | + + + +-------+ + + + + | Neutroph | 71 | % | | 41-73 | 02/18/18 | 02/18/18 | | | ils (%) | | | | | 4:28pm | 5:35pm | | | (Auto) | | | | | | | | + + + +-------+ + + + + | Lymphocy | 15 | % | L | 21-46 | 02/18/18 | 02/18/18 | | | serge (%) | | | | | 4:28pm | 5:35pm | | | (Auto) | | | | | | | | + + + +-------+ + + + + | Monocyte | 8 | % | | 4-13 | 02/18/18 | 02/18/18 | | | s (%) | | | | | 4:28pm | 5:35pm | | | (Auto) | | | | | | | | + + + +-------+ + + + + | Eosinoph | 5 | % | | 0-6 | 18 | 02/18/18 | | | ils (%) | | | | | 4:28pm | 5:35pm | | | (Auto) | | | | | | | | + + + +-------+ + + + + | Basophil | 0 | % | | 0-2 | 18 | 02/18/18 | | | s (%) | | | | | 4:28pm | 5:35pm | | | (Auto) | | | | | | | | + + + +-------+ + + + + | Immature | 0 | % | | 0-1 | 02/18/18 | 02/18/18 | | | | | | | | 4:28pm | 5:35pm | | | Granuloc | | | | | | | | | yte % | | | | | | | | | (Auto) | | | | | | | | + + + +-------+ + + + + | Absolute | 4.38 | K/mm3 | | 1.96-9.1 | 02/18/18 | 02/18/18 | | | | | | | 5 | 4:28pm | 5:35pm | | | Neutroph | | | | | | | | | ils | | | | | | | | | (auto) | | | | | | | | + + + +-------+ + + + + | Absolute | 0.95 | K/mm3 | | 0.84-5.2 | 02/18/18 | 02/18/18 | | | | | | | 0 | 4:28pm | 5:35pm | | | Lymphocy | | | | | | | | | serge | | | | | | | | | (auto) | | | | | | | | + + + +-------+ + + + + | Absolute | 0.50 | K/mm3 | | 0.16-1.4 | 02/18/18 | 02/18/18 | | | | | | | 7 | 4:28pm | 5:35pm | | | Monocyte | | | | | | | | | s (auto) | | | | | | | | + + + +-------+ + + + + | Absolute | 0.29 | K/mm3 | | 0.00-0.6 | 02/18/18 | 02/18/18 | | | | | | | 8 | 4:28pm | 5:35pm | | | Eosinoph | | | | | | | | | ils | | | | | | | | | (auto) | | | | | | | | + + + +-------+ + + + + | Absolute | 0.02 | K/mm3 | | 0.00-0.2 | 02/18/18 | 02/18/18 | | | | | | | 3 | 4:28pm | 5:35pm | | | Basophil | | | | | | | | | s (auto) | | | | | | | | + + + +-------+ + + + + | Absolute | 0.02 | K/mm3 | | 0.00-0.1 | 02/18/18 | 02/18/18 | | | | | | | 0 | 4:28pm | 5:35pm | | | Immature | | | | | | | | | | | | | | | | | | Granuloc | | | | | | | | | yte | | | | | | | | | (auto | | | | | | | | + + + +-------+ + + + + | Prothrom | 10.2 | Sec | | 9.7-11.5 | 02/18/18 | 02/18/18 | | | bin Time | | | | | 4:28pm | 5:01pm | | + + + +-------+ + + + + | INR | 0.99 | | | | 02/18/18 | 02/18/18 | RECOMMEN | | Internat | | | | | 4:28pm | 5:01pm | DED | | ional | | [...] | | | | . | + + + +-------+ + + + + | Ethyl | <3 | mg/dL | | | 02/18/18 | 02/18/18 | FATALITI | | Alcohol | | | | | 4:28pm | 5:13pm | ES OCCUR | | Level | | | | | | | IN | | | | | | | | | CONCENTR | | | | | | | | | ATIONS | | | | | | | | | BETWEEN | | | | | | | | | 400-800 | | | | | | | | | mg/dl.No | | | | | | | | | te: | | | | | | | | | Testing | | | | | | | | | intended | | | | | | | | | for | | | | | | | | | medical | | | | | | | | | use | | | | | | | | | only. | + + + +-------+ + + + + | Troponin | <0.015 | ng/mL | | 0.000-0. | 02/16/18 | 02/16/18 | | | | | | | 040 | 9:30pm | 10:10pm | | + + + +-------+ + + + + Microbiology Results + + + + + + | Procedure | Source | Result | Collection | Result | | | | | Date/Time | Date/Time | + + + + + + | Blood Culture | Blood, | PRELIMINARY | 02/18/18 5:05pm | 02/19/18 6:50am | | | Venipuncture | REPORT: No | | | | | | growth on first | | | | | | day | | | + + + + + + Procedures No Known History of Procedures. Encounters + + + + + + | Encounter | Location | Arrival/Admit | Discharge/Depar | Attending | | | | Date | t Date | Provider | + + + + + + | Discharged | [facility] | 02/18/18 4:18pm | 02/19/18 2:54pm | Cole, | | Inpatient | [facility] [place] | | | Harvinder Serrano MD | + + + + + + | Departed | [facility] | 02/16/18 8:43pm | 02/16/18 | Nikolay Hackett MD | | Emergency | [facility] [place] | | 11:40pm | | + + + + + +"
--- OUTSIDE RECORDS SUMMARY | ~2019-03-25 | XMS | Continuity of Care Document ---
Demographics + + + | Address | [address] | | | [place] [address] | + + + | Home Phone | | + + + | Preferred Language | Unknown | + + + | Marital Status | Unknown | + + + | Baptism Affiliation | Unknown | + + + | Race | Unknown | + + + | Ethnic Group | Unknown | + + + Author + + + | Author | [facility] | + + + | Organization | [facility] | + + + | Address | [address] | | | [place] [address] | + + + | Phone | | + + + Support + + + + + | Name | Relationship | Address | Phone | + + + + + | EVAN Pascual | Caregiver | [facility] | | | | | [place] [address] | | + + + + + | EVAN Pascual | Caregiver | [facility] | | | | | [place] [address] | | + + + + + | DOLORES DIANA | [facility] | [address] | | | | | [place] [address] | | + + + + + Care Team Providers + + + + | Care Aircraft Power Plant 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
--- OUTSIDE RECORDS SUMMARY | ~2019-03-25 | XMS ---
Demographics + + + | Address | [address] [place] [address] | | | [place] [address] | + + + | Home Phone | | + + + | Preferred Language | Unknown | + + + | Marital Status | D | + + + | Confucianism Affiliation | Unknown | + + + | Race | White | + + + | Ethnic Group | or | + + + Author + + + | Author | [facility] | + + + | Organization | [facility] | + + + | Address | [address] | | | [place] [address] | + + + | Phone | Unavailable | + + + Care Team Providers + + + + | Care Account Service Associate Name | Role | Phone | + [...] WITH DIABETIC | | | NEPHROPATHY (ICD-250.40) (ADT22-F89.21) | | | Related Problem: | | | DIABETES MELLITUS- TYPE II 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- UNCONTROLLED (ICD-250.62) | | | (SKS94-Z07.40) Related | | | Problem: TYPE 2 DIABETES MELLITUS WITH | | | HYPERGLYCEMIA (NVC92-I42.65) Status: | | | Inadequately Controlled Pt [...] OSTEOARTHRITIS- KNEE- RIGHT (ICD-715.96) | | | (DHR86-J87.9) Status: Inadequately | | | Controlled Seeing [...] | | ................................Edna | | | Hope [facility] November 26, 2017 12:54 PM | | [...] | .........................Ambrose Ankur DNP | | | [employer] November 26, 2017 1:15 PM Diabetes: | [...] Number of Children: 7 | | | Mosque/Yazdanism: Congregational Primary | | | Language: Mongolian Use of Mongolian | | | Language: Fluent Review of [...] IM|Site: right deltoid|Mfr: | | | Ernesto|Lot: [id number]|Exp Date: | | | 06/26/2019|ND: [id number]|Vis-Version: | | | 03/31/2015|Vis-Given: | | | 11/26/2017|Vis-Signed: 11/26/2017|Vfc:V01 | | | ] Diabetic Rx Is your patient using | | | insulin? Yes # of tests per day: 4 | | | Length of need: 99 yrs Diagnosis: TYPE | | | 2 DIABETES MELLITUS WITH DIABETIC | | | NEPHROPATHY (ICD-250.40) (DKA60-V10.21), | | | DIABETES MELLITUS- TYPE II WITH | | | PERIPHERAL NEUROPATHY- UNCONTROLLED | | | (ICD-250.62) (ABP66-W95.40) Home Blood | | | Glucose Monitor: Yes Test Strips: 200 | | | Syringes: 200 Pen Hunker: 100 Lancets: | | | 200 Medicare [...]
--- OUTSIDE RECORDS SUMMARY | ~2019-03-25 | XMS | Clinical Summary ---
Demographics + + + | Address | [address] [place] [address] | | | [place] [address] | + + + | Home Phone [...] + + + | Author | [facility] | + + + | Organization | [facility] | + + + | Address | [address] | | | [place] [address] | + + + | Phone | Unavailable | + + + Care Team Providers + +------+ + | Care Talent Analyst Name | Role | Phone | + [...] tion | | +---------+---------+---------+---------+---------+---------+---------+---------+---------+ | DIABETE | [id number] | | Active | | David W | | Diabeti | | | S | [id number] | /15 | | /15 | Theen [...] s | | +---------+---------+---------+---------+---------+---------+---------+---------+---------+ | MUSCLE | [id number] | | Active | | Christen | | Muscle | | | PAIN | 1 | | | | J. | | pain | | | | (SNOMED | | | | [place] | | | | | | CT) | | | | ta NURSE INFORMATICS EDUCATOR | | | | +---------+---------+---------+---------+---------+---------+---------+---------+---------+ | DIABETE | [id number] | | Active | | David W | | Diabeti | | | S | [id number] | | | | Theen | | [...] s | | +---------+---------+---------+---------+---------+---------+---------+---------+---------+ | MILD | [id number] | | Active | | Maulik | [...] uterus | | +---------+---------+---------+---------+---------+---------+---------+---------+---------+ | COLONIC | 3262447 | | Active | | Emeka | [...] | | | +---------+---------+---------+---------+---------+---------+---------+---------+---------+ | CONSTIP | 7783352 | | Active | | Emeka | | Constip | | | ATION | 8 | /13 | | /13 | Petre | | ation | | | | (SNOMED | | | | MD | | | | | | CT) | | | | | | | | +---------+---------+---------+---------+---------+---------+---------+---------+---------+ | CHANGE | 7233786 | | Active | | Emeka | | Altered | | | IN | 9 | /13 | | /13 | Petre | | bowel | | | BOWEL | (SNOMED | | | | MD | | functio | | | HABITS | CT) | | | | | | n | | +---------+---------+---------+---------+---------+---------+---------+---------+---------+ | DECREAS | 9283375 | | Active | | Emeka | | Decreas | | | ED | 6 | /13 | | /13 | Petre | | e in | | | APPETIT | (SNOMED | | | | MD | | appetit | | | E | CT) | | | | | | e | | +---------+---------+---------+---------+---------+---------+---------+---------+---------+ | WEIGHT | 0448952 | | Active | | Emeka | | Abnorma | | | LOSS | 01 | / | | /13 | Petre | | l | | | ABNORMA | (SNOMED | | | | MD | | weight | | | L | CT) | | | | | | loss | | +---------+---------+---------+---------+---------+---------+---------+---------+---------+ | NAUSEA | 8373397 | | Active | | Emeka | | Nausea | | | ALONE | 07 | | | | Petre | | | | | | (SNOMED | | | | MD | | | | | | CT) | | | | | | | | +---------+---------+---------+---------+---------+---------+---------+---------+---------+ | RECTAL | 7860354 | | Active | | Emeka | | Rectal | | | BLEEDIN | 2 | 13 | | | Petre | | hemorrh | | | G | (SNOMED | | | | MD | | age | | | | CT) | | | | | | | | +---------+---------+---------+---------+---------+---------+---------+---------+---------+ | DEMENTI | 1802479 | | Active | | Christen | | Dementi | | | A | 6 | / | | / | J. | | a | | | WITHOUT | (SNOMED | | | | [place] | | | | | | CT) | | | | ta NURSE INFORMATICS EDUCATOR | | | | | BEHAVIO | | | | | | | | | | RAL | | | | | | | | | | DISTURB | | | | | | | | | | ANCE | | | | | | | | | +---------+---------+---------+---------+---------+---------+---------+---------+---------+ | CHRONIC | 3702730 | | Active | | Christen | | Chronic | | | | 03 | | | | J. | | | | | PROGRES | (SNOMED | | | | [place] | | progres | | | SIVE | CT) | | | | ta NURSE INFORMATICS EDUCATOR | | sive | | | RENAL | | | | | | | renal | | | FAILURE | | | | | | | failure | | +---------+---------+---------+---------+---------+---------+---------+---------+---------+ | ANEMIA | 7832398 | | Active | | Christen | | Anemia | | | | 00 | / | | / | J. | | | | | | (SNOMED | | | | [place] | | | | | | CT) | | | | ta NURSE INFORMATICS EDUCATOR | | | | +---------+---------+---------+---------+---------+---------+---------+---------+---------+ | DEMENTI | 0986088 | | Active | | Christen | | Procedu | | | A | 03 | / | | / | J. | | re | | | SCREENI | (SNOMED | | | | [place] | | carried | | | NG | CT) | | | | ta NURSE INFORMATICS EDUCATOR | | out on | | | | | | | | | | | | | | | | | | | | subject | | +---------+---------+---------+---------+---------+---------+---------+---------+---------+ | FALL | 0735551 | | Active | | Christen | | At risk | | | RISK | | | | | J. | | for | | | | (SNOMED | | | | [place] | | falls | | | | CT) | | | | ta NURSE INFORMATICS EDUCATOR | | | | +---------+---------+---------+---------+---------+---------+---------+---------+---------+ | DIABETE | 4771721 | | Resolve | | Christen | | Diabeti | | | S | 417789 | /14 | d | /15 | J. | | c | | | MELLITU | (SNOMED | | | | [place] | | periphe | | | S, TYPE | CT) | | | | ta NURSE INFORMATICS EDUCATOR | | ral | | | [...] s | | +---------+---------+---------+---------+---------+---------+---------+---------+---------+ | CORNS | 5890923 | | Inactiv | | Kali | | Corns | | | AND | 00 | | e | | Palacio | | and | | | CALLOSI | (SNOMED | | | | DPM | | callus | | | TIES | CT) | | | | | | | | +---------+---------+---------+---------+---------+---------+---------+---------+---------+ | HAMMER | 8125764 | | Active | | Kali | [...] | | | +---------+---------+---------+---------+---------+---------+---------+---------+---------+ | HALLUX | 2429884 | | Active | | Kali | [...] ropathy | | +---------+---------+---------+---------+---------+---------+---------+---------+---------+ | DIABETE | 0702424 | | Active | | Kali | [...] s | | +---------+---------+---------+---------+---------+---------+---------+---------+---------+ | ONYCHOM | 4367100 | | Active | | Kali | | Onychom | | | YCOSIS | 08 | / | | / | Pal[place] | | ycosis | | | | (SNOMED | | | | DPM | | | | | | CT) | | | | | | | | +---------+---------+---------+---------+---------+---------+---------+---------+---------+ | HEARTBU | 3741419 | | Active | | Tiesha | | Heartbu | | | RN | 0 | /19 | | /19 | | | rn | | | | (SNOMED | | | | Maria Isabel | | | | | | CT) | | | | MD | | | | +---------+---------+---------+---------+---------+---------+---------+---------+---------+ | TYPE 2 | 8326363 | | Active | | Tiesha | | Disorde | | | DIABETE | 03 | / | | /19 | | | r due | | | S | (SNOMED | | | | [place] | | to type | | | [...] athy | | +---------+---------+---------+---------+---------+---------+---------+---------+---------+ | UTI | 5578561 | | Active | | Pako | | Urinary | | | | 5 | /13 | | /13 | [place] | | tract | | | | (SNOMED | | | | auff | | infecti | | | | CT) | | | | NURSE INFORMATICS EDUCATOR | | ous | | | | | | | | | | disease | | +---------+---------+---------+---------+---------+---------+---------+---------+---------+ | LOCALIZ | 3292689 | | Active | | D'Elena | [...] | | | +---------+---------+---------+---------+---------+---------+---------+---------+---------+ | LIPOMA | 6264334 | | Active | | Lauranc | | Lipoma | | | | 2 | /14 | | /14 | e W | | (clinic | | | | (SNOMED | | | | Lila | | al) | | | | CT) | | | | MD | | | | +---------+---------+---------+---------+---------+---------+---------+---------+---------+ | VITAMIN | 6244928 | | Active | | David Paez | | Vitamin | | | D | 6 | /14 | | /15 | Theen | | D | | | DEFICIE | (SNOMED | | | | MD FACE | | deficie | | | NCY | CT) | | | | FACP | | ncy | | +---------+---------+---------+---------+---------+---------+---------+---------+---------+ | OBESITY | 9390181 | | Active | | David Paez | | Obesity | | | , BMI | 01 | /14 | | /15 | Theen | | | | | 35-39.9 | (SNOMED | | | | MD FACE | | | | | , ADULT | CT) | | | | FACP | | | | +---------+---------+---------+---------+---------+---------+---------+---------+---------+ | DIABETE | 7690619 | | Removed | | David Paez | | Diabeti | | | S | 831214 | /14 | | /15 | Theen [...] s | | +---------+---------+---------+---------+---------+---------+---------+---------+---------+ | HALLUX | 6587774 | | Inactiv | | Kali | | Acquire | | | VALGUS, | 1 | | e | / | Palacio | | d | | | | (SNOMED | | | | DPM | | hallux | | | ACQUIRE | CT) | | | | | | valgus | | | D | | | | | | | | | +---------+---------+---------+---------+---------+---------+---------+---------+---------+ | HAMMER | 4407225 | | Inactiv | | Kali | | Hammer | | | TOE, | 08 | | e | | Palacio | | toe | | | OTHER, | (SNOMED | | | | DPM | | | | | ACQUIRE | CT) | | | | | | | | | D | | | | | | | | | +---------+---------+---------+---------+---------+---------+---------+---------+---------+ | ONYCHOM | 6881783 | | Inactiv | | Kali | [...] ropathy | | +---------+---------+---------+---------+---------+---------+---------+---------+---------+ | DIABETE | 2341069 | | Inactiv | | Kali | [...] s | | +---------+---------+---------+---------+---------+---------+---------+---------+---------+ | SCREENI | 8937017 | | Resolve | | Lauranc | | Depress | | | NG FOR | | | d | | e W | | ion | | | DEPRESS | (SNOMED | | | | Lila | | screeni | | | ION | CT) | | | | MD | | ng | | +---------+---------+---------+---------+---------+---------+---------+---------+---------+ | SCREENI | 0117676 | | Resolve | | Lauranc | [...] | | | +---------+---------+---------+---------+---------+---------+---------+---------+---------+ | SCREENI | 3968646 | | Resolve | | Lauranc | [...] ng | | +---------+---------+---------+---------+---------+---------+---------+---------+---------+ | SCREENI | 6961417 | | Removed | | Geetha | | Alcohol | | | NG FOR | 01 | /10 | | /10 | [place] | | | | | ALCOHOL | (SNOMED | | | | [facility] | | consump | | | ISM | CT) | | | | | | tion | | | | | | | | | | screeni | | | | | | | | | | ng | | +---------+---------+---------+---------+---------+---------+---------+---------+---------+ | SCREENI | 1667383 | | Removed | | Geetha | | Screeni | | | NG FOR | 05 | / | | / | [place] | | ng for | | | UNSPECI | (SNOMED | | | | [facility] | | disorde | | | FIED | CT) | | | | | | r | | | CONDITI | | | | | | | | | | ON | | | | | | | | | +---------+---------+---------+---------+---------+---------+---------+---------+---------+ | SCREENI | 0830711 | | Removed | | Geetha | | Depress | | | NG FOR | 06 | / | | /10 | [place] | | ion | | | DEPRESS | (SNOMED | | | | [facility]MA | | screeni | | | ION | CT) | | | | | | ng | | +---------+---------+---------+---------+---------+---------+---------+---------+---------+ | RENAL | 8644935 | | Active | | Lauranc | | Acute | | | FAILURE | 1 | / | | /02 | e W | [...] e | | +---------+---------+---------+---------+---------+---------+---------+---------+---------+ | EDEMA | 5107096 | | Active | | Lauranc | | Edema | | | | 08 | /15 | | /11 | e W | | | | | | (SNOMED | | | | Lila | | | | | | CT) | | | | MD | | | | +---------+---------+---------+---------+---------+---------+---------+---------+---------+ | RENAL | 5210754 | | Active | | Luz | [...] e | | +---------+---------+---------+---------+---------+---------+---------+---------+---------+ | PERIPHE | 9448638 | | Active | | Lauranc | | Periphe | | | RAL | 06 | /15 | | /15 | e W | | ral | | | VASCULA | (SNOMED | | | | Llia | | vascula | | | R | CT) | | | | MD | | r | | | DISEASE | | | | | | | disease | | +---------+---------+---------+---------+---------+---------+---------+---------+---------+ | CANDIDI | 7413232 | | Active | | Susanna | | Candidi | | | ASIS, | 6 | | | | Medel | | asis of | | | SKIN | (SNOMED | | | | MD | | skin | | | | CT) | | | | | | | | +---------+---------+---------+---------+---------+---------+---------+---------+---------+ | DYSURIA | 7063107 | | Active | | Erica | | Dysuria | | | | 1 | | | | Paul | | | | | | (SNOMED | | | | MA | | | | | | CT) | | | | | | | | +---------+---------+---------+---------+---------+---------+---------+---------+---------+ | VAGINIT | 2066130 | | Active | | Erica | | Vaginit | | | IS | 1 | | | | Paul | | is | | | | (SNOMED | | | | MA | | | | | | CT) | | | | | | | | +---------+---------+---------+---------+---------+---------+---------+---------+---------+ | RLQ | 8345132 | | Resolve | | Lauranc | | Right | | | PAIN | 02 | | d | /11 | e W | | lower | | | | (SNOMED | | | | Lila | | quadran | | | | CT) | | | | MD | | t pain | | +---------+---------+---------+---------+---------+---------+---------+---------+---------+ | ABDOMIN | 9222710 | | Resolve | | Lauranc | [...] | | PROPHYL | (ICD- | | d | /21 | e W [...] | | | +---------+---------+---------+---------+---------+---------+---------+---------+---------+ | KNEE | 5564826 | | Active | | Lauranc | | Knee | | | PAIN | 3 | /14 | | /14 | e W | | pain | | | | (SNOMED | | | | Lila | | | | | | CT) | | | | MD | | | | +---------+---------+---------+---------+---------+---------+---------+---------+---------+ | Questio | 1568987 | | Correct | | Lauranc | [...] | | | +---------+---------+---------+---------+---------+---------+---------+---------+---------+ | VERTEBR | 9082949 | | Active | | Lauranc | [...] e | | +---------+---------+---------+---------+---------+---------+---------+---------+---------+ | VERTIGO | 4875972 | | Active | | Luz | | Vertigo | | | | 01 | / | | /03 | Asad | | | | | | (SNOMED | | | | RN | | | | | | CT) | | | | | | | | +---------+---------+---------+---------+---------+---------+---------+---------+---------+ | CHEST | 5279351 | | Inactiv | | Genny | | Chest | | | PAIN | 9 | | e | /02 | [place]auf[place] | | pain | | | | (SNOMED | | | | | | | | | | CT) | | | | | | | | +---------+---------+---------+---------+---------+---------+---------+---------+---------+ | CHEST | 6012330 | | Inactiv | | Lauranc | [...] fied | | +---------+---------+---------+---------+---------+---------+---------+---------+---------+ | CEREBRO | 3137768 | | Active | | Rogers | | Cerebro | | | VASCULA | 0 | / | | | Laith | | vascula | | | R | (SNOMED | | | | MD | | r | | | DISEASE | CT) | | | | | | disease | | +---------+---------+---------+---------+---------+---------+---------+---------+---------+ | History | 7153678 | | Active | | Rogers | | Cerebra | | | of | 07 | / | | /16 | Laith [...] | | | +---------+---------+---------+---------+---------+---------+---------+---------+---------+ | DIABETI | 3844059 | | Active | | Rogers | | Diabeti | | | C | | | | / | Laith [...] thy | | +---------+---------+---------+---------+---------+---------+---------+---------+---------+ | HYPERLI | 1005192 | | Active | | Rogers | | Hyperli | | | PIDEMIA | 4 | /30 | | /30 | Laith | | pidemia | | | | (SNOMED | | | | MD | | | | | | CT) | | | | | | | | +---------+---------+---------+---------+---------+---------+---------+---------+---------+ | History | 5429592 | | Active | | Rogers | [...] e | | +---------+---------+---------+---------+---------+---------+---------+---------+---------+ | CEREBRA | 9268594 | | Correct | | Rogers | [...] s | | +---------+---------+---------+---------+---------+---------+---------+---------+---------+ | ABDOMIN | 5751421 | | Removed | | Patricia | [...] | | | +---------+---------+---------+---------+---------+---------+---------+---------+---------+ | RLQ | 9701620 | | Removed | | Patricia | [...] fied | | +---------+---------+---------+---------+---------+---------+---------+---------+---------+ | CARPAL | 0302700 | | Active | | Rogers | | Carpal | | | TUNNEL | 9 | | | /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 | | | | MD | | 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, LEFT | CT) | | | | | | e | | +---------+---------+---------+---------+---------+---------+---------+---------+---------+ | Questio | 4816162 | | Removed | | Rogers | [...] | | | +---------+---------+---------+---------+---------+---------+---------+---------+---------+ | GAIT | 3961613 | | Active | | Rogers | | Abnorma | | | IMBALAN | 2 | | | | Laith | | l gait | | | CE | (SNOMED | | | | MD | | | | | | CT) | | | | | | | | +---------+---------+---------+---------+---------+---------+---------+---------+---------+ | BRAIN | 3959791 | | Correct | | Rogers | [...] e | | +---------+---------+---------+---------+---------+---------+---------+---------+---------+ | PARESTH | 4064093 | | Active | | Rogers | | Paresth | | | ESIA, | 04 | /25 | | /25 | Laith | | esia of | | | HANDS | (SNOMED | | | | MD | | hand | | | | CT) | | | | | | | | +---------+---------+---------+---------+---------+---------+---------+---------+---------+ | PERIPHE | 5633031 | | Correct | | Rogers | | Periphe | | | RAL | 06 | /25 | ion | /25 | Laith | | ral | | | NEUROPA | (SNOMED | | | | MD | | nerve | | | THY | CT) | | | | | | disease | | +---------+---------+---------+---------+---------+---------+---------+---------+---------+ | THYROID | 3236459 | | Active | | Luz | | Thyroid | | | NODULE | 05 | /20 | | /20 | [place] | | nodule | | | | (SNOMED | | | | [facility] | | | | | | CT) | | | | | | | | +---------+---------+---------+---------+---------+---------+---------+---------+---------+ | TIA | 2545473 | | Active | | Lauranc | [...] a | | +---------+---------+---------+---------+---------+---------+---------+---------+---------+ | SYNCOPE | 7075920 | | Active | | Lauranc | | Syncope | | | | | | | | e W | | | | | | (SNOMED | | | | Lila | | | | | | CT) | | | | MD | | | | +---------+---------+---------+---------+---------+---------+---------+---------+---------+ | GASTROP | 1949261 | | Active | | Lauranc | | 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 | | | | (SNOMED | | | | Lila | | syndrom | | | | CT) | | | | MD | | e | | +---------+---------+---------+---------+---------+---------+---------+---------+---------+ | CONSTIP | 5011679 | | Active | | Lauranc | | Chronic | | | ATION, | 09 | /08 | | /08 | e W | | | | | CHRONIC | (SNOMED | | | | Lila | | constip | | | | CT) | | | | MD | | ation | | +---------+---------+---------+---------+---------+---------+---------+---------+---------+ | POSTHER | 9026089 | | Active | | Lauranc | | Posther | | | 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 | (SNOMED | | | | Lila | | neuralg | | | IA | CT) | | | | MD | | ia | | +---------+---------+---------+---------+---------+---------+---------+---------+---------+ | DIZZINE | 3938187 | | Active | | Lauranc | | Dizzine | | | SS | 03 | /08 | | /08 | e W | | ss | | | | (SNOMED | | | | Lila | | | | | | CT) | | | | MD | | | | +---------+---------+---------+---------+---------+---------+---------+---------+---------+ | DEHYDRA | 3029746 | | Active | | Lauranc | | Dehydra | | | TION | 6 | /08 | | /08 | e W | | tion | | | | (SNOMED | | | | Lila | | | | | | CT) | | | | MD | | | | +---------+---------+---------+---------+---------+---------+---------+---------+---------+ | DIABETE | 0380866 | | Active | | Lauranc | [...] | | | +---------+---------+---------+---------+---------+---------+---------+---------+---------+ | HYPERTE | 0443338 | | Active | | Lauranc | [...] take 1-2 | | | DIMENHYDRI | [id number] | Christen Ramirez | | 50 MG TABS | tabs 4 | | | MARCELA | 1 | [place] | | | times per | | | | | NURSE INFORMATICS EDUCATOR | | | day as | | | | | | | | needed | | | | | | + + + + + + + + | VICTOZA 18 | | | | LIRAGLUTID | [id number] | Jesus | | MG/3ML | | | | E | 2 | Ethan MD | | SOPN | | | | | | | + + + + + + + + | BASAGLAR | 1 pen | | | INSULIN | [id number] | Christen Ramirez | | KWIKPEN | every 3 | | | GLARGINE | 9 | [place] | | 100 | days 56 | | | | | NURSE INFORMATICS EDUCATOR | | UNIT/ML | units q [...] by mouth | | | MECLIZINE | [id number] | Franciscoporfirio W | | HCL 25 MG | [...] mix and | | | NA | [id number] | Maulik | | BOWEL PREP | [...] take 2 | | | GABAPENTIN | 7813471931 | Bailey W | | 300 MG [...] Inject 0.6 | | | LIRAGLUTID | [id number] | Christen Ramirez | | MG/3ML | mg daily | | | E | 2 | [place] | | SOPN | | | | | | NURSE INFORMATICS EDUCATOR | + + + + + + + + | ONDANSETRO | 1 tab | | | ONDANSETRO | 6753702555 | Kali | | N HCL 4 MG | every 4 | | | N HCL | 3 | Palacio DPM | | TABS | hours | | | | | | + + + + + + + + | VICTOZA 18 | | | | LIRAGLUTID | [id number] | Bailey W | | MG/3ML | [...] 1 tab | | | GABAPENTIN | 5224041720 | Jesus | | 300 MG | po tid . | | | | 0 | Ethan MD | | CAPS | Pt states | | | | | | | | as needed | | | | | | + + + + + + + + | COLACE 100 | 1 tab by | | | DOCUSATE | 2295326437 | Kali | | MG CAPS | mouth | | | SODIUM | 0 | Palacio DPM | | | daily at | | | | | | | | bedtime | | | | | | + + + + + + + + | CLONAZEPAM | Take one | | | CLONAZEPAM | 0954182160 | Edna | | 0.5 MG | [...] take 1 | | | ASPIRIN | 7071586862 | Rogers | | 325 MG | [...] 1 tab | | | PREGABALIN | 2715664112 | Bailey W | | MG CAPS | three | | | | 3 | Lila LUIS | | | times per | | | | | | | | day | | | | | | + + + + + + + + | GLUCOPHAGE | 1 tab one | | | METFORMIN | 5413954089 | Franciscoporfirio W | | XR 500 MG | time per | | | HCL | 0 | Lila MD | | [id number] | day | | | | | | + + + + + + + + | HUMALOG | BS <150 - | | | INSULIN | 0986783254 | Christen Ramirez | | 100 | No insulin | | | LISPRO | 1 | [place] | | UNIT/ML | BS | | | (HUMAN) | | NURSE INFORMATICS EDUCATOR | | SOLN | 150-200 | [...] 50 units | | | INSULIN | 0321224782 | Pako | | UNIT/ML | once per | | | GLARGINE | 3 | [place]kauf | | SOLN | day. Pt | | | | | f NURSE INFORMATICS EDUCATOR | | | states she | | | | | | | | is taking | | | | | | | | 56 units | | | | | | | | every AM | | | | | | + + + + + + + + | NITROFURAN | Take one | | | NITROFURAN | 0176376286 | Edna | | TOIN | capsule [...] | One | | | ERGOCALCIF | 6362617551 | Mariano | | QUANG 43118 | capsule by | | | QUANG [...] take 2 | | | GABAPENTIN | 4741456322 | Mariano | | 300 MG | [...] 10ml QAM | | | METFORMIN | 9374268899 | Mariano | | MG/5ML | Liquid due | | | HCL | 2 | Ariella | | SOLN | to | | | | | CCMA | | | Dysphagia | | | | | | + + + + + + + + | ASPIRIN EC | take 1 | | | ASPIRIN | 7603618740 | Rogers | | 325 MG | tablet | | | | 0 | Laith MD | | TBEC | daily | | | | | | + + + + + + + + | RELION | Use to | | | GLUCOSE | 9078780167 | Kali | | BLOOD | test BG | | | BLOOD | 4 | Palacio DPM | | GLUCOSE | one time | | | | | | | TEST STRP | per day | | | | | | + + + + + + + + | NITROFURAN | | | | NITROFURAN | 7080174914 | Edna | | TOIN | | [...] one tablet | | | DOCUSATE | 8622091067 | Laurance W | | MG CAPS | by mouth | | | SODIUM | 0 | Lila MD | | | at bedtime | | | | | | + + + + + + + + | BIOTIN 1 | Take one | | | BIOTIN | 4413602844 | Jesus | | MG CAPS | daily in | | | | 2 | Ethan MD | | | the AM | | | | | | + + + + + + + + | BACTRIM DS | 1 by mouth | | | TRIMETHOPR | 9571112829 | Laurance W | | 800-160 | twice a | | | IM-SULFAME | 1 | Lila MD | | MG TABS | day for 3 | | | THOXAZOLE | | | | | days | | | | | | + + + + + + + + | ASPIRIN 81 | one time | | | ASPIRIN | 4476784555 | Mariano | | MG TABS | per day | | | | 5 | Ariella | | | | | | | | CCMA | + + + + + + + + | GABAPENTIN | two times | | | GABAPENTIN | 3917028589 | Mariano | | 100 MG | per day | | | | 1 | Ariella | | CAPS | | | | | | CCMA | + + + + + + + + | BIOTIN 1 | | | | BIOTIN | 6674513533 | Kali | | MG CAPS | | | | | 2 | Palacio DPM | + + + + + + + + | PIOGLITAZO | Take 1 tab | | | PIOGLITAZO | 4009754724 | Jesus | | NE HCL 15 [...] two times | | | MECLIZINE | 1947221998 | Mariano | | HCL 25 MG [...] take 1 | | | ASPIRIN | 9831542883 | Mariano | | 325 MG | tablet | | | | 0 | Ariella | | TBEC | daily | | | | | CCMA | + + + + + + + + | PIOGLITAZO | Take 1 tab | | | PIOGLITAZO | [id number] | Christen Ramirez | | NE HCL 15 | by mouth | | | NE HCL | 0 | [place] | | MG TABS | one time | | | | | NURSE INFORMATICS EDUCATOR | | | per day in | | | | | | | | the AM | | | | | | + + + + + + + + | NEURONTIN | take 1 tab | | | GABAPENTIN | [id number] | Bailey W | | 300 MG | po tid | | | | 0 | Lila MD | | CAPS | | | | | | | + + + + + + + + | DIOVAN 160 | one time | | | VALRTAN | [id number] | Mariano | | MG TABS | per day | | | | 0 | Ariella | | | | | | | | CCMA | + + + + + + + + | ASPIRIN | take 1 | | | ASPIRIN | [id number] | Bailey W | | 325 MG [...] Take one | | | POTASSIUM | [id number] | Jesus | | CHLORIDE | cap daily | | | CHLORIDE | 5 | Ethan MD | | ER 10 MEQ | in the AM | | | | | | | CR-CAPS | | | | | | | + + + + + + + + | KEFLEX 500 | 1 pill | | | CEPHALEXIN | [id number] | Tiesha | | MG CAPS | twice a | | | | 0 | Maria Isabel MD | | | day for 7 | | | | | | | | days | | | | | | + + + + + + + + | GABAPENTIN | one tablet | | | GABAPENTIN | 3253517631 | Laurance W | | 100 MG [...] 1 tab | | | MECLIZINE | 2466601198 | Laurance W | | HCL 25 MG | three | | | HCL | 1 | Lila MD | | TABS | times per | | | | | | | | day | | | | | | + + + + + + + + | NITROFURAN | Take one | | | NITROFURAN | 4922778770 | Edna | | TOIN | capsule [...] 0.02 ml | | | EXENATIDE | 9115738479 | Bailey W | | MCG PEN 5 | injection | | | | 1 | Lila MD | | MCG/0.02ML | two times | | | | | | | SOPN | per day | | | | | | + + + + + + + + | FLUCONAZOL | take one | | | FLUCONAZOL | 6906160533 | Bailey W | | E 150 [...] tab two | | | CILOSTAZOL | 1902038749 | Kali | | 100 MG | times per | | | | 1 | Palacio DPM | | TABS | day | | | | | | + + + + + + + + | RIOMET 500 | 10ml's two | | | METFORMIN | 8404848480 | Laurance W | | MG/5ML | [...] D | | | | CHOLECALCI | 9296209979 | Kali | | 1000 UNIT | | | | FEROL | 0 | Hakeem DPM | | TABS | | | | | | | + + + + + + + + | NEURONTIN | take 1 tab | | | GABAPENTIN | 3504427851 | Christen Ramirez | | 300 MG | po tid . | | | | 0 | [place] | | CAPS | Pt states | | | | | NURSE INFORMATICS EDUCATOR | | | as needed | | | | | | + + + + + + + + | PANTOPRAZO | Take one | | | PANTOPRAZO | 9540254453 | Edna | | LE SODIUM | tablet by | | | LE SODIUM | 0 | Hope CCMA | | 40 MG TBEC | mouth once | | | | | | | | daily | | | | | | + + + + + + + + | BYETTA 5 | Take as | | | EXENATIDE | 6910398181 | Christen Ramirez | | MCG PEN 5 | directed | | | | 1 | [place] | | MCG/0.02ML | once daily | | | | | NURSE INFORMATICS EDUCATOR | | SOPN | in the [...] two times | | | METFORMIN | 9095940812 | Mariano | | HCL 1000 | per day | | | HCL | 1 | Ariella | | MG TABS | | | | | | CCMA | + + + + + + + + | GABAPENTIN | Take 2 | | | GABAPENTIN | 4210358660 | Bailey W | | 300 MG [...] TAKE ONE | | | PREGABALIN | 2432424531 | Kesha | | MG CAPS | [...] 1 TAB | | | BUSPIRONE | 8648389337 | Kali | | HCL 7.5 MG | three | | | HCL | 5 | Palacio DPM | | TABS | times per | | | | | | | | day | | | | | | + + + + + + + + | LANTUS 100 | 25 units | | | INSULIN | 0802988609 | Jesus | | UNIT/ML | two [...] two times | | | MECLIZINE | 9761830613 | Bailey W | | HCL 25 MG | per day | | | HCL | 2 | Lila MD | | TABS | | | | | | | + + + + + + + + | MECLIZINE | One tab by | | | MECLIZINE | 3820634652 | Laurance W | | HCL 25 [...] Take one | | | PROMETHAZI | 9625455381 | Edna | | NE HCL 25 [...] Take one | | | CHOLECALCI | 4714433307 | Jesus | | 1000 UNIT | tablet | | | FEROL | 0 | Ethan MD | | TABS | daily in | | | | | | | | the AM | | | | | | + + + + + + + + | POTASSIUM | | | | POTASSIUM | 8061331177 | Kali | | CHLORIDE | | | | CHLORIDE | 5 | Palacio DPM | | ER 10 MEQ | | | | | | | | CR-CAPS | | | | | | | + + + + + + + + | DULOXETINE | 1 tab one | | | DULOXETINE | 5430251228 | Bailey W | | HCL 30 MG | time per | | | HCL | 6 | Lila MD | | CPEP | day | | | | | | + + + + + + + + | PROCHLORPE | Insert one | | | PROCHLORPE | 5063907601 | Edna | | RAZINE 25 | [...] 56 Units | | | INSULIN | 6587604201 | Christen Ramirez | | KWIKPEN | every | | | GLARGINE | 9 | [place] | | 100 | morning | | | | | NURSE INFORMATICS EDUCATOR | | UNIT/ML | | | | | | | | SOPN | | | | | | | + + + + + + + + | PLAVIX 75 | 1 tab by | | | CLOPIDOGRE | 7414495038 | Christen Ramirez | | MG TABS | mouth one | | | L | 0 | [place] | | | time per | | | BISULFATE | | NURSE INFORMATICS EDUCATOR | | | day in the | | | | | | | | evening | | | | | | + + + + + + + + | VICTOZA 18 | .6 mg x 1 | | | LIRAGLUTID | [id number] | Christen Escudero. | | MG/3ML | week then | | | E | 2 | [place] | | SOPN | 1.2 mg | | | | | NURSE INFORMATICS EDUCATOR | | | daily per | | | | | | | | week | | | | | | + + + + + + + + | LYRICA 100 | 1 tab | | | PREGABALIN | 2383136431 | Christen Ramirez | | MG CAPS | three | | | | 1 | [place] | | | times per | | | | | NURSE INFORMATICS EDUCATOR | | | day. Pt | | | | | | | | states as | | | | | | | | needed | | | | | | + + + + + + + + | OMEPRAZOLE | Take one | | | OMEPRAZOLE | 7751395266 | Christen Escudero. | | 40 MG | by mouth | | | | 5 | [place] | | CPDR | one time | | | | | NURSE INFORMATICS EDUCATOR | | | per day | [...] Take 1 | | | GLIPIZIDE | 2648973354 | Christen Ramirez | | XL 2.5 MG | tablet | | | | 1 | [place] | | [id number] | p.o. | | | | | NURSE INFORMATICS EDUCATOR | | | q.a.m. | | | | | | + + + + + + + + | BD INSULIN | Use 5 | | | INSULIN | 0160350328 | Christen Ramirez | | SYRINGE | times | | | SYRINGE-NE | 1 | [place] | | ULTRAFINE | daily to | | | EDLE U-100 | | NURSE INFORMATICS EDUCATOR | | 29G X 1/2" | [...] 3U before | | | INSULIN | 7567058467 | Christen Ramirez | | 100 | lunch and | | | ASPART | 1 | [place] | | UNIT/ML | 5U before | | | | | NURSE INFORMATICS EDUCATOR | | SOLN | Dinner | [...] 3U before | | | INSULIN | 3850342541 | Christen J. | | 100 | lunch and | | | LISPRO | 0 | [place] | | UNIT/ML | 5U before | | | | | NURSE INFORMATICS EDUCATOR | | SOLN | Dinner | [...] Inject 0.6 | | | LIRAGLUTID | 3710985646 | Christen Ramirez | | MG/3ML | mg daily | | | E | 2 | [place] | | SOPN | | | | | | NURSE INFORMATICS EDUCATOR | + + + + + + + + | LIPITOR 20 | take 1 | | | ATORVASTAT | 3741614218 | Christen Ramirez | | MG TABS | tablet by | | | IN CALCIUM | 0 | [place] | | | mouth | | | | | NURSE INFORMATICS EDUCATOR | | | daily in | | | | | | | | the | | | | | | | | evening | | | | | | + + + + + + + + | BASAGLAR | 56 Units | | | INSULIN | 3988219107 | Christen Ramirez | | KWIKPEN | by mouth | | | GLARGINE | 9 | [place] | | 100 | every | | | | | NURSE INFORMATICS EDUCATOR | | UNIT/ML | morning | | | | | | | SOPN | | | | | | | + + + + + + + + | VICTOZA 18 | 5 unit AM | | | LIRAGLUTID | 5075957433 | Christen Ramirez | | MG/3ML | and 5 | | | E | 2 | [place] | | SOPN | units PM | | | | | NURSE INFORMATICS EDUCATOR | + + + + + + + + | BASAGLAR | 1 pen | | | INSULIN | 8589506333 | Christen Ramirez | | KWIKPEN | every 3 | | | GLARGINE | 9 | [place] | | 100 | days 56 | | | | | NURSE INFORMATICS EDUCATOR | | UNIT/ML | units q | | | | | | | SOPN | Day | | | | | | + + + + + + + + | MECLIZINE | One tab by | | | MECLIZINE | 2517513210 | Christen Ramirez | | HCL 25 MG | mouth | | | HCL | 0 | [place] | | TABS | three | | | | | NURSE INFORMATICS EDUCATOR | | | times per | [...] every | | | FOR | | NURSE INFORMATICS EDUCATOR | | BASAGLAR | morning | | | BASAGLAR | | | | KWIKPEN | with | | | KWIKPEN | | | | | Basaglar | | | | | | | | Kwikpen | | | | | | + + + + + + + + | BYETTA 5 | Take as | | | EXENATIDE | 7598391576 | Christen Escudero. | | MCG PEN 5 | directed | | | | 1 | [place] | | MCG/0.02ML | once daily | | | | | NURSE INFORMATICS EDUCATOR | | SOPN | in the AM | | | | | | + + + + + + + + | LANTUS 100 | 56 units | | | INSULIN | 2732838633 | Kaykay | | UNIT/ML | qAM | | | GLARGINE | 3 | Mora DO | | SOLN | | | | | | | + + + + + + + + | VALSARTAN | Take one | | | VALSARTAN | 2869797292 | Christen Ramirez | | 160 MG | tablet | | | | 2 | [place] | | TABS | daily in | | | | | NURSE INFORMATICS EDUCATOR | | | the AM | | | | | | + + + + + + + + | SUPREP | mix and | | | NA | 1302921064 | Emeka | | BOWEL PREP | [...] pill BID | | | DOCUSATE | [id number] | Christen Ramirez | | MG CAPS | | | | SODIUM | 0 | [place] | | | | | | | | NURSE INFORMATICS EDUCATOR | + + + + + + + + | HUMALOG | BS <150 - | | | INSULIN | 3860967292 | Tiesha | | 100 | No insulin | | | LISPRO | 1 | [place] MD | | UNIT/ML | BS | [...] Use daily | | | GLUCOSE | 4639235893 | Tiesha | | BLOOD | to check | | | BLOOD | 4 | [place] MD | | GLUCOSE | blood | | | | | | | TEST STRP | sugar | | | | | | + + + + + + + + | BD PEN | Use daily | | | INSULIN | 9889096264 | Tiesha | | NEEDLE | to [...] tab by | | | FUROSEMIDE | 5059922084 | Tiesha | | MG TABS | mouth one | | | | 5 | [place] MD | | | time per | [...] custom | | | ORTHOTIC | | [place] MD | | SHOES | fit from | | | SHOES | | | | | podiatry | | | | | | | | E11.65, | | | | | | | | e11.21 | | | | | | + + + + + + + + | DIABETIC | 1 pair per | | | FOOT CARE | [id number] | Tiesha | | INSOLES | custom | | | PRODUCTS | 2 | [place] MD | | MISC | fit from [...] 1 pill | | | CEPHALEXIN | 7721198917 | Pako | | MG CAPS | twice a | | | | 0 | Middlekauf | | | day for 7 | | | | | f NURSE INFORMATICS EDUCATOR | | | days | | | | | | + + + + + + + + | BYETTA 5 | 0.02 ml | | | EXENATIDE | 3665092621 | Bailey W | | MCG PEN 5 | injection | | | | 1 | Lila MD | | MCG/0.02ML | two times | | | | | | | SOPN | per day | | | | | | + + + + + + + + | LYRICA 100 | 1 tab | | | PREGABALIN | 8226627214 | Bailey W | | MG CAPS | three | | | | 8 | Lila MD | | | times per | | | | | | | | day | | | | | | + + + + + + + + | DRAMAMINE | take 1-2 | | | DIMENHYDRI | 9623949101 | Laurance W | | 50 MG [...] Use 5 | | | INSULIN | 5641745622 | Bailey W | | SYRINGE | [...] tab by | | | CLOPIDOGRE | 1654123399 | Laurance W | | MG TABS | mouth one | | | L | 4 | Lila MD | | | time per | | | BISULFATE | | | | | day | | | | | | + + + + + + + + | LANTUS 100 | 25 units | | | INSULIN | 4622504848 | Laurance W | | UNIT/ML | two times | | | GLARGINE | 3 | Lila MD | | SOLN | per day | | | | | | + + + + + + + + | LASIX 80 | 1 tab by | | | FUROSEMIDE | 5478178340 | Laurance W | | MG TABS | mouth one | | | | 5 | Lila MD | | | time per | | | | | | | | day | | | | | | + + + + + + + + | FUROSEMIDE | 1 tab one | | | FUROSEMIDE | 3553410032 | Laurance W | | 40 MG | time per | | | | 0 | Lila MD | | TABS | day | | | | | | + + + + + + + + | BUSPIRONE | 1 TAB | | | BUSPIRONE | 6880416793 | Laurance W | | HCL 7.5 MG | three | | | HCL | 5 | Lila MD | | TABS | times per | | | | | | | | day | | | | | | + + + + + + + + | COLACE 100 | 1 tab by | | | DOCUSATE | 1322216565 | Laurance W | | MG CAPS | mouth | | | SODIUM | 0 | Lila MD | | | daily at | | | | | | | | bedtime | | | | | | + + + + + + + + | BACTRIM DS | 1 by mouth | | | TRIMETHOPR | 0284054838 | Laurance W | | 800-160 | twice a | | | IM-SULFAME | 1 | Lila MD | | MG TABS | day for 3 | | | THOXAZOLE | | | | | days | | | | | | + + + + + + + + | LYRICA 50 | Take 1 tab | | | PREGABALIN | 3763509431 | Laurance W | | MG CAPS [...] tab one | | | METFORMIN | 1661975864 | Laurance W | | XR 500 MG | time per | | | HCL | 0 | Illa MD | | [id number]-OEC | day | | | | | | + + + + + + + + | PIOGLITAZO | Take 1 tab | | | PIOGLITAZO | 1776691485 | Bailey W | | NE HCL 15 | by mouth | | | NE HCL | 0 | Lila MD | | MG TABS | one time | | | | | | | | per day | | | | | | + + + + + + + + | NYSTATIN-T | Apply thin | | | NYSTATIN-T | 0444857204 | Laurance W | | RIAMCINOLO | layer to | | | RIAMCINOLO | 0 | Lila MD | | NE | affected | | | NE | | | | 013043-6.1 | area BID | | | | | | | UNIT/GM-% | prn for | | | | | | | CREA | itching | | | | | | + + + + + + + + | CILOSTAZOL | 1 tab two | | | CILOSTAZOL | 2697345753 | Laurance W | | 100 MG | times per | | | | 1 | Lila MD | | TABS | day | | | | | | + + + + + + + + | OMEPRAZOLE | Take one | | | OMEPRAZOLE | 9182999974 | Laurance W | | 40 MG [...] take 1 | | | ATORVASTAT | 8555544304 | Laurance W | | MG TABS | tablet by | | | IN CALCIUM | 0 | Lila MD | | | mouth | | | | | | | | daily | | | | | | + + + + + + + + | MECLIZINE | 1 tab | | | MECLIZINE | 9084819250 | Laurance W | | HCL 25 MG | three | | | HCL | 1 | Lila MD | | TABS | times per | | | | | | | | day | | | | | | + + + + + + + + | LANTUS 100 | 56 units | | | INSULIN | 5998498868 | Laurance W | | UNIT/ML | in the | | | GLARGINE | 3 | Lila MD | | SOLN | morning | | | | | | + + + + + + + + | ONDANSETRO | 1 tab | | | ONDANSETRO | 3588407097 | Laurance W | | N HCL 4 MG | every 4 | | | N HCL | 3 | Lila MD | | TABS | hours | | | | | | + + + + + + + + | RELION | Use to | | | GLUCOSE | 0467080224 | Bailey W | | BLOOD | test BG | | | BLOOD | 4 | Lila MD | | GLUCOSE | one time | | | | | | | TEST STRP | per day | | | | | | + + + + + + + + | GABAPENTIN | Take 2 | | | GABAPENTIN | 5645520278 | Bailey W | | 300 MG [...] TAB one | | | VALSARTAN | 5074411753 | Bailey W | | 160 MG | time per | | | | 2 | Lila MD | | TABS | day | | | | | | + + + + + + + + | LYRICA 50 | TAKE ONE | | | PREGABALIN | 9401275615 | Bailey W | | MG CAPS [...] 0.2 ml | | | EXENATIDE | 1434680015 | Bailey W | | MCG PEN 5 | injection | | | | 1 | Lila MD | | MCG/0.02ML | two times | | | | | | | SOPN | per day | | | | | | + + + + + + + + | VICTOZA 18 | 1.2 mg | | | LIRAGLUTID | 0250158374 | Franciscoance W | | MG/3ML | injected | | | E | 3 | Lila MD | | SOPN | martin | | | | | | + + + + + + + + | KEFLEX 500 | one po TID | | | CEPHALEXIN | 4677033721 | Susanna | | MG CAPS | | | | | 0 | Gianfranco MD | + + + + + + + + | FLUCONAZOL | take one | | | FLUCONAZOL | 9192903546 | Susanna | | E 150 MG | tablet PO | | | E | 0 | Medel MD | | TABS | x 1 repeat | | | | | | | | in 3 days | | | | | | + + + + + + + + | LYRICA 50 | 1 tab | | | PREGABALIN | 0392503035 | Laurance W | | MG CAPS | three | | | | 3 | Lila MD | | | times per | | | | | | | | day | | | | | | + + + + + + + + | GABAPENTIN | Take 2 | | | GABAPENTIN | 5082762477 | Laurance W | | 300 MG [...] tab one | | | DULOXETINE | 8828408013 | Laurance W | | HCL 30 MG | time per | | | HCL | 6 | Lila MD | | CPEP | day | | | | | | + + + + + + + + | RIOMET 500 | 10ml's two | | | METFORMIN | 8482264013 | Laurance W | | MG/5ML | [...] TAB one | | | VALSARTAN | 9498858216 | Franciscoance W | | MG TABS | time per | | | | 0 | Lila MD | | | day | | | | | | + + + + + + + + | MECLIZINE | One tab by | | | MECLIZINE | 0748211154 | Laurance W | | HCL 25 [...] take 2 | | | GABAPENTIN | 2293293575 | Laurance W | | 300 MG [...] tab one | | | VALSARTAN | 1968506445 | Bailey W | | MG TABS | time per | | | | 4 | Lila MD | | | day | | | | | | + + + + + + + + | VICTOZA 18 | 0.6 mg | | | LIRAGLUTID | 6096404466 | Bailey W | | MG/3ML | [...] tab one | | | SITAGLIPTI | 4708028066 | Laurance W | | 100 MG | time per | | | N | 8 | Lila MD | | TABS | day | | | PHOSPHATE | | | + + + + + + + + | DIOVAN 160 | 1 by mouth | | | VALSARTAN | 4968467997 | Laurance W | | MG TABS | every day | | | | 0 | Lila MD | + + + + + + + + | GABAPENTIN | 2 tabs two | | | GABAPENTIN | 7768135316 | Laurance W | | 300 MG | times per | | | | 0 | Lila MD | | CAPS | day | | | | | | + + + + + + + + | GABAPENTIN | 1 tab at | | | GABAPENTIN | 0020696005 | Laurance W | | 100 MG [...] 28 units | | | INSULIN | 7895797217 | Laurance W | | UNIT/ML | two times | | | GLARGINE | 0 | Lila MD | | SOLN | per day | | | | | | + + + + + + + + | LISINOPRIL | take 1 | | | LISINOPRIL | 9364681084 | Rogers | | 20 MG | tablet by | | | | 1 | Laith LUIS | | TABS | mouth | | | | | | | | daily | | | | | | + + + + + + + + | LANTUS 100 | 56 units | | | INSULIN | 6479547190 | Laurance W | | UNIT/ML | daily | | | GLARGINE | 0 | Lila MD | | SOLN | | | | | | | + + + + + + + + | GABAPENTIN | 1 by mouth | | | GABAPENTIN | 0884558147 | Laurance W | | 100 MG [...] | One | | | ERGOCALCIF | 1590129835 | Laurance W | | QUANG 25259 | capsule by | | | QUANG [...] by mouth | | | LISINOPRIL | 3772379059 | Laurance W | | 5 MG TABS | one time | | | | 0 | Lila MD | | | per day | | | | | | + + + + + + + + | RIOMET 500 | 10ml QAM | | | METFORMIN | 2223440713 | Laurance W | | MG/5ML | Liquid due | | | HCL | 2 | Lila MD | | SOLN | to | | | | | | | | Dysphagia | | | | | | + + + + + + + + | COLACE 100 | one tablet | | | DOCUSATE | 2192883963 | Laurance W | | MG CAPS | by mouth | | | SODIUM | 0 | Lila MD | | | at bedtime | | | | | | + + + + + + + + | MECLIZINE | 1 by mouth | | | MECLIZINE | 3892676506 | Laurance W | | HCL 25 [...] by mouth | | | ASPIRIN | 1027212754 | Laurance W | | MG TABS | every day | | | | 5 | Lila MD | + + + + + + + + | METFORMIN | one tablet | | | METFORMIN | 5900558945 | Laurance W | | HCL 1000 | by mouth | | | HCL | 0 | Lila MD | | MG TABS | twice a | | | | | | | | day | | | | | | + + + + + + + + | GABAPENTIN | one tablet | | | GABAPENTIN | 6681816471 | Laurance W | | 100 MG [...] | | | | | | | NURSE INFORMATICS EDUCATOR | + + + + + [...] +------+------+-------+------+-------+------+ + + + | Office Visit: F/U- [...] +--------+ +---+---+---+ + | | E[facility]_RR | [id number] | | | B | e-scripts | [...] | | | | | | | [place]*` | | | | | | | | [id number] | | | | | | | | `[id number] | | | | | | | [...] + + + +---+ + | | ZZ-GE-SHANKARK | * | | | | GE [...] +--------+ +---+---+---+ + | | [facility]_RR | [id number] | | | B | e-scripts | [...] | | | | | | | [place]*` | | | | | | | | 5784242872 | | | | | | | | `[id number] | | | | | | | | 59`398086` | | | | | | | [...] +--------+ +---+---+---+ + | | [facility]_RR | [id number] | | | B | e-scripts | [...] | | | | | | | [place]*` | | | | | | | | 4667785635 | | | | | | | | `[id number] | | | | | | | [...] +--------+ +---+---+---+ + | | [facility]_RR | [id number] | | | B | e-scripts | [...] | | | | | | | [place]*` | | | | | | | | 7685142261 | | | | | | | | `[id number] | | | | | | | [...] +--------+ +---+---+---+ + | | [facility]_RR | [id number] | | | B | e-scripts | [...] | | | | | | | 1315409689 | | | | | | | | `[id number] | | | | | | | [...] + + +---+ +---+ + | | MARLENY-GE-UNK | Non | | Non | | [...] + + + +---+---+---+ + | | MARLENY-GE-UNK | See Report | | | | [...] +--------+ +---+---+---+ + | | [facility] | [id number] | | | B | e-scripts | [...] | | | | | | | [id number] | | | | | | | | `[id number] | | | | | | | [...] | Rx Refill: eRx Request for INSULIN [id number] MIS | + + + +--------+ +---+---+---+ + | | [facility]_RR | [id number] | | | B | e-scripts | | | | 7`INSULIN | | | | messenger | | | | [id number] | | | | refill | | [...] | | | | | | | 0`04/30/ | | | | | | | | 16`05/08/ | | | | | | | | 016`Walmar | | | | | | | | t - | | | | | | | | Shirley*` | | | | | | | | 1192476445 | | | | | | | | `[id number] | | | | | | | | 01`04126`I | | | | | | | | NSULIN | | | | | | | | [id number] | | | | | | | [...] +--------+ +---+---+---+ + | | [facility]_RR | [id number] | | | B | e-scripts | [...] | | | | | | | 3749454898 | | | | | | | | `[id number] | | | | | | | | 568`44719` | | | | | | | [...] +--------+ +---+---+---+ + | | [facility] | [id number] | | | B | e-scripts | [...] | | | | | | | [id number] | | | | | | | | `[id number] | | | | | | | [...] | | | Dietary | | | BINDERY ASSISTANT | | | | | management | [...] +---+ + | | WBCS MICRO | 25-50 /hpf | {Cells}/[H | 0-5 | H [...] +---+ + | | WBC DIPSTK | 3+ | | Neg | H | leukocyte [...] + +---+ + | | ZZ-GE-UNK | UNKNOWN | | | | GE use | [...] | GFRC | 28 | mL/min/1.7 | >60 | L | Glomerular | | | | | 3m2 | | | | | | | | | | | Filtration | | | | | | | | Rate | | | | | | | | Calculatio | | | | | | | | n | + + + + + +---+ + | | PO4 | 3.84 | mg/dL | 2.4-4.7 | | phosphate, | | | | | | | | serum | + + + + + +---+ + | | CALCIUM | 9.0 | mg/dL | 8.6-10.2 | | calcium, | | | | | | | | serum | + + + + + +---+ + | | ALBUMIN | 4.0 | g/dL | 3.5-5.0 | | albumin, | | | | | | | | serum | + + + + + +---+ + | | CREATININE | 1.8 | mg/dL | 0.44-1.03 | H | creatinine | | | | | | | | , serum | + + + + + +---+ + | | BUN | 32 | mg/dL | 8-20 | H | urea | | | | | | | | nitrogen, | | | | | | | | blood | + + + + + +---+ + | | GLUCOSE | 146 | mg/dL | 70-99 | H | blood | | | SER | | | | | glucose | + + + + + +---+ + | | CO2 | 27 MEQ/L | mmol/L | 22-31 | | carbon | | | | | | | | dioxide, | | | | | | | | venous | | | | | | | | blood | + + + + + +---+ + | | CHLORIDE | 105 MEQ/L | mmol/L | 95-109 | | chloride, | | | | | | | | serum | + + + + + +---+ + | | POTASSIUM | 4.5 MEQ/L | mmol/L | 3.5-5.2 | | potassium, | | | | | | | | serum | + + + + + +---+ + | | SODIUM | 140 MEQ/L | mmol/L | 135-145 | | sodium, | | | | | | | | serum | + + + + + +---+ + + + | Lab Report: HEMOGLOBIN | + + + +-----+------+------+ +---+ + | | HGB | 10.8 | g/dL | 11.5-15.0 | L | hemoglobin | | | | | | | | , blood | + +-----+------+------+ +---+ + + + | Office Visit: Vertigo [...] + +---+---+---+ + | | PROTEIN, | trace | | | | Albumin | | [...] +---+---+---+ + | | WBC DIPSTK | 3+ | | | | leukocyte | | [...] + +---+---+---+ + | | APPEARANCE | cloudy | | | | appearance | | [...] ) | + + + +---+---+---+ + + + | Lab Report: Comprehensive Metabolic Panel, Troponin I | + + + + +--------+ + +---+ + | | TROPONIN I | <0.015 | ng/mL | 0.000-0.04 | N | troponin I | | | | | | 0 | | | + + +--------+ + +---+ + | | SGPT (ALT) | 58 | U/L | 12-78 | N | alanine | | | | | | | | aminotrans | | | | | | | | ferase | | | | | | | | (SGPT), | | | | | | | | serum | + + +--------+ + +---+ + | | SGOT (AST) | 63 | U/L | 12-37 | H | aspartate | | | | | | | | aminotrans | | | | | | | | ferase | | | | | | | | (SGOT), | | | | | | | | serum | + + +--------+ + +---+ + | | ALK PHOS | 121 | U/L | 40-126 | N | [...] + +---+ + | | ALBUMIN | 3.6 | g/dL | 3.4-5.0 | N | [...] + +---+ + | | BUN/CREAT | 16.3 % | | 12.0-20.0 | N | urea | | | | | | | | nitrogen/c | | | | | | | | reatinine | | | | | | | | ratio, | | | | | | | | serum | + + +--------+ + +---+ + | | CREATININE | 2.08 | mg/dL | 0.40-1.00 | H | [...] + +---+ + | | GLUCOSE | 390 | mg/dL | 70-99 | H | [...] | SODIUM | 139 | mmol/L | 136-145 | N | [...] +---+ + | | EOS ABSLT | 0.13 | 10*3/uL | 0.00-0.68 | N | [...] + +---+ + | | ANC | 2.27 | 10*3/mm3 | 1.96-9.15 | N | [...] +---+ + | | LYMPHS % | 36 | % | 21-46 | N | [...] + +---+ + | | MPV | 12.3 | fL | 9.1-12.4 | N | mean | | | | | | | | platelet | | | | | | | | volume | + + + + + +---+ + | | PLATELETS | 133 | 10*3/mm3 | 150-400 | L | [...] + +---+ + | | RDW-SD | 45.0 | fL | 35.1-46.3 | N | [...] +---+ + | | MCHC RBC | 33.1 | g/dL | 31.5-36.5 | N | [...] + +---+ + | | HCT | 33.2 | % | 33.0-51.0 | N | hematocrit | | | | | | | | , blood | + + + + + +---+ + | | HGB | 11.0 | g/dL | 11.5-16.0 | L | hemoglobin | | | | | | | | , blood | + + + + + +---+ + | | RBC | 3.74 | 10*6/mm3 | 3.80-5.20 | L | erythrocyt | | | | | | | | e (RBC) | | | | | | | | count | + + + + + +---+ + | | WBC | 4.32 | 10*3/mm3 | 4.00-11.30 | N | leukocyte | | | | | | | | count, | | | | | | | | blood | + + + + + +---+ + + + | Office Visit: Consult Visit | + + + +--------+--------+---+---+---+ + [...] +--------+--------+---+---+---+ + + + | Office Visit: lt wrist | + + + +--------+--------+---+---+---+ + | [...] [facility], | | | | [address], [place], [address], | | | | | + + + + | Appointment | 12:30 PM | Christen Florez NURSE INFORMATICS EDUCATOR, | | | | [address] | [address], [place], [address], | | | | | + + + + | Referral | | Physical Therapy Evaluation | | | | [facility], [address], [place], [address] | | | | | | | | | + + + + | Referral | | Physical Therapy Evaluation | | | | [facility], [address] | | | [address], [place], [address] | | | | | | | | | + + + + | Referral | | GI Consult | | | | Emeka Clark MD, [address] | [address], | | | | [place], [address] | | | | | + + + + | Referral | | GI Consult | | | | Emeka Clark MD, [address] | | [address], | | | | [place], [address] | | | | | + + + + | Referral | | Nephrology Evaluation | | | | Anisa Reeves MD, | | | | [address] | [address], [place], [address] | | | | | | | | | + + + + | Referral | | Nephrology Evaluation | | | | MD Iraj Juarez, | | | | [address], | | | | [address], [place], [address] | | | | | | | | | + + + + | Referral | | Surgical Consult | | | | Jesus Long, [address] | | | [address], | | | | [place], [address] | | | | | + + + + | Referral | | Surgical Consult | | | | Jesus Long, [address] | | | [address], | | | | [place], [address] | | | | | + + + + | Referral | | Endocrinology Consult | + + + + | Referral | | Podiatry Consult | | | | Kali Palacio, [address] | | | | [place], | | | | [place], [address] | | | | | + + + + | Referral | | Nephrology Evaluation | | | | MD Iraj Juarez, | | | | [address], | | | | [address], [place], [address] | | | | | | | | | + + + + | Referral | | Podiatry Consult | | | | Kali Palacio, [address] | | | | [place], | | | | [place], [address] | | | | | + + + + | Referral | | Nephrology Evaluation | | | | MD Iraj Juarez, | | | | [address], | | | | [address], [place], [address] | | | | | | | | | + + + + | Referral | | Neurology Consult | | | | Values of n Phone #, | | | | [address] [facility] | | | | [place], [address] | | | | | + + + + | Referral | | Neurology Consult | | | | Values of n Phone #, | | | | [address] [facility] | | | | , [place], [address] | | | | | + + + + | Referral | | MRA Head-WO Con | | | | Dian Scheduling, [address] | | | | [address], | | | | [place], [address] | | | | | + + + + | Referral | | MRA Head-WO Con | | | | Dian Scheduling, [address] | | | | [facility], | | | | [place], [address] | | | | | + + + + | Referral | | MRA Head-WWO Con | | | | Dian Atkins, [address] | | | | [facility] [address], | | | | [place], [address] | | | | | + + + + | Referral | | MRA Head-WWO Con | | | | Dian Atkins, [address] | | | | [facility], | | | | [place], [address] | | | | | + + + + +---+ + | | Referral excluded from report: | +---+ + + + + + | Referral | | Physical Therapy Evaluation | | | | [facility], [address] | | | | [address] | | | | [address], [place], [address] | | | | | | | | | + + + + | Referral | | Neurology Consult | | | | MD August Bourne, [address] | | | | [address] [place] [address], | | | | [place], [address] | | | | | + + + + | Referral | | Neurology Consult | | | | Rogers Ozuna, [address] | | | | [address] [place] [address], | | | | [place], [address] | | | | | + + + + | Referral | | Cardiology Consult | | | | MD Pelon Fay, | | | | [address] [facility] | | | | [address], [place], [address] | | | | | | | | | + + + + | Referral | | GI Consult | | | | [address] | | | | [address], [place], [place], [address] | | | | | | | | | + + + + | Referral | | Physical Therapy Evaluation | | | | [facility], [address] | | | | [address] | | | | [address], [place], [address] | | | | | | | | | + + + + | Referral | | Diabetic Education - | | | | Individual | | | | [facility], | | | | [address], | | | | [place], [address] | | | | | + + + + | Referral | | GI Consult | | | | [address] | | | | [address], [place], [place], [address] | | | | | | | | | + + + + | Referral | | US Soft Tissue Head/Neck | | | | Exam Dian | | | | Mil[address], [address] | | | | [place], [place], | | | | [address] | | | | | + + + + | Referral | | Neurology Consult | | | | [place] [facility] | | | | [facility], [address] [facility], | | | | [place], [address] | | | | | + + + + | Referral | | VL Carotid-Cerebral Duplex | | | | Dian | | | | Scheduling, [address] | | | | [place], [place], | | | | [address] | | | | | + + + + | Referral | | Holter Monitor | | | | Dian Atkins, [address] | | | | [address], | | | | [place], [address] | | | | | + + [...] Microalb/Creat Ratio UR, | | | | [place] | + + + + | Pending [...] | + + + + + | CPT-11114 | Glucose by monitor | | | + + + + + | CPT-29184 | UA Dipstick | | | + + + + + | CPT-46284 | UA Dipstick | | | + + + + + | CPT-81266 | Initial Psych | | | | | Evaluation | | | + + + + + | CPT-28578 | [facility], 6 or | | | | | more [address] | | | + + + + [...] | + + + + + | CPT-24279 | Trim Skin Lesions | | | | | [address] | | | + + + + + | CPT-77580 | UA Dipstick | | | + + + + + | CPT-01145 | [facility], 6 or | | | | | more [address] | | | + + + + [...] | + + + + + | CPT-95553 | [facility], 6 or | | | | | more [address] | | | + + + + [...] | + + + + + | CPT-47016 | MRA Head-WWO Con | | | + + + + + +---+ + | | Order excluded from report: | +---+ + + + + + + | CPT-91665 | Physical Therapy | | | | | Evaluation | | | + + + + + | [id number] | [facility] Generic Patient | | | | | Encounter Service | | | | | (from patch) | | | + + + + + | [id number] | [Recorded for [facility]] | | | | | Documentation of | | | | | current medications | | | | | (procedure) | | | + + + + + | [id number] | [Recorded for [facility]] | | | | | Documentation of | | | | | current medications | | | | | (procedure) | | | + + + + + | [id number] | [Recorded for [facility]] | | | | | Documentation of | | | | | current medications | | | | | (procedure) | | | + + + + + | [id number] | [Recorded for [facility]] | | | | | Documentation of | | | | | current medications | | | | | (procedure) | | | + + + + + | FREE T4 63506 | T4 Free | | | + + + + + | T3 FREE 86535 | T3 Free | | | + + + + + | TSH 41370 | TSH | | | + + + + + | GLYCO HGB 70160 | HgbA1C | | | + + + + + | [id number] | [facility] Generic Patient | | | | | Encounter Service | | | | | (from patch) | | | + + + + + | [id number] | [Recorded for [facility]] | | | | | Documentation of | | | | | current medications | | | | | (procedure) | | | + + + + + | [id number] | [facility] Generic Patient | | | | | Encounter Service | | | | | (from patch) | | | + + + + + | CPT-91931 | EKG- tracing with | | | | | report (02280) | | | + + + + + | [id number] | [Recorded for [facility]] | | | | | Documentation of | | | | | current medications | | | | | (procedure) | | | + + + + + | [id number] | [facility] Generic Patient | | | | | Encounter Service | | | | | (from patch) | | | + + + + + | CPT-Troponin l | Troponin I | | | | 98528 | | | | + + + + + | [id number] | [Recorded for [facility]] | | | | | Documentation of | | | | | current medications | | | | | (procedure) | | | + + + + + | CPT-06106 | Physical Therapy | | | | | Evaluation | | | + + + + + | CPT-G8427 | Current Medications | | | | | Documented | | | + + + + + | [id number] | [Recorded for [facility]] | | | | | Documentation of | | | | | current medications | | | | | (procedure) | | | + + + + + | CPT-G8427 | Current Medications | | | | | Documented | | | + + + + + | [id number] | [Recorded for [facility]] | | | [...] + + + + | CHEM PROF 23400 | CMP (Comprehensive | | | | | Metabolic Panel) | | | + + + + + | GLYCO HGB 66565 | HgbA1C | | | + + + + + | CPT-Q2037 | Fluvirin | | | | | (Influenza) | | | | | Med/Atrio | | | + + + + + | RISK 27837 | Lipid Profile | | | + + + + + | VIT D HYDR 16514 | Vit D, 25 hydroxy | | | + + + + + | CYC CITRU 44445 | Cyclic | | | | | Citrullinated Pept | | | | | IgG | | | + + + + + | RA QUANT 70504 | Rheumatoid Factor | | | | | (quant) | | | + + + + + | TSH 00203 | TSH | | | + + + + + | IVANA 48947 | IVANA | | | + + + + + | GLYCO HGB 25618 | HgbA1C | | | + + + + + | CPT-53721 | EKG- tracing with | | | | | report (41297) | | | + + + + + | CPT-84650 | ANDRE | | | + + + + + | 22857 65198 | Holter Monitor 48H | | | | | Panel | | | + + + + + | 15786 49385 | Holter Monitor 72H | | | | | Panel | | | + + + + + | CPT-76362 | Barium Swallow MBS | | | | | with Speech | | | + + + + + | 04626 98477 | US Abdomen-Cmplt | | | | | and Pelvic-Lmtd | | | + + + + + | CPT-65490 | US Soft Tissue | | | | | Head/Neck Exam | | | + + + + + | CPT-26982 | Motor nerve testing | | | | | - each nerve | | | + + + + + | RISK 33979 | Lipid Profile | | | + + + + + | ESR 22550 | Sedimentation Rate | | | | | (ESR) | | | + + + + + | SPEP IF 21388 | SPEP with JESÚS if | | | | | indicated | | | + + + + + | B12+FOLATE MULTIPLE | B-12 - Folate | | | + + + + + | PFA 24563 | Platelet Function | | | | | Assay | | | + + + + + | 21805 | MRA Head-WO Con | | | + + + + + | 67998 | MR Head-WO Con | | | + + + + + | CPT-26173 | VL Carotid-Cerebral | | | | | Duplex | | | + + + + + | CPT-32936 | Holter Monitor | | | + + + + + | D DIMER 37962 | D-dimer (tyrese) | | | + + + + + | 35635 | CT Head-WWO Con | | | + + + + + | VIT D HYDR 27644 | Vit D, 25 hydroxy | | | + + + + + | TSH 82069 | TSH | | | + + + + + | B12+FOLATE MULTIPLE | B-12 - Folate | | | + + + + + | UA 61693 | Urinalysis | | | + + + + + | CHEM PROF 71654 | CMP (Comprehensive | | | | | Metabolic Panel) | | | + + + + + | CBC 03268 | CBC w/ Diff - w/ | | | | | platelets | | | + + + + + | GLYCO HGB 38810 | HgbA1C | | | + + + + + | TSH 09609 | TSH | | | + + + + + | VIT D HYDR 18096 | Vit D, 25 hydroxy | | [...] | 172.2 | [lb_av] | weight E&M - | [...] | 166.8 | [lb_av] | weight E&M - | [...] + | | O2 % BldC | 99 | % | oxygen | | | Oximetry | | | saturation, | | | | | | oximetry | + + +-------+---------+ + | | Weight Measured | 169.4 | [lb_av] | weight E&M - | [...] + | | O2 % BldC | 97 | % | oxygen | | | Oximetry | | | saturation, | | | | | | oximetry | + + +-------+---------+ + | | Weight Measured | 171.2 | [lb_av] | weight E&M - | [...] + | | O2 % BldC | 97 | % | oxygen | | | [...] | 182 | [lb_av] | weight E&M - | [...] | 182 | [lb_av] | weight E&M - | [...] | 182 | [lb_av] | weight E&M - | | | | | | 3141-9 | + + +-------+---------+ + | | BMI (Body Mass | 35.08 | kg/m2 | Body Mass Index | [...] +-------+---------+ + | | Weight Measured | 185 | [lb_av] | weight E&M - | | | | | | 3141-9 | + + +-------+---------+ + | | BMI (Body Mass | 34.89 | kg/m2 | Body Mass Index | [...] + | | O2 % BldC | 99 | % | oxygen | | | Oximetry | | | saturation, | | | | | | oximetry | + + +-------+---------+ + | | Weight Measured | 184 | [lb_av] | weight E&M - | | | | | | 3141-9 | + + +-------+---------+ + | | BMI (Body Mass | 34.89 | kg/m2 | Body Mass Index | [...] + | | O2 % BldC | 97 | % | oxygen | | | Oximetry | | | saturation, | | | | | | oximetry | + + +-------+---------+ + | | Weight Measured | 184 | [lb_av] | weight E&M - | | | | | | 3141-9 | + + +-------+---------+ + Social History [...]
--- OUTSIDE RECORDS SUMMARY | ~2019-03-25 | XMS | Continuity of Care Document ---
Demographics + + + | Address | [address] | | | [place] [address] | + + + | Home Phone | | + + + | Preferred Language | Unknown | + + + | Marital Status | Unknown | + + + | Jain Affiliation | Unknown | + + + | Race | Unknown | + + + | Ethnic Group | Unknown | + + + Author + + + | Author | [facility] | + + + | Organization | [facility] | + + + | Address | [address] | | | [place] [address] | + + + | Phone | | + + + Support + + + + + | Name | Relationship | Address | Phone | + + + + + | EVAN Pascual | Caregiver | [facility] | | | | | [place] [address] | | + + + + + | Franck Palacio MD | Caregiver | ER | | | | | [place] [address] | | + + + + + | DOLORES DIANA | Next Of Wilfred | [address] | | | | | [place] [address] | | + + + + + Care Team Providers + + + + | Care [employer]ed [employer] Name | Role | Phone | + + + + | EVAN Pascual | Talita | | + + + + Insurance Providers + + + + + | Payer Name | Policy Number | Subscriber Name | Relationship | + + + + + | [employer] | [id number] | JULI DIANA | SELF | | CLAIMS | | | | + + + + + | [employer] | [id number] | JULI DIANA | SELF | | [...] | + + + + + | Ivel, Disposable | | Unknown | Discontinued | [...] + + | Referrals | [facility] - | + + + | Additional [...] + + | Respiratory Rate | 18 7:05pm | 16 | + + + + | Pulse Rate | 18 7:05pm | 79 | + + + + | Bedside Pulse Oximetry | 18 7:05pm | 99 | + + + + | Height | 18 7:05pm | 5 ft 1 in | + + + + | Height | 12/28/17 7:05pm | 154.94 cm | + + + + | Weight | 12/28/17 7:05pm | 170 lb | + + + + | Weight | 12/28/17 7:05pm | 77.11 kg | + + + + | Body Mass Index | 12/28/17 7:05pm | 32.1 kg/m2 | + + [...] | 7:38pm | 7:48pm | | | Goodman | | | | | | | [...] | Neg | | | Neg | 0804/18 | 18 | | | Nitrite | | | [...] | Neg | | | Neg | 04/18 | 0804/18 | | | Ketones | | | [...] | 18 | 18 | | | Blood | | | | | 7:38pm | 7:48pm | | + +--------+ +-------+ + + + + | Urine | 0-2 | /hpf | | 0-5 | 18 | 18 | | | WBC | | | [...] 0 | % | | 0-6 | 18 | 12/28/17 | | | ils (%) [...] | | | | | | | [place] | | on Rate | | | | | | | GFR | | Calc | | | | | | | CalcFor | | | | | | | | | | | | | | | | | | [place] | | | | | | | [...] 31 | U/L | | 12-37 | 12/28/17 | 12/28/17 | | | e Amino [...] U/L | | 12-78 | 12/28/17 | 12/28/17 | | | Aminotra | | | [...] + | Departed | [facility] | 12/28/17 6:47pm | 12/28/17 | Franck Palacio | | Emergency | [facility] [place] | | 10:26pm | MD | + + + + + + + + + | Encounter Diagnosis | Onset Date | + + + | Hyperglycemia | | + + +"
--- OUTSIDE RECORDS SUMMARY | ~2019-03-25 | XMS | Clinical Summary ---
Demographics + + + | Address | [address] [place] [address] | | | [place] [address] | + + + | Home Phone | | + + + | Preferred Language | Unknown | + + + | Marital Status | D | + + + | Moravian Affiliation | Unknown | + + + | Race | White | + + + | Ethnic Group | or | + + + Author + + + | Author | [facility] | + + + | Organization | [facility] | + + + | Address | [address] | | | [place], [place] [address] | + + + | Phone | Unavailable | + + + Care Team Providers + +------+ + | Care Refund Specialist Name | Role | Phone | [...] tion | | +---------+---------+---------+---------+---------+---------+---------+---------+---------+ | OSTEOAR | [id number] | | Active | | Edna | | Osteoar | | | THRITIS | | | | /18 | Hope | | thritis | | | , KNEE, | (SNOMED | | | | [facility]MA | | of | | | RIGHT | CT) | | | | | | knee | | +---------+---------+---------+---------+---------+---------+---------+---------+---------+ | CONSTIP | [id number] | | Active | | Ambrose | | Constip | | | ATION | 8 | /13 | | /13 | Ankur | | ation | | | | (SNOMED | | | | DNP GRADUATE STUDENT INSTRUCTOR | | | | | | CT) | | | | | | | | +---------+---------+---------+---------+---------+---------+---------+---------+---------+ | TYPE 2 | E11.21 | | Active | | Ambrose | | Type 2 | | | DIABETE | (ICD-10 | /19 | | /19 | Ankur | | diabete | | | S | -CM) | | | | DNP GRADUATE STUDENT INSTRUCTOR | | s | | | MELLITU [...] athy | | +---------+---------+---------+---------+---------+---------+---------+---------+---------+ | DIABETE | [id number] | | Inactiv | | Ambrose | | Type 2 | | | S | 6 | / | e | /08 | Ankur | | diabete | | | MELLITU | (SNOMED | | | | DNP GRADUATE STUDENT INSTRUCTOR | | s | | | S, TYPE | CT) | | | | | | mellitu | | | II, ON | | | | | | | s | | | | | | | | | | | | | INSULIN | | | | | | | | | +---------+---------+---------+---------+---------+---------+---------+---------+---------+ | DEHYDRA | [id number] | | Resolve | | Ambrose | | Dehydra | | | TION | 6 | /08 | d | /08 | [place] | | tion | | | | (SNOMED | | | | DNP GRADUATE STUDENT INSTRUCTOR | | | | | | CT) | | | | | | | | +---------+---------+---------+---------+---------+---------+---------+---------+---------+ | DIZZINE | [id number] | | Inactiv | | Ambrose | | Dizzine | | | SS | 03 | /08 | e | /08 | [place] | | ss | | | | (SNOMED | | | | DNP GRADUATE STUDENT INSTRUCTOR | | | | | | CT) | | | | | | | | +---------+---------+---------+---------+---------+---------+---------+---------+---------+ | ANEMIA | [id number] | | Inactiv | | Ambrose | | Anemia | | | | 00 | /10 | e | /10 | [place] | | | | | | (SNOMED | | | | DNP GRADUATE STUDENT INSTRUCTOR | | | | | | CT) | | | | | | | | +---------+---------+---------+---------+---------+---------+---------+---------+---------+ | CONSTIP | [id number] | | Inactiv | | Ambrose | | Constip | | | ATION | 8 | /13 | e | /13 | [place] | | ation | | | | (SNOMED | | | | DNP GRADUATE STUDENT INSTRUCTOR | | | | | | CT) | | | | | | | | +---------+---------+---------+---------+---------+---------+---------+---------+---------+ | SYNCOPE | [id number] | | Resolve | | Ambrose | | Syncope | | | | 07 | / | d | /10 | [place] | | | | | | (SNOMED | | | | DNP GRADUATE STUDENT INSTRUCTOR | | | | | | CT) | | | | | | | | +---------+---------+---------+---------+---------+---------+---------+---------+---------+ | DYSPHAG | R13.10 | | Resolve | | Ambrose | | Dysphag | | | IA | (ICD-10 | | d | / | [place]ur | | ia, | | | UNSPECI | -CM) | | | | DNP GRADUATE STUDENT INSTRUCTOR | | unspeci | | | FIED | | | | | | | fied | | +---------+---------+---------+---------+---------+---------+---------+---------+---------+ | PARESTH | [id number] | | Inactiv | | Ambrose | | Paresth | | | ESIA, | 04 | | e | | [place] | | esia of | | | HANDS | (SNOMED | | | | DNP GRADUATE STUDENT INSTRUCTOR | | hand | | | | CT) | | | | | | | | +---------+---------+---------+---------+---------+---------+---------+---------+---------+ | DIABETI | [id number] | | Inactiv | | Ambrose | | Diabeti | | | C | 06 | /25 | e | / | [place] | | c | | | PERIPHE | (SNOMED | | | | DNP GRADUATE STUDENT INSTRUCTOR | | periphe | | | RAL [...] | -CM) | | | | DNP GRADUATE STUDENT INSTRUCTOR | | unspeci | | | FIED | | | | | | | fied | | +---------+---------+---------+---------+---------+---------+---------+---------+---------+ | VAGINIT | [id number] | | Resolve | | Ambrose | | Vaginit | | | IS | 1 | /31 | d | /31 | [place] | | is | | | | (SNOMED | | | | DNP GRADUATE STUDENT INSTRUCTOR | | | | | | CT) | | | | | | | | +---------+---------+---------+---------+---------+---------+---------+---------+---------+ | DYSURIA | [id number] | | Resolve | | Ambrose | | Dysuria | | | | 1 | / | d | | Ank[place] | | | | | | (SNOMED | | | | DNP GRADUATE STUDENT INSTRUCTOR | | | | | | CT) | | | | | | | | +---------+---------+---------+---------+---------+---------+---------+---------+---------+ | EDEMA | [id number] | | Inactiv | | Ambrose | | Edema | | | | 08 | / | e | | [place] | | | | | | (SNOMED | | | | DNP GRADUATE STUDENT INSTRUCTOR | | | | | | CT) | | | | | | | | +---------+---------+---------+---------+---------+---------+---------+---------+---------+ | RENAL | [id number] | | Inactiv | | Ambrose | | Acute | | | FAILURE | 1 | / | e | / | Ankur | | renal | | | , ACUTE | (SNOMED | | | | DNP GRADUATE STUDENT INSTRUCTOR | | failure | | | | CT) | | | | | | | | | | | | | | | | syndrom | | | | | | | | | | e | | +---------+---------+---------+---------+---------+---------+---------+---------+---------+ | DIABETE | [id number] | | Inactiv | | Ambrose | | Periphe | | | S | 02 | | e | | Ankur | | ral | | | MELLITU | (SNOMED | | | | DNP GRADUATE STUDENT INSTRUCTOR | | circula | | | S, [...] | -CM) | | | | DNP GRADUATE STUDENT INSTRUCTOR | | s | | | DIABETI [...] ropathy | | +---------+---------+---------+---------+---------+---------+---------+---------+---------+ | LOCALIZ | [id number] | | Resolve | | Ambrose | | Disorde | | | ED | 09 | | d | | [place] | | r of | | | SWELLIN | (SNOMED | | | | DNP GRADUATE STUDENT INSTRUCTOR | | forearm | | | G [...] | | | +---------+---------+---------+---------+---------+---------+---------+---------+---------+ | UTI | [id number] | | Resolve | | Ambrose | | Urinary | | | | 5 | /13 | d | /13 | [place] | | tract | | | | (SNOMED | | | | DNP GRADUATE STUDENT INSTRUCTOR | | infecti | | | | [...] | -CM) | | | | DNP GRADUATE STUDENT INSTRUCTOR | | s | | | MELLITU [...] athy | | +---------+---------+---------+---------+---------+---------+---------+---------+---------+ | DEMENTI | [id number] | | Inactiv | | Ambrose | | Procedu | | | A | | | e | | [place] | | re | | | SCREENI | (SNOMED | | | | DNP GRADUATE STUDENT INSTRUCTOR | | carried | | | NG | CT) | | | | | | out on | | | | | | | | | | | | | | | | | | | | subject | | +---------+---------+---------+---------+---------+---------+---------+---------+---------+ | CHANGE | [id number] | | Inactiv | | Ambrose | | Altered | | | IN | 9 | /13 | e | /13 | Ankur | | bowel | | | BOWEL | (SNOMED | | | | DNP GRADUATE STUDENT INSTRUCTOR | | functio | | | HABITS | CT) | | | | | | n | | +---------+---------+---------+---------+---------+---------+---------+---------+---------+ | MILD | [id number] | | Inactiv | | Ambrose | | Mild | | | COGNITI | | | e | / | Ankur | | cogniti | | | VE | (SNOMED | | | | DNP GRADUATE STUDENT INSTRUCTOR | | ve | | | IMPAIRM | CT) | | | | | | disorde | | | ENT | | | | | | | r | | +---------+---------+---------+---------+---------+---------+---------+---------+---------+ | DIABETE | [id number] | | Inactiv | | Ambrose | | Diabeti | | | S | 404084 | /11 | e | / | [place]ur | | c | | | MELLITU | (SNOMED | | | | DNP GRADUATE STUDENT INSTRUCTOR | | periphe | | | S, [...] fied | | +---------+---------+---------+---------+---------+---------+---------+---------+---------+ | DIABETE | [id number] | | Active | | David W | | Diabeti | | | S | 093325 | /15 | | /15 | Theen [...] s | | +---------+---------+---------+---------+---------+---------+---------+---------+---------+ | MUSCLE | 7938596 | | Active | | Christen | | Muscle | | | PAIN | 1 | | | /07 | J. | | pain | | | | (SNOMED | | | | [place] | | | | | | CT) | | | | ta GRADUATE STUDENT INSTRUCTOR | | | | +---------+---------+---------+---------+---------+---------+---------+---------+---------+ | DIABETE | [id number] | | Removed | | David W | | Diabeti | | | S | [id number] | /11 | | /12 | Theen [...] s | | +---------+---------+---------+---------+---------+---------+---------+---------+---------+ | MILD | 8639807 | | Removed | | Maulik | [...] uterus | | +---------+---------+---------+---------+---------+---------+---------+---------+---------+ | COLONIC | 3115324 | | Active | | Emeka | [...] | | | +---------+---------+---------+---------+---------+---------+---------+---------+---------+ | CONSTIP | [id number] | | Removed | | Emeka | | Constip | | | ATION | 8 | | | | Petre | | ation | | | | (SNOMED | | | | MD | | | | | | CT) | | | | | | | | +---------+---------+---------+---------+---------+---------+---------+---------+---------+ | CHANGE | [id number] | | Removed | | Emeka | | Altered | | | IN | 9 | /13 | | /13 | Petre | | bowel | | | BOWEL | (SNOMED | | | | MD | | functio | | | HABITS | CT) | | | | | | n | | +---------+---------+---------+---------+---------+---------+---------+---------+---------+ | DECREAS | [id number] | | Active | | Emeka | | Decreas | | | ED | 6 | | | /13 | Petre | | e in | | | APPETIT | (SNOMED | | | | MD | | appetit | | | E | CT) | | | | | | e | | +---------+---------+---------+---------+---------+---------+---------+---------+---------+ | WEIGHT | 5194142 | | Active | | Emeka | | Abnorma | | | LOSS | 01 | | | | Petre | | l | | | ABNORMA | (SNOMED | | | | MD | | weight | | | L | CT) | | | | | | loss | | +---------+---------+---------+---------+---------+---------+---------+---------+---------+ | NAUSEA | 8933865 | | Active | | Emeka | | Nausea | | | ALONE | | | | /13 | Petre | | | | | | (SNOMED | | | | MD | | | | | | CT) | | | | | | | | +---------+---------+---------+---------+---------+---------+---------+---------+---------+ | RECTAL | 8321869 | | Active | | Emeka | | Rectal | | | BLEEDIN | 2 | /13 | | /13 | Petre | | hemorrh | | | G | (SNOMED | | | | MD | | age | | | | CT) | | | | | | | | +---------+---------+---------+---------+---------+---------+---------+---------+---------+ | DEMENTI | 4451979 | | Active | | Christen | | Dementi | | | A | 6 | /10 | | /10 | J. | | a | | | WITHOUT | (SNOMED | | | | [place] | | | | | | CT) | | | | ta GRADUATE STUDENT INSTRUCTOR | | | | | BEHAVIO | | | | | | | | | | RAL | | | | | | | | | | DISTURB | | | | | | | | | | ANCE | | | | | | | | | +---------+---------+---------+---------+---------+---------+---------+---------+---------+ | CHRONIC | 7733809 | | Active | | Christen | | Chronic | | | | 03 | /10 | | /10 | J. | | | | | PROGRES | (SNOMED | | | | [place] | | progres | | | SIVE | CT) | | | | ta GRADUATE STUDENT INSTRUCTOR | | sive | | | RENAL | | | | | | | renal | | | FAILURE | | | | | | | failure | | +---------+---------+---------+---------+---------+---------+---------+---------+---------+ | ANEMIA | 2456772 | | Removed | | Christen | | Anemia | | | | 00 | /10 | | /10 | J. | | | | | | (SNOMED | | | | [place] | | | | | | CT) | | | | ta GRADUATE STUDENT INSTRUCTOR | | | | +---------+---------+---------+---------+---------+---------+---------+---------+---------+ | DEMENTI | 3120100 | | Removed | | Christen | | Procedu | | | A | | / | | | J. | | re | | | SCREENI | (SNOMED | | | | [place] | | carried | | | NG | CT) | | | | ta GRADUATE STUDENT INSTRUCTOR | | out on | | | | | | | | | | | | | | | | | | | | subject | | +---------+---------+---------+---------+---------+---------+---------+---------+---------+ | FALL | 7274962 | | Active | | Christen | | At risk | | | RISK | | | | | J. | | for | | | | (SNOMED | | | | [place] | | falls | | | | CT) | | | | ta GRADUATE STUDENT INSTRUCTOR | | | | +---------+---------+---------+---------+---------+---------+---------+---------+---------+ | DIABETE | 5077387 | | Resolve | | Christen | | Diabeti | | | S | 683691 | /14 | d | / | J. | | c | | | MELLITU | (SNOMED | | | | [place] | | periphe | | | S, TYPE | CT) | | | | ta GRADUATE STUDENT INSTRUCTOR | | ral | | | II [...] s | | +---------+---------+---------+---------+---------+---------+---------+---------+---------+ | CORNS | 4972055 | | Inactiv | | Kali | | Corns | | | AND | 00 | | e | | Palacio | | and | | | CALLOSI | (SNOMED | | | | DPM | | callus | | | TIES | CT) | | | | | | | | +---------+---------+---------+---------+---------+---------+---------+---------+---------+ | HAMMER | 7554335 | | Active | | Kali | [...] | | | +---------+---------+---------+---------+---------+---------+---------+---------+---------+ | HALLUX | 5054811 | | Active | | Kali | [...] ropathy | | +---------+---------+---------+---------+---------+---------+---------+---------+---------+ | DIABETE | 0355591 | | Removed | | Kali | [...] s | | +---------+---------+---------+---------+---------+---------+---------+---------+---------+ | ONYCHOM | 0479060 | | Active | | Kali | | Onychom | | | YCOSIS | | | | | Hakeem | | ycosis | | | | (SNOMED | | | | DPM | | | | | | CT) | | | | | | | | +---------+---------+---------+---------+---------+---------+---------+---------+---------+ | HEARTBU | 3797572 | | Active | | Tiesha | | Heartbu | | | RN | 0 | /19 | | /19 | | | rn | | | | (SNOMED | | | | [place] | | | | | | CT) | | | | MD | | | | +---------+---------+---------+---------+---------+---------+---------+---------+---------+ | TYPE 2 | 4561097 | | Active | | Tiesha | [...] athy | | +---------+---------+---------+---------+---------+---------+---------+---------+---------+ | UTI | 6981120 | | Removed | | Pako | | Urinary | | | | 5 | /13 | | /13 | Middlek | | tract | | | | (SNOMED | | | | auff | | infecti | | | | CT) | | | | GRADUATE STUDENT INSTRUCTOR | | ous | | | | | | | | | | disease | | +---------+---------+---------+---------+---------+---------+---------+---------+---------+ | LOCALIZ | 9387464 | | Removed | | [place]lena | [...] | | | +---------+---------+---------+---------+---------+---------+---------+---------+---------+ | LIPOMA | 7373660 | | Active | | Lauranc | | Lipoma | | | | 2 | /14 | | /14 | e W | | (clinic | | | | (SNOMED | | | | Lila | | al) | | | | CT) | | | | MD | | | | +---------+---------+---------+---------+---------+---------+---------+---------+---------+ | VITAMIN | 3955467 | | Active | | David Paez | | Vitamin | | | D | 6 | /14 | | /15 | Theen | | D | | | DEFICIE | (SNOMED | | | | MD FACE | | deficie | | | NCY | CT) | | | | FACP | | ncy | | +---------+---------+---------+---------+---------+---------+---------+---------+---------+ | OBESITY | 1273988 | | Active | | David Paez | | Obesity | | | , BMI | 01 | /14 | | /15 | Theen | | | | | 35-39.9 | (SNOMED | | | | MD FACE | | | | | , ADULT | CT) | | | | FACP | | | | +---------+---------+---------+---------+---------+---------+---------+---------+---------+ | DIABETE | 3521676 | | Removed | | David W | | Diabeti | | | S | 993788 | /14 | | /15 | Theen [...] s | | +---------+---------+---------+---------+---------+---------+---------+---------+---------+ | HALLUX | 4239015 | | Inactiv | | Kali | [...] | | | +---------+---------+---------+---------+---------+---------+---------+---------+---------+ | HAMMER | 6583666 | | Inactiv | | Kali | [...] | | | +---------+---------+---------+---------+---------+---------+---------+---------+---------+ | ONYCHOM | 7898055 | | Inactiv | | Kali | [...] ropathy | | +---------+---------+---------+---------+---------+---------+---------+---------+---------+ | DIABETE | 6604142 | | Inactiv | | Kali | [...] s | | +---------+---------+---------+---------+---------+---------+---------+---------+---------+ | SCREENI | 3739829 | | Resolve | 2015/12 | Lauranc | | Depress | | | NG FOR | 06 | /10 | d | /10 | e W | | ion | | | DEPRESS | (SNOMED | | | | Lila | | screeni | | | ION | CT) | | | | MD | | ng | | +---------+---------+---------+---------+---------+---------+---------+---------+---------+ | SCREENI | 8519709 | | Resolve | | Lauranc | [...] | | | +---------+---------+---------+---------+---------+---------+---------+---------+---------+ | SCREENI | 3869838 | | Resolve | | Lauranc | [...] ng | | +---------+---------+---------+---------+---------+---------+---------+---------+---------+ | SCREENI | 8149664 | | Removed | | Geetha | | Alcohol | | | NG FOR | 01 | /10 | | /10 | [place] | | | | | ALCOHOL | (SNOMED | | | | [facility] | | consump | | | ISM | CT) | | | | | | tion | | | | | | | | | | screeni | | | | | | | | | | ng | | +---------+---------+---------+---------+---------+---------+---------+---------+---------+ | SCREENI | 5560085 | | Removed | | Geetha | [...] | | | +---------+---------+---------+---------+---------+---------+---------+---------+---------+ | SCREENI | 7832453 | | Removed | | Geetha | | Depress | | | NG FOR | 06 | /10 | | /10 | [place] | | ion | | | DEPRESS | (SNOMED | | | | [facility] | | screeni | | | ION | CT) | | | | | | ng | | +---------+---------+---------+---------+---------+---------+---------+---------+---------+ | RENAL | 1650191 | | Removed | | Lauranc | [...] e | | +---------+---------+---------+---------+---------+---------+---------+---------+---------+ | EDEMA | 2443704 | | Removed | | Lauranc | | Edema | | | | 08 | /15 | | / | e W | | | | | | (SNOMED | | | | Lila | | | | | | CT) | | | | MD | | | | +---------+---------+---------+---------+---------+---------+---------+---------+---------+ | RENAL | 2219991 | | Active | | Luz | [...] e | | +---------+---------+---------+---------+---------+---------+---------+---------+---------+ | PERIPHE | 3211067 | | Active | | Lauranc | [...] disease | | +---------+---------+---------+---------+---------+---------+---------+---------+---------+ | CANDIDI | 4747913 | | Active | | Susanna | | Candidi | | | ASIS, | | | | | Medel | | asis of | | | SKIN | (SNOMED | | | | MD | | skin | | | | CT) | | | | | | | | +---------+---------+---------+---------+---------+---------+---------+---------+---------+ | DYSURIA | 4816666 | | Removed | | Erica | | Dysuria | | | | 1 | /31 | | /31 | Paul | | | | | | (SNOMED | | | | MA | | | | | | CT) | | | | | | | | +---------+---------+---------+---------+---------+---------+---------+---------+---------+ | VAGINIT | 3119530 | | Removed | | Erica | | Vaginit | | | IS | 1 | /31 | | /31 | Paul | | is | | | | (SNOMED | | | | MA | | | | | | CT) | | | | | | | | +---------+---------+---------+---------+---------+---------+---------+---------+---------+ | RLQ | 7831859 | | Resolve | | Lauranc | | Right | | | PAIN | 02 | | d | /11 | e W | | lower | | | | (SNOMED | | | | Lila | | quadran | | | | CT) | | | | MD | | t pain | | +---------+---------+---------+---------+---------+---------+---------+---------+---------+ | ABDOMIN | 1505853 | | Resolve | | Lauranc | [...] | | | +---------+---------+---------+---------+---------+---------+---------+---------+---------+ | KNEE | 7655334 | | Active | | Lauranc | | Knee | | | PAIN | 3 | /14 | | /14 | e W | | pain | | | | (SNOMED | | | | Lila | | | | | | CT) | | | | MD | | | | +---------+---------+---------+---------+---------+---------+---------+---------+---------+ | Questio | 3725636 | | Correct | | Lauranc | [...] e | | +---------+---------+---------+---------+---------+---------+---------+---------+---------+ | VERTIGO | 9019516 | | Active | | Luz | | Vertigo | | | | | / | | /03 | Asad | | | | | | (SNOMED | | | | RN | | | | | | CT) | | | | | | | | +---------+---------+---------+---------+---------+---------+---------+---------+---------+ | CHEST | 8556933 | | Inactiv | | Genny | | Chest | | | PAIN | 9 | | e | /02 | [place] | | pain | | | | (SNOMED | | | | | | | | | | CT) | | | | | | | | +---------+---------+---------+---------+---------+---------+---------+---------+---------+ | CHEST | 6799148 | | Inactiv | | Lauranc | [...] fied | | +---------+---------+---------+---------+---------+---------+---------+---------+---------+ | CEREBRO | 1531962 | | Active | | Rogers | | 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 | (SNOMED | | | | MD | | r | | | DISEASE | CT) | | | | | | disease | | +---------+---------+---------+---------+---------+---------+---------+---------+---------+ | History | 3539981 | | Active | | Rogers | [...] | | | +---------+---------+---------+---------+---------+---------+---------+---------+---------+ | DIABETI | 3243358 | | Removed | | Rogres | | Diabeti | | | C [...] thy | | +---------+---------+---------+---------+---------+---------+---------+---------+---------+ | HYPERLI | 1472235 | | Active | | Rogers | | Hyperli | | | PIDEMIA | | | | | Laith | | pidemia | | | | (SNOMED | | | | MD | | | | | | CT) | | | | | | | | +---------+---------+---------+---------+---------+---------+---------+---------+---------+ | History | 8288455 | | Active | | Rogers | [...] e | | +---------+---------+---------+---------+---------+---------+---------+---------+---------+ | CEREBRA | 9154877 | | Correct | | Rogers | [...] s | | +---------+---------+---------+---------+---------+---------+---------+---------+---------+ | ABDOMIN | 7592490 | | Removed | | Patricia | [...] | | | +---------+---------+---------+---------+---------+---------+---------+---------+---------+ | RLQ | 6420942 | | Removed | | Patricia | [...] fied | | +---------+---------+---------+---------+---------+---------+---------+---------+---------+ | CARPAL | 5307486 | | Active | | Rogers | | Carpal | | | TUNNEL | 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 | | | | MD | | 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, LEFT | CT) | | | | | | e | | +---------+---------+---------+---------+---------+---------+---------+---------+---------+ | Questio | 2634533 | | Removed | | Rogers | [...] | | | +---------+---------+---------+---------+---------+---------+---------+---------+---------+ | GAIT | 2098320 | | Active | | Rogers | | Abnorma | | | IMBALAN | 2 | / | | / | Laith | | l gait | | | CE | (SNOMED | | | | MD | | | | | | CT) | | | | | | | | +---------+---------+---------+---------+---------+---------+---------+---------+---------+ | BRAIN | 3195354 | | Correct | | Rogers | [...] e | | +---------+---------+---------+---------+---------+---------+---------+---------+---------+ | PARESTH | 8756597 | | Removed | | Rogers | | Paresth | | | ESIA, | 04 | | | / | Laith | | esia of | | | HANDS | (SNOMED | | | | MD | | hand | | | | CT) | | | | | | | | +---------+---------+---------+---------+---------+---------+---------+---------+---------+ | PERIPHE | 6473891 | | Correct | | Rogers | | Periphe | | | RAL | | | ion | /25 | Laith | | ral | | | NEUROPA | (SNOMED | | | | MD | | nerve | | | THY | CT) | | | | | | disease | | +---------+---------+---------+---------+---------+---------+---------+---------+---------+ | THYROID | 2291256 | | Active | | Luz | | Thyroid | | | NODULE | 05 | /20 | | /20 | [place] | | nodule | | | | (SNOMED | | | | [facility] | | | | | | CT) | | | | | | | | +---------+---------+---------+---------+---------+---------+---------+---------+---------+ | TIA | 7765787 | | Active | | Lauranc | [...] a | | +---------+---------+---------+---------+---------+---------+---------+---------+---------+ | SYNCOPE | 2242234 | | Removed | | Lauranc | | Syncope | | | | 07 | /07 | | /10 | e W | | | | | | (SNOMED | | | | Lila | | | | | | CT) | | | | MD | | | | +---------+---------+---------+---------+---------+---------+---------+---------+---------+ | GASTROP | 2687582 | | Active | | Lauranc | | 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 | | | | (SNOMED | | | | Lila | | syndrom | | | | CT) | | | | MD | | e | | +---------+---------+---------+---------+---------+---------+---------+---------+---------+ | CONSTIP | 5535630 | | Active | | Lauranc | | Chronic | | | ATION, | 09 | /08 | | /08 | e W | | | | | CHRONIC | (SNOMED | | | | Lila | | constip | | | | CT) | | | | MD | | ation | | +---------+---------+---------+---------+---------+---------+---------+---------+---------+ | POSTHER | 4388147 | | Active | | Lauranc | | Posther | | | 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 | (SNOMED | | | | Lila | | neuralg | | | [place] | CT) | | | | MD | | ia | | +---------+---------+---------+---------+---------+---------+---------+---------+---------+ | DIZZINE | [id number] | | Removed | | Lauranc | | Dizzine | | | SS | 03 | /08 | | /08 | e W | | ss | | | | (SNOMED | | | | Lila | | | | | | CT) | | | | MD | | | | +---------+---------+---------+---------+---------+---------+---------+---------+---------+ | DEHYDRA | [id number] | | Removed | | Lauranc | | Dehydra | | | TION | 6 | /08 | | /08 | e W | | tion | | | | (SNOMED | | | | Illa | | | | | | CT) | | | | MD | | | | +---------+---------+---------+---------+---------+---------+---------+---------+---------+ | DIABETE | [id number] | | Removed | | Lauranc | [...] | | | +---------+---------+---------+---------+---------+---------+---------+---------+---------+ | HYPERTE | [id number] | | Active | | Lauranc | [...] 25 units | | | INSULIN | [id number] | Jesus | | UNIT/ML | two [...] two times | | | MECLIZINE | 1383070667 | Laurance W | | HCL 25 MG | per day | | | HCL | 0 | Lila MD | | TABS | | | | | | | + + + + + + + + | MECLIZINE | One tab by | | | MECLIZINE | 9529767335 | Laurance W | | HCL 25 [...] 1 tab | | | PREGABALIN | 9122822847 | Ambrose | | MG CAPS | three | | | | 8 | Ankur DNP | | | times per | | | | | GRADUATE STUDENT INSTRUCTOR | | | day. Pt | | | | | | | | states as | | | | | | | | needed | | | | | | + + + + + + + + | PROMETHAZI | Take one | | | PROMETHAZI | 3883737556 | Edna | | NE HCL 25 [...] 3U before | | | INSULIN | 4518935080 | Scarlett | | 100 | lunch [...] POTASSIUM | | | | POTASSIUM | [id number] | Kali | | CHLORIDE | | | | CHLORIDE | 1 | Palacio DPM | | ER 10 MEQ | | | | | | | | CR-CAPS | | | | | | | + + + + + + + + | DULOXETINE | 1 tab one | | | DULOXETINE | 8864209469 | Bailey W | | HCL 30 MG | time per | | | HCL | 6 | Lila MD | | CPEP | day | | | | | | + + + + + + + + | PROCHLORPE | Insert one | | | PROCHLORPE | 7363749415 | Edna | | RAZINE 25 | [...] Use daily | | | INSULIN | 7472654609 | Ambrose | | NEEDLE | to inject | | | PEN NEEDLE | 0 | Ankur DNP | | ULTRAFINE | insulin | | | | | GRADUATE STUDENT INSTRUCTOR | | 29G X | | | | | | | | 12.7MM | | | | | | | + + + + + + + + | DRAMAMINE | take 1-2 | | | TAYLER | 3806387980 | Christen Ramirez | | 50 MG TABS | tabs 4 | | | MARCELA | 2 | Raumakita | | | times per | | | | | GRADUATE STUDENT INSTRUCTOR | | | day as | | | | | | | | needed | | | | | | + + + + + + + + | VICTOZA 18 | | | | LIRAGLUTID | [id number] | Jesus | | MG/3ML | | [...] | | | | * | | GRADUATE STUDENT INSTRUCTOR | + + + + + + + + | BASAGLAR | 1 pen | | | INSULIN | [id number] | Christen Ramirez | | KWIKPEN | every 3 | | | GLARGINE | 9 | Raumakita | | 100 | days 56 | | | | | GRADUATE STUDENT INSTRUCTOR | | UNIT/ML | units q | [...] by mouth | | | MECLIZINE | 6524924304 | Laurance W | | HCL 25 [...] mix and | | | NA | 7288514485 | Maulik | | BOWEL PREP | [...] take 2 | | | GABAPENTIN | 5893862367 | Bailey W | | 300 MG [...] Inject 0.6 | | | LIRAGLUTID | 7134579715 | Christen Ramirez | | MG/3ML | mg daily | | | E | 2 | Raumakita | | SOPN | | | | | | GRADUATE STUDENT INSTRUCTOR | + + + + + + + + | ONDANSETRO | 1 tab | | | ONDANSETRO | 5588701184 | Kali | | N HCL 4 MG | every 4 | | | N HCL | 3 | Palacio DPM | | TABS | hours | | | | | | + + + + + + + + | VICTOZA 18 | | | | LIRAGLUTID | 9303286749 | Bailey W | | MG/3ML | | | | E | 2 | Lila MD | | SOPN | | | | | | | + + + + + + + + | DIABETE | | | | DIABETE | | Bailey W | | S | | | | S | | Lial MD | + + + + + + + + | NEURONTIN | take 1 tab | | | GABAPENTIN | 7192560334 | Jesus | | 300 MG | po tid . | | | | 4 | Ethan MD | | CAPS | Pt states | | | | | | | | as needed | | | | | | + + + + + + + + | COLACE 100 | 1 tab by | | | DOCUSATE | 9842290002 | Kali | | MG CAPS | mouth | | | SODIUM | 0 | Palacio DPM | | | daily at | | | | | | | | bedtime | | | | | | + + + + + + + + | CLONAZEPAM | Take one | | | CLONAZEPAM | 7425422916 | Edna | | 0.5 MG | [...] | | | | | | | GRADUATE STUDENT INSTRUCTOR | + + + + + + + + | ASPIRIN | take 1 | | | ASPIRIN | 7381575923 | Rogers | | 325 MG | [...] per | | | FOOT CARE | [id number] | Ambrose | | INSOLES | custom | | | PRODUCTS | 1 | Ankur DNP | | | fit from | | | | | GRADUATE STUDENT INSTRUCTOR | | | podiatry | | | | | | | | Dx. | | | | | | | | E11.65, | | | | | | | | e11.21 | | | | | | + + + + + + + + | LYRICA 50 | 1 tab | | | PREGABALIN | 1381610879 | Bailey W | | MG CAPS | three | | | | 8 | Lila MD | | | times per | | | | | | | | day | | | | | | + + + + + + + + | GLUCOPHAGE | 1 tab one | | | METFORMIN | 2930975690 | Bailey W | | XR 500 MG | time per | | | HCL | 3 | Lila MD | | QA96Y-MDL | day | | | | | | + + + + + + + + | HUMALOG | BS <150 - | | | INSULIN | 3290094261 | Christen Ramirez | | 100 | No insulin | | | LISPRO | 1 | Raumakita | | UNIT/ML | BS | | | (HUMAN) | | GRADUATE STUDENT INSTRUCTOR | | SOLN | 150-200 | | [...] Use 5 | | | INSULIN | 2432229318 | Ambrose | | SYRINGE | times | | | SYRINGE-NE | 1 | Ankur DNP | | ULTRAFINE | daily to | | | EDLE U-100 | | GRADUATE STUDENT INSTRUCTOR | | 29G X 1/2" | inject [...] 50 units | | | INSULIN | 8873125694 | Pako | | UNIT/ML | once per | | | GLARGINE | 3 | Shirauf | | SOLN | mikaela. Pt | | | | | f GRADUATE STUDENT INSTRUCTOR | | | states she | | [...] | | | | | | | GRADUATE STUDENT INSTRUCTOR | + + + + + + + + | NITROFURAN | Take one | | | NITROFURAN | 5863900389 | Dena | | TOIN | capsule | | [...] Use daily | | | GLUCOSE | 9648869530 | Ambrose | | BLOOD | to check | | | BLOOD | 4 | Ankur DNP | | GLUCOSE | blood | | | | | GRADUATE STUDENT INSTRUCTOR | | TEST STRP | sugar | | | | | | + + + + + + + + | ERGOCALCIF | One | | | ERGOCALCIF | 9472674195 | Mariano | | QUANG 21559 | capsule by | | | QUANG [...] take 2 | | | GABAPENTIN | 2874352336 | Mariano | | 300 MG | [...] 10ml QAM | | | METFORMIN | 1171529244 | Mariano | | MG/5ML | Liquid due | | | HCL | 1 | Ariella | | SOLN | to | | | | | CCMA | | | Dysphagia | | | | | | + + + + + + + + | ASPIRIN EC | take 1 | | | ASPIRIN | 3179057569 | Rogers | | 325 MG | tablet | | | | 1 | Laith MD | | TBEC | daily | | | | | | + + + + + + + + | RELION | Use to | | | GLUCOSE | 3708889039 | Kali | | BLOOD | test BG | | | BLOOD | 4 | Palacio DPM | | GLUCOSE | one time | | | | | | | TEST STRP | per day | | | | | | + + + + + + + + | NITROFURAN | | | | NITROFURAN | 8237338685 | Edna | | TOIN | | [...] one tablet | | | DOCUSATE | 0591161033 | Laurance W | | MG CAPS | by mouth | | | SODIUM | 0 | Lila MD | | | at bedtime | | | | | | + + + + + + + + | BACTRIM DS | 1 by mouth | | | TRIMETHOPR | 0765120682 | Bailey W | | 800-160 | twice a | | | IM-SULFAME | 1 | Lila MD | | MG TABS | day for 3 | | | THOXAZOLE | | | | | days | | | | | | + + + + + + + + | RELION PEN | | | | INSULIN | 1033089039 | Ambrose | | NEEDLES | | | | PEN NEEDLE | 4 | Ankur DNP | | 31G X 8 MM | | | | | | GRADUATE STUDENT INSTRUCTOR | + + + + + + + + | VICTOZA 18 | .6 mg x 1 | | | LIRAGLUTID | 1615233906 | Ambrose | | MG/3ML | week then | | | E | 2 | Ankur DNP | | SOPN | 1.2 mg | | | | | GRADUATE STUDENT INSTRUCTOR | | | daily per | | | | | | | | week | | | | | | + + + + + + + + | ASPIRIN 81 | one time | | | ASPIRIN | 1333611670 | Mariano | | MG TABS | [...] | | | | | | | GRADUATE STUDENT INSTRUCTOR | + + + + + + + + | DIABETIC | 1 pair per | | | DIABETIC | | Ambrose | | ORTHOTIC | custom | | | ORTHOTIC | | Ankur DNP | | SHOES | fit from | | | SHOES | | GRADUATE STUDENT INSTRUCTOR | | | podiatry | | | | | | | | E11.65, | | | | | | | | e11.21 | | | | | | + + + + + + + + | GABAPENTIN | two times | | | GABAPENTIN | 0256765859 | Mariano | | 100 MG | per day | | | | 1 | Ariella | | CAPS | | | | | | CCMA | + + + + + + + + | MISC | | | | MISC | | Ambrose | | | | | | | | Ankur DNP | | | | | | | | GRADUATE STUDENT INSTRUCTOR | + + + + + + + + | BIOTIN 1 | | | | BIOTIN | 5402357412 | Kali | | MG CAPS | | | | | 2 | Palacio DPM | + + + + + + + + | PIOGLITAZO | Take 1 tab | | | PIOGLITAZO | 6462516062 | Jesus | | NE HCL 15 [...] two times | | | MECLIZINE | 6477917889 | Mariano | | HCL 25 MG [...] take 1 | | | ASPIRIN | 1528827605 | Mariano | | 325 MG | tablet | | | | 1 | Ariella | | TBEC | daily | | | | | CCMA | + + + + + + + + | PIOGLITAZO | Take 1 tab | | | PIOGLITAZO | 5634174990 | Christen James | | NE HCL 15 | by mouth | | | NE HCL | 6 | Raumakita | | MG TABS | one time | | | | | GRADUATE STUDENT INSTRUCTOR | | | per day in | | | | | | | | the AM | | | | | | + + + + + + + + | NEURONTIN | take 1 tab | | | GABAPENTIN | 6198741634 | Bailey W | | 300 MG | po tid | | | | 4 | Lila MD | | CAPS | | | | | | | + + + + + + + + | DIOVAN 160 | one time | | | VALSARTAN | 2257304252 | Mariano | | MG TABS | per day | | | | 4 | Ariella | | | | | | | | CCMA | + + + + + + + + | ASPIRIN | take 1 | | | ASPIRIN | 5011883870 | Bailey W | | 325 MG [...] 1 pill | | | CEPHALEXIN | 6354665819 | Tiesha | | MG CAPS | twice a | | | | 1 | Maria Isabel MD | | | day for 7 | | | | | | | | days | | | | | | + + + + + + + + | GABAPENTIN | one tablet | | | GABAPENTIN | 6074484215 | aBiley W | | 100 MG | by [...] 1 tab | | | MECLIZINE | 8204230376 | Laurance W | | HCL 25 MG | three | | | HCL | 0 | Lila MD | | TABS | times per | | | | | | | | day | | | | | | + + + + + + + + | NITROFURAN | Take one | | | NITROFURAN | 3946936056 | Edna | | TOIN | capsule [...] 0.02 ml | | | EXENATIDE | 5511024628 | Bailey W | | MCG PEN 5 | injection | | | | 1 | Lila MD | | MCG/0.02ML | two times | | | | | | | SOPN | per day | | | | | | + + + + + + + + | FLUCONAZOL | take one | | | FLUCONAZOL | 3588525687 | Bailey W | | E 150 MG | tablet PO | | | E | 1 | Lila MD | | TABS | x 1 repeat | | | | | | | | in 3 days | | | | | | + + + + + + + + | PROCHLORPE | Insert one | | | PROCHLORPE | 4107769125 | Ambrose | | RAZINE 25 | | | | RAZINE | 0 | Ankur DNP | | MG SUPP | suppositor | | | | | GRADUATE STUDENT INSTRUCTOR | | | y rectally | | [...] tab two | | | CILOSTAZOL | 3511599329 | Kali | | 100 MG | times per | | | | 1 | Hakeem DPM | | TABS | day | | | | | | + + + + + + + + | RIOMET 500 | 10ml's two | | | METFORMIN | 0282277643 | Bailey W | | MG/5ML | times per | | | HCL | 1 | Lila MD | | ANGYN | mikaela. | | | | | | | | Liquid | | | | | | | | form due | | | | | | | | to | | | | | | | | dysphagia | | | | | | + + + + + + + + | VITAMIN D | | | | CHOLECALCI | 4690729879 | Kali | | 1000 UNIT | | | | FEROL | 1 | Hakeem DPM | | TABS | | | | | | | + + + + + + + + | NEURONTIN | take 1 tab | | | GABAPENTIN | 4898928472 | Christen Ramirez | | 300 MG | po tid . | | | | 4 | Raumakita | | CAPS | Pt states | | | | | GRADUATE STUDENT INSTRUCTOR | | | as needed | | | | | | + + + + + + + + | BYMIHAELA 5 | Take as | | | EXENATIDE | 1598711904 | Christen Ramirez | | MCG PEN 5 | directed | | | | 1 | Raumakita | | MCG/0.02ML | once daily | | | | | GRADUATE STUDENT INSTRUCTOR | | SOPN | in the AM [...] two times | | | METFORMIN | 9152515374 | Mariano | | HCL 1000 | per day | | | HCL | 5 | Ariella | | MG TABS | | | | | | CCMA | + + + + + + + + | GABAPENTIN | Take 2 | | | GABAPENTIN | 5834005084 | Bailey W | | 300 MG [...] | | | | | | | GRADUATE STUDENT INSTRUCTOR | + + + + + + + + | LYRICA 50 | TAKE ONE | | | PREGABALIN | 2188861910 | Kesha | | MG CAPS | [...] 1 TAB | | | BUSPIRONE | 8130664910 | Kali | | HCL 7.5 MG | three | | | HCL | 1 | Palacio DPM | | TABS | times per | | | | | | | | day | | | | | | + + + + + + + + | BASAGLAR | 68 Units | | | INSULIN | 0602214241 | Ambrose | | KWIKPEN | every | | | GLARGINE | 9 | Ankur DNP | | 100 | morning | | | | | GRADUATE STUDENT INSTRUCTOR | | UNIT/ML | (34 units | | | | | | | SOPN | on each | | | | | | | | side) | | | | | | + + + + + + + + | NOVOLOG | 12 Units | | | INSULIN | 4828827678 | Ambrose | | 100 | before | | | ASPART | 1 | Ankur DNP | | UNIT/ML | meals | | | | | GRADUATE STUDENT INSTRUCTOR | | SOLN | SS:150-175 | | [...] 65 Units | | | INSULIN | 2239857593 | Ambrose | | KWIKPEN | every | | | GLARGINE | 9 | Ankur DNP | | 100 | morning | | | | | GRADUATE STUDENT INSTRUCTOR | | UNIT/ML | | | | | | | | SOPN | | | | | | | + + + + + + + + | BASAGLAR | 60 Units | | | INSULIN | 7299365072 | Ambrose | | KWIKPEN | every | | | GLARGINE | 9 | Ankur DNP | | 100 | morning | | | | | GRADUATE STUDENT INSTRUCTOR | | UNIT/ML | | | | | | | | SOPN | | | | | | | + + + + + + + + | MIRALAX | 17 gm | | | POLYETHYLE | 1398641390 | Ambrose | | POWD | daily | | | NE GLYCOL | 2 | Ankur DNP | | | stirred | | | 3350 | | GRADUATE STUDENT INSTRUCTOR | | | into 4-8 | | [...] 1 pill | | | DOCUSATE | 1757052291 | Ambrose | | MG CAPS | twice | | | SODIUM | 0 | Ankur DNP | | | daily for | | | | | GRADUATE STUDENT INSTRUCTOR | | | soft | | | | | | | | stools | | | | | | + + + + + + + + | LYRICA 100 | 1 capsule | | | PREGABALIN | 3873815993 | Ambrose | | MG CAPS | three | | | | 8 | Ankur DNP | | | times | | | | | GRADUATE STUDENT INSTRUCTOR | | | daily for | | | | | | | | neuropathy | | | | | | + + + + + + + + | LASIX 80 | 1 tab by | | | FUROSEMIDE | 1276323017 | Ambrose | | MG TABS | mouth one | | | | 5 | Ankur DNP | | | time per | | | | | GRADUATE STUDENT INSTRUCTOR | | | day in the | | | | | | | | AM | | | | | | + + + + + + + + | PANTOPRAZO | Take one | | | PANTOPRAZO | 8490539477 Thien Boggs | | LE SODIUM | tablet by | | | LE SODIUM | 8 | Ankur DNP | | 40 MG TBEC | mouth once | | | | | GRADUATE STUDENT INSTRUCTOR | | | daily | | | | | | + + + + + + + + | POTASSIUM | Take one | | | POTASSIUM | 7151820535 Thien Boggs | | CHLORIDE | cap daily | | | CHLORIDE | 1 | Ankur DNP | | ER 10 MEQ | in the AM | | | | | GRADUATE STUDENT INSTRUCTOR | | CR-CAPS | | | | | | | + + + + + + + + | BD PEN | Use daily | | | INSULIN | 9552073605 Thien Boggs | | NEEDLE | to inject | | | PEN NEEDLE | 0 | Ankur DNP | | ULTRAFINE | insulin | | | | | GRADUATE STUDENT INSTRUCTOR | | 29G X | | | | | | | | 12.7MM | | | | | | | + + + + + + + + | BD INSULIN | Use 5 | | | INSULIN | 3052312871 | Ambrose | | SYRINGE | times | | | SYRINGE-NE | 1 | Ankur DNP | | ULTRAFINE | daily to | | | EDLE U-100 | | GRADUATE STUDENT INSTRUCTOR | | 29G X 1/2" | inject [...] tab by | | | MECLIZINE | 3337654387 | Ambrose | | HCL 25 MG | mouth | | | HCL | 0 | Ankur DNP | | TABS | three | | | | | GRADUATE STUDENT INSTRUCTOR | | | times per | | | | | | | | day | | | | | | + + + + + + + + | PLAVIX 75 | 1 tab by | | | CLOPIDOGRE | 9378201568 | Ambrose | | MG TABS | mouth one | | | L | 1 | Ankur DNP | | | time per | | | BISULFATE | | GRADUATE STUDENT INSTRUCTOR | | | day in the | | | | | | | | evening | | | | | | + + + + + + + + | VALSARTAN | Take one | | | VALSARTAN | 2826689762 | Ambrose | | 160 MG | tablet | | | | 7 | Ankur DNP | | TABS | daily in | | | | | GRADUATE STUDENT INSTRUCTOR | | | the AM | | | | | | + + + + + + + + | LIPITOR 20 | take 1 | | | ATORVASTAT | 2560636734 | Ambrose | | MG TABS | tablet by | | | IN CALCIUM | 3 | Ankur DNP | | | mouth | | | | | GRADUATE STUDENT INSTRUCTOR | | | daily in | | | | | | | | the | | | | | | | | evening | | | | | | + + + + + + + + | GLIPIZIDE | Take 1 | | | GLIPIZIDE | 2162237718 | Ambrose | | XL 2.5 MG | tablet | | | | 1 | Ankur DNP | | QA00P-XIR | p.o. | | | | | GRADUATE STUDENT INSTRUCTOR | | | q.a.m. | | | | | | + + + + + + + + | OMEPRAZOLE | Take one | | | OMEPRAZOLE | 2489793813 | Ambrose | | 40 MG | by mouth | | | | 0 | Ankur DNP | | CPDR | one time | | | | | GRADUATE STUDENT INSTRUCTOR | | | per day | | [...] Take one | | | CHOLECALCI | 0352001341 | Ambrose | | 1000 UNIT | tablet | | | FEROL | 1 | Ankur DNP | | TABS | daily in | | | | | GRADUATE STUDENT INSTRUCTOR | | | the AM | | | | | | + + + + + + + + | COLACE 100 | 1 pill BID | | | DOCUSATE | 7650582717 | Ambrose | | MG CAPS | | | | SODIUM | 0 | Ankur DNP | | | | | | | | GRADUATE STUDENT INSTRUCTOR | + + + + + + + + | BIOTIN 1 | Take one | | | BIOTIN | 7562044006 | Ambrose | | MG CAPS | daily in | | | | 2 | Ankur DNP | | | the AM | | | | | GRADUATE STUDENT INSTRUCTOR | + + + + + + + + | NYSTATIN-T | Apply thin | | | NYSTATIN-T | 6784709376 | Ambrose | | RIAMCINOLO | layer to | | | RIAMCINOLO | 5 | Ankur DNP | | NE | affected | | | NE | | GRADUATE STUDENT INSTRUCTOR | | 982513-8.1 | area BID | | | | | | | UNIT/GM-% | prn for | | | | | | | CREA | itching | | | | | | + + + + + + + + | RELION PEN | | | | INSULIN | 1645044330 | David | | NEEDLES | | | | PEN NEEDLE | 4 | Mark DO | | 31G X 8 MM | | | | | | | + + + + + + + + | NOVOLOG | 3U before | | | INSULIN | 7592286934 | David | | 100 | lunch [...] 56 Units | | | INSULIN | 6959387746 | David | | KWIKPEN | every [...] 1 tab | | | PREGABALIN | 4428333945 | Christen J. | | MG CAPS | three | | | | 8 | Raumakita | | | times per | | | | | GRADUATE STUDENT INSTRUCTOR | | | day. Pt | | | | | | | | states as | | | | | | | | needed | | | | | | + + + + + + + + | LYRICA 100 | 1 tid | | | PREGABALIN | 0395091465 | Christen Escduero. | | MG CAPS | | | | | 8 | Raumakita | | | | | | | | GRADUATE STUDENT INSTRUCTOR | + + + + + + + + | VICTOZA 18 | .6 mg x 1 | | | LIRAGLUTID | 5550857234 | Christen Ramirez | | MG/3ML | week then | | | E | 2 | Raumakita | | SOPN | 1.2 mg | | | | | GRADUATE STUDENT INSTRUCTOR | | | daily per | | | | | | | | week | | | | | | + + + + + + + + | HUMALOG | 3U before | | | INSULIN | 1097996434 | Christen J. | | 100 | lunch and | | | LISPRO | 1 | Raumakita | | UNIT/ML | 5U before | | | | | GRADUATE STUDENT INSTRUCTOR | | SOLN | Dinner | | [...] Inject 0.6 | | | LIRAGLUTID | 3914141576 | Christen Ramirez | | MG/3ML | mg daily | | | E | 2 | Raumakita | | SOPN | | | | | | GRADUATE STUDENT INSTRUCTOR | + + + + + + + + | BASAGLAR | 56 Units | | | INSULIN | 2970861995 | Christen Ramirez | | KWIKPEN | by mouth | | | GLARGINE | 9 | Raumakita | | 100 | every | | | | | GRADUATE STUDENT INSTRUCTOR | | UNIT/ML | morning | | | | | | | SOPN | | | | | | | + + + + + + + + | VICTOZA 18 | 5 unit AM | | | LIRAGLUTID | 1159088832 | Christen Ramirez | | MG/3ML | and 5 | | | E | 2 | Raumakita | | SOPN | units PM | | | | | GRADUATE STUDENT INSTRUCTOR | + + + + + + + + | BASAGLAR | 1 pen | | | INSULIN | 7707613470 | Christen Ramirez | | KWIKPEN | every 3 | | | GLARGINE | 9 | Raumakita | | 100 | days 56 | | | | | GRADUATE STUDENT INSTRUCTOR | | UNIT/ML | units q | | | | | | | SOPN | Day | | | | | | + + + + + + + + | BYETTA 5 | Take as | | | EXENATIDE | 6602132674 | Christen Ramirez | | MCG PEN 5 | directed | | | | 1 | Raumakita | | MCG/0.02ML | once daily | | | | | GRADUATE STUDENT INSTRUCTOR | | SOPN | in the AM | | | | | | + + + + + + + + | LANTUS 100 | 56 units | | | INSULIN | 5455323735 | Kaykay | | UNIT/ML | qAM | | | GLARGINE | 3 | Mora DO | | SOLN | | | | | | | + + + + + + + + | SUPREP | mix and | | | NA | 5839599400 | Emeka | | BOWEL PREP | [...] <150 - | | | INSULIN | 5484251962 | Tiesha | | 100 | No [...] Use daily | | | GLUCOSE | 0620560183 | Tiesha | | BLOOD | to check | | | BLOOD | 4 | [place] MD | | GLUCOSE | blood | | | | | | | TEST STRP | sugar | | | | | | + + + + + + + + | DIABETIC | 1 pair per | | | FOOT CARE | 6673288092 | Tiesha | | INSOLES | custom [...] custom | | | ORTHOTIC | | [place] MD | | SHOES | fit from | | | SHOES | | | | | podiatry | | | | | | | | E11.65, | | | | | | | | e11.21 | | | | | | + + + + + + + + | KEFLEX 500 | 1 pill | | | CEPHALEXIN | 5534782439 | Pako | | MG CAPS | twice a | | | | 1 | Francoiskauf | | | day for 7 | | | | | f GRADUATE STUDENT INSTRUCTOR | | | days | | | | | | + + + + + + + + | BYETTA 5 | 0.02 ml | | | EXENATIDE | 2270562781 | Laurance W | | MCG PEN 5 | injection | | | | 1 | Lila MD | | MCG/0.02ML | two times | | | | | | | SOPN | per day | | | | | | + + + + + + + + | LYRICA 100 | 1 tab | | | PREGABALIN | 8549839458 | Laurance W | | MG CAPS | three | | | | 8 | Lila MD | | | times per | | | | | | | | day | | | | | | + + + + + + + + | DRAMAMINE | take 1-2 | | | DIMENHYDRI | 7244921581 | Laurance W | | 50 MG [...] Use 5 | | | INSULIN | [id number] | Franciscoance W | | SYRINGE | [...] tab by | | | CLOPIDOGRE | [id number] | Bailey W | | MG TABS | mouth one | | | L | 1 | Lila MD | | | time per | | | BISULFATE | | | | | day | | | | | | + + + + + + + + | LANTUS 100 | 25 units | | | INSULIN | [id number] | Laurance W | | UNIT/ML | two times | | | GLARGINE | 3 | Lila MD | | SOLN | per day | | | | | | + + + + + + + + | LASIX 80 | 1 tab by | | | FUROSEMIDE | [id number] | Laurance W | | MG TABS | mouth one | | | | 5 | Lila MD | | | time per | | | | | | | | day | | | | | | + + + + + + + + | FUROSEMIDE | 1 tab one | | | FUROSEMIDE | [id number] | Laurance W | | 40 MG | time per | | | | 5 | Lila MD | | TABS | day | | | | | | + + + + + + + + | BUSPIRONE | 1 TAB | | | BUSPIRONE | [id number] | Laurance W | | HCL 7.5 MG | three | | | HCL | 1 | Lila MD | | TABS | times per | | | | | | | | day | | | | | | + + + + + + + + | COLACE 100 | 1 tab by | | | DOCUSATE | [id number] | Laurance W | | MG CAPS | mouth | | | SODIUM | 0 | Lila MD | | | daily at | | | | | | | | bedtime | | | | | | + + + + + + + + | BACTRIM DS | 1 by mouth | | | TRIMETHOPR | [id number] | Laurance W | | 800-160 | twice a | | | IM-SULFAME | 1 | Lila MD | | MG TABS | day for 3 | | | THOXAZOLE | | | | | days | | | | | | + + + + + + + + | LYRICA 50 | Take 1 tab | | | PREGABALIN | [id number] | Laurance W | | MG CAPS [...] tab one | | | METFORMIN | [id number] | Laurance W | | XR 500 MG | time per | | | HCL | 3 | Lila MD | | [id number] | day | | | | | | + + + + + + + + | CILOSTAZOL | 1 tab two | | | CILOSTAZOL | [id number] | Laurance W | | 100 MG | times per | | | | 1 | Lila MD | | TABS | day | | | | | | + + + + + + + + | PIOGLITAZO | Take 1 tab | | | PIOGLITAZO | [id number] | Laurance W | | NE HCL 15 | by mouth | | | NE HCL | 6 | Lila MD | | MG TABS | one time | | | | | | | | per day | | | | | | + + + + + + + + | ONDANSETRO | 1 tab | | | ONDANSETRO | [id number] | Laurance W | | N HCL 4 MG | every 4 | | | N HCL | 3 | Lila MD | | TABS | hours | | | | | | + + + + + + + + | LANTUS 100 | 56 units | | | INSULIN | [id number] | Laurance W | | UNIT/ML | in the | | | GLARGINE | 3 | Lila MD | | SOLN | morning | | | | | | + + + + + + + + | OMEPRAZOLE | Take one | | | OMEPRAZOLE | [id number] | Laurance W | | 40 MG [...] take 1 | | | ATORVASTAT | [id number] | Laurance W | | MG TABS | tablet by | | | IN CALCIUM | 3 | Lila MD | | | mouth | | | | | | | | daily | | | | | | + + + + + + + + | MECLIZINE | 1 tab | | | MECLIZINE | [id number] | Laurance W | | HCL 25 MG | three | | | HCL | 0 | Lila MD | | TABS | times per | | | | | | | | day | | | | | | + + + + + + + + | RELION | Use to | | | GLUCOSE | [id number] | Bailey W | | BLOOD | test BG | | | BLOOD | 4 | Lila MD | | GLUCOSE | one time | | | | | | | TEST STRP | per day | | | | | | + + + + + + + + | GABAPENTIN | Take 2 | | | GABAPENTIN | [id number] | Laurance W | | 300 MG [...] TAB one | | | VALSARTAN | 5928395332 | Bailey W | | 160 MG | time per | | | | 8 | Lila MD | | TABS | day | | | | | | + + + + + + + + | LYRICA 50 | TAKE ONE | | | PREGABALIN | 7867142425 | Franciscoance W | | MG CAPS | CAPSULE [...] 0.2 ml | | | EXENATIDE | [id number] | Bailey W | | MCG PEN 5 | injection | | | | 1 | Lila MD | | MCG/0.02ML | two times | | | | | | | SOPN | per day | | | | | | + + + + + + + + | VICTOZA 18 | 1.2 mg | | | LIRAGLUTID | [id number] | Bailey W | | MG/3ML | injected | | | E | 2 | Lila MD | | SOPN | martin | | | | | | + + + + + + + + | KEFLEX 500 | one po TID | | | CEPHALEXIN | [id number] | Susanna | | MG CAPS | | | | | 1 | Gianfranco LUIS | + + + + + + + + | FLUCONAZOL | take one | | | FLUCONAZOL | [id number] | Susanna | | E 150 MG | tablet PO | | | E | 1 | Gianfranco LUIS | | TABS | x 1 repeat | | | | | | | | in 3 days | | | | | | + + + + + + + + | LYRICA 50 | 1 tab | | | PREGABALIN | [id number] | Laurance W | | MG CAPS | three | | | | 8 | Lila MD | | | times per | | | | | | | | day | | | | | | + + + + + + + + | GABAPENTIN | Take 2 | | | GABAPENTIN | 3539830075 | Laurance W | | 300 MG [...] tab one | | | DULOXETINE | [id number] | Laurance W | | HCL 30 MG | time per | | | HCL | 6 | Lila MD | | CPEP | day | | | | | | + + + + + + + + | RIOMET 500 | 10ml's two | | | METFORMIN | [id number] | Laurance W | | MG/5ML | [...] TAB one | | | VALSARTAN | [id number] | Laurance W | | MG TABS | time per | | | | 4 | Lila MD | | | day | | | | | | + + + + + + + + | MECLIZINE | One tab by | | | MECLIZINE | [id number] | Laurance W | | HCL 25 [...] take 2 | | | GABAPENTIN | [id number] | Bailey W | | 300 MG [...] tab one | | | VALSARTAN | [id number] | Bailey W | | MG TABS | time per | | | | 4 | Lila MD | | | day | | | | | | + + + + + + + + | VICTOZA 18 | 0.6 mg | | | LIRAGLUTID | [id number] | Bailey W | | MG/3ML | [...] tab one | | | SITAGLIPTI | [id number] | Laurance W | | 100 MG | time per | | | N | 2 | Lila MD | | TABS | day | | | PHOSPHATE | | | + + + + + + + + | GABAPENTIN | 2 tabs two | | | GABAPENTIN | [id number] | Laurance W | | 300 MG | times per | | | | 5 | Lila MD | | CAPS | day | | | | | | + + + + + + + + | DIOVAN 160 | 1 by mouth | | | VALSARTAN | [id number] | Laurance W | | MG TABS | every day | | | | 4 | Lila MD | + + + + + + + + | GABAPENTIN | 1 tab at | | | GABAPENTIN | [id number] | Laurance W | | 100 MG [...] 28 units | | | INSULIN | [id number] | Bailey W | | UNIT/ML | two times | | | GLARGINE | 3 | Lila MD | | SOLN | per day | | | | | | + + + + + + + + | LISINOPRIL | take 1 | | | LISINOPRIL | [id number] | Rogers | | 20 MG | tablet by | | | | 1 | Laith LUIS | | TABS | mouth | | | | | | | | daily | | | | | | + + + + + + + + | LANTUS 100 | 56 units | | | INSULIN | [id number] | Laurance W | | UNIT/ML | daily | | | GLARGINE | 3 | Lila MD | | SOLN | | | | | | | + + + + + + + + | GABAPENTIN | 1 by mouth | | | GABAPENTIN | [id number] | Laurance W | | 100 MG [...] | One | | | ERGOCALCIF | [id number] | Laurance W | | QUANG 01553 | capsule by | | | QUANG [...] by mouth | | | LISINOPRIL | [id number] | Laurance W | | 5 MG TABS | one time | | | | 1 | Lila MD | | | per day | | | | | | + + + + + + + + | RIOMET 500 | 10ml QAM | | | METFORMIN | [id number] | Laurance W | | MG/5ML | Liquid due | | | HCL | 1 | Lila MD | | SOLN | to | | | | | | | | Dysphagia | | | | | | + + + + + + + + | COLACE 100 | one tablet | | | DOCUSATE | [id number] | Laurance W | | MG CAPS | by mouth | | | SODIUM | 0 | Lila MD | | | at bedtime | | | | | | + + + + + + + + | MECLIZINE | 1 by mouth | | | MECLIZINE | [id number] | Laurance W | | HCL 25 [...] one tablet | | | METFORMIN | [id number] | Laurance W | | HCL 1000 | by mouth | | | HCL | 5 | Lila MD | | MG TABS | twice a | | | | | | | | day | | | | | | + + + + + + + + | ASPIRIN 81 | 1 by mouth | | | ASPIRIN | [id number] | Laurance W | | MG TABS | every day | | | | 5 | Lila MD | + + + + + + + + | GABAPENTIN | one tablet | | | GABAPENTIN | [id number] | Bailey W | | 100 MG [...] | she had | | | | Theen MD | | | redness [...] | | | | | | | GRADUATE STUDENT INSTRUCTOR | + + + + + + [...] + + +--------+-------+---+---+ + + + | Lab Report: Glyco [...] [address] | | | | [address], | | | | [place], [address], | | | | | + + + + | Appointment | 01:00 PM | Ambrose Pascual DNP GRADUATE STUDENT INSTRUCTOR, [address] | | | | [facility] [address], | | | | [place], [address], | | | | | + + + + | Referral | | Physical Therapy Evaluation | + + + + | Referral | | Podiatry Consult | | | | Hector Armendariz, | | | | [address] | | | | [address], [place], | | | | [address] | | | | | + + + + | Referral | | Podiatry Consult | | | | Hector Armendariz, | | | | [address] [facility] | | | | [address], [place], | | | | [address] | | | | | + + + + | Referral | | Ophthalmology Consult | | | | Huong Rose, | | | | [address] [facility], [place], | | | | [place], [address] | | | | | + + + + | Referral | | Nephrology Evaluation | | | | Larry Galo, | | | | [address], | | | | [address], [place], [address] | | | | | | | | | + + + + | Referral | | Nephrology Evaluation | | | | Larry Galo, | | | | [address], | | | | [address], [place], [address] | | | | | | | | | + + + + | Referral | | Ophthalmology Consult | | | | Huong Rose, | | | | [address], [place], | | | | [place], [address] | | | | | + + + + | Referral | | Physical Therapy Evaluation | | | | SAV, [address] | | | | [address] | | | | [address], [place], [place], [address] | | | | | | | | | + + + + | Referral | | Physical Therapy Evaluation | | | | SAV, [address] | | | | [address] | | | | [address], [place], [address] | | | | | | | | | + + + + | Referral | | MRA Head-WWO Con | | | | Dian Atkins, [address] | | | | [facility], | | | | [place], [address] | | | | | + + + + | Referral | | MRA Head-WWO Con | | | | Dian Atkins, [address] | | | | [facility], | | | | [place], [address] | | | | | + + [...] Lipid Profile | + + + + Procedures + + + + + | Code | Procedure Name | Date | Entry Date | + + + + + | CPT-00397 | Glucose by monitor | | | + + + + + | [id number] | Overweight | | | + + + + + | [id number] | Overweight | | | + + + + + | [id number] | Overweight | | | + + + + + | CPT-52657 | IV infusion -1st hr | | | | | (Rehydration) | | | + + + + + | CPT-01349 | Glucose by monitor | | | + + + + + | CPT-99336 | UA Dipstick | | | + + + + + | CPT-81397 | DAISY Linick | | | + + + + + | CPT-80222 | Initial Psych | | | | | Evaluation | | | + + + + + | CPT-97945 | [facility], [address] or | | | | | more [address] | | | + + + + [...] | + + + + + | CPT-41634 | Trim Skin Lesions | | | | | [address] | | | + + + + + | CPT-31001 | UA Dipstick | | | + + + + + | CPT-95837 | Barbie Berry, 6 or | | | | | more [address] | | | + + + + [...] + + + | VIT D HYDR 85859 | Vit D, 25 hydroxy | | [...]
--- OUTSIDE RECORDS SUMMARY | ~2019-03-25 | XMS | Encounter Summary ---
Demographics + + + | Address | [address] | | | [place] [address] | + + + | Home Phone | [phone] | + + + | Preferred Language | Unknown | + + + | Marital Status | Never | + + + | Yarsani Affiliation | Unknown | + + + | Race | White | + + + | Ethnic Group | or /Malay | + + + Author + + + | Author | | + + + | Organization | | + + + | Address | [address] | | | [place] [address] | + + + | Phone | [phone] | + + + Reason for Visit + + | None recorded. | + + Instructions + + | 1. Chest pain | + + | troponin I, serum or plasma - ordered 1505 sw | + + | XR, chest | + + | electrocardiogram | + + | 2. Renal failure syndrome | + + | 3. Type 1 diabetes mellitus | + + | 4. Anemia | + + Discussion Note: None recorded.Patient educational handouts: No information available. Plan of Care + + + + + | Reminders | | | Provider | | | | | | + + + + + | Appointments | None recorded. | | | + + + + + | Lab | Troponin I, Serum | 10/29/2016 | [facility] | | | or Plasma | | Center (Main) | + + + + + | Referral | None recorded. | | | + + + + + | Procedures | None recorded. | | | + + + + + | Surgeries | None recorded. | | | + + + + + | Imaging | XR, Chest | 10/29/2016 | [facility] | | | | | Center (Main) | + + + + + | | Electrocardiogram | 10/29/2016 | [facility] | | | | | [facility] | + + + + + Medications + + + + | Name | Start Date | | | | | | + + + + + +---+ | atorvastatin 20 mg tablet | | + +---+ | BD Insulin Pen Needle UF Original 29 gauge | | | x 1/2" | | + +---+ | cefpodoxime 200 mg tablet | | + +---+ | clopidogrel 75 mg tablet | | + +---+ | Diovan | | + +---+ | furosemide 80 mg tablet | | + +---+ | Humalog | | + +---+ | insulin syringe-needle U-100 1 mL 29 gauge | | | x 1/2" | | + +---+ | Lantus 100 unit/mL subcutaneous solution | | + +---+ | Lyrica 100 mg capsule | | + +---+ | omeprazole 40 mg capsule,delayed release | | + +---+ | pantoprazole 40 mg tablet,delayed release | | + +---+ | potassium chloride ER 10 mEq | | | tablet,extended release | | + +---+ | valsartan 160 mg tablet | | + +---+ | Zofran ODT 4 mg disintegrating tablet | | | GIve 1 tablet ODT | | + +---+ Medications Administered None recorded. Vitals + + + + + | Height | Weight | BMI | Blood Pressure | + + + + + | 5 ft 1 in | 173 lbs 5 oz | 32.7 kg/m2 | 140/70 mm[Hg] | + + + + + Lab Results +-------+-------+-------+-------+-------+-------+-------+-------+-------+-------+-------+ | Date | Name | Speci | Resul | Inter | Descr | Value | Range | Statu | Addre | | | | | men | t | preta | iptio | | | s | ss | | | | | | | tion | n | | | | | | | | | | | | | | | | | | | | | | | | | | | | | | | | | | | | | | | | | | | | | | | | | | | | | | +-------+-------+-------+-------+-------+-------+-------+-------+-------+-------+-------+ +---+--------+---+---+---+--------+---+---+---+--------+ | | Electr | | | | No | | | | Evergr | | | ocardi | | | | observ | | | | een | | | ogram | | | | ation | | | | Family | | | | | | | record | | | | | | | | | | | ed. | | | | Medici | | | | | | | | | | | ne PC: | | | | | | | | | | | [address] | | [address] | | [address] | | | | | | | | | | | [address] | [address], | | | | | | | | | | | [place] | | | | | | | | | | | rg | +---+--------+---+---+---+--------+---+---+---+--------+ Allergies +--------+ + + + +-------+ | Code | Code System | Name | Reaction | Severity | Onset | +--------+ + + + +-------+ | 7052 | RxNorm | Morphine | | | | +--------+ + + + +-------+ | [id number] | RxNorm | Vicodin | | | | +--------+ + + + +-------+ Problems + + + + + + | Name | Status | Onset Date | Source | | | | | | | | + + + + + + + +--------+---+ + | Type 1 Diabetes | Active | | Encounter | | Mellitus | | | | + +--------+---+ + | Dehydration | Active | | Encounter | + +--------+---+ + | Urinary Tract | Active | | Encounter | | Infectious Disease | | | | + +--------+---+ + | Syncope | Active | | Encounter | + +--------+---+ + | Pain in Face | Active | | Encounter | + +--------+---+ + | Nausea and Vomiting | Active | | Encounter | + +--------+---+ + | Flank Pain | Active | | Encounter | + +--------+---+ + | Right Lower | Active | | Encounter | | Quadrant Pain | | | | + +--------+---+ + | Local Infection of | Active | | Encounter | | Wound | | | | + +--------+---+ + Procedures + + + + + | Date | Name | Performed by | | | | | | | + + + + + + + + + | | Back Surgery | Information not available | + + + + | | Hysterectomy, Partial | Information not available | + + + + | | Knee Surgery | Information not available | + + + + | 10/29/2016 | XR, Chest | [facility]) | | | | [address] | | | | [place] [address] | | | | (Work Place) | + + + + | 10/29/2016 | Electrocardiogram | [facility] | | | | [address] | | | | [place] [phone] | | | | [phone] (Work Place) | + + + + Vaccine List None recorded. Social History + + +---+ | Smoking Status | Never Smoker | | + + +---+ Past Encounters + ----+ | 10/29/2016 | | Chest Pain; Renal Failure Syndrome; Type 1 Diabetes Mellitus; Anemia | | Abdiel Titus DO: [address] [address], [place]. | + ----+ | 10/06/2016Open Wound of ToeCorky Cat PA-C: [address] [place] [address], | | [place] [phone], Ph. | |Corky Cat PA-C: [address] [place] [phone], Ph. | + ----+ History of Present Illness Note:<p></p><p></p><p></p><p></p><p></p><p></p><p></p><p></p><p></p><p></p><p>&lt ;/p><p></p><p></p><p></p><p>Patient is a 71-year-old female who presents to the office today with a chief complaint of a 1 day history of chest pain she states that the pain is a littl e bit dull in character but becomes sharp intermittently she denies any change of pain with deep breathing or movement she was seen at the hospital yesterday for elevated blood sugars patient also had recent blood work done today from her primary care doctor and her nephrolog ist which included a CBC revealing a hemoglobin of 9.8 hematocrit of 28.4 normal white blood cell count and platelets of 126,000 blood chemistries that were also done revealed the elec trolytes to be in the normal range and elevated blood sugar 375 patient's Accu-Chek in the o ffice today was 242,.<br [email or web address]="[email or web address]"></p><p></p><p></p><p></p><p></p><p></p ><p></p><p></p><p></p><p></p><p></p><p></p><p></p><p></p><p></p>Review of Systems:ROS as not ed in the [facility] Review of Systems None recorded. Physical Exam + + + | | General Adult Exam | + + + | Reported By: | Patient | + + + | Constitutional: | General Appearance: awake, alert, oriented | | | x 3, NAD, hydrated | + + + | Head: | Head: normocephalic | + + + | Eyes: | Eyes: TRACEE, EOMI, clear | + + + | ENMT: | Ears: right TM clear, left TM clear, right | | | canal clear, left canal clear. Pharynx: | | | mucous membranes moist, airway clear, | | | normal dentition. Nasopharynx: clear. | | | Throat: throat clear, tonsils normal. | | | Neck: supple, non tender | + + + | Cardiovascular: | Heart: regular heart rate, no murmurs | + + + | Lungs: | Chest/Lungs: clear to auscultation | + + + | Abdomen: | Abdomen: soft, nontender, normal bowel | | | sounds | + + + | Musculoskeletal: | Musculoskeletal: neurovascular intact, no | | | deformity | + + +
--- OUTSIDE RECORDS SUMMARY | ~2019-03-25 | XMS ---
Demographics + + + | Address | [address] [place] [address] | | | [place] [address] | + + + | Home Phone | | + + + | Preferred Language | Unknown | + + + | Marital Status | S | + + + | Samaritan Affiliation | Unknown | + + + | Race | White | + + + | Ethnic Group | or | + + + Author + + + | Author | [facility] | + + + | Organization | [facility] | + + + | Address | [address] | | | [place] [address] | + + + | Phone | Unavailable | + + + Care Team Providers + + + + | Care Airport Shuttle Driver Name | Role | Phone | + [...] | | | History of Present Illness JOSHUA Mclean | | | ADALGISA is a 72 year old female who | | | presents today for right knee pain. | | | Symptoms have been present for several | | | months. There was no specific injury | | | event. Patient reports gives way. No | | | previous physical therapy or injections. | | | Patient reports having arthroscopic right | | | knee about 30 years ago. She states that | | | Tylenol has helped with some of the pain. | | | Current Medications BASAGLAR | | | KWIKPEN 100 UNIT/ML SUBCUTANEOUS SOLUTION | | | PEN-INJEC (INSULIN GLARGINE) 68 Units | | | every morning (34 units on each side) | | | VALSARTAN 160 MG ORAL [...] breakfast as | | | needed NYSTATIN-TRIAMCINOLONE 067948-8.1 | | | UNIT/GM-% EXTERNAL CREAM | [...] | one tablet daily in the AM COLACE 100 MG | | | ORAL CAPSULE (DOCUSATE SODIUM) 1 pill | | | twice daily for soft stools MECLIZINE HCL | | | 25 MG ORAL TABLET (MECLIZINE HCL) One tab | | | by mouth three times per day NOVOLOG 100 | | | UNIT/ML SUBCUTANEOUS SOLUTION (INSULIN | | | ASPART) 12 Units before meals | | [...] juice or | | | other liquid RELION BLOOD GLUCOSE TEST | | | IN VITRO STRIP (GLUCOSE BLOOD) Use to | | | check blood sugars four times per day | | | DX: E11.65 SMITH: 99 MONTHS RELION PRIME | | | MONITOR DEVICE (BLOOD GLUCOSE MONITORING | | | SUPPL) use with test strips to test BG | | | daily BD INSULIN SYRINGE ULTRAFINE 29G X | | | 1/2" 0.5 ML (INSULIN SYRINGE-NEEDLE U-100) | | | Use to inject insulin 5 times per day | | | Current Allergies VICODIN (Critical) | | | MORPHINE (Critical) * CIPRO IV (Critical) | | | * MECLIZINE (Moderate) LISINOPRIL | | | (Moderate) Review of Symptoms | | | Positive for fatigue, blurry vision, | | | hearing loss, swelling of feet/ankles, | | | shortness of breath w/walking, joint | | | weakness or stiffness, difficulty walking, | | | memory loss. All other systems are | | | reviewed and are negative. Medical | | | History Type 2 [...] Number of Children: 7 | | | Pentecostalism/Religion: Sikh Primary | | | Language: Jamaican Use of Jamaican | | | Language: Fluent Risk Factors | | | Tobacco Use: never smoker Alcohol | | | Use:never Drug Use: none Comments: | | | Denies all drug | | | use....................................... | | | .............................Edna Hope | | | [facility] September 23, 2017 4:25 PM | | | Physical Exam Vitals: Ht: 60 in Wt: | | | 183 lbs P: 94 O2 sat. at rest is 98% on | | | RA BP: 130/72 mm Hg Calculated BMI: | | | 35.87 General appearnce- | | | well-nourished female, not in aparrent | | | distress. Neurological- cranial nerve | | | II- XII grossly intact, Psychiatric-mood | | | and affect normal. alert and well | | | oriented to time place person and | | | circumstances . Normal judgment and | | | insight. Normal recent and remote memory. | | | Skin- no abnormal skin lesions are | | | subcutaneous nodules in inspection or | | | palpation. Musculoskeletal- Right | | | knee exam - Inspection -no asymmetry of | | | the knees, mild swelling over the medial | | | aspect erythema, deformity of the joint, | | | or varus/valgus deformity, no scars, no | | | fixed flexion deformity, no obvious muscle | | | wasting Palpation-no crepitus with | | | knee flexion and extension, no swelling | | | with milking, no increased temperature | | | compared to contralateral side, no | | | ecchymosis or bruising, tenderness over | | | the joint line both medially and laterally | | | and generalized tenderness over the knee. | | | Range of motion Flexion 130 , pain | | | with terminal flexion,, extension 0 | | | Special tests Valgus stress negative, | | | varus stress negative. Anterior drawer | | | test -negative Heber's negative | | | posterior drawer test-negative posterior | | | sag test-negative Jointline tenderness | | | positive Roxane's test positive | | | Imaging Studies [facility] | | | XR 12/26/2017 Right Knee 4V | | | INDICATION: Right Knee Pain FINDINGS: | | | No acute fractures/dislocations are | | | identified. No opaque intraarticular | | | loose body is seen There is ___moderate__ | | | joint space narrowing mainly over the | | | ____medial__ compartment of the right | | | knee. No acute soft tissue abnormalities | | | are detected. No definite suprapatellar | | | effusion of the ___right___ knee is seen | | | on lateral view. IMPRESSION: __There is | | | moderate___ degenerative changes in the | | | right knee as discussed above... [facility] | | | [facility] EXAM: Right Knee | | | Ultrasound Guided Injection INDICATION: | | | Right knee pain secondary to OA | | | PROCEDURE: The risks, benefits, | | | alternatives and the complications of the | | | injections were discussed with patient. | | | The area was cleaned with chlorhexidine | | | and alcohol. Under the ultrasound | | | guidance about 25 cc of the normal | | | synovial fluid was aspirated and then 8-cc | | | of 0.5 % bupivacaine without epinephrine | | | and 2-cc of Kenalog 40 mg per mL | | | (total-10cc) was injected in the right | | | knee joint by a lateral approach. Patient | | | tolerated the procedure without any | | | complications. Assessment & Plan | | | This patient is a very pleasant female | | | with right knee pain secondary to | | | moderate degenerative changes especially | | | involving the medial component. Today we | | | discussed different treatment | | | options.Today we did steroid injection as | | | described above in procedure section. | | | Follow-up p.r.n. This note was | | | transcribed using [employer] Speech | | | Recognition software. As a result, there | | | may be grammatical and spelling errors | | | that are unintended. Every attempt is | | | made to have correct dictation. If there | | | are any questions or major errors, please | | | contact our office. | | | Meaningful Use Med List: (Reconciled) | | | | | | .......................................... | | | .........................Beatriz Galindo | | | [place] December 26, 2017 4:08 PM | + + + Assessments No information available. Chief Complaint No information available. History of Past Illness No information available.
--- OUTSIDE RECORDS SUMMARY | ~2019-03-25 | XMS | Clinical Summary ---
Demographics + + + | Address | [address] [place] [address] | | | [place] [address] | + + + | Home Phone | | + + + | Preferred Language | Unknown | + + + | Marital Status | D | + + + | Anglican Affiliation | Unknown | + + + | Race | White | + + + | Ethnic Group | or | + + + Author + + + | Author | [facility] | + + + | Organization | [facility] | + + + | Address | [address] | | | [place], [place] [address] | + + + | Phone | Unavailable | + + + Care Team Providers + +------+ + | Care Spa Experience Coordinator Name | Role | Phone | [...] tion | | +---------+---------+---------+---------+---------+---------+---------+---------+---------+ | VACCINA | [id number] | | Active | | Ambrose | | Medicat | | | TION | 02 | / | | /03 | Ankur | | ion | | | FOR | (SNOMED | | | | DNP DIE FINISHER FORGING | | given | | | STREP [...] | | | +---------+---------+---------+---------+---------+---------+---------+---------+---------+ | OSTEOAR | [id number] | | Active | | Edna | | Osteoar | | | THRITIS | 07 | /16 | | /18 | Hope | | thritis | | | , KNEE, | (SNOMED | | | | CCMA | | of | | | RIGHT | CT) | | | | | | knee | | +---------+---------+---------+---------+---------+---------+---------+---------+---------+ | CONSTIP | [id number] | | Active | | Ambrose | | Constip | | | ATION | 8 | / | | /13 | Ankur | | ation | | | | (SNOMED | | | | DNP DIE FINISHER FORGING | | | | | | CT) | | | | | | | | +---------+---------+---------+---------+---------+---------+---------+---------+---------+ | TYPE 2 | E11.21 | | Active | | Ambrose | | Type 2 | | | DIABETE | (ICD-10 | / | | | Ankur | | diabete | | | S | -CM) | | | | DNP DIE FINISHER FORGING | | s | | | MELLITU [...] athy | | +---------+---------+---------+---------+---------+---------+---------+---------+---------+ | DIABETE | [id number] | | Inactiv | | Ambrose | | Type 2 | | | S | 6 | /08 | e | /08 | Ankur | | diabete | | | MELLITU | (SNOMED | | | | DNP DIE FINISHER FORGING | | s | | | S, TYPE | CT) | | | | | | mellitu | | | II, ON | | | | | | | s | | | | | | | | | | | | | INSULIN | | | | | | | | | +---------+---------+---------+---------+---------+---------+---------+---------+---------+ | DEHYDRA | [id number] | | Resolve | | Ambrose | | Dehydra | | | TION | 6 | / | d | /08 | Ankur | | tion | | | | (SNOMED | | | | DNP DIE FINISHER FORGING | | | | | | CT) | | | | | | | | +---------+---------+---------+---------+---------+---------+---------+---------+---------+ | DIZZINE | [id number] | | Inactiv | | Ambrose | | Dizzine | | | SS | 03 | /08 | e | /08 | Ankur | | ss | | | | (SNOMED | | | | DNP DIE FINISHER FORGING | | | | | | CT) | | | | | | | | +---------+---------+---------+---------+---------+---------+---------+---------+---------+ | ANEMIA | [id number] | | Inactiv | | Ambrose | | Anemia | | | | 00 | /10 | e | /10 | Ankur | | | | | | (SNOMED | | | | DNP DIE FINISHER FORGING | | | | | | CT) | | | | | | | | +---------+---------+---------+---------+---------+---------+---------+---------+---------+ | CONSTIP | [id number] | | Inactiv | | Ambrose | | Constip | | | ATION | 8 | / | e | / | Ankur | | ation | | | | (SNOMED | | | | DNP DIE FINISHER FORGING | | | | | | CT) | | | | | | | | +---------+---------+---------+---------+---------+---------+---------+---------+---------+ | SYNCOPE | [id number] | | Resolve | | Ambrose | | Syncope | | | | 07 | | d | / | Ankur | | | | | | (SNOMED | | | | DNP DIE FINISHER FORGING | | | | | | CT) | | | | | | | | +---------+---------+---------+---------+---------+---------+---------+---------+---------+ | DYSPHAG | R13.10 | | Resolve | | Ambrose | | Dysphag | | | IA | (ICD-10 | | d | /26 | Ankur | | ia, | | | UNSPECI | -CM) | | | | DNP DIE FINISHER FORGING | | unspeci | | | FIED | | | | | | | fied | | +---------+---------+---------+---------+---------+---------+---------+---------+---------+ | PARESTH | [id number] | | Inactiv | | Ambrose | | Paresth | | | ESIA, | | | e | | Ankur | | esia of | | | HANDS | (SNOMED | | | | DNP DIE FINISHER FORGING | | hand | | | | CT) | | | | | | | | +---------+---------+---------+---------+---------+---------+---------+---------+---------+ | DIABETI | [id number] | | Inactiv | | Ambrose | | Diabeti | | | C | | | e | | Ankur | | c | | | PERIPHE | (SNOMED | | | | DNP DIE FINISHER FORGING | | periphe | | | RAL [...] | -CM) | | | | DNP DIE FINISHER FORGING | | unspeci | | | FIED | | | | | | | fied | | +---------+---------+---------+---------+---------+---------+---------+---------+---------+ | VAGINIT | [id number] | | Resolve | | Ambrose | | Vaginit | | | IS | 1 | /31 | d | /31 | Ankur | | is | | | | (SNOMED | | | | DNP DIE FINISHER FORGING | | | | | | CT) | | | | | | | | +---------+---------+---------+---------+---------+---------+---------+---------+---------+ | DYSURIA | [id number] | | Resolve | | Ambrose | | Dysuria | | | | 1 | /31 | d | /31 | Ankur | | | | | | (SNOMED | | | | DNP DIE FINISHER FORGING | | | | | | CT) | | | | | | | | +---------+---------+---------+---------+---------+---------+---------+---------+---------+ | EDEMA | [id number] | | Inactiv | | Ambrose | | Edema | | | | 08 | | e | / | Ankur | | | | | | (SNOMED | | | | DNP DIE FINISHER FORGING | | | | | | CT) | | | | | | | | +---------+---------+---------+---------+---------+---------+---------+---------+---------+ | RENAL | [id number] | | Inactiv | | Ambrose | | Acute | | | FAILURE | 1 | | e | / | Ankur | | renal | | | , ACUTE | (SNOMED | | | | DNP DIE FINISHER FORGING | | failure | | | | CT) | | | | | | | | | | | | | | | | syndrom | | | | | | | | | | e | | +---------+---------+---------+---------+---------+---------+---------+---------+---------+ | DIABETE | [id number] | | Inactiv | | Ambrose | | Periphe | | | S | 02 | / | e | / | Ankur | | ral | | | MELLITU | (SNOMED | | | | DNP DIE FINISHER FORGING | | circula | | | S, [...] | -CM) | | | | DNP DIE FINISHER FORGING | | s | | | DIABETI [...] ropathy | | +---------+---------+---------+---------+---------+---------+---------+---------+---------+ | LOCALIZ | [id number] | | Resolve | | Ambrose | | Disorde | | | ED | 09 | /30 | d | /30 | Ankur | | r of | | | SWELLIN | (SNOMED | | | | DNP DIE FINISHER FORGING | | forearm | | | G [...] | | | +---------+---------+---------+---------+---------+---------+---------+---------+---------+ | UTI | [id number] | | Resolve | | Ambrose | | Urinary | | | | 5 | /13 | d | /13 | Ankur | | tract | | | | (SNOMED | | | | DNP DIE FINISHER FORGING | | infecti | | | | [...] | -CM) | | | | DNP DIE FINISHER FORGING | | s | | | MELLITU [...] athy | | +---------+---------+---------+---------+---------+---------+---------+---------+---------+ | DEMENTI | [id number] | | Inactiv | | Ambrose | | Procedu | | | A | | / | e | | Ankur | | re | | | SCREENI | (SNOMED | | | | DNP DIE FINISHER FORGING | | carried | | | NG | CT) | | | | | | out on | | | | | | | | | | | | | | | | | | | | subject | | +---------+---------+---------+---------+---------+---------+---------+---------+---------+ | CHANGE | 9005705 | | Inactiv | | Ambrose | | Altered | | | IN | 9 | / | e | /13 | Ankur | | bowel | | | BOWEL | (SNOMED | | | | DNP DIE FINISHER FORGING | | functio | | | HABITS | CT) | | | | | | n | | +---------+---------+---------+---------+---------+---------+---------+---------+---------+ | MILD | 3608614 | | Inactiv | | Ambrose | | Mild | | | COGNITI | | | e | | Ankur | | cogniti | | | VE | (SNOMED | | | | DNP DIE FINISHER FORGING | | ve | | | IMPAIRM | CT) | | | | | | disorde | | | ENT | | | | | | | r | | +---------+---------+---------+---------+---------+---------+---------+---------+---------+ | DIABETE | [id number] | | Inactiv | | Ambrose | | Diabeti | | | S | 589319 | /11 | e | / | Ankur | | c | | | MELLITU | (SNOMED | | | | DNP DIE FINISHER FORGING | | periphe | | | S, [...] fied | | +---------+---------+---------+---------+---------+---------+---------+---------+---------+ | DIABETE | [id number] | | Active | | David W | | Diabeti | | | S | 266968 | /15 | | /15 | Theen [...] s | | +---------+---------+---------+---------+---------+---------+---------+---------+---------+ | MUSCLE | [id number] | | Active | | Christen | | Muscle | | | PAIN | 1 | 07 | | /07 | J. | | pain | | | | (SNOMED | | | | [place] | | | | | | CT) | | | | ta DIE FINISHER FORGING | | | | +---------+---------+---------+---------+---------+---------+---------+---------+---------+ | DIABETE | 1691596 | | Removed | | David W | | Diabeti | | | S | 321600 | | | | Theen | | [...] s | | +---------+---------+---------+---------+---------+---------+---------+---------+---------+ | MILD | 3441359 | | Removed | | Maulik | [...] uterus | | +---------+---------+---------+---------+---------+---------+---------+---------+---------+ | COLONIC | 6394312 | | Active | | Emeka | [...] | | | +---------+---------+---------+---------+---------+---------+---------+---------+---------+ | CONSTIP | 0717298 | | Removed | | Emeka | | Constip | | | ATION | 8 | /13 | | /13 | Petre | | ation | | | | (SNOMED | | | | MD | | | | | | CT) | | | | | | | | +---------+---------+---------+---------+---------+---------+---------+---------+---------+ | CHANGE | 9221119 | | Removed | | Emeka | | Altered | | | IN | 9 | /13 | | /13 | Petre | | bowel | | | BOWEL | (SNOMED | | | | MD | | functio | | | HABITS | CT) | | | | | | n | | +---------+---------+---------+---------+---------+---------+---------+---------+---------+ | DECREAS | 0357191 | | Active | | Emeka | | Decreas | | | ED | 6 | 13 | | 13 | Petre | | e in | | | APPETIT | (SNOMED | | | | MD | | appetit | | | E | CT) | | | | | | e | | +---------+---------+---------+---------+---------+---------+---------+---------+---------+ | WEIGHT | 4286945 | | Active | | Emeka | | Abnorma | | | LOSS | 01 | | | 13 | Petre | | l | | | ABNORMA | (SNOMED | | | | MD | | weight | | | L | CT) | | | | | | loss | | +---------+---------+---------+---------+---------+---------+---------+---------+---------+ | NAUSEA | 3185794 | | Active | | Emeka | | Nausea | | | ALONE | 07 | /13 | | /13 | Petre | | | | | | (SNOMED | | | | MD | | | | | | CT) | | | | | | | | +---------+---------+---------+---------+---------+---------+---------+---------+---------+ | RECTAL | 8287053 | | Active | | Emeka | | Rectal | | | BLEEDIN | 2 | /13 | | /13 | Petre | | hemorrh | | | G | (SNOMED | | | | MD | | age | | | | CT) | | | | | | | | +---------+---------+---------+---------+---------+---------+---------+---------+---------+ | DEMENTI | 3176528 | | Active | | Christen | | Dementi | | | A | 6 | /10 | | /10 | J. | | a | | | WITHOUT | (SNOMED | | | | [place] | | | | | | CT) | | | | ta DIE FINISHER FORGING | | | | | BEHAVIO | | | | | | | | | | RAL | | | | | | | | | | DISTURB | | | | | | | | | | ANCE | | | | | | | | | +---------+---------+---------+---------+---------+---------+---------+---------+---------+ | CHRONIC | 9545344 | | Active | | Christen | | Chronic | | | | 03 | /10 | | /10 | J. | | | | | PROGRES | (SNOMED | | | | [place] | | progres | | | SIVE | CT) | | | | ta DIE FINISHER FORGING | | sive | | | RENAL | | | | | | | renal | | | FAILURE | | | | | | | failure | | +---------+---------+---------+---------+---------+---------+---------+---------+---------+ | ANEMIA | 5428787 | | Removed | | Christen | | Anemia | | | | 00 | /10 | | /10 | J. | | | | | | (SNOMED | | | | [place] | | | | | | CT) | | | | ta DIE FINISHER FORGING | | | | +---------+---------+---------+---------+---------+---------+---------+---------+---------+ | DEMENTI | [id number] | | Removed | | Christen | | Procedu | | | A | 03 | / | | / | J. | | re | | | SCREENI | (SNOMED | | | | [place] | | carried | | | NG | CT) | | | | ta DIE FINISHER FORGING | | out on | | | | | | | | | | | | | | | | | | | | subject | | +---------+---------+---------+---------+---------+---------+---------+---------+---------+ | FALL | [id number] | | Active | | Christen | | At risk | | | RISK | | | | | J. | | for | | | | (SNOMED | | | | [place] | | falls | | | | CT) | | | | ta DIE FINISHER FORGING | | | | +---------+---------+---------+---------+---------+---------+---------+---------+---------+ | DIABETE | 7827453 | | Resolve | | Christen | | Diabeti | | | S | 510075 | /14 | d | /15 | J. | | c | | | MELLITU | (SNOMED | | | | [place] | | periphe | | | S, TYPE | CT) | | | | ta DIE FINISHER FORGING | | ral | | | II [...] s | | +---------+---------+---------+---------+---------+---------+---------+---------+---------+ | CORNS | [id number] | | Inactiv | | Kali | | Corns | | | AND | | | e | | Palacio | | and | | | CALLOSI | (SNOMED | | | | DPM | | callus | | | TIES | CT) | | | | | | | | +---------+---------+---------+---------+---------+---------+---------+---------+---------+ | HAMMER | 7471515 | | Active | | Kali | [...] | | | +---------+---------+---------+---------+---------+---------+---------+---------+---------+ | ETIENNE | 7144230 | | Active | | Kali | [...] ropathy | | +---------+---------+---------+---------+---------+---------+---------+---------+---------+ | DIABETE | 1436493 | | Removed | | Kali | [...] s | | +---------+---------+---------+---------+---------+---------+---------+---------+---------+ | ONYCHOM | 3742289 | | Active | | Kali | | Onychom | | | YCOSIS | 08 | /01 | | /01 | Palacio | | ycosis | | | | (SNOMED | | | | DPM | | | | | | CT) | | | | | | | | +---------+---------+---------+---------+---------+---------+---------+---------+---------+ | HEARTBU | 3460126 | | Active | | Tiesha | | Heartbu | | | RN | 0 | /19 | | /19 | | | rn | | | | (SNOMED | | | | [place] | | | | | | CT) | | | | MD | | | | +---------+---------+---------+---------+---------+---------+---------+---------+---------+ | TYPE 2 | 7999533 | | Active | | Tiesha | | Disorde | | | DIABETE | 03 | /19 | | /19 | | | r due | | | S | (SNOMED | | | | [place] | | to type | | | [...] athy | | +---------+---------+---------+---------+---------+---------+---------+---------+---------+ | UTI | 4004419 | | Removed | | Pako | | Urinary | | | | 5 | /13 | | /13 | Middlek | | tract | | | | (SNOMED | | | | auff | | infecti | | | | CT) | | | | DIE FINISHER FORGING | | ous | | | | | | | | | | disease | | +---------+---------+---------+---------+---------+---------+---------+---------+---------+ | LOCALIZ | 6803261 | | Removed | | D'Elena | [...] | | | +---------+---------+---------+---------+---------+---------+---------+---------+---------+ | LIPOMA | 5579021 | | Active | | Lauranc | | Lipoma | | | | 2 | /14 | | /14 | e W | | (clinic | | | | (SNOMED | | | | Lila | | al) | | | | CT) | | | | MD | | | | +---------+---------+---------+---------+---------+---------+---------+---------+---------+ | VITAMIN | 8623617 | | Active | | David Paez | | Vitamin | | | D | 6 | / | | / | Theen | | D | | | DEFICIE | (SNOMED | | | | MD FACE | | deficie | | | NCY | CT) | | | | FACP | | ncy | | +---------+---------+---------+---------+---------+---------+---------+---------+---------+ | OBESITY | 7244407 | | Active | | David Paez | | Obesity | | | , BMI | 01 | | | | Theen | | | | | 35-39.9 | (SNOMED | | | | MD FACE | | | | | , ADULT | CT) | | | | FACP | | | | +---------+---------+---------+---------+---------+---------+---------+---------+---------+ | DIABETE | 8781192 | | Removed | | David Paez | | Diabeti | | | S | 727428 | /14 | | | Theen | [...] s | | +---------+---------+---------+---------+---------+---------+---------+---------+---------+ | HALLUX | 2212787 | | Inactiv | | Kali | [...] | | | +---------+---------+---------+---------+---------+---------+---------+---------+---------+ | HAMMER | 8127077 | | Inactiv | | Kali | [...] | | | +---------+---------+---------+---------+---------+---------+---------+---------+---------+ | ONYCHOM | 1737192 | | Inactiv | | Kali | [...] ropathy | | +---------+---------+---------+---------+---------+---------+---------+---------+---------+ | DIABETE | 5225711 | | Inactiv | | Kali | [...] s | | +---------+---------+---------+---------+---------+---------+---------+---------+---------+ | SCREENI | 0960995 | | Resolve | | Lauranc | | Depress | | | NG FOR | 06 | /10 | d | /10 | e W | | ion | | | DEPRESS | (SNOMED | | | | Lila | | screeni | | | ION | CT) | | | | MD | | ng | | +---------+---------+---------+---------+---------+---------+---------+---------+---------+ | SCREENI | 5945956 | | Resolve | | Lauranc | [...] | | | +---------+---------+---------+---------+---------+---------+---------+---------+---------+ | SCREENI | 7425590 | | Resolve | | Lauranc | [...] ng | | +---------+---------+---------+---------+---------+---------+---------+---------+---------+ | SCREENI | 8198442 | | Removed | | Geetha | | Alcohol | | | NG FOR | 01 | /10 | | /10 | Rozel | | | | | ALCOHOL | (SNOMED | | | | [facility] | | consump | | | ISM | CT) | | | | | | tion | | | | | | | | | | screeni | | | | | | | | | | ng | | +---------+---------+---------+---------+---------+---------+---------+---------+---------+ | SCREENI | 0083814 | | Removed | | Geetha | [...] | | | +---------+---------+---------+---------+---------+---------+---------+---------+---------+ | SCREENI | 9878572 | | Removed | | Geetha | | Depress | | | NG FOR | 06 | | | | Rozel | | ion | | | DEPRESS | (SNOMED | | | | [facility]MA | | screeni | | | ION | CT) | | | | | | ng | | +---------+---------+---------+---------+---------+---------+---------+---------+---------+ | RENAL | 7945344 | | Removed | | Lauranc | [...] e | | +---------+---------+---------+---------+---------+---------+---------+---------+---------+ | EDEMA | 0905356 | | Removed | | Lauranc | | Edema | | | | 08 | /15 | | /11 | e W | | | | | | (SNOMED | | | | Lila | | | | | | CT) | | | | MD | | | | +---------+---------+---------+---------+---------+---------+---------+---------+---------+ | RENAL | 5336487 | | Active | | Luz | [...] e | | +---------+---------+---------+---------+---------+---------+---------+---------+---------+ | PERIPHE | 3980100 | | Active | | Lauranc | [...] disease | | +---------+---------+---------+---------+---------+---------+---------+---------+---------+ | CANDIDI | 3050558 | | Active | | Susanna | | Candidi | | | ASIS, | 6 | / | | / | Medel | | asis of | | | SKIN | (SNOMED | | | | MD | | skin | | | | CT) | | | | | | | | +---------+---------+---------+---------+---------+---------+---------+---------+---------+ | DYSURIA | 8948442 | | Removed | | Erica | | Dysuria | | | | 1 | / | | | Paul | | | | | | (SNOMED | | | | MA | | | | | | CT) | | | | | | | | +---------+---------+---------+---------+---------+---------+---------+---------+---------+ | VAGINIT | 6352379 | | Removed | | Erica | | Vaginit | | | IS | 1 | / | | / | Paul | | is | | | | (SNOMED | | | | MA | | | | | | CT) | | | | | | | | +---------+---------+---------+---------+---------+---------+---------+---------+---------+ | RLQ | 8590646 | | Resolve | | Lauranc | | Right | | | PAIN | 02 | | d | /11 | e W | | lower | | | | (SNOMED | | | | Lila | | quadran | | | | CT) | | | | MD | | t pain | | +---------+---------+---------+---------+---------+---------+---------+---------+---------+ | ABDOMIN | 7851085 | | Resolve | | Lauranc | [...] | | | +---------+---------+---------+---------+---------+---------+---------+---------+---------+ | KNEE | 0124835 | | Active | | Lauranc | | Knee | | | PAIN | 3 | /14 | | /14 | e W | | pain | | | | (SNOMED | | | | Lila | | | | | | CT) | | | | MD | | | | +---------+---------+---------+---------+---------+---------+---------+---------+---------+ | Questio | 8344578 | | Correct | | Lauranc | [...] e | | +---------+---------+---------+---------+---------+---------+---------+---------+---------+ | VERTIGO | 6094419 | | Active | | Luz | | Vertigo | | | | | / | | / | Asad | | | | | | (SNOMED | | | | RN | | | | | | CT) | | | | | | | | +---------+---------+---------+---------+---------+---------+---------+---------+---------+ | CHEST | 3403071 | | Inactiv | | Genny | | Chest | | | PAIN | 9 | | e | / | Kaufman | | pain | | | | (SNOMED | | | | | | | | | | CT) | | | | | | | | +---------+---------+---------+---------+---------+---------+---------+---------+---------+ | CHEST | 4448931 | | Inactiv | | Lauranc | [...] fied | | +---------+---------+---------+---------+---------+---------+---------+---------+---------+ | CEREBRO | 9740508 | | Active | | Rogers | | 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 | | | R | (SNOMED | | | | MD | | r | | | DISEASE | CT) | | | | | | disease | | +---------+---------+---------+---------+---------+---------+---------+---------+---------+ | History | 7326446 | | Active | | Rogers | [...] | | | +---------+---------+---------+---------+---------+---------+---------+---------+---------+ | DIABETI | 1728007 | | Removed | | Rogers | [...] thy | | +---------+---------+---------+---------+---------+---------+---------+---------+---------+ | HYPERLI | 9648587 | | Active | | Rogers | [...] e | | +---------+---------+---------+---------+---------+---------+---------+---------+---------+ | CEREBRA | 6166123 | | Correct | | Rogers | [...] s | | +---------+---------+---------+---------+---------+---------+---------+---------+---------+ | ABDOMIN | 0340842 | | Removed | | Patricia | [...] | | | +---------+---------+---------+---------+---------+---------+---------+---------+---------+ | RLQ | 0376900 | | Removed | | Patricia | [...] fied | | +---------+---------+---------+---------+---------+---------+---------+---------+---------+ | CARPAL | 8568713 | | Active | | Rogers | | Carpal | | | 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 | | | | MD | | 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, LEFT | CT) | | | | | | e | | +---------+---------+---------+---------+---------+---------+---------+---------+---------+ | Quest[facility] | 1245883 | | Removed | | Rogers | [...] | | | +---------+---------+---------+---------+---------+---------+---------+---------+---------+ | GAIT | 3158033 | | Active | | Rogers | | Abnorma | | | IMBALAN | | | | | Laith | | l gait | | | CE | (SNOMED | | | | MD | | | | | | CT) | | | | | | | | +---------+---------+---------+---------+---------+---------+---------+---------+---------+ | BRAIN | 1368275 | | Correct | | Rogers | [...] e | | +---------+---------+---------+---------+---------+---------+---------+---------+---------+ | PARESTH | 6373794 | | Removed | | Rogers | | Paresth | | | ESIA, | 04 | /25 | | /25 | Laith | | esia of | | | HANDS | (SNOMED | | | | MD | | hand | | | | CT) | | | | | | | | +---------+---------+---------+---------+---------+---------+---------+---------+---------+ | PERIPHE | 7861119 | | Correct | | Rogers | | Periphe | | | RAL | 06 | / | ion | /25 | Laith | | ral | | | NEUROPA | (SNOMED | | | | MD | | nerve | | | THY | CT) | | | | | | disease | | +---------+---------+---------+---------+---------+---------+---------+---------+---------+ | THYROID | 4924205 | | Active | | Luz | | Thyroid | | | NODULE | 05 | /20 | | /20 | Eladio | | nodule | | | | (SNOMED | | | | [facility] | | | | | | CT) | | | | | | | | +---------+---------+---------+---------+---------+---------+---------+---------+---------+ | TIA | 5175193 | | Active | | Lauranc | [...] a | | +---------+---------+---------+---------+---------+---------+---------+---------+---------+ | SYNCOPE | 0930229 | | Removed | | Lauranc | | Syncope | | | | | | | | e W | | | | | | (SNOMED | | | | Lila | | | | | | CT) | | | | MD | | | | +---------+---------+---------+---------+---------+---------+---------+---------+---------+ | GASTROP | 8227400 | | Active | | Lauranc | | 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 | | | | (SNOMED | | | | Lila | | syndrom | | | | CT) | | | | MD | | e | | +---------+---------+---------+---------+---------+---------+---------+---------+---------+ | CONSTIP | [id number] | | Active | | Lauranc | | Chronic | | | ATION, | 09 | /08 | | /08 | e W | | | | | CHRONIC | (SNOMED | | | | Lila | | constip | | | | CT) | | | | MD | | ation | | +---------+---------+---------+---------+---------+---------+---------+---------+---------+ | POSTHER | [id number] | | Active | | Lauranc | | Posther | | | 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 | (SNOMED | | | | Lila | | neuralg | | | IA | CT) | | | | MD | | ia | | +---------+---------+---------+---------+---------+---------+---------+---------+---------+ | DIZZINE | [id number] | | Removed | | Lauranc | | Dizzine | | | SS | 03 | /08 | | /08 | e W | | ss | | | | (SNOMED | | | | Lila | | | | | | CT) | | | | MD | | | | +---------+---------+---------+---------+---------+---------+---------+---------+---------+ | DEHYDRA | [id number] | | Removed | | Lauranc | | Dehydra | | | TION | 6 | /08 | | /08 | e W | | tion | | | | (SNOMED | | | | Lila | | | | | | CT) | | | | MD | | | | +---------+---------+---------+---------+---------+---------+---------+---------+---------+ | DIABETE | [id number] | | Removed | | Lauranc | [...] | | | +---------+---------+---------+---------+---------+---------+---------+---------+---------+ | HYPERTE | [id number] | | Active | | Lauranc | [...] 1 TAB | | | BUSPIRONE | [id number] | Kali | | HCL 7.5 MG | three | | | HCL | 1 | Palacio DPM | | TABS | times per | | | | | | | | day | | | | | | + + + + + + + + | LANTUS 100 | 25 units | | | INSULIN | 8073597966 | Jesus | | UNIT/ML | two [...] two times | | | MECLIZINE | 8029388259 | Laurance W | | HCL 25 MG | per day | | | HCL | 0 | Lila MD | | TABS | | | | | | | + + + + + + + + | MECLIZINE | One tab by | | | MECLIZINE | 5409757830 | Laurance W | | HCL 25 [...] 1 tab | | | PREGABALIN | 5321781844 | Ambrose | | MG CAPS | three | | | | 8 | Ankur DNP | | | times per | | | | | DIE FINISHER FORGING | | | day. Pt | | | | | | | | states as | | | | | | | | needed | | | | | | + + + + + + + + | PROMETHAZI | Take one | | | PROMETHAZI | 8026019009 | Edna | | NE HCL 25 [...] 3U before | | | INSULIN | 8442080390 | Scarlett | | 100 | lunch [...] POTASSIUM | | | | POTASSIUM | [id number] | Kali | | CHLORIDE | | | | CHLORIDE | 1 | Palacio DPM | | ER 10 MEQ | | | | | | | | CR-CAPS | | | | | | | + + + + + + + + | DULOXETINE | 1 tab one | | | DULOXETINE | 4179135946 | Bailey W | | HCL 30 MG | time per | | | HCL | 6 | Lila MD | | CPEP | day | | | | | | + + + + + + + + | PROCHLORPE | Insert one | | | PROCHLORPE | 1102226796 | Edna | | RAZINE 25 | [...] Use daily | | | INSULIN | 8546323378 | Ambrose | | NEEDLE | to inject | | | PEN NEEDLE | 0 | Ankur DNP | | ULTRAFINE | insulin | | | | | DIE FINISHER FORGING | | 29G X | | | | | | | | 12.7MM | | | | | | | + + + + + + + + | DRAMAMINE | take 1-2 | | | TAYLER | 6791964355 | Christen Ramirez | | 50 MG TABS | tabs 4 | | | MARCELA | 2 | Raumakita | | | times per | | | | | DIE FINISHER FORGING | | | day as | | | | | | | | needed | | | | | | + + + + + + + + | VICTOZA 18 | | | | LIRAGLUTID | 0071817323 | Jesus | | MG/3ML | | [...] | | | | * | | DIE FINISHER FORGING | + + + + + + + + | BASAGLAR | 1 pen | | | INSULIN | 3592129030 | Christen Ramirez | | KWIKPEN | every 3 | | | GLARGINE | 9 | Raumakita | | 100 | days 56 | | | | | DIE FINISHER FORGING | | UNIT/ML | units q | [...] by mouth | | | MECLIZINE | 1701494640 | Bailey W | | HCL 25 [...] mix and | | | NA | 9854231690 | Maulik | | BOWEL PREP | [...] take 2 | | | GABAPENTIN | 7856170609 | Bailey W | | 300 MG [...] Inject 0.6 | | | LIRAGLUTID | [id number] | Christen Ramirez | | MG/3ML | mg daily | | | E | 2 | Raumakita | | SOPN | | | | | | DIE FINISHER FORGING | + + + + + + + + | ONDANSETRO | 1 tab | | | ONDANSETRO | 5389435679 | Kali | | N HCL 4 MG | every 4 | | | N HCL | 3 | Palacio DPM | | TABS | hours | | | | | | + + + + + + + + | VICTOZA 18 | | | | LIRAGLUTID | 7882136581 | Bailey W | | MG/3ML | [...] 1 tab | | | GABAPENTIN | 5806698768 | Jesus | | 300 MG | po tid . | | | | 4 | Ethan MD | | CAPS | Pt states | | | | | | | | as needed | | | | | | + + + + + + + + | COLACE 100 | 1 tab by | | | DOCUSATE | [id number] | Kali | | MG CAPS | mouth | | | SODIUM | 0 | Palacio DPM | | | daily at | | | | | | | | bedtime | | | | | | + + + + + + + + | CLONAZEPAM | Take one | | | CLONAZEPAM | 3906700428 | Edna | | 0.5 MG | [...] | | | | | | | DIE FINISHER FORGING | + + + + + + + + | ASPIRIN | take 1 | | | ASPIRIN | 6785975922 | Rogers | | 325 MG | [...] per | | | FOOT CARE | 0518611799 | Ambrose | | INSOLES | custom | | | PRODUCTS | 1 | Ankur DNP | | | fit from | | | | | DIE FINISHER FORGING | | | podiatry | | | | | | | | Dx. | | | | | | | | E11.65, | | | | | | | | e11.21 | | | | | | + + + + + + + + | LYRICA 50 | 1 tab | | | PREGABALIN | 2554841968 | Bailey W | | MG CAPS | three | | | | 8 | Lila MD | | | times per | | | | | | | | day | | | | | | + + + + + + + + | GLUCOPHAGE | 1 tab one | | | METFORMIN | 0004264805 | Bailey W | | XR 500 MG | time per | | | HCL | 3 | Lila MD | | [id number] | day | | | | | | + + + + + + + + | HUMALOG | BS <150 - | | | INSULIN | 8307401659 | Christen Ramirez | | 100 | No insulin | | | LISPRO | 1 | Raum[place]ita | | UNIT/ML | BS | | | (HUMAN) | | DIE FINISHER FORGING | | SOLN | 150-200 | | [...] Use 5 | | | INSULIN | 5139177389 | Ambrose | | SYRINGE | times | | | SYRINGE-NE | 1 | Ankur DNP | | ULTRAFINE | daily to | | | EDLE U-100 | | DIE FINISHER FORGING | | 29G X /" | inject [...] 50 units | | | INSULIN | 4148528532 | Pako | | UNIT/ML | once per | | | GLARGINE | 3 | Middlekauf | | SOLN | day. Pt | | | | | f DIE FINISHER FORGING | | | states she | | [...] | | | | | | | DIE FINISHER FORGING | + + + + + + + + | NITROFURAN | Take one | | | NITROFURAN | 1572181759 | Edna | | TOIN | capsule [...] Use daily | | | GLUCOSE | 5017410006 | Ambrose | | BLOOD | to check | | | BLOOD | 4 | Ankur DNP | | GLUCOSE | blood | | | | | DIE FINISHER FORGING | | TEST STRP | sugar | | | | | | + + + + + + + + | ERGOCALCIF | One | | | ERGOCALCIF | 0049221625 | Mariano | | QUANG 97408 | capsule by | | | QUANG [...] take 2 | | | GABAPENTIN | 3113573537 | Mariano | | 300 MG | [...] 10ml QAM | | | METFORMIN | 0446885972 | Mariano | | MG/5ML | Liquid due | | | HCL | 1 | Ariella | | ANGYN | to | | | | | CCMA | | | Dysphagia | | | | | | + + + + + + + + | ASPIRIN EC | take 1 | | | ASPIRIN | 4226184291 | Rogers | | 325 MG | tablet | | | | 1 | Laith MD | | TBEC | daily | | | | | | + + + + + + + + | RELION | Use to | | | GLUCOSE | 9815712365 | Kali | | BLOOD | test BG | | | BLOOD | 4 | Palacio DPM | | GLUCOSE | one time | | | | | | | TEST STRP | per day | | | | | | + + + + + + + + | NITROFURAN | | | | NITROFURAN | 6668347506 | Edna | | TOIN | | [...] one tablet | | | DOCUSATE | 1454568490 | Laurance W | | MG CAPS | by mouth | | | SODIUM | 0 | Lila MD | | | at bedtime | | | | | | + + + + + + + + | BACTRIM DS | 1 by mouth | | | TRIMETHOPR | 3165383523 | Laurance W | | 800-160 | twice a | | | IM-SULFAME | 1 | Lila MD | | MG TABS | day for 3 | | | THOXAZOLE | | | | | days | | | | | | + + + + + + + + | RELION PEN | | | | INSULIN | 0369520130 | Ambrose | | NEEDLES | | | | PEN NEEDLE | 4 | Ankur DNP | | 31G X 8 MM | | | | | | DIE FINISHER FORGING | + + + + + + + + | VICTOZA 18 | .6 mg x 1 | | | LIRAGLUTID | 3949197272 | Ambrose | | MG/3ML | week then | | | E | 2 | Ankur DNP | | SOPN | 1.2 mg | | | | | DIE FINISHER FORGING | | | daily per | | | | | | | | week | | | | | | + + + + + + + + | ASPIRIN 81 | one time | | | ASPIRIN | 6128430970 | Mariano | | MG ORAL | [...] | | | | | | | DIE FINISHER FORGING | + + + + + + + + | DIABETIC | 1 pair per | | | DIABETIC | | [facility]rose | | ORTHOTIC | custom | | | ORTHOTIC | | Ankur DNP | | SHOES | fit from | | | SHOES | | DIE FINISHER FORGING | | | podiatry | | | | | | | | E11.65, | | | | | | | | e11.21 | | | | | | + + + + + + + + | GABAPENTIN | two times | | | GABAPENTIN | 0340828472 | Mariano | | 100 MG | per day | | | | 1 | Ariella | | CAPS | | | | | | CCMA | + + + + + + + + | MISC | | | | MISC | | Ambrose | | | | | | | | Ankur DNP | | | | | | | | DIE FINISHER FORGING | + + + + + + + + | BIOTIN 1 | | | | BIOTIN | 1744531415 | Kali | | MG CAPS | | | | | 2 | Palacio DPM | + + + + + + + + | PIOGLITAZO | Take 1 tab | | | PIOGLITAZO | 0332323505 | Jesus | | NE HCL 15 [...] two times | | | MECLIZINE | 7590556100 | Mariano | | HCL 25 MG [...] take 1 | | | ASPIRIN | 0744004877 | Mariano | | 325 MG | tablet | | | | 1 | Ariella | | TBEC | daily | | | | | CCMA | + + + + + + + + | PIOGLITAZO | Take 1 tab | | | PIOGLITAZO | 7016065520 | Christen Ramirez | | NE HCL 15 | by mouth | | | NE HCL | 6 | Raum[place]ita | | MG TABS | one time | | | | | DIE FINISHER FORGING | | | per day in | | | | | | | | the AM | | | | | | + + + + + + + + | NEURONTIN | take 1 tab | | | GABAPENTIN | 5715916740 | Bailey W | | 300 MG | po tid | | | | 4 | Lila MD | | CAPS | | | | | | | + + + + + + + + | DIOVAN 160 | one time | | | VALSARTAN | 9847630933 | Mariano | | MG TABS | per day | | | | 4 | Ariella | | | | | | | | CCMA | + + + + + + + + | ASPIRIN | take 1 | | | ASPIRIN | 3690334442 | Franciscoance W | | 325 MG [...] 1 pill | | | CEPHALEXIN | 8919242000 | Tiesha | | MG CAPS | twice a | | | | 1 | Maria Isabel MD | | | day for 7 | | | | | | | | days | | | | | | + + + + + + + + | GABAPENTIN | one tablet | | | GABAPENTIN | 7601983714 | Franciscoance W | | 100 MG [...] 1 tab | | | MECLIZINE | 9440506267 | Laurance W | | HCL 25 MG | three | | | HCL | 0 | Lila MD | | TABS | times per | | | | | | | | day | | | | | | + + + + + + + + | NITROFURAN | Take one | | | NITROFURAN | 9528352197 | Edna | | TOIN | capsule [...] 0.02 ml | | | EXENATIDE | 7478578127 | Laurance W | | MCG PEN 5 | injection | | | | 1 | Lila MD | | MCG/0.02ML | two times | | | | | | | SOPN | per day | | | | | | + + + + + + + + | FLUCONAZOL | take one | | | FLUCONAZOL | 1833705055 | Franciscoance W | | E 150 MG | tablet PO | | | E | 1 | Lila MD | | TABS | x 1 repeat | | | | | | | | in 3 days | | | | | | + + + + + + + + | PROCHLORPE | Insert one | | | PROCHLORPE | 1679155942 | Ambrose | | RAZINE 25 | | | | RAZINE | 0 | Ankur DNP | | MG SUPP | suppositor | | | | | DIE FINISHER FORGING | | | y rectally | | [...] tab two | | | CILOSTAZOL | 7621103526 | Kali | | 100 MG | times per | | | | 1 | Palacio DPM | | TABS | day | | | | | | + + + + + + + + | RIOMET 500 | 10ml's two | | | METFORMIN | 8942043221 | Laurance W | | MG/5ML | [...] D | | | | CHOLECALCI | 3197189850 | Kali | | 1000 UNIT | | | | FEROL | 1 | Palacio DPM | | TABS | | | | | | | + + + + + + + + | NEURONTIN | take 1 tab | | | GABAPENTIN | 7932367300 | Christen Ramirez | | 300 MG | po tid . | | | | 4 | Raum[place]ita | | CAPS | Pt states | | | | | DIE FINISHER FORGING | | | as needed | | | | | | + + + + + + + + | BYETTA 5 | Take as | | | EXENATIDE | 6876128862 | Christen Ramirez | | MCG PEN 5 | directed | | | | 1 | Raum[place]ita | | MCG/0.02ML | once daily | | | | | DIE FINISHER FORGING | | SOPN | in the AM | | | | | | + + + + + + + + | STROKE | | | | STROKE | | Bailey W | | PREVENTION | | | | PREVENTION | | Lial MD | | | | | | | | | + + + + + + + + | METFORMIN | two times | | | METFORMIN | 4485443225 | Mariano | | HCL 1000 | per day | | | HCL | 5 | Ariella | | MG TABS | | | | | | CCMA | + + + + + + + + | GABAPENTIN | Take 2 | | | GABAPENTIN | 8340319862 | Bailey W | | 300 MG [...] | | | | | | | DIE FINISHER FORGING | + + + + + + + + | LYRICA 50 | TAKE ONE | | | PREGABALIN | 9371225649 | Kesha | | MG CAPS | [...] Take one | | | BIOTIN | 7801075834 | Lorri | | MG CAPS | daily in | | | | 2 | Prabhakar | | | the AM | | | | | NCMA | + + + + + + + + | BD INSULIN | Use to | | | INSULIN | 0448880161 | Ambrose | | SYRINGE | inject | | | SYRINGE-NE | 6 | Ankur DNP | | ULTRAFINE | insulin 5 | | | EDLE U-100 | | DIE FINISHER FORGING | | 29G X /2" | times per | | | | | | | 0.5 ML | day | | | | | | + + + + + + + + | RELION | Use to | | | GLUCOSE | 0471740229 | Ambrose | | BLOOD | check | | | BLOOD | 4 | Ankur DNP | | GLUCOSE | blood | | | | | DIE FINISHER FORGING | | TEST STRP | sugars | [...] use with | | | BLOOD | 8743688947 | Ambrose | | PRIME | test | | | GLUCOSE | 2 | Ankur DNP | | MONITOR | strips to | | | MONITORING | | DIE FINISHER FORGING | | DYLAN | test BG | | | SUPPL | | | | | daily | | | | | | + + + + + + + + | RELION | use when | | | GLUCOSE | 3647099345 | Ambrose | | BLOOD | testing BG | | | BLOOD | 4 | Ankur DNP | | GLUCOSE | | | | | | DIE FINISHER FORGING | | TEST STRP | | | | | | | + + + + + + + + | VALSARTAN | Take one | | | VALSARTAN | 2228021880 | Ambrose | | 160 MG | tablet | | | | 7 | Ankur DNP | | TABS | daily in | | | | | DIE FINISHER FORGING | | | the AM | | | | | | + + + + + + + + | BASAGLAR | 68 Units | | | INSULIN | 6292633886 | Ambrose | | KWIKPEN | every | | | GLARGINE | 9 | Ankur DNP | | 100 | morning | | | | | DIE FINISHER FORGING | | UNIT/ML | (34 units | | | | | | | SOPN | on each | | | | | | | | side) | | | | | | + + + + + + + + | NOVOLOG | 12 Units | | | INSULIN | 0318347592 | Ambrose | | 100 | before | | | ASPART | 1 | Ankur DNP | | UNIT/ML | meals | | | | | DIE FINISHER FORGING | | SOLN | [id number] | | [...] 65 Units | | | INSULIN | 3731782932 | Ambrose | | KWIKPEN | every | | | GLARGINE | 9 | Ankur DNP | | 100 | morning | | | | | DIE FINISHER FORGING | | UNIT/ML | | | | | | | | SOPN | | | | | | | + + + + + + + + | BASAGLAR | 60 Units | | | INSULIN | 8069471248 | Ambrose | | KWIKPEN | every | | | GLARGINE | 9 | Ankur DNP | | 100 | morning | | | | | DIE FINISHER FORGING | | UNIT/ML | | | | | | | | SOPN | | | | | | | + + + + + + + + | MIRALAX | 17 gm | | | POLYETHYLE | 5083900246 | Ambrose | | POWD | daily | | | NE GLYCOL | 2 | Ankur DNP | | | stirred | | | 3350 | | DIE FINISHER FORGING | | | into 4-8 | | [...] 1 pill | | | DOCUSATE | 8968142353 | Ambrose | | MG CAPS | twice | | | SODIUM | 0 | Ankur DNP | | | daily for | | | | | DIE FINISHER FORGING | | | soft | | | | | | | | stools | | | | | | + + + + + + + + | LYRICA 100 | 1 capsule | | | PREGABALIN | 7573604826 | Ambrose | | MG CAPS | three | | | | 8 | Ankur DNP | | | times | | | | | DIE FINISHER FORGING | | | daily for | | | | | | | | neuropathy | | | | | | + + + + + + + + | LIPITOR 20 | take 1 | | | ATORVASTAT | 9129458559 | Ambrose | | MG TABS | tablet by | | | IN CALCIUM | 3 | Ankur DNP | | | mouth | | | | | DIE FINISHER FORGING | | | daily in | | | | | | | | the | | | | | | | | evening | | | | | | + + + + + + + + | GLIPIZIDE | Take 1 | | | GLIPIZIDE | 2065565388 | Ambrose | | XL 2.5 MG | tablet | | | | 1 | Ankur DNP | | [id number] | p.o. | | | | | DIE FINISHER FORGING | | | q.a.m. | | | | | | + + + + + + + + | OMEPRAZOLE | Take one | | | OMEPRAZOLE | 0277984918 | Ambrose | | 40 MG | by mouth | | | | 0 | Ankur DNP | | CPDR | one time | | | | | DIE FINISHER FORGING | | | per day | | [...] tab by | | | MECLIZINE | 0381782275 | Ambrose | | HCL 25 MG | mouth | | | HCL | 0 | Ankur DNP | | TABS | three | | | | | DIE FINISHER FORGING | | | times per | | | | | | | | day | | | | | | + + + + + + + + | PLAVIX 75 | 1 tab by | | | CLOPIDOGRE | 8365315399 | Ambrose | | MG TABS | mouth one | | | L | 1 | Ankur DNP | | | time per | | | BISULFATE | | DIE FINISHER FORGING | | | day in the | | | | | | | | evening | | | | | | + + + + + + + + | VITAMIN D | Take one | | | CHOLECALCI | 6466553117 | Ambrose | | 1000 UNIT | tablet | | | FEROL | 1 | Ankur DNP | | TABS | daily in | | | | | DIE FINISHER FORGING | | | the AM | | | | | | + + + + + + + + | PANTOPRAZO | Take one | | | PANTOPRAZO | 0167818372 | Ambrose | | LE SODIUM | tablet by | | | LE SODIUM | 8 | Ankur DNP | | 40 MG TBEC | mouth once | | | | | DIE FINISHER FORGING | | | daily | | | | | | + + + + + + + + | LASIX 80 | 1 tab by | | | FUROSEMIDE | 9958635116 | Ambrose | | MG TABS | mouth one | | | | 5 | Ankur DNP | | | time per | | | | | DIE FINISHER FORGING | | | day in the | | | | | | | | AM | | | | | | + + + + + + + + | POTASSIUM | Take one | | | POTASSIUM | 9905297682 | Ambrose | | CHLORIDE | cap daily | | | CHLORIDE | 1 | Ankur DNP | | ER 10 MEQ | in the AM | | | | | DIE FINISHER FORGING | | CR-CAPS | | | | | | | + + + + + + + + | BD PEN | Use daily | | | INSULIN | 7991815964 | Ambrose | | NEEDLE | to inject | | | PEN NEEDLE | 0 | Ankur DNP | | ULTRAFINE | insulin | | | | | DIE FINISHER FORGING | | 29G X | | | | | | | | 12.7MM | | | | | | | + + + + + + + + | BD INSULIN | Use 5 | | | INSULIN | 7473246529 | Ambrose | | SYRINGE | times | | | SYRINGE-NE | 1 | Ankur DNP | | ULTRAFINE | daily to | | | EDLE U-100 | | DIE FINISHER FORGING | | 29G X 1/2" | inject [...] Take one | | | BIOTIN | 4469644083 | Ambrose | | MG CAPS | daily in | | | | 2 | Ankur DNP | | | the AM | | | | | DIE FINISHER FORGING | + + + + + + + + | COLACE 100 | 1 pill BID | | | DOCUSATE | 4096326919 | Ambrose | | MG CAPS | | | | SODIUM | 0 | Ankur DNP | | | | | | | | DIE FINISHER FORGING | + + + + + + + + | NYSTATIN-T | Apply thin | | | NYSTATIN-T | 8035195032 | Ambrose | | RIAMCINOLO | layer to | | | RIAMCINOLO | 5 | Ankur DNP | | NE | affected | | | NE | | DIE FINISHER FORGING | | 946841-2.1 | area BID | | | | | | | UNIT/GM-% | prn for | | | | | | | CREA | itching | | | | | | + + + + + + + + | RELION PEN | | | | INSULIN | 2030561038 | David | | NEEDLES | | | | PEN NEEDLE | 4 | Mark DO | | 31G X 8 MM | | | | | | | + + + + + + + + | NOVOLOG | 3U before | | | INSULIN | 1254376387 | David | | 100 | lunch [...] 56 Units | | | INSULIN | 0470487910 | David | | GRACEIKPEN | every [...] 1 tid | | | PREGABALIN | 4347600461 | Christen Escudero. | | MG CAPS | | | | | 8 | Raumakita | | | | | | | | DIE FINISHER FORGING | + + + + + + + + | LYRICA 100 | 1 tab | | | PREGABALIN | 2296333063 | Christen Ramirez | | MG CAPS | three | | | | 8 | Raum[place]ita | | | times per | | | | | DIE FINISHER FORGING | | | day. Pt | | | | | | | | states as | | | | | | | | needed | | | | | | + + + + + + + + | VICTOZA 18 | .6 mg x 1 | | | LIRAGLUTID | 4000546029 | Christen Ramirez | | MG/3ML | week then | | | E | 2 | Raumakita | | SOPN | 1.2 mg | | | | | DIE FINISHER FORGING | | | daily per | | | | | | | | week | | | | | | + + + + + + + + | HUMALOG | 3U before | | | INSULIN | 6278388588 | Christen Ramirez | | 100 | lunch and | | | LISPRO | 1 | Raumakita | | UNIT/ML | 5U before | | | | | DIE FINISHER FORGING | | SOLN | Dinner | | [...] Inject 0.6 | | | LIRAGLUTID | 7343171121 | Christen Ramirez | | MG/3ML | mg daily | | | E | 2 | Raumakita | | SOPN | | | | | | DIE FINISHER FORGING | + + + + + + + + | BASAGLAR | 56 Units | | | INSULIN | 8322138323 | Christen Ramirez | | KWIKPEN | by mouth | | | GLARGINE | 9 | Raumakita | | 100 | every | | | | | DIE FINISHER FORGING | | UNIT/ML | morning | | | | | | | SOPN | | | | | | | + + + + + + + + | VICTOZA 18 | 5 unit AM | | | LIRAGLUTID | 1122474468 | Christen Ramirez | | MG/3ML | and 5 | | | E | 2 | Raumakita | | SOPN | units PM | | | | | DIE FINISHER FORGING | + + + + + + + + | BASAGLAR | 1 pen | | | INSULIN | 3495049983 | Christen Ramirez | | KWIKPEN | every 3 | | | GLARGINE | 9 | Raumakita | | 100 | days 56 | | | | | DIE FINISHER FORGING | | UNIT/ML | units q | | | | | | | SOPN | Day | | | | | | + + + + + + + + | BYETTA 5 | Take as | | | EXENATIDE | 1012923745 | Christen Ramirez | | MCG PEN 5 | directed | | | | 1 | Raumakita | | MCG/0.02ML | once daily | | | | | DIE FINISHER FORGING | | SOPN | in the AM | | | | | | + + + + + + + + | LANTUS 100 | 56 units | | | INSULIN | 7683343420 | Kaykay | | UNIT/ML | qAM | | | GLARGINE | 3 | Mora DO | | SOLN | | | | | | | + + + + + + + + | SUPREP | mix and | | | NA | 3109736261 | Emeka | | BOWEL PREP | [...] <150 - | | | INSULIN | 9235072253 | Tiesha | | 100 | No [...] Use daily | | | GLUCOSE | 6087612143 | Tiesha | | BLOOD | to check | | | BLOOD | 4 | Gillett MD | | GLUCOSE | blood | | | | | | | TEST STRP | sugar | | | | | | + + + + + + + + | DIABETIC | 1 pair per | | | DIABETIC | | Tiesha | | ORTHOTIC | custom | | | ORTHOTIC | | Gillett MD | | SHOES | fit from | | | SHOES | | | | | podiatry | | | | | | | | E11.65, | | | | | | | | e11.21 | | | | | | + + + + + + + + | DIABETIC | 1 pair per | | | FOOT CARE | 1782263082 | Tiesha | | INSOLES | custom [...] 1 pill | | | CEPHALEXIN | 9035201572 | Pako | | MG CAPS | twice a | | | | 1 | Middlekauf | | | day for 7 | | | | | f DIE FINISHER FORGING | | | days | | | | | | + + + + + + + + | BYETTA 5 | 0.02 ml | | | EXENATIDE | [id number] | Laurance W | | MCG PEN 5 | injection | | | | 1 | Lila MD | | MCG/0.02ML | two times | | | | | | | SOPN | per day | | | | | | + + + + + + + + | LYRICA 100 | 1 tab | | | PREGABALIN | [id number] | Laurance W | | MG CAPS | three | | | | 8 | Lila MD | | | times per | | | | | | | | day | | | | | | + + + + + + + + | DRAMAMINE | take 1-2 | | | DIMENHYDRI | [id number] | Laurance W | | 50 MG [...] Use 5 | | | INSULIN | [id number] | Bailey W | | SYRINGE | [...] tab by | | | CLOPIDOGRE | [id number] | Bailey W | | MG TABS | mouth one | | | L | 1 | Lila MD | | | time per | | | BISULFATE | | | | | day | | | | | | + + + + + + + + | LANTUS 100 | 25 units | | | INSULIN | [id number] | Laurance W | | UNIT/ML | two times | | | GLARGINE | 3 | Lila MD | | SOLN | per day | | | | | | + + + + + + + + | LASIX 80 | 1 tab by | | | FUROSEMIDE | [id number] | Laurance W | | MG TABS | mouth one | | | | 5 | Lila MD | | | time per | | | | | | | | day | | | | | | + + + + + + + + | FUROSEMIDE | 1 tab one | | | FUROSEMIDE | [id number] | Laurance W | | 40 MG | time per | | | | 5 | Lila MD | | TABS | day | | | | | | + + + + + + + + | BUSPIRONE | 1 TAB | | | BUSPIRONE | 5590734114 | Laurance W | | HCL 7.5 MG | three | | | HCL | 1 | Lila MD | | TABS | times per | | | | | | | | day | | | | | | + + + + + + + + | COLACE 100 | 1 tab by | | | DOCUSATE | [id number] | Laurance W | | MG CAPS | mouth | | | SODIUM | 0 | Lila MD | | | daily at | | | | | | | | bedtime | | | | | | + + + + + + + + | BACTRIM DS | 1 by mouth | | | TRIMETHOPR | [id number] | Laurance W | | 800-160 | twice a | | | IM-SULFAME | 1 | Lila MD | | MG TABS | day for 3 | | | THOXAZOLE | | | | | days | | | | | | + + + + + + + + | LYRICA 50 | Take 1 tab | | | PREGABALIN | [id number] | Laurance W | | MG CAPS [...] tab one | | | METFORMIN | 5448868003 | Laurance W | | XR 500 MG | time per | | | HCL | 3 | Lila MD | | [id number] | day | | | | | | + + + + + + + + | CILOSTAZOL | 1 tab two | | | CILOSTAZOL | [id number] | Laurance W | | 100 MG | times per | | | | 1 | Lila MD | | TABS | day | | | | | | + + + + + + + + | OMEPRAZOLE | Take one | | | OMEPRAZOLE | 8803309008 | Laurance W | | 40 MG [...] take 1 | | | ATORVASTAT | [id number] | Laurance W | | MG TABS | tablet by | | | IN CALCIUM | 3 | Lila MD | | | mouth | | | | | | | | daily | | | | | | + + + + + + + + | MECLIZINE | 1 tab | | | MECLIZINE | [id number] | Laurance W | | HCL 25 MG | three | | | HCL | 0 | Lila MD | | TABS | times per | | | | | | | | day | | | | | | + + + + + + + + | LANTUS 100 | 56 units | | | INSULIN | [id number] | Laurance W | | UNIT/ML | in the | | | GLARGINE | 3 | Lila MD | | SOLN | morning | | | | | | + + + + + + + + | ONDANSETRO | 1 tab | | | ONDANSETRO | 0637518073 | Laurance W | | N HCL 4 MG | every 4 | | | N HCL | 3 | Lila MD | | TABS | hours | | | | | | + + + + + + + + | PIOGLITAZO | Take 1 tab | | | PIOGLITAZO | 3563939397 | Franciscoance W | | NE HCL 15 | by mouth | | | NE HCL | 6 | Lila MD | | MG TABS | one time | | | | | | | | per day | | | | | | + + + + + + + + | RELION | Use to | | | GLUCOSE | [id number] | Bailey W | | BLOOD | test BG | | | BLOOD | 4 | Lila MD | | GLUCOSE | one time | | | | | | | TEST STRP | per day | | | | | | + + + + + + + + | GABAPENTIN | Take 2 | | | GABAPENTIN | 8118378348 | Laurance W | | 300 MG [...] TAB one | | | VALSARTAN | 5133032815 | Bailey W | | 160 MG | time per | | | | 8 | Lila MD | | TABS | day | | | | | | + + + + + + + + | LYRICA 50 | TAKE ONE | | | PREGABALIN | [id number] | Laurance W | | MG CAPS [...] 0.2 ml | | | EXENATIDE | [id number] | Laurance W | | MCG PEN 5 | injection | | | | 1 | Lila MD | | MCG/0.02ML | two times | | | | | | | SOPN | per day | | | | | | + + + + + + + + | VICTOZA 18 | 1.2 mg | | | LIRAGLUTID | [id number] | Laurance W | | MG/3ML | injected | | | E | 2 | Lila MD | | SOPN | martin | | | | | | + + + + + + + + | KEFLEX 500 | one po TID | | | CEPHALEXIN | 2320073594 | Susanna | | MG CAPS | | | | | 1 | Gianfranco MD | + + + + + + + + | FLUCONAZOL | take one | | | FLUCONAZOL | 4745988236 | Susanna | | E 150 MG | tablet PO | | | E | 1 | Gianfranco MD | | TABS | x 1 repeat | | | | | | | | in 3 days | | | | | | + + + + + + + + | LYRICA 50 | 1 tab | | | PREGABALIN | [id number] | Bailey W | | MG CAPS | three | | | | 8 | Lila MD | | | times per | | | | | | | | day | | | | | | + + + + + + + + | GABAPENTIN | Take 2 | | | GABAPENTIN | [id number] | Bailey W | | 300 MG [...] tab one | | | DULOXETINE | [id number] | Laurance W | | HCL 30 MG | time per | | | HCL | 6 | Lila MD | | CPEP | day | | | | | | + + + + + + + + | RIOMET 500 | 10ml's two | | | METFORMIN | [id number] | Laurance W | | MG/5ML | [...] TAB one | | | VALSARTAN | [id number] | Laurance W | | MG TABS | time per | | | | 4 | Lila MD | | | day | | | | | | + + + + + + + + | MECLIZINE | One tab by | | | MECLIZINE | [id number] | Laurance W | | HCL 25 [...] take 2 | | | GABAPENTIN | [id number] | Laurance W | | 300 MG [...] tab one | | | VALSARTAN | [id number] | Laurance W | | MG TABS | time per | | | | 4 | Lila MD | | | day | | | | | | + + + + + + + + | VICTOZA 18 | 0.6 mg | | | LIRAGLUTID | [id number] | Laurance W | | MG/3ML | [...] tab one | | | SITAGLIPTI | [id number] | Laurance W | | 100 MG | time per | | | N | 2 | Lila MD | | TABS | day | | | PHOSPHATE | | | + + + + + + + + | GABAPENTIN | 2 tabs two | | | GABAPENTIN | [id number] | Laurance W | | 300 MG | times per | | | | 5 | Lila MD | | CAPS | day | | | | | | + + + + + + + + | DIOVAN 160 | 1 by mouth | | | VALSARTAN | [id number] | Laurance W | | MG TABS | every day | | | | 4 | Lila MD | + + + + + + + + | GABAPENTIN | 1 tab at | | | GABAPENTIN | [id number] | Laurance W | | 100 MG [...] 28 units | | | INSULIN | [id number] | Laurance W | | UNIT/ML | two times | | | GLARGINE | 3 | Lila MD | | SOLN | per day | | | | | | + + + + + + + + | LISINOPRIL | take 1 | | | LISINOPRIL | [id number] | Rogers | | 20 MG | tablet by | | | | 1 | Laith LUIS | | TABS | mouth | | | | | | | | daily | | | | | | + + + + + + + + | LANTUS 100 | 56 units | | | INSULIN | [id number] | Bailye W | | UNIT/ML | daily | | | GLARGINE | 3 | Lila MD | | SOLN | | | | | | | + + + + + + + + | GABAPENTIN | 1 by mouth | | | GABAPENTIN | [id number] | Bailey W | | 100 MG [...] | One | | | ERGOCALCIF | [id number] | Laurance W | | QUANG 00712 | capsule by | | | QUANG [...] by mouth | | | LISINOPRIL | [id number] | Laurance W | | 5 MG TABS | one time | | | | 1 | Lila MD | | | per day | | | | | | + + + + + + + + | RIOMET 500 | 10ml QAM | | | METFORMIN | 3328066267 | Laurance W | | MG/5ML | Liquid due | | | HCL | 1 | Lila MD | | SOLN | to | | | | | | | | Dysphagia | | | | | | + + + + + + + + | COLACE 100 | one tablet | | | DOCUSATE | [id number] | Laurance W | | MG CAPS | by mouth | | | SODIUM | 0 | Lila MD | | | at bedtime | | | | | | + + + + + + + + | MECLIZINE | 1 by mouth | | | MECLIZINE | 8689447735 | Laurance W | | HCL 25 [...] one tablet | | | METFORMIN | [id number] | Laurance W | | HCL 1000 | by mouth | | | HCL | 5 | Lila MD | | MG TABS | twice a | | | | | | | | day | | | | | | + + + + + + + + | ASPIRIN 81 | 1 by mouth | | | ASPIRIN | [id number] | Laurance W | | MG ORAL | every day | | | | 5 | Lila MD | | TABLET | | | | | | | + + + + + + + + | GABAPENTIN | one tablet | | | GABAPENTIN | [id number] | Laurance W | | 100 MG [...] | | | | | | | DIE FINISHER FORGING | + + + + + + [...] | Rx Refill: eRx Request for INSULIN [id number] MIS | + + + +--------+ +---+---+---+ + | | ESM_RR | [id number] | | | B | e-scripts | | | | 82`INSULIN | | | | messenger | | | | | | | | refill | | | | [id number] | | | | request | | [...] | | | | | | | [id number] | | | | | | | | `[id number] | | | | | | | | 01``INSULI | | | | | | | | N | | | | | | | | [id number] | | | | | | | [...] [address], | | | | [place], [address], | | | | | + + + + | Appointment | 02:15 PM | Ambrose Pascual [facility], [address] | | | | [facility] [address], | | | | [place], [address], | | | | | + + + + | Referral | | Ophthalmology Consult | + + + + | Referral | | Orthopedic Consult | + + + + | Referral | | Physical Therapy Evaluation | | | | [facility], [address] | | | | [address] | | | | [address], [place], [address] | | | | | | | | | + + + + | Referral | | Physical Therapy Evaluation | | | | [facility], [address] | | | | [address] | | | | [address], [place], [address] | | | | | | | | | + + + + | Referral | | Podiatry Consult | | | | Hector Armendariz, | | | | [address] [facility] | | | | [address], [place], [place], | | | | [address] | | | | | + + + + | Referral | | Podiatry Consult | | | | Hector Armendariz, | | | | [address] [facility] | | | | [address], [place], [place], | | | | [address] | | | | | + + + + | Referral | | Ophthalmology Consult | | | | Huong Rose, | | | | [address] [facility] | | | | [place], [address] | | | | | + + + + | Referral | | Nephrology Evaluation | | | | Larry Galo, | | | | [address], | | | | [address], [place], [address] | | | | | | | | | + + + + | Referral | | Nephrology Evaluation | | | | Larry Galo, | | | | [address], | | | | [address], [place], [address] | | | | | | | | | + + + + | Referral | | Ophthalmology Consult | | | | Huong Rose, | | | | [address], [place], | | | | [place], [address] | | | | | + + + + | Referral | | MRA Head-WWO Con | | | | Dian Atkins, [address] | | | | [address] [place], | | | | [place], [address] | | | | | + + + + | Referral | | JUAN FRANCISCO Griffiths-PALMA Leigh | | | | Dian Milly, [address] | | | | [address] [place], | | | | [place], [address] | | | | | + + [...] | + + + + + | [id number] | Overweight | | | + + + + + | CPT-68474 | Adm 1st Inj No | | | | | counseling or >18 | | | + + + + + | CPT-82924 | Prevnar 13 | | | | | (Pneumococcal >7 | | | + + + + + | [id number] | Overweight | | | + + + + + | CPT-34107 | Glucose by monitor | | | + + + + + | [id number] | Overweight | | | + + + + + | [id number] | Overweight | | | + + + + + | [id number] | Overweight | | | + + + + + | CPT-63804 | IV infusion -1st hr | | | | | (Rehydration) | | | + + + + + | CPT-50333 | Glucose by monitor | | | + + + + + | CPT-95524 | UA Dipstick | | | + + + + + | CPT-61209 | DAISY Linick | | | + + + + + | CPT-27939 | Initial Psych | | | | | Evaluation | | | + + + + + | CPT-72461 | [facility], [address] or | | | | | more [address] | | | + + + + [...] | + + + + + | CPT-08013 | Trim Skin Lesions | | | | | [address] | | | + + + + + | CPT-65553 | UA Dipstick | | | + + + + + +---+ + | | Order excluded from report: | +---+ + + + + + + | VIT D HYDR 24850 | Vit D, 25 hydroxy | | [...]
--- OUTSIDE RECORDS SUMMARY | ~2019-03-25 | XMS | Continuity of Care Document ---
Demographics + + + | Address | [address] | | | [place] [address] | + + + | Home Phone | | + + + | Preferred Language | Unknown | + + + | Marital Status | Unknown | + + + | Druze Affiliation | Unknown | + + + | Race | Unknown | + + + | Ethnic Group | Unknown | + + + Author + + + | Author | [facility] | + + + | Organization | [facility] | + + + | Address | [address] | | | [place] [address] | + + + | Phone | | + + + Support + + + + + | Name | Relationship | Address | Phone | + + + + + | EVAN Pascual | Caregiver | [facility] | | | | | [place] [address] | | + + + + + | Nikolay Hackett MD | Caregiver | [address] | | | | | [facility] [place] | | | | | [address] | | + + + + + | DOLORES DIANA | Next Of Kin | [address] | | | | | [place] [address] | | + + + + + Care Team Providers + + + + | Care Annealing Operator Name | Role | Phone | + + + + | EVAN Pascual | Talita | | + + + + Insurance Providers + + + + + | Payer Name | Policy Number | Subscriber Name | Relationship | + + + + + | [employer] | [id number] | JULI DIANA | SELF | | CLAIMS | | | | + + + + + | [employer] | [id number] | JULI DIANA | SELF | | PPO | | | | + + + + + Chief Complaint and Reason for Visit + +----+ | Reason for Visit | CP | + +----+ Problems Active Medical Problems + + + [...] | 100 | MG | ORAL | Daily | | | | | Sodium | | | | | | | | | (Colace) | [...] +-------+ + + + + + | Nitrofur | 100 | MG | ORAL | Twice | 14 | | 02/16/18 | | antoin/N | | | | Each Day | | | | | itrofura | | | | | | | | | n Mac | | | | | | | | | (Macrobi | | | | | | | | | d) 100 | | | | | | [...] | + + + + + | [place], Disposable | | Unknown | Discontinued | [...] | Tab.elizabeth | | | | | Hawa, 1 [...] + + + | Discharge Date | 02/16/18 | + + + | Disposition | HOME | + + + | Condition at Discharge | Fair | + + + | Instructions/Education Provided | Nonspecific Chest Pain | | | Urinary Tract Infection | | | Hyperglycemia | + + + | Forms Provided | ARCHITRAVE CONSENT | + + + | Prescriptions | See Medications Section | + + + | Referrals | Ambrose Pascual BLOOD BANK SUPERVISOR - | + + + Functional Status No functional status results. Allergies, Adverse Reactions, Alerts + +---------+ + +--------+ + | Allergen | Type | Severity | Reaction | Status | Last Updated | + +---------+ + +--------+ + | hydrocodone | Allergy | Mild | HALLUCINATIO | Active | 02/16/18 | | bit | | | NS | | | + +---------+ + +--------+ + | lisinopril | Allergy | Unknown | | Active | 02/16/18 | + +---------+ + +--------+ + | morphine | Allergy | Mild | HALLUCINATIO | Active | 02/16/18 | | | | | N | | | + +---------+ + +--------+ + | ciprofloxaci | Allergy | Unknown | | Active | 02/16/18 | | n | | | | | | + +---------+ + +--------+ + Immunizations No Known History of Immunizations. Vital Signs + + + + | Vital Reading | Collection Date/Time | Result | + + + + | Blood Pressure | 02/16/18 11:30pm | 150/86 | + + + + | Blood Pressure Source | 05/01/15 10:30am | Left Arm | + + + + | Temperature | 02/16/18 8:52pm | 96.6 F | + + + + | Temperature Source | 02/16/18 8:52pm | Temporal | + + + + | Respiratory Rate | 02/16/18 11:30pm | 14 | + + + + | Pulse Rate | 02/16/18 11:30pm | 84 | + + + + | Bedside Pulse Oximetry | 02/16/18 11:30pm | 99 | + + + + | Height | 18 8:52pm | 5 ft 0 in | + + + + | Height | 18 8:52pm | 152.4 cm | + + + + | Weight | 18 8:52pm | 185 lb | + + + + | Weight | 18 8:52pm | 83.91 kg | + + + + | Body Mass Index | 02/16/18 8:52pm | 36.1 kg/m2 | + + + + Results [...] Urine | Clean | | | | 02/16/18 | 02/16/18 | | | Source | Catch | | | | 10:20pm | 10:33pm | | + + + +-------+ + + + + | Urine | Yellow | | | P-Yellow | 02/16/18 | 02/16/18 | | | Color | | | | | 10:20pm | 10:33pm | | + + + +-------+ + + + + | Urine | Clear | | | Clear | 02/16/18 | 02/16/18 | | | Appearan | | | | | 10:20pm | 10:33pm | | | ce | | | | | | | | + + + +-------+ + + + + | Urine | 1.010 | | | 1.003-1. | 02/16/18 | 02/16/18 | | | Specific | | | | 022 | 10:20pm | 10:33pm | | | Cullen | | | | | | | | + + + +-------+ + + + + | Urine pH | 5.0 | | | 5.0-8.0 | 02/16/18 | 02/16/18 | | | | | | | | 10:20pm | 10:33pm | | + + + +-------+ + + + + | Urine | 1+ | | * | Neg | 02/16/18 | 02/16/18 | | | Leukocyt | | | | | 10:20pm | 10:33pm | | | e | | | | | | | | | Esterase | | | | | | | | + + + +-------+ + + + + | Urine | Neg | | | Neg | 02/16/18 | 02/16/18 | | | Nitrite | | | | | 10:20pm | 10:33pm | | + + + +-------+ + + + + | Urine | 1+ | | * | Neg | 02/16/18 | 02/16/18 | | | Protein | | | | | 10:20pm | 10:33pm | | + + + +-------+ + + + + | Urine | 3+ | | * | Neg | 02/16/18 | 02/16/18 | | | Glucose | | | | | 10:20pm | 10:33pm | | + + + +-------+ + + + + | Urine | Neg | | | Neg | 02/16/18 | 02/16/18 | | | Ketones | | | | | 10:20pm | 10:33pm | | + + + +-------+ + + + + | Urine | NORM | | | Normal | 02/16/18 | 02/16/18 | | | Urobilin | | | | | 10:20pm | 10:33pm | | | ogen | | | | | | | | + + + +-------+ + + + + | Urine | Neg | | | Neg | 02/16/18 | 02/16/18 | | | Bilirubi | | | | | 10:20pm | 10:33pm | | | n | | | | | | | | + + + +-------+ + + + + | Urine | Neg | | | Neg | 02/16/18 | 18 | | | Blood | | | | | 10:20pm | 10:33pm | | + + + +-------+ + + + + | Urine | 2-5 | /hpf | | 0-5 | 18 | 18 | | | WBC | | | | | 10:20pm | 10:34pm | | + + + +-------+ + + + + | Urine | 0-2 | /hpf | | 0-2 | 02/16/18 | 02/16/18 | | | RBC | | | | | 10:20pm | 10:34pm | | + + + +-------+ + + + + | Urine | Few | /hpf | | Few | 02/16/18 | 02/16/18 | | | Squamous | | | | | 10:20pm | 10:34pm | | | | | | | | | | | | Epitheli | | | | | | | | | al Cells | | | | | | | | + + + +-------+ + + + + | Urine | Many | /hpf | * | None | 02/16/18 | 02/16/18 | | | Bacteria | | | | | 10:20pm | 10:34pm | | + + + +-------+ + + + + | Urine | Yes | | * | No | 02/16/18 | 02/16/18 | | | Culture | | | | | 10:20pm | 10:33pm | | | Indicate | | | | | | | | | d | | | | | | | | + + + +-------+ + + + + | White | 5.22 | K/mm3 | | 4.00-11. | 02/16/18 | 02/16/18 | | | Blood | | | | 30 | 9:30pm | 9:56pm | | | Count | | | | | | | | + + + +-------+ + + + + | Red | 4.03 | M/mm3 | | 3.80-5.2 | 02/16/18 | 02/16/18 | | | Blood | | | | 0 | 9:30pm | 9:56pm | | | Count | | | | | | | | + + + +-------+ + + + + | Hemoglob | 11.7 | g/dL | | 11.5-16. | 02/16/18 | 02/16/18 | | | in | | | | 0 | 9:30pm | 9:56pm | | + + + +-------+ + + + + | Hematocr | 36.8 | % | | 33.0-51. | 02/16/18 | 02/16/18 | | | it | | | | 0 | 9:30pm | 9:56pm | | + + + +-------+ + + + + | Mean | 91 | fL | | 80-100 | 02/16/18 | 02/16/18 | | | Corpuscu | | | | | 9:30pm | 9:56pm | | | lar | | | | | | | | | Volume | | | | | | | | + + + +-------+ + + + + | Mean | 29.0 | pg | | 26.0-34. | 02/16/18 | 02/16/18 | | | Corpuscu | | | | 0 | 9:30pm | 9:56pm | | | lar | | | | | | | | | Hemoglob | | | | | | | | | in | | | | | | | | + + + +-------+ + + + + | Mean | 31.8 | g/dL | | 31.5-36. | 02/16/18 | 02/16/18 | | | Corpuscu | | | | 5 | 9:30pm | 9:56pm | | | lar | | | | | | | | | Hemoglob | | | | | | | | | in | | | | | | | | | Concent | | | | | | | | + + + +-------+ + + + + | RDW | 46.5 | fL | H | 35.1-46. | 02/16/18 | 02/16/18 | | | Standard | | | | 3 | 9:30pm | 9:56pm | | | | | | | | | | | | Deviatio | | | | | | | | | n | | | | | | | | + + + +-------+ + + + + | RDW | 14.0 | % | | 11.7-14. | 02/16/18 | 02/16/18 | | | Coeffici | | | | 2 | 9:30pm | 9:56pm | | | ent of | | | | | | | | | Variatio | | | | | | | | | n | | | | | | | | + + + +-------+ + + + + | Platelet | 97 | K/mm3 | L | 150-400 | 02/16/18 | 02/16/18 | | | Count | | | | | 9:30pm | 9:56pm | | + + + +-------+ + + + + | Mean | 13.7 | fL | H | 9.1-12.4 | 02/16/18 | 02/16/18 | | | Platelet | | | | | 9:30pm | 9:56pm | | | Volume | | | | | | | | + + + +-------+ + + + + | Differen | Auto | | | | 02/16/18 | 02/16/18 | | | tial | | | | | 9:30pm | 10:16pm | | | Method | | | | | | | | + + + +-------+ + + + + | Neutroph | 66 | % | | 41-73 | 02/16/18 | 02/16/18 | | | ils (%) | | | | | 9:30pm | 10:16pm | | | (Auto) | | | | | | | | + + + +-------+ + + + + | Lymphocy | 19 | % | L | 21-46 | 02/16/18 | 02/16/18 | | | serge (%) | | | | | 9:30pm | 10:16pm | | | (Auto) | | | | | | | | + + + +-------+ + + + + | Monocyte | 8 | % | | 4-13 | 02/16/18 | 02/16/18 | | | s (%) | | | | | 9:30pm | 10:16pm | | | (Auto) | | | | | | | | + + + +-------+ + + + + | Eosinoph | 7 | % | H | 0-6 | 18 | 18 | | | ils (%) | | | | | 9:30pm | 10:16pm | | | (Auto) | | | | | | | | + + + +-------+ + + + + | Basophil | 0 | % | | 0-2 | 18 | 18 | | | s (%) | | | | | 9:30pm | 10:16pm | | | (Auto) | | | | | | | | + + + +-------+ + + + + | Immature | 0 | % | | 0-1 | 02/16/18 | 18 | | | | | | | | 9:30pm | 10:16pm | | | Granuloc | | | | | | | | | yte % | | | | | | | | | (Auto) | | | | | | | | + + + +-------+ + + + + | Nucleate | 0.0 | /100 WBC | | 0.0-0.2 | 02/16/18 | 02/16/18 | | | d Red | | | | | 9:30pm | 10:16pm | | | Blood | | | | | | | | | Cells % | | | | | | | | + + + +-------+ + + + + | Absolute | 3.43 | K/mm3 | | 1.96-9.1 | 02/16/18 | 02/16/18 | | | | | | | 5 | 9:30pm | 10:16pm | | | Neutroph | | | | | | | | | ils | | | | | | | | | (auto) | | | | | | | | + + + +-------+ + + + + | Absolute | 0.99 | K/mm3 | | 0.84-5.2 | 02/16/18 | 02/16/18 | | | | | | | 0 | 9:30pm | 10:16pm | | | Lymphocy | | | | | | | | | serge | | | | | | | | | (auto) | | | | | | | | + + + +-------+ + + + + | Absolute | 0.39 | K/mm3 | | 0.16-1.4 | 02/16/18 | 02/16/18 | | | | | | | 7 | 9:30pm | 10:16pm | | | Monocyte | | | | | | | | | s (auto) | | | | | | | | + + + +-------+ + + + + | Absolute | 0.38 | K/mm3 | | 0.00-0.6 | 02/16/18 | 02/16/18 | | | | | | | 8 | 9:30pm | 10:16pm | | | Eosinoph | | | | | | | | | ils | | | | | | | | | (auto) | | | | | | | | + + + +-------+ + + + + | Absolute | 0.01 | K/mm3 | | 0.00-0.2 | 02/16/18 | 02/16/18 | | | | | | | 3 | 9:30pm | 10:16pm | | | Basophil | | | | | | | | | s (auto) | | | | | | | | + + + +-------+ + + + + | Absolute | 0.02 | K/mm3 | | 0.00-0.1 | 02/16/18 | 02/16/18 | | | | | | | 0 | 9:30pm | 10:16pm | | | Immature | | | [...] 0.00 | K/mm3 | | 0.00-0.0 | 02/16/18 | 02/16/18 | | | d RBC | | | | 2 | 9:30pm | 10:16pm | | | Absolute | | | | | | | | | Count | | | | | | | | | (auto) | | | | | | | | + + + +-------+ + + + + | Platelet | Mod Dec: | K/mm3 | * | Normal | 02/16/18 | 02/16/18 | | | | 50-100 | | | | 9:30pm | 10:16pm | | | Estimate | | | | | | | | + + + +-------+ + + + + | Sodium | 140 | mmol/L | | 136-145 | 02/16/18 | 02/16/18 | | | Level | | | | | 9:30pm | 10:10pm | | + + + +-------+ + + + + | Potassiu | 4.0 | mmol/L | | 3.5-5.5 | 02/16/18 | 02/16/18 | | | m Level | | | | | 9:30pm | 10:10pm | | + + + +-------+ + + + + | Chloride | 107 | mmol/L | | 98-108 | 02/16/18 | 02/16/18 | | | Level | | | | | 9:30pm | 10:10pm | | + + + +-------+ + + + + | Carbon | 23 | mmol/L | | 21-32 | 02/16/18 | 02/16/18 | | | Dioxide | | | | | 9:30pm | 10:10pm | | | Level | | | | | | | | + + + +-------+ + + + + | Anion | 10 | mmol/L | | 6-16 | 02/16/18 | 02/16/18 | | | Gap | | | | | 9:30pm | 10:10pm | | + + + +-------+ + + + + | Glucose | 318 | mg/dL | H | 70-99 | 02/16/18 | 02/16/18 | | | Level | | | | | 9:30pm | 10:10pm | | + + + +-------+ + + + + | Blood | 53 | mg/dL | H | 8-24 | 02/16/18 | 02/16/18 | | | Urea | | | | | 9:30pm | 10:10pm | | | Nitrogen | | | | | | | | + + + +-------+ + + + + | Creatini | 2.23 | mg/dL | H | 0.40-1.0 | 02/16/18 | 02/16/18 | | | ne | | | | 0 | 9:30pm | 10:10pm | | + + + +-------+ + + + + | BUN/Crea | 23.8 | % | H | 12.0-20. | 02/16/18 | 02/16/18 | | | tinine | | | | 0 | 9:30pm | 10:10pm | | | Ratio | | | | | | | | + + + +-------+ + + + + | Glomerul | 23 | | L | 60- | 02/16/18 | 02/16/18 | Non-Afri | | ar | | | | | 9:30pm | 10:10pm | can | | Filtrati | | [...] + + + + | Calcium | 9.1 | mg/dL | | 8.5-10.1 | 02/16/18 | 02/16/18 | | | Level | | | | | 9:30pm | 10:10pm | | + + + +-------+ + + + + | Total | 7.3 | g/dL | | 6.4-8.2 | 02/16/18 | 02/16/18 | | | Protein | | | | | 9:30pm | 10:10pm | | + + + +-------+ + + + + | Albumin | 3.3 | g/dL | L | 3.4-5.0 | 02/16/18 | 02/16/18 | | | | | | | | 9:30pm | 10:10pm | | + + + +-------+ + + + + | Globulin | 4.0 | g/dL | | 2.2-4.0 | 02/16/18 | 02/16/18 | | | | | | | | 9:30pm | 10:10pm | | + + + +-------+ + + + + | Albumin/ | 0.8 | | | 0.8-1.8 | 02/16/18 | 02/16/18 | | | Globulin | | | | | 9:30pm | 10:10pm | | | Ratio | | | | | | | | + + + +-------+ + + + + | Total | 0.3 | mg/dL | | 0.1-1.0 | 02/16/18 | 02/16/18 | | | Bilirubi | | | | | 9:30pm | 10:10pm | | | n | | | | | | | | + + + +-------+ + + + + | Alkaline | 139 | U/L | H | 50-136 | 02/16/18 | 02/16/18 | | | | | | | | 9:30pm | 10:10pm | | | Phosphat | | | | | | | | | ase | | | | | | | | + + + +-------+ + + + + | Aspartat | 53 | U/L | H | 12-37 | 02/16/18 | 02/16/18 | | | e Amino | | | | | 9:30pm | 10:10pm | | | Transf | | | | | | | | | (AST/SGO | | | | | | | | | T) | | | | | | | | + + + +-------+ + + + + | Alanine | 64 | U/L | | 12-78 | 02/16/18 | 02/16/18 | | | Aminotra | | | | | 9:30pm | 10:10pm | | | nsferase | | | [...] + + + + | POC | 327 | mg/dL | H | 70-99 | 02/16/18 | 02/16/18 | CAP | | Glucose | | | | | 8:58pm | 9:05pm | | | (mg/dL) | | | | | | | | + + + +-------+ + + + + Procedures No Known History of Procedures. Encounters + + + + + + | Encounter | Location | Arrival/Admit | Discharge/Depar | Attending | | | | Date | t Date | Provider | + + + + + + | Departed | [facility] | 02/16/18 8:43pm | 02/16/18 | Nikolay Hackett MD | | Emergency | [facility] [place] | | 11:40pm | | + + + + + + + + + | Encounter Diagnosis | Onset Date | + + + | UTI (urinary tract infection) | | + + + | Hyperglycemia | | + + + | Atypical chest pain | | + + +"
--- OUTSIDE RECORDS SUMMARY | ~2019-03-25 | XMS | Clinical Summary ---
Demographics + + + | Address | [address] [place] [address] | | | [place] [address] | + + + | Home Phone | | + + + | Preferred Language | Unknown | + + + | Marital Status | D | + + + | Spiritism Affiliation | Unknown | + + + | Race | White | + + + | Ethnic Group | or | + + + Author + + + | Author | [facility] | + + + | Organization | [facility] | + + + | Address | [address] | | | [place], [place] [address] | + + + | Phone | Unavailable | + + + Care Team Providers + +------+ + | Care [employer] Tm1 Developer Name | Role | Phone | [...] tion | | +---------+---------+---------+---------+---------+---------+---------+---------+---------+ | VACCINA | [id number] | | Active | | Ambrose | | Medicat | | | TION | 02 | / | | /03 | [place] | | ion | | | FOR | (SNOMED | | | | DNP PAYROLL SECRETARY | | given | | | STREP [...] | | | +---------+---------+---------+---------+---------+---------+---------+---------+---------+ | OSTEOAR | [id number] | | Active | | Edna | | Osteoar | | | THRITIS | 07 | /16 | | /18 | Hope | | thritis | | | , KNEE, | (SNOMED | | | | [facility] | | of | | | RIGHT | CT) | | | | | | knee | | +---------+---------+---------+---------+---------+---------+---------+---------+---------+ | CONSTIP | [id number] | | Active | | Ambrose | | Constip | | | ATION | 8 | / | | /13 | [place] | | ation | | | | (SNOMED | | | | DNP PAYROLL SECRETARY | | | | | | CT) | | | | | | | | +---------+---------+---------+---------+---------+---------+---------+---------+---------+ | TYPE 2 | E11.21 | | Active | | Ambrose | | Type 2 | | | DIABETE | (ICD-10 | / | | | [place] | | diabete | | | S | -CM) | | | | DNP PAYROLL SECRETARY | | s | | | MELLITU [...] athy | | +---------+---------+---------+---------+---------+---------+---------+---------+---------+ | DIABETE | [id number] | | Inactiv | | Ambrose | | Type 2 | | | S | 6 | /08 | e | /08 | [place] | | diabete | | | MELLITU | (SNOMED | | | | DNP PAYROLL SECRETARY | | s | | | S, TYPE | CT) | | | | | | mellitu | | | II, ON | | | | | | | s | | | | | | | | | | | | | INSULIN | | | | | | | | | +---------+---------+---------+---------+---------+---------+---------+---------+---------+ | DEHYDRA | [id number] | | Resolve | | Ambrose | | Dehydra | | | TION | 6 | / | d | /08 | [place] | | tion | | | | (SNOMED | | | | DNP PAYROLL SECRETARY | | | | | | CT) | | | | | | | | +---------+---------+---------+---------+---------+---------+---------+---------+---------+ | DIZZINE | [id number] | | Inactiv | | Ambrose | | Dizzine | | | SS | 03 | /08 | e | /08 | [place] | | ss | | | | (SNOMED | | | | DNP PAYROLL SECRETARY | | | | | | CT) | | | | | | | | +---------+---------+---------+---------+---------+---------+---------+---------+---------+ | ANEMIA | [id number] | | Inactiv | | Ambrose | | Anemia | | | | 00 | /10 | e | /10 | [place] | | | | | | (SNOMED | | | | DNP PAYROLL SECRETARY | | | | | | CT) | | | | | | | | +---------+---------+---------+---------+---------+---------+---------+---------+---------+ | CONSTIP | [id number] | | Inactiv | | Ambrose | | Constip | | | ATION | 8 | / | e | / | [place] | | ation | | | | (SNOMED | | | | DNP PAYROLL SECRETARY | | | | | | CT) | | | | | | | | +---------+---------+---------+---------+---------+---------+---------+---------+---------+ | SYNCOPE | [id number] | | Resolve | | Ambroes | | Syncope | | | | 07 | | d | / | [place] | | | | | | (SNOMED | | | | DNP PAYROLL SECRETARY | | | | | | CT) | | | | | | | | +---------+---------+---------+---------+---------+---------+---------+---------+---------+ | DYSPHAG | R13.10 | | Resolve | | Ambrose | | Dysphag | | | IA | (ICD-10 | | d | /26 | [place] | | ia, | | | UNSPECI | -CM) | | | | DNP PAYROLL SECRETARY | | unspeci | | | FIED | | | | | | | fied | | +---------+---------+---------+---------+---------+---------+---------+---------+---------+ | PARESTH | [id number] | | Inactiv | | Ambrose | | Paresth | | | ESIA, | | | e | | [place] | | esia of | | | HANDS | (SNOMED | | | | DNP PAYROLL SECRETARY | | hand | | | | CT) | | | | | | | | +---------+---------+---------+---------+---------+---------+---------+---------+---------+ | DIABETI | [id number] | | Inactiv | | Ambrose | | Diabeti | | | C | | | e | | [place] | | c | | | PERIPHE | (SNOMED | | | | DNP PAYROLL SECRETARY | | periphe | | | RAL [...] | -CM) | | | | DNP PAYROLL SECRETARY | | unspeci | | | FIED | | | | | | | fied | | +---------+---------+---------+---------+---------+---------+---------+---------+---------+ | VAGINIT | [id number] | | Resolve | | Ambrose | | Vaginit | | | IS | 1 | /31 | d | /31 | [place] | | is | | | | (SNOMED | | | | DNP PAYROLL SECRETARY | | | | | | CT) | | | | | | | | +---------+---------+---------+---------+---------+---------+---------+---------+---------+ | DYSURIA | [id number] | | Resolve | | Ambrose | | Dysuria | | | | 1 | /31 | d | /31 | [place] | | | | | | (SNOMED | | | | DNP PAYROLL SECRETARY | | | | | | CT) | | | | | | | | +---------+---------+---------+---------+---------+---------+---------+---------+---------+ | EDEMA | [id number] | | Inactiv | | Ambrose | | Edema | | | | 08 | | e | / | [place] | | | | | | (SNOMED | | | | DNP PAYROLL SECRETARY | | | | | | CT) | | | | | | | | +---------+---------+---------+---------+---------+---------+---------+---------+---------+ | RENAL | [id number] | | Inactiv | | Ambrose | | Acute | | | FAILURE | 1 | | e | / | [place] | | renal | | | , ACUTE | (SNOMED | | | | DNP PAYROLL SECRETARY | | failure | | | | CT) | | | | | | | | | | | | | | | | syndrom | | | | | | | | | | e | | +---------+---------+---------+---------+---------+---------+---------+---------+---------+ | DIABETE | [id number] | | Inactiv | | Ambrose | | Periphe | | | S | 02 | / | e | / | [place] | | ral | | | MELLITU | (SNOMED | | | | DNP PAYROLL SECRETARY | | circula | | | S, [...] | -CM) | | | | DNP PAYROLL SECRETARY | | s | | | DIABETI [...] ropathy | | +---------+---------+---------+---------+---------+---------+---------+---------+---------+ | LOCALIZ | [id number] | | Resolve | | [facility]rose | | Disorde | | | ED | 09 | /30 | d | /30 | [place] | | r of | | | SWELLIN | (SNOMED | | | | DNP PAYROLL SECRETARY | | forearm | | | G [...] | | | +---------+---------+---------+---------+---------+---------+---------+---------+---------+ | UTI | [id number] | | Resolve | | [facility]rose | | Urinary | | | | 5 | /13 | d | /13 | [place] | | tract | | | | (SNOMED | | | | DNP PAYROLL SECRETARY | | infecti | | | | [...] | -CM) | | | | DNP PAYROLL SECRETARY | | s | | | MELLITU [...] athy | | +---------+---------+---------+---------+---------+---------+---------+---------+---------+ | DEMENTI | [id number] | | Inactiv | | Ambrose | | Procedu | | | A | | / | e | | [place] | | re | | | SCREENI | (SNOMED | | | | DNP PAYROLL SECRETARY | | carried | | | NG | CT) | | | | | | out on | | | | | | | | | | | | | | | | | | | | subject | | +---------+---------+---------+---------+---------+---------+---------+---------+---------+ | CHANGE | [id number] | | Inactiv | | Ambrose | | Altered | | | IN | 9 | / | e | /13 | [place] | | bowel | | | BOWEL | (SNOMED | | | | DNP PAYROLL SECRETARY | | functio | | | HABITS | CT) | | | | | | n | | +---------+---------+---------+---------+---------+---------+---------+---------+---------+ | MILD | [id number] | | Inactiv | | [facility] | | Mild | | | COGNITI | | | e | | [place] | | cogniti | | | VE | (SNOMED | | | | DNP PAYROLL SECRETARY | | ve | | | IMPAIRM | CT) | | | | | | disorde | | | ENT | | | | | | | r | | +---------+---------+---------+---------+---------+---------+---------+---------+---------+ | DIABETE | [id number] | | Inactiv | | Ambrose | | Diabeti | | | S | [id number] | /11 | e | / | [place] | | c | | | MELLITU | (SNOMED | | | | DNP PAYROLL SECRETARY | | periphe | | | S, [...] fied | | +---------+---------+---------+---------+---------+---------+---------+---------+---------+ | DIABETE | [id number] | | Active | | David W | | Diabeti | | | S | [id number] | /15 | | /15 | Theen [...] s | | +---------+---------+---------+---------+---------+---------+---------+---------+---------+ | MUSCLE | [id number] | | Active | | Christen | | Muscle | | | PAIN | 1 | 07 | | /07 | J. | | pain | | | | (SNOMED | | | | [place] | | | | | | CT) | | | | ta PAYROLL SECRETARY | | | | +---------+---------+---------+---------+---------+---------+---------+---------+---------+ | DIABETE | [id number] | | Removed | | David W | | Diabeti | | | S | [id number] | | | | Theen | | [...] s | | +---------+---------+---------+---------+---------+---------+---------+---------+---------+ | MILD | [id number] | | Removed | | Maulik | [...] uterus | | +---------+---------+---------+---------+---------+---------+---------+---------+---------+ | COLONIC | [id number] | | Active | | Emeka | [...] | | | +---------+---------+---------+---------+---------+---------+---------+---------+---------+ | CONSTIP | [id number] | | Removed | | Emeka | | Constip | | | ATION | 8 | /13 | | /13 | Petre | | ation | | | | (SNOMED | | | | MD | | | | | | CT) | | | | | | | | +---------+---------+---------+---------+---------+---------+---------+---------+---------+ | CHANGE | [id number] | | Removed | | Emeka | | Altered | | | IN | 9 | /13 | | /13 | Petre | | bowel | | | BOWEL | (SNOMED | | | | MD | | functio | | | HABITS | CT) | | | | | | n | | +---------+---------+---------+---------+---------+---------+---------+---------+---------+ | DECREAS | 4851226 | | Active | | Emeka | | Decreas | | | ED | 6 | 13 | | 13 | Petre | | e in | | | APPETIT | (SNOMED | | | | MD | | appetit | | | E | CT) | | | | | | e | | +---------+---------+---------+---------+---------+---------+---------+---------+---------+ | WEIGHT | 1137944 | | Active | | Emeka | | Abnorma | | | LOSS | 01 | | | 13 | Petre | | l | | | ABNORMA | (SNOMED | | | | MD | | weight | | | L | CT) | | | | | | loss | | +---------+---------+---------+---------+---------+---------+---------+---------+---------+ | NAUSEA | 8943217 | | Active | | Emeka | | Nausea | | | ALONE | 07 | /13 | | /13 | Petre | | | | | | (SNOMED | | | | MD | | | | | | CT) | | | | | | | | +---------+---------+---------+---------+---------+---------+---------+---------+---------+ | RECTAL | [id number] | | Active | | Emeka | | Rectal | | | BLEEDIN | 2 | /13 | | /13 | Petre | | hemorrh | | | G | (SNOMED | | | | MD | | age | | | | CT) | | | | | | | | +---------+---------+---------+---------+---------+---------+---------+---------+---------+ | DEMENTI | 3581666 | | Active | | Christen | | Dementi | | | A | 6 | /10 | | /10 | J. | | a | | | WITHOUT | (SNOMED | | | | [place] | | | | | | CT) | | | | ta PAYROLL SECRETARY | | | | | BEHAVIO | | | | | | | | | | RAL | | | | | | | | | | DISTURB | | | | | | | | | | ANCE | | | | | | | | | +---------+---------+---------+---------+---------+---------+---------+---------+---------+ | CHRONIC | 8483520 | | Active | | Christen | | Chronic | | | | 03 | /10 | | /10 | J. | | | | | PROGRES | (SNOMED | | | | [place] | | progres | | | SIVE | CT) | | | | ta PAYROLL SECRETARY | | sive | | | RENAL | | | | | | | renal | | | FAILURE | | | | | | | failure | | +---------+---------+---------+---------+---------+---------+---------+---------+---------+ | ANEMIA | 0596699 | | Removed | | Christen | | Anemia | | | | 00 | /10 | | /10 | J. | | | | | | (SNOMED | | | | [place] | | | | | | CT) | | | | ta PAYROLL SECRETARY | | | | +---------+---------+---------+---------+---------+---------+---------+---------+---------+ | DEMENTI | 8831260 | | Removed | | Christen | | Procedu | | | A | 03 | / | | / | J. | | re | | | SCREENI | (SNOMED | | | | [place] | | carried | | | NG | CT) | | | | ta PAYROLL SECRETARY | | out on | | | | | | | | | | | | | | | | | | | | subject | | +---------+---------+---------+---------+---------+---------+---------+---------+---------+ | FALL | 5747243 | | Active | | Christen | | At risk | | | RISK | | | | | J. | | for | | | | (SNOMED | | | | [place] | | falls | | | | CT) | | | | ta PAYROLL SECRETARY | | | | +---------+---------+---------+---------+---------+---------+---------+---------+---------+ | DIABETE | 3657322 | | Resolve | | Christen | | Diabeti | | | S | 271923 | /14 | d | /15 | J. | | c | | | MELLITU | (SNOMED | | | | [place] | | periphe | | | S, TYPE | CT) | | | | ta PAYROLL SECRETARY | | ral | | | II [...] s | | +---------+---------+---------+---------+---------+---------+---------+---------+---------+ | CORNS | [id number] | | Inactiv | | Kali | | Corns | | | AND | | | e | | Palacio | | and | | | CALLOSI | (SNOMED | | | | DPM | | callus | | | TIES | CT) | | | | | | | | +---------+---------+---------+---------+---------+---------+---------+---------+---------+ | HAMMER | 3180157 | | Active | | Kali | [...] | | | +---------+---------+---------+---------+---------+---------+---------+---------+---------+ | ETIENNE | 1458988 | | Active | | Kali | [...] ropathy | | +---------+---------+---------+---------+---------+---------+---------+---------+---------+ | DIABETE | 6094173 | | Removed | | Kali | [...] s | | +---------+---------+---------+---------+---------+---------+---------+---------+---------+ | ONYCHOM | 2881860 | | Active | | Kali | | Onychom | | | YCOSIS | 08 | /01 | | /01 | Palacio | | ycosis | | | | (SNOMED | | | | DPM | | | | | | CT) | | | | | | | | +---------+---------+---------+---------+---------+---------+---------+---------+---------+ | HEARTBU | 8299842 | | Active | | Tiesha | | Heartbu | | | RN | 0 | /19 | | /19 | | | rn | | | | (SNOMED | | | | [facility] | | | | | | CT) | | | | MD | | | | +---------+---------+---------+---------+---------+---------+---------+---------+---------+ | TYPE 2 | [id number] | | Active | | Tiesha | | Disorde | | | DIABETE | 03 | /19 | | /19 | | | r due | | | S | (SNOMED | | | | [facility] | | to type | | | [...] athy | | +---------+---------+---------+---------+---------+---------+---------+---------+---------+ | UTI | 1320195 | | Removed | | Pako | | Urinary | | | | 5 | /13 | | /13 | [place] | | tract | | | | (SNOMED | | | | auff | | infecti | | | | CT) | | | | PAYROLL SECRETARY | | ous | | | | | | | | | | disease | | +---------+---------+---------+---------+---------+---------+---------+---------+---------+ | LOCALIZ | 0411597 | | Removed | | [place]'Elena | [...] | | | +---------+---------+---------+---------+---------+---------+---------+---------+---------+ | LIPOMA | 9693988 | | Active | | Lauranc | | Lipoma | | | | 2 | /14 | | /14 | e W | | (clinic | | | | (SNOMED | | | | Lila | | al) | | | | CT) | | | | MD | | | | +---------+---------+---------+---------+---------+---------+---------+---------+---------+ | VITAMIN | 2012505 | | Active | | David Paez | | Vitamin | | | D | 6 | / | | / | Theen | | D | | | DEFICIE | (SNOMED | | | | MD FACE | | deficie | | | NCY | CT) | | | | FACP | | ncy | | +---------+---------+---------+---------+---------+---------+---------+---------+---------+ | OBESITY | 5938057 | | Active | | David Paez | | Obesity | | | , BMI | 01 | | | | Theen | | | | | 35-39.9 | (SNOMED | | | | MD FACE | | | | | , ADULT | CT) | | | | FACP | | | | +---------+---------+---------+---------+---------+---------+---------+---------+---------+ | DIABETE | 9281212 | | Removed | | David Paez | | Diabeti | | | S | 675585 | /14 | | | Theen | [...] s | | +---------+---------+---------+---------+---------+---------+---------+---------+---------+ | HALLUX | 6102528 | | Inactiv | | Kali | [...] | | | +---------+---------+---------+---------+---------+---------+---------+---------+---------+ | HAMMER | 6547315 | | Inactiv | | Kali | [...] | | | +---------+---------+---------+---------+---------+---------+---------+---------+---------+ | ONYCHOM | 7309005 | | Inactiv | | Kali | [...] ropathy | | +---------+---------+---------+---------+---------+---------+---------+---------+---------+ | DIABETE | 7948514 | | Inactiv | | Kali | [...] s | | +---------+---------+---------+---------+---------+---------+---------+---------+---------+ | SCREENI | 9927272 | | Resolve | | Lauranc | | Depress | | | NG FOR | 06 | /10 | d | /10 | e W | | ion | | | DEPRESS | (SNOMED | | | | Lila | | screeni | | | ION | CT) | | | | MD | | ng | | +---------+---------+---------+---------+---------+---------+---------+---------+---------+ | SCREENI | 6300098 | | Resolve | | Lauranc | [...] | | | +---------+---------+---------+---------+---------+---------+---------+---------+---------+ | SCREENI | 2068743 | | Resolve | | Lauranc | [...] ng | | +---------+---------+---------+---------+---------+---------+---------+---------+---------+ | SCREENI | 8370792 | | Removed | | Geetha | | Alcohol | | | NG FOR | 01 | /10 | | /10 | [place] | | | | | ALCOHOL | (SNOMED | | | | [facility] | | consump | | | ISM | CT) | | | | | | tion | | | | | | | | | | screeni | | | | | | | | | | ng | | +---------+---------+---------+---------+---------+---------+---------+---------+---------+ | SCREENI | 1173674 | | Removed | | Geetha | [...] | | | +---------+---------+---------+---------+---------+---------+---------+---------+---------+ | SCREENI | 5819479 | | Removed | | Geetha | | Depress | | | NG FOR | 06 | | | | [place] | | ion | | | DEPRESS | (SNOMED | | | | [facility]MA | | screeni | | | ION | CT) | | | | | | ng | | +---------+---------+---------+---------+---------+---------+---------+---------+---------+ | RENAL | 1684746 | | Removed | | Lauranc | [...] e | | +---------+---------+---------+---------+---------+---------+---------+---------+---------+ | EDEMA | 3325709 | | Removed | | Lauranc | | Edema | | | | 08 | /15 | | /11 | e W | | | | | | (SNOMED | | | | Lila | | | | | | CT) | | | | MD | | | | +---------+---------+---------+---------+---------+---------+---------+---------+---------+ | RENAL | 6375768 | | Active | | Luz | [...] e | | +---------+---------+---------+---------+---------+---------+---------+---------+---------+ | PERIPHE | 0028195 | | Active | | Lauranc | [...] disease | | +---------+---------+---------+---------+---------+---------+---------+---------+---------+ | CANDIDI | 2236772 | | Active | | Susanna | | Candidi | | | ASIS, | 6 | / | | / | Medel | | asis of | | | SKIN | (SNOMED | | | | MD | | skin | | | | CT) | | | | | | | | +---------+---------+---------+---------+---------+---------+---------+---------+---------+ | DYSURIA | 9495808 | | Removed | | Erica | | Dysuria | | | | 1 | / | | | Paul | | | | | | (SNOMED | | | | MA | | | | | | CT) | | | | | | | | +---------+---------+---------+---------+---------+---------+---------+---------+---------+ | VAGINIT | 2979345 | | Removed | | Erica | | Vaginit | | | IS | 1 | / | | / | Paul | | is | | | | (SNOMED | | | | MA | | | | | | CT) | | | | | | | | +---------+---------+---------+---------+---------+---------+---------+---------+---------+ | RLQ | 6539935 | | Resolve | | Lauranc | | Right | | | PAIN | 02 | | d | /11 | e W | | lower | | | | (SNOMED | | | | Lila | | quadran | | | | CT) | | | | MD | | t pain | | +---------+---------+---------+---------+---------+---------+---------+---------+---------+ | ABDOMIN | 1177610 | | Resolve | | Lauranc | [...] | | | +---------+---------+---------+---------+---------+---------+---------+---------+---------+ | KNEE | 4925847 | | Active | | Lauranc | | Knee | | | PAIN | 3 | /14 | | /14 | e W | | pain | | | | (SNOMED | | | | Lila | | | | | | CT) | | | | MD | | | | +---------+---------+---------+---------+---------+---------+---------+---------+---------+ | [facility] | 1983049 | | Correct | | Lauranc | [...] e | | +---------+---------+---------+---------+---------+---------+---------+---------+---------+ | VERTIGO | 4773875 | | Active | | Luz | | Vertigo | | | | | / | | / | Asad | | | | | | (SNOMED | | | | RN | | | | | | CT) | | | | | | | | +---------+---------+---------+---------+---------+---------+---------+---------+---------+ | CHEST | 1950740 | | Inactiv | | Genny | | Chest | | | PAIN | 9 | | e | / | [place]auf[place] | | pain | | | | (SNOMED | | | | | | | | | | CT) | | | | | | | | +---------+---------+---------+---------+---------+---------+---------+---------+---------+ | CHEST | 8874905 | | Inactiv | | Lauranc | [...] fied | | +---------+---------+---------+---------+---------+---------+---------+---------+---------+ | CEREBRO | 8677685 | | Active | | Rogers | | 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 | | | R | (SNOMED | | | | MD | | r | | | DISEASE | CT) | | | | | | disease | | +---------+---------+---------+---------+---------+---------+---------+---------+---------+ | History | 3083471 | | Active | | Rogers | [...] | | | +---------+---------+---------+---------+---------+---------+---------+---------+---------+ | DIABETI | 9667182 | | Removed | | Rogers | [...] thy | | +---------+---------+---------+---------+---------+---------+---------+---------+---------+ | HYPERLI | 5613562 | | Active | | Rogers | [...] e | | +---------+---------+---------+---------+---------+---------+---------+---------+---------+ | CEREBRA | 6821461 | | Correct | | Rogers | [...] s | | +---------+---------+---------+---------+---------+---------+---------+---------+---------+ | ABDOMIN | 1443838 | | Removed | | Patricia | [...] | | | +---------+---------+---------+---------+---------+---------+---------+---------+---------+ | RLQ | 0780405 | | Removed | | Patricia | [...] fied | | +---------+---------+---------+---------+---------+---------+---------+---------+---------+ | CARPAL | 9656848 | | Active | | Rogers | | Carpal | | | 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 | | | | MD | | 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, LEFT | CT) | | | | | | e | | +---------+---------+---------+---------+---------+---------+---------+---------+---------+ | [facility] | 7745993 | | Removed | | Rogers | [...] | | | +---------+---------+---------+---------+---------+---------+---------+---------+---------+ | GAIT | 2635106 | | Active | | Rogers | | Abnorma | | | IMBALAN | | | | | Laith | | l gait | | | CE | (SNOMED | | | | MD | | | | | | CT) | | | | | | | | +---------+---------+---------+---------+---------+---------+---------+---------+---------+ | BRAIN | 6842231 | | Correct | | Rogers | [...] e | | +---------+---------+---------+---------+---------+---------+---------+---------+---------+ | PARESTH | 8734491 | | Removed | | Rogers | | Paresth | | | ESIA, | 04 | /25 | | /25 | Laith | | esia of | | | HANDS | (SNOMED | | | | MD | | hand | | | | CT) | | | | | | | | +---------+---------+---------+---------+---------+---------+---------+---------+---------+ | PERIPHE | 6533194 | | Correct | | Rogers | | Periphe | | | RAL | 06 | / | ion | /25 | Laith | | ral | | | NEUROPA | (SNOMED | | | | MD | | nerve | | | THY | CT) | | | | | | disease | | +---------+---------+---------+---------+---------+---------+---------+---------+---------+ | THYROID | 6353424 | | Active | | Luz | | Thyroid | | | NODULE | 05 | /20 | | /20 | [place] | | nodule | | | | (SNOMED | | | | [facility] | | | | | | CT) | | | | | | | | +---------+---------+---------+---------+---------+---------+---------+---------+---------+ | TIA | 6448386 | | Active | | Lauranc | [...] a | | +---------+---------+---------+---------+---------+---------+---------+---------+---------+ | SYNCOPE | 5484288 | | Removed | | Lauranc | | Syncope | | | | | | | | e W | | | | | | (SNOMED | | | | Lila | | | | | | CT) | | | | MD | | | | +---------+---------+---------+---------+---------+---------+---------+---------+---------+ | GASTROP | 1846917 | | Active | | Lauranc | | 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 | | | | (SNOMED | | | | Lila | | syndrom | | | | CT) | | | | MD | | e | | +---------+---------+---------+---------+---------+---------+---------+---------+---------+ | CONSTIP | 6718956 | | Active | | Lauranc | | Chronic | | | ATION, | 09 | /08 | | /08 | e W | | | | | CHRONIC | (SNOMED | | | | Lila | | constip | | | | CT) | | | | MD | | ation | | +---------+---------+---------+---------+---------+---------+---------+---------+---------+ | POSTHER | [id number] | | Active | | Lauranc | | Posther | | | 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 | (SNOMED | | | | Lila | | neuralg | | | IA | CT) | | | | MD | | ia | | +---------+---------+---------+---------+---------+---------+---------+---------+---------+ | DIZZINE | [id number] | | Removed | | Lauranc | | Dizzine | | | SS | 03 | /08 | | /08 | e W | | ss | | | | (SNOMED | | | | Lila | | | | | | CT) | | | | MD | | | | +---------+---------+---------+---------+---------+---------+---------+---------+---------+ | DEHYDRA | [id number] | | Removed | | Lauranc | | Dehydra | | | TION | 6 | /08 | | /08 | e W | | tion | | | | (SNOMED | | | | Lila | | | | | | CT) | | | | MD | | | | +---------+---------+---------+---------+---------+---------+---------+---------+---------+ | DIABETE | [id number] | | Removed | | Lauranc | [...] | | | +---------+---------+---------+---------+---------+---------+---------+---------+---------+ | HYPERTE | [id number] | | Active | | Lauranc | [...] 1 TAB | | | BUSPIRONE | [id number] | Kali | | HCL 7.5 MG | three | | | HCL | 1 | Palacio DPM | | TABS | times per | | | | | | | | day | | | | | | + + + + + + + + | LANTUS 100 | 25 units | | | INSULIN | 4721134824 | Jesus | | UNIT/ML | two [...] two times | | | MECLIZINE | 1410036481 | Laurance W | | HCL 25 MG | per day | | | HCL | 0 | Lila MD | | TABS | | | | | | | + + + + + + + + | MECLIZINE | One tab by | | | MECLIZINE | 5163958895 | Laurance W | | HCL 25 [...] 1 tab | | | PREGABALIN | 2028335462 | Ambrose | | MG CAPS | three | | | | 8 | Ankur DNP | | | times per | | | | | [employer] | | | day. Pt | | | | | | | | states as | | | | | | | | needed | | | | | | + + + + + + + + | PROMETHAZI | Take one | | | PROMETHAZI | 2719498728 | Edna | | NE HCL 25 [...] 3U before | | | INSULIN | 5925820665 | Scarlett | | 100 | lunch [...] POTASSIUM | | | | POTASSIUM | 8650986097 | Kali | | CHLORIDE | | | | CHLORIDE | 1 | Palacio DPM | | ER 10 MEQ | | | | | | | | CR-CAPS | | | | | | | + + + + + + + + | DULOXETINE | 1 tab one | | | DULOXETINE | 4872185289 | Bailey W | | HCL 30 MG | time per | | | HCL | 6 | Lila MD | | CPEP | day | | | | | | + + + + + + + + | PROCHLORPE | Insert one | | | PROCHLORPE | 9662180032 | Edna | | RAZINE 25 | [...] Use daily | | | INSULIN | 7865087662 | [facility]rose | | NEEDLE | to inject | | | PEN NEEDLE | 0 | Ankur DNP | | ULTRAFINE | insulin | | | | | [employer] | | 29G X | | | | | | | | 12.7MM | | | | | | | + + + + + + + + | DRAMAMINE | take 1-2 | | | TAYLER | 5489972052 | Christen Ramirez | | 50 MG TABS | tabs 4 | | | MARCELA | 2 | Raum[place]ita | | | times per | | | | | [employer] | | | day as | | | | | | | | needed | | | | | | + + + + + + + + | VICTOZA 18 | | | | LIRAGLUTID | 5421336832 | Jesus | | MG/3ML | | [...] | | | | * | | [employer] | + + + + + + + + | BASAGLAR | 1 pen | | | INSULIN | 4308232298 | Christen Ramirez | | KWIKPEN | every 3 | | | GLARGINE | 9 | [place]ita | | 100 | days 56 | | | | | [employer] | | UNIT/ML | units q | [...] by mouth | | | MECLIZINE | 5576558524 | Bailey W | | HCL 25 [...] mix and | | | NA | 6633488655 | Maulik | | BOWEL PREP | [...] take 2 | | | GABAPENTIN | 0489801880 | Bailey W | | 300 MG [...] Inject 0.6 | | | LIRAGLUTID | 0693178198 | Christen Ramirez | | MG/3ML | mg daily | | | E | 2 | [place] | | SOPN | | | | | | [employer] | + + + + + + + + | ONDANSETRO | 1 tab | | | ONDANSETRO | 1165905632 | Kali | | N HCL 4 MG | every 4 | | | N HCL | 3 | Palacio DPM | | TABS | hours | | | | | | + + + + + + + + | VICTOZA 18 | | | | LIRAGLUTID | 4836667204 | Bailey W | | MG/3ML | [...] 1 tab | | | GABAPENTIN | 0676771083 | Jesus | | 300 MG | po tid . | | | | 4 | Ethan MD | | CAPS | Pt states | | | | | | | | as needed | | | | | | + + + + + + + + | COLACE 100 | 1 tab by | | | DOCUSATE | [id number] | Kali | | MG CAPS | mouth | | | SODIUM | 0 | Palacio DPM | | | daily at | | | | | | | | bedtime | | | | | | + + + + + + + + | CLONAZEPAM | Take one | | | CLONAZEPAM | 8017621188 | Edna | | 0.5 MG | [...] | | | | | | | [employer] | + + + + + + + + | ASPIRIN | take 1 | | | ASPIRIN | 2386705377 | Rogers | | 325 MG | [...] per | | | FOOT CARE | 8440039237 | [facility] | | INSOLES | custom | | | PRODUCTS | 1 | Ankur DNP | | | fit from | | | | | [employer] | | | podiatry | | | | | | | | Dx. | | | | | | | | E11.65, | | | | | | | | e11.21 | | | | | | + + + + + + + + | LYRICA 50 | 1 tab | | | PREGABALIN | 3302676006 | Bailey W | | MG CAPS | three | | | | 8 | Lila MD | | | times per | | | | | | | | day | | | | | | + + + + + + + + | GLUCOPHAGE | 1 tab one | | | METFORMIN | 1939096859 | Bailey W | | XR 500 MG | time per | | | HCL | 3 | Lila MD | | [id number] | day | | | | | | + + + + + + + + | HUMALOG | BS <150 - | | | INSULIN | 8738638604 | Christen Ramirez | | 100 | No insulin | | | LISPRO | 1 | [place] | | UNIT/ML | BS | | | (HUMAN) | | [employer] | | SOLN | 150-200 | | [...] Use 5 | | | INSULIN | 7622904670 | Ambrose | | SYRINGE | times | | | SYRINGE-NE | 1 | Ankur DNP | | ULTRAFINE | daily to | | | EDLE U-100 | | [employer] | | 29G X /" | inject [...] 50 units | | | INSULIN | 7404883625 | Pako | | UNIT/ML | once per | | | GLARGINE | 3 | Middlekauf | | SOLN | day. Pt | | | | | f [employer] | | | states she | | [...] | | | | | | | [employer] | + + + + + + + + | NITROFURAN | Take one | | | NITROFURAN | 9156445938 | Edna | | TOIN | capsule [...] Use daily | | | GLUCOSE | 8792127049 | Ambrose | | BLOOD | to check | | | BLOOD | 4 | Ankur DNP | | GLUCOSE | blood | | | | | [employer] | | TEST STRP | sugar | | | | | | + + + + + + + + | ERGOCALCIF | One | | | ERGOCALCIF | 6869688961 | Mariano | | QUANG 88443 | capsule by | | | QUANG [...] take 2 | | | GABAPENTIN | 1708296165 | Mariano | | 300 MG | [...] 10ml QAM | | | METFORMIN | 8118971161 | Mariano | | MG/5ML | Liquid due | | | HCL | 1 | Ariella | | ANGYN | to | | | | | CCMA | | | Dysphagia | | | | | | + + + + + + + + | ASPIRIN EC | take 1 | | | ASPIRIN | 1394725052 | Rogers | | 325 MG | tablet | | | | 1 | Laith MD | | TBEC | daily | | | | | | + + + + + + + + | RELION | Use to | | | GLUCOSE | 4049318436 | Kali | | BLOOD | test BG | | | BLOOD | 4 | Palacio DPM | | GLUCOSE | one time | | | | | | | TEST STRP | per day | | | | | | + + + + + + + + | NITROFURAN | | | | NITROFURAN | 2936419582 | Enda | | TOIN | | | | [...] one tablet | | | DOCUSATE | 4844358912 | Laurance W | | MG CAPS | by mouth | | | SODIUM | 0 | Lila MD | | | at bedtime | | | | | | + + + + + + + + | BACTRIM DS | 1 by mouth | | | TRIMETHOPR | 3383184344 | Laurance W | | 800-160 | twice a | | | IM-SULFAME | 1 | Lila MD | | MG TABS | day for 3 | | | THOXAZOLE | | | | | days | | | | | | + + + + + + + + | RELION PEN | | | | INSULIN | 8085489033 | Ambrose | | NEEDLES | | | | PEN NEEDLE | 4 | Ankur DNP | | 31G X 8 MM | | | | | | [employer] | + + + + + + + + | VICTOZA 18 | .6 mg x 1 | | | LIRAGLUTID | 0834956738 | Ambrose | | MG/3ML | week then | | | E | 2 | Ankur DNP | | SOPN | 1.2 mg | | | | | [employer] | | | daily per | | | | | | | | week | | | | | | + + + + + + + + | ASPIRIN 81 | one time | | | ASPIRIN | 8381267685 | Mariano | | MG ORAL | [...] | | | | | | | [employer] | + + + + + + + + | DIABETIC | 1 pair per | | | DIABETIC | | [facility] | | ORTHOTIC | custom | | | ORTHOTIC | | Ankur DNP | | SHOES | fit from | | | SHOES | | [employer] | | | podiatry | | | | | | | | E11.65, | | | | | | | | e11.21 | | | | | | + + + + + + + + | GABAPENTIN | two times | | | GABAPENTIN | 0963528984 | Mariano | | 100 MG | per day | | | | 1 | Ariella | | CAPS | | | | | | CCMA | + + + + + + + + | MISC | | | | MISC | | [facility] | | | | | | | | Ankur DNP | | | | | | | | [employer] | + + + + + + + + | BIOTIN 1 | | | | BIOTIN | 7180124903 | Kali | | MG CAPS | | | | | 2 | Palacio DPM | + + + + + + + + | PIOGLITAZO | Take 1 tab | | | PIOGLITAZO | 6248865258 | Jesus | | NE HCL 15 [...] two times | | | MECLIZINE | 6997993629 | Mariano | | HCL 25 MG [...] take 1 | | | ASPIRIN | 2053467372 | Mariano | | 325 MG | tablet | | | | 1 | Ariella | | TBEC | daily | | | | | CCMA | + + + + + + + + | PIOGLITAZO | Take 1 tab | | | PIOGLITAZO | 4131983612 | Christen Ramirez | | NE HCL 15 | by mouth | | | NE HCL | 6 | [place] | | MG TABS | one time | | | | | [employer] | | | per day in | | | | | | | | the AM | | | | | | + + + + + + + + | NEURONTIN | take 1 tab | | | GABAPENTIN | 6145198957 | Bailey W | | 300 MG | po tid | | | | 4 | Lila MD | | CAPS | | | | | | | + + + + + + + + | DIOVAN 160 | one time | | | VALSARTAN | 7719092492 | Mariano | | MG TABS | per day | | | | 4 | Ariella | | | | | | | | CCMA | + + + + + + + + | ASPIRIN | take 1 | | | ASPIRIN | 9566384449 | Franciscoance W | | 325 MG [...] 1 pill | | | CEPHALEXIN | 9963269597 | Tiesha | | MG CAPS | twice a | | | | 1 | Maria Isabel MD | | | day for 7 | | | | | | | | days | | | | | | + + + + + + + + | GABAPENTIN | one tablet | | | GABAPENTIN | 0579349539 | Franciscoance W | | 100 MG [...] 1 tab | | | MECLIZINE | 1877056918 | Laurance W | | HCL 25 MG | three | | | HCL | 0 | Lila MD | | TABS | times per | | | | | | | | day | | | | | | + + + + + + + + | NITROFURAN | Take one | | | NITROFURAN | 7773616938 | Edna | | TOIN | capsule [...] 0.02 ml | | | EXENATIDE | 7270368414 | Laurance W | | MCG PEN 5 | injection | | | | 1 | Lila MD | | MCG/0.02ML | two times | | | | | | | SOPN | per day | | | | | | + + + + + + + + | FLUCONAZOL | take one | | | FLUCONAZOL | 7031880980 | Franciscoance W | | E 150 MG | tablet PO | | | E | 1 | Illa MD | | TABS | x 1 repeat | | | | | | | | in 3 days | | | | | | + + + + + + + + | PROCHLORPE | Insert one | | | PROCHLORPE | 0607902363 | Ambrose | | RAZINE 25 | | | | RAZINE | 0 | Ankur DNP | | MG SUPP | suppositor | | | | | [employer] | | | y rectally | | [...] tab two | | | CILOSTAZOL | 5247671651 | Kali | | 100 MG | times per | | | | 1 | Palacio DPM | | TABS | day | | | | | | + + + + + + + + | RIOMET 500 | 10ml's two | | | METFORMIN | 7082641148 | Laurance W | | MG/5ML | [...] D | | | | CHOLECALCI | 8227742786 | Kali | | 1000 UNIT | | | | FEROL | 1 | Palacio DPM | | TABS | | | | | | | + + + + + + + + | NEURONTIN | take 1 tab | | | GABAPENTIN | 8145374881 | Christen Ramirez | | 300 MG | po tid . | | | | 4 | [place] | | CAPS | Pt states | | | | | [employer] | | | as needed | | | | | | + + + + + + + + | BYETTA 5 | Take as | | | EXENATIDE | 7754006587 | Christen Ramirez | | MCG PEN 5 | directed | | | | 1 | [place] | | MCG/0.02ML | once daily | | | | | [employer] | | SOPN | in the AM [...] two times | | | METFORMIN | 0940413229 | Mariano | | HCL 1000 | per day | | | HCL | 5 | Ariella | | MG TABS | | | | | | CCMA | + + + + + + + + | GABAPENTIN | Take 2 | | | GABAPENTIN | 3211220945 | Bailey W | | 300 MG [...] | | | | | | | [employer] | + + + + + + + + | LYRICA 50 | TAKE ONE | | | PREGABALIN | 5913538083 | Kesha | | MG CAPS | [...] Take one | | | BIOTIN | 3667435304 | Lorri | | MG CAPS | daily in | | | | 2 | Prabhakar | | | the AM | | | | | NCMA | + + + + + + + + | BD INSULIN | Use to | | | INSULIN | 3274111500 | Ambrose | | SYRINGE | inject | | | SYRINGE-NE | 6 | Ankur DNP | | ULTRAFINE | insulin 5 | | | EDLE U-100 | | [employer] | | 29G X /2" | times per | | | | | | | 0.5 ML | day | | | | | | + + + + + + + + | RELION | Use to | | | GLUCOSE | 0649868409 | Ambrose | | BLOOD | check | | | BLOOD | 4 | Ankur DNP | | GLUCOSE | blood | | | | | [employer] | | TEST STRP | sugars | [...] use with | | | BLOOD | 1887934238 | Amb[facility] | | PRIME | test | | | GLUCOSE | 2 | Ankur DNP | | MONITOR | strips to | | | MONITORING | | [employer] | | DYLAN | test BG | | | SUPPL | | | | | daily | | | | | | + + + + + + + + | RELION | use when | | | GLUCOSE | 1805054590 | Ambrose | | BLOOD | testing BG | | | BLOOD | 4 | Ankur DNP | | GLUCOSE | | | | | | [employer] | | TEST STRP | | | | | | | + + + + + + + + | VALSARTAN | Take one | | | VALSARTAN | 6218963524 | Ambrose | | 160 MG | tablet | | | | 7 | Ankur DNP | | TABS | daily in | | | | | [employer] | | | the AM | | | | | | + + + + + + + + | BASAGLAR | 68 Units | | | INSULIN | 5635070644 | Amb[facility] | | KWIKPEN | every | | | GLARGINE | 9 | Ankur DNP | | 100 | morning | | | | | [employer] | | UNIT/ML | (34 units | | | | | | | SOPN | on each | | | | | | | | side) | | | | | | + + + + + + + + | NOVOLOG | 12 Units | | | INSULIN | 4103847911 | Ambrose | | 100 | before | | | ASPART | 1 | Ankur DNP | | UNIT/ML | meals | | | | | [employer] | | SOLN | [id number] | | [...] 65 Units | | | INSULIN | 3060144454 | Ambrose | | KWIKPEN | every | | | GLARGINE | 9 | Ankur DNP | | 100 | morning | | | | | [employer] | | UNIT/ML | | | | | | | | SOPN | | | | | | | + + + + + + + + | BASAGLAR | 60 Units | | | INSULIN | 3558521168 | Ambrose | | KWIKPEN | every | | | GLARGINE | 9 | Ankur DNP | | 100 | morning | | | | | [employer] | | UNIT/ML | | | | | | | | SOPN | | | | | | | + + + + + + + + | MIRALAX | 17 gm | | | POLYETHYLE | 8566405911 | Ambrose | | POWD | daily | | | NE GLYCOL | 2 | Ankur DNP | | | stirred | | | 3350 | | [employer] | | | into 4-8 | | [...] 1 pill | | | DOCUSATE | 7814684336 | Ambrose | | MG CAPS | twice | | | SODIUM | 0 | Ankur DNP | | | daily for | | | | | [employer] | | | soft | | | | | | | | stools | | | | | | + + + + + + + + | LYRICA 100 | 1 capsule | | | PREGABALIN | 3875278123 | Ambrose | | MG CAPS | three | | | | 8 | Ankur DNP | | | times | | | | | [employer] | | | daily for | | | | | | | | neuropathy | | | | | | + + + + + + + + | LIPITOR 20 | take 1 | | | ATORVASTAT | 5923041584 | Ambrose | | MG TABS | tablet by | | | IN CALCIUM | 3 | Ankur DNP | | | mouth | | | | | [employer] | | | daily in | | | | | | | | the | | | | | | | | evening | | | | | | + + + + + + + + | GLIPIZIDE | Take 1 | | | GLIPIZIDE | 8018782430 | Ambrose | | XL 2.5 MG | tablet | | | | 1 | Ankur DNP | | [id number] | p.o. | | | | | [employer] | | | q.a.m. | | | | | | + + + + + + + + | OMEPRAZOLE | Take one | | | OMEPRAZOLE | 6188486312 | Ambrose | | 40 MG | by mouth | | | | 0 | Ankur DNP | | CPDR | one time | | | | | [employer] | | | per day | | [...] tab by | | | MECLIZINE | 9428715424 | Ambrose | | HCL 25 MG | mouth | | | HCL | 0 | Ankur DNP | | TABS | three | | | | | [employer] | | | times per | | | | | | | | day | | | | | | + + + + + + + + | PLAVIX 75 | 1 tab by | | | CLOPIDOGRE | 1631055325 | Ambrose | | MG TABS | mouth one | | | L | 1 | Ankur DNP | | | time per | | | BISULFATE | | [employer] | | | day in the | | | | | | | | evening | | | | | | + + + + + + + + | VITAMIN D | Take one | | | CHOLECALCI | 2221695292 | Ambrose | | 1000 UNIT | tablet | | | FEROL | 1 | Ankur DNP | | TABS | daily in | | | | | [employer] | | | the AM | | | | | | + + + + + + + + | PANTOPRAZO | Take one | | | PANTOPRAZO | 0856606111 | Ambrose | | LE SODIUM | tablet by | | | LE SODIUM | 8 | Ankur DNP | | 40 MG TBEC | mouth once | | | | | [employer] | | | daily | | | | | | + + + + + + + + | LASIX 80 | 1 tab by | | | FUROSEMIDE | 3999614257 | Ambrose | | MG TABS | mouth one | | | | 5 | Ankur DNP | | | time per | | | | | [employer] | | | day in the | | | | | | | | AM | | | | | | + + + + + + + + | POTASSIUM | Take one | | | POTASSIUM | 7946407022 | Amb[facility] | | CHLORIDE | cap daily | | | CHLORIDE | 1 | Ankur DNP | | ER 10 MEQ | in the AM | | | | | [employer] | | CR-CAPS | | | | | | | + + + + + + + + | BD PEN | Use daily | | | INSULIN | 6748154147 | [facility] | | NEEDLE | to inject | | | PEN NEEDLE | 0 | Ankur DNP | | ULTRAFINE | insulin | | | | | [employer] | | 29G X | | | | | | | | 12.7MM | | | | | | | + + + + + + + + | BD INSULIN | Use 5 | | | INSULIN | 4851355244 | [facility] | | SYRINGE | times | | | SYRINGE-NE | 1 | Ankur DNP | | ULTRAFINE | daily to | | | EDLE U-100 | | [employer] | | 29G X 1/2" | inject [...] Take one | | | BIOTIN | 7247208491 | Ambrose | | MG CAPS | daily in | | | | 2 | Ankur DNP | | | the AM | | | | | [employer] | + + + + + + + + | COLACE 100 | 1 pill BID | | | DOCUSATE | [id number] | Amb[facility] | | MG CAPS | | | | SODIUM | 0 | Ankur DNP | | | | | | | | [employer] | + + + + + + + + | NYSTATIN-T | Apply thin | | | NYSTATIN-T | 6590136169 | Ambrose | | RIAMCINOLO | layer to | | | RIAMCINOLO | 5 | Ankur DNP | | NE | affected | | | NE | | [employer] | | 031749-2.1 | area BID | | | | | | | UNIT/GM-% | prn for | | | | | | | CREA | itching | | | | | | + + + + + + + + | RELION PEN | | | | INSULIN | 2346054764 | David | | NEEDLES | | | | PEN NEEDLE | 4 | Mark DO | | 31G X 8 MM | | | | | | | + + + + + + + + | NOVOLOG | 3U before | | | INSULIN | 2215712942 | David | | 100 | lunch [...] 56 Units | | | INSULIN | 2870316700 | David | | GRACEIKPEN | every [...] 1 tid | | | PREGABALIN | 1301193864 | Christen Escudero. | | MG CAPS | | | | | 8 | [place]ita | | | | | | | | [employer] | + + + + + + + + | LYRICA 100 | 1 tab | | | PREGABALIN | 9071181163 | Christen Ramirez | | MG CAPS | three | | | | 8 | [place] | | | times per | | | | | [employer] | | | day. Pt | | | | | | | | states as | | | | | | | | needed | | | | | | + + + + + + + + | VICTOZA 18 | .6 mg x 1 | | | LIRAGLUTID | 0340548870 | Christen Ramirez | | MG/3ML | week then | | | E | 2 | Raum[place]ita | | SOPN | 1.2 mg | | | | | [employer] | | | daily per | | | | | | | | week | | | | | | + + + + + + + + | HUMALOG | 3U before | | | INSULIN | 3542196427 | Christen Ramirez | | 100 | lunch and | | | LISPRO | 1 | [place] | | UNIT/ML | 5U before | | | | | [employer] | | SOLN | Dinner | | [...] Inject 0.6 | | | LIRAGLUTID | 7748571762 | Christen Ramirez | | MG/3ML | mg daily | | | E | 2 | [place] | | SOPN | | | | | | [employer] | + + + + + + + + | BASAGLAR | 56 Units | | | INSULIN | 9313398757 | Christen Ramirez | | KWIKPEN | by mouth | | | GLARGINE | 9 | [place] | | 100 | every | | | | | [employer] | | UNIT/ML | morning | | | | | | | SOPN | | | | | | | + + + + + + + + | VICTOZA 18 | 5 unit AM | | | LIRAGLUTID | 3515813079 | Christen Ramirez | | MG/3ML | and 5 | | | E | 2 | Raum[place]ita | | SOPN | units PM | | | | | [employer] | + + + + + + + + | BASAGLAR | 1 pen | | | INSULIN | 4123905436 | Christen Ramirez | | KWIKPEN | every 3 | | | GLARGINE | 9 | [place] | | 100 | days 56 | | | | | [employer] | | UNIT/ML | units q | | | | | | | SOPN | Day | | | | | | + + + + + + + + | BYETTA 5 | Take as | | | EXENATIDE | 0060725498 | Christen Ramirez | | MCG PEN 5 | directed | | | | 1 | Raum[place] | | MCG/0.02ML | once daily | | | | | [employer] | | SOPN | in the AM | | | | | | + + + + + + + + | LANTUS 100 | 56 units | | | INSULIN | 4286317758 | Kaykay | | UNIT/ML | qAM | | | GLARGINE | 3 | Mora DO | | SOLN | | | | | | | + + + + + + + + | SUPREP | mix and | | | NA | 0544411199 | Emeka | | BOWEL PREP | [...] <150 - | | | INSULIN | 9482480105 | Tiesha | | 100 | No [...] Use daily | | | GLUCOSE | 6124056057 | Tiesha | | BLOOD | to check | | | BLOOD | 4 | Eccles MD | | GLUCOSE | blood | | | | | | | TEST STRP | sugar | | | | | | + + + + + + + + | DIABETIC | 1 pair per | | | DIABETIC | | Tiesha | | ORTHOTIC | custom | | | ORTHOTIC | | Eccles MD | | SHOES | fit from | | | SHOES | | | | | podiatry | | | | | | | | E11.65, | | | | | | | | e11.21 | | | | | | + + + + + + + + | DIABETIC | 1 pair per | | | FOOT CARE | 7945881103 | Tiesha | | INSOLES | custom [...] 1 pill | | | CEPHALEXIN | 6897925239 | Pako | | MG CAPS | twice a | | | | 1 | Middlekauf | | | day for 7 | | | | | f [employer] | | | days | | | | | | + + + + + + + + | BYETTA 5 | 0.02 ml | | | EXENATIDE | 6016065711 | Laurance W | | MCG PEN 5 | injection | | | | 1 | Lila MD | | MCG/0.02ML | two times | | | | | | | SOPN | per day | | | | | | + + + + + + + + | LYRICA 100 | 1 tab | | | PREGABALIN | [id number] | Laurance W | | MG CAPS | three | | | | 8 | Lila MD | | | times per | | | | | | | | day | | | | | | + + + + + + + + | DRAMAMINE | take 1-2 | | | DIMENHYDRI | [id number] | Laurance W | | 50 MG [...] Use 5 | | | INSULIN | [id number] | Bailey W | | SYRINGE | [...] tab by | | | CLOPIDOGRE | [id number] | Bailey W | | MG TABS | mouth one | | | L | 1 | Lila MD | | | time per | | | BISULFATE | | | | | day | | | | | | + + + + + + + + | LANTUS 100 | 25 units | | | INSULIN | [id number] | Laurance W | | UNIT/ML | two times | | | GLARGINE | 3 | Lila MD | | SOLN | per day | | | | | | + + + + + + + + | LASIX 80 | 1 tab by | | | FUROSEMIDE | [id number] | Laurance W | | MG TABS | mouth one | | | | 5 | Lila MD | | | time per | | | | | | | | day | | | | | | + + + + + + + + | FUROSEMIDE | 1 tab one | | | FUROSEMIDE | [id number] | Laurance W | | 40 MG | time per | | | | 5 | Lila MD | | TABS | day | | | | | | + + + + + + + + | BUSPIRONE | 1 TAB | | | BUSPIRONE | [id number] | Laurance W | | HCL 7.5 MG | three | | | HCL | 1 | Lila MD | | TABS | times per | | | | | | | | day | | | | | | + + + + + + + + | COLACE 100 | 1 tab by | | | DOCUSATE | [id number] | Laurance W | | MG CAPS | mouth | | | SODIUM | 0 | Lila MD | | | daily at | | | | | | | | bedtime | | | | | | + + + + + + + + | BACTRIM DS | 1 by mouth | | | TRIMETHOPR | [id number] | Laurance W | | 800-160 | twice a | | | IM-SULFAME | 1 | Lila MD | | MG TABS | day for 3 | | | THOXAZOLE | | | | | days | | | | | | + + + + + + + + | LYRICA 50 | Take 1 tab | | | PREGABALIN | [id number] | Laurance W | | MG CAPS [...] tab one | | | METFORMIN | [id number] | Laurance W | | XR 500 MG | time per | | | HCL | 3 | Lila MD | | [id number] | day | | | | | | + + + + + + + + | CILOSTAZOL | 1 tab two | | | CILOSTAZOL | 8376809566 | Laurance W | | 100 MG | times per | | | | 1 | Lila MD | | TABS | day | | | | | | + + + + + + + + | OMEPRAZOLE | Take one | | | OMEPRAZOLE | 8781193278 | Laurance W | | 40 MG [...] take 1 | | | ATORVASTAT | [id number] | Laurance W | | MG TABS | tablet by | | | IN CALCIUM | 3 | Lila MD | | | mouth | | | | | | | | daily | | | | | | + + + + + + + + | MECLIZINE | 1 tab | | | MECLIZINE | [id number] | Laurance W | | HCL 25 MG | three | | | HCL | 0 | Lila MD | | TABS | times per | | | | | | | | day | | | | | | + + + + + + + + | LANTUS 100 | 56 units | | | INSULIN | [id number] | Laurance W | | UNIT/ML | in the | | | GLARGINE | 3 | Lila MD | | SOLN | morning | | | | | | + + + + + + + + | ONDANSETRO | 1 tab | | | ONDANSETRO | 5907893946 | Laurance W | | N HCL 4 MG | every 4 | | | N HCL | 3 | Lila MD | | TABS | hours | | | | | | + + + + + + + + | PIOGLITAZO | Take 1 tab | | | PIOGLITAZO | [id number] | Franciscoance W | | NE HCL 15 | by mouth | | | NE HCL | 6 | Lila MD | | MG TABS | one time | | | | | | | | per day | | | | | | + + + + + + + + | RELION | Use to | | | GLUCOSE | [id number] | Bailey W | | BLOOD | test BG | | | BLOOD | 4 | Lila MD | | GLUCOSE | one time | | | | | | | TEST STRP | per day | | | | | | + + + + + + + + | GABAPENTIN | Take 2 | | | GABAPENTIN | 8882859392 | Laurance W | | 300 MG [...] TAB one | | | VALSARTAN | [id number] | Bailey W | | 160 MG | time per | | | | 8 | Lila MD | | TABS | day | | | | | | + + + + + + + + | LYRICA 50 | TAKE ONE | | | PREGABALIN | 4889481342 | Laurance W | | MG CAPS [...] 0.2 ml | | | EXENATIDE | [id number] | Laurance W | | MCG PEN 5 | injection | | | | 1 | Lila MD | | MCG/0.02ML | two times | | | | | | | SOPN | per day | | | | | | + + + + + + + + | VICTOZA 18 | 1.2 mg | | | LIRAGLUTID | [id number] | Laurance W | | MG/3ML | injected | | | E | 2 | Lila MD | | SOPN | martin | | | | | | + + + + + + + + | KEFLEX 500 | one po TID | | | CEPHALEXIN | [id number] | Susanna | | MG CAPS | | | | | 1 | Gianfranco MD | + + + + + + + + | FLUCONAZOL | take one | | | FLUCONAZOL | [id number] | Susanna | | E 150 MG | tablet PO | | | E | 1 | Gianfranco MD | | TABS | x 1 repeat | | | | | | | | in 3 days | | | | | | + + + + + + + + | LYRICA 50 | 1 tab | | | PREGABALIN | [id number] | Bailey W | | MG CAPS | three | | | | 8 | Lila MD | | | times per | | | | | | | | day | | | | | | + + + + + + + + | GABAPENTIN | Take 2 | | | GABAPENTIN | 2957631171 | Bailey W | | 300 MG [...] tab one | | | DULOXETINE | [id number] | Laurance W | | HCL 30 MG | time per | | | HCL | 6 | Lila MD | | CPEP | day | | | | | | + + + + + + + + | RIOMET 500 | 10ml's two | | | METFORMIN | [id number] | Laurance W | | MG/5ML | [...] TAB one | | | VALSARTAN | [id number] | Laurance W | | MG TABS | time per | | | | 4 | Lila MD | | | day | | | | | | + + + + + + + + | MECLIZINE | One tab by | | | MECLIZINE | [id number] | Laurance W | | HCL 25 [...] take 2 | | | GABAPENTIN | [id number] | Laurance W | | 300 MG [...] tab one | | | VALSARTAN | [id number] | Laurance W | | MG TABS | time per | | | | 4 | Lila MD | | | day | | | | | | + + + + + + + + | VICTOZA 18 | 0.6 mg | | | LIRAGLUTID | [id number] | Laurance W | | MG/3ML | [...] tab one | | | SITAGLIPTI | [id number] | Laurance W | | 100 MG | time per | | | N | 2 | Lila MD | | TABS | day | | | PHOSPHATE | | | + + + + + + + + | GABAPENTIN | 2 tabs two | | | GABAPENTIN | 5427504366 | Laurance W | | 300 MG | times per | | | | 5 | Lila MD | | CAPS | day | | | | | | + + + + + + + + | DIOVAN 160 | 1 by mouth | | | VALSARTAN | [id number] | Laurance W | | MG TABS | every day | | | | 4 | Lila MD | + + + + + + + + | GABAPENTIN | 1 tab at | | | GABAPENTIN | 6347755116 | Laurance W | | 100 MG [...] 28 units | | | INSULIN | [id number] | Laurance W | | UNIT/ML | two times | | | GLARGINE | 3 | Lila MD | | SOLN | per day | | | | | | + + + + + + + + | LISINOPRIL | take 1 | | | LISINOPRIL | [id number] | Rogers | | 20 MG | tablet by | | | | 1 | Laith LUIS | | TABS | mouth | | | | | | | | daily | | | | | | + + + + + + + + | LANTUS 100 | 56 units | | | INSULIN | 9360501712 | Bailey W | | UNIT/ML | daily | | | GLARGINE | 3 | Lila MD | | SOLN | | | | | | | + + + + + + + + | GABAPENTIN | 1 by mouth | | | GABAPENTIN | 7758609912 | Bailey W | | 100 MG [...] | One | | | ERGOCALCIF | 2254701186 | Laurance W | | QUANG 33140 | capsule by | | | QUANG [...] by mouth | | | LISINOPRIL | 1259250254 | Laurance W | | 5 MG TABS | one time | | | | 1 | Lila MD | | | per day | | | | | | + + + + + + + + | RIOMET 500 | 10ml QAM | | | METFORMIN | 4785045765 | Laurance W | | MG/5ML | Liquid due | | | HCL | 1 | Lila MD | | SOLN | to | | | | | | | | Dysphagia | | | | | | + + + + + + + + | COLACE 100 | one tablet | | | DOCUSATE | [id number] | Laurance W | | MG CAPS | by mouth | | | SODIUM | 0 | Lila MD | | | at bedtime | | | | | | + + + + + + + + | MECLIZINE | 1 by mouth | | | MECLIZINE | 5533390608 | Laurance W | | HCL 25 [...] one tablet | | | METFORMIN | 8804676802 | Laurance W | | HCL 1000 | by mouth | | | HCL | 5 | Lila MD | | MG TABS | twice a | | | | | | | | day | | | | | | + + + + + + + + | ASPIRIN 81 | 1 by mouth | | | ASPIRIN | 6760037699 | Laurance W | | MG ORAL | every day | | | | 5 | Lila MD | | TABLET | | | | | | | + + + + + + + + | GABAPENTIN | one tablet | | | GABAPENTIN | 9675846183 | Laurance W | | 100 MG [...] | | | | | | | [facility] | + + + + + + [...] | Rx Refill: eRx Request for INSULIN [id number] MIS | + + + +--------+ +---+---+---+ + | | ESM_RR | [id number] | | | B | e-scripts | | | | 82`INSULIN | | | | messenger | | | | | | | | refill | | | | [id number]/29 | | | | request | | [...] | | | | | | | [id number] | | | | | | | | `[id number] | | | | | | | | 01``INSULI | | | | | | | | N | | | | | | | | [id number] | | | | | | | [...] [address], | | | | [place], [address], | | | | | + + + + | Appointment | 02:15 PM | Ambrose Pascual [facility], [address] | | | | [facility] [address], | | | | [place], [address], | | | | | + + + + | Referral | | Ophthalmology Consult | + + + + | Referral | | Orthopedic Consult | + + + + | Referral | | Physical Therapy Evaluation | | | | [facility], [address] | | | | [address] | | | | [address], [place], [address] | | | | | | | | | + + + + | Referral | | Physical Therapy Evaluation | | | | [facility] | | | | [address] | | | | [address], [place], [address] | | | | | | | | | + + + + | Referral | | Podiatry Consult | | | | Hector Armendariz, | | | | [address] [facility] | | | | [address], [place], [place], | | | | [address] | | | | | + + + + | Referral | | Podiatry Consult | | | | Hector Armendariz, | | | | [address] [facility] | | | | [address], [place], [place], | | | | [address] | | | | | + + + + | Referral | | Ophthalmology Consult | | | | Huong Rose, | | | | [address] [facility], | | | | [place], [address] | | | | | + + + + | Referral | | Nephrology Evaluation | | | | Larry Galo, | | | | [address], | | | | [address], [place], [address] | | | | | | | | | + + + + | Referral | | Nephrology Evaluation | | | | Larry Galo, | | | | [address], | | | | [address], [place], [address] | | | | | | | | | + + + + | Referral | | Ophthalmology Consult | | | | Huong Rose, | | | | [address], [place], | | | | [place], [address] | | | | | + + + + | Referral | | [facility] | | | | Dian Atkins, [address] | | | | [address], | | | | [place], [address] | | | | | + + + + | Referral | | JUAN FRANCISCO [facility]s-[facility] Leigh | | | | Dian Milly, [address] | | | | [address], | | | | [place], [address] | | | | | + + [...] | + + + + + | [id number] | Overweight | | | + + + + + | CPT-50232 | Adm 1st Inj No | | | | | counseling or >18 | | | + + + + + | CPT-79270 | Prevnar 13 | | | | | (Pneumococcal >7 | | | + + + + + | [id number] | Overweight | | | + + + + + | CPT-85266 | Glucose by monitor | | | + + + + + | [id number] | Overweight | | | + + + + + | [id number] | Overweight | | | + + + + + | [id number] | Overweight | | | + + + + + | CPT-79504 | IV infusion -1st hr | | | | | (Rehydration) | | | + + + + + | CPT-82388 | Glucose by monitor | | | + + + + + | CPT-75424 | UA Dipstick | | | + + + + + | CPT-15787 | DAISY Linick | | | + + + + + | CPT-98558 | Initial Psych | | | | | Evaluation | | | + + + + + | CPT-88275 | [facility], [address] or | | | | | more [address] | | | + + + + [...] | + + + + + | CPT-92347 | Trim Skin Lesions | | | | | [address] | | | + + + + + | CPT-06895 | UA Dipstick | | | + + + + + +---+ + | | Order excluded from report: | +---+ + + + + + + | VIT D HYDR 57588 | Vit D, 25 hydroxy | | [...]
[2019-03-25] MEDS ORDERED: LYNPARZA100 MG PO (01:10)
[2019-03-25] MEDS ORDERED: MECLIZINE HCL25 M1 PO (01:10)
[2019-03-25] MEDS ORDERED: PRILOSEC OTC20 MG PO (01:11)
[2019-03-25] MEDS ORDERED: PLAVIX75 MG PO (01:11)
[2019-03-25] MEDS ORDERED: CLONAZEPAM0.5 MG PO (01:12)
[2019-03-25] MEDS ORDERED: LASIX80 MG PO (01:12)
[2019-03-25] MEDS ORDERED: K-TAB ER20 MEQ PO (01:13)
[2019-03-25] MEDS ORDERED: LIPITOR20 MG PO (01:13)
[2019-03-25] MEDS ORDERED: IRBESARTAN300 MG PO (01:14)
[2019-03-25] MEDS ORDERED: GLIPIZIDE ER2.5 MG PO (01:14)
[2019-03-25] MEDS ORDERED: COLACE100 MG PO (01:15)
[2019-03-25] MEDS ORDERED: BASAGLAR K100 UNIT/1 (01:15)
[2019-03-25] MEDS ORDERED: HUMALOG100 UNIT/1 (01:17)
[2019-03-25] MEDS ORDERED: AMOXICILLIN875 MG PO (02:34)
== END 2019-03-25 03:01 | disposition home or self-care (01) ==
LOC: ED 00:47
DX: R04.0 Epistaxis (principal); E11.40 Type 2 diabetes mellitus with diabetic neuropathy, unspecified; I10 Essential (primary) hypertension; Z86.73 Personal history of transient ischemic attack (TIA), and cerebral infarction without residual deficits; Z88.5 Allergy status to narcotic agent; Z79.899 Other long term (current) drug therapy; Z79.4 Long term (current) use of insulin
CPT/HCPCS: 30901; 99283